=== PATIENT | female | born 1940 | race Caucasian/White ===

== ENCOUNTER 2017-05-28 22:27 | Emergency (ER) | payer MEDICARE, OTHER, SELFPAY ==
[2017-05-28 22:28] VITALS: BP 195/93; PULSE 111; RESP 16; TEMP 36.7; O2SAT 95; BMI 31.2
--- NOTE | 2017-05-28 22:53 | CT_ITS ---
STUDY: CT BRAIN WITHOUT CONTRAST REASON FOR EXAM: Female, 77 years old. Hypertension and headache RADIATION DOSAGE (If Supplied By Facility): CTDIvol = ( 44.99 ) mGy, DLP = ( 745.49 ) mGycm TECHNIQUE: Transaxial CT imaging of the brain was performed without administration of intravenous contrast material. Individualized dose optimization techniques were used for this CT. COMPARISON: None. FINDINGS: Normal soft tissue structures. Normal calvarium. Mild calcification of cavernous carotids. Mild atrophy and periventricular white matter ischemic changes.. Normal basal ganglia . Small hypoattenuated density in the right basal ganglia which may be consistent with old lacunar infarct. Normal brainstem. Normal cerebellum. Hypoattenuated appearance to sella turcica consistent with partial empty sella deformity There is no intracranial hemorrhage. There are no findings of an acute ischemic infarction. Postsurgical changes of the orbits. Normal visualized paranasal sinuses. CT/Brain/Head without Contrast IMPRESSION: Mild atrophy and periventricular white matter ischemic changes. Probable old right lacunar infarct. No evidence for acute bleed. If concern for acute infarct MRI recommended Electronically Signed: Elkin Lee MD at 23:27 EST , Service support ,
--- NOTE | 2017-05-28 22:53 | EKG12_ITS ---
Test Reason : HYPERTENSION Blood Pressure : / mmHG Vent. Rate : 103 BPM Atrial Rate : 103 BPM P-R Int : 206 ms QRS Dur : 082 ms QT Int : 332 ms P-R-T Axes : 049 -06 031 degrees QTc Int : 434 ms Sinus tachycardia Otherwise normal ECG Confirmed by VENTURA HUTCHINSON ([id number]), offline editor CHARAN LYNNE ([id number]) on 06/01/2017 9:36:32 AM Referred By: Confirmed By:VENTURA HUTCHINSON
--- NOTE | 2017-05-28 22:58 | NURSING ---
NO OLD EKG'S IN MUSE
[2017-05-28 23:07] LABS: Absolute Lymphocyte Count 0.72 X10^3/ul (0.83-4.51); Absolute Neutrophil Count 5.5 X10^3/uL (2.0-7.7); Basophil# 0.05 X10^3/uL; Basophil% 0.8 % (0-1); Eosinophil# 0.01 X10^3/uL; Eosinophils% 0.2 % (0-5); Hematocrit 44.7 % (37-47); Hemoglobin 14.5 g/dl (12.0-15.0); Lymphocyte # 0.72 X10^3/ul (4.0); Lymphocyte % 11.2 % (19-41); Mean Corp Hgb Conc 32.4 g/gl (32-36); Mean Corpuscular Hgb 31.6 pg (27.0-32.0); Mean Corpuscular Volume 97.4 fL (81-99); Mean Platelet Vol. 9.2 fl (6.2-12.0); Monocyte# 0.16 X10^3/uL; Monocyte% 2.5 % (0-10); Neutrophil # 5.46 X10^3/uL (2.7-7.7); Neutrophil % 85.1 % (47-70); Platelet Count 268 K/mm3 (150-450); RBC Distribution Width CV 13.8 % (11.6-14.6); Red Blood Count 4.59 M/mm3 (4.2-5.4); White Blood Count 6.4 K/mm3 (4.4-11.0)
[2017-05-28 23:08] LABS: POSITIVE COUNT NO; POSITIVE DIFFERENTIAL NO; POSITIVE MORPHOLOGY NO
--- NOTE | 2017-05-28 23:18 | RAD_ITS ---
STUDY: X-RAY CHEST REASON FOR EXAM: Female, 77 years old. Short of breath and dyspnea TECHNIQUE: PA and lateral COMPARISON: None. FINDINGS: The lungs are clear and expanded. There is no demonstrated pleural abnormality. Normal size heart. Normal mediastinum and nidia. Normal visualized pulmonary arteries. Calcified aortic arch and descending thoracic aorta. Mild dextroscoliosis and degenerative changes of the thoracic spine demonstrating multilevel chronic compression deformities.. Normal visualized ribs, clavicles, and shoulders. Postsurgical changes of the upper abdomen. RAD/Chest PA and Lateral IMPRESSION: No acute cardiopulmonary pathology Electronically Signed: Elkin Lee MD at 23:29 EST , Service support ,
[2017-05-28 23:21] LABS: Anion Gap 10 (5-15); BUN 9 mg/dL (7-18); BUN/Creat Ratio 11.1 RATIO (10-20); Chloride 105 mmol/L (98-107); Creatinine, Serum 0.81 mg/dL (0.55-1.02); EST Glomerular Filtration Rate 73 mL/min (>60); Est Glom Filt Rate - Afr Amer 88 mL/min (>60); Estimated Creatinine Clearance 49.43 ml/min; Glucose 137 mg/dL (70-110); Potassium 3.9 mmol/L (3.5-5.1); Sodium Level 140 mmol/L (136-145)
[2017-05-28 23:37] VITALS: BP 177/90; PULSE 96; RESP 20; O2SAT 94
[2017-05-28 23:39] LABS: Bacteria 0 SEEN /hpf (None Seen); Mucous, Urine 0 SEEN /hpf (<or=2+); White Blood Cells 0 SEEN /hpf (0-5)
[2017-05-28 23:41] LABS: Color, Urine Yellow (Yellow); Glucose, Dipstick Normal (Normal); Ketone-Dipstick 5 mg/dl (Negative); Leukocyte Esterase-Dipstick Negative /ul (Negative); Nitrite-Dipstick Negative (Negative); Occult Blood-Urine 10 /ul (Negative); Protein-Dipstick Negative (Negative); Urine Bilirubin Dipstick Negative (Negative); Urine Clarity Sl. Cloudy (Clear); Urine Urobilinogen Normal (Normal)
[2017-05-28 23:50] LABS: Red Blood Cells-Urine 0-5 SEEN /hpf (0-5); Squamous Epithelial Cells - UA 0-5 SEEN /hpf (5-10)
[2017-05-29 00:08] VITALS: BP 137/62; PULSE 87; RESP 20; O2SAT 96
--- NOTE | 2017-05-29 00:17 | ED.VISSUMM ---
- ER Visit Summary Date of Service: 05/29/17 Chief Complaint: Hypertension History of Present Illness: The patient is a 77 F who had a pain block this morning secondary to shingles pain. Patient states her blood pressure was elevated prior to the procedure but they went ahead and did the procedure. After arriving home her systolic pressure had come down to 144. She has checked her blood pressure multiple times tonight and it is been quite elevated again. She is complaining of a mild frontal headache and shortness of breath. Patient recently moved to this area from [place]. She does state that she would have episodes previously where her blood pressure was suddenly spiked. No definitive cause for this was ever found. Physical Examination: Blood pressure is 195/93, temperature 98.0, heart rate 111, respiratory rate 16, pulse ox 95% on room air. Patient sitting upright in bed no acute distress. Head and neck examination is normal. Heart is regular rate and rhythm. Lung sounds are clear. Abdomen is soft nontender. Neuro exam was normal with an NIH score of 0. Test Results: EKG is sinus tach at 103. No acute ischemia is noted. Two-view chest x-ray shows no acute pathology. CT the head shows mild atrophy. There is a probable old right lacunar infarct. CBC is normal. Chemistry studies are normal. Urinalysis normal with no protein. Troponin negative. Emergency Department Course and Treatment: Patient was observed. Repeat blood pressure is 137/62 without any intervention. Patient was advised to continue to monitor her blood pressure at home. Treatment Plan: [] Disposition: Discharge Impression: Hypertension, improved This note was generated with [employer] dictation software. It may contain incorrect words, spelling, and punctuation that were not noted in review of the chart prior to signing ED Disposition - Plan for ED Patient: Disposition: Home or Assisted Living Chief Complaint: Hypertension Instructions: ED HTN Established Referrals: Bjorn Soares MD [Primary Care Provider] - Morro Aguilera MD [STAFF PHYSICIAN] - As soon as possible
[2017-05-29 00:27] VITALS: BP 144/72; PULSE 87; RESP 20; O2SAT 95
== END 2017-05-29 00:27 | disposition home or self-care (01) ==
PROVIDERS: Emergency Provider Emergency Medicine; Family Provider Family Medicine; PCP Family Medicine
DX: I10 Essential (primary) hypertension (principal); R29.700 NIHSS score 0; I49.3 Ventricular premature depolarization; R01.1 Cardiac murmur, unspecified; Z90.89 Acquired absence of other organs; Z90.49 Acquired absence of other specified parts of digestive tract; Z90.710 Acquired absence of both cervix and uterus; Z87.891 Personal history of nicotine dependence; Z79.82 Long term (current) use of aspirin; Z79.899 Other long term (current) drug therapy
CPT/HCPCS: 70450; 71046; 80048; 81001; 84484; 85025; 93005; 99285; A4216

== ENCOUNTER → 2017-07-29 10:01 | Outpatient (CLI) | payer MEDICARE, OTHER, SELFPAY ==
[2017-07-29 10:10] VITALS: BP 144/74; PULSE 89; RESP 16; TEMP 36.6; O2SAT 94; BMI 28.3
== END ==
PROVIDERS: Family Provider Family Medicine; PCP Family Medicine; Visit Provider Specialist
DX: L50.0 Allergic urticaria (principal)
CPT/HCPCS: 96372; J2357

== ENCOUNTER → 2017-08-26 13:00 | Outpatient (CLI) | payer MEDICARE, OTHER, SELFPAY ==
[2017-08-26 13:03] VITALS: BP 117/53; PULSE 85; RESP 16; TEMP 36.4; O2SAT 96; BMI 29.2
== END ==
PROVIDERS: Family Provider Family Medicine; PCP Family Medicine; Visit Provider Specialist
DX: L50.0 Allergic urticaria (principal)
CPT/HCPCS: 96372; J2357

== ENCOUNTER 2017-09-03 17:00 | Emergency (ER) | payer MEDICARE, OTHER, SELFPAY ==
[2017-09-03 17:01] VITALS: BP 148/77; PULSE 74; RESP 16; TEMP 36.6; O2SAT 95; BMI 29.4
--- NOTE | 2017-09-03 17:14 | ED.VISSUMM ---
- ER Visit Summary Date of Service: 09/03/17 Chief Complaint: [Head injury] History of Present Illness: The patient is a 77 F [presents the emergency department with a head injury that occurred approximately 3:30 PM. Patient states that she was on a two-step stepstool cleaning some windows when she lost her balance and struck her head on the wall. Patient did not hit her head on the floor. Patient did not have loss of consciousness. Patient denies any nausea or vomiting. Patient really has no head pain other than intermittently she will get like a wave of a funny feeling in her head she states. Patient states that she is nervous and just wanted somebody to tell her that she was going to be okay being that she had a concussion a year ago. Patient drove herself to the emergency department and had no difficulty driving.] Physical Examination: HEENT-PERRLA, EOMI. Cranial nerves II through XII grossly intact. TMs clear. Mucous membranes moist. No adenopathy. No external evidence of trauma to her head or scalp. Patient has no tenderness to her scalp. No bony step-offs noted. Cardiovascular-regular rate and rhythm without murmur or ectopy Lungs-clear to auscultation, chest wall stable without crepitus or subcu emphysema Abdomen-normoactive bowel sounds, soft, nontender, no rebound or rigidity, no peritoneal signs. Neuro orzy-akpoxs-tawq and heel calhoun testing within normal limits, negative Romberg, negative pronator drift, fundi benign Extremities-intact ?4, normal range of motion, normal pulses, atraumatic[] Test Results: [None indicated] Emergency Department Course and Treatment: [At this point I reassured the patient felt her injury was benign as she is essentially asymptomatic and I do not feel imaging is indicated at this time.] Treatment Plan: [Patient advised to return if vomiting, severe headache, difficulty with balance, or speech, or condition should worsen in any way.] Disposition: [Discharged home in stable condition] Impression: [Closed head injury] This note was generated with [employer] dictation software. It may contain incorrect words, spelling, and punctuation that were not noted in review of the chart prior to signing ED Disposition - Plan for ED Patient: Chief Complaint: Head Injury Referrals: Bjorn Soares MD [Primary Care Provider] -
--- NOTE | 2017-09-03 17:16 | ED.DEP ---
ED Disposition - Plan for ED Patient: Chief Complaint: Head Injury Instructions: ED Head Injury Closed Referrals: Bjorn Soares MD [Primary Care Provider] - 3-5 Days
== END 2017-09-03 17:35 | disposition home or self-care (01) ==
LOC: ED 17:20
PROVIDERS: Emergency Provider Emergency Medicine; Family Provider Family Medicine; PCP Family Medicine
DX: S09.90XA Unspecified injury of head, initial encounter (principal); W22.01XA Walked into wall, initial encounter; Y93.9 Activity, unspecified; Y92.9 Unspecified place or not applicable; I10 Essential (primary) hypertension; Z90.89 Acquired absence of other organs; Z90.49 Acquired absence of other specified parts of digestive tract; Z90.710 Acquired absence of both cervix and uterus; Z79.82 Long term (current) use of aspirin; Z79.899 Other long term (current) drug therapy
CPT/HCPCS: 99282

== ENCOUNTER → 2017-09-23 11:37 | Outpatient (CLI) | payer MEDICARE, OTHER, SELFPAY ==
[2017-09-23 11:55] VITALS: BP 113/63; PULSE 84; RESP 18; TEMP 37; BMI 28.5
== END ==
PROVIDERS: Family Provider Family Medicine; PCP Family Medicine; Visit Provider Specialist
DX: L50.0 Allergic urticaria (principal)
CPT/HCPCS: 96372; J2357

== ENCOUNTER → 2017-10-21 13:30 | Outpatient (CLI) | payer MEDICARE, OTHER, SELFPAY ==
[2017-10-21 13:38] VITALS: BP 109/49; PULSE 80; RESP 16; TEMP 36.9; O2SAT 94
== END ==
PROVIDERS: Family Provider Family Medicine; PCP Family Medicine; Visit Provider Specialist
DX: L50.0 Allergic urticaria (principal)
CPT/HCPCS: 96372; J2357

== ENCOUNTER → 2017-11-18 12:32 | Outpatient (CLI) | payer MEDICARE, OTHER, SELFPAY ==
[2017-11-18 12:42] VITALS: BP 133/64; PULSE 63; RESP 16; TEMP 36.3; O2SAT 93; BMI 29.2
== END ==
PROVIDERS: Family Provider Family Medicine; PCP Family Medicine; Visit Provider Specialist
DX: L50.0 Allergic urticaria (principal)
CPT/HCPCS: 96372; J2357

== ENCOUNTER → 2017-12-16 11:53 | Outpatient (CLI) | payer MEDICARE, OTHER, SELFPAY ==
[2017-12-16 12:06] VITALS: BP 125/55; PULSE 80; RESP 16; TEMP 36.6; O2SAT 97; BMI 29.2
== END ==
PROVIDERS: Family Provider Family Medicine; PCP Family Medicine; Visit Provider Specialist
DX: L50.0 Allergic urticaria (principal)
CPT/HCPCS: 96372; J2357

== ENCOUNTER → 2018-01-13 12:53 | Outpatient (CLI) | payer MEDICARE, OTHER, SELFPAY ==
[2018-01-13 13:03] VITALS: BP 128/61; PULSE 79; RESP 18; TEMP 36.6; O2SAT 94; BMI 28.8
== END ==
PROVIDERS: Family Provider Family Medicine; PCP Internal Medicine; Visit Provider Specialist
DX: L50.0 Allergic urticaria (principal)
CPT/HCPCS: 96372; J2357

== ENCOUNTER → 2018-02-10 12:44 | Outpatient (CLI) | payer MEDICARE, OTHER, SELFPAY ==
[2018-02-10 12:50] VITALS: BP 116/89; PULSE 79; RESP 18; TEMP 36.6; O2SAT 95
== END ==
PROVIDERS: Family Provider Internal Medicine; PCP Internal Medicine; Referring Provider Specialist; Visit Provider Specialist
DX: L50.0 Allergic urticaria (principal)
CPT/HCPCS: 96372; J2357

== ENCOUNTER → 2018-03-10 12:59 | Outpatient (CLI) | payer MEDICARE, OTHER, SELFPAY ==
[2018-03-10 13:07] VITALS: BP 134/71; PULSE 74; RESP 16; TEMP 36.4; O2SAT 94; BMI 28.8
== END ==
PROVIDERS: Family Provider Internal Medicine; PCP Internal Medicine; Referring Provider Specialist; Visit Provider Specialist
DX: L50.0 Allergic urticaria (principal)
CPT/HCPCS: 96372; J2357

== ENCOUNTER → 2018-04-11 12:49 | Outpatient (CLI) | payer MEDICARE, OTHER, SELFPAY ==
[2018-04-11 13:15] VITALS: BP 139/68; PULSE 85; RESP 16; TEMP 36.8; O2SAT 95; BMI 28.1
== END ==
PROVIDERS: Family Provider Internal Medicine; PCP Internal Medicine; Referring Provider Specialist; Visit Provider Specialist
DX: L50.0 Allergic urticaria (principal)
CPT/HCPCS: 96372; J2357

== ENCOUNTER → 2018-05-09 13:05 | Outpatient (CLI) | payer MEDICARE, OTHER, SELFPAY ==
[2018-04-11 13:15] VITALS: BMI 28.1
[2018-05-09 13:31] VITALS: BP 141/64; PULSE 90; RESP 18; TEMP 36.3; BMI 27.3
== END ==
PROVIDERS: Family Provider Internal Medicine; PCP Internal Medicine; Referring Provider Specialist; Visit Provider Specialist
DX: L50.0 Allergic urticaria (principal)
CPT/HCPCS: 96372; J2357

== ENCOUNTER → 2018-06-06 13:59 | Outpatient (CLI) | payer MEDICARE, OTHER, SELFPAY ==
[2018-05-09 13:31] VITALS: BMI 27.3
[2018-06-06 14:09] VITALS: BP 139/62; PULSE 95; RESP 16; TEMP 36.3; O2SAT 97; BMI 28.1
== END ==
PROVIDERS: Family Provider Internal Medicine; PCP Internal Medicine; Referring Provider Specialist; Visit Provider Specialist
DX: L50.0 Allergic urticaria (principal)
CPT/HCPCS: 96372; J2357

== ENCOUNTER → 2018-07-05 11:03 | Outpatient (CLI) | payer MEDICARE, OTHER, SELFPAY ==
[2018-06-06 14:09] VITALS: BMI 28.1
[2018-07-05 11:13] VITALS: BP 139/53; PULSE 78; RESP 16; TEMP 36.6; O2SAT 96; BMI 28.3
== END ==
PROVIDERS: Family Provider Internal Medicine; PCP Internal Medicine; Referring Provider Specialist; Visit Provider Specialist
DX: L50.0 Allergic urticaria (principal)
CPT/HCPCS: 96372; J2357

== ENCOUNTER → 2018-08-09 12:56 | Outpatient (CLI) | payer MEDICARE, OTHER, SELFPAY ==
[2018-07-05 11:13] VITALS: BMI 28.3
[2018-08-09 13:02] VITALS: BP 132/56; PULSE 77; RESP 16; TEMP 36.8; O2SAT 96; BMI 27.6
== END ==
PROVIDERS: Family Provider Internal Medicine; PCP Internal Medicine; Referring Provider Specialist; Visit Provider Specialist
DX: L50.0 Allergic urticaria (principal)
CPT/HCPCS: 96372; J2357

== ENCOUNTER → 2018-09-12 | Outpatient (CLI) | payer MEDICARE, OTHER, SELFPAY ==
[2018-08-09 13:02] VITALS: BMI 27.6
[2018-09-12 14:34] VITALS: BP 119/52; PULSE 86; RESP 16; TEMP 36.1; O2SAT 98; BMI 27.4
== END | disposition home or self-care (01) ==
LOC: MEDOUTP 14:27
PROVIDERS: Family Provider Internal Medicine; PCP Internal Medicine; Referring Provider Specialist; Visit Provider Specialist
DX: L50.0 Allergic urticaria (principal)
CPT/HCPCS: 96372; J2357

== ENCOUNTER → 2018-10-07 | Outpatient (CLI) | payer MEDICARE, OTHER, SELFPAY ==
[2018-10-05 08:32] VITALS: BMI 28.6
[2018-10-07 12:33] LABS: AST(SGOT) 19 U/L (15-37); Alanine Aminotransfer ALT/SGPT 22 U/L (13-56); Albumin, Serum 3.5 g/dL (3.2-5.0); Alkaline Phosphatase 80 U/L (45-117); Bilirubin, Direct 0.16 mg/dL (0.00-0.30); Cholesterol 151 mg/dL (200); Globulin 3.6 g/dL (2.2-4.2); High Density Lipoprotein 57 mg/dL; Protein, Total 7.1 g/dL (6.4-8.2); Triglycerides 97 mg/dL; Very Low Density Lipoprotein 19 mg/dL (5-40)
== END | disposition home or self-care (01) ==
LOC: LAB 10:53
PROVIDERS: Family Provider Family Medicine; PCP Family Medicine; Referring Provider Internal Medicine Cardiovascular Disease; Visit Provider Internal Medicine Cardiovascular Disease
DX: E78.5 Hyperlipidemia, unspecified (principal)
CPT/HCPCS: 36415; 80061; 80076

== ENCOUNTER → 2018-10-11 | Outpatient (CLI) | payer MEDICARE, OTHER, SELFPAY ==
[2018-09-12 14:34] VITALS: BMI 27.4
[2018-10-05 08:32] VITALS: BMI 28.6
[2018-10-11 14:01] VITALS: BP 130/55; PULSE 79; RESP 18; TEMP 36.6; O2SAT 95; BMI 28.3
== END | disposition home or self-care (01) ==
LOC: MEDOUTP 13:55
PROVIDERS: Family Provider Internal Medicine; PCP Internal Medicine; Referring Provider Specialist; Visit Provider Specialist
DX: L50.0 Allergic urticaria (principal)
CPT/HCPCS: 96372; J2357

== ENCOUNTER 2018-10-18 19:21 | Emergency (ER) | payer MEDICARE, OTHER, SELFPAY ==
[2018-10-11 14:01] VITALS: BMI 28.3
[2018-10-18 19:22] VITALS: BP 145/85; PULSE 115; RESP 18; TEMP 36.4; O2SAT 94; BMI 28.8
--- NOTE | 2018-10-18 19:51 | CT_ITS ---
STUDY: CT BRAIN WITHOUT CONTRAST REASON FOR EXAM: Female, 78 years old. Trauma RADIATION DOSAGE (If Supplied By Facility): CTDIvol = ( 44.99 ) mGy, DLP = ( 745.49 ) mGycm TECHNIQUE: Transaxial CT imaging of the brain was performed without administration of intravenous contrast material. Individualized dose optimization techniques were used for this CT. COMPARISON: Previous study 05/28/2017 FINDINGS: Normal soft tissue structures. Normal calvarium. Normal size ventricles and extra-axial spaces for the patient's age. Normal white matter tracts of the cerebral hemispheres. There is an old lacunar infarct of the right basal ganglia. Normal brainstem. Normal cerebellum. There is no intracranial hemorrhage. There are no findings of an acute ischemic infarction. Normal visualized paranasal sinuses. CT/Brain/Head without Contrast IMPRESSION: Old lacunar infarct of the right basal ganglia. There is no intracranial hemorrhage or calvarial fracture. Electronically Signed: Crescencio Munoz MD at 20:37 EDT , Service support ,
--- NOTE | 2018-10-18 19:51 | CT_ITS ---
STUDY: CT CERVICAL SPINE WITHOUT CONTRAST REASON FOR EXAM: Female, 78 years old. Trauma RADIATION DOSAGE (If Supplied By Facility): CTDIvol = ( 21.23 ) mGy, DLP = ( 388.31 ) mGycm TECHNIQUE: High resolution transaxial imaging was performed without contrast material. Sagittal and coronal images were reconstructed. Individualized dose optimization techniques were used for this CT. COMPARISON: None FINDINGS: Normal craniovertebral junction. There are degenerative changes of the anterior atlantoaxial articulation. Normal odontoid process. There is straightening of the normal cervical lordosis. There is endplate spondylosis of C5-C7. C2-3: There are degenerative facet changes on the right. There is no central canal stenosis or foraminal narrowing. Disc spacing is normal. C3-4: There are hypertrophic degenerative facet changes on the left with moderately severe left foraminal narrowing. Disc spacing is normal. There is no central canal stenosis. C4-5: There are bilateral hypertrophic facet changes. There is mild disc space narrowing. There is mild bilateral foraminal narrowing. There is no central canal stenosis. C5-6: There is severe disc space narrowing. The facets are within normal limits. There is severe foraminal narrowing on the left. There is no central canal stenosis. C6-7: There is severe disc space narrowing. There are mild bilateral degenerative facet changes. There is moderately severe foraminal narrowing on the right. There is no central canal stenosis. C7-T1: There are mild bilateral degenerative facet changes. There is no central canal stenosis or foraminal narrowing. Normal visualized soft tissue structures. CT/Spine Cervical without Contras IMPRESSION: Multilevel degenerative changes, as described above. There is no evidence of fracture or subluxation. Electronically Signed: Crescencio Munoz MD at 20:47 EDT , Service support ,
--- NOTE | 2018-10-18 19:52 | ED.DCSUM_ITS ---
- ER Visit Summary Date of Service: 10/18/18 Chief Complaint: Fall History of Present Illness: The patient is a 78 F who presents after a fall that occurred today. Patient fell off of a stool and hit her head. Patient denies any loss of consciousness. Patient states she hit her neck on the leg of the table. Patient denies any paresthesias or weakness. Patient was ambulatory after the fall. Patient describes the pain as a dull pain in her head and neck. Patient denies any nausea or vomiting. Patient denies any paresthesias or weakness. Patient denies any visual changes. Vision states she has had concussions in the past and is concerned with a head injury. Physical Examination: Vital signs are stable. Patient is afebrile. Patient is in no acute distress. Oral mucosa is pink and moist. Neck is supple. Trachea is midline. There is no JVD noted. Pupils are equal, round, and reactive to light. Extraocular muscles are intact. There is no nystagmus noted. Cranial nerves II through XII are intact. Strength is 5/5 bilateral knee upper and lower extremities. There are no sensory deficits noted. Heart was regular rate and rhythm. There is a grade 3/6 systolic murmur. Lungs are clear and equal bilateral. Abdomen is soft and nontender. Test Results: CT scan of the brain and cervical spine were obtained. There is no acute intracranial abnormality noted. There is no cervical spine fracture or subluxation noted. Emergency Department Course and Treatment: Patient was instructed to get plenty of rest. Patient was instructed to take Tylenol or ibuprofen as needed for headaches. Patient was instructed to follow-up with her primary care physician in 5 to 7 days. Patient understood and was agreeable with the plan. All questions were answered. Disposition: Discharge home Impression: 1. Closed head injury 2. Acute cervical strain This note was generated with [employer] dictation software. It may contain incorrect words, spelling, and punctuation that were not noted in review of the chart prior to signing ED Disposition - Plan for ED Patient: Disposition: Home or Assisted Living Diagnosis: Closed head injury, Cervical strain, acute Instructions: FALL, Mechanical, HEAD INJURY, No Wake-Up (Adult) Referrals: Bjorn Soares MD [Primary Care Provider] - 5-7 Days
[2018-10-18 21:33] VITALS: BP 102/62; PULSE 91; RESP 16; O2SAT 98
== END 2018-10-18 21:34 | disposition home or self-care (01) ==
PROVIDERS: Emergency Provider Emergency Medicine; Family Provider Family Medicine; PCP Family Medicine
DX: S09.90XA Unspecified injury of head, initial encounter (principal); S16.1XXA Strain of muscle, fascia and tendon at neck level, initial encounter; R01.1 Cardiac murmur, unspecified; W08.XXXA Fall from other furniture, initial encounter; Y93.9 Activity, unspecified; Y92.9 Unspecified place or not applicable; I10 Essential (primary) hypertension; Z79.899 Other long term (current) drug therapy
CPT/HCPCS: 70450; 72125; 99282

== ENCOUNTER → 2018-11-08 | Outpatient (CLI) | payer MEDICARE, OTHER, SELFPAY ==
[2018-10-11 14:01] VITALS: BMI 28.3
[2018-10-18 19:22] VITALS: BMI 28.8
[2018-11-08 15:31] VITALS: BP 115/53; PULSE 76; RESP 16; TEMP 36.8; O2SAT 97; BMI 27.6
== END | disposition home or self-care (01) ==
LOC: MEDOUTP 15:25
PROVIDERS: Family Provider Internal Medicine; PCP Internal Medicine; Referring Provider Specialist; Visit Provider Specialist
DX: L50.0 Allergic urticaria (principal)
CPT/HCPCS: 96372; J2357

== ENCOUNTER → 2018-12-06 | Outpatient (CLI) | payer MEDICARE, OTHER, SELFPAY ==
[2018-11-08 15:31] VITALS: BMI 27.6
[2018-12-06 14:58] VITALS: BP 136/57; PULSE 78; RESP 16; TEMP 36.6; O2SAT 98; BMI 27.3
== END | disposition home or self-care (01) ==
LOC: MEDOUTP 14:41
PROVIDERS: Family Provider Internal Medicine; PCP Internal Medicine; Referring Provider Specialist; Visit Provider Specialist
DX: L50.0 Allergic urticaria (principal)
CPT/HCPCS: 96372; J2357

== ENCOUNTER → 2018-12-26 | Outpatient (CLI) | payer MEDICARE, OTHER, SELFPAY ==
[2018-12-26 14:05] VITALS: BMI 27.3
[2018-12-26 15:33] LABS: Absolute Lymphocyte Count 1.31 X10^3/uL (0.83-4.51); Absolute Neutrophil Count 3.1 X10^3/uL (2.0-7.7); Basophil# 0.08 X10^3/uL; Basophil% 1.4 % (0-1); Eosinophil# 0.55 X10^3/uL; Eosinophils% 9.6 % (0-5); Hematocrit 42.9 % (37-47); Hemoglobin 14.5 g/dL (12.0-15.0); Lymphocyte # 1.31 X10^3/ul (4.0); Lymphocyte % 22.8 % (19-41); Mean Corp Hgb Conc 33.8 g/dL (32-36); Mean Corpuscular Hgb 31.5 pg (27.0-32.0); Mean Corpuscular Volume 93.1 fL (81-99); Mean Platelet Vol. 9.4 fl (6.2-12.0); Monocyte# 0.64 X10^3/uL; Monocyte% 11.1 % (0-10); NRBC Flagged by Analyzer 0 % (0-5); Neutrophil # 3.14 X10^3/uL (2.7-7.7); Neutrophil % 54.8 % (47-70); Platelet Count 255 K/mm3 (150-450); RBC Distribution Width CV 13.1 % (11.6-14.6); RBC Distribution Width SD 44.6 fl (35.1-43.9); Red Blood Count 4.61 M/mm3 (4.2-5.4); White Blood Count 5.7 K/mm3 (4.4-11.0)
[2018-12-26 15:52] LABS: Thyroid Stim Hormone (TSH) 0.85 uIU/mL (0.358-3.74)
== END | disposition home or self-care (01) ==
LOC: PAVLAB 14:38
PROVIDERS: Nurse Practitioner Women's Health; Family Provider Family Medicine; PCP Family Medicine; Referring Provider Obstetrics & Gynecology; Visit Provider Obstetrics & Gynecology
DX: R23.2 Flushing (principal)
CPT/HCPCS: 36415; 84443; 85025

== ENCOUNTER → 2019-01-03 | Outpatient (CLI) | payer MEDICARE, OTHER, SELFPAY ==
[2018-12-06 14:58] VITALS: BMI 27.3
[2018-12-26 14:05] VITALS: BMI 27.3
[2019-01-03 14:06] VITALS: BP 125/65; PULSE 89; RESP 16; TEMP 36.8; O2SAT 94; BMI 28.3
== END | disposition home or self-care (01) ==
LOC: MEDOUTP 13:59
PROVIDERS: Family Provider Internal Medicine; PCP Internal Medicine; Referring Provider Specialist; Visit Provider Specialist
DX: L50.0 Allergic urticaria (principal)
CPT/HCPCS: J2357

== ENCOUNTER → 2019-01-31 12:49 | Outpatient (CLI) | payer MEDICARE, OTHER, SELFPAY ==
[2019-01-03 14:06] VITALS: BMI 28.3
[2019-01-31 13:15] VITALS: BP 143/80; PULSE 69; RESP 16; O2SAT 98; BMI 28.0
== END ==
PROVIDERS: Family Provider Internal Medicine; PCP Internal Medicine; Referring Provider Specialist; Visit Provider Specialist
DX: L50.0 Allergic urticaria (principal)
CPT/HCPCS: 96372; J2357

== ENCOUNTER → 2019-02-28 12:56 | Outpatient (CLI) | payer MEDICARE, OTHER, SELFPAY ==
[2019-01-31 13:15] VITALS: BMI 28.0
[2019-02-28 13:06] VITALS: BP 129/80; PULSE 80; RESP 16; TEMP 36.6; O2SAT 95; BMI 29.2
== END ==
PROVIDERS: Family Provider Internal Medicine; PCP Internal Medicine; Referring Provider Specialist; Visit Provider Specialist
DX: L50.0 Allergic urticaria (principal)
CPT/HCPCS: 96372; J2357

== ENCOUNTER → 2019-03-28 13:01 | Outpatient (CLI) | payer MEDICARE, OTHER, SELFPAY ==
[2019-02-28 13:06] VITALS: BMI 29.2
[2019-03-28 13:10] VITALS: BP 140/66; PULSE 81; RESP 16; TEMP 36.8; BMI 28.3
== END ==
PROVIDERS: Family Provider Internal Medicine; PCP Internal Medicine; Referring Provider Specialist; Visit Provider Specialist
DX: L50.0 Allergic urticaria (principal)
CPT/HCPCS: 96372; J2357

== ENCOUNTER → 2019-04-27 12:56 | Outpatient (CLI) | payer MEDICARE, OTHER, SELFPAY ==
[2019-03-28 13:10] VITALS: BMI 28.3
[2019-04-27 13:01] VITALS: BP 151/72; PULSE 83; RESP 18; TEMP 36.3; BMI 27.4
== END ==
PROVIDERS: Family Provider Internal Medicine; PCP Internal Medicine; Referring Provider Specialist; Visit Provider Specialist
DX: L50.0 Allergic urticaria (principal)
CPT/HCPCS: 96372; J2357

== ENCOUNTER → 2019-05-17 14:00 | Outpatient (CLI) | payer MEDICARE, OTHER, SELFPAY ==
[2019-04-27 13:01] VITALS: BMI 27.4
[2019-05-16 11:42] VITALS: BMI 28.6
--- NOTE | 2019-05-17 14:04 | MRI_ITS ---
STUDY: MRI BRAIN WITH AND WITHOUT CONTRAST REASON FOR EXAM: Female, 79 years old. VISUAL FIELD DEFECT RIGHT EYE TECHNIQUE: Standardized multiplanar fat and water weighted pulse sequences were obtained. IV Dotarem 15ml was administered for the contrast portion of the examination. COMPARISON: CT BRAIN-May 28, 2017; CT BRAIN-October 18, 2017 FINDINGS: Normal size of the ventricles and extra-axial spaces for the patient''s age. There are a limited number of small white matter hyperintensities, distributed throughout the deep white matter tracts of the cerebral hemispheres, consistent with mild chronic white matter ischemic changes. There is confluent periventricular hyperintensity cloaking the lateral ventricles, consistent with periventricular leukoaraiosis. There is no evidence for recent intracranial ischemia or other cause of cytotoxic edema on diffusion weighted imaging (DWI). Normal T2* images of the brain without demonstrated susceptibility artifact. There is no demonstrated hemosiderin stain. There is a prominent perivascular spaces (PVS) involving the right basal ganglia, measuring 8 mm, which has been interpreted on the prior CT examinations of May 28, 2017 and October 18, 2018 as lacunar infarction. Normal thalami. There is no extra-axial fluid accumulation. Normal flow voids within the major intracranial circulation suggesting patency by spin echo criteria. Normal venous enhancement. There is no enhancing intra-axial or extra-axial abnormality. Normal sella turcica, pituitary gland, infundibular stalk, optic chiasm and hypothalamus. Normal tectal plate and pineal gland. Normal midbrain, mary and medulla. Normal cerebellum. Normal basal cisterns. Normal bilateral temporal bones. Normal bilateral internal auditory canals. There are bilateral ocular lens implants with otherwise normal intraorbital contents. Normal optic nerve sheath complex with normal intraconal and extraconal spaces. Normal visualized paranasal sinuses. Normal calvarium and skull base. Normal visualized soft tissue structures. Normal visualized upper cervical spine. MRI/Brain W/WO Contrast IMPRESSION: 1. Minimal small vessel disease of the supratentorial brain. 2. Prominent perivascular space of the right basal ganglia, which is been interpreted as a lacunar infarction on the prior CT examinations of May 28, 2017 and October 18, 2018. 3. No acute, evolving or remote cortical or lacunar infarction. 4. Status post bilateral ocular lens implants. Electronically Signed: Eliu Starkey DO at 16:34 EST Tel , Service support ,
[2019-05-17 14:40] LABS: CREATININE FINGERSTICK 0.7 mg/dL (0.55-1.02)
== END ==
PROVIDERS: Family Provider Internal Medicine; PCP Internal Medicine; Referring Provider Ophthalmology; Visit Provider Ophthalmology
DX: H53.40 Unspecified visual field defects (principal)
CPT/HCPCS: 70553; A9575

== ENCOUNTER → 2019-05-25 12:54 | Outpatient (CLI) | payer MEDICARE, OTHER, SELFPAY ==
[2019-04-27 13:01] VITALS: BMI 27.4
[2019-05-16 11:42] VITALS: BMI 28.6
[2019-05-25 13:01] VITALS: BP 121/68; PULSE 86; RESP 16; TEMP 36.7; BMI 26.6
== END ==
PROVIDERS: Family Provider Internal Medicine; PCP Internal Medicine; Referring Provider Specialist; Visit Provider Specialist
DX: L50.0 Allergic urticaria (principal)
CPT/HCPCS: 96372; J2357

== ENCOUNTER → 2019-06-21 13:01 | Outpatient (CLI) | payer MEDICARE, OTHER, SELFPAY ==
[2019-05-16 11:42] VITALS: BMI 28.6
[2019-05-25 13:01] VITALS: BMI 26.6
[2019-06-21 13:05] VITALS: BP 111/64; PULSE 68; RESP 16; TEMP 36.6; O2SAT 98; BMI 27.4
== END ==
PROVIDERS: PCP Internal Medicine; Referring Provider Specialist; Visit Provider Specialist
DX: L50.0 Allergic urticaria (principal)
CPT/HCPCS: 96372; J2357

== ENCOUNTER 2019-07-17 16:18 | Emergency (ER) | payer MEDICARE, OTHER, SELFPAY ==
[2019-06-21 13:05] VITALS: BMI 27.4
[2019-07-17 16:19] VITALS: BP 150/83; PULSE 91; RESP 18; TEMP 36.9; O2SAT 99; BMI 28.3
--- NOTE | 2019-07-17 16:27 | RAD_ITS ---
STUDY: X-RAY - LEFT WRIST REASON FOR EXAM: Female, 79 years old. FALL, PAIN TECHNIQUE: 3 view(s) of the wrist were obtained. COMPARISON: None. FINDINGS: Normal visualized distal radius and ulna. Normal radiocarpal articulation. Normal distal radioulnar articulation. Normal carpal bones. Normal carpal articulations. Normal carpometacarpal articulation of the thumb. Normal second through fifth carpometacarpal articulations. Normal visualized metacarpal bones. The soft tissue structures are unremarkable. RAD/Wrist min 3 Views IMPRESSION: Normal x-ray examination of the wrist. Electronically Signed: Elkin Lee MD at 18:09 EDT , Service support ,
--- NOTE | 2019-07-17 16:27 | CT_ITS ---
STUDY: CT BRAIN WITHOUT CONTRAST REASON FOR EXAM: Female, 79 years old. FALL, HIT TOP OF HEAD RADIATION DOSAGE (If Supplied By Facility): CTDIvol = ( 44.99 ) mGy, DLP = ( 779.24 ) mGycm TECHNIQUE: Transaxial CT imaging of the brain was performed without administration of intravenous contrast material. Individualized dose optimization techniques were used for this CT. COMPARISON: October 18, 2018. FINDINGS: Normal soft tissue structures. Normal calvarium. Calcification of cavernous carotids. Mild atrophy and moderate periventricular white matter ischemic changes. Prominent perivascular space in the right medial temporal lobe Normal basal ganglia and thalami. Normal brainstem. Normal cerebellum. Empty sella deformity likely of no significance There is no intracranial hemorrhage. There are no findings of an acute ischemic infarction. There are postsurgical changes of the orbits Normal visualized paranasal sinuses. CT/Brain/Head without Contrast IMPRESSION: Moderate periventricular white matter ischemic changes. No evidence for acute intracranial bleed Electronically Signed: Elkin Lee MD at 17:47 EDT , Service support ,
--- NOTE | 2019-07-17 16:27 | RAD_ITS ---
STUDY: X-RAY - PELVIS AND LEFT HIP REASON FOR EXAM: Female, 79 years old. FALL, PAIN TECHNIQUE: 3 views of the pelvis and hip. COMPARISON: None. FINDINGS: There is a non-specific bowel gas pattern. Normal visualized soft tissue structures. Normal bilateral iliac wings, sacroiliac joints and visualized sacrum. Normal bilateral superior and inferior pubic rami. Normal pubic symphysis. Normal bilateral ischial tuberosities. Normal visualized femoral head. Mild acetabular spurring Normal hip joint. RAD/HIP, UNI W/ Pelvis 2-3 Views IMPRESSION: Mild degenerative changes of the left hip. No evidence for acute hip or pelvic fracture Electronically Signed: Elkin Lee MD at 18:06 EDT , Service support ,
--- NOTE | 2019-07-17 16:38 | ED.DCSUM_ITS ---
History of Present Illness Chief Complaint: Fall Informant: Patient Onset: Today Context: Sudden Onset Timing: Continuous Current Severity: Moderate Maximum Severity: Moderate Narrative: The patient is an 79-year-old female that presents to the emergency department with head injury status post mechanical fall. Patient states that she was in her home. She states she got up quickly to do something, lost her balance, and fell. She struck her head against the wall but did not lose consciousness. She also struck her left wrist and right hip. She has been able to ambulate. She denies any weakness, numbness, or lightheadedness. She denies any nausea or vomiting. She is not on anticoagulants. She did not lose consciousness. She is otherwise been in her normal state of health. Prior similar symptoms: No Recent Illness/Hospitalization: No Past Medical History - Allergies and Home Meds Allergies/Adverse Reactions: Allergies oxycodone [From Percocet] Adverse Reaction (Verified 07/17/19 16:19) Upset Stomach Primary Care Physician: Morro Aguilera MD [Primary Care Provider] - Prior records reviewed: Yes Past Medical History: - - Hypertension, hyperlipidemia Surgical History: noncontributory Smoking Status: Former smoker Review of Systems General: Denies: Chills, Fever, Sweats Eyes: Denies: Visual changes - bilaterally, Diplopia ENT: Denies: Rhinorrhea, Sore throat Cardiovascular: Denies: Chest pain, Palpitations Respiratory: Denies: Dyspnea, Cough, Dyspnea on exertion Gastrointestinal: Denies: Abdominal pain, Nausea, Vomiting, Diarrhea, Melena, Hematochezia Genitourinary: Denies: Dysuria, Hematuria, Frequency Musculoskeletal: Denies: Back pain, Extremity Pain Skin: Denies: Rash, Wounds Neurological: Denies: Headache, Weakness, Numbness Physical Exam Vital Signs/Narrative: Vital Signs Temp Pulse Resp BP Pulse Ox 07/17/19 16:19 98.4 F 91 18 150/83 H 99 Inital Vital Signs reviewed: Yes General: Well nourished, Well developed, No Acute Distress Head: Normocephalic, Atraumatic Eyes: Perrl, EOMI ENT: Moist mucous membranes, No rhinorrhea Neck: Supple, Nontender Cardiovascular: Regular rate, Regular rhythm, No murmurs Respiratory: No distress, CTA bilaterally, Chest nontender Abdomen: Soft, Nontender, Nondistended, Normal bowel sounds Back: Nontender, Normal Inspection Extremities: No edema, Tenderness - Tenderness over left wrist. No step-off. Superficial abrasion. Normal pulses. Slight bruising over right lower pelvis without abdominal pain or step-off. Skin: Normal color, No rash Neurological: Alert, Oriented x3, Cranial nerves II-XII grossly intact, Normal Strength, Normal Sensation Psychological: Normal affect, Normal Mood Diagnostic/Tx/Re-eval Clinical Impression(s) from Imaging Studies Brain CT 07/17/19 16:27 IMPRESSION: Moderate periventricular white matter ischemic changes. No evidence for acute intracranial bleed Electronically Signed: Elkin Lee MD at 17:47 EDT , Service support , Hip/Pelvis X-Ray 07/17/19 16:27 IMPRESSION: Mild degenerative changes of the left hip. No evidence for acute hip or pelvic fracture Electronically Signed: Elkin Lee MD at 18:06 EDT , Service support , Wrist X-Ray 07/17/19 16:27 IMPRESSION: Normal x-ray examination of the wrist. Electronically Signed: Elkin Lee MD at 18:09 EDT , Service support , Cervical Spine CT 07/17/19 17:19 IMPRESSION: No evidence for acute fracture or subluxation.. Moderate spondylosis most severe at C5-6 and C6-7 Electronically Signed: Elkin Lee MD at 18:01 EDT , Service support , - Medical Decision Making The patient presents with mechanical fall. She struck her head, hip, and wrist. CT was obtained of the head and neck. This is unremarkable for acute process. X-rays were obtained of the wrist and pelvis along with the right hip. These are also unremarkable for acute process. Patient was counseled to take Tylenol. She did request 1 [place] while here. At this point, I do feel that she is safe for outpatient therapy. The patient will be discharged home. Impression 1. Scalp contusion status post mechanical fall 2. Left wrist contusion 3. Right hip contusion ED Disposition - Plan for ED Patient: Instructions: FALL, Mechanical Referrals: Morro Aguilera MD [Primary Care Provider] -
--- NOTE | 2019-07-17 17:19 | CT_ITS ---
STUDY: CT CERVICAL SPINE WITHOUT CONTRAST REASON FOR EXAM: Female, 79 years old. FALL, HIT TOP OF HEAD RADIATION DOSAGE (If Supplied By Facility): CTDIvol = ( 21.42 ) mGy, DLP = ( 399.79 ) mGycm TECHNIQUE: High resolution transaxial imaging was performed without contrast material. Sagittal and coronal images were reconstructed. Individualized dose optimization techniques were used for this CT. COMPARISON: None FINDINGS: Normal craniovertebral junction. Normal anterior atlantoaxial articulation. Normal odontoid process. Decreased cervical lordosis. Normal vertebral bodies and posterior osseous elements. C2-3: Normal endplates. Normal disc height and morphology. Normal central canal and intervertebral neuroforamina. C3-4: Normal endplates. Normal disc height and morphology. Normal central canal. Moderate to severe left neural foraminal stenosis secondary to bony hypertrophy. C4-5: Mild endplate spurring.. Normal disc height and morphology. Normal central canal and intervertebral neuroforamina. C5-6: Narrowed disc space and endplate spurring.. No focal disc protrusion. Normal central canal. Severe left neuroforaminal stenosis secondary to bony hypertrophy C6-7: Narrowed disc space and endplate spurring. No focal disc protrusion. Normal central canal. Severe right neuroforaminal stenosis secondary to bony hypertrophy.. C7-T1: Normal endplates. Normal disc height and morphology. Normal central canal and intervertebral neuroforamina. Normal visualized soft tissue structures. CT/Spine Cervical without Contras IMPRESSION: No evidence for acute fracture or subluxation.. Moderate spondylosis most severe at C5-6 and C6-7 Electronically Signed: Elkin Lee MD at 18:01 EDT , Service support ,
[2019-07-17 18:18] VITALS: BP 156/76; PULSE 78; RESP 16
[2019-07-17] MEDS: HYDROcodone Bitartrate/Apap 5/325 Tablet PO (18:19)
== END 2019-07-17 18:24 | disposition home or self-care (01) ==
LOC: ED 16:56
PROVIDERS: Emergency Provider Emergency Medicine; PCP Internal Medicine
DX: S00.03XA Contusion of scalp, initial encounter (principal); S60.212A Contusion of left wrist, initial encounter; S60.812A Abrasion of left wrist, initial encounter; S70.01XA Contusion of right hip, initial encounter; W01.0XXA Fall on same level from slipping, tripping and stumbling without subsequent striking against object, initial encounter; Y93.9 Activity, unspecified; Y92.9 Unspecified place or not applicable; I10 Essential (primary) hypertension; E78.5 Hyperlipidemia, unspecified; Z79.899 Other long term (current) drug therapy; Z87.891 Personal history of nicotine dependence
CPT/HCPCS: 70450; 72125; 73110; 73502; 99283

== ENCOUNTER → 2019-08-03 13:47 | Outpatient (CLI) | payer MEDICARE, OTHER, SELFPAY ==
[2019-07-17 16:19] VITALS: BMI 28.3
[2019-08-03 14:00] VITALS: BP 82/40; PULSE 54; RESP 18; TEMP 36.3; O2SAT 97; BMI 26.6
[2019-08-03] MEDS: Omalizumab 150 MG/ML Syringe SQ ×2 (14:20→14:21)
[2019-08-03 14:55] VITALS: BP 109/43; PULSE 54; RESP 18
== END ==
PROVIDERS: PCP Internal Medicine; Referring Provider Specialist; Visit Provider Specialist
DX: L50.0 Allergic urticaria (principal)
CPT/HCPCS: 96372; J2357

== ENCOUNTER → 2019-09-05 14:11 | Outpatient (CLI) | payer MEDICARE, OTHER, SELFPAY ==
[2019-08-03 14:00] VITALS: BMI 26.6
[2019-09-05 14:15] VITALS: BP 111/45; PULSE 70; RESP 18; TEMP 36.1; O2SAT 96; BMI 27.1
[2019-09-05] MEDS: Omalizumab 150 MG/ML Syringe SQ ×2 (14:20)
== END ==
PROVIDERS: PCP Internal Medicine; Referring Provider Specialist; Visit Provider Specialist
DX: L50.0 Allergic urticaria (principal)
CPT/HCPCS: 96372; J2357

== ENCOUNTER → 2019-10-03 13:51 | Outpatient (CLI) | payer MEDICARE, OTHER, SELFPAY ==
[2019-08-03 14:00] VITALS: BMI 26.6
[2019-09-05 14:15] VITALS: BMI 27.1
[2019-10-03 13:58] VITALS: BP 120/53; PULSE 63; RESP 18; TEMP 36.6; O2SAT 96; BMI 27.4
[2019-10-03] MEDS: Omalizumab 150 MG/ML Syringe SQ ×2 (14:04)
== END ==
PROVIDERS: PCP Internal Medicine; Referring Provider Specialist; Visit Provider Specialist
DX: L50.0 Allergic urticaria (principal)
CPT/HCPCS: 96372; J2357

== ENCOUNTER → 2019-11-07 13:46 | Outpatient (CLI) | payer MEDICARE, OTHER, SELFPAY ==
[2019-09-05 14:15] VITALS: BMI 27.1
[2019-10-05 13:32] VITALS: BMI 27.4
[2019-11-07 14:06] VITALS: BP 119/57; PULSE 63; RESP 16; TEMP 36.3; O2SAT 100; BMI 27.4
[2019-11-07] MEDS: Omalizumab 150 MG/ML Syringe SQ ×2 (14:17→14:21)
== END ==
PROVIDERS: PCP Internal Medicine; Referring Provider Specialist; Visit Provider Specialist
DX: L50.0 Allergic urticaria (principal)
CPT/HCPCS: 96372; J2357

== ENCOUNTER → 2019-12-05 12:58 | Outpatient (CLI) | payer MEDICARE, OTHER, SELFPAY ==
[2019-10-05 13:32] VITALS: BMI 27.4
[2019-11-07 14:06] VITALS: BMI 27.4
[2019-12-05] MEDS: Omalizumab 150 MG/ML Syringe SQ ×2 (13:14→13:16)
[2019-12-05 13:22] VITALS: BP 144/51; PULSE 64; RESP 16; TEMP 36.4; O2SAT 100; BMI 27.4
[2019-12-05 13:40] VITALS: BP 144/51; PULSE 64; RESP 16; TEMP 36.4; O2SAT 100
== END ==
PROVIDERS: PCP Internal Medicine; Referring Provider Specialist; Visit Provider Specialist
DX: L50.0 Allergic urticaria (principal)
CPT/HCPCS: 96372; J2357

== ENCOUNTER → 2020-01-02 14:07 | Outpatient (CLI) | payer MEDICARE, OTHER, SELFPAY ==
[2019-11-07 14:06] VITALS: BMI 27.4
[2019-12-05 13:22] VITALS: BMI 27.4
[2020-01-02 14:23] VITALS: BP 121/54; PULSE 84; RESP 16; TEMP 36.3; O2SAT 93; BMI 26.5
[2020-01-02] MEDS: Omalizumab 150 MG/ML Syringe SQ ×2 (14:27→14:29)
[2020-01-02 14:43] VITALS: BP 120/60; PULSE 77; RESP 16; O2SAT 93; BMI 26.5
== END ==
PROVIDERS: PCP Internal Medicine; Referring Provider Internal Medicine; Visit Provider Specialist
DX: L50.0 Allergic urticaria (principal)
CPT/HCPCS: 96372; J2357

== ENCOUNTER → 2020-02-01 13:53 | Outpatient (CLI) | payer MEDICARE, OTHER, SELFPAY ==
[2019-12-05 13:22] VITALS: BMI 27.4
[2020-01-02 14:43] VITALS: BMI 26.5
[2020-02-01 14:04] VITALS: BP 118/62; PULSE 69; RESP 16; TEMP 36.9; O2SAT 96; BMI 27.3
[2020-02-01] MEDS: Omalizumab 150 MG/ML Syringe SQ ×2 (14:13→14:20)
== END ==
PROVIDERS: PCP Internal Medicine; Referring Provider Specialist; Visit Provider Specialist
DX: L50.0 Allergic urticaria (principal)
CPT/HCPCS: 96372; J2357

== ENCOUNTER → 2020-03-07 13:25 | Outpatient (CLI) | payer MEDICARE, OTHER, SELFPAY ==
[2020-01-02 14:43] VITALS: BMI 26.5
[2020-02-01 14:04] VITALS: BMI 27.3
[2020-03-07 13:44] VITALS: BP 142/52; PULSE 56; RESP 16; TEMP 36.7; O2SAT 99; BMI 27.3
[2020-03-07] MEDS: Omalizumab 150 MG/ML Syringe SQ ×2 (13:47)
== END ==
PROVIDERS: PCP Internal Medicine; Referring Provider Specialist; Visit Provider Specialist
DX: L50.0 Allergic urticaria (principal)
CPT/HCPCS: 96372; J2357

== ENCOUNTER → 2020-04-04 12:54 | Outpatient (CLI) | payer MEDICARE, OTHER, SELFPAY ==
[2020-02-01 14:04] VITALS: BMI 27.3
[2020-03-07 13:44] VITALS: BMI 27.3
[2020-04-04 13:02] VITALS: BP 131/90; PULSE 81; RESP 16; TEMP 36.4; O2SAT 97; BMI 27.4
[2020-04-04] MEDS: Omalizumab 150 MG/ML Syringe SQ ×2 (13:08)
[2020-04-04 13:18] VITALS: BP 134/57; PULSE 74
== END ==
PROVIDERS: PCP Internal Medicine; Referring Provider Specialist; Visit Provider Specialist
DX: L50.0 Allergic urticaria (principal)
CPT/HCPCS: 96372; J2357

== ENCOUNTER 2020-05-01 21:55 | Emergency (ER) | payer MEDICARE, OTHER, SELFPAY ==
[2020-04-04 13:02] VITALS: BMI 27.4
[2020-05-01 21:55] VITALS: BP 154/96; PULSE 94; RESP 15; TEMP 36.8; O2SAT 96; BMI 27.3
--- NOTE | 2020-05-01 22:09 | ED.VIS.GEN ---
History of Present Illness Chief Complaint: Hypertension Informant: Patient Onset: Today - Systolic 140 at doctor's office today. She has taken her blood pressure several times at home as instructed. She has numerous markedly elevated readings. Prior to coming in her blood pressure was 236/106. Blood pressure in the ER is 154/96. She states she is anxious. Context: Sudden Onset Timing: Intermittent Quality: Asymptomatic elevated blood pressure Location: Not applicable Current Severity: - - Question accuracy of portable machine Worsened by: Anxiousness Relieved by: Unknown Associated Symptoms: None Narrative: Patient is an 79-year-old woman with history of hypertension who was seen by her physician today and had a systolic blood pressure reading of 140. Patient denies headache. She denies change in vision or double vision. She denies loss of vision. She denies ringing or ears decreased hearing. Denies trouble with speech or swallowing. She denies paresthesia, anesthesia motors. She denies trouble walking or with balance. She denies back pain. She denies nausea or vomiting. Prior similar symptoms: Yes Recent Illness/Hospitalization: Yes - Physician office visit - Past Medical History (1) Essential (primary) hypertension Status: Chronic (2) Hyperlipidemia Status: Chronic (3) Nonrheumatic aortic (valve) insufficiency Status: Chronic (4) Nonrheumatic mitral (valve) insufficiency Status: Chronic (5) Secondary pulmonary arterial hypertension Status: Chronic Past Medical History - Allergies and Home Meds Allergies/Adverse Reactions: Allergies oxycodone [From Percocet] Adverse Reaction (Verified 05/01/20 21:55) Upset Stomach Primary Care Physician: Bjorn Soares MD [Primary Care Provider] - 1-2 Weeks Prior records reviewed: Yes Surgical History: noncontributory Lives: Alone Smoking Status: Former smoker Alcohol: None Drugs: None Review of Systems General: Denies: Chills, Fever, Malaise, Subjective Eyes: Denies: Visual changes - bilaterally, Blurred Vision - bilaterally ENT: Denies: Bilateral ear pain, Rhinorrhea, Sore throat Cardiovascular: Denies: Chest pain, Palpitations Respiratory: Denies: Dyspnea, Cough, Dyspnea on exertion Gastrointestinal: Denies: Abdominal pain, Nausea, Vomiting Genitourinary: Denies: Dysuria, Hematuria Musculoskeletal: Denies: Myalgias, Arthralgias, Swelling, Extremity Pain Skin: Denies: Rash Neurological: Denies: Headache, Weakness, Parasthesia, Numbness Physical Exam Vital Signs/Narrative: Vital Signs Temp Pulse Resp BP Pulse Ox 05/01/20 21:55 98.3 F 94 15 154/96 H 96 Inital Vital Signs reviewed: Yes General: Well nourished, Well developed, - - Patient appears very anxious and fidgety Head: Normocephalic, Atraumatic Eyes: Perrl, EOMI. Negative for: Pale conjunctiva, Scleral icterus ENT: Moist mucous membranes Neck: Supple, Nontender, No lymphadenopathy, No JVD Cardiovascular: Regular rate, Regular rhythm, No murmurs, Normal S1, Normal S2 Respiratory: No distress, CTA bilaterally, Chest nontender Extremities: Nontender, No edema Skin: Normal color, No rash Neurological: Alert, Oriented x3, Cranial nerves II-XII grossly intact, Normal Strength, Normal Sensation Psychological: - - Patient is easily excited and appears anxious Diagnostic/Tx/Re-eval - Medical Decision Making Blood pressure reading at physician's office is not concerning. Initial blood pressure reading in the emergency department is not concerning in light of an 79-year-old woman with longstanding hypertension. More importantly, she is asymptomatic. Will assess her blood pressure machine versus automated cuff to determine if her machine is giving falsely elevated readings. Manual blood pressure was elevated at 180 systolic. Most recent blood pressure is 182/89. Patient remains asymptomatic. Of note she is anxious and I believe this is contributing to her elevated blood pressure readings. Initial blood pressure was 154 systolic, which is not concerning in an 79-year-old patient who has known history of hypertension especially since she is asymptomatic. Most recent blood pressure documented at 2252 is 178/95. Since patient is asymptomatic will discharge to home. ED Disposition - Plan for ED Patient: Disposition: Home or Assisted Living Diagnosis: Asymptomatic hypertension Instructions: ED Hypertension, Established Referrals: Bjorn Soares MD [Primary Care Provider] - 1-2 Weeks Additional Instructions: Would recommend checking blood pressure in 2 days. If you have symptoms concerning for stroke, change in vision, severe abrupt headache, chest pain or shortness of breath would assess blood pressure sooner.
[2020-05-01 22:10] VITALS: BP 182/88
[2020-05-01 22:31] VITALS: BP 178/95; PULSE 77; RESP 16; O2SAT 95
[2020-05-01 22:59] VITALS: BP 114/97; PULSE 83; RESP 16; O2SAT 95
== END 2020-05-01 23:00 | disposition home or self-care (01) ==
PROVIDERS: Emergency Provider Emergency Medicine; PCP Family Medicine
DX: I10 Essential (primary) hypertension (principal); I35.1 Nonrheumatic aortic (valve) insufficiency; I34.0 Nonrheumatic mitral (valve) insufficiency; E78.5 Hyperlipidemia, unspecified; I27.21 Secondary pulmonary arterial hypertension; Z79.899 Other long term (current) drug therapy; Z87.891 Personal history of nicotine dependence
CPT/HCPCS: 99282

== ENCOUNTER → 2020-05-09 13:22 | Outpatient (CLI) | payer MEDICARE, OTHER, SELFPAY ==
[2020-03-07 13:44] VITALS: BMI 27.3
[2020-05-01 21:55] VITALS: BMI 27.3
[2020-05-09 13:47] VITALS: RESP 16; TEMP 35.9; BMI 27.3
[2020-05-09] MEDS: Omalizumab 150 MG/ML Syringe SQ ×2 (13:50)
== END ==
PROVIDERS: PCP Internal Medicine; Referring Provider Specialist; Visit Provider Specialist
DX: L50.0 Allergic urticaria (principal)
CPT/HCPCS: 96372; J2357

== ENCOUNTER 2020-06-03 15:09 | Inpatient (IN) | payer MEDICARE, OTHER, SELFPAY ==
[2020-05-16 13:06] VITALS: BMI 26.6
[2020-06-03 15:11] VITALS: BP 102/49; PULSE 62; RESP 16; TEMP 36.6; O2SAT 98; BMI 27.7
--- NOTE | 2020-06-03 15:20 | EKG12_ITS ---
Test Reason : ALT LOC Blood Pressure : / mmHG Vent. Rate : 060 BPM Atrial Rate : 060 BPM P-R Int : 196 ms QRS Dur : 088 ms QT Int : 448 ms P-R-T Axes : 060 -08 009 degrees QTc Int : 448 ms Normal sinus rhythm Minimal voltage criteria for LVH, may be normal variant Borderline ECG Confirmed by PAWAN SHAH, ANA LUISA ([id number]), assistant editor MELISSA KWOK ([id number]) on 06/05/2020 1:26:34 PM Referred By: GONZALO Confirmed By:ANA LUISA VILLALTA MD
--- NOTE | 2020-06-03 15:20 | CT_ITS ---
HISTORY: INCREASED CONFUSION/FELL 4 DAYS AGO. Hx of skin cancer, melanoma and HTN COMPARISON: 07/17/2019 TECHNIQUE: Helical CT axial images are obtained from the base of skull through the vertex without IV contrast. Multiplanar reconstruction. A radiation dose optimization technique was used for this scan. # of images incl. paperwork: 240 FINDINGS: BRAIN: Old right basal ganglia lacunar infarct. No parenchymal hemorrhage,acute infarct, intra-axial mass, mass effect, or midline shift. No abnormal extra-axial fluid collections. VENTRICLES: Ventricles are normal in size and configuration. No hydrocephalus. CALVARIUM: Bone windows show no skull fracture or calvarial lesions. PARANASAL SINUSES AND MASTOIDS: Visualized paranasal sinuses are clear. Mastoid air cells are clear. CT/Brain/Head without Contrast IMPRESSION: 1. No acute intracranial disease. 2. Old right basal ganglia lacunar infarct. 3. No significant interval change. Individualized dose optimization techniques were used for this CT. at 1648 Reported and signed by: Navin Kumar MD Electronically Signed: Navin Kumar MD at 16:47 EST Tel , Service support ,
--- NOTE | 2020-06-03 15:24 | ED.DCSUM_ITS ---
History of Present Illness Chief Complaint: Alt LOC Informant: Patient Onset: Days Context: Gradual Onset Timing: Intermittent Current Severity: Moderate Maximum Severity: Moderate Narrative: Patient is an 80-year-old female with medical history significant for hypertension, pulmonary hypertension, and valvular heart disease who presents to the emergency department with generalized malaise and confusion. On Wednesday, the patient states that she had a near syncopal event. She states she lowered herself to the ground but cannot get up because of weakness. She states that she was on the ground for approximately 3 or 4 hours. Squad was called at that point. She was evaluated in the field and she did not want to be brought to the hospital. She states over the weekend, she has noticed she has just not felt herself. She states she had some generalized malaise. She is also had some mild shortness of breath. She denies cough. She denies fevers or chills. Her daughter states that today, she was more confused. The patient apparently adjusted her heater but cannot tell what she was doing or where she was at. Prior similar symptoms: No Recent Illness/Hospitalization: No Past Medical History - Allergies and Home Meds Allergies/Adverse Reactions: Allergies oxycodone [From Percocet] Adverse Reaction (Verified 06/03/20 15:10) Upset Stomach Prior records reviewed: Yes Past Medical History: - - Hypertension, pulmonary hypertension, valvular heart disease Surgical History: noncontributory Smoking Status: Former smoker Review of Systems General: Reports: Malaise. Denies: Chills, Fever, Sweats Eyes: Denies: Visual changes - bilaterally, Diplopia ENT: Denies: Rhinorrhea, Sore throat Cardiovascular: Denies: Chest pain, Palpitations Respiratory: Denies: Dyspnea, Cough, Dyspnea on exertion Gastrointestinal: Reports: Nausea. Denies: Abdominal pain, Vomiting, Diarrhea, Melena, Hematochezia Genitourinary: Denies: Dysuria, Hematuria, Frequency Musculoskeletal: Denies: Back pain, Extremity Pain Skin: Denies: Rash, Wounds Neurological: Denies: Headache, Weakness, Numbness Physical Exam Vital Signs/Narrative: Vital Signs Temp Pulse Resp BP Pulse Ox 06/03/20 15:11 97.9 F 62 16 102/49 L 98 Inital Vital Signs reviewed: Yes General: Well nourished, Well developed, No Acute Distress Head: Normocephalic, Atraumatic Eyes: Perrl, EOMI ENT: Moist mucous membranes, No rhinorrhea Neck: Supple, Nontender Cardiovascular: Regular rate, Regular rhythm, No murmurs Respiratory: No distress, CTA bilaterally, Chest nontender Abdomen: Soft, Nontender, Nondistended, Normal bowel sounds Back: Nontender, Normal Inspection Extremities: Nontender, No edema Skin: Normal color, No rash Neurological: Alert, Oriented x3, Cranial nerves II-XII grossly intact, Normal Strength, Normal Sensation Psychological: Normal affect, Normal Mood Diagnostic/Tx/Re-eval Clinical Impression(s) from Imaging Studies Brain CT 06/03/20 15:20 IMPRESSION: 1. No acute intracranial disease. 2. Old right basal ganglia lacunar infarct. 3. No significant interval change. Individualized dose optimization techniques were used for this CT. at 1648 Reported and signed by: Navin Kumar MD Electronically Signed: Navin Kumar MD at 16:47 EST Tel , Service support , Chest X-Ray 06/03/20 16:00 IMPRESSION: 1. No acute cardiopulmonary disease. at 1658 Reported and signed by: Navin Kumar MD Electronically Signed: Navin Kumar MD at 16:56 EST Tel , Service support , Abnormal Lab Results 06/03/20 06/03/20 06/03/20 15:35 15:35 15:35 WBC 6.9 RBC 3.45 L Hgb 11.1 L Hct 32.4 L MCV 93.9 MCH 32.2 H MCHC 34.3 RDW Std Deviation 48.5 H RDW Coeff of Arben 14.5 Plt Count 192 MPV 9.4 Immature Gran % (Auto) 0.400 Neut % (Auto) 68.1 Lymph % (Auto) 15.6 L [place] % (Auto) 14.8 H Eos % (Auto) 0.4 Baso % (Auto) 0.7 Absolute Neuts (auto) 4.7 Absolute Lymphs (auto) 1.07 Nucleated RBC % 0 PT 13.9 INR 1.1 Sodium 135 L Potassium 3.2 L Chloride 102 Carbon Dioxide 27.0 Anion Gap 6 BUN 17 Creatinine 1.03 H Estim Creat Clear Calc 36.99 Est GFR (MDRD) Af Amer 66 Est GFR (MDRD) Non-Af 55 L BUN/Creatinine Ratio 16.5 Glucose 102 Lactic Acid Calcium 8.8 Total Bilirubin 0.50 AST 46 H ALT 33 Alkaline Phosphatase 82 Troponin I < 0.015 Total Protein 6.7 Albumin 2.8 L Globulin 3.9 Albumin/Globulin Ratio 0.7 L Urine Color Urine Clarity Urine pH Ur Specific [place] Urine Protein Urine Glucose (UA) Urine Ketones Urine Occult Blood Urine Nitrite Urine Bilirubin Urine Urobilinogen Ur Leukocyte Esterase Urine RBC Urine WBC Ur Squamous Epith Cells Urine Bacteria Hyaline Casts Urine Mucus 06/03/20 06/03/20 15:35 15:41 WBC RBC Hgb Hct MCV MCH MCHC RDW Std Deviation RDW Coeff of Arben Plt Count MPV Immature Gran % (Auto) Neut % (Auto) Lymph % (Auto) [place] % (Auto) Eos % (Auto) Baso % (Auto) Absolute Neuts (auto) Absolute Lymphs (auto) Nucleated RBC % PT INR Sodium Potassium Chloride Carbon Dioxide Anion Gap BUN Creatinine Estim Creat Clear Calc Est GFR (MDRD) Af Amer Est GFR (MDRD) Non-Af BUN/Creatinine Ratio Glucose Lactic Acid 1.0 Calcium Total Bilirubin AST ALT Alkaline Phosphatase Troponin I Total Protein Albumin Globulin Albumin/Globulin Ratio Urine Color Yellow Urine Clarity Cloudy Urine pH 5.0 Ur Specific [place] 1.010 Urine Protein 30 H Urine Glucose (UA) Normal Urine Ketones Negative Urine Occult Blood 150 H Urine Nitrite Negative Urine Bilirubin Negative Urine Urobilinogen Normal Ur Leukocyte Esterase 500 H Urine RBC 0-5 SEEN Urine WBC 25-50 SEEN Ur Squamous Epith Cells 0 SEEN Urine Bacteria 2+ Hyaline Casts 0-5 SEEN Urine Mucus 0 SEEN - Rhythm Strip Rhythm Strip: Sinus Rhythm Rate: 70 Ectopy: None - EKG Initial EKG Interpretation: Sinus Rhythm, No Acute Injury Pattern Prior: Unchanged - Medical Decision Making The patient presents with generalized weakness and confusion. She states that she felt very weak on Wednesday and lowered her self to the ground. She was on the ground for about 4 hours. Today, she was rather significantly confused and has no history of confusion. On arrival, she is awake and alert. She is able to answer most questions without issue. Metabolic work-up was pursued. The patient does have evidence of urinary tract infection. Culture was added. Blood cultures were obtained. The patient was covered with Rocephin. She is also hypokalemic and this was replaced. Her EKG did not show evidence of atrial fibrillation or other ischemic change. Chest x-ray was unremarkable for acute process. This was reviewed by both myself and the radiologist. Noncontrast head CT was also unremarkable. With the patient's waxing and waning symptoms being consistent with delirium, I do feel that she would benefit from admission. The patient was discussed with the hospitalist. Impression 1. UTI with delirium ED Disposition - Plan for ED Patient:
[2020-06-03] MEDS: 0.9% Normal Saline 1,000 ML 1000 ML IV (15:37)
[2020-06-03 15:55] LABS: Mucous, Urine 0 SEEN /hpf (<or=2+); Squamous Epithelial Cells - UA 0 SEEN /hpf (5-10)
[2020-06-03 16:00] LABS: Absolute Lymphocyte Count 1.07 X10^3/uL (0.83-4.51); Absolute Neutrophil Count 4.7 X10^3/uL (2.0-7.7); Basophil# 0.05 X10^3/uL; Basophil% 0.7 % (0-1); Eosinophil# 0.03 X10^3/uL; Eosinophils% 0.4 % (0-5); Hematocrit 32.4 % (37-47); Hemoglobin 11.1 g/dL (12.0-15.0); Lymphocyte # 1.07 X10^3/ul (4.0); Lymphocyte % 15.6 % (19-41); Mean Corp Hgb Conc 34.3 g/dL (32-36); Mean Corpuscular Hgb 32.2 pg (27.0-32.0); Mean Corpuscular Volume 93.9 fL (81-99); Mean Platelet Vol. 9.4 fl (6.2-12.0); Monocyte# 1.02 X10^3/uL; Monocyte% 14.8 % (0-10); NRBC Flagged by Analyzer 0 % (0-5); Neutrophil # 4.68 X10^3/uL (2.7-7.7); Neutrophil % 68.1 % (47-70); Platelet Count 192 K/mm3 (150-450); RBC Distribution Width CV 14.5 % (11.6-14.6); RBC Distribution Width SD 48.5 fl (35.1-43.9); Red Blood Count 3.45 M/mm3 (4.2-5.4); White Blood Count 6.9 K/mm3 (4.4-11.0)
--- NOTE | 2020-06-03 16:00 | RAD_ITS ---
HISTORY: Shortness of breath XR Chest 1 View TECHNIQUE: Single frontal view of chest. # of images incl. paperwork: 1 COMPARISON: 05/28/2017 FINDINGS: LINES: None. CARDIOVASCULAR STRUCTURES: Normal cardiomediastinal silhouette. Pulmonary vasculature appears normal. LUNGS: The lungs are clear. PLEURA: No pleural effusions or pneumothorax. BONES: No acute osseous abnormality of the thorax. RAD/Chest 1 View (Portable) IMPRESSION: 1. No acute cardiopulmonary disease. at 1658 Reported and signed by: Navin Kumar MD Electronically Signed: Navin Kumar MD at 16:56 EST Tel , Service support ,
[2020-06-03 16:04] LABS: Color, Urine Yellow (Yellow); Glucose, Dipstick Normal (Normal); Ketone-Dipstick Negative (Negative); Leukocyte Esterase-Dipstick 500 /ul (Negative); Nitrite-Dipstick Negative (Negative); Occult Blood-Urine 150 /ul (Negative); Protein-Dipstick 30 mg/dl (Negative); Urine Bilirubin Dipstick Negative (Negative); Urine Clarity Cloudy (Clear); Urine Urobilinogen Normal (Normal)
[2020-06-03 16:11] LABS: International Normalized Ratio 1.1; Prothrombin Time (Protime)PT. 13.9 SECONDS (11.7-14.9)
[2020-06-03 16:11] LABS: Bacteria 2+ /hpf (None Seen); Red Blood Cells-Urine 0-5 SEEN /hpf (0-5); White Blood Cells 25-50 SEEN /hpf (0-5)
[2020-06-03 16:12] LABS: Hyaline Cast 0-5 SEEN /lpf (0-5)
[2020-06-03 16:21] LABS: ALB/GLOB Ratio 0.7 RATIO (0.9-2.4); AST(SGOT) 46 U/L (15-37); Alanine Aminotransfer ALT/SGPT 33 U/L (13-56); Albumin, Serum 2.8 g/dL (3.2-5.0); Alkaline Phosphatase 82 U/L (45-117); Anion Gap 6 (5-15); BUN 17 mg/dL (7-18); BUN/Creat Ratio 16.5 RATIO (10-20); Calcium,Total 8.8 mg/dL (8.5-10.1); Chloride 102 mmol/L (98-107); Creatinine, Serum 1.03 mg/dL (0.55-1.02); EST Glomerular Filtration Rate 55 mL/min (>60); Est Glom Filt Rate - Afr Amer 66 mL/min (>60); Estimated Creatinine Clearance 36.99 ml/min; Globulin 3.9 g/dL (2.2-4.2); Glucose 102 mg/dL (74-106); Potassium 3.2 mmol/L (3.5-5.1); Protein, Total 6.7 g/dL (6.4-8.2); Sodium Level 135 mmol/L (136-145)
[2020-06-03 16:25] VITALS: BP 118/53; BP 119/54; BP 126/65; PULSE 60; PULSE 62; PULSE 69
[2020-06-03] MEDS: Ceftriaxone 1 GM/50 ML BAG IV (16:37)
[2020-06-03 17:12] VITALS: BP 104/69; PULSE 63; RESP 20; TEMP 36.2; O2SAT 98
--- NOTE | 2020-06-03 17:29 | PCM.HP.STD ---
<Odette Dotson GEOSCIENCES PROFESSOR - Last Filed: 06/03/20 17:49> Problem List (1) Nonrheumatic mitral (valve) insufficiency Status: Chronic (2) Nonrheumatic aortic (valve) insufficiency Status: Chronic (3) Secondary pulmonary arterial hypertension Status: Chronic (4) Essential (primary) hypertension Status: Chronic (5) Hyperlipidemia Status: Chronic History of Present Illness Date of Admission: 06/03/20 Chief Complaint: Weakness, general malaise, confusion. The patient is a 80 year old F who presents to the emergency room due to weakness, general malaise, confusion. Patient lives with son and [id number]. Jwpwqiik-[id number] at bedside states that they came home on night and found patient lying on the floor. They think she had been lying on the floor from approximately 4-7PM. Squad was called at that time and patient was evaluated and found to be stable. Following that event, patient had been very fatigued and laid in bed over the weekend. Blruyzzk-[id number] reports patient complained of generalized aching. She reports chills, denies fever. Reports mild urinary frequency, otherwise denies urinary symptoms or flank pain. Tudtzins-mr-hir states today, patient was noted to have increased confusion and at that time she was brought to the emergency room for further evaluation. Patient is conversing appropriately during assessment. She reports generalized weakness and states she has had difficulty going upstairs. She has a past medical history of hypertension, hyperlipidemia, valvular heart disease, seasonal allergies. Past Medical History Past Medical History (Chronic Problems): Chronic Problems (Last Reviewed 05/16/20 @ 13:[address] Levy Ibarra MD) Nonrheumatic mitral (valve) insufficiency (Chronic) Nonrheumatic aortic (valve) insufficiency (Chronic) Secondary pulmonary arterial hypertension (Chronic) Essential (primary) hypertension (Chronic) Hyperlipidemia (Chronic) Medical History: Medical History (Last Reviewed 05/16/20 @ 13:[address] Levy Ibarra MD) Nonrheumatic mitral (valve) insufficiency (Chronic) I34.0 Nonrheumatic aortic (valve) insufficiency (Chronic) I35.1 Secondary pulmonary arterial hypertension (Chronic) I27.21 Essential (primary) hypertension (Chronic) I10 Hyperlipidemia (Chronic) E78.5 Anemia D64.9 GERD (gastroesophageal reflux disease) K21.9 Glaucoma H40.9 History of basal cell cancer Z85.828 nose History of melanoma Z85.820 Rt shoulder History of rectocele Seasonal allergies J30.2 Colonoscopy planned 2015 History of shingles Z86.19 Premature atrial contractions (Inactive) I49.1 Allergies oxycodone [From Percocet] Adverse Reaction (Verified 06/03/20 15:10) Upset Stomach Home Medications: Ambulatory Orders Medication Instructions Recorded Biotin 10,000 mcg PO DAILY 05/28/17 Diltiazem CD [Cardizem CD] 120 mg PO DAILY 05/28/17 Famotidine [Pepcid] 40 mg PO BID 05/28/17 atorvastatin 10 mg tablet 10 mg PO QHS tab 10/05/19 brimonidine 0.2 % eye drops 1 drp OPHTHALMIC BID ml 10/05/19 omalizumab 75 mg/0.5 mL 150 mg SC Q4W 10/05/19 subcutaneous syringe timolol maleate 0.5 % eye drops 1 drp OPHTHALMIC BID ml 10/05/19 Losartan Potassium [Cozaar] 75 mg PO DAILY 05/01/20 levocetirizine 5 mg tablet 5 mg PO DAILY tab 05/16/20 Cholecalciferol (Vitamin D3) 1,000 unit PO DAILY 06/03/20 [Vitamin D3] Cyanocobalamin (Vitamin B-12) 1,000 mcg PO DAILY 06/03/20 [Vitamin B-12] Hydroxyzine HCl 25 mg PO QHS PRN 06/03/20 Latanoprostene Bunod [Vyzulta] 1 drp EACH EYE DAILY 06/03/20 Vit A/Vit C/Vit E/Zinc/Copper 1 ea PO BID 06/03/20 [Preservision Areds Softgel] Surgical History: Surgical History (Last Reviewed 06/03/20 @ 17:38 by Odette Dotson NP, GEOSCIENCES PROFESSOR-C) History of appendectomy Z90.49 History of bilateral cataract extraction Z98.41, Z98.42 History of hemorrhoidectomy Z98.890 History of hysterectomy Z90.710 History of laparoscopy Z98.890 History of repair of right rotator cuff Z98.890 Psychiatric History: No pertinent psych hx 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 Levy Ibarra MD) Mother Anemia Hypertension Brother Hypertension Grandfather Cancer History Items: - - Blood disorder Paternal Family History: Family History (Last Reviewed 05/16/20 @ 13:[address] Levy Ibarra MD) Mother Anemia Hypertension Brother Hypertension Grandfather Cancer History Items: - - Pancreatic cancer Review of Systems Constitutional: Reports: Chills, Malaise, Weakness. Denies: Fever HEENT: Denies: Head Aches, Sinus Congestion, Sinus Drainage Cardiovascular: Denies: Chest Pain, Palpitations Respiratory: Denies: Cough, Shortness of breath at rest, Sputum production Gastrointestinal: Denies: Abdominal Pain, Nausea, Vomiting Genitourinary: Reports: Frequency. Denies: Dysuria, Incontinence, Urgency Musculoskeletal: Denies: Joint Pain, Joint Tenderness Skin: Denies: Rash, Wounds Neurological: Denies: Numbness, Tingling, Focal weakness Psychiatric: Denies: Anxiety, Depression, Homicidal Ideations, Suicidal Ideations Hematologic/ Lymphatic: Denies: Easy Bruising, Easy Bleeding VTE Information - Inpt Only VTE Present on Admission: No VTE Mechan Device Prophylaxis: None VTE Pharm Prophylaxis ordered?: Yes - Physical Exam Vitals/I&O's: Vital Signs Temp Pulse Resp BP Pulse Ox 97.1 F L 63 20 H 104/69 98 06/03/20 17:12 06/03/20 17:12 06/03/20 17:12 06/03/20 17:12 06/03/20 17:12 Oxygen Delivery Method Room Air Weight: 161 lb 9.581 oz Body Mass Index (BMI) 27.7 Intake and Output for Last 24 Hours 06/01/20 06/02/20 06/03/20 23:59 23:59 23:59 Intake Total 50 / 50 Balance 50 / 50 General: Alert, Oriented x3, Cooperative HEENT: Atraumatic, PERRLA, EOMI, Normocephalic Oral: Dry Mucosa Neck: Supple, No JVD, Negative Carotid Bruits Lungs: Clear to auscultation, Diminished Cardiovascular: Regular rate, No murmurs Abdomen: Bowel Sounds Present, Soft, Non Tender, Non-Distended Extremities: No clubbing, No cyanosis, No edema, Capillary Refill Less than 3 Seconds Skin: No rashes, No breakdown Musculoskeletal: No Tenderness to Palpation of Joints or Extremities Neurological: Cranial nerves II-XII grossly intact, Neuro grossly intact Psych/Mental Status: Normal Affect, Appropriate Laboratory Results 06/03/20 15:35: WBC 6.9, RBC 3.45 L, Hgb 11.1 L, Hct 32.4 L, MCV 93.9, MCH 32.2 H, MCHC 34.3, RDW Std Deviation 48.5 H, RDW Coeff of Arben 14.5, Plt Count 192, MPV 9.4, Immature Gran % (Auto) 0.400, Neut % (Auto) 68.1, Lymph % (Auto) 15.6 L, Antelope % (Auto) 14.8 H, Eos % (Auto) 0.4, Baso % (Auto) 0.7, Absolute Neuts (auto) 4.7, Absolute Lymphs (auto) 1.07, Nucleated RBC % 0 06/03/20 15:35: PT 13.9, INR 1.1 06/03/20 15:35: Sodium 135 L, Potassium 3.2 L, Chloride 102, Carbon Dioxide 27.0, Anion Gap 6, BUN 17, Creatinine 1.03 H, Estim Creat Clear Calc 36.99, Est GFR (MDRD) Af Amer 66, Est GFR (MDRD) Non-Af 55 L, BUN/Creatinine Ratio 16.5, Glucose 102, Calcium 8.8, Total Bilirubin 0.50, AST 46 H, ALT 33, Alkaline Phosphatase 82, Troponin I < 0.015, Total Protein 6.7, Albumin 2.8 L, Globulin 3.9, Albumin/Globulin Ratio 0.7 L 06/03/20 15:35: Lactic Acid 1.0 06/03/20 15:41: Urine Color Yellow, Urine Clarity Cloudy, Urine pH 5.0, Ur Specific [place] 1.010, Urine Protein 30 H, Urine Glucose (UA) Normal, Urine Ketones Negative, Urine Occult Blood 150 H, Urine Nitrite Negative, Urine Bilirubin Negative, Urine Urobilinogen Normal, Ur Leukocyte Esterase 500 H, Urine RBC 0-5 SEEN, Urine WBC 25-50 SEEN, Ur Squamous Epith Cells 0 SEEN, Urine Bacteria 2+, Hyaline Casts 0-5 SEEN, Urine Mucus 0 SEEN Assessment/Plan 1. Acute UTI-no leukocytosis, lactic acid normal. Brain CT without acute process. Chest x-ray unremarkable. IV Rocephin pending urine cultures. Blood cultures ordered. PT/OT. 2. Acute encephalopathy, suspect secondary to above-treatment per above. 3. Hypokalemia-replace per protocol, trend BMP. 4. Mild dehydration-IV fluids. 5. Valvular heart disease-echocardiogram 2018 with EF 67%, moderate mitral valve regurgitation, mild aortic insufficiency. 6. Hypertension-continue losartan with hold parameters. 7. Hyperlipidemia-continue statin. 8. Seasonal allergies-on levocetirizine, omalizumab. DVT prophylaxis- Lovenox sc This patient was seen by JAGJIT Herrera under the supervision of Dr. Anand. <Erica Anand - Last Filed: 06/03/20 20:15> History of Present Illness I agree with the above and the following is a reflection of my independent history and physical examination Ms. Hurley is a 80 year old WF with a past medical history of hypertension, hyperlipidemia, valvular heart disease, PAH, and seasonal allergies who presented to the emergency department at [facility] on 06/03/2020 with malaise and confusion. She has been progressively getting weaker since last . She states she had coronavirus in March. She complains of some urinary frequency but denies dysuria and is currently mentating well being alert and oriented x4. She denies ever having urinary tract infections in the past. She states she has had chills on and off but no documented fever. There is documentation of a syncopal episode on Wednesday and orthostatics were done in the emergency department and were negative at that time. Her vital signs were stable on admission and she was afebrile. Her CBC shows no white count but a mild anemia. A BMP was done and shows mild hypokalemia at a potassium of 3.2, mild acute kidney injury with a creatinine of 1.03 (baseline kidney function is about 0.8 2.9), her lactic acid was 1, and her troponin was less than 0.015. A UA was done and showed occult blood, leuk esterase and white blood cells. CT of her head showed no acute intracranial disease, old right basal ganglia infarct, and no interval change. Blood and urine cultures were obtained and she was given a dose of ceftriaxone in the emergency department. She was admitted to [facility] for further care. Past Medical History Medical History: Medical History (Last Reviewed 06/03/20 @ 20:[address] Erica Anand DO) Nonrheumatic mitral (valve) insufficiency (Chronic) I34.0 Nonrheumatic aortic (valve) insufficiency (Chronic) I35.1 Secondary pulmonary arterial hypertension (Chronic) I27.21 Essential (primary) hypertension (Chronic) I10 Hyperlipidemia (Chronic) E78.5 Anemia D64.9 GERD (gastroesophageal reflux disease) K21.9 Glaucoma H40.9 History of basal cell cancer Z85.828 nose History of melanoma Z85.820 Rt shoulder History of rectocele Seasonal allergies J30.2 Colonoscopy planned 2015 History of shingles Z86.19 Premature atrial contractions (Inactive) I49.1 Allergies oxycodone [From Percocet] Adverse Reaction (Verified 06/03/20 15:10) Upset Stomach Surgical History: Surgical History (Last Reviewed 06/03/20 @ 20:[address] Erica Anand DO) History of appendectomy Z90.49 History of bilateral cataract extraction Z98.41, Z98.42 History of hemorrhoidectomy Z98.890 History of hysterectomy Z90.710 History of laparoscopy Z98.890 History of repair of right rotator cuff Z98.890 - *Family History Maternal Family History: Family History (Last Reviewed 06/03/20 @ 20:[address] Erica Anand DO) Mother Anemia Hypertension Brother Hypertension Grandfather Cancer Paternal Family History: Family History (Last Reviewed 06/03/20 @ 20:[address] Erica Anand DO) Mother Anemia Hypertension Brother Hypertension Grandfather Cancer Review of Systems Constitutional: Reports: Chills, Malaise, Weakness, Fatigue. Denies: Anorexia, Fever, Night Sweats, Weight Change Eyes: Reports: - - Glaucoma. Denies: Blurred vision, Conjunctivae Inflammation, Double vision, Drainage, Eyelid Inflammation, Pain, Redness, Vision Change HEENT: Denies: Difficulty Hearing, Ear Pain, Eye Pain, Head Aches, Nasal bleeding, Nasal Congestion, Post Nasal Drip, Sinus Congestion, Sinus Drainage, Sore Throat, Visual Changes Cardiovascular: Reports: Syncope - Wednesday. Denies: Chest Pain, Claudication, Chest Pressure, Chest Tightness, Edema, Heaviness, Light Headedness, Orthopnea, Palpitations, Paroxysmal Noc. Dyspnea Respiratory: Reports: Shortness of breath upon exertion - Patient states this is normal for her at baseline, -. Denies: Cough, Hemoptysis, Pleuritic Pain, Shortness of Breath, Shortness of breath at rest, Sputum production, Wheezing Gastrointestinal: Reports: Diarrhea - One episode of loose stool today. Denies: Abdominal Pain, Constipation, Dyspepsia, Hematemesis, Hematochezia, Nausea, Melena, Vomiting Genitourinary: Reports: Frequency. Denies: Dysuria, Hematuria, Hesitancy, Incontinence, Nocturia, Retention, Urgency Musculoskeletal: Denies: Back Pain, Joint Pain, Joint stiffness, Joint swelling, Joint Tenderness, Muscle pain, Neck Pain Skin: Denies: Dryness, Jaundice, Lesions, Pruritis, Rash, Skin Changes, Wounds Neurological: Reports: Confusion - Patient states she remembers being confused. Denies: Balance problems, Blurred vision, Double vision, Change in Speech, Slurred speech, Difficulty swallowing, Focal weakness, Headaches, Incoordination, Numbness, Tingling, Tremor, Seizures Psychiatric: Denies: Anxiety, Depression Endocrine: Denies: Change in Body Habitus, Heat/ Cold Intolerance, Polydipsia, Polyuria Hematologic/ Lymphatic: Denies: Adenopathy, Anemia, Easy Bruising, Easy Bleeding, Petechiae, Purpura - Physical Exam Vitals/I&O's: Vital Signs Temp Pulse Resp BP Pulse Ox 97.8 F 72 16 133/48 H 97 06/03/20 18:45 06/03/20 18:45 06/03/20 18:45 06/03/20 18:45 06/03/20 18:45 Oxygen Delivery Method Room Air Weight: 69.899 kg Body Mass Index (BMI) 26.4 Intake and Output for Last 24 Hours 06/01/20 06/02/20 06/03/20 23:59 23:59 23:59 Intake Total 50 / 50 Balance 50 / 50 General: Alert, Oriented x3, Cooperative, No apparent distress, Well developed, Well nourished, - - Elderly white female lying in bed in the dark, awake appears comfortable and alert and oriented x4 HEENT: Atraumatic, PERRLA, EOMI, Normocephalic, EAC Clear Oral: No Gingival or Mucosal Lesions/ Ulcerations, Dry Mucosa Neck: Supple, No JVD, Negative Carotid Bruits, Negative Hepatojugular Reflux, No Nodes, No Nuchal Rigidity, Trachea Midline, Thyroid Normal Size and Texture Lungs: Clear to auscultation, No rhonchi, No wheeze, No rales, Diminished - Fusilli Cardiovascular: Regular rate, Regular Rhythm, Normal S1, Normal S2, No Ectopic Activity, Murmur - 3 out of 6 systolic murmur, No rub noted, No Gallop Abdomen: Bowel Sounds Present, Soft, Non Tender, Non-Distended, No Hepato-splenomegaly, No hernias noted Extremities: No clubbing, No cyanosis, No edema, Capillary Refill Less than 3 Seconds, Peripheral Pulses Normal Skin: No rashes, No breakdown Musculoskeletal: No Tenderness to Palpation of Joints or Extremities, No Muscle Wasting, Arthritic Changes Lymphatic: No Cervical, Supraclavicular, or Inguinal Adenopathy Neurological: Cranial nerves II-XII grossly intact, Neuro grossly intact, Muscle tone normal, Sensory exam intact to light touch and pain, Coordination normal Psych/Mental Status: Normal Affect, Appropriate Laboratory Results 06/03/20 15:35: WBC 6.9, RBC 3.45 L, Hgb 11.1 L, Hct 32.4 L, MCV 93.9, MCH 32.2 H, MCHC 34.3, RDW Std Deviation 48.5 H, RDW Coeff of Arben 14.5, Plt Count 192, MPV 9.4, Immature Gran % (Auto) 0.400, Neut % (Auto) 68.1, Lymph % (Auto) 15.6 L, Antelope % (Auto) 14.8 H, Eos % (Auto) 0.4, Baso % (Auto) 0.7, Absolute Neuts (auto) 4.7, Absolute Lymphs (auto) 1.07, Nucleated RBC % 0 06/03/20 15:35: PT 13.9, INR 1.1 06/03/20 15:35: Sodium 135 L, Potassium 3.2 L, Chloride 102, Carbon Dioxide 27.0, Anion Gap 6, BUN 17, Creatinine 1.03 H, Estim Creat Clear Calc 36.99, Est GFR (MDRD) Af Amer 66, Est GFR (MDRD) Non-Af 55 L, BUN/Creatinine Ratio 16.5, Glucose 102, Calcium 8.8, Total Bilirubin 0.50, AST 46 H, ALT 33, Alkaline Phosphatase 82, Troponin I < 0.015, Total Protein 6.7, Albumin 2.8 L, Globulin 3.9, Albumin/Globulin Ratio 0.7 L 06/03/20 15:35: Lactic Acid 1.0 06/03/20 15:41: Urine Color Yellow, Urine Clarity Cloudy, Urine pH 5.0, Ur Specific [place] 1.010, Urine Protein 30 H, Urine Glucose (UA) Normal, Urine Ketones Negative, Urine Occult Blood 150 H, Urine Nitrite Negative, Urine Bilirubin Negative, Urine Urobilinogen Normal, Ur Leukocyte Esterase 500 H, Urine RBC 0-5 SEEN, Urine WBC 25-50 SEEN, Ur Squamous Epith Cells 0 SEEN, Urine Bacteria 2+, Hyaline Casts 0-5 SEEN, Urine Mucus 0 SEEN Current Medications Acetaminophen (Acetaminophen 325 Mg Tablet) 650 mg PO Q6H PRN PRN PRN Reason: Pain Score 1-10/Temp > 100.7 F Atorvastatin Calcium (Atorvastatin Calcium 10 Mg Tablet) 10 mg PO QHS [facility] Brimonidine Tartrate (Brimonidine 0.2% 5ml Bottle) 1 drop OPHTHALMIC BID [facility] Diltiazem HCl (Diltiazem Cd 120 Mg Capsule) 120 mg PO DAILY [facility] Enoxaparin Sodium (Enoxaparin 40 Mg/0.4 Ml Syringe) 40 mg SC DAILY [facility] Famotidine (Famotidine 20 Mg Tablet) 20 mg PO BID [facility] Sodium Chloride () 1,000 mls @ 100 mls/hr IV .Q10H [facility] Last Admin: 06/03/20 18:38 Dose: 100 mls/hr Documented by: Ceftriaxone Sodium (Rocephin) 1 gm in 50 mls @ 100 mls/hr IV Q24 [facility] Stop: 06/11/20 10:01 Sodium Chloride () 250 mls @ 15 mls/hr IV .[id number] PRN PRN Reason: Saline Flush Ibuprofen (Ibuprofen 400 Mg Tablet) 400 mg PO Q4H PRN PRN PRN Reason: Pain Score 1-10/Temp > 100.7 F Latanoprost (Latanoprost 0.005% 1 Bottle) 1 drop OPHTHALMIC QHS [facility] Losartan Potassium (Losartan Potassium 50 Mg Tablet) 75 mg PO DAILY [facility] Ondansetron HCl (Ondansetron 4 Mg/2 Ml Vial) 4 mg IV Q8H PRN PRN PRN Reason: NAUSEA/VOMITING Sodium Chloride (0.9% Saline Lock 10 Ml Syringe) 10 - 40 ml IV UD PRN PRN Reason: SALINE FLUSH Last Admin: 06/03/20 18:38 Dose: 10 ml Documented by: Timolol Maleate (Timolol 0.5% 5ml Opth.Btl) 1 drop OPHTHALMIC BID [facility] Assessment/Plan ASSESSMENT Acute UTI Acute metabolic encephalopathy Hypokalemia Mild NICOLE Valvular heart disease (moderate mitral valve regurgitation, mild aortic insufficiency) HTN HPL Mild anemia Severe seasonal allergies Glaucoma Recent COVID-19 infection March 2020 PLAN -Await results of blood and urine cultures -Continue ceftriaxone -mentation is already improving and patient is currently alert and oriented x4 -Normal saline at 100 cc/h -Repeat BMP in the a.m. -Continue home medications Inpatient E&M: 35787 Init Hosp L3
[2020-06-03 18:15] VITALS: BMI 27.7
[2020-06-03] MEDS: 0.9% Normal Saline 1,000 ML 100 ML IV (18:38)
[2020-06-03] MEDS: 0.9% Saline Lock 10 ML Syringe IV (18:38)
[2020-06-03 18:45] VITALS: BP 133/48; PULSE 72; RESP 16; TEMP 36.6; O2SAT 97; BMI 26.4
[2020-06-03 22:04] VITALS: BP 157/62; PULSE 82; RESP 16; TEMP 37.2; O2SAT 95
[2020-06-03] MEDS: Atorvastatin Calcium 10 MG Tablet PO (22:07)
[2020-06-03] MEDS: Timolol 0.5% 5ML OPTH.BTL 1 DRP OPHTHALMIC (22:07)
[2020-06-03] MEDS: Famotidine 20 MG Tablet PO (22:07)
[2020-06-03] MEDS: BRIMONIDINE 0.2% 5ML BOTTLE 1 DRP OPHTHALMIC (22:08)
[2020-06-03] MEDS: MELATONIN 10 MG TABLET 5 MG PO (22:24)
[2020-06-04] MEDS: 0.9% Saline Lock 10 ML Syringe IV (00:02)
[2020-06-04] MEDS: Ondansetron 4 MG/2 ML Vial IV (00:02)
[2020-06-04 03:20] VITALS: BP 142/55; PULSE 73; RESP 16; TEMP 36.6; O2SAT 92
[2020-06-04] MEDS: 0.9% Normal Saline 1,000 ML 100 ML IV ×2 (04:23→13:51)
[2020-06-04 06:21] LABS: Absolute Lymphocyte Count 1.37 X10^3/uL (0.83-4.51); Absolute Neutrophil Count 5.9 X10^3/uL (2.0-7.7); Basophil# 0.04 X10^3/uL; Basophil% 0.5 % (0-1); Eosinophil# 0.03 X10^3/uL; Eosinophils% 0.4 % (0-5); Hematocrit 32.9 % (37-47); Hemoglobin 10.9 g/dL (12.0-15.0); Lymphocyte # 1.37 X10^3/ul (4.0); Lymphocyte % 16.7 % (19-41); Mean Corp Hgb Conc 33.1 g/dL (32-36); Mean Corpuscular Hgb 30.9 pg (27.0-32.0); Mean Corpuscular Volume 93.2 fL (81-99); Mean Platelet Vol. 9.3 fl (6.2-12.0); Monocyte# 0.85 X10^3/uL; Monocyte% 10.4 % (0-10); NRBC Flagged by Analyzer 0 % (0-5); Neutrophil # 5.86 X10^3/uL (2.7-7.7); Neutrophil % 71.4 % (47-70); Platelet Count 207 K/mm3 (150-450); RBC Distribution Width CV 14.2 % (11.6-14.6); RBC Distribution Width SD 47.9 fl (35.1-43.9); Red Blood Count 3.53 M/mm3 (4.2-5.4); White Blood Count 8.2 K/mm3 (4.4-11.0)
[2020-06-04 06:49] LABS: Anion Gap 7 (5-15); BUN 10 mg/dL (7-18); BUN/Creat Ratio 11.4 RATIO (10-20); Chloride 108 mmol/L (98-107); Creatinine, Serum 0.88 mg/dL (0.55-1.02); EST Glomerular Filtration Rate 66 mL/min (>60); Est Glom Filt Rate - Afr Amer 80 mL/min (>60); Glucose 98 mg/dL (74-106); Magnesium 1.8 mg/dL (1.6-2.6); Potassium 3.6 mmol/L (3.5-5.1); Sodium Level 139 mmol/L (136-145)
[2020-06-04 08:44] VITALS: BP 150/72; PULSE 80; RESP 16; TEMP 36.7; O2SAT 95
[2020-06-04] MEDS: BRIMONIDINE 0.2% 5ML BOTTLE 1 DRP OPHTHALMIC ×2 (08:49→19:59)
[2020-06-04] MEDS: Timolol 0.5% 5ML OPTH.BTL 1 DRP OPHTHALMIC ×2 (08:49→19:58)
[2020-06-04] MEDS: Losartan Potassium 50 MG Tablet 75 MG PO (08:49)
[2020-06-04] MEDS: Famotidine 20 MG Tablet PO ×2 (08:49→19:59)
[2020-06-04] MEDS: dilTIAZem CD 120 MG Capsule PO (08:49)
[2020-06-04] MEDS: Enoxaparin 40 MG/0.4 ML Syringe SC (08:49)
[2020-06-04] MEDS: Ceftriaxone 1 GM/50 ML BAG IV (09:02)
--- NOTE | 2020-06-04 11:00 | CASEMGMT ---
RN CM Face to Face with patient for initial transition planning/care coordination assessment. RN CM introduced self and role at [facility]. Patient sitting in chair, alert and oriented. Patient willing to participate in assessment and is able to answer all questions appropriately. Care providers, pharmacy, and demographics verified. Patient wishes to discharge home, denies need for home health at this time. Patient states she has no further needs or concerns at this time. CM to follow for discharge planning needs that may arise. PCP: Rodger Specialists: Stacey continuous vulcanizing machine operator Preferred Pharmacy: [facility] Insurance: [facility] Prescription Benefit: yes Living Will/HPOA: yes, son James Hurley LNOK: son, TESS Living Arrangements: Patient lives with son in a 1 story house, basement is her apartment. Patient states she is independent and able to ambulate stairs. Transportation: self/son DME/HHC: Patient states she has walker and grab bars. Patient denies previous HHC. Disposition Plan: Patient to discharge home with family support and follow-up plans in place. Venecia SPARKS, RN, CM
[2020-06-04 13:57] VITALS: BP 149/74; PULSE 74; RESP 18; TEMP 36.7; O2SAT 94
--- NOTE | 2020-06-04 15:22 | PN_ITS ---
<Odette Dotson ENTERPRISE [employer]OUD ARCHITECT - Last Filed: 06/04/20 15:35> Subjective: Patient seen and examined. No confusion noted. Denies fever, chills. Denies urinary symptoms. Asking when she can return home. - Physical Exam Vitals/I&O's: Vital Signs Temp Pulse Resp BP Pulse Ox 98.0 F 74 18 149/74 H 94 06/04/20 13:57 06/04/20 13:57 06/04/20 13:57 06/04/20 13:57 06/04/20 13:57 Oxygen Delivery Method Room Air Weight: 154 lb 1.6 oz Body Mass Index (BMI) 26.4 Intake and Output for Last 24 Hours 06/02/20 06/03/20 06/04/20 23:59 23:59 23:59 Intake Total 1050 / 1400 3721.67 / 3721.67 Output Total 1850 / 1850 Balance 1050 / 950 1871.67 / 1871.67 General: Alert, Oriented x3, Cooperative HEENT: Atraumatic, PERRLA, EOMI, Normocephalic Neck: Supple, No JVD, Negative Carotid Bruits Lungs: Clear to auscultation, Diminished Cardiovascular: Regular rate, Murmur Abdomen: Bowel Sounds Present, Soft, Non Tender Extremities: No clubbing, No cyanosis, No edema, Capillary Refill Less than 3 Seconds Skin: No rashes, No breakdown Musculoskeletal: No Tenderness to Palpation of Joints or Extremities Neurological: Cranial nerves II-XII grossly intact, Neuro grossly intact Psych/Mental Status: Normal Affect, Appropriate Microbiology Past 72 Hours 06/03/20 15:50 Blood Culture (Wb) - Anticubital Right Blood Culture - Preliminary GNR lactose merchandiser 06/03/20 05:41 Urine, Catheterized Urine Culture - Preliminary Presumptive E. coli Laboratory Results 06/03/20 15:35: WBC 6.9, RBC 3.45 L, Hgb 11.1 L, Hct 32.4 L, MCV 93.9, MCH 32.2 H, MCHC 34.3, RDW Std Deviation 48.5 H, RDW Coeff of Arben 14.5, Plt Count 192, MPV 9.4, Immature Gran % (Auto) 0.400, Neut % (Auto) 68.1, Lymph % (Auto) 15.6 L , [place] % (Auto) 14.8 H, Eos % (Auto) 0.4, Baso % (Auto) 0.7, Absolute Neuts (auto) 4.7, Absolute Lymphs (auto) 1.07, Nucleated RBC % 0 06/03/20 15:35: PT 13.9, INR 1.1 06/03/20 15:35: Sodium 135 L, Potassium 3.2 L, Chloride 102, Carbon Dioxide 27.0, Anion Gap 6, BUN 17, Creatinine 1.03 H, Estim Creat Clear Calc 36.99, Est GFR (MDRD) Af Amer 66, Est GFR (MDRD) Non-Af 55 L, BUN/Creatinine Ratio 16.5, Glucose 102, Calcium 8.8, Total Bilirubin 0.50, AST 46 H, ALT 33, Alkaline Phosphatase 82, Troponin I < 0.015, Total Protein 6.7, Albumin 2.8 L, Globulin 3.9, Albumin/Globulin Ratio 0.7 L 06/03/20 15:35: Lactic Acid 1.0 06/03/20 15:41: Urine Color Yellow, Urine Clarity Cloudy, Urine pH 5.0, Ur Specific [place] 1.010, Urine Protein 30 H, Urine Glucose (UA) Normal, Urine Ketones Negative, Urine Occult Blood 150 H, Urine Nitrite Negative, Urine Bilirubin Negative, Urine Urobilinogen Normal, Ur Leukocyte Esterase 500 H, Urine RBC 0-5 SEEN, Urine WBC 25-50 SEEN, Ur Squamous Epith Cells 0 SEEN, Urine Bacteria 2+, Hyaline Casts 0-5 SEEN, Urine Mucus 0 SEEN 06/04/20 05:55: WBC 8.2, RBC 3.53 L, Hgb 10.9 L, Hct 32.9 L, MCV 93.2, MCH 30.9, MCHC 33.1, RDW Std Deviation 47.9 H, RDW Coeff of Arben 14.2, Plt Count 207, MPV 9 .3, Immature Gran % (Auto) 0.600, Neut % (Auto) 71.4 H, Lymph % (Auto) 16.7 L, [place] % (Auto) 10.4 H, Eos % (Auto) 0.4, Baso % (Auto) 0.5, Absolute Neuts (auto) 5.9, Absolute Lymphs (auto) 1.37, Nucleated RBC % 0 06/04/20 05:55: Sodium 139, Potassium 3.6, Chloride 108 H, Carbon Dioxide 24.0, Anion Gap 7, BUN 10, Creatinine 0.88, Estim Creat Clear Calc 43.30, Est GFR (MDRD) Af Amer 80, Est GFR (MDRD) Non-Af 66, BUN/Creatinine Ratio 11.4, Glucose 98, Calcium 8.0 L, Magnesium 1.8 Current Medications Acetaminophen (Acetaminophen 325 Mg Tablet) 650 mg PO Q6H PRN PRN PRN Reason: Pain Score 1-10/Temp > 100.7 F Atorvastatin Calcium (Atorvastatin Calcium 10 Mg Tablet) 10 mg PO QHS [facility] Last Admin: 06/03/20 22:07 Dose: 10 mg Documented by: Brimonidine Tartrate (Brimonidine 0.2% 5ml Bottle) 1 drop OPHTHALMIC BID [facility] Last Admin: 06/04/20 08:49 Dose: 1 drop Documented by: Diltiazem HCl (Diltiazem Cd 120 Mg Capsule) 120 mg PO DAILY [facility] Last Admin: 06/04/20 08:49 Dose: 120 mg Documented by: Enoxaparin Sodium (Enoxaparin 40 Mg/0.4 Ml Syringe) 40 mg SC DAILY [facility] Last Admin: 06/04/20 08:49 Dose: 40 mg Documented by: Famotidine (Famotidine 20 Mg Tablet) 20 mg PO BID [facility] Last Admin: 06/04/20 08:49 Dose: 20 mg Documented by: Sodium Chloride () 1,000 mls @ 100 mls/hr IV .Q10H [facility] Last Admin: 06/04/20 13:51 Dose: 100 mls/hr Documented by: Ceftriaxone Sodium (Rocephin) 1 gm in 50 mls @ 100 mls/hr IV Q24 [facility] Stop: 06/11/20 10:01 Last Infusion: 06/04/20 09:32 Dose: Infused Documented by: Sodium Chloride () 250 mls @ 15 mls/hr IV .[id number] PRN PRN Reason: Saline Flush Ibuprofen (Ibuprofen 400 Mg Tablet) 400 mg PO Q4H PRN PRN PRN Reason: Pain Score 1-10/Temp > 100.7 F Latanoprost (Latanoprost 0.005% 1 Bottle) 1 drop OPHTHALMIC QHS [facility] Losartan Potassium (Losartan Potassium 50 Mg Tablet) 75 mg PO DAILY [facility] Last Admin: 06/04/20 08:49 Dose: 75 mg Documented by: Melatonin (Melatonin 10 Mg Tablet) 5 mg PO QHS PRN PRN PRN Reason: SLEEP Last Admin: 06/03/20 22:24 Dose: 5 mg Documented by: Ondansetron HCl (Ondansetron 4 Mg/2 Ml Vial) 4 mg IV Q8H PRN PRN PRN Reason: NAUSEA/VOMITING Last Admin: 06/04/20 00:02 Dose: 4 mg Documented by: Sodium Chloride (0.9% Saline Lock 10 Ml Syringe) 10 - 40 ml IV UD PRN PRN Reason: SALINE FLUSH Last Admin: 06/04/20 00:02 Dose: 10 ml Documented by: Timolol Maleate (Timolol 0.5% 5ml Opth.Btl) 1 drop OPHTHALMIC BID [facility] Last Admin: 06/04/20 08:49 Dose: 1 drop Documented by: Medical Necessity - Tobacco Use Smoking Status: Former smoker Tobacco Use: Cigarettes Assessment/Plan 1. Acute E. coli UTI with associated GNR bacteremia- Brain CT without acute process. Chest x-ray unremarkable. Continue IV Rocephin pending sensitivities. PT/OT. Will repeat blood cultures. 2. Acute encephalopathy, suspect secondary to above-Resolved. Continue treatment per above. 3. Hypokalemia-replace per protocol, resolved. 4. Mild dehydration-resolved with IV fluids. 5. Valvular heart disease-echocardiogram 2018 with EF 67%, moderate mitral valve regurgitation, mild aortic insufficiency. 6. Hypertension-continue losartan with hold parameters. 7. Hyperlipidemia-continue statin. 8. Seasonal allergies-on levocetirizine, omalizumab. DVT prophylaxis- Lovenox sc This patient was seen by JAGJIT Herrera under the supervision of Dr. Gonzalez. <Tita Gonzalez - Last Filed: 06/04/20 16:17> - Physical Exam Vitals/I&O's: Vital Signs Temp Pulse Resp BP Pulse Ox 98.0 F 74 18 149/74 H 94 06/04/20 13:57 06/04/20 13:57 06/04/20 13:57 06/04/20 13:57 06/04/20 13:57 Oxygen Delivery Method Room Air Weight: 69.899 kg Body Mass Index (BMI) 26.4 Intake and Output for Last 24 Hours 06/02/20 06/03/20 06/04/20 23:59 23:59 23:59 Intake Total 1050 / 1400 3721.67 / 3721.67 Output Total 1850 / 1850 Balance 1050 / 950 1871.67 / 1871.67 Microbiology Past 72 Hours 06/03/20 15:50 Blood Culture (Wb) - Anticubital Right Blood Culture - Preliminary GNR lactose merchandiser 06/03/20 05:41 Urine, Catheterized Urine Culture - Preliminary Presumptive E. coli Laboratory Results 06/03/20 15:35: PT 13.9, INR 1.1 06/03/20 15:35: Sodium 135 L, Potassium 3.2 L, Chloride 102, Carbon Dioxide 27.0, Anion Gap 6, BUN 17, Creatinine 1.03 H, Estim Creat Clear Calc 36.99, Est GFR (MDRD) Af Amer 66, Est GFR (MDRD) Non-Af 55 L, BUN/Creatinine Ratio 16.5, Glucose 102, Calcium 8.8, Total Bilirubin 0.50, AST 46 H, ALT 33, Alkaline Phosphatase 82, Troponin I < 0.015, Total Protein 6.7, Albumin 2.8 L, Globulin 3.9, Albumin/Globulin Ratio 0.7 L 06/03/20 15:35: Lactic Acid 1.0 06/03/20 15:41: Urine RBC 0-5 SEEN, Urine WBC 25-50 SEEN, Ur Squamous Epith Cells 0 SEEN, Urine Bacteria 2+, Hyaline Casts 0-5 SEEN, Urine Mucus 0 SEEN 06/04/20 05:55: WBC 8.2, RBC 3.53 L, Hgb 10.9 L, Hct 32.9 L, MCV 93.2, MCH 30.9, MCHC 33.1, RDW Std Deviation 47.9 H, RDW Coeff of Arben 14.2, Plt Count 207, MPV 9.3, Immature Gran % (Auto) 0.600, Neut % (Auto) 71.4 H, Lymph % (Auto) 16.7 L, [place] % (Auto) 10.4 H, Eos % (Auto) 0.4, Baso % (Auto) 0.5, Absolute Neuts (auto) 5.9, Absolute Lymphs (auto) 1.37, Nucleated RBC % 0 06/04/20 05:55: Sodium 139, Potassium 3.6, Chloride 108 H, Carbon Dioxide 24.0, Anion Gap 7, BUN 10, Creatinine 0.88, Estim Creat Clear Calc 43.30, Est GFR (MDRD) Af Amer 80, Est GFR (MDRD) Non-Af 66, BUN/Creatinine Ratio 11.4, Glucose 98, Calcium 8.0 L, Magnesium 1.8 Current Medications Acetaminophen (Acetaminophen 325 Mg Tablet) 650 mg PO Q6H PRN PRN PRN Reason: Pain Score 1-10/Temp > 100.7 F Atorvastatin Calcium (Atorvastatin Calcium 10 Mg Tablet) 10 mg PO QHS [facility] Last Admin: 06/03/20 22:07 Dose: 10 mg Documented by: Brimonidine Tartrate (Brimonidine 0.2% 5ml Bottle) 1 drop OPHTHALMIC BID [facility] Last Admin: 06/04/20 08:49 Dose: 1 drop Documented by: Diltiazem HCl (Diltiazem Cd 120 Mg Capsule) 120 mg PO DAILY [facility] Last Admin: 06/04/20 08:49 Dose: 120 mg Documented by: Enoxaparin Sodium (Enoxaparin 40 Mg/0.4 Ml Syringe) 40 mg SC DAILY [facility] Last Admin: 06/04/20 08:49 Dose: 40 mg Documented by: Famotidine (Famotidine 20 Mg Tablet) 20 mg PO BID [facility] Last Admin: 06/04/20 08:49 Dose: 20 mg Documented by: Sodium Chloride () 1,000 mls @ 100 mls/hr IV .Q10H [facility] Last Admin: 06/04/20 13:51 Dose: 100 mls/hr Documented by: Ceftriaxone Sodium (Rocephin) 1 gm in 50 mls @ 100 mls/hr IV Q24 [facility] Stop: 06/11/20 10:01 Last Infusion: 06/04/20 09:32 Dose: Infused Documented by: Sodium Chloride () 250 mls @ 15 mls/hr IV .[id number] PRN PRN Reason: Saline Flush Ibuprofen (Ibuprofen 400 Mg Tablet) 400 mg PO Q4H PRN PRN PRN Reason: Pain Score 1-10/Temp > 100.7 F Latanoprost (Latanoprost 0.005% 1 Bottle) 1 drop OPHTHALMIC QHS [facility] Losartan Potassium (Losartan Potassium 50 Mg Tablet) 75 mg PO DAILY [facility] Last Admin: 06/04/20 08:49 Dose: 75 mg Documented by: Melatonin (Melatonin 10 Mg Tablet) 5 mg PO QHS PRN PRN PRN Reason: SLEEP Last Admin: 06/03/20 22:24 Dose: 5 mg Documented by: Ondansetron HCl (Ondansetron 4 Mg/2 Ml Vial) 4 mg IV Q8H PRN PRN PRN Reason: NAUSEA/VOMITING Last Admin: 06/04/20 00:02 Dose: 4 mg Documented by: Sodium Chloride (0.9% Saline Lock 10 Ml Syringe) 10 - 40 ml IV UD PRN PRN Reason: SALINE FLUSH Last Admin: 06/04/20 00:02 Dose: 10 ml Documented by: Timolol Maleate (Timolol 0.5% 5ml Opth.Btl) 1 drop OPHTHALMIC BID [facility] Last Admin: 06/04/20 08:49 Dose: 1 drop Documented by: Assessment/Plan This patient was seen in conjunction with Odette Dotson ENTER[employer]D ARCHITECT. I have independently interviewed and examined the patient and reviewed pertinent historical, laboratory, and other data. Please refer to her note for patient's presentation, findings, and recommendations. Patient was seen and examined. She feels much improved. Denied any fever or chills. No acute events overnight. Vitals were reviewed -stable Physical Exam: Gen: Comfortable, not pale, not jaundiced, alert oriented x3 CVS:HS I +II, regular, no murmurs RESP: Diminished at lung bases GI: BS present and normal, nontender, no palpable organs EXT:No edema Labs reviewed: ASSESSMENT: 1. Acute E. coli UTI 2. GNR bacteremia 3. Acute encephalopathy 4. Hypokalemia 5. Dehydration 6. Hypertension 7. Hyperlipidemia 8. Seasonal allergies Meds reviewed Plan: Continue on IV ceftriaxone Repeat blood cultures Inpatient E&M: 48947 Subs Hosp L2
--- NOTE | 2020-06-04 16:13 | CHAPLAIN ---
Type of Pastoral Visit _x__ Initial Visit ___ Follow-up Visit ___ On-call Visit ___ General Patient Visit ___ Spiritual Assessment ___ Family Conference ___ Bereavement ___ Rapid Response ___ Code Blue ___ Other (describe below) Pastoral Care Referral From _x__ Patient ___ Family ___ Nurse ___ Physician ___ Yard Caller ___ Bed Operator ___ Other (describe below) Sacrament/Intervention _x__ Active listening ___ Anointing ___ Religion ___ Bereavement ___ Communion _x__ Delmi exploration ___ _x__ Life review _x__ Prayer ___ Reconciliation ___ Sacrament of Sick _x__ Supportive presence ___ Wedding ___ Other (describe below) Pastoral Comments patient states her concerns as getting home and finding a place of nondenominational in [place] after COVID blows over; pt moved to [place] 4 years ago to be with her family; pt is ; pt misses christian and wants to find a place of connection for herself; pt welcomes spiritual care support and prayer.
[2020-06-04 19:52] VITALS: BP 160/68; PULSE 78; RESP 18; TEMP 36.6; O2SAT 95
[2020-06-04] MEDS: Atorvastatin Calcium 10 MG Tablet PO (19:58)
[2020-06-04] MEDS: MELATONIN 10 MG TABLET 5 MG PO (19:58)
[2020-06-04] MEDS: Latanoprost 0.005% 1 Bottle 1 DRP OPHTHALMIC (19:59)
[2020-06-05] MEDS: 0.9% Normal Saline 1,000 ML 100 ML IV (00:18)
[2020-06-05 01:08] VITALS: BP 158/84; PULSE 74; RESP 18; TEMP 36.8; O2SAT 93
[2020-06-05 04:31] VITALS: BP 177/67; PULSE 82; RESP 18; TEMP 36.6; O2SAT 93
[2020-06-05] MEDS: Losartan Potassium 50 MG Tablet 75 MG PO (04:33)
[2020-06-05] MEDS: Mag Hydrox/Al Hydrox/Simeth 30 ML UDC PO (06:03)
[2020-06-05 06:11] LABS: Hematocrit 33.9 % (37-47); Hemoglobin 10.9 g/dL (12.0-15.0); Mean Corp Hgb Conc 32.2 g/dL (32-36); Mean Corpuscular Hgb 29.5 pg (27.0-32.0); Mean Corpuscular Volume 91.9 fL (81-99); Mean Platelet Vol. 9.1 fl (6.2-12.0); Platelet Count 239 K/mm3 (150-450); RBC Distribution Width SD 47.5 fl (35.1-43.9); Red Blood Count 3.69 M/mm3 (4.2-5.4); White Blood Count 7.9 K/mm3 (4.4-11.0)
[2020-06-05 06:35] LABS: Anion Gap 7 (5-15); BUN 6 mg/dL (7-18); BUN/Creat Ratio 8.6 RATIO (10-20); Calcium,Total 8.5 mg/dL (8.5-10.1); Chloride 111 mmol/L (98-107); EST Glomerular Filtration Rate 86 mL/min (>60); Est Glom Filt Rate - Afr Amer 103 mL/min (>60); Glucose 102 mg/dL (74-106); Potassium 3.4 mmol/L (3.5-5.1); Sodium Level 141 mmol/L (136-145)
[2020-06-05 07:44] LABS: Magnesium 1.8 mg/dL (1.6-2.6)
[2020-06-05 08:07] VITALS: BP 135/54; PULSE 73; RESP 18; TEMP 36.7; O2SAT 96
--- NOTE | 2020-06-05 10:24 | RAD_ITS ---
STUDY: X-RAY CHEST REASON FOR EXAM: Female, 80 years old. SOB TECHNIQUE: Single AP portable view of the chest. COMPARISON: Comparison is made with prior study dated 06/03/2020. FINDINGS: There now is evidence of a blunting of both cause phrenic angles with increased markings at the lung bases suggests mild bibasilar atelectasis and/or infiltrates. Mild degree of vascular congestion. Normal size heart. Normal mediastinum and nidia. Normal visualized pulmonary arteries. There is atherosclerotic calcification of the aortic arch with tortuosity. There are diffuse degenerative changes of the visualized thoracic spine. Normal visualized ribs, clavicles, and shoulders. There is no demonstrated abnormality of the visualized soft tissue structures of the upper abdomen. RAD/Chest 1 View (Portable) IMPRESSION: Small bilateral pleural effusions with underlying infiltration and/or atelectasis superimposed on mild degree of CHF. Electronically Signed: Janes Robertson MD at 10:55 EST , Service support ,
[2020-06-05] MEDS: levoFLOXacin IV 750 MG/150 ML BAG 100 MG IV (10:43)
[2020-06-05] MEDS: Enoxaparin 40 MG/0.4 ML Syringe SC (10:44)
[2020-06-05] MEDS: Famotidine 20 MG Tablet PO (10:44)
[2020-06-05] MEDS: dilTIAZem CD 120 MG Capsule PO (10:44)
[2020-06-05] MEDS: Timolol 0.5% 5ML OPTH.BTL 1 DRP OPHTHALMIC (10:45)
[2020-06-05] MEDS: Furosemide 20 MG/2 ML VIAL IV (10:45)
[2020-06-05] MEDS: BRIMONIDINE 0.2% 5ML BOTTLE 1 DRP OPHTHALMIC (10:45)
--- NOTE | 2020-06-05 11:07 | DCINST_ITS ---
- Discharge Diagnoses Current Active Problems: Current Active and Chronic Problems (Last Reviewed 06/03/20 @ 20:[address] Erica Anand DO) Nonrheumatic mitral (valve) insufficiency (Chronic) Nonrheumatic aortic (valve) insufficiency (Chronic) Secondary pulmonary arterial hypertension (Chronic) Essential (primary) hypertension (Chronic) Hyperlipidemia (Chronic) You will use the following diet at home:: No restrictions Discharge Activity: Return to Normal Activity Call your doctor if you observe: Shortness of breath, Dizziness, Fainting spells, Chest pain Allergies/Adverse Reactions: Allergies oxycodone [From Percocet] Adverse Reaction (Verified 06/03/20 15:10) Upset Stomach Medications to take at Discharge Biotin 10,000 mcg PO DAILY 05/28/17 Diltiazem CD [Cardizem CD] 120 mg PO DAILY 05/28/17 Famotidine [Pepcid] 40 mg PO BID 05/28/17 atorvastatin 10 mg tablet 10 mg PO QHS tab 10/05/19 brimonidine 0.2 % eye drops 1 drp OPHTHALMIC BID ml 10/05/19 omalizumab 75 mg/0.5 mL subcutaneous syringe 150 mg SC Q4W 10/05/19 timolol maleate 0.5 % eye drops 1 drp OPHTHALMIC BID ml 10/05/19 Losartan Potassium [Cozaar] 75 mg PO DAILY 05/01/20 levocetirizine 5 mg tablet 5 mg PO DAILY tab 05/16/20 Cholecalciferol (Vitamin D3) [Vitamin D3] 1,000 unit PO DAILY 06/03/20 Cyanocobalamin (Vitamin B-12) [Vitamin B-12] 1,000 mcg PO DAILY 06/03/20 Hydroxyzine HCl 25 mg PO QHS PRN 06/03/20 Latanoprostene Bunod [Vyzulta] 1 drp EACH EYE DAILY 06/03/20 Vit A/Vit C/Vit E/Zinc/Copper [Preservision Areds Softgel] 1 ea PO BID 06/03/20 Levofloxacin [Levaquin] 750 mg PO DAILY 6 Days #6 tab 06/05/20 The following prescriptions were given: Levofloxacin [Levaquin] 750 mg PO DAILY 6 Days #6 tab Transmission Status: Pending to [facility]/pharmacy #[id number] Primary Care Physician: Bjorn Soares MD [Primary Care Provider] - Please follow up with your Primary Care Physician in: 3-5 Days Test Results: Test results from this visit will be discussed in further detail at your follow- up appointment, if applicable. Proposed Discharge Date: 06/05/20
--- NOTE | 2020-06-05 11:10 | DS.PCM_ITS ---
<Odette Dotson SEISMOGRAPHER - Last Filed: 06/05/20 11:18> Discharge Date and Diagnosis Date of Admission: 06/03/20 Date of Discharge: 06/05/20 - Primary Discharge Diagnosis Acute Problems: 1. Acute E. coli UTI with associated GNR bacteremia 2. Acute encephalopathy, suspect secondary to above 3. Hypokalemia 4. Mild dehydration 5. Valvular heart disease 6. Hypertension 7. Hyperlipidemia 8. Seasonal allergies - Secondary Discharge Diagnosis Chronic Problems: Chronic Problems (Last Reviewed 06/03/20 @ 20:[address] Erica Anand, DO) Nonrheumatic mitral (valve) insufficiency (Chronic) Nonrheumatic aortic (valve) insufficiency (Chronic) Secondary pulmonary arterial hypertension (Chronic) Essential (primary) hypertension (Chronic) Hyperlipidemia (Chronic) Hospital Course and Treatment Imaging Results: Diagnostic Data Brain CT 06/03/20 15:20 IMPRESSION: 1. No acute intracranial disease. 2. Old right basal ganglia lacunar infarct. 3. No significant interval change. Individualized dose optimization techniques were used for this CT. at 1648 Reported and signed by: Navin Kumar MD Electronically Signed: Navin Kumar MD at 16:47 EST Tel , Service support , Chest X-Ray 06/05/20 10:24 IMPRESSION: Small bilateral pleural effusions with underlying infiltration and/or atelectasis superimposed on mild degree of CHF. Electronically Signed: Janes Robertson MD at 10:55 EST , Service support , Operations: None Procedures: None Summary of Care Provided: The patient is a 80 year old F admitted 06/03/2020 due to weakness, confusion. 1. Acute E. coli UTI with associated GNR bacteremia- Brain CT without acute process. Chest x-ray unremarkable. Antibiotics changed to Levaquin based on sensitivities, continue at discharge to complete course. 05/04 BC + GNR. Repeat blood cultures pending however no growth thus far. Patient has no leukocytosis, no fever. Weakness and confusion resolved. Doing well with therapy, no ongoing therapy recommended. Follow-up with PCP in 3 to 5 days. 2. Acute encephalopathy, suspect secondary to above-Resolved. Continue treatment per above. 3. Hypokalemia-replaced per protocol. 4. Mild dehydration-resolved with IV fluids. Patient with mild crackles on exam in bases, chest x-ray showed small bilateral pleural effusions. IV Lasix x1 given. Suspect due to significant fluid resuscitation. Oxygen stable on room air, denies shortness of breath. 5. Valvular heart disease-echocardiogram 2018 with EF 67%, moderate mitral valve regurgitation, mild aortic insufficiency. 6. Hypertension-continue losartan. 7. Hyperlipidemia-continue statin. 8. Seasonal allergies-on levocetirizine, omalizumab. General: Alert, Oriented x3, Cooperative HEENT: Atraumatic, PERRLA, EOMI, Normocephalic Neck: Supple, No JVD, Negative Carotid Bruits Lungs: Clear to auscultation, Diminished Cardiovascular: Regular rate, Murmur Abdomen: Bowel Sounds Present, Soft, Non Tender Extremities: No clubbing, No cyanosis, No edema, Capillary Refill Less than 3 Seconds Skin: No rashes, No breakdown Musculoskeletal: No Tenderness to Palpation of Joints or Extremities Neurological: Cranial nerves II-XII grossly intact, Neuro grossly intact Psych/Mental Status: Normal Affect, Appropriate Patient seen and examined prior to discharge. Physical assessment as noted above. Patient is stable for discharge with follow up recommendations as noted above. This patient was seen by JAGJIT Herrera under the supervision of Dr. Gonzalez. - Physical Exam Vitals/I&O's: Vital Signs Temp Pulse Resp BP Pulse Ox 98.0 F 73 18 135/54 H 96 06/05/20 08:07 06/05/20 08:07 06/05/20 08:07 06/05/20 08:07 06/05/20 08:07 Oxygen Delivery Method Room Air Weight: 154 lb 1.6 oz Body Mass Index (BMI) 26.4 Intake and Output for Last 24 Hours 06/03/20 06/04/20 06/05/20 23:59 23:59 23:59 Intake Total 1050 / 1400 5371.67 / 5571.67 1550 / 1550 Output Total 2950 / 3450 1200 / 1200 Balance 1050 / 950 2421.67 / 2121.67 350 / 350 Microbiology Past 72 Hours 06/03/20 05:41 Urine, Catheterized Urine Culture - Final Presumptive E. 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 Laboratory Results 06/05/20 05:46: WBC 7.9, RBC 3.69 L, Hgb 10.9 L, Hct 33.9 L, MCV 91.9, MCH 29.5, MCHC 32.2, RDW Std Deviation 47.5 H, RDW Coeff of Arben 14.0, Plt Count 239, MPV 9.1 06/05/20 05:46: Sodium 141, Potassium 3.4 L, Chloride 111 H, Carbon Dioxide 23.0, Anion Gap 7, BUN 6 L, Creatinine 0.70, Estim Creat Clear Calc 38.10, Est GFR (MDRD) Af Amer 103, Est GFR (MDRD) Non-Af 86, BUN/Creatinine Ratio 8.6 L, Glucose 102, Calcium 8.5 06/05/20 05:46: Magnesium 1.8 Current Medications Acetaminophen (Acetaminophen 325 Mg Tablet) 650 mg PO Q6H PRN PRN PRN Reason: Pain Score 1-10/Temp > 100.7 F Al Hydroxide/Mg Hydroxide (Mag Hydrox/Al Hydrox/Simeth 30 Ml Udc) 30 ml PO Q4H PRN PRN PRN Reason: HEARTBURN Last Admin: 06/05/20 06:03 Dose: 30 ml Documented by: Atorvastatin Calcium (Atorvastatin Calcium 10 Mg Tablet) 10 mg PO QHS [facility] Last Admin: 06/04/20 19:58 Dose: 10 mg Documented by: Brimonidine Tartrate (Brimonidine 0.2% 5ml Bottle) 1 drop OPHTHALMIC BID [facility] Last Admin: 06/05/20 10:45 Dose: 1 drop Documented by: Diltiazem HCl (Diltiazem Cd 120 Mg Capsule) 120 mg PO DAILY [facility] Last Admin: 06/05/20 10:44 Dose: 120 mg Documented by: Enoxaparin Sodium (Enoxaparin 40 Mg/0.4 Ml Syringe) 40 mg SC DAILY [facility] Last Admin: 06/05/20 10:44 Dose: 40 mg Documented by: Famotidine (Famotidine 20 Mg Tablet) 20 mg PO BID [facility] Last Admin: 06/05/20 10:44 Dose: 20 mg Documented by: Sodium Chloride () 250 mls @ 15 mls/hr IV .[id number] PRN PRN Reason: Saline Flush Levofloxacin (Levaquin Iv) 750 mg in 150 mls @ 100 mls/hr IV Q48 [facility] Last Admin: 06/05/20 10:43 Dose: 100 mls/hr Documented by: Ibuprofen (Ibuprofen 400 Mg Tablet) 400 mg PO Q4H PRN PRN PRN Reason: Pain Score 1-10/Temp > 100.7 F Latanoprost (Latanoprost 0.005% 1 Bottle) 1 drop OPHTHALMIC QHS [facility] Last Admin: 06/04/20 19:59 Dose: 1 drop Documented by: Losartan Potassium (Losartan Potassium 50 Mg Tablet) 75 mg PO DAILY [facility] Last Admin: 06/05/20 04:33 Dose: 75 mg Documented by: Melatonin (Melatonin 10 Mg Tablet) 5 mg PO QHS PRN PRN PRN Reason: SLEEP Last Admin: 06/04/20 19:58 Dose: 5 mg Documented by: Ondansetron HCl (Ondansetron 4 Mg/2 Ml Vial) 4 mg IV Q8H PRN PRN PRN Reason: NAUSEA/VOMITING Last Admin: 06/04/20 00:02 Dose: 4 mg Documented by: Sodium Chloride (0.9% Saline Lock 10 Ml Syringe) 10 - 40 ml IV UD PRN PRN Reason: SALINE FLUSH Last Admin: 06/04/20 00:02 Dose: 10 ml Documented by: Timolol Maleate (Timolol 0.5% 5ml Opth.Btl) 1 drop OPHTHALMIC BID [facility] Last Admin: 06/05/20 10:45 Dose: 1 drop Documented by: Discharge Diet: No Restrictions Discharge Activity: Return to Normal Activity Call your doctor if you observe: Shortness of breath, Dizziness, Fainting spells, Chest pain Home Medications: Medications to take at Discharge Biotin 10,000 mcg PO DAILY 05/28/17 Diltiazem CD [Cardizem CD] 120 mg PO DAILY 05/28/17 Famotidine [Pepcid] 40 mg PO BID 05/28/17 atorvastatin 10 mg tablet 10 mg PO QHS tab 10/05/19 brimonidine 0.2 % eye drops 1 drp OPHTHALMIC BID ml 10/05/19 omalizumab 75 mg/0.5 mL subcutaneous syringe 150 mg SC Q4W 10/05/19 timolol maleate 0.5 % eye drops 1 drp OPHTHALMIC BID ml 10/05/19 Losartan Potassium [Cozaar] 75 mg PO DAILY 05/01/20 levocetirizine 5 mg tablet 5 mg PO DAILY tab 05/16/20 Cholecalciferol (Vitamin D3) [Vitamin D3] 1,000 unit PO DAILY 06/03/20 Cyanocobalamin (Vitamin B-12) [Vitamin B-12] 1,000 mcg PO DAILY 06/03/20 Hydroxyzine HCl 25 mg PO QHS PRN 06/03/20 Latanoprostene Bunod [Vyzulta] 1 drp EACH EYE DAILY 06/03/20 Vit A/Vit C/Vit E/Zinc/Copper [Preservision Areds Softgel] 1 ea PO BID 06/03/20 Levofloxacin [Levaquin] 750 mg PO DAILY 6 Days #6 tab 06/05/20 Following Prescriptions Were Given to Patient: Levofloxacin [Levaquin] 750 mg PO DAILY 6 Days #6 tab Transmission Status: Received by [id number] Primary Care Physician: Bjorn Soares MD [Primary Care Provider] - Please follow up with your Primary Care Physician in: 3-5 Days Disposition: Home Minutes spent on discharge:: 35 Patient Condition:: Stable Medical Necessity - Tobacco Use Smoking Status: Former smoker Tobacco Use: Cigarettes Meaningful Use Info Meaningful Use Diagnoses (Choose all that apply): None applicable <[place] - Last Filed: 06/05/20 14:07> Discharge Date and Diagnosis - Secondary Discharge Diagnosis Chronic Problems: Chronic Problems (Last Reviewed 06/03/20 @ 20:[address] Erica Anand, DO) Nonrheumatic mitral (valve) insufficiency (Chronic) Nonrheumatic aortic (valve) insufficiency (Chronic) Secondary pulmonary arterial hypertension (Chronic) Essential (primary) hypertension (Chronic) Hyperlipidemia (Chronic) Hospital Course and Treatment Imaging Results: 06/05/20 10:24 Chest 1 View (Portable) [RAD] Stat Summary of Care Provided: This patient was seen in conjunction with Odette Dotson NP. I have independently interviewed and examined the patient and reviewed pertinent historical, laboratory, and other data. Please refer to her note for patient's presentation, findings, and recommendations. 80-year-old female with past medical history of hypertension, who lives with his son comes in with generalized weakness and confusion. Patient was found lying on the floor. She had complained of generalized ache. She reported mild urinary frequency but denied any dysuria or flank pain. Patient's work-up in the ED was suggestive of acute UTI. She was admitted to the telemetry floor, on IV fluids, on IV ceftriaxone. Urine cultures grew E. coli that was resistant to IV ceftriaxone. 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 Patient continued to be stable throughout this hospital stay. Not have any fever or leukocytosis. She was discharge on Levaquin to complete 1 week of total antibiotics treatment. Physical Exam: Gen: Comfortable, not pale, not jaundiced, alert oriented x3 CVS:HS I +II, regular, no murmurs RESP: Diminished at lung bases GI: BS present and normal, nontender, no palpable organs EXT:No edema - Physical Exam Vitals/I&O's: Vital Signs Temp Pulse Resp BP Pulse Ox 98.0 F 62 18 146/63 H 96 06/05/20 08:07 06/05/20 12:07 06/05/20 08:07 06/05/20 12:07 06/05/20 08:07 Oxygen Delivery Method Room Air Weight: 69.899 kg Body Mass Index (BMI) 26.4 Orthostatic Vital Signs Start: 06/05/20 11:09 Freq: q24h Status: Active Protocol: Activity Type Activity Date Activity User E-Sign Co-Sign Detail Recorded Client Recorded Date Recorded By Document 06/05/20 12:07 [facility] [id number] 06/05/20 12:13 [facility] 06/05/20 12:07 Orthostatic Vitals Standing -Blood Pressure (90/60-120/80) 151/81 H -Extremity Use Right Arm -Pulse Rate (60-100) 77 Sitting -Blood Pressure (90/60-120/80) 148/83 H -Extremity Use Right Arm -Pulse Rate (60-100) 70 Lying -Blood Pressure (90/60-120/80) 146/63 H -Extremity Use Right Arm -Pulse Rate (60-100) 62 Intake and Output for Last 24 Hours 06/03/20 06/04/20 06/05/20 23:59 23:59 23:59 Intake Total 1050 / 1400 5371.67 / 5571.67 1550 / 1550 Output Total 2950 / 3450 1200 / 1200 Balance 1050 / 950 2421.67 / 2121.67 350 / 350 Microbiology Past 72 Hours 06/03/20 05:41 Urine, Catheterized Urine Culture - Final Presumptive E. 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 Laboratory Results 06/05/20 05:46: WBC 7.9, RBC 3.69 L, Hgb 10.9 L, Hct 33.9 L, MCV 91.9, MCH 29.5, MCHC 32.2, RDW Std Deviation 47.5 H, RDW Coeff of Arben 14.0, Plt Count 239, MPV 9.1 06/05/20 05:46: Sodium 141, Potassium 3.4 L, Chloride 111 H, Carbon Dioxide 23.0, Anion Gap 7, BUN 6 L, Creatinine 0.70, Estim Creat Clear Calc 38.10, Est GFR (MDRD) Af Amer 103, Est GFR (MDRD) Non-Af 86, BUN/Creatinine Ratio 8.6 L, Glucose 102, Calcium 8.5 06/05/20 05:46: Magnesium 1.8 Current Medications Acetaminophen (Acetaminophen 325 Mg Tablet) 650 mg PO Q6H PRN PRN PRN Reason: Pain Score 1-10/Temp > 100.7 F Al Hydroxide/Mg Hydroxide (Mag Hydrox/Al Hydrox/Simeth 30 Ml Udc) 30 ml PO Q4H PRN PRN PRN Reason: HEARTBURN Last Admin: 06/05/20 06:03 Dose: 30 ml Documented by: Atorvastatin Calcium (Atorvastatin Calcium 10 Mg Tablet) 10 mg PO QHS [facility] Last Admin: 06/04/20 19:58 Dose: 10 mg Documented by: Brimonidine Tartrate (Brimonidine 0.2% 5ml Bottle) 1 drop OPHTHALMIC BID [facility] Last Admin: 06/05/20 10:45 Dose: 1 drop Documented by: Diltiazem HCl (Diltiazem Cd 120 Mg Capsule) 120 mg PO DAILY [facility] Last Admin: 06/05/20 10:44 Dose: 120 mg Documented by: Enoxaparin Sodium (Enoxaparin 40 Mg/0.4 Ml Syringe) 40 mg SC DAILY [facility] Last Admin: 06/05/20 10:44 Dose: 40 mg Documented by: Famotidine (Famotidine 20 Mg Tablet) 20 mg PO BID [facility] Last Admin: 06/05/20 10:44 Dose: 20 mg Documented by: Sodium Chloride () 250 mls @ 15 mls/hr IV .[id number] PRN PRN Reason: Saline Flush Levofloxacin (Levaquin Iv) 750 mg in 150 mls @ 100 mls/hr IV Q48 [facility] Last Admin: 06/05/20 10:43 Dose: 100 mls/hr Documented by: Ibuprofen (Ibuprofen 400 Mg Tablet) 400 mg PO Q4H PRN PRN PRN Reason: Pain Score 1-10/Temp > 100.7 F Latanoprost (Latanoprost 0.005% 1 Bottle) 1 drop OPHTHALMIC QHS [facility] Last Admin: 06/04/20 19:59 Dose: 1 drop Documented by: Losartan Potassium (Losartan Potassium 50 Mg Tablet) 75 mg PO DAILY [facility] Last Admin: 06/05/20 04:33 Dose: 75 mg Documented by: Melatonin (Melatonin 10 Mg Tablet) 5 mg PO QHS PRN PRN PRN Reason: SLEEP Last Admin: 06/04/20 19:58 Dose: 5 mg Documented by: Ondansetron HCl (Ondansetron 4 Mg/2 Ml Vial) 4 mg IV Q8H PRN PRN PRN Reason: NAUSEA/VOMITING Last Admin: 06/04/20 00:02 Dose: 4 mg Documented by: Sodium Chloride (0.9% Saline Lock 10 Ml Syringe) 10 - 40 ml IV UD PRN PRN Reason: SALINE FLUSH Last Admin: 06/04/20 00:02 Dose: 10 ml Documented by: Timolol Maleate (Timolol 0.5% 5ml Opth.Btl) 1 drop OPHTHALMIC BID [facility] Last Admin: 06/05/20 10:45 Dose: 1 drop Documented by: Inpatient E&M: [id number] [facility]
--- NOTE | 2020-06-05 11:43 | PHA.DC.MC ---
Pharmacy Service has performed discharge medication reconciliation and counseling for this patient. 1. LEVOFLOXACIN 750MG PO DAILY X 6 DAYS The patient's discharge medication list was reviewed for discrepancies and discrepancies were resolved. Home Medications Biotin 10,000 mcg PO DAILY 05/28/17 Diltiazem CD [Cardizem CD] 120 mg PO DAILY 05/28/17 Famotidine [Pepcid] 40 mg PO BID 05/28/17 atorvastatin 10 mg tablet 10 mg PO QHS tab 10/05/19 brimonidine 0.2 % eye drops 1 drp OPHTHALMIC BID ml 10/05/19 omalizumab 75 mg/0.5 mL subcutaneous syringe 150 mg SC Q4W 10/05/19 timolol maleate 0.5 % eye drops 1 drp OPHTHALMIC BID ml 10/05/19 Losartan Potassium [Cozaar] 75 mg PO DAILY 05/01/20 levocetirizine 5 mg tablet 5 mg PO DAILY tab 05/16/20 Cholecalciferol (Vitamin D3) [Vitamin D3] 1,000 unit PO DAILY 06/03/20 Cyanocobalamin (Vitamin B-12) [Vitamin B-12] 1,000 mcg PO DAILY 06/03/20 Hydroxyzine HCl 25 mg PO QHS PRN 06/03/20 Latanoprostene Bunod [Vyzulta] 1 drp EACH EYE DAILY 06/03/20 Vit A/Vit C/Vit E/Zinc/Copper [Preservision Areds Softgel] 1 ea PO BID 06/03/20 Levofloxacin [Levaquin] 750 mg PO DAILY 6 Days #6 tab 06/05/20 The patient was counseled on the following discharge medications and changes in medications for homegoing were reviewed. The Reason for Use, instructions for use, and potential side effects were reviewed for all new medications. The patient's questions regarding all of their medications were answered. The patient was able to verbally demonstrate an understanding of their discharge medications. Patient counseled by practice or student teacher, Domonique.
[2020-06-05 12:07] VITALS: BP 146/63; BP 148/83; BP 151/81; PULSE 62; PULSE 70; PULSE 77
[2020-06-05 14:08] VITALS: BP 138/78; PULSE 72; RESP 18; TEMP 36.8; O2SAT 97
== END 2020-06-05 14:38 | disposition home or self-care (01) | DRG 689 ==
LOC: ED 15:54 → MS3 17:50
PROVIDERS: Nurse Practitioner Family; Admitting Provider Internal Medicine; Emergency Provider Emergency Medicine; PCP Family Medicine; Visit Provider Internal Medicine
DX: N39.0 Urinary tract infection, site not specified (principal); G93.41 Metabolic encephalopathy; N17.9 Acute kidney failure, unspecified; R78.81 Bacteremia; B96.20 Unspecified Escherichia coli [E. coli] as the cause of diseases classified elsewhere; E87.6 Hypokalemia; E86.0 Dehydration; E78.5 Hyperlipidemia, unspecified; J30.2 Other seasonal allergic rhinitis; I10 Essential (primary) hypertension; I34.0 Nonrheumatic mitral (valve) insufficiency; I35.1 Nonrheumatic aortic (valve) insufficiency; I27.21 Secondary pulmonary arterial hypertension; K21.9 Gastro-esophageal reflux disease without esophagitis; H40.9 Unspecified glaucoma; D64.9 Anemia, unspecified; Z86.16 Personal history of COVID-19; Z85.828 Personal history of other malignant neoplasm of skin; Z85.820 Personal history of malignant melanoma of skin; Z86.19 Personal history of other infectious and parasitic diseases; Z79.899 Other long term (current) drug therapy; Z87.891 Personal history of nicotine dependence; Z86.73 Personal history of transient ischemic attack (TIA), and cerebral infarction without residual deficits
CPT/HCPCS: 36415; 70450; 71045; 80048; 80053; 81001; 83605; 83735; 84484; 85025; 85027; 85610; 87040; 87077; 87086; 87088; 87186; 93005; 97161; 97166; 99285; J7030; A4216; J1940; J2405

== ENCOUNTER 2020-06-24 13:43 | Outpatient (CLI) | payer MEDICARE, OTHER, SELFPAY ==
[2020-06-24 13:57] VITALS: BP 135/57; PULSE 71; RESP 16; TEMP 36.8; O2SAT 97; BMI 26.4
[2020-06-24] MEDS: Omalizumab 150 MG/ML Syringe 300 MG SQ (14:02)
== END 2020-06-24 16:00 ==
LOC: MEDOUTP 13:45
PROVIDERS: PCP Family Medicine; Referring Provider Specialist; Visit Provider Specialist
DX: L50.0 Allergic urticaria (principal)
CPT/HCPCS: 96372; J2357

== ENCOUNTER 2020-07-22 13:57 | Outpatient (CLI) | payer MEDICARE, OTHER, SELFPAY ==
[2020-07-22 14:04] VITALS: BP 126/54; PULSE 64; RESP 16; TEMP 36.4; O2SAT 98; BMI 25.5
[2020-07-22] MEDS: Omalizumab 150 MG/ML Syringe 300 MG SQ (14:07)
== END 2020-07-22 16:00 | disposition home or self-care (01) ==
LOC: MEDOUTP 13:57
PROVIDERS: PCP Family Medicine; Referring Provider Specialist; Visit Provider Specialist
DX: L50.0 Allergic urticaria (principal)
CPT/HCPCS: 96372; J2357

== ENCOUNTER 2020-08-20 13:50 | Outpatient (CLI) | payer MEDICARE, OTHER, SELFPAY ==
[2020-08-20] MEDS: Omalizumab 150 MG/ML Syringe 300 MG SQ (14:05)
[2020-08-20 14:09] VITALS: BP 146/59; PULSE 60; RESP 16; TEMP 36.1; O2SAT 98; BMI 25.5
== END 2020-08-20 16:00 ==
LOC: MEDOUTP 13:53
PROVIDERS: PCP Family Medicine; Referring Provider Specialist; Visit Provider Specialist
DX: L50.0 Allergic urticaria (principal)
CPT/HCPCS: 96372; J2357

== ENCOUNTER → 2020-09-18 13:53 | Outpatient (CLI) | payer MEDICARE, OTHER, SELFPAY ==
[2020-08-20 14:09] VITALS: BMI 25.5
[2020-09-18 14:08] VITALS: BP 161/66; PULSE 63; RESP 16; TEMP 36.2; O2SAT 97; BMI 24.2
[2020-09-18] MEDS: Omalizumab 150 MG/ML Syringe 300 MG SQ (14:17)
== END ==
PROVIDERS: PCP Family Medicine; Referring Provider Specialist; Visit Provider Specialist
DX: L50.0 Allergic urticaria (principal)
CPT/HCPCS: 96372; J2357

== ENCOUNTER → 2020-10-16 14:35 | Outpatient (CLI) | payer MEDICARE, OTHER, SELFPAY ==
[2020-09-18 14:08] VITALS: BMI 24.2
[2020-10-16 14:49] VITALS: BP 141/50; PULSE 63; RESP 16; TEMP 36.8; O2SAT 97; BMI 24.5
[2020-10-16] MEDS: Omalizumab 150 MG/ML Syringe 300 MG SQ (14:54)
== END ==
PROVIDERS: PCP Family Medicine; Referring Provider Specialist; Visit Provider Specialist
DX: L50.0 Allergic urticaria (principal)
CPT/HCPCS: 96372; J2357

== ENCOUNTER → 2020-11-13 14:34 | Outpatient (CLI) | payer MEDICARE, OTHER, SELFPAY ==
[2020-10-16 14:49] VITALS: BMI 24.5
[2020-11-13 14:41] VITALS: BP 188/55; PULSE 51; RESP 16; TEMP 36.8; O2SAT 100; BMI 24.3
[2020-11-13] MEDS: Omalizumab 150 MG/ML Syringe 300 MG SQ (14:44)
[2020-11-13 15:09] VITALS: BP 165/53; PULSE 55; RESP 16; TEMP 36.7
[2020-11-13 15:51] VITALS: BP 177/62; PULSE 52
== END ==
PROVIDERS: PCP Family Medicine; Referring Provider Specialist; Visit Provider Specialist
DX: L50.0 Allergic urticaria (principal)
CPT/HCPCS: 96372; J2357

== ENCOUNTER → 2020-12-13 13:57 | Outpatient (CLI) | payer MEDICARE, OTHER, SELFPAY ==
[2020-11-19 13:18] VITALS: BMI 24.3
[2020-12-13 14:04] VITALS: BP 146/61; PULSE 58; RESP 16; TEMP 36.3; O2SAT 99
[2020-12-13] MEDS: Omalizumab 150 MG/ML Syringe 300 MG SQ (14:06)
== END ==
PROVIDERS: PCP Family Medicine; Referring Provider Specialist; Visit Provider Specialist
DX: L50.0 Allergic urticaria (principal)
CPT/HCPCS: 96372; J2357

== ENCOUNTER → 2020-12-17 13:49 | Outpatient (CLI) | payer MEDICARE, OTHER, SELFPAY ==
[2020-11-19 13:18] VITALS: BMI 24.3
--- NOTE | 2020-12-17 13:50 | ECHOD_ITS ---
Reason For Study: Murmur Procedure This was a 2D Doppler, Color Flow transthoracic echocardiogram. Exam performed in department. Left Ventricle Normal LV size. Sigmoid septum. Left ventricular systolic function is normal. The estimated ejection fraction is 65 %. No regional wall motion abnormalities noted. Right Ventricle Normal RV size. Normal systolic function. Atria The left atrium is moderately enlarged. Normal right atrium. Mitral Valve Mild diffuse mitral valve thickening. Mild (1+) mitral valve insufficiency. Tricuspid Valve Normal tricuspid valve. Mild (1+) tricuspid valve insufficiency. Pulmonary artery systolic pressure is 35 mmHg. Aortic Valve Trisinus/trileaflet aortic valve. Moderate focal aortic valve thickening. Peak aortic valve gradient 36 mmHg. Mean aortic valve gradient 15 mmHg. Mild aortic stenosis. Mild (1+) aortic valve insufficiency. Pulmonic Valve Normal pulmonic valve. Great Vessels Normal aortic root. The pulmonary artery is normal size. Normal inferior vena cava. Pericardium/Pleural No pericardial effusion. MMode/2D Measurements & Calculations LVIDd: 4.1 cm IVSd: 1.7 cm LVOT diam: 2.0 cm LVIDs: 1.9 cm LVPWd: 1.0 cm LVOT area: 3.2 cm2 RVDd: 3.7 cm FS: 52.5 % Ao root diam: 3.3 cm LAV(MOD-bp): 68.5 ml Aortic Valve Planimetry: 0.99 cm2 LA dimension: 4.2 cm LAV(MOD-bp) Indexed: 40.5 ml/m2 LAV(MOD-sp2): 59.5 ml LAV(MOD-sp4): 74.6 ml LA A4 area: 23.5 cm2 RA A4 area: 15.7 cm2 Time Measurements MV dec time: 0.21 sec Doppler Measurements & Calculations MV E max rashard: 99.2 cm/sec Lat Peak E' Rashard: 8.5 cm/sec Med Peak E' Rashard: 6.6 cm/sec MV A max rashard: 81.4 cm/sec E/E' lat: 11.6 E/E' med: 14.9 MV E/A: 1.2 MV V2 max: 110.7 cm/sec MV P1/2t max rashard: 111.6 cm/sec Ao V2 max: 301.4 cm/sec MV max P.9 mmHg MV P1/2t: 65.7 msec Ao max P.3 mmHg MV V2 mean: 58.8 cm/sec MV dec slope: 497.9 cm/sec2 Ao V2 mean: 170.5 cm/sec MV mean P.6 mmHg Ao mean P.7 mmHg MV V2 VTI: 36.3 cm MVA(P1/2t): 3.4 cm2 Ao V2 VTI: 65.5 cm MVA(VTI): 2.4 cm2 BRIDGET(I,D): 1.3 cm2 BRIDGET(V,D): 1.2 cm2 AI max rashard: 420.6 cm/sec LV V1 max: 106.8 cm/sec MR max rashard: 662.0 cm/sec AI max P.8 mmHg LV V1 max P.6 mmHg MR max P.3 mmHg LV V1 mean P.0 mmHg AI dec slope: 206.3 cm/sec2 LV V1 mean: 63.9 cm/sec AI P1/2t: 597.0 msec LV V1 VTI: 26.6 cm SV(LVOT): 86.2 ml PA V2 max: 75.1 cm/sec TR max rashard: 281.7 cm/sec TR max P.7 mmHg ECHO/Echo Complete Interpretation Summary Normal LV size. Sigmoid septum. Left ventricular systolic function is normal. The estimated ejection fraction is 65 %. The left atrium is moderately enlarged. Mild (1+) mitral valve insufficiency. Mild (1+) aortic valve insufficiency. Mean aortic valve gradient 15 mmHg. Mild aortic stenosis. Ordering Physician: Lillie Duong Referring Physician: Frederic Soares Performed By: Darshan Pederson RCS
== END ==
PROVIDERS: PCP Family Medicine; Referring Provider Physician Assistant Medical; Visit Provider Physician Assistant Medical
DX: I27.21 Secondary pulmonary arterial hypertension (principal)
CPT/HCPCS: 93306

== ENCOUNTER → 2021-01-13 12:48 | Outpatient (CLI) | payer MEDICARE, OTHER, SELFPAY ==
[2020-11-19 13:18] VITALS: BMI 24.3
[2021-01-13 12:56] VITALS: BP 130/45; PULSE 63; RESP 16; TEMP 36.6; O2SAT 97; BMI 24.2
[2021-01-13] MEDS: Omalizumab 150 MG/ML Syringe 300 MG SQ (12:59)
== END ==
PROVIDERS: PCP Family Medicine; Referring Provider Specialist; Visit Provider Specialist
DX: L50.0 Allergic urticaria (principal)
CPT/HCPCS: 96372; J2357

== ENCOUNTER → 2021-02-07 13:38 | Outpatient (CLI) | payer MEDICARE, OTHER, SELFPAY ==
[2021-02-07 13:44] VITALS: BP 128/49; PULSE 70; RESP 16; TEMP 36.7; O2SAT 98
[2021-02-07] MEDS: Omalizumab 150 MG/ML Syringe 300 MG SQ (13:46)
[2021-02-07 14:02] VITALS: BP 126/44; PULSE 68; RESP 16
== END ==
PROVIDERS: PCP Family Medicine; Referring Provider Specialist; Visit Provider Specialist
DX: L50.0 Allergic urticaria (principal)
CPT/HCPCS: 96372; J2357

== ENCOUNTER → 2021-03-06 15:20 | Outpatient (CLI) | payer MEDICARE, OTHER, SELFPAY ==
[2021-03-06 15:28] VITALS: BP 170/64; PULSE 70; RESP 16; TEMP 36.4; O2SAT 100; BMI 24.2
[2021-03-06] MEDS: Omalizumab 150 MG/ML Syringe 300 MG SQ (15:32)
== END ==
PROVIDERS: PCP Family Medicine; Referring Provider Specialist; Visit Provider Specialist
DX: L50.0 Allergic urticaria (principal)
CPT/HCPCS: 96372; J2357

== ENCOUNTER → 2021-04-04 12:58 | Outpatient (CLI) | payer MEDICARE, OTHER, SELFPAY ==
[2021-04-04] MEDS: Omalizumab 150 MG/ML Syringe 300 MG SQ (13:15)
[2021-04-04 13:18] VITALS: BP 126/53; PULSE 64; RESP 16; TEMP 36.2; O2SAT 100
== END ==
PROVIDERS: PCP Family Medicine; Referring Provider Specialist; Visit Provider Specialist
DX: L50.0 Allergic urticaria (principal)
CPT/HCPCS: 96372; J2357

== ENCOUNTER 2021-05-05 14:02 | Outpatient (CLI) | payer MEDICARE, OTHER, SELFPAY ==
[2021-05-05 14:14] VITALS: BP 118/55; PULSE 68; RESP 16; TEMP 37.1; O2SAT 98
[2021-05-05] MEDS: Omalizumab 150 MG/ML Syringe 300 MG SQ (14:17)
== END 2021-05-05 23:59 | disposition short-term general hospital (02) ==
PROVIDERS: PCP Family Medicine; Referring Provider Specialist; Visit Provider Specialist
DX: L50.0 Allergic urticaria (principal)
CPT/HCPCS: 96372; J2357

== ENCOUNTER 2021-12-22 17:29 | Emergency (ER) | payer MEDICARE, OTHER, SELFPAY ==
[2021-12-22 17:30] VITALS: BP 149/76; PULSE 78; RESP 16; TEMP 36.4; O2SAT 99; BMI 24.2
--- NOTE | 2021-12-22 17:54 | CT_ITS ---
EXAM: CT ABDOMEN AND PELVIS WITH INTRAVENOUS CONTRAST CLINICAL INDICATION: lower abd pain TECHNIQUE: Helically acquired images were obtained of the abdomen and pelvis with intravenous contrast. This CT exam was performed using one or more of the following dose reduction techniques: automated exposure control, adjustment of the mA and/or kV according to patient size, and/or use of iterative reconstruction technique. This report was created using [employer] report generation technology. CONTRAST: IV 100mL [id number] COMPARISON: None. FINDINGS: LOWER THORAX: Unremarkable. Lung bases are clear. No cardiomegaly. No significant pericardial effusion. ABDOMEN: LIVER: Unremarkable. Homogeneous. No focal mass. GALLBLADDER AND BILE DUCTS: Gallbladder is surgically absent. No intra- or extrahepatic biliary ductal dilation. PANCREAS: Unremarkable. No focal cystic or solid mass. SPLEEN: Unremarkable. Normal size without focal cystic or solid mass. ADRENALS: Unremarkable. No nodules. KIDNEYS AND URETERS: Multiple renal cysts measuring up to 2.2 cm. Mild left renal atrophy. Kidneys are otherwise unremarkable. No hydronephrosis. STOMACH AND BOWEL: Unremarkable. No stomach or bowel distention. No focal inflammatory change. PELVIS: APPENDIX: No evidence of acute appendicitis. BLADDER: Unremarkable. REPRODUCTIVE: Unremarkable as visualized. No mass. ABDOMEN and PELVIS: INTRAPERITONEAL SPACE: Unremarkable. No ascites or other fluid collection. No free air. BONES/JOINTS: Unremarkable. No suspicious lytic or blastic abnormality. SOFT TISSUES: Unremarkable. No discrete abdominal or pelvic wall hernia. VASCULATURE: Unremarkable. Abdominal aorta is normal in caliber. LYMPH NODES: Unremarkable. No enlarged lymph nodes. CT/Abdomen/Pelvis W IV Cont ONLY IMPRESSION: 1. No acute findings. 2. Renal cysts. Follow-up is not indicated per ACR guidelines. Electronically Signed: Meme Justice MD at 19:18 EDT Reading Location ID and State: [id number] / Tel , Service support ,
--- NOTE | 2021-12-22 17:55 | EDS_ITS ---
HPI HPI - GI History of Present Illness Chief Complaint: Abd Pain Detail of Chief Complaint: Lower abdominal pain Informant: patient Abdominal Pain/Flank Pain Onset: Days Context: Gradual Onset Timing: Continuous Quality: Aching Location: LLQ Current Severity: Mild Maximum Severity: Mild Worsened by: Nothing Relieved by: Nothing Nausea/Vomiting/Emesis GI Symptom: Positive for Nausea; Negative for Vomiting Onset: Days Diarrhea/Melena/Hematochezia GI Symptom: Negative for Diarrhea, Melena or Hematochezia Associated Symptoms Associated Symptoms: Negative for Dysuria, Frequency, Hematuria or Urgency Narrative Narrative: 82-year-old female prior appendectomy, cholecystectomy and hysterectomy. Since Wednesday after she ate dinner she felt very full and has had progressively worsening lower abdominal pain. Associated nausea. No vomiting or diarrhea. No fever or chills. No dysuria. Just finished a course of antibiotics for urinary tract infection. She believes she was on Cipro. Antibiotics have been finished since this past weekend. She denies any weight change. No constipation or diarrhea. No melena. Prior similar symptoms: No Recent Illness/Hospitalization: No [facility] Medical History (Updated 12/22/21 @ 19:[address] Matthew Saini MD) Anemia Colonoscopy planned Essential (primary) hypertension GERD (gastroesophageal reflux disease) Glaucoma History of basal cell cancer History of melanoma History of rectocele History of shingles Hyperlipidemia Nonrheumatic aortic (valve) insufficiency Nonrheumatic mitral (valve) insufficiency Premature atrial contractions Seasonal allergies Secondary pulmonary arterial hypertension Home Medications biotin 10,000 mcg disintegrating tablet 10,000 mcg PO DAILY 05/28/17 [History Last Taken 06/03/20] diltiazem HCl 120 mg capsule,extended release 24 hr 120 mg PO DAILY heart 05/28/17 [History Last Taken 06/03/20] famotidine 40 mg tablet 40 mg PO BID 05/28/17 [History Last Taken 06/03/20] atorvastatin 10 mg tablet 10 mg PO QHS cholesterol 10/05/19 [History Last Taken 06/02/20] cholecalciferol (vitamin D3) 25 mcg (1,000 unit) capsule 1,000 unit PO DAILY supplement 06/03/20 [History Last Taken 06/03/20] cyanocobalamin (vitamin B-12) 1,000 mcg tablet 1,000 mcg PO DAILY supplement 06/03/20 [History Last Taken 06/03/20] vitamins A,C,U-yyjl-jwhlpz 14,320 unit-226 mg-200 unit capsule 1 ea PO BID eye health 06/03/20 [History Last Taken 06/03/20] hydroxyzine HCl 25 mg tablet 25 mg PO QHS PRN INSOMNIA 10/22/21 [History Last Taken Unknown] losartan 50 mg tablet 75 mg PO DAILY 90 days #135 tabs 10/22/21 [Rx Last Taken Unknown] brimonidine 0.2 % eye drops 2 drp EACH EYE DAILY 12/22/21 [History Last Taken Unknown] docusate sodium 100 mg capsule 100 mg PO BID 12/22/21 [History Last Taken Unknown] dorzolamide 22.3 mg-timolol 6.8 mg/mL eye drops 1 drp EACH EYE BID 12/22/21 [History Last Taken Unknown] gabapentin 300 mg capsule 300 mg PO TID 12/22/21 [History Last Taken Unknown] latanoprost 0.005 % eye drops 1 drp EACH EYE DAILY 12/22/21 [History Last Taken Unknown] Allergy/AdvReac Type Severity Reaction Status Date / Time oxycodone [From Percocet] AdvReac Upset Verified 12/22/21 18:09 Stomach Family History Mother Anemia Hypertension Brother Hypertension Grandfather Cancer Surgical History History of appendectomy History of bilateral cataract extraction History of hemorrhoidectomy History of hysterectomy History of laparoscopy History of repair of right rotator cuff Social History Smoking Status: Former smoker Tobacco: How many years used: 25 how long ago did patient quit smokin alcohol intake: never substance use type: does not use what type of physical activity do you participate in: none ROS ROS ED ROS Narrative Lower abdominal pain. Nausea. Review of Systems ROS Unobtainable: Denies due to encephalopathy Constitutional Constitutional ED: Denies chills or fever(s) ENT ENT ED: Denies ear pain Cardiovascular Cardiovascular: Denies chest pain Respiratory/Chest Respiratory/Chest: Denies cough or dyspnea Gastrointestinal Gastrointestinal: Reports abdominal pain and nausea; Denies constipation, diarrhea, melena or vomiting Genitourinary Genitourinary ED: Denies dysuria or hematuria Musculoskeletal Musculoskeletal: Denies arthralgias Integumentary Denies abscess Neurologic Neurologic: Denies headache(s) Psychiatric Psychiatric: Denies anxiety Endocrine Endocrinology: Denies polydipsia Hematologic/Lymphatic Hematologic/Lymphatic: Denies easy bleeding Allergic/Immunologic Allergic/Immunologic ED: Denies mouth swelling EXAM Physical Exam Narrative Exam Narrative: 7-year-old female no acute distress. Vital signs stable afebrile. H EENT exam unremarkable. Moist Riis membranes. Neck nontender no lymphadenopathy. Lungs clear to auscultation. Heart regular rhythm rate about 80. 3/4 systolic ejection murmur. Abdomen soft nondistended normal bowel sounds no peritoneal signs. Tender in the left lower quadrant. No hernia or mass. No obstruction. No pulsatile mass. Right upper and right lower quadrant unremarkable. Otherwise exam unremarkable. Back nontender. Const Vital Signs: 12/22/21 17:30 Temperature 97.6 F L Temperature Source Temporal Pulse Rate 78 Respiratory Rate 16 Blood Pressure 149/76 H Blood Pressure Mean 100 Pulse Ox 99 Oxygen Delivery Method Room Air Positive well nourished and well developed; Negative for obese, cachectic, contractures or unkempt General Appearance ED: well developed and NAD; Negative for unkempt, cachectic, contractures or pallor Nutritional Appearance: Negative for cachectic or obese HEENT Reports moist mucous membranes normocephalic and atraumatic; Negative for trauma or tenderness Eyes PERRL and EOMs intact bilaterally General Eye ED: Negative for pale conjunctiva Neck no lymphadenopathy, supple and no JVD General: Negative for tenderness Carotids: Negative for other Lymph Lymphatic: Negative for other Resp normal respiratory effort Effort and Inspection: respiratory distress; Negative for retractions or pain with movement Auscultation: Negative for rales, rhonchi or wheezes Cardio regular rate, regular rhythm, S1 normal heart sound, S2 normal heart sound and no murmurs GI non-distended and no masses; Negative for non-tender Inspection: Negative for abdominal distention Auscultation: normoactive bowel sounds Palpation: soft and tender; Negative for guarding, rigid, hepatomegaly, splenomegaly, hernia, mass, pulsatile mass or rebound tenderness present Back/Spine no CVA tenderness Extremity full ROM General Extremety ED: Negative for edema or tenderness General Extremity: Negative for edema Neuro CN's II-XII intact bilaterally and moves all extremities Sensorium / Orientation: alert, oriented to person, oriented to place and oriented to time; Negative for orientation impaired, confused, lethargic or stuporous Motor Exam: strength 5/5 throughout Psych mental status grossly normal and thought process normal Appearance: Negative for unkempt Attitude: No agitated Mood & Affect: Negative for depressed Skin General Skin Exam: Negative for jaundice or pallor Lesions: no lesions Rashes: no rashes Trauma: Negative for abrasion Nails: Negative for discolored MDM MDM MDM Narrative Medical decision making narrative: 81-year-old abdominal pain for the past 3 days. CAT scan labs pending. She did not want a thing currently for pain or nausea. Multiple repeat exams patient is doing well. Abdomen is benign at 7:45 PM. She and I went over all of her test results. She will be discharged home with outpatient follow-up. Lab Data Attestation: I reviewed the patient's lab results. Lab results narrative: CBC shows a normal white count of 7. H&H 12.7 and 38. Platelets 301. Electrolytes show a gap of 7 BUN and creatinine of 14 and 1.2. Unremarkable liver enzymes. Lipase is normal at 374. CT abdomen pelvis with IV contrast showed no acute findings per the radiologist. There were incidental finding of renal cyst. Urinalysis is negative. No white or red cells. No nitrites. Only rare bacteria. Labs: Laboratory Results - last 24 hr 12/22/21 12/22/21 12/22/21 18:01 18:01 19:06 WBC 7.8 RBC 4.17 L Hgb 12.7 Hct 38.7 MCV 92.8 MCH 30.5 MCHC 32.8 RDW Std Deviation 46.9 H RDW Coeff of Arben 13.7 Plt Count 301 MPV 9.0 Immature Gran % (Auto) 0.300 Neut % (Auto) 44.7 L Lymph % (Auto) 34.1 [place] % (Auto) 8.2 Eos % (Auto) 11.2 H Baso % (Auto) 1.5 H Absolute Neuts (auto) 3.5 Absolute Lymphs (auto) 2.66 Nucleated RBC % 0 Sodium 139 Potassium 3.6 Chloride 108 H Carbon Dioxide 24.0 Anion Gap 7 BUN 14 Creatinine 1.20 H Estim Creat Clear Calc 31.21 Est GFR (MDRD) Af Amer 55 L Est GFR (MDRD) Non-Af 46 L BUN/Creatinine Ratio 11.7 Glucose 101 Calcium 9.3 Total Bilirubin 0.40 AST 16 ALT 19 Alkaline Phosphatase 110 Total Protein 7.1 Albumin 3.5 Globulin 3.6 Albumin/Globulin Ratio 1.0 Lipase 374 Urine Color Yellow Urine Clarity Sl. Cloudy Urine pH 6.0 Ur Specific [place] 1.010 Urine Protein Negative Urine Glucose (UA) Normal Urine Ketones Negative Urine Occult Blood Negative Urine Nitrite Negative Urine Bilirubin Negative Urine Urobilinogen Normal Ur Leukocyte Esterase 25 H Urine RBC 0 SEEN Urine WBC 0-5 SEEN Ur Squamous Epith Cells 0-5 SEEN Urine Bacteria RARE Urine Mucus 0 SEEN Radiography Diagnostic Testing: Clinical Impression(s) from Imaging Studies Abdomen/Pelvis CT 12/22/21 17:54 IMPRESSION: 1. No acute findings. 2. Renal cysts. Follow-up is not indicated per ACR guidelines. Electronically Signed: Meme Justice MD at 19:18 EDT Reading Location ID and State: [id number] / Tel , Service support , Discharge Plan Triage Chief Complaint: Abd Pain ED Provider: Matthew Saini Dx/Rx/DC Orders Clinical Impression: Abdominal pain Instructions: Abdominal Pain Prescriptions: No Action hydroxyzine HCl 25 mg tablet 25 mg PO QHS PRN (Reason: INSOMNIA) losartan 50 mg tablet 75 mg PO DAILY 90 Days Qty: 135 3RF famotidine 40 MG tablet 40 mg PO BID diltiazem HCl 120 MG capsule 120 mg PO DAILY biotin 10,000 MCG tablet,disintegrating 10,000 mcg PO DAILY atorvastatin 10 mg tablet 10 mg PO QHS cyanocobalamin (vitamin B-12) 1,000 MCG tablet 1,000 mcg PO DAILY cholecalciferol (vitamin D3) 25 MCG capsule 1,000 unit PO DAILY vitamins A,C,P-qcii-dgewzx 1 EACH capsule 1 ea PO BID latanoprost 0.005 % Drops 1 drp EACH EYE DAILY brimonidine 0.2 % drops 2 drp EACH EYE DAILY Label Comments: INSTILL 1 DROP INTO BOTH EYES TWICE A DAY docusate sodium 100 mg Capsule 100 mg PO BID gabapentin 300 mg Capsule 300 mg PO TID dorzolamide-timolol 22.3-6.8 mg/mL Drops 1 drp EACH EYE BID Primary Care Provider: Bjorn Soares Referrals: Bjorn Soares MD [Primary Care Provider] - 3-5 Days if not improving Activity Restrictions/Additional Instructions: Your labs, urinalysis and CAT scan were all unremarkable. No signs of any reason for your discomfort. Return if you are feeling a lot worse. Otherwise follow-up with your doctor if you are not improving. Disposition Disposition: Home, Self Care
[2021-12-22] MEDS: 0.9% Normal Saline 1,000 ML 1000 ML IV (18:13)
[2021-12-22 18:19] LABS: Absolute Lymphocyte Count 2.66 X10^3/uL (0.83-4.51); Absolute Neutrophil Count 3.5 X10^3/uL (2.0-7.7); Basophil# 0.12 X10^3/uL; Basophil% 1.5 % (0-1); Eosinophil# 0.87 X10^3/uL; Eosinophils% 11.2 % (0-5); Hematocrit 38.7 % (37-47); Hemoglobin 12.7 g/dL (12.0-15.0); Lymphocyte # 2.66 X10^3/ul (0.83-4.51); Lymphocyte % 34.1 % (19-41); Mean Corp Hgb Conc 32.8 g/dL (32-36); Mean Corpuscular Hgb 30.5 pg (27.0-32.0); Mean Corpuscular Volume 92.8 fL (81-99); Monocyte# 0.64 X10^3/uL; Monocyte% 8.2 % (0-10); NRBC Flagged by Analyzer 0 % (0-5); Neutrophil # 3.49 X10^3/uL (2.7-7.7); Neutrophil % 44.7 % (47-70); Platelet Count 301 K/mm3 (150-450); RBC Distribution Width CV 13.7 % (11.6-14.6); RBC Distribution Width SD 46.9 fl (35.1-43.9); Red Blood Count 4.17 M/mm3 (4.2-5.4); White Blood Count 7.8 K/mm3 (4.4-11.0)
[2021-12-22 18:34] LABS: AST(SGOT) 16 U/L (15-37); Alanine Aminotransfer ALT/SGPT 19 U/L (13-56); Albumin, Serum 3.5 g/dL (3.2-5.0); Alkaline Phosphatase 110 U/L (45-117); Anion Gap 7 (5-15); BUN 14 mg/dL (7-18); BUN/Creat Ratio 11.7 RATIO (10-20); Calcium,Total 9.3 mg/dL (8.5-10.1); Chloride 108 mmol/L (98-107); EST Glomerular Filtration Rate 46 mL/min (>60); Est Glom Filt Rate - Afr Amer 55 mL/min (>60); Estimated Creatinine Clearance 31.21 ml/min; Globulin 3.6 g/dL (2.2-4.2); Glucose 101 mg/dL (74-106); Lipase 374 U/L (73-393); Potassium 3.6 mmol/L (3.5-5.1); Protein, Total 7.1 g/dL (6.4-8.2); Sodium Level 139 mmol/L (136-145)
[2021-12-22 19:14] LABS: Mucous, Urine 0 SEEN /hpf (<or=2+); Red Blood Cells-Urine 0 SEEN /hpf (0-5)
[2021-12-22 19:15] LABS: Color, Urine Yellow (Yellow); Glucose, Dipstick Normal (Normal); Ketone-Dipstick Negative (Negative); Leukocyte Esterase-Dipstick 25 /ul (Negative); Nitrite-Dipstick Negative (Negative); Occult Blood-Urine Negative /ul (Negative); Protein-Dipstick Negative (Negative); Urine Bilirubin Dipstick Negative (Negative); Urine Clarity Sl. Cloudy (Clear); Urine Urobilinogen Normal (Normal)
[2021-12-22 19:22] LABS: Bacteria RARE /hpf (None Seen); Squamous Epithelial Cells - UA 0-5 SEEN /hpf (5-10); White Blood Cells 0-5 SEEN /hpf (0-5)
== END 2021-12-22 19:58 | disposition home or self-care (01) ==
PROVIDERS: Emergency Provider Emergency Medicine; PCP Family Medicine; Visit Provider Emergency Medicine
DX: R10.30 Lower abdominal pain, unspecified (principal); I27.21 Secondary pulmonary arterial hypertension; Z87.440 Personal history of urinary (tract) infections; Z90.49 Acquired absence of other specified parts of digestive tract; Z85.828 Personal history of other malignant neoplasm of skin; K21.9 Gastro-esophageal reflux disease without esophagitis; I10 Essential (primary) hypertension; I34.0 Nonrheumatic mitral (valve) insufficiency; I35.1 Nonrheumatic aortic (valve) insufficiency; Z85.820 Personal history of malignant melanoma of skin; E78.5 Hyperlipidemia, unspecified; H40.9 Unspecified glaucoma; Z87.891 Personal history of nicotine dependence; N28.1 Cyst of kidney, acquired; R11.0 Nausea
CPT/HCPCS: 74177; 80053; 81001; 83690; 85025; 96360; 99282; J7030; Q9967; A4216

== ENCOUNTER → 2022-11-02 | Outpatient (CLI) | payer MEDICARE, OTHER, SELFPAY ==
--- NOTE | 2022-11-02 12:42 | MRI_ITS ---
STUDY: MRI LUMBAR SPINE WITHOUT CONTRAST REASON FOR EXAM: Female, 82 years old. LEFT hip pain, abn xrays, CT TECHNIQUE: Standardized fat and water weighted pulse sequences were obtained in the sagittal and axial planes. COMPARISON: None FINDINGS: T12-L1: Normal endplates. Normal disc height, desiccation and normal morphology. Normal bilateral facet joints. Normal central canal and bilateral lateral recesses. Normal bilateral intervertebral neural foramina. Normal lumbar lordosis. There is severe levo scoliosis. Normal conus medullaris that terminates at L1 L1-2: Degenerative endplate changes. Narrowed disc space with desiccation of disc and minimal bulging disc osteophyte complex with small right foraminal disc protrusion. Facet arthropathy and mild thickening of ligamenta flava more pronounced on the right. Normal central canal and bilateral lateral recesses. Moderate left neural foraminal stenosis and more severe narrowing on the right L2-3: Degenerative endplate changes. Narrowed disc space with desiccation of disc and minimal bulging disc osteophyte complex. Mild facet arthropathy and thickening of ligamenta flava.. Normal central canal bilateral lateral recesses. Moderate bilateral neural foraminal encroachment. L3-4: Grade 1 spondylolisthesis. Narrowed disc space with desiccation of disc and minor bulging disc osteophyte complex with small right foraminal disc/osteophyte protrusion. Mild facet arthropathy and thickening of ligamenta flava. Normal central canal and mild to moderate bilateral lateral recess stenosis. Moderate right neural foraminal stenosis and mild narrowing on the left. L4-5: Degenerative endplate changes. Narrowed disc space with desiccation of disc and mild annular bulge. Bilateral facet arthropathy. Normal central canal and bilateral lateral recesses. Moderate bilateral neural foraminal encroachment L5-S1: Normal endplates. Normal disc height, desiccation mild annular bulge. Facet arthropathy and thickening of ligamenta flava more pronounced on the left.. Normal central canal and bilateral lateral recesses. Mild bilateral neural foraminal encroachment Normal visualized sacral ala. Normal visualized paraspinous soft tissue structures. MRI/Spine Lumbar (Routine) IMPRESSION: No evidence for acute fracture or other significant bony pathology.. Severe scoliosis and degenerative change. Multilevel spinal stenosis secondary to disc disease and bony hypertrophy Electronically Signed: Elkin Lee MD at 21:44 EDT Reading Location ID and State: [facility] / [place] , Service support ,
== END | disposition home or self-care (01) ==
LOC: MRI 12:41
PROVIDERS: PCP Family Medicine; Referring Provider Internal Medicine Gastroenterology; Visit Provider Internal Medicine Gastroenterology
DX: M48.56XA Collapsed vertebra, not elsewhere classified, lumbar region, initial encounter for fracture (principal)
CPT/HCPCS: 72148

== ENCOUNTER → 2022-11-04 | Outpatient (CLI) | payer MEDICARE, OTHER, SELFPAY ==
--- NOTE | 2022-11-04 14:30 | CT_ITS ---
ACR Level 3 findings have been noted. An addendum which confirms receipt of the report will follow. EXAM: CT Abdomen And Pelvis W/ Contrast Injection HISTORY: abd pain LLQ PAIN X 3 MONTHS.HTN TECHNIQUE: Routine protocol CT abdomen pelvis. IV Contrast: Oral and amp; IV Readi-CAT and amp; 100mL Isovue-300 . Oral Contrast: with. Sagittal and coronal images were reconstructed. RADIATION DOSAGE (If Supplied By Facility): CTDIvol = ( 16.25 ) mGy, DLP = ( 1083.89 ) mGycm Individualized dose optimization techniques were used for this CT. COMPARISON: CT abdomen and pelvis 12/22/2021. LIMITATIONS: None. FINDINGS: LOWER CHEST: Dependent atelectasis in the lung bases. LIVER: Unremarkable. GALLBLADDER/BILE DUCTS: Gallbladder surgically absent. PANCREAS: Unremarkable. SPLEEN: Unremarkable. ADRENAL GLANDS: Mild nodular thickening left adrenal. KIDNEYS / URETERS: A few small cysts in the kidneys. No hydronephrosis. BOWEL / MESENTERY: Short segment of marked circumferential wall thickening and luminal narrowing at the proximal to mid mid transverse colon just, length of approximately 4.5 cm, with irregular margins. Mild adjacent stranding. No significant proximal dilatation. Moderate amount of stool in the colon. No bowel obstruction. APPENDIX: Not identified. PERITONEUM: No free air. No free fluid. VESSELS: Abdominal aorta is normal caliber. RETROPERITONEUM: Unremarkable. REPRODUCTIVE ORGANS: Uterus not identified. BLADDER: Unremarkable. ABDOMINAL WALL: Unremarkable. BONES: Degenerative changes lumbar spine with minimal anterolisthesis at L3-4. OTHER: None. CT/Abdomen/Pelvis WITH Contrast IMPRESSION: 1. Short segment of marked circumferential mural thickening of the mid transverse colon differential includes malignancy/ apple core lesion, and inflammatory focal colitis less likely. Endoscopic correlation recommended. 2. No bowel obstruction. Electronically Signed: Farzaneh Khan MD at 0:05 EDT ,
[2022-11-04 14:49] LABS: CREATININE FINGERSTICK 0.9 mg/dL (0.55-1.02)
== END | disposition home or self-care (01) ==
LOC: CT 14:14
PROVIDERS: PCP Family Medicine; Referring Provider Internal Medicine Gastroenterology; Visit Provider Internal Medicine Gastroenterology
DX: R10.32 Left lower quadrant pain (principal)
CPT/HCPCS: 74177; Q9967

== ENCOUNTER 2022-11-12 10:08 | Day surgery (SDC) | payer MEDICARE, OTHER, SELFPAY ==
[2022-11-12] VITALS (7 sets, daily range): BP systolic 99–150; BP diastolic 43–90; PULSE 64–68; RESP 16; TEMP 36.3–36.8; O2SAT 95–99; BMI 25.0
[2022-11-12] MEDS: Lactated Ringers 1,000 ML 15 ML IV (11:14)
--- NOTE | 2022-11-12 11:30 | COLBX_PTH ---
PATIENT: JIL DÍAZ LOC: EN U#:[id number] AGE/SX: 82/F ROOM: RE11/12/[address]: Dr. Stan Ng DO : 1940 BED: DIS: 11/12/2022 SPEC #: [id number] RECD: 11/12/22 15:36 STATUS: PHIL BRYCE #: [id number] SOPHIE: 11/12/22 11:[address]: Stan Ng DEPT: SURGICAL PATHOLOGY RECD BY: Rosalind Clemons ENTERED: 11/13/22 08:40 SP TYPE: COLON BX OTHR DR: Dr. Bjorn Soares MD Tissues: A - Ascending colon B - COLON BIOPSY Procedures: Surgery Specimen Level IV HEADER OPERATION: Colonoscopy PRE-OP DIAGNOSIS: [facility] abdominal pain TISSUE SUBMITTED: A. Ascending colon biopsy, B. Splenic flexure biopsy MICROSCOPIC DIAGNOSIS A. Ascending colon, biopsy: No pathologic change. B. Colon at splenic flexure, biopsy: Ulceration with associated acute and chronic inflammation and granulation. Focal adenomatous changes. AM:rosalind 11/16/2022 MICROSCOPIC DESCRIPTION Slides are reviewed. GROSS DESCRIPTION A - Received in fixative is one container labeled with the patient's name and designated ascending colon biopsy. The specimen consists of two fragments of crawley tissue measuring in aggregate 0.8 x 0.5 x 0.1 cm. The specimen is totally submitted in one cassette. B - Received in fixative is one container labeled with the patient's name and designated splenic flexure biopsy. The specimen consists of two fragments of crawley tissue measuring in aggregate 0.8 x 0.6 x 0.1 cm. The specimen is totally submitted in one cassette. / AM 11/13/2022 TC:2 CPT: 71610 x2
--- NOTE | 2022-11-12 11:52 | PCM.HP.BLA ---
History and Physical Date of Admission: 11/12/22 JIL DÍAZ, is a 82 F who presents to the office today for PCP OV 5.. as 6m f/u with LLQ abdominal pain 2-3 days/week and mildly elevated inflammatory markers; normal CT. GERD well managed with Pepcid. Additional history glaucoma, heart murmur, mitral regurgitation, hyperlipidemia, HTN, insomnia, CKD III. ? Biochemical CBC, CMP, LFT, lipase without pertinent abnormality. ? ESR H26, CRP H1, Triglycerides H192, LDL H38 ? CT abd/pel 08.20.22 s/p cholecystectomy; renal lesions/cysts. *BGI 10.20.22 with LLQ abdominal pain for the last several months presenting intermittently, initially a minor pain and worsened in severity. BM occur each day without difficulty; eat six prunes each morning for many years. ROS Const Constitutional: No other (6 system ROS completed with pertinent findings in the HPI otherwise normal.) Exam Const General: cooperative and comfortable Nutritional Appearance: average body habitus and well nourished HENMI Head: normal to inspection Ears: hearing grossly normal bilaterally Nose: external nose normal Face and sinus: normal facial exam Mouth: oral mucosae normal Throat: posterior oropharynx normal Eyes General: appearance normal, both eyes and all related structures Neck Neck: normal visual inspection Chest Chest palpation & inspection: normal inspection of the chest and normal palpation of entire chest wall Resp Effort & Inspection: normal respiratory effort Auscultation: Bilateral: Clear to Auscultation Cardio Palpation: normal PMI Rate: regular rate Rhythm: regular rhythm GI Inspection: normal to inspection Auscultation: normal bowel sounds Percussion: normal to percussion Palpation: no hepatosplenomegaly Skin General: no rashes or lesions noted Neuro General: patient alert Extrem General: normal to inspection Psych Affect: normal affect Quality Reporting Tobacco Screening ([facility] 138) Smoking Status: Former smoker Assessment and Plan Assessment and Plan (1) LLQ abdominal pain: Status: Chronic Plan: The differential diagnosis for left lower quadrant pain does include chronic idiopathic constipation. She does eat 6 prunes a day and it does allow her to have a bowel movement. However after reviewing her CAT scan that she had on 12/20/2021 she did this have a lot of stool burden along with some mild diverticular disease even though it was not reported in the CAT scan. Also needs of his diagnosis would be low-grade ischemia due to the calcium burden that was seen on her CT scan on 12/20/2021. We went over her CT scan in detail and she does have some collapse of vertebrae in the lumbar spine that could also be causing her symptoms. Office examination I did not feel like it was coming from her left hip. Also did not appreciate any hernia. There was a little bit of discomfort in the left lower quadrant after palpating her spinous processes. Hopefully will be able to elicit more when we get a CT scan and MRI. For now all I will put her on Fiber Choice 2 tabs at night and she will continue the prunes during the day. I have examined the patient and the H&P has been reviewed. There are no clinical changes since date of exam.
--- NOTE | 2022-11-12 12:30 | OP.CCLET_ITS ---
11/12/2022 Bjorn Soares Re : Colonoscopy procedure for Patricia Soares This procedure was performed on October. My impressions and recommendations are as follows: Impressions : - Diverticulosis in the recto-sigmoid colon and in the sigmoid colon. - A few ulcers at the splenic flexure. Biopsied. - Congested mucosa in the ascending colon. Biopsied. - The examined portion of the ileum was normal. Recommendations : - Discharge patient to home. - Resume previous diet. - Continue present medications. - Await pathology results. - No repeat colonoscopy due to current age (66 years or older). My findings are described in the full procedure note, which is enclosed. If I can be of further assistance, please feel free to contact me at . Sincerely, Stan Ng, 11/12/2022 12:30:03 PM This report has been signed electronically.
--- NOTE | 2022-11-12 12:30 | OP.COLON_ITS ---
Patient Name: Patricia Hurley Procedure Date: 11/12/2022 11:51 AM Date of : 1940 Age: 82 Procedure: Colonoscopy Indications: Abdominal pain in the left lower quadrant Providers: Stan Ng DO Medicines: Monitored Anesthesia Care Patient Profile: This is an 82 year old female. Refer to note in patient chart for documentation of history and physical. Last Colonoscopy: date unknown. Unable to locate last colonoscopy report. Complications: No immediate complications. Procedure: Pre-Anesthesia Assessment: - Prior to the procedure, a History and Physical was performed, and patient medications and allergies were reviewed. The patient is competent. The risks and benefits of the procedure and the sedation options and risks were discussed with the patient. All questions were answered and informed consent was obtained. Patient identification and proposed procedure were verified by the physician in the pre-procedure area. Mental Status Examination: alert and oriented. Airway Examination: normal oropharyngeal airway and neck mobility. Respiratory Examination: clear to auscultation. CV Examination: normal. Prophylactic Antibiotics: The patient does not require prophylactic antibiotics. Prior Anticoagulants: The patient has taken no previous anticoagulant or antiplatelet agents. ASA Grade Assessment: II - A patient with mild systemic disease. After reviewing the risks and benefits, the patient was deemed in satisfactory condition to undergo the procedure. The anesthesia plan was to use monitored anesthesia care (MAC). Immediately prior to administration of medications, the patient was re-assessed for adequacy to receive sedatives. The heart rate, respiratory rate, oxygen saturations, blood pressure, adequacy of pulmonary ventilation, and response to care were monitored throughout the procedure. The physical status of the patient was re-assessed after the procedure. After I obtained informed consent, the scope was passed under direct vision. Throughout the procedure, the patient's blood pressure, pulse, and oxygen saturations were monitored continuously. The colonoscope was introduced through the anus and advanced to the terminal ileum. The colonoscopy was performed without difficulty. The patient tolerated the procedure well. The quality of the bowel preparation was good. Scope In: 12:06:50 PM Scope Withdrawal Time 0 hours 10 minutes 29 seconds Scope Out: 12:24:38 PM Total Procedure Duration Time 0 hours 17 minutes 48 seconds Findings: The perianal and digital rectal examinations were normal. A few small-mouthed diverticula were found in the recto-sigmoid colon and sigmoid colon. A few six mm ulcers were found at the splenic flexure. No bleeding was present. No stigmata of recent bleeding were seen. Biopsies were taken with a cold forceps for histology. Verification of patient identification for the specimen was done. Estimated blood loss was minimal. An area of mildly congested mucosa was found in the ascending colon. Biopsies were taken with a cold forceps for histology. Verification of patient identification for the specimen was done. Estimated blood loss was minimal. The terminal ileum appeared normal. Impression: - Diverticulosis in the recto-sigmoid colon and in the sigmoid colon. - A few ulcers at the splenic flexure. Biopsied. - Congested mucosa in the ascending colon. Biopsied. - The examined portion of the ileum was normal. Recommendation: - Discharge patient to home. - Resume previous diet. - Continue present medications. - Await pathology results. - No repeat colonoscopy due to current age (66 years or older). Procedure Code(s): --- Professional --- 12829, Colonoscopy, flexible; with biopsy, single or multiple CPT copyright 2017 [employer]. All rights reserved. The codes documented in this report are preliminary and upon coder operator review may be revised to meet current compliance requirements. Stan Ng DO 11/12/2022 12:30:03 PM This report has been signed electronically. Number of Addenda: 0 Note Initiated On: 11/12/2022 11:51 AM
== END 2022-11-12 13:22 | disposition home or self-care (01) ==
LOC: EN 10:10 → AC 10:33
PROVIDERS: PCP Family Medicine; Referring Provider Family Medicine; Visit Provider Internal Medicine Gastroenterology
PROC: 0DJD8ZZ Inspection of Lower Intestinal Tract, Via Natural or Artificial Opening Endoscopic (ICD-10-PCS; CPT 45378; principal; 2022-11-12 11:25)
DX: K57.30 Diverticulosis of large intestine without perforation or abscess without bleeding (principal); K63.89 Other specified diseases of intestine; Z87.891 Personal history of nicotine dependence; R10.32 Left lower quadrant pain
CPT/HCPCS: 45380; 88305; J7120; J2405

== ENCOUNTER → 2022-11-18 | Outpatient (CLI) | payer MEDICARE, OTHER, SELFPAY ==
[2022-11-18 13:09] LABS: Erythrocyte Sedimentation Rate 10 mm/hr (0-30)
[2022-11-18 13:11] LABS: Absolute Lymphocyte Count 1.54 X10^3/uL (0.83-4.51); Absolute Neutrophil Count 3.3 X10^3/uL (2.0-7.7); Basophil# 0.07 X10^3/uL; Basophil% 1.2 % (0-1); Eosinophil# 0.47 X10^3/uL; Eosinophils% 7.9 % (0-5); Hemoglobin 12.9 g/dL (12.0-15.0); Lymphocyte # 1.54 X10^3/ul (0.83-4.51); Lymphocyte % 25.9 % (19-41); Mean Corp Hgb Conc 30.7 g/dL (32-36); Mean Corpuscular Hgb 30.4 pg (27.0-32.0); Mean Corpuscular Volume 99.1 fL (81-99); Mean Platelet Vol. 9.4 fl (6.2-12.0); Monocyte# 0.56 X10^3/uL; Monocyte% 9.4 % (0-10); NRBC Flagged by Analyzer 0 % (0-5); Neutrophil % 55.4 % (47-70); Platelet Count 255 K/mm3 (150-450); RBC Distribution Width CV 13.5 % (11.6-14.6); RBC Distribution Width SD 49.1 fl (35.1-43.9); Red Blood Count 4.24 M/mm3 (4.2-5.4)
[2022-11-18 13:35] LABS: ALB/GLOB Ratio 0.9 RATIO (0.9-2.4); AST(SGOT) 15 U/L (15-37); Alanine Aminotransfer ALT/SGPT 19 U/L (13-56); Albumin, Serum 3.2 g/dL (3.2-5.0); Alkaline Phosphatase 83 U/L (45-117); Anion Gap 5 (5-15); BUN 10 mg/dL (7-18); BUN/Creat Ratio 9.8 RATIO (10-20); CRP < 2.90 mg/L (0.0-3.0); Calcium,Total 8.8 mg/dL (8.5-10.1); Chloride 109 mmol/L (98-107); Creatinine, Serum 1.02 mg/dL (0.55-1.02); EST Glomerular Filtration Rate 55 mL/min (>60); Est Glom Filt Rate - Afr Amer 67 mL/min (>60); Globulin 3.6 g/dL (2.2-4.2); Glucose 88 mg/dL (74-106); LDH 179 U/L (84-246); Protein, Total 6.8 g/dL (6.4-8.2); Sodium Level 141 mmol/L (136-145)
[2022-11-19 14:10] LABS: Anti-Centromere B Ab <0.2 AI (0.0-0.9); Anti-Chromatin <0.2 AI (0.0-0.9); Anti-Jo <0.2 AI (0.0-0.9); Anti-Scleroderma-70 AB <0.2 AI (0.0-0.9); Anti-dsDNA Ab <1 IU/mL (0-9); RNP Ab 0.5 AI (0.0-0.9); SJOGREN'S Anti-SS-A test < 0.2 AI (0.0-0.9); SJOGREN'S Anti-SS-B test < 0.2 AI (0.0-0.9); Smith Ab <0.2 AI (0.0-0.9)
[2022-11-21 07:08] LABS: Albumin 3.4 g/dL (2.9-4.4); Alpha-1-Globulins 0.2 g/dL (0.0-0.4); Alpha-2-Globulins 0.8 g/dL (0.4-1.0); Cytoplasmic Ab (C-ANCA) <1:20 titer (Neg:<1:20); Endomysial Antibody IgA Negative (Negative); Gamma Globulin 0.6 g/dL (0.4-1.8); Immunoglobulin A 134 mg/dL (64-422); Immunoglobulin E 15 IU/mL (6-495); Immunoglobulin G 838 mg/dL (586-1602); Immunoglobulin M 19 mg/dL (26-217); PROEL- TOTAL PROTEIN 5.9 g/dL (6.0-8.5); Perinuclear Ab (P-ANCA) <1:20 titer (Neg:<1:20); t-Transglutaminase IgA <2 U/mL (0-3)
== END | disposition home or self-care (01) ==
LOC: LAB 12:43
PROVIDERS: PCP Family Medicine; Referring Provider Internal Medicine Gastroenterology; Visit Provider Internal Medicine Gastroenterology
DX: R10.32 Left lower quadrant pain (principal)
CPT/HCPCS: 36415; 80053; 82784; 82785; 83516; 83615; 84165; 85025; 85652; 86140; 86225; 86235; 86255; 86256; 86334

== ENCOUNTER → 2022-12-01 | Outpatient (CLI) | payer MEDICARE, OTHER, SELFPAY ==
--- NOTE | 2022-12-01 13:12 | ECHOD_ITS ---
Reason For Study: MURMUR Procedure This was a 2D Doppler, Color Flow transthoracic echocardiogram. Exam performed in department. Left Ventricle Normal LV size. Sigmoid septum. Left ventricular systolic function is normal. The estimated ejection fraction is 65 %. Stage 1 diastolic dysfunction. No regional wall motion abnormalities noted. Right Ventricle Normal RV size. Normal systolic function. Atria The left atrium is mildly enlarged. Normal right atrium. Mitral Valve Mild focal mitral valve calcification of the anterior leaflet. Tricuspid Valve Normal tricuspid valve. Aortic Valve Trisinus/trileaflet aortic valve. Moderate focal aortic valve calcification. Peak aortic valve gradient 58 mmHg. Mean aortic valve gradient 34 mmHg. Moderate aortic stenosis. Trivial aortic valve insufficiency. Pulmonic Valve Normal pulmonic valve. Great Vessels Normal aortic root. Pericardium/Pleural No pericardial effusion. MMode/2D Measurements & Calculations LVIDd: 4.3 cm IVSd: 0.98 cm LVOT diam: 1.8 cm LVIDs: 2.2 cm LVPWd: 0.98 cm LVOT area: 2.5 cm2 FS: 49.0 % Ao root diam: 3.6 cm LAV(MOD-bp): 62.4 ml LVAd ap4: 19.4 cm2 LAV(MOD-bp) Indexed: 37.1 ml/m2 LVLd ap4: 6.6 cm LAV(MOD-sp2): 42.8 ml EDV(MOD-sp4): 46.5 ml LAV(MOD-sp4): 85.2 ml EDV(sp4-el): 48.3 ml LVAs ap4: 11.4 cm2 LVLs ap4: 5.8 cm ESV(MOD-sp4): 19.5 ml ESV(sp4-el): 19.1 ml EF(MOD-sp4): 58.1 % EF(sp4-el): 60.5 % SV(MOD-sp4): 27.0 ml SV(sp4-el): 29.2 ml LA A4 area: 24.6 cm2 LA dimension(2D): 4.2 cm RA A4 area: 11.9 cm2 TAPSE: 2.5 cm Time Measurements MV dec time: 0.40 sec Doppler Measurements & Calculations MV E max rashard: 79.2 cm/sec Lat Peak E' Rashard: 6.0 cm/sec Med Peak E' Rashard: 3.8 cm/sec MV A max rashard: 116.5 cm/sec E/E' lat: 13.1 E/E' med: 20.8 MV E/A: 0.68 MV V2 max: 126.4 cm/sec Ao V2 max: 381.3 cm/sec MV max P.4 mmHg MV dec slope: 199.3 cm/sec2 Ao max P.3 mmHg MV V2 mean: 72.4 cm/sec Ao V2 mean: 275.4 cm/sec MV mean P.4 mmHg Ao mean P.4 mmHg MV V2 VTI: 36.2 cm Ao V2 VTI: 82.2 cm AV (velocity ratio): 0.35 MVA(VTI): 2.0 cm2 BRIDGET(I,D): 0.89 cm2 BRIDGET(V,D): 0.91 cm2 AI max rashard: 441.7 cm/sec LV V1 max: 136.8 cm/sec SV(LVOT): 73.3 ml AI max P.0 mmHg LV V1 max P.5 mmHg LV V1 mean P.1 mmHg AI dec slope: 266.1 cm/sec2 LV V1 mean: 95.9 cm/sec AI P1/2t: 486.2 msec LV V1 VTI: 28.8 cm PA V2 max: 108.8 cm/sec PA V2 mean: 75.7 cm/sec ECHO/Echo Complete Interpretation Summary Normal LV size. Sigmoid septum. Left ventricular systolic function is normal. The estimated ejection fraction is 65 %. Moderate focal aortic valve calcification. Stage 1 diastolic dysfunction. Mean aortic valve gradient 34 mmHg. Moderate aortic stenosis. Ordering Physician: Levy Ibarra Referring Physician: Levy Ibarra Performed By: Yolande Gil RCS
== END | disposition home or self-care (01) ==
LOC: CVS 13:10
PROVIDERS: PCP Family Medicine; Referring Provider Internal Medicine Cardiovascular Disease; Visit Provider Internal Medicine Cardiovascular Disease
DX: I27.21 Secondary pulmonary arterial hypertension (principal)
CPT/HCPCS: 93306

== ENCOUNTER → 2022-12-14 | Outpatient (CLI) | payer MEDICARE, OTHER, SELFPAY ==
--- NOTE | 2022-12-14 14:04 | CT_ITS ---
STUDY: CTA ABDOMEN AND PELVIS WITH CONTRAST REASON FOR EXAM: Female, 82 years old. LLQ pain, mesenteric ischemia RADIATION DOSAGE (If Supplied By Facility): CTDIvol = ( 21.12 ) mGy, DLP = ( 659.97 ) mGycm TECHNIQUE: Transaxial images were obtained from the dome of the diaphragm to the symphysis pubis without oral contrast. IV 100mL Isovue-370 was administered. Sagittal and coronal images were reconstructed. 3-D images were reconstructed. Individualized dose optimization techniques were used for this CT. COMPARISON: Comparison is made with prior study dated November 04, 2022. FINDINGS: Minimal degree of bibasilar atelectasis and/or scarring. Coronary artery calcification. Normal liver. There are surgical clips in the gallbladder fossa consistent with a prior cholecystectomy. Normal spleen. Normal pancreas. Normal bilateral adrenal glands. Normal right kidney. Stable left renal cyst. Atrophy of the left kidney. Normal visualized stomach. There is a 1.6 cm rounded filling defect in the inferior portion of the duodenum. A polyp should be ruled out. There are multiple colonic diverticula consistent with diverticulosis. There is non-visualization of the appendix. There is diffuse atherosclerotic calcification of the abdominal aorta and its major visceral branches, without a demonstrated aneurysm. Normal inferior vena cava. Normal retroperitoneum. Normal urinary bladder. There is absence of the uterus consistent with a prior hysterectomy. Normal abdominal wall. There are diffuse degenerative changes of the visualized lumbar spine. Levoscoliosis. CT/CTA Abd/Pelvis W/WO Contrast IMPRESSION: The previously seen thickening of the proximal transverse colon is not seen at this time. The remainder of the examination is unchanged. Electronically Signed: Janes Robertson MD at 14:48 EDT ,
== END | disposition home or self-care (01) ==
LOC: CT 13:59
PROVIDERS: PCP Family Medicine; Referring Provider Internal Medicine Gastroenterology; Visit Provider Internal Medicine Gastroenterology
DX: R10.32 Left lower quadrant pain (principal)
CPT/HCPCS: 74174; Q9967

== ENCOUNTER 2023-02-17 06:53 | Day surgery (SDC) | payer MEDICARE, OTHER, SELFPAY ==
[2023-02-17] MEDS: Lactated Ringers 1,000 ML 15 ML IV (07:18)
[2023-02-17 07:19] VITALS: BP 136/54; PULSE 68; RESP 18; TEMP 36.1; O2SAT 100; BMI 25.2
--- NOTE | 2023-02-17 07:39 | PCM.HP.BLA ---
History and Physical Date of Admission: 02/17/23 82 F who presents to the office today for PCP OV 5..23 as 6m f/u with LLQ abdominal pain 2-3 days/week and mildly elevated inflammatory markers; normal CT. GERD well managed with Pepcid. Additional history glaucoma, heart murmur, mitral regurgitation, hyperlipidemia, HTN, insomnia, CKD III. ? Biochemical CBC, CMP, LFT, lipase without pertinent abnormality. ? ESR H26, CRP H1, Triglycerides H192, LDL H38 ? CT abd/pel 08.20.22 s/p cholecystectomy; renal lesions/cysts. *BGI 10.20.22 with LLQ abdominal pain for the last several months presenting intermittently, initially a minor pain and worsened in severity. BM occur each day without difficulty; eat six prunes each morning for many years. ROS Const Constitutional: No other (6 system ROS completed with pertinent findings in the HPI otherwise normal.) Exam Const General: cooperative and comfortable Nutritional Appearance: average body habitus and well nourished HENMT Head: normal to inspection Ears: hearing grossly normal bilaterally Nose: external nose normal Face and sinus: normal facial exam Mouth: oral mucosae normal Throat: posterior oropharynx normal Eyes General: appearance normal, both eyes and all related structures Neck Neck: normal visual inspection Chest Chest palpation & inspection: normal inspection of the chest and normal palpation of entire chest wall Resp Effort & Inspection: normal respiratory effort Auscultation: Bilateral: Clear to Auscultation Cardio Palpation: normal PMI Rate: regular rate Rhythm: regular rhythm GI Inspection: normal to inspection Auscultation: normal bowel sounds Percussion: normal to percussion Palpation: no hepatosplenomegaly Skin General: no rashes or lesions noted Neuro General: patient alert Extrem General: normal to inspection Psych Affect: normal affect Quality Reporting Tobacco Screening (CMS 138) Smoking Status: Former smoker Assessment and Plan Assessment and Plan (1) LLQ abdominal pain: Status: Chronic Plan: The differential diagnosis for left lower quadrant pain does include chronic idiopathic constipation. She does eat 6 prunes a day and it does allow her to have a bowel movement. However after reviewing her CAT scan that she had on 12/20/2021 she did this have a lot of stool burden along with some mild diverticular disease even though it was not reported in the CAT scan. Also needs of his diagnosis would be low-grade ischemia due to the calcium burden that was seen on her CT scan on 12/20/2021. We went over her CT scan in detail and she does have some collapse of vertebrae in the lumbar spine that could also be causing her symptoms. Office examination I did not feel like it was coming from her left hip. Also did not appreciate any hernia. There was a little bit of discomfort in the left lower quadrant after palpating her spinous processes. Hopefully will be able to elicit more when we get a CT scan and MRI. For now all I will put her on Fiber Choice 2 tabs at night and she will continue the prunes during the day. (2) abnormal CT scan: She did have a CT scan abdomen pelvis recently and 12/20/2022 that showed : There is a 1.6 cm rounded filling defect in the inferior portion of the duodenum. A polyp should be ruled out. We will perform an upper endoscopy to evaluate this abnormality seen on CT scan. I have examined the patient and the H&P has been reviewed. There are no clinical changes since date of exam.
--- NOTE | 2023-02-17 08:00 | EGD_PTH ---
PATIENT: JIL DÍAZ LOC: EN U#:[id number] AGE/SX: 82/F ROOM: RE02/17/[address]: Dr. Stan Ng DO : 1940 BED: DIS: 02/17/2023 SPEC #: [id number] RECD: 02/17/23 11:15 STATUS: PHIL REQ #: [id number] SOPHIE: 02/17/23 08:[address]: Stan Ng DEPT: SURGICAL PATHOLOGY RECD BY: Rosalind Clemons ENTERED: 02/17/23 11:40 SP TYPE: EGD BIOPSY OTHR DR: Dr. Bjorn Soares MD Tissues: Gastric mucous membrane Procedures: Surgery Specimen Level IV HEADER OPERATION: EGD with biopsy PRE-OP DIAGNOSIS: Left lower quadrant abdominal pain TISSUE SUBMITTED: Antrum biopsy for path and H. pylori MICROSCOPIC DIAGNOSIS Gastric antrum, biopsy: Mild chronic gastritis. Focal changes suggestive of mucosal ischemia. See comment. AM:rosalind 02/18/2023 COMMENT The results of immunohistochemistry for Helicobacter pylori will be reported separately ([id number]). MICROSCOPIC DESCRIPTION Slides are reviewed. GROSS DESCRIPTION Received in fixative is one container labeled with the patient's name and designated antrum biopsy. The specimen consists of multiple irregular fragments of light crawley soft tissue that in aggregate measure 1.4 x 0.3 x 0.1 cm. The specimen is totally submitted in one cassette. / SJ:rosalind 02/17/2023 TC:3 CPT: 53707
--- NOTE | 2023-02-17 08:00 | IMM_PTH ---
PATIENT: JIL DÍAZ LOC: EN U#:[id number] AGE/SX: 82/F ROOM: RE02/17/[address]: Dr. Stan Ng DO : 1940 BED: DIS: 02/17/2023 SPEC #: [id number] RECD: 02/17/23 13:40 STATUS: PHIL REQ #: [id number] SOPHIE: 02/17/23 08:[address]: Stan Ng DEPT: IMMUNOHISTOCHEMISTRY RECD BY: Ayse Clements ENTERED: 02/17/23 13:40 SP TYPE: IMMUNO OTHR DR: Dr. Bjorn Soares MD Tissues: Stomach, NOS Procedures: H Pylori (initial) PHYSICIAN & INSTITUTION [facility] [id number] SPECIMEN INFORMATION: Tissue Source: Antrum Clinical Info: Left lower quadrant abdominal pain Specimen Number: [id number] CPT code: 27978 METHODOLOGY: Deparaffinized sections of prefer/formalin-fixed tissue or PAP/DQ stained slides are incubated with monoclonal/polyclonal antibodies/oligonucleotide probes. Localization is made via biotin free immunoperoxidase method. Appropriate controls are performed and reacted as expected. Results on target cell population are indicated in the following table: RESULTS: ANTIBODY / CLONE RESULT H Pylori (polyclonal) negative These tests were developed and their performance characteristics determined by [facility]. They may not have been cleared or approved by the U.[place]. Food and Drug Administration. The FDA has determined that such clearance or approval is not necessary. The above immunohistochemical/dualISH markers are ordered and reviewed by the Pathologist. INTERPRETATION: Antrum, biopsy: Negative for Helicobacter pylori organisms. AM:rosalind 02/18/2023
[2023-02-17 08:05] VITALS: BP 116/49; BP 136/54; PULSE 64; RESP 18; TEMP 36.2; O2SAT 94
--- NOTE | 2023-02-17 08:08 | OP.CCLET_ITS ---
02/17/2023 Bjorn Soares Re : Upper GI endoscopy procedure for Patricia Correar Rodger This procedure was performed on Friday, February 17, 2023. My impressions and recommendations are as follows: Impressions : - Normal esophagus. - Hematin (altered blood/ifopch-adrsjd-fjtk material) in the gastric body. - Oozing gastric ulcer with pigmented material. Treated with a heater probe. Biopsied. - Non-bleeding duodenal diverticulum. Recommendations : - Discharge patient to home. - Resume previous diet. - Continue present medications. - Await pathology results. - Use Protonix (pantoprazole) 40 mg PO BID for 12 weeks. My findings are described in the full procedure note, which is enclosed. If I can be of further assistance, please feel free to contact me at . Sincerely, Stan Ng, 02/17/2023 8:07:40 AM This report has been signed electronically.
--- NOTE | 2023-02-17 08:08 | OP.EGD_ITS ---
Patient Name: Patricia Hurley Procedure Date: 02/17/2023 7:42 AM Date of : 1940 Age: 82 Procedure: Upper GI endoscopy Indications: Epigastric abdominal pain Providers: Stan Ng DO Medicines: Monitored Anesthesia Care Patient Profile: This is an 82 year old female. Refer to note in patient chart for documentation of history and physical. Patient has symptoms of acute epigastric abdominal pain. Complications: No immediate complications. Procedure: Pre-Anesthesia Assessment: - Prior to the procedure, a History and Physical was performed, and patient medications and allergies were reviewed. The risks and benefits of the procedure and the sedation options and risks were discussed with the patient. All questions were answered and informed consent was obtained. Patient identification and proposed procedure were verified by the physician in the pre-procedure area. Mental Status Examination: alert and oriented. Airway Examination: normal oropharyngeal airway and neck mobility. Respiratory Examination: clear to auscultation. CV Examination: normal. Prophylactic Antibiotics: The patient does not require prophylactic antibiotics. Prior Anticoagulants: The patient has taken no anticoagulant or antiplatelet agents. ASA Grade Assessment: II - A patient with mild systemic disease. After reviewing the risks and benefits, the patient was deemed in satisfactory condition to undergo the procedure. The anesthesia plan was to use monitored anesthesia care (MAC). Immediately prior to administration of medications, the patient was re-assessed for adequacy to receive sedatives. The heart rate, respiratory rate, oxygen saturations, blood pressure, adequacy of pulmonary ventilation, and response to care were monitored throughout the procedure. The physical status of the patient was re-assessed after the procedure. After obtaining informed consent, the endoscope was passed under direct vision. Throughout the procedure, the patient's blood pressure, pulse, and oxygen saturations were monitored continuously. The Colonoscope was introduced through the mouth, and advanced to the second part of duodenum. The upper GI endoscopy was accomplished without difficulty. The patient tolerated the procedure well. Scope In: 7:51:14 AM Scope Out: 7:57:59 AM Total Procedure Duration Time 0 hours 6 minutes 45 seconds Findings: The examined esophagus was normal. Hematin (altered blood/olksht-inmgna-rqkp material) was found in the gastric body. One oozing linear gastric ulcer with pigmented material was found in the gastric antrum. The lesion was 4 mm in largest dimension. Coagulation for hemostasis using heater probe was successful. Estimated blood loss was minimal. Biopsies were taken with a cold forceps for histology. Verification of patient identification for the specimen was done. Estimated blood loss was minimal. Biopsies were taken with a cold forceps for Helicobacter pylori testing. Verification of patient identification for the specimen was done. Estimated blood loss was minimal. A 5 mm non-bleeding diverticulum was found in the first portion of the duodenum, in the second portion of the duodenum, in the area of the papilla and in the third portion of the duodenum. Impression: - Normal esophagus. - Hematin (altered blood/femjbp-cwzxcg-kzkn material) in the gastric body. - Oozing gastric ulcer with pigmented material. Treated with a heater probe. Biopsied. - Non-bleeding duodenal diverticulum. Recommendation: - Discharge patient to home. - Resume previous diet. - Continue present medications. - Await pathology results. - Use Protonix (pantoprazole) 40 mg PO BID for 12 weeks. Procedure Code(s): --- Professional --- 63892, 59, Esophagogastroduodenoscopy, flexible, transoral; with control of bleeding, any method 17458, 51, Esophagogastroduodenoscopy, flexible, transoral; with biopsy, single or multiple CPT copyright 2021 [employer]. All rights reserved. The codes documented in this report are preliminary and upon sheet metal assembler review may be revised to meet current compliance requirements. Stan Ng DO 02/17/2023 8:07:40 AM This report has been signed electronically. Number of Addenda: 0 Note Initiated On: 02/17/2023 7:42 AM
[2023-02-17 08:10] VITALS: BP 101/46; BP 136/54; PULSE 64; RESP 18; O2SAT 95
[2023-02-17 08:15] VITALS: BP 111/50; BP 136/54; PULSE 62; RESP 18; O2SAT 99
[2023-02-17 08:19] VITALS: BP 114/60; BP 136/54; PULSE 62; RESP 12; TEMP 36.2; O2SAT 100
[2023-02-17 08:43] VITALS: BP 136/54
== END 2023-02-17 08:49 | disposition home or self-care (01) ==
LOC: EN 06:55 → AC 06:57
PROVIDERS: PCP Family Medicine; Referring Provider Family Medicine; Visit Provider Internal Medicine Gastroenterology
PROC: 0DJ08ZZ Inspection of Upper Intestinal Tract, Via Natural or Artificial Opening Endoscopic (ICD-10-PCS; CPT 43235; principal; 2023-02-17 07:55)
DX: R10.32 Left lower quadrant pain (principal); N18.30 Chronic kidney disease, stage 3 unspecified; K25.9 Gastric ulcer, unspecified as acute or chronic, without hemorrhage or perforation; Z87.891 Personal history of nicotine dependence; K57.10 Diverticulosis of small intestine without perforation or abscess without bleeding; H40.9 Unspecified glaucoma; R01.1 Cardiac murmur, unspecified; I34.0 Nonrheumatic mitral (valve) insufficiency; I12.9 Hypertensive chronic kidney disease with stage 1 through stage 4 chronic kidney disease, or unspecified chronic kidney disease; G47.00 Insomnia, unspecified; E78.5 Hyperlipidemia, unspecified; K21.9 Gastro-esophageal reflux disease without esophagitis; Z79.899 Other long term (current) drug therapy; R93.5 Abnormal findings on diagnostic imaging of other abdominal regions, including retroperitoneum; K29.50 Unspecified chronic gastritis without bleeding; K31.89 Other diseases of stomach and duodenum
CPT/HCPCS: 43239; 43255; 88305; 88342; J7120

== ENCOUNTER → 2023-03-09 | Outpatient (CLI) | payer MEDICARE, OTHER, SELFPAY ==
[2023-03-14 17:07] LABS: Pancreatic Elastase, Fecal > 500 (>200)
[2023-03-16 18:07] LABS: Calprotectin, Stool 48 ug/g (0-120); Fats, Neutral Normal (.); Fats, Total Normal (.)
== END | disposition home or self-care (01) ==
LOC: LAB 12:14 → LABSPEC 12:15
PROVIDERS: PCP Family Medicine; Referring Provider Internal Medicine Gastroenterology; Visit Provider Internal Medicine Gastroenterology
DX: R10.32 Left lower quadrant pain (principal); K58.9 Irritable bowel syndrome, unspecified; R19.7 Diarrhea, unspecified; K59.09 Other constipation; R93.5 Abnormal findings on diagnostic imaging of other abdominal regions, including retroperitoneum
CPT/HCPCS: 82653; 82705; 83630; 83993; 87177; 87209; 87329; 87506

== ENCOUNTER → 2023-04-12 | Outpatient (CLI) | payer MEDICARE, OTHER, SELFPAY ==
[2023-04-12 16:08] LABS: Absolute Lymphocyte Count 1.42 X10^3/uL (0.83-4.51); Absolute Neutrophil Count 7.2 X10^3/uL (2.0-7.7); Basophil# 0.02 X10^3/uL; Basophil% 0.2 % (0-1); Eosinophil# 0.03 X10^3/uL; Eosinophils% 0.3 % (0-5); Hematocrit 48.6 % (37-47); Hemoglobin 15.5 g/dL (12.0-15.0); Lymphocyte # 1.42 X10^3/ul (0.83-4.51); Lymphocyte % 15.1 % (19-41); Mean Corp Hgb Conc 31.9 g/dL (32-36); Mean Corpuscular Hgb 30.5 pg (27.0-32.0); Mean Corpuscular Volume 95.5 fL (81-99); Mean Platelet Vol. 8.1 fl (6.2-12.0); Monocyte% 7.5 % (0-10); NRBC Flagged by Analyzer 0 % (0-5); Neutrophil # 7.17 X10^3/uL (2.7-7.7); Neutrophil % 76.4 % (47-70); Platelet Count 255 K/mm3 (150-450); RBC Distribution Width CV 14.3 % (11.6-14.6); RBC Distribution Width SD 50.1 fl (35.1-43.9); Red Blood Count 5.09 M/mm3 (4.2-5.4); White Blood Count 9.4 K/mm3 (4.4-11.0)
[2023-04-12 16:26] LABS: BNP,B-Type NATRIURETIC PEPTIDE 354.3 pg/mL (0-100)
[2023-04-12 16:36] LABS: Anion Gap 5 (5-15); BUN 19 mg/dL (7-18); BUN/Creat Ratio 19.8 RATIO (10-20); Calcium,Total 8.7 mg/dL (8.5-10.1); Chloride 109 mmol/L (98-107); Creatinine, Serum 0.96 mg/dL (0.55-1.02); EST Glomerular Filtration Rate 59 mL/min (>60); Est Glom Filt Rate - Afr Amer 71 mL/min (>60); Glucose 125 mg/dL (74-106); Magnesium 2.5 mg/dL (1.6-2.6); Potassium 3.8 mmol/L (3.5-5.1); Sodium Level 141 mmol/L (136-145); T4 Free Direct 1.08 ng/dL (0.76-1.46); Thyroid Stim Hormone (TSH) 1.09 uIU/mL (0.358-3.74)
== END | disposition home or self-care (01) ==
LOC: LAB 15:56
PROVIDERS: PCP Family Medicine; Referring Provider Nurse Practitioner Family; Visit Provider Nurse Practitioner Family
DX: R06.09 Other forms of dyspnea (principal); I48.91 Unspecified atrial fibrillation; I35.0 Nonrheumatic aortic (valve) stenosis; I34.0 Nonrheumatic mitral (valve) insufficiency; I10 Essential (primary) hypertension
CPT/HCPCS: 36415; 80048; 83735; 83880; 84439; 84443; 85025

== ENCOUNTER → 2023-05-13 | Outpatient (CLI) | payer MEDICARE, OTHER, SELFPAY ==
--- NOTE | 2023-05-13 10:56 | ECHOD_ITS ---
Reason For Study: SOB Procedure This was a 2D Doppler, Color Flow transthoracic echocardiogram. The study was technically difficult. Due to heart rhythm. Exam performed in department. Nilton DANIELSON notified of PT's increased HR. Nilton spoke with patient. Left Ventricle Normal left ventricle. Left ventricular systolic function is normal. The estimated ejection fraction is 56 %. No regional wall motion abnormalities noted. Right Ventricle Normal RV size. Normal systolic function. Mitral Valve Mild focal mitral valve calcification, bileaflet. Mild (1+) mitral valve insufficiency. Tricuspid Valve Normal tricuspid valve. Mild (1+) tricuspid valve insufficiency. Pulmonary artery systolic pressure is 30 mmHg. Aortic Valve Trisinus/trileaflet aortic valve. Mild diffuse aortic valve thickening. Moderate to severe aortic stenosis. Peak aortic valve gradient 53 mmHg. Mean aortic valve gradient 31 mmHg. Mild (1+) aortic valve insufficiency. Pulmonic Valve Normal pulmonic valve. Great Vessels Normal aortic root. The pulmonary artery is normal size. Normal inferior vena cava. Pericardium/Pleural No pericardial effusion. MMode/2D Measurements & Calculations LVIDd: 5.1 cm IVSd: 0.97 cm LVOT diam: 1.9 cm LVIDs: 3.6 cm LVPWd: 1.1 cm LVOT area: 2.9 cm2 FS: 29.1 % Ao root diam: 3.3 cm LAV(MOD-bp): 65.9 ml LVAd ap4: 18.0 cm2 LAV(MOD-bp) Indexed: 39.3 ml/m2 LVLd ap4: 6.2 cm LAV(MOD-sp2): 61.7 ml EDV(MOD-sp4): 44.0 ml LAV(MOD-sp4): 63.5 ml EDV(sp4-el): 44.9 ml LVAs ap4: 10.9 cm2 LVLs ap4: 5.2 cm ESV(MOD-sp4): 20.2 ml ESV(sp4-el): 19.5 ml EF(MOD-sp4): 54.1 % EF(sp4-el): 56.5 % SV(MOD-sp4): 23.8 ml SV(MOD-sp2): 18.7 ml LVAd ap2: 15.2 cm2 LVLd ap2: 5.7 cm EDV(MOD-sp2): 33.7 ml EDV(sp2-el): 34.1 ml LVAs ap2: 9.3 cm2 LVLs ap2: 5.2 cm ESV(MOD-sp2): 15.1 ml ESV(sp2-el): 14.3 ml EF(MOD-sp2): 55.3 % SV(sp4-el): 25.3 ml LA A4 area: 19.7 cm2 LA dimension(2D): 4.3 cm TAPSE: 1.9 cm RA A4 area: 12.5 cm2 Doppler Measurements & Calculations MV E max rashard: 122.0 cm/sec Lat Peak E' Rashard: 8.3 cm/sec Med Peak E' Rashard: 8.3 cm/sec E/E' lat: 14.8 E/E' med: 14.8 MV V2 max: 155.3 cm/sec Ao V2 max: 362.1 cm/sec AI max rashard: 402.2 cm/sec MV max P.7 mmHg Ao max P.5 mmHg AI max P.8 mmHg MV V2 mean: 78.9 cm/sec Ao V2 mean: 265.4 cm/sec AI dec slope: 321.1 cm/sec2 MV mean P.0 mmHg Ao mean P.8 mmHg AI P1/2t: 366.9 msec MV V2 VTI: 30.4 cm Ao V2 VTI: 66.2 cm MVA(VTI): 1.7 cm2 AV (velocity ratio): 0.26 BRIDGET(I,D): 0.77 cm2 BRIDGET(V,D): 0.76 cm2 LV V1 max: 93.8 cm/sec SV(LVOT): 50.9 ml PA V2 max: 94.7 cm/sec LV V1 max P.5 mmHg PA V2 mean: 61.5 cm/sec LV V1 mean P.9 mmHg LV V1 mean: 64.7 cm/sec LV V1 VTI: 17.3 cm TR max rashard: 261.2 cm/sec TR max P.3 mmHg ECHO/Echo Complete Interpretation Summary Normal left ventricle. Left ventricular systolic function is normal. The estimated ejection fraction is 56 %. Moderate to severe aortic stenosis. Mean aortic valve gradient 31 mmHg. Compared to the previous it is unchanged. Ordering Physician: Nilton Rosa Referring Physician: Frederic Soares Performed By: Yumiko Sparrow, DULCE, RVT
--- OUTSIDE RECORDS SUMMARY | 2023-05-13 12:11 | XMS RPT_ITS | CCD ---
Author Name Unknown Address [address] [place] [address] Organization [facility] Care Team Providers Care Master Ocean Name Role Phone Tony Soares MD Primary Care Provider Felton Yancey Unavailable Ender Lucio Unavailable Romie Cueto (Hist) Unavailable Levy Ibarra Unavailable TONY SOARES Primary Care Unavailab TONY Orellana Referring Unavailab TONY Orellana Primary Care Unavailab TONY Orellana Referring Unavailab TONY Orellana Primary Care Unavailab TONY Orellana Referring Unavailab TONY Orellana Primary Care Unavailab TONY Orellana Attending Unavailab TONY Orellana Attending Unavailab TONY Orellana Primary Care Unavailab TONY Orellana Referring Unavailab TONY Orellana Primary Care Unavailab TONY Orellana Primary Care Unavailab le PODLOGTOPHER MARTINEZ Attending Unavailable TONY SOARES Primary Care Unavailab TONY Orellana Attending Unavailab TONY Orellana Primary Care Unavailab TONY Orellana Referring Unavailab TONY Orellana Primary Care Unavailab le PODLOGARTOPHER Attending Unavailable TONY SOARES Primary Care Unavailab TONY Orellana Attending Unavailab TONY Orellana Primary Care Unavailab le PODLOGARTOPHER Attending Unavailable TONY SOARES Primary Care UnavailTONY Rojas Attending CYNDY Ramirez Referring Unavailable TONY SOARES Primary Care TONY Dan Primary Care UnavailTONY Rojas Attending Tony Dan MD Primary Care Provider Felton Yancey MD Unavailable Ender Lucio MD Unavailable Romie Cueto Unavailable Stacey SHAH, Levy S Unavailable Allergies Allergy Classification Reported Allergen(s) Allergy Type Date of Onset Reaction(s) Facility (20 sources) oxyCODONE; Translations: [OXYCODONE] Drug Allergy 03-11-2017 Itching [facility] Medications Current Medications Medication Drug Class(es) Dates Sig (Normalized) Sig (Original) ciprofloxacin 250 mg oral tablet (1 source) Quinolone Antimicrobial Start: 12-18-2021 End: 12-21-2021 take 1 tablet by mouth twice daily ciprofloxacin HCl (CIPRO) 250 mg tablet Take 1 tablet by mouth twice daily for 3 days. 6 tablet 0 12/18/2021 12/21/2021 Active Completed/Discontinued Medications Medication Drug Class(es) Dates Sig (Normalized) Sig (Original) atorvastatin 10 mg oral tablet (20 sources) HMG-CoA Reductase Inhibitor Start: 11-22-2020 End: 07-24-2022 take 1 tablet by mouth once daily atorvastatin (LIPITOR) 10 mg tablet Take 1 tablet by mouth once daily. 90 tablet 3 07/24/2022 Active Problems Active Problems Problem Classification Problem Date Documented Da te Episodic/Chronic Chronic kidney disease (1 source) Chronic kidney disease stage 3A ; Translations: [Chronic kidney disease, stage 3a (HCC)] Chronic Chronic kidney disease (1 source) Chronic kidney disease; Translations: [Chronic kidney disease, stage 3a (HCC)] Onset: 3 Disorders of lipid metabolism (20 sources) Hyperlipidemia; Translations: [Hyperlipidemia, unspecified] Onset: 7 08-14-2016 Chronic Esophageal disorders (20 sources) Gastroesophageal reflux disease; Translations: [Gastro-esophageal reflux disease without esophagitis] 08-14-2016 Chronic Esophageal disorders (1 source) Esophageal disorders; Translations: [Gastroesophageal reflux disease with esophagitis, unspecified whether hemorrhage] Onset: 7 Essential hypertension (20 sources) Hypertensive disorder; Translations: [Essential (primary) hypertension] Onset: 0 11-14-2019 Chronic Gastroduodenal ulcer (except hemorrhage) (1 source) Peptic ulcer, site unspecified, unspecified as acute or chronic, without hemorrhage or perforation; Translations: [PUD (peptic ulcer disease)] Onset: 3 Chronic Gastrointestinal hemorrhage (1 source) Melena; Translations: [Melena] Onset: 3 Episodic Genitourinary symptoms and ill-defined conditions (20 sources) Incontinence; Translations: [Mixed incontinence] Onset: 1 04-09-2021 Chronic Heart valve disorders (20 sources) Mitral valve regurgitation; Translations: [Nonrheumatic mitral (valve) insufficiency] Onset: 1 02-15-2018 Chronic Heart valve disorders (20 sources) Heart murmur; Translations: [Cardiac murmur, unspecified] 08-14-2016 Episodic Immunizations and screening for infectious disease (2 sources) Patient encounter status; Translations: [Encounter for immunization] Onset: 3 03-15-2023 Episodic Melanomas of skin (20 sources) Malignant melanoma; Translations: [Malignant melanoma of skin, unspecified] 12-04-2016 Chronic Occlusion or stenosis of precerebral arteries (4 sources) Bilateral stenosis of carotid arteries; Translations: [Occlusion and stenosis of bilateral carotid arteries] Onset: 8 Chronic Other bone disease and musculoskeletal deformities (1 source) Scapulalgia; Translations: [Other specified disorders of bone, shoulder] Episodic Other circulatory disease (20 sources) Disorder of carotid artery; Translations: [Disorder of arteries and arterioles, unspecified] Onset: 8 11-20-2017 Chronic Other connective tissue disease (1 source) Plantar fasciitis; Translations: [Plantar fascial fibromatosis] Episodic Other diseases of bladder and urethra (20 sources) Overactive bladder; Translations: [Overactive bladder] Onset: 1 04-09-2021 Chronic Other diseases of bladder and urethra (1 source) Overactive bladder; Translations: [OAB (overactive bladder)] Onset: 1 Chronic Other lower respiratory disease (1 source) Cough; Translations: [Acute cough] 03-31-2023 Episodic Other skin disorders (1 source) Loss of hair; Translations: [Nonscarring hair loss, unspecified] Episodic Pulmonary heart disease (20 sources) Pulmonary arterial hypertension; Translations: [Secondary pulmonary arterial hypertension] Onset: 3 Chronic Residual codes; unclassified (20 sources) Insomnia; Translations: [Insomnia, unspecified] 08-14-2016 Episodic Urinary tract infections (1 source) Recurrent urinary tract infection; Translations: [Urinary tract infection, site not specified] Episodic Viral infection (20 sources) Postherpetic neuralgia; Translations: [Other postherpetic nervous system involvement] 08-14-2016 Episodic Past or Other Problems Problem Classification Problem Date Documented Da te Episodic/Chronic Abdominal pain (5 sources) Left lower quadrant pain; Translations: [Left lower quadrant pain] Onset: 08-20-2022 Episodic Acute and unspecified renal failure (1 source) Acute kidney failure, unspecified; Translations: [NICOLE (acute kidney injury) (HCC)] Onset: 09-04-2022 Episodic Allergic reactions (20 sources) Chronic urticaria; Translations: [Other urticaria] Onset: 05-13-2016 05-13-2016 Episodic E Codes: Fall (20 sources) Fall; Translations: [Unspecified fall, initial encounter] Onset: 12-19-2018 12-19-2018 Episodic Genitourinary symptoms and ill-defined conditions (5 sources) Dysuria; Translations: [Dysuria] Onset: 06-30-2022 Episodic Other circulatory disease (1 source) Nevus, non-neoplastic; Translations: [Spider veins] Onset: 06-30-2022 Episodic Other lower respiratory disease (20 sources) Dyspnea on exertion; Translations: [Dyspnea, unspecified] Onset: 11-20-2017 11-20-2017 Episodic Other screening for suspected conditions (not mental disorders or infectious disease) (1 source) Encounter for screening mammogram for malignant neoplasm of breast; Translations: [Screening mammogram for breast cancer] Onset: 07-06-2022 Episodic Results Test Name Value Interpretation Reference Range Facil ity Vital Signs Date Time Vital Sign Value Performing Clinician Faci lity 11-29-2023 10:31-0500 Body temperature 98.29 [degF] Topher Podlogar KEYBOARDING TEACHER.QUALITY IMPROVEMENT COORDINATOR (RN) Work Phone: [facility] 03-31-2023 10:31-0500 Body weight 67.31 kg Topher Podlogar KEYBOARDING TEACHER.QUALITY IMPROVEMENT COORDINATOR (RN) Work Phone: [facility] 03-31-2023 10:31-0500 Diastolic blood pressure 84 mm[Hg] Topher Podlogar KEYBOARDING TEACHER.QUALITY IMPROVEMENT COORDINATOR (RN) Work Phone: [facility] 03-31-2023 10:31-0500 Heart rate 95 /min Topher Podlogar KEYBOARDING TEACHER.QUALITY IMPROVEMENT COORDINATOR (RN) Work Phone: [facility] 03-31-2023 10:31-0500 Respiratory rate 20 /min Topher Podlogar KEYBOARDING TEACHER.QUALITY IMPROVEMENT COORDINATOR (RN) Work Phone: [facility] 03-31-2023 10:31-0500 SaO2% (BldA) [Mass fraction] 98 % Topher Podlogar KEYBOARDING TEACHER.QUALITY IMPROVEMENT COORDINATOR (RN) Work Phone: [facility] 03-31-2023 10:31-0500 Systolic blood pressure 138 mm[Hg] Topher Podlogar KEYBOARDING TEACHER.QUALITY IMPROVEMENT COORDINATOR (RN) Work Phone: [facility] 03-15-2023 13:47-0500 Body weight 68.58 kg Tony Soares MD Work Phone: [facility] 03-15-2023 13:47-0500 Diastolic blood pressure 74 mm[Hg] Tony Soares MD Work Phone: [facility] 03-15-2023 13:47-0500 Heart rate 77 /min Tony Soares MD Work Phone: [facility] 03-15-2023 13:47-0500 Respiratory rate 16 /min Tony Soares MD Work Phone: [facility] 03-15-2023 13:47-0500 SaO2% (BldA) [Mass fraction] 97 % Tony Soares MD Work Phone: [facility] 03-15-2023 13:47-0500 Systolic blood pressure 118 mm[Hg] Tony Soares MD Work Phone: [facility] 03-05-2023 18:35-0400 Body weight 67.5 kg Topher Podlogar KEYBOARDING TEACHER.QUALITY IMPROVEMENT COORDINATOR (RN) Work Phone: [facility] 03-05-2023 18:35-0400 Diastolic blood pressure 68 mm[Hg] Topher Podlogar KEYBOARDING TEACHER.QUALITY IMPROVEMENT COORDINATOR (RN) Work Phone: [facility] 03-05-2023 18:35-0400 Heart rate 64 /min Topehr Podlogar KEYBOARDING TEACHER.QUALITY IMPROVEMENT COORDINATOR (RN) Work Phone: [facility] 03-05-2023 18:35-0400 Respiratory rate 16 /min Topher Podlogar KEYBOARDING TEACHER.QUALITY IMPROVEMENT COORDINATOR (RN) Work Phone: [facility] 03-05-2023 18:35-0400 SaO2% (BldA) [Mass fraction] 98 % Topher Podlogar KEYBOARDING TEACHER.QUALITY IMPROVEMENT COORDINATOR (RN) Work Phone: [facility] 03-05-2023 18:35-0400 Systolic blood pressure 140 mm[Hg] Topher Podlogar KEYBOARDING TEACHER.QUALITY IMPROVEMENT COORDINATOR (RN) Work Phone: [facility] 02-08-2023 08:01-0400 Body weight 65.77 kg Tony Soares MD Work Phone: [facility] 02-08-2023 08:01-0400 Diastolic blood pressure 60 mm[Hg] Tony Soares MD Work Phone: [facility] 02-08-2023 08:01-0400 Heart rate 60 /min Tony Soares MD Work Phone: [facility] 02-08-2023 08:01-0400 Respiratory rate 16 /min Tony Soares MD Work Phone: [facility] 02-08-2023 08:01-0400 SaO2% (BldA) [Mass fraction] 96 % Tony Soares MD Work Phone: [facility] 02-08-2023 08:01-0400 Systolic blood pressure 104 mm[Hg] Tony Soares MD Work Phone: [facility] 10-14-2022 15:46-0400 Body temperature 98.6 [degF] Topher Podlogar KEYBOARDING TEACHER.QUALITY IMPROVEMENT COORDINATOR (RN) Work Phone: [facility] 10-14-2022 15:46-0400 Body weight 67.77 kg Topher Podlogar KEYBOARDING TEACHER.QUALITY IMPROVEMENT COORDINATOR (RN) Work Phone: [facility] 10-14-2022 15:46-0400 Diastolic blood pressure 68 mm[Hg] Topher Podlogar KEYBOARDING TEACHER.QUALITY IMPROVEMENT COORDINATOR (RN) Work Phone: [facility] 10-14-2022 15:46-0400 Heart rate 76 /min Topher Podlogar KEYBOARDING TEACHER.QUALITY IMPROVEMENT COORDINATOR (RN) Work Phone: [facility] 10-14-2022 15:46-0400 Respiratory rate 16 /min Topher Podlogar KEYBOARDING TEACHER.QUALITY IMPROVEMENT COORDINATOR (RN) Work Phone: [facility] 10-14-2022 15:46-0400 SaO2% (BldA) [Mass fraction] 96 % Topher Podlogar KEYBOARDING TEACHER.QUALITY IMPROVEMENT COORDINATOR (RN) Work Phone: [facility] 10-14-2022 15:46-0400 Systolic blood pressure 130 mm[Hg] Topher Podlogar KEYBOARDING TEACHER.QUALITY IMPROVEMENT COORDINATOR (RN) Work Phone: [facility] 09-07-2022 13:57-0400 Body weight 67.13 kg Tony Soares MD Work Phone: [facility] 09-07-2022 13:57-0400 Diastolic blood pressure 78 mm[Hg] Tony Soares MD Work Phone: [facility] 09-07-2022 13:57-0400 Heart rate 72 /min Tony Soares MD Work Phone: [facility] 09-07-2022 13:57-0400 Respiratory rate 14 /min Tony Soares MD Work Phone: [facility] 09-07-2022 13:57-0400 Systolic blood pressure 136 mm[Hg] Tony Soares MD Work Phone: [facility] 03-04-2022 13:31-0400 Body weight 66.22 kg Topher Podlogar KEYBOARDING TEACHER.QUALITY IMPROVEMENT COORDINATOR (RN) Work Phone: [facility] 03-04-2022 13:31-0400 Diastolic blood pressure 68 mm[Hg] Topher Podlogar KEYBOARDING TEACHER.QUALITY IMPROVEMENT COORDINATOR (RN) Work Phone: [facility] 03-04-2022 13:31-0400 Heart rate 78 /min Topher Podlogar KEYBOARDING TEACHER.QUALITY IMPROVEMENT COORDINATOR (RN) Work Phone: [facility] 03-04-2022 13:31-0400 Respiratory rate 16 /min Topher Podlogar KEYBOARDING TEACHER.QUALITY IMPROVEMENT COORDINATOR (RN) Work Phone: [facility] 03-04-2022 13:31-0400 SaO2% (BldA) [Mass fraction] 95 % Topher Podlogar KEYBOARDING TEACHER.QUALITY IMPROVEMENT COORDINATOR (RN) Work Phone: [facility] 03-04-2022 13:31-0400 Systolic blood pressure 138 mm[Hg] Topher Podlogar KEYBOARDING TEACHER.QUALITY IMPROVEMENT COORDINATOR (RN) Work Phone: [facility] 01-03-2022 12:29-0400 Body temperature 98.2 [degF] Celia David KEYBOARDING TEACHER.QUALITY IMPROVEMENT COORDINATOR (RN) Work Phone: [facility] 01-03-2022 12:29-0400 Body weight 66.68 kg Celia David KEYBOARDING TEACHER.QUALITY IMPROVEMENT COORDINATOR (RN) Work Phone: [facility] 01-03-2022 12:29-0400 Diastolic blood pressure 68 mm[Hg] Celia David KEYBOARDING TEACHER.QUALITY IMPROVEMENT COORDINATOR (RN) Work Phone: [facility] 01-03-2022 12:29-0400 Heart rate 65 /min Celia David KEYBOARDING TEACHER.QUALITY IMPROVEMENT COORDINATOR (RN) Work Phone: [facility] 01-03-2022 12:29-0400 Respiratory rate 16 /min Celia David KEYBOARDING TEACHER.QUALITY IMPROVEMENT COORDINATOR (RN) Work Phone: [facility] 01-03-2022 12:29-0400 SaO2% (BldA) [Mass fraction] 97 % Celia David APRN.QUALITY IMPROVEMENT COORDINATOR (RN) Work Phone: [facility] 01-03-2022 12:29-0400 Systolic blood pressure 112 mm[Hg] Celia David APRN.QUALITY IMPROVEMENT COORDINATOR (RN) Work Phone: [facility] 12-22-2021 16:32-0400 Body temperature 98.6 [degF] Tony Soares MD Work Phone: [facility] 12-22-2021 16:32-0400 Diastolic blood pressure 60 mm[Hg] Tony Soares MD Work Phone: [facility] 12-22-2021 16:32-0400 Heart rate 67 /min Tony Soares MD Work Phone: [facility] 12-22-2021 16:32-0400 Respiratory rate 16 /min Tony Soares MD Work Phone: [facility] 12-22-2021 16:32-0400 SaO2% (BldA) [Mass fraction] 99 % Tony Soares MD Work Phone: [facility] 12-22-2021 16:32-0400 Systolic blood pressure 122 mm[Hg] Tony Soares MD Work Phone: [facility] 12-18-2021 14:36-0400 Body temperature 98.8 [degF] Tony Soares MD Work Phone: [facility] 12-18-2021 14:36-0400 Body weight 67.68 kg Tony Soares MD Work Phone: [facility] 12-18-2021 14:36-0400 Diastolic blood pressure 62 mm[Hg] Tony Soares MD Work Phone: [facility] 12-18-2021 14:36-0400 Heart rate 64 /min Tony Soares MD Work Phone: [facility] 12-18-2021 14:36-0400 Respiratory rate 16 /min Tony Soares MD Work Phone: [facility] 12-18-2021 14:36-0400 Systolic blood pressure 104 mm[Hg] Tony Soares MD Work Phone: [facility] 09-24-2021 15:23-0400 Body weight 66.68 kg Tony Soares MD Work Phone: [facility] 09-24-2021 15:23-0400 Diastolic blood pressure 80 mm[Hg] Tony Soares MD Work Phone: [facility] 09-24-2021 15:23-0400 Heart rate 72 /min Tony Soares MD Work Phone: [facility] 09-24-2021 15:23-0400 Respiratory rate 14 /min Tony Soares MD Work Phone: [facility] 09-24-2021 15:23-0400 Systolic blood pressure 124 mm[Hg] Tony Soares MD Work Phone: [facility] 09-01-2021 11:04-0400 Body weight 68.13 kg Tony Soares MD Work Phone: [facility] 09-01-2021 11:04-0400 Diastolic blood pressure 58 mm[Hg] Tony Soares MD Work Phone: [facility] 09-01-2021 11:04-0400 Heart rate 64 /min Tony Soares MD Work Phone: [facility] 09-01-2021 11:04-0400 Respiratory rate 18 /min Tony Soares MD Work Phone: [facility] 09-01-2021 11:04-0400 SaO2% (BldA) [Mass fraction] 98 % Tony Soares MD Work Phone: [facility] 09-01-2021 11:04-0400 Systolic blood pressure 112 mm[Hg] Tony Soares MD Work Phone: [facility] Encounters Encounter Date Encounter Type Care Provider Facility Start: 04-12-2023 Refill Tony Soares MD Work Phone: [facility] Procedures Date Procedure Procedure Detail Performing Clinician Start: 10-14-2022 Urnls dip stick/tabl et rgnt auto w/o microscopy Topher Colon APRN.CNP Work Phone: Start: 01-03-2022 Urnls dip stick/tabl et rgnt auto w/o microscopy Atif Kellogg MD Work Phone: Plan of Treatment Date Care Activity Detail Author Start: 07-08-2031 Urine microalbumin profile [facility] Start: 02-23-2026 [facility] Start: 09-04-2025 DIABETES SCREEN DIABETES SCREEN [facility] Start: 09-04-2025 [facility] Start: 08-17-2025 DIABETES SCREEN DIABETES SCREEN [facility] Start: 09-01-2024 DIABETES SCREEN DIABETES SCREEN [facility] Start: 02-19-2024 DIABETES SCREEN DIABETES SCREEN [facility] Start: 02-09-2024 Covid-19 Vaccine ( season) Covid-19 Vaccine () [facility] Immunizations Immunization Date Immunization Notes Care Provider Rupinder davidson 03-17-2023 respiratory syncytia l virus (RSV) vaccine, unspecified formulation Tony Soares MD Work Phone: [facility] 03-15-2023 pneumococcal Conjuga te, unspecified formulation Tony Soares MD Work Phone: [facility] Work Phone: 03-15-2023 pneumococcal (PCV20) vaccine, 20 valent (PREVNAR 20) Tony Soares MD Work Phone: [facility] 07-07-2021 tetanus toxoid, redu andrea diphtheria toxoid, and acellular pertussis vaccine, adsorbed Tony Soares MD Work Phone: [facility] 09-13-2020 COVID-19 vaccine, ag e 12+ yr ([employer] - [facility]) Tony Soares MD Work Phone: [facility] 08-30-2018 zoster vaccine recombinant Tony Soares MD Work Phone: [facility] 02-15-2018 influenza virus vaccine, unspecified formulation Tony Soares MD Work Phone: [facility] 12-11-2017 zoster vaccine recombinant Tony Soares MD Work Phone: [facility] 12-07-2017 zoster vaccine recombinant Tony Soares MD Work Phone: [facility] 02-15-2017 influenza, high dose seasonal, preservative-free Tony Soares MD Work Phone: [facility] 12-08-2008 pneumococcal polysaccharide vaccine, 23 valent Tony Soares MD Work Phone: [facility] Payers Date Payer Category Payer Unknown HOSPITAL/MEDICAL GENERIC MEDICAL GENERIC [id number] 2014-Present [phone] [address] [facility] [place] [address] Indemnity [id number] 2014 Unknown HOSPITAL/MEDICAL GENERIC MEDICAL GENERIC [id number] 2014-Present [phone] [facility] [place] [address] Indemnity [id number] 2014 Unknown [id number] 2004 Medicare MEDICARE MEDICAR E A AND B [id number] 2004-Present [phone] [place] [address] Medicare [id number] 2004 Medicare MEDICARE MEDICAR E A AND B [id number] 2004-Present [phone] [place] [address] Medicare [id number] 2004 Medicare [id number] Social History Date Type Detail Facility Start: 05-13-2016 End: 12-18-2021 Tobacco smoking status NHIS Ex-smoker [facility] End: 05-03-1988 History of tobacco use Current smoker [facility] Start: 05-13-2016 End: 09-07-2022 Cigarettes smoked current (pack per day) - Reported 0.5 [facility] Start: 05-13-2016 End: 12-18-2021 Tobacco use and exposure Smokeless tobacco non-user [facility] Start: 07-21-2021 End: 03-31-2023 Alcohol intake Current non-drinker of alcohol (finding) [facility] Start: 01-24-2018 History SDOH Alcohol Frequency 1 [facility] Start: 01-24-2018 History SDOH Social Connections Phone 5 [facility] Start: 01-24-2018 History SDOH Social Connections Living 4 [facility] Start: 01-24-2018 History SDOH Transpo rt Med 2 [facility] Start: 01-24-2018 Education 13 [facility] Start: 1940 Sex Assigned At Not on file [facility] Start: 07-11-2021 End: 12-22-2021 Exposure to SARS-CoV-2 (event) Not sure [facility] End: 05-03-1988 History of tobacco use Cigarette Smoker [facility] Start: 01-24-2018 End: 09-07-2022 Social connection and isolation panel [facility] Attends [employer] Not on file [facility] Work Phone: Are you now , , , , never or living with a partner? [facility] How often to you hav e a drink containing alcohol? Never [facility] Do you feel stress - tense, restless, nervous, or anxious, or unable to sleep at night because your mind is troubled all the time - these days [OSQ] Not at all [facility] (I/We) worried wheth er (my/our) food would run out before (I/we) got money to buy more. Never true [facility] Goals Date Patient Goal Desired Activity /State Personal health goal Clinical Notes 08-12-2021 to 04-12-2023 Telephone Encounter - Lillie Hu LPN - 04/12/2023 3:59 PM ESTTelephone Encounter - Lo Canseco - 04/12/2023 9:28 AM ESTPatient InstructionsPatient InstructionsPatient Instructions Note Date & Type Note Facility 04-12-2023 Miscellaneous Notes [facility] 03/31/2023 NOV 04/14/2023 Pharmacy verified in Epic Patient has been identified by name and date of : Yes Patient aware RX will be sent to pharmacy. No need to notify patient. Patient phones for refill(s): Requested Prescriptions Pending Prescriptions Disp Refills dilTIAZem CD (CARDIZEM CD, CARTIA XT) 120 mg 24 hr capsule 90 capsule 1 Sig: Take 1 capsule by mouth once daily. Date of last office visit : 03/31/2023 Date of next office visit : 09/13/2023 Last 2 Encounter Wt Readings: Date: Wt: 03/31/2023 67.3 kg (148 lb 6.4 oz) 03/15/2023 68.6 kg (151 lb 3.2 oz) Not applicable Please advise. Lo Cardoso Pss documented in this encounter [facility] 03-31-2023 Note HNO ID: [id number] Author: Topher Colon APRN.QUALITY IMPROVEMENT COORDINATOR (RN) Service: ? Author Type: Nurse Practitioner Type: Progress Notes Filed: 03/31/2023 10:50 AM Note Text: 03/31/2023 Patient presents with: Cough: X3 days SUBJECTIVE: This is a 82 year old that is here today for Above Complaints.. For the last three days has had cough. Not productive. Taking zyrtec.Denies fevers, chills, headaches, sore throat, nasal congestion, rhinorrhea, loss of taste/smell, SOB, dyspnea, nausea, vomiting or diarrhea. Reports feeling a little better this morning after taking a hot shower. PAST MEDICAL HISTORY Diagnosis Date Aortic stenosis moderate Basal cell carcinoma Cataracts, bilateral s/p removal Chronic urticaria seeing Dr. Card Concussion 05/2015 [address] off step stool COVID-19 GERD (gastroesophageal reflux disease) with esophagitis on EGD Glaucoma Hamstring strain bilateral legs Heart murmur History of shingles 2015 Hyperlipidemia Hypertension Insomnia Macular degeneration Melanoma (HCC) Mitral regurgitation Dr. Ibarra Post herpetic neuralgia lidocaine patch Premature contractions, atrial PUD (peptic ulcer disease) 01/2023 ALLERGIES Oxycodone MEDICATIONS Current Outpatient Medications Medication Sig pantoprazole DR (PROTONIX) 40 mg tablet Take 1 tablet by mouth daily before breakfast. Take on empty stomach, 1/2 hr before meal. losartan (COZAAR) 50 mg tablet Take 1 tablet by mouth once daily. dilTIAZem CD (CARDIZEM CD, CARTIA XT) 120 mg 24 hr capsule Take 1 capsule by mouth once daily. atorvastatin (LIPITOR) 10 mg tablet Take 1 tablet by mouth once daily. famotidine (PEPCID) 40 mg tablet Take 1 tablet by mouth twice daily. dorzolamide-timolol (COSOPT) 22.3-6.8 mg/mL ophthalmic solution Use 1 Drop in both eyes twice daily. brimonidine (ALPHAGAN) 0.2 % ophthalmic solution gabapentin (NEURONTIN) 300 mg capsule Take 1 tablet morning and bedtime May take one tablet in afternoon as needed for pain Per Dr. Martinez (Patient taking differently: 1 tablet at night; Per Dr. Martinez) lidocaine (LIDODERM) 5 % Apply 1 Patch as directed every 12 hours. latanoprost (XALATAN) 0.005 % ophthalmic solution Use 1 Drop in both eyes once daily. vit C,S-Er-wtczd-lutein-zeaxan (PRESERVISION AREDS-2) 250-90-40-1 mg Take 1 tablet by mouth twice daily at 6AM and 9PM. BIOTIN ORAL Take 5,000 mg by mouth once daily. Cholecalciferol, Vitamin D3, 25 mcg (1,000 unit) cap Take 1,000 Units by mouth once daily. CYANOCOBALAMIN, VITAMIN B-12, (VITAMIN B-12 ORAL) Take 1,000 mg by mouth once daily. No current facility-administered medications for this visit. Medications and allergies reviewed by this provider. SOCIAL HISTORY Social History Tobacco Use Smoking status: Former Packs/day: 0.50 Years: 10.00 Additional pack years: 0.00 Total pack years: 5.00 Types: Cigarettes Quit date: 05/03/1988 Years since quittin.9 Smokeless tobacco: Never Substance Use Topics Alcohol use: No Drug use: No REVIEW OF SYSTEMS All other reviewed and negative other than HPI. OBJECTIVE: BP 138/84 Pulse 95 Temp 36.8 ?C (98.3 ?F) Resp 20 Wt 67.3 kg (148 lb 6.4 oz) SpO2 98% BMI 25.47 kg/m? . Vital signs reviewed by this provider. APPEARANCE Well appearing, alert, in no acute distress, well-hydrated, well nourished. EYES conjunctiva and sclera normal. EARS External ears normal, canals clear THROAT normal, no erythema NECK Supple, no adenopathy; thyroid symmetric, normal size, no bruits HEART RRR with normal S1 and S2, no murmurs, no gallops, no JVD appreciated LUNG clear to auscultation. No wheezes, rhonchi or rales SKIN Skin color, texture, turgor normal, no suspicious rashes or lesions to exposed skin RSV Vaccine(1 - 1-dose 60+ series) Never done Advance Directive Discussion Never done Influenza Vaccine(1) due on 10/31/2023 Covid-19 Vaccine( - season) due on 02/09/2024 Diabetes Screening due on 02/23/2026 DTaP,Tdap,Td Vaccine(3 - Td or Tdap) due on 07/08/2031 Bone Density Screening Completed Depression Assessment Completed Shingrix Vaccine Completed Pneumococcal Vaccine: 65+ Completed ASSESSMENT/PLAN: 1. Acute cough - ICD9: 786.2, ICD10: R05.1 - no red flag symptoms or exam findings - red flag symptoms discussed, verbalizes understanding - recommend OTC mucinex for chest congestion and coricidin for cough - stay well hydrated with at least 60 ounces of water daily and use humidifier in bedroom - follow-up if symptoms fail to improve to ER with red flag symptoms Topher Podlogar, KEYBOARDING TEACHER.QUALITY IMPROVEMENT COORDINATOR (RN) Prescription instructions reviewed with patient as applicable. Patient advised if symptoms do not improve or if symptoms worsen sooner, to contact their primary care physician. Potential red flag symptoms discussed with the patient. Reviewed appropriate action plan to take if red flag symptoms occur. Patient agreeable to treatment plan. (more content not included)... [facility] 03-31-2023 Instructions Topher Colon APRN.CNP - 03/31/2023 10:42 AM EST May take mucinex over the counter as directed on package May use coricidin over the counter as directed on packaging documented in this encounter [facility] 03-31-2023 History of Presen t illness Narrative 03/31/2023 Patient presents with: Cough: X3 days SUBJECTIVE: This is a 82 year old that is here today for Above Complaints.. For the last three days has had cough. Not productive. Taking zyrtec.Denies fevers, chills, headaches, sore throat, nasal congestion, rhinorrhea, loss of taste/smell, SOB, dyspnea, nausea, vomiting or diarrhea. Reports feeling a little better this morning after taking a hot shower. PAST MEDICAL HISTORY Diagnosis Date Aortic stenosis moderate Basal cell carcinoma Cataracts, bilateral s/p removal Chronic urticaria seeing Dr. Card Concussion 05/2015 fell off step stool COVID-19 GERD (gastroesophageal reflux disease) with esophagitis on EGD Glaucoma Hamstring strain bilateral legs Heart murmur History of shingles 2015 Hyperlipidemia Hypertension Insomnia Macular degeneration Melanoma (HCC) Mitral regurgitation Dr. Ibarra Post herpetic neuralgia lidocaine patch Premature contractions, atrial PUD (peptic ulcer disease) 01/2023 ALLERGIES Oxycodone MEDICATIONS Current Outpatient Medications Medication Sig pantoprazole DR (PROTONIX) 40 mg tablet Take 1 tablet by mouth daily before breakfast. Take on empty stomach, 1/2 hr before meal. losartan (COZAAR) 50 mg tablet Take 1 tablet by mouth once daily. dilTIAZem CD (CARDIZEM CD, CARTIA XT) 120 mg 24 hr capsule Take 1 capsule by mouth once daily. atorvastatin (LIPITOR) 10 mg tablet Take 1 tablet by mouth once daily. famotidine (PEPCID) 40 mg tablet Take 1 tablet by mouth twice daily. dorzolamide-timolol (COSOPT) 22.3-6.8 mg/mL ophthalmic solution Use 1 Drop in both eyes twice daily. brimonidine (ALPHAGAN) 0.2 % ophthalmic solution gabapentin (NEURONTIN) 300 mg capsule Take 1 tablet morning and bedtime May take one tablet in afternoon as needed for pain Per Dr. Martinez (Patient taking differently: 1 tablet at night; Per Dr. Martinez) lidocaine (LIDODERM) 5 % Apply 1 Patch as directed every 12 hours. latanoprost (XALATAN) 0.005 % ophthalmic solution Use 1 Drop in both eyes once daily. vit C,O-Ls-lxbwl-lutein-zeaxan (PRESERVISION AREDS-2) 250-90-40-1 mg Take 1 tablet by mouth twice daily at 6AM and 9PM. BIOTIN ORAL Take 5,000 mg by mouth once daily. Cholecalciferol, Vitamin D3, 25 mcg (1,000 unit) cap Take 1,000 Units by mouth once daily. CYANOCOBALAMIN, VITAMIN B-12, (VITAMIN B-12 ORAL) Take 1,000 mg by mouth once daily. No current facility-administered medications for this visit. Medications and allergies reviewed by this provider. SOCIAL HISTORY Social History Tobacco Use Smoking status: Former Packs/day: 0.50 Years: 10.00 Additional pack years: 0.00 Total pack years: 5.00 Types: Cigarettes Quit date: 05/03/1988 Years since quittin.9 Smokeless tobacco: Never Substance Use Topics Alcohol use: No Drug use: No REVIEW OF SYSTEMS All other reviewed and negative other than HPI. OBJECTIVE: BP 138/84 Pulse 95 Temp 36.8 C (98.3 F) Resp 20 Wt 67.3 kg (148 lb 6.4 oz) SpO2 98% BMI 25.47 kg/m . Vital signs reviewed by this provider. APPEARANCE Well appearing, alert, in no acute distress, well-hydrated, well nourished. EYES conjunctiva and sclera normal. EARS External ears normal, canals clear THROAT normal, no erythema NECK Supple, no adenopathy; thyroid symmetric, normal size, no bruits HEART RRR with normal S1 and S2, no murmurs, no gallops, no JVD appreciated LUNG clear to auscultation. No wheezes, rhonchi or rales SKIN Skin color, texture, turgor normal, no suspicious rashes or lesions to exposed skin RSV Vaccine(1 - 1-dose 60+ series) Never done Advance Directive Discussion Never done Influenza Vaccine(1) due on 10/31/2023 Covid-19 Vaccine(4 - season) due on 02/09/2024 Diabetes Screening due on 02/23/2026 DTaP,Tdap,Td Vaccine(3 - Td or Tdap) due on 07/08/2031 Bone Density Screening Completed Depression Assessment Completed Shingrix Vaccine Completed Pneumococcal Vaccine: 65+ Completed ASSESSMENT/PLAN: 1. Acute cough - ICD9: 786.2, ICD10: R05.1 - no red flag symptoms or exam findings - red flag symptoms discussed, verbalizes understanding - recommend OTC mucinex for chest congestion and coricidin for cough - stay well hydrated with at least 60 ounces of water daily and use humidifier in bedroom - follow-up if symptoms fail to improve to ER with red flag symptoms Topher Colon APRN.QUALITY IMPROVEMENT COORDINATOR (RN) Prescription instructions reviewed with patient as applicable. Patient advised if symptoms do not improve or if symptoms worsen sooner, to contact their primary care physician. Potential red flag symptoms discussed with the patient. Reviewed appropriate action plan to take if red flag symptoms occur. Patient agreeable to treatment plan. I spent a total of 20 minutes on the date of the service which included preparing to see the patient, [id number] patient care, completing clinical documentation, obtaining and/or reviewing separately obtained history, performing a medically appropriate examination, and counseling and educating the patient/family/caregiver. documented in this encounter [facility] 03-18-2023 Miscellaneous Notes Patient returned call and went over notes below from Dr Soares with understanding. Patient said her blood pressure today at 10 am was 127/73, she had gotten herself all overly excited yesterday with the vaccine. Attempted calling patient and phone rang 2 x then call dropped. Attempted call back and line busy. Please attempt call back at later time. Possible reaction from her vaccine today. Agree with recommendations. Patient transferred to this nurse from [facility]. Patient concerned about a recent BP reading of 167/97 (82). Patient very worried it is too high. Reports no symptoms and states I feel fine. Patient denies CP, SOB, dizziness, numbness, no fever. Reports this morning BP was 113/63, yesterday BP 106/61. Reports she received an RSV vaccine today at [facility]. Reports she received a pneumonia vaccine 2 days ago in pcp office. Patient declined same day appt available at 6:20 pm today, stating she does not drive after dark. No other available appts today. Patient declined appt for tomorrow, b/c pcp had no openings, and patient doesn't want to see anyone else. Advised patient to check BP again this evening, and record it, and check BP again in the morning, and call in to report reading. Advised patient to ER if develops s/s with high BP: CP, SOB, dizziness, numbness. Patient agreeable. documented in this encounter [facility] 03-15-2023 Note HNO ID: [id number] Author: Tony Soares MD Service: ? Author Type: Physician Type: Progress Notes Filed: 03/21/2023 1:02 PM Note Text: Chief Complaint Patient presents with: Follow Up: 6 month HPI Patricia Hurley is a 82 year old female who presents here today for Above Complaints. No falls since last OV. BP in good range today on current regimen. Checking BP at home prior to taking her medication in the morning and has been getting readings in the 140-150's/90's. Discussed checking after taking medications instead. Denies hyper/hypotension symptoms. Glaucoma: compliant with eye drops as ordered. Occasionally gets blurred vision. F/u visit with Dr. Amaya's office in 1-2 weeks. PUD: Patient had f/u with Dr. Ng's office who recommended she obtain FOBT due to persistent dark stools. Recommended she cut her Protonix to daily from BID. Stools have lightened up. Denies BRBPR, epigastric pain, lightheadedness, SOB. Overactive bladder/incontinence. Asymptomatic without rx at this time. Requesting Prevnar 20 vaccine. Past medical history, appointments, medications, allergies reviewed. Previous Medical History PAST MEDICAL HISTORY Diagnosis Date Aortic stenosis moderate Basal cell carcinoma Cataracts, bilateral s/p removal Chronic urticaria seeing Dr. Card Concussion 05/2015 fell off step stool COVID-19 GERD (gastroesophageal reflux disease) with esophagitis on EGD Glaucoma Hamstring strain bilateral legs Heart murmur History of shingles 2015 Hyperlipidemia Hypertension Insomnia Macular degeneration Melanoma (HCC) Mitral regurgitation Dr. Ibarra Post herpetic neuralgia lidocaine patch Premature contractions, atrial PUD (peptic ulcer disease) 01/2023 Previous Surgical History PAST SURGICAL HISTORY Procedure Laterality Date APPENDECTOMY 1970 CATARACT EXTRACTION HX Bilateral 2012 CATARACT SURGERY, COMPLEX Bilateral R 10/2012-L 12/2012 CHOLECYSTECTOMY 2002 COLONOSCOPY 12/11/2015 10mm adenomatous polyp found, repeat in 3 years COLONOSCOPY FLX DX W/COLLJ SPEC WHEN PFRMD 02/15/2019 Colonoscopy. repeat in 5 years. EGD 12/11/2015 post gastric ulcer deformity noted in pre-pyloric region and antrum. ESOPHAGOGASTRODUODENOSCOPY TRANSORAL DIAGNOSTIC 02/15/2019 EGD HEMORRHOIDECTOMY 2010 MELANOMA OF SKIN BIOPSY SYN RPT Right 2007 PAST SURGICAL HISTORY OF laparoscopy of adhesions PAST SURGICAL HISTORY OF basal cell carcinoma removal REPAIR RECTOCELE SEPARATE PROCEDURE ROTATOR CUFF REPAIR Right 2007 TOTAL ABDOMINAL HYSTERECT W/WO RMVL TUBE OVARY 1972 Family History FAMILY HISTORY Problem Relation Age of Onset Hypertension Mother Hypertension Father Cancer Father pancreatic Patient Allergies ALLERGIES Allergen Reactions Oxycodone Itching Current Medications Current Outpatient Medications on File Prior to Visit Medication Sig losartan (COZAAR) 50 mg tablet Take 1 tablet by mouth once daily. dilTIAZem CD (CARDIZEM CD, CARTIA XT) 120 mg 24 hr capsule Take 1 capsule by mouth once daily. atorvastatin (LIPITOR) 10 mg tablet Take 1 tablet by mouth once daily. famotidine (PEPCID) 40 mg tablet Take 1 tablet by mouth twice daily. dorzolamide-timolol (COSOPT) 22.3-6.8 mg/mL ophthalmic solution Use 1 Drop in both eyes twice daily. brimonidine (ALPHAGAN) 0.2 % ophthalmic solution lidocaine (LIDODERM) 5 % Apply 1 Patch as directed every 12 hours. latanoprost (XALATAN) 0.005 % ophthalmic solution Use 1 Drop in both eyes once daily. vit C,C-Ki-afudm-lutein-zeaxan (PRESERVISION AREDS-2) 250-90-40-1 mg Take 1 tablet by mouth twice daily at 6AM and 9PM. BIOTIN ORAL Take 5,000 mg by mouth once daily. Cholecalciferol, Vitamin D3, 25 mcg (1,000 unit) cap Take 1,000 Units by mouth once daily. CYANOCOBALAMIN, VITAMIN B-12, (VITAMIN B-12 ORAL) Take 1,000 mg by mouth once daily. gabapentin (NEURONTIN) 300 mg capsule Take 1 tablet morning and bedtime May take one tablet in afternoon as needed for pain Per Dr. Martinez (Patient taking differently: 1 tablet at night; Per Dr. Martinez) No current facility-administered medications on file prior to visit. Social History Social History Tobacco Use Smoking status: Former Packs/day: 0.50 Years: 10.00 Additional pack years: 0.00 Total pack years: 5.00 Types: Cigarettes Quit date: 05/03/1988 Years since quittin.8 Smokeless tobacco: Never Substance Use Topics Alcohol use: No Drug use: No Review of Symptoms REVIEW OF SYSTEMS GENERAL: No weight loss, malaise or fevers RESPIRATORY: Negative for cough, hemoptysis, wheezing, COPD, dyspnea or shortness of breath CARDIOVASCULAR: Negative for chest pain, leg swelling, hypertension, CHF or palpitations GI: No nausea, vomiting, or diarrhea SKIN: Negative for lesions, rash, and itching EXAM: BP 118/74 Pulse 77 Resp 16 Wt 68.6 kg (151 lb 3.2 oz) SpO2 97% BMI 25.95 kg/m? G (more content not included)... [facility] 03-15-2023 Instructions Tony Soares MD - 03/15/2023 2:17 PM EST Please follow up with your pharmacy for your RSV vaccine. documented in this encounter [facility] 03-15-2023 History of Presen t illness Narrative Chief Complaint Patient presents with: Follow Up: 6 month HPI Patricia Hurley is a 82 year old female who presents here today for Above Complaints. No falls since last OV. BP in good range today on current regimen. Checking BP at home prior to taking her medication in the morning and has been getting readings in the 140-150's/90's. Discussed checking after taking medications instead. Denies hyper/hypotension symptoms. Glaucoma: compliant with eye drops as ordered. Occasionally gets blurred vision. F/u visit with Dr. Amaya's office in 1-2 weeks. PUD: Patient had f/u with Dr. Ng's office who recommended she obtain FOBT due to persistent dark stools. Recommended she cut her Protonix to daily from BID. Stools have lightened up. Denies BRBPR, epigastric pain, lightheadedness, SOB. Overactive bladder/incontinence. Asymptomatic without rx at this time. Requesting Prevnar 20 vaccine. Past medical history, appointments, medications, allergies reviewed. Previous Medical History PAST MEDICAL HISTORY Diagnosis Date Aortic stenosis moderate Basal cell carcinoma Cataracts, bilateral s/p removal Chronic urticaria seeing Dr. Card Concussion 05/2015 fell off step stool COVID-19 GERD (gastroesophageal reflux disease) with esophagitis on EGD Glaucoma Hamstring strain bilateral legs Heart murmur History of shingles 2015 Hyperlipidemia Hypertension Insomnia Macular degeneration Melanoma (HCC) Mitral regurgitation Dr. Ibarra Post herpetic neuralgia lidocaine patch Premature contractions, atrial PUD (peptic ulcer disease) 01/2023 Previous Surgical History PAST SURGICAL HISTORY Procedure Laterality Date APPENDECTOMY 1970 CATARACT EXTRACTION HX Bilateral 2012 CATARACT SURGERY, COMPLEX Bilateral R 10/2012-L 12/2012 CHOLECYSTECTOMY 2002 COLONOSCOPY 12/11/2015 10mm adenomatous polyp found, repeat in 3 years COLONOSCOPY FLX DX W/COLLJ SPEC WHEN PFRMD 02/15/2019 Colonoscopy. repeat in 5 years. EGD 12/11/2015 post gastric ulcer deformity noted in pre-pyloric region and antrum. ESOPHAGOGASTRODUODENOSCOPY TRANSORAL DIAGNOSTIC 02/15/2019 EGD HEMORRHOIDECTOMY 2010 MELANOMA OF SKIN BIOPSY SYN RPT Right 2007 PAST SURGICAL HISTORY OF laparoscopy of adhesions PAST SURGICAL HISTORY OF basal cell carcinoma removal REPAIR RECTOCELE SEPARATE PROCEDURE ROTATOR CUFF REPAIR Right 2008 TOTAL ABDOMINAL HYSTERECT W/WO RMVL TUBE OVARY 1972 Family History FAMILY HISTORY Problem Relation Age of Onset Hypertension Mother Hypertension Father Cancer Father pancreatic Patient Allergies ALLERGIES Allergen Reactions Oxycodone Itching Current Medications Current Outpatient Medications on File Prior to Visit Medication Sig losartan (COZAAR) 50 mg tablet Take 1 tablet by mouth once daily. dilTIAZem CD (CARDIZEM CD, CARTIA XT) 120 mg 24 hr capsule Take 1 capsule by mouth once daily. atorvastatin (LIPITOR) 10 mg tablet Take 1 tablet by mouth once daily. famotidine (PEPCID) 40 mg tablet Take 1 tablet by mouth twice daily. dorzolamide-timolol (COSOPT) 22.3-6.8 mg/mL ophthalmic solution Use 1 Drop in both eyes twice daily. brimonidine (ALPHAGAN) 0.2 % ophthalmic solution lidocaine (LIDODERM) 5 % Apply 1 Patch as directed every 12 hours. latanoprost (XALATAN) 0.005 % ophthalmic solution Use 1 Drop in both eyes once daily. vit C,Q-Ql-jclew-lutein-zeaxan (PRESERVISION AREDS-2) 250-90-40-1 mg Take 1 tablet by mouth twice daily at 6AM and 9PM. BIOTIN ORAL Take 5,000 mg by mouth once daily. Cholecalciferol, Vitamin D3, 25 mcg (1,000 unit) cap Take 1,000 Units by mouth once daily. CYANOCOBALAMIN, VITAMIN B-12, (VITAMIN B-12 ORAL) Take 1,000 mg by mouth once daily. gabapentin (NEURONTIN) 300 mg capsule Take 1 tablet morning and bedtime May take one tablet in afternoon as needed for pain Per Dr. Martinez (Patient taking differently: 1 tablet at night; Per Dr. Martinez) No current facility-administered medications on file prior to visit. Social History Social History Tobacco Use Smoking status: Former Packs/day: 0.50 Years: 10.00 Additional pack years: 0.00 Total pack years: 5.00 Types: Cigarettes Quit date: 05/03/1988 Years since quittin.8 Smokeless tobacco: Never Substance Use Topics Alcohol use: No Drug use: No Review of Symptoms REVIEW OF SYSTEMS GENERAL: No weight loss, malaise or fevers RESPIRATORY: Negative for cough, hemoptysis, wheezing, COPD, dyspnea or shortness of breath CARDIOVASCULAR: Negative for chest pain, leg swelling, hypertension, CHF or palpitations GI: No nausea, vomiting, or diarrhea SKIN: Negative for lesions, rash, and itching EXAM: BP 118/74 Pulse 77 Resp 16 Wt 68.6 kg (151 lb 3.2 oz) SpO2 97% BMI 25.95 kg/m General Appearance: Well appearing, alert, in no acute distress, well-hydrated, well nourished.. Skin: Skin color, texture, turgor normal, no suspicious rashes or lesions. Lungs: Lungs clear to auscultation. No wheezing, rhonchi, rales.. Heart: Heart: RRR with 3/6 YUDELKA without rub or gallops. Abdomen: Normal abdominal exam, Abdomen soft, non-tender. Bowel sounds normal. No masses, organomegaly. Extremities: No deformities, edema, skin discoloration, clubbing or cyanosis. Good capillary refill. . Health Maintenance List RSV Vaccine(1 - 1-dose 60+ series) Never done Pneumococcal Vaccine: 65+(2 - PCV) due on 12/08/2009 Advance Directive Discussion Never done Influenza Vaccine(1) due on 10/31/2023 Covid-19 Vaccine(4 - 2022- season) due on 02/09/2024 Diabetes Screening due on 02/23/2026 DTaP,Tdap,Td Vaccine(3 - Td or Tdap) due on 07/08/2031 Bone Density Screening Completed Depression Assessment Completed Shingrix Vaccine Completed Data reviewed Component Latest Ref Rng & Units 09/04/2022 02/23/2023 WBC 3.70 - 11.00 k/uL 5.81 RBC 3.90 - 5.20 m/uL 4.40 Hemoglobin 11.5 - 15.5 g/dL 13.4 Hematocrit 36.0 - 46.0 % 43.8 MCV 80.0 - 100.0 fL 99.5 MCH 26.0 - 34.0 pg 30.5 MCHC 30.5 - 36.0 g/dL 30.6 RDW-CV 11.5 - 15.0 % 14.0 Platelet Count 150 - 400 k/uL 262 MPV 9.0 - 12.7 fL 9.9 Neut% % 62.7 Abs Neut (ANC) 1.45 - 7.50 k/uL 3.65 Lymph% % 24.3 Abs Lymph 1.00 - 4.00 k/uL 1.41 [place]% % 10.5 Abs [place] <0.87 k/uL 0.61 Eosin% % 0.9 Abs Eosin <0.46 k/uL 0.05 Baso% % 1.4 Abs Baso <0.11 k/uL 0.08 Immature Gran % % 0.2 IMMATURE GRANS (ABS) <0.10 k/uL <0.03 NRBC /100 WBC 0.0 Absolute nRBC <0.01 k/uL <0.01 DTYPE Auto Protein, Total 6.3 - 8.0 g/dL 6.2 (L) 6.4 Albumin 3.9 - 4.9 g/dL 3.6 (L) 4.0 Calcium 8.5 - 10.2 mg/dL 9.2 8.7 Bilirubin, Total 0.2 - 1.3 mg/dL 0.4 0.4 Alkaline Phosphatase 34 - 123 U/L 84 79 AST 13 - 35 U/L 19 16 ALT 7 - 38 U/L 21 17 Glucose 74 - 99 mg/dL 86 103 (H) BUN 7 - 21 mg/dL 16 12 Creatinine 0.58 - 0.96 mg/dL 1.10 (H) 0.96 Sodium 136 - 144 mmol/L 141 142 Potassium 3.7 - 5.1 mmol/L 3.8 4.0 Chloride 97 - 105 mmol/L 105 107 (H) CO2 22 - 30 mmol/L 24 25 Anion Gap 9 - 18 mmol/L 12 10 eGFR >=60 mL/min/1.73m 50 (L) 59 (L) Iron 41 - 186 ug/dL 52 TIBC 232 - 386 ug/dL 330 Transferrin Saturation 15.0 - 57.0 % 15.8 Ferritin 14.7 - 205.1 ng/mL 49.0 ASSESSMENT/PLAN: 1. Primary hypertension - ICD9: 401.9, ICD10: I10 (primary diagnosis) - Controlled - Continue current medications - Recommend home blood pressure monitoring, to bring results to next visit - Encouraged sodium restriction, DASH or Mediterranean diet - Recommend regular aerobic exercise 2. Hyperlipidemia, unspecified hyperlipidemia type - ICD9: 272.4, ICD10: E78.5 - Controlled - Continue current medications - Counseled on healthy diet and regular exercise 3. OAB (overactive bladder) - ICD9: 596.51, ICD10: N32.81 Asymptomatic. 4. Mixed urge and stress incontinence - ICD9: 788.33, ICD10: N39.46 Asymptomatic 5. Gastroesophageal reflux disease with esophagitis, unspecified whether hemorrhage - ICD9: 530.11, ICD10: K21.00 - Discussed lifestyle modifications including losing weight, limiting caffeine, and no meals three hours before sleep - Continue treatment with Protonix and pepcid 6. Nonrheumatic aortic valve stenosis - ICD9: 424.1, ICD10: I35.0 Stable. 7. Bilateral carotid artery stenosis - ICD9: 433.10, 433.30, ICD10: I65.23 Mild on US in 2020. No change compared to 2018. Patient not interested in repeat US at this time. 8. Encounter for immunization - ICD9: V03.89, ICD10: Z23 - PNEUMOCOCCAL VACCINE (PREVNAR 20) Tony Soares MD documented in this encounter [facility] 03-05-2023 Note HNO ID: [id number] Author: Topher Colon APRN.QUALITY IMPROVEMENT COORDINATOR (RN) Service: ? Author Type: Nurse Practitioner Type: Progress Notes Filed: 03/05/2023 6:52 PM Note Text: 03/05/2023 Patient presents with: Blood Pressure Check SUBJECTIVE: This is a 82 year old that is here today for Above Complaints. Patient reports she has had elevated BP reading the last three days 177-196/73-99, pulse 63-96. She reports she has been taking the reduced amount of losartan and taking her diltiazem CD as prescribed. Had headache yesterday. Feeling better today. She reports she has been following Dr. Soares's instruction regarding her BP readings in the morning. She has brought her BP cuff with her today to validate. She reports BP this AM was 177/73. In office right now she is 140/68 and her home BP cuff is 148/72. Denies visual changes, headaches, lightheadedness, dizziness, slurred speech, facial drooping, SOB, dyspnea, chest pain, palpitations, leg edema, extremity numbness, tingling or weakness. PAST MEDICAL HISTORY Diagnosis Date Aortic stenosis moderate Basal cell carcinoma Cataracts, bilateral s/p removal Chronic urticaria seeing Dr. Card Concussion 05/2015 fell off step stool COVID-19 GERD (gastroesophageal reflux disease) with esophagitis on EGD Glaucoma Hamstring strain bilateral legs Heart murmur History of shingles 2015 Hyperlipidemia Hypertension Insomnia Macular degeneration Melanoma (HCC) Mitral regurgitation Dr. Ibarra Post herpetic neuralgia lidocaine patch Premature contractions, atrial PUD (peptic ulcer disease) 01/2023 ALLERGIES Oxycodone MEDICATIONS Current Outpatient Medications Medication Sig losartan (COZAAR) 50 mg tablet Take 0.5 tablets by mouth once daily. Doxepin 3 mg tab Take 1 tablet by mouth daily at bedtime. dilTIAZem CD (CARDIZEM CD, CARTIA XT) 120 mg 24 hr capsule Take 1 capsule by mouth once daily. atorvastatin (LIPITOR) 10 mg tablet Take 1 tablet by mouth once daily. famotidine (PEPCID) 40 mg tablet Take 1 tablet by mouth twice daily. dorzolamide-timolol (COSOPT) 22.3-6.8 mg/mL ophthalmic solution Use 1 Drop in both eyes twice daily. brimonidine (ALPHAGAN) 0.2 % ophthalmic solution gabapentin (NEURONTIN) 300 mg capsule Take 1 tablet morning and bedtime May take one tablet in afternoon as needed for pain Per Dr. Martinez (Patient taking differently: 1 tablet at night; Per Dr. Martinez) lidocaine (LIDODERM) 5 % Apply 1 Patch as directed every 12 hours. latanoprost (XALATAN) 0.005 % ophthalmic solution Use 1 Drop in both eyes once daily. vit C,B-Nk-auglf-lutein-zeaxan (PRESERVISION AREDS-2) 250-90-40-1 mg Take 1 tablet by mouth twice daily at 6AM and 9PM. BIOTIN ORAL Take 5,000 mg by mouth once daily. Cholecalciferol, Vitamin D3, 25 mcg (1,000 unit) cap Take 1,000 Units by mouth once daily. CYANOCOBALAMIN, VITAMIN B-12, (VITAMIN B-12 ORAL) Take 1,000 mg by mouth once daily. No current facility-administered medications for this visit. Medications and allergies reviewed by this provider. SOCIAL HISTORY Social History Tobacco Use Smoking status: Former Packs/day: 0.50 Years: 10.00 Additional pack years: 0.00 Total pack years: 5.00 Types: Cigarettes Quit date: 05/03/1988 Years since quittin.8 Smokeless tobacco: Never Substance Use Topics Alcohol use: No Drug use: No REVIEW OF SYSTEMS All other reviewed and negative other than HPI. OBJECTIVE: BP 140/68 Pulse 64 Resp 16 Wt 67.5 kg (148 lb 12.8 oz) SpO2 98% BMI 25.54 kg/m? . Vital signs reviewed by this provider. APPEARANCE Well appearing, alert, in no acute distress, well-hydrated, well nourished. EYES PERRLA, conjunctiva and sclera normal. EARS External ears normal, canals clear HEART RRR with normal S1 and S2, no murmurs, no gallops, no JVD appreciated LUNG clear to auscultation. No wheezes, rhonchi or rales EXTREMITIES Extremities normal, No deformities, No skin discoloration, and No edema NEURO Awake, alert and oriented x 3, Cranial nerves II-XII grossly intact, Reflexes symmetrical, Normal gait, No involuntary motions., and negative findings: speech normal, mental status intact, cranial nerves 2-12 intact, gait, including heel, toe, and tandem walking normal, Romberg negative, muscle tone normal, muscle strength normal, rapid alternating movements normal, finger to nose normal, reflexes normal and symmetric, plantar response downgoing bilaterally SKIN Skin color, texture, turgor normal, no suspicious rashes or lesions to exposed skin RSV Vaccine(1 - 1-dose 60+ series) Never done Pneumococcal Vaccine: 65+(2 - PCV) due on 12/08/2009 Advance Directive Discussion Never done Influenza Vaccine(1) due on 10/31/2023 Covid-19 Vaccine( - 2022- season) due on 02/09/2024 Diabetes Screening due on 02/23/2026 DTaP,Tdap,Td Vaccine(3 - Td or Tdap) due on 07/08/2031 Bone Density Screening Completed Depression Assess (more content not included)... [facility] 03-05-2023 History of Presen t illness Narrative 03/05/2023 Patient presents with: Blood Pressure Check SUBJECTIVE: This is a 82 year old that is here today for Above Complaints. Patient reports she has had elevated BP reading the last three days 177-196/73-99, pulse 63-96. She reports she has been taking the reduced amount of losartan and taking her diltiazem CD as prescribed. Had headache yesterday. Feeling better today. She reports she has been following Dr. Soares's instruction regarding her BP readings in the morning. She has brought her BP cuff with her today to validate. She reports BP this AM was 177/73. In office right now she is 140/68 and her home BP cuff is 148/72. Denies visual changes, headaches, lightheadedness, dizziness, slurred speech, facial drooping, SOB, dyspnea, chest pain, palpitations, leg edema, extremity numbness, tingling or weakness. PAST MEDICAL HISTORY Diagnosis Date Aortic stenosis moderate Basal cell carcinoma Cataracts, bilateral s/p removal Chronic urticaria seeing Dr. Card Concussion 05/2015 fell off step stool COVID-19 GERD (gastroesophageal reflux disease) with esophagitis on EGD Glaucoma Hamstring strain bilateral legs Heart murmur History of shingles 2015 Hyperlipidemia Hypertension Insomnia Macular degeneration Melanoma (HCC) Mitral regurgitation Dr. Ibarra Post herpetic neuralgia lidocaine patch Premature contractions, atrial PUD (peptic ulcer disease) 01/2023 ALLERGIES Oxycodone MEDICATIONS Current Outpatient Medications Medication Sig losartan (COZAAR) 50 mg tablet Take 0.5 tablets by mouth once daily. Doxepin 3 mg tab Take 1 tablet by mouth daily at bedtime. dilTIAZem CD (CARDIZEM CD, CARTIA XT) 120 mg 24 hr capsule Take 1 capsule by mouth once daily. atorvastatin (LIPITOR) 10 mg tablet Take 1 tablet by mouth once daily. famotidine (PEPCID) 40 mg tablet Take 1 tablet by mouth twice daily. dorzolamide-timolol (COSOPT) 22.3-6.8 mg/mL ophthalmic solution Use 1 Drop in both eyes twice daily. brimonidine (ALPHAGAN) 0.2 % ophthalmic solution gabapentin (NEURONTIN) 300 mg capsule Take 1 tablet morning and bedtime May take one tablet in afternoon as needed for pain Per Dr. Martinez (Patient taking differently: 1 tablet at night; Per Dr. Martinez) lidocaine (LIDODERM) 5 % Apply 1 Patch as directed every 12 hours. latanoprost (XALATAN) 0.005 % ophthalmic solution Use 1 Drop in both eyes once daily. vit C,U-Qw-xafvm-lutein-zeaxan (PRESERVISION AREDS-2) 250-90-40-1 mg Take 1 tablet by mouth twice daily at 6AM and 9PM. BIOTIN ORAL Take 5,000 mg by mouth once daily. Cholecalciferol, Vitamin D3, 25 mcg (1,000 unit) cap Take 1,000 Units by mouth once daily. CYANOCOBALAMIN, VITAMIN B-12, (VITAMIN B-12 ORAL) Take 1,000 mg by mouth once daily. No current facility-administered medications for this visit. Medications and allergies reviewed by this provider. SOCIAL HISTORY Social History Tobacco Use Smoking status: Former Packs/day: 0.50 Years: 10.00 Additional pack years: 0.00 Total pack years: 5.00 Types: Cigarettes Quit date: 05/03/1988 Years since quittin.8 Smokeless tobacco: Never Substance Use Topics Alcohol use: No Drug use: No REVIEW OF SYSTEMS All other reviewed and negative other than HPI. OBJECTIVE: BP 140/68 Pulse 64 Resp 16 Wt 67.5 kg (148 lb 12.8 oz) SpO2 98% BMI 25.54 kg/m . Vital signs reviewed by this provider. APPEARANCE Well appearing, alert, in no acute distress, well-hydrated, well nourished. EYES PERRLA, conjunctiva and sclera normal. EARS External ears normal, canals clear HEART RRR with normal S1 and S2, no murmurs, no gallops, no JVD appreciated LUNG clear to auscultation. No wheezes, rhonchi or rales EXTREMITIES Extremities normal, No deformities, No skin discoloration, and No edema NEURO Awake, alert and oriented x 3, Cranial nerves II-XII grossly intact, Reflexes symmetrical, Normal gait, No involuntary motions., and negative findings: speech normal, mental status intact, cranial nerves 2-12 intact, gait, including heel, toe, and tandem walking normal, Romberg negative, muscle tone normal, muscle strength normal, rapid alternating movements normal, finger to nose normal, reflexes normal and symmetric, plantar response downgoing bilaterally SKIN Skin color, texture, turgor normal, no suspicious rashes or lesions to exposed skin RSV Vaccine(1 - 1-dose 60+ series) Never done Pneumococcal Vaccine: 65+(2 - PCV) due on 12/08/2009 Advance Directive Discussion Never done Influenza Vaccine(1) due on 10/31/2023 Covid-19 Vaccine( season) due on 02/09/2024 Diabetes Screening due on 02/23/2026 DTaP,Tdap,Td Vaccine(3 - Td or Tdap) due on 07/08/2031 Bone Density Screening Completed Depression Assessment Completed Shingrix Vaccine Completed ASSESSMENT/PLAN: 1. Primary hypertension - ICD9: 401.9, ICD10: I10 - unfortunately when patient was seen for her appointment today I did not have access to her chart due to Internet being down - I discussed with her if BP elevated this weekend she may take other half of her losartan - she will monitor BP over the weekend and update me Wednesday with her readings - discussed red flag symptoms of elevated BP, she verbalizes understanding - she was able to tell me the appropriate way to measure her home blood pressure - she should continue to follow Dr. Soares's instructions if her BP is low - Controlled - Continue current medications - Recommend home blood pressure monitoring, to bring results to next visit - Encouraged sodium restriction, DASH or Mediterranean diet - Recommend regular aerobic exercise Topher Colon APRN.CNP Prescription instructions reviewed with patient as applicable. Patient advised if symptoms do not improve or if symptoms worsen sooner, to contact their primary care physician. Potential red flag symptoms discussed with the patient. Reviewed appropriate action plan to take if red flag symptoms occur. Patient agreeable to treatment plan. I spent a total of 25 minutes on the date of the service which included preparing to see the patient, [id number] patient care, completing clinical documentation, obtaining and/or reviewing separately obtained history, performing a medically appropriate examination, and counseling and educating the patient/family/caregiver. documented in this encounter [facility] 03-05-2023 Miscellaneous Notes Pt states she has her BP cuff with her. Please have patient bring her home blood pressure cuff to appointment today. Topher Colon APRN.CNP documented in this encounter [facility] 02-24-2023 Miscellaneous Notes Patient returned call and went over results, notes from Dr Soares with understanding. Message left for patient to call office back for update. Lillie Hu LPN ----- Message from Tony Soares MD sent at 02/24/2023 8:02 AM EDT ----- Labs are stable/unremarkable. Iron levels normal. No anemia. No changes to regimen. documented in this encounter [facility] 02-23-2023 Note HNO ID: [id number] Author: Tony Soares MD Service: ? Author Type: Physician Type: Progress Notes Filed: 02/23/2023 2:02 PM Note Text: Chief Complaint Patient presents with: Blood Pressure: Follow up/recheck HPI Patricia Hurley is a 82 year old female who presents here today for Above Complaints.. Patient with hypotension on 75 mg of losartan at last OV. Dose reduced to 25 mg daily. Since then, patient had a few higher readings while she was checking her BP 4 or more times per day. Now only checking 1-2 times per day and BP has been normal. Denies hyper/hypothyroidism symptoms. Also notes she was diagnosed with PUD by Dr. Ng. EGD on 02/17 showed ulcer which was cauterized. Started on Protonix BID which she is taking as prescribed. Admits to melena without hematochezia still. Denies abdominal pain, SOB, lightheadedness, syncope. Has f/u in a couple weeks with their office. Requesting labs today. Past medical history, appointments, medications, allergies reviewed. Previous Medical History PAST MEDICAL HISTORY Diagnosis Date Aortic stenosis moderate Basal cell carcinoma Cataracts, bilateral s/p removal Chronic urticaria seeing Dr. Card Concussion 05/2015 fell off step stool COVID-19 GERD (gastroesophageal reflux disease) with esophagitis on EGD Glaucoma Hamstring strain bilateral legs Heart murmur History of shingles 2016 Hyperlipidemia Hypertension Insomnia Macular degeneration Melanoma (HCC) Mitral regurgitation Dr. Ibarra Post herpetic neuralgia lidocaine patch Premature contractions, atrial Previous Surgical History PAST SURGICAL HISTORY Procedure Laterality Date APPENDECTOMY 1970 CATARACT EXTRACTION HX Bilateral 2012 CATARACT SURGERY, COMPLEX Bilateral R 10/2012-L 12/2012 CHOLECYSTECTOMY 2002 COLONOSCOPY 12/11/2015 10mm adenomatous polyp found, repeat in 3 years COLONOSCOPY FLX DX W/COLLJ SPEC WHEN PFRMD 02/15/2019 Colonoscopy. repeat in 5 years. EGD 12/11/2015 post gastric ulcer deformity noted in pre-pyloric region and antrum. ESOPHAGOGASTRODUODENOSCOPY TRANSORAL DIAGNOSTIC 02/15/2019 EGD HEMORRHOIDECTOMY 2009 MELANOMA OF SKIN BIOPSY SYN RPT Right 2007 PAST SURGICAL HISTORY OF laparoscopy of adhesions PAST SURGICAL HISTORY OF basal cell carcinoma removal REPAIR RECTOCELE SEPARATE PROCEDURE ROTATOR CUFF REPAIR Right 2007 TOTAL ABDOMINAL HYSTERECT W/WO RMVL TUBE OVARY 1972 Family History FAMILY HISTORY Problem Relation Age of Onset Hypertension Mother Hypertension Father Cancer Father pancreatic Patient Allergies ALLERGIES Allergen Reactions Oxycodone Itching Current Medications Current Outpatient Medications on File Prior to Visit Medication Sig losartan (COZAAR) 50 mg tablet Take 0.5 tablets by mouth once daily. Doxepin 3 mg tab Take 1 tablet by mouth daily at bedtime. dilTIAZem CD (CARDIZEM CD, CARTIA XT) 120 mg 24 hr capsule Take 1 capsule by mouth once daily. atorvastatin (LIPITOR) 10 mg tablet Take 1 tablet by mouth once daily. famotidine (PEPCID) 40 mg tablet Take 1 tablet by mouth twice daily. dorzolamide-timolol (COSOPT) 22.3-6.8 mg/mL ophthalmic solution Use 1 Drop in both eyes twice daily. brimonidine (ALPHAGAN) 0.2 % ophthalmic solution lidocaine (LIDODERM) 5 % Apply 1 Patch as directed every 12 hours. latanoprost (XALATAN) 0.005 % ophthalmic solution Use 1 Drop in both eyes once daily. vit C,E-Wp-xufij-lutein-zeaxan (PRESERVISION AREDS-2) 250-90-40-1 mg Take 1 tablet by mouth twice daily at 6AM and 9PM. BIOTIN ORAL Take 5,000 mg by mouth once daily. Cholecalciferol, Vitamin D3, 25 mcg (1,000 unit) cap Take 1,000 Units by mouth once daily. CYANOCOBALAMIN, VITAMIN B-12, (VITAMIN B-12 ORAL) Take 1,000 mg by mouth once daily. gabapentin (NEURONTIN) 300 mg capsule Take 1 tablet morning and bedtime May take one tablet in afternoon as needed for pain Per Dr. Martinez (Patient taking differently: 1 tablet at night; Per Dr. Martinez) No current facility-administered medications on file prior to visit. Social History Social History Tobacco Use Smoking status: Former Packs/day: 0.50 Years: 10.00 Additional pack years: 0.00 Total pack years: 5.00 Types: Cigarettes Quit date: 05/03/1988 Years since quittin.8 Smokeless tobacco: Never Substance Use Topics Alcohol use: No Drug use: No Review of Symptoms REVIEW OF SYSTEMS GENERAL: No weight loss, malaise or fevers RESPIRATORY: Negative for cough, hemoptysis, wheezing, COPD, dyspnea or shortness of breath CARDIOVASCULAR: Negative for chest pain, leg swelling, hypertension, CHF or palpitations SKIN: Negative for lesions, rash, and itching EXAM: BP 124/60 Pulse 62 Resp 16 SpO2 95% General Appearance: Well appearing, alert, in no acute distress, well-hydrated, well nourished.. Skin: Skin color, texture, turgor normal, no suspicious rashes or lesions. Lungs: Xenia (more content not included)... [facility] 02-18-2023 Miscellaneous Notes Pt calling in very upset and concerned over BP readings. Pt took BP when she woke up this morning at 0800 and it was 180/90 so she took both her Losartan and Diltiazem. Repeated BP at 1000 and it was 100/60. Then at 1045 it was 101/30. and at 1109 it was 138/117. Pt seemed to be very confused on times and readings but feel it is because pt is so upset. Talked with pt and then had her repeat BP while she was on the phone with nurse. BP was 146/64. Reassured pt that her BP is very good and to ignore the previous readings as her being so upset may have made her BP higher. Pt was so concerned and upset about her readings that she called and set up an appt with Dr. Soares for tomorrow. Pt's 2 wk f/u is scheduled for next Wednesday the . Reading through the telephone encounters over the last several days, found the following instructions for the pt from Dr. Soares: I would have her start checking BP upon awakening. If BP is <100/60 in the morning, should hold her losartan that day and repeat BP after lunch. If above 100/60, take losartan as directed. Try to drink at least 60 oz of water daily. Call if persistently <100/60 or >150/90. Read these instructions to the patient and had her write them down and read them back to the nurse. Instructed pt to only check her BP on waking up and after lunch unless she is symptomatic with headache or visual problems or not feeling well.. Pt states she feels absolutely fine right now and much calmer after our discussion. At this time, pt seems to understand when to take her BP and how to take her medications. Appt cancelled for tomorrow and pt to bring her 2 BP readings per day and her BP monitor to her appt on Wednesday. Pt verbalizes understanding. documented in this encounter [facility] 02-17-2023 Miscellaneous Notes Call placed to patient and reviewed instructions several times. Patient wrote instructions down and was able to repeat them back correctly. Anaya Miller RN BP this morning was >100/60, so should have taken her losartan as well. Continue to check at home and call if consistently >140/90. Pt wanted to report blood pressures from today. 5am 162/88 pt took diltiazem, held losartan. 6:16am 133/77. Pt went to [facility] to have endoscopy & BP there was 137/? Pt doesn't remember what the diastolic was. Today after lunch (20 mins before calling) BP was 168/73, pt states she will take losartan. Pt states she feels great! Instructions from pcp from phone note yesterday gone over again with pt. Beatriz Allison LPN documented in this encounter [facility] 02-16-2023 Miscellaneous Notes Phoned patient and went over notes below from Dr Soares several times with patient, had her write it down and repeat to me, she said she understood. Advised to write down bp readings and make sure she brings them to her appt next week also. I would have her start checking BP upon awakening. If BP is <100/60 in the morning, should hold her losartan that day and repeat BP after lunch. If above 100/60, take losartan as directed. Try to drink at least 60 oz of water daily. Call if persistently <100/60 or >150/90. Patient calling said her blood pressure today was really low. Patient took her medications at 1030 am and then checked her bp was 96/53. She had not checked it again. She was calling because she was out shopping and felt very tired. Asked patient to check her bp at 311 pm was 168/83 pulse 70. But she was going back and forth getting her medications to tell what she is taking, Losartan 50 mg one half tablet and Diltiazem CD 120 mg one daily. Asked patient if she has been checking her bp daily. Patient said checked it on 02/10 was 96/57 , on 02/11 119/60, on 02/12 was 123/68, on 02/13 was 101/50, on 02/14 was 142/81, on 02/15 was 100/68. Patient said she was told to sit for 5 minutes then check her bp. Patient said she is trying to drink enough fluids daily. Patient has appt 02/23 with PCP for 2 week bp check. documented in this encounter [facility] 02-08-2023 Note HNO ID: [id number] Author: Tony Soares MD Service: ? Author Type: Physician Type: Progress Notes Filed: 02/08/2023 1:12 PM Note Text: Chief Complaint Patient presents with: Blood Pressure: BP has been elevated HPI Patricia Hurley is a 82 year old female who presents here today for Above Complaints. HTN: Ms. Hurley indicates that she is feeling well and denies any symptoms referable to elevated blood pressure. Specifically denies headache, chest pain, palpitations, dyspnea, and peripheral edema. Patient denies any side effects of her medication(s) and is compliant with their regimen. She does check BP's away from this office with BP's in the 87/54-183/77 range. Patricia denies regular aerobic exercise. She watches her diet for sodium, low fat and low cholesterol most of the time. Last 3 Encounter BP Readings: Date: BP: 02/08/2023 104/60 10/14/2022 130/68 09/07/2022 136/78 Past medical history, appointments, medications, allergies reviewed. Previous Medical History PAST MEDICAL HISTORY Diagnosis Date Aortic stenosis moderate Basal cell carcinoma Cataracts, bilateral s/p removal Chronic urticaria seeing Dr. Card Concussion 05/2015 fell off step stool COVID-19 GERD (gastroesophageal reflux disease) with esophagitis on EGD Glaucoma Hamstring strain bilateral legs Heart murmur History of shingles 2016 Hyperlipidemia Hypertension Insomnia Macular degeneration Melanoma (HCC) Mitral regurgitation Dr. Ibarra Post herpetic neuralgia lidocaine patch Premature contractions, atrial Previous Surgical History PAST SURGICAL HISTORY Procedure Laterality Date APPENDECTOMY 1970 CATARACT EXTRACTION HX Bilateral 2012 CATARACT SURGERY, COMPLEX Bilateral R 10/2012-L 12/2012 CHOLECYSTECTOMY 2002 COLONOSCOPY 12/11/2015 10mm adenomatous polyp found, repeat in 3 years COLONOSCOPY FLX DX W/COLLJ SPEC WHEN PFRMD 02/15/2019 Colonoscopy. repeat in 5 years. EGD 12/11/2015 post gastric ulcer deformity noted in pre-pyloric region and antrum. ESOPHAGOGASTRODUODENOSCOPY TRANSORAL DIAGNOSTIC 02/15/2019 EGD HEMORRHOIDECTOMY 2010 MELANOMA OF SKIN BIOPSY SYN RPT Right 2008 PAST SURGICAL HISTORY OF laparoscopy of adhesions PAST SURGICAL HISTORY OF basal cell carcinoma removal REPAIR RECTOCELE SEPARATE PROCEDURE ROTATOR CUFF REPAIR Right 2007 TOTAL ABDOMINAL HYSTERECT W/WO RMVL TUBE OVARY 1972 Family History FAMILY HISTORY Problem Relation Age of Onset Hypertension Mother Hypertension Father Cancer Father pancreatic Patient Allergies ALLERGIES Allergen Reactions Oxycodone Itching Current Medications Current Outpatient Medications on File Prior to Visit Medication Sig Doxepin 3 mg tab Take 1 tablet by mouth daily at bedtime. losartan (COZAAR) 50 mg tablet Take 1.5 tablets by mouth once daily. (Patient taking differently: Take 50 mg by mouth once daily.) dilTIAZem CD (CARDIZEM CD, CARTIA XT) 120 mg 24 hr capsule Take 1 capsule by mouth once daily. atorvastatin (LIPITOR) 10 mg tablet Take 1 tablet by mouth once daily. famotidine (PEPCID) 40 mg tablet Take 1 tablet by mouth twice daily. dorzolamide-timolol (COSOPT) 22.3-6.8 mg/mL ophthalmic solution Use 1 Drop in both eyes twice daily. brimonidine (ALPHAGAN) 0.2 % ophthalmic solution lidocaine (LIDODERM) 5 % Apply 1 Patch as directed every 12 hours. latanoprost (XALATAN) 0.005 % ophthalmic solution Use 1 Drop in both eyes once daily. vit C,G-Pf-yxfkx-lutein-zeaxan (PRESERVISION AREDS-2) 250-90-40-1 mg Take 1 tablet by mouth twice daily at 6AM and 9PM. BIOTIN ORAL Take 5,000 mg by mouth once daily. Cholecalciferol, Vitamin D3, 25 mcg (1,000 unit) cap Take 1,000 Units by mouth once daily. CYANOCOBALAMIN, VITAMIN B-12, (VITAMIN B-12 ORAL) Take 1,000 mg by mouth once daily. gabapentin (NEURONTIN) 300 mg capsule Take 1 tablet morning and bedtime May take one tablet in afternoon as needed for pain Per Dr. Martinez (Patient taking differently: 1 tablet at night; Per Dr. Martinez) No current facility-administered medications on file prior to visit. Social History Social History Tobacco Use Smoking status: Former Packs/day: 0.50 Years: 10.00 Additional pack years: 0.00 Total pack years: 5.00 Types: Cigarettes Quit date: 05/03/1988 Years since quittin.7 Smokeless tobacco: Never Substance Use Topics Alcohol use: No Drug use: No Review of Symptoms REVIEW OF SYSTEMS GENERAL: No weight loss, malaise or fevers RESPIRATORY: Negative for cough, hemoptysis, wheezing, COPD, dyspnea or shortness of breath CARDIOVASCULAR: Negative for chest pain, leg swelling, hypertension, CHF or palpitations GI: No nausea, vomiting, or diarrhea SKIN: Negative for lesions, rash, and itching EXAM: BP 104/60 Pulse 60 Resp 16 Wt 65.8 kg (145 lb) SpO2 96% BMI 24.89 kg/m? Home Cuff: 114/59 General Appearance: Well appearing, alert, in n (more content not included)... [facility] 02-08-2023 Instructions Tony Soares MD - 02/08/2023 8:29 AM EDT Call with high blood pressure readings above 140/90 or low less than 100/60. documented in this encounter [facility] 02-08-2023 History of Presen t illness Narrative Chief Complaint Patient presents with: Blood Pressure: BP has been elevated HPI Patricia Hurley is a 82 year old female who presents here today for Above Complaints. HTN: Ms. Hurley indicates that she is feeling well and denies any symptoms referable to elevated blood pressure. Specifically denies headache, chest pain, palpitations, dyspnea, and peripheral edema. Patient denies any side effects of her medication(s) and is compliant with their regimen. She does check BP's away from this office with BP's in the 87/54-183/77 range. Patricia denies regular aerobic exercise. She watches her diet for sodium, low fat and low cholesterol most of the time. Last 3 Encounter BP Readings: Date: BP: 02/08/2023 104/60 10/14/2022 130/68 09/07/2022 136/78 Past medical history, appointments, medications, allergies reviewed. Previous Medical History PAST MEDICAL HISTORY Diagnosis Date Aortic stenosis moderate Basal cell carcinoma Cataracts, bilateral s/p removal Chronic urticaria seeing Dr. Card Concussion 05/2015 fell off step stool COVID-19 GERD (gastroesophageal reflux disease) with esophagitis on EGD Glaucoma Hamstring strain bilateral legs Heart murmur History of shingles 2015 Hyperlipidemia Hypertension Insomnia Macular degeneration Melanoma (HCC) Mitral regurgitation Dr. Ibarra Post herpetic neuralgia lidocaine patch Premature contractions, atrial Previous Surgical History PAST SURGICAL HISTORY Procedure Laterality Date APPENDECTOMY 1970 CATARACT EXTRACTION HX Bilateral 2012 CATARACT SURGERY, COMPLEX Bilateral R 10/2012-L 12/2012 CHOLECYSTECTOMY 2002 COLONOSCOPY 12/11/2015 10mm adenomatous polyp found, repeat in 3 years COLONOSCOPY FLX DX W/COLLJ SPEC WHEN PFRMD 02/15/2019 Colonoscopy. repeat in 5 years. EGD 12/11/2015 post gastric ulcer deformity noted in pre-pyloric region and antrum. ESOPHAGOGASTRODUODENOSCOPY TRANSORAL DIAGNOSTIC 02/15/2019 EGD HEMORRHOIDECTOMY 2009 MELANOMA OF SKIN BIOPSY SYN RPT Right 2007 PAST SURGICAL HISTORY OF laparoscopy of adhesions PAST SURGICAL HISTORY OF basal cell carcinoma removal REPAIR RECTOCELE SEPARATE PROCEDURE ROTATOR CUFF REPAIR Right 2007 TOTAL ABDOMINAL HYSTERECT W/WO RMVL TUBE OVARY 1972 Family History FAMILY HISTORY Problem Relation Age of Onset Hypertension Mother Hypertension Father Cancer Father pancreatic Patient Allergies ALLERGIES Allergen Reactions Oxycodone Itching Current Medications Current Outpatient Medications on File Prior to Visit Medication Sig Doxepin 3 mg tab Take 1 tablet by mouth daily at bedtime. losartan (COZAAR) 50 mg tablet Take 1.5 tablets by mouth once daily. (Patient taking differently: Take 50 mg by mouth once daily.) dilTIAZem CD (CARDIZEM CD, CARTIA XT) 120 mg 24 hr capsule Take 1 capsule by mouth once daily. atorvastatin (LIPITOR) 10 mg tablet Take 1 tablet by mouth once daily. famotidine (PEPCID) 40 mg tablet Take 1 tablet by mouth twice daily. dorzolamide-timolol (COSOPT) 22.3-6.8 mg/mL ophthalmic solution Use 1 Drop in both eyes twice daily. brimonidine (ALPHAGAN) 0.2 % ophthalmic solution lidocaine (LIDODERM) 5 % Apply 1 Patch as directed every 12 hours. latanoprost (XALATAN) 0.005 % ophthalmic solution Use 1 Drop in both eyes once daily. vit C,K-Bq-dejcn-lutein-zeaxan (PRESERVISION AREDS-2) 250-90-40-1 mg Take 1 tablet by mouth twice daily at 6AM and 9PM. BIOTIN ORAL Take 5,000 mg by mouth once daily. Cholecalciferol, Vitamin D3, 25 mcg (1,000 unit) cap Take 1,000 Units by mouth once daily. CYANOCOBALAMIN, VITAMIN B-12, (VITAMIN B-12 ORAL) Take 1,000 mg by mouth once daily. gabapentin (NEURONTIN) 300 mg capsule Take 1 tablet morning and bedtime May take one tablet in afternoon as needed for pain Per Dr. Martinez (Patient taking differently: 1 tablet at night; Per Dr. Martinez) No current facility-administered medications on file prior to visit. Social History Social History Tobacco Use Smoking status: Former Packs/day: 0.50 Years: 10.00 Additional pack years: 0.00 Total pack years: 5.00 Types: Cigarettes Quit date: 05/03/1988 Years since quittin.7 Smokeless tobacco: Never Substance Use Topics Alcohol use: No Drug use: No Review of Symptoms REVIEW OF SYSTEMS GENERAL: No weight loss, malaise or fevers RESPIRATORY: Negative for cough, hemoptysis, wheezing, COPD, dyspnea or shortness of breath CARDIOVASCULAR: Negative for chest pain, leg swelling, hypertension, CHF or palpitations GI: No nausea, vomiting, or diarrhea SKIN: Negative for lesions, rash, and itching EXAM: BP 104/60 Pulse 60 Resp 16 Wt 65.8 kg (145 lb) SpO2 96% BMI 24.89 kg/m Home Cuff: 114/59 General Appearance: Well appearing, alert, in no acute distress, well-hydrated, well nourished.. Skin: Skin color, texture, turgor normal, no suspicious rashes or lesions. Lungs: Lungs clear to auscultation. No wheezing, rhonchi, rales.. Heart: RRR without murmur, gallop, or rubs. No ectopy. Health Maintenance List Pneumococcal Vaccine: 65+(2 - PCV) due on 12/08/2009 Covid-19 Vaccine(4 - Pfizer series) due on 06/17/2021 Advance Directive Discussion Never done Influenza Vaccine(1) due on 01/01/2023 Diabetes Screening due on 09/04/2025 DTaP,Tdap,Td Vaccine(3 - Td or Tdap) due on 07/08/2031 Bone Density Screening Completed Depression Assessment Completed Shingrix Vaccine Completed ASSESSMENT/PLAN: 1. Primary hypertension - ICD9: 401.9, ICD10: I10 BP high and low at home. Typical readings are either normal or low. Will cut back on her losartan to 25 mg daily and check daily. Call with update in 1 week or with red flag symptoms. - Recommend home blood pressure monitoring, to bring results to next visit - Encouraged sodium restriction, DASH or Mediterranean diet - Follow up in 2 weeks for hypertension visit Tony Soares MD documented in this encounter [facility] 02-05-2023 Miscellaneous Notes Phoned patient and advised her of provider's message. She voiced understanding. I would have her take 50 mg of Losartan instead of 75 mg. Will check BP on Wednesday. Patient calling and asking if Dr. Soares can advise her. If not, if Topher Colon can advise, please. Pt reports she has an appt with Dr. Soares this Wednesday to for elevated BP issues. Pt is to bring in her home BP cuff to appt. Patient reports she checked her BP yesterday and it was 102/57. This morning at 8:30am it was 153/72. At 10am, her BP was down 87/54, and was asymptomatic. Pt takes two BP medications every morning: Losartan 50 mg, *takes 1.5 tablets daily Diltiazem CD 120 mg once daily Pt last saw Pest Control Chemical Technician, Dr. Ibarra on 11/10/22. She states at 11/10 Cardio appt, she was advised to reduce one of her BP meds but she does not remember which one, however she states she never did reduce the medication because she felt her BP's were too high. She has not contacted Cardiology of her concerns today. She is asking if PCP can advise her til seen on Wednesday by Dr. Soares? She states she is afraid to sleep at night if her BP is too low. Please advise patient. Thank you. documented in this encounter [facility] 02-05-2023 Miscellaneous Notes Opened in error. Lynette Aguillon RN documented in this encounter [facility] 12-10-2022 Miscellaneous Notes Phoned patient and reviewed provider's message with her. Patient voiced understanding and reports that she thinks she has taken this in the past. Advised her if so not to use medication. She voiced understanding. Recommend trial of low dose anti depressant we use for sleep called doxepin. Would start her on 3 mg at bedtime and call if not improving in about 1 week or sooner with side effects. These medications cause drowsiness and can increase risk for falls so should call if tiredness persists during the day. Pt called and is notified of providers message and instructions. Pt voices understanding, she says every day she is spent by 8 pm, but doesn't go to bed until 11 pm. The Pt reports she is up at 3 am and can't get back to sleep. She reports sometimes she will lay there, but very few days will she fall back asleep. Please call and advise. Kate Dwyer RN I would not have her take more than 10 mg of melatonin. Pt called in and reports she had been taking another sleep medication but switched over and is now taking Melatonin. She states that she is taking 10 mg and she is waking up at 3 am like she was with the other medication. She wanted to know if she could take 15 mg. Please call and advise. documented in this encounter [facility] 10-19-2022 Miscellaneous Notes Reviewed. Topher Colon APRN.COY Patient notified of message below. States she is much better and not having any further symptoms. Lillie Hu LPN ----- Message from Topher Colon APRN.CNP sent at 10/19/2022 7:30 AM EDT ----- Urine culture shows antibiotic she is taking will cover bacteria in urine. Completed entire course and follow-up if not improving. Topher Colon APRN.CNP documented in this encounter [facility] 10-16-2022 Miscellaneous Notes Phoned patient and reviewed message with her. Patient voiced understanding and stated she has the ATB and will start it today. If her flank pain worsens or she develops fevers, chills, nausea, vomiting or blood in urine will need to go to ER. Start antibiotic today. Topher Colon APRN.CNP See other TE- pt returned call for results/update. Pt notified of results/provider instructions. She verbalized understanding. She states she still has that problem and it stresses me out. She notes L flank pain that just started. Denies blood in urine. Bryant Mccormack LPN Urine culture preliminarily looks like she may have bacterial infection. I am going to send in antibiotic for her to take since the full results will not be back until Wednesday. Take one pill twice a day for 5 days. Topher Colon APRN.CNP documented in this encounter [facility] 10-16-2022 Miscellaneous Notes Pt returned call to office. See other TE. Bryant Mccormack LPN Patient telephoned, will draft roller picker and then hangs up. Will try back later. Lillie Hu LPN Please call patient and let her know her urine culture is still pending. How is she feeling today? Topher Colon APRN.COY documented in this encounter [facility] 10-14-2022 Note HNO ID: [id number] Author: Topher Colon APRN.CNP Service: ? Author Type: Nurse Practitioner Type: Progress Notes Filed: 10/14/2022 4:43 PM Note Text: 10/14/2022 Patient presents with: UTI: Burning with urination on and off x5 days SUBJECTIVE: This is a 82 year old that is here today for Above Complaints.. Over the last five days has had burning with urination on and off. Also admits to some urinary urgency and frequency. Denies fevers, chills, abdominal/back pain, nausea, vomiting or hematuria. Component Latest Ref Rng AND Units 10/14/2022 GLUCOSE UA (POCT) Negative mg/dL Negative BILIRUBIN UA (POCT) Negative Negative KETONE UA (POCT) Negative mg/dL Negative SPECIFIC GRAVITY UA (POCT) 1.005 - 1.030 1.010 HEMOGLOBIN/BLOOD UA (POCT) Negative Trace-intact (A) PH UA (POCT) 4.5 - 8.0 7.0 PROTEIN UA (POCT) Negative mg/dL Negative UROBILINOGEN UA (POCT) Normal E.U./dL 0.2 NITRITE UA (POCT) Negative Negative LEUKOCYTES UA (POCT) Negative Moderate (A) COLOR UA (POCT) Light yellow CLARITY UA (POCT) Cloudy PAST MEDICAL HISTORY Diagnosis Date Aortic stenosis moderate Basal cell carcinoma Cataracts, bilateral s/p removal Chronic urticaria seeing Dr. Card Concussion 05/2015 fell off step stool COVID-19 GERD (gastroesophageal reflux disease) with esophagitis on EGD Glaucoma Hamstring strain bilateral legs Heart murmur History of shingles 2015 Hyperlipidemia Hypertension Insomnia Macular degeneration Melanoma (HCC) Mitral regurgitation Dr. Ibarra Post herpetic neuralgia lidocaine patch Premature contractions, atrial ALLERGIES Oxycodone MEDICATIONS Current Outpatient Medications Medication Sig losartan (COZAAR) 50 mg tablet Take 1.5 tablets by mouth once daily. dilTIAZem CD (CARDIZEM CD, CARTIA XT) 120 mg 24 hr capsule Take 1 capsule by mouth once daily. atorvastatin (LIPITOR) 10 mg tablet Take 1 tablet by mouth once daily. famotidine (PEPCID) 40 mg tablet Take 1 tablet by mouth twice daily. dorzolamide-timolol (COSOPT) 22.3-6.8 mg/mL ophthalmic solution Use 1 Drop in both eyes twice daily. brimonidine (ALPHAGAN) 0.2 % ophthalmic solution gabapentin (NEURONTIN) 300 mg capsule Take 1 tablet morning and bedtime May take one tablet in afternoon as needed for pain Per Dr. Martinez (Patient taking differently: 1 tablet at night; Per Dr. Martinez) lidocaine (LIDODERM) 5 % Apply 1 Patch as directed every 12 hours. latanoprost (XALATAN) 0.005 % ophthalmic solution Use 1 Drop in both eyes once daily. vit C,A-Se-hwcmv-lutein-zeaxan (PRESERVISION AREDS-2) 250-90-40-1 mg Take 1 tablet by mouth twice daily at 6AM and 9PM. BIOTIN ORAL Take 5,000 mg by mouth once daily. Cholecalciferol, Vitamin D3, 25 mcg (1,000 unit) cap Take 1,000 Units by mouth once daily. CYANOCOBALAMIN, VITAMIN B-12, (VITAMIN B-12 ORAL) Take 1,000 mg by mouth once daily. No current facility-administered medications for this visit. Medications and allergies reviewed by this provider. SOCIAL HISTORY Social History Tobacco Use Smoking status: Former Packs/day: 0.50 Years: 10.00 Pack years: 5.00 Types: Cigarettes Quit date: 05/03/1988 Years since quittin.4 Smokeless tobacco: Never Substance Use Topics Alcohol use: No Drug use: No REVIEW OF SYSTEMS All other reviewed and negative other than HPI. OBJECTIVE: BP 130/68 Pulse 76 Temp 37 ?C (98.6 ?F) Resp 16 Wt 67.8 kg (149 lb 6.4 oz) SpO2 96% BMI 25.64 kg/m? . Vital signs reviewed by this provider. APPEARANCE Well appearing, alert, in no acute distress, well-hydrated, well nourished. EYES PERRLA, conjunctiva and sclera normal. HEART Regular rate and rhythm. 3/6 YUDELKA LUNG clear to auscultation. No wheezes, rhonchi or rales ABDOMEN no tenderness to palpation BACK: No CVA tenderness SKIN Skin color, texture, turgor normal, no suspicious rashes or lesions to exposed skin ADVANCE DIRECTIVE DISCUSSION Never done COVID-19 VACCINE(4 - Booster for Pfizer series) due on 12/18/2022 PNEUMOCOCCAL: 65+(2 - PCV) due on 12/18/2022 INFLUENZA(Season Ended) due on 01/01/2023 DIABETES SCREEN due on 09/04/2025 DTAP,TDAP,TD(3 - Td or Tdap) due on 07/08/2031 BONE DENSITY Completed DEPRESSION ASSESSMENT Completed SHINGRIX VACCINE Completed ASSESSMENT/PLAN: 1. Dysuria - ICD9: 788.1, ICD10: R30.0 acute - UA positive for trace hematuria and moderate leukocytes - no red flag symptoms or exam finding - red flag symptoms discussed, verbalizes understanding - Patient education for prevention given - URINE CULTURE - UA DIP, URINE (POC) - will await to treat until culture, however I instructed her to let us know if her symptoms are becoming more persistent or worsening. Will call Wednesday and check on her if culture has not resulted and if still persisting can send in treatment since the weekend will be coming. Patient agreeable to plan. To ER if develops red flag symptoms Stephanie (more content not included)... [facility] 10-14-2022 Instructions Topher Colon APRN.CNP - 10/14/2022 4:00 PM EDT If you develop persistent pain with urination, increasing urgency/frequency, fever, confusion, abdominal pain, back pain or vomiting notify office documented in this encounter [facility] 10-14-2022 History of Presen t illness Narrative 10/14/2022 Patient presents with: UTI: Burning with urination on and off x5 days SUBJECTIVE: This is a 82 year old that is here today for Above Complaints.. Over the last five days has had burning with urination on and off. Also admits to some urinary urgency and frequency. Denies fevers, chills, abdominal/back pain, nausea, vomiting or hematuria. Component Latest Ref Rng & Units 10/14/2022 GLUCOSE UA (POCT) Negative mg/dL Negative BILIRUBIN UA (POCT) Negative Negative KETONE UA (POCT) Negative mg/dL Negative SPECIFIC GRAVITY UA (POCT) 1.005 - 1.030 1.010 HEMOGLOBIN/BLOOD UA (POCT) Negative Trace-intact (A) PH UA (POCT) 4.5 - 8.0 7.0 PROTEIN UA (POCT) Negative mg/dL Negative UROBILINOGEN UA (POCT) Normal E.U./dL 0.2 NITRITE UA (POCT) Negative Negative LEUKOCYTES UA (POCT) Negative Moderate (A) COLOR UA (POCT) Light yellow CLARITY UA (POCT) Cloudy PAST MEDICAL HISTORY Diagnosis Date Aortic stenosis moderate Basal cell carcinoma Cataracts, bilateral s/p removal Chronic urticaria seeing Dr. Card Concussion 05/2015 fell off step stool COVID-19 GERD (gastroesophageal reflux disease) with esophagitis on EGD Glaucoma Hamstring strain bilateral legs Heart murmur History of shingles 2015 Hyperlipidemia Hypertension Insomnia Macular degeneration Melanoma (HCC) Mitral regurgitation Dr. Ibarra Post herpetic neuralgia lidocaine patch Premature contractions, atrial ALLERGIES Oxycodone MEDICATIONS Current Outpatient Medications Medication Sig losartan (COZAAR) 50 mg tablet Take 1.5 tablets by mouth once daily. dilTIAZem CD (CARDIZEM CD, CARTIA XT) 120 mg 24 hr capsule Take 1 capsule by mouth once daily. atorvastatin (LIPITOR) 10 mg tablet Take 1 tablet by mouth once daily. famotidine (PEPCID) 40 mg tablet Take 1 tablet by mouth twice daily. dorzolamide-timolol (COSOPT) 22.3-6.8 mg/mL ophthalmic solution Use 1 Drop in both eyes twice daily. brimonidine (ALPHAGAN) 0.2 % ophthalmic solution gabapentin (NEURONTIN) 300 mg capsule Take 1 tablet morning and bedtime May take one tablet in afternoon as needed for pain Per Dr. Martinez (Patient taking differently: 1 tablet at night; Per Dr. Martinez) lidocaine (LIDODERM) 5 % Apply 1 Patch as directed every 12 hours. latanoprost (XALATAN) 0.005 % ophthalmic solution Use 1 Drop in both eyes once daily. vit C,O-Qp-liagv-lutein-zeaxan (PRESERVISION AREDS-2) 250-90-40-1 mg Take 1 tablet by mouth twice daily at 6AM and 9PM. BIOTIN ORAL Take 5,000 mg by mouth once daily. Cholecalciferol, Vitamin D3, 25 mcg (1,000 unit) cap Take 1,000 Units by mouth once daily. CYANOCOBALAMIN, VITAMIN B-12, (VITAMIN B-12 ORAL) Take 1,000 mg by mouth once daily. No current facility-administered medications for this visit. Medications and allergies reviewed by this provider. SOCIAL HISTORY Social History Tobacco Use Smoking status: Former Packs/day: 0.50 Years: 10.00 Pack years: 5.00 Types: Cigarettes Quit date: 05/03/1988 Years since quittin.4 Smokeless tobacco: Never Substance Use Topics Alcohol use: No Drug use: No REVIEW OF SYSTEMS All other reviewed and negative other than HPI. OBJECTIVE: BP 130/68 Pulse 76 Temp 37 C (98.6 F) Resp 16 Wt 67.8 kg (149 lb 6.4 oz) SpO2 96% BMI 25.64 kg/m . Vital signs reviewed by this provider. APPEARANCE Well appearing, alert, in no acute distress, well-hydrated, well nourished. EYES PERRLA, conjunctiva and sclera normal. HEART Regular rate and rhythm. 3/6 YUDELKA LUNG clear to auscultation. No wheezes, rhonchi or rales ABDOMEN no tenderness to palpation BACK: No CVA tenderness SKIN Skin color, texture, turgor normal, no suspicious rashes or lesions to exposed skin ADVANCE DIRECTIVE DISCUSSION Never done COVID-19 VACCINE(4 - Booster for Pfizer series) due on 12/18/2022 PNEUMOCOCCAL: 65+(2 - PCV) due on 12/18/2022 INFLUENZA(Season Ended) due on 01/01/2023 DIABETES SCREEN due on 09/04/2025 DTAP,TDAP,TD(3 - Td or Tdap) due on 07/08/2031 BONE DENSITY Completed DEPRESSION ASSESSMENT Completed SHINGRIX VACCINE Completed ASSESSMENT/PLAN: 1. Dysuria - ICD9: 788.1, ICD10: R30.0 acute - UA positive for trace hematuria and moderate leukocytes - no red flag symptoms or exam finding - red flag symptoms discussed, verbalizes understanding - Patient education for prevention given - URINE CULTURE - UA DIP, URINE (POC) - will await to treat until culture, however I instructed her to let us know if her symptoms are becoming more persistent or worsening. Will call Wednesday and check on her if culture has not resulted and if still persisting can send in treatment since the weekend will be coming. Patient agreeable to plan. To ER if develops red flag symptoms Topher Podlogkenny, ALVIN.QUALITY IMPROVEMENT COORDINATOR (RN) Prescription instructions reviewed with patient as applicable. Patient advised if symptoms do not improve or if symptoms worsen sooner, to contact their primary care physician. Potential red flag symptoms discussed with the patient. Reviewed appropriate action plan to take if red flag symptoms occur. Patient agreeable to treatment plan. I spent a total of 25 minutes on the date of the service which included preparing to see the patient, [id number] patient care, completing clinical documentation, obtaining and/or reviewing separately obtained history, performing a medically appropriate examination, counseling and educating the patient/family/caregiver, and ordering medications, tests, or procedures. documented in this encounter [facility] 09-14-2022 Miscellaneous Notes Pt calls to report that Dr. Ng's office stated they did not receive orders to gastro that were faxed 09/09/22. Orders, OV notes, Results faxed to : [phone]. Marguerite Ngo LPN documented in this encounter [facility] 09-09-2022 Miscellaneous Notes Pt called and requested referral and supportive information for Gastro referral be faxed to Dr. Ng at [facility]. Fax number [phone]. Done Pt will call to schedule apt. Meme Gant LPN documented in this encounter [facility] 09-07-2022 Note HNO ID: [id number] Author: Tony Soares MD Service: ? Author Type: Physician Type: Progress Notes Filed: 09/07/2022 3:27 PM Note Text: Chief Complaint Patient presents with: F/U 6 months HPI Patricia Hurley is a 82 year old female who presents here today for Above Complaints.. Patient worked up 2-3 weeks ago for intermittent LLQ pain with normal labs aside from mildly elevated inflammatory markers and normal CT scan. Pain not present today, but had pain yesterday. Getting pain about 2-3 days per week. Denies fever/chills, nausea, vomiting, diarrhea, constipation, hematochezia, melena. Insomnia: Taking vistaril on a nightly basis and is still only getting about 3 hours most nights. Has tried trazodone in the past. Would like to try melatonin OTC instead. BP well controlled on current regimen. Needs refills. GERD improved with Pepcid. Has follow up in the next month with cardiology for moderate aortic stenosis and mitral regurgitation. Past medical history, appointments, medications, allergies reviewed. Previous Medical History PAST MEDICAL HISTORY Diagnosis Date Aortic stenosis moderate Basal cell carcinoma Cataracts, bilateral s/p removal Chronic urticaria seeing Dr. Card Concussion 05/2015 fell off step stool COVID-19 GERD (gastroesophageal reflux disease) with esophagitis on EGD Glaucoma Hamstring strain bilateral legs Heart murmur History of shingles 2015 Hyperlipidemia Hypertension Insomnia Macular degeneration Melanoma (HCC) Mitral regurgitation Dr. Ibarra Post herpetic neuralgia lidocaine patch Premature contractions, atrial Previous Surgical History PAST SURGICAL HISTORY Procedure Laterality Date APPENDECTOMY 1970 CATARACT EXTRACTION HX Bilateral 2012 CATARACT SURGERY, COMPLEX Bilateral R 10/2012-L 12/2012 CHOLECYSTECTOMY 2002 COLONOSCOPY 12/11/2015 10mm adenomatous polyp found, repeat in 3 years COLONOSCOPY FLX DX W/COLLJ SPEC WHEN PFRMD 02/15/2019 Colonoscopy. repeat in 5 years. EGD 12/11/2015 post gastric ulcer deformity noted in pre-pyloric region and antrum. ESOPHAGOGASTRODUODENOSCOPY TRANSORAL DIAGNOSTIC 02/15/2019 EGD HEMORRHOIDECTOMY 2010 MELANOMA OF SKIN BIOPSY SYN RPT Right 2007 PAST SURGICAL HISTORY OF laparoscopy of adhesions PAST SURGICAL HISTORY OF basal cell carcinoma removal REPAIR RECTOCELE SEPARATE PROCEDURE ROTATOR CUFF REPAIR Right 2007 TOTAL ABDOMINAL HYSTERECT W/WO RMVL TUBE OVARY 1972 Family History FAMILY HISTORY Problem Relation Age of Onset Hypertension Mother Hypertension Father Cancer Father pancreatic Patient Allergies ALLERGIES Allergen Reactions Oxycodone Itching Current Medications Current Outpatient Medications on File Prior to Visit Medication Sig hydrOXYzine HCl (ATARAX) 50 mg tablet Take 1 tablet by mouth at bedtime as needed for anxiety (insomnia). For insomnia atorvastatin (LIPITOR) 10 mg tablet Take 1 tablet by mouth once daily. losartan (COZAAR) 50 mg tablet Take 1.5 tablets by mouth once daily. dilTIAZem CD (CARDIZEM CD, CARTIA XT) 120 mg 24 hr capsule Take 1 capsule by mouth once daily. famotidine (PEPCID) 40 mg tablet Take 1 tablet by mouth twice daily. dorzolamide-timolol (COSOPT) 22.3-6.8 mg/mL ophthalmic solution Use 1 Drop in both eyes twice daily. brimonidine (ALPHAGAN) 0.2 % ophthalmic solution lidocaine (LIDODERM) 5 % Apply 1 Patch as directed every 12 hours. latanoprost (XALATAN) 0.005 % ophthalmic solution Use 1 Drop in both eyes once daily. vit C,I-Kr-tffun-lutein-zeaxan (PRESERVISION AREDS-2) 250-90-40-1 mg Take 1 tablet by mouth twice daily at 6AM and 9PM. BIOTIN ORAL Take 5,000 mg by mouth once daily. Cholecalciferol, Vitamin D3, 25 mcg (1,000 unit) cap Take 1,000 Units by mouth once daily. CYANOCOBALAMIN, VITAMIN B-12, (VITAMIN B-12 ORAL) Take 1,000 mg by mouth once daily. docusate sodium (COLACE) 100 mg capsule Take 1 capsule by mouth twice daily as needed for Constipation. (Patient not taking: Reported on 08/17/2022) gabapentin (NEURONTIN) 300 mg capsule Take 1 tablet morning and bedtime May take one tablet in afternoon as needed for pain Per Dr. Martinez (Patient taking differently: 1 tablet at night; Per Dr. Martinez) No current facility-administered medications on file prior to visit. Social History Social History Tobacco Use Smoking status: Former Packs/day: 0.50 Years: 10.00 Pack years: 5.00 Types: Cigarettes Quit date: 05/03/1988 Years since quittin.3 Smokeless tobacco: Never Substance Use Topics Alcohol use: No Drug use: No Review of Symptoms REVIEW OF SYSTEMS GENERAL: No weight loss, malaise or fevers RESPIRATORY: Negative for cough, hemoptysis, wheezing, COPD, dyspnea or shortness of breath CARDIOVASCULAR: Negative for chest pain, leg swelling, hypertension, CHF or palpitations GI: No nausea, vomiting, or diarrhea SKIN: Negative for lesions, (more content not included)... [facility] documented as of this encounter (statuses as of 09/08/2022) [facility]05-08-2023 History of Past illness Narrative* Problem Noted Date Resolved Date Melanoma 09/07/2022 documented as of this encounter (statuses as of 09/09/2022) [facility]-08-2023 History of Past illness Narrative* Problem Noted Date Resolved Date Melanoma 09/07/2022 documented as of this encounter (statuses as of 09/14/2022) [address]-2023 History of Past illness Narrative* Problem Noted Date Resolved Date Melanoma 09/07/2022 documented as of this encounter (statuses as of 10/15/2022) [address]-2023 History of Past illness Narrative* Problem Noted Date Resolved Date Melanoma 09/07/2022 documented as of this encounter (statuses as of 10/16/2022) [facility]20[facility] History of Past illness Narrative* Problem Noted Date Resolved Date Melanoma 09/07/2022 documented as of this encounter (statuses as of 10/23/2022) [facility] History of Past illness Narrative* Problem Noted Date Diagnosed Date Resolved Date Melanoma 09/07/2022 documented as of this encounter (statuses as of 12/11/2022) [address]-2023 History of Past illness Narrative* Problem Noted Date Diagnosed Date Resolved Date Melanoma 09/07/2022 documented as of this encounter (statuses as of 02/06/2023) [address]-2023 History of Past illness Narrative* Problem Noted Date Diagnosed Date Resolved Date Melanoma 09/07/2022 documented as of this encounter (statuses as of 02/09/2023) [address]-2023 History of Past illness Narrative* Problem Noted Date Diagnosed Date Resolved Date Melanoma 09/07/2022 documented as of this encounter (statuses as of 02/17/2023) [address]-2023 History of Past illness Narrative* Problem Noted Date Diagnosed Date Resolved Date Melanoma 09/07/2022 documented as of this encounter (statuses as of 02/18/2023) [address]-2023 History of Past illness Narrative* Problem Noted Date Diagnosed Date Resolved Date Melanoma 09/07/2022 documented as of this encounter (statuses as of 02/24/2023) [address]-2023 History of Past illness Narrative* Problem Noted Date Diagnosed Date Resolved Date Melanoma 09/07/2022 documented as of this encounter (statuses as of 03/06/2023) [address]-2023 History of Past illness Narrative* Problem Noted Date Diagnosed Date Resolved Date Melanoma 09/07/2022 documented as of this encounter (statuses as of 03/06/2023) [facility] History of Past illness Narrative* Problem Noted Date Diagnosed Date Resolved Date Melanoma 09/07/2022 documented as of this encounter (statuses as of 03/18/2023) [facility] History of Past illness Narrative* Problem Noted Date Diagnosed Date Resolved Date Melanoma 09/07/2022 documented as of this encounter (statuses as of 03/21/2023) [facility] History of Past illness Narrative* Problem Noted Date Diagnosed Date Resolved Date Melanoma 09/07/2022 documented as of this encounter (statuses as of 03/31/2023) [facility] History of Past illness Narrative* Problem Noted Date Diagnosed Date Resolved Date Melanoma 09/07/2022 documented as of this encounter (statuses as of 04/13/2023) [facility] History of Present illness Narrative* Tony Soares MD - 09/07/2022 2:00 PM EDT Chief Complaint Patient presents with: F/U 6 months HPI Patricia Hurley is a 82 year old female who presents here today for Above Complaints.. Patient worked up 2-3 weeks ago for intermittent LLQ pain with normal labs aside from mildly elevated inflammatory markers and normal CT scan. Pain not present today, but had pain yesterday. Getting pain about 2-3 days per week. Denies fever/chills, nausea, vomiting, diarrhea, constipation, hematochezia, melena. Insomnia: Taking vistaril on a nightly basis and is still only getting about 3 hours most nights. Has tried trazodone in the past. Would like to try melatonin OTC instead. BP well controlled on current regimen. Needs refills. GERD improved with Pepcid. Has follow up in the next month with cardiology for moderate aortic stenosis and mitral regurgitation. Past medical history, appointments, medications, allergies reviewed. Previous Medical History PAST MEDICAL HISTORY Diagnosis Date Aortic stenosis moderate Basal cell carcinoma Cataracts, bilateral s/p removal Chronic urticaria seeing Dr. Card Concussion 05/2015 fell off step stool COVID-19 GERD (gastroesophageal reflux disease) with esophagitis on EGD Glaucoma Hamstring strain bilateral legs Heart murmur History of shingles 2016 Hyperlipidemia Hypertension Insomnia Macular degeneration Melanoma (HCC) Mitral regurgitation Dr. Ibarra Post herpetic neuralgia lidocaine patch Premature contractions, atrial Previous Surgical History PAST SURGICAL HISTORY Procedure Laterality Date APPENDECTOMY 1970 CATARACT EXTRACTION HX Bilateral 2012 CATARACT SURGERY, COMPLEX Bilateral R 10/2012-L 12/2012 CHOLECYSTECTOMY 2002 COLONOSCOPY 12/11/2015 10mm adenomatous polyp found, repeat in 3 years COLONOSCOPY FLX DX W/COLLJ SPEC WHEN PFRMD 02/15/2019 Colonoscopy. repeat in 5 years. EGD 12/11/2015 post gastric ulcer deformity noted in pre-pyloric region and antrum. ESOPHAGOGASTRODUODENOSCOPY TRANSORAL DIAGNOSTIC 02/15/2019 EGD HEMORRHOIDECTOMY 2009 MELANOMA OF SKIN BIOPSY SYN RPT Right 2007 PAST SURGICAL HISTORY OF laparoscopy of adhesions PAST SURGICAL HISTORY OF basal cell carcinoma removal REPAIR RECTOCELE SEPARATE PROCEDURE ROTATOR CUFF REPAIR Right 2007 TOTAL ABDOMINAL HYSTERECT W/WO RMVL TUBE OVARY 1972 Family History FAMILY HISTORY Problem Relation Age of Onset Hypertension Mother Hypertension Father Cancer Father pancreatic Patient Allergies ALLERGIES Allergen Reactions Oxycodone Itching Current Medications Current Outpatient Medications on File Prior to Visit Medication Sig hydrOXYzine HCl (ATARAX) 50 mg tablet Take 1 tablet by mouth at bedtime as needed for anxiety (insomnia). For insomnia atorvastatin (LIPITOR) 10 mg tablet Take 1 tablet by mouth once daily. losartan (COZAAR) 50 mg tablet Take 1.5 tablets by mouth once daily. dilTIAZem CD (CARDIZEM CD, CARTIA XT) 120 mg 24 hr capsule Take 1 capsule by mouth once daily. famotidine (PEPCID) 40 mg tablet Take 1 tablet by mouth twice daily. dorzolamide-timolol (COSOPT) 22.3-6.8 mg/mL ophthalmic solution Use 1 Drop in both eyes twice daily. brimonidine (ALPHAGAN) 0.2 % ophthalmic solution lidocaine (LIDODERM) 5 % Apply 1 Patch as directed every 12 hours. latanoprost (XALATAN) 0.005 % ophthalmic solution Use 1 Drop in both eyes once daily. vit C,K-Ht-iabtm-lutein-zeaxan (PRESERVISION AREDS-2) 250-90-40-1 mg Take 1 tablet by mouth twice daily at 6AM and 9PM. BIOTIN ORAL Take 5,000 mg by mouth once daily. Cholecalciferol, Vitamin D3, 25 mcg (1,000 unit) cap Take 1,000 Units by mouth once daily. CYANOCOBALAMIN, VITAMIN B-12, (VITAMIN B-12 ORAL) Take 1,000 mg by mouth once daily. docusate sodium (COLACE) 100 mg capsule Take 1 capsule by mouth twice daily as needed for Constipation. (Patient not taking: Reported on 08/17/2022) gabapentin (NEURONTIN) 300 mg capsule Take 1 tablet morning and bedtime May take one tablet in afternoon as needed for pain Per Dr. Martinez (Patient taking differently: 1 tablet at night; Per Dr. Martinez) No current facility-administered medications on file prior to visit. Social History Social History Tobacco Use Smoking status: Former Packs/day: 0.50 Years: 10.00 Pack years: 5.00 Types: Cigarettes Quit date: 05/03/1988 Years since quittin.3 Smokeless tobacco: Never Substance Use Topics Alcohol use: No Drug use: No Review of Symptoms REVIEW OF SYSTEMS GENERAL: No weight loss, malaise or fevers RESPIRATORY: Negative for cough, hemoptysis, wheezing, COPD, dyspnea or shortness of breath CARDIOVASCULAR: Negative for chest pain, leg swelling, hypertension, CHF or palpitations GI: No nausea, vomiting, or diarrhea SKIN: Negative for lesions, rash, and itching EXAM: BP 136/78 (BP Site: Right Arm, BP Position: Sitting, BP Cuff Size: Regular Adult) Pulse 72 Resp14 Wt 67.1 kg (148 lb) BMI 25.40 kg/m General Appearance: Well appearing, alert, in no acute distress, well-hydrated, well nourished.. Skin: Skin color, texture, turgor normal, no suspicious rashes or lesions. Lungs: Lungs clear to auscultation. No wheezing, rhonchi, rales.. Heart: RRR with 3/6 YUDELKA without rub or gallops. Abdomen: Normal abdominal exam, Abdomen soft, non-tender. Bowel sounds normal. No masses, organomegaly. Extremities: No deformities, edema, skin discoloration, clubbing or cyanosis. Good capillary refill. . Health Maintenance List ADVANCE DIRECTIVE DISCUSSION Never done DEPRESSION ASSESSMENT Never done COVID-19 VACCINE(4 - Booster for Pfizer series) due on 12/18/2022 PNEUMOCOCCAL: 65+(2 - PCV) due on 12/18/2022 INFLUENZA(Season Ended) due on 01/01/2023 DIABETES SCREEN due on 09/04/2025 DTAP,TDAP,TD(3 - Td or Tdap) due on 07/08/2031 BONE DENSITY Completed SHINGRIX VACCINE Completed Data reviewed Component Latest Ref Rng & Units 08/17/2022 09/04/2022 WBC 3.70 - 11.00 k/uL 9.02 RBC 3.90 - 5.20 m/uL 4.59 Hemoglobin 11.5 - 15.5 g/dL 14.0 Hematocrit 36.0 - 46.0 % 45.0 MCV 80.0 - 100.0 fL 98.0 MCH 26.0 - 34.0 pg 30.5 MCHC 30.5 - 36.0 g/dL 31.1 RDW-CV 11.5 - 15.0 % 13.6 Platelet Count 150 - 400 k/uL 309 MPV 9.0 - 12.7 fL 9.9 Neut% % 56.2 Abs Neut (ANC) 1.45 - 7.50 k/uL 5.06 Lymph% % 26.9 Abs Lymph 1.00 - 4.00 k/uL 2.43 [place]% % 10.5 Abs [place] <0.87 k/uL 0.95 (H) Eosin% % 4.9 Abs Eosin <0.46 k/uL 0.44 Baso% % 1.2 Abs Baso <0.11 k/uL 0.11 (H) Immature Gran % % 0.3 IMMATURE GRANS (ABS) <0.10 k/uL 0.03 NRBC /100 WBC 0.0 Absolute nRBC <0.01 k/uL <0.01 DTYPE Auto Protein, Total 6.3 - 8.0 g/dL 7.3 6.2 (L) Albumin 3.9 - 4.9 g/dL 4.1 3.6 (L) Calcium 8.5 - 10.2 mg/dL 9.4 9.2 Bilirubin, Total 0.2 - 1.3 mg/dL 0.4 0.4 Alkaline Phosphatase 34 - 123 U/L 107 84 AST 13 - 35 U/L 24 19 ALT 7 - 38 U/L 16 21 Glucose 74 - 99 mg/dL 87 86 BUN 7 - 21 mg/dL 13 16 Creatinine 0.58 - 0.96 mg/dL 1.09 (H) 1.10 (H) Sodium 136 - 144 mmol/L 140 141 Potassium 3.7 - 5.1 mmol/L 4.4 3.8 Chloride 97 - 105 mmol/L 104 105 CO2 22 - 30 mmol/L 23 24 Anion Gap 9 - 18 mmol/L 13 12 eGFR >=60 mL/min/1.73m 51 (L) 50 (L) WSR 0 - 20 mm/hr 26 (H) CRP <0.9 mg/dL 1.0 (H) Lipase 16 - 61 U/L 33 Component Latest Ref Rng & Units 09/01/2021 Total Cholesterol, Nonfasting <200 mg/dL 157 Triglycerides, Nonfasting <150 mg/dL 192 (H) HDL Cholesterol, Nonfasting >39 mg/dL 42 LDL Cholesterol, Nonfasting <100 mg/dL 77 Non HDL Cholesterol, Nonfasting <130 mg/dL 115 VLDL Cholesterol, Nonfasting <30 mg/dL 38 (H) Total Chol/HDL Ratio, Nonfasting <5.10 mg/dL 3.74 LDL/HDL Ratio, Nonfasting <2.54 mg/dL 1.83 ASSESSMENT/PLAN: 1. Chronic kidney disease, stage 3a (HCC) - ICD9: 585.3, ICD10: N18.31 (primary diagnosis) - eGFR: Stable - Counseled on avoiding regular use of NSAIDs, adequate hydration, potential risk of IV dye - Recommend maintaining blood pressure under 130/80 - Counseled on renal diet (low sodium/low potassium/low phosphorus) - Medications reviewed and renally adjusted 2. LLQ abdominal pain - ICD9: 789.04, ICD10: R10.32 Persistent pain despite negative workup. Will refer to GI to discuss possible colonoscopy.Red flagsfor re-assessment reviewed with patient in detail. - CONSULT TO GASTROENTEROLOGY 3. Primary hypertension - ICD9: 401.9, ICD10: I10 - good control - Continue current medication(s) - Encouraged dietary sodium restriction/DASH diet - Recommended regular aerobic exercise. - Reviewed risks of HTN and principles of treatment - Goal of BP <140/90 4. Hyperlipidemia, unspecified hyperlipidemia type - ICD9: 272.4, ICD10: E78.5 - good control - Continue current medication. - Encouraged following a low fat, low cholesterol diet. 5. Gastroesophageal reflux disease with esophagitis, unspecified whether hemorrhage - ICD9: 530.11,ICD10: K21.00 Controlled with Pepcid. 6. Nonrheumatic aortic valve stenosis - ICD9: 424.1, ICD10: I35.0 Stable murmur. F/u with cardiology next month. 7. Nonrheumatic mitral valve regurgitation - ICD9: 424.0, ICD10: I34.0 Stable murmur. F/u with cardiology next month. 8. Pulmonary arterial hypertension (HCC) - ICD9: 416.8, ICD10: I27.21 Recommendations per cardiology. 9. Bilateral carotid artery stenosis - ICD9: 433.10, 433.30, ICD10: I65.23 Mild narrowing in 2020. Consider repeat US in 6 months. Tony Soares MD [facility] Miscellaneous Notes* Telephone Encounter - YOSEPH Lynne - 08/21/2022 11:55 AM EDT TC to patient who verbalizes understanding and has no questions at this time. YOSEPH Lynne * Telephone Encounter - Antonella Og LPN - 08/20/2022 4:51 PM EDT ----- Message from Tony Soares MD sent at 08/20/2022 4:35 PM EDT ----- Please notify patient that her CT of her abdomen and pelvis is negative for acute abnormalities that would be causing her pain. No evidence of adhesions or bowel obstruction. [facility] NoteHNO ID: [id number] Author: RT Talita(R) Service: ? Author Type: Internet Specialist Type: Progress Notes Filed: 08/20/2022 3:52 PM Note Text: Radiology Service Progress Note DATE OF SERVICE: August 20, 2022 TIME: 3:52 PM PATIENT IDENTITY VERIFICATION COMPLETED USING TWO (2) STANDARD IDENTIFIERS: Name and Date of confirmed by patient verbally. FALL SCREENING: Has the patient had 2 falls in the last year or 1 fall with injury or currently using an Ambulatory Assistive Device (Walker, Cane, Wheelchair, Crutches, etc.)? No PATIENT GENDER DATA: Female. status: : No status: NO. PATIENT RELEVANT IMPLANT DATA REVIEWED: Yes ALLERGIES: Reviewed and unchanged CONTRAST ALLERGY: NO. EXAM: CT -CONTRAST INDUCED NEPHROPATHY RISK FACTORS: Patient age > 60 years CREATININE: Creatinine Date Value Ref Range Status 08/17/2022 1.09 (H) 0.58 - 0.96 mg/dL Final 09/01/2021 0.99 (H) 0.58 - 0.96 mg/dL Final 02/18/2021 0.93 0.58 - 0.96 mg/dL Final Estimated Glomerular Filtration Rate Date Value Ref Range Status 08/17/2022 51 (L) >=60 mL/min/1.73m? Final Comment: Estimated Glomerular Filtration Rate (eGFR) is calculated using the 2020 CKD-EPI creatinine equation. This equation utilizes serum creatinine, sex, and age as parameters. The creatinine assay has traceable calibration to isotope dilution-mass spectrometry. Refer to KDIGO guidelines for clinical interpretation. In patients with unstable renal function, e.g. those with acute kidney injury, the eGFR may not accurately reflect actual GFR. eGFR- Date Value Ref Range Status 02/18/2021 >60 Final P.O.C.T. RESULTS: POC done: Yes, See Lab Tab August 20, 2022 TREATMENT: N/A PERIPHERAL IV DATA: Ambulatory: A peripheral IV was started in the Left antecubital site with a Angio cath: 22 gauge. RADIOLOGY DEPARTMENT: CT; Exam(s) Completed: Abdomen/Pelvis SIGNATURE: RT Praveen(R) PATIENT NAME: Patricia Hurley DATE: August 20, 2022 TIME: 3:52 [facility]04-17-2023 NoteHNO ID: [id number] Author: Tony Soares MD Service: ? Author Type: Physician Type: Progress Notes Filed: 08/17/2022 3:58 PM Note Text: Chief Complaint Patient presents with: Abdominal Pain: Left lower abdominal pain- patient has been in regarding pain previously. Believes laparoscopic adhesions from hysterectomy. HPI Patricia Hurley is a 82 year old female who presents here today for Above Complaints. Patient here today for continued pain in her LLQ which has not improved from her OV in June. Pain has become more consistent over the last week and pain level has increased over the 2-3 days. Describes as hurting type pain, currently 5/10 without radiation. Exacerbated with sitting or coughing. Not treating with anything OTC. Denies fever/chills, nausea, vomiting, diarrhea, constipation, hematochezia, melena, urinary symptoms, vaginal bleeding/discharge. Has history of adhesions and worries this may be the same thing. Past medical history, appointments, medications, allergies reviewed. Previous Medical History PAST MEDICAL HISTORY Diagnosis Date Aortic stenosis moderate Basal cell carcinoma Cataracts, bilateral s/p removal Chronic urticaria seeing Dr. Card Concussion 05/2015 fell off step stool COVID-19 GERD (gastroesophageal reflux disease) with esophagitis on EGD Glaucoma Hamstring strain bilateral legs Heart murmur History of shingles 2015 Hyperlipidemia Hypertension Insomnia Macular degeneration Melanoma (HCC) Mitral regurgitation Dr. Ibarra Post herpetic neuralgia lidocaine patch Premature contractions, atrial Previous Surgical History PAST SURGICAL HISTORY Procedure Laterality Date APPENDECTOMY 1970 CATARACT EXTRACTION HX Bilateral 2012 CATARACT SURGERY, COMPLEX Bilateral R 10/2012-L 12/2012 CHOLECYSTECTOMY 2002 COLONOSCOPY 12/11/2015 10mm adenomatous polyp found, repeat in 3 years COLONOSCOPY FLX DX W/COLLJ SPEC WHEN PFRMD 02/15/2019 Colonoscopy. repeat in 5 years. EGD 12/11/2015 post gastric ulcer deformity noted in pre-pyloric region and antrum. ESOPHAGOGASTRODUODENOSCOPY TRANSORAL DIAGNOSTIC 02/15/2019 EGD HEMORRHOIDECTOMY 2010 MELANOMA OF SKIN BIOPSY SYN RPT Right 2007 PAST SURGICAL HISTORY OF laparoscopy of adhesions PAST SURGICAL HISTORY OF basal cell carcinoma removal REPAIR RECTOCELE SEPARATE PROCEDURE ROTATOR CUFF REPAIR Right 2007 TOTAL ABDOMINAL HYSTERECT W/WO RMVL TUBE OVARY 1972 Family History FAMILY HISTORY Problem Relation Age of Onset Hypertension Mother Hypertension Father Cancer Father pancreatic Patient Allergies ALLERGIES Allergen Reactions Oxycodone Itching Current Medications Current Outpatient Medications on File Prior to Visit Medication Sig hydrOXYzine HCl (ATARAX) 50 mg tablet Take 1 tablet by mouth at bedtime as needed for anxiety (insomnia). For insomnia atorvastatin (LIPITOR) 10 mg tablet Take 1 tablet by mouth once daily. losartan (COZAAR) 50 mg tablet Take 1.5 tablets by mouth once daily. dilTIAZem CD (CARDIZEM CD, CARTIA XT) 120 mg 24 hr capsule Take 1 capsule by mouth once daily. famotidine (PEPCID) 40 mg tablet Take 1 tablet by mouth twice daily. dorzolamide-timolol (COSOPT) 22.3-6.8 mg/mL ophthalmic solution Use 1 Drop in both eyes twice daily. brimonidine (ALPHAGAN) 0.2 % ophthalmic solution lidocaine (LIDODERM) 5 % Apply 1 Patch as directed every 12 hours. latanoprost (XALATAN) 0.005 % ophthalmic solution Use 1 Drop in both eyes once daily. vit C,L-Uf-nosrn-lutein-zeaxan (PRESERVISION AREDS-2) 250-90-40-1 mg Take 1 tablet by mouth twice daily at 6AM and 9PM. BIOTIN ORAL Take 5,000 mg by mouth once daily. Cholecalciferol, Vitamin D3, 25 mcg (1,000 unit) cap Take 1,000 Units by mouth once daily. CYANOCOBALAMIN, VITAMIN B-12, (VITAMIN B-12 ORAL) Take 1,000 mg by mouth once daily. docusate sodium (COLACE) 100 mg capsule Take 1 capsule by mouth twice daily as needed for Constipation. (Patient not taking: Reported on 08/17/2022) gabapentin (NEURONTIN) 300 mg capsule Take 1 tablet morning and bedtime May take one tablet in afternoon as needed for pain Per Dr. Martinez (Patient taking differently: 1 tablet at night; Per Dr. Martinez) No current facility-administered medications on file prior to visit. Social History Social History Tobacco Use Smoking status: Former Packs/day: 0.50 Years: 10.00 Pack years: 5.00 Types: Cigarettes Quit date: 05/03/1988 Years since quittin.3 Smokeless tobacco: Never Substance Use Topics Alcohol use: No Drug use: No Review of Symptoms REVIEW OF SYSTEMS See HPI EXAM: BP 118/72 Pulse 80 Temp 37.2 ?C (99 ?F) Resp 16 SpO2 96% General Appearance: Well appearing, alert, in no acute distress, well-hydrated, well nourished.. Skin: Skin color, texture, turgor normal, no suspicious rashes or lesions. Lungs: Lungs clear to auscultation. No wheezing, rhonchi (more content not included)...[facility]04-10-2023 Miscellaneous Notes* Telephone Encounter - Elizabeth Alatorre MA - 08/10/2022 1:17 PM EDT Per Epic; patient has been rescheduled. Elizabeth Alatorre MA * Telephone Encounter - Taisha Sage APRN.CNP - 08/10/2022 1:06 PM EDT Agree with below. Taisha Sage APRN.COY * Telephone Encounter - Elizabeth Alatorre MA - 08/10/2022 12:51 PM EDT Pt added on to see Taisha today (08/10/22) for follow up . Pt is a [facility] patient. Attempted to contact patient to inquire what she is needing to be seen for and if she can come in at 1340 for a 40 min appointment. If pt is unable to come in early, she will need to be rescheduled to either PCP or [facility]'s schedule. LM for pt to contact office. Elizabeth Alatorre MA [facility] Miscellaneous Notes* Telephone Encounter - Dominguez Farrell APRN.CNP - 07/24/2022 2:07 PM EDT The following approved medication requests have been transmitted electronically. Requested Prescriptions Pending Prescriptions Disp Refills hydrOXYzine HCl (ATARAX) 50 mg tablet 90 tablet 2 Sig: Take 1 tablet by mouth at bedtime as needed for anxiety (insomnia). For insomnia atorvastatin (LIPITOR) 10 mg tablet 90 tablet 3 Sig: Take 1 tablet by mouth once daily. Refused Prescriptions Disp Refills losartan (COZAAR) 50 mg tablet 135 tablet 1 Sig: Take 1.5 tablets by mouth once daily. Refused By: VANESSA SI[facility] Reason for Refusal: Records indicate that there is a valid prescription at the pharmacy Dominguez Farrell APRN.COY * Telephone Encounter - TORRI Lynne - 07/24/2022 1:24 PM EDT CHRISTINA 06/30/22 with CB Appointment scheduled for 09/07/22 with CB Please advise. Thank you. TORRI Lynne * Telephone Encounter - Mary Snow - 07/24/2022 12:01 PM EDT Patient has been identified by name and date of : Yes Requested Prescriptions Pending Prescriptions Disp Refills hydrOXYzine HCl (ATARAX) 50 mg tablet 90 tablet 2 Sig: Take 1 tablet by mouth at bedtime as needed for anxiety (insomnia). For insomnia atorvastatin (LIPITOR) 10 mg tablet 90 tablet 3 Sig: Take 1 tablet by mouth once daily. losartan (COZAAR) 50 mg tablet 135 tablet 1 Sig: Take 1.5 tablets by mouth once daily. RX INSTRUCTIONS: Patient aware RX will be sent to pharmacy. No need to notify patient. Mary Snow documented in [facility] encounterThe [facility]03-[facility]23 Miscellaneous Notes* Telephone Encounter - Tania Arreaga Cma - 07/07/2022 9:38 AM EST Patient notified and verbalized understanding Tania Arreaga Cma * Telephone Encounter - Cyndy Lopez APRN.CNP - 07/07/2022 9:04 AM EST Please let patient know that her mammogram is normal. Patient should continue with yearly screenings. documented in this encounterThe [facility]03-06-2023 NoteHNO ID: [id number] Author: Albina Fernandez Service: ? Author Type: Internet Specialist Type: Progress Notes Filed: 07/06/2022 1:42 PM Note Text: Radiology Service Progress Note PATIENT NAME: Patricia Hurley DATE OF SERVICE: July 06, 2022 TIME: 1:13 PM PATIENT IDENTITY VERIFICATION COMPLETED USING TWO (2) IDENTIFIERS: Name and Date of confirmed by patient verbally. FALL SCREENING: Has the patient had 2 falls in the last year or 1 fall with injury or currently using an Ambulatory Assistive Device (Walker, Cane, Wheelchair, Crutches, etc.)? No PATIENT GENDER DATA: Female. status: : No status: NO. PATIENT RELEVANT IMPLANT DATA REVIEWED: Not Applicable RADIOLOGY DEPARTMENT: Mammography PERIPHERAL IV DATA: Not applicable SIGNED BY: Mariusz FernandezBeyond Gaming Ce July 06, 2022 1:13 [facility]03-02-2023 Miscellaneous Notes* Telephone Encounter - Tony Soares MD - 07/02/2022 10:01 AM EST Reviewed. * Telephone Encounter - Beatriz Isaac LPN - 07/02/2022 9:15 AM EST Phoned patient and reviewed results with her. She voiced understanding and reports that the contamination is likely her fault due to improper cleansing because she had to void so badly. She denies any new symptoms and reports trying to increase her water intake. * Telephone Encounter - Beatriz Isaac LPN - 07/02/2022 9:15 AM EST ----- Message from Tony Soares MD sent at 07/02/2022 8:08 AM EST ----- Urine culture is negative for specific infection. Shows contamination. Any new urinary symptoms since her OV? documented in this encounterThe [facility] Hospital02-28-2023 NoteHNO ID: [id number] Author: Tony Soares MD Service: ? Author Type: Physician Type: Progress Notes Filed: 08/17/2022 3:41 PM Note Text: Chief Complaint Patient presents with: Abdominal Pain: Patient stated had it for approx 2 months and now it seems to be gone Derm Problem: Reports toes on left foot have been bright red for approx 2 months no pain HPI Patricia Hurley is a 82 year old female who presents here today for Above Complaints. Patient states that she had pain in her LLQ abdomen which started about 2 months ago and then improved about 6 weeks ago. Has only had pain 2 days in the last 6 weeks. No pain today. Described intermittent dull pain without radiation. Admits to chronic constipation which is improved with prunes or Miralax PRN. Urine looked cloudy today without other urinary symptoms. Denies fever/chills, nausea, vomiting, diarrhea, hematochezia, melena. Past medical history, appointments, medications, allergies reviewed. Previous Medical History PAST MEDICAL HISTORY Diagnosis Date Aortic stenosis moderate Basal cell carcinoma Cataracts, bilateral s/p removal Chronic urticaria seeing Dr. Card Concussion 05/2015 fell off step stool COVID-19 GERD (gastroesophageal reflux disease) with esophagitis on EGD Glaucoma Hamstring strain bilateral legs Heart murmur History of shingles 2016 Hyperlipidemia Hypertension Insomnia Macular degeneration Melanoma (HCC) Mitral regurgitation Dr. Ibarra Post herpetic neuralgia lidocaine patch Premature contractions, atrial Previous Surgical History PAST SURGICAL HISTORY Procedure Laterality Date APPENDECTOMY 1970 CATARACT EXTRACTION HX Bilateral 2012 CATARACT SURGERY, COMPLEX Bilateral R 10/2012-L 12/2012 CHOLECYSTECTOMY 2002 COLONOSCOPY 12/11/2015 10mm adenomatous polyp found, repeat in 3 years COLONOSCOPY FLX DX W/COLLJ SPEC WHEN PFRMD 02/15/2019 Colonoscopy. repeat in 5 years. EGD 12/11/2015 post gastric ulcer deformity noted in pre-pyloric region and antrum. ESOPHAGOGASTRODUODENOSCOPY TRANSORAL DIAGNOSTIC 02/15/2019 EGD HEMORRHOIDECTOMY 2010 MELANOMA OF SKIN BIOPSY SYN RPT Right 2007 PAST SURGICAL HISTORY OF laparoscopy of adhesions PAST SURGICAL HISTORY OF basal cell carcinoma removal REPAIR RECTOCELE SEPARATE PROCEDURE ROTATOR CUFF REPAIR Right 2008 TOTAL ABDOMINAL HYSTERECT W/WO RMVL TUBE OVARY 1972 Family History FAMILY HISTORY Problem Relation Age of Onset Hypertension Mother Hypertension Father Cancer Father pancreatic Patient Allergies ALLERGIES Allergen Reactions Oxycodone Itching Current Medications Current Outpatient Medications on File Prior to Visit Medication Sig losartan (COZAAR) 50 mg tablet Take 1.5 tablets by mouth once daily. dilTIAZem CD (CARDIZEM CD, CARTIA XT) 120 mg 24 hr capsule Take 1 capsule by mouth once daily. famotidine (PEPCID) 40 mg tablet Take 1 tablet by mouth twice daily. hydrOXYzine HCl (ATARAX) 50 mg tablet Take 1 tablet by mouth at bedtime as needed for anxiety (insomnia). For insomnia atorvastatin (LIPITOR) 10 mg tablet Take 1 tablet by mouth once daily. dorzolamide-timolol (COSOPT) 22.3-6.8 mg/mL ophthalmic solution Use 1 Drop in both eyes twice daily. brimonidine (ALPHAGAN) 0.2 % ophthalmic solution docusate sodium (COLACE) 100 mg capsule Take 1 capsule by mouth twice daily as needed for Constipation. lidocaine (LIDODERM) 5 % Apply 1 Patch as directed every 12 hours. latanoprost (XALATAN) 0.005 % ophthalmic solution Use 1 Drop in both eyes once daily. vit C,Y-Ip-atzij-lutein-zeaxan (PRESERVISION AREDS-2) 250-90-40-1 mg Take 1 tablet by mouth twice daily at 6AM and 9PM. BIOTIN ORAL Take 5,000 mg by mouth once daily. Cholecalciferol, Vitamin D3, 25 mcg (1,000 unit) cap Take 1,000 Units by mouth once daily. CYANOCOBALAMIN, VITAMIN B-12, (VITAMIN B-12 ORAL) Take 1,000 mg by mouth once daily. gabapentin (NEURONTIN) 300 mg capsule Take 1 tablet morning and bedtime May take one tablet in afternoon as needed for pain Per Dr. Martinez (Patient taking differently: 1 tablet at night; Per Dr. Martinez) No current facility-administered medications on file prior to visit. Social History Social History Tobacco Use Smoking status: Former Packs/day: 0.50 Years: 10.00 Pack years: 5.00 Types: Cigarettes Quit date: 05/03/1988 Years since quittin.1 Smokeless tobacco: Never Substance Use Topics Alcohol use: No Drug use: No Review of Symptoms REVIEW OF SYSTEMS See HPI EXAM: BP 108/62 Pulse 65 Temp 37.1 ?C (98.7 ?F) Resp 16 Wt 68 kg (150 lb) SpO2 96% BMI 25.75 kg/m? General Appearance: Well appearing, alert, in no acute distress, well-hydrated, well nourished.. Skin: Skin color, texture, turgor normal, no suspicious rashes or lesions. Abdomen: Normal abdominal exam, Abdomen soft, non-tender. Bowel sounds normal. No masses, organomegaly. Extrem (more content not included)...[facility]12-01-2022 Miscellaneous Notes* Telephone Encounter - Zunilda Mckeon Ma - 04/02/2022 11:59 AM EST CHRISTINA 03/04/22 NOV 09/07/22 * Telephone Encounter - Lo De La Cruz - 04/02/2022 11:42 AM EST Patient has been identified by name and date of : Yes Last office visit in this department: 03/04/2022 RX INSTRUCTIONS: Patient aware RX will be sent to pharmacy. No need to notify patient. Patient phones requesting refills as follows: Requested Prescriptions Pending Prescriptions Disp Refills losartan (COZAAR) 50 mg tablet 135 tablet 1 Sig: Take 1.5 tablets by mouth once daily. dilTIAZem CD (CARDIZEM CD, CARTIA XT) 120 mg 24 hr capsule 90 capsule 1 Sig: Take 1 capsule by mouth once daily. Please review and advise. Lo De La Cruz documented in this encounterThe [facility]11-02-2022 History of Present illness Narrative* Topher Colon APRN.COY - 03/04/2022 1:21 PM EDT 03/04/2022 Patient presents with: 6 Month Exam SUBJECTIVE: This is a 81 year old that is here today for Above Complaints. Since last office visit has been in good health without ER visits or hospitalizations. HTN: Patient is compliant with meds Yes Monitors bp at home: No. Denies side effects: Yes. Chest pain: No. Dyspnea: No. Edema: No. Palpitations: No. Syncope: No. Headache: No. Aortic stenosis: Last follow-up with Cardiology on 10/22/2021. No medication changes at that time. Denies SOB, palpitations, or leg edema. Last ECHO EF was 65% GERD: taking Pepcid as prescribed. Denies breakthrough symptoms Sees Dr. Martinez for post herpetic pain. Takes one gabapentin a day ONSET: last night when getting out of bed LOCATION: left upper back DURATION: intermittent CHARACTERISTICS: sharp AGGRAVATING FEATURES: moving arm across chest or laying on left side ALLEVIATING FEATURES:has not tried anything Denies past/present injury, swelling or redness to area HYPERLIPIDEMIA: Patient is taking medications: Yes. Patient is watching diet: Yes. Patient denies myalgias: Yes. Patient denies gi upset: Yes PAST MEDICAL HISTORY Diagnosis Date Aortic stenosis moderate Basal cell carcinoma Cataracts, bilateral s/p removal Chronic urticaria seeing Dr. Card Concussion 05/2015 fell off step stool COVID-19 GERD (gastroesophageal reflux disease) with esophagitis on EGD Glaucoma Hamstring strain bilateral legs Heart murmur History of shingles 2016 Hyperlipidemia Hypertension Insomnia Macular degeneration Melanoma (HCC) Mitral regurgitation Dr. Ibarra Post herpetic neuralgia lidocaine patch Premature contractions, atrial ALLERGIES Oxycodone MEDICATIONS Current Outpatient Medications Medication Sig famotidine (PEPCID) 40 mg tablet Take 1 tablet by mouth twice daily. hydrOXYzine HCl (ATARAX) 50 mg tablet Take 1 tablet by mouth at bedtime as needed for anxiety (insomnia). For insomnia dilTIAZem CD (CARDIZEM CD, CARTIA XT) 120 mg 24 hr capsule Take 1 capsule by mouth once daily. atorvastatin (LIPITOR) 10 mg tablet Take 1 tablet by mouth once daily. losartan (COZAAR) 50 mg tablet Take 1.5 tablets by mouth once daily. dorzolamide-timolol (COSOPT) 22.3-6.8 mg/mL ophthalmic solution Use 1 Drop in both eyes twice daily. brimonidine (ALPHAGAN) 0.2 % ophthalmic solution docusate sodium (COLACE) 100 mg capsule Take 1 capsule by mouth twice daily as needed for Constipation. gabapentin (NEURONTIN) 300 mg capsule Take 1 tablet morning and bedtime May take one tablet in afternoon as needed for pain Per Dr. Martinez (Patient taking differently: 1 tablet at night; Per Dr. Martinez) lidocaine (LIDODERM) 5 % Apply 1 Patch as directed every 12 hours. latanoprost (XALATAN) 0.005 % ophthalmic solution Use 1 Drop in both eyes once daily. vit C,A-Tw-awyzp-lutein-zeaxan (PRESERVISION AREDS-2) 250-90-40-1 mg Take 1 tablet by mouth twice daily at 6AM and 9PM. BIOTIN ORAL Take 5,000 mg by mouth once daily. Cholecalciferol, Vitamin D3, 25 mcg (1,000 unit) cap Take 1,000 Units by mouth once daily. CYANOCOBALAMIN, VITAMIN B-12, (VITAMIN B-12 ORAL) Take 1,000 mg by mouth once daily. No current facility-administered medications for this visit. Medications and allergies reviewed by this provider. SOCIAL HISTORY Social History Tobacco Use Smoking status: Former Packs/day: 0.50 Years: 10.00 Pack years: 5.00 Types: Cigarettes Quit date: 05/03/1988 Years since quittin.8 Smokeless tobacco: Never Substance Use Topics Alcohol use: No Drug use: No REVIEW OF SYSTEMS All other reviewed and negative other than HPI. OBJECTIVE: BP 138/68 Pulse 78 Resp 16 Wt 66.2 kg (146 lb) SpO2 95% BMI 25.06 kg/m . Vital signs reviewed by this provider. APPEARANCE Well appearing, alert, in no acute distress, well-hydrated, well nourished. EYES PERRLA, conjunctiva and sclera normal. HEART RRR with normal S1 and S2 no gallops, no JVD appreciated. 3/6 YUDELKA LUNG clear to auscultation. No wheezes, rhonchi rales EXTREMITIES Extremities normal, No deformities, No skin discoloration, and No edema SKIN Skin color, texture, turgor normal, no suspicious rashes or lesions to exposed skin LEFT SHOULDER: No obvious deformity, erythema or swelling. Point TTP to left shoulder blade- no skin changes observed. Component Latest Ref Rng & Units 09/01/2021 WBC 3.70 - 11.00 k/uL 6.74 RBC 3.90 - 5.20 m/uL 4.37 Hemoglobin 11.5 - 15.5 g/dL 13.0 Hematocrit 36.0 - 46.0 % 41.7 MCV 80.0 - 100.0 fL 95.4 MCH 26.0 - 34.0 pg 29.7 MCHC 30.5 - 36.0 g/dL 31.2 RDW-CV 11.5 - 15.0 % 13.4 Platelet Count 150 - 400 k/uL 285 MPV 9.0 - 12.7 fL 9.3 Neut% % 56.4 Abs Neut (ANC) 1.45 - 7.50 k/uL 3.80 Lymph% % 27.2 Abs Lymph 1.00 - 4.00 k/uL 1.83 [place]% % 9.6 Abs [place] <0.87 k/uL 0.65 Eosin% % 5.3 Abs Eosin <0.46 k/uL 0.36 Baso% % 1.2 Abs Baso <0.11 k/uL 0.08 Immature Gran % % 0.3 IMMATURE GRANS (ABS) <0.10 k/uL <0.03 NRBC /100 WBC 0.0 Absolute nRBC <0.01 k/uL <0.01 DTYPE Auto Protein, Total 6.3 - 8.0 g/dL 6.2 (L) Albumin 3.9 - 4.9 g/dL 3.8 (L) Calcium 8.5 - 10.2 mg/dL 8.7 Bilirubin, Total 0.2 - 1.3 mg/dL 0.3 Alkaline Phosphatase 34 - 123 U/L 103 AST 13 - 35 U/L 23 ALT 7 - 38 U/L 30 Glucose 74 - 99 mg/dL 83 BUN 7 - 21 mg/dL 16 Creatinine 0.58 - 0.96 mg/dL 0.99 (H) Sodium 136 - 144 mmol/L 138 Potassium 3.7 - 5.1 mmol/L 4.0 Chloride 97 - 105 mmol/L 103 CO2 22 - 30 mmol/L 26 Anion Gap 9 - 18 mmol/L 9 eGFR >=60 mL/min/1.73m 57 (L) Total Cholesterol, Nonfasting <200 mg/dL 157 Triglycerides, Nonfasting <150 mg/dL 192 (H) HDL Cholesterol, Nonfasting >39 mg/dL 42 LDL Cholesterol, Nonfasting <100 mg/dL 77 Non HDL Cholesterol, Nonfasting <130 mg/dL 115 VLDL Cholesterol, Nonfasting <30 mg/dL 38 (H) Total Chol/HDL Ratio, Nonfasting <5.10 mg/dL 3.74 LDL/HDL Ratio, Nonfasting <2.54 mg/dL 1.83 Iron 41 - 186 ug/dL 86 TIBC 232 - 386 ug/dL 261 Transferrin Saturation 15 - 57 % 33 TSH 0.270 - 4.200 mIU/L 1.760 Ferritin 14.7 - 205.1 ng/mL 84.0 ADVANCE DIRECTIVE DISCUSSION Never done DEPRESSION ASSESSMENT Never done INFLUENZA(1) due on 10/30/2022 COVID-19 VACCINE(4 - Booster for Pfizer series) due on 12/18/2022 PNEUMOCOCCAL: 65+(2 - PCV) due on 12/18/2022 DIABETES SCREEN due on 09/01/2024 DTAP,TDAP,TD(3 - Td or Tdap) due on 07/08/2031 BONE DENSITY Completed SHINGRIX VACCINE Completed ASSESSMENT/PLAN: 1. Primary hypertension - ICD9: 401.9, ICD10: I10 (primary diagnosis) - good control - Continue current medication(s) - Encouraged dietary sodium restriction/DASH diet - Recommended regular aerobic exercise. - Recommend home blood pressure monitoring, to bring results in on next visit - Recheck in 6 months, sooner should new symptoms or problems arise. - Goal of BP <140/90 - Recommended no refined sugar, low refined starch, healthy oil intake (olive oil), healthy protein(fish) along the lines of the Mediterranean diet. 2. Post herpetic neuralgia - ICD9: 053.19, ICD10: B02.29 - follow-up with Dr. Martinez scheduled 3. Heart murmur - ICD9: 785.2, ICD10: R01.1 - stable - continue current medications and follow-up with cardiology as scheduled 4. Gastroesophageal reflux disease with esophagitis, unspecified whether hemorrhage - ICD9: 530.11,ICD10: K21.00 - controlled on current regime 5. Hyperlipidemia, unspecified hyperlipidemia type - ICD9: 272.4, ICD10: E78.5 - good control - Continue current medication. - Encouraged following a low fat, low cholesterol diet. - Follow up in 6 months. - Encouraged following a low carbohydrate, healthy oil intake diet. 6. Nonrheumatic aortic valve stenosis - ICD9: 424.1, ICD10: I35.0 - stable - continue current medications - follow-up with cardiology as recommended 7. Shoulder blade pain - ICD9: 733.90, ICD10: M89.8X1 - no red flag symptoms or exam findings - red flag symptoms discussed, verbalizes understanding - would recommend OTC pain relievers, topicals and pain patches as directed on packaging. May use heat for 15 minutes at a time- reminded not to sleep on heating pad - follow-up if symptoms fail to improve Topher Colon APRN.CNP Prescription instructions reviewed with patient as applicable. Patient advised if symptoms do not improve or if symptoms worsen sooner, to contact their primary care physician. Potential red flag symptoms discussed with the patient. Reviewed appropriate action plan to take if red flag symptoms occur. Patient agreeable to treatment plan. I spent a total of 30 minutes on the date of the service which included preparing to see the patient, [id number] patient care, completing clinical documentation, obtaining and/or reviewing separately obtained history, performing a medically appropriate examination, and counseling and educating the patient/family/caregiver. documented in this encounterThe [facility]09-03-[facility]22 History of Present illness Narrative* Celia David APRN.CNP - 01/03/2022 12:52 PM EDT CC: Patient presents with: Urinary Problem: Burning with urination x 1 day HPI Patricia Hurley is a 81 year old female who presents with complaint of possible UTI. These symptoms have been present for 1 days. Associated symptoms: burning only very little Denies: urgency, frequency, foul smelling urine, backpain, fever, chills, sweats, abdominal pain, and flank pain Treatments: nothing The ROS was otherwise negative. PMH, Medications, labs, allergies, and recent past visits with PCP were reviewed and updated as able. PHYSICAL EXAM: BP 112/68 Pulse 65 Temp 36.8 C (98.2 F) Resp 16 Wt 66.7 kg (147 lb) SpO2 97% BMI 25.23 kg/m General: Well appearing and alert CV: Regular rate and rhythm without obvious murmur Lungs: clear to auscultation bilaterally Back: straight and symmetric Abdomen: soft, nontender, nondistended PAST MEDICAL HISTORY Diagnosis Date Aortic stenosis moderate Basal cell carcinoma Cataracts, bilateral s/p removal Chronic urticaria seeing Dr. Card Concussion 05/2015 fell off step stool COVID-19 GERD (gastroesophageal reflux disease) with esophagitis on EGD Glaucoma Hamstring strain bilateral legs Heart murmur History of shingles 2016 Hyperlipidemia Hypertension Insomnia Macular degeneration Melanoma (HCC) Mitral regurgitation Dr. Ibarra Post herpetic neuralgia lidocaine patch Premature contractions, atrial PAST SURGICAL HISTORY Procedure Laterality Date APPENDECTOMY 1970 CATARACT EXTRACTION HX Bilateral 2012 CATARACT SURGERY, COMPLEX Bilateral R 10/2012-L 12/2012 CHOLECYSTECTOMY 2002 COLONOSCOPY 12/11/2015 10mm adenomatous polyp found, repeat in 3 years COLONOSCOPY FLX DX W/COLLJ SPEC WHEN PFRMD 02/15/2019 Colonoscopy. repeat in 5 years. EGD 12/11/2015 post gastric ulcer deformity noted in pre-pyloric region and antrum. ESOPHAGOGASTRODUODENOSCOPY TRANSORAL DIAGNOSTIC 02/15/2019 EGD HEMORRHOIDECTOMY 2010 MELANOMA OF SKIN BIOPSY SYN RPT Right 2007 PAST SURGICAL HISTORY OF laparoscopy of adhesions PAST SURGICAL HISTORY OF basal cell carcinoma removal REPAIR RECTOCELE SEPARATE PROCEDURE ROTATOR CUFF REPAIR Right 2007 TOTAL ABDOMINAL HYSTERECT W/WO RMVL TUBE OVARY 1972 ALLERGIES Oxycodone MEDICATIONS famotidine (PEPCID) 40 mg tablet Take 1 tablet by mouth twice daily. hydrOXYzine HCl (ATARAX) 50 mg tablet Take 1 tablet by mouth at bedtime as needed for anxiety (insomnia). For insomnia dilTIAZem CD (CARDIZEM CD, CARTIA XT) 120 mg 24 hr capsule Take 1 capsule by mouth once daily. atorvastatin (LIPITOR) 10 mg tablet Take 1 tablet by mouth once daily. losartan (COZAAR) 50 mg tablet Take 1.5 tablets by mouth once daily. dorzolamide-timolol (COSOPT) 22.3-6.8 mg/mL ophthalmic solution Use 1 Drop in both eyes twice daily. brimonidine (ALPHAGAN) 0.2 % ophthalmic solution docusate sodium (COLACE) 100 mg capsule Take 1 capsule by mouth twice daily as needed for Constipation. gabapentin (NEURONTIN) 300 mg capsule Take 1 tablet morning and bedtime May take one tablet in afternoon as needed for pain Per Dr. Martinez (Patient taking differently: 1 tablet at night; Per Dr. Martinez) lidocaine (LIDODERM) 5 % Apply 1 Patch as directed every 12 hours. latanoprost (XALATAN) 0.005 % ophthalmic solution Use 1 Drop in both eyes once daily. vit C,B-Ow-cocst-lutein-zeaxan (PRESERVISION AREDS-2) 250-90-40-1 mg Take 1 tablet by mouth twice daily at 6AM and 9PM. BIOTIN ORAL Take 5,000 mg by mouth once daily. Cholecalciferol, Vitamin D3, 25 mcg (1,000 unit) cap Take 1,000 Units by mouth once daily. CYANOCOBALAMIN, VITAMIN B-12, (VITAMIN B-12 ORAL) Take 1,000 mg by mouth once daily. FAMILY HISTORY Problem Relation Age of Onset Hypertension Mother Hypertension Father Cancer Father pancreatic Social History Tobacco Use Smoking status: Former Packs/day: 0.50 Years: 10.00 Pack years: 5.00 Types: Cigarettes Quit date: 05/03/1988 Years since quittin.6 Smokeless tobacco: Never Substance Use Topics Alcohol use: No Drug use: No ASSESSMENT/PLAN: 1. Burning with urination - ICD9: 788.1, ICD10: R30.0 - UA DIP, URINE (POC) - URINE CULTURE Patient is not started on medication yet due to urine dip results. Patient will be placed on medication if the culture is positive. Prescription instructions reviewed with patient as applicable. Potential red flag symptoms discussed with the patient. Also if symptoms get worse patient will come back in for follow up evaluation. Reviewed appropriate action plan to take if red flag symptoms occur. Patient agreeable to treatment plan. Celia David APRN.COY documented in this encounterThe [facility]08-22-2022 History of Present illness Narrative* Tony Soares MD - 12/22/2021 4:39 PM EDT Chief Complaint Patient presents with: Abdominal Pain: Complaining of off and on abdominal pain to left side since Wednesday night. HPI Patricia Hurley is a 81 year old female who presents here today for Above Complaints.. Patient states that 2 nights ago she was watching TV when she developed pain in her LLQ with insidious onset. Described as fullness sensation associated nausea without vomiting. Took pepto bismol went to bed and pain resolved and did not return until late this morning. Now, feels like cramping in LLQ, 3/10, without radiation. Admits to chills, decreased appetite. Denies fever, nausea, vomiting, diarrhea, constipation, hematuria, melena, urinary symptoms, vaginal bleeding/discharge. Treated last week for recurrent UTI with Cipro. Urinary symptoms improved. Leaving the state to visit family in 2 days. Past medical history, appointments, medications, allergies reviewed. Previous Medical History PAST MEDICAL HISTORY Diagnosis Date Aortic stenosis moderate Basal cell carcinoma Cataracts, bilateral s/p removal Chronic urticaria seeing Dr. Card Concussion 05/2015 fell off step stool COVID-19 GERD (gastroesophageal reflux disease) with esophagitis on EGD Glaucoma Hamstring strain bilateral legs Heart murmur History of shingles 2015 Hyperlipidemia Hypertension Insomnia Macular degeneration Melanoma (HCC) Mitral regurgitation Dr. Ibarra Post herpetic neuralgia lidocaine patch Premature contractions, atrial Previous Surgical History PAST SURGICAL HISTORY Procedure Laterality Date APPENDECTOMY 1970 CATARACT EXTRACTION HX Bilateral 2012 CATARACT SURGERY, COMPLEX Bilateral R 10/2012-L 12/2012 CHOLECYSTECTOMY 2002 COLONOSCOPY 12/11/2015 10mm adenomatous polyp found, repeat in 3 years COLONOSCOPY FLX DX W/COLLJ SPEC WHEN PFRMD 02/15/2019 Colonoscopy. repeat in 5 years. EGD 12/11/2015 post gastric ulcer deformity noted in pre-pyloric region and antrum. ESOPHAGOGASTRODUODENOSCOPY TRANSORAL DIAGNOSTIC 02/15/2019 EGD HEMORRHOIDECTOMY 2010 MELANOMA OF SKIN BIOPSY SYN RPT Right 2008 PAST SURGICAL HISTORY OF laparoscopy of adhesions PAST SURGICAL HISTORY OF basal cell carcinoma removal REPAIR RECTOCELE SEPARATE PROCEDURE ROTATOR CUFF REPAIR Right 2007 TOTAL ABDOMINAL HYSTERECT W/WO RMVL TUBE OVARY 1972 Family History FAMILY HISTORY Problem Relation Age of Onset Hypertension Mother Hypertension Father Cancer Father pancreatic Patient Allergies ALLERGIES Allergen Reactions Oxycodone Itching Current Medications Current Outpatient Medications on File Prior to Visit Medication Sig famotidine (PEPCID) 40 mg tablet Take 1 tablet by mouth twice daily. hydrOXYzine HCl (ATARAX) 50 mg tablet Take 1 tablet by mouth at bedtime as needed for anxiety (insomnia). For insomnia dilTIAZem CD (CARDIZEM CD, CARTIA XT) 120 mg 24 hr capsule Take 1 capsule by mouth once daily. atorvastatin (LIPITOR) 10 mg tablet Take 1 tablet by mouth once daily. losartan (COZAAR) 50 mg tablet Take 1.5 tablets by mouth once daily. dorzolamide-timolol (COSOPT) 22.3-6.8 mg/mL ophthalmic solution Use 1 Drop in both eyes twice daily. brimonidine (ALPHAGAN) 0.2 % ophthalmic solution docusate sodium (COLACE) 100 mg capsule Take 1 capsule by mouth twice daily as needed for Constipation. lidocaine (LIDODERM) 5 % Apply 1 Patch as directed every 12 hours. latanoprost (XALATAN) 0.005 % ophthalmic solution Use 1 Drop in both eyes once daily. vit C,U-Xj-ufjxa-lutein-zeaxan (PRESERVISION AREDS-2) 250-90-40-1 mg Take 1 tablet by mouth twice daily at 6AM and 9PM. BIOTIN ORAL Take 5,000 mg by mouth once daily. Cholecalciferol, Vitamin D3, 25 mcg (1,000 unit) cap Take 1,000 Units by mouth once daily. CYANOCOBALAMIN, VITAMIN B-12, (VITAMIN B-12 ORAL) Take 1,000 mg by mouth once daily. gabapentin (NEURONTIN) 300 mg capsule Take 1 tablet morning and bedtime May take one tablet in afternoon as needed for pain Per Dr. Martinez (Patient taking differently: 1 tablet at night; Per Dr. Martinez) No current facility-administered medications on file prior to visit. Social History Social History Tobacco Use Smoking status: Former Packs/day: 0.50 Years: 10.00 Pack years: 5.00 Types: Cigarettes Quit date: 05/03/1988 Years since quittin.6 Smokeless tobacco: Never Substance Use Topics Alcohol use: No Drug use: No Review of Symptoms REVIEW OF SYSTEMS See HPI EXAM: BP 122/60 Pulse 67 Temp 37 C (98.6 F) Resp 16 SpO2 99% General Appearance: Well appearing, alert, in no acute distress, well-hydrated, well nourished.. Skin: Skin color, texture, turgor normal, no suspicious rashes or lesions. Lungs: Lungs clear to auscultation. No wheezing, rhonchi, rales.. Heart:Negative findings: regular rate and rhythm, Positive findings: murmur: 2/6 YUDELKA heard throughout. Abdomen: Abdomen soft. Bowel sounds normal. No masses, organomegaly, Negative CVA tenderness, Positive findings: tenderness marked epigastric and LLQ with guarding and rebound. Health Maintenance List ADVANCE DIRECTIVE DISCUSSION Never done COVID-19 VACCINE(4 - Booster for Pfizer series) due on 12/18/2022 PNEUMOCOCCAL: 65+(2 - PCV) due on 12/18/2022 INFLUENZA(1) due on 01/01/2022 DIABETES SCREEN due on 09/01/2024 DTAP,TDAP,TD(3 - Td or Tdap) due on 07/08/2031 BONE DENSITY Completed SHINGRIX VACCINE Completed ASSESSMENT/PLAN: 1. LLQ pain - ICD9: 789.04, ICD10: R10.32 (primary diagnosis) Possible diverticulitis vs abscess. With marked pain on exam and rebound, recommend ER evaluation for stat labs and imaging. 2. Epigastric pain - ICD9: 789.06, ICD10: R10.13 Unknown etiology. See above. Tony Soares MD documented [facility] encounterThe [facility] Miscellaneous Notes* Telephone Encounter - Tony Soares MD - 12/22/2021 1:25 PM EDT Reviewed. * Telephone Encounter - Domonique Moreno RN - 12/22/2021 12:55 PM EDT Patient calls and notified of results. Patient states that she finished antibiotic yesterday. Patient states that she is not having urinary issues anymore. Patient reports that she has been having pain on left side between waist and top of leg. Patient is supposed to go out of town tomorrow and patient is worried about what the pain is. Patient currently has no pain. Patient has noticed pain after taking medications and after eating breakfast. Patient set up appointment with provider to day to discuss. Reason for Disposition [1] MILD-MODERATE pain AND [2] constant AND [3] present > 2 hours Answer Assessment - Initial Assessment Questions 1. LOCATION: Hurts Left side between waist and top of leg 2. RADIATION: Denies radiation. 3. ONSET: Wednesday Night 4. SUDDEN: Started feeling bad Wednesday night after taking medication 5. PATTERN Comes and goes, not all the time; Does not have pain now; once she lays down and gets still it goes away. Started up after eating breakfast today, but currently does not have. 6. SEVERITY: Wednesday it hurt 4-5, does not hurt now. 7. RECURRENT SYMPTOM: Denies 8. CAUSE: Unsure 9. RELIEVING/AGGRAVATING FACTORS: Laying down makes it better 10. OTHER SYMPTOMS: Denies vomiting, diarrhea, constipation or urine problems; Patient was nauseated Wednesday night. Protocols used: Abdominal Pain - [id number] * Telephone Encounter - Beatriz Isaac LPN - 12/22/2021 12:53 PM EDT Phoned patient and VM left for her to return call to receive provider's message. Please ask if symtoms are improving on the Cipro. * Telephone Encounter - Beatriz Isaac LPN - 12/22/2021 12:53 PM EDT ----- Message from Tony Soares MD sent at 12/22/2021 10:23 AM EDT ----- Patient's urine shows recurrent infection with klebsiella which is now resistant to macrobid. It issusceptible to Cipro. Are her symptoms improving on her current abx regimen? documented in this encounterThe [facility]08-[facility]22 History of Present illness Narrative* Tony Soares MD - 12/18/2021 2:32 PM EDT Chief Complaint Patient presents with: Dysuria HPI Patricia Hurley is a 81 year old female who presents here today for Recurrent UTI symptoms. Patient was evaluated on 12/04 for UTI and treated with macrobid. Urine culture positive for Klebsiella which was sensitive to macrobid. Symptoms resolved after treatment. Today, patient has developed off and on dysuria, frequency. Denies hematuria, urgency, foul smelling urine, fever/chills, nausea, vomiting, flank pain, abdominal pain, vaginal bleeding/discharge. States she has been pushing PO fluids and has not had any other changes to her lifestyle recently whichwould cause this. Past medical history, appointments, medications, allergies reviewed. Previous Medical History PAST MEDICAL HISTORY Diagnosis Date Aortic stenosis moderate Basal cell carcinoma Cataracts, bilateral s/p removal Chronic urticaria seeing Dr. Card Concussion 05/2015 fell off step stool COVID-19 GERD (gastroesophageal reflux disease) with esophagitis on EGD Glaucoma Hamstring strain bilateral legs Heart murmur History of shingles 2015 Hyperlipidemia Hypertension Insomnia Macular degeneration Melanoma (HCC) Mitral regurgitation Dr. Ibarra Post herpetic neuralgia lidocaine patch Premature contractions, atrial Previous Surgical History PAST SURGICAL HISTORY Procedure Laterality Date APPENDECTOMY 1970 CATARACT EXTRACTION HX Bilateral 2012 CATARACT SURGERY, COMPLEX Bilateral R 10/2012-L 12/2012 CHOLECYSTECTOMY 2002 COLONOSCOPY 12/11/2015 10mm adenomatous polyp found, repeat in 3 years COLONOSCOPY FLX DX W/COLLJ SPEC WHEN PFRMD 02/15/2019 Colonoscopy. repeat in 5 years. EGD 12/11/2015 post gastric ulcer deformity noted in pre-pyloric region and antrum. ESOPHAGOGASTRODUODENOSCOPY TRANSORAL DIAGNOSTIC 02/15/2019 EGD HEMORRHOIDECTOMY 2010 MELANOMA OF SKIN BIOPSY SYN RPT Right 2007 PAST SURGICAL HISTORY OF laparoscopy of adhesions PAST SURGICAL HISTORY OF basal cell carcinoma removal REPAIR RECTOCELE SEPARATE PROCEDURE ROTATOR CUFF REPAIR Right 2007 TOTAL ABDOMINAL HYSTERECT W/WO RMVL TUBE OVARY 1972 Family History FAMILY HISTORY Problem Relation Age of Onset Hypertension Mother Hypertension Father Cancer Father pancreatic Patient Allergies ALLERGIES Allergen Reactions Oxycodone Itching Current Medications Current Outpatient Medications on File Prior to Visit Medication Sig famotidine (PEPCID) 40 mg tablet Take 1 tablet by mouth twice daily. hydrOXYzine HCl (ATARAX) 50 mg tablet Take 1 tablet by mouth at bedtime as needed for anxiety (insomnia). For insomnia dilTIAZem CD (CARDIZEM CD, CARTIA XT) 120 mg 24 hr capsule Take 1 capsule by mouth once daily. atorvastatin (LIPITOR) 10 mg tablet Take 1 tablet by mouth once daily. losartan (COZAAR) 50 mg tablet Take 1.5 tablets by mouth once daily. dorzolamide-timolol (COSOPT) 22.3-6.8 mg/mL ophthalmic solution Use 1 Drop in both eyes twice daily. brimonidine (ALPHAGAN) 0.2 % ophthalmic solution docusate sodium (COLACE) 100 mg capsule Take 1 capsule by mouth twice daily as needed for Constipation. gabapentin (NEURONTIN) 300 mg capsule Take 1 tablet morning and bedtime May take one tablet in afternoon as needed for pain Per Dr. Martinez (Patient taking differently: 1 tablet at night; Per Dr. Martinez) lidocaine (LIDODERM) 5 % Apply 1 Patch as directed every 12 hours. latanoprost (XALATAN) 0.005 % ophthalmic solution Use 1 Drop in both eyes once daily. vit C,V-Oi-utubp-lutein-zeaxan (PRESERVISION AREDS 2) 075-390-85-1 vc-xnpx-cm-mg cap Take 1 tablet by mouth twice daily at 6AM and 9PM. BIOTIN ORAL Take 5,000 mg by mouth once daily. Cholecalciferol, Vitamin D3, (VITAMIN D) 1,000 unit cap Take 1,000 Units by mouth once daily. CYANOCOBALAMIN, VITAMIN B-12, (VITAMIN B-12 ORAL) Take 1,000 mg by mouth once daily. No current facility-administered medications on file prior to visit. Social History Social History Tobacco Use Smoking status: Former Packs/day: 0.50 Years: 10.00 Pack years: 5.00 Types: Cigarettes Quit date: 05/03/1988 Years since quittin.6 Smokeless tobacco: Never Substance Use Topics Alcohol use: No Drug use: No Review of Symptoms REVIEW OF SYSTEMS See HPI EXAM: BP 104/62 Pulse 64 Temp 37.1 C (98.8 F) (Right Tympanic) Resp 16 Wt 67.7 kg (149 lb 3.2 oz) BMI 25.61 kg/m General Appearance: Well appearing, alert, in no acute distress, well-hydrated, well nourished.. Skin: Skin color, texture, turgor normal, no suspicious rashes or lesions. Lungs: Lungs clear to auscultation. No wheezing, rhonchi, rales.. Heart: Negative findings: regular rate and rhythm, Positive findings: murmur: 2/6 YUEDLKA heard throughout. Abdomen: Abdomen soft Bowel sounds normal. No masses, organomegaly, Negative CVA tenderness, Positive findings: tenderness mild suprapubic. Health Maintenance List PNEUMOCOCCAL: 65+(2 - PCV) due on 12/08/2009 ADVANCE DIRECTIVE DISCUSSION Never done COVID-19 VACCINE(4 - Booster for Pfizer series) due on 08/21/2021 INFLUENZA(1) due on 01/01/2022 DIABETES SCREEN due on 09/01/2024 DTAP,TDAP,TD(3 - Td or Tdap) due on 07/08/2031 BONE DENSITY Completed SHINGRIX VACCINE Completed Data reviewed Component Latest Ref Rng & Units 12/18/2021 GLUCOSE UA (POCT) Negative mg/dL Negative BILIRUBIN UA (POCT) Negative Negative KETONE UA (POCT) Negative mg/dL Negative SPECIFIC GRAVITY UA (POCT) 1.005 - 1.030 1.015 HEMOGLOBIN/BLOOD UA (POCT) Negative Large (A) PH UA (POCT) 4.5 - 8.0 5.5 PROTEIN UA (POCT) Negative mg/dL 30 (A) UROBILINOGEN UA (POCT) Normal E.U./dL 0.2 NITRITE UA (POCT) Negative Positive (A) LEUKOCYTES UA (POCT) Negative Large (A) COLOR UA (POCT) Dark yellow CLARITY UA (POCT) Cloudy ASSESSMENT/PLAN: 1. Recurrent UTI (urinary tract infection) - ICD9: 599.0, ICD10: N39.0 (primary diagnosis) recurrent - UA positive for raissa esterase, hematuria, and nitrates - Send urine for culture - Begin treatment with Ciprofloxacin 250 mg BID for 3 days - Patient education for prevention given 2. Dysuria - ICD9: 788.1, ICD10: R30.0 - UA DIP, URINE (POC) - URINE CULTURE Tony Soares MD documented in this encounterThe [facility]08-[facility]22 Miscellaneous Notes* Telephone Encounter - Bridget Das LPN - 12/08/2021 12:11 PM EDT Patient notified and verbalizes understanding. Advised that if not better by midweek to notify office. States that still with a tingle not quite an itch. * Telephone Encounter - Lillie Hu LPN - 12/08/2021 12:03 PM EDT Message left to call back for update. Lillie Hu LPN * Telephone Encounter - Lillie Hu LPN - 12/08/2021 12:02 PM EDT ----- Message from Tony Soares MD sent at 12/08/2021 8:38 AM EDT ----- UA positive for infection with Klebsiella. Sensitive for macrobid. Continue treatment as prescribedand push PO fluids. Call if symptoms not improved after completing abx. documented in this encounterThe [facility]08-05-2022 Miscellaneous Notes* Telephone Encounter - Beatriz Isaac LPN - 12/05/2021 10:21 AM EDT Phoned patient 12/04/21 at [facility] to be sure she understood there were 2 Rx's sent to the pharmacy. Patient voiced understanding. * Telephone Encounter - Kate Dwyer RN - 12/04/2021 4:34 PM EDT Pt called and is notified of providers results and instructions from his office visit, did not see any new orders. Pt voices understanding. She states if PCPs office wants to call her back she will have her phone on her and she won't be leaving for vacation until 1200 tomorrow. Kate Dwyer, RN * Telephone Encounter - Beatriz Isaac LPN - 12/04/2021 3:17 PM EDT Phoned patient and VM left regarding result of urine dip and new orders as well as PCP recommendations. Advised patient to call with any questions. documented in this encounterThe [facility]08-04-2022 Miscellaneous Notes* Telephone Encounter - Tony Soares MD - 12/04/2021 8:38 AM EDT Agree with OV today. * Telephone Encounter - Lynette Aguillon RN - 12/04/2021 8:21 AM EDT Protocol recommended: See provider within 24 hours. Patient going on vacation tomorrow. Appt made with Dr. Soares for 11:00am today. Reason for Disposition [1] Discomfort (pain, burning or stinging) when passing urine AND [2] female Age > 50 years Answer Assessment - Initial Assessment Questions Patient reports she has been experiencing urinary symptoms since this Saturday 12/02. Reports burning with urination, mild itching and cloudy urine. She reports she has been using miconazole cream vaginally since 12/02. Slight pink discharge noted once today. 1. SYMPTOM: Burning with urination, cloudy urine and mild itching 2. ONSET: 12/02 3. PAIN:denies 4. CAUSE: Patient not sure if has UTI or vaginal yeast infection 5. OTHER SYMPTOMS:Denies fever, flank pain, or blood in urine 6. :no Answer Assessment - Initial Assessment Questions 1. SEVERITY: burning with urination-moderate 2. FREQUENCY: several 3. PATTERN: every time urinates 4. ONSET: 12/02 5. FEVER:denies 6. PAST UTI:yes 7. CAUSE: possible UTI or vaginal yeast infection 8. OTHER SYMPTOMS:Denies fever, flank pain, genital sores, urgency, blood in urine 9. :no Protocols used: URINARY [id number], URINATION PAIN - [id number] documented in this encounterThe [facility]08-04-2022 Miscellaneous Notes* Telephone Encounter - Lynette Aguillon RN - 12/04/2021 8:35 AM EDT See triage encounter. Lynette Aguillon RN * Telephone Encounter - Domonique Porter - 12/04/2021 8:03 AM EDT Patient calling stating that she would like a call back to discuss her having burning, itching, hurts when she pee, and urine is cloudy. Will be unavailable at 2 pm. She is leaving tomorrow for 2 weeks. Please advise. documented in this encounterThe [facility]06-29-2022 Miscellaneous Notes* Telephone Encounter - Amber Gant Pss - 10/29/2021 10:33 AM EDT Patient has been identified by name and date of : Yes Pending Prescriptions Disp Refills HYDROXYZINE HCL 50 MG TABLET 90 tablet 2 Sig: Take 1 tablet by mouth at bedtime as needed for anxiety (insomnia). For insomnia CONNIE: No CHRISTINA-09/24/21 Labs-09/01/21 NOV-03/04/22 med filled 09/01/21 RX INSTRUCTIONS: Patient aware RX will be sent to pharmacy. No need to notify patient. Amber Gant Pss documented in this encounterThe [facility]06-16-2022 Miscellaneous Notes* Telephone Encounter - Lo Cardoso Pss - 10/16/2021 8:44 AM EDT Pharmacy verified in Epic Patient has been identified by name and date of : Yes Patient aware RX will be sent to pharmacy. No need to notify patient. Patient phones for refill(s): Pending Prescriptions Disp Refills DILTIAZEM SR 120 MG 24 HR CAP 90 capsule 1 Sig: Take 1 capsule by mouth once daily. CONNIE: No Date of last office visit : 09/24/2021 Date of next office visit : 03/04/2022 Last 2 Encounter Wt Readings: Date: Wt: 09/24/2021 66.7 kg (147 lb) 09/01/2021 68.1 kg (150 lb 3.2 oz) Please advise. Lo Cardoso Pss documented in this encounterThe [facility]05-25-2022 History of Present illness Narrative* Tony Soares MD - 09/24/2021 3:27 PM EDT Chief Complaint Patient presents with: Foot Pain (Midfoot): x 1 week HPI Patricia Hurley is a 81 year old female who presents here today for Above Complaints. Patient states that she had right foot pain when getting out of a chair on 09/12. Described as pain in the middle of the bottom of her foot which worsened as the weekend went on. Evaluated at [facility] on 09/15. Obtained xray and told her it was arthritis. Given medrol dose marie which did seem tohelp the pain some. Still has some pain in the midfoot when first stepping down. Improves as she continues to walk on it. Treated with tylenol last night which did help with pain. Has not tried any ice or stretches. Past medical history, appointments, medications, allergies reviewed. Previous Medical History PAST MEDICAL HISTORY Diagnosis Date Aortic stenosis moderate Basal cell carcinoma Cataracts, bilateral s/p removal Chronic urticaria seeing Dr. Card Concussion 05/2015 fell off step stool COVID-19 GERD (gastroesophageal reflux disease) with esophagitis on EGD Glaucoma Hamstring strain bilateral legs Heart murmur History of shingles 2015 Hyperlipidemia Hypertension Insomnia Macular degeneration Melanoma (HCC) Mitral regurgitation Dr. Ibarra Post herpetic neuralgia lidocaine patch Premature contractions, atrial Previous Surgical History PAST SURGICAL HISTORY Procedure Laterality Date APPENDECTOMY 1970 CATARACT EXTRACTION HX Bilateral 2012 CATARACT SURGERY, COMPLEX Bilateral R 10/2012-L 12/2012 CHOLECYSTECTOMY 2002 COLONOSCOPY 12/11/2015 10mm adenomatous polyp found, repeat in 3 years COLONOSCOPY FLX DX W/COLLJ SPEC WHEN PFRMD 02/15/2019 Colonoscopy. repeat in 5 years. EGD 12/11/2015 post gastric ulcer deformity noted in pre-pyloric region and antrum. ESOPHAGOGASTRODUODENOSCOPY TRANSORAL DIAGNOSTIC 02/15/2019 EGD HEMORRHOIDECTOMY 2010 MELANOMA OF SKIN BIOPSY SYN RPT Right 2007 PAST SURGICAL HISTORY OF laparoscopy of adhesions PAST SURGICAL HISTORY OF basal cell carcinoma removal REPAIR RECTOCELE SEPARATE PROCEDURE ROTATOR CUFF REPAIR Right 2007 TOTAL ABDOMINAL HYSTERECT W/WO RMVL TUBE OVARY 1972 Family History FAMILY HISTORY Problem Relation Age of Onset Hypertension Mother Hypertension Father Cancer Father pancreatic Patient Allergies ALLERGIES Allergen Reactions Oxycodone Itching Current Medications Current Outpatient Medications on File Prior to Visit Medication Sig hydrOXYzine HCl (ATARAX) 50 mg tablet Take 1 tablet by mouth at bedtime as needed for anxiety (insomnia). For insomnia atorvastatin (LIPITOR) 10 mg tablet Take 1 tablet by mouth once daily. losartan (COZAAR) 50 mg tablet Take 1.5 tablets by mouth once daily. dilTIAZem CD (CARDIZEM CD, CARTIA XT) 120 mg 24 hr capsule Take 1 capsule by mouth once daily. dorzolamide-timolol (COSOPT) 22.3-6.8 mg/mL ophthalmic solution Use 1 Drop in both eyes twice daily. brimonidine (ALPHAGAN) 0.2 % ophthalmic solution famotidine (PEPCID) 40 mg tablet Take 1 tablet by mouth twice daily. gabapentin (NEURONTIN) 300 mg capsule Take 1 tablet morning and bedtime May take one tablet in afternoon as needed for pain Per Dr. Martinez (Patient taking differently: 1 tablet at night; Per Dr. Martinez) lidocaine (LIDODERM) 5 % Apply 1 Patch as directed every 12 hours. latanoprost (XALATAN) 0.005 % ophthalmic solution Use 1 Drop in both eyes once daily. vit C,E-Pa-jjntb-lutein-zeaxan (PRESERVISION AREDS 2) 535-581-02-1 zc-lzjd-fe-mg cap Take 1 tablet by mouth twice daily at 6AM and 9PM. BIOTIN ORAL Take 5,000 mg by mouth once daily. Cholecalciferol, Vitamin D3, (VITAMIN D) 1,000 unit cap Take 1,000 Units by mouth once daily. CYANOCOBALAMIN, VITAMIN B-12, (VITAMIN B-12 ORAL) Take 1,000 mg by mouth once daily. docusate sodium (COLACE) 100 mg capsule Take 1 capsule by mouth twice daily as needed for Constipation. No current facility-administered medications on file prior to visit. Social History Social History Tobacco Use Smoking status: Former Smoker Packs/day: 0.50 Years: 10.00 Pack years: 5.00 Quit date: 05/03/1988 Years since quittin.4 Smokeless tobacco: Never Used Substance Use Topics Alcohol use: No Drug use: No Review of Symptoms REVIEW OF SYSTEMS See HPI EXAM: BP 124/80 Pulse 72 Resp 14 Wt 66.7 kg (147 lb) BMI 25.23 kg/m General Appearance: Well appearing, alert, in no acute distress, well-hydrated, well nourished.. Skin: Skin color, texture, turgor normal, no suspicious rashes or lesions. Musculoskeletal: TTP over plantar midfoot with normal ROM of ankle. 5/5 strength. No achilles tendon or heel TTP. No bruising/swelling/erythema. Health Maintenance List PNEUMOCOCCAL: 65+(2 - PCV) due on 12/08/2009 ADVANCE DIRECTIVE DISCUSSION Never done COVID-19 VACCINE(4 - Booster for Pfizer series) due on 08/21/2021 INFLUENZA(Season Ended) due on 01/01/2022 DIABETES SCREEN due on 09/01/2024 DTAP,TDAP,TD(3 - Td or Tdap) due on 07/08/2031 BONE DENSITY Completed SHINGRIX VACCINE Completed ASSESSMENT/PLAN: 1. Plantar fasciitis - ICD9: 728.71, ICD10: M72.2 Discussed conservative therapy with ice, home stretches, proper footwear. Offered rx for NSAIDs, but she would prefer to take ibuprofen OTC. Will call if not improving in the next couple of weeks. Tony Soares MD documented in this encounterThe [facility]05-04-2022 Miscellaneous Notes* Telephone Encounter - Lillie Hu LPN - 09/03/2021 1:56 PM EDT Patient notified. Lillie Hu LPN * Telephone Encounter - Tony Soares MD - 09/03/2021 1:25 PM EDT I would have her take her usual dose tomorrow. * Telephone Encounter - Meme Gant LPN - 09/03/2021 12:12 PM EDT Pt calls and states she just got out of the shower and notices her losartan tablet on the floor. She had taken the 1/2 earlier. She is going to wait and take tomorrow like normal. She states her BP is good. Please advise pt only if there is something you want her to do differently. Meme Gant LPN documented in this encounterThe [facility]05-03-2022 Miscellaneous Notes* Telephone Encounter - TORRI Lynne - 09/02/2021 12:17 PM EDT TC to patient who verbalizes understanding of providers message below. Patient has no questions at this time. TORRI Lynne * Telephone Encounter - Topher Colon APRN.CNP - 09/02/2021 11:10 AM EDT Please call patient and let her know her protein level is mildly low- recommend increasing protein in diet. God sources are baked or grilled chicken, turkey or fish, nuts, lean red meats, eggs and cottage cheese to name of few. The rest of her blood work is all in acceptable ranges. Continue current medications. Thanks, Topher Colon APRN.CNP documented in this encounterThe [facility]05-02-2022 History of Present illness Narrative* Tony Soares MD - 09/01/2021 11:10 AM EDT Chief Complaint Patient presents with: 6 Month Exam HPI Patricia Hurley is a 81 year old female who presents here today for 6 month follow up. Patient has been in good health since last OV without recurrent falls. Lacerations on left foreheadand left knee have healed well. Still has mild bruising/discoloration over left forehead. Patient states that her chair springer recommended Viviscal for thinning hair. Has rx, but has not started taking it. Asking if it will work for her. Denies rash, itching, patches of hair loss. HTN: BP well controlled on current regimen. States she has not had any high BP readings since we increased her Losartan to 75 mg. Denies hypotension symptoms despite diastolic <60. Would like to remain on this dosage. No longer on Xolair injections for chronic urticaria x1 month. Has follow up appointment with Dr. Card in 3 days. Denies rash or itching today. Has not been taking her Oxybutynin. Denies urinary incontinence, dysuria, hematuria, frequency, urgency. Would like to stay off of rx for now. GERD: controlled on Pepcid. Past medical history, appointments, medications, allergies reviewed. Previous Medical History PAST MEDICAL HISTORY Diagnosis Date Aortic stenosis moderate Basal cell carcinoma Cataracts, bilateral s/p removal Chronic urticaria seeing Dr. Card Concussion 05/2015 fell off step stool COVID-19 GERD (gastroesophageal reflux disease) with esophagitis on EGD Glaucoma Hamstring strain bilateral legs Heart murmur History of shingles 2016 Hyperlipidemia Hypertension Insomnia Macular degeneration Melanoma (HCC) Mitral regurgitation Dr. Ibarra Post herpetic neuralgia lidocaine patch Premature contractions, atrial Previous Surgical History PAST SURGICAL HISTORY Procedure Laterality Date APPENDECTOMY 1970 CATARACT EXTRACTION HX Bilateral 2012 CATARACT SURGERY, COMPLEX Bilateral R 10/2012-L 12/2012 CHOLECYSTECTOMY 2002 COLONOSCOPY 12/11/2015 10mm adenomatous polyp found, repeat in 3 years COLONOSCOPY FLX DX W/COLLJ SPEC WHEN PFRMD 02/15/2019 Colonoscopy. repeat in 5 years. EGD 12/11/2015 post gastric ulcer deformity noted in pre-pyloric region and antrum. ESOPHAGOGASTRODUODENOSCOPY TRANSORAL DIAGNOSTIC 02/15/2019 EGD HEMORRHOIDECTOMY 2010 MELANOMA OF SKIN BIOPSY SYN RPT Right 2008 PAST SURGICAL HISTORY OF laparoscopy of adhesions PAST SURGICAL HISTORY OF basal cell carcinoma removal REPAIR RECTOCELE SEPARATE PROCEDURE ROTATOR CUFF REPAIR Right 2007 TOTAL ABDOMINAL HYSTERECT W/WO RMVL TUBE OVARY 1972 Family History FAMILY HISTORY Problem Relation Age of Onset Hypertension Mother Hypertension Father Cancer Father pancreatic Patient Allergies ALLERGIES Allergen Reactions Oxycodone Itching Current Medications Current Outpatient Medications on File Prior to Visit Medication Sig hydrOXYzine HCl (ATARAX) 50 mg tablet Take 1 tablet by mouth at bedtime as needed for anxiety (insomnia). For insomnia losartan (COZAAR) 50 mg tablet Take 1.5 tablets by mouth once daily. dilTIAZem CD (CARDIZEM CD, CARTIA XT) 120 mg 24 hr capsule Take 1 capsule by mouth once daily. dorzolamide-timolol (COSOPT) 22.3-6.8 mg/mL ophthalmic solution Use 1 Drop in both eyes twice daily. brimonidine (ALPHAGAN) 0.2 % ophthalmic solution atorvastatin (LIPITOR) 10 mg tablet Take 1 tablet by mouth once daily. famotidine (PEPCID) 40 mg tablet Take 1 tablet by mouth twice daily. gabapentin (NEURONTIN) 300 mg capsule Take 1 tablet morning and bedtime May take one tablet in afternoon as needed for pain Per Dr. Martinez (Patient taking differently: 1 tablet at night; Per Dr. Martinez) lidocaine (LIDODERM) 5 % Apply 1 Patch as directed every 12 hours. latanoprost (XALATAN) 0.005 % ophthalmic solution Use 1 Drop in both eyes once daily. vit C,L-Ci-drtjo-lutein-zeaxan (PRESERVISION AREDS 2) [id number] pc-wfzr-fd-mg cap Take 1 tablet by mouth twice daily at 6AM and 9PM. BIOTIN ORAL Take 5,000 mg by mouth once daily. Cholecalciferol, Vitamin D3, (VITAMIN D) 1,000 unit cap Take 1,000 Units by mouth once daily. CYANOCOBALAMIN, VITAMIN B-12, (VITAMIN B-12 ORAL) Take 1,000 mg by mouth once daily. Estradiol, Bulk, 100 % powd 1 mg once daily. oxybutynin XL (DITROPAN XL) 5 mg 24 hr tablet Take 1 tablet by mouth once daily. (Patient not taking: Reported on 07/07/2021 ) miconazole (MONISTAT-DERM,JORDYN) 2 % cream Apply to affected area twice daily. (Patient not taking: Reported on 06/04/2021 ) docusate sodium (COLACE) 100 mg capsule Take 1 capsule by mouth twice daily as needed for Constipation. omalizumab (XOLAIR) 150 mg injection Inject 2.4 mL (300 mg) subcutaneously once every month. (Patient not taking: Reported on 07/07/2021) EPINEPHrine (EPIPEN 2-MARIE) 0.3 mg/0.3 mL auto-injector INJECT 0.3 ML INTRAMUSCULARLY NEEDED FOR REACTION SEEK EMERGENCY CARE AFTER USE (Patient not taking: Reported on 07/07/2021 ) MAGNESIUM CARBONATE ORAL Take 400 mg by mouth once daily. (Patient not taking: Reported on 04/09/2021 ) No current facility-administered medications on file prior to visit. Social History Social History Tobacco Use Smoking status: Former Smoker Packs/day: 0.50 Years: 10.00 Pack years: 5.00 Quit date: 05/03/1988 Years since quittin.3 Smokeless tobacco: Never Used Substance Use Topics Alcohol use: No Drug use: No Review of Symptoms REVIEW OF SYSTEMS GENERAL: No weight loss, malaise or fevers RESPIRATORY: Negative for cough, hemoptysis, wheezing, COPD, dyspnea or shortness of breath CARDIOVASCULAR: Negative for chest pain, leg swelling, hypertension, CHF or palpitations GI: No nausea, vomiting, or diarrhea SKIN: Negative for lesions, rash, and itching EXAM: BP 112/58 Pulse 64 Resp 18 Wt 68.1 kg (150 lb 3.2 oz) SpO2 98% BMI 25.78 kg/m General Appearance: Well appearing, alert, in no acute distress, well-hydrated, well nourished.. Skin: Skin color, texture, turgor normal, no suspicious rashes or lesions. Head: thinning hair without rash or patches of hair loss Lungs: Lungs clear to auscultation. No wheezing, rhonchi, rales.. Heart: Negative findings: regular rate and rhythm, Positive findings: murmur: 2/6 YUDELKA heard best atRUSB Abdomen: Normal abdominal exam, Abdomen soft, non-tender. Bowel sounds normal. No masses, organomegaly. Extremities: No deformities, edema, skin discoloration, clubbing or cyanosis. Good capillary refill. . Health Maintenance List ADVANCE DIRECTIVE DISCUSSION Never done INFLUENZA(Season Ended) due on 01/01/2022 DIABETES SCREEN due on 02/19/2024 DTAP,TDAP,TD(3 - Td or Tdap) due on 07/08/2031 BONE DENSITY Completed PNEUMOVAX AGE 65 AND OVER WITH 5YR LOOKBACK Completed SHINGRIX VACCINE Completed COVID-19 VACCINE Completed MENINGOCOCCAL CONJUGATE Aged Out Data reviewed Component Latest Ref Rng & Units 02/18/2021 Protein, Total 6.3 - 8.0 g/dL 6.9 Albumin 3.9 - 4.9 g/dL 4.3 Calcium 8.5 - 10.2 mg/dL 10.2 Bilirubin, Total 0.2 - 1.3 mg/dL 0.4 Alkaline Phosphatase 34 - 123 U/L 98 AST 13 - 35 U/L 20 Glucose 74 - 99 mg/dL 84 BUN 7 - 21 mg/dL 14 Creatinine 0.58 - 0.96 mg/dL 0.93 Sodium 136 - 144 mmol/L 140 Potassium 3.7 - 5.1 mmol/L 3.9 Chloride 97 - 105 mmol/L 102 CO2 22 - 30 mmol/L 27 Anion Gap 9 - 18 mmol/L 11 ALT 7 - 38 U/L 19 eGFR- >60 eGFR-All Other Races . 58 Component Latest Ref Rng & Units 10/28/2019 06/28/2020 Protein, Total 6.3 - 8.0 g/dL 6.6 7.0 Albumin 3.9 - 4.9 g/dL 3.8 (L) 4.1 Calcium 8.5 - 10.2 mg/dL 9.4 9.6 Bilirubin, Total 0.2 - 1.3 mg/dL 0.7 0.4 Alkaline Phosphatase 34 - 123 U/L 84 97 AST 13 - 35 U/L 15 16 Glucose 74 - 99 mg/dL 89 86 BUN 7 - 21 mg/dL 10 8 Creatinine 0.58 - 0.96 mg/dL 0.93 0.89 Sodium 136 - 144 mmol/L 141 143 Potassium 3.7 - 5.1 mmol/L 4.0 4.0 Chloride 97 - 105 mmol/L 103 104 CO2 22 - 30 mmol/L 26 28 Anion Gap 9 - 18 mmol/L 12 11 ALT 7 - 38 U/L 8 7 eGFR- >60 >60 eGFR-All Other Races . 58 >60 WBC 3.70 - 11.00 k/uL 5.10 6.36 RBC 3.90 - 5.20 m/uL 4.13 4.19 Hemoglobin 11.5 - 15.5 g/dL 12.6 12.5 Hematocrit 36.0 - 46.0 % 39.1 40.4 MCV 80.0 - 100.0 fL 94.7 96.4 MCH 26.0 - 34.0 pG 30.5 29.8 MCHC 30.5 - 36.0 g/dL 32.2 30.9 RDW-CV 11.5 - 15.0 % 13.3 14.5 Platelet Count 150 - 400 k/uL 266 297 MPV 9.0 - 12.7 fL 9.4 9.8 Absolute nRBC <0.01 k/uL <0.01 <0.01 Total Cholesterol, Nonfasting <200 mg/dL 140 Triglycerides, Nonfasting <150 mg/dL 81 HDL Cholesterol, Nonfasting >39 mg/dL 50 LDL Cholesterol, Nonfasting <100 mg/dL 74 Non HDL Cholesterol, Nonfasting <130 mg/dL 90 VLDL Cholesterol, Nonfasting <30 mg/dL 16 Total Chol/HDL Ratio, Nonfasting <5.10 mg/dL 2.80 LDL/HDL Ratio, Nonfasting <2.54 mg/dL 1.48 TSH 0.270 - 4.200 uU/mL 1.300 ASSESSMENT/PLAN: 1. Thinning hair - ICD9: 704.00, ICD10: L65.9 (primary diagnosis) Obtain labs as ordered. Instructed not to use OTC medication for hair loss. Discussed Minoxidil if labs are normal. Patient will consider this. - TSH BLD - IRON + TIBC - FERRITIN BLD 2. OAB (overactive bladder) - ICD9: 596.51, ICD10: N32.81 Doing well without Oxybutynin. Will monitor. 3. Mixed urge and stress incontinence - ICD9: 788.33, ICD10: N39.46 Doing well without rx. Will monitor. 4. Nonrheumatic aortic valve stenosis - ICD9: 424.1, ICD10: I35.0 Mild aortic stenosis on echo 12/2020. Asymptomatic. Will monitor and follow up cardiology recommendations. 5. Primary hypertension - ICD9: 401.9, ICD10: I10 - good control - Continue current medication(s) - Encouraged dietary sodium restriction/DASH diet - Recommended regular aerobic exercise. - Reviewed risks of HTN and principles of treatment - Goal of BP <140/90 - COMP METABOLIC PANEL - CBC + DIFF 6. Hyperlipidemia, unspecified hyperlipidemia type - ICD9: 272.4, ICD10: E78.5 - to be determined upon return of lab results - Continue current medication. - Encouraged following a low fat, low cholesterol diet. - Discussed the benefits of regular aerobic exercise and weight loss. - LIPID PANEL, NONFASTING 7. Gastroesophageal reflux disease with esophagitis, unspecified whether hemorrhage - ICD9: 530.11,ICD10: K21.00 - Continue treatment with Pepcid 40 mg BID 8. Bilateral carotid artery stenosis - ICD9: 433.10, 433.30, ICD10: I65.23 Repeat US in 6 months. Tony Soares MD [facility] Miscellaneous Notes* Telephone Encounter - Kyra Norris LPN - 08/12/2021 4:35 PM EDT APPROVED until further notice . Briana Norris LPN * Telephone Encounter - Kyra Norris LPN - 08/07/2021 3:15 PM EDT Prior Authorization has been completed online at [employer] for Hydroxyzine, will await response. SWIFT- [id number] Please keep encounter open until final decision has been received and documented from insurance company. Briana Norris LPN documented in [facility] encounterThe [facility] HospitalEvaluation [facility]* Diagnosis Thinning hair- Primary Alopecia, unspecified OAB (overactive bladder) Hypertonicity of bladder Mixed urge and stress incontinence Mixed incontinence urge and stress (male)(female) Nonrheumatic aortic valve stenosis Aortic valve disorders Primary hypertension Unspecified essential hypertension Hyperlipidemia, unspecified hyperlipidemia type Gastroesophageal reflux disease with esophagitis, unspecified whether hemorrhage Bilateral carotid artery stenosis Occlusion and stenosis of carotid artery without mention of cerebral infarction [facility] Diagnosis Plantar fasciitis- Primary Plantar fascial fibromatosis [facility]* Diagnosis Recurrent UTI (urinary tract infection)- Primary Urinary tract infection, site not specified Dysuria [facility]* Diagnosis LLQ pain- Primary Abdominal pain, left lower quadrant Epigastric pain Abdominal pain, epigastric [facility]* Diagnosis Burning with urination- Primary Dysuria [facility] this [facility]* Diagnosis Primary hypertension- Primary Unspecified essential hypertension Post herpetic neuralgia 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 Heart murmur Undiagnosed cardiac murmurs Gastroesophageal reflux disease with esophagitis, unspecified whether hemorrhage Hyperlipidemia, unspecified hyperlipidemia type Nonrheumatic aortic valve stenosis Aortic valve disorders Shoulder blade pain Disorder of bone and cartilage, unspecified [facility] this [facility]* Diagnosis Chronic kidney disease, stage 3a (HCC)- Primary LLQ abdominal pain Abdominal pain, left lower quadrant Primary hypertension Unspecified essential hypertension Hyperlipidemia, unspecified hyperlipidemia type Gastroesophageal reflux disease with esophagitis, unspecified whether hemorrhage Nonrheumatic aortic valve stenosis Aortic valve disorders Nonrheumatic mitral valve regurgitation Pulmonary arterial hypertension (HCC) Other chronic pulmonary heart diseases Bilateral carotid artery stenosis Occlusion and stenosis of carotid artery without mention of cerebral infarction [facility] this encounter [facility]* Diagnosis Dysuria- Primary documented [facility] this encounter [facility]* Diagnosis Primary hypertension- Primary Unspecified essential hypertension [facility] this encounter [facility]* Diagnosis Primary hypertension- Primary Unspecified essential hypertension [facility] this [facility]* Diagnosis Primary hypertension- Primary Unspecified essential hypertension Hyperlipidemia, unspecified hyperlipidemia type OAB (overactive bladder) Hypertonicity of bladder Mixed urge and stress incontinence Mixed incontinence urge and stress (male)(female) Gastroesophageal reflux disease with esophagitis, unspecified whether hemorrhage Nonrheumatic aortic valve stenosis Aortic valve disorders Bilateral carotid artery stenosis Occlusion and stenosis of carotid artery without mention of cerebral infarction Encounter for immunization Need for other specified prophylactic vaccination against single bacterial disease Bilateral carotid artery disease, unspecified type (HCC) documented [facility] this encounter [facility]* Diagnosis Acute cough- Primary documented in this encounter [facility] Advance Directives Documents on File Type Date Recorded Patient Manager Environmental Services Expl anation Advance Directive(s) 02/15/2019 8:21 AM Reason for Referral Specialty Diagnoses / Procedures Referred By Kira t Referred To Contact Gastroenterology Diagnoses LLQ abdominal pain Procedures CONSULT TO GASTROENTEROLOGY OFFICE/OUTPATIENT [facility] 60-74 MINUTES Tony Soares MD [address] [facility] [address] Referral ID Status Reason Start Date Expiration Date Visits Requested Visits Authorized [id number] Authorized PCP Requested Referral 09/07/2022 09/07/2023 1 1 Summary Purpose Family History No Family History Records Found Additional Source Comments Source Comments (unrecognize d section and content) In the event this informatio n is protected by the Federal Confidentiality of Alcohol and Drug Abuse Patient Records regulations: The Federal rules restrict any use of the information to criminally investigate or prosecute any alcohol or drug abuse patient.[facility]In the event this information is protected by the Federal Confidentiality of Alcohol and Drug Abuse Patient Records regulations: The Federal rules restrict any use of the information to criminally investigate or prosecute any alcohol or drug abuse patient.[facility] HospitalIn the event this information is protected by the Federal Confidentiality of Alcohol and Drug Abuse Patient Records regulations: The Federal rules restrict any use of the information to criminally investigate or prosecute any alcohol or drug abuse patient.[facility]In the event this information is protected by the Federal Confidentiality of Alcohol and Drug Abuse Patient Records regulations: The Federal rules restrict any use of the information to criminally investigate or prosecute any alcohol or drug abuse patient.[facility] HospitalIn the event this information is protected by the Federal Confidentiality of Alcohol and Drug Abuse Patient Records regulations: The Federal rules restrict any use of the information to criminally investigate or prosecute any alcohol or drug abuse patient.[facility]In the event this information is protected by the Federal Confidentiality of Alcohol and Drug Abuse Patient Records regulations: The Federal rules restrict any use of the information to criminally investigate or prosecute any alcohol or drug abuse patient.[facility] HospitalIn the event this information is protected by the Federal Confidentiality of Alcohol and Drug Abuse Patient Records regulations: The Federal rules restrict any use of the information to criminally investigate or prosecute any alcohol or drug abuse patient.[facility] HospitalIn the event this information is protected by the Federal Confidentiality of Alcohol and Drug Abuse Patient Records regulations: The Federal rules restrict any use of the information to criminally investigate or prosecute any alcohol or drug abuse patient.[facility] HospitalIn the event this information is protected by the Federal Confidentiality of Alcohol and Drug Abuse Patient Records regulations: The Federal rules restrict any use of the information to criminally investigate or prosecute any alcohol or drug abuse patient.[facility]In the event this information is protected by the Federal Confidentiality of Alcohol and Drug Abuse Patient Records regulations: The Federal rules restrict any use of the information to criminally investigate or prosecute any alcohol or drug abuse patient.[facility]In the event this information is protected by the Federal Confidentiality of Alcohol and Drug Abuse Patient Records regulations: The Federal rules restrict any use of the information to criminally investigate or prosecute any alcohol or drug abuse patient.[facility] HospitalIn the event this information is protected by the Federal Confidentiality of Alcohol and Drug Abuse Patient Records regulations: The Federal rules restrict any use of the information to criminally investigate or prosecute any alcohol or drug abuse patient.[facility]In the event this information is protected by the Federal Confidentiality of Alcohol and Drug Abuse Patient Records regulations: The Federal rules restrict any use of the information to criminally investigate or prosecute any alcohol or drug abuse patient.[facility] HospitalIn the event this information is protected by the Federal Confidentiality of Alcohol and Drug Abuse Patient Records regulations: The Federal rules restrict any use of the information to criminally investigate or prosecute any alcohol or drug abuse patient.[facility]In the event this information is protected by the Federal Confidentiality of Alcohol and Drug Abuse Patient Records regulations: The Federal rules restrict any use of the information to criminally investigate or prosecute any alcohol or drug abuse patient.[facility]In the event this information is protected by the Federal Confidentiality of Alcohol and Drug Abuse Patient Records regulations: The Federal rules restrict any use of the information to criminally investigate or prosecute any alcohol or drug abuse patient.[facility]In the event this information is protected by the Federal Confidentiality of Alcohol and Drug Abuse Patient Records regulations: The Federal rules restrict any use of the information to criminally investigate or prosecute any alcohol or drug abuse patient.[facility]In the event this information is protected by the Federal Confidentiality of Alcohol and Drug Abuse Patient Records regulations: The Federal rules restrict any use of the information to criminally investigate or prosecute any alcohol or drug abuse patient.[facility] HospitalIn the event this information is protected by the Federal Confidentiality of Alcohol and Drug Abuse Patient Records regulations: The Federal rules restrict any use of the information to criminally investigate or prosecute any alcohol or drug abuse patient.[facility] HospitalIn the event this information is protected by the Federal Confidentiality of Alcohol and Drug Abuse Patient Records regulations: The Federal rules restrict any use of the information to criminally investigate or prosecute any alcohol or drug abuse patient.[facility] HospitalIn the event this information is protected by the Federal Confidentiality of Alcohol and Drug Abuse Patient Records regulations: The Federal rules restrict any use of the information to criminally investigate or prosecute any alcohol or drug abuse patient.[facility] HospitalIn the event this information is protected by the Federal Confidentiality of Alcohol and Drug Abuse Patient Records regulations: The Federal rules restrict any use of the information to criminally investigate or prosecute any alcohol or drug abuse patient.[facility]In the event this information is protected by the Federal Confidentiality of Alcohol and Drug Abuse Patient Records regulations: The Federal rules restrict any use of the information to criminally investigate or prosecute any alcohol or drug abuse patient.[facility]In the event this information is protected by the Federal Confidentiality of Alcohol and Drug Abuse Patient Records regulations: The Federal rules restrict any use of the information to criminally investigate or prosecute any alcohol or drug abuse patient.[facility]In the event this information is protected by the Federal Confidentiality of Alcohol and Drug Abuse Patient Records regulations: The Federal rules restrict any use of the information to criminally investigate or prosecute any alcohol or drug abuse patient.[facility]In the event this information is protected by the Federal Confidentiality of Alcohol and Drug Abuse Patient Records regulations: The Federal rules restrict any use of the information to criminally investigate or prosecute any alcohol or drug abuse patient.[facility] HospitalIn the event this information is protected by the Federal Confidentiality of Alcohol and Drug Abuse Patient Records regulations: The Federal rules restrict any use of the information to criminally investigate or prosecute any alcohol or drug abuse patient.[facility] HospitalIn the event this information is protected by the Federal Confidentiality of Alcohol and Drug Abuse Patient Records regulations: The Federal rules restrict any use of the information to criminally investigate or prosecute any alcohol or drug abuse patient.[facility]In the event this information is protected by the Federal Confidentiality of Alcohol and Drug Abuse Patient Records regulations: The Federal rules restrict any use of the information to criminally investigate or prosecute any alcohol or drug abuse patient.[facility]In the event this information is protected by the Federal Confidentiality of Alcohol and Drug Abuse Patient Records regulations: The Federal rules restrict any use of the information to criminally investigate or prosecute any alcohol or drug abuse patient.[facility]In the event this information is protected by the Federal Confidentiality of Alcohol and Drug Abuse Patient Records regulations: The Federal rules restrict any use of the information to criminally investigate or prosecute any alcohol or drug abuse patient.[facility]In the event this information is protected by the Federal Confidentiality of Alcohol and Drug Abuse Patient Records regulations: The Federal rules restrict any use of the information to criminally investigate or prosecute any alcohol or drug abuse patient.[facility]In the event this information is protected by the Federal Confidentiality of Alcohol and Drug Abuse Patient Records regulations: The Federal rules restrict any use of the information to criminally investigate or prosecute any alcohol or drug abuse patient.[facility] HospitalIn the event this information is protected by the Federal Confidentiality of Alcohol and Drug Abuse Patient Records regulations: The Federal rules restrict any use of the information to criminally investigate or prosecute any alcohol or drug abuse patient.[facility]In the event this information is protected by the Federal Confidentiality of Alcohol and Drug Abuse Patient Records regulations: The Federal rules restrict any use of the information to criminally investigate or prosecute any alcohol or drug abuse patient.[facility]In the event this information is protected by the Federal Confidentiality of Alcohol and Drug Abuse Patient Records regulations: The Federal rules restrict any use of the information to criminally investigate or prosecute any alcohol or drug abuse patient.[facility]In the event this information is protected by the Federal Confidentiality of Alcohol and Drug Abuse Patient Records regulations: The Federal rules restrict any use of the information to criminally investigate or prosecute any alcohol or drug abuse patient.[facility]In the event this information is protected by the Federal Confidentiality of Alcohol and Drug Abuse Patient Records regulations: The Federal rules restrict any use of the information to criminally investigate or prosecute any alcohol or drug abuse patient.[facility] HospitalIn the event this information is protected by the Federal Confidentiality of Alcohol and Drug Abuse Patient Records regulations: The Federal rules restrict any use of the information to criminally investigate or prosecute any alcohol or drug abuse patient.[facility] HospitalIn the event this information is protected by the Federal Confidentiality of Alcohol and Drug Abuse Patient Records regulations: The Federal rules restrict any use of the information to criminally investigate or prosecute any alcohol or drug abuse patient.[facility] HospitalIn the event this information is protected by the Federal Confidentiality of Alcohol and Drug Abuse Patient Records regulations: The Federal rules restrict any use of the information to criminally investigate or prosecute any alcohol or drug abuse patient.[facility]In the event this information is protected by the Federal Confidentiality of Alcohol and Drug Abuse Patient Records regulations: The Federal rules restrict any use of the information to criminally investigate or prosecute any alcohol or drug abuse patient.[facility] HospitalIn the event this information is protected by the Federal Confidentiality of Alcohol and Drug Abuse Patient Records regulations: The Federal rules restrict any use of the information to criminally investigate or prosecute any alcohol or drug abuse patient.[facility] Reason for Visit (unrecogniz ed section and content) Reason Comments 6 Month Exam Reason Comments Results Reason Comments Medication Question Reason Comments Foot Pain (Midfoot) x 1 week Reason Onset Date Comments Refill Request 10/16/2021 Reason Comments Prescription Refills Reason Comments Patient Question Reason Comments urinary symptoms Reason Comments Dysuria Reason Comments Abdominal Pain Complaining of off a nd on abdominal pain to left side since Wednesday night. Reason Comments Urinary Problem Burning with urinati on x 1 day Reason Comments Refill Request Reason Onset Date Comments Refill Request 07/24/2022 Reason Comments Appointment Reason Comments F/U 6 months Reason Comments requesting referral to outside Reason Comments Referral Information Reason Comments UTI Burning with urinati on on and off x5 days Reason Comments Patient Update Reason Comments Opened In Error Reason Comments BP Question Reason Comments Blood Pressure BP has been elevated Reason Comments blood pressure readings Reason Comments Blood Pressure Readings Reason Comments BP concerns Reason Comments Orders Reason Comments Blood Pressure Check Reason Comments Follow Up 6 month Reason Comments Cough X3 days Reason Onset Date Comments Refill Request 04/12/2023 Care Teams (unrecognized sec tion and content) Master Ocean Relationship Specialty Start Date End Date Tony Soares MD [address] [place] [address] PCP - General Family Practice 08/14/16 Felton Yancey [address] [place] [address] Pain Management 05/13/18 Ender Lucio [address] [facility] [place] [address] Dermatology 05/13/18 Romie Cueto (Hist) [address] [facility] [place] [address] Cardiology 05/13/18 Stacey, [place] S [address] [place] [address] Physician Cardiology 07/11/18 Master Ocean Relationship Specialty Start Date End Date Tony Soares MD [address] [place] [address] PCP - General Family Practice 08/14/16 Felton Yancey [address] [place] [address] Pain Management 05/13/18 Ender Lucio [address] [facility] [place] [address] Dermatology 05/13/18 Romie Cueto (Hist) [address] [facility] [place] [address] Cardiology 05/13/18 Stacey, [place] S [address] [place] [address] Physician Cardiology 07/11/18 Master Ocean Relationship Specialty Start Date End Date Tony Soares MD [address] [place] [address] PCP - General Family Practice 08/14/16 Felton Yancey [address] [place] [address] Pain Management 05/13/18 Ender Lucio [address] [place] [address] Dermatology 05/13/18 Romie Cueto (Hist) [address] [place] [address] Cardiology 05/13/18 Stacey, [place] S [address] [place] [address] Physician Cardiology 07/11/18 Master Ocean Relationship Specialty Start Date End Date Tony Soares MD [address] [place] [address] PCP - General Family Practice 08/14/16 Felton Yancey [address] [place] [address] Pain Management 05/13/18 Ender Lucio [address] [place] [address] Dermatology 05/13/18 Romie Cueto (Hist) [address] [place] [address] Cardiology 05/13/18 Stacey, Levy S [address] [place] [address] Physician Cardiology 07/11/18 Master Ocean Relationship Specialty Start Date End Date Tony Soares MD [address] [place] [address] PCP - General Family Practice 08/14/16 Felton Yancey [address] [place] [address] Pain Management 05/13/18 Ender Lucio [address] [place] [address] Dermatology 05/13/18 Romie Cueto (Hist) [address] [place] [address] Cardiology 05/13/18 Stacey, [place] S [address] [place] [address] Physician Cardiology 07/11/18 Master Ocean Relationship Specialty Start Date End Date Tony Soares MD [address] [place] [address] PCP - General Family Practice 08/14/16 Felton Yancey [address] [place] [address] Pain Management 05/13/18 Ender Lucio [address] [place] [address] Dermatology 05/13/18 Romie Cueto (Hist) [address] [place] [address] Cardiology 05/13/18 Stacey, [place] S [address] [place] [address] Physician Cardiology 07/11/18 Master Ocean Relationship Specialty Start Date End Date Tony Soares MD [address] [place] [address] PCP - General Family Practice 08/14/16 Felton Yancey [address] [place] [address] Pain Management 05/13/18 Ender Lucio [address] [place] [address] Dermatology 05/13/18 Romie Cueto (Hist) [address] [place] [address] Cardiology 05/13/18 Stacey, [place] S [address] [place] [address] Physician Cardiology 07/11/18 Master Ocean Relationship Specialty Start Date End Date Tony Soares MD [address] [place] [address] PCP - General Family Medicine 08/14/16 Felton Yancey [address] [place] [address] Pain Management 05/13/18 Ender Lucio [address] [place] [address] Dermatology 05/13/18 Romie Cueto (Hist) [address] [place] [address] Cardiology 05/13/18 Stacey, Levy S [address] [place] [address] Physician Cardiology 07/11/18 Master Ocean Relationship Specialty Start Date End Date Tony Soares MD [address] [place] [address] PCP - General Family Medicine 08/14/16 Felton Yancey [address] [place] [address] Pain Management 05/13/18 Ender Lucio [address] [place] [address] Dermatology 05/13/18 Romie Cueto (Hist) [address] [place] [address] Cardiology 05/13/18 Stacey, [place] S [address] [place] [address] Physician Cardiology 07/11/18 Master Ocean Relationship Specialty Start Date End Date Tony Soares MD [address] [place] [address] PCP - General Family Medicine 08/14/16 Felton Yancey [address] [place] [address] Pain Management 05/13/18 Ender Lucio [address] [place] [address] Dermatology 05/13/18 Romie Cueto [address] [place] [address] Cardiology 05/13/18 Stacey, Levy S [address] [place] [address] Physician Cardiology 07/11/18 Master Ocean Relationship Specialty Start Date End Date Tony Soares MD [address] [place] [address] PCP - General Family Medicine 08/14/16 Felton Yancey [address] [place] [address] Pain Management 05/13/18 Ender Lucio [address] [place] [address] Dermatology 05/13/18 Romie Cueto [address] [place] [address] Cardiology 05/13/18 Stacey, Levy S [address] [place] [address] Physician Cardiology 07/11/18 Master Ocean Relationship Specialty Start Date End Date Tony Soares MD [address] [place] [address] PCP - General Family Medicine 08/14/16 Felton Yancey [address] [place] [address] Pain Management 05/13/18 Ender Lucio [address] [place] [address] Dermatology 05/13/18 Romie Cueto [address] [place] [address] Cardiology 05/13/18 Stacey, [place] S [address] [place] [address] Physician Cardiology 07/11/18 Master Ocean Relationship Specialty Start Date End Date Tony Soares MD [address] [place] [address] PCP - General Family Medicine 08/14/16 Felton Yancey [address] [place] [address] Pain Management 05/13/18 Ender Lucio [address] [place] [address] Dermatology 05/13/18 Romie Cueto [address] [place] [address] Cardiology 05/13/18 Stacey, Levy S [address] [place] [address] Physician Cardiology 07/11/18 Master Ocean Relationship Specialty Start Date End Date Tony Soares MD [address] [place] [address] PCP - General Family Medicine 08/14/16 Felton Yancey [address] [place] [address] Pain Management 05/13/18 Ender Lucio [address] [place] [address] Dermatology 05/13/18 Romie Cueto [address] [place] [address] Cardiology 05/13/18 Stacey, Levy S [address] [place] [address] Physician Cardiology 07/11/18 Master Ocean Relationship Specialty Start Date End Date Tony Soares MD [address] [place] [address] PCP - General Family Medicine 08/14/16 Felton Yancey [address] [place] [address] Pain Management 05/13/18 Ender Lucio [address] [place] [address] Dermatology 05/13/18 Romie Cueto [address] [place] [address] Cardiology 05/13/18 Stacey, [place] S [address] [place] [address] Physician Cardiology 07/11/18 Master Ocean Relationship Specialty Start Date End Date Tony Soares MD [address] [place] [address] PCP - General Family Medicine 08/14/16 Felton Yancey [address] [place] [address] Pain Management 05/13/18 Ender Lucio [address] [place] [address] Dermatology 05/13/18 Romie Cueto [address] [place] [address] Cardiology 05/13/18 Stacey, Levy S [address] [place] [address] Physician Cardiology 07/11/18 Master Ocean Relationship Specialty Start Date End Date Tony Soares MD [address] [place] [address] PCP - General Family Medicine 08/14/16 Felton Yancey [address] [place] [address] Pain Management 05/13/18 Ender Lucio [address] [place] [address] Dermatology 05/13/18 Romie Cueto [address] [place] [address] Cardiology 05/13/18 Levy Ibarra [address] [place] [address] Physician Cardiology 07/11/18 Master Ocean Relationship Specialty Start Date End Date Tony Soares MD [address] [facility] [place] [address] PCP - General Family Medicine 08/14/16 Felton Yancey [address] [place] [address] Pain Management 05/13/18 Ender Lucio [address] [place] [address] Dermatology 05/13/18 Romie Cueto [address] [place] [address] Cardiology 05/13/18 Levy Ibarra [address] [place] [address] Physician Cardiology 07/11/18 Master Ocean Relationship Specialty Start Date End Date Tony Soares MD [address] [place] [address] PCP - General Family Medicine 08/14/16 Felton Yancey MD [address] [place] [address] Pain Management 05/13/18 Ender Lucio MD [address] [place] [address] Dermatology 05/13/18 Romie Cueto [address] [place] [address] Cardiology 05/13/18 Levy Ibarra MD [address] [place] [address] Physician Cardiology 07/11/18 Master Ocean Relationship Specialty Start Date End Date Tony Soares MD [address] [place] [address] PCP - General Family Medicine 08/14/16 Felton Yancey MD [address] [place] [address] Pain Management 05/13/18 Ender Lucio MD [address] [place] [address] Dermatology 05/13/18 Romie Cueto [address] [place] [address] Cardiology 05/13/18 Levy Ibarra MD [address] [place] [address] Physician Cardiology 07/11/18 Master Ocean Relationship Specialty Start Date End Date Tony Soares MD [address] [place] [address] PCP - General Family Medicine 08/14/16 Felton Yancey MD [address] [facility] [place] [address] Pain Management 05/13/18 Ender Lucio MD [address] [place] [address] Dermatology 05/13/18 Romie Cueto [address] [place] [address] Cardiology 05/13/18 Levy Ibarra MD [address] [place] [address] Physician Cardiology 07/11/18 Master Ocean Relationship Specialty Start Date End Date Tony Soares MD [address] [facility] [place] [address] PCP - General Family Medicine 08/14/16 Felton Yancey MD [address] [place] [address] Pain Management 05/13/18 Ender Lucio MD [address] [place] [address] Dermatology 05/13/18 Romie Cueto [address] [place] [address] (Fax) Cardiology 05/13/18 Levy Ibarra MD [address] [facility] [address] [place] [address] Physician Cardiology 07/11/18 Master Ocean Relationship Specialty Start Date End Date Tony Soares MD [address] [place] [address] PCP - General Family Medicine 08/14/16 Felton Yancey MD [address] [facility] [place] [address] Pain Management 05/13/18 Ender Lucio MD [address] [place] [address] Dermatology 05/13/18 Romie Cueto [address] [place] [address] Cardiology 05/13/18 Levy Ibarra MD [address] [place] [address] Physician Cardiology 07/11/18 Master Ocean Relationship Specialty Start Date End Date Tony Soares MD [address] [place] [address] PCP - General Family Medicine 08/14/16 Felton Yancey MD [address] [address] Pain Management 05/13/18 Ender Lucio MD [address] [place] [place] [address] Dermatology 05/13/18 Romie Cueto [address] [place] [place] [address] Cardiology 05/13/18 Levy Ibarra MD [address] [address] Physician Cardiology 07/11/18 Master Ocean Relationship Specialty Start Date End Date Tony Soares MD [address] [place] [address] PCP - General Family Medicine 08/14/16 Felton Yancey MD [address] [address] Pain Management 05/13/18 Ender Lucio MD [address] [place] [place] [address] Dermatology 05/13/18 Romie Cueto [address] [place], [place] [address] Cardiology 05/13/18 Levy Ibarra MD [address] [address] Physician Cardiology 07/11/18 Master Ocean Relationship Specialty Start Date End Date Tony Soares MD [address] [place] [address] PCP - General Family Medicine 08/14/16 Felton Yancey MD [address] [address] Pain Management 05/13/18 Ender Lucio MD [address] [place] [place] [address] Dermatology 05/13/18 Romie Cueto [address] [place] [place] [address] Cardiology 05/13/18 Levy Ibarra MD [address] [address] Physician Cardiology 07/11/18 INFORMATION SOURCE (unrecogn ized section and content) FOR RECORDS PERTAINING TO PATIENTS WHO ARE OR HAVE BEEN ENROLLED IN A CHEMICAL DEPENDENCY/SUBSTANCEABUSE PROGRAM, SOME INFORMATION MAY BE OMITTED. This clinical summary was aggregated from multiple sources. Caution should be exercised in using it in the provision of clinical care. This summary normalizes information from multiple sources, and as a consequence, information in this document may materially change the coding, format and clinical context of patient data. In addition, data may be omitted in some cases. CLINICAL DECISIONS SHOULD BE BASED ON THE PRIMARY CLINICAL RECORDS. [facility]. provides no warranty or guarantee of the accuracy or completeness of information in this document.
== END | disposition home or self-care (01) ==
PROVIDERS: PCP Family Medicine; Referring Provider Nurse Practitioner Family; Visit Provider Nurse Practitioner Family
DX: I27.21 Secondary pulmonary arterial hypertension (principal); R06.09 Other forms of dyspnea; I35.0 Nonrheumatic aortic (valve) stenosis; I34.0 Nonrheumatic mitral (valve) insufficiency; I10 Essential (primary) hypertension; E78.5 Hyperlipidemia, unspecified
CPT/HCPCS: 93306

== ENCOUNTER → 2023-05-14 | Outpatient (CLI) | payer MEDICARE, OTHER, SELFPAY ==
--- OUTSIDE RECORDS SUMMARY | 2023-05-14 13:02 | XMS RPT_ITS | CCD ---
Author Name Unknown Address [address] [place] [address] Organization [facility] Care Team Providers Care Car Racer Name Role Phone Tony Soares MD Primary [...] oxyCODONE; Translations: [OXYCODONE] Drug Allergy 03-11-2017 Itching [facility] Medications Current Medications Medication Drug Class(es) [...] 10:31-0500 Body temperature 98.29 [degF] Topher Podlogar AUXILIARY EQUIPMENT TENDER.SLATE ROOFER Work Phone: [facility] 03-31-2023 10:31-0500 Body weight 67.31 kg Topher Podlogar AUXILIARY EQUIPMENT TENDER.SLATE ROOFER Work Phone: [facility] 03-31-2023 10:31-0500 Diastolic blood pressure 84 mm[Hg] Topher Podlogar AUXILIARY EQUIPMENT TENDER.SLATE ROOFER Work Phone: [facility] 03-31-2023 10:31-0500 Heart rate 95 /min Topher Podlogar AUXILIARY EQUIPMENT TENDER.SLATE ROOFER Work Phone: [facility] 03-31-2023 10:31-0500 Respiratory rate 20 /min Topher Podlogar AUXILIARY EQUIPMENT TENDER.SLATE ROOFER Work Phone: [facility] 03-31-2023 10:31-0500 SaO2% (BldA) [Mass fraction] 98 % Topher Podlogar AUXILIARY EQUIPMENT TENDER.SLATE ROOFER Work Phone: [facility] 03-31-2023 10:31-0500 Systolic blood pressure 138 mm[Hg] Topher Podlogar AUXILIARY EQUIPMENT TENDER.SLATE ROOFER Work Phone: [facility] 03-15-2023 13:47-0500 Body weight 68.58 kg Tony Soares MD Work Phone: [facility] 03-15-2023 13:47-0500 Diastolic blood pressure 74 mm[Hg] Tony Soares MD Work Phone: [facility] 03-15-2023 13:47-0500 Heart rate 77 /min Tony Soares MD Work Phone: [facility] 03-15-2023 13:47-0500 Respiratory rate 16 /min Tony Soares MD Work Phone: [facility] 03-15-2023 13:47-0500 SaO2% (BldA) [Mass fraction] 97 % Tony Soares MD Work Phone: [facility] 03-15-2023 13:47-0500 Systolic blood pressure 118 mm[Hg] Tony Soares MD Work Phone: [facility] 03-05-2023 18:35-0400 Body weight 67.5 kg Topher Podlogar AUXILIARY EQUIPMENT TENDER.SLATE ROOFER Work Phone: [facility] 03-05-2023 18:35-0400 Diastolic blood pressure 68 mm[Hg] Topher Podlogar AUXILIARY EQUIPMENT TENDER.SLATE ROOFER Work Phone: [facility] 03-05-2023 18:35-0400 Heart rate 64 /min Topher Podlogar AUXILIARY EQUIPMENT TENDER.SLATE ROOFER Work Phone: [facility] 03-05-2023 18:35-0400 Respiratory rate 16 /min Topher Podlogar AUXILIARY EQUIPMENT TENDER.SLATE ROOFER Work Phone: [facility] 03-05-2023 18:35-0400 SaO2% (BldA) [Mass fraction] 98 % Topher Podlogar AUXILIARY EQUIPMENT TENDER.SLATE ROOFER Work Phone: [facility] 03-05-2023 18:35-0400 Systolic blood pressure 140 mm[Hg] Topher Podlogar AUXILIARY EQUIPMENT TENDER.SLATE ROOFER Work Phone: [facility] 02-08-2023 08:01-0400 Body weight 65.77 kg Tony Soares MD Work Phone: [facility] 02-08-2023 08:01-0400 Diastolic blood pressure 60 mm[Hg] Tony Soares MD Work Phone: [facility] 02-08-2023 08:01-0400 Heart rate 60 /min Tony Soares MD Work Phone: [facility] 02-08-2023 08:01-0400 Respiratory rate 16 /min Tony Soares MD Work Phone: [facility] 02-08-2023 08:01-0400 SaO2% (BldA) [Mass fraction] 96 % Tony Soares MD Work Phone: [facility] 02-08-2023 08:01-0400 Systolic blood pressure 104 mm[Hg] Tony Soares MD Work Phone: [facility] 10-14-2022 15:46-0400 Body temperature 98.6 [degF] Topher Podlogar AUXILIARY EQUIPMENT TENDER.SLATE ROOFER Work Phone: [facility] 10-14-2022 15:46-0400 Body weight 67.77 kg Topher Podlogar AUXILIARY EQUIPMENT TENDER.SLATE ROOFER Work Phone: [facility] 10-14-2022 15:46-0400 Diastolic blood pressure 68 mm[Hg] Topher Podlogar AUXILIARY EQUIPMENT TENDER.SLATE ROOFER Work Phone: [facility] 10-14-2022 15:46-0400 Heart rate 76 /min Topher Podlogar AUXILIARY EQUIPMENT TENDER.SLATE ROOFER Work Phone: [facility] 10-14-2022 15:46-0400 Respiratory rate 16 /min Topher Podlogar AUXILIARY EQUIPMENT TENDER.SLATE ROOFER Work Phone: [facility] 10-14-2022 15:46-0400 SaO2% (BldA) [Mass fraction] 96 % Topher Podlogar AUXILIARY EQUIPMENT TENDER.SLATE ROOFER Work Phone: [facility] 10-14-2022 15:46-0400 Systolic blood pressure 130 mm[Hg] Topher Podlogar AUXILIARY EQUIPMENT TENDER.SLATE ROOFER Work Phone: [facility] 09-07-2022 13:57-0400 Body weight 67.13 kg Tony Soares MD Work Phone: [facility] 09-07-2022 13:57-0400 Diastolic blood pressure 78 mm[Hg] Tony Soares MD Work Phone: [facility] 09-07-2022 13:57-0400 Heart rate 72 /min Tony Soares MD Work Phone: [facility] 09-07-2022 13:57-0400 Respiratory rate 14 /min Tony Soares MD Work Phone: [facility] 09-07-2022 13:57-0400 Systolic blood pressure 136 mm[Hg] Tony Soraes MD Work Phone: [facility] 03-04-2022 13:31-0400 Body weight 66.22 kg Topher Podlogar AUXILIARY EQUIPMENT TENDER.SLATE ROOFER Work Phone: [facility] 03-04-2022 13:31-0400 Diastolic blood pressure 68 mm[Hg] Topher Podlogar AUXILIARY EQUIPMENT TENDER.SLATE ROOFER Work Phone: [facility] 03-04-2022 13:31-0400 Heart rate 78 /min Topher Podlogar AUXILIARY EQUIPMENT TENDER.SLATE ROOFER Work Phone: [facility] 03-04-2022 13:31-0400 Respiratory rate 16 /min Topher Podlogar AUXILIARY EQUIPMENT TENDER.SLATE ROOFER Work Phone: [facility] 03-04-2022 13:31-0400 SaO2% (BldA) [Mass fraction] 95 % Topher Podlogar AUXILIARY EQUIPMENT TENDER.SLATE ROOFER Work Phone: [facility] 03-04-2022 13:31-0400 Systolic blood pressure 138 mm[Hg] Topher Podlogar AUXILIARY EQUIPMENT TENDER.SLATE ROOFER Work Phone: [facility] 01-03-2022 12:29-0400 Body temperature 98.2 [degF] Celia David AUXILIARY EQUIPMENT TENDER.SLATE ROOFER Work Phone: [facility] 01-03-2022 12:29-0400 Body weight 66.68 kg Celia David AUXILIARY EQUIPMENT TENDER.SLATE ROOFER Work Phone: [facility] 01-03-2022 12:29-0400 Diastolic blood pressure 68 mm[Hg] Celia David AUXILIARY EQUIPMENT TENDER.SLATE ROOFER Work Phone: [facility] 01-03-2022 12:29-0400 Heart rate 65 /min Celia David AUXILIARY EQUIPMENT TENDER.SLATE ROOFER Work Phone: [facility] 01-03-2022 12:29-0400 Respiratory rate 16 /min Celia David AUXILIARY EQUIPMENT TENDER.SLATE ROOFER Work Phone: [facility] 01-03-2022 12:29-0400 SaO2% (BldA) [Mass fraction] 97 % Celia David APRN.SLATE ROOFER Work Phone: [facility] 01-03-2022 12:29-0400 Systolic blood pressure 112 mm[Hg] Celia David APRN.SLATE ROOFER Work Phone: [facility] 12-22-2021 16:32-0400 Body temperature 98.6 [degF] Tony Soares MD Work Phone: [facility] 12-22-2021 16:32-0400 Diastolic blood pressure 60 mm[Hg] Tony Soares MD Work Phone: [facility] 12-22-2021 16:32-0400 Heart rate 67 /min Tony Soares MD Work Phone: [facility] 12-22-2021 16:32-0400 Respiratory rate 16 /min Tony Soares MD Work Phone: [facility] 12-22-2021 16:32-0400 SaO2% (BldA) [Mass fraction] 99 % Tony Soares MD Work Phone: [facility] 12-22-2021 16:32-0400 Systolic blood pressure 122 mm[Hg] Tony Soares MD Work Phone: [facility] 12-18-2021 14:36-0400 Body temperature 98.8 [degF] Tony Soares MD Work Phone: [facility] 12-18-2021 14:36-0400 Body weight 67.68 kg Tony Soares MD Work Phone: [facility] 12-18-2021 14:36-0400 Diastolic blood pressure 62 mm[Hg] Tony Soares MD Work Phone: [facility] 12-18-2021 14:36-0400 Heart rate 64 /min Tony Soares MD Work Phone: [facility] 12-18-2021 14:36-0400 Respiratory rate 16 /min Tony Soares MD Work Phone: [facility] 12-18-2021 14:36-0400 Systolic blood pressure 104 mm[Hg] Tony Soares MD Work Phone: [facility] 09-24-2021 15:23-0400 Body weight 66.68 kg Tony Soares MD Work Phone: [facility] 09-24-2021 15:23-0400 Diastolic blood pressure 80 mm[Hg] Tony Soares MD Work Phone: [facility] 09-24-2021 15:23-0400 Heart rate 72 /min Tony Soares MD Work Phone: [facility] 09-24-2021 15:23-0400 Respiratory rate 14 /min Tony Soares MD Work Phone: [facility] 09-24-2021 15:23-0400 Systolic blood pressure 124 mm[Hg] Tony Soares MD Work Phone: [facility] 09-01-2021 11:04-0400 Body weight 68.13 kg Tony Soares MD Work Phone: [facility] 09-01-2021 11:04-0400 Diastolic blood pressure 58 mm[Hg] Tony Soares MD Work Phone: [facility] 09-01-2021 11:04-0400 Heart rate 64 /min Tony Soares MD Work Phone: [facility] 09-01-2021 11:04-0400 Respiratory rate 18 /min Tony Soares MD Work Phone: [facility] 09-01-2021 11:04-0400 SaO2% (BldA) [Mass fraction] 98 % Tony Soares MD Work Phone: [facility] 09-01-2021 11:04-0400 Systolic blood pressure 112 mm[Hg] Tony Soares MD Work Phone: [facility] Encounters Encounter Date Encounter Type Care Provider Facility Start: 04-12-2023 Refill Tony Soares MD Work Phone: [facility] Procedures Date Procedure Procedure Detail Performing Clinician Start: 10-14-2022 Urnls dip stick/tabl et rgnt auto w/o microscopy Topher Colon APRN.CNP Work Phone: Start: 01-03-2022 Urnls dip stick/tabl et rgnt auto w/o microscopy Atif Kellogg MD Work Phone: Plan of Treatment Date Care Activity Detail Author Start: 07-08-2031 Urine microalbumin profile [facility] Start: 02-23-2026 [facility] Start: 09-04-2025 DIABETES SCREEN DIABETES SCREEN [facility] Start: 09-04-2025 [facility] Start: 08-17-2025 DIABETES SCREEN DIABETES SCREEN [facility] Start: 09-01-2024 DIABETES SCREEN DIABETES SCREEN [facility] Start: 02-19-2024 DIABETES SCREEN DIABETES SCREEN [facility] Start: 02-09-2024 Covid-19 Vaccine ( season) Covid-19 Vaccine () [facility] Immunizations Immunization Date Immunization Notes Care Provider Rupinder [email or web address] 03-17-2023 respiratory syncytia l virus (RSV) vaccine, unspecified formulation Tony Soares MD Work Phone: [facility] 03-15-2023 pneumococcal Conjuga te, unspecified formulation Tony Soares MD Work Phone: [facility] Work Phone: 03-15-2023 pneumococcal (PCV20) vaccine, 20 valent (PREVNAR 20) Tony Soares MD Work Phone: [facility] 07-07-2021 tetanus toxoid, redu andrea diphtheria toxoid, and acellular pertussis vaccine, adsorbed Tony Soares MD Work Phone: [facility] 09-13-2020 COVID-19 vaccine, ag e 12+ yr ([employer] [facility]) Tony Soares MD Work Phone: [facility] 08-30-2018 zoster vaccine recombinant Tony Soares MD Work Phone: [facility] 02-15-2018 influenza virus vaccine, unspecified formulation Tony Soares MD Work Phone: [facility] 12-11-2017 zoster vaccine recombinant Tony Soares MD Work Phone: [facility] 12-07-2017 zoster vaccine recombinant Tony Soares MD Work Phone: [facility] 02-15-2017 influenza, high dose seasonal, preservative-free Tony Soares MD Work Phone: [facility] 12-08-2008 pneumococcal polysaccharide vaccine, 23 valent Tony Soares MD Work Phone: [facility] Payers Date Payer Category Payer Unknown HOSPITAL/MEDICAL GENERIC MEDICAL GENERIC [id number] 2014-Present [phone] [address] [facility] [place] [address] Indemnity [id number] 2014 Unknown HOSPITAL/MEDICAL GENERIC MEDICAL GENERIC [id number] 2014-Present [phone] [facility] [place] [address] Indemnity [id number] 2014 Unknown [id number] 2004 Medicare MEDICARE MEDICAR E A AND B [id number] 2004-Present [phone] [place] [address] Medicare [id number] 2004 Medicare MEDICARE MEDICAR E A AND B [id number] 2004-Present [phone] [place] [address] Medicare [id number] 2004 Medicare [id number] Social History Date Type Detail Facility Start: 05-13-2016 End: 12-18-2021 Tobacco smoking status NHIS Ex-smoker [facility] End: 05-03-1988 History of tobacco use Current smoker [facility] Start: 05-13-2016 End: 09-07-2022 Cigarettes smoked current (pack per day) - Reported 0.5 [facility] Start: 05-13-2016 End: 12-18-2021 Tobacco use and exposure Smokeless tobacco non-user [facility] Start: 07-21-2021 End: 03-31-2023 Alcohol intake Current non-drinker of alcohol (finding) [facility] Start: 01-24-2018 History SDOH Alcohol Frequency 1 [facility] Start: 01-24-2018 History SDOH Social Connections Phone 5 [facility] Start: 01-24-2018 History SDOH Social Connections Living 4 [facility] Start: 01-24-2018 History SDOH Transpo rt Med 2 [facility] Start: 01-24-2018 Education 13 [facility] Start: 1940 Sex Assigned At Not on file [facility] Start: 07-11-2021 End: 12-22-2021 Exposure to SARS-CoV-2 (event) Not sure [facility] End: 05-03-1988 History of tobacco use Cigarette Smoker [facility] Start: 01-24-2018 End: 09-07-2022 Social connection and isolation panel [facility] Attends [employer] Not on file [facility] Work Phone: Are you now , , , , never or living with a partner? [facility] How often to you hav e a drink containing alcohol? Never [facility] Do you feel stress - tense, restless, nervous, or anxious, or unable to sleep at night because your mind is troubled all the time - these days [OSQ] Not at all [facility] (I/We) worried wheth er (my/our) food would run out before (I/we) got money to buy more. Never true [facility] Goals Date Patient Goal Desired Activity [...] Lo Cardoso Pss documented in this encounter [facility] 03-31-2023 Note HNO ID: [id number] Author: Topher Colon APRN.SLATE ROOFER Service: ? Author Type: Nurse Practitioner Type: [...] Drop in both eyes once daily. vit C,H-Wx-ubaly-lutein-zeaxan (PRESERVISION AREDS-2) 250-90-40-1 mg Take 1 tablet [...] ER with red flag symptoms Topher Podlogar, AUXILIARY EQUIPMENT TENDER.SLATE ROOFER Prescription instructions reviewed with patient as applicable. Patient advised if symptoms do not improve or if symptoms worsen sooner, to contact their primary care physician. Potential red flag symptoms discussed with the patient. Reviewed appropriate action plan to take if red flag symptoms occur. Patient agreeable to treatment plan. (more content not included)... [facility] 03-31-2023 Instructions Topher Colon APRN.CNP - 03/31/2023 10:42 AM EST May take mucinex over the counter as directed on package May use coricidin over the counter as directed on packaging documented in this encounter [facility] 03-31-2023 History of Presen t illness [...] Drop in both eyes once daily. vit C,B-Rt-cttqk-lutein-zeaxan (PRESERVISION AREDS-2) 250-90-40-1 mg Take 1 tablet [...] ER with red flag symptoms Topher Colon APRN.SLATE ROOFER Prescription instructions reviewed with patient as applicable. [...] which included preparing to see the patient, [id number] patient care, completing clinical documentation, obtaining and/or reviewing separately obtained history, performing a medically appropriate examination, and counseling and educating the patient/family/caregiver. documented in this encounter [facility] 03-18-2023 Miscellaneous Notes Patient returned call [...] recommendations. Patient transferred to this nurse from [facility]. Patient concerned about a recent BP reading of 167/97 (82). Patient very worried it is too high. Reports no symptoms and states I feel fine. Patient denies CP, SOB, dizziness, numbness, no fever. Reports this morning BP was 113/63, yesterday BP 106/61. Reports she received an RSV vaccine today at [facility]. Reports she received a pneumonia [...] numbness. Patient agreeable. documented in this encounter [facility] 03-15-2023 Note HNO ID: [id number] Author: Tony Soares MD Service: ? Author [...] Drop in both eyes once daily. vit C,F-Ql-pqnfv-lutein-zeaxan (PRESERVISION AREDS-2) 250-90-40-1 mg Take 1 tablet [...] 25.95 kg/m? G (more content not included)... [facility] 03-15-2023 Instructions Tony Soares MD - 03/15/2023 2:17 PM EST Please follow up with your pharmacy for your RSV vaccine. documented in this encounter [facility] 03-15-2023 History of Presen t illness [...] Drop in both eyes once daily. vit C,S-Xu-qjtik-lutein-zeaxan (PRESERVISION AREDS-2) 250-90-40-1 mg Take 1 tablet [...] Abs Lymph 1.00 - 4.00 k/uL 1.41 Clinch% % 10.5 Abs Clinch <0.87 k/uL 0.61 Eosin% % 0.9 Abs [...] Tony Soares MD documented in this encounter [facility] 03-05-2023 Note HNO ID: [id number] Author: Topher Colon APRN.SLATE ROOFER Service: ? Author Type: Nurse Practitioner Type: [...] Drop in both eyes once daily. vit C,U-Uj-uwgrr-lutein-zeaxan (PRESERVISION AREDS-2) 250-90-40-1 mg Take 1 tablet [...] Completed Depression Assess (more content not included)... [facility] 03-05-2023 History of Presen t illness Narrative [...] Drop in both eyes once daily. vit C,G-Tt-vfcxn-lutein-zeaxan (PRESERVISION AREDS-2) 250-90-40-1 mg Take 1 tablet [...] which included preparing to see the patient, [id number] patient care, completing clinical documentation, obtaining and/or reviewing separately obtained history, performing a medically appropriate examination, and counseling and educating the patient/family/caregiver. documented in this encounter [facility] 03-05-2023 Miscellaneous Notes Pt states she has her BP cuff with her. Please have patient bring her home blood pressure cuff to appointment today. Topher Colon APRN.CNP documented in this encounter [facility] 02-24-2023 Miscellaneous Notes Patient returned call and went over results, notes from Dr Soares with understanding. Message left for patient to call office back for update. Lillie Hu LPN ----- Message from Tony Soares MD sent at 02/24/2023 8:02 AM EDT ----- Labs are stable/unremarkable. Iron levels normal. No anemia. No changes to regimen. documented in this encounter [facility] 02-23-2023 Note HNO ID: [id number] Author: Tony Soares MD Service: ? Author [...] Drop in both eyes once daily. vit C,D-Pe-dgboc-lutein-zeaxan (PRESERVISION AREDS-2) 250-90-40-1 mg Take 1 tablet [...] lesions. Lungs: Xenia (more content not included)... [facility] 02-18-2023 Miscellaneous Notes Pt calling in very [...] Pt verbalizes understanding. documented in this encounter [facility] 02-17-2023 Miscellaneous Notes Call placed to [...] held losartan. 6:16am 133/77. Pt went to [facility] to have endoscopy & BP there was 137/? Pt doesn't remember what the diastolic was. Today after lunch (20 mins before calling) BP was 168/73, pt states she will take losartan. Pt states she feels great! Instructions from pcp from phone note yesterday gone over again with pt. Beatriz Allison LPN documented in this encounter [facility] 02-16-2023 Miscellaneous Notes Phoned patient and [...] week bp check. documented in this encounter [facility] 02-08-2023 Note HNO ID: [id number] Author: Tony Soares MD Service: ? Author [...] Drop in both eyes once daily. vit C,H-Gy-vjxhx-lutein-zeaxan (PRESERVISION AREDS-2) 250-90-40-1 mg Take 1 tablet [...] alert, in n (more content not included)... [facility] 02-08-2023 Instructions Tony Soares MD - 02/08/2023 8:29 AM EDT Call with high blood pressure readings above 140/90 or low less than 100/60. documented in this encounter [facility] 02-08-2023 History of Presen t illness [...] Drop in both eyes once daily. vit C,M-Bz-qkrbh-lutein-zeaxan (PRESERVISION AREDS-2) 250-90-40-1 mg Take 1 tablet [...] Tony Soares MD documented in this encounter [facility] 02-05-2023 Miscellaneous Notes Phoned patient and [...] 120 mg once daily Pt last saw Insurance Account Representative, Dr. Ibarra on 11/10/22. She states at [...] patient. Thank you. documented in this encounter [facility] 02-05-2023 Miscellaneous Notes Opened in error. Lynette Aguillon RN documented in this encounter [facility] 12-10-2022 Miscellaneous Notes Phoned patient and [...] call and advise. documented in this encounter [facility] 10-19-2022 Miscellaneous Notes Reviewed. Topher Colon [...] Topher Colon APRN.CNP documented in this encounter [facility] 10-16-2022 Miscellaneous Notes Phoned patient and [...] Topher Colon APRN.CNP documented in this encounter [facility] 10-16-2022 Miscellaneous Notes Pt returned call to office. See other TE. 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 Will try back later. Lillie Hu LPN Please call patient and let her know her urine culture is still pending. How is she feeling today? Topher Colon APRN.COY documented in this encounter [facility] 10-14-2022 Note HNO ID: [id number] Author: Topher Colon APRN.CNP Service: ? Author [...] Drop in both eyes once daily. vit C,H-Ul-fwico-lutein-zeaxan (PRESERVISION AREDS-2) 250-90-40-1 mg Take 1 tablet [...] flag symptoms Stephanie (more content not included)... [facility] 10-14-2022 Instructions Topher Colon APRN.CNP - 10/14/2022 4:00 PM EDT If you develop persistent pain with urination, increasing urgency/frequency, fever, confusion, abdominal pain, back pain or vomiting notify office documented in this encounter [facility] 10-14-2022 History of Presen t illness [...] Drop in both eyes once daily. vit C,L-Bb-grpnx-lutein-zeaxan (PRESERVISION AREDS-2) 250-90-40-1 mg Take 1 tablet [...] if develops red flag symptoms Topher Podlogkenny, ALVIN.SLATE ROOFER Prescription instructions reviewed with patient as applicable. [...] which included preparing to see the patient, [id number] patient care, completing clinical documentation, obtaining and/or reviewing separately obtained history, performing a medically appropriate examination, counseling and educating the patient/family/caregiver, and ordering medications, tests, or procedures. documented in this encounter [facility] 09-14-2022 Miscellaneous Notes Pt calls to report that Dr. Ng's office stated they did not receive orders to gastro that were faxed 09/09/22. Orders, OV notes, Results faxed to : [phone]. Marguerite Ngo LPN documented in this encounter [facility] 09-09-2022 Miscellaneous Notes Pt called and requested referral and supportive information for Gastro referral be faxed to Dr. Ng at [facility]. Fax number [phone]. Done Pt will call to schedule apt. Meme Gant LPN documented in this encounter [facility] 09-07-2022 Note HNO ID: [id number] Author: Tony Soares MD Service: ? Author [...] Drop in both eyes once daily. vit C,E-Sj-jixzf-lutein-zeaxan (PRESERVISION AREDS-2) 250-90-40-1 mg Take 1 tablet [...] Negative for lesions, (more content not included)... [facility] documented as of this encounter (statuses as of 09/08/2022) [facility]08[facility]2023 History of Past illness Narrative* Problem Noted Date Resolved Date Melanoma 09/07/2022 documented as of this encounter (statuses as of 09/09/2022) [facility]05-08-2023 History of Past illness Narrative* Problem Noted Date Resolved Date Melanoma 09/07/2022 documented as of this encounter (statuses as of 09/14/2022) [address]08-2023 History of Past illness Narrative* Problem Noted Date Resolved Date Melanoma 09/07/2022 documented as of this encounter (statuses as of 10/15/2022) [address] [address] History of Past illness Narrative* Problem Noted Date Resolved Date Melanoma 09/07/2022 documented as of this encounter (statuses as of 10/16/2022) [facility]05-08[facility] History of Past illness Narrative* Problem Noted Date Resolved Date Melanoma 09/07/2022 documented as of this encounter (statuses as of 10/23/2022) [facility] History of Past illness Narrative* Problem Noted Date Diagnosed Date Resolved Date Melanoma 09/07/2022 documented as of this encounter (statuses as of 12/11/2022) [address]08[address]23 History of Past illness Narrative* Problem Noted Date Diagnosed Date Resolved Date Melanoma 09/07/2022 documented as of this encounter (statuses as of 02/06/2023) [address]08[address]23 History of Past illness Narrative* Problem Noted Date Diagnosed Date Resolved Date Melanoma 09/07/2022 documented as of this encounter (statuses as of 02/09/2023) [address]08[address]23 History of Past illness Narrative* Problem Noted Date Diagnosed Date Resolved Date Melanoma 09/07/2022 documented as of this encounter (statuses as of 02/17/2023) [address]08[address]23 History of Past illness Narrative* Problem Noted Date Diagnosed Date Resolved Date Melanoma 09/07/2022 documented as of this encounter (statuses as of 02/18/2023) [address]23 History of Past illness Narrative* Problem Noted Date Diagnosed Date Resolved Date Melanoma 09/07/2022 documented as of this encounter (statuses as of 02/24/2023) [address]23 History of Past illness Narrative* Problem Noted Date Diagnosed Date Resolved Date Melanoma 09/07/2022 documented as of this encounter (statuses as of 03/06/2023) [address]23 History of Past illness Narrative* Problem Noted Date Diagnosed Date Resolved Date Melanoma 09/07/2022 documented as of this encounter (statuses as of 03/06/2023) [facility] History of Past illness Narrative* Problem Noted Date Diagnosed Date Resolved Date Melanoma 09/07/2022 documented as of this encounter (statuses as of 03/18/2023) [facility] History of Past illness Narrative* Problem Noted Date Diagnosed Date Resolved Date Melanoma 09/07/2022 documented as of this encounter (statuses as of 03/21/2023) [facility] History of Past illness Narrative* Problem Noted Date Diagnosed Date Resolved Date Melanoma 09/07/2022 documented as of this encounter (statuses as of 03/31/2023) [facility] History of Past illness Narrative* Problem Noted Date Diagnosed Date Resolved Date Melanoma 09/07/2022 documented as of this encounter (statuses as of 04/13/2023) [facility] History of Present illness Narrative* Tony [...] Drop in both eyes once daily. vit C,H-Qi-htjve-lutein-zeaxan (PRESERVISION AREDS-2) 250-90-40-1 mg Take 1 tablet [...] Abs Lymph 1.00 - 4.00 k/uL 2.43 Clinch% % 10.5 Abs Clinch <0.87 k/uL 0.95 (H) Eosin% % 4.9 [...] months. Tony Soares MD documented [facility] encounter[facility]04[facility] Miscellaneous Notes* Telephone Encounter - YOSEPH [...] adhesions or bowel obstruction. documented in this encounterFort [facility]04-[facility]-2023 NoteHNO ID: [id number] Author: RT Talita(R) Service: ? Author Type: Pharmacy Care Coordinator Type: Progress Notes Filed: 08/20/2022 3:52 PM [...] [place] DATE: August 20, 2022 TIME: 3:52 [facility]04-17-2023 NoteHNO ID: [id number] Author: Tony Soares MD Service: ? Author [...] bilateral s/p removal Chronic urticaria seeing Dr. Cadr Concussion 05/2015 fell off step stool COVID-19 [...] Drop in both eyes once daily. vit C,Z-My-yzdkv-lutein-zeaxan (PRESERVISION AREDS-2) 250-90-40-1 mg Take 1 tablet [...] auscultation. No wheezing, rhonchi (more content not included)...[facility]04-10-2023 Miscellaneous Notes* Telephone Encounter - Elizabeth Alatorre [...] office. Elizabeth Alatorre MA documented in this encounterFort [facility]03-[facility] Miscellaneous Notes* Telephone Encounter - Dominguez [...] notify patient. Mary Snow documented in this encounterFort [facility]03-[facility]23 Miscellaneous Notes* Telephone Encounter - Tania Arreaga Cma - 07/07/2022 9:38 AM EST Patient notified and verbalized understanding Tania Arreaga Cma * Telephone Encounter - Cyndy Lopez APRN.CNP - 07/07/2022 9:04 AM EST Please let patient know that her mammogram is normal. Patient should continue with yearly screenings. documented in this encounterFort [facility]03-06-2023 NoteHNO ID: [id number] Author: Albina Fernandez Service: ? Author Type: Pharmacy Care Coordinator Type: Progress Notes Filed: 07/06/2022 1:42 PM [...] IV DATA: Not applicable SIGNED BY: [employer] Ce July 06, 2022 1:13 [facility]03-02-2023 Miscellaneous Notes* Telephone Encounter - Tony [...] symptoms since her OV? documented in this encounterFort [facility]02-28-2023 NoteHNO ID: [id number] Author: Tony Soares MD Service: ? Author [...] Drop in both eyes once daily. vit C,R-Rb-tbmji-lutein-zeaxan (PRESERVISION AREDS-2) 250-90-40-1 mg Take 1 tablet [...] No masses, organomegaly. Extrem (more content not included)...[facility]12-01-2022 Miscellaneous Notes* Telephone Encounter - Zunilda Mckeon [...] Lo De La Cruz documented in this encounterFort [facility]11-[facility] History of Present illness Narrative* Topher [...] Drop in both eyes once daily. vit C,M-Xh-kphyb-lutein-zeaxan (PRESERVISION AREDS-2) 250-90-40-1 mg Take 1 tablet [...] Abs Lymph 1.00 - 4.00 k/uL 1.83 Clinch% % 9.6 Abs Clinch <0.87 k/uL 0.65 Eosin% % 5.3 Abs [...] which included preparing to see the patient, sfjk-gf-[id number] patient care, completing clinical documentation, obtaining and/or reviewing separately obtained history, performing a medically appropriate examination, and counseling and educating the patient/family/caregiver. documented in this encounterFort [facility]09-[facility] History of Present illness Narrative* Celia [...] Drop in both eyes once daily. vit C,V-Iw-fzljc-lutein-zeaxan (PRESERVISION AREDS-2) 250-90-40-1 mg Take 1 tablet [...] plan. Celia David APRN.COY documented in this encounterFort [facility] Hospital08-22-2022 History of Present illness Narrative* Tony [...] Drop in both eyes once daily. vit C,J-Pd-zdggn-lutein-zeaxan (PRESERVISION AREDS-2) 250-90-40-1 mg Take 1 tablet [...] above. Tony Soares MD documented in this encounterFort [facility] Hospital08-22-2022 Miscellaneous Notes* Telephone Encounter - Tony [...] Wednesday night. Protocols used: Abdominal Pain - Cqvetb-MFUZW-IR * Telephone Encounter - Beatriz Isaac LPN [...] her current abx regimen? documented in this encounterFort [facility]08-18-[facility]22 History of Present illness Narrative* Tony [...] Drop in both eyes once daily. vit C,Z-Et-wsozz-lutein-zeaxan (PRESERVISION AREDS 2) 466-266-04-1 og-yitz-tp-mg cap Take 1 tablet by mouth twice [...] murmur: 2/6 YUDELKA heard throughout. Abdomen: Abdomen soft Bowel sounds [...] CULTURE Tony Soares MD documented in this encounterFort [facility] Hospital08-08-2022 Miscellaneous Notes* Telephone Encounter - Bridget [...] improved after completing abx. documented in this encounterFort [facility] Hospital08-05-2022 Miscellaneous Notes* Telephone Encounter - Beatriz Isaac LPN - 12/05/2021 10:21 AM EDT Phoned patient 12/04/21 at [facility] to be sure she understood there were [...] call with any questions. documented in this encounterFort [facility] Hospital08-04-2022 Miscellaneous Notes* Telephone Encounter - Tony [...] in urine 9. :no Protocols used: URINARY MYOUHCEZ-KZZHV-MX, URINATION PAIN - VZRQOX-IZAVQ-PT documented in this encounterFort [facility] Hospital08-04-2022 Miscellaneous Notes* Telephone Encounter - Lynette [...] 2 weeks. Please advise. documented in this encounterFort [facility] Hospital06-29-2022 Miscellaneous Notes* Telephone Encounter - Amber [...] patient. Amber Gant Pss documented in this encounterFort [facility] Hospital06-16-2022 Miscellaneous Notes* Telephone Encounter - Lo [...] advise. Lo Cardoso Pss documented in this encounterFort [facility] Hospital05-25-2022 History of Present illness Narrative* Tony [...] Drop in both eyes once daily. vit C,R-Yz-lhjxz-lutein-zeaxan (PRESERVISION AREDS 2) 785-167-46-1 tz-boxi-wm-mg cap Take 1 tablet by mouth twice [...] weeks. Tony Soares MD documented in this encounterFort [facility] Hospital05-04-2022 Miscellaneous Notes* Telephone Encounter - Lillie Hu LPN - 09/03/2021 1:56 PM EDT Patient notified. Lillie Hu LPN * Telephone Encounter - Tony Soarse MD - 09/03/2021 1:25 PM EDT I [...] differently. Meme Gant LPN documented in this encounterFort [facility] Hospital05-03-2022 Miscellaneous Notes* Telephone Encounter - TORRI [...] Thanks, Topher Colon APRN.CNP documented in this encounterFort Hamilton Hospital05-02-2022 History of Present illness Narrative* Tony [...] over left forehead. Patient states that her hair stylist recommended Viviscal for thinning hair. Has rx, [...] Drop in both eyes once daily. vit C,F-Hp-rvtjo-lutein-zeaxan (PRESERVISION AREDS 2) [id number] yl-aexg-dc-mg cap Take 1 tablet by mouth twice [...] months. Tony Soares MD documented in this encounterFort [facility] Hospital04-12-2022 Miscellaneous Notes* Telephone Encounter - Kyra Norris LPN - 08/12/2021 4:35 PM EDT APPROVED until further notice . Briana Norris LPN * Telephone Encounter - Kyra Norris LPN - 08/07/2021 3:15 PM EDT Prior Authorization has been completed online at [employer] for Hydroxyzine, will await response. SWIFT- [id number] Please keep encounter open until final decision has been received and documented from insurance company. Briana Norris LPN documented in this encounterFort Hamilton HospitalEvaluation note* Diagnosis Thinning hair- Primary Alopecia, [...] of cerebral infarction [facility] [place] [facility] Diagnosis Plantar fasciitis- Primary Plantar fascial fibromatosis [facility] [place] [facility]* Diagnosis Recurrent UTI (urinary tract infection)- Primary Urinary tract infection, site not specified Dysuria documented [facility] encounter [facility] [place] [facility]* Diagnosis LLQ pain- Primary Abdominal pain, left lower quadrant Epigastric pain Abdominal pain, epigastric documented [facility] encounter [facility] [place] [facility]* Diagnosis Burning with urination- Primary Dysuria documented [facility] encounter [facility] [place] [facility]* Diagnosis Primary hypertension- Primary Unspecified essential hypertension Post herpetic neuralgia 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 Heart murmur Undiagnosed cardiac murmurs Gastroesophageal reflux disease with esophagitis, unspecified whether hemorrhage Hyperlipidemia, unspecified hyperlipidemia type Nonrheumatic aortic valve stenosis Aortic valve disorders Shoulder blade pain Disorder of bone and cartilage, unspecified documented [facility] this encounter [facility] [place] [facility]* Diagnosis Chronic kidney disease, stage 3a [...] of cerebral infarction [facility] [place] [facility]* Diagnosis Dysuria- Primary documented [facility] [place] [facility]* Diagnosis Primary hypertension- Primary Unspecified essential hypertension documented [facility] [place] [facility]* Diagnosis Primary hypertension- Primary Unspecified essential hypertension documented [facility] [place] [facility]* Diagnosis Primary hypertension- Primary Unspecified essential [...] unspecified type (HCC) documented in this encounter [facility] [place] [facility]* Diagnosis Acute cough- Primary [facility] Advance Directives Documents on File Type Date Recorded 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 Advance Directive(s) 02/15/2019 8:21 AM Reason for Referral Specialty Diagnoses / Procedures Referred By Kira t Referred To Contact Gastroenterology Diagnoses LLQ abdominal pain Procedures CONSULT TO GASTROENTEROLOGY OFFICE/OUTPATIENT [facility] 60-74 MINUTES Tony Soares MD [address] [place] [address] Referral ID Status Reason Start Date Expiration Date Visits Requested Visits Authorized [id number] Authorized PCP Requested Referral 09/07/2022 09/07/2023 1 [...] or prosecute any alcohol or drug abuse patient.[facility] HospitalIn the event this information is protected by the Federal Confidentiality of Alcohol and Drug Abuse Patient Records regulations: The Federal rules restrict any use of the information to criminally investigate or prosecute any alcohol or drug abuse patient.[facility] HospitalIn the event this information is protected by the Federal Confidentiality of Alcohol and Drug Abuse Patient Records regulations: The Federal rules restrict any use of the information to criminally investigate or prosecute any alcohol or drug abuse patient.[facility] HospitalIn the event this information is protected by the Federal Confidentiality of Alcohol and Drug Abuse Patient Records regulations: The Federal rules restrict any use of the information to criminally investigate or prosecute any alcohol or drug abuse patient.[facility] HospitalIn the event this information is protected by the Federal Confidentiality of Alcohol and Drug Abuse Patient Records regulations: The Federal rules restrict any use of the information to criminally investigate or prosecute any alcohol or drug abuse patient.[facility] HospitalIn the event this information is protected by the Federal Confidentiality of Alcohol and Drug Abuse Patient Records regulations: The Federal rules restrict any use of the information to criminally investigate or prosecute any alcohol or drug abuse patient.[facility] HospitalIn the event this information is protected by the Federal Confidentiality of Alcohol and Drug Abuse Patient Records regulations: The Federal rules restrict any use of the information to criminally investigate or prosecute any alcohol or drug abuse patient.[facility] HospitalIn the event this information is protected by the Federal Confidentiality of Alcohol and Drug Abuse Patient Records regulations: The Federal rules restrict any use of the information to criminally investigate or prosecute any alcohol or drug abuse patient.[facility] HospitalIn the event this information is protected by the Federal Confidentiality of Alcohol and Drug Abuse Patient Records regulations: The Federal rules restrict any use of the information to criminally investigate or prosecute any alcohol or drug abuse patient.[facility] HospitalIn the event this information is protected by the Federal Confidentiality of Alcohol and Drug Abuse Patient Records regulations: The Federal rules restrict any use of the information to criminally investigate or prosecute any alcohol or drug abuse patient.[facility] HospitalIn the event this information is protected by the Federal Confidentiality of Alcohol and Drug Abuse Patient Records regulations: The Federal rules restrict any use of the information to criminally investigate or prosecute any alcohol or drug abuse patient.[facility] HospitalIn the event this information is protected by the Federal Confidentiality of Alcohol and Drug Abuse Patient Records regulations: The Federal rules restrict any use of the information to criminally investigate or prosecute any alcohol or drug abuse patient.[facility] HospitalIn the event this information is protected by the Federal Confidentiality of Alcohol and Drug Abuse Patient Records regulations: The Federal rules restrict any use of the information to criminally investigate or prosecute any alcohol or drug abuse patient.[facility] HospitalIn the event this information is protected by the Federal Confidentiality of Alcohol and Drug Abuse Patient Records regulations: The Federal rules restrict any use of the information to criminally investigate or prosecute any alcohol or drug abuse patient.[facility] HospitalIn the event this information is protected by the Federal Confidentiality of Alcohol and Drug Abuse Patient Records regulations: The Federal rules restrict any use of the information to criminally investigate or prosecute any alcohol or drug abuse patient.[facility] HospitalIn the event this information is protected by the Federal Confidentiality of Alcohol and Drug Abuse Patient Records regulations: The Federal rules restrict any use of the information to criminally investigate or prosecute any alcohol or drug abuse patient.[facility] HospitalIn the event this information is protected by the Federal Confidentiality of Alcohol and Drug Abuse Patient Records regulations: The Federal rules restrict any use of the information to criminally investigate or prosecute any alcohol or drug abuse patient.[facility] HospitalIn the event this information is protected by the Federal Confidentiality of Alcohol and Drug Abuse Patient Records regulations: The Federal rules restrict any use of the information to criminally investigate or prosecute any alcohol or drug abuse patient.[facility] HospitalIn the event this information is protected by the Federal Confidentiality of Alcohol and Drug Abuse Patient Records regulations: The Federal rules restrict any use of the information to criminally investigate or prosecute any alcohol or drug abuse patient.[facility] HospitalIn the event this information is protected by the Federal Confidentiality of Alcohol and Drug Abuse Patient Records regulations: The Federal rules restrict any use of the information to criminally investigate or prosecute any alcohol or drug abuse patient.[facility] HospitalIn the event this information is protected by the Federal Confidentiality of Alcohol and Drug Abuse Patient Records regulations: The Federal rules restrict any use of the information to criminally investigate or prosecute any alcohol or drug abuse patient.[facility] HospitalIn the event this information is protected by the Federal Confidentiality of Alcohol and Drug Abuse Patient Records regulations: The Federal rules restrict any use of the information to criminally investigate or prosecute any alcohol or drug abuse patient.[facility] HospitalIn the event this information is protected by the Federal Confidentiality of Alcohol and Drug Abuse Patient Records regulations: The Federal rules restrict any use of the information to criminally investigate or prosecute any alcohol or drug abuse patient.[facility] HospitalIn the event this information is protected by the Federal Confidentiality of Alcohol and Drug Abuse Patient Records regulations: The Federal rules restrict any use of the information to criminally investigate or prosecute any alcohol or drug abuse patient.[facility] HospitalIn the event this information is protected by the Federal Confidentiality of Alcohol and Drug Abuse Patient Records regulations: The Federal rules restrict any use of the information to criminally investigate or prosecute any alcohol or drug abuse patient.[facility] HospitalIn the event this information is protected by the Federal Confidentiality of Alcohol and Drug Abuse Patient Records regulations: The Federal rules restrict any use of the information to criminally investigate or prosecute any alcohol or drug abuse patient.[facility] HospitalIn the event this information is protected by the Federal Confidentiality of Alcohol and Drug Abuse Patient Records regulations: The Federal rules restrict any use of the information to criminally investigate or prosecute any alcohol or drug abuse patient.[facility] HospitalIn the event this information is protected by the Federal Confidentiality of Alcohol and Drug Abuse Patient Records regulations: The Federal rules restrict any use of the information to criminally investigate or prosecute any alcohol or drug abuse patient.[facility] HospitalIn the event this information is protected by the Federal Confidentiality of Alcohol and Drug Abuse Patient Records regulations: The Federal rules restrict any use of the information to criminally investigate or prosecute any alcohol or drug abuse patient.[facility] HospitalIn the event this information is protected by the Federal Confidentiality of Alcohol and Drug Abuse Patient Records regulations: The Federal rules restrict any use of the information to criminally investigate or prosecute any alcohol or drug abuse patient.[facility] HospitalIn the event this information is protected by the Federal Confidentiality of Alcohol and Drug Abuse Patient Records regulations: The Federal rules restrict any use of the information to criminally investigate or prosecute any alcohol or drug abuse patient.[facility] HospitalIn the event this information is protected by the Federal Confidentiality of Alcohol and Drug Abuse Patient Records regulations: The Federal rules restrict any use of the information to criminally investigate or prosecute any alcohol or drug abuse patient.[facility] HospitalIn the event this information is protected by the Federal Confidentiality of Alcohol and Drug Abuse Patient Records regulations: The Federal rules restrict any use of the information to criminally investigate or prosecute any alcohol or drug abuse patient.[facility] HospitalIn the event this information is protected by the Federal Confidentiality of Alcohol and Drug Abuse Patient Records regulations: The Federal rules restrict any use of the information to criminally investigate or prosecute any alcohol or drug abuse patient.[facility] HospitalIn the event this information is protected by the Federal Confidentiality of Alcohol and Drug Abuse Patient Records regulations: The Federal rules restrict any use of the information to criminally investigate or prosecute any alcohol or drug abuse patient.[facility] HospitalIn the event this information is protected by the Federal Confidentiality of Alcohol and Drug Abuse Patient Records regulations: The Federal rules restrict any use of the information to criminally investigate or prosecute any alcohol or drug abuse patient.[facility] HospitalIn the event this information is protected by the Federal Confidentiality of Alcohol and Drug Abuse Patient Records regulations: The Federal rules restrict any use of the information to criminally investigate or prosecute any alcohol or drug abuse patient.[facility] HospitalIn the event this information is protected by the Federal Confidentiality of Alcohol and Drug Abuse Patient Records regulations: The Federal rules restrict any use of the information to criminally investigate or prosecute any alcohol or drug abuse patient.[facility] HospitalIn the event this information is protected by the Federal Confidentiality of Alcohol and Drug Abuse Patient Records regulations: The Federal rules restrict any use of the information to criminally investigate or prosecute any alcohol or drug abuse patient.[facility] HospitalIn the event this information is protected by the Federal Confidentiality of Alcohol and Drug Abuse Patient Records regulations: The Federal rules restrict any use of the information to criminally investigate or prosecute any alcohol or drug abuse patient.[facility] HospitalIn the event this information is protected by the Federal Confidentiality of Alcohol and Drug Abuse Patient Records regulations: The Federal rules restrict any use of the information to criminally investigate or prosecute any alcohol or drug abuse patient.[facility] HospitalIn the event this information is protected by the Federal Confidentiality of Alcohol and Drug Abuse Patient Records regulations: The Federal rules restrict any use of the information to criminally investigate or prosecute any alcohol or drug abuse patient.[facility] the event this information is protected by the Federal Confidentiality of Alcohol and Drug Abuse Patient Records regulations: The Federal rules restrict any use of the information to criminally investigate or prosecute any alcohol or drug abuse patient.[facility] Reason for Visit (unrecogniz ed section [...] Care Teams (unrecognized sec tion and content) Car Racer Relationship Specialty Start Date End Date Tony Soares MD [address] [place] [address] PCP - General Family Practice 08/14/16 Felton Yancey [address] [place] [address] Pain Management 05/13/18 Ender Lucio [address] [facility] [place] [address] Dermatology 05/13/18 Romie Cueto (Hist) [address] [facility] [address] Cardiology 05/13/18 Stacey, [place] S [address] [place] [address] Physician Cardiology 07/11/18 Car Racer Relationship Specialty Start Date End Date Tony Soares MD [address] [facility] [place] [address] PCP - General Family Practice 08/14/16 Felton Yancey [address] [place] [address] Pain Management 05/13/18 Ender Lucio [address] [facility] [place] [address] Dermatology 05/13/18 Romie Cueto (Hist) [address] [facility] [place] [address] Cardiology 05/13/18 Stacey, [place] S [address] [place] [address] Physician Cardiology 07/11/18 Car Racer Relationship Specialty Start Date End Date Tony Soares MD [address] [facility] [place] [address] PCP - General Family Practice 08/14/16 Felton Yancey [address] [place] [address] Pain Management 05/13/18 Ender Lucio [address] [place] [address] Dermatology 05/13/18 Romie Cueto (Hist) [address] [place] [address] Cardiology 05/13/18 Stacey, [place] S [address] [place] [address] Physician Cardiology 07/11/18 Car Racer Relationship Specialty Start Date End Date Tony Soares MD [address] [facility] [place] [address] PCP - General Family Practice 08/14/16 Felton Yancey [address] [place] [address] Pain Management 05/13/18 Ender Lucio [address] [place] [address] Dermatology 05/13/18 Romie Cueto (Hist) [address] [place] [address] Cardiology 05/13/18 Stacey, Levy S [address] [place] [address] Physician Cardiology 07/11/18 Car Racer Relationship Specialty Start Date End Date Tony Soares MD [address] [facility] [place] [address] PCP - General Family Practice 08/14/16 Felton Yancey [address] [place] [address] Pain Management 05/13/18 Ender Lucio [address] [place] [address] Dermatology 05/13/18 Romie Cueto (Hist) [address] [place] [address] Cardiology 05/13/18 Stacey, [place] S [address] [place] [address] Physician Cardiology 07/11/18 Car Racer Relationship Specialty Start Date End Date Tony Soares MD [address] [facility] [place] [address] PCP - General Family Practice 08/14/16 Felton Yancey [address] [place] [address] Pain Management 05/13/18 Ender Lucio [address] [place] [address] Dermatology 05/13/18 Romie Cueto (Hist) [address] [place] [address] Cardiology 05/13/18 Stacey, [place] S [address] [place] [address] Physician Cardiology 07/11/18 Car Racer Relationship Specialty Start Date End Date Tony Soares MD [address] [facility] [place] [address] PCP - General Family Practice 08/14/16 Felton Yancey [address] [place] [address] Pain Management 05/13/18 Ender Lucio [address] [place] [address] Dermatology 05/13/18 Romie Cueto (Hist) [address] [place] [address] Cardiology 05/13/18 Stacey, [place] S [address] [place] [address] Physician Cardiology 07/11/18 Car Racer Relationship Specialty Start Date End Date Tony Soares MD [address] [facility] [place] [address] PCP - General Family Medicine 08/14/16 Felton Yancey [address] [place] [address] Pain Management 05/13/18 Ender Lucio [address] [place] [address] Dermatology 05/13/18 Romie Cueto (Hist) [address] [place] [address] Cardiology 05/13/18 Stacey, Levy S [address] [place] [address] Physician Cardiology 07/11/18 Car Racer Relationship Specialty Start Date End Date Tony Soares MD [address] [facility] [place] [address] PCP - General Family Medicine 08/14/16 Felton Yancey [address] [place] [address] Pain Management 05/13/18 Ender Lucio [address] [place] [address] Dermatology 05/13/18 Romie Cueto (Hist) [address] [place] [address] Cardiology 05/13/18 Stacey, [place] S [address] [place] [address] Physician Cardiology 07/11/18 Car Racer Relationship Specialty Start Date End Date Tony Soares MD [address] [facility] [place] [address] PCP - General Family Medicine 08/14/16 Felton Yancey [address] [place] [address] Pain Management 05/13/18 Ender Lucio [address] [place] [address] Dermatology 05/13/18 Romie Cueto [address] [place] [address] Cardiology 05/13/18 Stacey, Levy S [address] [place] [address] Physician Cardiology 07/11/18 Car Racer Relationship Specialty Start Date End Date Tony Soares MD [address] [facility] [place] [address] PCP - General Family Medicine 08/14/16 Felton Yancey [address] [place] [address] Pain Management 05/13/18 Ender Lucio [address] [place] [address] Dermatology 05/13/18 Romie Cueto [address] [place] [address] Cardiology 05/13/18 Stacey, Levy S [address] [place] [address] Physician Cardiology 07/11/18 Car Racer Relationship Specialty Start Date End Date Tony Soares MD [address] [facility] [place] [address] PCP - General Family Medicine 08/14/16 Felton Yancey [address] [place] [address] Pain Management 05/13/18 Ender Lucio [address] [place] [address] Dermatology 05/13/18 Romie Cueto [address] [place] [address] Cardiology 05/13/18 Stacey, [place] S [address] [place] [address] Physician Cardiology 07/11/18 Car Racer Relationship Specialty Start Date End Date Tony Soares MD [address] [facility] [place] [address] PCP - General Family Medicine 08/14/16 Felton Yancey [address] [place] [address] Pain Management 05/13/18 Ender Lucio [address] [place] [address] Dermatology 05/13/18 Romie Cueto [address] [place] [address] Cardiology 05/13/18 Stacey, Levy S [address] [place] [address] Physician Cardiology 07/11/18 Car Racer Relationship Specialty Start Date End Date Tony Soares MD [address] [facility] [place] [address] PCP - General Family Medicine 08/14/16 Felton Yancey [address] [place] [address] Pain Management 05/13/18 Ender Lucio [address] [place] [address] Dermatology 05/13/18 Romie Cueto [address] [place] [address] Cardiology 05/13/18 Stacey, Levy S [address] [place] [address] Physician Cardiology 07/11/18 Car Racer Relationship Specialty Start Date End Date Tony Soares MD [address] [facility] [place] [address] PCP - General Family Medicine 08/14/16 Felton Yancey [address] [place] [address] Pain Management 05/13/18 Ender Lucio [address] [place] [address] Dermatology 05/13/18 Romie Cueto [address] [place] [address] Cardiology 05/13/18 Stacey, [place] S [address] [place] [address] Physician Cardiology 07/11/18 Car Racer Relationship Specialty Start Date End Date Tony Soares MD [address] [facility] [place] [address] PCP - General Family Medicine 08/14/16 Felton Yancey [address] [place] [address] Pain Management 05/13/18 Ender Lucio [address] [place] [address] Dermatology 05/13/18 Romie Cueto [address] [place] [address] Cardiology 05/13/18 Stacey, Levy S [address] [place] [address] Physician Cardiology 07/11/18 Car Racer Relationship Specialty Start Date End Date Tony Soares MD [address] [facility] [place] [address] PCP - General Family Medicine 08/14/16 Felton Yancey [address] [place] [address] Pain Management 05/13/18 Ender Lucio [address] [place] [address] Dermatology 05/13/18 Romie Cueto [address] [place] [address] Cardiology 05/13/18 Levy Ibarra [address] [place] [address] Physician Cardiology 07/11/18 Car Racer Relationship Specialty Start Date End Date Tony Soares MD [address] [place] [address] PCP - General Family Medicine 08/14/16 Felton Yancey [address] [place] [address] Pain Management 05/13/18 Ender Lucio [address] [place] [address] Dermatology 05/13/18 Romie Cueto [address] [place] [address] Cardiology 05/13/18 Levy Ibarra [address] [place] [address] Physician Cardiology 07/11/18 Car Racer Relationship Specialty Start Date End Date Tony Soares MD [address] [facility] [place] [address] PCP - General Family Medicine 08/14/16 Felton Yancey MD [address] [place] [address] Pain Management 05/13/18 Ender Lucio MD [address] [place] [address] Dermatology 05/13/18 Romie Cueto [address] [place] [address] Cardiology 05/13/18 Levy Ibarra MD [address] [place] [address] Physician Cardiology 07/11/18 Car Racer Relationship Specialty Start Date End Date Tony Soares MD [address] [facility] [place] [address] PCP - General Family Medicine 08/14/16 Felton Yancey MD [address] [place] [address] Pain Management 05/13/18 Ender Lucio MD [address] [place] [address] Dermatology 05/13/18 Romie Cueto [address] [place] [address] Cardiology 05/13/18 Levy Ibarra MD [address] [place] [address] Physician Cardiology 07/11/18 Car Racer Relationship Specialty Start Date End Date Tony Soares MD [address] [place] [address] PCP - General Family Medicine 08/14/16 Felton Yancey MD [address] [facility] [place] [address] Pain Management 05/13/18 Ender Lucio MD [address] [place] [address] Dermatology 05/13/18 Romie Cueto [address] [place] [address] Cardiology 05/13/18 Levy Ibarra MD [address] [place] [address] Physician Cardiology 07/11/18 Car Racer Relationship Specialty Start Date End Date Tony Soares MD [address] [place] [address] PCP - General Family Medicine 08/14/16 Felton Yancey MD [address] [place] [address] Pain Management 05/13/18 Ender Lucio MD [address] [place] [address] Dermatology 05/13/18 Romie Cueto [address] [place] [address] (Fax) Cardiology 05/13/18 Levy Ibarra MD [address] [facility] [address] [place] [address] Physician Cardiology 07/11/18 Car Racer Relationship Specialty Start Date End Date Tony Soares MD [address] [place] [address] PCP - General Family Medicine 08/14/16 Felton Yancey MD [address] [facility] [place] [address] Pain Management 05/13/18 Ender Lucio MD [address] [place] [address] Dermatology 05/13/18 Romie Cueto [address] [place] [address] Cardiology 05/13/18 Levy Ibarra MD [address] [place] [address] Physician Cardiology 07/11/18 Car Racer Relationship Specialty Start Date End Date Tony Soares MD [address] [place] [address] PCP - General Family Medicine 08/14/16 Felton Yancey MD [address] [address] Pain Management 05/13/18 Ender Lucio MD [address] [place] [address] Dermatology 05/13/18 Romie Cueto [address] [place] [address] Cardiology 05/13/18 Levy Ibarra MD [address] [address] Physician Cardiology 07/11/18 Car Racer Relationship Specialty Start Date End Date Tony Soares MD [address] [place] [address] PCP - General Family Medicine 08/14/16 Felton Yancey MD [address] [address] Pain Management 05/13/18 Ender Lucio MD [address] [place] [address] Dermatology 05/13/18 Romie Cueto [address] [place], [place] [address] Cardiology 05/13/18 Levy Ibarra MD [address] [address] Physician Cardiology 07/11/18 Car Racer Relationship Specialty Start Date End Date Tony Soares MD [address] [place] [address] PCP - General Family Medicine 08/14/16 Felton Yancey MD [address] [address] Pain Management 05/13/18 Ender Lucio MD [address] [place] [address] Dermatology 05/13/18 Romie Cueto [address] [place] [address] Cardiology 05/13/18 Levy Ibarra MD [address] [address] Physician Cardiology 07/11/18 INFORMATION SOURCE (unrecogn ized [...] BE BASED ON THE PRIMARY CLINICAL RECORDS. [employer] [facility]. provides no warranty or guarantee of the accuracy or completeness of information in this document.
== END | disposition home or self-care (01) ==
LOC: LABSPEC 12:39
PROVIDERS: PCP Family Medicine; Referring Provider Physician Assistant Surgical; Visit Provider Physician Assistant Surgical
DX: N39.0 Urinary tract infection, site not specified (principal); R30.0 Dysuria
CPT/HCPCS: 87077; 87086; 87088; 87186

== ENCOUNTER 2023-05-17 17:01 | Emergency (ER) | payer MEDICARE, OTHER, SELFPAY ==
[2023-05-17 17:02] VITALS: BP 119/61; PULSE 81; RESP 18; TEMP 36.3; O2SAT 99
--- OUTSIDE RECORDS SUMMARY | 2023-05-17 19:19 | XMS RPT_ITS | CCD ---
Author Name Unknown Address [address] [place] [address] Organization [facility] Care Team Providers Care Cook Cold Meat Name Role Phone Tony Soares MD Primary Care Provider Felton Yancey Unavailable [phone] Ender Lucio Unavailable Romie Cueto (Hist) Unavailable [...] Yancey MD Unavailable Ender Lucio MD Unavailable [phone] Romie Cueto Unavailable Stacey SHAH, Levy S Unavailable Allergies Allergy Classification Reported Allergen(s) Allergy Type Date of Onset Reaction(s) Facility (20 sources) oxyCODONE; Translations: [OXYCODONE] Drug Allergy 03-11-2017 Itching [facility] Medications Current Medications Medication Drug Class(es) [...] 10:31-0500 Body temperature 98.29 [degF] Topher Podlogar OBSTETRICS NURSE.SONOGRAPHY TECHNICIAN Work Phone: [facility] 03-31-2023 10:31-0500 Body weight 67.31 kg Topher Podlogar OBSTETRICS NURSE.SONOGRAPHY TECHNICIAN Work Phone: [facility] 03-31-2023 10:31-0500 Diastolic blood pressure 84 mm[Hg] Topher Podlogar OBSTETRICS NURSE.SONOGRAPHY TECHNICIAN Work Phone: [facility] 03-31-2023 10:31-0500 Heart rate 95 /min Topher Podlogar OBSTETRICS NURSE.SONOGRAPHY TECHNICIAN Work Phone: [facility] 03-31-2023 10:31-0500 Respiratory rate 20 /min Topher Podlogar OBSTETRICS NURSE.SONOGRAPHY TECHNICIAN Work Phone: [facility] 03-31-2023 10:31-0500 SaO2% (BldA) [Mass fraction] 98 % Topher Podlogar OBSTETRICS NURSE.SONOGRAPHY TECHNICIAN Work Phone: [facility] 03-31-2023 10:31-0500 Systolic blood pressure 138 mm[Hg] Topher Podlogar OBSTETRICS NURSE.SONOGRAPHY TECHNICIAN Work Phone: [facility] 03-15-2023 13:47-0500 Body weight 68.58 kg Tony Soares MD Work Phone: [facility] 03-15-2023 13:47-0500 Diastolic blood pressure 74 mm[Hg] Tony Soares MD Work Phone: [facility] 03-15-2023 13:47-0500 Heart rate 77 /min Tony Soares MD Work Phone: [facility] 03-15-2023 13:47-0500 Respiratory rate 16 /min Tony Soares MD Work Phone: [facility] 03-15-2023 13:47-0500 SaO2% (BldA) [Mass fraction] 97 % Tony Soares MD Work Phone: [facility] 03-15-2023 13:47-0500 Systolic blood pressure 118 mm[Hg] Tony Soares MD Work Phone: [facility] 03-05-2023 18:35-0400 Body weight 67.5 kg Topher Podlogar OBSTETRICS NURSE.SONOGRAPHY TECHNICIAN Work Phone: [facility] 03-05-2023 18:35-0400 Diastolic blood pressure 68 mm[Hg] Topher Podlogar OBSTETRICS NURSE.SONOGRAPHY TECHNICIAN Work Phone: [facility] 03-05-2023 18:35-0400 Heart rate 64 /min Topher Podlogar OBSTETRICS NURSE.SONOGRAPHY TECHNICIAN Work Phone: [facility] 03-05-2023 18:35-0400 Respiratory rate 16 /min Topher Podlogar OBSTETRICS NURSE.SONOGRAPHY TECHNICIAN Work Phone: [facility] 03-05-2023 18:35-0400 SaO2% (BldA) [Mass fraction] 98 % Topher Podlogar OBSTETRICS NURSE.SONOGRAPHY TECHNICIAN Work Phone: [facility] 03-05-2023 18:35-0400 Systolic blood pressure 140 mm[Hg] Topher Podlogar OBSTETRICS NURSE.SONOGRAPHY TECHNICIAN Work Phone: [facility] 02-08-2023 08:01-0400 Body weight 65.77 kg Tony Soares MD Work Phone: [facility] 02-08-2023 08:01-0400 Diastolic blood pressure 60 mm[Hg] Tony Soares MD Work Phone: [facility] 02-08-2023 08:01-0400 Heart rate 60 /min Tony Soares MD Work Phone: [facility] 02-08-2023 08:01-0400 Respiratory rate 16 /min Tony Soares MD Work Phone: [facility] 02-08-2023 08:01-0400 SaO2% (BldA) [Mass fraction] 96 % Tony Soares MD Work Phone: [facility] 02-08-2023 08:01-0400 Systolic blood pressure 104 mm[Hg] Tony Soares MD Work Phone: [facility] 10-14-2022 15:46-0400 Body temperature 98.6 [degF] Topher Podlogar OBSTETRICS NURSE.SONOGRAPHY TECHNICIAN Work Phone: [facility] 10-14-2022 15:46-0400 Body weight 67.77 kg Topher Podlogar OBSTETRICS NURSE.SONOGRAPHY TECHNICIAN Work Phone: [facility] 10-14-2022 15:46-0400 Diastolic blood pressure 68 mm[Hg] Topher Podlogar OBSTETRICS NURSE.SONOGRAPHY TECHNICIAN Work Phone: [facility] 10-14-2022 15:46-0400 Heart rate 76 /min Topher Podlogar OBSTETRICS NURSE.SONOGRAPHY TECHNICIAN Work Phone: [facility] 10-14-2022 15:46-0400 Respiratory rate 16 /min Topher Podlogar OBSTETRICS NURSE.SONOGRAPHY TECHNICIAN Work Phone: [facility] 10-14-2022 15:46-0400 SaO2% (BldA) [Mass fraction] 96 % Topher Podlogar OBSTETRICS NURSE.SONOGRAPHY TECHNICIAN Work Phone: [facility] 10-14-2022 15:46-0400 Systolic blood pressure 130 mm[Hg] Topher Podlogar OBSTETRICS NURSE.SONOGRAPHY TECHNICIAN Work Phone: [facility] 09-07-2022 13:57-0400 Body weight 67.13 kg Tony Soares MD Work Phone: [facility] 09-07-2022 13:57-0400 Diastolic blood pressure 78 mm[Hg] Tony Soares MD Work Phone: [facility] 09-07-2022 13:57-0400 Heart rate 72 /min Tony Soares MD Work Phone: [facility] 09-07-2022 13:57-0400 Respiratory rate 14 /min Tony Soares MD Work Phone: [facility] 09-07-2022 13:57-0400 Systolic blood pressure 136 mm[Hg] Tony Soares MD Work Phone: [facility] 03-04-2022 13:31-0400 Body weight 66.22 kg Topher Podlogar OBSTETRICS NURSE.SONOGRAPHY TECHNICIAN Work Phone: [facility] 03-04-2022 13:31-0400 Diastolic blood pressure 68 mm[Hg] Topher Podlogar OBSTETRICS NURSE.SONOGRAPHY TECHNICIAN Work Phone: [facility] 03-04-2022 13:31-0400 Heart rate 78 /min Topher Podlogar OBSTETRICS NURSE.SONOGRAPHY TECHNICIAN Work Phone: [facility] 03-04-2022 13:31-0400 Respiratory rate 16 /min Topher Podlogar OBSTETRICS NURSE.SONOGRAPHY TECHNICIAN Work Phone: [facility] 03-04-2022 13:31-0400 SaO2% (BldA) [Mass fraction] 95 % Topher Podlogar OBSTETRICS NURSE.SONOGRAPHY TECHNICIAN Work Phone: [facility] 03-04-2022 13:31-0400 Systolic blood pressure 138 mm[Hg] Topher Podlogar OBSTETRICS NURSE.SONOGRAPHY TECHNICIAN Work Phone: [facility] 01-03-2022 12:29-0400 Body temperature 98.2 [degF] Celia David OBSTETRICS NURSE.SONOGRAPHY TECHNICIAN Work Phone: [facility] 01-03-2022 12:29-0400 Body weight 66.68 kg Celia David OBSTETRICS NURSE.SONOGRAPHY TECHNICIAN Work Phone: [facility] 01-03-2022 12:29-0400 Diastolic blood pressure 68 mm[Hg] Celia David OBSTETRICS NURSE.SONOGRAPHY TECHNICIAN Work Phone: [facility] 01-03-2022 12:29-0400 Heart rate 65 /min Celia David OBSTETRICS NURSE.SONOGRAPHY TECHNICIAN Work Phone: [facility] 01-03-2022 12:29-0400 Respiratory rate 16 /min Celia David OBSTETRICS NURSE.SONOGRAPHY TECHNICIAN Work Phone: [facility] 01-03-2022 12:29-0400 SaO2% (BldA) [Mass fraction] 97 % Celia David APRN.SONOGRAPHY TECHNICIAN Work Phone: [facility] 01-03-2022 12:29-0400 Systolic blood pressure 112 mm[Hg] Celia David APRN.SONOGRAPHY TECHNICIAN Work Phone: [facility] 12-22-2021 16:32-0400 Body temperature 98.6 [degF] Tony Soares MD Work Phone: [facility] 12-22-2021 16:32-0400 Diastolic blood pressure 60 mm[Hg] Tony Soares MD Work Phone: [facility] 12-22-2021 16:32-0400 Heart rate 67 /min Tony Soares MD Work Phone: [facility] 12-22-2021 16:32-0400 Respiratory rate 16 /min Tony Soares MD Work Phone: [facility] 12-22-2021 16:32-0400 SaO2% (BldA) [Mass fraction] 99 % Tony Soares MD Work Phone: [facility] 12-22-2021 16:32-0400 Systolic blood pressure 122 mm[Hg] Tony Soares MD Work Phone: [facility] 12-18-2021 14:36-0400 Body temperature 98.8 [degF] Tony Soares MD Work Phone: [facility] 12-18-2021 14:36-0400 Body weight 67.68 kg Tony Soares MD Work Phone: [facility] 12-18-2021 14:36-0400 Diastolic blood pressure 62 mm[Hg] Tony Soares MD Work Phone: [facility] 12-18-2021 14:36-0400 Heart rate 64 /min Tony Soares MD Work Phone: [facility] 12-18-2021 14:36-0400 Respiratory rate 16 /min Tony Soares MD Work Phone: [facility] 12-18-2021 14:36-0400 Systolic blood pressure 104 mm[Hg] Tony Soares MD Work Phone: [facility] 09-24-2021 15:23-0400 Body weight 66.68 kg Tony Soares MD Work Phone: [facility] 09-24-2021 15:23-0400 Diastolic blood pressure 80 mm[Hg] Tony Soares MD Work Phone: [facility] 09-24-2021 15:23-0400 Heart rate 72 /min Tony Soares MD Work Phone: [facility] 09-24-2021 15:23-0400 Respiratory rate 14 /min Tony Soares MD Work Phone: [facility] 09-24-2021 15:23-0400 Systolic blood pressure 124 mm[Hg] Tony Soares MD Work Phone: [facility] 09-01-2021 11:04-0400 Body weight 68.13 kg Tony Soares MD Work Phone: [facility] 09-01-2021 11:04-0400 Diastolic blood pressure 58 mm[Hg] Tony Soares MD Work Phone: [facility] 09-01-2021 11:04-0400 Heart rate 64 /min Tony Soares MD Work Phone: [facility] 09-01-2021 11:04-0400 Respiratory rate 18 /min Tony Soares MD Work Phone: [facility] 09-01-2021 11:04-0400 SaO2% (BldA) [Mass fraction] 98 % Tony Soares MD Work Phone: [facility] 09-01-2021 11:04-0400 Systolic blood pressure 112 mm[Hg] Tony Soares MD Work Phone: [facility] Encounters Encounter Date Encounter Type Care Provider Facility Start: 04-12-2023 Refill Tony Soares MD Work Phone: [facility] Procedures Date Procedure Procedure Detail Performing Clinician Start: 10-14-2022 Urnls dip stick/tabl et rgnt auto w/o microscopy Topher Colon APRN.CNP Work Phone: Start: 01-03-2022 Urnls dip stick/tabl et rgnt auto w/o microscopy Atif Kellogg MD Work Phone: Plan of Treatment Date Care Activity Detail Author Start: 07-08-2031 Urine microalbumin profile [facility] Start: 02-23-2026 [facility] Start: 09-04-2025 DIABETES SCREEN DIABETES SCREEN [facility] Start: 09-04-2025 [facility] Start: 08-17-2025 DIABETES SCREEN DIABETES SCREEN [facility] Start: 09-01-2024 DIABETES SCREEN DIABETES SCREEN [facility] Start: 02-19-2024 DIABETES SCREEN DIABETES SCREEN [facility] Start: 02-09-2024 Covid-19 Vaccine ( season) Covid-19 Vaccine () [facility] Immunizations Immunization Date Immunization Notes Care Provider Rupinder davidson 03-17-2023 respiratory syncytia l virus (RSV) vaccine, unspecified formulation Tony Soares MD Work Phone: [facility] 03-15-2023 pneumococcal Conjuga te, unspecified formulation Tony Soares MD Work Phone: [facility] Work Phone: 03-15-2023 pneumococcal (PCV20) vaccine, 20 valent (PREVNAR 20) Tony Soares MD Work Phone: [facility] 07-07-2021 tetanus toxoid, redu andrea diphtheria toxoid, and acellular pertussis vaccine, adsorbed Tony Soares MD Work Phone: [facility] 09-13-2020 COVID-19 vaccine, ag e 12+ yr ([employer] [facility] [facility]) Tony Soares MD Work Phone: [facility] 08-30-2018 zoster vaccine recombinant Tony Soares MD Work Phone: [facility] 02-15-2018 influenza virus vaccine, unspecified formulation Tony Soares MD Work Phone: [facility] 12-11-2017 zoster vaccine recombinant Tony Soares MD Work Phone: [facility] 12-07-2017 zoster vaccine recombinant Tony Soares MD Work Phone: [facility] 02-15-2017 influenza, high dose seasonal, preservative-free Tony Soares MD Work Phone: [facility] 12-08-2008 pneumococcal polysaccharide vaccine, 23 valent Tony Soares MD Work Phone: [facility] Payers Date Payer Category Payer Unknown HOSPITAL/MEDICAL GENERIC MEDICAL GENERIC [id number] 2014-Present [phone] [address] [facility] [place] [address] Indemnity [id number] 2014 Unknown HOSPITAL/MEDICAL GENERIC MEDICAL GENERIC [id number] 2014-Present [phone] [address] [facility] [place] [address] Indemnity [id number] 2014 Unknown [id number] 2004 Medicare MEDICARE MEDICAR E A AND B [id number] 2004-Present [phone] [place] [address] Medicare [id number] 2004 Medicare MEDICARE MEDICAR E A AND B [id number] 2004-Present [phone] [place] [address] Medicare [id number] 2004 Medicare [id number] Social History Date Type Detail Facility Start: 05-13-2016 End: 12-18-2021 Tobacco smoking status NHIS Ex-smoker [facility] End: 05-03-1988 History of tobacco use Current smoker [facility] Start: 05-13-2016 End: 09-07-2022 Cigarettes smoked current (pack per day) - Reported 0.5 [facility] Start: 05-13-2016 End: 12-18-2021 Tobacco use and exposure Smokeless tobacco non-user [facility] Start: 07-21-2021 End: 03-31-2023 Alcohol intake Current non-drinker of alcohol (finding) [facility] Start: 01-24-2018 History SDOH Alcohol Frequency 1 [facility] Start: 01-24-2018 History SDOH Social Connections Phone 5 [facility] Start: 01-24-2018 History SDOH Social Connections Living 4 [facility] Start: 01-24-2018 History SDOH Transpo rt Med 2 [facility] Start: 01-24-2018 Education 13 [facility] Start: 1940 Sex Assigned At Not on file [facility] Start: 07-11-2021 End: 12-22-2021 Exposure to SARS-CoV-2 (event) Not sure [facility] End: 05-03-1988 History of tobacco use Cigarette Smoker [facility] Start: 01-24-2018 End: 09-07-2022 Social connection and isolation panel [facility] Attends [employer] Not on file [facility] Work Phone: Are you now , , , , never or living with a partner? [facility] How often to you hav e a drink containing alcohol? Never [facility] Do you feel stress - tense, restless, nervous, or anxious, or unable to sleep at night because your mind is troubled all the time - these days [OSQ] Not at all [facility] (I/We) worried wheth er (my/our) food would run out before (I/we) got money to buy more. Never true [facility] Goals Date Patient Goal Desired Activity [...] Lo Cardoso Pss documented in this encounter [facility] 03-31-2023 Note HNO ID: [id number] Author: Topher Colon APRN.SONOGRAPHY TECHNICIAN Service: ? Author Type: Nurse Practitioner Type: [...] Drop in both eyes once daily. vit C,U-Hn-dgkdi-lutein-zeaxan (PRESERVISION AREDS-2) 250-90-40-1 mg Take 1 tablet [...] ER with red flag symptoms Topher Podlogar, OBSTETRICS NURSE.SONOGRAPHY TECHNICIAN Prescription instructions reviewed with patient as applicable. Patient advised if symptoms do not improve or if symptoms worsen sooner, to contact their primary care physician. Potential red flag symptoms discussed with the patient. Reviewed appropriate action plan to take if red flag symptoms occur. Patient agreeable to treatment plan. (more content not included)... [facility] 03-31-2023 Instructions Topher Colon APRN.CNP - 03/31/2023 10:42 AM EST May take mucinex over the counter as directed on package May use coricidin over the counter as directed on packaging documented in this encounter [facility] 03-31-2023 History of Presen t illness [...] Drop in both eyes once daily. vit C,S-Wa-ypxpg-lutein-zeaxan (PRESERVISION AREDS-2) 250-90-40-1 mg Take 1 tablet [...] ER with red flag symptoms Topher Colon APRN.SONOGRAPHY TECHNICIAN Prescription instructions reviewed with patient as applicable. [...] which included preparing to see the patient, [id number] patient care, completing clinical documentation, obtaining and/or reviewing separately obtained history, performing a medically appropriate examination, and counseling and educating the patient/family/caregiver. documented in this encounter [facility] 03-18-2023 Miscellaneous Notes Patient returned call [...] recommendations. [facility] Patient concerned about a recent BP reading of 167/97 (82). Patient very worried it is too high. Reports no symptoms and states I feel fine. Patient denies CP, SOB, dizziness, numbness, no fever. Reports this morning BP was 113/63, yesterday BP 106/61. Reports she received an RSV vaccine today at [facility]. Reports she received a pneumonia [...] numbness. Patient agreeable. documented in this encounter [facility] 03-15-2023 Note HNO ID: [id number] Author: Tony Soares MD Service: ? Author [...] Drop in both eyes once daily. vit C,S-Ll-nszbq-lutein-zeaxan (PRESERVISION AREDS-2) 250-90-40-1 mg Take 1 tablet [...] 25.95 kg/m? G (more content not included)... [facility] 03-15-2023 Instructions Tony Soares MD - 03/15/2023 2:17 PM EST Please follow up with your pharmacy for your RSV vaccine. documented in this encounter [facility] 03-15-2023 History of Presen t illness [...] Drop in both eyes once daily. vit C,P-Qw-zwqqr-lutein-zeaxan (PRESERVISION AREDS-2) 250-90-40-1 mg Take 1 tablet [...] Abs Lymph 1.00 - 4.00 k/uL 1.41 Buchanan% % 10.5 Abs Buchanan <0.87 k/uL 0.61 Eosin% % 0.9 Abs [...] Tony Soares MD documented in this encounter [facility] 03-05-2023 Note HNO ID: [id number] Author: Topher Colon APRN.SONOGRAPHY TECHNICIAN Service: ? Author Type: Nurse Practitioner Type: [...] Drop in both eyes once daily. vit C,Y-Ds-fcbis-lutein-zeaxan (PRESERVISION AREDS-2) 250-90-40-1 mg Take 1 tablet [...] Completed Depression Assess (more content not included)... [facility] 03-05-2023 History of Presen t illness Narrative [...] Drop in both eyes once daily. vit C,Q-Qa-hfays-lutein-zeaxan (PRESERVISION AREDS-2) 250-90-40-1 mg Take 1 tablet [...] which included preparing to see the patient, poyc-fm-bwti patient care, completing clinical documentation, obtaining and/or reviewing separately obtained history, performing a medically appropriate examination, and counseling and educating the patient/family/caregiver. documented in this encounter [facility] 03-05-2023 Miscellaneous Notes Pt states she has her BP cuff with her. Please have patient bring her home blood pressure cuff to appointment today. Topher Colon APRN.CNP documented in this encounter [facility] 02-24-2023 Miscellaneous Notes Patient returned call and went over results, notes from Dr Soares with understanding. Message left for patient to call office back for update. Lillie Hu LPN ----- Message from Tony Soares MD sent at 02/24/2023 8:02 AM EDT ----- Labs are stable/unremarkable. Iron levels normal. No anemia. No changes to regimen. documented in this encounter [facility] 02-23-2023 Note HNO ID: [id number] Author: Tony Soares MD Service: ? Author [...] Drop in both eyes once daily. vit C,F-Mv-hegnv-lutein-zeaxan (PRESERVISION AREDS-2) 250-90-40-1 mg Take 1 tablet [...] lesions. Lungs: Xenia (more content not included)... [facility] 02-18-2023 Miscellaneous Notes Pt calling in very [...] Pt verbalizes understanding. documented in this encounter [facility] 02-17-2023 Miscellaneous Notes Call placed to [...] held losartan. 6:16am 133/77. Pt went to [facility] to have endoscopy & BP there was 137/? Pt doesn't remember what the diastolic was. Today after lunch (20 mins before calling) BP was 168/73, pt states she will take losartan. Pt states she feels great! Instructions from pcp from phone note yesterday gone over again with pt. Beatriz Allison LPN documented in this encounter [facility] 02-16-2023 Miscellaneous Notes Phoned patient and [...] week bp check. documented in this encounter [facility] 02-08-2023 Note HNO ID: [id number] Author: Tony Soares MD Service: ? Author [...] Drop in both eyes once daily. vit C,P-Dk-tpbux-lutein-zeaxan (PRESERVISION AREDS-2) 250-90-40-1 mg Take 1 tablet [...] alert, in n (more content not included)... [facility] 02-08-2023 Instructions Tony Soares MD - 02/08/2023 8:29 AM EDT Call with high blood pressure readings above 140/90 or low less than 100/60. documented in this encounter [facility] 02-08-2023 History of Presen t illness [...] Drop in both eyes once daily. vit C,P-Ai-igzuh-lutein-zeaxan (PRESERVISION AREDS-2) 250-90-40-1 mg Take 1 tablet [...] Tony Soares MD documented in this encounter [facility] 02-05-2023 Miscellaneous Notes Phoned patient and [...] 120 mg once daily Pt last saw [employer], Dr. Iabrra on 11/10/22. She states at 11/10 Cardio [...] patient. Thank you. documented in this encounter [facility] 02-05-2023 Miscellaneous Notes Opened in error. Lynette Aguillon RN documented in this encounter [facility] 12-10-2022 Miscellaneous Notes Phoned patient and [...] call and advise. documented in this encounter [facility] 10-19-2022 Miscellaneous Notes Reviewed. Topher Colon [...] Topher Colon APRN.CNP documented in this encounter [facility] 10-16-2022 Miscellaneous Notes Phoned patient and [...] Topher Colon APRN.CNP documented in this encounter [facility] 10-16-2022 Miscellaneous Notes Pt returned call to office. See other TE. Bryant Mccormack LPN Patient telephoned, will pick[employer] and then hangs up. Will try back later. Lillie Hu LPN Please call patient and let her know her urine culture is still pending. How is she feeling today? Topher Colon APRN.COY documented in this encounter [facility] 10-14-2022 Note HNO ID: [id number] Author: Topher Colon APRN.CNP Service: ? Author [...] Drop in both eyes once daily. vit C,R-Ii-iyakl-lutein-zeaxan (PRESERVISION AREDS-2) 250-90-40-1 mg Take 1 tablet [...] flag symptoms Stephanie (more content not included)... [facility] 10-14-2022 Instructions Topher Colon APRN.CNP - 10/14/2022 4:00 PM EDT If you develop persistent pain with urination, increasing urgency/frequency, fever, confusion, abdominal pain, back pain or vomiting notify office documented in this encounter [facility] 10-14-2022 History of Presen t illness [...] Drop in both eyes once daily. vit C,M-Ka-ftsmc-lutein-zeaxan (PRESERVISION AREDS-2) 250-90-40-1 mg Take 1 tablet [...] if develops red flag symptoms Topher Podlogkenny, ALVIN.SONOGRAPHY TECHNICIAN Prescription instructions reviewed with patient as applicable. [...] which included preparing to see the patient, xykk-pz-rsxf patient care, completing clinical documentation, obtaining and/or reviewing separately obtained history, performing a medically appropriate examination, counseling and educating the patient/family/caregiver, and ordering medications, tests, or procedures. documented in this encounter [facility] 09-14-2022 Miscellaneous Notes Pt calls to report that Dr. Ng's office stated they did not receive orders to gastro that were faxed 09/09/22. Orders, OV notes, Results faxed to : [phone]. Marguerite Ngo LPN documented in this encounter [facility] 09-09-2022 Miscellaneous Notes Pt called and requested referral and supportive information for Gastro referral be faxed to Dr. Ng at [facility] [place]. Fax number [phone]. Done Pt will call to schedule apt. Meme Gant LPN documented in this encounter [facility] 09-07-2022 Note HNO ID: [id number] Author: Tony Soares MD Service: ? Author [...] Drop in both eyes once daily. vit C,W-It-pqboa-lutein-zeaxan (PRESERVISION AREDS-2) 250-90-40-1 mg Take 1 tablet [...] Negative for lesions, (more content not included)... [facility] documented as of this encounter (statuses as of 09/08/2022) [facility]23 History of Past illness Narrative* Problem Noted Date Resolved Date Melanoma 09/07/2022 documented as of this encounter (statuses as of 09/09/2022) [facility]2023 History of Past illness Narrative* Problem Noted Date Resolved Date Melanoma 09/07/2022 documented as of this encounter (statuses as of 09/14/2022) [address]-2023 History of Past illness Narrative* Problem Noted Date Resolved Date Melanoma 09/07/2022 documented as of this encounter (statuses as of 10/15/2022) [address]23 History of Past illness Narrative* Problem Noted Date Resolved Date Melanoma 09/07/2022 documented as of this encounter (statuses as of 10/16/2022) [facility] History of Past illness Narrative* Problem Noted Date Resolved Date Melanoma 09/07/2022 documented as of this encounter (statuses as of 10/23/2022) [facility]05-08-2023 History of Past illness Narrative* Problem Noted Date Diagnosed Date Resolved Date Melanoma 09/07/2022 documented as of this encounter (statuses as of 12/11/2022) [address]08-2023 History of Past illness Narrative* Problem Noted Date Diagnosed Date Resolved Date Melanoma 09/07/2022 documented as of this encounter (statuses as of 02/06/2023) [address]08-2023 History of Past illness Narrative* Problem Noted Date Diagnosed Date Resolved Date Melanoma 09/07/2022 documented as of this encounter (statuses as of 02/09/2023) [address]08-2023 History of Past illness Narrative* Problem Noted Date Diagnosed Date Resolved Date Melanoma 09/07/2022 documented as of this encounter (statuses as of 02/17/2023) [address]08-2023 History of Past illness Narrative* Problem Noted Date Diagnosed Date Resolved Date Melanoma 09/07/2022 documented as of this encounter (statuses as of 02/18/2023) [address]08-2023 History of Past illness Narrative* Problem Noted Date Diagnosed Date Resolved Date Melanoma 09/07/2022 documented as of this encounter (statuses as of 02/24/2023) [address]08-2023 History of Past illness Narrative* Problem Noted Date Diagnosed Date Resolved Date Melanoma 09/07/2022 documented as of this encounter (statuses as of 03/06/2023) [address]08-2023 History of Past illness Narrative* Problem Noted Date Diagnosed Date Resolved Date Melanoma 09/07/2022 documented as of this encounter (statuses as of 03/06/2023) [facility] History of Past illness Narrative* Problem Noted Date Diagnosed Date Resolved Date Melanoma 09/07/2022 documented as of this encounter (statuses as of 03/18/2023) [facility] History of Past illness Narrative* Problem Noted Date Diagnosed Date Resolved Date Melanoma 09/07/2022 documented as of this encounter (statuses as of 03/21/2023) [facility] History of Past illness Narrative* Problem Noted Date Diagnosed Date Resolved Date Melanoma 09/07/2022 documented as of this encounter (statuses as of 03/31/2023) [facility] History of Past illness Narrative* Problem Noted Date Diagnosed Date Resolved Date Melanoma 09/07/2022 documented as of this encounter (statuses as of 04/13/2023) [facility] History of Present illness Narrative* Tony [...] Drop in both eyes once daily. vit C,O-Na-yswxz-lutein-zeaxan (PRESERVISION AREDS-2) 250-90-40-1 mg Take 1 tablet [...] Abs Lymph 1.00 - 4.00 k/uL 2.43 Buchanan% % 10.5 Abs Buchanan <0.87 k/uL 0.95 (H) Eosin% % 4.9 [...] months. Tony Soares MD documented [facility] encounter[facility] Miscellaneous Notes* Telephone Encounter - YOSEPH [...] adhesions or bowel obstruction. documented in this encounterPark[facility]04-[facility]23 NoteHNO ID: [id number] Author: RT Talita(R) Service: ? Author Type: Pot Room Tapper Type: Progress Notes Filed: 08/20/2022 3:52 PM [...] [place] DATE: August 20, 2022 TIME: 3:52 [facility]04-17-2023 NoteHNO ID: [id number] Author: Tony Soares MD Service: ? Author [...] Drop in both eyes once daily. vit C,I-Ah-hpqyr-lutein-zeaxan (PRESERVISION AREDS-2) 250-90-40-1 mg Take 1 tablet [...] auscultation. No wheezing, rhonchi (more content not included)...[facility]04-10-2023 Miscellaneous Notes* Telephone Encounter - Elizabeth Alatorre [...] office. Elizabeth Alatorre MA documented in this encounterPark[facility]03-[facility] Miscellaneous Notes* Telephone Encounter - Dominguez [...] notify patient. Mary Snow documented in this encounterParkwood [facility]03-07-[facility]23 Miscellaneous Notes* Telephone Encounter - Tania Arreaga Cma - 07/07/2022 9:38 AM EST Patient notified and verbalized understanding Tania Arreaga Cma * Telephone Encounter - Cyndy Lopez APRN.CNP - 07/07/2022 9:04 AM EST Please let patient know that her mammogram is normal. Patient should continue with yearly screenings. documented in this encounterParkwood [facility]03-06-2023 NoteHNO ID: [id number] Author: Albina Fernandez Service: ? Author Type: Pot Room Tapper Type: Progress Notes Filed: 07/06/2022 1:42 PM [...] IV DATA: Not applicable SIGNED BY: Mariusz FernandezNovint Ce July 06, 2022 1:13 [facility]03-02-2023 Miscellaneous Notes* Telephone Encounter - Tony [...] symptoms since her OV? documented in this encounterParkwood [facility]02-28-2023 NoteHNO ID: [id number] Author: Tony Soares MD Service: ? Author [...] Drop in both eyes once daily. vit C,W-Gv-mepda-lutein-zeaxan (PRESERVISION AREDS-2) 250-90-40-1 mg Take 1 tablet [...] No masses, organomegaly. Extrem (more content not included)...[facility]12-01-2022 Miscellaneous Notes* Telephone Encounter - Zunilda Mckeon [...] Lo De La Cruz documented in this encounterParkwood Hospital11-[facility] History of Present illness Narrative* Topher [...] Drop in both eyes once daily. vit C,G-Np-twtgv-lutein-zeaxan (PRESERVISION AREDS-2) 250-90-40-1 mg Take 1 tablet [...] Abs Lymph 1.00 - 4.00 k/uL 1.83 Buchanan% % 9.6 Abs Buchanan <0.87 k/uL 0.65 Eosin% % 5.3 Abs [...] which included preparing to see the patient, [id number] patient care, completing clinical documentation, obtaining and/or reviewing separately obtained history, performing a medically appropriate examination, and counseling and educating the patient/family/caregiver. documented in this encounterParkwood [facility]09-[facility]-20[facility] History of Present illness Narrative* Celia [...] Drop in both eyes once daily. vit C,X-Ri-zjexv-lutein-zeaxan (PRESERVISION AREDS-2) 250-90-40-1 mg Take 1 tablet [...] plan. Celia David APRN.COY documented in this encounterParkwood Hospital08-22-2022 History of Present illness Narrative* Tony [...] Drop in both eyes once daily. vit C,J-Tf-dmnzv-lutein-zeaxan (PRESERVISION AREDS-2) 250-90-40-1 mg Take 1 tablet [...] above. Tony Soares MD documented in this encounterParkwood Hospital08-22-2022 Miscellaneous Notes* Telephone Encounter - Tony [...] Wednesday night. Protocols used: Abdominal Pain - [id number] * Telephone Encounter - Beatriz Isaac LPN [...] her current abx regimen? documented in this encounterParkwood Hospital08-18-2022 History of Present illness Narrative* Tony [...] Drop in both eyes once daily. vit C,Z-Uw-abptg-lutein-zeaxan (PRESERVISION AREDS 2) 792-603-66-1 ol-xnjd-kb-mg cap Take 1 tablet by mouth twice [...] CULTURE Tony Soares MD documented in this encounterParkwood Hospital08-08-2022 Miscellaneous Notes* Telephone Encounter - Bridget [...] improved after completing abx. documented in this encounterParkwood Hospital08-05-2022 Miscellaneous Notes* Telephone Encounter - Beatriz Isaac LPN - 12/05/2021 10:21 AM EDT Phoned patient 12/04/[facility] at [facility] to be sure she understood there [...] call with any questions. documented in this encounterParkwood Hospital08-04-2022 Miscellaneous Notes* Telephone Encounter - Tony [...] in urine 9. :no Protocols used: URINARY [id number], URINATION PAIN - [id number] documented in this encounterParkwood Hospital08-04-2022 Miscellaneous Notes* Telephone Encounter - Lynette [...] 2 weeks. Please advise. documented in this encounterParkwood Hospital06-29-2022 Miscellaneous Notes* Telephone Encounter - Amber [...] patient. Amber Gant Pss documented in this encounterParkwood Hospital06-16-2022 Miscellaneous Notes* Telephone Encounter - Lo [...] advise. Lo Cardoso Pss documented in this encounterParkwood Hospital05-25-2022 History of Present illness Narrative* Tony [...] Drop in both eyes once daily. vit C,D-Hl-eahmz-lutein-zeaxan (PRESERVISION AREDS 2) 377-273-40-1 wc-dofc-ef-mg cap Take 1 tablet by mouth twice [...] weeks. Tony Soares MD documented in this encounterParkwood Hospital05-04-2022 Miscellaneous Notes* Telephone Encounter - Lillie [...] differently. Meme Gant LPN documented in this encounterParkwood Hospital05-03-2022 Miscellaneous Notes* Telephone Encounter - TORRI [...] in acceptable ranges. Continue current medications. Thanks, Tohper Colon APRN.CNP documented in this encounterParkwood Hospital05-02-2022 History of Present illness Narrative* Tony [...] over left forehead. Patient states that her hairspring studder recommended Viviscal for thinning hair. Has rx, [...] Drop in both eyes once daily. vit C,K-Ug-ledrp-lutein-zeaxan (PRESERVISION AREDS 2) 359-599-92-1 bo-npzk-cn-mg cap Take 1 tablet by mouth twice [...] months. Tony Soares MD documented in this encounterParkwood Hospital04-12-2022 Miscellaneous Notes* Telephone Encounter - Kyra Norris LPN - 08/12/2021 4:35 PM EDT APPROVED until further notice . Briana Norris LPN * Telephone Encounter - Kyra Norris LPN - 08/07/2021 3:15 PM EDT Prior Authorization has been completed online at [employer] for Hydroxyzine, will await response. SWIFT- [id number] Please keep encounter open until final decision has been received and documented from insurance company. Briana Norris LPN documented in this encounterParkwood HospitalEvaluation note* Diagnosis Thinning hair- Primary Alopecia, [...] of cerebral infarction [facility]* Diagnosis Plantar fasciitis- Primary Plantar fascial fibromatosis documented [facility] this encounter [facility]* Diagnosis Recurrent UTI (urinary tract infection)- Primary Urinary tract infection, site not specified Dysuria documented in this encounter [facility]* Diagnosis LLQ pain- Primary Abdominal pain, left lower quadrant Epigastric pain Abdominal pain, epigastric documented in this encounter [facility]* Diagnosis Burning with urination- Primary Dysuria documented in this encounter [facility]* Diagnosis Primary hypertension- Primary Unspecified essential hypertension Post herpetic neuralgia 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 Heart murmur Undiagnosed cardiac murmurs Gastroesophageal reflux disease with esophagitis, unspecified whether hemorrhage Hyperlipidemia, unspecified hyperlipidemia type Nonrheumatic aortic valve stenosis Aortic valve disorders Shoulder blade pain Disorder of bone and cartilage, unspecified documented in this encounter [facility]* Diagnosis Chronic kidney disease, stage 3a [...] of cerebral infarction documented [facility] encounter [facility]* Diagnosis Dysuria- Primary documented [facility] encounter [facility]* Diagnosis Primary hypertension- Primary Unspecified essential hypertension documented [facility] this encounter [facility]* Diagnosis Primary hypertension- Primary Unspecified essential hypertension documented [facility] this encounter [facility]* Diagnosis Primary hypertension- Primary Unspecified essential [...] unspecified type (HCC) documented in this encounter [facility]* Diagnosis Acute cough- Primary documented in this encounter [facility] Advance Directives Documents on File Type Date Recorded Patient Scanning Manager Expl anation Advance Directive(s) 02/15/2019 8:21 AM Reason for Referral Specialty Diagnoses / Procedures Referred By Kira t Referred To Contact Gastroenterology Diagnoses LLQ abdominal pain Procedures CONSULT TO GASTROENTEROLOGY OFFICE/OUTPATIENT [facility] 60-74 MINUTES Tony Soares MD [address] [facility] [place] [place] [address] Referral ID Status Reason Start Date Expiration Date Visits Requested Visits Authorized [id number] Authorized PCP Requested Referral 09/07/2022 09/07/2023 1 [...] or prosecute any alcohol or drug abuse patient.[facility] HospitalIn the event this information is protected by the Federal Confidentiality of Alcohol and Drug Abuse Patient Records regulations: The Federal rules restrict any use of the information to criminally investigate or prosecute any alcohol or drug abuse patient.[facility] HospitalIn the event this information is protected by the Federal Confidentiality of Alcohol and Drug Abuse Patient Records regulations: The Federal rules restrict any use of the information to criminally investigate or prosecute any alcohol or drug abuse patient.[facility] HospitalIn the event this information is protected by the Federal Confidentiality of Alcohol and Drug Abuse Patient Records regulations: The Federal rules restrict any use of the information to criminally investigate or prosecute any alcohol or drug abuse patient.[facility] HospitalIn the event this information is protected by the Federal Confidentiality of Alcohol and Drug Abuse Patient Records regulations: The Federal rules restrict any use of the information to criminally investigate or prosecute any alcohol or drug abuse patient.[facility] HospitalIn the event this information is protected by the Federal Confidentiality of Alcohol and Drug Abuse Patient Records regulations: The Federal rules restrict any use of the information to criminally investigate or prosecute any alcohol or drug abuse patient.[facility] HospitalIn the event this information is protected by the Federal Confidentiality of Alcohol and Drug Abuse Patient Records regulations: The Federal rules restrict any use of the information to criminally investigate or prosecute any alcohol or drug abuse patient.[facility] HospitalIn the event this information is protected by the Federal Confidentiality of Alcohol and Drug Abuse Patient Records regulations: The Federal rules restrict any use of the information to criminally investigate or prosecute any alcohol or drug abuse patient.[facility] HospitalIn the event this information is protected by the Federal Confidentiality of Alcohol and Drug Abuse Patient Records regulations: The Federal rules restrict any use of the information to criminally investigate or prosecute any alcohol or drug abuse patient.[facility] HospitalIn the event this information is protected by the Federal Confidentiality of Alcohol and Drug Abuse Patient Records regulations: The Federal rules restrict any use of the information to criminally investigate or prosecute any alcohol or drug abuse patient.[facility] HospitalIn the event this information is protected by the Federal Confidentiality of Alcohol and Drug Abuse Patient Records regulations: The Federal rules restrict any use of the information to criminally investigate or prosecute any alcohol or drug abuse patient.[facility] HospitalIn the event this information is protected by the Federal Confidentiality of Alcohol and Drug Abuse Patient Records regulations: The Federal rules restrict any use of the information to criminally investigate or prosecute any alcohol or drug abuse patient.[facility] HospitalIn the event this information is protected by the Federal Confidentiality of Alcohol and Drug Abuse Patient Records regulations: The Federal rules restrict any use of the information to criminally investigate or prosecute any alcohol or drug abuse patient.[facility] HospitalIn the event this information is protected by the Federal Confidentiality of Alcohol and Drug Abuse Patient Records regulations: The Federal rules restrict any use of the information to criminally investigate or prosecute any alcohol or drug abuse patient.[facility] HospitalIn the event this information is protected by the Federal Confidentiality of Alcohol and Drug Abuse Patient Records regulations: The Federal rules restrict any use of the information to criminally investigate or prosecute any alcohol or drug abuse patient.[facility] HospitalIn the event this information is protected by the Federal Confidentiality of Alcohol and Drug Abuse Patient Records regulations: The Federal rules restrict any use of the information to criminally investigate or prosecute any alcohol or drug abuse patient.[facility] HospitalIn the event this information is protected by the Federal Confidentiality of Alcohol and Drug Abuse Patient Records regulations: The Federal rules restrict any use of the information to criminally investigate or prosecute any alcohol or drug abuse patient.[facility] HospitalIn the event this information is protected by the Federal Confidentiality of Alcohol and Drug Abuse Patient Records regulations: The Federal rules restrict any use of the information to criminally investigate or prosecute any alcohol or drug abuse patient.[facility] HospitalIn the event this information is protected by the Federal Confidentiality of Alcohol and Drug Abuse Patient Records regulations: The Federal rules restrict any use of the information to criminally investigate or prosecute any alcohol or drug abuse patient.[facility] HospitalIn the event this information is protected by the Federal Confidentiality of Alcohol and Drug Abuse Patient Records regulations: The Federal rules restrict any use of the information to criminally investigate or prosecute any alcohol or drug abuse patient.[facility] HospitalIn the event this information is protected by the Federal Confidentiality of Alcohol and Drug Abuse Patient Records regulations: The Federal rules restrict any use of the information to criminally investigate or prosecute any alcohol or drug abuse patient.[facility] HospitalIn the event this information is protected by the Federal Confidentiality of Alcohol and Drug Abuse Patient Records regulations: The Federal rules restrict any use of the information to criminally investigate or prosecute any alcohol or drug abuse patient.[facility] HospitalIn the event this information is protected by the Federal Confidentiality of Alcohol and Drug Abuse Patient Records regulations: The Federal rules restrict any use of the information to criminally investigate or prosecute any alcohol or drug abuse patient.[facility] HospitalIn the event this information is protected by the Federal Confidentiality of Alcohol and Drug Abuse Patient Records regulations: The Federal rules restrict any use of the information to criminally investigate or prosecute any alcohol or drug abuse patient.[facility] HospitalIn the event this information is protected by the Federal Confidentiality of Alcohol and Drug Abuse Patient Records regulations: The Federal rules restrict any use of the information to criminally investigate or prosecute any alcohol or drug abuse patient.[facility] HospitalIn the event this information is protected by the Federal Confidentiality of Alcohol and Drug Abuse Patient Records regulations: The Federal rules restrict any use of the information to criminally investigate or prosecute any alcohol or drug abuse patient.[facility] HospitalIn the event this information is protected by the Federal Confidentiality of Alcohol and Drug Abuse Patient Records regulations: The Federal rules restrict any use of the information to criminally investigate or prosecute any alcohol or drug abuse patient.[facility] HospitalIn the event this information is protected by the Federal Confidentiality of Alcohol and Drug Abuse Patient Records regulations: The Federal rules restrict any use of the information to criminally investigate or prosecute any alcohol or drug abuse patient.[facility] HospitalIn the event this information is protected by the Federal Confidentiality of Alcohol and Drug Abuse Patient Records regulations: The Federal rules restrict any use of the information to criminally investigate or prosecute any alcohol or drug abuse patient.[facility] HospitalIn the event this information is protected by the Federal Confidentiality of Alcohol and Drug Abuse Patient Records regulations: The Federal rules restrict any use of the information to criminally investigate or prosecute any alcohol or drug abuse patient.[facility] HospitalIn the event this information is protected by the Federal Confidentiality of Alcohol and Drug Abuse Patient Records regulations: The Federal rules restrict any use of the information to criminally investigate or prosecute any alcohol or drug abuse patient.[facility] HospitalIn the event this information is protected by the Federal Confidentiality of Alcohol and Drug Abuse Patient Records regulations: The Federal rules restrict any use of the information to criminally investigate or prosecute any alcohol or drug abuse patient.[facility] HospitalIn the event this information is protected by the Federal Confidentiality of Alcohol and Drug Abuse Patient Records regulations: The Federal rules restrict any use of the information to criminally investigate or prosecute any alcohol or drug abuse patient.[facility] HospitalIn the event this information is protected by the Federal Confidentiality of Alcohol and Drug Abuse Patient Records regulations: The Federal rules restrict any use of the information to criminally investigate or prosecute any alcohol or drug abuse patient.[facility] HospitalIn the event this information is protected by the Federal Confidentiality of Alcohol and Drug Abuse Patient Records regulations: The Federal rules restrict any use of the information to criminally investigate or prosecute any alcohol or drug abuse patient.[facility] HospitalIn the event this information is protected by the Federal Confidentiality of Alcohol and Drug Abuse Patient Records regulations: The Federal rules restrict any use of the information to criminally investigate or prosecute any alcohol or drug abuse patient.[facility] HospitalIn the event this information is protected by the Federal Confidentiality of Alcohol and Drug Abuse Patient Records regulations: The Federal rules restrict any use of the information to criminally investigate or prosecute any alcohol or drug abuse patient.[facility] HospitalIn the event this information is protected by the Federal Confidentiality of Alcohol and Drug Abuse Patient Records regulations: The Federal rules restrict any use of the information to criminally investigate or prosecute any alcohol or drug abuse patient.[facility] HospitalIn the event this information is protected by the Federal Confidentiality of Alcohol and Drug Abuse Patient Records regulations: The Federal rules restrict any use of the information to criminally investigate or prosecute any alcohol or drug abuse patient.[facility] HospitalIn the event this information is protected by the Federal Confidentiality of Alcohol and Drug Abuse Patient Records regulations: The Federal rules restrict any use of the information to criminally investigate or prosecute any alcohol or drug abuse patient.[facility] HospitalIn the event this information is protected by the Federal Confidentiality of Alcohol and Drug Abuse Patient Records regulations: The Federal rules restrict any use of the information to criminally investigate or prosecute any alcohol or drug abuse patient.[facility] HospitalIn the event this information is protected by the Federal Confidentiality of Alcohol and Drug Abuse Patient Records regulations: The Federal rules restrict any use of the information to criminally investigate or prosecute any alcohol or drug abuse patient.[facility] HospitalIn the event this information is protected by the Federal Confidentiality of Alcohol and Drug Abuse Patient Records regulations: The Federal rules restrict any use of the information to criminally investigate or prosecute any alcohol or drug abuse patient.[facility] Reason for Visit (unrecogniz ed section [...] Care Teams (unrecognized sec tion and content) Cook Cold Meat Relationship Specialty Start Date End Date Tony Soares MD [address] [place] [address] PCP - General Family Practice 08/14/16 Felton Yancey [address] [place] [address] Pain Management 05/13/18 Ender Lucio [address] [facility] [address] Dermatology 05/13/18 Romie Cueto (Hist) [address] [facility] [address] Cardiology 05/13/18 Stacey, [place] [address] [place] [address] Physician Cardiology 07/11/18 Cook Cold Meat Relationship Specialty Start Date End Date Tony Soares MD [address] [facility] [place] [address] PCP - General Family Practice 08/14/16 Felton Yancey [address] [place] [address] Pain Management 05/13/18 Ender Lucio [address] [facility] [place] [address] Dermatology 05/13/18 Romie Cueto (Hist) [address] [facility] [place] [address] Cardiology 05/13/18 Stacey, [place] S [address] [place] [address] Physician Cardiology 07/11/18 Cook Cold Meat Relationship Specialty Start Date End Date Tony Soares MD [address] [facility] [place] [address] PCP - General Family Practice 08/14/16 Felton Yancey [address] [place] [address] Pain Management 05/13/18 Ender Lucio [address] [place] [address] Dermatology 05/13/18 Romie Cueto (Hist) [address] [place] [address] Cardiology 05/13/18 Stacey, [place] S [address] [place] [address] Physician Cardiology 07/11/18 Cook Cold Meat Relationship Specialty Start Date End Date Tony Soares MD [address] [facility] [place] [address] PCP - General Family Practice 08/14/16 Felton Yancey [address] [place] [address] Pain Management 05/13/18 Ender Lucio [address] [place] [address] Dermatology 05/13/18 Romie Cueto (Hist) [address] [place] [address] Cardiology 05/13/18 Stacey, Levy S [address] [place] [address] Physician Cardiology 07/11/18 Cook Cold Meat Relationship Specialty Start Date End Date Tony Soares MD [address] [facility] [place] [address] PCP - General Family Practice 08/14/16 Felton Yancey [address] [place] [address] Pain Management 05/13/18 Ender Lucio [address] [place] [address] Dermatology 05/13/18 Romie Cueto (Hist) [address] [place] [address] Cardiology 05/13/18 Stacey, [place] S [address] [place] [address] Physician Cardiology 07/11/18 Cook Cold Meat Relationship Specialty Start Date End Date Tony Soares MD [address] [facility] [place] [address] PCP - General Family Practice 08/14/16 Felton Yancey [address] [place] [address] Pain Management 05/13/18 Ender Lucio [address] [place] [address] Dermatology 05/13/18 Romie Cueto (Hist) [address] [place] [address] Cardiology 05/13/18 Stacey, [place] S [address] [place] [address] Physician Cardiology 07/11/18 Cook Cold Meat Relationship Specialty Start Date End Date Tony Soares MD [address] [facility] [place] [address] PCP - General Family Practice 08/14/16 Felton Yancey [address] [place] [address] Pain Management 05/13/18 Ender Lucio [address] [place] [address] Dermatology 05/13/18 Romie Cueto (Hist) [address] [place] [address] Cardiology 05/13/18 Stacey, [place] S [address] [place] [address] Physician Cardiology 07/11/18 Cook Cold Meat Relationship Specialty Start Date End Date Tony Soares MD [address] [facility] [place] [address] PCP - General Family Medicine 08/14/16 Felton Yancey [address] [place] [address] Pain Management 05/13/18 Ender Lucio [address] [place] [address] Dermatology 05/13/18 Romie Cueto (Hist) [address] [place] [address] Cardiology 05/13/18 Stacey, Levy S [address] [place] [address] Physician Cardiology 07/11/18 Cook Cold Meat Relationship Specialty Start Date End Date Tony Soares MD [address] [facility] [place] [address] PCP - General Family Medicine 08/14/16 Felton Yancey [address] [place] [address] Pain Management 05/13/18 Ender Lucio [address] [place] [address] Dermatology 05/13/18 Romie Cueto (Hist) [address] [place] [address] Cardiology 05/13/18 Stacey, [place] S [address] [place] [address] Physician Cardiology 07/11/18 Cook Cold Meat Relationship Specialty Start Date End Date Tony Soares MD [address] [facility] [place] [address] PCP - General Family Medicine 08/14/16 Felton Yancey [address] [place] [address] Pain Management 05/13/18 Ender Lucio [address] [place] [address] Dermatology 05/13/18 Romie Cueto [address] [place] [address] Cardiology 05/13/18 Stacey, Levy S [address] [place] [address] Physician Cardiology 07/11/18 Cook Cold Meat Relationship Specialty Start Date End Date Tony Soares MD [address] [facility] [place] [address] PCP - General Family Medicine 08/14/16 Felton Yancey [address] [place] [address] Pain Management 05/13/18 Ender Lucio [address] [place] [address] Dermatology 05/13/18 Romie Cueto [address] [place] [address] Cardiology 05/13/18 Stacey, Levy S [address] [place] [address] Physician Cardiology 07/11/18 Cook Cold Meat Relationship Specialty Start Date End Date Tony Soares MD [address] [facility] [place] [address] PCP - General Family Medicine 08/14/16 Felton Yancey [address] [place] [address] Pain Management 05/13/18 Ender Lucio [address] [place] [address] Dermatology 05/13/18 Romie Cueto [address] [place] [address] Cardiology 05/13/18 Stacey, [place] S [address] [place] [address] Physician Cardiology 07/11/18 Cook Cold Meat Relationship Specialty Start Date End Date Tony Soares MD [address] [facility] [place] [address] PCP - General Family Medicine 08/14/16 Felton Yancey [address] [place] [address] Pain Management 05/13/18 Ender Lucio [address] [place] [address] Dermatology 05/13/18 Romie Cueto [address] [place] [address] Cardiology 05/13/18 Stacey, Levy S [address] [place] [address] Physician Cardiology 07/11/18 Cook Cold Meat Relationship Specialty Start Date End Date Tony Soares MD [address] [facility] [place] [address] PCP - General Family Medicine 08/14/16 Felton Yancey [address] [place] [address] Pain Management 05/13/18 Ender Lucio [address] [place] [address] Dermatology 05/13/18 Romie Cueto [address] [place] [address] Cardiology 05/13/18 Stacey, Levy S [address] [place] [address] Physician Cardiology 07/11/18 Cook Cold Meat Relationship Specialty Start Date End Date Tony Soares MD [address] [facility] [place] [address] PCP - General Family Medicine 08/14/16 Felton Yancey [address] [place] [address] Pain Management 05/13/18 Ender Lucio [address] [place] [address] Dermatology 05/13/18 Romie Cueto [address] [place] [address] Cardiology 05/13/18 Stacey, [place] S [address] [place] [address] Physician Cardiology 07/11/18 Cook Cold Meat Relationship Specialty Start Date End Date Tony Soares MD [address] [facility] [place] [address] PCP - General Family Medicine 08/14/16 Felton Yancey [address] [place] [address] Pain Management 05/13/18 Ender Lucio [address] [place] [address] Dermatology 05/13/18 Romie Cueto [address] [place] [address] Cardiology 05/13/18 Stacey, Levy S [address] [place] [address] Physician Cardiology 07/11/18 Cook Cold Meat Relationship Specialty Start Date End Date Tony Soares MD [address] [facility] [place] [address] PCP - General Family Medicine 08/14/16 Felton Yancey [address] [place] [address] Pain Management 05/13/18 Ender Lucio [address] [place] [address] Dermatology 05/13/18 Romie Cueto [address] [place] [address] Cardiology 05/13/18 Levy Ibarra [address] [place] [address] Physician Cardiology 07/11/18 Cook Cold Meat Relationship Specialty Start Date End Date Tony Soares MD [address] [facility] [place] [address] PCP - General Family Medicine 08/14/16 Felton Yancey [address] [place] [address] Pain Management 05/13/18 Ender Lucio [address] [place] [address] Dermatology 05/13/18 Romie Cueto [address] [place] [address] Cardiology 05/13/18 Levy Ibarra [address] [place] [address] Physician Cardiology 07/11/18 Cook Cold Meat Relationship Specialty Start Date End Date Tony Soares MD [address] [facility] [place] [address] PCP - General Family Medicine 08/14/16 Felton Yancey MD [address] [place] [address] Pain Management 05/13/18 Ender Lucio MD [address] [place] [address] Dermatology 05/13/18 Romie Cueto [address] [place] [address] Cardiology 05/13/18 Levy Ibarra MD [address] [place] [address] Physician Cardiology 07/11/18 Cook Cold Meat Relationship Specialty Start Date End Date Tony Soares MD [address] [facility] [place] [address] PCP - General Family Medicine 08/14/16 Felton Yancey MD [address] [place] [address] Pain Management 05/13/18 Ender Lucio MD [address] [place] [address] Dermatology 05/13/18 Romie Cueto [address] [place] [address] Cardiology 05/13/18 Levy Ibarra MD [address] [place] [address] Physician Cardiology 07/11/18 Cook Cold Meat Relationship Specialty Start Date End Date Tony Soares MD [address] [place] [address] PCP - General Family Medicine 08/14/16 Felton Yancey MD [address] [facility] [place] [address] Pain Management 05/13/18 Ender Lucio MD [address] [place] [address] Dermatology 05/13/18 Romie Cueto [address] [place] [address] Cardiology 05/13/18 Levy Ibarra MD [address] [place] [address] Physician Cardiology 07/11/18 Cook Cold Meat Relationship Specialty Start Date End Date Tony Soares MD [address] [facility] [place] [address] PCP - General Family Medicine 08/14/16 Felton Yancey MD [address] [place] [address] Pain Management 05/13/18 Ender Lucio MD [address] [place] [address] Dermatology 05/13/18 Romie Cueto [address] [place] [address] (Fax) Cardiology 05/13/18 Levy Ibarra MD [address] [facility] [address] [place] [address] Physician Cardiology 07/11/18 Cook Cold Meat Relationship Specialty Start Date End Date Tony Soares MD [address] [place] [address] PCP - General Family Medicine 08/14/16 Felton Yancey MD [address] [facility] 3 [place] [address] Pain Management 05/13/18 Ender Lucio MD [address] [place] [address] Dermatology 05/13/18 Romie Cueto [address] [place] [address] Cardiology 05/13/18 Levy Ibarra MD [address] [place] [address] Physician Cardiology 07/11/18 Cook Cold Meat Relationship Specialty Start Date End Date Tony Soares MD [address] [place] [address] PCP - General Family Medicine 08/14/16 Felton Yancey MD [address] [address] Pain Management 05/13/18 Ender Lucio MD [address] [place] [address] Dermatology 05/13/18 Romie Cueto [address] [place] [address] Cardiology 05/13/18 Levy Ibarra MD [address] [address] Physician Cardiology 07/11/18 Cook Cold Meat Relationship Specialty Start Date End Date Tony Soares MD [address] [place] [address] PCP - General Family Medicine 08/14/16 Felton Yancey MD [address] [address] Pain Management 05/13/18 Ender Lucio MD [address] [place] [address] Dermatology 05/13/18 Romie Cueto [address] [place] [place], [place] [address] Cardiology 05/13/18 Levy Ibarra MD [address] [address] Physician Cardiology 07/11/18 Cook Cold Meat Relationship Specialty Start Date End Date Tony Soares MD [address] [place] [address] PCP - General Family Medicine 08/14/16 Felton Yancey MD [address] [address] Pain Management 05/13/18 Ender Lucio MD [address] [place] [address] Dermatology 05/13/18 Romie Cueto [address] [place] [address] Cardiology 05/13/18 Levy Ibarra MD [address] [address] Physician Cardiology 07/11/18 INFORMATION SOURCE (unrecogn ized [...] BE BASED ON THE PRIMARY CLINICAL RECORDS. [employer] [facility]. provides no warranty or guarantee of the accuracy or completeness of information in this document.
[2023-05-17 19:23] VITALS: PULSE 160; RESP 33; O2SAT 97
[2023-05-17 19:36] VITALS: BP 152/118; PULSE 145; RESP 28; O2SAT 90; BMI 24.7
[2023-05-17 19:45] LABS: Absolute Lymphocyte Count 1.81 X10^3/uL (0.83-4.51); Absolute Neutrophil Count 6.1 X10^3/uL (2.0-7.7); Basophil# 0.09 X10^3/uL; Eosinophil# 0.01 X10^3/uL; Eosinophils% 0.1 % (0-5); Hematocrit 45.1 % (37-47); Hemoglobin 14.6 g/dL (12.0-15.0); Lymphocyte # 1.81 X10^3/ul (0.83-4.51); Lymphocyte % 20.2 % (19-41); Mean Corp Hgb Conc 32.4 g/dL (32-36); Mean Corpuscular Hgb 30.7 pg (27.0-32.0); Mean Corpuscular Volume 94.9 fL (81-99); Mean Platelet Vol. 9.2 fl (6.2-12.0); Monocyte# 0.89 X10^3/uL; NRBC Flagged by Analyzer 0 % (0-5); Neutrophil # 6.12 X10^3/uL (2.7-7.7); Neutrophil % 68.5 % (47-70); Platelet Count 286 K/mm3 (150-450); RBC Distribution Width CV 16.3 % (11.6-14.6); RBC Distribution Width SD 56.4 fl (35.1-43.9); Red Blood Count 4.75 M/mm3 (4.2-5.4); White Blood Count 8.9 K/mm3 (4.4-11.0)
--- NOTE | 2023-05-17 19:48 | EKG12_ITS ---
Test Reason : Blood Pressure : / mmHG Vent. Rate : 120 BPM Atrial Rate : 000 BPM P-R Int : 000 ms QRS Dur : 072 ms QT Int : 308 ms P-R-T Axes : 000 -08 -13 degrees QTc Int : 435 ms Atrial fibrillation with rapid ventricular response Minimal voltage criteria for LVH, may be normal variant ( R in aVL ) Nonspecific T wave abnormality Abnormal ECG Confirmed by PAWAN SHAH, ANA LUISA ([id number]), market editor LIV TADEO ([id number]) on 05/19/2023 9:16:51 AM Referred By: Confirmed By:ANA LUISA VILLALTA MD
--- NOTE | 2023-05-17 19:53 | EDS_ITS ---
HPI <JEFFERSON Marrero - Last Filed: 05/17/23 20:50> History of Present Illness Chief Complaint: Diarrhea Narrative Narrative: 83-year-old female with PMH of HTN, HLD, A-fib, GERD, CKD, mitral regurgitation presents after having 3 episodes of loose dark stool yesterday. She had no associated abdominal pain. She states she had 6 no appetite but denies nausea or vomiting. She has not had any further bowel movements today but due to the decreased appetite and generally not feeling well she presents for evaluation. She is having normal urination. She is on Eliquis for A-fib. PFSH <JEFFERSON Marrero - Last Filed: 05/17/23 20:50> FOR[facility]LY [facility] Medical History Ambulates with cane Anemia Aortic stenosis Basal cell carcinoma Bladder disease Cancer Cardiology follow-up encounter Chronic urticaria CKD (chronic kidney disease) stage 3, GFR 30-59 ml/min Concussion Dyspnea on exertion Easy bruising Essential (primary) hypertension Former smoker GERD (gastroesophageal reflux disease) Glaucoma Heart murmur High cholesterol History of basal cell cancer History of echocardiogram History of edema History of melanoma History of rectocele History of renal disease History of shingles History of stress test Hyperlipidemia Injury of head and neck Leg cramps LLQ abdominal pain Migraine headache Nonrheumatic aortic (valve) insufficiency Nonrheumatic mitral (valve) insufficiency Premature atrial contractions Seasonal allergies Secondary pulmonary arterial hypertension Shortness of breath on exertion Wears glasses Home Medications biotin 10,000 mcg disintegrating tablet 10,000 mcg PO DAILY 05/28/17 [History Last Taken 06/03/20] famotidine 40 mg tablet 40 mg PO BID 05/28/17 [History Last Taken 06/03/20] atorvastatin 10 mg tablet 10 mg PO QHS cholesterol 10/05/19 [History Last Taken 06/02/20] dorzolamide 22.3 mg-timolol 6.8 mg/mL eye drops 1 drp EACH EYE BID 12/22/21 [History Last Taken Unknown] latanoprost 0.005 % eye drops 1 drp EACH EYE DAILY 12/22/21 [History Last Taken Unknown] brimonidine 0.2 % eye drops 2 drp EACH EYE BID 11/10/22 [History Last Taken Unknown] cholecalciferol (vitamin D3) 25 mcg (1,000 unit) capsule 2,000 unit PO DAILY supplement 11/10/22 [History Last Taken Unknown] cyanocobalamin (vitamin B-12) 1,000 mcg tablet 2,000 mcg PO DAILY supplement 11/10/22 [History Last Taken Unknown] gabapentin 300 mg capsule 300 mg PO QHS 11/10/22 [History Last Taken Unknown] melatonin 5 mg tablet 5 mg PO HS PRN sleep 11/10/22 [History Last Taken Unknown] pantoprazole 40 mg tablet,delayed release 40 mg PO Q12H 12 weeks #168 tabs 02/17/23 [Rx Last Taken Unknown] Handicap placard #1 ea 04/12/23 [Rx Last Taken Unknown] apixaban 5 mg tablet (Eliquis) 5 mg PO BID #60 tabs 04/12/23 [Rx Last Taken Unknown] vitamins A,C,E-swpe-jxqdxw 4,296 mcg-226 mg-90 mg capsule 1 cap PO BID eye health 04/12/23 [History Last Taken Unknown] furosemide 40 mg tablet (Lasix) 40 mg PO DAILY #90 tabs 04/13/23 [Rx Last Taken Unknown] potassium chloride 20 mEq tablet,extended release 20 meq PO DAILY #90 tabs 04/13/23 [Rx Last Taken Unknown] losartan 50 mg tablet 25 mg PO DAILY 05/04/23 [History Last Taken Unknown] diltiazem HCl 120 mg capsule,extended release 24 hr 120 mg PO DAILY heart #90 caps 05/13/23 [Rx Last Taken Unknown] nitrofurantoin monohydrate/macrocrystals 100 mg capsule 1 cap PO Q12H 7 days #14 caps 05/14/23 [Rx Last Taken Unknown] Allergy/AdvReac Type Severity Reaction Status Date / Time oxycodone [From Percocet] AdvReac Upset Verified 05/17/23 17:02 Stomach Family History Mother Anemia Hypertension Brother Hypertension Grandfather Cancer Surgical History History of appendectomy History of bilateral cataract extraction History of hemorrhoidectomy History of hysterectomy History of laparoscopy History of repair of right rotator cuff Hx of colonoscopy Social History Smoking Status: Former smoker Tobacco: How many years used: 25 how long ago did patient quit smokin alcohol intake: never substance use type: does not use what type of physical activity do you participate in: none ROS <JEFFERSON Marrero - Last Filed: 05/17/23 20:50> ROS ED ROS Narrative Constitutional: Negative for fever, chills, malaise. CVS: Negative for palpitations, chest pain, syncope. Respiratory: Negative for shortness of breath. GI: Positive for diarrhea, melena. Negative for abdominal pain, nausea, vomiting. EXAM <JEFFERSON Marrero - Last Filed: 05/17/23 20:50> Physical Exam Narrative Exam Narrative: CONST: Patient sitting in no acute distress. EYES: Normal inspection. NECK: Normal inspection. RESP: No respiratory distress, CTAB. CVS: Regular rate and rhythm, no murmur, no gallop. ABD: Soft and nontender, no guarding or rebound, nondistended. Rectum: External hemorrhoids nonthrombosed nonbleeding, scant dark stool in rectum. No masses or tenderness. SKIN: Color normal, no rash, warm, dry, intact. EXTREMITIES: Normal appearance, no pedal edema. NEURO: Oriented x4. PSYCH: Normal affect. Const Vital Signs: 05/17/23 17:02 05/17/23 19:23 05/17/23 19:36 Temperature 97.3 F L Temperature Source Temporal Pulse Rate 81 160 H 145 H Respiratory Rate 18 33 H 28 H Blood Pressure 119/61 152/118 H Blood Pressure Mean 80 129 Pulse Ox 99 97 90 Oxygen Delivery Method Room Air Room Air Room Air 05/17/23 20:32 Temperature Temperature Source Pulse Rate 97 Respiratory Rate 26 H Blood Pressure Blood Pressure Mean Pulse Ox 97 Oxygen Delivery Method Room Air <Dr. Harsh Castaneda DO - Last Filed: 05/17/23 20:01> Physical Exam Const Vital Signs: 05/17/23 17:02 05/17/23 19:23 05/17/23 19:36 Temperature 97.3 F L Temperature Source Temporal Pulse Rate 81 160 H 145 H Respiratory Rate 18 33 H 28 H Blood Pressure 119/61 152/118 H Blood Pressure Mean 80 129 Pulse Ox 99 97 90 Oxygen Delivery Method Room Air Room Air Room Air 05/17/23 20:32 Temperature Temperature Source Pulse Rate 97 Respiratory Rate 26 H Blood Pressure Blood Pressure Mean Pulse Ox 97 Oxygen Delivery Method Room Air [facility] <JEFFERSON Marrero - Last Filed: 05/17/23 20:50> [facility] Narrative Medical decision making narrative: Patient had 3 episodes of loose dark stool yesterday. None today. She has decr eased appetite but no nausea or vomiting. She appears well and nontoxic. She was in A-fib RVR in the 140s during my exam but was unaware of this. Does have history of A-fib and is anticoagulated on Eliquis. The rest of her vital signs are stable. On exam she has no abdominal tenderness and her Hemoccult test is negative. CBC is normal with white count of 8.9, hemoglobin 14.6. BMP showed mildly low potassium at 3.3 and mildly elevated creatinine at 1.31 (baseline 0.7-1.0). She was given p.o. potassium. A fib RVR was treated with boluses of IV Cardizem initially 10 mg which had no effect and then 20 mg. BP improved to 120s/60s and A-fib's in the 90s. She takes medication at bedtime including cardia 120 mg extended release. Differential: Acute diarrhea, GI bleed, anemia, electrolyte abnormality External records reviewed 02/17/2023 EGD Normal esophagus Oozing gastric ulcer was treated with heater probe. 11/12/2022 colonoscopy Diverticulosis in sigmoid and rectosigmoid colon Few splenic flexure ulcers No acute bleeding Lab Data Attestation: I reviewed the patient's lab results. Labs: Laboratory Results - last 24 hr 05/17/23 19:29 WBC 8.9 RBC 4.75 Hgb 14.6 Hct 45.1 MCV 94.9 MCH 30.7 MCHC 32.4 RDW Std Deviation 56.4 H RDW Coeff of Arben 16.3 H Plt Count 286 MPV 9.2 Immature Gran % (Auto) 0.200 Neut % (Auto) 68.5 Lymph % (Auto) 20.2 [place] % (Auto) 10.0 Eos % (Auto) 0.1 Baso % (Auto) 1.0 Absolute Neuts (auto) 6.1 Absolute Lymphs (auto) 1.81 Nucleated RBC % 0 Sodium 141 Potassium 3.3 L Chloride 106 Carbon Dioxide 23.0 Anion Gap 12 BUN 17 Creatinine 1.31 H Estim Creat Clear Calc 27.61 Est GFR (MDRD) Af Amer 50 L Est GFR (MDRD) Non-Af 41 L BUN/Creatinine Ratio 13.0 Glucose 120 H Calcium 9.4 Total Bilirubin 0.70 AST 16 ALT 22 Alkaline Phosphatase 95 Troponin I High Sens 29 Total Protein 7.1 Albumin 3.2 Globulin 3.9 Albumin/Globulin Ratio 0.8 L Radiography Diagnostic Testing: Clinical Impression(s) from Imaging Studies Chest X-Ray 05/17/23 20:00 IMPRESSION: 1. No radiographic evidence of acute cardiopulmonary disease. Electronically Signed: Navin Peña DO at 20:15 EST , EKG Initial EKG: Attestation: I personally reviewed and interpreted this EKG as follows: Interpretation: Atrial Fibrillation Comments: A-fib RVR at 120 bpm No STEMI criteria <Dr. Harsh Castaneda, DO - Last Filed: 05/17/23 20:01> MDM Lab Data Labs: Laboratory Results - last 24 hr 05/17/23 19:29 WBC 8.9 RBC 4.75 Hgb 14.6 Hct 45.1 MCV 94.9 MCH 30.7 MCHC 32.4 RDW Std Deviation 56.4 H RDW Coeff of Arben 16.3 H Plt Count 286 MPV 9.2 Immature Gran % (Auto) 0.200 Neut % (Auto) 68.5 Lymph % (Auto) 20.2 [place] % (Auto) 10.0 Eos % (Auto) 0.1 Baso % (Auto) 1.0 Absolute Neuts (auto) 6.1 Absolute Lymphs (auto) 1.81 Nucleated RBC % 0 Sodium 141 Potassium 3.3 L Chloride 106 Carbon Dioxide 23.0 Anion Gap 12 BUN 17 Creatinine 1.31 H Estim Creat Clear Calc 27.61 Est GFR (MDRD) Af Amer 50 L Est GFR (MDRD) Non-Af 41 L BUN/Creatinine Ratio 13.0 Glucose 120 H Calcium 9.4 Total Bilirubin 0.70 AST 16 ALT 22 Alkaline Phosphatase 95 Troponin I High Sens 29 Total Protein 7.1 Albumin 3.2 Globulin 3.9 Albumin/Globulin Ratio 0.8 L Radiography Diagnostic Testing: Clinical Impression(s) from Imaging Studies Chest X-Ray 05/17/23 20:00 IMPRESSION: 1. No radiographic evidence of acute cardiopulmonary disease. Electronically Signed: Navin PeñaDO at 20:15 EST , Treatment and Re-Evaluation :: ED attending note: I evaluated the patient in conjunction with the [facility]. I agree with his/her statements and above findings. I have personally performed a face to face assessment of the patient and have reviewed the [facility] Note. I performed a substantive portion of the visit including all aspects of the following. I personally saw the patient performed chart review, physical exam, reviewed labs, imaging (if obtained), and formulated a treatment and management plan. Shared decision making: I will have a discussion with the patient and or visitors regarding risk/benefits of further testing or admission. They will be made aware of of the risk/benefits inherent in this decision they will be given the opportunity to voice understanding. Discharge Plan Triage Chief Complaint: Diarrhea ED Midlevel Provider: Zunilda Sparks ED Provider: Harsh Castaneda Dx/Rx/DC Orders Clinical Impression: Acute diarrhea, Atrial fibrillation with RVR Prescriptions: No Action melatonin 5 mg tablet 5 mg PO HS PRN (Reason: sleep) (DME) Handicap placard See Rx Instructions .Route .MEDSUPPLY Qty: 1 0RF Rx Instructions: Lifetime Eliquis 5 mg tablet 5 mg PO BID Qty: 60 11RF nitrofurantoin monohyd/m-cryst 100 mg capsule 1 cap PO Q12H 7 Days Qty: 14 0RF Rx Instructions: administer with a meal/food; swallow whole; do not open, crush, dissolve , or chew famotidine 40 MG tablet 40 mg PO BID biotin 10,000 MCG tablet,disintegrating 10,000 mcg PO DAILY atorvastatin 10 mg tablet 10 mg PO QHS cholecalciferol (vitamin D3) 25 mcg (1,000 unit) capsule 2,000 unit PO DAILY cyanocobalamin (vitamin B-12) 1,000 mcg tablet 2,000 mcg PO DAILY vitamins A,C,W-bpdo-owzpay 4,296 mcg-226 mg-90 mg capsule 1 cap PO BID latanoprost 0.005 % Drops 1 drp EACH EYE DAILY dorzolamide-timolol 22.3-6.8 mg/mL Drops 1 drp EACH EYE BID gabapentin 300 mg capsule 300 mg PO QHS brimonidine 0.2 % drops 2 drp EACH EYE BID Patient Comments: INSTILL 1 DROP INTO BOTH EYES TWICE A DAY pantoprazole 40 mg tablet,delayed release (DR/EC) 40 mg PO Q12H 84 Days Qty: 168 3RF furosemide [Lasix] 40 mg tablet 40 mg PO DAILY Qty: 90 3RF potassium chloride 20 mEq tablet extended release 20 meq PO DAILY Qty: 90 3RF losartan 50 mg tablet 25 mg PO DAILY diltiazem HCl 120 mg capsule,extended release 24hr 120 mg PO DAILY Qty: 90 3RF Primary Care Provider: Bjorn Soares Referrals: Bjorn Soares MD [Primary Care Provider] - Capacity <JEFFERSON Marrero - Last Filed: 05/17/23 20:50> Legal Licensed Sales Assistant Reflex Medical hold order details:: IF a medical hold is selected below, a suggested order for a MEDICAL HOLD will reflex upon signing the document. Next of kin: [place] law dictates a PRIORITY LIST for identifying legal decision-maker/legal next of kin in the following order (LNOK): 1st: The patient?s legal guardian, if any 2nd: The patient's spouse (if status is questionable, consult Risk Management) 3rd: The patient?s adult child(rosy) (majority, if multiple children) 4th: The patient?s parents 5th: The patient?s adult siblings (majority, if multiple children siblings)
[2023-05-17] MEDS: dilTIAZem 25 MG/5 ML Vial 10 MG IV BOLUS (19:54)
--- NOTE | 2023-05-17 20:00 | RAD_ITS ---
INDICATION: weakness EXAMINATION/TECHNIQUE: X-RAY - XR Chest 1 View COMPARISON: Chest x-ray June 05, 2020. FINDINGS: LINES/DEVICES: None. LUNGS: Symmetric normal lung volumes. No airspace opacity or abnormal interstitial pattern. No nodule or mass. No pleural effusion or pneumothorax. MEDIASTINUM AND CARDIOVASCULAR STRUCTURES: Normal size and contour of the cardiomediastinal silhouette. No evidence of pulmonary vascular congestion. Moderate intimal calcifications thoracic aortic arch. BONES AND SOFT TISSUES: No fracture or focal osseous lesion. Moderate lateral curvature, convex right, lower thoracic spine. Multilevel degenerative endplate changes distal cervical and thoracic spine. RAD/Chest 1 View (Portable) IMPRESSION: 1. No radiographic evidence of acute cardiopulmonary disease. Electronically Signed: Navin Peña DO at 20:15 EST ,
[2023-05-17 20:25] LABS: Troponin-I HS 29 pg/mL (3.0-54.0)
[2023-05-17] MEDS: dilTIAZem 25 MG/5 ML Vial 20 MG IV BOLUS (20:26)
[2023-05-17 20:27] LABS: ALB/GLOB Ratio 0.8 RATIO (0.9-2.4); AST(SGOT) 16 U/L (15-37); Alanine Aminotransfer ALT/SGPT 22 U/L (13-56); Albumin, Serum 3.2 g/dL (3.2-5.0); Alkaline Phosphatase 95 U/L (45-117); Anion Gap 12 (5-15); BUN 17 mg/dL (7-18); Calcium,Total 9.4 mg/dL (8.5-10.1); Chloride 106 mmol/L (98-107); Creatinine, Serum 1.31 mg/dL (0.55-1.02); EST Glomerular Filtration Rate 41 mL/min (>60); Est Glom Filt Rate - Afr Amer 50 mL/min (>60); Estimated Creatinine Clearance 27.61 ml/min; Globulin 3.9 g/dL (2.2-4.2); Glucose 120 mg/dL (74-106); Potassium 3.3 mmol/L (3.5-5.1); Protein, Total 7.1 g/dL (6.4-8.2); Sodium Level 141 mmol/L (136-145)
[2023-05-17 20:32] VITALS: PULSE 97; RESP 26; O2SAT 97
[2023-05-17] MEDS: Potassium Chloride Oral Tablet 20 MEQ PO (21:00)
[2023-05-17 21:03] VITALS: BP 122/61; PULSE 109; RESP 15; TEMP 36.2; O2SAT 94
== END 2023-05-17 21:19 | disposition home or self-care (01) ==
PROVIDERS: Physician Assistant; Emergency Provider Emergency Medicine; PCP Family Medicine; Visit Provider Emergency Medicine
DX: R19.7 Diarrhea, unspecified (principal); I48.91 Unspecified atrial fibrillation; N18.30 Chronic kidney disease, stage 3 unspecified; Z87.891 Personal history of nicotine dependence; I12.9 Hypertensive chronic kidney disease with stage 1 through stage 4 chronic kidney disease, or unspecified chronic kidney disease; Z79.01 Long term (current) use of anticoagulants; E78.00 Pure hypercholesterolemia, unspecified; K21.9 Gastro-esophageal reflux disease without esophagitis; Z79.899 Other long term (current) drug therapy; R60.9 Edema, unspecified; Z90.49 Acquired absence of other specified parts of digestive tract; Z90.710 Acquired absence of both cervix and uterus
CPT/HCPCS: 71045; 80053; 82274; 84484; 85025; 93005; 96374; 96375; 99283; J7030; A4216

== ENCOUNTER → 2023-05-26 | Outpatient (CLI) | payer MEDICARE, OTHER, SELFPAY ==
--- OUTSIDE RECORDS SUMMARY | 2023-05-26 16:46 | XMS RPT_ITS | CCD ---
Author Name Unknown Address [address] [place] [address] Organization [facility] Care Team Providers Care Freight Car Repairer Name Role Phone Tony Soares MD Primary Care Provider Felton Yancey Unavailable [phone] Ender Lucio Unavailable Romie Cueto (Hist) Unavailable Levy Ibarra Unavailable TONY SOARES Primary Care Unavailab TONY Orellana Referring Unavailab TONY Orellana Primary Care Unavailab TONY Orellana Referring Unavailab TONY Orellana Primary Care Unavailab TONY Orellana Referring Unavailab TONY Orellana Attending Unavailab TONY Orellana Primary Care Unavailab TONY Orellana Attending Unavailab TONY Orellana Primary Care Unavailab TONY Orellana Primary Care Unavailab TONY Orellana Referring Unavailab TONY Orellana Primary Care Unavailab le PODDREA HOWARD Attending Unavailable TONY SOARES Attending Unavailab TONY Orellana Primary Care Unavailab TONY Orellana Primary Care Unavailab TONY Orellana Referring Unavailab TONY Orellana Primary Care Unavailab le DREA COLON Attending Unavailable TONY SOARES Attending Unavailab TONY Orellana Primary Care Unavailab TONY Orellana Primary Care Unavailab le PODLOGDREA MARTINEZ Attending Unavailable TONY SOARES Primary Care TONY Dan Attending RAHUL Ramirez Referring TONY Suarez Primary Care TONY Dan Primary Care TONY Dan Attending Abe estes Allergies Allergy Classification Reported Allergen(s) Allergy Type Date of Onset Reaction(s) Facility (20 sources) oxyCODONE; Translations: [OXYCODONE] Drug Allergy 03-11-2017 Itching [facility] Medications Current Medications Medication Drug Class(es) Dates [...] Time Vital Sign Value Performing Clinician Faci litdeanne 03-31-2023 10:31-0500 Body temperature 98.29 [degF] Drea Colon APRN.CNP Work Phone: [facility] 03-31-2023 10:31-0500 Body weight 67.31 kg Drea Colon APRN.CNP Work Phone: [facility] 03-31-2023 10:31-0500 Diastolic blood pressure 84 mm[Hg] Drea Podlogar DIVER HELPER.PRIMARY HEALTH CARE NURSE Work Phone: [facility] 03-31-2023 10:31-0500 Heart rate 95 /min Drea Podlogar DIVER HELPER.PRIMARY HEALTH CARE NURSE Work Phone: [facility] 03-31-2023 10:31-0500 Respiratory rate 20 /min Drea Podlogar DIVER HELPER.PRIMARY HEALTH CARE NURSE Work Phone: [facility] 03-31-2023 10:31-0500 SaO2% (BldA) [Mass fraction] 98 % Drea Podlogar DIVER HELPER.PRIMARY HEALTH CARE NURSE Work Phone: [facility] 03-31-2023 10:31-0500 Systolic blood pressure 138 mm[Hg] Drea Podlogar DIVER HELPER.PRIMARY HEALTH CARE NURSE Work Phone: [facility] 03-15-2023 13:47-0500 Body weight 68.58 kg Tony Soares MD Work Phone: [facility] 03-15-2023 13:47-0500 Diastolic blood pressure 74 mm[Hg] Tony Soares MD Work Phone: [facility] 03-15-2023 13:47-0500 Heart rate 77 /min Tony Soares MD Work Phone: [facility] 03-15-2023 13:47-0500 Respiratory rate 16 /min Tony Soares MD Work Phone: [facility] 03-15-2023 13:47-0500 SaO2% (BldA) [Mass fraction] 97 % Tony Soares MD Work Phone: [facility] 03-15-2023 13:47-0500 Systolic blood pressure 118 mm[Hg] Tony Soares MD Work Phone: [facility] 03-05-2023 18:35-0400 Body weight 67.5 kg Drea Podlogar DIVER HELPER.PRIMARY HEALTH CARE NURSE Work Phone: [facility] 03-05-2023 18:35-0400 Diastolic blood pressure 68 mm[Hg] Dera Podlogar DIVER HELPER.PRIMARY HEALTH CARE NURSE Work Phone: [facility] 03-05-2023 18:35-0400 Heart rate 64 /min Drea Podlogar DIVER HELPER.PRIMARY HEALTH CARE NURSE Work Phone: [facility] 03-05-2023 18:35-0400 Respiratory rate 16 /min Drea Podlogar DIVER HELPER.PRIMARY HEALTH CARE NURSE Work Phone: [facility] 03-05-2023 18:35-0400 SaO2% (BldA) [Mass fraction] 98 % Drea Podlogar DIVER HELPER.PRIMARY HEALTH CARE NURSE Work Phone: [facility] 03-05-2023 18:35-0400 Systolic blood pressure 140 mm[Hg] Drea Podlogar DIVER HELPER.PRIMARY HEALTH CARE NURSE Work Phone: [facility] 02-08-2023 08:01-0400 Body weight 65.77 kg Tony Soares MD Work Phone: [facility] 02-08-2023 08:01-0400 Diastolic blood pressure 60 mm[Hg] Tony Soares MD Work Phone: [facility] 02-08-2023 08:01-0400 Heart rate 60 /min Tony Soares MD Work Phone: [facility] 02-08-2023 08:01-0400 Respiratory rate 16 /min Tony Soares MD Work Phone: [facility] 02-08-2023 08:01-0400 SaO2% (BldA) [Mass fraction] 96 % Tony Soares MD Work Phone: [facility] 02-08-2023 08:01-0400 Systolic blood pressure 104 mm[Hg] Tony Soares MD Work Phone: [facility] 10-14-2022 15:46-0400 Body temperature 98.6 [degF] Drea Podlogar DIVER HELPER.PRIMARY HEALTH CARE NURSE Work Phone: [facility] 10-14-2022 15:46-0400 Body weight 67.77 kg Drea Podlogar DIVER HELPER.PRIMARY HEALTH CARE NURSE Work Phone: [facility] 10-14-2022 15:46-0400 Diastolic blood pressure 68 mm[Hg] Drea Podlogar DIVER HELPER.PRIMARY HEALTH CARE NURSE Work Phone: [facility] 10-14-2022 15:46-0400 Heart rate 76 /min Drea Podlogar DIVER HELPER.PRIMARY HEALTH CARE NURSE Work Phone: [facility] 10-14-2022 15:46-0400 Respiratory rate 16 /min Drea Podlogar DIVER HELPER.PRIMARY HEALTH CARE NURSE Work Phone: [facility] 10-14-2022 15:46-0400 SaO2% (BldA) [Mass fraction] 96 % Drea Podlogar DIVER HELPER.PRIMARY HEALTH CARE NURSE Work Phone: [facility] 10-14-2022 15:46-0400 Systolic blood pressure 130 mm[Hg] Drea Podlogar DIVER HELPER.PRIMARY HEALTH CARE NURSE Work Phone: [facility] 09-07-2022 13:57-0400 Body weight 67.13 kg Tony Soares MD Work Phone: [facility] 09-07-2022 13:57-0400 Diastolic blood pressure 78 mm[Hg] Tony Soares MD Work Phone: [facility] 09-07-2022 13:57-0400 Heart rate 72 /min Tony Soares MD Work Phone: [facility] 09-07-2022 13:57-0400 Respiratory rate 14 /min Tony Soares MD Work Phone: [facility] 09-07-2022 13:57-0400 Systolic blood pressure 136 mm[Hg] Tony Soares MD Work Phone: [facility] 03-04-2022 13:31-0400 Body weight 66.22 kg Drea Podlogar DIVER HELPER.PRIMARY HEALTH CARE NURSE Work Phone: [facility] 03-04-2022 13:31-0400 Diastolic blood pressure 68 mm[Hg] Drea Podlogar DIVER HELPER.PRIMARY HEALTH CARE NURSE Work Phone: [facility] 03-04-2022 13:31-0400 Heart rate 78 /min Drea Podlogar DIVER HELPER.PRIMARY HEALTH CARE NURSE Work Phone: [facility] 03-04-2022 13:31-0400 Respiratory rate 16 /min Drea Podlogar DIVER HELPER.PRIMARY HEALTH CARE NURSE Work Phone: [facility] 03-04-2022 13:31-0400 SaO2% (BldA) [Mass fraction] 95 % Drea Podlogar DIVER HELPER.PRIMARY HEALTH CARE NURSE Work Phone: [facility] 03-04-2022 13:31-0400 Systolic blood pressure 138 mm[Hg] Drea Podlogar DIVER HELPER.PRIMARY HEALTH CARE NURSE Work Phone: [facility] 01-03-2022 12:29-0400 Body temperature 98.2 [degF] Celia David DIVER HELPER.PRIMARY HEALTH CARE NURSE Work Phone: [facility] 01-03-2022 12:29-0400 Body weight 66.68 kg Celia David APRN.PRIMARY HEALTH CARE NURSE Work Phone: [facility] 01-03-2022 12:29-0400 Diastolic blood pressure 68 mm[Hg] Celia David APRN.PRIMARY HEALTH CARE NURSE Work Phone: [facility] 01-03-2022 12:29-0400 Heart rate 65 /min Celia David APRN.PRIMARY HEALTH CARE NURSE Work Phone: [facility] 01-03-2022 12:29-0400 Respiratory rate 16 /min Celia David APRN.PRIMARY HEALTH CARE NURSE Work Phone: [facility] 01-03-2022 12:29-0400 SaO2% (BldA) [Mass fraction] 97 % Celia David APRN.PRIMARY HEALTH CARE NURSE Work Phone: [facility] 01-03-2022 12:29-0400 Systolic blood pressure 112 mm[Hg] Celia David APRN.PRIMARY HEALTH CARE NURSE Work Phone: [facility] 12-22-2021 16:32-0400 Body temperature 98.6 [degF] Tony Soares MD Work Phone: [facility] 12-22-2021 16:32-0400 Diastolic blood pressure 60 mm[Hg] Tony Soares MD Work Phone: [facility] 12-22-2021 16:32-0400 Heart rate 67 /min Tony Soares MD Work Phone: [facility] 12-22-2021 16:32-0400 Respiratory rate 16 /min Tony Soares MD Work Phone: [facility] 12-22-2021 16:32-0400 SaO2% (BldA) [Mass fraction] 99 % Tony Soares MD Work Phone: [facility] 12-22-2021 16:32-0400 Systolic blood pressure 122 mm[Hg] Tony Soares MD Work Phone: [facility] 12-18-2021 14:36-0400 Body temperature 98.8 [degF] Tony Soares MD Work Phone: [facility] 12-18-2021 14:36-0400 Body weight 67.68 kg Tony Soares MD Work Phone: [facility] 12-18-2021 14:36-0400 Diastolic blood pressure 62 mm[Hg] Tony Soares MD Work Phone: [facility] 12-18-2021 14:36-0400 Heart rate 64 /min Tony Soares MD Work Phone: [facility] 12-18-2021 14:36-0400 Respiratory rate 16 /min Tony Soares MD Work Phone: [facility] 12-18-2021 14:36-0400 Systolic blood pressure 104 mm[Hg] Tony Soares MD Work Phone: [facility] 09-24-2021 15:23-0400 Body weight 66.68 kg Tony Soares MD Work Phone: [facility] 09-24-2021 15:23-0400 Diastolic blood pressure 80 mm[Hg] Tony Soares MD Work Phone: [facility] 09-24-2021 15:23-0400 Heart rate 72 /min Tony Soares MD Work Phone: [facility] 09-24-2021 15:23-0400 Respiratory rate 14 /min Tony Soares MD Work Phone: [facility] 09-24-2021 15:23-0400 Systolic blood pressure 124 mm[Hg] Tony Soares MD Work Phone: [facility] 09-01-2021 11:04-0400 Body weight 68.13 kg Tony Soares MD Work Phone: [facility] 09-01-2021 11:04-0400 Diastolic blood pressure 58 mm[Hg] Tony Soares MD Work Phone: [facility] 09-01-2021 11:04-0400 Heart rate 64 /min Tony Soares MD Work Phone: [facility] 09-01-2021 11:04-0400 Respiratory rate 18 /min Tony Soares MD Work Phone: [facility] 09-01-2021 11:04-0400 SaO2% (BldA) [Mass fraction] 98 % Tony Soares MD Work Phone: [facility] 09-01-2021 11:04-0400 Systolic blood pressure 112 mm[Hg] Tony Soares MD Work Phone: [facility] Encounters Encounter Date Encounter Type Care Provider Facility Start: 04-12-2023 Refill Tony Soares MD Work Phone: [facility] Procedures Date Procedure Procedure Detail Performing Clinician Start: 10-14-2022 Urnls dip stick/tabl et rgnt auto w/o microscopy Drea Colon APRN.CNP Work Phone: Start: 01-03-2022 Urnls dip stick/tabl et rgnt auto w/o microscopy Atif Kellogg MD Work Phone: Plan of Treatment Date Care Activity Detail Author Start: 07-08-2031 Urine microalbumin profile [facility] Start: 02-23-2026 Diabetes Screening Diabetes Screenin g [facility] Start: 09-04-2025 DIABETES SCREEN DIABETES SCREEN [facility] Start: 09-04-2025 Diabetes Screening Diabetes Screenin g [facility] Start: 08-17-2025 DIABETES SCREEN DIABETES SCREEN [facility] Start: 09-01-2024 DIABETES SCREEN DIABETES SCREEN [facility] Start: 02-19-2024 DIABETES SCREEN DIABETES SCREEN [facility] Start: 02-09-2024 Covid-19 Vaccine () Covid-19 Vaccine () [facility] Immunizations Immunization Date Immunization Notes Care Provider Rupinder davidson 03-17-2023 respiratory syncytia l virus (RSV) vaccine, unspecified formulation Tony Soares MD Work Phone: [facility] 03-15-2023 pneumococcal Conjuga te, unspecified formulation Tony Soares MD Work Phone: [facility] Work Phone: 03-15-2023 pneumococcal (PCV20) vaccine, 20 valent (PREVNAR 20) Tony Soares MD Work Phone: [facility] 07-07-2021 tetanus toxoid, redu andrea diphtheria toxoid, and acellular pertussis vaccine, adsorbed Tony Soares MD Work Phone: [facility] 09-13-2020 COVID-19 vaccine, ag e 12+ yr (PFIZER-[employer]Flix - PURPLE TOP) Tony Soares MD Work Phone: [facility] 08-30-2018 zoster vaccine recombinant Tony Soares MD Work Phone: [facility] 02-15-2018 influenza virus vaccine, unspecified formulation Tony Soares MD Work Phone: [facility] 12-11-2017 zoster vaccine recombinant Tony Soares MD Work Phone: [facility] 12-07-2017 zoster vaccine recombinant Tony Soares MD Work Phone: [facility] 02-15-2017 influenza, high dose seasonal, preservative-free Tony Soares MD Work Phone: [facility] 12-08-2008 pneumococcal polysaccharide vaccine, 23 valent Tony Soares MD Work Phone: [facility] Payers Date Payer Category Payer Unknown HOSPITAL/MEDICAL GENERIC MEDICAL GENERIC [id number] 2014-Present [phone] [address] [facility] [place] [address] Indemnity [id number] 2014 Unknown HOSPITAL/MEDICAL GENERIC MEDICAL GENERIC [id number] 2014-Present [phone] [address] [facility] [place] [address] Indemnity [id number] 2014 Unknown [id number] 2004 Medicare MEDICARE MEDICAR E A AND B [id number] 2004-Present [phone] [place] [address] Medicare [id number] 2004 Medicare MEDICARE MEDICAR E A AND B [id number] 2004-Present [phone] [place] [address] Medicare [id number] 2004 Medicare [id number] Social History Date Type Detail Facility Start: 05-13-2016 End: 12-18-2021 Tobacco smoking status NHIS Ex-smoker [facility] End: 05-03-1988 History of tobacco use Current smoker [facility] Start: 05-13-2016 End: 09-07-2022 Cigarettes smoked current (pack per day) - Reported 0.5 [facility] Start: 05-13-2016 End: 12-18-2021 Tobacco use and exposure Smokeless tobacco non-user [facility] Start: 07-21-2021 End: 03-31-2023 Alcohol intake Current non-drinker of alcohol (finding) [facility] Start: 01-24-2018 History SDOH Alcohol Frequency 1 [facility] Start: 01-24-2018 History SDOH Social Connections Phone 5 [facility] Start: 01-24-2018 History SDOH Social Connections Living 4 [facility] Start: 01-24-2018 History SDOH Transpo rt Med 2 [facility] Start: 01-24-2018 Education 13 [facility] Start: 1940 Sex Assigned At Not on file [facility] Start: 07-11-2021 End: 12-22-2021 Exposure to SARS-CoV-2 (event) Not sure [facility] End: 05-03-1988 History of tobacco use Cigarette Smoker [facility] Start: 01-24-2018 End: 09-07-2022 Social connection and isolation panel [facility] Attends Shinto Services Not on file [facility] Work Phone: Are you now , , , , never or living with a partner? [facility] How often to you hav e a drink containing alcohol? Never [facility] Do you feel stress - tense, restless, nervous, or anxious, or unable to sleep at night because your mind is troubled all the time - these days [OSQ] Not at all [facility] (I/We) worried wheth er (my/our) food would run out before (I/we) got money to buy more. Never true [facility] Goals Date Patient Goal Desired Activity /State [...] Lo Cardoso Pss documented in this encounter [facility] 03-31-2023 Note HNO ID: [id number] Author: Drea Colon APRN.PRIMARY HEALTH CARE NURSE Service: ? Author Type: Nurse Practitioner Type: [...] Drop in both eyes once daily. vit C,U-Mp-lxmru-lutein-zeaxan (PRESERVISION AREDS-2) 250-90-40-1 mg Take 1 tablet [...] improve to ER with red flag symptoms Drea Colon APRN.COY Prescription instructions reviewed with patient as applicable. Patient advised if symptoms do not improve or if symptoms worsen sooner, to contact their primary care physician. Potential red flag symptoms discussed with the patient. Reviewed appropriate action plan to take if red flag symptoms occur. Patient agreeable to treatment plan. (more content not included)... [facility] 03-31-2023 Instructions Drea Colon APRN.CNP - 03/31/2023 10:42 AM EST May take mucinex over the counter as directed on package May use coricidin over the counter as directed on packaging documented in this encounter [facility] 03-31-2023 History of Presen t illness Narrative [...] Drop in both eyes once daily. vit C,P-Fa-ucjtg-lutein-zeaxan (PRESERVISION AREDS-2) 250-90-40-1 mg Take 1 tablet [...] improve to ER with red flag symptoms Drea Colon APRN.PRIMARY HEALTH CARE NURSE Prescription instructions reviewed with patient as applicable. [...] which included preparing to see the patient, [id number] patient care, completing clinical documentation, obtaining and/or reviewing separately obtained history, performing a medically appropriate examination, and counseling and educating the patient/family/caregiver. documented in this encounter [facility] 03-18-2023 Miscellaneous Notes Patient returned call and [...] recommendations. Patient transferred to this nurse from [facility]. Patient concerned about a recent BP reading of 167/97 (82). Patient very worried it is too high. Reports no symptoms and states I feel fine. Patient denies CP, SOB, dizziness, numbness, no fever. Reports this morning BP was 113/63, yesterday BP 106/61. Reports she received an RSV vaccine today at [facility]. Reports she received a pneumonia vaccine 2 [...] numbness. Patient agreeable. documented in this encounter [facility] 03-15-2023 Note HNO ID: [id number] Author: Tony Soares MD Service: ? Author Type: Physician Type: Progress Notes Filed: 03/21/2023 1:02 PM Note Text: Chief Complaint Patient presents with: Follow Up: 6 month HPI Patricia Díaz is a 82 year old female who [...] Drop in both eyes once daily. vit C,I-Gn-mdbtj-lutein-zeaxan (PRESERVISION AREDS-2) 250-90-40-1 mg Take 1 tablet [...] 25.95 kg/m? G (more content not included)... [facility] 03-15-2023 Instructions Tony Soares MD - 03/15/2023 2:17 PM EST Please follow up with your pharmacy for your RSV vaccine. documented in this encounter [facility] 03-15-2023 History of Presen t illness Narrative Chief Complaint Patient presents with: Follow Up: 6 month HPI Patricia Díaz is a 82 year old female who [...] Drop in both eyes once daily. vit C,P-Vi-iwooe-lutein-zeaxan (PRESERVISION AREDS-2) 250-90-40-1 mg Take 1 tablet [...] Abs Lymph 1.00 - 4.00 k/uL 1.41 [place]% % 10.5 Abs [place] <0.87 k/uL 0.61 E[place]% % 0.9 Abs [...] Tony Soares MD documented in this encounter [facility] 03-05-2023 Note HNO ID: [id number] Author: Drea Colon APRN.PRIMARY HEALTH CARE NURSE Service: ? Author Type: Nurse Practitioner Type: [...] differently: 1 tablet at night; Per Dr. Martinze) lidocaine (LIDODERM) 5 % Apply 1 Patch as directed every 12 hours. latanoprost (XALATAN) 0.005 % ophthalmic solution Use 1 Drop in both eyes once daily. vit C,Z-We-xwyrb-lutein-zeaxan (PRESERVISION AREDS-2) 250-90-40-1 mg Take 1 tablet [...] Completed Depression Assess (more content not included)... [facility] 03-05-2023 History of Presen t [...] Drop in both eyes once daily. vit C,K-Hg-ylimp-lutein-zeaxan (PRESERVISION AREDS-2) 250-90-40-1 mg Take 1 tablet [...] Mediterranean diet - Recommend regular aerobic exercise Drea Colon APRN.CNP Prescription instructions reviewed with patient [...] which included preparing to see the patient, [id number] patient care, completing clinical documentation, obtaining and/or reviewing separately obtained history, performing a medically appropriate examination, and counseling and educating the patient/family/caregiver. documented in this encounter [facility] 03-05-2023 Miscellaneous Notes Pt states she has her BP cuff with her. Please have patient bring her home blood pressure cuff to appointment today. Drea Colon APRN.CNP documented in this encounter [facility] 02-24-2023 Miscellaneous Notes Patient returned call and went over results, notes from Dr Soares with understanding. Message left for patient to call office back for update. Lillie Hu LPN ----- Message from Tony Soares MD sent at 02/24/2023 8:02 AM EDT ----- Labs are stable/unremarkable. Iron levels normal. No anemia. No changes to regimen. documented in this encounter [facility] 02-23-2023 Note HNO ID: [id number] Author: Tony Soares MD Service: ? Author Type: Physician Type: Progress Notes Filed: 02/23/2023 2:02 PM Note Text: Chief Complaint Patient presents with: Blood Pressure: Follow up/recheck HPI Patricia Díaz is a 82 year old female who [...] SURGERY, COMPLEX Bilateral R 10/2012-L 12/2012 CHOLECYSTECTOMY 2003 COLONOSCOPY 12/11/2015 10mm adenomatous polyp found, repeat [...] Drop in both eyes once daily. vit C,C-In-tssjs-lutein-zeaxan (PRESERVISION AREDS-2) 250-90-40-1 mg Take 1 tablet [...] lesions. Lungs: Xenia (more content not included)... [facility] 02-18-2023 Miscellaneous Notes Pt calling [...] Pt verbalizes understanding. documented in this encounter [facility] 02-17-2023 Miscellaneous Notes Call placed to patient [...] held losartan. 6:16am 133/77. Pt went to [facility] to have endoscopy & BP there was 137/? Pt doesn't remember what the diastolic was. Today after lunch (20 mins before calling) BP was 168/73, pt states she will take losartan. Pt states she feels great! Instructions from pcp from phone note yesterday gone over again with pt. Beatriz Allison LPN documented in this encounter [facility] 02-16-2023 Miscellaneous Notes Phoned patient and went [...] week bp check. documented in this encounter [facility] 02-08-2023 Note HNO ID: [id number] Author: Tony Soares MD Service: ? Author Type: Physician Type: Progress Notes Filed: 02/08/2023 1:12 PM Note Text: Chief Complaint Patient presents with: Blood Pressure: BP has been elevated HPI Patricia Díaz is a 82 year old female who presents here today for Above Complaints. HTN: Ms. Díaz indicates that she is feeling well and [...] Drop in both eyes once daily. vit C,R-Kh-slzng-lutein-zeaxan (PRESERVISION AREDS-2) 250-90-40-1 mg Take 1 tablet [...] alert, in n (more content not included)... [facility] 02-08-2023 Instructions Tony Soraes MD - 02/08/2023 8:29 AM EDT Call with high blood pressure readings above 140/90 or low less than 100/60. documented in this encounter [facility] 02-08-2023 History of Presen t illness Narrative Chief Complaint Patient presents with: Blood Pressure: BP has been elevated HPI Patricia Díaz is a 82 year old female who presents here today for Above Complaints. HTN: Ms. Díaz indicates that she is feeling well and [...] Drop in both eyes once daily. vit C,S-Gh-njgkq-lutein-zeaxan (PRESERVISION AREDS-2) 250-90-40-1 mg Take 1 tablet [...] Tony Soares MD documented in this encounter [facility] 02-05-2023 Miscellaneous Notes Phoned patient and advised her of provider's message. She voiced understanding. I would have her take 50 mg of Losartan instead of 75 mg. Will check BP on Wednesday. Patient calling and asking if Dr. Soares can advise her. If not, if Drea Colon can advise, please. Pt reports she [...] 120 mg once daily Pt last saw Leader Assembler, Dr. Ibarra on 11/10/22. She states at [...] patient. Thank you. documented in this encounter [facility] 02-05-2023 Miscellaneous Notes Opened in error. Lynette Aguillon RN documented in this encounter [facility] 12-10-2022 Miscellaneous Notes Phoned patient and reviewed [...] call and advise. documented in this encounter [facility] 10-19-2022 Miscellaneous Notes Reviewed. Drea Cloon APRN.CNP Patient notified of message below. States she is much better and not having any further symptoms. Lillie Hu LPN ----- Message from Drea Colon APRN.CNP sent at 10/19/2022 7:30 AM EDT ----- Urine culture shows antibiotic she is taking will cover bacteria in urine. Completed entire course and follow-up if not improving. Drea Colon APRN.CNP documented in this encounter [facility] 10-16-2022 Miscellaneous Notes Phoned patient and reviewed message with her. Patient voiced understanding and stated she has the ATB and will start it today. If her flank pain worsens or she develops fevers, chills, nausea, vomiting or blood in urine will need to go to ER. Start antibiotic today. Drea Colon APRN.COY See other TE- pt returned call for [...] pill twice a day for 5 days. Drea Colon APRN.OCY documented in this encounter [facility] 10-16-2022 Miscellaneous Notes Pt returned call to office. See other TE. Bryant Mccormack LPN Patient telephoned, will pick up man and then hangs up. Will try back later. Lillie Hu LPN Please call patient and let her know her urine culture is still pending. How is she feeling today? Drea Colon APRN.COY documented in this encounter [facility] 10-14-2022 Note HNO ID: [id number] Author: Drea Colon APRN.CNP Service: ? Author Type: Nurse [...] Drop in both eyes once daily. vit C,W-Ka-rurgo-lutein-zeaxan (PRESERVISION AREDS-2) 250-90-40-1 mg Take 1 tablet [...] flag symptoms Stephanie (more content not included)... [facility] 10-14-2022 Instructions Drea Colon APRN.CNP - 10/14/2022 4:00 PM EDT If you develop persistent pain with urination, increasing urgency/frequency, fever, confusion, abdominal pain, back pain or vomiting notify office documented in this encounter [facility] 10-14-2022 History of Presen t illness Narrative [...] Drop in both eyes once daily. vit C,Y-Uz-jvswq-lutein-zeaxan (PRESERVISION AREDS-2) 250-90-40-1 mg Take 1 tablet [...] To ER if develops red flag symptoms Drea Colon APRN.CNP Prescription instructions reviewed with patient [...] which included preparing to see the patient, mxbj-mt-dtgw patient care, completing clinical documentation, obtaining and/or reviewing separately obtained history, performing a medically appropriate examination, counseling and educating the patient/family/caregiver, and ordering medications, tests, or procedures. documented in this encounter [facility] 09-14-2022 Miscellaneous Notes Pt calls to report that Dr. Ng's office stated they did not receive orders to gastro that were faxed 09/09/22. Orders, OV notes, Results faxed to : [phone]. Marguerite Ngo LPN documented in this encounter [facility] 09-09-2022 Miscellaneous Notes Pt called and requested referral and supportive information for Gastro referral be faxed to Dr. Ng at [facility]. Fax number [phone]. Done Pt will call to schedule apt. Meme Gant LPN documented in this encounter [facility] 09-07-2022 Note HNO ID: [id number] Author: Tony Soares MD Service: ? Author Type: Physician Type: Progress Notes Filed: 09/07/2022 3:27 PM Note Text: Chief Complaint Patient presents with: F/U 6 months HPI Patricia Díaz is a 82 year old female who [...] Drop in both eyes once daily. vit C,G-Ac-mpalo-lutein-zeaxan (PRESERVISION AREDS-2) 250-90-40-1 mg Take 1 tablet [...] Negative for lesions, (more content not included)... [facility] documented as of this encounter (statuses as of 09/08/2022) [facility] History of Past illness Narrative* Problem Noted Date Resolved Date Melanoma 09/07/2022 documented as of this encounter (statuses as of 09/09/2022) [facility] of Past illness Narrative* Problem Noted Date Resolved Date Melanoma 09/07/2022 documented as of this encounter (statuses as of 09/14/2022) [facility] History of Past illness Narrative* Problem Noted Date Resolved Date Melanoma 09/07/2022 documented as of this encounter (statuses as of 10/15/2022) [facility] Narrative* Problem Noted Date Resolved Date Melanoma 09/07/2022 documented as of this encounter (statuses as of 10/16/2022) [address]08-2023 History of Past illness Narrative* Problem Noted Date Resolved Date Melanoma 09/07/2022 documented as of this encounter (statuses as of 10/23/2022) [address]08-2023 History of Past illness Narrative* Problem Noted Date Diagnosed Date Resolved Date Melanoma 09/07/2022 documented as of this encounter (statuses as of 12/11/2022) [address]08-2023 History of Past illness Narrative* Problem Noted Date Diagnosed Date Resolved Date Melanoma 09/07/2022 documented as of this encounter (statuses as of 02/06/2023) [facility] of Past illness Narrative* Problem Noted Date Diagnosed Date Resolved Date Melanoma 09/07/2022 documented as of this encounter (statuses as of 02/09/2023) [address]23 History of Past illness Narrative* Problem Noted Date Diagnosed Date Resolved Date Melanoma 09/07/2022 documented as of this encounter (statuses as of 02/17/2023) [facility] of Past illness Narrative* Problem Noted Date Diagnosed Date Resolved Date Melanoma 09/07/2022 documented as of this encounter (statuses as of 02/18/2023) [facility] of Past illness Narrative* Problem Noted Date Diagnosed Date Resolved Date Melanoma 09/07/2022 documented as of this encounter (statuses as of 02/24/2023) [facility] of [facility] illness Narrative* Problem Noted Date Diagnosed Date Resolved Date Melanoma 09/07/2022 documented as of this encounter (statuses as of 03/06/2023) [address]-2023 History of Past illness Narrative* Problem Noted Date Diagnosed Date Resolved Date Melanoma 09/07/2022 documented as of this encounter (statuses as of 03/06/2023) [address]08-2023 History of Past illness Narrative* Problem Noted Date Diagnosed Date Resolved Date Melanoma 09/07/2022 documented as of this encounter (statuses as of 03/18/2023) [address]23 History of Past illness Narrative* Problem Noted Date Diagnosed Date Resolved Date Melanoma 09/07/2022 documented as of this encounter (statuses as of 03/21/2023) [facility] History of Past illness Narrative* Problem Noted Date Diagnosed Date Resolved Date Melanoma 09/07/2022 documented as of this encounter (statuses as of 03/31/2023) [facility] History of Past illness Narrative* Problem Noted Date Diagnosed Date Resolved Date Melanoma 09/07/2022 documented as of this encounter (statuses as of 04/13/2023) [facility] History of Present illness Narrative* Tony Soares MD - 09/07/2022 2:00 PM EDT Chief Complaint Patient presents with: F/U 6 months HPI Patricia Díaz is a 82 year old female who [...] Drop in both eyes once daily. vit C,Q-Bx-hwzqx-lutein-zeaxan (PRESERVISION AREDS-2) 250-90-40-1 mg Take 1 tablet [...] Abs Lymph 1.00 - 4.00 k/uL 2.43 [place]% % 10.5 Abs [place] <0.87 k/uL 0.95 (H) Eosin% % 4.9 [...] months. Tony Soares MD [facility] Miscellaneous Notes* Telephone Encounter - YOSEPH Lynne [...] adhesions or bowel obstruction. [facility]23 NoteHNO ID: [id number] Author: RT Talita(R) Service: ? Author Type: Stunt Driver Type: Progress Notes Filed: 08/20/2022 3:52 PM [...] Abdomen/Pelvis SIGNATURE: RT Praveen(R) PATIENT NAME: Patricia Díaz DATE: August 20, 2022 TIME: 3:52 [facility]04-17-2023 NoteHNO ID: [id number] Author: Tony Soares MD Service: ? Author Type: Physician Type: Progress Notes Filed: 08/17/2022 3:58 PM Note Text: Chief Complaint Patient presents with: Abdominal Pain: Left lower abdominal pain- patient has been in regarding pain previously. Believes laparoscopic adhesions from hysterectomy. HPI Patricia Díaz is a 82 year old female who [...] Drop in both eyes once daily. vit C,C-Nn-ccwzh-lutein-zeaxan (PRESERVISION AREDS-2) 250-90-40-1 mg Take 1 tablet [...] auscultation. No wheezing, rhonchi (more content not included)...[facility]04-10-2023 Miscellaneous Notes* Telephone Encounter - [...] for follow up . Pt is a [facility] patient. Attempted to contact patient to inquire what she is needing to be seen for and if she can come in at 1340 for a 40 min appointment. If pt is unable to come in early, she will need to be rescheduled to either PCP or Drea's schedule. LM for pt to contact office. Elizabeth Alatorre MA [facility] Miscellaneous Notes* Telephone Encounter - Dominguez Farrell [...] valid prescription at the pharmacy Dominguez Farrell APRN.CNP * Telephone Encounter - TORRI Lynne - [...] notify patient. Mary Snow [facility] Miscellaneous Notes* Telephone Encounter - Tania Arreaga Cma - 07/07/2022 9:38 AM EST Patient notified and verbalized understanding Tania Arreaga Cma * Telephone Encounter - Rahul Lopez APRN.CNP - 07/07/2022 9:04 AM EST Please let patient know that her mammogram is normal. Patient should continue with yearly screenings. [facility] in [facility]-2023 NoteHNO ID: [id number] Author: Adele Thompson, [employer] Service: ? Author Type: Stunt Driver Type: Progress Notes Filed: 07/06/2022 1:42 PM Note Text: Radiology Service Progress Note PATIENT NAME: Patricia Díaz DATE OF SERVICE: July 06, 2022 TIME: [...] PERIPHERAL IV DATA: Not applicable SIGNED BY: Adele Thompson [employer] July 06, 2022 1:13 [facility]03-02-2023 Miscellaneous Notes* Telephone Encounter - Tony [...] symptoms since her OV? [facility] in [facility]2023 NoteHNO ID: [id number] Author: Tony Soares MD Service: ? Author Type: Physician Type: Progress Notes Filed: 08/17/2022 3:41 PM Note Text: Chief Complaint Patient presents with: Abdominal Pain: Patient stated had it for approx 2 months and now it seems to be gone Derm Problem: Reports toes on left foot have been bright red for approx 2 months no pain HPI Patricia Díaz is a 82 year old female who [...] Drop in both eyes once daily. vit C,Z-Bd-wylqd-lutein-zeaxan (PRESERVISION AREDS-2) 250-90-40-1 mg Take 1 tablet [...] No masses, organomegaly. Extrem (more content not included)...[facility]12-01-2022 Miscellaneous Notes* Telephone Encounter - [...] Lo De La Cruz documented [facility] History of Present illness Narrative* Drea Colon APRN.COY - 03/04/2022 1:21 PM EDT [...] Drop in both eyes once daily. vit C,E-Dk-iwbas-lutein-zeaxan (PRESERVISION AREDS-2) 250-90-40-1 mg Take 1 tablet [...] Abs Lymph 1.00 - 4.00 k/uL 1.83 [place]% % 9.6 Abs [place] <0.87 k/uL 0.65 Eosin% % 5.3 Abs [...] - follow-up if symptoms fail to improve Drea Colon APRN.CNP Prescription instructions reviewed with patient [...] which included preparing to see the patient, rnqd-nl-yagl patient care, completing clinical documentation, obtaining and/or reviewing separately obtained history, performing a medically appropriate examination, and counseling and educating the patient/family/caregiver. [facility] in [facility] History of Present illness Narrative* Celia David APRN.CNP - 01/03/2022 12:52 PM EDT CC: Patient presents with: Urinary Problem: Burning with urination x 1 day HPI Patricia Díaz is a 81 year old female who [...] TOTAL ABDOMINAL HYSTERECT W/WO RMVL TUBE OVARY 1971 ALLERGIES Oxycodone MEDICATIONS famotidine (PEPCID) 40 mg [...] Drop in both eyes once daily. vit C,W-Co-neuhb-lutein-zeaxan (PRESERVISION AREDS-2) 250-90-40-1 mg Take 1 tablet [...] plan. Celia David APRN.COY documented in this encounterT[facility]22 History of Present illness Narrative* Tony Soares MD - 12/22/2021 4:39 PM EDT Chief Complaint Patient presents with: Abdominal Pain: Complaining of off and on abdominal pain to left side since Wednesday night. CHANDRA Díaz is a 81 year old female who [...] morning. Now, feels like cramping in LLQ, 3, without radiation. Admits to chills, decreased appetite. [...] Drop in both eyes once daily. vit C,A-Ye-eicyr-lutein-zeaxan (PRESERVISION AREDS-2) 250-90-40-1 mg Take 1 tablet [...] above. Tony Soares MD documented in this encounterT[facility]08-22-2022 Miscellaneous Notes* Telephone Encounter - Tony Soares [...] 2. RADIATION: Denies radiation. 3. ONSET: Wednesday 4. SUDDEN: Started feeling bad Wednesday night [...] Wednesday night. Protocols used: Abdominal Pain - [id number]-[id number] * Telephone Encounter - Beatriz Isaac LPN [...] her current abx regimen? documented in this encounterT[facility]08-18-2022 History of Present illness Narrative* Tony Soares MD - 12/18/2021 2:32 PM EDT Chief Complaint Patient presents with: Dysuria CHANDRA Díaz is a 81 year old female who [...] Drop in both eyes once daily. vit C,F-Bb-mevoe-lutein-zeaxan (PRESERVISION AREDS 2) 544-695-09-1 dc-sofv-ty-mg cap Take 1 tablet by mouth twice [...] CULTURE Tony Soares MD documented in this encounterT[facility]08-08-2022 Miscellaneous Notes* Telephone Encounter - Bridget Das [...] improved after completing abx. documented in this encounterT[facility]08-05-2022 Miscellaneous Notes* Telephone Encounter - Beatriz Isaac LPN - 12/05/2021 10:21 AM EDT Phoned patient 12/04/21 at [facility] to be sure she understood there [...] leaving for vacation until 1200 tomorrow. Kate Dwyer RN * Telephone Encounter - Beatriz Isaac LPN - 12/04/2021 3:17 PM EDT Phoned patient and VM left regarding result of urine dip and new orders as well as PCP recommendations. Advised patient to call with any questions. documented in this encounterT[facility]08-04-2022 Miscellaneous Notes* Telephone Encounter - Tony Soares [...] in urine 9. :no Protocols used: URINARY CCHODKAE-QKZZE-ZY, URINATION PAIN - [id number] documented in this encounterT[facility]08-04-2022 Miscellaneous Notes* Telephone Encounter - Lynette Aguillon RN - 12/04/2021 8:35 AM EDT See triage encounter. Lynette Aguillon, RN * Telephone Encounter - Domonique Porter - 12/04/2021 8:03 AM EDT Patient calling stating that she would like a call back to discuss her having burning, itching, hurts when she pee, and urine is cloudy. Will be unavailable at 2 pm. She is leaving tomorrow for 2 weeks. Please advise. documented in this encounterT[facility]06-29-2022 Miscellaneous Notes* Telephone Encounter - Amber Gant [...] patient. Amber Gant Pss documented in this encounterT[facility]06-16-2022 Miscellaneous Notes* Telephone Encounter - Lo Cardoso Pss - 10/16/2021 8:44 AM EDT Pharmacy verified in [facility] Patient has been identified by name and [...] advise. Lo Cardoso Pss documented in this encounterT[facility]05-25-2022 History of Present illness Narrative* Tony Soares MD - 09/24/2021 3:27 PM EDT Chief Complaint Patient presents with: Foot Pain (Midfoot): x 1 week HPI Patricia Díaz is a 81 year old female who [...] Drop in both eyes once daily. vit C,U-Go-ulmpj-lutein-zeaxan (PRESERVISION AREDS 2) 891-136-83-1 wl-etyz-kn-mg cap Take 1 tablet by mouth twice [...] weeks. Tony Soares MD documented in this encounterT[facility]05-04-2022 Miscellaneous Notes* Telephone Encounter - Lillie Hu [...] differently. Meme Gant LPN documented in this encounterTog[facility]05-03-2022 Miscellaneous Notes* Telephone Encounter - TORRI Lynne - 09/02/2021 12:17 PM EDT TC to patient who verbalizes understanding of providers message below. Patient has no questions at this time. TORRI Lynne * Telephone Encounter - Drea Colon APRN.CNP - 09/02/2021 11:10 AM EDT Please call patient and let her know her protein level is mildly low- recommend increasing protein in diet. God sources are baked or grilled chicken, turkey or fish, nuts, lean red meats, eggs and cottage cheese to name of few. The rest of her blood work is all in acceptable ranges. Continue current medications. Thanks, Drea Colon APRN.COY documented in this encounterT[facility]05-02-2022 History of Present illness Narrative* Tony Soares MD - 09/01/2021 11:10 AM EDT Chief Complaint Patient presents with: 6 Month Exam HPI Ptaricia Díaz is a 81 year old female who presents here today for 6 month follow up. Patient has been in good health since last OV without recurrent falls. Lacerations on left foreheadand left knee have healed well. Still has mild bruising/discoloration over left forehead. 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 Has rx, [...] Drop in both eyes once daily. vit C,B-Fl-aqrjc-lutein-zeaxan (PRESERVISION AREDS 2) [id number] oc-wxia-io-mg cap Take 1 tablet by mouth twice [...] months. Tony Soares MD documented in this encounterT[facility]04-12-2022 Miscellaneous Notes* Telephone Encounter - Kyra Norris LPN - 08/12/2021 4:35 PM EDT APPROVED until further notice . Briana Norris LPN * Telephone Encounter - Kyra Norris LPN - 08/07/2021 3:15 PM EDT Prior Authorization has been completed online at [employer] for Hydroxyzine, will await response. SWIFT- [id number] Please keep encounter open until final decision has been received and documented from insurance company. Briana Norris LPN [facility]* Diagnosis Thinning hair- Primary Alopecia, unspecified [...] of cerebral infarction [facility]* Diagnosis Plantar fasciitis- Primary Plantar fascial fibromatosis [facility]* Diagnosis Recurrent UTI (urinary tract infection)- Primary Urinary tract infection, site not specified Dysuria documented [facility]* Diagnosis LLQ pain- Primary Abdominal pain, left lower quadrant Epigastric pain Abdominal pain, epigastric documented [facility]* Diagnosis Burning with urination- Primary Dysuria [facility]* Diagnosis Primary hypertension- Primary Unspecified essential hypertension Post herpetic neuralgia 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 Heart murmur Undiagnosed cardiac murmurs Gastroesophageal reflux disease with esophagitis, unspecified whether hemorrhage Hyperlipidemia, unspecified hyperlipidemia type Nonrheumatic aortic valve stenosis Aortic valve disorders Shoulder blade pain Disorder of bone and cartilage, unspecified documented in [facility]* Diagnosis Chronic kidney disease, stage 3a [...] of cerebral infarction documented in this encounter [facility] note* Diagnosis Dysuria- Primary documented in this encounter [facility] note* Diagnosis Primary hypertension- Primary Unspecified essential hypertension documented in this encounter [facility] note* Diagnosis Primary hypertension- Primary Unspecified essential hypertension documented in this encounter [facility] note* Diagnosis Primary hypertension- Primary Unspecified essential [...] unspecified type (HCC) documented in this encounter [facility] note* Diagnosis Acute cough- Primary documented in this encounter [facility] Advance Directives No Advanced Directives Records FoundDocuments on File Type Date Recorded Patient Display Coordinator Expl anation Advance Directive(s) 02/15/2019 8:21 AM Reason for Referral Specialty Diagnoses / Procedures Referred By Kira wiley Referred To Contact Gastroenterology Diagnoses LLQ abdominal pain Procedures CONSULT TO GASTROENTEROLOGY OFFICE/OUTPATIENT [facility] 60-74 MINUTES Tony Soares MD [address] [place] [address] Referral ID Status Reason Start Date Expiration Date Visits Requested Visits Authorized [id number] Authorized PCP Requested Referral 09/07/2022 09/07/2023 1 [...] or prosecute any alcohol or drug abuse patient.[facility] CenterIn the event this information is protected by the Federal Confidentiality of Alcohol and Drug Abuse Patient Records regulations: The Federal rules restrict any use of the information to criminally investigate or prosecute any alcohol or drug abuse patient.[facility] CenterIn the event this information is protected by the Federal Confidentiality of Alcohol and Drug Abuse Patient Records regulations: The Federal rules restrict any use of the information to criminally investigate or prosecute any alcohol or drug abuse patient.[facility] CenterIn the event this information is protected by the Federal Confidentiality of Alcohol and Drug Abuse Patient Records regulations: The Federal rules restrict any use of the information to criminally investigate or prosecute any alcohol or drug abuse patient.[facility] CenterIn the event this information is protected by the Federal Confidentiality of Alcohol and Drug Abuse Patient Records regulations: The Federal rules restrict any use of the information to criminally investigate or prosecute any alcohol or drug abuse patient.[facility] CenterIn the event this information is protected by the Federal Confidentiality of Alcohol and Drug Abuse Patient Records regulations: The Federal rules restrict any use of the information to criminally investigate or prosecute any alcohol or drug abuse patient.[facility] CenterIn the event this information is protected by the Federal Confidentiality of Alcohol and Drug Abuse Patient Records regulations: The Federal rules restrict any use of the information to criminally investigate or prosecute any alcohol or drug abuse patient.[facility] CenterIn the event this information is protected by the Federal Confidentiality of Alcohol and Drug Abuse Patient Records regulations: The Federal rules restrict any use of the information to criminally investigate or prosecute any alcohol or drug abuse patient.[facility] CenterIn the event this information is protected by the Federal Confidentiality of Alcohol and Drug Abuse Patient Records regulations: The Federal rules restrict any use of the information to criminally investigate or prosecute any alcohol or drug abuse patient.[facility] CenterIn the event this information is protected by the Federal Confidentiality of Alcohol and Drug Abuse Patient Records regulations: The Federal rules restrict any use of the information to criminally investigate or prosecute any alcohol or drug abuse patient.[facility] CenterIn the event this information is protected by the Federal Confidentiality of Alcohol and Drug Abuse Patient Records regulations: The Federal rules restrict any use of the information to criminally investigate or prosecute any alcohol or drug abuse patient.[facility] CenterIn the event this information is protected by the Federal Confidentiality of Alcohol and Drug Abuse Patient Records regulations: The Federal rules restrict any use of the information to criminally investigate or prosecute any alcohol or drug abuse patient.[facility] CenterIn the event this information is protected by the Federal Confidentiality of Alcohol and Drug Abuse Patient Records regulations: The Federal rules restrict any use of the information to criminally investigate or prosecute any alcohol or drug abuse patient.[facility] CenterIn the event this information is protected by the Federal Confidentiality of Alcohol and Drug Abuse Patient Records regulations: The Federal rules restrict any use of the information to criminally investigate or prosecute any alcohol or drug abuse patient.[facility] CenterIn the event this information is protected by the Federal Confidentiality of Alcohol and Drug Abuse Patient Records regulations: The Federal rules restrict any use of the information to criminally investigate or prosecute any alcohol or drug abuse patient.[facility] CenterIn the event this information is protected by the Federal Confidentiality of Alcohol and Drug Abuse Patient Records regulations: The Federal rules restrict any use of the information to criminally investigate or prosecute any alcohol or drug abuse patient.[facility] CenterIn the event this information is protected by the Federal Confidentiality of Alcohol and Drug Abuse Patient Records regulations: The Federal rules restrict any use of the information to criminally investigate or prosecute any alcohol or drug abuse patient.[facility] CenterIn the event this information is protected by the Federal Confidentiality of Alcohol and Drug Abuse Patient Records regulations: The Federal rules restrict any use of the information to criminally investigate or prosecute any alcohol or drug abuse patient.[facility] CenterIn the event this information is protected by the Federal Confidentiality of Alcohol and Drug Abuse Patient Records regulations: The Federal rules restrict any use of the information to criminally investigate or prosecute any alcohol or drug abuse patient.[facility] CenterIn the event this information is protected by the Federal Confidentiality of Alcohol and Drug Abuse Patient Records regulations: The Federal rules restrict any use of the information to criminally investigate or prosecute any alcohol or drug abuse patient.[facility] CenterIn the event this information is protected by the Federal Confidentiality of Alcohol and Drug Abuse Patient Records regulations: The Federal rules restrict any use of the information to criminally investigate or prosecute any alcohol or drug abuse patient.[facility] CenterIn the event this information is protected by the Federal Confidentiality of Alcohol and Drug Abuse Patient Records regulations: The Federal rules restrict any use of the information to criminally investigate or prosecute any alcohol or drug abuse patient.[facility] CenterIn the event this information is protected by the Federal Confidentiality of Alcohol and Drug Abuse Patient Records regulations: The Federal rules restrict any use of the information to criminally investigate or prosecute any alcohol or drug abuse patient.[facility] CenterIn the event this information is protected by the Federal Confidentiality of Alcohol and Drug Abuse Patient Records regulations: The Federal rules restrict any use of the information to criminally investigate or prosecute any alcohol or drug abuse patient.[facility] CenterIn the event this information is protected by the Federal Confidentiality of Alcohol and Drug Abuse Patient Records regulations: The Federal rules restrict any use of the information to criminally investigate or prosecute any alcohol or drug abuse patient.[facility] CenterIn the event this information is protected by the Federal Confidentiality of Alcohol and Drug Abuse Patient Records regulations: The Federal rules restrict any use of the information to criminally investigate or prosecute any alcohol or drug abuse patient.[facility] CenterIn the event this information is protected by the Federal Confidentiality of Alcohol and Drug Abuse Patient Records regulations: The Federal rules restrict any use of the information to criminally investigate or prosecute any alcohol or drug abuse patient.[facility] CenterIn the event this information is protected by the Federal Confidentiality of Alcohol and Drug Abuse Patient Records regulations: The Federal rules restrict any use of the information to criminally investigate or prosecute any alcohol or drug abuse patient.[facility] CenterIn the event this information is protected by the Federal Confidentiality of Alcohol and Drug Abuse Patient Records regulations: The Federal rules restrict any use of the information to criminally investigate or prosecute any alcohol or drug abuse patient.[facility] CenterIn the event this information is protected by the Federal Confidentiality of Alcohol and Drug Abuse Patient Records regulations: The Federal rules restrict any use of the information to criminally investigate or prosecute any alcohol or drug abuse patient.[facility] CenterIn the event this information is protected by the Federal Confidentiality of Alcohol and Drug Abuse Patient Records regulations: The Federal rules restrict any use of the information to criminally investigate or prosecute any alcohol or drug abuse patient.[facility] the event this information is protected by the Federal Confidentiality of Alcohol and Drug Abuse Patient Records regulations: The Federal rules restrict any use of the information to criminally investigate or prosecute any alcohol or drug abuse patient.[facility] CenterIn the event this information is protected by the Federal Confidentiality of Alcohol and Drug Abuse Patient Records regulations: The Federal rules restrict any use of the information to criminally investigate or prosecute any alcohol or drug abuse patient.[facility] CenterIn the event this information is protected by the Federal Confidentiality of Alcohol and Drug Abuse Patient Records regulations: The Federal rules restrict any use of the information to criminally investigate or prosecute any alcohol or drug abuse patient.[facility] CenterIn the event this information is protected by the Federal Confidentiality of Alcohol and Drug Abuse Patient Records regulations: The Federal rules restrict any use of the information to criminally investigate or prosecute any alcohol or drug abuse patient.[facility] CenterIn the event this information is protected by the Federal Confidentiality of Alcohol and Drug Abuse Patient Records regulations: The Federal rules restrict any use of the information to criminally investigate or prosecute any alcohol or drug abuse patient.[facility] CenterIn the event this information is protected by the Federal Confidentiality of Alcohol and Drug Abuse Patient Records regulations: The Federal rules restrict any use of the information to criminally investigate or prosecute any alcohol or drug abuse patient.[facility] CenterIn the event this information is protected by the Federal Confidentiality of Alcohol and Drug Abuse Patient Records regulations: The Federal rules restrict any use of the information to criminally investigate or prosecute any alcohol or drug abuse patient.[facility] CenterIn the event this information is protected by the Federal Confidentiality of Alcohol and Drug Abuse Patient Records regulations: The Federal rules restrict any use of the information to criminally investigate or prosecute any alcohol or drug abuse patient.[facility] CenterIn the event this information is protected by the Federal Confidentiality of Alcohol and Drug Abuse Patient Records regulations: The Federal rules restrict any use of the information to criminally investigate or prosecute any alcohol or drug abuse patient.[facility] CenterIn the event this information is protected by the Federal Confidentiality of Alcohol and Drug Abuse Patient Records regulations: The Federal rules restrict any use of the information to criminally investigate or prosecute any alcohol or drug abuse patient.[facility] CenterIn the event this information is protected by the Federal Confidentiality of Alcohol and Drug Abuse Patient Records regulations: The Federal rules restrict any use of the information to criminally investigate or prosecute any alcohol or drug abuse patient.[facility] CenterIn the event this information is protected by the Federal Confidentiality of Alcohol and Drug Abuse Patient Records regulations: The Federal rules restrict any use of the information to criminally investigate or prosecute any alcohol or drug abuse patient.[facility] Reason for Visit (unrecogniz ed section and [...] Care Teams (unrecognized sec tion and content) Freight Car Repairer Relationship Specialty Start Date End Date Tony Soares MD [address] [place], [place] [address] PCP - General Family Practice 08/14/16 Felton Yancey [address] [facility] [address] [place], [place] [address] Pain Management 05/13/18 Ender Lucio [address] [place] [address] Dermatology 05/13/18 Romie Cueto (Hist) [address] [place] [address] Cardiology 05/13/18 Stacey, Versailles S [address] [place] [address] Physician Cardiology 07/11/18 Freight Car Repairer Relationship Specialty Start Date End Date Tony Soares MD [address] [facility] [place] [address] PCP - General Family Practice 08/14/16 Felton Yancey [address] [employer] [address] [place] [address] Pain Management 05/13/18 Ender Lucio [address] [place] [address] Dermatology 05/13/18 Romie Cueto (Hist) [address] [place] [address] Cardiology 05/13/18 Stacey, Versailles S [address] [place] [address] Physician Cardiology 07/11/18 Freight Car Repairer Relationship Specialty Start Date End Date Tony Soares MD [address] [place] [address] PCP - General Family Practice 08/14/16 Felton Yancey [address] [place] [address] Pain Management 05/13/18 Ender Lucio [place] [address] [place] [address] Dermatology 05/13/18 Romie Cueto (Hist) [address] [place] [address] Cardiology 05/13/18 Stacey, Versailles S [address] [place] [address] Physician Cardiology 07/11/18 Freight Car Repairer Relationship Specialty Start Date End Date Tony Soares MD [address] [facility] [place] [address] PCP - General Family Practice 08/14/16 Felton Yancey [address] [employer] [address] [place] [address] Pain Management 05/13/18 Naveed Ender [address] [place] [address] Dermatology 05/13/18 Romie Cueto (Hist) [address] [place] [address] Cardiology 05/13/18 Stacey, Versailles S [address] [place] [address] Physician Cardiology 07/11/18 Freight Car Repairer Relationship Specialty Start Date End Date Tony Soares MD [address] [place] [address] PCP - General Family Practice 08/14/16 Felton Yancey [address] [employer] [address] [place] [address] Pain Management 05/13/18 Ender Lucio [address] [place] [address] Dermatology 05/13/18 Romie Cueto (Hist) [address] [place] [address] Cardiology 05/13/18 Stacey, Levy S [address] [place] [address] Physician Cardiology 07/11/18 Freight Car Repairer Relationship Specialty Start Date End Date Tony Soares MD [address] [place] [address] PCP - General Family Practice 08/14/16 Felton Yancey [address] [place] [address] Pain Management 05/13/18 Ender Lucio [address] [place] [address] Dermatology 05/13/18 Romie Cueto (Hist) [address] [place] [address] Cardiology 05/13/18 Stacey, Levy S [address] [place] [address] Physician Cardiology 07/11/18 Freight Car Repairer Relationship Specialty Start Date End Date Tony Soares MD [address] [place] [address] PCP - General Family Practice 08/14/16 Felton Yancey [address] [employer] [address] [place] [address] Pain Management 05/13/18 Ender Lucio [address] [place] [address] Dermatology 05/13/18 Romie Cueto (Hist) [address] [place] [address] Cardiology 05/13/18 Stacey, Versailles S [address] [place] [address] Physician Cardiology 07/11/18 Freight Car Repairer Relationship Specialty Start Date End Date Tony Soares MD [address] [place] [address] PCP - General Family Medicine 08/14/16 Felton Yancey [address] [place] [address] Pain Management 05/13/18 Ender Lucio [address] [place] [address] Dermatology 05/13/18 Romie Cueto (Hist) [address] [place] [address] Cardiology 05/13/18 Stacey, Versailles S [address] [place] [address] Physician Cardiology 07/11/18 Freight Car Repairer Relationship Specialty Start Date End Date Tony Soares MD [address] [place] [address] PCP - General Family Medicine 08/14/16 Felton Yancey [address] [employer] [address] [place] [address] Pain Management 05/13/18 Ender Lucio [address] [place] [address] Dermatology 05/13/18 Romie Cueto (Hist) [address] [place] [address] Cardiology 05/13/18 Stacey, Levy S [address] [place] [address] Physician Cardiology 07/11/18 Freight Car Repairer Relationship Specialty Start Date End Date Tony Soares MD [address] [place] [address] PCP - General Family Medicine 08/14/16 Felton Yancey [address] [place] [address] Pain Management 05/13/18 Ender Lucio [address] [place] [address] Dermatology 05/13/18 Romie Cueto [address] [place] [address] Cardiology 05/13/18 Stacey, Levy S [address] [place] [address] Physician Cardiology 07/11/18 Freight Car Repairer Relationship Specialty Start Date End Date Tony Soares MD [address] [place] [address] PCP - General Family Medicine 08/14/16 Felton Yancey [address] [place] [address] Pain Management 05/13/18 Ender Lucio [address] [place] [address] Dermatology 05/13/18 Romie Cueto [address] [place] [address] Cardiology 05/13/18 Stacey, Versailles S [address] [place] [address] Physician Cardiology 07/11/18 Freight Car Repairer Relationship Specialty Start Date End Date Tony Soares MD [address] [place] [address] PCP - General Family Medicine 08/14/16 Felton Yancey [address] [place] [address] Pain Management 05/13/18 Ender Lucio [address] [place] [address] Dermatology 05/13/18 Romie Cueto [address] [place] [address] Cardiology 05/13/18 Stacey, Versailles S [address] [place] [address] Physician Cardiology 07/11/18 Freight Car Repairer Relationship Specialty Start Date End Date Tony Soares MD [address] [place] [address] PCP - General Family Medicine 08/14/16 Felton Yancey [address] [place] [address] Pain Management 05/13/18 Ender Lucio [address] [place] [address] Dermatology 05/13/18 Romie Cueto [address] [place] [address] Cardiology 05/13/18 Stacey, Versailles S [address] [place] [address] Physician Cardiology 07/11/18 Freight Car Repairer Relationship Specialty Start Date End Date Tony Soares MD [address] [place] [address] PCP - General Family Medicine 08/14/16 Felton Yancey [address] [place] [address] Pain Management 05/13/18 Ender Lucio [address] [place] [address] Dermatology 05/13/18 Romie Cueto [address] [place] [address] Cardiology 05/13/18 Stacey, Versailles S [address] [place] [address] Physician Cardiology 07/11/18 Freight Car Repairer Relationship Specialty Start Date End Date Tony Soares MD [address] [place] [address] PCP - General Family Medicine 08/14/16 Felton Yancey [address] [place] [address] Pain Management 05/13/18 Ender Lucio [address] [place] [address] Dermatology 05/13/18 Romie Cueto [address] [place] [address] Cardiology 05/13/18 Stacey, Levy S [address] [place] [address] Physician Cardiology 07/11/18 Freight Car Repairer Relationship Specialty Start Date End Date Tony Soares MD [address] [place] [address] PCP - General Family Medicine 08/14/16 Felton Yanecy [address] [place] [address] Pain Management 05/13/18 Ender Lucio [address] [address] Dermatology 05/13/18 Romie Cueto [address] [address] Cardiology 05/13/18 Stacey, Versailles S [address] [place] [address] Physician Cardiology 07/11/18 Freight Car Repairer Relationship Specialty Start Date End Date Tony Soares MD [address] [place] [address] PCP - General Family Medicine 08/14/16 Felton Yancey [address] [place] [address] Pain Management 05/13/18 Ender Lucio [address] [place] [address] Dermatology 05/13/18 Romie Cueto [address] [place] [address] Cardiology 05/13/18 StaceyTeoVersailles S [address] [place] [address] Physician Cardiology 07/11/18 Freight Car Repairer Relationship Specialty Start Date End Date Tony Soares MD [address] [facility] [place] [address] PCP - General Family Medicine 08/14/16 Felton [address]y [address] [place] [address] Pain Management 05/13/18 Ender Lucio [address] [place] [address] Dermatology 05/13/18 Romie Cueto [address] [place] [address] Cardiology 05/13/18 Lvey Ibarra S [address] [place] [address] Physician Cardiology 07/11/18 Freight Car Repairer Relationship Specialty Start Date End Date Tony Soares MD [address] [place] [address] PCP - General Family Medicine 08/14/16 Felton Yancey MD [address] [place] [address] Pain Management 05/13/18 Ender Lucio MD [address] [place] [address] Dermatology 05/13/18 Romie Cueto [address] [place] [address] Cardiology 05/13/18 Levy Ibarra MD [address] [facility] [address] [place] [address] Physician Cardiology 07/11/18 Freight Car Repairer Relationship Specialty Start Date End Date Tony Soares MD [address] [place] [address] PCP - General Family Medicine 08/14/16 Felton Yancey MD [address] [facility] [address] [place] [address] Pain Management 05/13/18 Ender Lucio MD [address] [place] [address] Dermatology 05/13/18 Romie Cueto [address] [place] [address] Cardiology 05/13/18 Levy Ibarra MD [address] [place] [address] Physician Cardiology 07/11/18 Freight Car Repairer Relationship Specialty Start Date End Date Tony Soares MD [address] [place] [address] PCP - General Family Medicine 08/14/16 Felton Yancey MD [address] [place] [address] Pain Management 05/13/18 Ender Lucio MD [address] [place] [address] Dermatology 05/13/18 Romie Cueto [address] [place] [address] Cardiology 05/13/18 Levy Ibarra MD [address] [place] [address] Physician Cardiology 07/11/18 Freight Car Repairer Relationship Specialty Start Date End Date Tony Soares MD [address] [place] [address] PCP - General Family Medicine 08/14/16 Felton Yancey MD [address] [place] [address] Pain Management 05/13/18 Ender Lucio MD [address] [place] [address] Dermatology 05/13/18 Romie Cueto [address] [place] [address] Cardiology 05/13/18 Levy Ibarra MD [address] [place] [address] Physician Cardiology 07/11/18 Freight Car Repairer Relationship Specialty Start Date End Date Tony Soares MD [address] [place] [address] PCP - General Family Medicine 08/14/16 Felton Yancey MD [address] [facility] [address] [place] [address] Pain Management 05/13/18 Ender Lucio MD [address] [place] [address] Dermatology 05/13/18 Romie Cueto [address] [place] [address] Cardiology 05/13/18 Levy Ibarra MD [address] [facility] [address] [place] [address] Physician Cardiology 07/11/18 Freight Car Repairer Relationship Specialty Start Date End Date Tony Soares MD [address] [facility] [place] [address] PCP - General Family Medicine 08/14/16 Felton Yancey MD [address] [place] [address] Pain Management 05/13/18 Ender Lucio MD [address] [place] [address] Dermatology 05/13/18 Romie Cueto [address] [place] [address] Cardiology 05/13/18 Levy Ibarra MD [address] [place] [address] Physician Cardiology 07/11/18 Freight Car Repairer Relationship Specialty Start Date End Date Tony Soares MD [address] [facility] [place] [address] PCP - General Family Medicine 08/14/16 Felton Yancey MD [address] [place] [address] Pain Management 05/13/18 Ender Lucio MD [address] [place] [address] Dermatology 05/13/18 Romie Cueto [address] [place] [address] Cardiology 05/13/18 Levy Ibarra MD [address] [address] Physician Cardiology 07/11/18 Freight Car Repairer Relationship Specialty Start Date End Date Tony Soares MD [address] [place] [address] PCP - General Family Medicine 08/14/16 Felton [facility]ancey MD [address] [facility] [address] [address] Pain Management 05/13/18 Ender Lucio MD [address] [place] [address] Dermatology 05/13/18 Romie Cueto [address] [place] [address] Cardiology 05/13/18 Levy Ibarra MD [address] [facility] [address] [address] Physician Cardiology 07/11/18 INFORMATION SOURCE (unrecogn ized [...] BE BASED ON THE PRIMARY CLINICAL RECORDS. [employer] [facility]. provides no warranty or guarantee of the accuracy or completeness of information in this document.
== END | disposition home or self-care (01) ==
LOC: LABSPEC 15:14
PROVIDERS: PCP Family Medicine; Referring Provider Physician Assistant Surgical; Visit Provider Physician Assistant Surgical
DX: R30.0 Dysuria (principal); N39.0 Urinary tract infection, site not specified
CPT/HCPCS: 87077; 87086; 87088; 87186

== ENCOUNTER 2023-06-30 08:51 | Emergency (ER) | payer MEDICARE, OTHER, SELFPAY ==
[2023-06-30 08:51] VITALS: BP 136/102; PULSE 93; RESP 16; TEMP 35.8; O2SAT 94; BMI 23.9
--- NOTE | 2023-06-30 09:38 | EDS_ITS ---
HPI History of Present Illness Chief Complaint: Laceration Informant: patient Onset/Context/Timing Onset: Today Mechanism/Context: Fall Location of pain/injuries: Left hand and Left knee Quality of Pain: Dull Location: Left knee, left hand Current Severity: Mild Worsened by: Nothing Relieved by: Nothing Associated Symptoms Associated Symptoms: Negative for Parasthesias, Weakness, Loss of function, Inability to ambulate, Loss of consciousness or Amnesia Narrative Narrative: Patient presents with injury to her left knee and left hand that occurred after a fall this morning. Patient states she fell around midnight. Patient denies any head injury or loss of consciousness. Patient admits to some bleeding from her left knee and left hand. Patient states her last tetanus was approximately 2 years ago. Patient states she has mild pain at the present time. Patient describes it as dull. Patient denies any other injuries. [facility] Medical History Ambulates with cane Anemia Aortic stenosis Basal cell carcinoma Bladder disease Cancer Cardiology follow-up encounter Chronic urticaria CKD (chronic kidney disease) stage 3, GFR 30-59 ml/min Concussion Dyspnea on exertion Easy bruising Essential (primary) hypertension Former smoker GERD (gastroesophageal reflux disease) Glaucoma Heart murmur High cholesterol History of basal cell cancer History of echocardiogram History of edema History of melanoma History of rectocele History of renal disease History of shingles History of stress test Hyperlipidemia Injury of head and neck Leg cramps LLQ abdominal pain Migraine headache Nonrheumatic aortic (valve) insufficiency Nonrheumatic mitral (valve) insufficiency Premature atrial contractions Seasonal allergies Secondary pulmonary arterial hypertension Shortness of breath on exertion Wears glasses Home Medications biotin 10,000 mcg disintegrating tablet 10,000 mcg PO DAILY 05/28/17 [History Last Taken 06/03/20] famotidine 40 mg tablet 40 mg PO BID 05/28/17 [History Last Taken 06/03/20] atorvastatin 10 mg tablet 10 mg PO QHS cholesterol 10/05/19 [History Last Taken 06/02/20] dorzolamide 22.3 mg-timolol 6.8 mg/mL eye drops 1 drp EACH EYE BID 12/22/21 [History Last Taken Unknown] latanoprost 0.005 % eye drops 1 drp EACH EYE DAILY 12/22/21 [History Last Taken Unknown] brimonidine 0.2 % eye drops 2 drp EACH EYE BID 11/10/22 [History Last Taken Unknown] cholecalciferol (vitamin D3) 25 mcg (1,000 unit) capsule 2,000 unit PO DAILY supplement 11/10/22 [History Last Taken Unknown] cyanocobalamin (vitamin B-12) 1,000 mcg tablet 2,000 mcg PO DAILY supplement 11/10/22 [History Last Taken Unknown] gabapentin 300 mg capsule 300 mg PO QHS 11/10/22 [History Last Taken Unknown] melatonin 5 mg tablet 5 mg PO HS PRN sleep 11/10/22 [History Last Taken Unknown] Handicap placard #1 ea 04/12/23 [Rx Last Taken Unknown] apixaban 5 mg tablet (Eliquis) 5 mg PO BID #60 tabs 04/12/23 [Rx Last Taken Unknown] vitamins A,C,D-fwki-tdiber 4,296 mcg-226 mg-90 mg capsule 1 cap PO BID eye health 04/12/23 [History Last Taken Unknown] furosemide 40 mg tablet (Lasix) 40 mg PO DAILY #90 tabs 04/13/23 [Rx Last Taken Unknown] potassium chloride 20 mEq tablet,extended release 20 meq PO BID #90 tabs 06/01/23 [Rx Last Taken Unknown] diltiazem HCl 120 mg capsule,extended release 24 hr 120 mg PO BID heart #90 caps 06/23/23 [Rx Last Taken Unknown] losartan 25 mg tablet 25 mg PO DAILY #90 tabs 06/23/23 [Rx Last Taken Unknown] Allergy/AdvReac Type Severity Reaction Status Date / Time oxycodone [From Percocet] AdvReac Upset Verified 06/01/23 09:08 Stomach Family History Mother Anemia Hypertension Brother Hypertension Grandfather Cancer Surgical History History of appendectomy History of bilateral cataract extraction History of hemorrhoidectomy History of hysterectomy History of laparoscopy History of repair of right rotator cuff Hx of colonoscopy Social History Smoking Status: Former smoker Tobacco: How many years used: 25 how long ago did patient quit smokin alcohol intake: never substance use type: does not use what type of physical activity do you participate in: none ROS ROS ED Constitutional Constitutional ED: Denies chills or fever(s) Eyes Eyes: Denies blurry vision or change in vision ENT ENT ED: Denies rhinorrhea or sore throat Cardiovascular Cardiovascular: Denies chest pain or palpitations Respiratory/Chest Respiratory/Chest: Reports cough; Denies dyspnea Gastrointestinal Gastrointestinal: Denies nausea or vomiting Genitourinary Genitourinary ED: Denies dysuria or hematuria Musculoskeletal Musculoskeletal: Denies back pain or neck pain Integumentary Denies abscess or rash Neurologic Neurologic: Denies headache(s) or weakness Allergic/Immunologic Allergic/Immunologic ED: Denies mouth swelling or urticaria EXAM Physical Exam Const Vital Signs: 06/30/23 08:51 Temperature 96.5 F L Temperature Source Temporal Pulse Rate 93 Respiratory Rate 16 Blood Pressure 136/102 H Blood Pressure Mean 113 Pulse Ox 94 Positive well nourished and well developed General Appearance ED: well developed and NAD HEENT atraumatic Neck full ROM Extremity normal to inspection and full ROM General Extremety ED: Negative for deformity General Extremity: Negative for deformity Neuro oriented x3, CN's II-XII intact bilaterally, moves all extremities, no focal motor deficits and no sensory deficits noted [place] Coma Scale: document GCS findings Spontaneous Obeys Commands Oriented 15 Sensorium / Orientation: alert Motor Exam: strength 5/5 throughout Psych mental status grossly normal Skin Skin Narrative: There are superficial skin tears noted over the dorsal aspect of the left hand over the distal fourth and fifth metacarpal areas. There is no active bleeding noted. There are no foreign bodies noted. There is also a large superficial skin tear over the anterior aspect of the left knee. There is no bleeding noted. There is good range of motion of the left knee. There is no deformity noted. MDM MDM MDM Narrative Medical decision making narrative: The skin tears were replaced. Steri-Strips were applied. Patient was instructed to keep the areas clean. Patient was instructed to follow-up with her primary care physician in 5 to 7 days. Patient understood and was agreeable with the plan. All questions were answered. Discharge Plan Triage Chief Complaint: Laceration ED Provider: Elmer Suresh Dx/Rx/DC Orders Clinical Impression: Skin tear of left hand without complication, Noninfected skin tear of left lower extremity, Fall Instructions: ED Laceration Superficial No Stitch Prescriptions: No Action melatonin 5 mg tablet 5 mg PO HS PRN (Reason: sleep) (DME) Handicap placard See Rx Instructions .Route .MEDSUPPLY Qty: 1 0RF Rx Instructions: Lifetime Eliquis 5 mg tablet 5 mg PO BID Qty: 60 11RF potassium chloride 20 mEq tablet extended release 20 meq PO BID Qty: 90 3RF famotidine 40 MG tablet 40 mg PO BID biotin 10,000 MCG tablet,disintegrating 10,000 mcg PO DAILY atorvastatin 10 mg tablet 10 mg PO QHS cholecalciferol (vitamin D3) 25 mcg (1,000 unit) capsule 2,000 unit PO DAILY cyanocobalamin (vitamin B-12) 1,000 mcg tablet 2,000 mcg PO DAILY vitamins A,C,S-euqz-jriebq 4,296 mcg-226 mg-90 mg capsule 1 cap PO BID latanoprost 0.005 % Drops 1 drp EACH EYE DAILY dorzolamide-timolol 22.3-6.8 mg/mL Drops 1 drp EACH EYE BID gabapentin 300 mg capsule 300 mg PO QHS brimonidine 0.2 % drops 2 drp EACH EYE BID Patient Comments: INSTILL 1 DROP INTO BOTH EYES TWICE A DAY furosemide [Lasix] 40 mg tablet 40 mg PO DAILY Qty: 90 3RF diltiazem HCl 120 mg capsule,extended release 24hr 120 mg PO BID Qty: 90 3RF losartan 25 mg tablet 25 mg PO DAILY Qty: 90 3RF Primary Care Provider: Bjorn Soares Referrals: Bjorn Soares MD [Primary Care Provider] - 1-2 Weeks Disposition Disposition: Home, Self Care
== END 2023-06-30 10:01 | disposition home or self-care (01) ==
PROVIDERS: Emergency Provider Emergency Medicine; PCP Family Medicine; Visit Provider Emergency Medicine
DX: S61.412A Laceration without foreign body of left hand, initial encounter (principal); N18.30 Chronic kidney disease, stage 3 unspecified; Z87.891 Personal history of nicotine dependence; S81.012A Laceration without foreign body, left knee, initial encounter; W19.XXXA Unspecified fall, initial encounter; I12.9 Hypertensive chronic kidney disease with stage 1 through stage 4 chronic kidney disease, or unspecified chronic kidney disease; E78.00 Pure hypercholesterolemia, unspecified; K21.9 Gastro-esophageal reflux disease without esophagitis; Z79.899 Other long term (current) drug therapy; Z79.01 Long term (current) use of anticoagulants; Z90.49 Acquired absence of other specified parts of digestive tract; Z98.41 Cataract extraction status, right eye; Z98.42 Cataract extraction status, left eye; Z90.710 Acquired absence of both cervix and uterus
CPT/HCPCS: 99282

== ENCOUNTER → 2023-07-21 | Outpatient (CLI) | payer MEDICARE, OTHER, SELFPAY ==
--- NOTE | 2023-07-21 13:27 | CT_ITS ---
STUDY: CT BRAIN WITHOUT CONTRAST REASON FOR EXAM: Female, 83 years old. Unspecified injury of head, initial encounter. On blood thinners. RADIATION DOSAGE (If Supplied By Facility): CTDIvol = ( 44.99 ) mGy, DLP = ( 796.11 ) mGycm TECHNIQUE: Transaxial CT imaging of the brain was performed without administration of intravenous contrast material. Individualized dose optimization techniques were used for this CT. COMPARISON: Comparison is made with prior study dated June 03, 2020. FINDINGS: Normal soft tissue structures. Normal calvarium. There is mild cerebral atrophy with widening of the extra-axial spaces and ventricular dilatation. There are areas of decreased attenuation within the white matter tracts of the supratentorial brain, consistent with microvascular disease changes. There are small punctate calcifications of the basal ganglia which are seen in the aging brain as a normal variant. There is evidence of an old lacuna in the right basal ganglion. Normal brainstem. Normal cerebellum. There is no intracranial hemorrhage. There are no findings of an acute ischemic infarction. Atherosclerotic calcification of the cavernous portions of the internal carotid arteries bilaterally. Normal visualized paranasal sinuses. CT/Brain/Head without Contrast IMPRESSION: Chronic involutional changes of the brain. Old lacunar in the right basal ganglion. Electronically Signed: Janes Robertson MD at 13:49 EDT ,
== END | disposition home or self-care (01) ==
LOC: CT 13:27
PROVIDERS: PCP Family Medicine; Referring Provider Nurse Practitioner Primary Care; Visit Provider Nurse Practitioner Primary Care
DX: S09.90XA Unspecified injury of head, initial encounter (principal)
CPT/HCPCS: 70450

== ENCOUNTER → 2023-08-05 | Outpatient (CLI) | payer MEDICARE, OTHER, SELFPAY ==
[2023-08-05 16:17] LABS: Absolute Lymphocyte Count 1.34 X10^3/uL (0.83-4.51); Absolute Neutrophil Count 7.2 X10^3/uL (2.0-7.7); Basophil# 0.05 X10^3/uL; Basophil% 0.5 % (0-1); Eosinophil# 0.02 X10^3/uL; Eosinophils% 0.2 % (0-5); Hematocrit 46.3 % (37-47); Hemoglobin 14.6 g/dL (12.0-15.0); Lymphocyte # 1.34 X10^3/ul (0.83-4.51); Lymphocyte % 14.1 % (19-41); Mean Corp Hgb Conc 31.5 g/dL (32-36); Mean Corpuscular Hgb 30.2 pg (27.0-32.0); Mean Corpuscular Volume 95.7 fL (81-99); Mean Platelet Vol. 9.4 fl (6.2-12.0); Monocyte% 8.4 % (0-10); NRBC Flagged by Analyzer 0 % (0-5); Neutrophil # 7.22 X10^3/uL (2.7-7.7); Neutrophil % 76.2 % (47-70); Platelet Count 326 K/mm3 (150-450); RBC Distribution Width CV 13.5 % (11.6-14.6); RBC Distribution Width SD 47.5 fl (35.1-43.9); Red Blood Count 4.84 M/mm3 (4.2-5.4); White Blood Count 9.5 K/mm3 (4.4-11.0)
== END | disposition home or self-care (01) ==
LOC: LAB 15:30
PROVIDERS: PCP Family Medicine; Referring Provider Internal Medicine Gastroenterology; Visit Provider Internal Medicine Gastroenterology
DX: I10 Essential (primary) hypertension (principal)
CPT/HCPCS: 36415; 85025

== ENCOUNTER → 2023-08-07 | Outpatient (CLI) | payer MEDICARE, OTHER, SELFPAY | END | disposition home or self-care (01) | LOC: LABSPEC 12:49 | PROVIDERS: PCP Family Medicine; Visit Provider Internal Medicine Gastroenterology | DX: K92.1 Melena (principal) | CPT/HCPCS: 82274 ==

== ENCOUNTER → 2023-08-25 | Outpatient (CLI) | payer MEDICARE, OTHER, SELFPAY ==
[2023-08-25 17:44] LABS: Mucous, Urine 0 SEEN /hpf (<or=2+)
[2023-08-25 17:54] LABS: Color, Urine Yellow (Yellow); Glucose, Dipstick Normal (Normal); Ketone-Dipstick Negative (Negative); Leukocyte Esterase-Dipstick 500 /ul (Negative); Nitrite-Dipstick Negative (Negative); Occult Blood-Urine 150 /ul (Negative); Protein-Dipstick 15 mg/dl (Negative); Specific Gravity, Urine 1.005 (1.002-1.030); Urine Bilirubin Dipstick Negative (Negative); Urine Clarity Sl. Cloudy (Clear); Urine Urobilinogen Normal (Normal)
[2023-08-25 18:05] LABS: Bacteria 1+ /hpf (None Seen); Red Blood Cells-Urine 0-5 SEEN /hpf (0-5); Squamous Epithelial Cells - UA 0-5 SEEN /hpf (5-10); White Blood Cells 25-50 SEEN /hpf (0-5)
== END | disposition home or self-care (01) ==
PROVIDERS: PCP Family Medicine; Visit Provider Physician Assistant
DX: R30.0 Dysuria (principal)
CPT/HCPCS: 81001; 87077; 87086; 87088; 87186

== ENCOUNTER 2023-11-28 07:08 | Emergency (ER) | payer MEDICARE, OTHER, SELFPAY ==
[2023-11-28 07:09] VITALS: BP 171/88; PULSE 83; RESP 16; TEMP 36.5; O2SAT 99; BMI 22.6
--- NOTE | 2023-11-28 07:32 | CT_ITS ---
HISTORY: HEAD INJURY. TECHNIQUE: Multiple axial images were obtained of the head without intravenous contrast. A radiation dose optimization technique was used for this scan. 235 images. COMPARISON: 07/21/2023. FINDINGS: BRAIN PARENCHYMA: Multiple foci and zones of low attenuation in the bilateral cerebral white matter compatible with chronic small vessel ischemic gliosis. Old right basal ganglia lacunar infarct. No acute intra-axial hemorrhage identified. CSF SPACES: Generalized volume loss. No midline shift or other significant mass effect. No acute extra-axial hemorrhage seen. OTHER: Intact calvarium. No significant air fluid levels in the paranasal sinuses or mastoid air cells. Bilateral lens resections. CT/Brain/Head without Contrast IMPRESSION: No acute intracranial process identified. Chronic involutional and white matter changes. Electronically Signed: Esther Ayers MD at 8:20 EDT ,
--- NOTE | 2023-11-28 07:32 | ED.VIS.FALL ---
HPI HPI - Fall History of Present Illness Chief Complaint: Fall Narrative Narrative: 83-year-old female with history of A-fib on Eliquis presenting after head injury. She states she was off loading some groceries and bent over and hit her head on the wall. She initially did not have any headache, nausea, vomiting, dizziness. She started to be dizzy this morning. Patient called PCP and emergency room that she is on Eliquis. She denies severe headache. She was able to drive to ER. She is not significantly dizzy at this point. No nausea or vomiting. No neck pain. [facility] Medical History Dyspnea on exertion Wears glasses Cancer Ambulates with cane Bladder disease History of renal disease High cholesterol Easy bruising Migraine headache Injury of head and neck Former smoker Leg cramps History of edema History of stress test History of echocardiogram Cardiology follow-up encounter Shortness of breath on exertion LLQ abdominal pain CKD (chronic kidney disease) stage 3, GFR 30-59 ml/min Heart murmur Concussion Chronic urticaria Basal cell carcinoma Aortic stenosis Nonrheumatic mitral (valve) insufficiency Nonrheumatic aortic (valve) insufficiency Secondary pulmonary arterial hypertension Hyperlipidemia Seasonal allergies Anemia Glaucoma GERD (gastroesophageal reflux disease) Essential (primary) hypertension Premature atrial contractions History of shingles History of basal cell cancer History of rectocele History of melanoma Home Medications ?Medication ?Instructions ?Recorded ?Last Taken ?Type biotin 10,000 mcg disintegrating 10,000 mcg PO DAILY 05/28/17 06/03/20 History tablet famotidine 40 mg tablet 40 mg PO BID 05/28/17 06/03/20 History atorvastatin 10 mg tablet 10 mg PO QHS cholesterol 10/05/19 06/02/20 History dorzolamide 22.3 mg-timolol 6.8 1 drp EACH EYE BID 12/22/21 Unknown History mg/mL eye drops latanoprost 0.005 % eye drops 1 drp EACH EYE DAILY 12/22/21 Unknown History brimonidine 0.2 % eye drops 2 drp EACH EYE BID 11/10/22 Unknown History cholecalciferol (vitamin D3) 25 2,000 unit PO DAILY supplement 11/10/22 Unknown History mcg (1,000 unit) capsule cyanocobalamin (vitamin B-12) 2,000 mcg PO DAILY supplement 11/10/22 Unknown History 1,000 mcg tablet gabapentin 300 mg capsule 300 mg PO QHS 11/10/22 Unknown History melatonin 5 mg tablet 5 mg PO HS PRN sleep 11/10/22 Unknown History Handicap placard #1 ea 04/12/23 Unknown Rx apixaban 5 mg tablet (Eliquis) 5 mg PO BID #60 tabs 04/12/23 Unknown Rx vitamins A,C,A-ablr-mpcyii 4,296 1 cap PO BID eye health 04/12/23 Unknown History mcg-226 mg-90 mg capsule furosemide 40 mg tablet (Lasix) 40 mg PO DAILY #90 tabs 04/13/23 Unknown Rx potassium chloride 20 mEq 20 meq PO BID #90 tabs 06/01/23 Unknown Rx tablet,extended release diltiazem HCl 120 mg 120 mg PO BID heart #90 caps 06/23/23 Unknown Rx capsule,extended release 24 hr losartan 25 mg tablet 25 mg PO DAILY #90 tabs 06/23/23 Unknown Rx ciprofloxacin HCl 500 mg tablet 500 mg PO BID #10 tabs 08/25/23 Unknown Rx Allergy/AdvReac Type Severity Reaction Status Date / Time oxycodone (From Percocet) AdvReac Upset Verified 11/19/23 13:01 Stomach Family History Mother Anemia Hypertension Brother Hypertension Grandfather Cancer Surgical History Hx of colonoscopy History of bilateral cataract extraction History of hemorrhoidectomy History of repair of right rotator cuff History of laparoscopy History of appendectomy History of hysterectomy Social History Smoking Status: Former smoker Tobacco: How many years used: 25 how long ago did patient quit smokin alcohol intake: never substance use type: does not use what type of physical activity do you participate in: none ROS ROS ED ROS Narrative Dizziness Constitutional Constitutional ED: Denies chills, fever(s) or sweats Eyes Eyes: Denies blurry vision or change in vision ENT ENT ED: Denies ear pain or sore throat Cardiovascular Cardiovascular: Denies chest pain, palpitations or racing heartbeat Respiratory/Chest Respiratory/Chest: Denies cough, dyspnea or sputum Gastrointestinal Gastrointestinal: Denies abdominal pain, constipation, diarrhea, nausea or vomiting Genitourinary Genitourinary ED: Denies dysuria, hematuria or urinary frequency Musculoskeletal Musculoskeletal: Denies arthralgias, myalgias or neck pain Integumentary Denies abscess, Abrasions or rash Neurologic Neurologic: Denies headache(s), paresthesias or weakness Psychiatric Psychiatric: Denies anxiety, depression, suicidal ideation or suicidal thoughts Endocrine Endocrinology: Denies polydipsia or polyuria EXAM Physical Exam Const Vital Signs: 11/28/23 07:09 11/28/23 07:16 Temperature 97.7 F L Temperature Source Temporal Pulse Rate 83 Respiratory Rate 16 Respiratory Effort Normal Non-Labored Respiratory Depth Normal Respiratory Pattern Normal Blood Pressure 171/88 H Blood Pressure Mean 115 Pulse Ox 99 Oxygen Delivery Method Room Air Room Air Positive well nourished General Appearance ED: NAD HEENT Reports normocephalic atraumatic Eyes PERRL and EOMs intact bilaterally Neck full ROM Chest Wall inspection of chest normal and palpation of chest normal Resp normal respiratory effort and no retractions Auscultation: Negative for rales, rhonchi or wheezes Cardio regular rate and regular rhythm Neuro oriented x3, CN's II-XII intact bilaterally, moves all extremities, no focal motor deficits and no sensory deficits noted Sensorium / Orientation: alert Motor Exam: strength 5/5 throughout Psych mental status grossly normal MDM MDM MDM Narrative Medical decision making narrative: Patient presenting with dizziness. She states the dizziness is actually resolved. She hit her head while unloading groceries and did not get knocked out. She was dizzy earlier and was sent to the ER by her PCP because she is on blood thinners. On examination there is no focal neurologic deficits or lateralizing signs or symptoms. Differential includes concussion, closed head injury, intracranial hemorrhage, skull fracture. CT brain will be obtained. CT of the brain shows no acute findings. Patient counseled on negative CAT scan. Feel she stable for discharge home at this point. Return precautions were discussed. Impression: 1. Closed head injury 2. Dizziness Lab Data Attestation: I reviewed the patient's lab results. Radiography Diagnostic Testing: Clinical Impression(s) from Imaging Studies Brain CT 11/28/23 07:32 IMPRESSION: No acute intracranial process identified. Chronic involutional and white matter changes. Electronically Signed: Esther Ayers MD at 8:20 EDT , Discharge Plan Triage Chief Complaint: Fall ED Provider: Aj Reynolds Dx/Rx/DC Orders Prescriptions: No Action melatonin 5 mg tablet 5 mg PO HS PRN (Reason: sleep) (DME) Handicap placard See Rx Instructions .Route .MEDSUPPLY Qty: 1 0RF Rx Instructions: Lifetime Eliquis 5 mg tablet 5 mg PO BID Qty: 60 11RF potassium chloride 20 mEq tablet extended release 20 meq PO BID Qty: 90 3RF ciprofloxacin HCl 500 mg tablet 500 mg PO BID Qty: 10 0RF famotidine 40 MG tablet 40 mg PO BID biotin 10,000 MCG tablet,disintegrating 10,000 mcg PO DAILY atorvastatin 10 mg tablet 10 mg PO QHS cholecalciferol (vitamin D3) 25 mcg (1,000 unit) capsule 2,000 unit PO DAILY cyanocobalamin (vitamin B-12) 1,000 mcg tablet 2,000 mcg PO DAILY vitamins A,C,R-mixi-hbrftj 4,296 mcg-226 mg-90 mg capsule 1 cap PO BID latanoprost 0.005 % Drops 1 drp EACH EYE DAILY dorzolamide-timolol 22.3-6.8 mg/mL Drops 1 drp EACH EYE BID gabapentin 300 mg capsule 300 mg PO QHS brimonidine 0.2 % drops 2 drp EACH EYE BID Patient Comments: INSTILL 1 DROP INTO BOTH EYES TWICE A DAY furosemide [Lasix] 40 mg tablet 40 mg PO DAILY Qty: 90 3RF diltiazem HCl 120 mg capsule,extended release 24hr 120 mg PO BID Qty: 90 3RF losartan 25 mg tablet 25 mg PO DAILY Qty: 90 3RF Primary Care Provider: Bjorn Soares Referrals: Bjorn Soares MD [Primary Care Provider] - Print Language: Faroese
[2023-11-28 08:47] VITALS: BP 116/66; PULSE 83; RESP 16; TEMP 36.6; O2SAT 94
== END 2023-11-28 08:50 | disposition home or self-care (01) ==
PROVIDERS: Emergency Provider Student in an Organized Health Care Education/Training Program; PCP Family Medicine; Visit Provider Student in an Organized Health Care Education/Training Program
DX: S09.90XA Unspecified injury of head, initial encounter (principal); I48.91 Unspecified atrial fibrillation; N18.30 Chronic kidney disease, stage 3 unspecified; E78.00 Pure hypercholesterolemia, unspecified; Z79.01 Long term (current) use of anticoagulants; W19.XXXA Unspecified fall, initial encounter; Z87.891 Personal history of nicotine dependence; I12.9 Hypertensive chronic kidney disease with stage 1 through stage 4 chronic kidney disease, or unspecified chronic kidney disease; R42 Dizziness and giddiness
CPT/HCPCS: 70450; 99282; A4216

== ENCOUNTER 2024-01-02 17:10 | Emergency (ER) | payer MEDICARE, OTHER, SELFPAY ==
[2024-01-02 17:11] VITALS: BP 120/67; PULSE 80; RESP 16; TEMP 36.6; O2SAT 98; BMI 22.5
--- NOTE | 2024-01-02 17:58 | CT_ITS ---
INDICATION: injury on Eliquis EXAMINATION: CT BRAIN - CT Head or Brain W/O Contrast Injection TECHNIQUE: Multiple axial images were obtained of the head without intravenous contrast. The protocol utilizes one or more of the following dose reduction techniques: automated exposure control, adjustment of mA and/or kV according to patient size,and/or use of iterative reconstruction technique. IV Contrast dosage and agent: None. RADIATION DOSAGE (If Supplied By Facility): CTDIvol = ( 44.99 ) mGy, DLP = ( 796.11 ) mGycm COMPARISON: CT head 11/28/2023 FINDINGS: BRAIN: No acute bleed. No edema. Old lacunar infarct right basal ganglia. Mild decreased attenuation in the periventricular white matter bilaterally. Hammer-white matter differentiation is maintained. Arterial calcifications. VENTRICLES AND SULCI: The ventricles are not dilated. The sulci are prominent. EXTRA-AXIAL: No hemorrhage, fluid collection, or mass. CALVARIUM / SKULL BASE: Unremarkable. FACE/SINUSES: Unremarkable. SOFT TISSUES: Unremarkable. CT/Brain/Head without Contrast IMPRESSION: No acute abnormality. Chronic microvascular ischemic disease. Electronically Signed: Farzaneh Khan MD at 18:54 EDT ,
--- NOTE | 2024-01-02 18:12 | EX.ED.GENINJ ---
HPI History of Present Illness Chief Complaint: Head Injury Informant: patient Narrative Narrative: 83-year-old female presenting to the emergency room chief complaint of head injury. Patient states that she is on apixaban for atrial fibrillation. She bent over to get a water for dinner she fell forward striking her head on the wall. No reported loss of consciousness. No change in chronic neck pain. She denies any vomiting. No neurologic symptoms. She notes very mild headache PFSH [facility] Medical History Dyspnea on exertion Wears glasses Cancer Ambulates with cane Bladder disease History of renal disease High cholesterol Easy bruising Migraine headache Injury of head and neck Former smoker Leg cramps History of edema History of stress test History of echocardiogram Cardiology follow-up encounter Shortness of breath on exertion LLQ abdominal pain CKD (chronic kidney disease) stage 3, GFR 30-59 ml/min Heart murmur Concussion Chronic urticaria Basal cell carcinoma Aortic stenosis Nonrheumatic mitral (valve) insufficiency Nonrheumatic aortic (valve) insufficiency Secondary pulmonary arterial hypertension Hyperlipidemia Seasonal allergies Anemia Glaucoma GERD (gastroesophageal reflux disease) Essential (primary) hypertension Premature atrial contractions History of shingles History of basal cell cancer History of rectocele History of melanoma Home Medications ?Medication ?Instructions ?Recorded ?Last Taken ?Type biotin 10,000 mcg disintegrating 10,000 mcg PO DAILY 05/28/17 06/03/20 History tablet famotidine 40 mg tablet 40 mg PO BID 05/28/17 06/03/20 History atorvastatin 10 mg tablet 10 mg PO QHS cholesterol 10/05/19 06/02/20 History dorzolamide 22.3 mg-timolol 6.8 1 drp EACH EYE BID 12/22/21 Unknown History mg/mL eye drops latanoprost 0.005 % eye drops 1 drp EACH EYE DAILY 12/22/21 Unknown History brimonidine 0.2 % eye drops 2 drp EACH EYE BID 11/10/22 Unknown History cholecalciferol (vitamin D3) 25 2,000 unit PO DAILY supplement 11/10/22 Unknown History mcg (1,000 unit) capsule cyanocobalamin (vitamin B-12) 2,000 mcg PO DAILY supplement 11/10/22 Unknown History 1,000 mcg tablet gabapentin 300 mg capsule 300 mg PO QHS 11/10/22 Unknown History melatonin 5 mg tablet 5 mg PO HS PRN sleep 11/10/22 Unknown History Handicap placard #1 ea 04/12/23 Unknown Rx apixaban 5 mg tablet (Eliquis) 5 mg PO BID #60 tabs 04/12/23 Unknown Rx vitamins A,C,A-vzow-zgzanu 4,296 1 cap PO BID eye health 04/12/23 Unknown History mcg-226 mg-90 mg capsule furosemide 40 mg tablet (Lasix) 40 mg PO DAILY #90 tabs 04/13/23 Unknown Rx potassium chloride 20 mEq 20 meq PO BID #90 tabs 06/01/23 Unknown Rx tablet,extended release diltiazem HCl 120 mg 120 mg PO BID heart #90 caps 06/23/23 Unknown Rx capsule,extended release 24 hr losartan 25 mg tablet 25 mg PO DAILY #90 tabs 06/23/23 Unknown Rx ciprofloxacin HCl 500 mg tablet 500 mg PO BID #10 tabs 08/25/23 Unknown Rx Allergy/AdvReac Type Severity Reaction Status Date / Time oxycodone (From Percocet) AdvReac Upset Verified 01/02/24 17:11 Stomach Family History Mother Anemia Hypertension Brother Hypertension Grandfather Cancer Surgical History Hx of colonoscopy History of bilateral cataract extraction History of hemorrhoidectomy History of repair of right rotator cuff History of laparoscopy History of appendectomy History of hysterectomy Social History Smoking Status: Former smoker Tobacco: How many years used: 25 how long ago did patient quit smokin alcohol intake: never substance use type: does not use what type of physical activity do you participate in: none ROS ROS ED Constitutional Constitutional ED: Denies chills or weight loss Eyes Eyes: Denies change in vision or diplopia ENT ENT ED: Denies ear pain, rhinorrhea or sore throat Cardiovascular Cardiovascular: Denies chest pain, orthopnea, palpitations or racing heartbeat Respiratory/Chest Respiratory/Chest: Denies cough, dyspnea or orthopnea Gastrointestinal Gastrointestinal: Denies abdominal pain, diarrhea, nausea or vomiting Genitourinary Genitourinary ED: Denies dysuria, hematuria or urinary frequency Musculoskeletal Musculoskeletal: Reports other Details: Chronic neck pain ; Denies arthralgias or myalgias Integumentary Denies abscess or rash Neurologic Neurologic: Reports headache(s); Denies paresthesias or weakness Psychiatric Psychiatric: Denies anxiety, depression, suicidal ideation or suicidal thoughts Endocrine Endocrinology: Denies polydipsia, polyphagia or polyuria Allergic/Immunologic Allergic/Immunologic ED: Denies mouth swelling, tongue swelling or urticaria EXAM Physical Exam Const Vital Signs: 01/02/24 17:11 01/02/24 17:55 Temperature 97.8 F Temperature Source Temporal Pulse Rate 80 Respiratory Rate 16 Respiratory Effort Normal Respiratory Depth Normal Respiratory Pattern Normal Blood Pressure 120/67 Blood Pressure Mean 84 Pulse Ox 98 Oxygen Delivery Method Room Air Room Air Positive well nourished and well developed General Appearance ED: well developed and NAD HEENT Reports normocephalic, head/scalp atraumatic and moist mucous membranes Eyes PERRL and EOMs intact bilaterally Neck full ROM, no lymphadenopathy, supple and no JVD Resp normal respiratory effort and clear to auscultation bilaterally Cardio regular rate, regular rhythm and no murmurs GI normal to inspection, nondistended, normoactive bowel sounds and non-tender Palpation: soft Back/Spine no CVA tenderness and normal ROM Extremity normal to inspection General Extremety ED: Negative for edema General Extremity: Negative for edema Neuro oriented x3 and CN's II-XII intact bilaterally [place] Coma Scale: document GCS findings Spontaneous Obeys Commands Oriented 15 Sensorium / Orientation: alert Motor Exam: strength 5/5 throughout Psych mental status grossly normal Mood & Affect: Negative for depressed or tearful Skin no rashes or lesions noted and no wounds MDM MDM MDM Narrative Medical decision making narrative: Differential diagnosis includes but not limited to concussion scalp contusion intracranial hemorrhage hematoma skull fracture CT scan was obtained and is negative for fracture or hemorrhage. She be discharged home with supportive care History & Record Review Discussion w/independent historian: Patient Radiography Diagnostic Testing: Clinical Impression(s) from Imaging Studies Brain CT 01/02/24 17:58 IMPRESSION: No acute abnormality. Chronic microvascular ischemic disease. Electronically Signed: Farzaneh Khan MD at 18:54 EDT Reading Location ID and State: [facility] / [place] Tel , Service support , Discharge Plan Triage Chief Complaint: Head Injury ED Provider: Omar Bush Dx/Rx/DC Orders Clinical Impression: Contusion of scalp, Anticoagulated Instructions: ED Head Injury (Adult) Prescriptions: No Action melatonin 5 mg tablet 5 mg PO HS PRN (Reason: sleep) (DME) Handicap placard See Rx Instructions .Route .MEDSUPPLY Qty: 1 0RF Rx Instructions: Lifetime Eliquis 5 mg tablet 5 mg PO BID Qty: 60 11RF potassium chloride 20 mEq tablet extended release 20 meq PO BID Qty: 90 3RF ciprofloxacin HCl 500 mg tablet 500 mg PO BID Qty: 10 0RF famotidine 40 MG tablet 40 mg PO BID biotin 10,000 MCG tablet,disintegrating 10,000 mcg PO DAILY atorvastatin 10 mg tablet 10 mg PO QHS cholecalciferol (vitamin D3) 25 mcg (1,000 unit) capsule 2,000 unit PO DAILY cyanocobalamin (vitamin B-12) 1,000 mcg tablet 2,000 mcg PO DAILY vitamins A,C,K-ryxd-lzycfp 4,296 mcg-226 mg-90 mg capsule 1 cap PO BID latanoprost 0.005 % Drops 1 drp EACH EYE DAILY dorzolamide-timolol 22.3-6.8 mg/mL Drops 1 drp EACH EYE BID gabapentin 300 mg capsule 300 mg PO QHS brimonidine 0.2 % drops 2 drp EACH EYE BID Patient Comments: INSTILL 1 DROP INTO BOTH EYES TWICE A DAY furosemide [Lasix] 40 mg tablet 40 mg PO DAILY Qty: 90 3RF diltiazem HCl 120 mg capsule,extended release 24hr 120 mg PO BID Qty: 90 3RF losartan 25 mg tablet 25 mg PO DAILY Qty: 90 3RF Primary Care Provider: Bjorn Soares Referrals: Bjorn Soares MD [Primary Care Provider] - As Needed Print Language: St Helen[place] Disposition Disposition: Home, Self Care
== END 2024-01-02 19:05 | disposition home or self-care (01) ==
PROVIDERS: Emergency Provider Emergency Medicine; PCP Family Medicine; Visit Provider Emergency Medicine
DX: S00.03XA Contusion of scalp, initial encounter (principal); I48.91 Unspecified atrial fibrillation; N18.30 Chronic kidney disease, stage 3 unspecified; I12.9 Hypertensive chronic kidney disease with stage 1 through stage 4 chronic kidney disease, or unspecified chronic kidney disease; E78.00 Pure hypercholesterolemia, unspecified; Z87.891 Personal history of nicotine dependence; R51.9 Headache, unspecified; Z79.01 Long term (current) use of anticoagulants; W18.39XA Other fall on same level, initial encounter; Z79.899 Other long term (current) drug therapy; Z98.41 Cataract extraction status, right eye; Z98.42 Cataract extraction status, left eye; Z90.49 Acquired absence of other specified parts of digestive tract; Z90.710 Acquired absence of both cervix and uterus
CPT/HCPCS: 70450; 99282

== ENCOUNTER → 2024-02-12 | Outpatient (CLI) | payer MEDICARE, OTHER, SELFPAY | END | disposition home or self-care (01) | LOC: LABSPEC 14:35 | PROVIDERS: PCP Family Medicine; Visit Provider Physician Assistant | DX: N39.0 Urinary tract infection, site not specified (principal) | CPT/HCPCS: 87077; 87086; 87088; 87186 ==

== ENCOUNTER 2024-03-09 14:02 | Emergency (ER) | payer MEDICARE, OTHER, SELFPAY ==
[2024-03-09 14:03] VITALS: BP 160/68; PULSE 80; RESP 18; TEMP 36.4; O2SAT 97; BMI 23.5
[2024-03-09 15:41] VITALS: BP 148/78; PULSE 77; RESP 18; TEMP 36.4; O2SAT 98
== END 2024-03-09 15:42 | disposition home or self-care (01) ==
PROVIDERS: Emergency Provider Emergency Medicine; PCP Family Medicine; Referring Provider Emergency Medicine; Visit Provider Emergency Medicine
DX: S09.90XA Unspecified injury of head, initial encounter (principal); I48.91 Unspecified atrial fibrillation; N18.30 Chronic kidney disease, stage 3 unspecified; E78.00 Pure hypercholesterolemia, unspecified; Z79.01 Long term (current) use of anticoagulants; Z87.891 Personal history of nicotine dependence; Z90.710 Acquired absence of both cervix and uterus; I12.9 Hypertensive chronic kidney disease with stage 1 through stage 4 chronic kidney disease, or unspecified chronic kidney disease; S63.501A Unspecified sprain of right wrist, initial encounter; W01.10XA Fall on same level from slipping, tripping and stumbling with subsequent striking against unspecified object, initial encounter; Y93.01 Activity, walking, marching and hiking; Y92.89 Other specified places as the place of occurrence of the external cause; Z85.828 Personal history of other malignant neoplasm of skin; K21.9 Gastro-esophageal reflux disease without esophagitis; Z79.899 Other long term (current) drug therapy; Z98.41 Cataract extraction status, right eye; Z98.42 Cataract extraction status, left eye; Z90.49 Acquired absence of other specified parts of digestive tract
CPT/HCPCS: 70450; 73110; 93005; 99283

== ENCOUNTER 2024-04-05 10:04 | Emergency (ER) | payer MEDICARE, OTHER, SELFPAY ==
[2024-04-05 10:05] VITALS: BP 135/89; PULSE 108; RESP 16; TEMP 36.6; O2SAT 95; BMI 22.1
--- NOTE | 2024-04-05 10:32 | EKG12_ITS ---
Test Reason : Blood Pressure : */* mmHG Vent. Rate : 101 BPM Atrial Rate : * BPM P-R Int : * ms QRS Dur : 76 ms QT Int : 306 ms P-R-T Axes : * -7 -41 degrees QTcB Int : 396 ms Atrial fibrillation with rapid ventricular response Minimal voltage criteria for LVH, may be normal variant ( R in aVL ) Cannot rule out Septal infarct (cited on or before 09-Mar-2024) Abnormal ECG Reconfirmed by Navin Galdamez ([id number]), field map editor MICHAEL PEÑA ([id number]) on 04/06/2024 1:05:56 PM Referred By: Confirmed By: Navin Galdamez
--- NOTE | 2024-04-05 10:32 | CT_ITS ---
HISTORY: confusion. TECHNIQUE: Multiple axial images were obtained of the head without intravenous contrast. A radiation dose optimization technique was used for this scan. 235 images. COMPARISON: 03/09/2024. FINDINGS: BRAIN PARENCHYMA: Multiple foci and zones of low attenuation in the bilateral cerebral white matter compatible with chronic small vessel ischemic gliosis. Old right basal ganglia lacunar infarct. Chronic mild basal ganglia calcifications. No acute intra-axial hemorrhage identified. CSF SPACES: Generalized volume loss. No midline shift or other significant mass effect. No acute extra-axial hemorrhage seen. OTHER: Intact calvarium. No significant air fluid levels in the paranasal sinuses or mastoid air cells. Bilateral lens resections. CT/Brain/Head without Contrast IMPRESSION: No acute intracranial process identified. Chronic involutional and white matter changes. Electronically Signed: Esther Ayers MD at 11:22 EST ,
--- NOTE | 2024-04-05 10:44 | EX.ED.DYSGE1 ---
HPI History of Present Illness Chief Complaint: Confusion Informant: patient and family Narrative Narrative: Patient presenting here with son after seeing PCP for ER workup. Per son increasing confusion over the last 3 weeks. From PCP notes there is been some hallucinations at home with thoughts of there was a child in the car along with thoughts that Moo freeman was out at the home. Patient has no diagnosed dementia. She states she has chronic cough. No recent vomiting or diarrhea. No urinary symptoms. The office found to have urine small leukocytes with culture pending. Plan for antibiotic treatment. She took a stumble in the past week however did not hit her head. She is on Eliquis for history of atrial fibrillation. She was sent here for blood work and CT scan and if negative outpatient follow-up for further evaluation. Patient denies any headache. Patient states she does not feel forgetfulness however has been told by family that she has been. She understands this. [facility] Medical History Dyspnea on exertion Wears glasses Cancer Ambulates with cane Bladder disease History of renal disease High cholesterol Easy bruising Migraine headache Injury of head and neck Former smoker Leg cramps History of edema History of stress test History of echocardiogram Cardiology follow-up encounter Shortness of breath on exertion LLQ abdominal pain CKD (chronic kidney disease) stage 3, GFR 30-59 ml/min Heart murmur Concussion Chronic urticaria Basal cell carcinoma Aortic stenosis Nonrheumatic mitral (valve) insufficiency Nonrheumatic aortic (valve) insufficiency Secondary pulmonary arterial hypertension Hyperlipidemia Seasonal allergies Anemia Glaucoma GERD (gastroesophageal reflux disease) Essential (primary) hypertension Premature atrial contractions History of shingles History of basal cell cancer History of rectocele History of melanoma Home Medications ?Medication ?Instructions ?Recorded ?Last Taken ?Type biotin 10,000 mcg disintegrating 10,000 mcg PO DAILY 05/28/17 06/03/20 History tablet famotidine 40 mg tablet 40 mg PO BID 05/28/17 06/03/20 History atorvastatin 10 mg tablet 10 mg PO QHS cholesterol 10/05/19 06/02/20 History dorzolamide 22.3 mg-timolol 6.8 1 drp EACH EYE BID 12/22/21 Unknown History mg/mL eye drops latanoprost 0.005 % eye drops 1 drp EACH EYE DAILY 12/22/21 Unknown History brimonidine 0.2 % eye drops 2 drp EACH EYE BID 11/10/22 Unknown History cholecalciferol (vitamin D3) 25 2,000 unit PO DAILY supplement 11/10/22 Unknown History mcg (1,000 unit) capsule cyanocobalamin (vitamin B-12) 2,000 mcg PO DAILY supplement 11/10/22 Unknown History 1,000 mcg tablet gabapentin 300 mg capsule 300 mg PO QHS 11/10/22 Unknown History melatonin 5 mg tablet 5 mg PO HS PRN sleep 11/10/22 Unknown History Handicap placard #1 ea 04/12/23 Unknown Rx vitamins A,C,R-swsm-qhbsaw 4,296 1 cap PO BID eye health 04/12/23 Unknown History mcg-226 mg-90 mg capsule furosemide 40 mg tablet (Lasix) 40 mg PO DAILY #90 tabs 04/13/23 Unknown Rx potassium chloride 20 mEq 20 meq PO BID #90 tabs 06/01/23 Unknown Rx tablet,extended release diltiazem HCl 120 mg 120 mg PO BID heart #90 caps 06/23/23 Unknown Rx capsule,extended release 24 hr losartan 25 mg tablet 25 mg PO DAILY #90 tabs 06/23/23 Unknown Rx sucralfate 1 gram tablet 1 g PO ONCE #30 tabs 02/04/24 Unknown Rx apixaban 5 mg tablet (Eliquis) 5 mg PO BID #60 tabs 03/21/24 Unknown Rx Allergy/AdvReac Type Severity Reaction Status Date / Time oxycodone (From Percocet) AdvReac Upset Verified 04/05/24 10:07 Stomach Family History Mother Anemia Hypertension Brother Hypertension Grandfather Cancer Surgical History Hx of colonoscopy History of bilateral cataract extraction History of hemorrhoidectomy History of repair of right rotator cuff History of laparoscopy History of appendectomy History of hysterectomy Social History household members: family housing: house Smoking Status: Former smoker Tobacco: How many years used: 25 how long ago did patient quit smokin alcohol intake: never substance use type: does not use what type of physical activity do you participate in: none ROS ROS ED Constitutional Constitutional ED: Denies chills, fever(s) or sweats Eyes Eyes: Denies change in vision ENT ENT ED: Denies dysphagia or sore throat Cardiovascular Cardiovascular: Denies chest pain, leg edema, palpitations or racing heartbeat Respiratory/Chest Respiratory/Chest: Denies cough, dyspnea or dyspnea on exertion Gastrointestinal Gastrointestinal: Denies abdominal pain, diarrhea, nausea or vomiting Genitourinary Genitourinary ED: Denies dysuria, hematuria or urinary frequency Musculoskeletal Musculoskeletal: Denies back pain, extremity pain or neck pain Integumentary Denies rash or wounds Neurologic Neurologic: Denies headache(s), paresthesias or weakness EXAM Physical Exam Const Vital Signs: 04/05/24 10:05 04/05/24 12:05 04/05/24 14:00 Temperature 97.8 F Temperature Source Oral Pulse Rate 108 H Respiratory Rate 16 20 H 20 H Blood Pressure 135/89 H 149/67 H 150/64 H Blood Pressure Mean 104 94 92 Pulse Ox 95 100 100 Oxygen Delivery Method Room Air Room Air Room Air 04/05/24 14:17 Temperature 97.9 F Temperature Source Pulse Rate 79 Respiratory Rate 16 Blood Pressure 148/68 H Blood Pressure Mean 94 Pulse Ox 99 Oxygen Delivery Method Positive well nourished and well developed General Appearance ED: well developed and NAD HEENT Reports moist mucous membranes normocephalic and atraumatic Eyes EOMs intact bilaterally and conjunctivae normal General Eye ED: Yes normal appearance of both eyes Neck no lymphadenopathy and supple General: Negative for tenderness Chest Wall Chest: Negative for tenderness Resp normal respiratory effort and normal air movement Effort and Inspection: symmetric chest movement; Negative for respiratory distress Cardio regular rate and no murmurs Rhythm: abnormal rhythm Peripheral Pulses: pulses 2+ throughout GI normal to inspection, nondistended, normoactive bowel sounds and non-tender Palpation: Negative for guarding or rebound tenderness present Back/Spine no CVA tenderness and no thoracic nor lumbar tenderness Extremity normal to inspection General Extremety ED: Negative for edema or tenderness General Extremity: Negative for edema Neuro oriented x3 and no sensory deficits noted Sensorium / Orientation: awake and alert Skin no rashes or lesions noted and no wounds MDM MDM MDM Narrative Medical decision making narrative: Interventions / MDM: Differential diagnosis:. transient confusion. Urinary tract infection, electrolyte abnormalities Diagnosis considered but do not suspect: N/A My EKG interpretation: Atrial fibrillation rate of 101, no ST or T wave changes. Imaging independently reviewed and interpreted by myself: CT brain: No acute process per radiology. Two-view chest x-ray no acute process also read by radiology. External documents reviewed: N/A Test considered but not ordered:N/A ED course: Alert and orient x 3 with no focal deficits. Heart is irregular. Will obtain EKG, will check labs urine and CT brain. Two-view chest x-ray also ordered. 1345: CT brain negative. Chest x-ray any. Labs stable except for slight hypokalemia 3.0. Oral replacement was given. This would not be the cause of her symptoms. Urine did note signs of infection. She had urine culture sent from her PCP office. She had Macrobid sent to her pharmacy. I discussed her first dose in the ED however patient and son states they will order picker/assembler on the way home and start taking. They will follow-up with their doctor for further workup with return precautions. All questions were answered. Re-evaluation: stable Disposition discussed with patient/family/significant other: Patient and son Case discussed with consulting clinician: N/A This note was generated with [employer] dictation software. It may contain incorrect words, spelling, and punctuation that were not noted in checking the note before signing. Lab Data Attestation: I reviewed the patient's lab results. Labs: Laboratory Results - last 24 hr 04/05/24 04/05/24 10:44 12:30 WBC 5.3 RBC 4.81 Hgb 13.8 Hct 44.4 MCV 92.3 MCH 28.7 MCHC 31.1 L RDW Std Deviation 54.4 H RDW Coeff of Arben 15.9 H Plt Count 254 MPV 9.6 Immature Gran % (Auto) 0.200 Neut % (Auto) 61.8 Lymph % (Auto) 26.4 [place] % (Auto) 8.2 Eos % (Auto) 1.5 Baso % (Auto) 1.9 H Absolute Neuts (auto) 3.3 Absolute Lymphs (auto) 1.41 Nucleated RBC % 0 Sodium 144 Potassium 3.0 L Chloride 110 H Carbon Dioxide 29.0 Anion Gap 5 BUN 13 Creatinine 1.19 H Estim Creat Clear Calc 30.39 Est GFR (MDRD) Af Amer 56 L Est GFR (MDRD) Non-Af 46 L BUN/Creatinine Ratio 10.9 Glucose 122 H Calcium 9.5 Total Bilirubin 1.10 H AST 13 L ALT 12 L Alkaline Phosphatase 124 H Total Protein 6.9 Albumin 3.5 Globulin 3.4 Albumin/Globulin Ratio 1.0 Urine Color Yellow Urine Clarity Cloudy Urine pH 6.5 Ur Specific [place] 1.020 Urine Protein 30 H Urine Glucose (UA) Normal Urine Ketones Negative Urine Occult Blood 25 H Urine Nitrite Negative Urine Bilirubin 1 H Urine Urobilinogen 8 H Ur Leukocyte Esterase 500 H Urine RBC 25-50 SEEN Urine WBC >100 SEEN Ur Squamous Epith Cells 5-10 SEEN Urine Bacteria 2+ Urine Mucus 0 SEEN Radiography Diagnostic Testing: Clinical Impression(s) from Imaging Studies Brain CT 04/05/24 10:32 IMPRESSION: No acute intracranial process identified. Chronic involutional and white matter changes. Electronically Signed: Esther Ayers MD at 11:22 EST , Chest X-Ray 04/05/24 10:54 IMPRESSION: No acute cardiopulmonary process identified. Electronically Signed: Esther Ayers MD at 11:26 EST , Discharge Plan Triage Chief Complaint: Confusion ED Provider: Steve Interiano Dx/Rx/DC Orders Clinical Impression: Acute UTI, Atrial fibrillation, Hypokalemia Instructions: Urinary Tract Infections in Women, AFib Dc Prescriptions: No Action melatonin 5 mg tablet 5 mg PO HS PRN (Reason: sleep) (DME) Handicap placard See Rx Instructions .Route .MEDSUPPLY Qty: 1 0RF Rx Instructions: Lifetime sucralfate 1 gram tablet 1 g PO ONCE Qty: 30 1RF potassium chloride 20 mEq tablet extended release 20 meq PO BID Qty: 90 3RF famotidine 40 MG tablet 40 mg PO BID biotin 10,000 MCG tablet,disintegrating 10,000 mcg PO DAILY atorvastatin 10 mg tablet 10 mg PO QHS cholecalciferol (vitamin D3) 25 mcg (1,000 unit) capsule 2,000 unit PO DAILY cyanocobalamin (vitamin B-12) 1,000 mcg tablet 2,000 mcg PO DAILY vitamins A,C,P-qybh-ngtfap 4,296 mcg-226 mg-90 mg capsule 1 cap PO BID latanoprost 0.005 % Drops 1 drp EACH EYE DAILY dorzolamide-timolol 22.3-6.8 mg/mL Drops 1 drp EACH EYE BID gabapentin 300 mg capsule 300 mg PO QHS brimonidine 0.2 % drops 2 drp EACH EYE BID Patient Comments: INSTILL 1 DROP INTO BOTH EYES TWICE A DAY furosemide [Lasix] 40 mg tablet 40 mg PO DAILY Qty: 90 3RF diltiazem HCl 120 mg capsule,extended release 24hr 120 mg PO BID Qty: 90 3RF losartan 25 mg tablet 25 mg PO DAILY Qty: 90 3RF Eliquis 5 mg tablet 5 mg PO BID Qty: 60 0RF Primary Care Provider: Bjorn Soares Referrals: Bjorn Soares MD [Primary Care Provider] - 1 Week Activity Restrictions/Additional Instructions: CT brain negative. Labs white count 5.3 hemoglobin 13.8. Potassium 3.0 with oral replacement given. Sodium 144. Creatinine 1.19. Glucose 122. Urine notes infection with leukocytes and greater than 100 white blood cells with 2+ bacteria. Take antibiotic sent to your pharmacy by your PCP today. Follow-up with your PCP. Print Language: Portuguese Disposition Disposition: Home, Self Care Discharge Date/Time: 04/05/24 14:20
[2024-04-05 10:53] LABS: Absolute Lymphocyte Count 1.41 X10^3/uL (0.83-4.51); Absolute Neutrophil Count 3.3 X10^3/uL (2.0-7.7); Basophil% 1.9 % (0-1); Eosinophil# 0.08 X10^3/uL; Eosinophils% 1.5 % (0-5); Hematocrit 44.4 % (37-47); Hemoglobin 13.8 g/dL (12.0-15.0); Lymphocyte # 1.41 X10^3/ul (0.83-4.51); Lymphocyte % 26.4 % (19-41); Mean Corp Hgb Conc 31.1 g/dL (32-36); Mean Corpuscular Hgb 28.7 pg (27.0-32.0); Mean Corpuscular Volume 92.3 fL (81-99); Mean Platelet Vol. 9.6 fl (6.2-12.0); Monocyte# 0.44 X10^3/uL; Monocyte% 8.2 % (0-10); NRBC Flagged by Analyzer 0 % (0-5); Neutrophil % 61.8 % (47-70); Platelet Count 254 K/mm3 (150-450); RBC Distribution Width CV 15.9 % (11.6-14.6); RBC Distribution Width SD 54.4 fl (35.1-43.9); Red Blood Count 4.81 M/mm3 (4.2-5.4); White Blood Count 5.3 K/mm3 (4.4-11.0)
--- NOTE | 2024-04-05 10:54 | RAD_ITS ---
HISTORY: cough. TECHNIQUE: XR Chest 2 Views. COMPARISON: 05/17/2023. FINDINGS: CARDIOMEDIASTINAL BORDERS: Cardiac silhouette within normal limits in size. Mediastinal contour also unchanged with calcification of the aortic knob. LUNGS: Radiographically clear. PLEURA: No pleural effusion or pneumothorax seen. OTHER: Mild scoliosis and degenerative change. Right upper quadrant surgical clips. RAD/Chest PA and Lateral IMPRESSION: No acute cardiopulmonary process identified. Electronically Signed: Esther Ayers MD at 11:26 EST ,
[2024-04-05 11:14] LABS: AST(SGOT) 13 U/L (15-37); Alanine Aminotransfer ALT/SGPT 12 U/L (13-56); Albumin, Serum 3.5 g/dL (3.2-5.0); Alkaline Phosphatase 124 U/L (45-117); Anion Gap 5 (5-15); BUN 13 mg/dL (7-18); BUN/Creat Ratio 10.9 RATIO (10-20); Calcium,Total 9.5 mg/dL (8.5-10.1); Chloride 110 mmol/L (98-107); Creatinine, Serum 1.19 mg/dL (0.55-1.02); EST Glomerular Filtration Rate 46 mL/min (>60); Est Glom Filt Rate - Afr Amer 56 mL/min (>60); Estimated Creatinine Clearance 30.39 ml/min; Globulin 3.4 g/dL (2.2-4.2); Glucose 122 mg/dL (74-106); Protein, Total 6.9 g/dL (6.4-8.2); Sodium Level 144 mmol/L (136-145)
[2024-04-05 12:05] VITALS: BP 149/67; RESP 20; O2SAT 100
[2024-04-05] MEDS: Potassium Chloride Oral Tablet 20 MEQ 40 MEQ PO (12:12)
[2024-04-05 12:34] LABS: Mucous, Urine 0 SEEN /hpf (<or=2+)
[2024-04-05 12:49] LABS: Color, Urine Yellow (Yellow); Glucose, Dipstick Normal (Normal); Ketone-Dipstick Negative (Negative); Leukocyte Esterase-Dipstick 500 /ul (Negative); Nitrite-Dipstick Negative (Negative); Occult Blood-Urine 25 /ul (Negative); Protein-Dipstick 30 mg/dl (Negative); Urine Clarity Cloudy (Clear); Urine Urobilinogen 8 mg/dl (Normal); Urine pH 6.5 (5.0 - 8.0)
[2024-04-05 12:50] LABS: Urine Bilirubin Dipstick 1 mg/dL (Negative)
[2024-04-05 12:55] LABS: Bacteria 2+ /hpf (None Seen); Red Blood Cells-Urine 25-50 SEEN /hpf (0-5); Squamous Epithelial Cells - UA 5-10 SEEN /hpf (5-10); White Blood Cells >100 SEEN /hpf (0-5)
[2024-04-05 14:00] VITALS: BP 150/64; RESP 20; O2SAT 100
[2024-04-05 14:17] VITALS: BP 148/68; PULSE 79; RESP 16; TEMP 36.6; O2SAT 99
== END 2024-04-05 14:20 | disposition home or self-care (01) ==
PROVIDERS: Emergency Provider Emergency Medicine; PCP Family Medicine; Visit Provider Emergency Medicine
DX: R41.0 Disorientation, unspecified (principal); I48.91 Unspecified atrial fibrillation; N18.30 Chronic kidney disease, stage 3 unspecified; N39.0 Urinary tract infection, site not specified; I12.9 Hypertensive chronic kidney disease with stage 1 through stage 4 chronic kidney disease, or unspecified chronic kidney disease; Z87.891 Personal history of nicotine dependence; E78.00 Pure hypercholesterolemia, unspecified; E87.6 Hypokalemia; Z79.01 Long term (current) use of anticoagulants; Z85.828 Personal history of other malignant neoplasm of skin; Z79.899 Other long term (current) drug therapy; Z98.41 Cataract extraction status, right eye; Z98.42 Cataract extraction status, left eye; Z90.49 Acquired absence of other specified parts of digestive tract; Z90.710 Acquired absence of both cervix and uterus
CPT/HCPCS: 70450; 71046; 80053; 81001; 85025; 93005; 99283

== ENCOUNTER 2024-06-15 08:46 | Inpatient (IN) | payer MEDICARE, OTHER, SELFPAY ==
[2024-06-15] VITALS (17 sets, daily range): BP systolic 86–162; BP diastolic 64–100; PULSE 66–118; RESP 16–22; TEMP 36–38.3; O2SAT 84–99; BMI 25.3; BMI 24.0
--- NOTE | 2024-06-15 09:04 | EKG12_ITS ---
Test Reason : CP Blood Pressure : */* mmHG Vent. Rate : 54 BPM Atrial Rate : * BPM P-R Int : * ms QRS Dur : 74 ms QT Int : 482 ms P-R-T Axes : * 10 -4 degrees QTcB Int : 457 ms Atrial fibrillation with slow ventricular response Septal infarct , age undetermined Abnormal ECG Confirmed by TU SHAH, TAN ([id number]), film editor LIV TADEO ([id number]) on 06/19/2024 8:06:00 AM Referred By: Confirmed By: TAN MAE MD
--- NOTE | 2024-06-15 09:04 | CT_ITS ---
EXAM: BRAIN/HEAD WITHOUT CONTRAST CLINICAL HISTORY: Confusion following a fall. The patient is on blood thinners. COMPARISON: Comparison is made with prior examination dated April 05, 2024. TECHNIQUE: Multiple axial tomographic images were obtained without intravenous contrast administration. Coronal and sagittal reconstruction was obtained as well. FINDINGS: Mild degree of cerebral atrophy. Old lacune in the right basal ganglion. Stable faint calcifications in the basal ganglia bilaterally. This is a normal variant in a patient of this age. CT/Brain/Head without Contrast IMPRESSION: Stable examination. No acute abnormality is seen. [facility]
--- NOTE | 2024-06-15 09:06 | CT_ITS ---
PROCEDURE: ABDOMEN/PELVIS WITHOUT CONT REASON FOR EXAM: Weakness and recent fall. Low back and leg pain. TECHNIQUE: Abdomen and pelvis CT without intravenous contrast. Coronal and sagittal reconstruction was obtained as well. COMPARISON: Comparison is made with prior study dated November 04, 2022. FINDINGS: Noncontrast technique limits evaluation of the abdominal and pelvic viscera. Lung bases: Small bilateral pleural effusions right slightly greater than left with increased markings at the lung bases suggestive of atelectasis and/or scarring. Coronary artery calcification. Liver: Unremarkable. Gallbladder: Surgically absent. Spleen: Unremarkable. Pancreas: Unremarkable. Adrenals: Unremarkable. Kidneys: 2.8 cm cyst in the mid lateral portion of the left kidney. Bladder: Unremarkable. Reproductive Organs: Prior hysterectomy. Adnexal regions are unremarkable. Bowel: Small hiatal hernia. Appendix: Normal. Lymph nodes: No suspicious lymph node enlargement. Vasculature: Mild diffuse atherosclerotic calcifications are noted. Peritoneum / Retroperitoneum: No ascites. No free air. Bones: Degenerative changes of the spine. CT/Abdomen/Pelvis without Cont IMPRESSION: Bibasilar atelectasis. Small bilateral pleural effusions. Stable left renal cyst. No acute abnormality is seen. One or more dose reduction techniques were used (e.g., Automated exposure contr ol, adjustment of the mA and/or kV according to patient size, use of iterative reconstruction technique). Reading Location: [place] [id number]
--- NOTE | 2024-06-15 09:09 | EX.ED.DYSGE1 ---
HPI History of Present Illness Chief Complaint: Fall Detail of Chief Complaint: Fall and back pain Informant: patient Narrative Narrative: Patient presents the emergency department after sustaining a fall this morning. She states that she really did not fall but is kind of slid out of bed. She was unable to get up afterwards and was on the floor for about 3 hours or so until her son found her. She complaining of low back pain that started yesterday not associated with the fall necessarily. She complains of pain radiating into her left leg and also right leg. The pain in her left leg goes down to her foot. She is on Eliquis for history of A-fib. She denies any significant injury to her head or neck this morning. She denies abdominal pain or recent illness. [facility] Medical History Dyspnea on exertion Wears glasses Cancer Ambulates with cane Bladder disease History of renal disease High cholesterol Easy bruising Migraine headache Injury of head and neck Former smoker Leg cramps History of edema History of stress test History of echocardiogram Cardiology follow-up encounter Shortness of breath on exertion LLQ abdominal pain CKD (chronic kidney disease) stage 3, GFR 30-59 ml/min Heart murmur Concussion Chronic urticaria Basal cell carcinoma Aortic stenosis Nonrheumatic mitral (valve) insufficiency Nonrheumatic aortic (valve) insufficiency Secondary pulmonary arterial hypertension Hyperlipidemia Seasonal allergies Anemia Glaucoma GERD (gastroesophageal reflux disease) Essential (primary) hypertension Premature atrial contractions History of shingles History of basal cell cancer History of rectocele History of melanoma Home Medications ?Medication ?Instructions ?Recorded ?Last Taken ?Type biotin 10,000 mcg disintegrating 10,000 mcg PO DAILY 05/28/17 06/03/20 History tablet famotidine 40 mg tablet 40 mg PO BID 05/28/17 06/14/24 History atorvastatin 10 mg tablet 10 mg PO QHS cholesterol 10/05/19 06/14/24 History dorzolamide 22.3 mg-timolol 6.8 1 drp EACH EYE BID 12/22/21 Unknown History mg/mL eye drops latanoprost 0.005 % eye drops 1 drp EACH EYE DAILY 12/22/21 Unknown History brimonidine 0.2 % eye drops 2 drp EACH EYE BID 11/10/22 06/14/24 History cholecalciferol (vitamin D3) 25 2,000 unit PO DAILY supplement 11/10/22 Unknown History mcg (1,000 unit) capsule cyanocobalamin (vitamin B-12) 2,000 mcg PO DAILY supplement 11/10/22 Unknown History 1,000 mcg tablet gabapentin 300 mg capsule 300 mg PO QHS 11/10/22 06/14/24 History melatonin 5 mg tablet 5 mg PO HS PRN sleep 11/10/22 Unknown History Handicap placard #1 ea 04/12/23 Unknown Rx vitamins A,C,U-sihf-eqkmus 4,296 1 cap PO BID eye health 04/12/23 Unknown History mcg-226 mg-90 mg capsule potassium chloride 20 mEq 20 meq PO BID #90 tabs 06/01/23 06/14/24 Rx tablet,extended release diltiazem HCl 120 mg 120 mg PO BID heart #90 caps 06/23/23 06/14/24 Rx capsule,extended release 24 hr losartan 25 mg tablet 25 mg PO DAILY #90 tabs 06/23/23 06/14/24 Rx sucralfate 1 gram tablet 1 g PO ONCE #30 tabs 02/04/24 Unknown Rx furosemide 40 mg tablet (Lasix) 40 mg PO DAILY #90 tabs 04/10/24 06/14/24 Rx apixaban 5 mg tablet (Eliquis) 5 mg PO BID #60 tabs 05/05/24 06/14/24 Rx Allergy/AdvReac Type Severity Reaction Status Date / Time oxycodone (From Percocet) AdvReac Upset Verified 06/15/24 10:35 Stomach Family History Mother Anemia Hypertension Brother Hypertension Grandfather Cancer Surgical History Hx of colonoscopy History of bilateral cataract extraction History of hemorrhoidectomy History of repair of right rotator cuff History of laparoscopy History of appendectomy History of hysterectomy Social History household members: family housing: house Smoking Status: Former smoker Tobacco: How many years used: 25 how long ago did patient quit smokin alcohol intake: never substance use type: does not use what type of physical activity do you participate in: none ROS ROS ED Review of Systems ROS Unobtainable: other Constitutional Constitutional ED: Reports lethargy; Denies chills, fever(s), sweats or weight loss Eyes Eyes: Denies blurry vision, change in vision or diplopia ENT ENT ED: Denies rhinorrhea or sore throat Cardiovascular Cardiovascular: Reports chest pain and racing heartbeat; Denies orthopnea Respiratory/Chest Respiratory/Chest: Reports dyspnea and dyspnea on exertion; Denies cough, orthopnea or sputum Gastrointestinal Gastrointestinal: Denies abdominal pain, diarrhea, nausea or vomiting Genitourinary Genitourinary ED: Denies dysuria, hematuria or urinary frequency Musculoskeletal Musculoskeletal: Reports back pain; Denies arthralgias, myalgias or neck pain Integumentary Denies abscess, Abrasions or rash Neurologic Neurologic: Denies headache(s) or weakness Psychiatric Psychiatric: Denies anxiety, depression or suicidal thoughts Endocrine Endocrinology: Denies polydipsia, polyphagia or polyuria Hematologic/Lymphatic Hematologic/Lymphatic: Denies easy bleeding, easy bruising or lymphadenopathy Allergic/Immunologic Allergic/Immunologic ED: Denies mouth swelling, tongue swelling or urticaria EXAM Physical Exam Const Vital Signs: 06/15/24 08:47 06/15/24 09:35 06/15/24 09:35 Temperature 96.8 F L 97.7 F L Temperature Source Temporal Temporal Pulse Rate 118 H 103 H Respiratory Rate 16 20 H Respiratory Effort Normal Non-Labored Respiratory Depth Normal Respiratory Pattern Normal Blood Pressure 86/68 L 133/88 H Blood Pressure Mean 74 103 Pulse Ox 93 94 Oxygen Delivery Method Room Air Nasal Cannula Nasal Cannula Oxygen Flow Rate (L/min) 4 4 06/15/24 09:35 06/15/24 10:00 06/15/24 11:00 Temperature 97.9 F Temperature Source Oral Pulse Rate 112 H 66 Respiratory Rate 19 H 19 H Respiratory Effort Respiratory Depth Respiratory Pattern Blood Pressure 153/75 H 99/70 Blood Pressure Mean 101 79 Pulse Ox 84 94 99 Oxygen Delivery Method Room Air Nasal Cannula Oxygen Flow Rate (L/min) 4 06/15/24 11:00 06/15/24 13:21 06/15/24 13:21 Temperature 97.7 F L 99.7 F H Temperature Source Oral Temporal Pulse Rate 106 H 92 Respiratory Rate 18 19 H Respiratory Effort Respiratory Depth Respiratory Pattern Blood Pressure 110/70 147/87 H 147/87 H Blood Pressure Mean 83 107 107 Pulse Ox 93 97 Oxygen Delivery Method Nasal Cannula Nasal Cannula Oxygen Flow Rate (L/min) 4 3 Positive well nourished and well developed General Appearance ED: well developed and NAD HEENT Reports TM's clear and moist mucous membranes normocephalic and atraumatic; Negative for trauma or tenderness Tympanic Membrane ED: Yes TM's clear Eyes PERRL and EOMs intact bilaterally General Eye ED: Negative for pale conjunctiva or scleral icterus Neck no lymphadenopathy, supple and no JVD General: Negative for tenderness Chest Wall inspection of chest normal and palpation of chest normal Chest: Negative for tenderness Resp normal respiratory effort and clear to auscultation bilaterally Effort and Inspection: Negative for respiratory distress or pain with movement Auscultation: Negative for rhonchi, wheezes or diminished lung sounds Cardio S1 normal heart sound, S2 normal heart sound and no murmurs; Negative for regular rate or regular rhythm Rate: tachycardic Rhythm: abnormal rhythm irregularly irregular Peripheral Pulses: pulses 2+ throughout GI normal to inspection, nondistended, normoactive bowel sounds, soft to palpation, non-tender, non-distended and no masses Back/Spine no thoracic nor lumbar tenderness Back/Spine Narrative: Left CVA tenderness on exam. No significant tenderness over the lumbar spine. Positive straight leg raise on the left at about 45 degrees while supine Extremity normal to inspection General Extremety ED: Negative for edema General Extremity: Negative for edema Neuro oriented x3, CN's II-XII intact bilaterally, no sensory deficits noted and gait normal Sensorium / Orientation: awake, alert, oriented to person, oriented to place and oriented to time Motor Exam: strength 5/5 throughout and strength abnormal Psych mental status grossly normal Skin no rashes or lesions noted and no wounds MDM MDM MDM Narrative Medical decision making narrative: Patient presents after slipping out of bed and being found on the floor by her son. Patient with a cough for several days. Complaining of pain in her back that started yesterday. She complains of pain rating down her left leg and at times down the right leg. Patient is on Eliquis for history of A-fib. She is not sure why she slid out of bed. She was getting up to go to the bathroom at the time. Concern for radiculopathy and given that she is on Eliquis concern for epidural hematoma causing symptoms. CBC with differential white count of 10.9 with hemoglobin 13.7 platelet count 259. Chemistries unremarkable. Total CPK was 86 troponin was 32. Urinalysis unremarkable. Patient a CT scan of the abdomen pelvis that was unremarkable. CT was done because she was complaining of pain in her back and initially she was hypotensive and wanted to rule out AAA or aortic dissection. CT scan of the brain without contrast was unremarkable. We did order an MRI of her lumbar spine results which are pending. COVID flu and RSV testing was positive for COVID-19. Patient was given fentanyl for pain in her back. Had to be given a second dose for continued pain. Subsequently patient developed some mild hypoxemia and was placed on nasal cannula O2 at 3 L. 1 view chest x-ray obtained interpreted by myself as increased markings diffusely with pulmonary congestion in the right upper lobe and right lower lobe. Suspect these changes may be related to COVID-19 infection. Care of patient turned over to evening physician awaiting MRI results and final disposition although she may warrant admission for pain control specially given her generalized weakness and unable to get off the floor this morning. Care of patient turned over to evening physician awaiting MRI results. I feel patient will likely require admission for COVID and hypoxemia and ongoing back pain radiating to her left leg. Lab Data Attestation: I reviewed the patient's lab results. Labs: Laboratory Results - last 24 hr 06/15/24 06/15/24 09:14 12:15 WBC 10.9 RBC 4.58 Hgb 13.7 Hct 42.3 MCV 92.4 MCH 29.9 MCHC 32.4 RDW Std Deviation 50.0 H RDW Coeff of Arben 14.8 H Plt Count 259 MPV 9.7 Immature Gran % (Auto) 0.400 Neut % (Auto) 79.4 H Lymph % (Auto) 11.3 L [place] % (Auto) 7.6 Eos % (Auto) 0.1 Baso % (Auto) 1.2 H Absolute Neuts (auto) 8.7 H Absolute Lymphs (auto) 1.23 Nucleated RBC % 0 Sodium 135 L Potassium 3.6 Chloride 105 Carbon Dioxide 23.0 Anion Gap 7 BUN 16 Creatinine 1.08 H Est GFR (MDRD) Af Amer 62 Est GFR (MDRD) Non-Af 51 L BUN/Creatinine Ratio 14.8 Glucose 163 H Calcium 9.5 Total Creatine Kinase 86 Troponin I High Sens 32 Urine Color Yellow Urine Clarity Sl. Cloudy Urine pH 6.5 Ur Specific [place] 1.015 Urine Protein 30 H Urine Glucose (UA) Normal Urine Ketones 15 H Urine Occult Blood 50 H Urine Nitrite Positive H Urine Bilirubin Negative Urine Urobilinogen Normal Ur Leukocyte Esterase 25 H Urine RBC 0-5 SEEN Urine WBC 5-10 SEEN Ur Squamous Epith Cells 0 SEEN Urine Bacteria 0 SEEN Urine Mucus 4+ Radiography Diagnostic Testing: Clinical Impression(s) from Imaging Studies Brain CT 06/15/24 09:04 IMPRESSION: Stable examination. No acute abnormality is seen. Reading Location: [facility] Abdomen/Pelvis CT 06/15/24 09:06 IMPRESSION: Bibasilar atelectasis. Small bilateral pleural effusions. Stable left renal cyst. No acute abnormality is seen. One or more dose reduction techniques were used (e.g., Automated exposure control, adjustment of the mA and/or kV according to patient size, use of iterative reconstruction technique). Reading Location: [facility] Chest X-Ray 06/15/24 14:43 IMPRESSION: Prominent airspace disease is newly seen in the right upper and lower lung zones, concerning for the presence of PNEUMONITIS. No clear evidence of pulmonary edema is seen. No pleural effusion or pneumothorax is noted. The cardiomediastinal silhouette is remarkable for a calcified aorta. No evidence of cardiomegaly. Also, right upper quadrant abdominal surgical clips are again present. Reading Location: [id number] 1 view chest x-ray obtained interpreted by myself as increased markings right upper lobe and right lower lobe unclear if this is edema versus infiltrate. EKG Initial EKG: Attestation: I personally reviewed and interpreted this EKG as follows: Comments: Atrial fibrillation with rate of 109 bpm with old septal infarct Discharge Plan Triage Chief Complaint: Fall ED Provider: Jake Montanez Dx/Rx/DC Orders Clinical Impression: COVID-19, Acute left lumbar radiculopathy, Atrial fibrillation Prescriptions: No Action melatonin 5 mg tablet 5 mg PO HS PRN (Reason: sleep) (DME) Handicap placard See Rx Instructions .Route .MEDSUPPLY Qty: 1 0RF Rx Instructions: Lifetime sucralfate 1 gram tablet 1 g PO ONCE Qty: 30 1RF potassium chloride 20 mEq tablet extended release 20 meq PO BID Qty: 90 3RF famotidine 40 MG tablet 40 mg PO BID biotin 10,000 MCG tablet,disintegrating 10,000 mcg PO DAILY atorvastatin 10 mg tablet 10 mg PO QHS cholecalciferol (vitamin D3) 25 mcg (1,000 unit) capsule 2,000 unit PO DAILY cyanocobalamin (vitamin B-12) 1,000 mcg tablet 2,000 mcg PO DAILY vitamins A,C,P-xvgr-vdzdul 4,296 mcg-226 mg-90 mg capsule 1 cap PO BID latanoprost 0.005 % Drops 1 drp EACH EYE DAILY dorzolamide-timolol 22.3-6.8 mg/mL Drops 1 drp EACH EYE BID gabapentin 300 mg capsule 300 mg PO QHS brimonidine 0.2 % drops 2 drp EACH EYE BID Patient Comments: INSTILL 1 DROP INTO BOTH EYES TWICE A DAY diltiazem HCl 120 mg capsule,extended release 24hr 120 mg PO BID Qty: 90 3RF losartan 25 mg tablet 25 mg PO DAILY Qty: 90 3RF furosemide [Lasix] 40 mg tablet 40 mg PO DAILY Qty: 90 0RF Eliquis 5 mg tablet 5 mg PO BID Qty: 60 11RF Primary Care Provider: Bjorn Soares Referrals: Bjorn Soares MD [Primary Care Provider] - Print Language: Divehi
[2024-06-15] MEDS: 0.9% Normal Saline (1000mL) 1,000 ML 1000 ML IV (09:12)
[2024-06-15] MEDS: fentaNYL 100 MCG/2 ML Ampul 25 MCG IV ×2 (09:12→14:33)
[2024-06-15] MEDS: Ondansetron 4 MG/2 ML Vial IV (09:12)
[2024-06-15 09:27] LABS: Absolute Lymphocyte Count 1.23 X10^3/uL (0.83-4.51); Absolute Neutrophil Count 8.7 X10^3/uL (2.0-7.7); Basophil# 0.13 X10^3/uL; Basophil% 1.2 % (0-1); Eosinophil# 0.01 X10^3/uL; Eosinophils% 0.1 % (0-5); Hematocrit 42.3 % (37-47); Hemoglobin 13.7 g/dL (12.0-15.0); Lymphocyte # 1.23 X10^3/ul (0.83-4.51); Lymphocyte % 11.3 % (19-41); Mean Corp Hgb Conc 32.4 g/dL (32-36); Mean Corpuscular Hgb 29.9 pg (27.0-32.0); Mean Corpuscular Volume 92.4 fL (81-99); Mean Platelet Vol. 9.7 fl (6.2-12.0); Monocyte# 0.83 X10^3/uL; Monocyte% 7.6 % (0-10); NRBC Flagged by Analyzer 0 % (0-5); Neutrophil # 8.68 X10^3/uL (2.7-7.7); Neutrophil % 79.4 % (47-70); Platelet Count 259 K/mm3 (150-450); RBC Distribution Width CV 14.8 % (11.6-14.6); Red Blood Count 4.58 M/mm3 (4.2-5.4); White Blood Count 10.9 K/mm3 (4.4-11.0)
[2024-06-15 09:45] LABS: Anion Gap 7 (5-15); BUN 16 mg/dL (7-18); BUN/Creat Ratio 14.8 RATIO (10-20); CPK Total, Creatine Kinase 86 U/L (26-192); Calcium,Total 9.5 mg/dL (8.5-10.1); Chloride 105 mmol/L (98-107); Creatinine, Serum 1.08 mg/dL (0.55-1.02); EST Glomerular Filtration Rate 51 mL/min (>60); Est Glom Filt Rate - Afr Amer 62 mL/min (>60); Glucose 163 mg/dL (74-106); Potassium 3.6 mmol/L (3.5-5.1); Sodium Level 135 mmol/L (136-145); Troponin-I HS 32 pg/mL (3.0-54.0)
--- NOTE | 2024-06-15 10:10 | MRI_ITS ---
PROCEDURE: SPINE LUMBAR (ROUTINE) REASON FOR EXAM: Radiculopathy on apixaban rule out epidural hematoma TECHNIQUE: Lumbar spine MRI without intravenous gadolinium-based contrast. COMPARISON: 06/15/2024; 11/02/2022 FINDINGS: Vertebrae: There is a slight chronic insufficiency fracture of the superior endplate of T12. The lumbar vertebral heights are preserved. Bone marrow changes present consistent with endplate degenerative changes. No acute marrow edema. Alignment: A levoscoliosis is present centered about the L2-3 level. There is a slight anterolisthesis of L3 on L4. Conus Medullaris: Terminates at the L1 vertebral level. L1-2: Severe degenerative disc disease is present with diffuse disc osteophyte complex and facet hypertrophy. There is dncnqwni-sj-vljtgd right neural foraminal stenosis with abutment of the nerve root and mild left neural foraminal stenosis. Moderate spinal canal stenosis is present with near complete effacement of the CSF space. L2-3: Severe degenerative disc disease is present with a diffuse disc osteophyte complex and facet hypertrophy contributing to mild spinal canal stenosis and moderate right and moderate left neural foraminal stenosis. There is also apobmxku-dg-hrnvhf right lateral recess stenosis. L3-4: Moderate degenerative disc disease is present with a diffuse disc bulge, facet hypertrophy and ligamentum flavum hypertrophy contributing to severe right neural foraminal stenosis with abutment of the nerve root and moderate left neural foraminal stenosis. There is severe lateral recess stenosis bilaterally and nawc-bi-rcamgnfi spinal canal stenosis. L4-5: Ckiphhdu-eo-okyhzj degenerative disc disease is present with a mild diffuse disc bulge as well as a more focal disc protrusion at the left lateral recess and bilateral facet hypertrophy contributing to severe stenosis/complete effacement of the left lateral recess, moderate bilateral neural foraminal stenosis and mild spinal canal stenosis. L5-S1: Mild degenerative disc disease is present with a leftward asymmetric disc bulge and facet hypertrophy contributing to lhzkzzmk-rk-xrgrjk left neural foraminal stenosis and budv-bz-axuwbtsl right neural foraminal stenosis. Sacrum: Visualized upper sacrum and SI joints are unremarkable. No epidural hemorrhage is identified. MRI/Spine Lumbar (Routine) IMPRESSION: 1. No evidence of epidural hemorrhage. 2. Aknpfjuj-jo-neyvtr multilevel degenerative changes, as described in detail a mani. Specific note is made of a focal disc protrusion at the left lateral recess of L4-5 contributing to complete effaceme nt/severe stenosis of the left lateral recess at this level. 3. Levoscoliosis of the lumbar spine as well as a slight anterolisthesis of L3 on L4. Reading Location: [facility]
[2024-06-15 12:19] LABS: Bacteria 0 SEEN /hpf (None Seen); Squamous Epithelial Cells - UA 0 SEEN /hpf (5-10)
[2024-06-15 12:37] LABS: Color, Urine Yellow (Yellow); Glucose, Dipstick Normal (Normal); Ketone-Dipstick 15 mg/dl (Negative); Leukocyte Esterase-Dipstick 25 /ul (Negative); Nitrite-Dipstick Positive (Negative); Occult Blood-Urine 50 /ul (Negative); Protein-Dipstick 30 mg/dl (Negative); Specific Gravity, Urine 1.015 (1.002-1.030); Urine Bilirubin Dipstick Negative (Negative); Urine Clarity Sl. Cloudy (Clear); Urine Urobilinogen Normal (Normal); Urine pH 6.5 (5.0 - 8.0)
[2024-06-15 12:48] LABS: Mucous, Urine 4+ /hpf (<or=2+); White Blood Cells 5-10 SEEN /hpf (0-5)
[2024-06-15 12:49] LABS: Red Blood Cells-Urine 0-5 SEEN /hpf (0-5)
--- NOTE | 2024-06-15 14:43 | RAD_ITS ---
PROCEDURE: CHEST 1 VIEW (PORTABLE) REASON FOR EXAM: Cough. TECHNIQUE: Frontal view of the chest. COMPARISON: Chest x-ray of 04/05/2020 RAD/Chest 1 View (Portable) IMPRESSION: Prominent airspace disease is newly seen in the right upper and lower lung zone s, concerning for the presence of PNEUMONITIS. No clear evidence of pulmonary edema is seen. No pleural effusion or pneumothorax is noted. The cardiomediastinal silhouette is remarkable for a calcified aorta. No evide nce of cardiomegaly. Also, right upper quadrant abdominal surgical clips are again present. Reading Location: [id number]
--- NOTE | 2024-06-15 16:40 | PCM.HP.STD ---
[facility] - General General Date of Admission: 06/15/24 Date of Service: 06/15/24 Chief Complaint: Left leg pain HPI Narrative JIL DÍAZ, is a 84 F who presented to the emergency department [facility] on 06/15/2024 after sliding out of bed and having back and leg pain. She did not have a fall per se and really ported that she just slid onto the floor and landed on her buttocks. She was unable to get up afterwards and was on the floor for about 3 hours until her son found her. On presentation she was complaining of low back pain. She reported that low back pain and leg pain started yesterday and was not associated with the fall itself. Leg pain started from her back and radiated to her left leg. She also has right leg symptoms. Symptoms in her left leg down to her foot. She is on Eliquis with a history of atrial fibrillation. She also reported that she has been having some upper respiratory symptoms for about 3 to 4 days now. She states today she feels worse than she has previously and really started feeling more poorly yesterday. She has been coughing with predominant dry hacking cough and having some myalgias and decreased appetite. She was found to be hypoxemic in the emergency department at 84% on room air and was placed on 4 L nasal cannula with improvement oxygen saturations. Patient did develop a fever while in the emergency department at 101. Vital signs on presentation showed temperature 96.8, heart rate 118, respiratory rate 16, blood pressure was initially 86/60 with a repeat of 133/88, respiratory rate was 16 and pulse ox was 84% on room air. She improved to 94% after being placed on 4 L nasal cannula. CBC was unremarkable but she does have a left shift with a 79.4% neutrophilia. Chemistry panel was overtly unremarkable. CK was 86, troponin was 32. BNP was 481.8. UA does show some occult blood, nitrates, some leuk esterase, with some white cells, but no bacteria and patient is not having any urinary symptoms. Extensive imaging was performed. CT of the brain was unremarkable for any acute findings but did showed an old lacunar infarct in the right basal ganglia. CT of the abdomen pelvis showed bibasilar atelectasis with small bilateral pleural effusions, stable left renal cyst and no acute abnormalities. Lumbar spine MRI was performed given her symptoms and her leg pain on presentation and showed no evidence of epidural hemorrhage but did demonstrate moderate to severe multilevel degenerative changes most notably focal disc protrusion in the left lateral recess of L4-L5 contributing to complete effacement and severe stenosis of the left lateral recess as well as levoscoliosis of the lumbar spine. Chest x-ray shows prominent bilateral airspace disease and on exam she has significant right-sided adventitious sounds with a relatively clear left lung field. EKG was A-fib with rate control and no ST-T wave changes concerning for acute ischemia. [facility] Medical History Dyspnea on exertion Wears glasses Cancer Ambulates with cane Bladder disease History of renal disease High cholesterol Easy bruising Migraine headache Injury of head and neck Former smoker Leg cramps History of edema History of stress test History of echocardiogram Cardiology follow-up encounter Shortness of breath on exertion LLQ abdominal pain CKD (chronic kidney disease) stage 3, GFR 30-59 ml/min Heart murmur Concussion Chronic urticaria Basal cell carcinoma Aortic stenosis Nonrheumatic mitral (valve) insufficiency Nonrheumatic aortic (valve) insufficiency Secondary pulmonary arterial hypertension Hyperlipidemia Seasonal allergies Anemia Glaucoma GERD (gastroesophageal reflux disease) Essential (primary) hypertension Premature atrial contractions History of shingles History of basal cell cancer History of rectocele History of melanoma Home Medications ?Medication ?Instructions ?Recorded ?Last Taken ?Type biotin 10,000 mcg disintegrating 10,000 mcg PO DAILY 05/28/17 06/03/20 History tablet famotidine 40 mg tablet 40 mg PO BID 05/28/17 06/14/24 History atorvastatin 10 mg tablet 10 mg PO QHS cholesterol 10/05/19 06/14/24 History dorzolamide 22.3 mg-timolol 6.8 1 drp EACH EYE BID 12/22/21 Unknown History mg/mL eye drops latanoprost 0.005 % eye drops 1 drp EACH EYE DAILY 12/22/21 Unknown History brimonidine 0.2 % eye drops 2 drp EACH EYE BID 11/10/22 06/14/24 History cholecalciferol (vitamin D3) 25 2,000 unit PO DAILY supplement 11/10/22 Unknown History mcg (1,000 unit) capsule cyanocobalamin (vitamin B-12) 2,000 mcg PO DAILY supplement 11/10/22 Unknown History 1,000 mcg tablet gabapentin 300 mg capsule 300 mg PO QHS 11/10/22 06/14/24 History melatonin 5 mg tablet 5 mg PO HS PRN sleep 11/10/22 Unknown History Handicap placard #1 ea 04/12/23 Unknown Rx vitamins A,C,Q-iqhu-[id number] 4,296 1 cap PO BID eye health 04/12/23 Unknown History mcg-226 mg-90 mg capsule potassium chloride 20 mEq 20 meq PO BID #90 tabs 06/01/23 06/14/24 Rx tablet,extended release diltiazem HCl 120 mg 120 mg PO BID heart #90 caps 06/23/23 06/14/24 Rx capsule,extended release 24 hr losartan 25 mg tablet 25 mg PO DAILY #90 tabs 06/23/23 06/14/24 Rx sucralfate 1 gram tablet 1 g PO ONCE #30 tabs 02/04/24 Unknown Rx furosemide 40 mg tablet (Lasix) 40 mg PO DAILY #90 tabs 04/10/24 06/14/24 Rx apixaban 5 mg tablet (Eliquis) 5 mg PO BID #60 tabs 05/05/24 06/14/24 Rx Allergy/AdvReac Type Severity Reaction Status Date / Time oxycodone (From Percocet) AdvReac Upset Verified 06/15/24 10:35 Stomach Family History Mother Anemia Hypertension Brother Hypertension Grandfather Cancer Surgical History Hx of colonoscopy History of bilateral cataract extraction History of hemorrhoidectomy History of repair of right rotator cuff History of laparoscopy History of appendectomy History of hysterectomy Social History household members: family housing: house Smoking Status: Former smoker Tobacco: How many years used: 25 how long ago did patient quit smokin alcohol intake: never substance use type: does not use what type of physical activity do you participate in: none ROS Constitutional Constitutional: Reports anorexia, chills, fatigue, fever(s), malaise and weakness Eyes Eyes: Denies blurry vision, change in eye color, change in vision, discharge from eye(s), double vision, erythema, eye pain, loss of vision or other ENT HEENT: Reports nasal discharge; Denies abnormal hearing, dysphagia, ear pain, epistaxis, headache(s), hearing loss, nasal congestion, sinus pressure, sore throat or other Cardiovascular Cardiovascular: Reports dyspnea on exertion; Denies chest pain, claudication, edema, lightheadedness, orthopnea, palpitations, paroxysmal nocturnal dyspnea, rapid heart rate, syncope or other Respiratory/Chest Respiratory/Chest: Reports cough, dyspnea, productive cough, shortness of breath at rest and shortness of breath with exertion; Denies excessive phlegm production, hemoptysis, wheezing or other Gastrointestinal Gastrointestinal: Denies abdominal pain, coffee ground emesis, constipation, diarrhea, dyspepsia, hematemesis, hematochezia, loose stools, melena, nausea, vomiting or other Genitourinary Genitourinary: Denies burning urination, difficulty urinating, dysuria, hematuria, nocturia, urinary frequency, urinary hesitancy, urinary incontinence, urinary urgency or other Musculoskeletal Musculoskeletal: Reports back pain; Denies arthralgias, joint pain, joint stiffness, joint swelling, myalgias, neck pain or other Neurologic Neurologic: Denies abnormal gait, abnormal speech, confusion, disequilibrium, dizziness, focal weakness, headache(s), numbness, paresthesias, seizure-like activity, seizures, syncope, tingling, tremor(s) or other Psychiatric Psychiatric: Denies anxiety, depression, homicidal ideation, suicidal ideation or other Endocrine Endocrinology: Denies change in body appearance, cold intolerance, excessive sweating, heat intolerance, polydipsia, polyuria or other Hematologic/Lymphatic Hematologic/Lymphatic: Denies anemia, easy bleeding, easy bruising, lymphadenopathy or other Allergic/Immunologic Allergic/Immunologic: Denies rhinitis, hives, eczemia, asthma or other Vital Signs Vital Signs Vital Signs: 06/15/24 08:47 06/15/24 09:35 06/15/24 09:35 Temperature 96.8 F L 97.7 F L Temperature Source Temporal Temporal Pulse Rate 118 H 103 H Respiratory Rate 16 20 H Respiratory Effort Normal Non-Labored Respiratory Depth Normal Respiratory Pattern Normal Blood Pressure 86/68 L 133/88 H Blood Pressure Mean 74 103 Pulse Ox 93 94 Oxygen Delivery Method Room Air Nasal Cannula Nasal Cannula Oxygen Flow Rate (L/min) 4 4 06/15/24 09:35 06/15/24 10:00 06/15/24 11:00 Temperature 97.9 F Temperature Source Oral Pulse Rate 112 H 66 Respiratory Rate 19 H 19 H Respiratory Effort Respiratory Depth Respiratory Pattern Blood Pressure 153/75 H 99/70 Blood Pressure Mean 101 79 Pulse Ox 84 94 99 Oxygen Delivery Method Room Air Nasal Cannula Oxygen Flow Rate (L/min) 4 06/15/24 11:00 06/15/24 13:21 06/15/24 13:21 Temperature 97.7 F L 99.7 F H Temperature Source Oral Temporal Pulse Rate 106 H 92 Respiratory Rate 18 19 H Respiratory Effort Respiratory Depth Respiratory Pattern Blood Pressure 110/70 147/87 H 147/87 H Blood Pressure Mean 83 107 107 Pulse Ox 93 97 Oxygen Delivery Method Nasal Cannula Nasal Cannula Oxygen Flow Rate (L/min) 4 3 06/15/24 15:00 06/15/24 15:00 06/15/24 15:45 Temperature 98.5 F Temperature Source Temporal Pulse Rate 92 Respiratory Rate 19 H Respiratory Effort Respiratory Depth Respiratory Pattern Blood Pressure 144/80 H 144/80 H Blood Pressure Mean 101 101 Pulse Ox 97 85 Oxygen Delivery Method Nasal Cannula Nasal Cannula Oxygen Flow Rate (L/min) 3 3 06/15/24 15:46 06/15/24 16:00 Temperature 99.3 F H Temperature Source Oral Pulse Rate 102 H Respiratory Rate 19 H Respiratory Effort Respiratory Depth Respiratory Pattern Blood Pressure 162/83 H Blood Pressure Mean 109 Pulse Ox 91 91 Oxygen Delivery Method Nasal Cannula Nasal Cannula Oxygen Flow Rate (L/min) 4 4 Weight Weight: 67.3 kg Body Mass Index (BMI) 25.3 Physical Exam Const alert, oriented x3, no apparent distress, average body habitus and well nourished Constitutional Narrative: Elderly, white female, lying in bed, appears comfortable, nontoxic but looks sick, appears fatigued General Appearance: cooperative HEENT normocephalic, head/scalp atraumatic and moist oral mucous membranes HEENT Narrative: Mallampati 2, no thrush, mucous membranes are slightly dry Eyes EOMs intact bilaterally and conjunctivae normal Eyes Narrative: No scleral icterus Resp normal respiratory effort, no retractions and no use of accessory muscles Resp Narrative: Rhonchi and crackles throughout right lung field, left lung field is fairly clear Auscultation: crackles; Negative for rhonchi or wheezes Cardio regular rate, S1 normal heart sound, S2 normal heart sound, no rub, no gallops and no clicks; Negative for no murmurs Cardio Narrative: Irregularly irregular rhythm 4-6 systolic murmur loudest at right upper sternal border GI normal to inspection, nondistended, normoactive bowel sounds, soft to palpation and non-tender Extremity no clubbing, cyanosis or edema Extremity Narrative: 2+ radial and pedal pulses Neuro oriented x3, moves all extremities and no focal motor deficits Speech: speech normal Psych affect normal Psych Narrative: Very pleasant, interacts appropriately Results Lab / Micro Data 06/15/24 09:14 06/15/24 09:14 Labs: Laboratory Results - last 24 hr 06/15/24 09:14: WBC 10.9, RBC 4.58, Hgb 13.7, Hct 42.3, MCV 92.4, MCH 29.9, MCHC 32.4, RDW Std Deviation 50.0 H, RDW Coeff of Arben 14.8 H, Plt Count 259, MPV 9.7, Immature Gran % (Auto) 0.400, Neut % (Auto) 79.4 H, Lymph % (Auto) 11.3 L, Toole % (Auto) 7.6, Eos % (Auto) 0.1, Baso % (Auto) 1.2 H, Absolute Neuts (auto) 8.7 H, Absolute Lymphs (auto) 1.23, Nucleated RBC % 0, Sodium 135 L, Potassium 3.6, Chloride 105, Carbon Dioxide 23.0, Anion Gap 7, BUN 16, Creatinine 1.08 H, Est GFR (MDRD) Af Amer 62, Est GFR (MDRD) Non-Af 51 L, BUN/Creatinine Ratio 14.8, Glucose 163 H, Calcium 9.5, Total Creatine Kinase 86, Troponin I High Sens 32 06/15/24 12:15: Urine Color Yellow, Urine Clarity Sl. Cloudy, Urine pH 6.5, Ur Specific [place] 1.015, Urine Protein 30 H, Urine Glucose (UA) Normal, Urine Ketones 15 H, Urine Occult Blood 50 H, Urine Nitrite Positive H, Urine Bilirubin Negative, Urine Urobilinogen Normal, Ur Leukocyte Esterase 25 H, Urine RBC 0-5 SEEN, Urine WBC 5-10 SEEN, Ur Squamous Epith Cells 0 SEEN, Urine Bacteria 0 SEEN, Urine Mucus 4+ Micro: Microbiology 02/13/25 09:30 Mucosa - Nose SARS-CoV-2, Influenza & RSV (PCR) - Final SARS-CoV-2 (COVID 19 PCR) Imaging Radiology Impression Brain CT 06/15/24 09:04 IMPRESSION: Stable examination. No acute abnormality is seen. Reading Location: [facility] Abdomen/Pelvis CT 06/15/24 09:06 IMPRESSION: Bibasilar atelectasis. Small bilateral pleural effusions. Stable left renal cyst. No acute abnormality is seen. One or more dose reduction techniques were used (e.g., Automated exposure control, adjustment of the mA and/or kV according to patient size, use of iterative reconstruction technique). Reading Location: [facility] Lumbar Spine MRI 06/15/24 10:10 IMPRESSION: 1. No evidence of epidural hemorrhage. 2. [id number] multilevel degenerative changes, as described in detail above. Specific note is made of a focal disc protrusion at the left lateral recess of L4-5 contributing to complete effacement/severe stenosis of the left lateral recess at this level. 3. Levoscoliosis of the lumbar spine as well as a slight anterolisthesis of L3 on L4. [facility]-Ray 06/15/24 14:43 IMPRESSION: Prominent airspace disease is newly seen in the right upper and lower lung zones, concerning for the presence of PNEUMONITIS. No clear evidence of pulmonary edema is seen. No pleural effusion or pneumothorax is noted. The cardiomediastinal silhouette is remarkable for a calcified aorta. No evidence of cardiomegaly. Also, right upper quadrant abdominal surgical clips are again present. Reading Location: [id number] Assessment & Plan Assessment/Plan (1) Acute hypoxemic respiratory failure: (2) Acute left lumbar radiculopathy: (3) COVID-19: (4) Aortic stenosis: PLAN: Plan Acute hypoxic respiratory failure-multifactorial -Suspect related to acute COVID-19 infection, possible superimposed bacterial pneumonia, and HFpEF -Since multifactorial we will hold on remdesivir dosing but give Decadron 6 mg daily x 10 days--> day 1 of 10 -I am not convinced that COVID is the primary etiology for her hypoxemia -Will start antibiotics with azithromycin and ceftriaxone -Check sputum culture -Check strep pneumo and Legionella antigens -Last echocardiogram was on 05/13/2023 showed EF of 56% with a mean aortic valve gradient of 31 mmHg, estimated area of 0.76 cm?, and a mean gradient of 31 mmHg -Lasix 40 IV push twice daily -Will have to be careful with afterload reduction and will need to monitor volume status closely -Sodium and fluid reduced diet -Monitor I's and O's and daily weights closely -Incentive spirometry, Acapella as ordered -Pulmonary toilet -Out of bed and mobility is much as possible -Patient currently on oxygen and is not at baseline--> currently on nasal cannula at 4 L his oxygen saturation on room air was 84% -Wean oxygen as able -Will need ambulatory pulse ox prior to discharge Aortic valve stenosis -Moderate on last echocardiogram as noted above -Repeat echocardiogram -Monitor for afterload reduction closely Persistent atrial fibrillation -Continue home apixaban 5 mg p.o. 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 eKenan if needed but if unable to move while hospitalized may need more acute evaluation -No current concerning signs or symptoms Essential hypertension/hyperlipidemia -Continue home losartan -Continue home Cardizem -Continue home atorvastatin GERD -Continue home famotidine 40 mg p.o. twice daily Glaucoma -Patient has previously been on eyedrops however none of these have been verified at this point -Will restart if verified History of melanoma -Remote DVT prophylaxis -Continue home apixaban CODE STATUS -DNR CCA with no intubation per discussion at the time of admission Charges/Coding Visit Charges Inpatient E&M: 13498 Init Hosp L2
[2024-06-15 17:07] LABS: BNP,B-Type NATRIURETIC PEPTIDE 481.8 pg/mL (0-100)
[2024-06-15] MEDS: Acetaminophen 325 MG Tablet 650 MG PO (17:29)
--- NOTE | 2024-06-15 18:22 | ECHOD_ITS ---
Reason For Study Reason For Study: CHF Procedure This was a 2D Doppler, Color Flow transthoracic echocardiogram. Exam performed portable in patient room. The exam was abbreviated due to the COVID 19 protocol. Left Ventricle Normal LV size. The estimated ejection fraction is 70 %. Unable to assess diastolic dysfunction. No regional wall motion abnormalities noted. Right Ventricle Normal RV size. Normal systolic function. Atria There is moderate biatrial dilatation. No doppler evidence for ASD. Mitral Valve There is moderate mitral annular calcification. There is no mitral valve stenosis. Mild (1+) mitral valve insufficiency. Tricuspid Valve There is no tricuspid stenosis. Moderate (2+) tricuspid valve insufficiency. Pulmonary artery systolic pressure is 40 mmHg. Aortic Valve Trisinus/trileaflet aortic valve. Moderate diffuse aortic valve thickening. Moderate aortic stenosis. Mild (1+) aortic valve insufficiency. Pulmonic Valve There is no pulmonic valvular stenosis. No pulmonic valve insufficiency. Great Vessels Normal aortic root. Pericardium/Pleural No pericardial effusion. MMode/2D Measurements & Calculations LVIDd: 4.2 cm IVSd: 1.1 cm LVOT diam: 2.0 cm LVIDs: 2.2 cm LVPWd: 1.1 cm LVOT area: 3.2 cm2 RVDd: 3.9 cm FS: 48.3 % LA dimension: 4.4 cm LAV(MOD-bp): 83.6 ml LA A4 area: 25.0 cm2 LAV(MOD-bp) Indexed: 50.2 ml/m2 LAV(MOD-sp2): 82.4 ml LAV(MOD-sp4): 83.6 ml RA A4 area: 21.7 cm2 Doppler Measurements & Calculations MV E max lizett: 105.6 cm/sec MV V2 max: 138.9 cm/sec Ao V2 max: 340.1 cm/sec MV max P.7 mmHg Ao max P.4 mmHg MV V2 mean: 71.3 cm/sec Ao V2 mean: 240.2 cm/sec MV mean P.5 mmHg Ao mean P.9 mmHg MV V2 VTI: 26.5 cm Ao V2 VTI: 59.6 cm MVA(VTI): 2.2 cm2 AV (velocity ratio): 0.30 BRIDGET(I,D): 0.98 cm2 BRIDGET(V,D): 0.87 cm2 AI max lizett: 333.7 cm/sec LV V1 max: 91.9 cm/sec SV(LVOT): 58.1 ml AI max P.6 mmHg LV V1 max P.5 mmHg LV V1 mean P.8 mmHg AI dec slope: 219.6 cm/sec2 LV V1 mean: 60.5 cm/sec AI P1/2t: 445.1 msec LV V1 VTI: 18.0 cm TR max lizett: 302.8 cm/sec TR max P.7 mmHg ECHO/Echo Complete Interpretation Summary The estimated ejection fraction is 70 %. Unable to assess diastolic dysfunction. There is moderate biatrial dilatation. Mild (1+) mitral valve insufficiency. Moderate aortic stenosis. Mild (1+) aortic valve insufficiency. Ordering Physician: Erica Anand Referring Physician: Frederic Soares Performed By: Darshan Pederson RCS
[2024-06-15] MEDS: Furosemide 40 MG/4 ML Vial IV (19:02)
[2024-06-15] MEDS: dexAMETHasone 4 MG Tablet 6 MG PO (19:02)
[2024-06-15] MEDS: Ceftriaxone 2 GM in 0.9% Normal Saline (50mL MB+) 50 ML IV (19:02)
[2024-06-15] MEDS: Azithromycin 500 MG in 0.9% Normal Saline (250mL Bag) 250 ML 255 MG IV (19:57)
[2024-06-15] MEDS: Ipratropium/Albuterol Sulfate 3 ML AMPUL.NEB INHALATION (21:09)
[2024-06-15] MEDS: BRIMONIDINE 0.2% 5ML BOTTLE 2 DRP EACH EYE (22:48)
[2024-06-15] MEDS: Acetaminophen 500 MG Tablet 1000 MG PO (22:49)
[2024-06-15] MEDS: Atorvastatin Calcium 10 MG Tablet PO (22:50)
[2024-06-15] MEDS: Gabapentin 300 MG Capsule PO (22:50)
[2024-06-15] MEDS: dilTIAZem CD 120 MG Capsule PO (22:50)
[2024-06-15] MEDS: guaiFENesin 1,200 MG Tablet 1200 MG PO (22:50)
[2024-06-15] MEDS: Potassium Chloride Oral Tablet 20 MEQ PO (22:50)
[2024-06-15] MEDS: APIXABAN 5 MG TABLET PO (22:50)
[2024-06-15] MEDS: Calcium Carbonate 500 MG Tablet 1000 MG PO (22:51)
[2024-06-16] VITALS (14 sets, daily range): BP systolic 101–138; BP diastolic 66–87; PULSE 81–111; RESP 16–20; TEMP 36.4–37.1; O2SAT 86–100; BMI 23.4
[2024-06-16] MEDS: Acetaminophen 500 MG Tablet 1000 MG PO ×3 (05:13→21:52)
[2024-06-16 06:43] LABS: Absolute Lymphocyte Count 0.68 X10^3/uL (0.83-4.51); Absolute Neutrophil Count 10.2 X10^3/uL (2.0-7.7); Basophil# 0.03 X10^3/uL; Basophil% 0.3 % (0-1); Eosinophil# 0.17 X10^3/uL; Eosinophils% 1.5 % (0-5); Hematocrit 42.9 % (37-47); Lymphocyte # 0.68 X10^3/ul (0.83-4.51); Lymphocyte % 5.9 % (19-41); Mean Corp Hgb Conc 32.6 g/dL (32-36); Mean Corpuscular Hgb 29.8 pg (27.0-32.0); Mean Corpuscular Volume 91.3 fL (81-99); Mean Platelet Vol. 10.1 fl (6.2-12.0); Monocyte# 0.47 X10^3/uL; Monocyte% 4.1 % (0-10); NRBC Flagged by Analyzer 0 % (0-5); Neutrophil # 10.15 X10^3/uL (2.7-7.7); Neutrophil % 87.8 % (47-70); Platelet Count 211 K/mm3 (150-450); RBC Distribution Width CV 14.8 % (11.6-14.6); RBC Distribution Width SD 49.7 fl (35.1-43.9); White Blood Count 11.6 K/mm3 (4.4-11.0)
[2024-06-16 07:05] LABS: ALB/GLOB Ratio 0.7 RATIO (0.9-2.4); AST(SGOT) 20 U/L (15-37); Alanine Aminotransfer ALT/SGPT 26 U/L (13-56); Albumin, Serum 2.9 g/dL (3.2-5.0); Alkaline Phosphatase 116 U/L (45-117); Anion Gap 9 (5-15); BUN 16 mg/dL (7-18); BUN/Creat Ratio 18.6 RATIO (10-20); Chloride 109 mmol/L (98-107); Creatinine, Serum 0.86 mg/dL (0.55-1.02); EST Glomerular Filtration Rate 67 mL/min (>60); Est Glom Filt Rate - Afr Amer 81 mL/min (>60); Globulin 3.9 g/dL (2.2-4.2); Glucose 156 mg/dL (74-106); Phosphorus 2.7 mg/dL (2.5-4.9); Potassium 3.4 mmol/L (3.5-5.1); Protein, Total 6.8 g/dL (6.4-8.2); Sodium Level 140 mmol/L (136-145)
[2024-06-16] MEDS: Ipratropium/Albuterol Sulfate 3 ML AMPUL.NEB INHALATION ×2 (08:07→20:04)
--- NOTE | 2024-06-16 08:44 | PN.HOSP_ITS ---
Reason for Visit Reason for Visit: Diagnoses Nonrheumatic aortic (valve) stenosis (06/15/24) Acute respiratory failure with hypoxia (06/15/24) Radiculopathy, lumbar region (06/15/24) COVID-19 (06/15/24) Subjective Subjective Breathing well. Oxygen requirements decreased. Complains of pain in Left groin. Objective Data Objective Data Vital Signs: Vital Signs Temp Pulse Resp BP Pulse Ox O2 Del Method O2 Flow Rate 36.4 C L 88 20 H 129/74 H 97 High Flow 6 06/16/24 05:02 06/16/24 05:02 06/16/24 05:02 06/16/24 05:02 06/16/24 05:02 06/16/24 05:02 06/16/24 05:02 Oxygen Flow Rate (L/min) 6 Oxygen Delivery Method High Flow Weight: 62.3 kg Body Mass Index (BMI) 23.4 Intake & Output: Intake and Output for Last 24 Hours 06/14/24 06/15/24 06/16/24 23:59 23:59 23:59 Intake Total 1305 / 1305 Output Total 300 / 300 Balance 1305 / 1005 -300 / -300 Lab / Micro Data 06/16/24 05:40 06/16/24 05:40 Labs: Laboratory Results - last 24 hr 06/15/24 09:14: WBC 10.9, RBC 4.58, Hgb 13.7, Hct 42.3, MCV 92.4, MCH 29.9, MCHC 32.4, RDW Std Deviation 50.0 H, RDW Coeff of Arben 14.8 H, Plt Count 259, MPV 9.7, Immature Gran % (Auto) 0.400, Neut % (Auto) 79.4 H, Lymph % (Auto) 11.3 L, [place] % (Auto) 7.6, Eos % (Auto) 0.1, Baso % (Auto) 1.2 H, Absolute Neuts (auto) 8.7 H , Absolute Lymphs (auto) 1.23, Nucleated RBC % 0, Sodium 135 L, Potassium 3.6, Chloride 105, Carbon Dioxide 23.0, Anion Gap 7, BUN 16, Creatinine 1.08 H, Est GFR (MDRD) Af Amer 62, Est GFR (MDRD) Non-Af 51 L, BUN/Creatinine Ratio 14.8, G lucose 163 H, Calcium 9.5, Total Creatine Kinase 86, Troponin I High Sens 32, B- Natriuretic Peptide 481.8 H 06/15/24 12:15: Urine Color Yellow, Urine Clarity Sl. Cloudy, Urine pH 6.5, Ur Specific Allen 1.015, Urine Protein 30 H, Urine Glucose (UA) Normal, Urine Ketones 15 H, Urine Occult Blood 50 H, Urine Nitrite Positive H, Urine Bilirubin Negative, Urine Urobilinogen Normal, Ur Leukocyte Esterase 25 H, Urine RBC 0-5 SEEN, Urine WBC 5-10 SEEN, Ur Squamous Epith Cells 0 SEEN, Urine Bacteria 0 SEEN, Urine Mucus 4+ 06/16/24 05:40: WBC 11.6 H, RBC 4.70, Hgb 14.0, Hct 42.9, MCV 91.3, MCH 29.8, MCHC 32.6, RDW Std Deviation 49.7 H, RDW Coeff of Arben 14.8 H, Plt Count 211, MPV 10.1, Immature Gran % (Auto) 0.400, Neut % (Auto) 87.8 H, Lymph % (Auto) 5.9 L, [place] % (Auto) 4.1, Eos % (Auto) 1.5, Baso % (Auto) 0.3, Absolute Neuts (auto) 10.2 H, Absolute Lymphs (auto) 0.68 L, Nucleated RBC % 0, Sodium 140, Potassium 3.4 L, Chloride 109 H, Carbon Dioxide 23.0, Anion Gap 9, BUN 16, Creatinine 0.86, Estim Creat Clear Calc 41.30, Est GFR (MDRD) Af Amer 81, Est GFR (MDRD) Non-Af 67, BUN/Creatinine Ratio 18.6, Glucose 156 H, Calcium 9.0, Phosphorus 2.7, Magnesium 2.0, Total Bilirubin 0.60, AST 20, ALT 26, Alkaline Phosphatase 116, Total Protein 6.8, Albumin 2.9 L, Globulin 3.9, Albumin/Globulin Ratio 0.7 L, TSH 1.840 Micro: Microbiology 06/15/24 12:15 Urine, Random Legionella Antigen - Final 06/15/24 12:15 Urine, Random Streptococcus pneumoniae Antigen (M - Final 06/15/24 09:30 Mucosa - Nose SARS-CoV-2, Influenza & RSV (PCR) - Final SARS-CoV-2 (COVID 19 PCR) Radiography Diagnostic Testing: Radiology Impression Brain CT 06/15/24 09:04 IMPRESSION: Stable examination. No acute abnormality is seen. Reading Location: [facility] Abdomen/Pelvis CT 06/15/24 09:06 IMPRESSION: Bibasilar atelectasis. Small bilateral pleural effusions. Stable left renal cyst. No acute abnormality is seen. One or more dose reduction techniques were used (e.g., Automated exposure control, adjustment of the mA and/or kV according to patient size, use of iterative reconstruction technique). Reading Location: [facility] Lumbar Spine MRI 06/15/24 10:10 IMPRESSION: 1. No evidence of epidural hemorrhage. 2. Ekbwyukh-nf-fwwatz multilevel degenerative changes, as described in detail above. Specific note is made of a focal disc protrusion at the left lateral recess of L4-5 contributing to complete effacement/severe stenosis of the left lateral recess at this level. 3. Levoscoliosis of the lumbar spine as well as a slight anterolisthesis of L3 on L4. Reading Location: [facility] Chest X-Ray 06/15/24 14:43 IMPRESSION: Prominent airspace disease is newly seen in the right upper and lower lung zones, concerning for the presence of PNEUMONITIS. No clear evidence of pulmonary edema is seen. No pleural effusion or pneumothorax is noted. The cardiomediastinal silhouette is remarkable for a calcified aorta. No evidence of cardiomegaly. Also, right upper quadrant abdominal surgical clips are again present. Reading Location: [id number] Physical Exam Const alert and no apparent distress HEENT HEENT Narrative: up in chair. No respiratory distress. no conversational dyspnea. Resp normal respiratory effort, no retractions, no use of accessory muscles and clear to auscultation bilaterally Cardio regular rate, regular rhythm, S1 normal heart sound and S2 normal heart sound GI normal to inspection, nondistended, normoactive bowel sounds, soft to palpation, non-tender and non-distended Extremity normal to inspection and full ROM Neuro Sensorium / Orientation: awake and alert Assessment & Plan Assessment/Plan (1) Acute hypoxemic respiratory failure: PLAN: Acute on chronic 2/2 COVID 19 with superimposed bacterial pneumonia +/- CHF exacerbation on dexamethasone, IV furosemide, CTX and azithromycin pulmonary toilet Follow up echocardiogram. PLAN: Plan L4-5 radiculopathy * follow up with spine surgery as outpt persistent afib: anticoagulated with apixaban. diltiazem. VTE prophylaxis: not indicated as already anticoagulated. Charges/Coding Visit Charges Inpatient E&M: 59475 Subs Hosp L2
[2024-06-16] MEDS: Furosemide 40 MG/4 ML Vial IV ×2 (09:10→17:19)
[2024-06-16] MEDS: Ceftriaxone 2 GM in 0.9% Normal Saline (50mL MB+) 50 ML IV (09:12)
[2024-06-16] MEDS: Losartan Potassium 25 MG Tablet PO (09:16)
[2024-06-16] MEDS: BRIMONIDINE 0.2% 5ML BOTTLE 2 DRP EACH EYE ×2 (09:16→21:51)
[2024-06-16] MEDS: dilTIAZem CD 120 MG Capsule PO ×2 (09:16→21:51)
[2024-06-16] MEDS: dexAMETHasone 4 MG Tablet 6 MG PO (09:17)
[2024-06-16] MEDS: Potassium Chloride Oral Tablet 20 MEQ PO ×2 (09:17→21:52)
[2024-06-16] MEDS: APIXABAN 5 MG TABLET PO ×2 (09:17→21:53)
[2024-06-16] MEDS: Famotidine 20 MG Tablet 40 MG PO (09:18)
[2024-06-16] MEDS: guaiFENesin 1,200 MG Tablet 1200 MG PO ×2 (09:18→21:52)
[2024-06-16] MEDS: 0.9% Saline Lock 10 ML Syringe IV ×2 (09:22→17:19)
[2024-06-16] MEDS: BENZOCAINE/MENTHOL 1 LOZENGE MUCOUS MEM (09:22)
[2024-06-16] MEDS: Azithromycin 500 MG in 0.9% Normal Saline (250mL Bag) 250 ML 255 MG IV (10:28)
--- NOTE | 2024-06-16 11:27 | PCM.PN.HOSP ---
Reason for Visit Reason for Visit: Diagnoses Nonrheumatic aortic (valve) stenosis (06/15/24) Acute respiratory failure with hypoxia (06/15/24) Radiculopathy, lumbar region (06/15/24) COVID-19 (06/15/24) Subjective Subjective Breathing better. Oxygen requirements decreased today. Objective Data Objective Data Vital Signs: Vital Signs Temp Pulse Resp BP Pulse Ox O2 Del Method O2 Flow Rate 36.5 C L 83 16 101/66 97 Nasal Cannula 2 06/16/24 11:06/16/24 11:06/16/24 11:06/16/24 11:06/16/24 11:06/16/24 11:06/16/24 11: Oxygen Flow Rate (L/min) 2 Oxygen Delivery Method Nasal Cannula Weight: 62.3 kg Body Mass Index (BMI) 23.4 Intake & Output: Intake and Output for Last 24 Hours 06/14/24 06/15/24 06/16/24 23:59 23:59 23:59 Intake Total 1305 / 1305 50 / 50 Output Total 300 / 300 Balance 1305 / 1005 -250 / -250 Lab / Micro Data 06/16/24 05:40 06/16/24 05:40 Labs: Laboratory Results - last 24 hr 06/15/24 09:14: B-Natriuretic Peptide 481.8 H 06/15/24 12:15: Urine Color Yellow, Urine Clarity Sl. Cloudy, Urine pH 6.5, Ur Specific [place] 1.015, Urine Protein 30 H, Urine Glucose (UA) Normal, Urine Ketones 15 H, Urine Occult Blood 50 H, Urine Nitrite Positive H, Urine Bilirubin Negative, Urine Urobilinogen Normal, Ur Leukocyte Esterase 25 H, Urine RBC 0-5 SEEN, Urine WBC 5-10 SEEN, Ur Squamous Epith Cells 0 SEEN, Urine Bacteria 0 SEEN, Urine Mucus 4+ 06/16/24 05:40: WBC 11.6 H, RBC 4.70, Hgb 14.0, Hct 42.9, MCV 91.3, MCH 29.8, MCHC 32.6, RDW Std Deviation 49.7 H, RDW Coeff of Arben 14.8 H, Plt Count 211, MPV 10.1, Immature Gran % (Auto) 0.400, Neut % (Auto) 87.8 H, Lymph % (Auto) 5.9 L, [place] % (Auto) 4.1, Eos % (Auto) 1.5, Baso % (Auto) 0.3, Absolute Neuts (auto) 10.2 H, Absolute Lymphs (auto) 0.68 L, Nucleated RBC % 0, Sodium 140, Potassium 3.4 L, Chloride 109 H, Carbon Dioxide 23.0, Anion Gap 9, BUN 16, Creatinine 0.86, Estim Creat Clear Calc 41.30, Est GFR (MDRD) Af Amer 81, Est GFR (MDRD) Non-Af 67, BUN/Creatinine Ratio 18.6, Glucose 156 H, Calcium 9.0, Phosphorus 2.7, Magnesium 2.0, Total Bilirubin 0.60, AST 20, ALT 26, Alkaline Phosphatase 116, Total Protein 6.8, Albumin 2.9 L, Globulin 3.9, Albumin/Globulin Ratio 0.7 L, TSH 1.840 Micro: Microbiology 06/15/24 12:15 Urine, Random Legionella Antigen - Final 06/15/24 12:15 Urine, Random Streptococcus pneumoniae Antigen (M - Final 06/15/24 09:30 Mucosa - Nose SARS-CoV-2, Influenza & RSV (PCR) - Final SARS-CoV-2 (COVID 19 PCR) Radiography Diagnostic Testing: Radiology Impression Lumbar Spine MRI 06/15/24 10:10 IMPRESSION: 1. No evidence of epidural hemorrhage. 2. Yrwmensf-ds-zcvzon multilevel degenerative changes, as described in detail above. Specific note is made of a focal disc protrusion at the left lateral recess of L4-5 contributing to complete effacement/severe stenosis of the left lateral recess at this level. 3. Levoscoliosis of the lumbar spine as well as a slight anterolisthesis of L3 on L4. Reading Location: [facility] Chest X-Ray 06/15/24 14:43 IMPRESSION: Prominent airspace disease is newly seen in the right upper and lower lung zones, concerning for the presence of PNEUMONITIS. No clear evidence of pulmonary edema is seen. No pleural effusion or pneumothorax is noted. The cardiomediastinal silhouette is remarkable for a calcified aorta. No evidence of cardiomegaly. Also, right upper quadrant abdominal surgical clips are again present. Reading Location: [address] Physical Exam Const alert and no apparent distress HEENT head/scalp atraumatic and moist oral mucous membranes Resp normal respiratory effort, no retractions, no use of accessory muscles and clear to auscultation bilaterally Cardio regular rate, regular rhythm, S1 normal heart sound and S2 normal heart sound GI normal to inspection, nondistended, normoactive bowel sounds and soft to palpation
--- NOTE | 2024-06-16 12:40 | CASEMGMT ---
LORENA DUNLAP Assessment Face to Face with patient for initial transition planning/care coordination assessment. LORENA DUNLAP introduced self and role at [facility], pt voices understanding. Pt is A&Ox4 and is resting comfortably in the chair and is calm. Care providers, pharmacy, and demographics verified. Admitting dx: Acute RF, COVID LACE Strata: 3 PCP: Frederic Soares Specialists: ERIK Preferred Pharmacy: [facility] Insurance: MCR A/B, AETNA Prescription Benefit: Yes LNOK: James Hurley (Son), Geno Hurley (DIL) Living Arrangements: Pt lives with her son in a single story home with a basement. Pt states that she resides in the basement aspect of the home and denies issues with the steps. ADLs/IADLs: Ind Transportation: Pt states that she stopped driving x2 weeks ago. Pt states that her family and friends drive her and denies concerns DME: [employer], [employer], [employer]. Pt may qualify for home oxygen use. A verbal list of local in-network DME companies were provided to the pt at this time. Pt prefers [facility] HHC/SNF: Denies history or needs. Pt states that she is active with OP Pt through [facility]. Pt denies needing an updated Rx for this. Pt?s goal: Home Plan: Home with pt son with the continuation of OP therapy. Follow for potential new oxygen needs. Pt states that she feels safe with this plan and denies further needs or concerns. This LORENA DUNLAP talked to PT and OT who state that the pt did well with them and that they are safe with the pt returning home at the time of DC. [employer] CM updated. Bob Worthington RN, CM
[2024-06-16] MEDS: Atorvastatin Calcium 10 MG Tablet PO (21:51)
[2024-06-16] MEDS: Gabapentin 300 MG Capsule PO (21:52)
[2024-06-17] VITALS (12 sets, daily range): BP systolic 77–124; BP diastolic 45–87; PULSE 56–86; RESP 14–18; TEMP 36.3–36.7; O2SAT 92–97; BMI 25.3
[2024-06-17] MEDS: 0.9% Saline Lock 10 ML Syringe IV ×3 (05:03→10:12)
[2024-06-17] MEDS: Acetaminophen 500 MG Tablet 1000 MG PO ×3 (05:03→20:54)
[2024-06-17 06:55] LABS: Absolute Lymphocyte Count 0.66 X10^3/uL (0.83-4.51); Absolute Neutrophil Count 9.7 X10^3/uL (2.0-7.7); Basophil# 0.02 X10^3/uL; Basophil% 0.2 % (0-1); Hematocrit 36.8 % (37-47); Hemoglobin 11.9 g/dL (12.0-15.0); Lymphocyte # 0.66 X10^3/ul (0.83-4.51); Mean Corp Hgb Conc 32.3 g/dL (32-36); Mean Corpuscular Hgb 29.8 pg (27.0-32.0); Mean Platelet Vol. 9.9 fl (6.2-12.0); Monocyte# 0.55 X10^3/uL; NRBC Flagged by Analyzer 0 % (0-5); Neutrophil # 9.74 X10^3/uL (2.7-7.7); Neutrophil % 88.3 % (47-70); Platelet Count 196 K/mm3 (150-450); RBC Distribution Width CV 15.1 % (11.6-14.6); RBC Distribution Width SD 51.2 fl (35.1-43.9)
[2024-06-17 07:40] LABS: Anion Gap 7 (5-15); BUN 26 mg/dL (7-18); BUN/Creat Ratio 26.9 RATIO (10-20); Calcium,Total 8.3 mg/dL (8.5-10.1); Chloride 108 mmol/L (98-107); Creatinine, Serum 0.97 mg/dL (0.55-1.02); EST Glomerular Filtration Rate 58 mL/min (>60); Est Glom Filt Rate - Afr Amer 70 mL/min (>60); Estimated Creatinine Clearance 40.02 ml/min; Glucose 133 mg/dL (74-106); Potassium 3.8 mmol/L (3.5-5.1); Sodium Level 138 mmol/L (136-145)
--- NOTE | 2024-06-17 08:50 | PN.HOSP_ITS ---
Reason for Visit Reason for Visit: Diagnoses Nonrheumatic aortic (valve) stenosis (06/15/24) Acute respiratory failure with hypoxia (06/15/24) Radiculopathy, lumbar region (06/15/24) COVID-19 (06/15/24) Subjective Subjective Complains of abdominal pain. Objective Data Objective Data Vital Signs: Vital Signs Temp Pulse Resp BP Pulse Ox O2 Del Method O2 Flow Rate 36.3 C L 73 16 114/71 93 Room Air 2 06/17/24 05:00 06/17/24 05:00 06/17/24 05:00 06/17/24 05:00 06/17/24 07:20 06/17/24 07:20 06/16/24 11:25 Oxygen Flow Rate (L/min) 2 Oxygen Delivery Method Room Air Weight: 67.4 kg Body Mass Index (BMI) 25.3 Intake & Output: Intake and Output for Last 24 Hours 06/15/24 06/16/24 06/17/24 23:59 23:59 23:59 Intake Total 1305 / 1305 305 / 305 240 / 240 Output Total 300 / 600 700 / 700 Balance 1305 / 1005 5 / -295 -460 / -460 Lab / Micro Data 06/17/24 06:40 06/17/24 06:40 Labs: Laboratory Results - last 24 hr 06/17/24 06:40: WBC 11.0, RBC 4.00 L, Hgb 11.9 L, Hct 36.8 L, MCV 92.0, MCH 29.8, MCHC 32.3, RDW Std Deviation 51.2 H, RDW Coeff of Arben 15.1 H, Plt Count 196, MPV 9.9, Immature Gran % (Auto) 0.500, Neut % (Auto) 88.3 H, Lymph % (Auto) 6.0 L, [place] % (Auto) 5.0, Eos % (Auto) 0.0, Baso % (Auto) 0.2, Absolute Neuts (auto) 9.7 H, Absolute Lymphs (auto) 0.66 L, Nucleated RBC % 0, Sodium 138, Potassium 3.8, Chloride 108 H, Carbon Dioxide 22.0, Anion Gap 7, BUN 26 H, Creatinine 0.97, Estim Creat Clear Calc 40.02, Est GFR (MDRD) Af Amer 70, Est GFR (MDRD) Non-Af 58 L, BUN/Creatinine Ratio 26.9 H, Glucose 133 H, Calcium 8.3 L Micro: Microbiology 06/15/24 12:15 Urine, Random Legionella Antigen - Final 06/15/24 12:15 Urine, Random Streptococcus pneumoniae Antigen (M - Final 06/15/24 09:30 Mucosa - Nose SARS-CoV-2, Influenza & RSV (PCR) - Final SARS-CoV-2 (COVID 19 PCR) Radiography Diagnostic Testing: Radiology Impression Echocardiogram 06/15/24 18:22 Interpretation Summary The estimated ejection fraction is 70 %. Unable to assess diastolic dysfunction. There is moderate biatrial dilatation. Mild (1+) mitral valve insufficiency. Moderate aortic stenosis. Mild (1+) aortic valve insufficiency. Ordering Physician: Erica Anand Referring Physician: Frederic Soares Performed By: Darshan Pederson RCS Physical Exam Const alert and no apparent distress HEENT head/scalp atraumatic and moist oral mucous membranes Resp normal respiratory effort, no retractions, no use of accessory muscles and clear to auscultation bilaterally Cardio regular rate, regular rhythm, S1 normal heart sound and S2 normal heart sound GI normal to inspection, nondistended, normoactive bowel sounds GI Narrative: TTP in LUQ. Neuro Sensorium / Orientation: awake and alert Assessment & Plan Assessment/Plan (1) Acute hypoxemic respiratory failure: PLAN: Acute on chronic 2/2 COVID 19 with superimposed bacterial pneumonia +/- CHF exacerbation on dexamethasone, IV furosemide, CTX and azithromycin pulmonary toilet Echocardiogram shows an EF 70% +1 [place], +1 AI PLAN: Plan Abdominal pain * unclear etiology. Exam is unremarkable. Check abdominal xray. L4-5 radiculopathy * follow up with spine surgery as outpt persistent afib: anticoagulated with apixaban. diltiazem. VTE prophylaxis: not indicated as already anticoagulated. Charges/Coding Visit Charges Inpatient E&M: 49644 Subs Hosp L2
[2024-06-17] MEDS: Furosemide 40 MG/4 ML Vial IV (09:15)
[2024-06-17] MEDS: Ceftriaxone 2 GM in 0.9% Normal Saline (50mL MB+) 50 ML IV (09:16)
[2024-06-17] MEDS: Potassium Chloride Oral Tablet 20 MEQ PO ×2 (09:19→20:53)
[2024-06-17] MEDS: BRIMONIDINE 0.2% 5ML BOTTLE 2 DRP EACH EYE ×2 (09:19→20:52)
[2024-06-17] MEDS: APIXABAN 5 MG TABLET PO ×2 (09:20→20:53)
[2024-06-17] MEDS: Losartan Potassium 25 MG Tablet PO (09:20)
[2024-06-17] MEDS: Famotidine 20 MG Tablet 40 MG PO (09:20)
[2024-06-17] MEDS: dilTIAZem CD 120 MG Capsule PO ×2 (09:20→20:52)
[2024-06-17] MEDS: dexAMETHasone 4 MG Tablet 6 MG PO (09:20)
[2024-06-17] MEDS: guaiFENesin 1,200 MG Tablet 1200 MG PO ×2 (09:20→20:54)
[2024-06-17] MEDS: BENZOCAINE/MENTHOL 1 LOZENGE MUCOUS MEM (10:12)
[2024-06-17] MEDS: traMADol 50 MG Tablet PO (10:12)
[2024-06-17] MEDS: Azithromycin 500 MG in 0.9% Normal Saline (250mL Bag) 250 ML 255 MG IV (10:18)
[2024-06-17] MEDS: 0.9% Normal Saline (1000mL) 1,000 ML 150 ML IV (13:34)
--- NOTE | 2024-06-17 16:02 | RAD_ITS ---
PROCEDURE: ABDOMEN SINGLE VIEW (PORTABLE) REASON FOR EXAM: Abdominal pain TECHNIQUE: Two frontal views abdomen/pelvis. COMPARISON: None FINDINGS: Bowel gas pattern is normal. No evidence of bowel obstruction. Atherosclerotic calcifications are present in the abdominal aorta. There are surgical clips in the right upper quadrant of the abdomen. Multilevel degenerative changes are present in the visualized spine with a levoscoliosis present. RAD/Abdomen Single View (Portable) IMPRESSION: No acute abnormality. Reading Location: [facility]
[2024-06-17] MEDS: Ipratropium/Albuterol Sulfate 3 ML AMPUL.NEB INHALATION (20:06)
[2024-06-17] MEDS: Gabapentin 300 MG Capsule PO (20:54)
[2024-06-17] MEDS: Atorvastatin Calcium 10 MG Tablet PO (20:54)
[2024-06-18 03:00] VITALS: BP 104/67; PULSE 53; RESP 16; TEMP 36.3; O2SAT 92
[2024-06-18 04:01] VITALS: BMI 25.2
[2024-06-18] MEDS: Acetaminophen 500 MG Tablet 1000 MG PO (05:39)
[2024-06-18] MEDS: Ipratropium/Albuterol Sulfate 3 ML AMPUL.NEB INHALATION ×2 (07:14→13:33)
[2024-06-18 07:15] VITALS: PULSE 75; RESP 18; O2SAT 94
[2024-06-18 08:40] VITALS: BP 121/60; PULSE 75; RESP 18; TEMP 36.4; O2SAT 100
[2024-06-18] MEDS: dexAMETHasone 4 MG Tablet 6 MG PO (08:43)
[2024-06-18] MEDS: guaiFENesin 1,200 MG Tablet 1200 MG PO (08:43)
[2024-06-18] MEDS: APIXABAN 5 MG TABLET PO (08:43)
[2024-06-18] MEDS: dilTIAZem CD 120 MG Capsule PO (08:44)
[2024-06-18] MEDS: Losartan Potassium 25 MG Tablet PO (08:44)
[2024-06-18] MEDS: BENZOCAINE/MENTHOL 1 LOZENGE MUCOUS MEM (08:44)
[2024-06-18] MEDS: traMADol 50 MG Tablet PO (08:44)
[2024-06-18] MEDS: Famotidine 20 MG Tablet 40 MG PO (08:44)
[2024-06-18] MEDS: Furosemide 40 MG/4 ML Vial IV (08:45)
[2024-06-18] MEDS: Potassium Chloride Oral Tablet 20 MEQ PO (08:45)
[2024-06-18] MEDS: 0.9% Saline Lock 10 ML Syringe IV (08:45)
[2024-06-18] MEDS: Azithromycin 500 MG in 0.9% Normal Saline (250mL Bag) 250 ML 255 MG IV (08:48)
[2024-06-18 08:50] VITALS: O2SAT 93
[2024-06-18] MEDS: BRIMONIDINE 0.2% 5ML BOTTLE 2 DRP EACH EYE (08:57)
--- NOTE | 2024-06-18 09:13 | PN.HOSP_ITS ---
Reason for Visit Reason for Visit: Diagnoses Nonrheumatic aortic (valve) stenosis (06/15/24) Acute respiratory failure with hypoxia (06/15/24) Radiculopathy, lumbar region (06/15/24) COVID-19 (06/15/24) Subjective Subjective No longer complaining of abdominal pain, stating actually chest pain. Left sided chest pain, into her back; worse with deep inspiration. Objective Data Objective Data Vital Signs: Vital Signs Temp Pulse Resp BP Pulse Ox O2 Del Method O2 Flow Rate 36.4 C L 75 18 121/60 H 100 Nasal Cannula 2 06/18/24 08:40 06/18/24 08:40 06/18/24 08:40 06/18/24 08:40 06/18/24 08:40 06/18/24 08:40 06/18/24 07:15 Oxygen Flow Rate (L/min) 2 Oxygen Delivery Method Nasal Cannula Weight: 66.9 kg Body Mass Index (BMI) 25.2 Intake & Output: Intake and Output for Last 24 Hours 06/16/24 06/17/24 06/18/24 23:59 23:59 23:59 Intake Total 305 / 305 1545 / 1665 180 / 180 Output Total 300 / 600 975 / 975 Balance 5 / -295 570 / 690 180 / 180 Lab / Micro Data 06/17/24 06:40 06/17/24 06:40 Micro: Microbiology 06/15/24 12:15 Urine, Random Legionella Antigen - Final 06/15/24 12:15 Urine, Random Streptococcus pneumoniae Antigen (M - Final 06/15/24 09:30 Mucosa - Nose SARS-CoV-2, Influenza & RSV (PCR) - Final SARS-CoV-2 (COVID 19 PCR) Radiography Diagnostic Testing: Radiology Impression KUB X-Ray 06/17/24 16:02 IMPRESSION: No acute abnormality. Reading Location: [facility] Physical Exam Narrative reproducible lower chest and back pain. Const alert and no apparent distress HEENT head/scalp atraumatic and moist oral mucous membranes Resp normal respiratory effort, no retractions and no use of accessory muscles Cardio regular rate, regular rhythm, S1 normal heart sound and S2 normal heart sound GI normal to inspection, nondistended, normoactive bowel sounds, soft to palpation, non-tender and non-distended Assessment & Plan Assessment/Plan (1) Acute hypoxemic respiratory failure: PLAN: Acute on chronic 2/2 COVID 19 with superimposed bacterial pneumonia Doubt CHF exacerbation. Echocardiogram shows an EF 70% +1 [place], +1 AI DC home with dexamethasone, discharge with Augmentin PLAN: Plan Chest pain 2/2 costochondritis. Reassurance provided. L4-5 radiculopathy * follow up with spine surgery as outpt persistent afib: anticoagulated with apixaban. diltiazem. VTE prophylaxis: not indicated as already anticoagulated. Charges/Coding Visit Charges Inpatient E&M: 21924 Subs Hosp L2
[2024-06-18] MEDS: Ceftriaxone 2 GM in 0.9% Normal Saline (50mL MB+) 50 ML IV (10:13)
--- NOTE | 2024-06-18 12:54 | DS.PCM_ITS ---
Providers Date of Admission: 06/15/24 Primary Care Physician: Dr. Bjorn Soares MD Reason For Visit: ACUTE HYPONIC RESPIRATORY FAILURE-MULTIFACTORIAL Diagnosis Discharge Diagnosis (1) Acute hypoxemic respiratory failure: Status: Acute Code(s): J96.01 - Acute respiratory failure with hypoxia Plan: Acute on chronic 2/2 COVID 19 with superimposed bacterial pneumonia Doubt CHF exacerbation. Echocardiogram shows an EF 70% +1 [place], +1 AI DC home with dexamethasone, discharge with Augmentin Plan Chest pain 2/2 costochondritis. Reassurance provided. L4-5 radiculopathy * follow up with spine surgery as outpt persistent afib: anticoagulated with apixaban. diltiazem. VTE prophylaxis: not indicated as already anticoagulated. Medications at Discharge Home Medications famotidine 40 mg tablet 40 mg PO BID 05/28/17 atorvastatin 10 mg tablet 10 mg PO QHS cholesterol 10/05/19 dorzolamide 22.3 mg-timolol 6.8 mg/mL eye drops 1 drp EACH EYE BID eye heal 12/22/21 latanoprost 0.005 % eye drops 1 drp EACH EYE DAILY eye health 12/22/21 brimonidine 0.2 % eye drops 2 drp EACH EYE BID 11/10/22 cholecalciferol (vitamin D3) 25 mcg (1,000 unit) capsule 2,000 unit PO DAILY supplement 11/10/22 cyanocobalamin (vitamin B-12) 1,000 mcg tablet 2,000 mcg PO DAILY supplement 11/10/22 melatonin 5 mg tablet 5 mg PO HS PRN sleep 11/10/22 Handicap placard #1 ea 04/12/23 vitamins A,C,I-tdha-xlcyqm 4,296 mcg-226 mg-90 mg capsule 1 cap PO BID eye health 04/12/23 potassium chloride 20 mEq tablet,extended release 20 meq PO BID #90 tabs 06/01/23 diltiazem HCl 120 mg capsule,extended release 24 hr 120 mg PO BID heart #90 caps 06/23/23 losartan 25 mg tablet 25 mg PO DAILY #90 tabs 06/23/23 furosemide 40 mg tablet (Lasix) 40 mg PO DAILY #90 tabs 04/10/24 apixaban 5 mg tablet (Eliquis) 5 mg PO BID #60 tabs 05/05/24 cetirizine 10 mg tablet 10 mg PO Q12H ask pcp 06/15/24 doxepin 25 mg capsule 25 mg PO QHS itch 06/15/24 lidocaine 5 % topical patch 1 patch topical Q24H rt rib pain 06/15/24 acetaminophen 500 mg tablet 1,000 mg (2 x 500 mg) PO Q8 PRN Pain #0 tabs 06/18/24 amoxicillin 875 mg-potassium clavulanate 125 mg tablet 1 tab PO Q12H #6 tabs 06/18/24 dexamethasone 4 mg tablet 6 mg (1.5 x 4 mg) PO DAILY #6 tabs 06/18/24 guaifenesin 1,200 mg tablet, extended release 12 hr (Mucus Relief ER) 1,200 mg PO BID #10 tabs 06/18/24 tramadol 50 mg tablet 50 mg PO Q6H PRN PRN pain #10 tabs 06/18/24 Hospital Course Operations None Procedures None Summary of Care Provided Minutes Spent on Discharge: 32 Hospital Course: Pt presents with SOB. Found to have COVID 19 and possible secondary bacteria pneumomia. She was treated with dexamethasone and antibiotics with ceftriaxone and azithromycin. She did experience chest pain, but that was deemed to be due to costchonditis from coughing. Weight / BMI Weight Weight: 66.9 kg Body Mass Index (BMI) 25.2 ABG / Lab / Microbiology Data 06/17/24 06:40 06/17/24 06:40 Microbiology: Microbiology 06/15/24 12:15 Urine, Random Legionella Antigen - Final 06/15/24 12:15 Urine, Random Streptococcus pneumoniae Antigen (M - Final 06/15/24 09:30 Mucosa - Nose SARS-CoV-2, Influenza & RSV (PCR) - Final SARS-CoV-2 (COVID 19 PCR) Radiography Diagnostic Testing: Radiology Impression KUB X-Ray 06/17/24 16:02 IMPRESSION: No acute abnormality. Reading Location: [facility] Instructions Discharge Diet: Low fat / Low cholesterol DC O2, CPAP, BIPAP Needs Home O2 Discharge instructions: No Meaningful Use Info Meaningful Use Meaningful Use Diagnoses (Choose all that apply): None applicable Ischemic Stroke Statin Dosing Therapy Reference: STATIN DOSE THERAPY REFERENCE: * Patients > 75 years receive moderate or high dose statin therapy. * Patients 75 years or YOUNGER should receive HIGH intensity statin dose unless contraindicated. You will be required to document reason for non-treatment if statin daily dose does not meet guidelines. HIGH DOSE STATIN THERAPY DAILY Atorvastatin > than or = to 40 mg Rosuvastatin > than or = to 20 mg Amlodipine + Atorvastatin > than or = to 2.5/40 mg Ezetimibe + Simvastatin 10/80 mg Simvastatin 80mg Discharge Plan Admission Admit Date/Time: 06/15/24 17:43 Primary Reason for Your Visit: Pneumonia Attending Provider: Elmer Serrano Primary Care Provider: Bjorn Soares Consulting Providers: Erica Anand Instructions Additional Instructions / Restrictions: It is recommended to quarantine through 06/19, then wear a mask around others from 06/20-06/24. Discharge Orders/Prescriptions Prescriptions: New tramadol 50 mg Tablet 50 mg PO Q6H PRN PRN (Reason: pain) Qty: 10 0RF acetaminophen 500 mg Tablet 1,000 mg PO Q8 PRN (Reason: Pain) Qty: 0 0RF dexamethasone 4 mg Tablet 6 mg PO DAILY Qty: 6 0RF guaifenesin [Mucus Relief ER] 1,200 mg Tablet Extended Release 12hr 1,200 mg PO BID Qty: 10 0RF amoxicillin-pot clavulanate 875-125 mg tablet 1 tab PO Q12H Qty: 6 0RF Continued melatonin 5 mg tablet 5 mg PO HS PRN (Reason: sleep) (DME) Handicap placard See Rx Instructions .Route .MEDSUPPLY Qty: 1 0RF Rx Instructions: Lifetime potassium chloride 20 mEq tablet extended release 20 meq PO BID Qty: 90 3RF famotidine 40 MG tablet 40 mg PO BID atorvastatin 10 mg tablet 10 mg PO QHS cholecalciferol (vitamin D3) 25 mcg (1,000 unit) capsule 2,000 unit PO DAILY cyanocobalamin (vitamin B-12) 1,000 mcg tablet 2,000 mcg PO DAILY vitamins A,C,K-lsuw-issbhg 4,296 mcg-226 mg-90 mg capsule 1 cap PO BID latanoprost 0.005 % Drops 1 drp EACH EYE DAILY dorzolamide-timolol 22.3-6.8 mg/mL Drops 1 drp EACH EYE BID brimonidine 0.2 % drops 2 drp EACH EYE BID Patient Comments: INSTILL 1 DROP INTO BOTH EYES TWICE A DAY cetirizine 10 mg tablet 10 mg PO Q12H Patient Comments: PLEASE SEE ATTACHED FOR DETAILED DIRECTIONS doxepin 25 mg capsule 25 mg PO QHS lidocaine 5 % adhesive patch,medicated 1 patch topical Q24H diltiazem HCl 120 mg capsule,extended release 24hr 120 mg PO BID Qty: 90 3RF losartan 25 mg tablet 25 mg PO DAILY Qty: 90 3RF furosemide [Lasix] 40 mg tablet 40 mg PO DAILY Qty: 90 0RF Eliquis 5 mg tablet 5 mg PO BID Qty: 60 11RF Referrals / Follow Up: Bjorn Soares MD [Primary Care Provider] - Within 2 Weeks Disposition Disposition (needs filled in before D/C Order can be placed): Home, Self Care Charges/Coding Visit Charges Inpatient E&M: 09208 Disch Hosp >30min
[2024-06-18 13:33] VITALS: PULSE 69; RESP 18
[2024-06-18 13:40] VITALS: O2SAT 86; O2SAT 91; O2SAT 93
== END 2024-06-18 14:36 | disposition home or self-care (01) | DRG 177 ==
LOC: ED 16:43 → PCU 17:54
PROVIDERS: Admitting Provider Internal Medicine; Emergency Provider Emergency Medicine; PCP Family Medicine
DX: U07.1 COVID-19 (principal); J15.9 Unspecified bacterial pneumonia; J96.01 Acute respiratory failure with hypoxia; I13.0 Hypertensive heart and chronic kidney disease with heart failure and stage 1 through stage 4 chronic kidney disease, or unspecified chronic kidney disease; I50.30 Unspecified diastolic (congestive) heart failure; I48.19 Other persistent atrial fibrillation; N18.30 Chronic kidney disease, stage 3 unspecified; I35.0 Nonrheumatic aortic (valve) stenosis; E78.00 Pure hypercholesterolemia, unspecified; M47.26 Other spondylosis with radiculopathy, lumbar region; M48.061 Spinal stenosis, lumbar region without neurogenic claudication; K21.9 Gastro-esophageal reflux disease without esophagitis; Z79.01 Long term (current) use of anticoagulants; Z90.710 Acquired absence of both cervix and uterus; Z87.891 Personal history of nicotine dependence; M94.0 Chondrocostal junction syndrome [Tietze]; Z79.899 Other long term (current) drug therapy; Z98.41 Cataract extraction status, right eye; Z98.42 Cataract extraction status, left eye; Z90.49 Acquired absence of other specified parts of digestive tract; Z85.820 Personal history of malignant melanoma of skin; R10.9 Unspecified abdominal pain
CPT/HCPCS: 36415; 70450; 71045; 72148; 74018; 74176; 80048; 80053; 81001; 82550; 83735; 83880; 84100; 84443; 84484; 85025; 87449; 87631; 93005; 93306; 94640; 94668; 97162; 97166; 99252; 99284; A4216; G0463; J0696; J1940; J2405

== ENCOUNTER 2024-06-18 21:19 | Emergency (ER) | payer MEDICARE, OTHER, SELFPAY ==
[2024-06-18 21:21] VITALS: BP 124/113; PULSE 102; RESP 18; TEMP 36.5; O2SAT 94; BMI 25.2
--- NOTE | 2024-06-18 21:56 | CT_ITS ---
EXAM: BRAIN/HEAD WITHOUT CONTRAST CLINICAL HISTORY: Injury/pain COMPARISON: 06/15/2024 TECHNIQUE: Noncontrast images of the head with multiplanar reconstructions. Dose reduction techniques were used including intermediate exposure control (AEC),iterative reconstruction technique, and/or mA and/or KV dose adjustments based on patient's size. FINDINGS: No acute intracranial hemorrhage. No loss of lowe-white differentiation.There is a chronic lacunar infarction in the right basal ganglia measuring 7.7 mm.The ventricles and sulci are normal in appearance. The osseous structures are unremarkable. A right posterior scalp contusion is present. The paranasal sinuses and mastoid air cells are clear. CT/Brain/Head without Contrast IMPRESSION: 1. No acute intracranial abnormality. 2. Right posterior scalp contusion. Reading Location: [facility]
--- NOTE | 2024-06-18 21:57 | ED.VIS.FALL ---
HPI HPI - Fall History of Present Illness Chief Complaint: Fall Informant: patient Occured/Mechanism Occurred: Today Mechanism/Context: Yes same level fall Pain/Injury Pain Location: head and upper extremity (Right forearm) Quality of Pain: Burning Worsened by: Nothing Relieved by: Nothing Associated Symptoms Associated Symptoms: Negative for Parasthesias, Weakness, Loss of function, Inability to ambulate, Loss of consciousness or Amnesia Narrative Narrative: Patient presents after a fall that occurred today. Patient states she fell backwards and hit the back of her head. Patient also states she hit her right forearm and has some skin tears to her right forearm. Patient states her pain is worse on her forearm. Patient states that it is burning. Patient states nothing makes it better and nothing makes it worse. Patient states her last tetanus was 2 or 3 years ago. Patient is on Eliquis for atrial fibrillation. Tetanus Immunization: <5 years [facility] Medical History Atrial fibrillation Dyspnea on exertion Wears glasses Cancer Ambulates with cane Bladder disease History of renal disease High cholesterol Easy bruising Migraine headache Injury of head and neck Former smoker Leg cramps History of edema History of stress test History of echocardiogram Cardiology follow-up encounter Shortness of breath on exertion LLQ abdominal pain CKD (chronic kidney disease) stage 3, GFR 30-59 ml/min Heart murmur Concussion Chronic urticaria Basal cell carcinoma Aortic stenosis Nonrheumatic mitral (valve) insufficiency Nonrheumatic aortic (valve) insufficiency Secondary pulmonary arterial hypertension Hyperlipidemia Seasonal allergies Anemia Glaucoma GERD (gastroesophageal reflux disease) Essential (primary) hypertension Premature atrial contractions History of shingles History of basal cell cancer History of rectocele History of melanoma Home Medications ?Medication ?Instructions ?Recorded ?Last Taken ?Type famotidine 40 mg tablet 40 mg PO BID 05/28/17 06/14/24 History atorvastatin 10 mg tablet 10 mg PO QHS cholesterol 10/05/19 06/14/24 History dorzolamide 22.3 mg-timolol 6.8 1 drp EACH EYE BID eye heal 12/22/21 Unknown History mg/mL eye drops latanoprost 0.005 % eye drops 1 drp EACH EYE DAILY eye health 12/22/21 Unknown History brimonidine 0.2 % eye drops 2 drp EACH EYE BID 11/10/22 06/14/24 History cholecalciferol (vitamin D3) 25 2,000 unit PO DAILY supplement 11/10/22 Unknown History mcg (1,000 unit) capsule cyanocobalamin (vitamin B-12) 2,000 mcg PO DAILY supplement 11/10/22 Unknown History 1,000 mcg tablet melatonin 5 mg tablet 5 mg PO HS PRN sleep 11/10/22 Unknown History Handicap placard #1 ea 04/12/23 Unknown Rx vitamins A,C,K-shlq-hxosaj 4,296 1 cap PO BID eye health 04/12/23 Unknown History mcg-226 mg-90 mg capsule potassium chloride 20 mEq 20 meq PO BID #90 tabs 06/01/23 06/14/24 Rx tablet,extended release diltiazem HCl 120 mg 120 mg PO BID heart #90 caps 06/23/23 06/14/24 Rx capsule,extended release 24 hr losartan 25 mg tablet 25 mg PO DAILY #90 tabs 06/23/23 06/14/24 Rx furosemide 40 mg tablet (Lasix) 40 mg PO DAILY #90 tabs 04/10/24 06/14/24 Rx apixaban 5 mg tablet (Eliquis) 5 mg PO BID #60 tabs 05/05/24 06/14/24 Rx cetirizine 10 mg tablet 10 mg PO Q12H ask pcp 06/15/24 Unknown History doxepin 25 mg capsule 25 mg PO QHS itch 06/15/24 Unknown History lidocaine 5 % topical patch 1 patch topical Q24H rt rib pain 06/15/24 Unknown History acetaminophen 500 mg tablet 1,000 mg (2 x 500 mg) PO Q8 PRN 06/18/24 Unknown Rx Pain #0 tabs amoxicillin 875 mg-potassium 1 tab PO Q12H #6 tabs 06/18/24 Unknown Rx clavulanate 125 mg tablet dexamethasone 4 mg tablet 6 mg (1.5 x 4 mg) PO DAILY #6 tabs 06/18/24 Unknown Rx guaifenesin 1,200 mg tablet, 1,200 mg PO BID #10 tabs 06/18/24 Unknown Rx extended release 12 hr (Mucus Relief ER) tramadol 50 mg tablet 50 mg PO Q6H PRN PRN pain #10 tabs 06/18/24 Unknown Rx Allergy/AdvReac Type Severity Reaction Status Date / Time oxycodone (From Percocet) AdvReac Upset Verified 06/15/24 10:35 Stomach Family History Mother Anemia Hypertension Brother Hypertension Grandfather Cancer Surgical History Hx of colonoscopy History of bilateral cataract extraction History of hemorrhoidectomy History of repair of right rotator cuff History of laparoscopy History of appendectomy History of hysterectomy Social History household members: family housing: house Smoking Status: Former smoker Tobacco: How many years used: 25 how long ago did patient quit smokin alcohol intake: never substance use type: does not use what type of physical activity do you participate in: none ROS ROS ED Constitutional Constitutional ED: Denies chills or fever(s) Eyes Eyes: Denies blurry vision or change in vision ENT ENT ED: Denies rhinorrhea or sore throat Cardiovascular Cardiovascular: Denies chest pain or palpitations Respiratory/Chest Respiratory/Chest: Denies cough or dyspnea Gastrointestinal Gastrointestinal: Denies nausea or vomiting Genitourinary Genitourinary ED: Denies dysuria or hematuria Musculoskeletal Musculoskeletal: Denies back pain or neck pain Integumentary Denies abscess or rash Neurologic Neurologic: Reports headache(s); Denies weakness Allergic/Immunologic Allergic/Immunologic ED: Denies mouth swelling or urticaria EXAM Physical Exam Const Vital Signs: 06/18/24 21:21 06/18/24 21:31 Temperature 97.7 F L Temperature Source Oral Pulse Rate 102 H Respiratory Rate 18 Respiratory Effort Normal Blood Pressure 124/113 H Blood Pressure Mean 116 Pulse Ox 94 Oxygen Delivery Method Room Air Room Air Positive well nourished and well developed General Appearance ED: well developed HEENT HEENT Narrative: There is some tenderness and a small hematoma over the occipital scalp. There is no laceration noted. There is no bleeding noted. There is no bony crepitance or step-off noted. hematoma and tenderness Neck full ROM and supple Resp normal respiratory effort and clear to auscultation bilaterally Cardio regular rate Rhythm: abnormal rhythm irregularly irregular GI non-tender and non-distended Palpation: soft Extremity Extremity Narrative: There is mild tenderness over the right forearm. There is no bony crepitance or step-off. There is no deformity noted. There is good range of motion. Strength is 5/5 bilateral in the upper extremities. There are no sensory deficits noted. Radial pulses are equal bilaterally. Neuro oriented x3, CN's II-XII intact bilaterally, moves all extremities, no focal motor deficits and no sensory deficits noted Soy Coma Scale: document GCS findings Spontaneous Obeys Commands Oriented 15 Sensorium / Orientation: alert Motor Exam: strength 5/5 throughout Skin Skin Narrative: There are superficial skin tears over the ulnar aspect of the right forearm. There is no bleeding noted. There is no surrounding erythema. MDM MDM MDM Narrative Medical decision making narrative: Differential diagnosis includes intracranial bleeding, scalp contusion, forearm fracture, and contusion. X-rays of the right forearm will be obtained to assess for fracture. CT scan of the brain will be obtained to assess for intracranial bleeding. Radiography Diagnostic Testing: Clinical Impression(s) from Imaging Studies Brain CT 06/18/24 21:56 IMPRESSION: 1. No acute intracranial abnormality. 2. Right posterior scalp contusion. Reading Location: [facility] Forearm X-Ray 06/18/24 22:15 IMPRESSION: 1. No acute fracture identified. 2. Elbow joint effusion. Reading Location: [facility] CT scan of the brain was obtained. There is no acute intracranial abnormality. There is a right posterior scalp contusion. This was interpreted by the radiologist and was also independently reviewed by myself. X-rays of the right forearm were obtained. There are 2 views. On my independent interpretation, there is no acute fracture noted. Radiologist also interpreted the x-rays and noted a joint effusion of the elbow. Treatment and Re-Evaluation Narrative: Patient was advised of her findings. Patient was advised there could be an occult fracture of her radial head. However, she has good range of motion. Patient was instructed to ice and elevate the right forearm. Bacitracin dressings were applied to the skin tears. Patient was instructed to follow-up with her primary care physician in 5 to 7 days. Patient understood and was agreeable with the plan. All questions were answered. Discharge Plan Triage Chief Complaint: Fall Other Complaint: Wound ED Provider: Schwiger,Elmer Dx/Rx/DC Orders Clinical Impression: Closed head injury, Fall, Contusion of right forearm, initial encounter, Skin tear of right forearm without complication Instructions: ED Soft Tissue Contusion, ED Head Injury (Adult) Prescriptions: No Action melatonin 5 mg tablet 5 mg PO HS PRN (Reason: sleep) (DME) Handicap placard See Rx Instructions .Route .MEDSUPPLY Qty: 1 0RF Rx Instructions: Lifetime potassium chloride 20 mEq tablet extended release 20 meq PO BID Qty: 90 3RF famotidine 40 MG tablet 40 mg PO BID atorvastatin 10 mg tablet 10 mg PO QHS cholecalciferol (vitamin D3) 25 mcg (1,000 unit) capsule 2,000 unit PO DAILY cyanocobalamin (vitamin B-12) 1,000 mcg tablet 2,000 mcg PO DAILY vitamins A,C,X-cocf-vtsdzh 4,296 mcg-226 mg-90 mg capsule 1 cap PO BID latanoprost 0.005 % Drops 1 drp EACH EYE DAILY dorzolamide-timolol 22.3-6.8 mg/mL Drops 1 drp EACH EYE BID brimonidine 0.2 % drops 2 drp EACH EYE BID Patient Comments: INSTILL 1 DROP INTO BOTH EYES TWICE A DAY cetirizine 10 mg tablet 10 mg PO Q12H Patient Comments: PLEASE SEE ATTACHED FOR DETAILED DIRECTIONS doxepin 25 mg capsule 25 mg PO QHS lidocaine 5 % adhesive patch,medicated 1 patch topical Q24H tramadol 50 mg Tablet 50 mg PO Q6H PRN PRN (Reason: pain) Qty: 10 0RF acetaminophen 500 mg Tablet 1,000 mg PO Q8 PRN (Reason: Pain) Qty: 0 0RF dexamethasone 4 mg Tablet 6 mg PO DAILY Qty: 6 0RF guaifenesin [Mucus Relief ER] 1,200 mg Tablet Extended Release 12hr 1,200 mg PO BID Qty: 10 0RF amoxicillin-pot clavulanate 875-125 mg tablet 1 tab PO Q12H Qty: 6 0RF diltiazem HCl 120 mg capsule,extended release 24hr 120 mg PO BID Qty: 90 3RF losartan 25 mg tablet 25 mg PO DAILY Qty: 90 3RF furosemide [Lasix] 40 mg tablet 40 mg PO DAILY Qty: 90 0RF Eliquis 5 mg tablet 5 mg PO BID Qty: 60 11RF Primary Care Provider: Bjorn Soares Referrals: Bjorn Soares MD [Primary Care Provider] - 5-7 Days Print Language: Spanish Disposition Disposition: Home, Self Care
--- NOTE | 2024-06-18 22:15 | RAD_ITS ---
PROCEDURE: FOREARM 2 VIEWS REASON FOR EXAM: Injury/pain TECHNIQUE: 2 view(s) of the right forearm COMPARISON: None. FINDINGS: No acute fracture or dislocation.An elbow joint effusion is present. No soft tissue abnormality. RAD/Forearm 2 Views IMPRESSION: 1. No acute fracture identified. 2. Elbow joint effusion. Reading Location: [facility]
--- NOTE | 2024-06-18 22:15 | CM.ED ---
Social Work Date of referral: 06/18/24 Reason for referral: Hx of frequent falls Referred by: Social Work identification Patient provided consent to social work visit. Patient with her son. central supply worker reviewed fall prevention education and ERS device information with fall detection. Patient's son also getting patient a standard walker to ambulate with. No other questions/concerns/needs at this time. Lo Aguilar, REGION MANAGER, [employer] ENGINE [employer]CH[employer]IC
== END 2024-06-18 22:52 | disposition home or self-care (01) ==
PROVIDERS: Emergency Provider Emergency Medicine; PCP Family Medicine; Visit Provider Emergency Medicine
DX: S00.03XA Contusion of scalp, initial encounter (principal); I48.91 Unspecified atrial fibrillation; N18.30 Chronic kidney disease, stage 3 unspecified; S51.801A Unspecified open wound of right forearm, initial encounter; Z79.01 Long term (current) use of anticoagulants; W18.30XA Fall on same level, unspecified, initial encounter; I12.9 Hypertensive chronic kidney disease with stage 1 through stage 4 chronic kidney disease, or unspecified chronic kidney disease; E78.00 Pure hypercholesterolemia, unspecified; Z90.710 Acquired absence of both cervix and uterus; S50.11XA Contusion of right forearm, initial encounter; Z87.891 Personal history of nicotine dependence; Z85.828 Personal history of other malignant neoplasm of skin; K21.9 Gastro-esophageal reflux disease without esophagitis; Z79.899 Other long term (current) drug therapy; Z90.49 Acquired absence of other specified parts of digestive tract; Z98.41 Cataract extraction status, right eye; Z98.42 Cataract extraction status, left eye
CPT/HCPCS: 70450; 73090; 99283

== ENCOUNTER 2024-08-01 12:08 | Emergency (ER) | payer MEDICARE, OTHER, SELFPAY ==
[2024-08-01 12:09] VITALS: BP 162/84; PULSE 79; RESP 18; TEMP 36.4; O2SAT 94; BMI 22.6
[2024-08-01 12:22] VITALS: O2SAT 97
--- NOTE | 2024-08-01 12:27 | RAD_ITS ---
PROCEDURE: SACRUM-COCCYX MIN 2 VIEWS 08/01/2024 REASON FOR EXAM: FALL/INJURY TECHNIQUE: AP and lateral view(s) of the sacrum and coccyx. COMPARISON: None FINDINGS: Bones: Unremarkable. Narrowing and sclerosis of the symphysis pubis. Joints: Degenerative changes of the lower lumbar vertebrae. Other: Large amount of fecal material is seen in the colon. RAD/Sacrum-Coccyx min 2 Views IMPRESSION: No acute abnormality is seen. Reading Location: [id number]
--- NOTE | 2024-08-01 12:27 | RAD_ITS ---
PROCEDURE: PELVIS 1 OR 2 VIEWS 08/01/2024 REASON FOR EXAM: FALL/INJURY. Posterior right side pain following a fall. TECHNIQUE: 2 view(s) of the pelvis. COMPARISON: None FINDINGS: Hardware: No hardware is seen. Bones: Mild degree of bilateral hip osteoarthritis. Joints: No fracture is seen. soft tissues: Unremarkable Other: Degenerative changes of the lower lumbar spine. RAD/Pelvis 1 or 2 Views IMPRESSION: NO EVIDENCE OF PELVIC FRACTURE Reading Location: [id number]
--- NOTE | 2024-08-01 12:28 | CT_ITS ---
EXAM: CT Head Without Intravenous Contrast CLINICAL INDICATION: FALL/INJURY TECHNIQUE: Axial computed tomography images of the head/brain without intravenous contrast. This CT exam was performed using one or more of the following dose reduction techniques: automated exposure control, adjustment of the mA and/or kV according to patient size, and/or use of iterative reconstruction technique. 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 The cerebral and cerebellar sulci are prominent consistent with brain atrophy. Areas of decreased attenuation in the deep cerebral white matter are consistent with small vessel ischemic/degenerative changes. No acute intracranial hemorrhage, midline shift or mass effect. If symptoms persist, further evaluation with MRI is recommended. BONES/JOINTS: Unremarkable. No acute fracture. SOFT TISSUES: Unremarkable. SINUSES: Unremarkable as visualized. No acute sinusitis. MASTOID AIR CELLS: Unremarkable as visualized. No mastoid effusion. CT/Brain/Head without Contrast IMPRESSION: 1. Generalized brain atrophy. 2. Small vessel ischemic/degenerative changes. 3. No acute intracranial hemorrhage, midline shift or mass effect. If symptoms persist, further evaluation with MRI is recommended. Reading Location: [facility]
--- NOTE | 2024-08-01 12:29 | ED.VIS.FALL ---
HPI HPI - Fall History of Present Illness Chief Complaint: Fall Informant: patient and EMS Narrative Narrative: 84-year-old female is feeling fine today, she went to trim her toenails by putting her foot up on the armrest of a small chair in her living room, she states after she cut the first nail her foot slipped causing her to fall. She fell to her tailbone against a hardwood floor, and also hit the top of her head on the hardwood floor. No loss of consciousness, no headache, nausea, vomiting. She takes Eliquis for A-fib. She denies any other injury. She has been ambulatory before and after EMS transport here to the ER. Denies any bleeding or lacerations. [facility] Medical History Atrial fibrillation Acute left lumbar radiculopathy Atrial fibrillation Dyspnea on exertion Wears glasses Cancer Ambulates with cane Bladder disease History of renal disease High cholesterol Easy bruising Migraine headache Injury of head and neck Former smoker Leg cramps History of edema History of stress test History of echocardiogram Cardiology follow-up encounter Shortness of breath on exertion LLQ abdominal pain CKD (chronic kidney disease) stage 3, GFR 30-59 ml/min Heart murmur Concussion Chronic urticaria Basal cell carcinoma Aortic stenosis Nonrheumatic mitral (valve) insufficiency Nonrheumatic aortic (valve) insufficiency Secondary pulmonary arterial hypertension Hyperlipidemia Seasonal allergies Anemia Glaucoma GERD (gastroesophageal reflux disease) Essential (primary) hypertension Premature atrial contractions History of shingles History of basal cell cancer History of rectocele History of melanoma Home Medications ?Medication ?Instructions ?Recorded ?Last Taken ?Type famotidine 40 mg tablet 40 mg PO BID 05/28/17 06/14/24 History atorvastatin 10 mg tablet 10 mg PO QHS cholesterol 10/05/19 06/14/24 History dorzolamide 22.3 mg-timolol 6.8 1 drp EACH EYE BID eye heal 12/22/21 Unknown History mg/mL eye drops latanoprost 0.005 % eye drops 1 drp EACH EYE DAILY eye health 12/22/21 Unknown History brimonidine 0.2 % eye drops 2 drp EACH EYE BID 11/10/22 06/14/24 History cholecalciferol (vitamin D3) 25 2,000 unit PO DAILY supplement 11/10/22 Unknown History mcg (1,000 unit) capsule cyanocobalamin (vitamin B-12) 2,000 mcg PO DAILY supplement 11/10/22 Unknown History 1,000 mcg tablet melatonin 5 mg tablet 5 mg PO HS PRN sleep 11/10/22 Unknown History Handicap placard #1 ea 04/12/23 Unknown Rx vitamins A,C,K-lain-gkteqh 4,296 1 cap PO BID eye health 04/12/23 Unknown History mcg-226 mg-90 mg capsule potassium chloride 20 mEq 20 meq PO BID #90 tabs 06/01/23 06/14/24 Rx tablet,extended release diltiazem HCl 120 mg 120 mg PO BID heart #90 caps 06/23/23 06/14/24 Rx capsule,extended release 24 hr losartan 25 mg tablet 25 mg PO DAILY #90 tabs 06/23/23 06/14/24 Rx furosemide 40 mg tablet (Lasix) 40 mg PO DAILY #90 tabs 04/10/24 06/14/24 Rx apixaban 5 mg tablet (Eliquis) 5 mg PO BID #60 tabs 05/05/24 06/14/24 Rx cetirizine 10 mg tablet 10 mg PO Q12H ask pcp 06/15/24 Unknown History doxepin 25 mg capsule 25 mg PO QHS itch 06/15/24 Unknown History lidocaine 5 % topical patch 1 patch topical Q24H rt rib pain 06/15/24 Unknown History acetaminophen 500 mg tablet 1,000 mg (2 x 500 mg) PO Q8 PRN 06/18/24 Unknown Rx Pain #0 tabs amoxicillin 875 mg-potassium 1 tab PO Q12H #6 tabs 06/18/24 Unknown Rx clavulanate 125 mg tablet dexamethasone 4 mg tablet 6 mg (1.5 x 4 mg) PO DAILY #6 tabs 06/18/24 Unknown Rx guaifenesin 1,200 mg tablet, 1,200 mg PO BID #10 tabs 06/18/24 Unknown Rx extended release 12 hr (Mucus Relief ER) tramadol 50 mg tablet 50 mg PO Q6H PRN PRN pain #10 tabs 06/18/24 Unknown Rx Allergy/AdvReac Type Severity Reaction Status Date / Time oxycodone (From Percocet) AdvReac Upset Verified 06/15/24 10:35 Stomach Family History Mother Anemia Hypertension Brother Hypertension Grandfather Cancer Surgical History Hx of colonoscopy History of bilateral cataract extraction History of hemorrhoidectomy History of repair of right rotator cuff History of laparoscopy History of appendectomy History of hysterectomy Social History household members: family housing: house Smoking Status: Former smoker Tobacco: How many years used: 25 how long ago did patient quit smokin alcohol intake: never substance use type: does not use what type of physical activity do you participate in: none ROS ROS ED Constitutional Constitutional ED: Denies chills or fever(s) Eyes Eyes: Denies change in vision or diplopia ENT ENT ED: Denies ear pain, epistaxis, facial pain or rhinorrhea Cardiovascular Cardiovascular: Denies chest pain or palpitations Respiratory/Chest Respiratory/Chest: Denies cough or dyspnea Gastrointestinal Gastrointestinal: Denies abdominal pain, diarrhea, melena, nausea or vomiting Genitourinary Genitourinary ED: Denies dysuria or hematuria Musculoskeletal Musculoskeletal: Reports back pain; Denies extremity pain or neck pain Integumentary Denies abscess, Abrasions, laceration or rash Neurologic Neurologic: Denies confusion, headache(s), paresthesias or weakness EXAM Physical Exam Const Vital Signs: 08/01/24 12:09 08/01/24 12:22 08/01/24 14:08 Temperature 97.5 F L Temperature Source Oral Pulse Rate 79 65 Respiratory Rate 18 18 Respiratory Effort Normal Respiratory Depth Normal Respiratory Pattern Normal Blood Pressure 162/84 H Blood Pressure Mean 110 Pulse Ox 94 97 96 Oxygen Delivery Method Room Air Room Air Room Air Positive well nourished and well developed General Appearance ED: well developed and NAD HEENT Reports TM's clear and nasal mucous membranes and turbinates normal HEENT Narrative: Mild tenderness at the left side of the top of the head, there is no crepitance, hematoma, depression, laceration. There is a little bit of hyperemia where she had. No Esparza sign, no raccoon eyes, no CSF otorhinorrhea, no hemotympanum. Face and Sinus: Negative for facial tenderness Tympanic Membrane ED: Yes TM's clear Eyes PERRL and EOMs intact bilaterally Visual Acuity: other Other Details: no entrapment or pain with extraocular movements Neck full ROM and supple General: Negative for tenderness Chest Wall inspection of chest normal and palpation of chest normal Chest: symmetrical chest wall rise; Negative for crepitus or tenderness Resp normal respiratory effort and clear to auscultation bilaterally Percussion: other equal BS bilat Cardio no murmurs Rate: regular rate Rhythm: regular rhythm GI normal to inspection, nondistended, normoactive bowel sounds, soft to palpation and non-tender Back/Spine normal ROM Back/Spine Narrative: Tender to coccyx as well as the right SI joint area, there is no other midline spinal tenderness. Able to sit up without difficulty. Cervical Spine: Negative for cervical spine tenderness Thoracic Spine / Upper Back: Negative for thoracic spinal tenderness Lumbar Spine / Lower Back: Negative for lumbar spinal tenderness Extremity normal to inspection and full ROM Extremity Narrative: Atraumatic extremities full range of motion throughout all 4, including both hips without groin pain. General Extremety ED: Negative for tenderness Neuro oriented x3, CN's II-XII intact bilaterally, moves all extremities, no focal motor deficits and no sensory deficits noted [place] Coma Scale: document GCS findings Spontaneous Obeys Commands Oriented 15 Sensorium / Orientation: awake and alert Psych mental status grossly normal and thought process normal Skin no wounds Lesions: no lesions Rashes: no rashes MDM MDM MDM Narrative Medical decision making narrative: CT of the head was obtained in order to rule out intracranial injury, I reviewed the images and report which I agree with, negative for anything acute. Additionally, obtained 1 view x-ray series of the pelvis and 2 view x-ray series of the sacrum/coccyx. I see no acute fractures on either of these as well. Radiology in agreement. Patient ambulatory. She was given some Tylenol, her tailbone is hurting her more than anything, she has an inflatable donut at home to sit on and I advised her to use ice and Tylenol as needed. She stable for discharge home. Radiography Diagnostic Testing: Clinical Impression(s) from Imaging Studies Pelvis X-Ray 08/01/24 12:27 IMPRESSION: NO EVIDENCE OF PELVIC FRACTURE Reading Location: [id number] Sacrum and Coccyx X-Ray 08/01/24 12:27 IMPRESSION: No acute abnormality is seen. Reading Location: [id number] Brain CT 08/01/24 12:28 IMPRESSION: 1. Generalized brain atrophy. 2. Small vessel ischemic/degenerative changes. 3. No acute intracranial hemorrhage, midline shift or mass effect. If symptoms persist, further evaluation with MRI is recommended. Reading Location: [facility] Discharge Plan Triage Chief Complaint: Fall ED Provider: Daniel Dodge Dx/Rx/DC Orders Clinical Impression: Closed head injury without concussion, Coccyx contusion, Contusion of lower back, Fall from slip, trip, or stumble Instructions: ED Coccyx or Sacrum Contusion Prescriptions: No Action melatonin 5 mg tablet 5 mg PO HS PRN (Reason: sleep) (DME) Handicap placard See Rx Instructions .Route .MEDSUPPLY Qty: 1 0RF Rx Instructions: Lifetime potassium chloride 20 mEq tablet extended release 20 meq PO BID Qty: 90 3RF famotidine 40 MG tablet 40 mg PO BID atorvastatin 10 mg tablet 10 mg PO QHS cholecalciferol (vitamin D3) 25 mcg (1,000 unit) capsule 2,000 unit PO DAILY cyanocobalamin (vitamin B-12) 1,000 mcg tablet 2,000 mcg PO DAILY vitamins A,C,I-jlhh-qsptwb 4,296 mcg-226 mg-90 mg capsule 1 cap PO BID latanoprost 0.005 % Drops 1 drp EACH EYE DAILY dorzolamide-timolol 22.3-6.8 mg/mL Drops 1 drp EACH EYE BID brimonidine 0.2 % drops 2 drp EACH EYE BID Patient Comments: INSTILL 1 DROP INTO BOTH EYES TWICE A DAY cetirizine 10 mg tablet 10 mg PO Q12H Patient Comments: PLEASE SEE ATTACHED FOR DETAILED DIRECTIONS doxepin 25 mg capsule 25 mg PO QHS lidocaine 5 % adhesive patch,medicated 1 patch topical Q24H tramadol 50 mg Tablet 50 mg PO Q6H PRN PRN (Reason: pain) Qty: 10 0RF acetaminophen 500 mg Tablet 1,000 mg PO Q8 PRN (Reason: Pain) Qty: 0 0RF dexamethasone 4 mg Tablet 6 mg PO DAILY Qty: 6 0RF guaifenesin [Mucus Relief ER] 1,200 mg Tablet Extended Release 12hr 1,200 mg PO BID Qty: 10 0RF amoxicillin-pot clavulanate 875-125 mg tablet 1 tab PO Q12H Qty: 6 0RF diltiazem HCl 120 mg capsule,extended release 24hr 120 mg PO BID Qty: 90 3RF losartan 25 mg tablet 25 mg PO DAILY Qty: 90 3RF furosemide [Lasix] 40 mg tablet 40 mg PO DAILY Qty: 90 0RF Eliquis 5 mg tablet 5 mg PO BID Qty: 60 11RF Primary Care Provider: Bjorn Soares Referrals: Bjorn Soares MD [Primary Care Provider] - 10-14 Days if not better Print Language: Kazakh Disposition Disposition: Home, Self Care
[2024-08-01 14:08] VITALS: PULSE 65; RESP 18; O2SAT 96
[2024-08-01 14:16] VITALS: BP 138/68; PULSE 65; RESP 18; TEMP 36.3; O2SAT 96
[2024-08-01] MEDS: Acetaminophen 500 MG Tablet 1000 MG PO (14:18)
== END 2024-08-01 14:20 | disposition home or self-care (01) ==
PROVIDERS: Emergency Provider Emergency Medicine; PCP Family Medicine; Visit Provider Emergency Medicine
DX: S09.90XA Unspecified injury of head, initial encounter (principal); I48.91 Unspecified atrial fibrillation; N18.30 Chronic kidney disease, stage 3 unspecified; Z90.710 Acquired absence of both cervix and uterus; I12.9 Hypertensive chronic kidney disease with stage 1 through stage 4 chronic kidney disease, or unspecified chronic kidney disease; Z79.01 Long term (current) use of anticoagulants; Z87.891 Personal history of nicotine dependence; E78.00 Pure hypercholesterolemia, unspecified; S30.0XXA Contusion of lower back and pelvis, initial encounter; W01.198A Fall on same level from slipping, tripping and stumbling with subsequent striking against other object, initial encounter; Y93.89 Activity, other specified; Z85.828 Personal history of other malignant neoplasm of skin; K21.9 Gastro-esophageal reflux disease without esophagitis; Z79.899 Other long term (current) drug therapy; Z90.49 Acquired absence of other specified parts of digestive tract; Z98.41 Cataract extraction status, right eye; Z98.42 Cataract extraction status, left eye
CPT/HCPCS: 70450; 72170; 72220; 99284

== ENCOUNTER 2024-09-09 17:48 | Emergency (ER) | payer MEDICARE, OTHER, SELFPAY ==
[2024-09-09 17:49] VITALS: BP 172/77; PULSE 71; RESP 18; TEMP 36.9; O2SAT 100; BMI 22.3
[2024-09-09 17:51] VITALS: BP 172/77; PULSE 71; RESP 18; TEMP 36.9; O2SAT 100
--- NOTE | 2024-09-09 18:08 | EX.ED.DYSGE1 ---
HPI History of Present Illness Chief Complaint: Confusion Detail of Chief Complaint: Increased confusion from baseline Informant: patient and family (Sign is the primary informant because patient states she does not need to be here.) Onset/Context/Timing Onset: Today and Yesterday Context: Sudden Onset Timing: Intermittent Quality: Apparently was in the street talking to someone that was not there. Location: Not applicable Current Severity: Mild Maximum Severity: Moderate Worsened by: Patient has baseline dementia. Relieved by: Nothing Associated Symptoms Associated Symptoms: None Narrative Narrative: Patient is an 84-year-old woman. She has dementia. She has been seen by gerontologist through the [facility]. She failed her mini mental status exam and was told she could no longer drive. She has not seen by him again until October. She has happily no complaints. She denies headache, change in vision, trouble with speech. She denies cardiac respiratory symptoms. She denies upper respiratory infectious symptoms. She denies GI symptoms. She denies urologic symptoms. Son states she has had UTIs in the past when she has got worse. There are no new medications. She is on apixaban for atrial fibrillation. There is no history of trauma. She also has history hypercholesterolemia. Glaucoma, hypertension. Prior similar symptoms: Yes (UTI) Recent Illness/Hospitalization: No PFSH PFS Medical History Atrial fibrillation Acute left lumbar radiculopathy Atrial fibrillation Dyspnea on exertion Wears glasses Cancer Ambulates with cane Bladder disease History of renal disease High cholesterol Easy bruising Migraine headache Injury of head and neck Former smoker Leg cramps History of edema History of stress test History of echocardiogram Cardiology follow-up encounter Shortness of breath on exertion LLQ abdominal pain CKD (chronic kidney disease) stage 3, GFR 30-59 ml/min Heart murmur Concussion Chronic urticaria Basal cell carcinoma Aortic stenosis Nonrheumatic mitral (valve) insufficiency Nonrheumatic aortic (valve) insufficiency Secondary pulmonary arterial hypertension Hyperlipidemia Seasonal allergies Anemia Glaucoma GERD (gastroesophageal reflux disease) Essential (primary) hypertension Premature atrial contractions History of shingles History of basal cell cancer History of rectocele History of melanoma Home Medications ?Medication ?Instructions ?Recorded ?Last Taken ?Type famotidine 40 mg tablet 40 mg PO BID 05/28/17 06/14/24 History dorzolamide 22.3 mg-timolol 6.8 1 drp EACH EYE BID eye heal 12/22/21 Unknown History mg/mL eye drops latanoprost 0.005 % eye drops 1 drp EACH EYE DAILY eye health 12/22/21 Unknown History brimonidine 0.2 % eye drops 2 drp EACH EYE BID 11/10/22 06/14/24 History cholecalciferol (vitamin D3) 25 2,000 unit PO DAILY supplement 11/10/22 Unknown History mcg (1,000 unit) capsule cyanocobalamin (vitamin B-12) 2,000 mcg PO DAILY supplement 11/10/22 Unknown History 1,000 mcg tablet melatonin 5 mg tablet 5 mg PO HS PRN sleep 11/10/22 Unknown History Handicap placard #1 ea 04/12/23 Unknown Rx vitamins A,C,N-lfxd-pfruio 4,296 1 cap PO BID eye health 04/12/23 Unknown History mcg-226 mg-90 mg capsule cetirizine 10 mg tablet 10 mg PO Q12H ask pcp 06/15/24 Unknown History doxepin 25 mg capsule 25 mg PO QHS itch 06/15/24 Unknown History lidocaine 5 % topical patch 1 patch topical Q24H rt rib pain 06/15/24 Unknown History acetaminophen 500 mg tablet 1,000 mg (2 x 500 mg) PO Q8 PRN 06/18/24 Unknown Rx Pain #0 tabs tramadol 50 mg tablet 50 mg PO Q6H PRN PRN pain #10 tabs 06/18/24 Unknown Rx apixaban 5 mg tablet (Eliquis) 5 mg PO BID #180 tabs 09/04/24 Unknown Rx atorvastatin 10 mg tablet 10 mg PO QHS cholesterol #90 tabs 09/04/24 Unknown Rx diltiazem HCl 120 mg 120 mg PO BID heart #180 caps 09/04/24 Unknown Rx capsule,extended release 24 hr furosemide 40 mg tablet (Lasix) 40 mg PO DAILY #90 tabs 09/04/24 Unknown Rx losartan 25 mg tablet 25 mg PO DAILY #90 tabs 09/04/24 Unknown Rx potassium chloride 20 mEq 20 meq PO BID #180 tabs 09/04/24 Unknown Rx tablet,extended release gabapentin 300 mg capsule 300 mg PO DAILY 09/09/24 Unknown History Allergy/AdvReac Type Severity Reaction Status Date / Time oxycodone (From Percocet) AdvReac Upset Verified 09/09/24 17:49 Stomach Family History Mother Anemia Hypertension Brother Hypertension Grandfather Cancer Surgical History Hx of colonoscopy History of bilateral cataract extraction History of hemorrhoidectomy History of repair of right rotator cuff History of laparoscopy History of appendectomy History of hysterectomy Social History household members: family housing: house Smoking Status: Former smoker Tobacco: How many years used: 25 how long ago did patient quit smokin alcohol intake: never substance use type: does not use what type of physical activity do you participate in: none ROS ROS ED Review of Systems ROS Unobtainable: due to mental status and other Details: Patient does not believe she needs to be here. She does not deny that she was in the street talking to someone that was not there. She answered no to every question asked with regards to review of systems. EXAM Physical Exam Const Vital Signs: 09/09/24 17:49 09/09/24 17:51 09/09/24 18:49 Temperature 98.4 F 98.4 F 98.3 F Temperature Source Oral Oral Oral Pulse Rate 71 71 88 Respiratory Rate 18 18 16 Blood Pressure 172/77 H 172/77 H 135/56 H Blood Pressure Mean 108 108 82 Pulse Ox 100 100 98 Oxygen Delivery Method Room Air Room Air Room Air Positive well nourished and well developed General Appearance ED: well developed and NAD HEENT Reports moist mucous membranes HEENT Narrative: Head is atraumatic normocephalic. Ears normal. Nares patent. Posterior pharynx normal. Uvula is midline. No deviation tongue protrusion. Eyes PERRL and EOMs intact bilaterally Eyes Narrative: There is no nystagmus. General Eye ED: Negative for pale conjunctiva or scleral icterus Neck no lymphadenopathy, supple and no JVD Chest Wall inspection of chest normal and palpation of chest normal Resp normal respiratory effort and clear to auscultation bilaterally Cardio regular rate, S1 normal heart sound and S2 normal heart sound; Negative for no murmurs Rhythm: abnormal rhythm irregularly irregular (There is a grade 1-2 systolic murmur heard essentially throughout the precordium.) GI normal to inspection, nondistended, normoactive bowel sounds, non-tender, non-distended and no masses; Negative for hepatosplenomegaly Back/Spine no CVA tenderness Extremity normal to inspection Neuro oriented x3, CN's II-XII intact bilaterally and no sensory deficits noted Sensorium / Orientation: alert Motor Exam: strength 5/5 throughout Psych mental status grossly normal Skin no rashes or lesions noted, no wounds and skin turgor normal MDM MDM MDM Narrative Medical decision making narrative: Light of the fact the patient had a geriatric eval and was told she could not drive and did poorly on her mental status exam suspect that this is related to dementia. Since this is worse than normal we will obtain appropriate blood work and UA to assess for metabolic infectious cause. Since there is no history of trauma and she denies headache and has a nonfocal neurologic exam at this point a CT of the head was not obtained nor do I believe it to be indicated. Lab Data Attestation: I reviewed the patient's lab results. Lab results narrative: CBC is unremarkable. Basic metabolic panel is unremarkable. Estimated creatinine clearance is 30.8. UA is negative. Labs: Laboratory Results - last 24 hr 09/09/24 09/09/24 18:10 18:16 WBC 6.6 RBC 4.90 Hgb 14.5 Hct 44.4 MCV 90.6 MCH 29.6 MCHC 32.7 RDW Std Deviation 48.6 H RDW Coeff of Arben 14.5 Plt Count 278 MPV 9.4 Immature Gran % (Auto) 0.300 Neut % (Auto) 55.8 Lymph % (Auto) 27.5 Mccracken % (Auto) 9.4 Eos % (Auto) 5.3 H Baso % (Auto) 1.7 H Absolute Neuts (auto) 3.7 Absolute Lymphs (auto) 1.82 Nucleated RBC % 0 Sodium 138 Potassium 3.7 Chloride 100 Carbon Dioxide 24.7 Anion Gap 13 BUN 14 Creatinine 1.15 Estim Creat Clear Calc 30.88 L Est GFR (MDRD) Non-Af 47 L BUN/Creatinine Ratio 12.2 Glucose 102 H Calcium 9.2 Total Bilirubin 0.62 AST 23 ALT 13 Alkaline Phosphatase 158 H Total Protein 7.4 Albumin 4.2 Globulin 3.2 Albumin/Globulin Ratio 1.3 Urine Color Straw Urine Clarity Clear Urine pH 7.0 Ur Specific [place] 1.005 Urine Protein Negative Urine Glucose (UA) Normal Urine Ketones Negative Urine Occult Blood Negative Urine Nitrite Negative Urine Bilirubin Negative Urine Urobilinogen Normal Ur Leukocyte Esterase 25 H Urine RBC 0 SEEN Urine WBC 0 SEEN Ur Squamous Epith Cells 0-5 SEEN Urine Bacteria 0 SEEN Urine Mucus 0 SEEN Treatment and Re-Evaluation :: In light of a negative workup with a nonfocal neurologic exam and a diagnosis in my opinion of dementia patient be discharged to home with referral to Dr. Lucas per family's request for a local brick machine operator. Discharge Plan Triage Chief Complaint: Confusion ED Provider: Romaine Rivero Dx/Rx/DC Orders Clinical Impression: Acute on chronic alteration in mental status, Atrial fibrillation, Anticoagulant long-term use, Acute renal insufficiency Instructions: Cognitive Impairment Mild, ED DEMENTIA Alzheimer's, ED Confusion Prescriptions: No Action melatonin 5 mg tablet 5 mg PO HS PRN (Reason: sleep) (DME) Handicap placard See Rx Instructions .Route .MEDSUPPLY Qty: 1 0RF Rx Instructions: Lifetime atorvastatin 10 mg tablet 10 mg PO QHS Qty: 90 3RF Eliquis 5 mg tablet 5 mg PO BID Qty: 180 3RF diltiazem HCl 120 mg capsule,extended release 24hr 120 mg PO BID Qty: 180 3RF losartan 25 mg tablet 25 mg PO DAILY Qty: 90 3RF furosemide [Lasix] 40 mg tablet 40 mg PO DAILY Qty: 90 3RF potassium chloride 20 mEq tablet extended release 20 meq PO BID Qty: 180 3RF famotidine 40 MG tablet 40 mg PO BID cholecalciferol (vitamin D3) 25 mcg (1,000 unit) capsule 2,000 unit PO DAILY cyanocobalamin (vitamin B-12) 1,000 mcg tablet 2,000 mcg PO DAILY vitamins A,C,V-rcla-mjvslo 4,296 mcg-226 mg-90 mg capsule 1 cap PO BID latanoprost 0.005 % Drops 1 drp EACH EYE DAILY dorzolamide-timolol 22.3-6.8 mg/mL Drops 1 drp EACH EYE BID brimonidine 0.2 % drops 2 drp EACH EYE BID Patient Comments: INSTILL 1 DROP INTO BOTH EYES TWICE A DAY cetirizine 10 mg tablet 10 mg PO Q12H Patient Comments: PLEASE SEE ATTACHED FOR DETAILED DIRECTIONS doxepin 25 mg capsule 25 mg PO QHS lidocaine 5 % adhesive patch,medicated 1 patch topical Q24H tramadol 50 mg Tablet 50 mg PO Q6H PRN PRN (Reason: pain) Qty: 10 0RF acetaminophen 500 mg Tablet 1,000 mg PO Q8 PRN (Reason: Pain) Qty: 0 0RF gabapentin 300 mg capsule 300 mg PO DAILY Primary Care Provider: Bjorn Soares Referrals: Bjorn Soares MD [Primary Care Provider] - Scott Lucas Chi, MD [Med Staff - Active Staff] - 1-2 Weeks Activity Restrictions/Additional Instructions: Call Dr. Lucas's office for outpatient follow-up and workup for dementia Print Language: Urdu Disposition Disposition: Home, Self Care
[2024-09-09 18:20] LABS: Bacteria 0 SEEN /hpf (None Seen); Mucous, Urine 0 SEEN /hpf (<or=2+); Red Blood Cells-Urine 0 SEEN /hpf (0-5); White Blood Cells 0 SEEN /hpf (0-5)
[2024-09-09 18:21] LABS: Absolute Lymphocyte Count 1.82 X10^3/uL (0.83-4.51); Absolute Neutrophil Count 3.7 X10^3/uL (2.0-7.7); Basophil# 0.11 X10^3/uL; Basophil% 1.7 % (0-1); Eosinophil# 0.35 X10^3/uL; Eosinophils% 5.3 % (0-5); Hematocrit 44.4 % (37-47); Hemoglobin 14.5 g/dL (12.0-15.0); Lymphocyte # 1.82 X10^3/ul (0.83-4.51); Lymphocyte % 27.5 % (19-41); Mean Corp Hgb Conc 32.7 g/dL (32-36); Mean Corpuscular Hgb 29.6 pg (27.0-32.0); Mean Corpuscular Volume 90.6 fL (81-99); Mean Platelet Vol. 9.4 fl (6.2-12.0); Monocyte# 0.62 X10^3/uL; Monocyte% 9.4 % (0-10); NRBC Flagged by Analyzer 0 % (0-5); Neutrophil # 3.71 X10^3/uL (2.7-7.7); Neutrophil % 55.8 % (47-70); Platelet Count 278 K/mm3 (150-450); RBC Distribution Width CV 14.5 % (11.6-14.6); RBC Distribution Width SD 48.6 fl (35.1-43.9); White Blood Count 6.6 K/mm3 (4.4-11.0)
[2024-09-09 18:22] LABS: Color, Urine Straw (Yellow); Glucose, Dipstick Normal (Normal); Ketone-Dipstick Negative (Negative); Leukocyte Esterase-Dipstick 25 /ul (Negative); Nitrite-Dipstick Negative (Negative); Occult Blood-Urine Negative /ul (Negative); Protein-Dipstick Negative (Negative); Specific Gravity, Urine 1.005 (1.002-1.030); Urine Bilirubin Dipstick Negative (Negative); Urine Clarity Clear (Clear); Urine Urobilinogen Normal (Normal)
[2024-09-09 18:28] LABS: Squamous Epithelial Cells - UA 0-5 SEEN /hpf (5-10)
[2024-09-09 18:42] LABS: ALB/GLOB Ratio 1.3 RATIO (0.9-2.4); AST(SGOT) 23 U/L (<=31); Alanine Aminotransfer ALT/SGPT 13 U/L (<=34); Albumin, Serum 4.2 g/dL (3.4-4.8); Alkaline Phosphatase 158 U/L (35-104); Anion Gap 13 (5-15); BUN 14 mg/dL (4-19); BUN/Creat Ratio 12.2 RATIO (10-20); Calcium,Total 9.2 mg/dL (7.6-11.0); Carbon Dioxide 24.7 mmol/L (21.0-32.0); Chloride 100 mmol/L (98-108); Creatinine, Serum 1.15 mg/dL (0.70-1.20); EST Glomerular Filtration Rate 47 (>60); Estimated Creatinine Clearance 30.88 ml/min (50-250); Globulin 3.2 g/dL (2.2-4.2); Glucose 102 mg/dL (70-99); Potassium 3.7 mmol/L (3.3-5.1); Protein, Total 7.4 g/dL (5.9-8.4); Sodium Level 138 mmol/L (133-145); Total Bilirubin 0.62 mg/dL (0.00-1.30)
[2024-09-09 18:49] VITALS: BP 135/56; PULSE 88; RESP 16; TEMP 36.8; O2SAT 98
[2024-09-09 19:03] VITALS: BP 132/74; PULSE 67; RESP 14; TEMP 36.8; O2SAT 100
== END 2024-09-09 19:03 | disposition home or self-care (01) ==
PROVIDERS: Emergency Provider Emergency Medicine; PCP Family Medicine; Visit Provider Emergency Medicine
DX: R41.0 Disorientation, unspecified (principal); F03.90 Unspecified dementia, unspecified severity, without behavioral disturbance, psychotic disturbance, mood disturbance, and anxiety; I48.91 Unspecified atrial fibrillation; N18.30 Chronic kidney disease, stage 3 unspecified; E78.00 Pure hypercholesterolemia, unspecified; I12.9 Hypertensive chronic kidney disease with stage 1 through stage 4 chronic kidney disease, or unspecified chronic kidney disease; Z79.01 Long term (current) use of anticoagulants; Z87.891 Personal history of nicotine dependence; Z90.710 Acquired absence of both cervix and uterus; Z85.820 Personal history of malignant melanoma of skin; K21.9 Gastro-esophageal reflux disease without esophagitis; Z79.899 Other long term (current) drug therapy; Z90.49 Acquired absence of other specified parts of digestive tract; Z98.41 Cataract extraction status, right eye; Z98.42 Cataract extraction status, left eye
CPT/HCPCS: 80053; 81001; 85025; 99284

== ENCOUNTER 2025-01-26 09:51 | Inpatient (IN) | payer MEDICARE, OTHER, SELFPAY ==
[2025-01-26] VITALS (10 sets, daily range): BP systolic 112–134; BP diastolic 57–106; PULSE 63–109; RESP 12–16; TEMP 36.3–37.1; O2SAT 92–100; BMI 22.5
--- NOTE | 2025-01-26 12:25 | CM.ED ---
Social work Reason for referral: family request Referral source: dressage instructor Marion dressage instructor Marion approached SW stating patient's family wanted to speak with SW, per triage note. SW entered patient's room, introducing self and role at [facility]. Patient was observed laying comfortably in bed and appeared confused, but pleasant, when SW entered room. At patient's bedside was patient's daughter in law, Geno. SW stated entering room due to family triage request about needing case management. Geno stated not really needing it despite patient's son's, James, thinking they did. Per Geno, patient has a history of confusion and memory loss. Geno stated wanting to have patient enter AL at [facility], though stated [facility]'s [place] apartments lead to the outside with nothing stopping people and Geno's son in law has reportedly found patient wandering in the street at times. Geno reports believing the family is past the point where [place] apartments can be considered. Patient has reportedly lived with James and Geno for the last 10 years and patient's abilities appear to be decreasing more rapidly, per Geno. Geno stated James has filled out the government paperwork for Medicaid, but states a spend down has been required and is quite a lot. Geno stated [address] was suggested to the family as another option which Geno believed James was pursuing. Geno stated evenings seem to be the hardest. SW provided empathic support and active listening. Dr Simon entered room and SW exited. SW checked back in later and patient was alone in room; patient stated Geno ran home to get something and patient denied further needs. Tracie Portillo, BRICK LAYER, THERAPEUTIC SUPPORT STAFF
--- NOTE | 2025-01-26 12:49 | CT_ITS ---
PROCEDURE: ABDOMEN/PELVIS W IV CONT ONLY 01/26/2025 REASON FOR EXAM: LEFT BUTTOCKS WOUND AND CELLULITIS TECHNIQUE: Procedure Code: [id number] Modality: CT Procedure: ABDOMEN/PELVIS W IV CONT ONLY Coronal and Sagittal reconstruction series were provided. CONTRAST: Isovue 370 VOLUME: 82 mL One or more dose reduction techniques were used (e.g., Automated exposure control, adjustment of the mA and/or kV according to patient size, use of iterative reconstruction technique. RADIATION DOSE SUMMARY: CTDlvol: 11.01 mGy DLP: 579.93 mGycm COMPARISON: CT abdomen and pelvis June 15, 2024. FINDINGS: Lung bases: Clear. Liver: Unremarkable. Gallbladder: Status post cholecystectomy. Spleen: Unremarkable. Pancreas: Unremarkable. Adrenals: Unremarkable. Kidneys: Bilateral simple kidney cysts with the largest measures 3 cm at the midpole of the left kidney. Bladder: Unremarkable. Reproductive Organs: Unremarkable. Bowel: No bowel wall thickening or bowel obstruction. Appendix: Unremarkable. Lymph nodes: No lymphadenopathy. Vasculature: Atherosclerotic calcifications. No aneurysm. Peritoneum / Retroperitoneum: No free air or free fluid. Bones: No acute bony abnormalities. CT/Abdomen/Pelvis W IV Cont ONLY IMPRESSION: No acute abdominopelvic abnormalities. Reading Location: [id number]
[2025-01-26 14:06] LABS: Hematocrit 41.9 % (37-47); Hemoglobin 14.3 g/dL (12.0-15.0); Immature Granulocytes Count 0.020 X10^3/uL (0.0-0.0); Mean Corp Hgb Conc 34.1 g/dL (32-36); Mean Corpuscular Volume 92.9 fL (81-99); Mean Platelet Vol. 9.4 fl (6.2-12.0); NRBC Flagged by Analyzer 0 % (0-5); Platelet Count 165 K/mm3 (150-450); RBC Distribution Width CV 15.3 % (11.6-14.6); RBC Distribution Width SD 52.3 fl (35.1-43.9); Red Blood Count 4.51 M/mm3 (4.2-5.4); White Blood Count 7.8 K/mm3 (4.4-11.0)
[2025-01-26 15:18] LABS: AST(SGOT) 21 U/L (<=31); Alanine Aminotransfer ALT/SGPT 15 U/L (<=34); Albumin, Serum 3.2 g/dL (3.4-4.8); Alkaline Phosphatase 77 U/L (35-104); Anion Gap 13 (5-15); BUN 13 mg/dL (4-19); BUN/Creat Ratio 15.5 RATIO (10-20); Calcium,Total 7.7 mg/dL (7.6-11.0); Carbon Dioxide 21.5 mmol/L (21.0-32.0); Chloride 101 mmol/L (98-108); Estimated Creatinine Clearance 43.85 ml/min (50-250); Globulin 3.0 g/dL (2.2-4.2); Glucose 69 mg/dL (70-99); Potassium 3.2 mmol/L (3.3-5.1)
--- NOTE | 2025-01-26 16:08 | EX.ED.DYSGE1 ---
HPI History of Present Illness Chief Complaint: Other, Pain/Inj Informant: patient and family Narrative Narrative: Patient is an 84-year-old female with history of dementia, chronic constipation, atrial fibrillation (on Eliquis) presenting with increased pain and weakness left side. Patient had an episode of dizziness 2 days ago but apparently took extra of her medications. Over the past few days had worsening pain in her left buttocks and has been weak in her legs per daughter. Daughter looked at her buttocks yesterday notes it was red. She was noted to have what I thought was stool that could have been drainage coming from the buttocks. No report any nausea or vomiting. Has chronic urinary frequency but no acute change in that. Denies any dysuria. No fever or chills reported. PFSH [facility] Medical History Atrial fibrillation Acute left lumbar radiculopathy Atrial fibrillation Dyspnea on exertion Wears glasses Cancer Ambulates with cane Bladder disease History of renal disease High cholesterol Easy bruising Migraine headache Injury of head and neck Former smoker Leg cramps History of edema History of stress test History of echocardiogram Cardiology follow-up encounter Shortness of breath on exertion LLQ abdominal pain CKD (chronic kidney disease) stage 3, GFR 30-59 ml/min Heart murmur Concussion Chronic urticaria Basal cell carcinoma Aortic stenosis Nonrheumatic mitral (valve) insufficiency Nonrheumatic aortic (valve) insufficiency Secondary pulmonary arterial hypertension Hyperlipidemia Seasonal allergies Anemia Glaucoma GERD (gastroesophageal reflux disease) Essential (primary) hypertension Premature atrial contractions History of shingles History of basal cell cancer History of rectocele History of melanoma Home Medications ?Medication ?Instructions ?Recorded ?Last Taken ?Type famotidine 40 mg tablet 40 mg PO BID GERD 05/28/17 01/24/25 History dorzolamide 22.3 mg-timolol 6.8 1 drp EACH EYE BID eye heal 12/22/21 01/25/25 History mg/mL eye drops latanoprost 0.005 % eye drops 1 drp EACH EYE DAILY eye health 12/22/21 Unknown History brimonidine 0.2 % eye drops 1 drp EACH EYE BID glaucoma 11/10/22 06/14/24 History cholecalciferol (vitamin D3) 25 2,000 unit PO DAILY supplement 11/10/22 01/24/25 History mcg (1,000 unit) capsule cyanocobalamin (vitamin B-12) 2,000 mcg PO DAILY supplement 11/10/22 01/24/25 History 1,000 mcg tablet melatonin 5 mg tablet 5 mg PO HS PRN sleep 11/10/22 Unknown History Handicap placard #1 ea 04/12/23 Unknown Rx cetirizine 10 mg tablet 10 mg PO Q12H ask pcp 06/15/24 01/24/25 History doxepin 25 mg capsule 25 mg PO QHS PRN anxiety 06/15/24 Unknown History tramadol 50 mg tablet 50 mg PO Q6H PRN PRN pain #10 tabs 06/18/24 Unknown Rx apixaban 5 mg tablet (Eliquis) 5 mg PO BID #180 tabs 09/04/24 01/24/25 Rx atorvastatin 10 mg tablet 10 mg PO QHS cholesterol #90 tabs 09/04/24 01/24/25 Rx diltiazem HCl 120 mg 120 mg PO BID heart #180 caps 09/04/24 Unknown Rx capsule,extended release 24 hr furosemide 40 mg tablet (Lasix) 40 mg PO DAILY #90 tabs 09/04/24 01/25/25 Rx losartan 25 mg tablet 25 mg PO DAILY blood pressure #90 09/04/24 Unknown Rx tabs potassium chloride 20 mEq 20 meq PO BID #180 tabs 09/04/24 01/24/25 Rx tablet,extended release gabapentin 300 mg capsule 300 mg PO QHS pain 09/09/24 01/26/25 History Allergy/AdvReac Type Severity Reaction Status Date / Time oxycodone (From Percocet) AdvReac Upset Verified 01/26/25 19:33 Stomach Family History Mother Anemia Hypertension Brother Hypertension Grandfather Cancer Surgical History Hx of colonoscopy History of bilateral cataract extraction History of hemorrhoidectomy History of repair of right rotator cuff History of laparoscopy History of appendectomy History of hysterectomy Social History household members: family housing: house Smoking Status: Former smoker Tobacco: How many years used: 25 how long ago did patient quit smokin alcohol intake: never substance use type: does not use what type of physical activity do you participate in: none ROS ROS ED Constitutional Constitutional ED: Denies chills or fever(s) Respiratory/Chest Respiratory/Chest: Denies cough Gastrointestinal Gastrointestinal: Reports constipation; Denies abdominal pain, diarrhea, nausea or vomiting Genitourinary Genitourinary ED: Denies dysuria Musculoskeletal Musculoskeletal: Reports back pain; Denies myalgias Integumentary Reports rash Neurologic Neurologic: Reports weakness; Denies paresthesias Hematologic/Lymphatic Hematologic/Lymphatic: Reports easy bleeding, easy bruising and other Details: on Eliquis EXAM Physical Exam Const Vital Signs: 01/26/25 16:00 01/26/25 17:00 Temperature 98.4 F 98.2 F Temperature Source Oral Oral Pulse Rate 87 98 Respiratory Rate 14 16 Blood Pressure 119/106 H 131/89 H Blood Pressure Mean 110 103 Pulse Ox 100 99 Oxygen Delivery Method Room Air Room Air Positive well nourished and well developed General Appearance ED: well developed and NAD HEENT Reports moist mucous membranes Neck supple Chest Wall inspection of chest normal Resp normal respiratory effort and clear to auscultation bilaterally Cardio regular rate and regular rhythm GI normal to inspection, nondistended, normoactive bowel sounds and non-tender Neuro no sensory deficits noted Neuro Narrative: Patient at her baseline. Oriented to place, situation and self. Sensorium / Orientation: alert Sensory Exam: No sensory level loss detected Motor Exam: strength 5/5 throughout and general weakness Psych mental status grossly normal Skin Skin Narrative: Open wound superior to the gluteal cleft at midline with associated induration. Wound itself is slightly macerated but no associated fluctuance or active drainage present. There is erythema and cellulitic changes/induration noted to the left buttocks. No crepitus appreciated. MDM MDM MDM Narrative Medical decision making narrative: Patient evaluated for weakness which she feels is more in her right leg as well as buttocks pain. Family noticed a rash on her buttocks. On exam patient has what appears to be an abscess that is previously drained in superior gluteal cleft (almost like a pilonidal abscess) as well as cellulitis to the left buttocks. She has not any focal weakness on exam I do not think she has a central neurologic process causing weakness. Do not think she needs a CT of the brain. Differential includes cellulitis family health, deeper abscess, Zina's gangrene (lower suspicion based on clinical exam), NICOLE, sepsis and urinary tract infection. Lab work largely unremarkable. Urinalysis not consistent with infection. CT does not show any acute process however my review of the CT I do see cellulitic changes to the soft tissue in the left buttocks area. Patient started on broad-spectrum including vancomycin and Zosyn specifically to cover MRSA as well as Streptococcus species. Discussed outpatient treatment versus admission with patient and her [id number]. Given her weakness and the patient's likely underlying dementia family would prefer admission initially ensure she is tolerating antibiotics and not having worsening weakness. Hospitalist contacted for admission Lab Data Attestation: I reviewed the patient's lab results. Labs: Laboratory Results - last 24 hr 01/26/25 01/26/25 13:50 16:25 Sodium 135 Potassium 3.2 L Chloride 101 Carbon Dioxide 21.5 Anion Gap 13 BUN 13 Creatinine 0.81 Estim Creat Clear Calc 43.85 L Est GFR (MDRD) Non-Af 71 BUN/Creatinine Ratio 15.5 Glucose 69 L Calcium 7.7 Total Bilirubin 0.48 AST 21 ALT 15 Alkaline Phosphatase 77 Total Protein 6.3 Albumin 3.2 L Globulin 3.0 Albumin/Globulin Ratio 1.1 Urine Color Straw Urine Clarity Cloudy Urine pH 6.5 Ur Specific [place] 1.010 Urine Protein 15 H Urine Glucose (UA) Normal Urine Ketones 5 H Urine Occult Blood 25 H Urine Nitrite Negative Urine Bilirubin Negative Urine Urobilinogen Normal Ur Leukocyte Esterase 25 H Urine RBC 0-5 SEEN Urine WBC 0-5 SEEN Ur Squamous Epith Cells 0-5 SEEN Urine Bacteria 0 SEEN Urine Mucus 0 SEEN Radiography Diagnostic Testing: Clinical Impression(s) from Imaging Studies Abdomen/Pelvis CT 01/26/25 12:49 IMPRESSION: No acute abdominopelvic abnormalities. Reading Location: [facility] Management Discussion w/another healthcare provider: Hospitalist Discharge Plan Dx/Rx/DC Orders Clinical Impression: Pilonidal abscess, Cellulitis of buttock, left, Fatigue Disposition Disposition: Acute Care Hospital [facility] Discharge Date/Time: 01/26/25 18:47
[2025-01-26] MEDS: 0.9% Normal Saline (500mL Bag) 500 ML 999 ML IV (16:32)
[2025-01-26] MEDS: Piperacil/Tazobactam 3.375 GM in 0.9% Normal Saline (50mL MB+) 50 ML IV ×2 (16:34→22:36)
[2025-01-26 16:56] LABS: Mucous, Urine 0 SEEN /hpf (<or=2+)
--- NOTE | 2025-01-26 17:05 | PCM.HP.STD ---
HPI - General General Date of Admission: 01/26/25 Date of Service: 01/26/25 Chief Complaint: Buttock pain HPI Narrative JIL DÍAZ, is a 84-year-old female history of possible dementia, A-fib on Eliquis, chronic constipation, GERD, hypertension presented [facility] 01/26/2025 due to increased pain in left buttock causing difficulty with ambulation. Past few days she has had worsening pain in her left. Daughter looked at buttock yesterday and noted it was red. In the ED temp 98.7, heart rate 63, blood pressure 112/98, respiratory rate 12 and pulse ox 98% on room air. CBC with white count 7.8 hemoglobin 14.3, CMP with a potassium of 3.2 and a glucose of 69. Patient was noted to have cellulitis of the left buttock and what appeared to be already draining pilonidal area. CT abdomen pelvis no acute process. Hospitalist contacted for admission for IV antibiotics as family did not feel comfortable taking patient home given her weakness and pain. Patient evaluated at bedside, no family present for collateral history. Patient evaluated and reports that she has been having this pain over the past couple of days, patient reported it was on the right side however on evaluation the cellulitis is definitely on the left side, but she does report it has been somewhat difficult to bear weight due to the pain, she thinks she may have had 1 episode of diarrhea usually has problems with constipation no further episodes, no abdominal pain. No fevers or chills that she notes, denies weakness in any of her extremities, denies any other rashes, bleeding, bruising etc. [facility] Medical History Atrial fibrillation Acute left lumbar radiculopathy Atrial fibrillation Dyspnea on exertion Wears glasses Cancer Ambulates with cane Bladder disease History of renal disease High cholesterol Easy bruising Migraine headache Injury of head and neck Former smoker Leg cramps History of edema History of stress test History of echocardiogram Cardiology follow-up encounter Shortness of breath on exertion LLQ abdominal pain CKD (chronic kidney disease) stage 3, GFR 30-59 ml/min Heart murmur Concussion Chronic urticaria Basal cell carcinoma Aortic stenosis Nonrheumatic mitral (valve) insufficiency Nonrheumatic aortic (valve) insufficiency Secondary pulmonary arterial hypertension Hyperlipidemia Seasonal allergies Anemia Glaucoma GERD (gastroesophageal reflux disease) Essential (primary) hypertension Premature atrial contractions History of shingles History of basal cell cancer History of rectocele History of melanoma Home Medications ?Medication ?Instructions ?Recorded ?Last Taken ?Type famotidine 40 mg tablet 40 mg PO BID 05/28/17 06/14/24 History dorzolamide 22.3 mg-timolol 6.8 1 drp EACH EYE BID eye heal 12/22/21 Unknown History mg/mL eye drops latanoprost 0.005 % eye drops 1 drp EACH EYE DAILY eye health 12/22/21 Unknown History brimonidine 0.2 % eye drops 2 drp EACH EYE BID 11/10/22 06/14/24 History cholecalciferol (vitamin D3) 25 2,000 unit PO DAILY supplement 11/10/22 Unknown History mcg (1,000 unit) capsule cyanocobalamin (vitamin B-12) 2,000 mcg PO DAILY supplement 11/10/22 Unknown History 1,000 mcg tablet melatonin 5 mg tablet 5 mg PO HS PRN sleep 11/10/22 Unknown History Handicap placard #1 ea 04/12/23 Unknown Rx vitamins A,C,N-jksi-hsachp 4,296 1 cap PO BID eye health 04/12/23 Unknown History mcg-226 mg-90 mg capsule cetirizine 10 mg tablet 10 mg PO Q12H ask pcp 06/15/24 Unknown History doxepin 25 mg capsule 25 mg PO QHS anxiety 06/15/24 Unknown History lidocaine 5 % topical patch 1 patch topical Q24H rt rib pain 06/15/24 Unknown History tramadol 50 mg tablet 50 mg PO Q6H PRN PRN pain #10 tabs 06/18/24 Unknown Rx apixaban 5 mg tablet (Eliquis) 5 mg PO BID #180 tabs 09/04/24 Unknown Rx atorvastatin 10 mg tablet 10 mg PO QHS cholesterol #90 tabs 09/04/24 Unknown Rx diltiazem HCl 120 mg 120 mg PO BID heart #180 caps 09/04/24 Unknown Rx capsule,extended release 24 hr furosemide 40 mg tablet (Lasix) 40 mg PO DAILY #90 tabs 09/04/24 Unknown Rx losartan 25 mg tablet 25 mg PO DAILY #90 tabs 09/04/24 Unknown Rx potassium chloride 20 mEq 20 meq PO BID #180 tabs 09/04/24 Unknown Rx tablet,extended release gabapentin 300 mg capsule 300 mg PO QHS 09/09/24 Unknown History Allergy/AdvReac Type Severity Reaction Status Date / Time oxycodone (From Percocet) AdvReac Upset Verified 01/26/25 09:52 Stomach Family History Mother Anemia Hypertension Brother Hypertension Grandfather Cancer Surgical History Hx of colonoscopy History of bilateral cataract extraction History of hemorrhoidectomy History of repair of right rotator cuff History of laparoscopy History of appendectomy History of hysterectomy Social History household members: family housing: house Smoking Status: Former smoker Tobacco: How many years used: 25 how long ago did patient quit smokin alcohol intake: never substance use type: does not use what type of physical activity do you participate in: none ROS ROS Narrative General: Denies fever/chills HENT: Denies headache, denies stuffy nose, denies sore throat EYES: Denies changes in vision Resp: Denies cough, denies shortness of breath Cardiac: Denies chest pain GI: Denies abdominal pain, 1 episode of loose stool that is resolved, denies nausea/vomiting : Denies changes in urination Extremity: Denies swelling MSK: Denies weakness, reports it just hurts when she is trying to walk Neuro: Denies any numbness/tingling Heme: Denies any bleeding or bruising Skin: Denies rashes Psychiatric: No complaints voiced Vital Signs Vital Signs Vital Signs: 01/26/25 09:52 01/26/25 10:32 01/26/25 11:15 Temperature 98.7 F Temperature Source Temporal Pulse Rate 63 64 Respiratory Rate 12 16 Respiratory Effort Normal Non-Labored Respiratory Pattern Normal Blood Pressure 112/98 H 115/78 Blood Pressure Mean 102 90 Pulse Ox 98 97 Oxygen Delivery Method Room Air Room Air 01/26/25 13:00 01/26/25 14:00 01/26/25 15:00 Temperature Temperature Source Pulse Rate 109 H 86 89 Respiratory Rate 14 16 14 Respiratory Effort Respiratory Pattern Blood Pressure 129/75 H 115/80 125/61 H Blood Pressure Mean 93 91 82 Pulse Ox 100 98 97 Oxygen Delivery Method Room Air Room Air Room Air 01/26/25 16:00 Temperature 98.4 F Temperature Source Oral Pulse Rate 87 Respiratory Rate 14 Respiratory Effort Respiratory Pattern Blood Pressure 119/106 H Blood Pressure Mean 110 Pulse Ox 100 Oxygen Delivery Method Room Air Weight Weight: 59.5 kg Body Mass Index (BMI) 22.5 Physical Exam Narrative General: Alert, was able to tell me the year and that she was in the hospital but was unsure of the month, no apparent distress HEENT: Atraumatic, normocephalic Eyes: Anicteric, normal conjunctiva, extraocular movements grossly intact Neck: Supple Respiratory: Clear to auscultation bilaterally, normal respiratory effort Cardiovascular: Regular rate, does seem to have a systolic ejection murmur at the upper borders GI: Soft, nontender, nondistended Extremities: No edema peripherally Musculoskeletal: Moving all extremities, both legs 5 out of 5 strength while patient laying flat Neuro: No overt focal neurological deficits Skin: Patient does have cellulitis onto the left buttock, has an area that appears open like it drained with no particular tenderness or fluctuance over the area, pain mostly in the cellulitis on the left buttock Psych: Cooperative Results Lab / Micro Data 01/26/25 13:50 01/26/25 13:50 Labs: Laboratory Results - last 24 hr 01/26/25 13:50: WBC 7.8, RBC 4.51, Hgb 14.3, Hct 41.9, MCV 92.9, MCH 31.7, MCHC 34.1, RDW Std Deviation 52.3 H, RDW Coeff of Arben 15.3 H, Plt Count 165, MPV 9.4, Immature Gran % (Auto) 0.300, Neut % (Auto) 77.9 H, Lymph % (Auto) 13.1 L, [place] % (Auto) 8.2, Eos % (Auto) 0.1, Baso % (Auto) 0.4, Absolute Neuts (auto) 6.1, Absolute Lymphs (auto) 1.02, Nucleated RBC % 0, Sodium 135, Potassium 3.2 L, Chloride 101, Carbon Dioxide 21.5, Anion Gap 13, BUN 13, Creatinine 0.81, Estim Creat Clear Calc 43.85 L, Est GFR (MDRD) Non-Af 71, BUN/Creatinine Ratio 15.5, Glucose 69 L, Calcium 7.7, Total Bilirubin 0.48, AST 21, ALT 15, Alkaline Phosphatase 77, Total Protein 6.3, Albumin 3.2 L, Globulin 3.0, Albumin/Globulin Ratio 1.1 Imaging Radiology Impression Abdomen/Pelvis CT 01/26/25 12:49 IMPRESSION: No acute abdominopelvic abnormalities. Reading Location: [facility] Assessment & Plan Assessment/Plan (1) Cellulitis of buttock, left: PLAN: Plan # Left buttock cellulitis - Patient with cellulitis on the left buttock which seems to be the source of her pain - CT of the abdomen pelvis did not note any abscess or acute abnormalities - Patient has area in the pilonidal region that appears that it had opened and drained and there is no fluctuance or particular tenderness in that area on my exam - Given she does have this area that appeared to have drained we will cover broadly with vancomycin and Zosyn - Consult wound care - Wound culture if able to further direct antibiotics #Hypokalemia -Replace -Repeat in the AM #Paroxysmal Atrial Fibrillation -Rate control: Continue diltiazem -Anticoagulation: Continue Eliquis #Hypertension - Continue diltiazem, hold losartan as blood pressure is 119/106 to allow for possible need for pain control #GERD -Continue famotidine #DVT ppx: Patient already on full dose anticoagulation Sugar Palma MD Charges/Coding Visit Charges Inpatient E&M: 77684 Init Hosp L2
--- OUTSIDE RECORDS SUMMARY | 2025-01-26 17:16 | XMS RPT_ITS | CCD ---
Author Organization [facility] Care Team Providers [employer] Name Role Phone Tony Soares MD Primary Care Provider Felton Yancey Unavailable Ender Lucio Unavailable Romie Cueto (Hist) Unavailable Stacey Levy S Unavailable Dr. Bjorn Soares Primary Care Provider Dr. Bjorn Soares Referring Provider FriendDr. Pierce Attending Provider Dr. Levy Ibarra Attending Provider FriendDr. Pierce Other Provider Tony Soares MD Primary Care Provider Felton Yancey Unavailable Ender Lucio Unavailable Romie Cueto Unavailable Stacey, [place] S Unavailable Felton Yancey MD Unavailable Ender Lucio MD Unavailable Levy Ibarra MD S Unavailable Dr. Bjorn Soares Primary Care Provider Dr. Bjorn Soares Referring Provider FriendDr. Pierce Attending Provider Friend, Dr. Stan Other Provider [phone] Dr. Levy Ibarra Attending Provider [phone] Dr. Bjorn Soares Primary Care Provider Dr. Bjorn Soares Referring Provider Dr. Stan Ng Attending Provider [phone] Berenice, Dr. Pierce Other Provider 1([facility]) 76 JEFFERSON Palumbo Attending Provider Shelley MEDICAL AFFAIRS SPECIALIST, MEDICAL AFFAIRS SPECIALIST-Hannah Zelaya Attending Provider Dr. Levy Ibarra Attending Provider 1([facility])-[phone] Bjorn Soares Primary Care Provider [phone] Dr. Bjorn Soares Referring Provider Dr. Stan Ng Attending Provider 1([facility])76 Dr. Bjorn Soares Primary Care Provider Dr. Bjorn Soares Referring Provider JEFFERSON Palumbo Attending Provider Shelley MEDICAL AFFAIRS SPECIALIST, MICAH-Hannah Zelaya Attending Provider [phone] Dr. Levy Ibarra Attending Provider [phone] Bjorn Soares Primary Care Provider Dr. Bjorn Soares Referring Provider JEFFERSON Palumbo Attending Provider Dr. Bjorn Soares Primary Care Provider [phone] Dr. Bjorn Soares Referring Provider Shelley MEDICAL AFFAIRS SPECIALIST, MICAH-Hannah Zelaya Attending Provider Tony Soares MD Primary Care Provider JEFFERSON Garcia Attending Provider Podlogar HYDROCHLORIC ACID OPERATOR.Drea CESPEDES Unavailable Romie Cueto MD Unavailable Jessica HYDROCHLORIC ACID OPERATOR.ASSISTED LIVING CARE MANAGER, Rahul Unavailable Jessica HYDROCHLORIC ACID OPERATOR.ASSISTED LIVING CARE MANAGER, Rahul Unavailable Nicolle SHAH, Dr. Milan Primary Care Provider Laisha MCGILL, Dr. Wilson Attending Provider Laisha MCGILL, Dr. Wilson Emergency Provider Nicolle SHAH, Dr. Milan Referring Provider Sanchez MEDICAL AFFAIRS SPECIALIST-C, Lo Attending Provider Lisseth MCGILL, Dr. Joseph Emergency Provider Cheng MCGILL, Dr. Maldonado Admit Provider Cheng MCGILL, Dr. Maldonado Other Provider Maggie MCGILL, Dr. Payne Attending Provider Maggie MCGILL, Dr. Payne Other Provider Es SHAH, Dr. Smith Attending Provider Demetrice MCGILL, Dr. Payne Attending Provider Demetrice MCGILL, Dr. Payne Emergency Provider Dar SHAH, Dr. Sanchez Emergency Provider Nicolle SHAH, Dr. Milan Primary Care Provider Dr. Daniel Dodge MD Attending Provider Nicolle SHAH, Dr. Milan Referring Provider [phone] Lo Cramer Attending Provider Michael OBRIEN-CAshtyn Attending Provider Mat SHAH, Dr. Gavin Emergency Provider Berenice, Stan Attending Unavailable Bjorn Soares Primary Care Unavailable Bjorn Soares Referring Unavailable Lo Bradford Attending Unavailable Bjorn Soares Referring Unavailable Bjorn Soares Primary Care Unavailable Sarah Suggs Attending Unavailabl e Bjorn Soares Primary Care Unavailable Erica Anand Admitting Unavailable Erica Anand Attending Unavailable Erica Anand Consulting Unavailable Bursley, Bjorn Primary Care Unavailable Aj Reynolds Attending Unavailable Bursley, Bjorn Primary Care Unavailable Romaine Rivero Attending Unavailable Bursley, Bjorn Primary Care Unavailable Omar Bush Attending Unavailable Bursley, Bjorn Primary Care Unavailable Felix Webb Attending Unavailable Bursley, Bjorn Primary Care Unavailable Elmer Serrano Attending Unavailable Elmer Serrano Consulting Unavailable Bursley, Bjorn Primary Care Unavailable Bursley, Bjorn Referring Unavailable Ashtyn Rodriguez NP Attending Unavailable Felix Webb Attending Unavailable Bursley, Bjorn Referring Unavailable Bursley, Bjorn Primary Care Unavailable Lo Bradford Attending Unavailable Bursley, Bjorn Referring Unavailable Bursley, Bjorn Primary Care Unavailable Nilton Rosa Attending Unavailable Bursley, Bjorn Primary Care Unavailable Bursley, Bjorn Referring Unavailable Brodie Palumbo Attending Unavailable Bursley, Bjorn Primary Care Unavailable Bursley, Bjorn Referring Unavailable Caleb Stewart Referring Unavailable Caleb Stewart Attending Unavailable Bursley, Bjorn Primary Care Unavailable Elmer Suresh Attending Unavailable Bursley, Bjorn Primary Care Unavailable Daniel Dodge Attending Unavailable Bursley, Bjorn Primary Care Unavailable Bursley, Bjorn Primary Care Unavailable Steve Interiano Attending Unavailable Elmer Serrano Attending Unavailable Erica Anand Consulting Unavailable Cheng Erica Admitting Unavailable Bursley, Bjorn Primary Care Unavailable Omar Pemberton Referring Unavailable Omar Pemberton Attending Unavailable Bursley, Bjorn Primary Care Unavailable Lo Bradford Attending Unavailable Bursley, Bjorn Referring Unavailable Bursley, Bjorn Primary Care Unavailable Bursley, Bjorn Primary Care Unavailable Bursley, Bjorn Referring Unavailable Ashtyn Rodriguez NP Attending Unavailable Lo Bradford Attending Unavailable Bursley, Bjorn Primary Care Unavailable Bursley, Bjorn Referring Unavailable Jessica ESQUIVEL.Rahul CESPEDES Unavailable TONY SOARES Attending Unavailab le BURSLEY, CHRISTOPHER B Primary Care Unavailab DREA Cash Attending Unavailable NICOLLE, CHRISTOPHER B Primary Care Unavailab DREA Cash Referring Unavailable HANYLEY, CHRISTOPHER B Primary Care Unavailab JULIA Veliz Attending Unava ilable PODLOGAR, DREA Referring Unavailable TONY SOARES Primary Care Unavailab ODETTE Gonzalez Attending Unavailable PODLOGAR, DREA Referring Unavailable TONY SOARES Primary Care Unavailab JULIA Veliz Referring Unava ilable TONY SOARES Primary Care Unavailab TONY Orellana Attending Unavailab TONY Orellana Primary Care Unavailab TONY Orellana Referring Unavailab TONY Orellana Primary Care Unavailab TONY Orellana Referring Unavailab TONY Orellana Primary Care Unavailab RAHUL Pollock Attending Unavailable TONY SOARES Primary Care Unavailab TONY Orellana Attending Unavailab TONY Orellana Primary Care Unavailab TONY Orellana Referring Unavailab TONY Orellana Primary Care Unavailab le Allergies Allergy Classification Reported Allergen(s) Allergy Type Date of Onset Reaction(s) Facility Opioid Agonists (1 source) oxyCODONE Drug Allergy 03-11-2017 Itching [facility] (20 sources) oxyCODONE; Translations: [OXYCODONE] Drug Allergy 03-11-2017 Itching [facility] (1 source) oxyCODONE Drug Allergy 09-09-2024 [facility] Repository Medications Current Medications Medication Drug Class(es) Dates Sig (Normalized) Sig (Original) acetaminophen 500 mg oral tablet (2 sources) Start: 06-18-2024 take 2 tablets by mouth every eight hours as needed for pain Acetaminophen 500 mg Tablet Active 1000 mg PO EVERY 8 HOURS as needed for Pain 0 June 18, 2024 1:00am apixaban 5 mg oral tablet (20 sources) Factor Xa Inhibitor Start: 04-12-2023 End: 09-04-2024 take 1 tablet by mouth twice daily Apixaban (Eliquis) 5 mg tablet Active 5 mg PO TWICE A DAY 180 September 04, 2024 8:44am Comment on above: Take 5 mg by mouth t wo times a day. atorvastatin 20 mg oral tablet (20 sources) HMG-CoA Reductase Inhibitor Start: 09-15-2023 End: 07-31-2024 take 1 tablet by mouth once daily atorvastatin (LIPITOR) 20 mg tablet Take 1 tablet by mouth once daily. 90 tablet 1 07/31/2024 Active Start: 05-28-2017 End: 09-04-2024 take 1 tablet by mouth at bedtime Atorvastatin 10 mg tablet Active 10 mg PO AT BEDTIME 90 September 04, 2024 8:43am Comment on above: Take 1 tablet by gee th once daily. benzonatate 100 mg oral capsule (5 sources) Non-narcotic Antitussive Start: 5 End: 5 take 1 capsule by mouth every eight hours as needed benzonatate (TESSALON PERLE) 100 mg capsule Take 1 capsule by mouth three times a day as needed for up to 10 days. 30 capsule 06/27/2024 07/07/2024 Active brimonidine tartrate 2 mg/ml ophthalmic solution (20 sources) alpha-Adrenergic Agonist Start: 3 Brimonidine 0.2 % drops Active 2 NMA EACH EYE TWICE A DAY November 10, 2022 11:03am Start: 12-22-2021 End: 11-10-2022 Brimonidine 0.2 % drops Disc ontinued 2 NMA EACH EYE DAILY December 22, 2021 12:00am November 10, 2022 11:05am Start: 02-10-2021 brimonidine (A LPHAGAN) 0.2 % ophthalmic solution 02/10/2021 Active Start: 10-05-2019 End: 09-15-2021 Brimonidine 0.2 % drops Disc ontinued 1 NMA OPHTHALMIC TWICE A DAY October 05, 2019 12:00am September 15, 2021 11:16am Start: 10-05-2019 End: 09-15-2021 Brimonidine Discontinued 1 D RP OPHTHALMIC TWICE A DAY October 05, 2019 12:00am September 15, 2021 11:16am cetirizine hydrochloride 10 mg oral tablet (2 sources) Histamine-1 Receptor Antagonist Start: 06-15-2024 take 1 tablet by mouth every twelve hours Cetirizine 10 mg tablet Active 10 mg PO Q12H June 15, 2024 1:00am cholecalciferol 0.025 mg oral capsule (20 sources) Vitamin D Start: 11-10-2022 take 1 capsule by mouth once daily Cholecalciferol (Vitamin D3) 25 mcg (1,000 unit) capsule Active 2000 U PO DAILY November 10, 2022 11:03am Start: 06-03-2020 End: 11-10-2022 take 1000 [IU] by mouth once daily Cholecalciferol (Vitamin D3) Discontinued 1000 UNIT PO DAILY June 03, 2020 1:00am November 10, 2022 11:05am Start: 06-03-2020 End: 11-10-2022 Cholecalciferol (Vitamin D3) 25 MCG capsule Discontinued 1000 U PO DAILY June 03, 2020 1:00am November 10, 2022 11:05am Comment on above: Take 1,000 Units by mouth once daily. CYANOCOBALAMIN, VITAMIN B-12, (VITAMIN B-12 ORAL) (20 sources) take 1000 mg by mouth once daily CYANOCOBALAMIN, VITAMIN B-12, (VITAMIN B-12 ORAL) Take 1,000 mg by mouth once daily. Active take 1000 mg by mouth once daily CYANOCOBALAMIN, VITAMIN B-12, (VITAMIN B-12 ORAL) Take 1,000 mg by mouth once daily. 0 Active Comment on above: Take 1,000 mg by gee th once daily. 24 hr dilTIAZem hydrochloride 120 mg extended release oral capsule (20 sources) Calcium Channel Diony Start: 06-23-2023 End: 09-04-2024 take 1 capsule by mouth twice daily Diltiazem Hcl 120 mg capsule,extended release 24hr Active 120 mg PO TWICE A DAY 180 September 04, 2024 8:44am Start: 05-13-2023 End: 05-13-2023 take 1 capsule by mouth twice daily Diltiazem Hcl 120 mg capsule,extended release 24hr Discontinued 120 mg PO TWICE A DAY 60 May 13, 2023 3:08pm May 13, 2023 3:10pm Start: 04-20-2023 End: 04-27-2023 take 1 capsule by mouth twice daily Diltiazem Hcl 120 mg capsule,extended release 24hr Discontinued 120 mg PO TWICE A DAY 180 April 20, 2023 5:25pm April 27, 2023 1:49pm Start: 05-28-2017 End: 06-23-2023 take 1 capsule by mouth once daily dilTIAZem CD (CARDIZEM CD, CARTIA XT) 120 mg 24 hr capsule Take 1 capsule by mouth once daily. 90 capsule 1 04/12/2023 Active Comment on above: Take 1 capsule by mo [facility] once daily. dorzolamide 20 mg/ml / timolol 5 mg/ml ophthalmic solution (20 sources) Carbonic Anhydrase Inhibitor, beta-Adrenergic Diony Start: 12-22-2021 Dorzolamide-Timolol 22.3-6.8 mg/mL Drops Active 1 NMA EACH EYE TWICE A DAY December 22, 2021 12:00am Start: 12-22-2021 Dorzolamide-Ti molol Active 1 DRP EACH EYE TWICE A DAY December 22, 2021 12:00am Start: 01-14-2021 take 1 drop(s) into the eye(s) twice daily dorzolamide-timolol (COSOPT) 22.3-6.8 mg/mL ophthalmic solution Use 1 Drop in both eyes twice daily. 01/14/2021 Active Start: 01-14-2021 take 1 drop(s) into the eye(s) twice daily dorzolamide-timolol (COSOPT) 22.3-6.8 mg/mL ophthalmic solution Use 1 Drop in both eyes twice daily. 0 01/14/2021 Active Comment on above: Use 1 Drop in both e yes twice daily. doxepin hydrochloride 25 mg oral capsule (12 sources) Tricyclic Antidepressant Start: take 1 capsule by mouth at bedtime Doxepin 25 mg capsule Active 25 mg PO AT BEDTIME June 15, 2024 1:00am Start: 12-10-2022 End: 03-10-2023 take 1 tablet by mouth once daily at bedtime Doxepin 3 mg tab Take 1 tablet by mouth daily at bedtime. 30 tablet 2 12/10/2022 03/10/2023 Active Comment on above: Take 1 tablet by gee daily at bedtime. famotidine 40 mg oral tablet (20 sources) Histamine-2 Receptor Antagonist Start: 8 End: take 1 tablet by mouth twice daily famotidine (PEPCID) 40 mg tablet Take 1 tablet by mouth two times a day. 180 tablet 3 09/13/2023 Active Comment on above: Take 1 tablet by gee th twice daily. fluconazole 150 mg oral tablet (2 sources) Azole Antifungal Start: 2 End: 2 fluconazole (DIFLUCAN) 150 mg tablet Indications: Vaginal irritation Take 1 tablet by mouth every 72 hours for 3 doses. 3 tablet 0 12/04/2021 12/11/2021 Active Comment on above: Take 1 tablet by gee th every 72 hours for 3 doses. furosemide 40 mg oral tablet (20 sources) Loop Diuretic Start: 3 End: 5 take 1 tablet by mouth once daily Furosemide (Lasix) 40 mg tablet Active 40 mg PO DAILY September 04, 2024 8:44am Comment on above: Take 40 mg by mouth once daily. gabapentin 300 mg oral capsule (20 sources) Anti-epileptic Agent Start: 8 End: 5 gabapentin (NEURONTIN) 300 mg capsule Take 1 tablet morning and bedtime May take one tablet in afternoon as needed for pain Per Dr. Martinez 03/18/2018 Active Start: 03-18-2018 End: 06-15-2024 take 1 capsule by mouth twice daily Gabapentin 300 mg capsule Discontinued 300 mg PO TWICE A DAY November 19, 2020 12:00am September 15, 2021 11:14am Start: 03-18-2018 End: 11-10-2022 take 1 capsule by mouth three times daily Gabapentin 300 mg Capsule Discontinued 300 mg PO THREE TIMES A DAY December 22, 2021 12:00am November 10, 2022 11:05am Comment on above: Take 1 tablet mornin g and bedtime May take one tablet in afternoon as needed for pain Per Dr. Martinez Handicap placard (11 sources) Start: 04-12-2023 Handicap placard Active 0 .Route .MEDSUPPLY April 12, 2023 1:00am April 12, 2028 1:00am Lifetime Start: 04-12-[address] Active 0 .Route .MEDSUPPLY April 12, 2023 1:00am Lifetime Start: 04-12-[address] Active 0 .Route .MEDSUPPLY April 12, 2023 12:00am Lifetime iv contrast (will be provided with radiology test) (1 source) Start: 04-10-2024 End: 04-11-2024 inject 1 dose intravenously once iv contrast (will be provided with radiology test) Indications: Cognitive impairment, mild, so stated MRI Brain Inject, intravenously, once for 1 dose.No IV access, insert saline lock prior to beginning of sedation, infusion, injection of imaging exam.Discontinue saline lock post exam. If Pt. has a central line or IVAD, may access for administration according to line specific nursing protocol.Once exam is complete flush line and de-access according to line specific nursing protocol in the MR contrast administration guidelines link 1 Each 04/10/2024 04/11/2024 Active latanoprost 0.05 mg/ml ophthalmic solution (20 sources) Prostaglandin Analog Start: 12-22-2021 Latanoprost 0.005 % Drops Active 1 NMA EACH EYE DAILY December 22, 2021 12:00am Start: 11-26-2016 take 1 drop(s) into the eye(s) once daily latanoprost (XALATAN) 0.005 % ophthalmic solution Use 1 Drop in both eyes once daily. 11/26/2016 Active Start: 11-26-2016 take 1 drop(s) into the eye(s) once daily latanoprost (XALATAN) 0.005 % ophthalmic solution Use 1 Drop in both eyes once daily. 0 11/26/2016 Active Comment on above: Use 1 Drop in both e yes once daily. lidocaine 0.05 mg/mg medicated patch (20 sources) Antiarrhythmic, Amide Local Anesthetic Start: 06-15-2024 Lidocaine 5 % adhesive patch,medicated Active 1 NMA TOPICAL Q24H June 15, 2024 1:00am Start: 08-16-2017 apply 1 dose transde rmal route every twelve hours lidocaine (LIDODERM) 5 % Apply 1 Patch as directed every 12 hours. 30 Patch 2 08/16/2017 Active Comment on above: Apply 1 Patch as dir ected every 12 hours. losartan potassium 25 mg oral tablet (20 sources) Angiotensin 2 Receptor Diony Start: 06-23-2023 End: 09-04-2024 take 1 tablet by mouth once daily Losartan 25 mg tablet Active 25 mg PO DAILY September 04, 2024 8:44am Start: 05-04-2023 End: 06-23-2023 Losartan 50 mg tablet Discon tinued 25 mg PO DAILY May 04, 2023 4:03pm June 23, 2023 10:17am Start: 05-04-2023 End: 06-23-2023 take 25 mg by mouth once daily Losartan Discontinued 2 5 MG PO DAILY May 04, 2023 4:03pm June 23, 2023 10:17am Start: 03-08-2023 End: 09-04-2023 take 1 tablet by mouth once daily losartan (COZAAR) 50 mg tablet Take 1 tablet by mouth once daily. 135 tablet 1 03/08/2023 Active Start: 02-08-2023 End: 08-07-2023 take 0.5 tablet by mouth once daily losartan (COZAAR) 50 mg tablet Take 0.5 tablets by mouth once daily. 135 tablet 1 02/08/2023 08/07/2023 Active Start: 11-11-2022 End: 04-12-2023 Losartan 50 mg tablet Discon tinued 25 mg PO DAILY November 11, 2022 12:00am April 12, 2023 3:27pm Start: 11-11-2022 End: 04-12-2023 take 25 mg by mouth once daily Losartan Discontinued 2 5 MG PO DAILY November 11, 2022 12:00am April 12, 2023 3:27pm Start: 06-02-2021 End: 03-06-2023 take 1.5 tablets by mouth once daily losartan (COZAAR) 50 mg tablet Take 1.5 tablets by mouth once daily. 135 tablet 1 09/07/2022 02/08/2023 Discontinued (Adjust Sig - Block E-Cancel) Start: 05-01-2020 End: 11-10-2022 Losartan 50 mg tablet Discon tinued 75 mg PO DAILY 135 90 October 22, 2021 12:08pm November 10, 2022 11:34am Start: 05-01-2020 End: 11-10-2022 take 75 mg by mouth once daily Losartan Discontinued 7 5 MG PO DAILY 135 90 October 22, 2021 11:08am November 10, 2022 10:34am Start: 08-03-2019 End: 05-01-2020 take 1 tablet by mouth once daily Losartan 50 mg tablet Discontinued 50 mg PO DAILY September 13, 2019 2:16pm May 01, 2020 11:36pm Start: 12-23-2017 End: 08-03-2019 take 1 tablet by mouth once daily Losartan 100 mg tablet Discontinued 100 mg PO DAILY December 23, 2017 12:00am August 03, 2019 2:22pm Start: 05-28-2017 End: 12-23-2017 take 2 tablets by mouth once daily Losartan 50 MG tablet Discontinued 100 mg PO DAILY May 28, 2017 1:00am December 23, 2017 3:33pm Start: 05-28-2017 End: 12-23-2017 take 100 mg by mouth once daily Losartan Discontinued 100 MG PO DAILY May 28, 2017 1:00am December 23, 2017 3:33pm Comment on above: Take 1.5 tablets by mouth once daily. Take 0.5 tablets by mouth once daily. Take 1 tablet by gee th once daily. melatonin 5 mg oral tablet (17 sources) Start: 3 take 1 tablet by mouth at bedtime as needed for sleep Melatonin 5 mg tablet Active 5 mg PO BEDTIME as needed for sleep November 10, 2022 12:00am mupirocin 0.02 mg/mg topical ointment (5 sources) RNA Synthetase Inhibitor Antibacterial Start: 5 End: mupirocin (BACTROBAN) 2 % ointment Apply 1 application to affected area three times a day for 14 days. 30 g 2 06/27/2024 07/11/2024 Active potassium chloride 20 meq extended release oral tablet (20 sources) Start: 4 End: 5 take 1 tablet by mouth twice daily Potassium Chloride 20 mEq tablet extended release Active 20 meq PO TWICE A DAY September 04, 2024 8:45am Start: 04-13-2023 End: 06-01-2023 take 1 tablet by mouth once daily Potassium Chloride 20 mEq tablet extended release Discontinued 20 meq PO DAILY April 13, 2023 1:00am June 01, 2023 10:49am Comment on above: Take 20 mEq by mouth once daily. traMADol hydrochloride 50 mg oral tablet (2 sources) Opioid Agonist Start: 06-18-2024 take 1 tablet by mouth every six hours as needed for pain Tramadol 50 mg Tablet Active 50 mg PO EVERY 6 HOURS NEEDED as needed for pain June 18, 2024 1:00am vit C,B-Iq-avgxw-lutein-zeax an (PRESERVISION AREDS-2) 250-90-40-1 mg (20 sources) vit C,M-Iq-dkrdu-lutei n-zeaxan (PRESERVISION AREDS-2) 250-90-40-1 mg Take 1 tablet by mouth twice daily at 6AM and 9PM. Active vit C,E-Zn-coppr -lutein-zeaxan (PRESERVISION AREDS-2) 250-90-40-1 mg Take 1 tablet by mouth twice daily at 6AM and 9PM. 0 Active Comment on above: Take 1 tablet by gee th twice daily at 6AM and 9PM. vitamin b12 1 mg oral tablet (20 sources) Vitamin B12 Start: 11-10-2022 take 2 tablets by mouth once daily Cyanocobalamin (Vitamin B-12) 1,000 mcg tablet Active 2000 ug PO DAILY November 10, 2022 11:03am Start: 11-10-2022 take 2000 ug by mout h once daily Cyanocobalamin (Vitamin B-12) Active 2000 MCG PO DAILY November 10, 2022 11:03am Start: 06-03-2020 End: 11-10-2022 take 1 tablet by mouth once daily Cyanocobalamin (Vitamin B-12) 1,000 MCG tablet Discontinued 1000 ug PO DAILY June 03, 2020 1:00am November 10, 2022 11:05am Vitamins A,C,X-Hbrn-Zffhxq (20 sources) Start: 04-12-2023 take 1 capsule by mouth twice daily Vitamins A,C,L-Sskm-Bjttrx Active 1 CAP PO TWICE A DAY April 12, 2023 3:27pm Start: 04-12-2023 take 1 capsule by mo uth twice daily Vitamins A,C,F-Nqvj-Wqxbfk Active 1 CAP PO TWICE A DAY April 12, 2023 2:27pm Start: 06-03-2020 End: 04-12-2023 Vitamins A,C,X-Axwh-Dlbyeh Discontinued 1 EACH PO TWICE A DAY June 03, 2020 1:00am April 12, 2023 3:27pm Start: 06-03-2020 End: 04-12-2023 Vitamins A,C,O-Offs-Fsyufh Discontinued 1 EACH PO TWICE A DAY June 03, 2020 12:00am April 12, 2023 2:27pm Start: 06-03-2020 Vitamins A,C,E -Zinc-Copper Active 1 EACH PO TWICE A DAY June 03, 2020 12:00am Start: 06-03-2020 Vitamins A,C,E -Zinc-Copper Active 1 EACH PO TWICE A DAY June 03, 2020 1:00am Vitamins A,C,M-Rtix-Koncdh 4 ,296 mcg-226 mg-90 mg capsule (2 sources) Start: 04-12-2023 Vitamins A,C,E -Zinc-Copper 4,296 mcg-226 mg-90 mg capsule Active 1 NMA PO TWICE A DAY April 12, 2023 3:27pm Completed/Discontinued Medications Medication Drug Class(es) Dates Sig (Normalized) Sig (Original) amoxicillin 875 mg / clavulanate 125 mg oral tablet (13 sources) Penicillin-class Antibacterial Start: 06-18-2024 End: 09-04-2024 Amoxicillin-Pot Clavulanate 875-125 mg tablet Discontinued 1 {tbl} PO Q12H June 18, 2024 1:00am September 04, 2024 8:42am Start: 04-03-2023 End: 04-13-2023 Amoxicillin-Pot Clavulanate 875-125 mg tablet Discontinued 1 {tbl} PO Q12H 20 April 03, 2023 1:00am April 12, 2023 1:00am April 13, 2023 1:05am Start: 04-03-2023 End: 04-13-2023 take 1 tablet by mouth every twelve hours Amoxicillin-Pot Clavulanate Discontinued 1 TABLET PO Q12H 20 April 03, 2023 1:00am April 13, 2023 1:05am biotin 10 mg disintegrating oral tablet (20 sources) Start: 05-28-2017 End: 06-15-2024 take 1 tablet by mouth once daily Biotin 10,000 MCG tablet,disintegrating Discontinued 19156 ug PO DAILY May 28, 2017 1:00am June 15, 2024 7:39pm take 5000 mg by mouth once daily BIOTIN ORAL Take 5,000 mg by mouth once daily. Active take 5000 mg by mouth once daily BIOTIN ORAL Take 5,000 mg by mouth once daily. 0 Active Comment on above: Take 5,000 mg by gee th once daily. cephalexin 250 mg oral capsule (8 sources) Cephalosporin Antibacterial Start: End: take 1 capsule by mouth every six hours Cephalexin 250 mg capsule Discontinued 250 mg PO EVERY 6 HOURS 28 7 February 12, 2024 12:00am February 18, 2024 12:00am February 19, 2024 12:14am Start: 07-21-2023 End: 07-31-2023 take 1 capsule by mouth three times daily cephALEXin (KEFLEX) 500 mg capsule Indications: Noninfected skin tear of left lower extremity, initial encounter Take 1 capsule by mouth three times a day for 10 days. 30 capsule 0 07/21/2023 07/31/2023 Active Start: 07-02-2023 End: 07-12-2023 take 1 capsule by mouth three times daily cephALEXin (KEFLEX) 500 mg capsule Take 1 capsule by mouth three times a day for 10 days. 30 capsule 0 07/02/2023 07/12/2023 Active Comment on above: Take 1 capsule by [facility] three times a day for 10 days. ciprofloxacin 500 mg oral tablet (4 sources) Quinolone Antimicrobial Start: 08-25-19 End: 02-04-20 take 1 tablet by mouth twice daily Ciprofloxacin Hcl 500 mg tablet Discontinued 500 mg PO TWICE A DAY August 25, 2023 12:00am February 04, 2024 1:29pm Start: 12-18-2021 End: 12-21-2021 take 1 tablet by mouth twice daily ciprofloxacin HCl (CIPRO) 250 mg tablet Take 1 tablet by mouth twice daily for 3 days. 6 tablet 0 12/18/2021 12/21/2021 Active Comment on above: Take 1 tablet by [facility] twice daily for 3 days. dexamethasone 4 mg oral tablet (2 sources) Corticosteroid Start: 06-18-19 End: 09-05-19 take 6 mg by mouth once daily Dexamethasone 4 mg Tablet Discontinued 6 mg PO DAILY June 18, 2024 1:00am September 04, 2024 8:42am docusate sodium 100 mg oral capsule (20 sources) Start: 04-24-20 End: 11-11-19 take 1 capsule by mouth twice daily Docusate Sodium 100 mg Capsule Discontinued 100 mg PO TWICE A DAY December 22, 2021 12:00am November 10, 2022 11:05am Comment on above: Take 1 capsule by mo [facility] twice daily as needed for Constipation. doxycycline hyclate 100 mg oral tablet (9 sources) Tetracycline-class Drug Start: 07-02-19 End: 07-02-19 take 1 tablet by mouth twice daily doxycycline (VIBRA-TABS) 100 mg tablet Take 1 tablet by mouth two times a day for 10 days. 20 tablet 0 07/02/2023 07/02/2023 Discontinued Start: 05-26-2023 End: 06-05-2023 take 1 capsule by mouth twice daily Doxycycline Hyclate 100 mg capsule Discontinued 100 mg PO TWICE A DAY 19 02May 26, 2023 1:00am June 04, 2023 1:00am June 05, 2023 1:39am Comment on above: Take 1 tablet by [facility] two times a day for 10 days. [id number] 0.3 ml EPINEPHrine 1 mg/ml auto-injector (2 sources) alpha-Adrenergic Agonist, beta-Adrenergic Agonist, Catecholamine Start: End: EPINEPHrine (EPIPEN 2-MISTY) 0.3 mg/0.3 mL auto-injector INJECT 0.3 ML INTRAMUSCULARLY NEEDED FOR REACTION SEEK EMERGENCY CARE AFTER USE 1 Each 1 05/27/2017 09/01/2021 Discontinued Comment on above: INJECT 0.3 ML INTRAM USCULARLY NEEDED FOR REACTION SEEK EMERGENCY CARE AFTER USE ergocalciferol 1.25 mg oral capsule (18 sources) Provitamin D2 Compound Start: End: take 1 capsule by mouth once daily Ergocalciferol (Vitamin D2) 50,000 UNIT capsule Discontinued 1000 U PO DAILY May 28, 2017 1:00am December 23, 2017 3:33pm Estradiol, Bulk, 100 % powd (5 sources) End: Estradiol, Bulk, 100 % powd 1 mg once daily. 0 09/24/2021 Discontinued (Discontinued by Patient) Estradiol, Bulk, 100 % powd 1 mg once daily. 0 Active Comment on above: 1 mg once daily. 12 hr guaiFENesin 1200 mg extended release oral tablet (2 sources) Start: End: 05-05-202 5 take 1 tablet by mouth twice daily, then take 1 tablet by mouth every twelve hours Guaifenesin (Mucus Relief Er) 1,200 mg Tablet Extended Release 12hr Discontinued 1200 mg PO TWICE A DAY June 18, 2024 1:00am September 04, 2024 8:42am hydrOXYzine hydrochloride 25 mg oral tablet (20 sources) Antihistamine Start: 2 End: 3 take 1 tablet by mouth at bedtime as needed Hydroxyzine Hcl 25 mg tablet Discontinued 25 mg PO AT BEDTIME as needed for INSOMNIA October 22, 2021 12:00am November 10, 2022 11:02am Start: 07-07-2021 End: 09-07-2022 take 1 tablet by mouth every twenty-four hours as needed hydrOXYzine HCl (ATARAX) 50 mg tablet Take 1 tablet by mouth at bedtime as needed for anxiety (insomnia). For insomnia 90 tablet 2 07/24/2022 09/07/2022 Discontinued Start: 06-03-2020 End: 09-15-2021 take 1 tablet by mouth at bedtime as needed for sleep Hydroxyzine Hcl 25 MG tablet Discontinued 25 mg PO AT BEDTIME as needed for Sleep June 03, 2020 1:00am September 15, 2021 11:16am Start: 10-04-2018 End: 05-16-2019 take 1 capsule by mouth at bedtime as needed Hydroxyzine Pamoate 25 mg capsule Discontinued 25 mg PO AT BEDTIME as needed for Insomnia 30 October 04, 2018 12:00am May 16, 2019 2:21pm Comment on above: Take 1 tablet by gee th at bedtime as needed for anxiety (insomnia). For insomnia latanoprostene bunod 0.24 mg/ml ophthalmic solution (18 sources) Start: 06-03-19 End: 11-20-19 take 5 mL into the eye(s) once daily Latanoprostene Bunod 5 ML drops Discontinued 1 NMA EACH EYE DAILY June 03, 2020 1:00am November 19, 2020 1:22pm Start: 06-03-2020 End: 11-19-2020 Latanoprostene Bunod Discont inued 1 DRP EACH EYE DAILY June 03, 2020 1:00am November 19, 2020 1:22pm levocetirizine dihydrochloride 5 mg oral tablet (18 sources) Histamine-1 Receptor Antagonist Start: 05-16-2020 End: 09-15-2021 take 1 tablet by mouth once daily Levocetirizine 5 mg tablet Discontinued 5 mg PO DAILY May 16, 2020 1:00am September 15, 2021 11:16am levoFLOXacin 750 mg oral tablet (18 sources) Quinolone Antimicrobial Start: 06-05-2020 End: 06-11-2020 take 1 tablet by mouth once daily Levofloxacin 750 MG tablet Discontinued 750 mg PO DAILY 10 06June 05, 2020 1:00am June 10, 2020 1:00am June 11, 2020 1:03am magnesium carbonate (2 sources) End: 09-01-2021 take 400 mg by mouth once daily MAGNESIUM CARBONATE ORAL Take 400 mg by mouth once daily. 0 09/01/2021 Discontinued take 400 mg by mouth once daily MAGNESIUM CARBONATE ORAL Take 400 mg by mouth once daily. 0 Active Comment on above: Take 400 mg by mouth once daily. methylPREDNISolone 4 mg oral tablet (20 sources) Corticosteroid Start: 2022 End: 2022 take 1 tablet by mouth once Methylprednisolone (Medrol (Misty)) 4 mg tablets,dose pack Discontinued 4 mg PO per package directions 21 10April 03, 2023 1:00am April 08, 2023 1:00am April 09, 2023 1:05am Start: 09-15-2021 End: 09-20-2021 take 1 tablet by mouth once Methylprednisolone (Medrol (Misty)) 4 mg tablets,dose pack Discontinued 4 mg PO per package directions 20 09September 15, 2021 12:00am September 19, 2021 12:00am September 20, 2021 12:05am metoprolol tartrate 50 mg oral tablet (10 sources) beta-Adrenergic Diony Start: 05-13-2023 End: 05-13-2023 take 1 tablet by mouth twice daily Metoprolol Tartrate 50 mg tablet Discontinued 50 mg PO TWICE A DAY May 13, 2023 1:00am May 13, 2023 3:17pm miconazole nitrate 20 mg/ml topical cream (2 sources) Azole Antifungal Start: 04-09-2021 End: 09-01-2021 miconazole (MONISTAT-DERM,JORDYN ) 2 % cream Apply to affected area twice daily. 30 g 0 04/09/2021 09/01/2021 Discontinued Comment on above: Apply to affected ar ea twice daily. nitrofurantoin, macrocrystals 25 mg / nitrofurantoin, monohydrate 75 mg oral capsule (17 sources) Nitrofuran Antibacterial Start: 04-05-2024 End: 04-12-2024 take 1 capsule by mouth twice daily at mealtime nitrofurantoin monohydrate and macrocrystal (MACROBID) 100 mg capsule Indications: Urinary frequency Take 1 capsule by mouth two times a day with meals for 7 days. 14 capsule 04/05/2024 04/10/2024 Discontinued (Course of therapy completed) Start: 05-14-2023 End: 05-21-2023 take 1 capsule by mouth every twelve hours at mealtime Nitrofurantoin Monohyd/M-Cryst 100 mg capsule Discontinued 1 NMA PO Q12H 14 7 May 14, 2023 1:00am May 20, 2023 1:00am May 21, 2023 1:05am administer with a meal/food; swallow whole; do not open, crush, dissolve , or chew Start: 10-16-2022 End: 10-21-2022 take 1 capsule by mouth twice daily at mealtime nitrofurantoin monohydrate and macrocrystal (MACROBID) 100 mg capsule Take 1 capsule by mouth twice daily with meals for 5 days. 10 capsule 0 10/16/2022 10/21/2022 Active Start: 12-04-2021 End: 12-09-2021 take 1 capsule by mouth twice daily at mealtime nitrofurantoin monohydrate and macrocrystal (MACROBID) 100 mg capsule Take 1 capsule by mouth twice daily with meals for 5 days. 10 capsule 0 12/04/2021 12/09/2021 Active Comment on above: Take 1 capsule by [facility] twice daily with meals for 5 days. 0.5 ml omalizumab 150 mg/ml prefilled syringe (20 sources) Anti-IgE Start: 10-05-2019 End: 10-22-2021 Omalizumab (Xolair) 75 mg/0.5 mL syringe Discontinued 150 mg SC every 4 weeks October 05, 2019 12:00am October 22, 2021 11:44am Start: 05-28-2017 End: 09-01-2021 Omalizumab 150 MG/1.2 ML rec on soln Discontinued 150 mg SQ EVERY MONTH May 28, 2017 1:00am May 16, 2019 2:21pm Comment on above: Inject 2.4 mL (300 m g) subcutaneously once every month. 24 hr oxybutynin chloride 5 mg extended release oral tablet (2 sources) Cholinergic Muscarinic Antagonist Start: 04-09-20 21 End: 09-02-19 22 take 1 tablet by mouth once daily oxybutynin XL (DITROPAN XL) 5 mg 24 hr tablet Take 1 tablet by mouth once daily. 30 tablet 3 04/09/2021 09/01/2021 Discontinued Comment on above: Take 1 tablet by gee th once daily. pantoprazole 40 mg delayed release oral tablet (20 sources) Proton Pump Inhibitor Start: 03-15-20 23 End: 09-13-19 24 take 1 tablet by mouth once daily before breakfast pantoprazole DR (PROTONIX) 40 mg tablet Take 1 tablet by mouth daily before breakfast. Take on empty stomach, 1/2 hr before meal. 0 03/15/2023 09/13/2023 Discontinued (Course of therapy completed) Start: 02-17-2023 End: 06-01-2023 take 1 tablet by mouth every twelve hours Pantoprazole 40 mg tablet,delayed release (DR/EC) Discontinued 40 mg PO Q12H 168 84 February 17, 2023 12:00am June 01, 2023 10:11am Comment on above: Take 1 tablet by gee th daily before breakfast. Take on empty stomach, 1/2 hr before meal. sucralfate 1000 mg oral tablet (20 sources) Aluminum Complex Start: 4 End: take 1 tablet by mouth once Sucralfate 1 gram tablet Discontinued 1 g PO ONCE February 04, 2024 12:00am June 15, 2024 7:41pm Start: 10-04-2018 End: 10-05-2018 take 1 tablet by mouth every six hours Sucralfate (Carafate) 1 gram tablet Discontinued 1 g PO EVERY 6 HOURS October 04, 2018 12:00am October 05, 2018 1:39pm sulfamethoxazole 800 mg / trimethoprim 160 mg oral tablet (4 sources) Dihydrofolate Reductase Inhibitor Antibacterial, Sulfonamide Antimicrobial Start: 11-19-2023 End: 11-26-2023 Sulfamethoxazole-Trimethopri m (Bactrim Ds) 800-160 mg tablet Discontinued 1 {tbl} PO Q12H 14 7 November 19, 2023 1:15pm November 25, 2023 12:00am November 26, 2023 12:04am Timolol Maleate (18 sources) beta-Adrenergic Diony Start: 10-05-2019 End: 09-15-2021 Timolol Maleate 0.5 % drops Discontinued 1 NMA OPHTHALMIC TWICE A DAY October 05, 2019 12:00am September 15, 2021 11:16am Start: 10-05-2019 End: 09-15-2021 Timolol Maleate Discontinued 1 DRP OPHTHALMIC TWICE A DAY October 04, 2019 11:00pm September 15, 2021 10:16am Start: 10-05-2019 End: 09-15-2021 Timolol Maleate Discontinued 1 DRP OPHTHALMIC TWICE A DAY October 05, 2019 12:00am September 15, 2021 11:16am Vit C,E-Tj-Kwkvt-Lutein-Zeax an (16 sources) Start: 05-28-2017 End: 12-26-2018 Vit C,N-Nn-Bnkpe-Lutein-Zeax an Discontinued 1 EACH PO TWICE A DAY May 28, 2017 12:00am December 26, 2018 1:03pm Start: 05-28-2017 End: 12-26-2018 Vit C,U-Mz-Kamkn-Lutein-Zeax an Discontinued 1 EACH PO TWICE A DAY May 28, 2017 1:00am December 26, 2018 2:03pm vit C,O-Kx-cmmyl-lutein-zeax an (PRESERVISION AREDS 2) [id number] cj-uixc-ib-mg cap (11 sources) vit C,E-Zn-coppr -lutein-zeaxan (PRESERVISION AREDS 2) [id number] bu-bpxj-kc-mg cap Take 1 tablet by mouth twice daily at 6AM and 9PM. 0 Active Comment on above: Take 1 tablet by gee twice daily at 6AM and 9PM. Vit C,D-Np-Pctdj-Lutein-Zeax an 1 EACH capsule (2 sources) Star t: 05-04 18 End: 12-02 19 take 1 capsule by mouth twice daily Vit C,F-Fs-Dzwjx-Lutein-Zeaxan 1 EACH capsule Discontinued 1 NMA PO TWICE A DAY May 28, 2017 1:00am December 26, 2018 2:03pm Vitamins A,C,H-Mlwj-Uworlg 1 EACH capsule (2 sources) Star t: 05-22 21 End: 04-02 23 take 1 capsule by mouth twice daily Vitamins A,C,Q-Bcbx-Xuwaub 1 EACH capsule Discontinued 1 NMA PO TWICE A DAY June 03, 2020 1:00am April 12, 2023 3:27pm Problems Active Problems Problem Classification Problem Date Documented Da te Episodic/Chronic Abdominal pain (20 sources) Left lower quadrant pain; Translations: [Left lower quadrant pain] Episodic Cardiac dysrhythmias (20 sources) Premature atrial contraction; Translations: [Atrial premature depolarization] Onset: 3 10-04-2018 Chronic Comment on above: Noted 04/12/2023; Chronic kidney disease (20 sources) Chronic kidney disease stage 3A ; Translations: [Chronic kidney disease, stage 3a (HCC)] Onset: 4 Chronic Chronic kidney disease (1 source) Chronic kidney disease; Translations: [Stage 3 chronic kidney disease, unspecified whether stage 3a or 3b CKD (HCC)] Onset: 5 Deficiency and other anemia (2 sources) Anemia; Translations: [Anemia, unspecified] 08-10-2024 Episodic Comment on above: 15 YRS AGO Deficiency and other anemia (1 source) Anemia, unspecified; Translations: [Anemia, unspecified] Onset: 5 Episodic Delirium, dementia, and amnestic and other cognitive disorders (3 sources) Senile asthenia; Translations: [Age-related physical debility] Onset: 5 06-27-2024 Chronic Disorders of lipid metabolism (20 sources) Hyperlipidemia; Translations: [Hyperlipidemia, unspecified] Onset: 7 08-14-2016 Chronic Esophageal disorders (20 sources) Gastroesophageal reflux disease; Translations: [Gastro-esophageal reflux disease without esophagitis] 08-14-2016 Chronic Esophageal disorders (1 source) Esophageal disorders; Translations: [Gastroesophageal reflux disease with esophagitis, unspecified whether hemorrhage] Onset: 7 Essential hypertension (20 sources) Hypertensive disorder; Translations: [Essential (primary) hypertension] Onset: 0 11-14-2019 Chronic Comment on above: CONTROLLED WITH MEDS Fluid and electrolyte disorders (2 sources) Hypokalemia; Translations: [Hypokalemia] 04-13-2024 Episodic Fracture of upper limb (1 source) Closed fracture of head of radius; Translations: [Nondisplaced fracture of head of right radius, initial encounter for closed fracture] 06-27-2024 Episodic Genitourinary symptoms and ill-defined conditions (20 sources) Incontinence; Translations: [Mixed incontinence] Onset: 1 04-09-2021 Chronic Genitourinary symptoms and ill-defined conditions (19 sources) Dysuria; Translations: [Dysuria] Episodic Glaucoma (20 sources) Glaucoma; Translations: [Unspecified glaucoma] Onset: 4 09-15-2023 Chronic Headache; including migraine (1 source) Headache; Translations: [Headache, unspecified headache type] 01-26-2024 Episodic Headache; including migraine (1 source) Headache; including migraine; Translations: [Headache, unspecified headache type] Onset: 4 Heart valve disorders (20 sources) Mitral valve regurgitation; Translations: [Nonrheumatic mitral (valve) insufficiency] Onset: 5 02-15-2018 Chronic Heart valve disorders (20 sources) Heart murmur; Translations: [Cardiac murmur, unspecified] 08-14-2016 Episodic Malaise and fatigue (9 sources) Fatigue; Translations: [Other fatigue] 06-01-2023 Episodic Miscellaneous mental health disorders (1 source) Primary insomnia; Translations: [Primary insomnia] 09-15-2023 Chronic Nutritional deficiencies (3 sources) Vitamin D deficiency; Translations: [Vitamin D deficiency, unspecified] Onset: 5 06-27-2024 Chronic Occlusion or stenosis of precerebral arteries (3 sources) Bilateral stenosis of carotid arteries; Translations: [Occlusion and stenosis of bilateral carotid arteries] Chronic Open wounds of extremities (2 sources) Tear of skin; Translations: [Laceration without foreign body of right forearm, initial encounter] 06-26-2024 Episodic Osteoarthritis (18 sources) Arthritis of right foot; Translations: [Primary osteoarthritis, right ankle and foot] 09-15-2021 Chronic Other aftercare (2 sources) Drug therapy finding; Translations: [exterminator helper (current) use of anticoagulants] 01-10-2024 Episodic Other aftercare (1 source) Long-term current use of anticoagulant; Translations: [long-term (current) use of anticoagulants] 09-09-2024 Episodic Other bone disease and musculoskeletal deformities (1 source) Scapulalgia; Translations: [Other specified disorders of bone, shoulder] Episodic Other circulatory disease (20 sources) Disorder of carotid artery; Translations: [Disorder of arteries and arterioles, unspecified] Onset: 8 11-20-2017 Chronic Other circulatory disease (1 source) Other specified peripheral vascular diseases; Translations: [Other specified peripheral vascular diseases] Onset: Chronic Other connective tissue disease (1 source) Plantar fasciitis; Translations: [Plantar fascial fibromatosis] Episodic Other connective tissue disease (18 sources) Foot pain; Translations: [Pain in right foot] 09-15-2021 Episodic Other connective tissue disease (1 source) Pain in right heel; Translations: [Pain in right foot] 07-21-2023 Episodic Other connective tissue disease (1 source) Pain of left lower leg; Translations: [Pain in left lower leg] 11-30-2023 Episodic Other diseases of bladder and urethra (20 sources) Overactive bladder; Translations: [Overactive bladder] Onset: 1 04-09-2021 Chronic Other diseases of kidney and ureters (1 source) Acquired renal cystic disease; Translations: [Cyst of kidney, acquired] 09-15-2023 Episodic Other diseases of kidney and ureters (1 source) Acute renal insufficiency; Translations: [Disorder of kidney and ureter, unspecified] 09-09-2024 Episodic Other gastrointestinal disorders (13 sources) Chronic constipation; Translations: [Other constipation] 03-08-2023 Episodic Other gastrointestinal disorders (12 sources) Diarrhea; Translations: [Diarrhea, unspecified] 03-08-2023 Episodic Other gastrointestinal disorders (6 sources) Diarrhea, unspecified; Translations: [Diarrhea] 03-08-2023 Episodic Other gastrointestinal disorders (6 sources) Other constipation; Translations: [Constipation, unspecified] 03-08-2023 Episodic Other gastrointestinal disorders (10 sources) Acute diarrhea; Translations: [Diarrhea, unspecified] 05-17-2023 Episodic Other gastrointestinal disorders (2 sources) Constipation; Translations: [Constipation, unspecified] 08-10-2024 Episodic Other hereditary and degenerative nervous system conditions (2 sources) Impaired cognition; Translations: [Mild cognitive impairment, so stated] 04-10-2024 Chronic Other hereditary and degenerative nervous system conditions (1 source) Mild cognitive impairment, so stated; Translations: [Cognitive impairment, mild, so stated] Onset: Chronic Other injuries and conditions due to external causes (20 sources) Closed injury of head; Translations: [Unspecified injury of head, initial encounter] 10-19-2018 Episodic Other injuries and conditions due to external causes (8 sources) Injury of head; Translations: [Unspecified injury of head, initial encounter] 07-02-2023 Episodic Other injuries and conditions due to external causes (1 source) Multiple lacerations; Translations: [Other injury of unspecified body region, initial encounter] 06-27-2024 Episodic Other injuries and conditions due to external causes (1 source) At high risk for fall; Translations: [History of falling] 06-27-2024 Episodic Other injuries and conditions due to external causes (1 source) Unspecified injury of head, initial encounter; Translations: [Unspecified injury of head, initial encounter] Onset: Episodic Other lower respiratory disease (1 source) Cough; Translations: [Acute cough] 03-31-2023 Episodic Other lower respiratory disease (12 sources) Other forms of dyspnea; Translations: [Other respiratory abnormalities] 04-12-2023 Episodic Other lower respiratory disease (1 source) Hypoxia; Translations: [Hypoxemia] 06-27-2024 Episodic Other nervous system disorders (1 source) Visuospatial deficit; Translations: [Visuospatial deficit] 05-16-2024 Chronic Other nervous system disorders (2 sources) Impairment of balance; Translations: [Other abnormalities of gait and mobility] 09-10-2023 Episodic Other nervous system disorders (2 sources) Impaired cognition; Translations: [Other symptoms and signs involving cognitive functions and awareness] 04-12-2024 Episodic Other non-traumatic joint disorders (2 sources) Hip pain; Translations: [Pain in left hip] 01-26-2024 Episodic Other non-traumatic joint disorders (4 sources) Pain in elbow; Translations: [Pain in right elbow] 06-27-2024 Episodic Other nutritional; endocrine; and metabolic disorders (2 sources) Weight decreased; Translations: [Abnormal weight loss] 08-10-2024 Episodic Other screening for suspected conditions (not mental disorders or infectious disease) (20 sources) CT of abdomen abnormal; Translations: [Abnormal findings on diagnostic imaging of other abdominal regions, including retroperitoneum] 11-10-2022 Episodic Other skin disorders (1 source) Loss of hair; Translations: [Nonscarring hair loss, unspecified] Episodic Other upper respiratory disease (1 source) Seasonal allergy; Translations: [Other seasonal allergic rhinitis] 09-02-2023 Chronic Other upper respiratory disease (1 source) Other specified disorders of nose and nasal sinuses; Translations: [Other disease of nasal cavity and sinuses] 09-02-2023 Episodic Other upper respiratory disease (1 source) Bleeding from nose; Translations: [Epistaxis] 09-02-2023 Episodic Other upper respiratory infections (17 sources) Acute sinusitis; Translations: [Acute sinusitis, unspecified] 04-03-2023 Episodic Pulmonary heart disease (20 sources) Pulmonary arterial hypertension; Translations: [Secondary pulmonary arterial hypertension] Onset: Chronic Residual codes; unclassified (20 sources) Insomnia; Translations: [Insomnia, unspecified] 08-14-2016 Episodic Residual codes; unclassified (1 source) Amnesia; Translations: [Other amnesia] 04-05-2024 Episodic Residual codes; unclassified (3 sources) Hallucinations; Translations: [Hallucinations, unspecified] 04-05-2024 Episodic Residual codes; unclassified (1 source) Confusional state; Translations: [Disorientation, unspecified] 04-05-2024 Episodic Residual codes; unclassified (1 source) Memory impairment; Translations: [Other amnesia] 06-27-2024 Episodic Residual codes; unclassified (1 source) Altered mental status; Translations: [Altered mental status, unspecified] 09-09-2024 Episodic Residual codes; unclassified (1 source) Disorientation, unspecified; Translations: [Disorientation, unspecified] Onset: Episodic Respiratory failure; insufficiency; arrest (adult) (5 sources) Acute hypoxemic respiratory failure; Translations: [Acute respiratory failure with hypoxia] Onset: 5 06-26-2024 Episodic Sprains and strains (20 sources) Strain of neck muscle; Translations: [Strain of muscle, fascia and tendon at neck level, initial encounter] 10-19-2018 Episodic Superficial injury; contusion (10 sources) Hematoma of scalp; Translations: [Contusion of scalp, subsequent encounter] Onset: 5 07-02-2024 Episodic Viral infection (20 sources) Postherpetic neuralgia; Translations: [Other postherpetic nervous system involvement] 08-14-2016 Episodic Viral infection (3 sources) COVID-19; Translations: [COVID-19] Onset: Past or Other Problems Problem Classification Problem Date Documented Da te Episodic/Chronic Allergic reactions (20 sources) Chronic urticaria; Translations: [Other urticaria] Onset: 05-13-2016 05-13-2016 Episodic Blindness and vision defects (2 sources) Visual hallucinations; Translations: [Visual hallucinations] Onset: 05-16-2024 05-16-2024 Episodic Conditions associated with dizziness or vertigo (1 source) Dizziness and giddiness; Translations: [Dizziness and giddiness] Onset: 04-17-2024 Episodic Diseases of mouth; excluding dental (2 sources) Atrophy of tongue papillae; Translations: [Atrophy of tongue papillae] Onset: 05-16-2024 05-16-2024 Episodic E Codes: Fall (20 sources) Fall; Translations: [Unspecified fall, initial encounter] Onset: 12-19-2018 12-19-2018 Episodic E Codes: Place of occurrence (1 source) Unspecified place in unspecified non-institutional (private) residence as the place of occurrence of the external cause; Translations: [Fall in home, subsequent encounter] Onset: 01-26-2024 Episodic Gastrointestinal hemorrhage (1 source) Melena; Translations: [Melena] Onset: 02-04-2024 Episodic Immunizations and screening for infectious disease (2 sources) Patient encounter status; Translations: [Encounter for immunization] Onset: 11-19-2023 03-15-2023 Episodic Melanomas of skin (20 sources) Malignant melanoma; Translations: [Malignant melanoma of skin, unspecified] Resolved: 09-07-2022 12-04-2016 Chronic Open wounds of extremities (20 sources) Open wound of left hand; Translations: [Laceration without foreign body of left hand, initial encounter] Onset: 11-19-2023 06-30-2023 Episodic Other injuries and conditions due to external causes (1 source) Unspecified injury of head, subsequent encounter; Translations: [Injury of head, subsequent encounter] Onset: 01-26-2024 Episodic Other lower respiratory disease (20 sources) Dyspnea on exertion; Translations: [Dyspnea, unspecified] Onset: 11-20-2017 11-20-2017 Episodic Other nervous system disorders (20 sources) Abnormal gait; Translations: [Unsteadiness on feet] Onset: 05-04-2024 08-17-2023 Episodic Other nervous system disorders (1 source) Other symptoms and signs involving cognitive functions and awareness; Translations: [Impaired cognition] Onset: 05-16-2024 Episodic Other nervous system disorders (1 source) Unspecified abnormalities of gait and mobility; Translations: [Gait disturbance] Onset: 04-10-2024 Episodic Other non-traumatic joint disorders (1 source) Pain in right elbow; Translations: [Elbow pain, right] Onset: 06-27-2024 Episodic Other non-traumatic joint disorders (1 source) Pain in left hip; Translations: [Left hip pain] Onset: 01-26-2024 Episodic Pneumonia (except that caused by tuberculosis or sexually transmitted disease) (3 sources) Bacterial pneumonia; Translations: [Unspecified bacterial pneumonia] Onset: 06-27-2024 06-27-2024 Episodic Residual codes; unclassified (1 source) Other amnesia; Translations: [Memory impairment] Onset: 06-27-2024 Episodic Residual codes; unclassified (1 source) Hallucinations, unspecified; Translations: [Hallucinations] Onset: 05-16-2024 Episodic Skin and subcutaneous tissue infections (1 source) Local infection of the skin and subcutaneous tissue, unspecified; Translations: [Local infection of the skin and subcutaneous tissue, unspecified] Onset: 11-19-2023 Episodic Spondylosis; intervertebral disc disorders; other back problems (8 sources) Acute back pain with sciatica; Translations: [Lumbago with sciatica, left side] Onset: 01-26-2024 01-26-2024 Episodic Urinary tract infections (20 sources) Recurrent urinary tract infection; Translations: [Urinary tract infection, site not specified] Onset: 05-10-2024 Episodic Results Test Name Value Interpretation Reference Range Facility [facility] JIL DÍAZ ([id number]) 1940 F Date Time Provider Department 12/19/24 TONY SOARES During your visit today, we recorded the following information about you: Marguerite Valdes LPN 12/19/2024 9:19 AM Signed Cornelia with [employer] [employer] is calling to check on status of Passport Waiver form that was faxed to the office on 12/07 and 12/12. Please call Cornelia on status of form. BRIA Tinoco Lindsey, MA 12/26/2024 8:53 AM Signed Faxed with received confirmation on 12/19/24. Mellissa Palma MA Allergies As of Date: 12/19/2024 Noted Allergy Reaction OXYCODONE 03/11/2017 9 - Itching Date Reviewed: 11/28/2024 Reviewed by: Tania Arreaga MA - Fully Assessed Reason for Visit: Passport Waiver [Other] Prescriptions as of 12/26/2024 - atorvastatin (LIPITOR) 20 mg tablet Take 1 tablet by mouth once daily. - famotidine (PEPCID) 40 mg tablet Take 1 tablet by mouth two times a day. - apixaban (ELIQUIS) 5 mg tab(s) Take 5 mg by mouth two times a day. - potassium chloride 20 mEq TbER Take 20 mEq by mouth once daily. - furosemide (LASIX) 40 mg tablet Take 40 mg by mouth once daily. - dilTIAZem CD (CARDIZEM CD, CARTIA XT) 120 mg 24 hr capsule Take 1 capsule by mouth once daily. - losartan (COZAAR) 50 mg tablet Take 1 tablet by mouth once daily. - dorzolamide-timolol (COSOPT) 22.3-6.8 mg/mL ophthalmic solution Use 1 Drop in both eyes twice daily. - brimonidine (ALPHAGAN) 0.2 % ophthalmic solution - gabapentin (NEURONTIN) 300 mg capsule Take 1 tablet morning and bedtime May take one tablet in afternoon as needed for pain Per Dr. Martinez - lidocaine (LIDODERM) 5 % Apply 1 Patch as directed every 12 hours. - latanoprost (XALATAN) 0.005 % ophthalmic solution Use 1 Drop in both eyes once daily. - vit C,I-Wa-zgnau-lutein-z eaxan (PRESERVISION AREDS-2) 250-90-40-1 mg Take 1 tablet by mouth twice daily at 6AM and 9PM. - BIOTIN ORAL Take 5,000 mg by mouth once daily. - Cholecalciferol, Vitamin D3, 25 mcg (1,000 unit) cap Take 1,000 Units by mouth once daily. - CYANOCOBALAMIN, VITAMIN B-12, (VITAMIN B-12 ORAL) Take 1,000 mg by mouth once daily. Problem List As Of Date 12/19/2024 Noted Resolved Chronic urticaria [L50.8] 05/13/2016 Hypertension [I10] Insomnia [G47.00] Post herpetic neuralgia [B02.29] Heart murmur [R01.1] GERD (gastroesophageal reflux disease) [K21.9] Hyperlipidemia [E78.5] Melanoma (HCC) [C43.9] 09/07/2022 VILLEGAS (dyspnea on exertion) [R06.09] 11/20/2017 Bilateral carotid artery disease (HCC) [I77.9] 11/20/2017 Mitral regurgitation [I34.0] Fall [W19.XXXA] 12/19/2018 Aortic stenosis [I35.0] OAB (overactive bladder) [N32.81] 04/09/2021 Mixed urge and stress incontinence [N39.46] 04/09/2021 Pulmonary arterial hypertension (HCC) [I27.21] 09/07/2022 Chronic kidney disease, stage 3a (HCC) [N18.31] 09/13/2023 Atrial fibrillation (HCC) [I48.91] 04/21/2023 Glaucoma [H40.9] 09/15/2023 Gait disturbance [R26.9] 05/04/2024 Encounter Status:Closed by MELLISSA PALMA on 12/26/24 [facility] CNOVon 11-28-2024 CNOV Office Visit (FAMPWS ) JIL DÍAZ ([id number]) 1940 F Date Time Provider Department 11/28/24 8:00 AM RAHUL ESPOSITO During your visit today, we recorded the following information about you: Pulse Blood pressure Weight 50/minute 134/79 57 kg Rahul Esposito APRN.CNP 11/28/2024 9:22 AM Signed Jil Tomasa Díaz is a 84 year old female here for a Medicare wellness visit. Medicare Health Risk Assessment General Health Fair Exercise: Minutes/Day 0 min Exercise: Days/Week 0 days Alcohol: Daily Use Never Alcohol: Drinks/Day Patient does not drink Alcohol: 6 or more drinks Never Feel off balance Yes Concerns: Teeth/Dentures No Concerns: Sexual function Decline Troubled by feelings Irritable Frequency: Eating healthy diet Several days ADLs requiring help Grocery shopping; Cooking; Handling finances; Taking medications; Driving Safety precautions in home/vehicle Yes Smoke, vape, chews tobacco No Difficulty hearing Yes Difficulty seeing No Current Providers Specialists: I have reviewed specialist-related care of the patient in the medical record. Current care team: Patient Care Team: Tony Soares MD as PCP - General (Family Medicine) Felton Yancey MD (Pain Management) Ender Lucio MD (Dermatology) Romie Cueto MD (Cardiology) Levy Ibarra MD as Physician (Cardiology) PodlogDrea cox APRN.CNP as Photovoltaic Fabrication Technician (Family Medicine) Knoble, Rahul, HYDROCHLORIC ACID OPERATOR.ASSISTED LIVING CARE MANAGER as Photovoltaic Fabrication Technician (Family Medicine) Medical/Family history review Reviewed and updated problem list, medical/surgical/fami ly/social history, medications, and allergies. Opioid use review Opioid Medications (last 90 days) No data to display Anxiety/Depression screening CAMERON-7 Score: 5 (Mild Anxiety) Recommendation: no further intervention at this time Cognitive screening Functional Observation Was the patient's Timed Up AND Go test unsteady or >= 12 seconds? No Advance Care Planning Surrogate decision maker and/or advance care plan documented Measurements BP 176/84 Pulse (!) 50 Wt 57 kg (125 lb 10.6 oz) BMI 21.57 kg/m? Vision Screening: Follows with optometry/ophthalmolo gy Assessment/Plan Medicare annual wellness visit, subsequent (Z00.00) - Counseled on healthy diet and regular exercise - Fall avoidance information provided - Personalized prevention plan provided - Discussed need for and benefit of weight loss. BMI 21.57 kg/(m2) Chief Complaint Patient presents with: Physical HPI Jil Díaz is a 84 year old female who presents here today for Above Complaints.. Patient presents for annual exam. [facility] and is requesting recommendation for alternative. Past medical history, appointments, medications, allergies reviewed. Previous Medical History PAST MEDICAL HISTORY Diagnosis Date Aortic stenosis moderate Atrial fibrillation (HCC) 04/21/2023 Basal cell carcinoma Cataracts, bilateral s/p removal Chronic kidney disease (CKD), stage III (moderate) (HCC) Chronic urticaria seeing Dr. Card Concussion 05/2015 fell off step stool COVID-19 GERD (gastroesophageal reflux disease) with esophagitis on EGD Glaucoma Hamstring strain bilateral legs Heart murmur History of shingles 2016 Hyperlipidemia Hypertension Insomnia Macular degeneration Melanoma (HCC) Memory impairment Mitral regurgitation Dr. Ibarra Post herpetic neuralgia lidocaine patch Premature contractions, atrial PUD (peptic ulcer disease) 01/2023 Renal cysts, acquired, bilateral Visual hallucinations Previous Surgical History PAST SURGICAL HISTORY Procedure Laterality Date APPENDECTOMY 1970 CATARACT EXTRACTION HX Bilateral 2012 CATARACT SURGERY, COMPLEX Bilateral R 10/2012-L 12/2012 CHOLECYSTECTOMY 2002 COLONOSCOPY 12/11/2015 10mm adenomatous polyp found, repeat in 3 years COLONOSCOPY FLX DX W/COLLJ SPEC WHEN PFRMD 02/15/2019 Colonoscopy. repeat in 5 years. EGD 12/11/2015 post gastric ulcer deformity noted in pre-pyloric region and antrum. ESOPHAGOGASTRODUODENO SCOPY TRANSORAL DIAGNOSTIC 02/15/2019 EGD HEMORRHOIDECTOMY 2010 MELANOMA [...] on File Prior to Visit Medication Sig atorvastatin (LIPITOR) 20 mg tablet Take 1 tablet by mouth once daily. famotidine (PEPCID) 40 mg t (more content not included)... Normal [facility] Gastroenterology Visit Repor ton 09-11-2024 Gastroenterology Visit Report [facility] Gastroenterology [address] [place] [address] OFFICE VISIT Date of Service: 09/11/24 MR#: [id number] Acct: [id number] Name: JIL DÍAZ Rep #: [id number] : 1940 Provider: JAGJIT garber Age/Sex: 84/F [place] [facility] [place] Status: Signed Intake Vital Signs 08/10/24 08:07 09/09/24 17:49 09/11/24 08:11 Height 5 ft 4 in 5 ft 4 in Weight: 134 lb 2 oz BP 156/74 H Blood Pressure Location Lt brachial Position Sitting Respiration 17 Pulse 77 Pulse Source Monitor Temp 97.5 F L Temp Source Oral Pulse Oximetry (%) 94 Oxygen Delivery Method room air Intake Visit Reasons: 1 M FU Chief Complaint: F/U Allergies oxycodone (From Percocet) Adverse Reaction (Verified 09/09/24 17:49) Upset Stomach Medications ???Medication ???Instructions ???Recorded ???Confirmed ???Type famotidine 40 mg tablet 40 mg PO BID 05/28/17 09/11/24 His tory dorzolamide 22.3 mg-timolol 6.8 1 drp EACH EYE BID eye heal 09/11/24 History mg/mL eye drops latanoprost 0.005 % eye drops 1 drp EACH EYE DAILY eye health 09/11/24 History brimonidine 0.2 % eye drops 2 drp EACH EYE BID 11/10/22 History cholecalciferol (vitamin D3) 25 2,000 unit PO DAILY supplement 03/2509/11/24 History mcg (1,000 unit) capsule cyanocobalamin (vitamin B-12) 2,000 mcg PO DAILY supplement 10/3109/11/24 History 1,000 mcg tablet melatonin 5 mg tablet 5 mg PO HS PRN sleep 11/10/2208/31 History Handicap placard #1 ea 04/12/23 09/11/24 Rx vitamins A,C,U-ufsd-gfyxow 4,296 1 cap PO BID eye health 04/12/23 0 09/11/24 History mcg-226 mg-90 mg capsule cetirizine 10 mg tablet 10 mg PO Q12H ask pcp 06/15/2404/26 History doxepin 25 mg capsule 25 mg PO QHS itch 06/15/24 5 History lidocaine 5 % topical patch 1 patch topical Q24H rt rib pain 0 06/15/24 09/11/24 History acetaminophen 500 mg tablet 1,000 mg (2 x 500 mg) PO Q8 PRN 09/11/24 Rx Pain #0 tabs tramadol 50 mg tablet 50 mg PO Q6H PRN PRN pain #10 tabs 06/18/24 09/11/24 Rx apixaban 5 mg tablet (Eliquis) 5 mg PO BID #180 tabs 09/04/2404/26 Rx atorvastatin 10 mg tablet 10 mg PO QHS cholesterol #90 tabs 09/04/24 09/11/24 Rx diltiazem HCl 120 mg 120 mg PO BID heart #180 caps 09/2409/11/24 Rx capsule,extended release 24 hr furosemide 40 mg tablet (Lasix) 40 mg PO DAILY #90 tabs 09/04/24 0 09/11/24 Rx losartan 25 mg tablet 25 mg PO DAILY #90 tabs 09/04/24 0 09/11/24 Rx potassium chloride 20 mEq 20 meq PO BID #180 tabs 09/04/24 0 5/12/25 Rx tablet,extended release gabapentin 300 mg capsule 300 mg PO DAILY 09/09/24 09/11/24 History Have you fallen in the past year?: Yes Nurse's Note: Pt stated she is feeling good since being here last. No complaints or issues at this time, pt did state that she was seen on 08/10 and was to moitor her weight at home. [facility] Medical History Atrial fibrillation Acute left lumbar radiculopathy Atrial fibrillation Dyspnea on exertion Wears glasses Cancer Ambulates with cane Bladder disease History of renal disease High cholesterol Easy bruising Migraine headache Injury of head and neck Former smoker Leg cramps History of edema History of stress test History of echocardiogram Cardiology follow-up encounter Shortness of breath on exertion LLQ abdominal pain CKD (chronic kidney disease) stage 3, GFR 30-59 ml/min Heart murmur Concussion Chronic urticaria Basal cell carcinoma Aortic stenosis Nonrheumatic mitral (valve) insufficiency Nonrheumatic aortic (valve) insufficiency Secondary pulmonary arterial hypertension Hyperlipidemia Seasonal allergies Anemia Glaucoma GERD (gastroesophageal reflux disease) Essential (primary) hypertension Premature atrial contractions History of shingles History of basal cell cancer History of rectocele History of melanoma Surgical History Hx of colonoscopy History of bilateral cataract extraction History of hemorrhoidectomy History of repair of right rotator cuff History of laparoscopy History of appendectomy History of hysterectomy Family History Mother Anemia Hypertension Brother Hypertension Grandfather Cancer Social History household members: family housing: house Smoking Status: Former smoker Tobacco: How many years used: 25 how long ago did patient quit smokin alcohol intake: never substance use type: does not use what type of physical activity do you participate in: none HPI HPI (more content not included)... Normal [facility] Absolute lymphocyte countOrd ered By: Romaine Rivero on 09-09-2024 Lymphocytes Auto (Unsp spec) [#/Vol] 1.82 10*3/uL 0.83-4.51 [facility] Absolute neutrophil countOrd ered By: Romaine Rivero on 09-09-2024 Neutrophils (Bld) [#/Vol] 3.7 10*3/uL 2.0-7.7 [facility] Anion gap in Serum or Plasma Ordered By: Romainesaturnino Rivero on 09-09-2024 Anion gap [Moles/Vol] 13 mmol/L 5- [facility] Automated lymphocyte count a s percentage of total leukocytesOrdered By: Romainesaturnino Rivero on 09-09-2024 Lymphocytes/100 WBC Auto (Unsp spec) 27.5 % [facility] BUN/creatinine ratioOrdered By: Romainesaturnino Rivero on 09-09-2024 Urea nitrogen/Creatinine [Mass ratio] 12.2 mg/mg - [facility] Basophil percentageOrdered B y: Romaine Rivero on 09-09-2024 Basophils/100 WBC (Bld) 1.7 % High 0-1 [facility] Bilirubin Test strip Ql (U)O rdered By: Romainesaturnino Rivero on 09-09-2024 Bilirubin Ql (U) Negative Negative [facility] Bilirubin, totalOrdered By: Romainesaturnino Rivero on 09-09-2024 Bilirubin [Mass/Vol] 0.62 mg/dL 0.00-1.30 [facility] CBC W/Diff, Automatedon 08-31 Absolute Lymph 1.82 X10 3/uL Normal 0.83-4.51 [facility] Comment on above: Performed By: #### L 100.0100, L500.4050 ####[facility] [address] [place], [address] Absolute Neut 3.7 X10 3/uL Normal 2.0-7.7 [facility] Comment on above: Performed By: #### L 100.0100, L500.4050 ####[facility] [address] [place], [address] Basophils/100 WBC (Bld) 1.7 % High 0-1 [facility] Comment on above: Performed By: #### L 100.0100, L500.4050 ####[facility] [address] [place], [address] Eosinophils/100 WBC (Bld) 5.3 % High 0-5 [facility] Comment on above: Performed By: #### L 100.0100, L500.4050 ####[facility] [address] [place], [address] Erythrocyte distribution width (RBC) [Ratio] 14.5 % Normal 11.6-14.6 [facility] Comment on above: Performed By: #### L 100.0100, L500.4050 ####[facility] [address] [place], [address] Hematocrit (Bld) [Volume fraction] 44.4 % Normal 37-47 [facility] Comment on above: Performed By: #### L 100.0100, L500.4050 ####[facility] [address] [place], [address] Hemoglobin (Bld) [Mass/Vol] 14.5 g/dL Normal 12.0-15. 0 [facility] Comment on above: Performed By: #### L 100.0100, L500.4050 ####[facility] [address] [place], [address] IG% 0.300 Normal 0.0-0.9 [facility] Comment on above: Result Comment: IG% - Immature Granulocytes (promyelocytes, myelocytes and metamyelocytes) > 1% indicates that a LEFT SHIFT is Present. Performed By: #### L 100.0100, L500.4050 ####[facility] [address] [place], [address] Lymphocytes/100 WBC (Bld) 27.5 % Normal 19-41 [facility] Comment on above: Performed By: #### L 100.0100, L500.4050 ####[facility] [address] [place], [address] MCH (RBC) [Entitic mass] 29.6 pg Normal 27.0-32.0 [facility] Comment on above: Performed By: #### L 100.0100, L500.4050 ####[facility] [address] [place], [address] MCHC (RBC) [Mass/Vol] 32.7 g/dL Normal 32-36 [facility] Comment on above: Performed By: #### L 100.0100, L500.4050 ####[facility] [address] [place], [address] MCV (RBC) [Entitic vol] 90.6 fL Normal 81-99 [facility] Comment on above: Performed By: #### L 100.0100, L500.4050 ####[facility] [address] [place], [address] Monocytes/100 WBC (Bld) 9.4 % Normal 0-10 [facility] Comment on above: Performed By: #### L 100.0100, L500.4050 ####[facility] [address] [place], [address] Neutrophils/100 WBC (Bld) 55.8 % Normal 47-70 [facility] Comment on above: Performed By: #### L 100.0100, L500.4050 ####[facility] [address] [place], [address] Nucleated RBC (Bld) [#/Vol] 0 10*3/uL Normal 0-5 [facility] Comment on above: Performed By: #### L 100.0100, L500.4050 ####[facility] [address] [place], [address] Platelet mean volume (Bld) [Entitic vol] 9.4 fL Normal 6.2-12.0 [facility] Comment on above: Performed By: #### L 100.0100, L500.4050 ####[facility] [address] [place], [address] Platelets (Bld) [#/Vol] 278 10*3/uL Normal 150-450 [facility] Comment on above: Performed By: #### L 100.0100, L500.4050 ####[facility] [address] [place], [address] RBC (Bld) [#/Vol] 4.90 10*6/uL Normal 4.2-5.4 [facility] Comment on above: Performed By: #### L 100.0100, L500.4050 ####[facility] [address] [place], [address] RDW SD 48.6 fl High 35.1-43.9 [facility] Comment on above: Performed By: #### L 100.0100, L500.4050 ####[facility] [address] [place], [address] WBC (Bld) [#/Vol] 6.6 10*3/uL Normal 4.4-11.0 [facility] Comment on above: Performed By: #### L 100.0100, L500.4050 ####[facility] [address] [place], [address] Carbon dioxide, total [Moles /volume] in Central venous bloodOrdered By: Romaine Rivero on 09-09-2024 CO2 [Moles/Vol] 24.7 mmol/L 21.0-32.0 [facility] Chloride assayOrdered By: Beatriz Rivero on 09-09-2024 Chloride [Moles/Vol] 100 mmol/L 98-108 [facility] Comprehensive Metabolic Prof ilon 09-09-2024 Albumin [Mass/Vol] 4.2 g/dL Normal 3.4-4.8 [facility] Comment on above: Performed By: #### L 100.0100, L500.4050 ####[facility] [address] [place], [address] Albumin/Globulin [Mass ratio] 1.3 {ratio} Normal 0.9-2.4 [facility] Comment on above: Performed By: #### L 100.0100, L500.4050 ####[facility] [address] [place], [place], AL[place] PHOS 158 U/L High 35-104 [facility] Comment on above: Performed By: #### L 100.0100, L500.4050 ####[facility] [address] [place], [address] ALT [Catalytic activity/Vol] 13 U/L Normal <=34 [facility] Comment on above: Performed By: #### L 100.0100, L500.4050 ####[facility] [address] [place], [address] AST [Catalytic activity/Vol] 23 U/L Normal <=31 [facility] Comment on above: Performed By: #### L 100.0100, L500.4050 ####[facility] [address] [place], [address] Bilirubin [Mass/Vol] 0.62 mg/dL Normal 0.00-1.30 [facility] Comment on above: Performed By: #### L 100.0100, L500.4050 ####[facility] [address] [place], [address] BUN/CRE 12.2 RATIO Normal 10-20 [facility] Comment on above: Performed By: #### L 100.0100, L500.4050 ####[facility] [address] [place], [address] Calcium [Mass/Vol] 9.2 mg/dL Normal 7.6-11.0 [facility] Comment on above: Performed By: #### L 100.0100, L500.4050 ####[facility] [address], [address] Chloride [Moles/Vol] 100 mmol/L Normal 98-108 [facility] Comment on above: Performed By: #### L 100.0100, L500.4050 ####[facility] [address] [place], [address] CO2 [Moles/Vol] 24.7 mmol/L Normal 21.0-32.0 [facility] Comment on above: Performed By: #### L 100.0100, L500.4050 ####[facility] [address] [place], [address] Creatinine [Mass/Vol] 1.15 mg/dL Normal 0.70-1.20 [facility] Comment on above: Performed By: #### L 100.0100, L500.4050 ####[facility] [address] [place], [address] ECRCL 30.88 ml/min Low 50-250 [facility] Comment on above: Performed By: #### L 100.0100, L500.4050 ####[facility] [address] [place], [address] GAP 13 Normal 5-15 [facility] Comment on above: Performed By: #### L 100.0100, L500.4050 ####[facility] [address] [place], [address] GFR/1.73 sq M.predicted among non-blacks MDRD (S/P/Bld) [Vol rate/Area] 47 mL/min/{1.73_m2} Low >60 [facility] Comment on above: Result Comment: mL/m in/1.73m2 CKD-EPI Creatinine Equation (2020) Performed By: #### L 100.0100, L500.4050 ####[facility] [address] [place], [address] Globulin (S) [Mass/Vol] 3.2 g/dL Normal 2.2-4.2 [facility] Comment on above: Performed By: #### L 100.0100, L500.4050 ####[facility] [address] [place], [address] Glucose [Mass/Vol] 102 mg/dL High 70-99 [facility] Comment on above: Performed By: #### L 100.0100, L500.4050 ####[facility] [address] [place], [address] Potassium [Moles/Vol] 3.7 mmol/L Normal 3.3-5.1 [facility] Comment on above: Performed By: #### L 100.0100, L500.4050 ####[facility] [address] [place], [address] Sodium [Moles/Vol] 138 mmol/L Normal 133-145 [facility] Comment on above: Performed By: #### L 100.0100, L500.4050 ####[facility] [address] [place], [address] T PROT 7.4 g/dL Normal 5.9-8.4 [facility] Comment on above: Performed By: #### L 100.0100, L500.4050 ####[facility] [address] [place], [address] Urea nitrogen [Mass/Vol] 14 mg/dL Normal 4-19 [facility] Comment on above: Performed By: #### L 100.0100, L500.4050 ####[facility] [address] [place], [address] Emergency Department Summary on 09-09-2024 Emergency Department Summary [facility] Medical Records Department [address] [place] [address] Emergency Department Summary 09/09/24 MR#: [id number] Acct: [id number] Name: JIL DÍAZ Rep #: [id number] : 1940 84 From: Romaine Rivero MD PCP: Dr. Bjorn Soares MD Status:REG ER Location: ED HPI History of Present Illness Chief Complaint: Confusion Detail of Chief Complaint: Increased confusion from baseline Informant: patient and family (Sign is the primary informant because patient states she does not need to be here.) Onset/Context/Timing Onset: Today and Yesterday Context: Sudden Onset Timing: Intermittent Quality: Apparently was in the street talking to someone that was not there. Location: Not applicable Current Severity: Mild Maximum Severity: Moderate Worsened by: Patient has baseline dementia. Relieved by: Nothing Associated Symptoms Associated Symptoms: None Narrative Narrative: Patient is an 84-year-old woman. She has dementia. She has been seen by gerontologist through the [facility]. She failed her mini mental status exam and was told she could no longer drive. She has not seen by him again until October. She has happily no complaints. She denies headache, change in vision, trouble with speech. She denies cardiac respiratory symptoms. She denies upper respiratory infectious symptoms. She denies GI symptoms. She denies urologic symptoms. Son states she has had UTIs in the past when she has got worse. There are no new medications. She is on apixaban for atrial fibrillation. There is no history of trauma. She also has history hypercholesterolemia. Glaucoma, hypertension. Prior similar symptoms: Yes (UTI) Recent Illness/Hospitalizati on: No PFSH PFSH Medical History Atrial fibrillation Acute left lumbar radiculopathy Atrial fibrillation Dyspnea on exertion Wears glasses Cancer Ambulates with cane Bladder disease History of renal disease High cholesterol Easy bruising Migraine headache Injury of head and neck Former smoker Leg cramps History of edema History of stress test History of echocardiogram Cardiology follow-up encounter Shortness of breath on exertion LLQ abdominal pain CKD (chronic kidney disease) stage 3, GFR 30-59 ml/min Heart murmur Concussion Chronic urticaria Basal cell carcinoma Aortic stenosis Nonrheumatic mitral (valve) insufficiency Nonrheumatic aortic (valve) insufficiency Secondary pulmonary arterial hypertension Hyperlipidemia Seasonal allergies Anemia Glaucoma GERD (gastroesophageal reflux disease) Essential (primary) hypertension Premature atrial contractions History of shingles History of basal cell cancer History of rectocele History of melanoma Home Medications ???Medication ???Instructions ???Recorded ???Last Taken ???Type famotidine 40 mg tablet 40 mg PO BID 05/28/17 06/14/24 His tory dorzolamide 22.3 mg-timolol 6.8 1 drp EACH EYE BID eye heal Unknown History mg/mL eye drops latanoprost 0.005 % eye drops 1 drp EACH EYE DAILY eye health Unknown History brimonidine 0.2 % eye drops 2 drp EACH EYE BID 11/10/22 History cholecalciferol (vitamin D3) 25 2,000 unit PO DAILY supplement 03/25 Unknown History mcg (1,000 unit) capsule cyanocobalamin (vitamin B-12) 2,000 mcg PO DAILY supplement 10/31 05/25 Unknown History 1,000 mcg tablet melatonin 5 mg tablet 5 mg PO HS PRN sleep 11/10/22 Unkn own History Handicap placard #1 ea 04/12/23 Unknown Rx vitamins A,C,U-rgco-swwcxl 4,296 1 cap PO BID eye health 04/12/23 U nknown History mcg-226 mg-90 mg capsule cetirizine 10 mg tablet 10 mg PO Q12H ask pcp 06/15/24 Unk nown History doxepin 25 mg capsule 25 mg PO QHS itch 06/15/24 Unknown History lidocaine 5 % topical patch 1 patch topical Q24H rt rib pain 0 06/15/24 Unknown History acetaminophen 500 mg tablet 1,000 mg (2 x 500 mg) PO Q8 PRN Unknown Rx Pain #0 tabs tramadol 50 mg tablet 50 mg PO Q6H PRN PRN pain #10 tabs 06/18/24 Unknown Rx apixaban 5 mg tablet (Eliquis) 5 mg PO BID #180 tabs 09/04/24 Unk nown Rx atorvastatin 10 mg tablet 10 mg PO QHS cholesterol #90 tabs 09/04/24 Unknown Rx diltiazem HCl 120 mg 120 mg PO BID heart #180 caps 09/24 Unknown Rx capsule,extended release 24 hr furosemide 40 mg tablet (Lasix) 40 mg PO DAILY #90 tabs 09/04/24 U nknown Rx losartan 25 mg tablet 25 mg PO DAILY #90 tabs 09/04/24 U nknown Rx potassium chloride 20 mEq 20 meq PO BID #180 tabs 09/04/24 U nknown Rx tablet,extended release gabapentin 300 mg capsule 300 mg PO DAILY 09/09/24 Unknown H istory Allergy/AdvReac Type Severity Reaction Status Date / Time oxycodone (From Percocet) AdvReac Upset Verified 09/09/24 17:49 S (more content not included)... Normal [facility] Eosinophil percentageOrdered By: Romaine Rivero on 09-09-2024 Eosinophils/100 WBC (Bld) 5.3 % High 0-5 [facility] Erythrocyte distribution wid th ratioOrdered By: Romaine Rivero on 09-09-2024 Erythrocyte distribution width (RBC) [Ratio] 14.5 % 11.6-14.6 [facility] Erythrocyte distribution wid th standard deviationOrdered By: Romaine Rivero on 09-09-2024 Erythrocyte distribution width (RBC) [Ratio] 48.6 fl High 35.1-43.9 [facility] Glomerular filtration rate ( GFR) estimation/1.73 sq m using serum, plasma, or whole bOrdered By: Romaine Rivero on 09-09-2024 GFR/1.73 sq M.predicted among non-blacks MDRD (S/P/Bld) [Vol rate/Area] 47 mL/min/{1.73_m2} Low >60 [facility] Comment on above: mL/min/1.73m2 CKD-EP I Creatinine Equation (2020) Hematocrit Auto (Bld) [Volum e fraction]Ordered By: Romaine Rivero on 09-09-2024 Hematocrit (Bld) [Volume fraction] 44.4 % 37-47 [facility] Hemoglobin measurementOrdere d By: Romaine Rivero on 09-09-2024 Hemoglobin (Bld) [Mass/Vol] 14.5 g/dL 12.0-15. 0 [facility] Immature granulocytes/100 WB C Auto (Bld)Ordered By: Romaine Rivero on 09-09-2024 Immature granulocytes/100 WBC (Bld) 0.300 % 0.0-0.9 [facility] Comment on above: IG% - Immature Granu locytes (promyelocytes, myelocytes and metamyelocytes) > 1% indicates that a LEFT SHIFT is Present. Ketones Test strip Ql (U)Ord ered By: Romaine Rivero on 09-09-2024 Ketones Ql (U) Negative Negative [facility] Laboratory - Chemistry and C hemistry - challengeOrdered By: Romaine Rivero on 09-09-2024 AST [Catalytic activity/Vol] 23 U/L <32 [facility] MCV (mean corpuscular volume ) determinationOrdered By: Romaine Rivero on 09-09-2024 MCV (RBC) [Entitic vol] 90.6 fL 81-99 [facility] Mean corpuscular hemoglobin (MCH) determinationOrdered By: Romaine Rivero on 09-09-2024 MCH (RBC) [Entitic mass] 29.6 pg 27.0-32.0 [facility] Mean corpuscular hemoglobin concentration (MCHC) determinationOrdered By: Romaine Rivero on 09-09-2024 MCHC (RBC) [Mass/Vol] 32.7 g/dL 32-36 [facility] Mean platelet volume determi nationOrdered By: Romaine Rivero on 09-09-2024 Platelet mean volume (Bld) [Entitic vol] 9.4 fL 6.2-12.0 [facility] Microscopic analysis of urin e for red blood cells (RBC)Ordered By: Romaine Rivero on 09-09-2024 Microscopic analysis of urine for red blood cells (RBC) 0 SEEN /hpf 0-5 [facility] Monocyte percentageOrdered B y: Romaine Rivero on 09-09-2024 Monocytes/100 WBC (Bld) 9.4 % 0-10 [facility] Mucus LM Ql (Urine sed)Order ed By: Romaine Rivero on 09-09-2024 Mucus Ql (Urine sed) 0 SEEN /hpf [facility] Neutrophil percentageOrdered By: Romaine Rivero on 09-09-2024 Neutrophils/100 WBC (Bld) 55.8 % 47-70 [facility] Nitrite Test strip Ql (U)Ord ered By: Romaine Rivero on 09-09-2024 Nitrite Ql (U) Negative Negative [facility] Nucleated red blood cell per centageOrdered By: Romaine Rivero on 09-09-2024 Nucleated RBC/100 WBC (Bld) [Ratio] 0 % 0-5 [facility] Platelet countOrdered By: Beatriz Rivero on 09-09-2024 Platelets (Bld) [#/Vol] 278 10*3/uL 150-450 [facility] Potassium measurement (mass/ volume)Ordered By: Romainesaturnino Rivero on 09-09-2024 Potassium (Unsp spec) [Mass/Vol] 3.7 mmol/L 3.3-5.1 [facility] Protein Test strip Ql (U)Ord ered By: Romaine Rivero on 09-09-2024 Protein Ql (U) Negative Negative [facility] RBC Auto (Bld) [#/Vol]Ordere d By: Romaine Rivero on 09-09-2024 RBC (Bld) [#/Vol] 4.90 10*6/uL 4.2-5.4 [facility] Serum creatinine measurement (mass/volume)Ordered By: Romaine Rivero on 09-09-2024 Creatinine [Mass/Vol] 1.15 mg/dL 0.70-1.20 [facility] Serum globulin measurementOr dered By: Romaine Rivero on 09-09-2024 Globulin (S) [Mass/Vol] 3.2 g/dL 2.2-4.2 [facility] Serum glucose measurement (m ass/volume)Ordered By: Romaine Rivero on 09-09-2024 Glucose [Mass/Vol] 102 mg/dL High 70-99 [facility] Serum or plasma alanine ash otransferase (ALT) measurementOrdered By: Romainesaturnino Rivero on 09-09-2024 ALT [Catalytic activity/Vol] 13 U/L <35 [facility] Serum or plasma albumin jackson urement (mass/volume)Ordered By: Romaine Rivero on 09-09-2024 Albumin [Mass/Vol] 4.2 g/dL 3.4-4.8 [facility] Serum or plasma albumin/glob ulin mass ratioOrdered By: Romainesaturnino Rivero on 09-09-2024 Albumin/Globulin [Mass ratio] 1.3 {ratio} 0.9-2.4 [facility] Serum or plasma alkaline sushant sphatase measurementOrdered By: Romainesaturnino Rivero on 09-09-2024 ALP [Catalytic activity/Vol] 158 U/L High 35-104 [facility] Serum or plasma calcium jackson urement (mass/volume)Ordered By: Romainesaturnino Rivero on 09-09-2024 Calcium [Mass/Vol] 9.2 mg/dL 7.6-11.0 [facility] Serum or plasma urea nitroge n measurement (mass/volume)Ordered By: Romaine Rivero on 09-09-2024 Urea nitrogen [Mass/Vol] 14 mg/dL 4-19 [facility] Sodium levelOrdered By: Romaine Rivero on 09-09-2024 Sodium [Moles/Vol] 138 mmol/L 133-145 [facility] Squamous epithelial cells de tection in urine sediment by light microscopyOrdered By: Romainesaturnino Rivero on 09-09-2024 Epithelial cells.squamous LM Ql (Urine sed) 0-5 SEEN /hpf 09-09 [facility] Total proteinOrdered By: Romainesaturnino Rivero on 09-09-2024 Protein [Mass/Vol] 7.4 g/dL 5.9-8.4 [facility] Urinalysis, Completeon 09-09 EPI,SQUAMOUS 0-5 SEEN Normal 09-09 [facility] Comment on above: Order Comment: CLEAN CATCH Performed By: #### [id number] ####[facility] [address] [place], [place], [id number] BACTERIA 0 SEEN Normal None Seen [facility] Comment on above: Order Comment: CLEAN CATCH Performed By: #### [id number] ####[facility] [address] [place], [address] Mucus Ql (Urine sed) 0 SEEN Normal [facility] Comment on above: Order Comment: CLEAN CATCH Performed By: #### [id number] ####[facility] [address] [place], [address] RBC 0 SEEN Normal 0-5 [facility] Comment on above: Order Comment: CLEAN CATCH Performed By: #### [id number] ####[facility] [address] [place], [address] WBC 0 SEEN Normal 0-5 [facility] Comment on above: Order Comment: CLEAN CATCH Performed By: #### L [id number] ####[facility] [address] [place], [address] Urine clarityOrdered By: Romaine Rivero on 09-09-2024 Clarity (U) Clear Clear [facility] Urine color determinationOrd ered By: Romaine Rivero on 09-09-2024 Color (U) Straw Yellow [facility] Urine glucose detectionOrder ed By: Romanie Rivero on 09-09-2024 Glucose Ql (U) Normal mg/dl Normal [facility] Urine leukocyte esterase det ection by dipstickOrdered By: Romaine Rivero on 09-09-2024 Leukocyte esterase Test strip Ql (U) 25 /ul High Negative [facility] Urine pHOrdered By: Romaine matamoros on 09-09-2024 pH (U) 7.0 [pH] 5.0 - 8.0 [facility] Urine sediment bacteria coun t by microscopy (number/high power field)Ordered By: Romaine Rivero on 09-09-2024 Bacteria LM.HPF (Urine sed) [#/Area] 0 /[HPF] None Seen [facility] Urine specific gravity measu rementOrdered By: Romaine Rivero on 09-09-2024 Specific gravity (U) [Rel density] 1.005 1.002-1.030 [facility] Urine urobilinogen measureme ntOrdered By: Romaine Rivero on 09-09-2024 Urobilinogen Ql (U) Normal mg/dl Normal [facility] White blood cell (WBC) count Ordered By: Romaine Rivero on 09-09-2024 WBC (Bld) [#/Vol] 6.6 10*3/uL 4.4-11.0 [facility] White blood cell countOrdere d By: Romaine Rivero on 09-09-2024 White blood cell count 0 SEEN /hpf 0-5 [facility] Cardiology Visit Reporton Cardiology Visit Report [facility] [address] [place] [address] OFFICE VISIT Date of Service: 09/04/24 MR#: [id number] Acct: [id number] Name: JIL DÍAZ Rep #: [id number] : 1940 Provider: JAGJIT mares Age/Sex: 84/F [place] [facility] [place] Status: Signed HPI HPI History of Present Illness Details: Ms. Díaz is a pleasant 84-year-old lady who presents to the office today for a cardiovascular follow-up visit. She has a history of hypertension, hyperlipidemia who is here today for a cardiovascular follow up. She also has a history of aortic valve disease with mild aortic regurgitation, moderate stenosis, mild mitral regurgitation, and atrial fibrillation (first noted 04/12/2023). From a cardiac standpoint, the patient is doing well. She denies any palpitations, chest pain, pressure or heaviness. She does have occasional SOB-this is nothing new or worsening. She denies Orthopnea, and PND. She does not have bleeding issues; no blood in urine, stool, or nosebleeds. She denies any decrease in energy level, myalgias, or claudication. She does not have edema, or sudden weight gain. She does have occasional lightheadedness with quick postional changes. She denies dizziness, syncopal or near syncopal episodes, and headaches. Intake Vital Signs 08/10/24 08:07 09/04/24 06:11 Height 5 ft 4 in 5 ft 4 in Weight: 132 lb BMI 22.6 BP 127/79 H Blood Pressure Location Lt brachial Position Sitting Respiration 18 Pulse 92 Pulse Source Monitor Pulse Oximetry (%) 100 Intake Visit Reasons: 1 Y FU Director Data Analytics Required: No Is patient in pain?: No Allergies oxycodone (From Percocet) Adverse Reaction (Verified 09/04/24 08:30) Upset Stomach Medications ???Medication ???Instructions ???Recorded ???Confirmed ???Type famotidine 40 mg tablet 40 mg PO BID 05/28/17 09/04/24 His tory dorzolamide 22.3 mg-timolol 6.8 1 drp EACH EYE BID eye heal 09/04/24 History mg/mL eye drops latanoprost 0.005 % eye drops 1 drp EACH EYE DAILY eye health 09/04/24 History brimonidine 0.2 % eye drops 2 drp EACH EYE BID 11/10/22 History cholecalciferol (vitamin D3) 25 2,000 unit PO DAILY supplement 03/2509/04/24 History mcg (1,000 unit) capsule cyanocobalamin (vitamin B-12) 2,000 mcg PO DAILY supplement 10/3109/04/24 History 1,000 mcg tablet melatonin 5 mg tablet 5 mg PO HS PRN sleep 11/10/2209/24 History Handicap placard #1 ea 04/12/23 09/04/24 Rx vitamins A,C,L-gzoc-ozcnas 4,296 1 cap PO BID eye health 04/12/23 0 09/04/24 History mcg-226 mg-90 mg capsule cetirizine 10 mg tablet 10 mg PO Q12H ask pcp 06/15/2409/24 History doxepin 25 mg capsule 25 mg PO QHS itch 06/15/24 5 History lidocaine 5 % topical patch 1 patch topical Q24H rt rib pain 0 06/15/24 09/04/24 History acetaminophen 500 mg tablet 1,000 mg (2 x 500 mg) PO Q8 PRN 09/04/24 Rx Pain #0 tabs tramadol 50 mg tablet 50 mg PO Q6H PRN PRN pain #10 tabs 06/18/24 09/04/24 Rx apixaban 5 mg tablet (Eliquis) 5 mg PO BID #180 tabs 09/04/2409/24 Rx atorvastatin 10 mg tablet 10 mg PO QHS cholesterol #90 tabs 09/04/24 09/04/24 Rx diltiazem HCl 120 mg 120 mg PO BID heart #180 caps 09/2409/04/24 Rx capsule,extended release 24 hr furosemide 40 mg tablet (Lasix) 40 mg PO DAILY #90 tabs 09/04/24 0 09/04/24 Rx losartan 25 mg tablet 25 mg PO DAILY #90 tabs 09/04/24 0 09/04/24 Rx potassium chloride 20 mEq 20 meq PO BID #180 tabs 09/04/24 0 09/04/24 Rx tablet,extended release Ejection fraction %: 70 Have you fallen in the past year?: Yes (several times) Nurse's Note: unable to confirm medications but patient states no changes [facility] Medical History Atrial fibrillation Acute left lumbar radiculopathy Atrial fibrillation Dyspnea on exertion Wears glasses Cancer Ambulates with cane Bladder disease History of renal disease High cholesterol Easy bruising Migraine headache Injury of head and neck Former smoker Leg cramps History of edema History of stress test History of echocardiogram Cardiology follow-up encounter Shortness of breath on exertion LLQ abdominal pain CKD (chronic kidney disease) stage 3, GFR 30-59 ml/min Heart murmur Concussion Chronic urticaria Basal cell carcinoma Aortic stenosis Nonrheumatic mitral (valve) insufficiency Nonrheumatic aortic (valve) insufficiency Secondary pulmonary arterial hypertension Hyperlipidemia Seasonal allergies Anemia Glaucoma GERD (gastroesophageal reflux disease) Essential (primary) hypertension Premature atrial contractions History of shingles History of basal cell cancer History of rectocele His (more content not included)... Normal [facility] Gastroenterology Visit Repor ton 08-10-2024 Gastroenterology Visit Report [facility] [address] [place] [address] OFFICE VISIT Date of Service: 08/10/24 MR#: [id number] Acct: [id number] Name: JIL DÍAZ Rep #: [id number] : 1940 Provider: JAGJIT garber Age/Sex: 84/F [place] [facility] [place] Status: Signed Intake Vital Signs 08/01/24 12:09 08/10/24 08:07 Height 5 ft 4 in 5 ft 4 in Weight: 126 lb 4 oz BMI 21.7 BP 144/85 H Respiration 16 Pulse 88 Pulse Oximetry (%) 95 Oxygen Delivery Method room air Intake Visit Reasons: fu Chief Complaint: LLE injury Director Data Analytics Required: No Accompanied by: Son Is patient in pain?: No Allergies oxycodone (From Percocet) Adverse Reaction (Verified 08/10/24 08:09) Upset Stomach Medications ???Medication ???Instructions ???Recorded ???Confirmed ???Type famotidine 40 mg tablet 40 mg PO BID 05/28/17 08/10/24 His tory atorvastatin 10 mg tablet 10 mg PO QHS cholesterol 10/05/19 08/10/24 History dorzolamide 22.3 mg-timolol 6.8 1 drp EACH EYE BID eye heal 08/10/24 History mg/mL eye drops latanoprost 0.005 % eye drops 1 drp EACH EYE DAILY eye health 08/10/24 History brimonidine 0.2 % eye drops 2 drp EACH EYE BID 11/10/22 History cholecalciferol (vitamin D3) 25 2,000 unit PO DAILY supplement 03/2508/10/24 History mcg (1,000 unit) capsule cyanocobalamin (vitamin B-12) 2,000 mcg PO DAILY supplement 10/3108/10/24 History 1,000 mcg tablet melatonin 5 mg tablet 5 mg PO HS PRN sleep 11/10/2208/01 History Handicap placard #1 ea 04/12/23 08/10/24 Rx vitamins A,C,J-hjdo-yrxwrf 4,296 1 cap PO BID eye health 04/12/23 0 08/10/24 History mcg-226 mg-90 mg capsule potassium chloride 20 mEq 20 meq PO BID #90 tabs 06/01/23 Rx tablet,extended release diltiazem HCl 120 mg 120 mg PO BID heart #90 caps 06/2308/10/24 Rx capsule,extended release 24 hr losartan 25 mg tablet 25 mg PO DAILY #90 tabs 06/23/23 0 08/10/24 Rx furosemide 40 mg tablet (Lasix) 40 mg PO DAILY #90 tabs 04/10/24 0 08/10/24 Rx apixaban 5 mg tablet (Eliquis) 5 mg PO BID #60 tabs 05/05/2408/01 Rx cetirizine 10 mg tablet 10 mg PO Q12H ask pcp 06/15/2402/24 History doxepin 25 mg capsule 25 mg PO QHS itch 06/15/24 5 History lidocaine 5 % topical patch 1 patch topical Q24H rt rib pain 0 06/15/24 08/10/24 History acetaminophen 500 mg tablet 1,000 mg (2 x 500 mg) PO Q8 PRN 08/10/24 Rx Pain #0 tabs amoxicillin 875 mg-potassium 1 tab PO Q12H #6 tabs 06/18/2402/24 Rx clavulanate 125 mg tablet dexamethasone 4 mg tablet 6 mg (1.5 x 4 mg) PO DAILY #6 tabs 06/18/24 08/10/24 Rx guaifenesin 1,200 mg tablet, 1,200 mg PO BID #10 tabs 06/18/24 08/10/24 Rx extended release 12 hr (Mucus Relief ER) tramadol 50 mg tablet 50 mg PO Q6H PRN PRN pain #10 tabs 06/18/24 08/10/24 Rx Have you fallen in the past year?: Yes PFSH Medical History (Updated 08/10/24 @ 08:35 by Lo Bradford NP-C) Atrial fibrillation Acute left lumbar radiculopathy Atrial fibrillation Dyspnea on exertion Wears glasses Cancer Ambulates with cane Bladder disease History of renal disease High cholesterol Easy bruising Migraine headache Injury of head and neck Former smoker Leg cramps History of edema History of stress test History of echocardiogram Cardiology follow-up encounter Shortness of breath on exertion LLQ abdominal pain CKD (chronic kidney disease) stage 3, GFR 30-59 ml/min Heart murmur Concussion Chronic urticaria Basal cell carcinoma Aortic stenosis Nonrheumatic mitral (valve) insufficiency Nonrheumatic aortic (valve) insufficiency Secondary pulmonary arterial hypertension Hyperlipidemia Seasonal allergies Anemia Glaucoma GERD (gastroesophageal reflux disease) Essential (primary) hypertension Premature atrial contractions History of shingles History of basal cell cancer History of rectocele History of melanoma Surgical History Hx of colonoscopy History of bilateral cataract extraction History of hemorrhoidectomy History of repair of right rotator cuff History of laparoscopy History of appendectomy History of hysterectomy Family History Mother Anemia Hypertension Brother Hypertension Grandfather Cancer Social History household members: family housing: house Smoking Status: Former smoker Tobacco: How many years used: 25 how long ago did patient quit smokin alcohol intake: never substance use type: does not use what type of physical activity do you participate in: none HPI (more content not included)... Normal [facility] Brain/Head without Contrasto n 08-01-2024 Brain/Head without Contrast [facility] Services [address] [place], [place] [address] Brain/Head without Contrast MR#: [id number] Acct: [id number] Name: JIL DÍAZ Rep #: [id number] : 1940 F 84 From: Marko Interiano MD PCP: Dr. Bjorn Soares MD Status: REG ER Study: Brain/Head without Contrast Date of Exam: 05/27 Exam# [id number] Ordering Dr: Daniel Dodge MD EXAM: CT Head Without Intravenous Contrast CLINICAL INDICATION: FALL/INJURY TECHNIQUE: Axial computed tomography images of the head/brain without intravenous contrast. This CT exam was performed using one or more of the following dose reduction techniques: automated exposure control, adjustment of the mA and/or kV according to patient size, and/or use of iterative reconstruction technique. 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 The cerebral and cerebellar sulci are prominent consistent with brain atrophy. Areas of decreased attenuation in the deep cerebral white matter are consistent with small vessel ischemic/degenerative changes. No acute intracranial hemorrhage, midline shift or mass effect. If symptoms persist, further evaluation with MRI is recommended. BONES/JOINTS: Unremarkable. No acute fracture. SOFT TISSUES: Unremarkable. SINUSES: Unremarkable as visualized. No acute sinusitis. MASTOID AIR CELLS: Unremarkable as visualized. No mastoid effusion. CT/Brain/Head without Contrast IMPRESSION: 1. Generalized brain atrophy. 2. Small vessel ischemic/degenerative changes. 3. No acute intracranial hemorrhage, midline shift or mass effect. If symptoms persist, further evaluation with MRI is recommended. Reading Location: [facility] CC: Dr. Daniel Dodge MD; Dr. Bjorn Soares MD [employer]: Signed [facility] 08-01-2024 CNPN Telephone (FAMPWS) JIL DÍAZ ([id number]) 1940 F Date Time Provider Department 08/01/24 [facility] [employer] During your visit today, we recorded the following information about you: Marguerite Valdes LPN 08/01/2024 11:30 AM Signed FYI: Pt calls to report she was cutting her toenails earlier and she lost her balance and hit her head hard on the floor. Pt reports head still hurts. Pt is currently on Eliquis. Pt reports she does not have a way to the ER and asked if she should call the squad. Agreed with pt to call the squad. Pt reports she is able to call herself. Marguerite Valdes LPN Allergies As of Date: 08/01/2024 Noted Allergy Reaction OXYCODONE 03/11/2017 9 - Itching Date Reviewed: 06/27/2024 Reviewed by: Beatriz Isaac LPN - Fully Assessed Reason for Visit: Fall [218] Prescriptions as of 08/01/2024 - atorvastatin (LIPITOR) 20 mg tablet Take 1 tablet by mouth once daily. - famotidine (PEPCID) 40 mg tablet Take 1 tablet by mouth two times a day. - apixaban (ELIQUIS) 5 mg tab(s) Take 5 mg by mouth two times a day. - potassium chloride 20 mEq TbER Take 20 mEq by mouth once daily. - furosemide (LASIX) 40 mg tablet Take 40 mg by mouth once daily. - dilTIAZem CD (CARDIZEM CD, CARTIA XT) 120 mg 24 hr capsule Take 1 capsule by mouth once daily. - losartan (COZAAR) 50 mg tablet Take 1 tablet by mouth once daily. - dorzolamide-timolol (COSOPT) 22.3-6.8 mg/mL ophthalmic solution Use 1 Drop in both eyes twice daily. - brimonidine (ALPHAGAN) 0.2 % ophthalmic solution - gabapentin (NEURONTIN) 300 mg capsule Take 1 tablet morning and bedtime May take one tablet in afternoon as needed for pain Per Dr. Martinez - lidocaine (LIDODERM) 5 % Apply 1 Patch as directed every 12 hours. - latanoprost (XALATAN) 0.005 % ophthalmic solution Use 1 Drop in both eyes once daily. - vit C,E-Zm-ylesm-lutein-z eaxan (PRESERVISION AREDS-2) 250-90-40-1 mg Take 1 tablet by mouth twice daily at 6AM and 9PM. - BIOTIN ORAL Take 5,000 mg by mouth once daily. - Cholecalciferol, Vitamin D3, 25 mcg (1,000 unit) cap Take 1,000 Units by mouth once daily. - CYANOCOBALAMIN, VITAMIN B-12, (VITAMIN B-12 ORAL) Take 1,000 mg by mouth once daily. Problem List As Of Date 08/01/2024 Noted Resolved Chronic urticaria [L50.8] 05/13/2016 Hypertension [I10] Insomnia [G47.00] Post herpetic neuralgia [B02.29] Heart murmur [R01.1] GERD (gastroesophageal reflux disease) [K21.9] Hyperlipidemia [E78.5] Melanoma (HCC) [C43.9] 09/07/2022 VILLEGAS (dyspnea on exertion) [R06.09] 11/20/2017 Bilateral carotid artery disease (HCC) [I77.9] 11/20/2017 Mitral regurgitation [I34.0] Fall [W19.XXXA] 12/19/2018 Aortic stenosis [I35.0] OAB (overactive bladder) [N32.81] 04/09/2021 Mixed urge and stress incontinence [N39.46] 04/09/2021 Pulmonary arterial hypertension (HCC) [I27.21] 09/07/2022 Chronic kidney disease, stage 3a (HCC) [N18.31] 09/13/2023 Atrial fibrillation (HCC) [I48.91] 04/21/2023 Glaucoma [H40.9] 09/15/2023 Gait disturbance [R26.9] 05/04/2024 Encounter Status:Closed by MARGUERITE VALDES on 08/01/24 Normal [facility] Emergency Department Summary on 08-01-2024 Emergency Department Summary [facility] Medical Records Department [address] [place] [address] Emergency Department Summary 08/01/24 MR#: [id number] Acct: [id number] Name: JIL DÍAZ Rep #: [id number] : 1940 84 From: Daniel Dodge MD PCP: Dr. Bjorn Soares MD Status:REG ER Location: ED HPI HPI - Fall History of Present Illness Chief Complaint: Fall Informant: patient and EMS Narrative Narrative: 84-year-old female is feeling fine today, she went to trim her toenails by putting her foot up on the armrest of a small chair in her living room, she states after she cut the first nail her foot slipped causing her to fall. She fell to her tailbone against a hardwood floor, and also hit the top of her head on the hardwood floor. No loss of consciousness, no headache, nausea, vomiting. She takes Eliquis for A-fib. She denies any other injury. She has been ambulatory before and after EMS transport here to the ER. Denies any bleeding or lacerations. [facility] Medical History Atrial fibrillation Acute left lumbar radiculopathy Atrial fibrillation Dyspnea on exertion Wears glasses Cancer Ambulates with cane Bladder disease History of renal disease High cholesterol Easy bruising Migraine headache Injury of head and neck Former smoker Leg cramps History of edema History of stress test History of echocardiogram Cardiology follow-up encounter Shortness of breath on exertion LLQ abdominal pain CKD (chronic kidney disease) stage 3, GFR 30-59 ml/min Heart murmur Concussion Chronic urticaria Basal cell carcinoma Aortic stenosis Nonrheumatic mitral (valve) insufficiency Nonrheumatic aortic (valve) insufficiency Secondary pulmonary arterial hypertension Hyperlipidemia Seasonal allergies Anemia Glaucoma GERD (gastroesophageal reflux disease) Essential (primary) hypertension Premature atrial contractions History of shingles History of basal cell cancer History of rectocele History of melanoma Home Medications ???Medication ???Instructions ???Recorded ???Last Taken ???Type famotidine 40 mg tablet 40 mg PO BID 05/28/17 06/14/24 His tory atorvastatin 10 mg tablet 10 mg PO QHS cholesterol 10/05/19 06/14/24 History dorzolamide 22.3 mg-timolol 6.8 1 drp EACH EYE BID eye heal Unknown History mg/mL eye drops latanoprost 0.005 % eye drops 1 drp EACH EYE DAILY eye health Unknown History brimonidine 0.2 % eye drops 2 drp EACH EYE BID 11/10/22 History cholecalciferol (vitamin D3) 25 2,000 unit PO DAILY supplement 03/25 Unknown History mcg (1,000 unit) capsule cyanocobalamin (vitamin B-12) 2,000 mcg PO DAILY supplement 10/31 05/25 Unknown History 1,000 mcg tablet melatonin 5 mg tablet 5 mg PO HS PRN sleep 11/10/22 Unkn own History Handicap placard #1 ea 04/12/23 Unknown Rx vitamins A,C,O-bnkf-jhdfnq 4,296 1 cap PO BID eye health 04/12/23 U nknown History mcg-226 mg-90 mg capsule potassium chloride 20 mEq 20 meq PO BID #90 tabs 06/01/23 Rx tablet,extended release diltiazem HCl 120 mg 120 mg PO BID heart #90 caps 06/2306/14/24 Rx capsule,extended release 24 hr losartan 25 mg tablet 25 mg PO DAILY #90 tabs 06/23/23 0 06/14/24 Rx furosemide 40 mg tablet (Lasix) 40 mg PO DAILY #90 tabs 04/10/24 0 06/14/24 Rx apixaban 5 mg tablet (Eliquis) 5 mg PO BID #60 tabs 05/05/2406/03 Rx cetirizine 10 mg tablet 10 mg PO Q12H ask pcp 06/15/24 Unk nown History doxepin 25 mg capsule 25 mg PO QHS itch 06/15/24 Unknown History lidocaine 5 % topical patch 1 patch topical Q24H rt rib pain 0 06/15/24 Unknown History acetaminophen 500 mg tablet 1,000 mg (2 x 500 mg) PO Q8 PRN Unknown Rx Pain #0 tabs amoxicillin 875 mg-potassium 1 tab PO Q12H #6 tabs 06/18/24 Unk nown Rx clavulanate 125 mg tablet dexamethasone 4 mg tablet 6 mg (1.5 x 4 mg) PO DAILY #6 tabs 06/18/24 Unknown Rx guaifenesin 1,200 mg tablet, 1,200 mg PO BID #10 tabs 06/18/24 Unknown Rx extended release 12 hr (Mucus Relief ER) tramadol 50 mg tablet 50 mg PO Q6H PRN PRN pain #10 tabs 06/18/24 Unknown Rx Allergy/AdvReac Type Severity Reaction Status Date / Time oxycodone (From Percocet) AdvReac Upset Verified 06/15/24 10:35 Stomach Family History Mother Anemia Hypertension Brother Hypertension Grandfather Cancer Surgical History Hx of colonoscopy History of bilateral cataract extraction History of hemorrhoidectomy History of repair of right rotator cuff History of laparoscopy History of appendectomy History of hysterectomy Social History ... Normal [facility] Pelvis 1 or 2 Viewson 2024 Pelvis 1 or 2 Views [facility] Imaging Services [address] [place], [place] [id number] Pelvis 1 or 2 Views MR#: [id number] Acct: [id number] Name: JIL DÍAZ Rep #: [id number] : 1940 F 84 From: Janes matthews MD PCP: Dr. Bjorn Soares MD Status: REG ER Study: Pelvis 1 or 2 Views Date of Exam: 08/01/24 Exam# [id number] Ordering Dr: Daniel Dodge MD PROCEDURE: PELVIS 1 OR 2 VIEWS 08/01/2024 REASON FOR EXAM: FALL/INJURY. Posterior right side pain following a fall. TECHNIQUE: 2 view(s) of the pelvis. COMPARISON: None FINDINGS: Hardware: No hardware is seen. Bones: Mild degree of bilateral hip osteoarthritis. Joints: No fracture is seen. soft tissues: Unremarkable Other: Degenerative changes of the lower lumbar spine. RAD/Pelvis 1 or 2 Views IMPRESSION: NO EVIDENCE OF PELVIC FRACTURE Reading Location: [facility] CC: Dr. Daniel Dodge MD; Dr. Bjorn Soares MD Motel Maid: Signed Normal [facility] Sacrum-Coccyx min 2 Viewson 08-01-2024 Sacrum-Coccyx min 2 Views [facility] Imaging Services [address] [place] [address] Sacrum-Coccyx min 2 Views MR#: [id number] Acct: [id number] Name: JIL DÍAZ Rep #: [id number] : 1940 F 84 From: Janes matthews MD PCP: Dr. Bjorn Soares MD Status: REG ER Study: Sacrum-Coccyx min 2 Views Date of Exam: Exam# [id number] Ordering Dr: Daniel Dodge MD PROCEDURE: SACRUM-COCCYX MIN 2 VIEWS 08/01/2024 REASON FOR EXAM: FALL/INJURY TECHNIQUE: AP and lateral view(s) of the sacrum and coccyx. COMPARISON: None FINDINGS: Bones: Unremarkable. Narrowing and sclerosis of the symphysis pubis. Joints: Degenerative changes of the lower lumbar vertebrae. Other: Large amount of fecal material is seen in the colon. RAD/Sacrum-Coccyx min 2 Views IMPRESSION: No acute abnormality is seen. Reading Location: [id number] CC: Dr. Daniel Dodge MD; Dr. Bjorn Soares MD Motel Maid: Signed Normal [facility] 25(OH)D3 SerPl-mCncon 2024 25-hydroxyvitamin D3 [Mass/Vol] 36.1 ng/mL Normal 31.0-80.0 [facility] Comment on above: Order Comment: Speci men Type: BLOOD SPECIMENOrdering Facility: [facility] Address: [address] [place] [address] Performed By: #### 1 989-3 ####[facility] LABIA [id number] [address] [place] 25-hydroxyvitamin D3 [Mass/V ol]on 06-27-2024 Interpretation and review of laboratory results Normal [facility] Bacteria Ur Culton Bacteria identified Cx Nom (U) ORGANISM ID: 1 50,000-<100,000 CFU/ml Normal urogenital dar Normal [facility] Comment on above: Performed By: #### 2 4356-8, 630-4 ####[facility] LABIA [id number] [address] [place] CBC W Auto Differential pane l (Bld)on 06-27-2024 Basophils (Bld) [#/Vol] [facility] C [facility] Basophils/100 WBC (Bld) 0.2 % C [facility] Differential cell count method Nom (Bld) Auto [facility] Eosinophils (Bld) [#/Vol] 0.13 10*3/uL [facility] Eosinophils/100 WBC (Bld) 1 % [facility] Erythrocyte distribution width (RBC) [Ratio] 14.7 % 11.5 - 15.0 % [facility] Hematocrit (Bld) [Volume fraction] 43.9 % 36.0 - 46.0 % [facility] Hemoglobin (Bld) [Mass/Vol] 14.2 g/dL 11.5 - 15.5 g/dL [facility] Immature granulocytes (Bld) [#/Vol] 0.08 10*3/uL [facility] Immature granulocytes/100 WBC (Bld) 0.6 % [facility] Interpretation and review of laboratory results Abnormal [facility] Lymphocytes (Bld) [#/Vol] 1.59 10*3/uL [facility] Lymphocytes/100 WBC (Bld) 12.7 % [facility] MCH (RBC) [Entitic mass] 29.5 pg 26. 0 - 34.0 pg [facility] MCHC (RBC) [Mass/Vol] 32.3 g/dL 30.5 - 36.0 g/dL [facility] MCV (RBC) [Entitic vol] 91.1 fL 80.0 - 100.0 fL [facility] Monocytes (Bld) [#/Vol] 0.91 10*3/uL High [facility] Monocytes/100 WBC (Bld) 7.3 % C [facility] Neutrophils (Bld) [#/Vol] 9.82 10*3/uL High [facility] Neutrophils/100 WBC (Bld) 78.2 % [facility] Nucleated RBC (Bld) [#/Vol] [facility] Nucleated RBC/100 WBC (Bld) [Ratio] 0 % /100 WBC [facility] Platelet mean volume (Bld) [Entitic vol] 9.5 fL 9.0 - 12.7 fL [facility] Platelets (Bld) [#/Vol] 361 10*3/uL [facility] RBC (Bld) [#/Vol] 4.82 10*6/uL 3.90 - 5.2 0 m/uL [facility] WBC (Bld) [#/Vol] 12.55 10*3/uL [facility] Basophils (Bld) [#/Vol] 10*3/uL Normal <0.11 [facility] Comment on above: Order Comment: Speci men Type: BLOOD SPECIMENOrdering Facility: [facility] Address: [address] [place] [address] Performed By: #### 5 7021-8 ####[facility] [id number] [address] [place] Basophils/100 WBC (Bld) 0.2 % Normal C [facility] Comment on above: Order Comment: Speci men Type: BLOOD SPECIMENOrdering Facility: [facility] Address: [address] [place] [address] Performed By: #### 5 7021-8 ####[facility] [id number] [place] [address] [place] Differential cell count method Nom (Bld) Auto Normal [facility] Comment on above: Order Comment: Speci men Type: BLOOD SPECIMENOrdering Facility: [facility] Address: [address] [place] [address] Performed By: #### 5 7021-8 ####[facility] [id number] [place] [address] [place] Eosinophils (Bld) [#/Vol] 0.13 10*3/uL Normal <0.46 [facility] Comment on above: Order Comment: Speci men Type: BLOOD SPECIMENOrdering Facility: [facility] Address: [address] [place] [address] Performed By: #### 5 7021-8 ####[facility] [id number] [place] [address] [place] Eosinophils/100 WBC (Bld) 1.0 % Normal [facility] Comment on above: Order Comment: Speci men Type: BLOOD SPECIMENOrdering Facility: [facility] Address: [address] [place] [address] Performed By: #### 5 7021-8 ####[facility] [id number] [place] [address] [place] Erythrocyte distribution width (RBC) [Ratio] 14.7 % Normal 11.5-15.0 [facility] Comment on above: Order Comment: Speci men Type: BLOOD SPECIMENOrdering Facility: [facility] Address: [address] [place] [address] Performed By: #### 5 7021-8 ####[facility] [id number] [place] [address] [place] Hematocrit (Bld) [Volume fraction] 43.9 % Normal 36.0-46.0 [facility] Comment on above: Order Comment: Speci men Type: BLOOD SPECIMENOrdering Facility: [facility] Address: [address] [place] [address] Performed By: #### 5 7021-8 ####[facility] [id number] [place] [address] [place] Hemoglobin (Bld) [Mass/Vol] 14.2 g/dL Normal 11.5-15. 5 [facility] Comment on above: Order Comment: Speci men Type: BLOOD SPECIMENOrdering Facility: [facility] Address: [address] [place] [address] Performed By: #### 5 7021-8 ####[facility] [id number] [place] [address] [place] Immature granulocytes (Bld) [#/Vol] 0.08 10*3/uL Normal <0.10 [facility] Comment on above: Order Comment: Speci men Type: BLOOD SPECIMENOrdering Facility: [facility] Address: [address] [place] [address] Performed By: #### 5 7021-8 ####[facility]CL[facility] [id number] [place] [address] [place] Immature granulocytes/100 WBC (Bld) 0.6 % Normal [facility] Comment on above: Order Comment: Speci men Type: BLOOD SPECIMENOrdering Facility: [facility] Address: [address] [place] [address] Performed By: #### 5 7021-8 ####[facility] [id number] [place] [address] [place] Lymphocytes (Bld) [#/Vol] 1.59 10*3/uL Normal 1.00-4.0 0 [facility] Comment on above: Order Comment: Speci men Type: BLOOD SPECIMENOrdering Facility: [facility] Address: [address] [place] [address] Performed By: #### 5 7021-8 ####[facility]INGSCHARLENE [id number] [address] [place] Lymphocytes/100 WBC (Bld) 12.7 % Normal [facility] Comment on above: Order Comment: Speci men Type: BLOOD SPECIMENOrdering Facility: [facility] Address: [address] [place] [address] Performed By: #### 5 7021-8 ####[facility] [id number] [place] [address] [place] MCH (RBC) [Entitic mass] 29.5 pg Normal 26.0-34.0 [facility] Comment on above: Order Comment: Speci men Type: BLOOD SPECIMENOrdering Facility: [facility] Address: [address] [place] [address] Performed By: #### 5 7021-8 ####[facility] [id number] [place] [address] [place] MCHC (RBC) [Mass/Vol] 32.3 g/dL Normal 30.5-36.0 [facility] Comment on above: Order Comment: Speci men Type: BLOOD SPECIMENOrdering Facility: [facility] Address: [address] [place] [address] Performed By: #### 5 7021-8 ####[facility] [id number] [place] [address] [place] MCV (RBC) [Entitic vol] 91.1 fL Normal 80.0-100.0 C [facility] Comment on above: Order Comment: Speci men Type: BLOOD SPECIMENOrdering Facility: [facility] Address: [address] [place] [address] Performed By: #### 5 7021-8 ####[facility] MILLWNCLIA [id number] [place] [address] [place] Monocytes (Bld) [#/Vol] 0.91 10*3/uL High <0.87 [facility] Comment on above: Order Comment: Speci men Type: BLOOD SPECIMENOrdering Facility: [facility] Address: [address] [place] [address] Performed By: #### 5 7021-8 ####[facility] [id number] [place] [address] [place] Monocytes/100 WBC (Bld) 7.3 % Normal [facility] Comment on above: Order Comment: Speci men Type: BLOOD SPECIMENOrdering Facility: [facility] Address: [address] [place] [address] Performed By: #### 5 7021-8 ####[facility] [id number] [place] [address] [place] Neutrophils (Bld) [#/Vol] 9.82 10*3/uL High 1.45-7.5 0 [facility] Comment on above: Order Comment: Speci men Type: BLOOD SPECIMENOrdering Facility: [facility] Address: [address] [place] [address] Performed By: #### 5 7021-8 ####[facility] [id number] [place] [address] [place] Neutrophils/100 WBC (Bld) 78.2 % Normal [facility] Comment on above: Order Comment: Speci men Type: BLOOD SPECIMENOrdering Facility: [facility] Address: [address] [place] [address] Performed By: #### 5 7021-8 ####[facility] [id number] [place] [address] [place] Nucleated RBC (Bld) [#/Vol] 10*3/uL Normal <0.01 [facility] Comment on above: Order Comment: Speci men Type: BLOOD SPECIMENOrdering Facility: [facility] Address: [address] [place] [address] Performed By: #### 5 7021-8 ####[facility] [id number] [place] [address] [place] Nucleated RBC/100 WBC (Bld) [Ratio] 0.0 /100 WBC Normal [facility] Comment on above: Order Comment: Speci men Type: BLOOD SPECIMENOrdering Facility: [facility] Address: [address] [place] [address] Performed By: #### 5 7021-8 ####[facility] [id number] [place] [address] [place] Platelet mean volume (Bld) [Entitic vol] 9.5 fL Normal 9.0-12.7 [facility] Comment on above: Order Comment: Speci men Type: BLOOD SPECIMENOrdering Facility: [facility] Address: [address] [place] [address] Performed By: #### 5 7021-8 ####[facility] [id number] [place] [address] [place] Platelets (Bld) [#/Vol] 361 10*3/uL Normal 150-400 [facility] Comment on above: Order Comment: Speci men Type: BLOOD SPECIMENOrdering Facility: [facility] Address: [address] [place] [address] Performed By: #### 5 7021-8 ####[facility] [id number] [place] [address] [place] RBC (Bld) [#/Vol] 4.82 10*6/uL Normal 3.90-5.20 [facility] Comment on above: Order Comment: Speci men Type: BLOOD SPECIMENOrdering Facility: [facility] Address: [address] [place], [place] [address] Performed By: #### 5 7021-8 ####[facility] MAYNARDCAGUASNCLIA [id number] [place] [address] [place] WBC (Bld) [#/Vol] 12.55 10*3/uL High 3.70-11.00 [facility] Comment on above: Order Comment: Speci men Type: BLOOD SPECIMENOrdering Facility: [facility] Address: [address] [place], [place] [address] Performed By: #### 5 7021-8 ####[facility] ALEYDACAGUASNCLIA [id number] [address] OF [facility] CNOVon 06-27-2024 CNOV Office Visit (FAMPWS ) JIL DÍAZ ([id number]) 1940 F Date Time Provider Department 06/27/24 10:00 AM [facility] During your visit today, we recorded the following information about you: Temperature Pulse Respiration Blood pressure 98.4 degrees 97/minute 16/minute 136/74 Weight 58.6 kg Tony Soares MD 07/02/2024 11:00 AM Signed Chief Complaint Patient presents with: Hospital F/U: 06/18/24 discharge and then ER visit same day HPI Jilboo Díaz is a 84 year old female who presents here today for Hospital Discharge Follow up. Accompanied today by son and daughter in law. Patient admitted to [facility] from 06/15 to 06/18 for acute respiratory failure 2/2 COVID 19 infection with superimposed bacterial pneumonia. Treated inpatient with Dexamethasone, ceftriaxone and azithromycin while inpatient. Discharged on Augmentin BID x 3 days, Mucinex, dexamethasone x 6 days, tylenol and tramadol. Patient returned to the ER on 06/18 for a fall that occurred at home. Fell backwards and hit the back of her head s well as right forearm causing skin tearing. CT scan of the brain was obtained which was negative for hemorrhage. Noted right posterior scalp contusion on exam. Xrays of the right forearm negative for fracture. Advised she could have occult fracture here with some swelling and was advised on RICE therapy. Skin tears dressed. Discharged home with f/u in 5-7 days with our office. Since discharge, patient states that she has some productive cough with clear sputum. Denies SOB, wheezing, chest pain, chest congestion, fever/chills, nausea, vomiting, diarrhea, hemoptysis. She did complete abx and steroid regimen. Ran out of mucinex. Not treating with anything OTC at this point. No recurrent falls since discharge. No pain on the back of her head, but has a knot where she fell which is slowly healing. Has some pain on the right elbow when resting on it. Using walker for ambulation which works well for her balance. Patient is staying with son and daughter in law who are helping her with ADLs due to memory loss. Asking about home health referral to assist with ADLs at home. Discussed they may need Aide as well and will refer to social work to discuss options for this vs snf. Advised family to call neurology for repeat evaluation earlier this week due to memory concerns, but have not called yet. Past medical history, appointments, medications, allergies reviewed. Previous Medical History PAST MEDICAL HISTORY Diagnosis Date Aortic stenosis moderate Atrial fibrillation (HCC) 04/21/2023 Basal cell carcinoma Cataracts, bilateral s/p removal Chronic kidney disease (CKD), stage III (moderate) ([facility] Chronic urticaria seeing Dr. Card Concussion 05/2015 fell off step stool COVID-19 GERD (gastroesophageal reflux disease) with esophagitis on EGD Glaucoma Hamstring strain bilateral legs Heart murmur History of shingles 2015 Hyperlipidemia Hypertension Insomnia Macular degeneration Melanoma (HCC) Mitral regurgitation Dr. Ibarra Post herpetic neuralgia lidocaine patch Premature contractions, atrial PUD (peptic ulcer disease) 01/2023 Renal cysts, acquired, bilateral Previous Surgical History PAST SURGICAL HISTORY Procedure Laterality Date APPENDECTOMY 1969 CATARACT EXTRACTION HX Bilateral 2012 CATARACT SURGERY, COMPLEX Bilateral R 10/2012-L 12/2012 CHOLECYSTECTOMY 2002 COLONOSCOPY 12/11/2015 10mm adenomatous polyp found, repeat in 3 years COLONOSCOPY FLX DX W/COLLJ SPEC WHEN PFRMD 02/15/2019 Colonoscopy. repeat in 5 years. EGD 12/11/2015 post gastric ulcer deformity noted in pre-pyloric region and antrum. ESOPHAGOGASTRODUODENO SCOPY TRANSORAL DIAGNOSTIC 02/15/2019 EGD HEMORRHOIDECTOMY 2010 MELANOMA [...] on File Prior to Visit Medication Sig atorvastatin (LIPITOR) 20 mg tablet Take 1 tablet by mouth once daily. famotidine (PEPCID) 40 mg tablet Take 1 tablet by mouth two times a day. apixaban (ELIQUIS) 5 mg tab(s) Take 5 mg by mouth two times a day. potassium chloride 20 mEq TbER Take 20 mEq by mouth once daily. furosemide (LASIX) 40 mg tablet Take 40 mg by mouth once daily. dilTIAZem CD (CARDIZEM CD, CARTIA XT) 120 mg 24 hr capsule Take 1 capsule by mouth once daily. losartan (COZAAR) 50 mg tablet Take 1 t (more content not included)... Normal [facility] 06-27-2024 [facility] Telephone (RAFA) JIL DÍAZ ([id number]) 1940 F Date Time Provider Department 06/27/24 JULIETTE ROBLES During your visit today, we recorded the following information about you: Juliette Robles MSW 06/27/2024 1:06 PM Signed Sw left message for patient son to call this Sw back to discuss home demonstration agent assistance options in the area. Juliette Robles, MECHANICAL APPRENTICE 06/27/2024 2:27 PM Signed Clark spoke with patient son Ike and he is looking for resources to help with patient at home and transitioning to AL/LTC. Clark noted that she has home demonstration agent resources along with AL/LTC resources ie. [employer], [employer] that she can compile and mail out to patient. Clark also has [facility] Old[facility] Adult Resource Guide to mail to patient address listed in chart. Ike notes that patient currently resides with son and daughter in law. Allergies As of Date: 06/27/2024 Noted Allergy Reaction OXYCODONE 03/11/2017 9 - Itching Date Reviewed: 06/27/2024 Reviewed by: Beatriz Isaac LPN - Fully Assessed Prescriptions as of 06/28/2024 - benzonatate (TESSALON PERLE) 100 mg capsule Take 1 capsule by mouth three times a day as needed for up to 10 days. - mupirocin (BACTROBAN) 2 % ointment Apply 1 application to affected area three times a day for 14 days. - atorvastatin (LIPITOR) 20 mg tablet Take 1 tablet by mouth once daily. - famotidine (PEPCID) 40 mg tablet Take 1 tablet by mouth two times a day. - apixaban (ELIQUIS) 5 mg tab(s) Take 5 mg by mouth two times a day. - potassium chloride 20 mEq TbER Take 20 mEq by mouth once daily. - furosemide (LASIX) 40 mg tablet Take 40 mg by mouth once daily. - dilTIAZem CD (CARDIZEM CD, CARTIA XT) 120 mg 24 hr capsule Take 1 capsule by mouth once daily. - losartan (COZAAR) 50 mg tablet Take 1 tablet by mouth once daily. - dorzolamide-timolol (COSOPT) 22.3-6.8 mg/mL ophthalmic solution Use 1 Drop in both eyes twice daily. - brimonidine (ALPHAGAN) 0.2 % ophthalmic solution - gabapentin (NEURONTIN) 300 mg capsule Take 1 tablet morning and bedtime May take one tablet in afternoon as needed for pain Per Dr. Martinez - lidocaine (LIDODERM) 5 % Apply 1 Patch as directed every 12 hours. - latanoprost (XALATAN) 0.005 % ophthalmic solution Use 1 Drop in both eyes once daily. - vit C,I-Zx-kyjek-lutein-z eaxan (PRESERVISION AREDS-2) 250-90-40-1 mg Take 1 tablet by mouth twice daily at 6AM and 9PM. - BIOTIN ORAL Take 5,000 mg by mouth once daily. - Cholecalciferol, Vitamin D3, 25 mcg (1,000 unit) cap Take 1,000 Units by mouth once daily. - CYANOCOBALAMIN, VITAMIN B-12, (VITAMIN B-12 ORAL) Take 1,000 mg by mouth once daily. Problem List As Of Date 06/27/2024 Noted Resolved Chronic urticaria [L50.8] 05/13/2016 Hypertension [I10] Insomnia [G47.00] Post herpetic neuralgia [B02.29] Heart murmur [R01.1] GERD (gastroesophageal reflux disease) [K21.9] Hyperlipidemia [E78.5] Melanoma (HCC) [C43.9] 09/07/2022 VILLEGAS (dyspnea on exertion) [R06.09] 11/20/2017 Bilateral carotid artery disease (HCC) [I77.9] 11/20/2017 Mitral regurgitation [I34.0] Fall [W19.XXXA] 12/19/2018 Aortic stenosis [I35.0] OAB (overactive bladder) [N32.81] 04/09/2021 Mixed urge and stress incontinence [N39.46] 04/09/2021 Pulmonary arterial hypertension (HCC) [I27.21] 09/07/2022 Chronic kidney disease, stage 3a (HCC) [N18.31] 09/13/2023 Atrial fibrillation (HCC) [I48.91] 04/21/2023 Glaucoma [H40.9] 09/15/2023 Gait disturbance [R26.9] 05/04/2024 Encounter Status:Closed by JULIETTE ROBLES on 06/28/24 Normal [facility] metabolic 2000 panelOrdered By: Bev Jones on 06-27-2024 Albumin [Mass/Vol] 3.6 g/dL Low 3.9 - 4.9 g/dL [facility] ALP [Catalytic activity/Vol] 115 U/L 34 - 123 U/L [facility] ALT [Catalytic activity/Vol] 25 U/L 7 - 38 U/L [facility] Anion gap [Moles/Vol] 17 mmol/L High 8 - 15 mmol/L [facility] AST [Catalytic activity/Vol] 18 U/L 13 - 35 U/L [facility] Bilirubin [Mass/Vol] 1 mg/dL 0.2 - 1 .3 mg/dL [facility] Calcium [Mass/Vol] 9 mg/dL 8.5 - 10. 2 mg/dL [facility] Chloride [Moles/Vol] 103 mmol/L 98 - 10 7 mmol/L [facility] CO2 [Moles/Vol] 18 mmol/L Low 22 - 30 mmol/L [facility] Creatinine [Mass/Vol] 0.84 mg/dL 0.58 - 0.96 mg/dL [facility] GFR/1.73 sq M.predicted among non-blacks MDRD (S/P/Bld) [Vol rate/Area] 68 mL/min/{1.73_m2} - [facility] Comment on above: Estimated Glomerular Filtration Rate (eGFR) is calculated using the 2020 CKD-EPI creatinine equation. This equation utilizes serum creatinine, sex, and age as parameters. The creatinine assay has traceable calibration to isotope dilution-mass spectrometry. Refer to KDIGO guidelines for clinical interpretation. In patients with unstable renal function, e.g. those with acute kidney injury, the eGFR may not accurately reflect actual GFR. Glucose [Mass/Vol] 177 mg/dL High 74 - 99 mg/dL [facility] Comment on above: The [place] Diabete s Association (ADA) provides guidance for cutoff values for fasting glucose and random glucose. The ADA defines fasting as no caloric intake for at least 8 hours. Fasting plasma glucose results between 100 to 125 mg/dL indicate increased risk for diabetes (prediabetes). Fasting plasma glucose results greater than or equal to 126 mg/dL meet the criteria for diagnosis of diabetes. In the absence of unequivocal hyperglycemia, results should be confirmed by repeat testing. In a patient with classic symptoms of hyperglycemia or hyperglycemic crisis, random plasma glucose results greater than or equal to 200 mg/dL meet the criteria for diagnosis of diabetes. Reference: Standards of Medical Care in Diabetes 2016, [place] Diabetes Association. Diabetes Care. 2016.39(Suppl 1). Interpretation and review of laboratory results Abnormal [facility] Potassium [Moles/Vol] 3.9 mmol/L 3.7 - 5.1 mmol/L [facility] Protein [Mass/Vol] 6.5 g/dL 6.3 - 8.0 g/dL [facility] Sodium [Moles/Vol] 138 mmol/L 136 - 144 mmol/L [facility] Urea nitrogen [Mass/Vol] 23 mg/dL High 7 - 21 mg/dL [facility] Comprehensive metabolic 2000 panelon 06-27-2024 Albumin [Mass/Vol] 3.6 g/dL Low 3.9-4.9 [facility] Comment on above: Order Comment: Speci men Type: BLOOD SPECIMENOrdering Facility: [facility] Address: [address] [place], [place] [id number] Performed By: #### 2 4323-8 ####[facility] [id number] [place] [address] [place] ALP [Catalytic activity/Vol] 115 U/L Normal 34-123 [facility] Comment on above: Order Comment: Speci men Type: BLOOD SPECIMENOrdering Facility: [facility] Address: [address] [place] [address] Performed By: #### 2 4323-8 ####[facility] [id number] [place] [address] [place] ALT [Catalytic activity/Vol] 25 U/L Normal 7-38 [facility] Comment on above: Order Comment: Speci men Type: BLOOD SPECIMENOrdering Facility: [facility] Address: [address] [place] [address] Performed By: #### 2 4323-8 ####[facility] [id number] [place] [address] [place] Anion gap [Moles/Vol] 17 mmol/L High 8-15 [facility] Comment on above: Order Comment: Speci men Type: BLOOD SPECIMENOrdering Facility: [facility] Address: [address] [place] [address] Performed By: #### 2 4323-8 ####[facility] MILLTOWNCLIA [id number] [place] [address] [place] AST [Catalytic activity/Vol] 18 U/L Normal 13-35 [facility] Comment on above: Order Comment: Speci men Type: BLOOD SPECIMENOrdering Facility: [facility] Address: [address] [place] [address] Performed By: #### 2 4323-8 ####[facility] MILLTOWNCLIA [id number] [place] [address] [place] Bilirubin [Mass/Vol] 1.0 mg/dL Normal 0.2-1.3 [facility] Comment on above: Order Comment: Speci men Type: BLOOD SPECIMENOrdering Facility: [facility] Address: [address] [place] [address] Performed By: #### 2 4323-8 ####[facility]ITAL[facility]CL[facility] [id number] [place] [address] [place] Calcium [Mass/Vol] 9.0 mg/dL Normal 8.5-10.2 [facility] Comment on above: Order Comment: Speci men Type: BLOOD SPECIMENOrdering Facility: [facility] Address: [address] [place] [address] Performed By: #### 2 4323-8 ####[facility] MILLTOWNCLIA [id number] [place] [address] [place] Chloride [Moles/Vol] 103 mmol/L Normal 98-107 [facility] Comment on above: Order Comment: Speci men Type: BLOOD SPECIMENOrdering Facility: [facility] Address: [address] [place], [place] [phone] Performed By: #### 2 4323-8 ####[facility] MILLTOWNCLIA [id number] [place] [address] [place] CO2 [Moles/Vol] 18 mmol/L Low 22-30 [facility] Comment on above: Order Comment: Speci men Type: BLOOD SPECIMENOrdering Facility: [facility] Address: [address] [place] [address] Performed By: #### 2 4323-8 ####[facility] YEVGENIYJATIN [id number] [place] [address] [place] Creatinine [Mass/Vol] 0.84 mg/dL Normal 0.58-0.96 [facility] Comment on above: Order Comment: Speci men Type: BLOOD SPECIMENOrdering Facility: [facility] Address: [address] [place] [address] Performed By: #### 2 4323-8 ####[facility]INGSNCJATIN [id number] [place] [address] [place] Creatinine and Glomerular filtration rate.predicted panel (S/P/Bld) 68 mL/min/1.73m??? Normal >=60 [facility] Comment on above: Order Comment: Speci men Type: BLOOD SPECIMENOrdering Facility: [facility] Address: [address] [place] [address] Result Comment: Karen mated Glomerular Filtration Rate (eGFR) is calculated using the 2020 CKD-EPI creatinine equation. This equation utilizes serum creatinine, sex, and age as parameters. The creatinine assay has traceable calibration to isotope dilution-mass spectrometry. Refer to KDIGO guidelines for clinical interpretation. In patients with unstable renal function, e.g. those with acute kidney injury, the eGFR may not accurately reflect actual GFR. Performed By: #### 2 4323-8 ####[facility] SPRINGSNCLIA [id number] [place] [address] [place] Glucose [Mass/Vol] 177 mg/dL High 74-99 [facility] Comment on above: Order Comment: Speci men Type: BLOOD SPECIMENOrdering Facility: [facility] Address: [address] [place] [id number] Result Comment: The [place] Diabetes Association (ADA) provides guidance for cutoff values for fasting glucose and random glucose. The ADA defines fasting as no caloric intake for at least 8 hours. Fasting plasma glucose results between 100 to 125 mg/dL indicate increased risk for diabetes (prediabetes). Fasting plasma glucose results greater than or equal to 126 mg/dL meet the criteria for diagnosis of diabetes. In the absence of unequivocal hyperglycemia, results should be confirmed by repeat testing. In a patient with classic symptoms of hyperglycemia or hyperglycemic crisis, random plasma glucose results greater than or equal to 200 mg/dL meet the criteria for diagnosis of diabetes. Reference: Standards of Medical Care in Diabetes 2016, [place] Diabetes Association. Diabetes Care. 2016.39(Suppl 1). Performed By: #### 2 4323-8 ####[facility] [id number] [place] [address] [place] Potassium [Moles/Vol] 3.9 mmol/L Normal 3.7-5.1 [facility] Comment on above: Order Comment: Speci men Type: BLOOD SPECIMENOrdering Facility: [facility] Address: [address] [place] [address] Performed By: #### 2 4323-8 ####[facility] [id number] [place] [address] [place] Protein [Mass/Vol] 6.5 g/dL Normal 6.3-8.0 [facility] Comment on above: Order Comment: Speci men Type: BLOOD SPECIMENOrdering Facility: [facility] Address: [address] [place] [id number] Performed By: #### 2 4323-8 ####[facility] [id number] [place] [address] [place] Sodium [Moles/Vol] 138 mmol/L Normal 136-144 [facility] Comment on above: Order Comment: Speci men Type: BLOOD SPECIMENOrdering Facility: [facility] Address: [address] [phone] Performed By: #### 2 4323-8 ####[facility] VIZCAINO [id number] [address] [place] [facility] Urea nitrogen [Mass/Vol] 23 mg/dL High 7-21 [facility] Comment on above: Order Comment: Speci men Type: BLOOD SPECIMENOrdering Facility: [facility] Address: [address] [place], [place] [address] [address] Performed By: #### 2 4323-8 ####[facility] IGNACIONCJATIN [id number] [place] [address] [place] No Panel Informationon 06-27 Radiology Study observation (narrative) [facility] Urinalysis complete panel (U )on 06-27-2024 Bacteria LM.HPF (Urine sed) [#/Area] Negative Negative /HPF [facility] Bilirubin Ql (U) Negative Negative [facility] Calcium Oxalate Crystals Moderate Abnormal Non e Seen /HPF [facility] Clarity (Unsp spec) Clear Clear [facility] Color (U) Yellow Yellow [facility] Epithelial cells LM.HPF (Urine sed) [#/Area] Moderate /HPF [facility] Glucose Test strip (U) [Mass/Vol] Negative Negative [facility] Hemoglobin Ql (U) Trace Abnormal Negative [facility] Hyaline casts (Urine sed) [#/Area] 1-3 /LPF Abnormal 0 /LPF [facility] Interpretation and review of laboratory results Abnormal [facility] Ketones Ql (U) Negative Negative [facility] Leukocyte esterase Test strip Ql (U) 1+ Abnormal Negative [facility] Nitrite Ql (U) Negative Negative [facility] pH (U) 5.5 [pH] NINF - 8.5 [facility] Protein (U) [Mass/Vol] Trace Abnormal Negative Cl [facility] RBC LM.HPF (Urine sed) [#/Area] /[HPF] Abnormal 0-2 /HPF [facility] Specific gravity (U) [Rel density] 1.025 1.005 - 1.030 [facility] Urobilinogen Ql (U) 0.2 EU/dL 0.2-1.0 EU/dL [facility] WBC LM.HPF (Urine sed) [#/Area] 11-20 /HPF Abnormal 0-5 /HPF [facility] This test was developed and its performance characteristics determined by [facility]'s [employer] [facility] Pathology and Laboratory Medicine [place] ([facility]). It has not been cleared or approved by the FDA. [facility] is regulated under CLIA as qualified to perform high-complexity testing. This test is used for clinical purposes. It should not be regarded as investigational or for research. [facility] Bacteria LM.HPF (Urine sed) [#/Area] Negative Normal Negative [facility] Comment on above: Order Comment: Speci men Type: URINE SPECIMENOrdering Facility: [facility] Address: [address] [place] [address] Performed By: #### 2 4356-8, 630-4 ####[facility] LABCLIA [id number] [place] [address] [place] Bilirubin Ql (U) Negative Normal Negative [facility] Comment on above: Order Comment: Speci men Type: URINE SPECIMENOrdering Facility: [facility] Address: [address] [place] [address] Performed By: #### 2 4356-8, 630-4 ####[facility] LABCLIA [id number] [place] [address] [place] CALCIUM OXALATE CRYSTALS (UA) Moderate Abnormal None Seen [facility] Comment on above: Order Comment: Speci men Type: URINE SPECIMENOrdering Facility: [facility] Address: [address] [place] [address] Performed By: #### 2 4356-8, 630-4 ####[facility] LABCLIA [id number] [place] [id number] [place] Clarity (Unsp spec) Clear Normal Clear [facility] Comment on above: Order Comment: Speci men Type: URINE SPECIMENOrdering Facility: [facility] Address: [address] [place] [address] Performed By: #### 2 4356-8, 630-4 ####[facility] LABCLIA [id number] [address], [place] [address] [place] Color (U) Yellow Normal Yellow [facility] Comment on above: Order Comment: Speci men Type: URINE SPECIMENOrdering Facility: [facility] Address: [address] [place] [address] Performed By: #### 2 4356-8, 630-4 ####[facility] LABCLIA [id number] [address], [place] [address] [place] Epithelial cells LM.HPF (Urine sed) [#/Area] Moderate Normal [facility] Comment on above: Order Comment: Speci men Type: URINE SPECIMENOrdering Facility: [facility] Address: [address] [place] [address] Performed By: #### 2 4356-8, 630-4 ####[facility] LABCLIA [id number] [address], [address] OF [facility] Glucose Test strip (U) [Mass/Vol] Negative Normal Negative [facility] Comment on above: Order Comment: Speci men Type: URINE SPECIMENOrdering Facility: [facility] Address: [address] [place] [address] Performed By: #### 2 4356-8, 630-4 ####[facility] LABCLIA [id number] [address], [place] [address] [place] Hemoglobin Ql (U) Trace Abnormal Negative [facility] Comment on above: Order Comment: Speci men Type: URINE SPECIMENOrdering Facility: [facility] Address: [address] [place] [address] Performed By: #### 2 4356-8, 630-4 ####[facility] LABCLIA [id number] [address], [facility]95 [place] Hyaline casts (Urine sed) [#/Area] 1-3 /LPF Abnormal 0 /LPF [facility] Comment on above: Order Comment: Speci men Type: URINE SPECIMENOrdering Facility: [facility] Address: [address] [place] [address] Performed By: #### 2 4356-8, 630-4 ####[facility] LABCLIA [id number] [facility] [id number] [address] [place] Ketones Ql (U) Negative Normal Negative [facility] Comment on above: Order Comment: Speci men Type: URINE SPECIMENOrdering Facility: [facility] Address: [address] [place] [address] Performed By: #### 2 4355-8, 630-4 ####[facility] LABCLIA [id number] [address], [facility]95 [place] Leukocyte esterase Test strip Ql (U) 1+ Abnormal Negative [facility] Comment on above: Order Comment: Speci men Type: URINE SPECIMENOrdering Facility: [facility] Address: [address] [place] [address] Performed By: #### 2 4356-8, 630-4 ####[facility] LABCLIA [id number] [address], [facility]95 [place] Nitrite Ql (U) Negative Normal Negative [facility] Comment on above: Order Comment: Speci men Type: URINE SPECIMENOrdering Facility: [facility] Address: [address] [place] [address] Performed By: #### 2 4356-8, 630-4 ####[facility] LABCLIA [id number] [address] [place] [address] [place] pH (U) 5.5 [pH] Normal <8.5 [facility] Comment on above: Order Comment: Speci men Type: URINE SPECIMENOrdering Facility: [facility] Address: [address] [place] [address] Performed By: #### 2 4356-8, 630-4 ####[facility] LABCLIA [id number] [place] [address] [place] Protein (U) [Mass/Vol] Trace Abnormal Negative Cl [facility] Comment on above: Order Comment: Speci men Type: URINE SPECIMENOrdering Facility: [facility] Address: [address] [place] [address] Performed By: #### 2 4356-8, 630-4 ####[facility] LABIA [id number] [place] [address] [place] RBC LM.HPF (Urine sed) [#/Area] /[HPF] Abnormal 0-2 /HPF [facility] Comment on above: Order Comment: Speci men Type: URINE SPECIMENOrdering Facility: [facility] Address: [address] [place] [address] Performed By: #### 2 4356-8, 630-4 ####[facility] H[facility]PITAL[facility] [id number] [place] [address] [place] Specific gravity (U) [Rel density] 1.025 Normal 1.005-1.030 [facility] Comment on above: Order Comment: Speci men Type: URINE SPECIMENOrdering Facility: [facility] Address: [address] [place] [address] Performed By: #### 2 4356-8, 630-4 ####[facility] LABIA [id number] [place] [address] [place] Urobilinogen Ql (U) 0.2 EU/dL Normal 0.2-1.0 EU/dL [facility] Comment on above: Order Comment: Speci men Type: URINE SPECIMENOrdering Facility: [facility] Address: [address] [place] [address] Performed By: #### 2 4356-8, 630-4 ####[facility] LABIA [id number] [place] [address] [place] WBC LM.HPF (Urine sed) [#/Area] 11-20 /HPF Abnormal 0-5 /HPF [facility] Comment on above: Order Comment: Speci men Type: URINE SPECIMENOrdering Facility: [facility] Address: [address] [place] [address] Performed By: #### 2 4356-8, 630-4 ####[facility] LABCLIA [id number] [place] [address] [place] VITAMIN D 25 HYDROXYon 06-27 25-hydroxyvitamin D3 [Mass/Vol] 36.1 ng/mL 31.0 - 80.0 ng/mL [facility] XR CHEST 2V FRONTAL/LATon XR CHEST 2V FRONTAL/LAT * * *Final Repor t* * * DATE OF EXAM: Jun 27 2024 12:04PM WOX 5291 - XR CHEST 2V FRONTAL/LAT / PROCEDURE REASON: multiple diagnoses * * * * Physician Interpretation * * * * EXAMINATION: CHEST RADIOGRAPH (2 VIEW FRONTAL and LATERAL) CLINICAL HISTORY: COVID-19 virus infection Bacterial pneumonia MQ: XC2_6 EXAM DATE/TIME: 06/27/2024 12:04 PM COMPARISON: No relevant prior studies available. RESULT: Lines, tubes, and devices: None. Lungs and pleura: No consolidation. No lung mass. No pleural effusion. No pneumothorax. Cardiomediastinal silhouette: Normal cardiomediastinal silhouette. Bones and soft tissues: Degenerative disease of the thoracic spine. IMPRESSION: No acute radiographic abnormality. Motel Maid: PSCB Transcribe Date/Time: Jun 27 2024 12:08P Dictated by : MY HORNE MD This examination was interpreted and the report reviewed and electronically signed by: MY HORNE MD on Jun 27 2024 12:09PM EST [id number] N Normal [facility] XR Chest PA and Lateralon IMPRESSION: No acute radiographic abnormality. Motel Maid: PSCB Transcribe Date/Time: Jun 27 2024 12:08P Dictated by : MY HORNE MD This examination was interpreted and the report reviewed and electronically signed by: MY HORNE MD on Jun 27 2024 12:09PM [facility] DIVISION OF RADIOLOGY * * *Final Report* * * DATE OF EXAM: Jun 27 2024 12:04PM WOX 5291 - XR CHEST 2V FRONTAL/LAT / PROCEDURE REASON: multiple diagnoses * * * * Physician Interpretation * * * * EXAMINATION: CHEST RADIOGRAPH (2 VIEW FRONTAL & LATERAL) CLINICAL HISTORY: COVID-19 virus infection Bacterial pneumonia MQ: XC2_6 EXAM DATE/TIME: 06/27/2024 12:04 PM COMPARISON: No relevant prior studies available. RESULT: Lines, tubes, and devices: None. Lungs and pleura: No consolidation. No lung mass. No pleural effusion. No pneumothorax. Cardiomediastinal silhouette: Normal cardiomediastinal silhouette. Bones and soft tissues: Degenerative disease of the thoracic spine. DIVISION OF RADIOLOGY Provider, [facility] - 06/27/2024 * * *Final Report* * * DATE OF EXAM: Jun 27 2024 12:04PM WOX 5291 - XR CHEST 2V FRONTAL/LAT / PROCEDURE REASON: multiple diagnoses * * * * Physician Interpretation * * * * EXAMINATION: CHEST RADIOGRAPH (2 VIEW FRONTAL & LATERAL) CLINICAL HISTORY: COVID-19 virus infection Bacterial pneumonia MQ: XC2_6 EXAM DATE/TIME: 06/27/2024 12:04 PM COMPARISON: No relevant prior studies available. RESULT: Lines, tubes, and devices: None. Lungs and pleura: No consolidation. No lung mass. No pleural effusion. No pneumothorax. Cardiomediastinal silhouette: Normal cardiomediastinal silhouette. Bones and soft tissues: Degenerative disease of the thoracic spine. IMPRESSION IMPRESSION: No acute radiographic abnormality. Motel Maid: PSCB Transcribe Date/Time: Jun 27 2024 12:08P Dictated by : MY HORNE MD This examination was interpreted and the report reviewed and electronically signed by: MY HORNE MD on Jun 27 2024 12:09PM [facility] XR Chest PA and LateralOrder ed By: Cc Provider on 06-27-2024 [facility] XR ELBOW 3V AP/LAT/OTHER RTo n 06-27-2024 XR ELBOW 3V AP/LAT/OTHER RT * * *Final R eport* * * DATE OF EXAM: Jun 27 2024 12:04PM WOX 5325 - XR ELBOW 3V AP/LAT/OTHER RT / PROCEDURE REASON: Elbow pain, right * * * * Physician Interpretation * * * * EXAMINATION: XR ELBOW 3V AP/LAT/OTHER RT CLINICAL HISTORY: Right elbow pain. Recent history of fall Technique: XR ELBOW 3V AP/LAT/OTHER RT -- RIGHT with 3 views on 3 images Comparison: None RESULT: Nondisplaced radial head fracture. No dislocation. Joint spaces are maintained. Right elbow joint effusion. IMPRESSION: Nondisplaced radial head fracture Motel Maid: PSCB Transcribe Date/Time: Jun 27 2024 12:06P Dictated by : MY HORNE MD This examination was interpreted and the report reviewed and electronically signed by: MY HORNE MD on Jun 27 2024 12:08PM EST [id number] Normal [facility] XR Elbow - right AP and Late ral and obliqueon 06-27-2024 IMPRESSION: Nondisplaced radial head fracture Motel Maid: [facility]ITAL[facility] Transcribe Date/Time: Jun 27 2024 12:06P Dictated by : MY HORNE MD This examination was interpreted and the report reviewed and electronically signed by: MY HORNE MD on Jun 27 2024 12:08PM EST DIVISION OF RADIOLOGY * * *Final Report* * * DATE OF EXAM: Jun 27 2024 12:04PM WOX 5325 - XR ELBOW 3V AP/LAT/OTHER RT / PROCEDURE REASON: Elbow pain, right * * * * Physician Interpretation * * * * EXAMINATION: XR ELBOW 3V AP/LAT/OTHER RT CLINICAL HISTORY: Right elbow pain. Recent history of fall Technique: XR ELBOW 3V AP/LAT/OTHER RT -- RIGHT with 3 views on 3 images Comparison: None RESULT: Nondisplaced radial head fracture. No dislocation. Joint spaces are maintained. Right elbow joint effusion. DIVISION OF RADIOLOGY Provider, [facility] - 06/27/2024 * * *Final Report* * * DATE OF EXAM: Jun 27 2024 12:04PM WOX 5325 - XR ELBOW 3V AP/LAT/OTHER RT / PROCEDURE REASON: Elbow pain, right * * * * Physician Interpretation * * * * EXAMINATION: XR ELBOW 3V AP/LAT/OTHER RT CLINICAL HISTORY: Right elbow pain. Recent history of fall Technique: XR ELBOW 3V AP/LAT/OTHER RT -- RIGHT with 3 views on 3 images Comparison: None RESULT: Nondisplaced radial head fracture. No dislocation. Joint spaces are maintained. Right elbow joint effusion. IMPRESSION IMPRESSION: Nondisplaced radial head fracture Motel Maid: PSCB Transcribe Date/Time: Jun 27 2024 12:06P Dictated by : MY HORNE MD This examination was interpreted and the report reviewed and electronically signed by: MY HORNE MD on Jun 27 2024 12:08PM [facility] JIL DÍAZ ([id number]) 1940 F Date Time Provider Department 06/19/24 [facility] [employer] During your visit today, we recorded the following information about you: Meme Gant LPN 06/19/2024 9:48 AM Signed Son Ike and his Geno called regarding pt. They called in and got a hospital FU/ER FU scheduled for 06-22-24. PT was to [facility] 06-13-24 and admitted. Pt was having back and leg pain and MRI done and pt was also dx with COVID. Pt released from [facility] on 06-18-24 and then had a fall and they had to take her back to [facility] 06-18-24. Pt had a CT done and nothing was broken. Son concerned pt can not be now left alone. PT has gone from being independent to not being able to take care of herself. Son reports started noticing pt having some problems around [place]. Pt was seen by a Neurologist and told could not drive and they would see her back in 6 months. As of last week pt has been falling and not able to take care of herself. Both Ike and his Geno work and they are not sure what to do here. Please review and advise if there is anything they can do until apt on . Pt has been scheduled for a Hospital/ER FU on 06-22-24 with provider/team. Meme Gant, Tony Britton MD 06/19/2024 10:19 AM Signed Agree with OV this week. Please obtain hospital records. I would also have them call neurology for earlier OV. If her symptoms are severe to the point she cannot be alone and no one else can help her at home, there is always the option to have her admitted through the ER for 3 day stay with placement to snf. Lillie Hu LPN 06/19/2024 12:40 PM Signed Telephone call to son to give providers message below. Message left to call office back. Records obtained. Placed on providers desk for review. BRIA Paredes Laurie Lynn, LPN 06/20/2024 8:30 AM Signed Left a message for pt to call the office and ask to speak to a nurse. BRIA Leonard Sherrie, RN 06/20/2024 3:37 PM Signed Pt's son Ike returned call and given message below. Allergies As of Date: 06/19/2024 Noted Allergy Reaction OXYCODONE 03/11/2017 9 - Itching Date Reviewed: 05/16/2024 Reviewed by: Brielle Carpio MA - Fully Assessed Reason for Visit: Future Appointment [256] Prescriptions as of 06/20/2024 - atorvastatin (LIPITOR) 20 mg tablet Take 1 tablet by mouth once daily. - famotidine (PEPCID) 40 mg tablet Take 1 tablet by mouth two times a day. - apixaban (ELIQUIS) 5 mg tab(s) Take 5 mg by mouth two times a day. - potassium chloride 20 mEq TbER Take 20 mEq by mouth once daily. - furosemide (LASIX) 40 mg tablet Take 40 mg by mouth once daily. - dilTIAZem CD (CARDIZEM CD, CARTIA XT) 120 mg 24 hr capsule Take 1 capsule by mouth once daily. - losartan (COZAAR) 50 mg tablet Take 1 tablet by mouth once daily. - dorzolamide-timolol (COSOPT) 22.3-6.8 mg/mL ophthalmic solution Use 1 Drop in both eyes twice daily. - brimonidine (ALPHAGAN) 0.2 % ophthalmic solution - gabapentin (NEURONTIN) 300 mg capsule Take 1 tablet morning and bedtime May take one tablet in afternoon as needed for pain Per Dr. Martinez - lidocaine (LIDODERM) 5 % Apply 1 Patch as directed every 12 hours. - latanoprost (XALATAN) 0.005 % ophthalmic solution Use 1 Drop in both eyes once daily. - vit C,N-Ic-rdqhx-lutein-z eaxan (PRESERVISION AREDS-2) 250-90-40-1 mg Take 1 tablet by mouth twice daily at 6AM and 9PM. - BIOTIN ORAL Take 5,000 mg by mouth once daily. - Cholecalciferol, Vitamin D3, 25 mcg (1,000 unit) cap Take 1,000 Units by mouth once daily. - CYANOCOBALAMIN, VITAMIN B-12, (VITAMIN B-12 ORAL) Take 1,000 mg by mouth once daily. Problem List As Of Date 06/19/2024 Noted Resolved Chronic urticaria [L50.8] 05/13/2016 Hypertension [I10] Insomnia [G47.00] Post herpetic neuralgia [B02.29] Heart murmur [R01.1] GERD (gastroesophageal reflux disease) [K21.9] Hyperlipidemia [E78.5] Melanoma (HCC) [C43.9] 09/07/2022 VILLEGAS (dyspnea on exertion) [R06.09] 11/20/2017 Bilateral carotid artery disease (HCC) [I77.9] 11/20/2017 Mitral regurgitation [I34.0] Fall [W19.XXXA] 12/19/2018 Aortic stenosis [I35.0] OAB (overactive bladder) [N32.81] 04/09/2021 Mixed urge and stress incontinence [N39.46] 04/09/2021 Pulmonary arterial hypertension (HCC) [I27.21] 09/07/2022 Chronic kidney disease, stage 3a (HCC) [N18.31] 09/13/2023 Atrial fibrillation (HCC) [I48.91] 04/21/2023 Glaucoma [H40.9] 09/15/2023 Gait disturbance [R26.9] 05/04/2024 Encounter Status:Closed by LYNETTE AGUILLON on 06/20/24 Normal [facility] Brain/Head without Contrasto n 06-18-2024 Brain/Head without Contrast [facility] Imaging Services [address] [place] [address] Brain/Head without Contrast MR#: [id number] Acct: [id number] Name: JIL DÍAZ Rep #: [id number] : 1940 F 84 From: Antonella Redmond MD PCP: Dr. jBorn Soares MD Status: REG ER Study: Brain/Head without Contrast Date of Exam: 06/03 10/25 Exam# [id number] Ordering Dr: Elmer Suresh DO EXAM: BRAIN/HEAD WITHOUT CONTRAST CLINICAL HISTORY: Injury/pain COMPARISON: 06/15/2024 TECHNIQUE: Noncontrast images of the head with multiplanar reconstructions. Dose reduction techniques were used including intermediate exposure control (AEC),iterative reconstruction technique, and/or mA and/or KV dose adjustments based on patient's size. FINDINGS: No acute intracranial hemorrhage. No loss of hammer-white differentiation.There is a chronic lacunar infarction in the right basal ganglia measuring 7.7 mm.The ventricles and sulci are normal in appearance. The osseous structures are unremarkable. A right posterior scalp contusion is present. The paranasal sinuses and mastoid air cells are clear. CT/Brain/Head without Contrast IMPRESSION: 1. No acute intracranial abnormality. 2. Right posterior scalp contusion. Reading Location: [facility] CC: Dr. Bjorn Soares MD; Dr. Elmer Suresh DO Motel Maid: Signed Normal [facility] Emergency Department Summary on 06-18-2024 Emergency Department Summary [facility] Medical Records Department [address] [place] [address] Emergency Department Summary 06/18/24 MR#: [id number] Acct: [id number] Name: JIL DÍAZ Rep #: [id number] : 1940 84 From: Elmer Suresh DO PCP: Dr. Bjorn Soares MD Status:DEP ER Location: ED HPI HPI - Fall History of Present Illness Chief Complaint: Fall Informant: patient Occured/Mechanism Occurred: Today Mechanism/Context: Yes same level fall Pain/Injury Pain Location: head and upper extremity (Right forearm) Quality of Pain: Burning Worsened by: Nothing Relieved by: Nothing Associated Symptoms Associated Symptoms: Negative for Parasthesias, Weakness, Loss of function, Inability to ambulate, Loss of consciousness or Amnesia Narrative Narrative: Patient presents after a fall that occurred today. Patient states she fell backwards and hit the back of her head. Patient also states she hit her right forearm and has some skin tears to her right forearm. Patient states her pain is worse on her forearm. Patient states that it is burning. Patient states nothing makes it better and nothing makes it worse. Patient states her last tetanus was 2 or 3 years ago. Patient is on Eliquis for atrial fibrillation. Tetanus Immunization: <5 years [facility] Medical History Atrial fibrillation Dyspnea on exertion Wears glasses Cancer Ambulates with cane Bladder disease History of renal disease High cholesterol Easy bruising Migraine headache Injury of head and neck Former smoker Leg cramps History of edema History of stress test History of echocardiogram Cardiology follow-up encounter Shortness of breath on exertion LLQ abdominal pain CKD (chronic kidney disease) stage 3, GFR 30-59 ml/min Heart murmur Concussion Chronic urticaria Basal cell carcinoma Aortic stenosis Nonrheumatic mitral (valve) insufficiency Nonrheumatic aortic (valve) insufficiency Secondary pulmonary arterial hypertension Hyperlipidemia Seasonal allergies Anemia Glaucoma GERD (gastroesophageal reflux disease) Essential (primary) hypertension Premature atrial contractions History of shingles History of basal cell cancer History of rectocele History of melanoma Home Medications ???Medication ???Instructions ???Recorded ???Last Taken ???Type famotidine 40 mg tablet 40 mg PO BID 05/28/17 06/14/24 His tory atorvastatin 10 mg tablet 10 mg PO QHS cholesterol 10/05/19 06/14/24 History dorzolamide 22.3 mg-timolol 6.8 1 drp EACH EYE BID eye heal Unknown History mg/mL eye drops latanoprost 0.005 % eye drops 1 drp EACH EYE DAILY eye health Unknown History brimonidine 0.2 % eye drops 2 drp EACH EYE BID 11/10/22 History cholecalciferol (vitamin D3) 25 2,000 unit PO DAILY supplement 03/25 Unknown History mcg (1,000 unit) capsule cyanocobalamin (vitamin B-12) 2,000 mcg PO DAILY supplement 10/31 05/25 Unknown History 1,000 mcg tablet melatonin 5 mg tablet 5 mg PO HS PRN sleep 11/10/22 Unkn own History Handicap placard #1 ea 04/12/23 Unknown Rx vitamins A,C,Q-hwxr-tlultg 4,296 1 cap PO BID eye health 04/12/23 U nknown History mcg-226 mg-90 mg capsule potassium chloride 20 mEq 20 meq PO BID #90 tabs 06/01/23 Rx tablet,extended release diltiazem HCl 120 mg 120 mg PO BID heart #90 caps 06/2306/14/24 Rx capsule,extended release 24 hr losartan 25 mg tablet 25 mg PO DAILY #90 tabs 06/23/23 0 06/14/24 Rx furosemide 40 mg tablet (Lasix) 40 mg PO DAILY #90 tabs 04/10/24 0 06/14/24 Rx apixaban 5 mg tablet (Eliquis) 5 mg PO BID #60 tabs 05/05/2406/03 Rx cetirizine 10 mg tablet 10 mg PO Q12H ask pcp 06/15/24 Unk nown History doxepin 25 mg capsule 25 mg PO QHS itch 06/15/24 Unknown History lidocaine 5 % topical patch 1 patch topical Q24H rt rib pain 0 06/15/24 Unknown History acetaminophen 500 mg tablet 1,000 mg (2 x 500 mg) PO Q8 PRN Unknown Rx Pain #0 tabs amoxicillin 875 mg-potassium 1 tab PO Q12H #6 tabs 06/18/24 Unk nown Rx clavulanate 125 mg tablet dexamethasone 4 mg tablet 6 mg (1.5 x 4 mg) PO DAILY #6 tabs 06/18/24 Unknown Rx guaifenesin 1,200 mg tablet, 1,200 mg PO BID #10 tabs 06/18/24 Unknown Rx extended release 12 hr (Mucus Relief ER) tramadol 50 mg tablet 50 mg PO Q6H PRN PRN pain #10 tabs 06/18/24 Unknown Rx Allergy/AdvReac Type Severity Reaction Status Date / Time oxycodone (From Percocet) AdvReac Upset Verified 06/15/24 10:35 Stomach Family History Mother Anemia Hypertension Brother Hypertension Grandfather Cancer Surgical History Hx of colo (more content not included)... Normal [facility] Forearm 2 Viewson 06-18-2024 Forearm 2 Views [facility] Imaging Services [address] [place], [place] [address] Forearm 2 Views MR#: [id number] Acct: [id number] Name: JIL DÍAZ Rep #: [id number] : 1940 F 84 From: Antonella Redmond MD PCP: Dr. Bjorn Soares MD Status: REG ER Study: Forearm 2 Views Date of Exam: 06/18/24 Exam# [id number] Ordering Dr: Elmer Suresh DO PROCEDURE: FOREARM 2 VIEWS REASON FOR EXAM: Injury/pain TECHNIQUE: 2 view(s) of the right forearm COMPARISON: None. FINDINGS: No acute fracture or dislocation.An elbow joint effusion is present. No soft tissue abnormality. RAD/Forearm 2 Views IMPRESSION: 1. No acute fracture identified. 2. Elbow joint effusion. Reading Location: [facility] CC: Dr. Bjorn Soares MD; Dr. Elmer Suresh DO Motel Maid: Signed Normal [facility] Abdomen Single View (Portabl e)on 06-17-2024 Abdomen Single View (Portable) [facility] Imaging Services [address] [place], [place] [address] Abdomen Single View (Portable) MR#: [id number] Acct: [id number] Name: JIL DÍAZ Rep #: [id number] : 1940 F 84 From: Antonella Redmond MD PCP: Dr. Bjorn Soares MD Status: ADM IN Study: Abdomen Single View (Portable) Date of Exam: 0 06/17/24 Exam# [id number] Ordering Dr: Elmer Serrano DO PROCEDURE: ABDOMEN SINGLE VIEW (PORTABLE) REASON FOR EXAM: Abdominal pain TECHNIQUE: Two frontal views abdomen/pelvis. COMPARISON: None FINDINGS: Bowel gas pattern is normal. No evidence of bowel obstruction. Atherosclerotic calcifications are present in the abdominal aorta. There are surgical clips in the right upper quadrant of the abdomen. Multilevel degenerative changes are present in the visualized spine with a levoscoliosis present. RAD/Abdomen Single View (Portable) IMPRESSION: No acute abnormality. Reading [facility] CC: Dr. Bjorn Soares MD; Dr. Elmer Serrano DO Motel Maid: Signed Normal [facility] Absolute lymphocyte countOrd ered By: Elmer Serrano on 06-17-2024 Lymphocytes Auto (Unsp spec) [#/Vol] 0.66 10*3/uL Low 0.83-4.51 [facility] Absolute neutrophil countOrd ered By: Elmer Serrano on 06-17-2024 Neutrophils (Bld) [#/Vol] 9.7 10*3/uL High 2.0-7.7 [facility] Automated lymphocyte count a s percentage of total leukocytesOrdered By: Elmer Serrano on 06-17-2024 Lymphocytes/100 WBC Auto (Unsp spec) 6.0 % Low 19-41 [facility] Basic Metabolic Profile (BMP )on 06-17-2024 BUN/CRE 26.9 RATIO High 10-20 [facility] Comment on above: Performed By: #### L 100.0100, L500.2500 ####[facility] [address] [place], [address] CA,Total 8.3 mg/dL Low 8.5-10.1 [facility] Comment on above: Performed By: #### L 100.0100, L500.2500 ####[facility] [address] [place], [address] Chloride [Moles/Vol] 108 mmol/L High 98-107 [facility] Comment on above: Performed By: #### L 100.0100, L500.2500 ####[facility] [address] [place], [address] CO2 [Moles/Vol] 22.0 mmol/L Normal 21.0-32.0 [facility] Comment on above: Performed By: #### L 100.0100, L500.2500 ####[facility] [address] [place], [address] Creatinine [Mass/Vol] 0.97 mg/dL Normal 0.55-1.02 [facility] Comment on above: Result Comment: The validity of the calculated GFR GFRAA in patients over 70 years has not been determined. Clinical correlation is essential. Performed By: #### L 100.0100, L500.2500 ####[facility] [address] [place], [address] ECRCL 40.02 ml/min Normal [facility] Comment on above: Performed By: #### L 100.0100, L500.2500 ####[facility] [address] [place], [address] EST GFR - AA 70 mL/min Normal >60 [facility] Comment on above: Result Comment: Afri can [place] GFR Calc Performed By: #### L 100.0100, L500.2500 ####[facility] [address], [address] GAP 7 Normal 5-15 [facility] Comment on above: Performed By: #### L 100.0100, L500.2500 ####[facility] [address] [place], [address] GFR/1.73 sq M.predicted among non-blacks MDRD (S/P/Bld) [Vol rate/Area] 58 mL/min/{1.73_m2} Low >60 [facility] Comment on above: Result Comment: Non- GFR Calc Performed By: #### L 100.0100, L500.2500 ####[facility] [address] [place], [address] Glucose [Mass/Vol] 133 mg/dL High 74-106 [facility] Comment on above: Result Comment: Fast ing Glucose result greater than or equal to 126 mg/dL suggests DIABETES MELLITUS per A.D.A. criteria. Performed By: #### L 100.0100, L500.2500 ####[facility] [address] [place], [address] Potassium [Moles/Vol] 3.8 mmol/L Normal 3.5-5.1 [facility] Comment on above: Performed By: #### L 100.0100, L500.2500 ####[facility] [address] [place], [address] Sodium [Moles/Vol] 138 mmol/L Normal 136-145 [facility] Comment on above: Performed By: #### L 100.0100, L500.2500 ####[facility] [address] [place], [address] Urea nitrogen [Mass/Vol] 26 mg/dL High 7-18 [facility] Comment on above: Performed By: #### L 100.0100, L500.2500 ####[facility] [address] [place], [address] Basophil percentageOrdered B y: Elmer Serrano on 06-17-2024 Basophils/100 WBC (Bld) 0.2 % 0-1 [facility] Blood urea nitrogen (BUN)/cr eatinine ratioOrdered By: Elmer Serrano on 06-17-2024 Urea nitrogen/Creatinine [Mass ratio] 26.9 mg/mg High 10-20 [facility] CBC W/Diff, Automatedon - Absolute Lymph 0.66 X10 3/uL Low 0.83-4.51 [facility] Comment on above: Performed By: #### L 100.0100, L500.2500 ####[facility] [address] [place], [address] Absolute Neut 9.7 X10 3/uL High 2.0-7.7 [facility] Comment on above: Performed By: #### L 100.0100, L500.2500 ####[facility] [address] [place], [address] Basophils/100 WBC (Bld) 0.2 % Normal 0-1 [facility] Comment on above: Performed By: #### L 100.0100, L500.2500 ####[facility] [address] [place], [address] Eosinophils/100 WBC (Bld) 0.0 % Normal 0-5 [facility] Comment on above: Performed By: #### L 100.0100, L500.2500 ####[facility] [address] [place], [address] Erythrocyte distribution width (RBC) [Ratio] 15.1 % High 11.6-14.6 [facility] Comment on above: Performed By: #### L 100.0100, L500.2500 ####[facility] [address] [place], [address] Hematocrit (Bld) [Volume fraction] 36.8 % Low 37-47 [facility] [facility] Comment on above: Performed By: #### L 100.0100, L500.2500 ####[facility] [address] [place], [address] Hemoglobin (Bld) [Mass/Vol] 11.9 g/dL Low 12.0-15. 0 [facility] Comment on above: Performed By: #### L 100.0100, L500.2500 ####[facility] [address] [place], [address] IG% 0.500 Normal 0.0-0.9 [facility] Comment on above: Result Comment: IG% - Immature Granulocytes (promyelocytes, myelocytes and metamyelocytes) > 1% indicates that a LEFT SHIFT is Present. Performed By: #### L 100.0100, L500.2500 ####[facility] [address] [place], [address] Lymphocytes/100 WBC (Bld) 6.0 % Low 19-41 [facility] Comment on above: Performed By: #### L 100.0100, L500.2500 ####[facility] [address] [place], [address] MCH (RBC) [Entitic mass] 29.8 pg Normal 27.0-32.0 [facility] Comment on above: Performed By: #### L 100.0100, L500.2500 ####[facility] [address] [place], [address] MCHC (RBC) [Mass/Vol] 32.3 g/dL Normal 32-36 [facility] Comment on above: Performed By: #### L 100.0100, L500.2500 ####[facility] [address] [place], [address] MCV (RBC) [Entitic vol] 92.0 fL Normal 81-99 [facility] Comment on above: Performed By: #### L 100.0100, L500.2500 ####[facility] [address] [place], [address] Monocytes/100 WBC (Bld) 5.0 % Normal 0-10 [facility] Comment on above: Performed By: #### L 100.0100, L500.2500 ####[facility] [address] [place], [address] Neutrophils/100 WBC (Bld) 88.3 % High 47-70 [facility] Comment on above: Performed By: #### L 100.0100, L500.2500 ####[facility] [address] [place], [address] Nucleated RBC (Bld) [#/Vol] 0 10*3/uL Normal 0-5 [facility] Comment on above: Performed By: #### L 100.0100, L500.2500 ####[facility] [address] [place], [address] Platelet mean volume (Bld) [Entitic vol] 9.9 fL Normal 6.2-12.0 [facility] Comment on above: Performed By: #### L 100.0100, L500.2500 ####[facility] [address] [place], [address] Platelets (Bld) [#/Vol] 196 10*3/uL Normal 150-450 [facility] Comment on above: Performed By: #### L 100.0100, L500.2500 ####[facility] [address] [place], [address] RBC (Bld) [#/Vol] 4.00 10*6/uL Low 4.2-5.4 [facility] Comment on above: Performed By: #### L 100.0100, L500.2500 ####[facility] [address] [place], [address] RDW SD 51.2 fl High 35.1-43.9 [facility] Comment on above: Performed By: #### L 100.0100, L500.2500 ####[facility] [address] [place], [place], [address] WBC (Bld) [#/Vol] 11.0 10*3/uL Normal 4.4-11.0 [facility] Comment on above: Performed By: #### L 100.0100, L500.2500 ####[facility] [address] [place], [address] Carbon dioxide measurementOr dered By: Elmer Serrano on 06-17-2024 CO2 [Moles/Vol] 22.0 mmol/L 21.0-32.0 [facility] Chloride measurementOrdered By: Elmer Serrano on 06-17-2024 Chloride [Moles/Vol] 108 mmol/L High 98-107 [facility] Eosinophil percentageOrdered By: Elmer Serrano on 06-17-2024 Eosinophils/100 WBC (Bld) 0.0 % 0-5 [facility] Erythrocyte distribution wid th ratioOrdered By: Elmer Serrano on 06-17-2024 Erythrocyte distribution width (RBC) [Ratio] 15.1 % High 11.6-14.6 [facility] Erythrocyte distribution wid th standard deviationOrdered By: Elmer Serrano on 06-17-2024 Erythrocyte distribution width (RBC) [Entitic vol] 51.2 fL High 35.1-43.9 [facility] Erythrocyte distribution width (RBC) [Ratio] 51.2 fl High 35.1-43.9 [facility] Estimated glomerular filtrat ion rate (GFR) AmericanOrdered By: Elmer Serrano on 06-17-2024 Estimated GFR (MDRD) Amer 70 mL/min >60 [facility] Comment on above: GFR Calc Estimation of creatinine will aranceOrdered By: Elmer Serrano on 06-17-2024 Estimated Creatinine Clearance Calc 40.02 ml/min [facility] Glomerular filtration rate ( GFR) estimationOrdered By: Elmer Serrano on 06-17-2024 Estimated GFR (MDRD) Non-Af Amer 58 mL/min Low >60 [facility] Comment on above: Non- GFR Calc GFR/1.73 sq M.predicted among non-blacks MDRD (S/P/Bld) [Vol rate/Area] 58 mL/min/{1.73_m2} Low >60 [facility] Comment on above: Non- GFR Calc Glucose measurementOrdered B y: Elmer Serrano on 06-17-2024 Glucose [Mass/Vol] 133 mg/dL High 74-106 [facility] Comment on above: Fasting Glucose resu lt greater than or equal to 126 mg/dL suggests DIABETES MELLITUS per A.D.A. criteria. Hematocrit Auto (Bld) [Volum e fraction]Ordered By: Elmer Serrano on 06-17-2024 Hematocrit (Bld) [Volume fraction] 36.8 % Low 37-47 [facility] Hemoglobin measurementOrdere d By: Elmer Serrano on 06-17-2024 Hemoglobin (Bld) [Mass/Vol] 11.9 g/dL Low 12.0-15. 0 [facility] Immature granulocytes/100 WB C Auto (Bld)Ordered By: Elmer Serrano on 06-17-2024 Immature granulocytes/100 WBC (Bld) 0.500 % 0.0-0.9 [facility] Comment on above: IG% - Immature Granu locytes (promyelocytes, myelocytes and metamyelocytes) > 1% indicates that a LEFT SHIFT is Present. Lymphocytes Auto (Unsp spec) [#/Vol]Ordered By: Elmer Serrano on 06-17-2024 Lymphocytes (Bld) [#/Vol] 0.66 10*3/uL Low 0.83-4.5 1 [facility] Lymphocytes/100 WBC Auto (Un sp spec)Ordered By: Elmer Serrano on 06-17-2024 Lymphocytes/100 WBC (Bld) 6.0 % Low 19-41 [facility] MCV (mean corpuscular volume ) determinationOrdered By: Elmer Serrano on 06-17-2024 MCV (RBC) [Entitic vol] 92.0 fL 81-99 [facility] Mean corpuscular hemoglobin (MCH) determinationOrdered By: Elmer Serrano on 06-17-2024 MCH (RBC) [Entitic mass] 29.8 pg 27.0-32.0 [facility] Mean corpuscular hemoglobin concentration (MCHC) determinationOrdered By: Elmer Serrano on 06-17-2024 MCHC (RBC) [Mass/Vol] 32.3 g/dL 32-36 [facility] Mean platelet volume determi nationOrdered By: Elmer Serrano on 06-17-2024 Platelet mean volume (Bld) [Entitic vol] 9.9 fL 6.2-12.0 [facility] Monocyte percentageOrdered B y: Elmer Serrano on 06-17-2024 Monocytes/100 WBC (Bld) 5.0 % 0-10 [facility] Neutrophil percentageOrdered By: Elmer Serrano on 06-17-2024 Neutrophils/100 WBC (Bld) 88.3 % High 47-70 [facility] Nucleated red blood cell per centageOrdered By: Elmer Serrano on 06-17-2024 Nucleated RBC/100 WBC (Bld) [Ratio] 0 % 0-5 [facility] Platelet countOrdered By: Edison Serrano on 06-17-2024 Platelets (Bld) [#/Vol] 196 10*3/uL 150-450 [facility] Potassium measurementOrdered By: Elmer Serrano on 06-17-2024 Potassium [Moles/Vol] 3.8 mmol/L 3.5-5.1 [facility] RBC Auto (Bld) [#/Vol]Ordere d By: Elmer Serrano on 06-17-2024 RBC (Bld) [#/Vol] 4.00 10*6/uL Low 4.2-5.4 [facility] Serum anion gap measurementO rdered By: Elmer Serrano on 06-17-2024 Anion gap [Moles/Vol] 7 mmol/L -15 [facility] Serum or plasma calcium jackson urement (mass/volume)Ordered By: Elmer Serrano on 06-17-2024 Calcium [Mass/Vol] 8.3 mg/dL Low 8.5-10.1 [facility] Serum or plasma creatinine m easurement (mass/volume)Ordered By: Elmer Serrano on 06-17-2024 Creatinine [Mass/Vol] 0.97 mg/dL 0.55-1.02 [facility] Comment on above: The validity of the calculated GFR & GFRAA in patients over 70 years has not been determined. Clinical correlation is essential. Serum or plasma urea nitroge n measurement (mass/volume)Ordered By: Elmer Serrano on 06-17-2024 Urea nitrogen [Mass/Vol] 26 mg/dL High 7-18 [facility] Sodium levelOrdered By: Elmer Serrano on 06-17-2024 Sodium [Moles/Vol] 138 mmol/L 136-145 [facility] White blood cell (WBC) count Ordered By: Elmer Serrano on 06-17-2024 WBC (Bld) [#/Vol] 11.0 10*3/uL 4.4-11.0 [facility] Albumin to globulin ratioOrd ered By: Erica Anand on 06-16-2024 Albumin/Globulin [Mass ratio] 0.7 {ratio} Low 0.9-2.4 [facility] Bilirubin, totalOrdered By: Erica Anand on 06-16-2024 Bilirubin [Mass/Vol] 0.60 mg/dL 0.20-1.00 [facility] Comment on above: For patients on eltr ombopag therapy, use of Dimension [place] TBIL is not recommended. CBC W/Diff, Automatedon 06-03 Absolute Lymph 0.68 X10 3/uL Low 0.83-4.51 [facility] Comment on above: Performed By: #### L 501.9520, L501.5200, L501.2300, L500.4050, L100.0100 ####[facility] [address] [place], [address] Absolute Neut 10.2 X10 3/uL High 2.0-7.7 [facility] Comment on above: Performed By: #### L 501.9520, L501.5200, L501.2300, L500.4050, L100.0100 ####[facility] [address] [place], [address] Basophils/100 WBC (Bld) 0.3 % Normal 0-1 [facility] Comment on above: Performed By: #### L 501.9520, L501.5200, L501.2300, L500.4050, L100.0100 ####[facility] [address] [place], [address] Eosinophils/100 WBC (Bld) 1.5 % Normal 0-5 [facility] Comment on above: Performed By: #### L 501.9520, L501.5200, L501.2300, L500.4050, L100.0100 ####[facility] [address] [place], [address] Erythrocyte distribution width (RBC) [Ratio] 14.8 % High 11.6-14.6 [facility] Comment on above: Performed By: #### L 501.9520, L501.5200, L501.2300, L500.4050, L100.0100 ####[facility] [address] [place], [address] Hematocrit (Bld) [Volume fraction] 42.9 % Normal 37-47 [facility] Comment on above: Performed By: #### L 501.9520, L501.5200, L501.2300, L500.4050, L100.0100 ####[facility] [address] [place], [address] Hemoglobin (Bld) [Mass/Vol] 14.0 g/dL Normal 12.0-15. 0 [facility] Comment on above: Performed By: #### L 501.9520, L501.5200, L501.2300, L500.4050, L100.0100 ####[facility] [address] [place], [address] IG% 0.400 Normal 0.0-0.9 [facility] Comment on above: Result Comment: IG% - Immature Granulocytes (promyelocytes, myelocytes and metamyelocytes) > 1% indicates that a LEFT SHIFT is Present. Performed By: #### L 501.9520, L501.5200, L501.2300, L500.4050, L100.0100 ####[facility] [address] [place], [address] Lymphocytes/100 WBC (Bld) 5.9 % Low 19-41 [facility] Comment on above: Performed By: #### L 501.9520, L501.5200, L501.2300, L500.4050, L100.0100 ####[facility] [address] [place], [address] MCH (RBC) [Entitic mass] 29.8 pg Normal 27.0-32.0 [facility] Comment on above: Performed By: #### L 501.9520, L501.5200, L501.2300, L500.4050, L100.0100 ####[facility] [address] [place], [address] MCHC (RBC) [Mass/Vol] 32.6 g/dL Normal 32-36 [facility] Comment on above: Performed By: #### L 501.9520, L501.5200, L501.2300, L500.4050, L100.0100 ####[facility] [address] [place], [address] MCV (RBC) [Entitic vol] 91.3 fL Normal 81-99 [facility] Comment on above: Performed By: #### L 501.9520, L501.5200, L501.2300, L500.4050, L100.0100 ####[facility] [address] [place], [address] Monocytes/100 WBC (Bld) 4.1 % Normal 0-10 [facility] Comment on above: Performed By: #### L 501.9520, L501.5200, L501.2300, L500.4050, L100.0100 ####[facility] [address] [place], [address] Neutrophils/100 WBC (Bld) 87.8 % High 47-70 [facility] Comment on above: Performed By: #### L 501.9520, L501.5200, L501.2300, L500.4050, L100.0100 ####[facility] [address] [place], [address] Nucleated RBC (Bld) [#/Vol] 0 10*3/uL Normal 0-5 [facility] Comment on above: Performed By: #### L 501.9520, L501.5200, L501.2300, L500.4050, L100.0100 ####[facility] [address] [place], [address] Platelet mean volume (Bld) [Entitic vol] 10.1 fL Normal 6.2-12.0 [facility] Comment on above: Performed By: #### L 501.9520, L501.5200, L501.2300, L500.4050, L100.0100 ####[facility] [address] [place], [address] Platelets (Bld) [#/Vol] 211 10*3/uL Normal 150-450 [facility] Comment on above: Performed By: #### L 501.9520, L501.5200, L501.2300, L500.4050, L100.0100 ####[facility] [address] [place], [address] RBC (Bld) [#/Vol] 4.70 10*6/uL Normal 4.2-5.4 [facility] Comment on above: Performed By: #### L 501.9520, L501.5200, L501.2300, L500.4050, L100.0100 ####[facility] [address] [place], [address] RDW SD 49.7 fl High 35.1-43.9 [facility] Comment on above: Performed By: #### L 501.9520, L501.5200, L501.2300, L500.4050, L100.0100 ####[facility] [address] [place], [address] WBC (Bld) [#/Vol] 11.6 10*3/uL High 4.4-11.0 [facility] Comment on above: Performed By: #### L 501.9520, L501.5200, L501.2300, L500.4050, L100.0100 ####[facility] [address] [place], [address] Comprehensive Metabolic Prof ilon 06-16-2024 Albumin [Mass/Vol] 2.9 g/dL Low 3.2-5.0 [facility] Comment on above: Performed By: #### L 501.9520, L501.5200, L501.2300, L500.4050, L100.0100 ####[facility] [address] [place], [address] Albumin/Globulin [Mass ratio] 0.7 {ratio} Low 0.9-2.4 [facility] Comment on above: Performed By: #### L 501.9520, L501.5200, L501.2300, L500.4050, L100.0100 ####[facility] [address] [place], [address] ALK P 116 U/L Normal 45-117 [facility] Comment on above: Performed By: #### L 501.9520, L501.5200, L501.2300, L500.4050, L100.0100 ####[facility] [address] [place], [address] ALT [Catalytic activity/Vol] 26 U/L Normal 13-56 [facility] Comment on above: Performed By: #### L 501.9520, L501.5200, L501.2300, L500.4050, L100.0100 ####[facility] [address] [place], [address] AST [Catalytic activity/Vol] 20 U/L Normal 15-37 [facility] Comment on above: Performed By: #### L 501.9520, L501.5200, L501.2300, L500.4050, L100.0100 ####[facility] [address] [place], [address] Bilirubin [Mass/Vol] 0.60 mg/dL Normal 0.20-1.00 [facility] Comment on above: Result Comment: For patients on eltrombopag therapy, use of Dimension [place] TBIL is not recommended. Performed By: #### L 501.9520, L501.5200, L501.2300, L500.4050, L100.0100 ####[facility] [address] [place], [address] BUN/CRE 18.6 RATIO Normal 10-20 [facility] Comment on above: Performed By: #### L 501.9520, L501.5200, L501.2300, L500.4050, L100.0100 ####[facility] [address] [place], [address] CA,Total 9.0 mg/dL Normal 8.5-10.1 [facility] Comment on above: Performed By: #### L 501.9520, L501.5200, L501.2300, L500.4050, L100.0100 ####[facility] [address] [place], [address] Chloride [Moles/Vol] 109 mmol/L High 98-107 [facility] Comment on above: Performed By: #### L 501.9520, L501.5200, L501.2300, L500.4050, L100.0100 ####[facility] [address] [place], [address] CO2 [Moles/Vol] 23.0 mmol/L Normal 21.0-32.0 [facility] Comment on above: Performed By: #### L 501.9520, L501.5200, L501.2300, L500.4050, L100.0100 ####[facility] [address] [place], [address] Creatinine [Mass/Vol] 0.86 mg/dL Normal 0.55-1.02 [facility] Comment on above: Result Comment: The validity of the calculated GFR GFRAA in patients over 70 years has not been determined. Clinical correlation is essential. Performed By: #### L 501.9520, L501.5200, L501.2300, L500.4050, L100.0100 ####[facility] [address] [place], [address] ECRCL 41.30 ml/min Normal [facility] Comment on above: Performed By: #### L 501.9520, L501.5200, L501.2300, L500.4050, L100.0100 ####[facility] [address] [place], [address] EST GFR - AA 81 mL/min Normal >60 [facility] Comment on above: Result Comment: Afri can [place] GFR Calc Performed By: #### L 501.9520, L501.5200, L501.2300, L500.4050, L100.0100 ####[facility] [address] [place], [address] GAP 9 Normal 5-15 [facility] Comment on above: Performed By: #### L 501.9520, L501.5200, L501.2300, L500.4050, L100.0100 ####[facility] [address] [place], [address] GFR/1.73 sq M.predicted among non-blacks MDRD (S/P/Bld) [Vol rate/Area] 67 mL/min/{1.73_m2} Normal >60 [facility] Comment on above: Result Comment: Non- GFR Calc Performed By: #### L 501.9520, L501.5200, L501.2300, L500.4050, L100.0100 ####[facility] [address] [place], [address] Globulin (S) [Mass/Vol] 3.9 g/dL Normal 2.2-4.2 [facility] Comment on above: Performed By: #### L 501.9520, L501.5200, L501.2300, L500.4050, L100.0100 ####[facility] [address] [place], [address] Glucose [Mass/Vol] 156 mg/dL High 74-106 [facility] Comment on above: Result Comment: Fast ing Glucose result greater than or equal to 126 mg/dL suggests DIABETES MELLITUS per A.D.A. criteria. Performed By: #### L 501.9520, L501.5200, L501.2300, L500.4050, L100.0100 ####[facility] [address] [place], [address] Potassium [Moles/Vol] 3.4 mmol/L Low 3.5-5.1 [facility] Comment on above: Performed By: #### L 501.9520, L501.5200, L501.2300, L500.4050, L100.0100 ####[facility] [address] [place], [address] Sodium [Moles/Vol] 140 mmol/L Normal 136-145 [facility] Comment on above: Performed By: #### L 501.9520, L501.5200, L501.2300, L500.4050, L100.0100 ####[facility] [address] [place], [address] T PROT 6.8 g/dL Normal 6.4-8.2 [facility] Comment on above: Performed By: #### L 501.9520, L501.5200, L501.2300, L500.4050, L100.0100 ####[facility] [address] [place], [address] Urea nitrogen [Mass/Vol] 16 mg/dL Normal 7-18 [facility] Comment on above: Performed By: #### L 501.9520, L501.5200, L501.2300, L500.4050, L100.0100 ####[facility] [address] [place], [address] Laboratory - Chemistry and C hemistry - challengeOrdered By: Erica Anand on 06-16-2024 AST [Catalytic activity/Vol] 20 U/L 15-37 [facility] Magnesiumon 06-16-2024 Magnesium [Mass/Vol] 2.0 mg/dL Normal 1.6-2.6 [facility] Comment on above: Performed By: #### L 501.9520, L501.5200, L501.2300, L500.4050, L100.0100 ####[facility] [address] [place], [address] Magnesium measurementOrdered By: Erica Anand on 06-16-2024 Magnesium [Mass/Vol] 2.0 mg/dL 1.6-2.6 [facility] Phosphoruson 06-16-2024 Phosphate [Mass/Vol] 2.7 mg/dL Normal 2.5-4.9 [facility] Comment on above: Performed By: #### L 501.9520, L501.5200, L501.2300, L500.4050, L100.0100 ####[facility] [address] [place], [place], [address] Phosphorus measurementOrdere d By: Erica Anand on 06-16-2024 Phosphorus Level 2.7 mg/dL 2.5-4.9 [facility] Serum globulin measurementOr dered By: Erica Anand on 06-16-2024 Globulin (S) [Mass/Vol] 3.9 g/dL 2.2-4.2 [facility] Serum or plasma alanine ash otransferase (ALT) measurementOrdered By: Erica Anand on 06-16-2024 ALT [Catalytic activity/Vol] 26 U/L 13-56 [facility] Serum or plasma albumin jackson urement (mass/volume)Ordered By: Erica Anand on 06-16-2024 Albumin [Mass/Vol] 2.9 g/dL Low 3.2-5.0 [facility] Serum or plasma alkaline sushant sphatase measurementOrdered By: Erica Anand on 06-16-2024 ALP [Catalytic activity/Vol] 116 U/L 45-117 [facility] Serum or plasma thyroid stim ulating hormone (TSH) measurement (units/volume)Ordered By: Erica Anand on 06-16-2024 TSH Qn 1.840 uIU/mL 0.358-3.740 [facility] TSH QnOrdered By: Erica Henry on 06-16-2024 Thyroid Stimulating Hormone (TSH) 1.840 uIU/mL 0.358-3.740 [facility] Thyroid Stim Hormone (TSH)on 06-16-2024 TSH 1.840 uIU/mL Normal 0.358-3.740 [facility] Comment on above: Performed By: #### L 501.9520, L501.5200, L501.2300, L500.4050, L100.0100 ####[facility] [address] [place], [address] Total proteinOrdered By: Beverley Anand on 06-16-2024 Protein [Mass/Vol] 6.8 g/dL 6.4-8.2 [facility] 12 Lead EKGon 06-15-2024 12 Lead EKG [facility] [address] [place] [address] 12 Lead EKG 06/17/24 1208 MR#: [id number] Acct: [id number] Name: JIL DÍAZ Rep #: [id number] : [id number] 84 From: Sarah Suggs MD Attending Dr: Dr. Elmer Serrano DO Status: DIS IN Ordering Dr: Jake Montanez DO Date: 06/15/24 Location: [facility] Sex: F C Admitted: 06/15/24 Test Reason : CP Blood Pressure : */* mmHG Vent. Rate : 54 BPM Atrial Rate : * BPM P-R Int : * ms QRS Dur : 74 ms QT Int : 482 ms P-R-T Axes : * 10 -4 degrees QTcB Int : 457 ms Atrial fibrillation with slow ventricular response Septal infarct , age undetermined Abnormal ECG Confirmed by ES SHAH, PERLA ([id number]), book or script editor LIV TADEO ([id number]) on 06/19/2024 8:06:00 AM Referred By: Confirmed By: PERLA SUGGS MD 06/19/24 0806 Date Sarah Suggs MD CC: Dr. Bjorn Soares MD; Dr. Elmer Serrano DO; Dr. Jake Montanez DO Signed Normal [facility] Abdomen/Pelvis without Conto n 06-15-2024 Abdomen/Pelvis without Cont [facility] Imaging Services [address] [place], [place] [id number] Abdomen/Pelvis without Cont MR#: [id number] Acct: [id number] Name: JIL DÍAZ Rep #: [id number] : [id number] F 84 From: Janes matthews MD PCP: Dr. Bjorn Soares MD Status: REG ER Study: Abdomen/Pelvis without Cont Date of Exam: 06/03 07/25 Exam# [id number] Ordering Dr: Jake Montanez DO PROCEDURE: ABDOMEN/PELVIS WITHOUT CONT REASON FOR EXAM: Weakness and recent fall. Low back and leg pain. TECHNIQUE: Abdomen and pelvis CT without intravenous contrast. Coronal and sagittal reconstruction was obtained as well. COMPARISON: Comparison is made with prior study dated November 04, 2022. FINDINGS: Noncontrast technique limits evaluation of the abdominal and pelvic viscera. Lung bases: Small bilateral pleural effusions right slightly greater than left with increased markings at the lung bases suggestive of atelectasis and/or scarring. Coronary artery calcification. Liver: Unremarkable. Gallbladder: Surgically absent. Spleen: Unremarkable. Pancreas: Unremarkable. Adrenals: Unremarkable. Kidneys: 2.8 cm cyst in the mid lateral portion of the left kidney. Bladder: Unremarkable. Reproductive Organs: Prior hysterectomy. Adnexal regions are unremarkable. Bowel: Small hiatal hernia. Appendix: Normal. Lymph nodes: No suspicious lymph node enlargement. Vasculature: Mild diffuse atherosclerotic calcifications are noted. Peritoneum / Retroperitoneum: No ascites. No free air. Bones: Degenerative changes of the spine. CT/Abdomen/Pelvis without Cont IMPRESSION: Bibasilar atelectasis. Small bilateral pleural effusions. Stable left renal cyst. No acute abnormality is seen. One or more dose reduction techniques were used (e.g., Automated exposure control, adjustment of the mA and/or kV according to patient size, use of iterative reconstruction technique). Reading Location: [facility] CC: Dr. Bjorn Soares MD; Dr. Jake Montanez DO Motel Maid: Signed Normal [facility] BNP (brain natriuretic pepti de measurement)Ordered By: Erica Anand on 06-15-2024 Natriuretic peptide B (Bld) [Mass/Vol] 481.8 pg/mL High 0-100 [facility] BNP,B-Type NATRIURETIC PEPTI Vivien 06-15-2024 Natriuretic peptide B (Bld) [Mass/Vol] 481.8 pg/mL High 0-100 [facility] Comment on above: Performed By: #### L 100.0100, L500.2500, L501.4020, L501.3620 #### [facility] [address] [place], [address] Basic Metabolic Profile (BMP )on 06-15-2024 BUN/CRE 14.8 RATIO Normal 10-20 [facility] Comment on above: Order Comment: 'TROP ' Serial specimen #1, #2 or #3: 1 Performed By: #### L 100.0100, L500.2500, L501.4020, L501.3620 #### [facility] [address] [place], [address] CA,Total 9.5 mg/dL Normal 8.5-10.1 [facility] Comment on above: Order Comment: 'TROP ' Serial specimen #1, #2 or #3: 1 Performed By: #### L 100.0100, L500.2500, L501.4020, L501.3620 #### [facility] [address] [place], [address] Chloride [Moles/Vol] 105 mmol/L Normal 98-107 [facility] Comment on above: Order Comment: 'TROP ' Serial specimen #1, #2 or #3: 1 Performed By: #### L 100.0100, L500.2500, L501.4020, L501.3620 #### [facility] [address] [place], [address] CO2 [Moles/Vol] 23.0 mmol/L Normal 21.0-32.0 [facility] Comment on above: Order Comment: 'TROP ' Serial specimen #1, #2 or #3: 1 Performed By: #### L 100.0100, L500.2500, L501.4020, L501.3620 #### [facility] [address] [place], [address] Creatinine [Mass/Vol] 1.08 mg/dL High 0.55-1.02 [facility] Comment on above: Order Comment: 'TROP ' Serial specimen #1, #2 or #3: 1 Result Comment: The validity of the calculated GFR GFRAA in patients over 70 years has not been determined. Clinical correlation is essential. Performed By: #### L 100.0100, L500.2500, L501.4020, L501.3620 #### [facility] [address] [place], [address] EST GFR - AA 62 mL/min Normal >60 [facility] Comment on above: Order Comment: 'TROP ' Serial specimen #1, #2 or #3: 1 Result Comment: Afri can [place] African GFR Calc Performed By: #### L 100.0100, L500.2500, L501.4020, L501.3620 #### [facility] [address] [place], [address] GAP 7 Normal 5-15 [facility] Comment on above: Order Comment: 'TROP ' Serial specimen #1, #2 or #3: 1 Performed By: #### L 100.0100, L500.2500, L501.4020, L501.3620 #### [facility] [address] [place], [address] GFR/1.73 sq M.predicted among non-blacks MDRD (S/P/Bld) [Vol rate/Area] 51 mL/min/{1.73_m2} Low >60 [facility] Comment on above: Order Comment: 'TROP ' Serial specimen #1, #2 or #3: 1 Result Comment: Non- GFR Calc Performed By: #### L 100.0100, L500.2500, L501.4020, L501.3620 #### [facility] [address] [place], [address] Glucose [Mass/Vol] 163 mg/dL High 74-106 [facility] Comment on above: Order Comment: 'TROP ' Serial specimen #1, #2 or #3: 1 Result Comment: Fast ing Glucose result greater than or equal to 126 mg/dL suggests DIABETES MELLITUS per A.D.A. criteria. Performed By: #### L 100.0100, L500.2500, L501.4020, L501.3620 #### [facility] [address] [place], [address] Potassium [Moles/Vol] 3.6 mmol/L Normal 3.5-5.1 [facility] Comment on above: Order Comment: 'TROP ' Serial specimen #1, #2 or #3: 1 Performed By: #### L 100.0100, L500.2500, L501.4020, L501.3620 #### [facility] [address] [place], [address] Sodium [Moles/Vol] 135 mmol/L Low 136-145 [facility] Comment on above: Order Comment: 'TROP ' Serial specimen #1, #2 or #3: 1 Performed By: #### L 100.0100, L500.2500, L501.4020, L501.3620 #### [facility] [address] [place], [address] Urea nitrogen [Mass/Vol] 16 mg/dL Normal 7-18 [facility] Comment on above: Order Comment: 'TROP ' Serial specimen #1, #2 or #3: 1 Performed By: #### L 100.0100, L500.2500, L501.4020, L501.3620 #### [facility] [address] [place], [address] Bilirubin Test strip Ql (U)O rdered By: Jake Montanez on 06-15-2024 Bilirubin Ql (U) Negative Negative [facility] Brain/Head without Contrasto n 06-15-2024 Brain/Head without Contrast [facility] Imaging Services [address] [place] [address] Brain/Head without Contrast MR#: [id number] Acct: [id number] Name: JIL DÍAZ Rep #: [id number] : 1940 F 84 From: Janes matthews MD PCP: Dr. Bjorn Soares MD Status: REG ER Study: Brain/Head without Contrast Date of Exam: 06/03 07/25 Exam# [id number] Ordering Dr: Jake Montanez DO EXAM: BRAIN/HEAD WITHOUT CONTRAST CLINICAL HISTORY: Confusion following a fall. The patient is on blood thinners. COMPARISON: Comparison is made with prior examination dated April 05, 2024. TECHNIQUE: Multiple axial tomographic images were obtained without intravenous contrast administration. Coronal and sagittal reconstruction was obtained as well. FINDINGS: Mild degree of cerebral atrophy. Old lacune in the right basal ganglion. Stable faint calcifications in the basal ganglia bilaterally. This is a normal variant in a patient of this age. CT/Brain/Head without Contrast IMPRESSION: Stable examination. No acute abnormality is seen. Reading Location: [place] [address] CC: Dr. Bjorn Soares MD; Dr. Jake Montanez DO Motel Maid: Signed Normal [facility] CBC W/Diff, Automatedon 06-03 Absolute Lymph 1.23 X10 3/uL Normal 0.83-4.51 [facility] Comment on above: Performed By: #### L 100.0100, L500.2500, L501.4020, L501.3620 #### [facility] [address] [place], [address] Absolute Neut 8.7 X10 3/uL High 2.0-7.7 [facility] Comment on above: Performed By: #### L 100.0100, L500.2500, L501.4020, L501.3620 #### [facility] [address] [place], [address] Basophils/100 WBC (Bld) 1.2 % High 0-1 [facility] Comment on above: Performed By: #### L 100.0100, L500.2500, L501.4020, L501.3620 #### [facility] [address] [place], [address] Eosinophils/100 WBC (Bld) 0.1 % Normal 0-5 [facility] Comment on above: Performed By: #### L 100.0100, L500.2500, L501.4020, L501.3620 #### [facility] [address] [place], [address] Erythrocyte distribution width (RBC) [Ratio] 14.8 % High 11.6-14.6 [facility] Comment on above: Performed By: #### L 100.0100, L500.2500, L501.4020, L501.3620 #### [facility] [address] [place], [address] Hematocrit (Bld) [Volume fraction] 42.3 % Normal 37-47 [facility] Comment on above: Performed By: #### L 100.0100, L500.2500, L501.4020, L501.3620 #### [facility] [address] [place], [address] Hemoglobin (Bld) [Mass/Vol] 13.7 g/dL Normal 12.0-15. 0 [facility] Comment on above: Performed By: #### L 100.0100, L500.2500, L501.4020, L501.3620 #### [facility] [address] [place], [address] IG% 0.400 Normal 0.0-0.9 [facility] Comment on above: Result Comment: IG% - Immature Granulocytes (promyelocytes, myelocytes and metamyelocytes) > 1% indicates that a LEFT SHIFT is Present. Performed By: #### L 100.0100, L500.2500, L501.4020, L501.3620 #### [facility] [address] [place], [address] Lymphocytes/100 WBC (Bld) 11.3 % Low 19-41 [facility] Comment on above: Performed By: #### L 100.0100, L500.2500, L501.4020, L501.3620 #### [facility] [address] [place], [address] MCH (RBC) [Entitic mass] 29.9 pg Normal 27.0-32.0 [facility] Comment on above: Performed By: #### L 100.0100, L500.2500, L501.4020, L501.3620 #### [facility] [address] [place], [address] MCHC (RBC) [Mass/Vol] 32.4 g/dL Normal 32-36 [facility] Comment on above: Performed By: #### L 100.0100, L500.2500, L501.4020, L501.3620 #### [facility] [address] [place], [address] MCV (RBC) [Entitic vol] 92.4 fL Normal 81-99 [facility] Comment on above: Performed By: #### L 100.0100, L500.2500, L501.4020, L501.3620 #### [facility] [address] [place], [address] Monocytes/100 WBC (Bld) 7.6 % Normal 0-10 [facility] Comment on above: Performed By: #### L 100.0100, L500.2500, L501.4020, L501.3620 #### [facility] [address] [place], [address] Neutrophils/100 WBC (Bld) 79.4 % High 47-70 [facility] Comment on above: Performed By: #### L 100.0100, L500.2500, L501.4020, L501.3620 #### [facility] [address] [place], [address] Nucleated RBC (Bld) [#/Vol] 0 10*3/uL Normal 0-5 [facility] Comment on above: Performed By: #### L 100.0100, L500.2500, L501.4020, L501.3620 #### [facility] [address] [place], [address] Platelet mean volume (Bld) [Entitic vol] 9.7 fL Normal 6.2-12.0 [facility] Comment on above: Performed By: #### L 100.0100, L500.2500, L501.4020, L501.3620 #### [facility] [address] [place], [address] Platelets (Bld) [#/Vol] 259 10*3/uL Normal 150-450 [facility] Comment on above: Performed By: #### L 100.0100, L500.2500, L501.4020, L501.3620 #### [facility] [address] [place], [address] RBC (Bld) [#/Vol] 4.58 10*6/uL Normal 4.2-5.4 [facility] Comment on above: Performed By: #### L 100.0100, L500.2500, L501.4020, L501.3620 #### [facility] [address] [place], [address] RDW SD 50.0 fl High 35.1-43.9 [facility] Comment on above: Performed By: #### L 100.0100, L500.2500, L501.4020, L501.3620 #### [facility] [address] [place], [address] WBC (Bld) [#/Vol] 10.9 10*3/uL Normal 4.4-11.0 [facility] Comment on above: Performed By: #### L 100.0100, L500.2500, L501.4020, L501.3620 #### [facility] [address] [place], [address] CPK Total, Creatine Kinaseon 06-15-2024 CPK TOTAL 86 U/L Normal 26-192 [facility] Comment on above: Order Comment: 'TROP ' Serial specimen #1, #2 or #3: 1 Performed By: #### L 100.0100, L500.2500, L501.4020, L501.3620 #### [facility] [address] [place], [address] Chest 1 View (Portable)on Chest 1 View (Portable) [facility] Imaging Services [address] [place] [address] Chest 1 View (Portable) MR#: [id number] Acct: [id number] Name: JIL DÍAZ Rep #: [id number] : 1940 F 84 From: Alex Henry PCP: Dr. Bjorn Soares MD Status: [facility] ER Study: Chest 1 View (Portable) Date of Exam: 06/15/24 Exam# [id number] Ordering Dr: Jake Montanez DO PROCEDURE: CHEST 1 VIEW (PORTABLE) REASON FOR EXAM: Cough. TECHNIQUE: Frontal view of the chest. COMPARISON: Chest x-ray of 04/05/2020 RAD/Chest 1 View (Portable) IMPRESSION: Prominent airspace disease is newly seen in the right upper and lower lung zones, concerning for the presence of PNEUMONITIS. No clear evidence of pulmonary edema is seen. No pleural effusion or pneumothorax is noted. The cardiomediastinal silhouette is remarkable for a calcified aorta. No evidence of cardiomegaly. Also, right upper quadrant abdominal surgical clips are again present. Reading Location: [address] CC: Dr. Bjorn Soares MD; Dr. Jake Montanez DO Motel Maid: Signed Normal [facility] Echo Completeon 06-15-2024 Echo Complete [facility] [place] [address] Echo Complete 06/16/24 1041 MR#: [id number] Acct: [id number] Name: JIL DÍAZ Rep #: [id number] : 1940 84 From: Sarah Suggs MD Attending Dr: Dr. Elmer Serrano DO Status: ADM IN Ordering Dr: Erica Anand DO Date: 06/15/24 Location: [facility] Sex: F C Admitted: 06/15/24 Reason For Study Reason For Study: CHF Procedure This was a 2D Doppler, Color Flow transthoracic echocardiogram. Exam performed portable in patient room. The exam was abbreviated due to the COVID 19 protocol. Left Ventricle Normal LV size. The estimated ejection fraction is 70 %. Unable to assess diastolic dysfunction. No regional wall motion abnormalities noted. Right Ventricle Normal RV size. Normal systolic function. Atria There is moderate biatrial dilatation. No doppler evidence for ASD. Mitral Valve There is moderate mitral annular calcification. There is no mitral valve stenosis. Mild (1+) mitral valve insufficiency. Tricuspid Valve There is no tricuspid stenosis. Moderate (2+) tricuspid valve insufficiency. Pulmonary artery systolic pressure is 40 mmHg. Aortic Valve Trisinus/trileaflet aortic valve. Moderate diffuse aortic valve thickening. Moderate aortic stenosis. Mild (1+) aortic valve insufficiency. Pulmonic Valve There is no pulmonic valvular stenosis. No pulmonic valve insufficiency. Great Vessels Normal aortic root. Pericardium/Pleural No pericardial effusion. MMode/2D Measurements Calculations LVIDd: 4.2 cm IVSd: 1.1 cm LVOT diam: 2.0 cm LVIDs: 2.2 cm LVPWd: 1.1 cm LVOT area: 3.2 cm2 RVDd: 3.9 cm FS: 48.3 % LA dimension: 4.4 cm LAV(MOD-bp): 83.6 ml LA A4 area: 25.0 cm2 LAV(MOD-bp) Indexed: 50.2 ml/m2 LAV(MOD-sp2): 82.4 ml LAV(MOD-sp4): 83.6 ml RA A4 area: 21.7 cm2 Doppler Measurements Calculations MV E max lizett: 105.6 cm/sec MV V2 max: 138.9 cm/sec Ao V2 max: 340.1 cm/sec MV max P.7 mmHg Ao max P.4 mmHg MV V2 mean: 71.3 cm/sec Ao V2 mean: 240.2 cm/sec MV mean P.5 mmHg Ao mean P.9 mmHg MV V2 VTI: 26.5 cm Ao V2 VTI: 59.6 cm MVA(VTI): 2.2 cm2 AV (velocity ratio): 0.30 BRIDGET(I,D): 0.98 cm2 BRIDGET(V,D): 0.87 cm2 AI max lizett: 333.7 cm/sec LV V1 max: 91.9 cm/sec SV(LVOT): 58.1 ml AI max P.6 mmHg LV V1 max P.5 mmHg LV V1 mean P.8 mmHg AI dec slope: 219.6 cm/sec2 LV V1 mean: 60.5 cm/sec AI P1/2t: 445.1 msec LV V1 VTI: 18.0 cm TR max lizett: 302.8 cm/sec TR max P.7 mmHg ECHO/Echo Complete Interpretation Summary The estimated ejection fraction is 70 %. Unable to assess diastolic dysfunction. There is moderate biatrial dilatation. Mild (1+) mitral valve insufficiency. Moderate aortic stenosis. Mild (1+) aortic valve insufficiency. Ordering Physician: Erica Anand Referring Physician: Tony Soares Performed By: Darshan Pederson RCS 06/16/24 1448 Date Sarah Suggs MD CC: Dr. Bjorn Soares MD; Dr. Elmer Serrano DO; Dr. Erica Anand DO Date Dictated: 06/16/24 1041 Date Transcribed: 06/16/24 144 Motel Maid: Signed Normal [facility] Emergency Department Summary on 06-15-2024 Emergency Department Summary [facility] Medical Records Department [address] [place] [address] Emergency Department Summary 06/15/24 MR#: [id number] Acct: [id number] Name: JIL DÍAZ Rep #: [id number] : 1940 84 From: Eva Lisseth MCGILL PCP: Dr. Bjorn Soares MD Status:REG ER Location: ED ADDENDUM by Dr. Romaine Rivero MD on 06/15/24 at 1626 Care was turned over to me to make disposition after MRI. Since there is no evidence of epidural hematoma patient can be admitted to [facility]. Patient in the ED admitted for respiratory failure with hypoxemia due to COVID-19 infection. 06/15/24 1626 Cosigner Signature (if applicable): cc: Dr. Bjorn Soares MD * Signed HPI History of Present Illness Chief Complaint: Fall Detail of Chief Complaint: Fall and back pain Informant: patient Narrative Narrative: Patient presents the emergency department after sustaining a fall this morning. She states that she really did not fall but is kind of slid out of bed. She was unable to get up afterwards and was on the floor for about 3 hours or so until her son found her. She complaining of low back pain that started yesterday not associated with the fall necessarily. She complains of pain radiating into her left leg and also right leg. The pain in her left leg goes down to her foot. She is on Eliquis for history of A-fib. She denies any significant injury to her head or neck this morning. She denies abdominal pain or recent illness. [facility] Medical History Dyspnea on exertion Wears glasses Cancer Ambulates with cane Bladder disease History of renal disease High cholesterol Easy bruising Migraine headache Injury of head and neck Former smoker Leg cramps History of edema History of stress test History of echocardiogram Cardiology follow-up encounter Shortness of breath on exertion LLQ abdominal pain CKD (chronic kidney disease) stage 3, GFR 30-59 ml/min Heart murmur Concussion Chronic urticaria Basal cell carcinoma Aortic stenosis Nonrheumatic mitral (valve) insufficiency Nonrheumatic aortic (valve) insufficiency Secondary pulmonary arterial hypertension Hyperlipidemia Seasonal allergies Anemia Glaucoma GERD (gastroesophageal reflux disease) Essential (primary) hypertension Premature atrial contractions History of shingles History of basal cell cancer History of rectocele History of melanoma Home Medications ???Medication ???Instructions ???Recorded ???Last Taken ???Type biotin 10,000 mcg disintegrating 10,000 mcg PO DAILY 05/28/1706/03 History tablet famotidine 40 mg tablet 40 mg PO BID 05/28/17 06/14/24 His tory atorvastatin 10 mg tablet 10 mg PO QHS cholesterol 10/05/19 06/14/24 History dorzolamide 22.3 mg-timolol 6.8 1 drp EACH EYE BID 12/22/21 Unknow n History mg/mL eye drops latanoprost 0.005 % eye drops 1 drp EACH EYE DAILY 12/22/21 Unkn own History brimonidine 0.2 % eye drops 2 drp EACH EYE BID 11/10/22 History cholecalciferol (vitamin D3) 25 2,000 unit PO DAILY supplement 03/25 Unknown History mcg (1,000 unit) capsule cyanocobalamin (vitamin B-12) 2,000 mcg PO DAILY supplement 10/31 05/25 Unknown History 1,000 mcg tablet gabapentin 300 mg capsule 300 mg PO QHS 11/10/22 06/14/24 Hi story melatonin 5 mg tablet 5 mg PO HS PRN sleep 11/10/22 Unkn own History Handicap placard #1 ea 04/12/23 Unknown Rx vitamins A,C,J-qlry-pfllpz 4,296 1 cap PO BID eye health 04/12/23 U nknown History mcg-226 mg-90 mg capsule potassium chloride 20 mEq 20 meq PO BID #90 tabs 06/01/23 Rx tablet,extended release diltiazem HCl 120 mg 120 mg PO BID heart #90 caps 06/2306/14/24 Rx capsule,extended release 24 hr losartan 25 mg tablet 25 mg PO DAILY #90 tabs 06/23/23 0 06/14/24 Rx sucralfate 1 gram tablet 1 g PO ONCE #30 tabs 02/04/24 Unkn own Rx furosemide 40 mg tablet (Lasix) 40 mg PO DAILY #90 tabs 04/10/24 0 06/14/24 Rx apixaban 5 mg tablet (Eliquis) 5 mg PO BID #60 tabs 05/05/2406/03 Rx Allergy/AdvReac Type Severity Reaction Status Date / Time oxycodone (From Percocet) AdvReac Upset Verified 06/15/24 10:35 Stomach Family History Mother Anemia Hypertension Brother Hypertension Grandfather Cancer Surgical History Hx of colonoscopy History of bilateral cataract extraction History of hemorrhoidectomy History of repair of right rotator cuff History of laparoscopy History of appendectomy History of hysterectomy Social History household members: family housing: house S (more content not included)... Normal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 She tripped over a cement parking lot stop. She was not knocked out. So far as she knows, she was the product of an (more content not included)... Normal [facility] Vit B12 SerPl-ncon 025 Cobalamin (Vitamin B12) [Mass/Vol] 728 pg/mL Normal 232-1245 [facility] Comment on above: Order Comment: Speci men Type: BLOOD SPECIMENOrdering Facility: [facility] Address: [address] [place] [address] Performed By: #### 2 132-9 ####[facility] LABCLIA [id number] [facility] [id number] [address] [place] HISTORY PHYSICALon HISTORY PHYSICAL HNO ID: [id number] Author: JULIA BARROW MD Service: ? Author Type: Physician Type: H&P Filed: 05/15/2024 07:56 Note Text: Chart Review Parenthetic [comments] and tinted emphasis mine. Consultation is requested for an opinion regarding the evaluation and treatment of Jil Díaz. My final impression and recommendations will be communicated back to the referring physician by way of the shared medical record or letter via [place] mail. Jil Díaz is referred by COY Shepard [place], 04/12/24, for hallucinations and impaired memory/cognition. On 04/10/24 she documented: Since ER visit hs not had anymore hallucinations. 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 Patient does not deny this but does not elaborate much when asked about it. Son said she drove to [place] the other day and did say she got lost come home. Per son was not gone for an extended amount of time. MMSE completed five days ago with sore of . Currently lives with son. No recent medication changes or head injury. Son reports [her] balance is not good. ------ MRI brain wwo on 04/12/24 found: No acute intracranial abnormalities. Age-related changes including mild parenchymal volume loss. ------ TSH 1.76 on 09/01/21 Ms. Díaz has not had a B12 level in [facility] or [facility]. ====== PMHx includes atrial fibrillation, moderate aortic stenosis, mitral regurgitation, concussion (2016), HTN, HLD, and melanoma. Problem List adds post herpetic neuralgia and urinary incontinence. ====== Est GFR 40 on 11/30/23 ====== Julia Barrow MD [facility] [id number] 05-04-2024 [id number] HNO ID: [id number] Author: ODETTE HARVEY PT Service: ? Author Type: Physical Therapist Type: [id number] Filed: 05/04/2024 11:34 Note Text: [facility] Physical Therapy Plan of Care Certification Patient Name: Jil Díaz : 1940 CC #: [id number] Date: 05/04/2024 To: Drea Colon APRN.C* From Therapist: Odette Harvey PT RE: Patient Certification/ Recertification Your review, approval and electronic signature are required in order to comply with Payor: MEDICARE / Plan: MEDICARE A AND B / Product Type: Medicare / regulations. The identified Physical Therapy PLAN OF CARE for the patient is as follows: R26.9 Gait disturbance PLAN OF CARE: Assessment: Jil Díaz presents with diagnosis of gait disturbance that interferes with walking in the house, walking in the community . The patient presents with impairments in ADL's, balance, gait, independence in exercise, joint mobility, overall function, patient reported outcome measures, posture, strength, and symptom management. PROMIS? (Patient-Reported Outcomes Measurement Information System) scores were reviewed and identified as a rehabilitation concern. Prognosis for therapy is Good due to: within-session changes, positive past response to therapy, acuteness of condition, good overall health status, current objective clinical presentation . The patient will benefit from skilled therapy services to meet the goals established for this plan of care as noted below. Assessment Fall Risk : Active low risk Goals for Episode of Care: established 05/04/24 Patient will report no falls. Pt. Will complete TUG test in 10 sec or less with SC. Patient Goals: reduce fall risk Time Frame for Goals and Treatment : 06/15/24 Planned Interventions, Frequency, and Duration: Current Frequency: 1x/week Duration: 6 weeks Total Number of Visits Planned: 6 Planned Treatment Interventions: Gait Training (49520), Self-shelter management (95907), Therapeutic activities (34348), Manual therapy (64466), Neuromuscular re-education (34664), Therapeutic exercise (51304) PLAN FOR NEXT VISIT: Pt. to return if she feels that she needs therapy later. Patient demonstrates good understanding of plan of care and treatment. The above goals and plan of care were discussed and agreed upon by patient/family. For further details regarding this patient refer to the Physical Therapy electronically documented visit dated 05/04/2024. Provider Attestation I have reviewed the treatment plan for Jil Díaz, [facility]# [id number] for the period of 05/04/24 -- 06/15/24, established on 05/04/2024. Signature certifies the need for therapy services. [facility] CNTHERAPYon 05-04-2024 CNTHERAPY OT/PT/Speech Visit (PTWS) JIL DÍAZ ([id number]) 1940 F Date Time Provider Department 05/04/24 10:15 AM ODETTE HARVEY Date Time Provider Department Center 05/04/2024 10:15 AM [id number] HARVEY Reason for Visit: PT Eval [747] Visit Diagnosis:Gait disturbance [R26.9] Allergies As of Date: 05/04/2024 Noted Allergy Reaction OXYCODONE 03/11/2017 9 - Itching Date Reviewed: 04/10/2024 Reviewed by: Lillie Hu LPN - Fully Assessed Prescriptions as of 05/08/2024 - atorvastatin (LIPITOR) 20 mg tablet Take 1 tablet by mouth once daily. - famotidine (PEPCID) 40 mg tablet Take 1 tablet by mouth two times a day. - apixaban (ELIQUIS) 5 mg tab(s) Take 5 mg by mouth two times a day. - potassium chloride 20 mEq TbER Take 20 mEq by mouth once daily. - furosemide (LASIX) 40 mg tablet Take 40 mg by mouth once daily. - dilTIAZem CD (CARDIZEM CD, CARTIA XT) 120 mg 24 hr capsule Take 1 capsule by mouth once daily. - losartan (COZAAR) 50 mg tablet Take 1 tablet by mouth once daily. - dorzolamide-timolol (COSOPT) 22.3-6.8 mg/mL ophthalmic solution Use 1 Drop in both eyes twice daily. - brimonidine (ALPHAGAN) 0.2 % ophthalmic solution - gabapentin (NEURONTIN) 300 mg capsule Take 1 tablet morning and bedtime May take one tablet in afternoon as needed for pain Per Dr. Martinez - lidocaine (LIDODERM) 5 % Apply 1 Patch as directed every 12 hours. - latanoprost (XALATAN) 0.005 % ophthalmic solution Use 1 Drop in both eyes once daily. - vit C,N-Xy-ulzso-lutein-z eaxan (PRESERVISION AREDS-2) 250-90-40-1 mg Take 1 tablet by mouth twice daily at 6AM and 9PM. - BIOTIN ORAL Take 5,000 mg by mouth once daily. - Cholecalciferol, Vitamin D3, 25 mcg (1,000 unit) cap Take 1,000 Units by mouth once daily. - CYANOCOBALAMIN, VITAMIN B-12, (VITAMIN B-12 ORAL) Take 1,000 mg by mouth once daily. [facility] Gastroenterology Visit Repor ton 04-17-2024 Gastroenterology Visit Report [facility] [address] [place] [address] OFFICE VISIT Date of Service: 04/17/24 MR#: [id number] Acct: [id number] Name: JIL DÍAZ Rep #: [id number] : 1940 Provider: JAGJIT garber Age/Sex: 83/F [place] [facility] [place] Status: Signed Intake Vital Signs 02/12/24 12:42 03/09/24 14:03 04/05/24 10:05 04/17/24 13:50 Height 5 ft 4 in 5 ft 4 in 5 ft 4 in 5 ft 4 in Weight: 137 lb 2 oz BMI 23.5 BP 135/62 H Respiration 16 Pulse 72 Pulse Oximetry (%) 97 Oxygen Delivery Method room air Intake Visit Reasons: bowel changes Chief Complaint: LLE injury Accompanied by: Son Allergies oxycodone (From Percocet) Adverse Reaction (Verified 04/17/24 13:46) Upset Stomach Medications ???Medication ???Instructions ???Recorded ???Confirmed ???Type biotin 10,000 mcg disintegrating 10,000 mcg PO DAILY 05/28/17 04/17/24 History tablet famotidine 40 mg tablet 40 mg PO BID 05/28/17 04/17/24 History atorvastatin 10 mg tablet 10 mg PO QHS cholesterol 10/05/19 04/17/24 History dorzolamide 22.3 mg-timolol 6.8 1 drp EACH EYE BID 12/22/21 04/17/24 History mg/mL eye drops latanoprost 0.005 % eye drops 1 drp EACH EYE DAILY 12/22/21 04/17/24 History brimonidine 0.2 % eye drops 2 drp EACH EYE BID 11/10/22 04/17/24 History cholecalciferol (vitamin D3) 25 2,000 unit PO DAILY supplement 11/10/22 04/17/24 History mcg (1,000 unit) capsule cyanocobalamin (vitamin B-12) 2,000 mcg PO DAILY supplement 11/10/22 04/17/24 History 1,000 mcg tablet gabapentin 300 mg capsule 300 mg PO QHS 11/10/22 04/17/24 History melatonin 5 mg tablet 5 mg PO HS PRN sleep 11/10/22 04/17/24 History Handicap placard #1 ea 04/12/23 04/17/24 Rx vitamins A,C,H-ortg-obhfal 4,296 1 cap PO BID eye health 04/12/23 04/17/24 History mcg-226 mg-90 mg capsule potassium chloride 20 mEq 20 meq PO BID #90 tabs 06/01/23 04/17/24 Rx tablet,extended release diltiazem HCl 120 mg 120 mg PO BID heart #90 caps 06/23/23 04/17/24 Rx capsule,extended release 24 hr losartan 25 mg tablet 25 mg PO DAILY #90 tabs 06/23/23 04/17/24 Rx sucralfate 1 gram tablet 1 g PO ONCE #30 tabs 02/04/24 04/17/24 Rx apixaban 5 mg tablet (Eliquis) 5 mg PO BID #60 tabs 04/10/24 04/17/24 Rx furosemide 40 mg tablet (Lasix) 40 mg PO DAILY #90 tabs 04/10/24 04/17/24 Rx Have you fallen in the past year?: Yes Nurse's Note: No change since last visit. Occassionally has diarrhea, that has improved but she has constipation often. Bowels will move when she takes Miralax. This really only happens when she eats cheese. [facility] Medical History Dyspnea on exertion Wears glasses Cancer Ambulates with cane Bladder disease History of renal disease High cholesterol Easy bruising Migraine headache Injury of head and neck Former smoker Leg cramps History of edema History of stress test History of echocardiogram Cardiology follow-up encounter Shortness of breath on exertion LLQ abdominal pain CKD (chronic kidney disease) stage 3, GFR 30-59 ml/min Heart murmur Concussion Chronic urticaria Basal cell carcinoma Aortic stenosis Nonrheumatic mitral (valve) insufficiency Nonrheumatic aortic (valve) insufficiency Secondary pulmonary arterial hypertension Hyperlipidemia Seasonal allergies Anemia Glaucoma GERD (gastroesophageal reflux disease) Essential (primary) hypertension Premature atrial contractions History of shingles History of basal cell cancer History of rectocele History of melanoma Surgical History Hx of colonoscopy History of bilateral cataract extraction History of hemorrhoidectomy History of repair of right rotator cuff History of laparoscopy History of appendectomy History of hysterectomy Family History Mother Anemia Hypertension Brother Hypertension Grandfather Cancer Social History household members: family housing: house Smoking Status: Former smoker Tobacco: How many years used: 25 how long ago did patient quit smokin alcohol intake: never substance use type: does not use what type of physical activity do you participate in: none HPI HPI Chief Complaint: LLE injury Details: JIL DÍAZ, is a 83 F who presents to the office today for 83y/o female presents for consultation with complaints of a change in bowel habits. She was last seen by Dr. Ng 02/04/2024 with complaints of alternating constipation and diarrhea. She denies any abdominal pain and reports resolution in diarrhea. She is continuing to experience constipation with a BM every few da (more content not included)... [facility] 04-12-2024 [facility] Telephone (REBEKAH) JIL DÍAZ ([id number]) 1940 F Date Time Provider Department 04/12/24 DREA COLON During your visit today, we recorded the following information about you: Drea Colon APRN.COY 04/12/2024 11:28 AM Signed MRI no showing any acute findings to explain behavior. Discussed with Dr. Soares and he recommend referral to neurology. I have placed order for this, please assist in scheduling. Drea Colon APRN.Lillie Markham LPN 04/12/2024 11:42 AM Signed Telephone call placed to patients son James. Message left to call office back for update. BRIA Paredes Jillian, LPN 04/12/2024 11:49 AM Signed Patients son notified and voiced his understanding. Allergies As of Date: 04/12/2024 Noted Allergy Reaction OXYCODONE 03/11/2017 9 - Itching Date Reviewed: 04/10/2024 Reviewed by: Lillie Hu LPN - Fully Assessed Primary Visit Diagnosis:Hallucinati ons [R44.3] Other Visit Diagnosis:Impaired cognition [R41.89] Order(s):CONSULT TO NEUROLOGY [3859] Order #: [id number]: 1 FUTURE Prescriptions as of 04/12/2024 - atorvastatin (LIPITOR) 20 mg tablet Take 1 tablet by mouth once daily. - famotidine (PEPCID) 40 mg tablet Take 1 tablet by mouth two times a day. - apixaban (ELIQUIS) 5 mg tab(s) Take 5 mg by mouth two times a day. - potassium chloride 20 mEq TbER Take 20 mEq by mouth once daily. - furosemide (LASIX) 40 mg tablet Take 40 mg by mouth once daily. - dilTIAZem CD (CARDIZEM CD, CARTIA XT) 120 mg 24 hr capsule Take 1 capsule by mouth once daily. - losartan (COZAAR) 50 mg tablet Take 1 tablet by mouth once daily. - dorzolamide-timolol (COSOPT) 22.3-6.8 mg/mL ophthalmic solution Use 1 Drop in both eyes twice daily. - brimonidine (ALPHAGAN) 0.2 % ophthalmic solution - gabapentin (NEURONTIN) 300 mg capsule Take 1 tablet morning and bedtime May take one tablet in afternoon as needed for pain Per Dr. Martinez - lidocaine (LIDODERM) 5 % Apply 1 Patch as directed every 12 hours. - latanoprost (XALATAN) 0.005 % ophthalmic solution Use 1 Drop in both eyes once daily. - vit C,C-Tc-kxqvq-lutein-z eaxan (PRESERVISION AREDS-2) 250-90-40-1 mg Take 1 tablet by mouth twice daily at 6AM and 9PM. - BIOTIN ORAL Take 5,000 mg by mouth once daily. - Cholecalciferol, Vitamin D3, 25 mcg (1,000 unit) cap Take 1,000 Units by mouth once daily. - CYANOCOBALAMIN, VITAMIN B-12, (VITAMIN B-12 ORAL) Take 1,000 mg by mouth once daily. Problem List As Of Date 04/12/2024 Noted Resolved Chronic urticaria [L50.8] 05/13/2016 Hypertension [I10] Insomnia [G47.00] Post herpetic neuralgia [B02.29] Heart murmur [R01.1] GERD (gastroesophageal reflux disease) [K21.9] Hyperlipidemia [E78.5] Melanoma (HCC) [C43.9] 09/07/2022 VILLEGAS (dyspnea on exertion) [R06.09] 11/20/2017 Bilateral carotid artery disease (HCC) [I77.9] 11/20/2017 Mitral regurgitation [I34.0] Fall [W19.XXXA] 12/19/2018 Aortic stenosis [I35.0] OAB (overactive bladder) [N32.81] 04/09/2021 Mixed urge and stress incontinence [N39.46] 04/09/2021 Pulmonary arterial hypertension (HCC) [I27.21] 09/07/2022 Chronic kidney disease, stage 3a (HCC) [N18.31] 09/13/2023 Atrial fibrillation (HCC) [I48.91] 04/21/2023 Glaucoma [H40.9] 09/15/2023 Encounter Status:Closed by SIMA JENNINGS on 04/12/24 [facility] MRI BRAIN WO/W IVCONon 04-12 MRI BRAIN WO/W IVCON * * *Final Report* * * DATE OF EXAM: Apr 12 2024 9:57AM WR 0295 - MRI BRAIN WO/W IVCON / PROCEDURE REASON: Cognitive impairment, mild, so stated * * * * Physician Interpretation * * * * EXAMINATION: MRI BRAIN WO/W IVCON CLINICAL HISTORY: Confusion and hallucinations. TECHNIQUE: Routine brain MRI protocol without and with contrast including diffusion images. MQ: [id number] Contrast: 6 mL Elucirem IV COMPARISON: CT brain 07/02/2023 RESULT: Acute Change: There is no evidence of restricted diffusion to suggest an acute infarct. Hemorrhage: No evidence of prior parenchymal hemorrhage on the susceptibility weighted images. Mass Lesion/ Mass Effect: No evidence of an intracranial mass or extra-axial fluid collection. No abnormal parenchymal or leptomeningeal enhancement is noted following contrast administration. No significant mass effect. Chronic Change: Scattered punctate foci of increased T2 and FLAIR signal are noted in the supratentorial white matter which is a nonspecific finding, but likely represents minimal chronic microvascular ischemia. Parenchyma: There is mild generalized parenchymal volume loss. The brain parenchyma is otherwise within normal limits of signal intensity and morphology. Ventricles: Ventriculomegaly corresponds to the degree of parenchymal volume loss. Skull Base: Hypothalamic and pituitary region are grossly normal. Craniocervical junction is normal. No significant marrow replacement process. Vasculature: Major intracranial arterial structures, and dural venous sinuses show typical flow void, suggesting patency by spin echo criteria. Other: The visualized paranasal sinuses and mastoid air cells are clear. Bilateral lens replacements. Orbits and globes are otherwise unremarkable. The extracranial soft tissues are unremarkable. IMPRESSION: No acute intracranial abnormalities. Age-related changes including mild parenchymal volume loss. Motel Maid: MAYITO Transcribe Date/Time: Apr 12 2024 10:00A Dictated by : JOE WYMAN MD This examination was interpreted and the report reviewed and electronically signed by: DADA SEAMAN MD on Apr 12 2024 11:14AM EST [id number] [facility] CNOVon 04-10-2024 CNOV Office Visit (FAMPWS ) JIL DÍAZ ([id number]) 1940 F Date Time Provider Department 04/10/24 2:40 PM DREA COLON During your visit today, we recorded the following information about you: Pulse Respiration Blood pressure Weight 78/minute 18/minute 138/84 61.4 kg Drea Colon APRN.CNP 04/10/2024 4:01 PM Signed 04/10/2024 Patient presents with: ER F/U: UTI AND head CT; [facility] SUBJECTIVE: This is a 83 year old, accompanied by son, that is here today for Above Complaints. HOSPITAL/ER FOLLOW UP: Reason for visit: confusion and hallucinations Which facility: [facility] Date of visit: 04/05/2024 Diagnosis: confusion Testing done: CT brain, blood work, urine, XR and EKG Treatment given: potassium supplement for hypokalemia Since ER visit hs not had anymore hallucinations. 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 Patient does not deny this but does not elaborate much when asked about it. Son said she drove to [place] the other day and did say she got lost come home. Per son was not gone for an extended amount of time. MMSE completed five days ago with sore of . Currently lives with son. No recent medication changes or head injury. Son reports he balance is not good. Had a fall on Thanksgiving without injury. ER records reviewed PAST MEDICAL HISTORY Diagnosis Date Aortic stenosis moderate Atrial fibrillation (HCC) 04/21/2023 Basal cell carcinoma Cataracts, bilateral s/p removal Chronic kidney disease (CKD), stage III (moderate) (HCC) Chronic urticaria seeing Dr. Card Concussion 05/2015 fell off step stool COVID-19 GERD (gastroesophageal reflux disease) with esophagitis on EGD Glaucoma Hamstring strain bilateral legs Heart murmur History of shingles 2015 Hyperlipidemia Hypertension Insomnia Macular degeneration Melanoma (HCC) Mitral regurgitation Dr. Ibarra Post herpetic neuralgia lidocaine patch Premature contractions, atrial PUD (peptic ulcer disease) 01/2023 Renal cysts, acquired, bilateral ALLERGIES Oxycodone MEDICATIONS Current Outpatient Medications Medication Sig nitrofurantoin monohydrate and macrocrystal (MACROBID) 100 mg capsule Take 1 capsule by mouth two times a day with meals for 7 days. atorvastatin (LIPITOR) 20 mg tablet Take 1 tablet by mouth once daily. famotidine (PEPCID) 40 mg tablet Take 1 tablet by mouth two times a day. apixaban (ELIQUIS) 5 mg tab(s) Take 5 mg by mouth two times a day. potassium chloride 20 mEq TbER Take 20 mEq by mouth once daily. furosemide (LASIX) 40 mg tablet Take 40 mg by mouth once daily. dilTIAZem CD (CARDIZEM CD, CARTIA XT) 120 mg 24 hr capsule Take 1 capsule by mouth once daily. losartan (COZAAR) 50 mg tablet Take 1 [...] Drop in both eyes once daily. vit C,U-Lk-yfdxv-lutein-z eaxan (PRESERVISION AREDS-2) 250-90-40-1 mg Take 1 tablet [...] Social History Tobacco Use Smoking status: Former Current packs/day: 0.00 Average packs/day: 0.5 packs/day for 10.0 years (5.0 ttl pk-yrs) Types: Cigarettes Start date: 05/03/1978 Quit date: 05/03/1988 Years since quittin.9 Smokeless tobacco: Never Substance Use Topics Alcohol use: No Drug use: No REVIEW OF SYSTEMS All other reviewed and negative other than HPI. OBJECTIVE: BP 138/84 Pulse 78 Resp 18 Wt 61.4 kg (135 lb 5.8 oz) SpO2 94% BMI 23.23 kg/m? . Vital signs reviewed by this provider. APPEARANCE Well appearing, alert, in no acute distress, well-hydrated, well nourished. Depression Screening Never done Anxiety Screening Never done Advance Directive Discussion Never done Influenza Vaccine(1) due on 10/30/2024 Covid-19 Vaccine( - 2023- season) due on 04/10/2025 Diabetes Screening due on 11/29/2026 DTaP,Tdap,Td Vaccine(4 - Td or Tdap) due on 11/18/2033 Bone Density Screening Completed RSV Vaccine Completed Shingrix Vaccine Completed Pneumococcal Vaccine: 65+ Completed ASSE (more content not included)... [facility] 04-06-2024 [facility] Telephone (CHUNWS) JIL DÍAZ ([id number]) 1940 F Date Time Provider Department 04/06/24 TONY SOARES During your visit today, we recorded the following information about you: Meme Gant LPN 04/06/2024 3:58 PM Signed ----- Message from Tony Soares MD sent at 04/06/2024 1:59 PM EST ----- Urine culture negative for infection. May stop macrobid at this time. F/u from ER visit early next week. Meme Gant LPN 04/06/2024 4:12 PM Signed Spoke with pt and she is not sure what date she was to ER only that she thought it was this week. Pt not sure what ER she was to. Pt reports she does know it was for a UTI and CT of head. ER apt booked but do not have any detailed information. Meme Gant LPN Allergies As of Date: 04/06/2024 Noted Allergy Reaction OXYCODONE 03/11/2017 9 - Itching Date Reviewed: 04/05/2024 Reviewed by: Beatriz Isaac LPN - Fully Assessed Prescriptions as of 04/06/2024 - nitrofurantoin monohydrate and macrocrystal (MACROBID) 100 mg capsule Take 1 capsule by mouth two times a day with meals for 7 days. - atorvastatin (LIPITOR) 20 mg tablet Take 1 tablet by mouth once daily. - famotidine (PEPCID) 40 mg tablet Take 1 tablet by mouth two times a day. - apixaban (ELIQUIS) 5 mg tab(s) Take 5 mg by mouth two times a day. - potassium chloride 20 mEq TbER Take 20 mEq by mouth once daily. - furosemide (LASIX) 40 mg tablet Take 40 mg by mouth once daily. - dilTIAZem CD (CARDIZEM CD, CARTIA XT) 120 mg 24 hr capsule Take 1 capsule by mouth once daily. - losartan (COZAAR) 50 mg tablet Take 1 tablet by mouth once daily. - dorzolamide-timolol (COSOPT) 22.3-6.8 mg/mL ophthalmic solution Use 1 Drop in both eyes twice daily. - brimonidine (ALPHAGAN) 0.2 % ophthalmic solution - gabapentin (NEURONTIN) 300 mg capsule Take 1 tablet morning and bedtime May take one tablet in afternoon as needed for pain Per Dr. Martinez - lidocaine (LIDODERM) 5 % Apply 1 Patch as directed every 12 hours. - latanoprost (XALATAN) 0.005 % ophthalmic solution Use 1 Drop in both eyes once daily. - vit C,Z-Bc-jgwon-lutein-z eaxan (PRESERVISION AREDS-2) 250-90-40-1 mg Take 1 tablet by mouth twice daily at 6AM and 9PM. - BIOTIN ORAL Take 5,000 mg by mouth once daily. - Cholecalciferol, Vitamin D3, 25 mcg (1,000 unit) cap Take 1,000 Units by mouth once daily. - CYANOCOBALAMIN, VITAMIN B-12, (VITAMIN B-12 ORAL) Take 1,000 mg by mouth once daily. Problem List As Of Date 04/06/2024 Noted Resolved Chronic urticaria [L50.8] 05/13/2016 Hypertension [I10] Insomnia [G47.00] Post herpetic neuralgia [B02.29] Heart murmur [R01.1] GERD (gastroesophageal reflux disease) [K21.9] Hyperlipidemia [E78.5] Melanoma (HCC) [C43.9] 09/07/2022 VILLEGAS (dyspnea on exertion) [R06.09] 11/20/2017 Bilateral carotid artery disease (HCC) [I77.9] 11/20/2017 Mitral regurgitation [I34.0] Fall [W19.XXXA] 12/19/2018 Aortic stenosis [I35.0] OAB (overactive bladder) [N32.81] 04/09/2021 Mixed urge and stress incontinence [N39.46] 04/09/2021 Pulmonary arterial hypertension (HCC) [I27.21] 09/07/2022 Chronic kidney disease, stage 3a (HCC) [N18.31] 09/13/2023 Atrial fibrillation (HCC) [I48.91] 04/21/2023 Glaucoma [H40.9] 09/15/2023 Encounter Status:Closed by MEME GANT on 04/06/24 [facility] 12 Lead EKGon 04-05-2024 12 Lead EKG [facility] Cardiovascular Services [address] [place] [address] 12 Lead EKG 04/05/24 1107 MR#: [id number] Acct: [id number] Name: JIL DÍAZ Rep #: [id number] : 1940 83 From: Julia Galdamez MD Attending Dr: Status: DEP ER Ordering Dr: Steve Interiano DO Date: 04/05/24 Location: ED Sex: F C Admitted: Test Reason : Blood Pressure : */* mmHG Vent. Rate : 101 BPM Atrial Rate : * BPM P-R Int : * ms QRS Dur : 76 ms QT Int : 306 ms P-R-T Axes : * -7 -41 degrees QTcB Int : 396 ms Atrial fibrillation with rapid ventricular response Minimal voltage criteria for LVH, may be normal variant ( R in aVL ) Cannot rule out Septal infarct (cited on or before 09-Mar-2024) Abnormal ECG Reconfirmed by Julia Galdamez ([id number]), book or script editor MICHAEL PEÑA ([id number]) on 04/06/2024 1:05:56 PM Referred By: Confirmed By: Julia Galdamez 04/06/24 1305 Date Julia Galdamez MD CC: Dr. Bjorn Soares MD; Dr. Steve Interiano DO Signed Normal [facility] Absolute neutrophil countOrd ered By: Steve Interiano on 04-05-2024 Neutrophils (Bld) [#/Vol] 3.3 10*3/uL 2.0-7.7 [facility] Albumin to globulin ratioOrd ered By: Steve Interiano on 04-05-2024 Albumin/Globulin [Mass ratio] 1.0 {ratio} 0.9-2.4 [facility] Bacteria Ur Culton Bacteria identified Cx Nom (U) ORGANISM ID: 1 10,000 -<50,000 CFU/ml Normal urogenital dar Normal [facility] Comment on above: Performed By: #### 6 30-4 ####[facility] LABCLIA [id number] [place] [address] [place] Basophil percentageOrdered B y: Steve Interiano on 04-05-2024 Basophils/100 WBC (Bld) 1.9 % High 0-1 [facility] Bilirubin Test strip Ql (U)O rdered By: Steve Laisha on 04-05-2024 Bilirubin Ql (U) 1 mg/dL High Negative [facility] Comment on above: COLOR OF URINE MAY A FFECT DIPSTICK RESULTS. Bilirubin, totalOrdered By: Steve Interiano on 04-05-2024 Bilirubin [Mass/Vol] 1.10 mg/dL High 0.20-1.00 [facility] Comment on above: For patients on eltr ombopag therapy, use of Dimension [place] TBIL is not recommended. Blood urea nitrogen (BUN)/cr eatinine ratioOrdered By: Steve Le on 04-05-2024 Urea nitrogen/Creatinine [Mass ratio] 10.9 mg/mg 10-20 [facility] Brain/Head without Contrasto n 04-05-2024 Brain/Head without Contrast [facility] Imaging Services [address] [place] [address] Brain/Head without Contrast MR#: [id number] Acct: [id number] Name: JIL DÍAZ Rep #: [id number] : 1940 F 83 From: Esther mccray MD PCP: Dr. Bjorn Soares MD Status: REG ER Study: Brain/Head without Contrast Date of Exam: 08/24 Exam# [id number] Ordering Dr: Steve Interiano DO [id number] HISTORY: confusion. TECHNIQUE: Multiple axial images were obtained of the head without intravenous contrast. A radiation dose optimization technique was used for this scan. 235 images. COMPARISON: 03/09/2024. FINDINGS: BRAIN PARENCHYMA: Multiple foci and zones of low attenuation in the bilateral cerebral white matter compatible with chronic small vessel ischemic gliosis. Old right basal ganglia lacunar infarct. Chronic mild basal ganglia calcifications. No acute intra-axial hemorrhage identified. CSF SPACES: Generalized volume loss. No midline shift or other significant mass effect. No acute extra-axial hemorrhage seen. OTHER: Intact calvarium. No significant air fluid levels in the paranasal sinuses or mastoid air cells. Bilateral lens resections. CT/Brain/Head without Contrast IMPRESSION: No acute intracranial process identified. Chronic involutional and white matter changes. Electronically Signed: Esther Ayers MD at 11:22 EST , CC: Dr. Bjorn Soares MD; Dr. Steve Interiano DO Motel Maid: Signed Normal [facility] CBC W/Diff, Automatedon Absolute Lymph 1.41 X10 3/uL Normal 0.83-4.51 [facility] Comment on above: Performed By: #### L 100.0100, L500.4050 #### [facility] [address] [place], [address] Absolute Neut 3.3 X10 3/uL Normal 2.0-7.7 [facility] Comment on above: Performed By: #### L 100.0100, L500.4050 #### [facility] [address] [place], [address] Basophils/100 WBC (Bld) 1.9 % High 0-1 [facility] Comment on above: Performed By: #### L 100.0100, L500.4050 #### [facility] [address] [place], [address] Eosinophils/100 WBC (Bld) 1.5 % Normal 0-5 [facility] Comment on above: Performed By: #### L 100.0100, L500.4050 #### [facility] [address] [place], [address] Erythrocyte distribution width (RBC) [Ratio] 15.9 % High 11.6-14.6 [facility] Comment on above: Performed By: #### L 100.0100, L500.4050 #### [facility] [address] [place] [place], [address] Hematocrit (Bld) [Volume fraction] 44.4 % Normal 37-47 [facility] Comment on above: Performed By: #### L 100.0100, L500.4050 #### [facility] [address] [place], [address] Hemoglobin (Bld) [Mass/Vol] 13.8 g/dL Normal 12.0-15. 0 [facility] Comment on above: Performed By: #### L 100.0100, L500.4050 #### [facility] [address] [place], [address] IG% 0.200 Normal 0.0-0.9 [facility] Comment on above: Result Comment: IG% - Immature Granulocytes (promyelocytes, myelocytes and metamyelocytes) > 1% indicates that a LEFT SHIFT is Present. Performed By: #### L 100.0100, L500.4050 #### [facility] [address] [place], [address] Lymphocytes/100 WBC (Bld) 26.4 % Normal 19-41 [facility] Comment on above: Performed By: #### L 100.0100, L500.4050 #### [facility] [address] [place], [address] MCH (RBC) [Entitic mass] 28.7 pg Normal 27.0-32.0 [facility] Comment on above: Performed By: #### L 100.0100, L500.4050 #### [facility] [address] [place], [address] MCHC (RBC) [Mass/Vol] 31.1 g/dL Low 32-36 [facility] Comment on above: Performed By: #### L 100.0100, L500.4050 #### [facility] [address] [place], [address] MCV (RBC) [Entitic vol] 92.3 fL Normal 81-99 [facility] Comment on above: Performed By: #### L 100.0100, L500.4050 #### [facility] [address] [place], [address] Monocytes/100 WBC (Bld) 8.2 % Normal 0-10 [facility] Comment on above: Performed By: #### L 100.0100, L500.4050 #### [facility] [address] [place], [address] Neutrophils/100 WBC (Bld) 61.8 % Normal 47-70 [facility] Comment on above: Performed By: #### L 100.0100, L500.4050 #### [facility] [address] [place], [address] Nucleated RBC (Bld) [#/Vol] 0 10*3/uL Normal 0-5 [facility] Comment on above: Performed By: #### L 100.0100, L500.4050 #### [facility] [address] [place], [address] Platelet mean volume (Bld) [Entitic vol] 9.6 fL Normal 6.2-12.0 [facility] Comment on above: Performed By: #### L 100.0100, L500.4050 #### [facility] [address] [place], [address] Platelets (Bld) [#/Vol] 254 10*3/uL Normal 150-450 [facility] Comment on above: Performed By: #### L 100.0100, L500.4050 #### [facility] [address] [place], [address] RBC (Bld) [#/Vol] 4.81 10*6/uL Normal 4.2-5.4 [facility] Comment on above: Performed By: #### L 100.0100, L500.4050 #### [facility] [address] [place], [address] RDW SD 54.4 fl High 35.1-43.9 [facility] Comment on above: Performed By: #### L 100.0100, L500.4050 #### [facility] [address] [place], [address] WBC (Bld) [#/Vol] 5.3 10*3/uL Normal 4.4-11.0 [facility] Comment on above: Performed By: #### L 100.0100, L500.4050 #### [facility] [address] [place], [address] CNCOon 04-05-2024 CNCO Letter Text Normal [facility] CNOVon 04-05-2024 CNOV Office Visit (FAMPWS ) JIL DÍAZ ([id number]) 1940 F Date Time Provider Department 04/05/24 8:00 AM TONY SOARES During your visit today, we recorded the following information about you: Pulse Respiration Blood pressure Weight 76/minute 16/minute 126/64 61.1 kg Tony Soares MD 04/05/2024 9:49 AM Signed Chief Complaint Patient presents with: memory concerns Hallucinations HPI Jil Díaz is a 83 year old female who presents here today for Above Complaints. Patient accompanied today by son and daughter in law who are helping to provide her history. Family reports that about 2 weeks ago patient had sudden change in memory. They report that she was in the car and thought that there was a child in the car when there was none and this persisted most of the day. There have been other times where she has thought [employer] was out to the home or that family worked for [employer]. Prior to this had some mild confusion and had to think about dates and names a big before she could come up with them. No recent change in medication. Did have a fall on thanksgiving without head injury or LOC, but this was after symptoms started. Denies fever/chills, dysuria, hematuria, frequency, urgency, abdominal pain, nausea, vomiting, diarrhea, wheezing, SOB, slurred speech, vision changes, numbness/tingling/wea kness. Past medical history, appointments, medications, allergies reviewed. Previous Medical History PAST MEDICAL HISTORY Diagnosis Date Aortic stenosis moderate Atrial fibrillation (HCC) 04/21/2023 Basal cell carcinoma Cataracts, bilateral s/p removal Chronic kidney disease (CKD), stage III (moderate) (HCC) Chronic urticaria seeing Dr. Card Concussion 05/2015 fell off step stool COVID-19 GERD (gastroesophageal reflux disease) with esophagitis on EGD Glaucoma Hamstring strain bilateral legs Heart murmur History of shingles 2015 Hyperlipidemia Hypertension Insomnia Macular degeneration Melanoma (HCC) Mitral regurgitation Dr. Ibarra Post herpetic neuralgia lidocaine patch Premature contractions, atrial PUD (peptic ulcer disease) 01/2023 Renal cysts, acquired, bilateral Previous Surgical History PAST SURGICAL HISTORY Procedure Laterality Date APPENDECTOMY 1970 CATARACT EXTRACTION HX Bilateral 2012 CATARACT SURGERY, COMPLEX Bilateral R 10/2012-L 12/2012 CHOLECYSTECTOMY 2002 COLONOSCOPY 12/11/2015 10mm adenomatous polyp found, repeat in 3 years COLONOSCOPY FLX DX W/COLLJ SPEC WHEN PFRMD 02/15/2019 Colonoscopy. repeat in 5 years. EGD 12/11/2015 post gastric ulcer deformity noted in pre-pyloric region and antrum. ESOPHAGOGASTRODUODENO SCOPY TRANSORAL DIAGNOSTIC 02/15/2019 EGD HEMORRHOIDECTOMY 2010 MELANOMA [...] on File Prior to Visit Medication Sig atorvastatin (LIPITOR) 20 mg tablet Take 1 tablet by mouth once daily. famotidine (PEPCID) 40 mg tablet Take 1 tablet by mouth two times a day. apixaban (ELIQUIS) 5 mg tab(s) Take 5 mg by mouth two times a day. potassium chloride 20 mEq TbER Take 20 mEq by mouth once daily. furosemide (LASIX) 40 mg tablet Take 40 mg by mouth once daily. dilTIAZem CD (CARDIZEM CD, CARTIA XT) 120 mg 24 hr capsule Take 1 capsule by mouth once daily. lidocaine (LIDODERM) 5 % Apply 1 Patch as directed every 12 hours. latanoprost (XALATAN) 0.005 % ophthalmic solution Use 1 Drop in both eyes once daily. vit C,O-Rx-olaet-lutein-z eaxan (PRESERVISION AREDS-2) 250-90-40-1 mg Take 1 tablet by mouth twice daily at 6AM and 9PM. BIOTIN ORAL Take 5,000 mg by mouth once daily. Cholecalciferol, Vitamin D3, 25 mcg (1,000 unit) cap Take 1,000 Units by mouth once daily. CYANOCOBALAMIN, VITAMIN B-12, (VITAMIN B-12 ORAL) Take 1,000 mg by mouth once daily. losartan (COZAAR) 50 mg tablet Take 1 [...] visit. Social History Social History Tobacco Use S (more content not included)... Normal [facility] Carbon dioxide measurementOr dered By: Steve Interiano on 04-05-2024 CO2 [Moles/Vol] 29.0 mmol/L 21.0-32.0 [facility] Chest PA and Lateralon 04-05 Chest PA and Lateral [facility] Imaging Services [address] [place] [address] Chest PA and Lateral MR#: [id number] Acct: [id number] Name: JIL DÍAZ Rep #: [id number] : 1940 F 83 From: Esther mccray MD PCP: Dr. Bjorn Soares MD Status: REG ER Study: Chest PA and Lateral Date of Exam: 04/05/24 Exam# [id number] Ordering Dr: Steve Interiano DO [id number] HISTORY: cough. TECHNIQUE: XR Chest 2 Views. COMPARISON: 05/17/2023. FINDINGS: CARDIOMEDIASTINAL BORDERS: Cardiac silhouette within normal limits in size. Mediastinal contour also unchanged with calcification of the aortic knob. LUNGS: Radiographically clear. PLEURA: No pleural effusion or pneumothorax seen. OTHER: Mild scoliosis and degenerative change. Right upper quadrant surgical clips. RAD/Chest PA and Lateral IMPRESSION: No acute cardiopulmonary process identified. Electronically Signed: Esther Ayers MD at 11:26 EST , CC: Dr. Bjorn Soares MD; Dr. Steve Interiano DO Motel Maid: Signed Normal [facility] Chloride measurementOrdered By: Steve Interiano on 04-05-2024 Chloride [Moles/Vol] 110 mmol/L High 98-107 [facility] Comprehensive Metabolic Prof ilon 04-05-2024 Albumin [Mass/Vol] 3.5 g/dL Normal 3.2-5.0 [facility] Comment on above: Performed By: #### L 100.0100, L500.4050 #### [facility] [address] [place], [address] Albumin/Globulin [Mass ratio] 1.0 {ratio} Normal 0.9-2.4 [facility] Comment on above: Performed By: #### L 100.0100, L500.4050 #### [facility] [address] [place], [address] ALK P 124 U/L High 45-117 [facility] Comment on above: Performed By: #### L 100.0100, L500.4050 #### [facility] [address] [place], [address] ALT [Catalytic activity/Vol] 12 U/L Low 13-56 [facility] Comment on above: Performed By: #### L 100.0100, L500.4050 #### [facility] [address] [place], [address] AST [Catalytic activity/Vol] 13 U/L Low 15-37 [facility] Comment on above: Performed By: #### L 100.0100, L500.4050 #### [facility] [address] [place], [address] Bilirubin [Mass/Vol] 1.10 mg/dL High 0.20-1.00 [facility] Comment on above: Result Comment: For patients on eltrombopag therapy, use of Dimension [place] TBIL is not recommended. Performed By: #### L 100.0100, L500.4050 #### [facility] [address] [place], [address] BUN/CRE 10.9 RATIO Normal 10-20 [facility] Comment on above: Performed By: #### L 100.0100, L500.4050 #### [facility] [address] [place], [address] CA,Total 9.5 mg/dL Normal 8.5-10.1 [facility] Comment on above: Performed By: #### L 100.0100, L500.4050 #### [facility] [address] [place], [address] Chloride [Moles/Vol] 110 mmol/L High 98-107 [facility] Comment on above: Performed By: #### L 100.0100, L500.4050 #### [facility] [address] [place], [address] CO2 [Moles/Vol] 29.0 mmol/L Normal 21.0-32.0 [facility] Comment on above: Performed By: #### L 100.0100, L500.4050 #### [facility] [address] [place], [address] Creatinine [Mass/Vol] 1.19 mg/dL High 0.55-1.02 [facility] Comment on above: Result Comment: The validity of the calculated GFR GFRAA in patients over 70 years has not been determined. Clinical correlation is essential. Performed By: #### L 100.0100, L500.4050 #### [facility] [address] [place], [address] ECRCL 30.39 ml/min Normal [facility] Comment on above: Performed By: #### L 100.0100, L500.4050 #### [facility] [address] [place], [address] EST GFR - AA 56 mL/min Low >60 [facility] Comment on above: Result Comment: Afri can [place] GFR Calc Performed By: #### L 100.0100, L500.4050 #### [facility] [address] [place], [address] GAP 5 Normal 5-15 [facility] Comment on above: Performed By: #### L 100.0100, L500.4050 #### [facility] [address] [place], [address] GFR/1.73 sq M.predicted among non-blacks MDRD (S/P/Bld) [Vol rate/Area] 46 mL/min/{1.73_m2} Low >60 [facility] Comment on above: Result Comment: Non- GFR Calc Performed By: #### L 100.0100, L500.4050 #### [facility] [address] [place], [address] Globulin (S) [Mass/Vol] 3.4 g/dL Normal 2.2-4.2 [facility] Comment on above: Performed By: #### L 100.0100, L500.4050 #### [facility] [address] [place], [address] Glucose [Mass/Vol] 122 mg/dL High 74-106 [facility] Comment on above: Result Comment: Fast ing Glucose result from 100 to 125 mg/dL suggests IMPAIRED HOMEOSTASIS per A.D.A. criteria. Performed By: #### L 100.0100, L500.4050 #### [facility] [address] [place], [address] Potassium [Moles/Vol] 3.0 mmol/L Low 3.5-5.1 [facility] Comment on above: Performed By: #### L 100.0100, L500.4050 #### [facility] [address] [place], [address] Sodium [Moles/Vol] 144 mmol/L Normal 136-145 [facility] Comment on above: Performed By: #### L 100.0100, L500.4050 #### [facility] [address] [place], [address] T PROT 6.9 g/dL Normal 6.4-8.2 [facility] Comment on above: Performed By: #### L 100.0100, L500.4050 #### [facility] [address] [place], [address] Urea nitrogen [Mass/Vol] 13 mg/dL Normal 7-18 [facility] Comment on above: Performed By: #### L 100.0100, L500.4050 #### [facility] [address] [place], [address] Emergency Department Summary on 04-05-2024 Emergency Department Summary [facility] Medical Records Department [address] [place] [address] Emergency Department Summary 04/05/24 MR#: [id number] Acct: [id number] Name: JIL DÍAZ Rep #: [id number] : 1940 83 From: Steve Tabor PCP: Dr. Bjorn Soares MD Status:DEP ER Location: ED HPI History of Present Illness Chief Complaint: Confusion Informant: patient and family Narrative Narrative: Patient presenting here with son after seeing PCP for ER workup. Per son increasing confusion over the last 3 weeks. From PCP notes there is been some hallucinations at home with thoughts of there was a child in the car along with thoughts that [employer] was out at the home. Patient has no diagnosed dementia. She states she has chronic cough. No recent vomiting or diarrhea. No urinary symptoms. The office found to have urine small leukocytes with culture pending. Plan for antibiotic treatment. She took a stumble in the past week however did not hit her head. She is on Eliquis for history of atrial fibrillation. She was sent here for blood work and CT scan and if negative outpatient follow-up for further evaluation. Patient denies any headache. Patient states she does not feel forgetfulness however has been told by family that she has been. She understands this. [facility] Medical History Dyspnea on exertion Wears glasses Cancer Ambulates with cane Bladder disease History of renal disease High cholesterol Easy bruising Migraine headache Injury of head and neck Former smoker Leg cramps History of edema History of stress test History of echocardiogram Cardiology follow-up encounter Shortness of breath on exertion LLQ abdominal pain CKD (chronic kidney disease) stage 3, GFR 30-59 ml/min Heart murmur Concussion Chronic urticaria Basal cell carcinoma Aortic stenosis Nonrheumatic mitral (valve) insufficiency Nonrheumatic aortic (valve) insufficiency Secondary pulmonary arterial hypertension Hyperlipidemia Seasonal allergies Anemia Glaucoma GERD (gastroesophageal reflux disease) Essential (primary) hypertension Premature atrial contractions History of shingles History of basal cell cancer History of rectocele History of melanoma Home Medications ???Medication ???Instructions ???Recorded ???Last Taken ???Type biotin 10,000 mcg disintegrating 10,000 mcg PO DAILY 05/28/17 06/03/20 History tablet famotidine 40 mg tablet 40 mg PO BID 05/28/17 06/03/20 History atorvastatin 10 mg tablet 10 mg PO QHS cholesterol 10/05/19 06/02/20 History dorzolamide 22.3 mg-timolol 6.8 1 drp EACH EYE BID 12/22/21 Unknown History mg/mL eye drops latanoprost 0.005 % eye drops 1 drp EACH EYE DAILY 12/22/21 Unknown History brimonidine 0.2 % eye drops 2 drp EACH EYE BID 11/10/22 Unknown History cholecalciferol (vitamin D3) 25 2,000 unit PO DAILY supplement 11/10/22 Unknown History mcg (1,000 unit) capsule cyanocobalamin (vitamin B-12) 2,000 mcg PO DAILY supplement 11/10/22 Unknown History 1,000 mcg tablet gabapentin 300 mg capsule 300 mg PO QHS 11/10/22 Unknown History melatonin 5 mg tablet 5 mg PO HS PRN sleep 11/10/22 Unknown History Handicap placard #1 ea 04/12/23 Unknown Rx vitamins A,C,R-oedt-xsdzxo 4,296 1 cap PO BID eye health 04/12/23 Unknown History mcg-226 mg-90 mg capsule furosemide 40 mg tablet (Lasix) 40 mg PO DAILY #90 tabs 04/13/23 Unknown Rx potassium chloride 20 mEq 20 meq PO BID #90 tabs 06/01/23 Unknown Rx tablet,extended release diltiazem HCl 120 mg 120 mg PO BID heart #90 caps 06/23/23 Unknown Rx capsule,extended release 24 hr losartan 25 mg tablet 25 mg PO DAILY #90 tabs 06/23/23 Unknown Rx sucralfate 1 gram tablet 1 g PO ONCE #30 tabs 02/04/24 Unknown Rx apixaban 5 mg tablet (Eliquis) 5 mg PO BID #60 tabs 03/21/24 Unknown Rx Allergy/AdvReac Type Severity Reaction Status Date / Time oxycodone (From Percocet) AdvReac Upset Verified 04/05/24 10:07 Stomach Family History Mother Anemia Hypertension Brother Hypertension Grandfather Cancer Surgical History Hx of colonoscopy History of bilateral cataract extraction History of hemorrhoidectomy History of repair of right rotator cuff History of laparoscopy History of appendectomy History of hysterectomy Social History household members: family housing: house Smoking Status: Former smoker Tobacco: How many years used: 25 how long ago did patient quit smokin alcohol intake: never substance use type: does not use what type of physical activity do you participate in: none ROS ROS ED Constitutional Constitutional ED: Denies chills (more content not included)... Normal [facility] Eosinophil percentageOrdered By: Steve Interiano on 04-05-2024 Eosinophils/100 WBC (Bld) 1.5 % 0-5 [facility] Epithelial cells.squamous LM Ql (Urine sed)Ordered By: Steve Interiano on 04-05-2024 Epithelial cells.squamous LM.HPF (Urine sed) [#/Area] 5 /[HPF] 5-10 [facility] Erythrocyte distribution wid th ratioOrdered By: Steve Interiano on 04-05-2024 Erythrocyte distribution width (RBC) [Ratio] 15.9 % High 11.6-14.6 [facility] Erythrocyte distribution wid th standard deviationOrdered By: Steve Interiano on 04-05-2024 Erythrocyte distribution width (RBC) [Entitic vol] 54.4 fL High 35.1-43.9 [facility] Estimated glomerular filtrat ion rate (GFR) AmericanOrdered By: Steve Interiano on 04-05-2024 Estimated GFR (MDRD) Amer 56 mL/min Low >60 [facility] Comment on above: GFR Calc Estimation of creatinine will aranceOrdered By: Steve Interiano on 04-05-2024 Estimated Creatinine Clearance Calc 30.39 ml/min [facility] Glomerular filtration rate ( GFR) estimationOrdered By: Steve Interiano on 04-05-2024 Estimated GFR (MDRD) Non-Af Amer 46 mL/min Low >60 [facility] Comment on above: Non- GFR Calc Glucose Ql (U)Ordered By: Frank Interiano on 04-05-2024 Urine Glucose (UA) Normal mg/dl Normal [facility] Glucose measurementOrdered B y: Steve Interiano on 04-05-2024 Glucose [Mass/Vol] 122 mg/dL High 74-106 [facility] Comment on above: Fasting Glucose resu lt from 100 to 125 mg/dL suggests IMPAIRED HOMEOSTASIS per A.D.A. criteria. Hematocrit Auto (Bld) [Volum e fraction]Ordered By: Steve Interiano on 04-05-2024 Hematocrit (Bld) [Volume fraction] 44.4 % 37-47 [facility] Hemoglobin measurementOrdere d By: Steve Interiano on 04-05-2024 Hemoglobin (Bld) [Mass/Vol] 13.8 g/dL 12.0-15. 0 [facility] Immature granulocytes/100 WB C Auto (Bld)Ordered By: Steve Interiano on 04-05-2024 Immature granulocytes/100 WBC (Bld) 0.200 % 0.0-0.9 [facility] Comment on above: IG% - Immature Granu locytes (promyelocytes, myelocytes and metamyelocytes) > 1% indicates that a LEFT SHIFT is Present. Ketones Test strip Ql (U)Ord ered By: Steve Interiano on 04-05-2024 Ketones Ql (U) Negative Negative [facility] - Chemistry and C hemistry - challengeOrdered By: Steve Interiano on 12-04-2024 AST [Catalytic activity/Vol] 13 U/L Low 15-37 [facility] Lymphocytes Auto (Unsp spec) [#/Vol]Ordered By: Steve Interiano on 04-05-2024 Lymphocytes (Bld) [#/Vol] 1.41 10*3/uL 0.83-4.5 1 [facility] Lymphocytes/100 WBC Auto (Un sp spec)Ordered By: Steve Interiano on 04-05-2024 Lymphocytes/100 WBC (Bld) 26.4 % 19-41 [facility] MCV (mean corpuscular volume ) determinationOrdered By: Steve Interiano on 04-05-2024 MCV (RBC) [Entitic vol] 92.3 fL 81-99 [facility] Mean corpuscular hemoglobin (MCH) determinationOrdered By: Steve Interiano on 04-05-2024 MCH (RBC) [Entitic mass] 28.7 pg 27.0-32.0 [facility] Mean corpuscular hemoglobin concentration (MCHC) determinationOrdered By: Steve Interiano on 04-05-2024 MCHC (RBC) [Mass/Vol] 31.1 g/dL Low 32-36 [facility] Mean platelet volume determi nationOrdered By: Steve Interiano on 04-05-2024 Platelet mean volume (Bld) [Entitic vol] 9.6 fL 6.2-12.0 [facility] Microscopic analysis of urin e for red blood cells (RBC)Ordered By: Steve Interiano on 04-05-2024 Urine RBC 25-50 SEEN /hpf 0-5 [facility] Monocyte percentageOrdered B y: Steve Interiano on 04-05-2024 Monocytes/100 WBC (Bld) 8.2 % 0-10 [facility] Mucus LM Ql (Urine sed)Order ed By: Steve Interiano on 04-05-2024 Mucus Ql (Urine sed) 0 SEEN /hpf [facility] Neutrophil percentageOrdered By: Steve Interiano on 04-05-2024 Neutrophils/100 WBC (Bld) 61.8 % 47-70 [facility] Nitrite Test strip Ql (U)Ord ered By: Steve Interiano on 04-05-2024 Nitrite Ql (U) Negative Negative [facility] Nucleated red blood cell per centageOrdered By: Steve Interiano on 04-05-2024 Nucleated RBC/100 WBC (Bld) [Ratio] 0 % 0-5 [facility] Platelet countOrdered By: Frank mc Laisha on 04-05-2024 Platelets (Bld) [#/Vol] 254 10*3/uL 150-450 [facility] Potassium measurementOrdered By: Steve Interiano on 04-05-2024 Potassium [Moles/Vol] 3.0 mmol/L Low 3.5-5.1 [facility] Protein Test strip Ql (U)Ord ered By: Steve Interiano on 04-05-2024 Protein Ql (U) 30 mg/dl High Negative [facility] RBC Auto (Bld) [#/Vol]Ordere d By: Steev Interiano on 04-05-2024 RBC (Bld) [#/Vol] 4.81 10*6/uL 4.2-5.4 [facility] Serum anion gap measurementO rdered By: Steve Interiano on 04-05-2024 Anion gap [Moles/Vol] 5 mmol/L 5-15 [facility] Serum globulin measurementOr dered By: Steve Interiano on 04-05-2024 Globulin (S) [Mass/Vol] 3.4 g/dL 2.2-4.2 [facility] Serum or plasma alanine ash otransferase (ALT) measurementOrdered By: Steve Interiano on 04-05-2024 ALT [Catalytic activity/Vol] 12 U/L Low 13-56 [facility] Serum or plasma albumin jackson urement (mass/volume)Ordered By: Steve Interiano on 04-05-2024 Albumin [Mass/Vol] 3.5 g/dL 3.2-5.0 [facility] Serum or plasma alkaline sushant sphatase measurementOrdered By: Steve Interiano on 04-05-2024 ALP [Catalytic activity/Vol] 124 U/L High 45-117 [facility] Serum or plasma calcium jackson urement (mass/volume)Ordered By: Steve Interiano on 04-05-2024 Calcium [Mass/Vol] 9.5 mg/dL 8.5-10.1 [facility] Serum or plasma creatinine m easurement (mass/volume)Ordered By: Steve Interiano on 04-05-2024 Creatinine [Mass/Vol] 1.19 mg/dL High 0.55-1.02 [facility] Comment on above: The validity of the calculated GFR & GFRAA in patients over 70 years has not been determined. Clinical correlation is essential. Serum or plasma urea nitroge n measurement (mass/volume)Ordered By: Steve Interiano on 04-05-2024 Urea nitrogen [Mass/Vol] 13 mg/dL 7-18 [facility] Sodium levelOrdered By: Steve Interiano on 04-05-2024 Sodium [Moles/Vol] 144 mmol/L 136-145 [facility] Total proteinOrdered By: Bonilla Interiano on 04-05-2024 Protein [Mass/Vol] 6.9 g/dL 6.4-8.2 [facility] UA DIP, URINE (POC)on 2023 BILIRUBIN UA (POCT) Negative Negative [facility] CLARITY UA (POCT) Clear [facility] COLOR UA (POCT) Dark yellow [facility] GLUCOSE UA (POCT) Negative Negative mg/dL [facility] Hemoglobin Ql (U) Trace-intact Abnormal Negative [facility] Interpretation and review of laboratory results Abnormal [facility] KETONE UA (POCT) Negative Negative mg/dL [facility] LEUKOCYTES UA (POCT) Small Abnormal Negative [facility] NITRITE UA (POCT) Negative Negative [facility] PH UA (POCT) 6.0 4.5 - 8.0 [facility] Protein Ql (U) Negative Negative mg/dL [facility] SPECIFIC GRAVITY UA (POCT) 1.020 1 .005 - 1.030 [facility] UROBILINOGEN UA (POCT) 1.0 Suztete l E.U./dL [facility] Location:[facility], [address] [place] [address], [place], [address] [facility] POINT OF CARE [facility] Urinalysis, Completeon 04-05 BACTERIA 2+ /hpf Normal None Seen [facility] Comment on above: Order Comment: HALEY RAMSEY TO SPECIFY Performed By: #### L 400.0001 ####[facility] [address] [place], [place], [id number] EPI,SQUAMOUS 5-10 SEEN Normal 5-10 [facility] Comment on above: Order Comment: COLLE CTOR TO SPECIFY Performed By: #### L 400.0001 ####[facility] [address] [place], [address] RBC 25-50 SEEN Normal 0-5 [facility] Comment on above: Order Comment: HALEY CTOR TO SPECIFY Performed By: #### L 400.0001 ####[facility] [address] [place], [address] WBC >100 SEEN Normal 0-5 [facility] Comment on above: Order Comment: HALEY CTOR TO SPECIFY Performed By: #### L 400.0001 ####[facility] [address] [place], [address] BILIRUBIN URINE 1 mg/dL Abnormal Negative [facility] Comment on above: Order Comment: HALEY CTOR TO SPECIFY Result Comment: COLO R OF URINE MAY AFFECT DIPSTICK RESULTS. Performed By: #### L 400.0001 ####[facility] [address] [place], [address] Clarity (U) Cloudy Normal Clear [facility] Comment on above: Order Comment: HALEY CTOR TO SPECIFY Performed By: #### L 400.0001 ####[facility] [address] [place], [address] Color (U) Yellow Normal Yellow [facility] Comment on above: Order Comment: HALEY CTOR TO SPECIFY Performed By: #### L 400.0001 ####[facility] [address] [place], [address] GLUCOSE, UR Normal Normal Normal [facility] Comment on above: Order Comment: HALEY CTOR TO SPECIFY Performed By: #### L 400.0001 ####[facility] [address] [place], [address] KETONE UR Negative Normal Negative [facility] Comment on above: Order Comment: HALEY CTOR TO SPECIFY Performed By: #### L 400.0001 ####[facility] [address] [place], [address] LEUK ESTERASE 500 /ul Abnormal Negative [facility] Comment on above: Order Comment: HALEY CTOR TO SPECIFY Performed By: #### L 400.0001 ####[facility] [address] [place], [address] Nitrite Ql (U) Negative Normal Negative [facility] Comment on above: Order Comment: HALEY CTOR TO SPECIFY Performed By: #### L 400.0001 ####[facility] [address] [place], [address] OCCULT BLOOD-UR 25 /ul Abnormal Negative [facility] Comment on above: Order Comment: HALEY CTOR TO SPECIFY Performed By: #### L 400.0001 ####[facility] [address] [place], [address] pH UR 6.5 Normal 5.0 - 8.0 [facility] Comment on above: Order Comment: HALEY CTOR TO SPECIFY Performed By: #### L 400.0001 ####[facility] [address] [place], [address] PROT DIPSTX 30 mg/dl Abnormal Negative [facility] Comment on above: Order Comment: HALEY CTOR TO SPECIFY Performed By: #### L 400.0001 ####[facility] [address] [place], [address] SP.GR. DIPSTX 1.020 Normal 1.002-1.030 [facility] Comment on above: Order Comment: HALEY CTOR TO SPECIFY Performed By: #### L 400.0001 ####[facility] [address] [place], [address] UROBILI 8 mg/dl Abnormal Normal [facility] Comment on above: Order Comment: HALEY CTOR TO SPECIFY Performed By: #### L 400.0001 ####[facility] [address] [place], [address] Mucus Ql (Urine sed) 0 SEEN Normal [facility] Comment on above: Order Comment: COLLE CTOR TO SPECIFY Performed By: #### L 400.0001 ####[facility] [address] [place], [address] Urine blood detectionOrdered By: Steve Interiano on 04-05-2024 Urine Occult Blood 25 /ul High Negative [facility] Urine clarityOrdered By: Bonilla Interiano on 04-05-2024 Clarity (U) Cloudy Clear [facility] Urine color determinationOrd ered By: Steve Interiano on 04-05-2024 Color (U) Yellow Yellow [facility] Urine leukocyte esterase det ection by dipstickOrdered By: Steve Interiano on 04-05-2024 Leukocyte esterase Test strip Ql (U) 500 /ul High Negative [facility] Urine pHOrdered By: Steve Interiano on 04-05-2024 pH (U) 6.5 [pH] 5.0 - 8.0 [facility] Urine sediment bacteria coun t by microscopy (number/high power field)Ordered By: Steve Interiano on 04-05-2024 Bacteria LM.HPF (Urine sed) [#/Area] 2 /[HPF] None Seen [facility] Urine specific gravity measu rementOrdered By: Steve Interiano on 04-05-2024 Specific gravity (U) [Rel density] 1.020 1.002-1.030 [facility] Urobilinogen Ql (U)Ordered B y: Steve Interiano on 04-05-2024 Urobilinogen (U) [Mass/Vol] 8 mg/dL High Normal [facility] White blood cell (WBC) count Ordered By: Steve Interiano on 04-05-2024 WBC (Bld) [#/Vol] 5.3 10*3/uL 4.4-11.0 [facility] White blood cell countOrdere d By: Steve Interiano on 04-05-2024 Urine WBC >100 SEEN /hpf 0-5 [facility] CNPNon 04-04-2024 CNPN Telephone ([facility]) JIL DÍAZ ([id number]) 1940 F IPA Date Time Provider Department 04/04/24 TONY SOARES During your visit today, we recorded the following information about you: Meme Gant LPN 04/04/2024 3:25 PM Signed Son James called to get pt an apt. Pt has been having some memory issues and hallucinations. Apt booked with provider/team to evaluate. Meme Gant LPN Allergies As of Date: 04/04/2024 Noted Allergy Reaction OXYCODONE 03/11/2017 9 - Itching Date Reviewed: 01/26/2024 Reviewed by: Charmaine Bourgeois LPN - Fully Assessed Reason for Visit: Future Appointment [256] Prescriptions as of 04/04/2024 - atorvastatin (LIPITOR) 20 mg tablet Take 1 tablet by mouth once daily. - famotidine (PEPCID) 40 mg tablet Take 1 tablet by mouth two times a day. - apixaban (ELIQUIS) 5 mg tab(s) Take 5 mg by mouth two times a day. - potassium chloride 20 mEq TbER Take 20 mEq by mouth once daily. - furosemide (LASIX) 40 mg tablet Take 40 mg by mouth once daily. - dilTIAZem CD (CARDIZEM CD, CARTIA XT) 120 mg 24 hr capsule Take 1 capsule by mouth once daily. - losartan (COZAAR) 50 mg tablet Take 1 tablet by mouth once daily. - dorzolamide-timolol (COSOPT) 22.3-6.8 mg/mL ophthalmic solution Use 1 Drop in both eyes twice daily. - brimonidine (ALPHAGAN) 0.2 % ophthalmic solution - gabapentin (NEURONTIN) 300 mg capsule Take 1 tablet morning and bedtime May take one tablet in afternoon as needed for pain Per Dr. Martinez - lidocaine (LIDODERM) 5 % Apply 1 Patch as directed every 12 hours. - latanoprost (XALATAN) 0.005 % ophthalmic solution Use 1 Drop in both eyes once daily. - vit C,J-Bx-zkyqb-lutein-z eaxan (PRESERVISION AREDS-2) 250-90-40-1 mg Take 1 tablet by mouth twice daily at 6AM and 9PM. - BIOTIN ORAL Take 5,000 mg by mouth once daily. - Cholecalciferol, Vitamin D3, 25 mcg (1,000 unit) cap Take 1,000 Units by mouth once daily. - CYANOCOBALAMIN, VITAMIN B-12, (VITAMIN B-12 ORAL) Take 1,000 mg by mouth once daily. Problem List As Of Date 04/04/2024 Noted Resolved Chronic urticaria [L50.8] 05/13/2016 Hypertension [I10] Insomnia [G47.00] Post herpetic neuralgia [B02.29] Heart murmur [R01.1] GERD (gastroesophageal reflux disease) [K21.9] Hyperlipidemia [E78.5] Melanoma (HCC) [C43.9] 09/07/2022 VILLEGAS (dyspnea on exertion) [R06.09] 11/20/2017 Bilateral carotid artery disease (HCC) [I77.9] 11/20/2017 Mitral regurgitation [I34.0] Fall [W19.XXXA] 12/19/2018 Aortic stenosis [I35.0] OAB (overactive bladder) [N32.81] 04/09/2021 Mixed urge and stress incontinence [N39.46] 04/09/2021 Pulmonary arterial hypertension (HCC) [I27.21] 09/07/2022 Chronic kidney disease, stage 3a (HCC) [N18.31] 09/13/2023 Atrial fibrillation (HCC) [I48.91] 04/21/2023 Glaucoma [H40.9] 09/15/2023 Encounter Status:Closed by MEME GANT on 04/04/24 Normal [facility] CNCOon 03-13-2024 CNCO Letter Text Normal [facility] 12 Lead EKGon 03-09-2024 12 Lead EKG [facility] Cardiovascular Services [address] [place] [address] 12 Lead EKG 03/09/24 1517 MR#: [id number] Acct: [id number] Name: JIL DÍAZ Rep #: [id number] : 1940 83 From: Levy Ibarra MD Attending Dr: Status: DEP ER Ordering Dr: Aidan Sparks Date: 03/09/24 Location: ED Sex: F C Admitted: Test Reason : Blood Pressure : */* mmHG Vent. Rate : 73 BPM Atrial Rate : * BPM P-R Int : * ms QRS Dur : 76 ms QT Int : 394 ms P-R-T Axes : * -9 -27 degrees QTcB Int : 434 ms Atrial fibrillation Minimal voltage criteria for LVH, may be normal variant ( R in aVL ) Septal infarct , age undetermined Abnormal ECG Confirmed by LEVY IBARRA MD ([id number]), book or script editor MICHAEL PEÑA ([id number]) on 03/13/2024 9:55:22 AM Referred By: Caleb Stewart Confirmed By: LEVY IBARRA MD 03/13/24 0955 Date Levy Ibarra MD CC: Dr. Bjorn Soares MD; Dr. Caleb Stewart, DO; JEFFERSON Marrero Signed Normal [facility] Brain/Head without Contrasto n 03-09-2024 Brain/Head without Contrast [facility] Imaging Services [address] [place] [address] [id number] Brain/Head without Contrast MR#: [id number] Acct: [id number] Name: JIL DÍAZ Rep #: [id number] : 1940 F 83 From: Janes matthews MD PCP: Dr. Bjorn Soares MD Status: PRE ER Study: Brain/Head without Contrast Date of Exam: 11/23 Exam# [id number] Ordering Dr: Aidan Sparks [id number] STUDY: CT BRAIN WITHOUT CONTRAST REASON FOR EXAM: Female, 83 years old. Head injury due to a fall. No loss of consciousness. The patient is on Eliquis RADIATION DOSAGE (If Supplied By Facility): CTDIvol = ( 44.99 ) mGy, DLP = ( 762.36 ) mGycm TECHNIQUE: Transaxial CT imaging of the brain was performed without administration of intravenous contrast material. Individualized dose optimization techniques were used for this CT. COMPARISON: Comparison is made with prior study January 02, 2024. FINDINGS: Normal soft tissue structures. Normal calvarium. There is mild cerebral atrophy with widening of the extra-axial spaces and ventricular dilatation. There are areas of decreased attenuation within the white matter tracts of the supratentorial brain, consistent with microvascular disease changes. There are small punctate calcifications of the basal ganglia which are seen in the aging brain as a normal variant. Old lacunar infarct in the right basal ganglion. Normal brainstem. Normal cerebellum. There is no intracranial hemorrhage. There are no findings of an acute ischemic infarction. Normal visualized paranasal sinuses. CT/Brain/Head without Contrast IMPRESSION: Chronic involutional changes of the brain. Electronically Signed: Janes Robertson MD at 15:03 EST Reading Location ID and State: [address] [place] [address] , Service support , CC: Dr. Bjorn Soares MD; JEFFERSON Marrero Motel Maid: Signed Normal [facility] Emergency Department Summary on 03-09-2024 Emergency Department Summary [facility] Medical Records Department [address] [place] [address] Emergency Department Summary 03/09/24 MR#: [id number] Acct: [id number] Name: JIL DÍAZ Rep #: [id number] : 1940 83 From: Aidan PAULINO PCP: Dr. Bjorn Soares MD Status:DEP ER Location: ED Patient was seen and examined with physician insurance underwriting assistant Aidan All components of the history and physical confirmed and agreed. History of present illness and physical exam: Patient is a 83-year-old female with a past medical history of atrial fibrillation on Eliquis, hypercholesterolemia, migraine headaches, chronic kidney disease, aortic stenosis who presented to the emergency department with chief complaint of falling down at the [employer] earlier today. She is also is complaining of right wrist pain while trying to catch herself during the fall. She states that she was walking around the corner at the laundromat and noted that she tripped and fell over something on the floor. She states that she did not pass out she remembers entire event. She states that this was witnessed by several people that helped her up and she was able to drive herself here for further evaluation management. She states that she arrived here for further evaluation as she was told by previous physician that she follows and hits her head she needs a CT as she is on Eliquis. Patient has no other complaints at this point time. Review of systems: Constitutional: Denies any headaches, lightness, dizziness, fevers, chills Eyes: Denies change in vision double vision blurry Cardiovascular: Denies chest pain palpitation Respiratory: Denies coughing wheezing shortness of breath Abdomen: Denies abdominal pain nausea vomit diarrhea : Denies any urinary symptoms Neurological: Denies any numbness, wheeze, tingling Musculoskeletal: Complains of right wrist pain as noted above Skin: Denies any rashes or lesions Physical exam: General: Patient lying in bed rest comfortably did not appear to be in any acute distress Head: Atraumatic, normocephalic Eyes: PERRL bilateral, EOMI bilateral, no conjunctival injection noted Neck: Soft, supple, trachea midline, no midline tenderness palpation cervical spine Cardiovascular: Regular rate and rhythm no murmurs gallops rubs noted Respiratory: Clear to auscultation bilaterally no rales rhonchi or wheezes noted Abdomen: Soft, nondistended, nontender to palpation, bowel sounds present x 4 Extremities: +5/5 strength noted in the bilateral lower extremities, radial pulses +2/4 in the bilateral extremities patient was able to oppose her thumb to her pinky bilaterally give me a thumbs up and okay sign t bilaterally. Neurological: Patient is followed commands knew that she was at [facility] year is 2023. Sensation grossly intact. NIH of 0 GCS 15 Musculoskeletal: Patient had no midline tense palpation thoracolumbar spine all other bony prominences and joints taken through full range of motion no pain elicited Skin: Warm, dry, intact no rashes or lesions noted MDM Patient is a 83-year-old female who presents to the emergency department chief complaint of mechanical fall while at the [facility] while on Eliquis. She will have a workup performed here on the differential diagnose includes but limited to intracranial hemorrhage, scaphoid fracture, distal radius fracture. Once workup is obtained reviewed she will be reevaluated. Patient CT head and brain without contrast did not show any acute intracranial hemorrhage. Patient's x-ray of her wrist was reviewed by myself and by radiology which showed no acute fracture dislocations however she does have tenderness to snuffbox and with axial loading of her thumb on that side therefore she was placed in a thumb spica splint and given orthopedic follow-up. She was encouraged to follow-up with her primary care physician and return with worsening symptoms or any concerns. She is agreeable this plan she would like to go home all question concerns answered she is discharged home in stable condition. Final impression: Mechanical fall Right wrist pain History of atrial fibrillation on Eliquis Disposition: Patient will be discharged home in stable condition Supervising attending attestation: Caleb Stewart D.O. HPI HPI - Fall History of Present Illness Chief Complaint: Fall Narrative Narrative: 83-year-old female states just prior to arrival she was at the [facility] and was walking around a corner when she tripped and fell. She struck her head on the ground and injured her right wrist try to catch herself. No loss of consciousness. She states this was witnessed by several people and she was helped up and able to drive herself in for evaluation. She takes Eliquis for A-fib. She denies a headache but states her doctor told her to come in if she hits her head. She has no visua (more content not included)... Normal [facility] Wrist min 3 Viewson 03-09-20 24 Wrist min 3 Views [facility] Imaging Services [address] [place] [address] Wrist min 3 Views MR#: [id number] Acct: [id number] Name: JIL DÍAZ Rep #: [id number] : 1940 F 83 From: Janes matthews MD PCP: Dr. Bjorn Soares MD Status: PRE ER Study: Wrist min 3 Views Date of Exam: 03/09/24 Exam# [id number] Ordering Dr: Aidan Sparks [id number] STUDY: X-RAY - RIGHT WRIST REASON FOR EXAM: Female, 83 years old. Pain following a fall. TECHNIQUE: 3 view(s) of the wrist were obtained. COMPARISON: None. FINDINGS: Normal visualized distal radius and ulna. Normal radiocarpal articulation. Normal distal radioulnar articulation. Normal carpal bones. Normal carpal articulations. Normal carpometacarpal articulation of the thumb. Normal second through fifth carpometacarpal articulations. Normal visualized metacarpal bones. The soft tissue structures are unremarkable. RAD/Wrist min 3 Views IMPRESSION: Normal x-ray examination of the wrist. Electronically Signed: Janes Robertson MD at 15:03 EST , CC: Dr. Bjorn Soares MD; JEFFERSON Marrero Motel Maid: Signed Normal [facility] Urine Cultureon 02-14-2024 [facility] Staphylococcus epidermidis [place] Count 50,000-80,000 Staphylococcus epidermidis: REACTION cefOXitin Susc Islt Clindamycin.induced Susc Islt NEG Gentamicin Islt DAVID <=0.5 S Linezolid Islt DAVID 1 S Nitrofurantoin Islt DAVID <=16 S Oxacillin Susc Islt >=4 R Tetracycline Islt DAVID 2 S Vancomycin Islt DAVID 2 S Normal [facility] Comment on above: Performed By: #### L 100.0100, L500.2500, L501.4020, L501.4690 #### [facility] [address] [place], [address] Urgent Care Visit Reporton 1 Urgent Care Visit Report [facility] [address], [address] [place] [address] OFFICE VISIT Date of Service: 02/12/24 MR#: [id number] Acct: [id number] Name: JIL DÍAZ Rep #: [id number] : 1940 Provider: JEFFERSON Torres Age/Sex: 83/F Location[facility] Status: Signed Intake Vital Signs 01/02/24 17:11 02/12/24 12:42 Height 5 ft 4 in 5 ft 4 in Weight: 131 lb 6.4 oz 139 lb 4 oz BMI 22.5 23.8 BP 120/67 120/80 Respiration 16 Pulse 80 51 L Temp 97.8 F 97.5 F L Temp Source Temporal Oral Pulse Oximetry (%) 98 95 Oxygen Delivery Method room air Intake Visit Reasons: CONCERN FOR UTI Allergies oxycodone (From Percocet) Adverse Reaction (Verified 02/12/24 12:42) Upset Stomach Medications ???Medication ???Instructions ???Recorded ???Confirmed ???Type biotin 10,000 mcg disintegrating 10,000 mcg PO DAILY 05/28/17 02/12/24 History tablet famotidine 40 mg tablet 40 mg PO BID 05/28/17 02/12/24 History atorvastatin 10 mg tablet 10 mg PO QHS cholesterol 10/05/19 02/12/24 History dorzolamide 22.3 mg-timolol 6.8 1 drp EACH EYE BID 12/22/21 02/12/24 History mg/mL eye drops latanoprost 0.005 % eye drops 1 drp EACH EYE DAILY 12/22/21 02/12/24 History brimonidine 0.2 % eye drops 2 drp EACH EYE BID 11/10/22 02/12/24 History cholecalciferol (vitamin D3) 25 2,000 unit PO DAILY supplement 11/10/22 02/12/24 History mcg (1,000 unit) capsule cyanocobalamin (vitamin B-12) 2,000 mcg PO DAILY supplement 11/10/22 02/12/24 History 1,000 mcg tablet gabapentin 300 mg capsule 300 mg PO QHS 11/10/22 02/12/24 History melatonin 5 mg tablet 5 mg PO HS PRN sleep 11/10/22 02/12/24 History Handicap placard #1 ea 04/12/23 02/12/24 Rx apixaban 5 mg tablet (Eliquis) 5 mg PO BID #60 tabs 04/12/23 02/12/24 Rx vitamins A,C,L-onqc-utnmld 4,296 1 cap PO BID eye health 04/12/23 02/12/24 History mcg-226 mg-90 mg capsule furosemide 40 mg tablet (Lasix) 40 mg PO DAILY #90 tabs 04/13/23 02/12/24 Rx potassium chloride 20 mEq 20 meq PO BID #90 tabs 06/01/23 02/12/24 Rx tablet,extended release diltiazem HCl 120 mg 120 mg PO BID heart #90 caps 06/23/23 02/12/24 Rx capsule,extended release 24 hr losartan 25 mg tablet 25 mg PO DAILY #90 tabs 06/23/23 02/12/24 Rx sucralfate 1 gram tablet 1 g PO ONCE #30 tabs 02/04/24 02/12/24 Rx cephalexin 250 mg capsule 250 mg PO Q6H 7 days #28 caps 02/12/24 02/12/24 Rx Have you fallen in the past year?: No PFSH Medical History Dyspnea on exertion Wears glasses Cancer Ambulates with cane Bladder disease History of renal disease High cholesterol Easy bruising Migraine headache Injury of head and neck Former smoker Leg cramps History of edema History of stress test History of echocardiogram Cardiology follow-up encounter Shortness of breath on exertion LLQ abdominal pain CKD (chronic kidney disease) stage 3, GFR 30-59 ml/min Heart murmur Concussion Chronic urticaria Basal cell carcinoma Aortic stenosis Nonrheumatic mitral (valve) insufficiency Nonrheumatic aortic (valve) insufficiency Secondary pulmonary arterial hypertension Hyperlipidemia Seasonal allergies Anemia Glaucoma GERD (gastroesophageal reflux disease) Essential (primary) hypertension Premature atrial contractions History of shingles History of basal cell cancer History of rectocele History of melanoma Surgical History Hx of colonoscopy History of bilateral cataract extraction History of hemorrhoidectomy History of repair of right rotator cuff History of laparoscopy History of appendectomy History of hysterectomy Family History Mother Anemia Hypertension Brother Hypertension Grandfather Cancer Social History Smoking Status: Former smoker Tobacco: How many years used: 25 how long ago did patient quit smokin alcohol intake: never substance use type: does not use what type of physical activity do you participate in: none HPI HPI Details: JIL DÍAZ, is a 83 F who presents to the office today for UTI. Patient states she has burning with urination and this has been going on for a couple days. Patient notes a past medical history consistent with recurrent UTIs. Patient denies symptoms of fever, chills, low back pain, nausea, and vomiting. Patient denies treatment for this issue at this time. ROS Const Constitutional: No body ache, chills, fatigue or fever(s) Gastro GI: Positive for abdominal pain; No change in bowel habits, diarrhea or vomiting Genitourinary-Female: Positive for painful urination, urinary freque (more content not included)... Normal [facility] Gastroenterology Visit Repor ton 02-04-2024 Gastroenterology Visit Report [facility] Gastroenterology [address] [place] [address] OFFICE VISIT Date of Service: 02/04/24 MR#: [id number] Acct: [id number] Name: JIL DÍAZ Rep #: [id number] : 1940 Provider: Stan Ng DO Age/Sex: 83/F [place] [facility] [place] Status: Signed Intake Vital Signs 02/17/23 07:19 08/25/23 15:08 09/23/23 12:54 11/28/23 07:09 01/02/24 17:11 Height 5 ft 4 in 5 ft 4 in 5 ft 4 in 5 ft 4.17 in 5 ft 4 in Intake Visit Reasons: 6 MO FU Allergies oxycodone (From Percocet) Adverse Reaction (Verified 01/02/24 17:11) Upset Stomach Medications ???Medication ???Instructions ???Recorded ???Confirmed ???Type biotin 10,000 mcg disintegrating 10,000 mcg PO DAILY 05/28/17 02/04/24 History tablet famotidine 40 mg tablet 40 mg PO BID 05/28/17 02/04/24 History atorvastatin 10 mg tablet 10 mg PO QHS cholesterol 10/05/19 02/04/24 History dorzolamide 22.3 mg-timolol 6.8 1 drp EACH EYE BID 12/22/21 02/04/24 History mg/mL eye drops latanoprost 0.005 % eye drops 1 drp EACH EYE DAILY 12/22/21 02/04/24 History brimonidine 0.2 % eye drops 2 drp EACH EYE BID 11/10/22 02/04/24 History cholecalciferol (vitamin D3) 25 2,000 unit PO DAILY supplement 11/10/22 02/04/24 History mcg (1,000 unit) capsule cyanocobalamin (vitamin B-12) 2,000 mcg PO DAILY supplement 11/10/22 02/04/24 History 1,000 mcg tablet gabapentin 300 mg capsule 300 mg PO QHS 11/10/22 02/04/24 History melatonin 5 mg tablet 5 mg PO HS PRN sleep 11/10/22 02/04/24 History Handicap placard #1 ea 04/12/23 02/04/24 Rx apixaban 5 mg tablet (Eliquis) 5 mg PO BID #60 tabs 04/12/23 02/04/24 Rx vitamins A,C,E-xjxd-tmekpj 4,296 1 cap PO BID eye health 04/12/23 02/04/24 History mcg-226 mg-90 mg capsule furosemide 40 mg tablet (Lasix) 40 mg PO DAILY #90 tabs 04/13/23 02/04/24 Rx potassium chloride 20 mEq 20 meq PO BID #90 tabs 06/01/23 02/04/24 Rx tablet,extended release diltiazem HCl 120 mg 120 mg PO BID heart #90 caps 06/23/23 02/04/24 Rx capsule,extended release 24 hr losartan 25 mg tablet 25 mg PO DAILY #90 tabs 06/23/23 02/04/24 Rx sucralfate 1 gram tablet 1 g PO ONCE #30 tabs 02/04/24 02/04/24 Rx Have you fallen in the past year?: No PFSH Medical History Dyspnea on exertion Wears glasses Cancer Ambulates with cane Bladder disease History of renal disease High cholesterol Easy bruising Migraine headache Injury of head and neck Former smoker Leg cramps History of edema History of stress test History of echocardiogram Cardiology follow-up encounter Shortness of breath on exertion LLQ abdominal pain CKD (chronic kidney disease) stage 3, GFR 30-59 ml/min Heart murmur Concussion Chronic urticaria Basal cell carcinoma Aortic stenosis Nonrheumatic mitral (valve) insufficiency Nonrheumatic aortic (valve) insufficiency Secondary pulmonary arterial hypertension Hyperlipidemia Seasonal allergies Anemia Glaucoma GERD (gastroesophageal reflux disease) Essential (primary) hypertension Premature atrial contractions History of shingles History of basal cell cancer History of rectocele History of melanoma Surgical History Hx of colonoscopy History of bilateral cataract extraction History of hemorrhoidectomy History of repair of right rotator cuff History of laparoscopy History of appendectomy History of hysterectomy Family History Mother Anemia Hypertension Brother Hypertension Grandfather Cancer Social History Smoking Status: Former smoker Tobacco: How many years used: 25 how long ago did patient quit smokin alcohol intake: never substance use type: does not use what type of physical activity do you participate in: none HPI HPI Details: JIL DÍAZ, is a 83 F who presents to the office today for follow up. PCP OV 5.8.23 as 6m f/u with LLQ abdominal pain 2-3 days/week and mildly elevated inflammatory markers; normal CT. GERD well managed with Pepcid. Additional history glaucoma, heart murmur, mitral regurgitation, hyperlipidemia, HTN, insomnia, CKD III. ? Biochemical CBC, CMP, LFT, lipase without pertinent abnormality. ? ESR H26, CRP H1, Triglycerides H192, LDL H38 ? CT abd/pel 08.20.22 s/p cholecystectomy; renal lesions/cysts. *BGI 10.20.22 with LLQ abdominal pain for the last several months presenting intermittently, initially a minor pain and worsened in severity. BM occur each day without difficulty; eat six prunes each morning for m (more content not included)... Normal [facility] 01-27-2024 [facility] Telephone ([employer] JIL DÍAZ ([id number]) 1940 F Date Time Provider Department 01/27/24 TONY SOARES [facility] During your visit today, we recorded the following information about you: Beatriz Isaac LPN 01/27/2024 11:36 AM Signed ----- Message from Tony Soares MD sent at 01/27/2024 8:37 AM EDT ----- Xray of the hips shows mild arthritis changes without fractures or dislocation. Lower back xray shows moderate to severe arthritis and degenerative disc disease as well as some scoliosis without fracture. Recommend she continue with treatment as discussed. If symptoms worsening, would obtain MRI of her lower back for further workup. Beatriz Isaac LPN 01/27/2024 11:38 AM Signed Phoned patient and reviewed results and recommendations with her. Patient voiced understanding. Beatriz Isaac LPN Allergies As of Date: 01/27/2024 Noted Allergy Reaction OXYCODONE 03/11/2017 9 - Itching Date Reviewed: 01/26/2024 Reviewed by: Charmaine Bourgeois LPN - Fully Assessed Reason for Visit: Results [95] Prescriptions as of 01/27/2024 - atorvastatin (LIPITOR) 20 mg tablet Take 1 tablet by mouth once daily. - famotidine (PEPCID) 40 mg tablet Take 1 tablet by mouth two times a day. - apixaban (ELIQUIS) 5 mg tab(s) Take 5 mg by mouth two times a day. - potassium chloride 20 mEq TbER Take 20 mEq by mouth once daily. - furosemide (LASIX) 40 mg tablet Take 40 mg by mouth once daily. - dilTIAZem CD (CARDIZEM CD, CARTIA XT) 120 mg 24 hr capsule Take 1 capsule by mouth once daily. - losartan (COZAAR) 50 mg tablet Take 1 tablet by mouth once daily. - dorzolamide-timolol (COSOPT) 22.3-6.8 mg/mL ophthalmic solution Use 1 Drop in both eyes twice daily. - brimonidine (ALPHAGAN) 0.2 % ophthalmic solution - gabapentin (NEURONTIN) 300 mg capsule Take 1 tablet morning and bedtime May take one tablet in afternoon as needed for pain Per Dr. Martinez - lidocaine (LIDODERM) 5 % Apply 1 Patch as directed every 12 hours. - latanoprost (XALATAN) 0.005 % ophthalmic solution Use 1 Drop in both eyes once daily. - vit C,W-Mc-kyttv-lutein-z eaxan (PRESERVISION AREDS-2) 250-90-40-1 mg Take 1 tablet by mouth twice daily at 6AM and 9PM. - BIOTIN ORAL Take 5,000 mg by mouth once daily. - Cholecalciferol, Vitamin D3, 25 mcg (1,000 unit) cap Take 1,000 Units by mouth once daily. - CYANOCOBALAMIN, VITAMIN B-12, (VITAMIN B-12 ORAL) Take 1,000 mg by mouth once daily. Problem List As Of Date 01/27/2024 Noted Resolved Chronic urticaria [L50.8] 05/13/2016 Hypertension [I10] Insomnia [G47.00] Post herpetic neuralgia [B02.29] Heart murmur [R01.1] GERD (gastroesophageal reflux disease) [K21.9] Hyperlipidemia [E78.5] Melanoma (HCC) [C43.9] 09/07/2022 VILLEGAS (dyspnea on exertion) [R06.09] 11/20/2017 Bilateral carotid artery disease (HCC) [I77.9] 11/20/2017 Mitral regurgitation [I34.0] Fall [W19.XXXA] 12/19/2018 Aortic stenosis [I35.0] OAB (overactive bladder) [N32.81] 04/09/2021 Mixed urge and stress incontinence [N39.46] 04/09/2021 Pulmonary arterial hypertension (HCC) [I27.21] 09/07/2022 Chronic kidney disease, stage 3a (HCC) [N18.31] 09/13/2023 Atrial fibrillation (HCC) [I48.91] 04/21/2023 Glaucoma [H40.9] 09/15/2023 Encounter Status:Closed by EBATRIZ ISAAC on 01/27/24 [facility] CNOVon 01-26-2024 CNOV Office Visit (FAMPWS ) JIL DÍAZ ([id number]) 1940 F Date Time Provider Department 01/26/24 11:00 AM TONY SOARES FAMPWS During your visit today, we recorded the following information about you: Pulse Respiration Blood pressure Weight 77/minute 12/minute 112/60 64 kg Height 1.626 m Tony Soares MD 01/26/2024 1:23 PM Signed Chief Complaint Patient presents with: Follow Up: ER follow up -hit head today c/o left hip pain HPI Jil Díaz is a 83 year old female who presents here today for ER Follow Up.. Patient evluated at [facility] ED on 01/01 for complaint of head injury on Eliquis. 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 Denied neck pain. Did have mild headache. Workup in the ER with CT brain was negative for hemorrhage or other acute process. Discharged home and recommended f/u with our office. Since discharge, patient has not had any recurrent falls and her headache has resolved. Denies pain in her neck or back from the fall. Using cane for ambulation outside of her home or if unstable inside her home. Patient was referred to PT earlier this year for gait instability which she thinks did help and would be willing to return for more exercises and treatment. Also complaining of left hip pain which started in the last week without new fall or injury. Located over posterior hip and lower back with radiation to her mid thigh. Described intermittent dull pain, currently 6/10. Exacerbated with going from sitting to standing. Treating with heating pad and lidocaine with some improvement in symptoms.Denies fever/chills, bruising, erythema, swelling, new loss of bowel/bladder control, saddle anesthesia, LE weakness. Past medical history, appointments, medications, allergies reviewed. Previous Medical History PAST MEDICAL HISTORY Diagnosis Date Aortic stenosis moderate Atrial fibrillation (HCC) 04/21/2023 Basal cell carcinoma Cataracts, bilateral s/p removal Chronic kidney disease (CKD), stage III (moderate) (HCC) Chronic urticaria seeing Dr. Card Concussion 05/2015 fell off step stool COVID-19 GERD (gastroesophageal reflux disease) with esophagitis on EGD Glaucoma Hamstring strain bilateral legs Heart murmur History of shingles 2015 Hyperlipidemia Hypertension Insomnia Macular degeneration Melanoma (HCC) Mitral regurgitation Dr. Ibarra Post herpetic neuralgia lidocaine patch Premature contractions, atrial PUD (peptic ulcer disease) 01/2023 Renal cysts, acquired, bilateral Previous Surgical History PAST SURGICAL HISTORY Procedure Laterality Date APPENDECTOMY 1970 CATARACT EXTRACTION HX Bilateral 2012 CATARACT SURGERY, COMPLEX Bilateral R 10/2012-L 12/2012 CHOLECYSTECTOMY 2002 COLONOSCOPY 12/11/2015 10mm adenomatous polyp found, repeat in 3 years COLONOSCOPY FLX DX W/COLLJ SPEC WHEN PFRMD 02/15/2019 Colonoscopy. repeat in 5 years. EGD 12/11/2015 post gastric ulcer deformity noted in pre-pyloric region and antrum. ESOPHAGOGASTRODUODENO SCOPY TRANSORAL DIAGNOSTIC 02/15/2019 EGD HEMORRHOIDECTOMY 2010 MELANOMA [...] on File Prior to Visit Medication Sig atorvastatin (LIPITOR) 20 mg tablet Take 1 tablet by mouth once daily. famotidine (PEPCID) 40 mg tablet Take 1 tablet by mouth two times a day. apixaban (ELIQUIS) 5 mg tab(s) Take 5 mg by mouth two times a day. potassium chloride 20 mEq TbER Take 20 mEq by mouth once daily. furosemide (LASIX) 40 mg tablet Take 40 mg by mouth once daily. dilTIAZem CD (CARDIZEM CD, CARTIA XT) 120 mg 24 hr capsule Take 1 capsule by mouth once daily. losartan (COZAAR) 50 mg tablet Take 1 [...] Drop in both eyes once daily. vit C,J-Mn-urpkd-lutein-z eaxan (PRESERVISION AREDS-2) 250-90-40-1 mg Take 1 tablet by mouth tw (more content not included)... Normal [facility] No Panel InformationOrdered By: [facility] Provider on 01-26-2024 [facility] No Panel Informationon 01-25 Radiology Study observation (narrative) [facility] XR HIP 3V PELV+ AP/LAT LTon 01-26-2024 XR HIP 3V PELV+ AP/LAT LT * * *Final Rep ort* * * DATE OF EXAM: Jan 26 2024 12:22PM WOX [id number] - XR HIP 3V PELV+ AP/LAT LT / PROCEDURE REASON: Left hip pain * * * * Physician Interpretation * * * * Examination: XR LUMBAR 3V AP/LAT/L5-S1, XR HIP 3V PELV+ AP/LAT LT History: Acute left-sided low back pain with left-sided sciatica Technique: XR LUMBAR 3V AP/LAT/L5-S1, XR HIP 3V PELV+ AP/LAT LT Comparison: 09/19/[address] scans of the abdomen and pelvis dated 08/20/2022 RESULT: 5 nonrib-bearing lumbar type vertebrae. For numbering purposes, L4-5 is at the level of the iliac crest. Grade 1 spondylolisthesis of L5 on S1. Multilevel moderate to severe disc space narrowing from L1 through L5. Degenerative change involving the posterior elements from L3 through S1. No fracture or focal bony abnormality. Vascular calcifications are seen. Levoscoliosis of 20 degrees as measured from inferior L2 superior L5 AP pelvis and coned-down views of the left hip reveal mild degenerative change. Mild joint space narrowing. No fracture or focal bony abnormality. Diffuse osteopenia. Vascular calcifications. SI joints are unremarkable IMPRESSION: LUMBAR DEGENERATIVE CHANGE AND SCOLIOSIS DESCRIBED. MILD PROGRESSION FROM PREVIOUS. MILD DEGENERATIVE CHANGE INVOLVING THE HIPS BILATERALLY. OSTEOPENIA Motel Maid: PSCB Transcribe Date/Time: Jan 26 2024 4:12P Dictated by : MELLY HENNESSY MD This examination was interpreted and the report reviewed and electronically signed by: MELLY HENNESSY MD on Jan 26 2024 4:16PM EST [id number] Normal [facility] XR LUMBAR 3V AP/LAT/L5-S1on 01-26-2024 XR LUMBAR 3V AP/LAT/L5-S1 * * *Final Rep ort* * * DATE OF EXAM: Jan 26 2024 12:22PM WOX [id number] - XR LUMBAR 3V AP/LAT/L5-S1 / PROCEDURE REASON: Acute left-sided low back pain with left-sided sciatica * * * * Physician Interpretation * * * * Examination: XR LUMBAR 3V AP/LAT/L5-S1, XR HIP 3V PELV+ AP/LAT LT History: Acute left-sided low back pain with left-sided sciatica Technique: XR LUMBAR 3V AP/LAT/L5-S1, XR HIP 3V PELV+ AP/LAT LT Comparison: 09/19/[address] scans of the abdomen and pelvis dated 08/20/2022 RESULT: 5 nonrib-bearing lumbar type vertebrae. For numbering purposes, L4-5 is at the level of the iliac crest. Grade 1 spondylolisthesis of L5 on S1. Multilevel moderate to severe disc space narrowing from L1 through L5. Degenerative change involving the posterior elements from L3 through S1. No fracture or focal bony abnormality. Vascular calcifications are seen. Levoscoliosis of 20 degrees as measured from inferior L2 superior L5 AP pelvis and coned-down views of the left hip reveal mild degenerative change. Mild joint space narrowing. No fracture or focal bony abnormality. Diffuse osteopenia. Vascular calcifications. SI joints are unremarkable IMPRESSION: LUMBAR DEGENERATIVE CHANGE AND SCOLIOSIS DESCRIBED. MILD PROGRESSION FROM PREVIOUS. MILD DEGENERATIVE CHANGE INVOLVING THE HIPS BILATERALLY. OSTEOPENIA Motel Maid: MAYITO Transcribe Date/Time: Jan 26 2024 4:12P Dictated by : MELLY HENNESSY MD This examination was interpreted and the report reviewed and electronically signed by: MELLY HENNESSY MD on Jan 26 2024 4:16PM EST [id number] Normal [facility] XR Lumbar spine 3 Viewson * * *Final Report* * * DATE OF EXAM: Jan 26 2024 12:22PM WOX [id number] - XR LUMBAR 3V AP/LAT/L5-S1 / PROCEDURE REASON: Acute left-sided low back pain with left-sided sciatica * * * * Physician Interpretation * * * * Examination: XR LUMBAR 3V AP/LAT/L5-S1, XR HIP 3V PELV+ AP/LAT LT History: Acute left-sided low back pain with left-sided sciatica Technique: XR LUMBAR 3V AP/LAT/L5-S1, XR HIP 3V PELV+ AP/LAT LT Comparison: 09/19/[address] scans of the abdomen and pelvis dated 08/20/2022 RESULT: 5 nonrib-bearing lumbar type vertebrae. For numbering purposes, L4-5 is at the level of the iliac crest. Grade 1 spondylolisthesis of L5 on S1. Multilevel moderate to severe disc space narrowing from L1 through L5. Degenerative change involving the posterior elements from L3 through S1. No fracture or focal bony abnormality. Vascular calcifications are seen. Levoscoliosis of 20 degrees as measured from inferior L2 superior L5 AP pelvis and coned-down views of the left hip reveal mild degenerative change. Mild joint space narrowing. No fracture or focal bony abnormality. Diffuse osteopenia. Vascular calcifications. SI joints are unremarkable DIVISION OF RADIOLOGY Provider, Francy montoya [place] - 01/26/2024 * * *Final Report* * * DATE OF EXAM: Jan 26 2024 12:22PM WOX [id number] - XR LUMBAR 3V AP/LAT/L5-S1 / PROCEDURE REASON: Acute left-sided low back pain with left-sided sciatica * * * * Physician Interpretation * * * * Examination: XR LUMBAR 3V AP/LAT/L5-S1, XR HIP 3V PELV+ AP/LAT LT History: Acute left-sided low back pain with left-sided sciatica Technique: XR LUMBAR 3V AP/LAT/L5-S1, XR HIP 3V PELV+ AP/LAT LT Comparison: 09/19/[address] scans of the abdomen and pelvis dated 08/20/2022 RESULT: 5 nonrib-bearing lumbar type vertebrae. For numbering purposes, L4-5 is at the level of the iliac crest. Grade 1 spondylolisthesis of L5 on S1. Multilevel moderate to severe disc space narrowing from L1 through L5. Degenerative change involving the posterior elements from L3 through S1. No fracture or focal bony abnormality. Vascular calcifications are seen. Levoscoliosis of 20 degrees as measured from inferior L2 superior L5 AP pelvis and coned-down views of the left hip reveal mild degenerative change. Mild joint space narrowing. No fracture or focal bony abnormality. Diffuse osteopenia. Vascular calcifications. SI joints are unremarkable IMPRESSION IMPRESSION: LUMBAR DEGENERATIVE CHANGE AND SCOLIOSIS DESCRIBED. MILD PROGRESSION FROM PREVIOUS. MILD DEGENERATIVE CHANGE INVOLVING THE HIPS BILATERALLY. OSTEOPENIA Motel Maid: PSCB Transcribe Date/Time: Jan 26 2024 4:12P Dictated by : MELLY HENNESSY MD This examination was interpreted and the report reviewed and electronically signed by: MELLY HENNESSY MD on Jan 26 2024 4:16PM [facility] XR Pelvis and Hip - left AP and Lateral frogon 01-26-2024 * * *Final Report* * * DATE OF EXAM: Jan 26 2024 12:22PM WOX [id number] - XR HIP 3V PELV+ AP/LAT LT / PROCEDURE REASON: Left hip pain * * * * Physician Interpretation * * * * Examination: XR LUMBAR 3V AP/LAT/L5-S1, XR HIP 3V PELV+ AP/LAT LT History: Acute left-sided low back pain with left-sided sciatica Technique: XR LUMBAR 3V AP/LAT/L5-S1, XR HIP 3V PELV+ AP/LAT LT Comparison: 09/19/[address] scans of the abdomen and pelvis dated 08/20/2022 RESULT: 5 nonrib-bearing lumbar type vertebrae. For numbering purposes, L4-5 is at the level of the iliac crest. Grade 1 spondylolisthesis of L5 on S1. Multilevel moderate to severe disc space narrowing from L1 through L5. Degenerative change involving the posterior elements from L3 through S1. No fracture or focal bony abnormality. Vascular calcifications are seen. Levoscoliosis of 20 degrees as measured from inferior L2 superior L5 AP pelvis and coned-down views of the left hip reveal mild degenerative change. Mild joint space narrowing. No fracture or focal bony abnormality. Diffuse osteopenia. Vascular calcifications. SI joints are unremarkable DIVISION OF RADIOLOGY Provider, [facility] - 01/26/2024 * * *Final Report* * * DATE OF EXAM: Jan 26 2024 12:22PM WOX [id number] - XR HIP 3V PELV+ AP/LAT LT / PROCEDURE REASON: Left hip pain * * * * Physician Interpretation * * * * Examination: XR LUMBAR 3V AP/LAT/L5-S1, XR HIP 3V PELV+ AP/LAT LT History: Acute left-sided low back pain with left-sided sciatica Technique: XR LUMBAR 3V AP/LAT/L5-S1, XR HIP 3V PELV+ AP/LAT LT Comparison: 09/19/[address] scans of the abdomen and pelvis dated 08/20/2022 RESULT: 5 nonrib-bearing lumbar type vertebrae. For numbering purposes, L4-5 is at the level of the iliac crest. Grade 1 spondylolisthesis of L5 on S1. Multilevel moderate to severe disc space narrowing from L1 through L5. Degenerative change involving the posterior elements from L3 through S1. No fracture or focal bony abnormality. Vascular calcifications are seen. Levoscoliosis of 20 degrees as measured from inferior L2 superior L5 AP pelvis and coned-down views of the left hip reveal mild degenerative change. Mild joint space narrowing. No fracture or focal bony abnormality. Diffuse osteopenia. Vascular calcifications. SI joints are unremarkable IMPRESSION IMPRESSION: LUMBAR DEGENERATIVE CHANGE AND SCOLIOSIS DESCRIBED. MILD PROGRESSION FROM PREVIOUS. MILD DEGENERATIVE CHANGE INVOLVING THE HIPS BILATERALLY. OSTEOPENIA Motel Maid: PSCB Transcribe Date/Time: Jan 26 2024 4:12P Dictated by : MELLY HENNESSY MD This examination was interpreted and the report reviewed and electronically signed by: MELLY HENNESSY MD on Jan 26 2024 4:16PM EST [facility] Brain/Head without Contrasto n 01-02-2024 Brain/Head without Contrast [facility] Imaging Services [address] [place] [id number] Brain/Head without Contrast MR#: [id number] Acct: [id number] Name: JIL DÍAZ Rep #: [id number] : 1940 F 83 From: Farzaneh Henry PCP: Dr. Bjorn Soares MD Status: REG ER Study: Brain/Head without Contrast Date of Exam: 05/26 Exam# [id number] Ordering Dr: Omar Bush DO [id number] INDICATION: injury on Eliquis EXAMINATION: CT BRAIN - CT Head or Brain W/O Contrast Injection TECHNIQUE: Multiple axial images were obtained of the head without intravenous contrast. The protocol utilizes one or more of the following dose reduction techniques: automated exposure control, adjustment of mA and/or kV according to patient size,and/or use of iterative reconstruction technique. IV Contrast dosage and agent: None. RADIATION DOSAGE (If Supplied By Facility): CTDIvol = ( 44.99 ) mGy, DLP = ( 796.11 ) mGycm COMPARISON: CT head 11/28/2023 __ FINDINGS: BRAIN: No acute bleed. No edema. Old lacunar infarct right basal ganglia. Mild decreased attenuation in the periventricular white matter bilaterally. Hammer-white matter differentiation is maintained. Arterial calcifications. VENTRICLES AND SULCI: The ventricles are not dilated. The sulci are prominent. EXTRA-AXIAL: No hemorrhage, fluid collection, or mass. CALVARIUM / SKULL BASE: Unremarkable. FACE/SINUSES: Unremarkable. SOFT TISSUES: Unremarkable. CT/Brain/Head without Contrast IMPRESSION: No acute abnormality. Chronic microvascular ischemic disease. Electronically Signed: Farzaneh Khan MD at 18:54 EDT , CC: Dr. Bjorn Soares MD; Dr. Omar Bush DO Motel Maid: Signed [facility] Emergency Department Summary on 01-02-2024 Emergency Department Summary [facility] Medical Records Department [address] [place] [address] Emergency Department Summary 01/02/24 MR#: [id number] Acct: [id number] Name: JIL DÍAZ Rep #: [id number] : 1940 83 From: Omar Bush DO PCP: Dr. Bjorn Soares MD Status:DEP ER Location: ED HPI History of Present Illness Chief Complaint: Head Injury Informant: patient Narrative Narrative: 83-year-old female presenting to the emergency room chief complaint of head injury. Patient states that she is on apixaban for atrial fibrillation. She bent over to get a water for dinner she fell forward striking her head on the wall. No reported loss of consciousness. No change in chronic neck pain. She denies any vomiting. No neurologic symptoms. She notes very mild headache [facility] Medical History Dyspnea on exertion Wears glasses Cancer Ambulates with cane Bladder disease History of renal disease High cholesterol Easy bruising Migraine headache Injury of head and neck Former smoker Leg cramps History of edema History of stress test History of echocardiogram Cardiology follow-up encounter Shortness of breath on exertion LLQ abdominal pain CKD (chronic kidney disease) stage 3, GFR 30-59 ml/min Heart murmur Concussion Chronic urticaria Basal cell carcinoma Aortic stenosis Nonrheumatic mitral (valve) insufficiency Nonrheumatic aortic (valve) insufficiency Secondary pulmonary arterial hypertension Hyperlipidemia Seasonal allergies Anemia Glaucoma GERD (gastroesophageal reflux disease) Essential (primary) hypertension Premature atrial contractions History of shingles History of basal cell cancer History of rectocele History of melanoma Home Medications ???Medication ???Instructions ???Recorded ???Last Taken ???Type biotin 10,000 mcg disintegrating 10,000 mcg PO DAILY 05/28/17 06/03/20 History tablet famotidine 40 mg tablet 40 mg PO BID 05/28/17 06/03/20 History atorvastatin 10 mg tablet 10 mg PO QHS cholesterol 10/05/19 06/02/20 History dorzolamide 22.3 mg-timolol 6.8 1 drp EACH EYE BID 12/22/21 Unknown History mg/mL eye drops latanoprost 0.005 % eye drops 1 drp EACH EYE DAILY 12/22/21 Unknown History brimonidine 0.2 % eye drops 2 drp EACH EYE BID 11/10/22 Unknown History cholecalciferol (vitamin D3) 25 2,000 unit PO DAILY supplement 11/10/22 Unknown History mcg (1,000 unit) capsule cyanocobalamin (vitamin B-12) 2,000 mcg PO DAILY supplement 11/10/22 Unknown History 1,000 mcg tablet gabapentin 300 mg capsule 300 mg PO QHS 11/10/22 Unknown History melatonin 5 mg tablet 5 mg PO HS PRN sleep 11/10/22 Unknown History Handicap placard #1 ea 04/12/23 Unknown Rx apixaban 5 mg tablet (Eliquis) 5 mg PO BID #60 tabs 04/12/23 Unknown Rx vitamins A,C,H-rzjk-wfzbrg 4,296 1 cap PO BID eye health 04/12/23 Unknown History mcg-226 mg-90 mg capsule furosemide 40 mg tablet (Lasix) 40 mg PO DAILY #90 tabs 04/13/23 Unknown Rx potassium chloride 20 mEq 20 meq PO BID #90 tabs 06/01/23 Unknown Rx tablet,extended release diltiazem HCl 120 mg 120 mg PO BID heart #90 caps 06/23/23 Unknown Rx capsule,extended release 24 hr losartan 25 mg tablet 25 mg PO DAILY #90 tabs 06/23/23 Unknown Rx ciprofloxacin HCl 500 mg tablet 500 mg PO BID #10 tabs 08/25/23 Unknown Rx Allergy/AdvReac Type Severity Reaction Status Date / Time oxycodone (From Percocet) AdvReac Upset Verified 01/02/24 17:11 Stomach Family History Mother Anemia Hypertension Brother Hypertension Grandfather Cancer Surgical History Hx of colonoscopy History of bilateral cataract extraction History of hemorrhoidectomy History of repair of right rotator cuff History of laparoscopy History of appendectomy History of hysterectomy Social History Smoking Status: Former smoker Tobacco: How many years used: 25 how long ago did patient quit smokin alcohol intake: never substance use type: does not use what type of physical activity do you participate in: none ROS ROS ED Constitutional Constitutional ED: Denies chills or weight loss Eyes Eyes: Denies change in vision or diplopia ENT ENT ED: Denies ear pain, rhinorrhea or sore throat Cardiovascular Cardiovascular: Denies chest pain, orthopnea, palpitations or racing heartbeat Respiratory/Chest Respiratory/Chest: Denies cough, dyspnea or orthopnea Gastrointestinal Gastrointestinal: Denies abdominal pain, diarrhea, nausea or vomiting Genitourinary Genitourinary ED: Denies dysuria, hematuria or urinary frequency Musculoskeletal Musculoskeletal: Reports o (more content not included)... [facility] CBC W Auto Differential pane l (Bld)on 11-30-2023 Basophils (Bld) [#/Vol] 0.05 10*3/uL [facility] Basophils/100 WBC (Bld) 1.2 % C [facility] Differential cell count method Nom (Bld) Auto [facility] Eosinophils (Bld) [#/Vol] [facility] Eosinophils/100 WBC (Bld) 0.2 % [facility] Erythrocyte distribution width (RBC) [Ratio] 14.6 % 11.5 - 15.0 % [facility] Hematocrit (Bld) [Volume fraction] 38.6 % 36.0 - 46.0 % [facility] Hemoglobin (Bld) [Mass/Vol] 12.1 g/dL 11.5 - 15.5 g/dL [facility] Immature granulocytes (Bld) [#/Vol] [facility] Immature granulocytes/100 WBC (Bld) 0.2 % [facility] Lymphocytes (Bld) [#/Vol] 1.27 10*3/uL [facility] Lymphocytes/100 WBC (Bld) 31.2 % [facility] MCH (RBC) [Entitic mass] 28.9 pg 26. 0 - 34.0 pg [facility] MCHC (RBC) [Mass/Vol] 31.3 g/dL 30.5 - 36.0 g/dL [facility] MCV (RBC) [Entitic vol] 92.3 fL 80.0 - 100.0 fL [facility] Monocytes (Bld) [#/Vol] 0.44 10*3/uL [facility] Monocytes/100 WBC (Bld) 10.8 % [facility] Neutrophils (Bld) [#/Vol] 2.29 10*3/uL [facility] Neutrophils/100 WBC (Bld) 56.4 % [facility] Nucleated RBC (Bld) [#/Vol] [facility] Nucleated RBC/100 WBC (Bld) [Ratio] 0.0 % /100 WBC [facility] Platelet mean volume (Bld) [Entitic vol] 9.6 fL 9.0 - 12.7 fL [facility] Platelets (Bld) [#/Vol] 245 10*3/uL [facility] RBC (Bld) [#/Vol] 4.18 10*6/uL 3.90 - 5.2 0 m/uL [facility] WBC (Bld) [#/Vol] 4.07 10*3/uL [facility] Comprehensive metabolic 2000 panelOrdered By: Drea Orosco on 11-30-2023 Albumin [Mass/Vol] 3.9 g/dL 3.9 - 4.9 g/dL [facility] ALP [Catalytic activity/Vol] 123 U/L 34 - 123 U/L [facility] ALT [Catalytic activity/Vol] 20 U/L 7 - 38 U/L [facility] Anion gap [Moles/Vol] 10 mmol/L 8 - 15 mmol/L [facility] AST [Catalytic activity/Vol] 19 U/L 13 - 35 U/L [facility] Bilirubin [Mass/Vol] 0.4 mg/dL 0.2 - 1 .3 mg/dL [facility] Calcium [Mass/Vol] 8.6 mg/dL 8.5 - 10. 2 mg/dL [facility] Chloride [Moles/Vol] 105 mmol/L 98 - 10 7 mmol/L [facility] CO2 [Moles/Vol] 23 mmol/L 22 - 30 mmol/L [facility] Creatinine [Mass/Vol] 1.32 mg/dL High 0.58 - 0.96 mg/dL [facility] GFR/1.73 sq M.predicted among non-blacks MDRD (S/P/Bld) [Vol rate/Area] 40 mL/min/{1.73_m2} Low - PINF Cl [facility] Comment on above: Estimated Glomerular Filtration Rate (eGFR) is calculated using the 2020 CKD-EPI creatinine equation. This equation utilizes serum creatinine, sex, and age as parameters. The creatinine assay has traceable calibration to isotope dilution-mass spectrometry. Refer to KDIGO guidelines for clinical interpretation. In patients with unstable renal function, e.g. those with acute kidney injury, the eGFR may not accurately reflect actual GFR. Glucose [Mass/Vol] 78 mg/dL 74 - 99 mg/dL [facility] Comment on above: The [place] Di[employer] s Association (ADA) provides guidance for cutoff values for fasting glucose and random glucose. The ADA defines fasting as no caloric intake for at least 8 hours. Fasting plasma glucose results between 100 to 125 mg/dL indicate increased risk for diabetes (prediabetes). Fasting plasma glucose results greater than or equal to 126 mg/dL meet the criteria for diagnosis of diabetes. In the absence of unequivocal hyperglycemia, results should be confirmed by repeat testing. In a patient with classic symptoms of hyperglycemia or hyperglycemic crisis, random plasma glucose results greater than or equal to 200 mg/dL meet the criteria for diagnosis of diabetes. Reference: Standards of Medical Care in Diabetes 2016, [place] [employer]. Diabetes Care. 2016.39(Suppl 1). Interpretation and review of laboratory results Abnormal [facility] Potassium [Moles/Vol] 4.0 mmol/L 3.7 - 5.1 mmol/L [facility] Protein [Mass/Vol] 6.1 g/dL Low 6.3 - 8.0 g/dL [facility] Sodium [Moles/Vol] 138 mmol/L 136 - 144 mmol/L [facility] Urea nitrogen [Mass/Vol] 13 mg/dL 7 - 21 mg/dL [facility] Brain/Head without Contrasto n 11-28-2023 Brain/Head without Contrast [facility] Imaging Services [address] [place] [address] Brain/Head without Contrast MR#: [id number] Acct: [id number] Name: JIL DÍAZ Rep #: [id number] : 1940 F 83 From: Esther mccray MD PCP: Dr. Bjorn Soares MD Status: REG ER Study: Brain/Head without Contrast Date of Exam: 11/01 12/24 Exam# [id number] Ordering Dr: Aj Reynolds DO [id number] HISTORY: HEAD INJURY. TECHNIQUE: Multiple axial images were obtained of the head without intravenous contrast. A radiation dose optimization technique was used for this scan. 235 images. COMPARISON: 07/21/2023. FINDINGS: BRAIN PARENCHYMA: Multiple foci and zones of low attenuation in the bilateral cerebral white matter compatible with chronic small vessel ischemic gliosis. Old right basal ganglia lacunar infarct. No acute intra-axial hemorrhage identified. CSF SPACES: Generalized volume loss. No midline shift or other significant mass effect. No acute extra-axial hemorrhage seen. OTHER: Intact calvarium. No significant air fluid levels in the paranasal sinuses or mastoid air cells. Bilateral lens resections. CT/Brain/Head without Contrast IMPRESSION: No acute intracranial process identified. Chronic involutional and white matter changes. Electronically Signed: Esther Ayers MD at 8:20 EDT , CC: Dr. Bjorn Soares MD; Dr. Aj Reynolds DO Motel Maid: Signed [facility] Emergency Department Summary on 11-28-2023 Emergency Department Summary [facility] Medical Records Department [address] [place] [address] Emergency Department Summary 11/28/23 MR#: [id number] Acct: [id number] Name: IJL DÍAZ Rep #: [id number] : 1940 83 From: Aj Reynolds DO PCP: Dr. Bjorn Soares MD Status:REG ER Location: ED HPI HPI - Fall History of Present Illness Chief Complaint: Fall Narrative Narrative: 83-year-old female with history of A-fib on Eliquis presenting after head injury. She states she was off loading some groceries and bent over and hit her head on the wall. She initially did not have any headache, nausea, vomiting, dizziness. She started to be dizzy this morning. Patient called PCP and emergency room that she is on Eliquis. She denies severe headache. She was able to drive to ER. She is not significantly dizzy at this point. No nausea or vomiting. No neck pain. [facility] Medical History Dyspnea on exertion Wears glasses Cancer Ambulates with cane Bladder disease History of renal disease High cholesterol Easy bruising Migraine headache Injury of head and neck Former smoker Leg cramps History of edema History of stress test History of echocardiogram Cardiology follow-up encounter Shortness of breath on exertion LLQ abdominal pain CKD (chronic kidney disease) stage 3, GFR 30-59 ml/min Heart murmur Concussion Chronic urticaria Basal cell carcinoma Aortic stenosis Nonrheumatic mitral (valve) insufficiency Nonrheumatic aortic (valve) insufficiency Secondary pulmonary arterial hypertension Hyperlipidemia Seasonal allergies Anemia Glaucoma GERD (gastroesophageal reflux disease) Essential (primary) hypertension Premature atrial contractions History of shingles History of basal cell cancer History of rectocele History of melanoma Home Medications ???Medication ???Instructions ???Recorded ???Last Taken ???Type biotin 10,000 mcg disintegrating 10,000 mcg PO DAILY 05/28/17 06/03/20 History tablet famotidine 40 mg tablet 40 mg PO BID 05/28/17 06/03/20 History atorvastatin 10 mg tablet 10 mg PO QHS cholesterol 10/05/19 06/02/20 History dorzolamide 22.3 mg-timolol 6.8 1 drp EACH EYE BID 12/22/21 Unknown History mg/mL eye drops latanoprost 0.005 % eye drops 1 drp EACH EYE DAILY 12/22/21 Unknown History brimonidine 0.2 % eye drops 2 drp EACH EYE BID 11/10/22 Unknown History cholecalciferol (vitamin D3) 25 2,000 unit PO DAILY supplement 11/10/22 Unknown History mcg (1,000 unit) capsule cyanocobalamin (vitamin B-12) 2,000 mcg PO DAILY supplement 11/10/22 Unknown History 1,000 mcg tablet gabapentin 300 mg capsule 300 mg PO QHS 11/10/22 Unknown History melatonin 5 mg tablet 5 mg PO HS PRN sleep 11/10/22 Unknown History Handicap placard #1 ea 04/12/23 Unknown Rx apixaban 5 mg tablet (Eliquis) 5 mg PO BID #60 tabs 04/12/23 Unknown Rx vitamins A,C,Q-khze-jlwixd 4,296 1 cap PO BID eye health 04/12/23 Unknown History mcg-226 mg-90 mg capsule furosemide 40 mg tablet (Lasix) 40 mg PO DAILY #90 tabs 04/13/23 Unknown Rx potassium chloride 20 mEq 20 meq PO BID #90 tabs 06/01/23 Unknown Rx tablet,extended release diltiazem HCl 120 mg 120 mg PO BID heart #90 caps 06/23/23 Unknown Rx capsule,extended release 24 hr losartan 25 mg tablet 25 mg PO DAILY #90 tabs 06/23/23 Unknown Rx ciprofloxacin HCl 500 mg tablet 500 mg PO BID #10 tabs 08/25/23 Unknown Rx Allergy/AdvReac Type Severity Reaction Status Date / Time oxycodone (From Percocet) AdvReac Upset Verified 11/19/23 13:01 Stomach Family History Mother Anemia Hypertension Brother Hypertension Grandfather Cancer Surgical History Hx of colonoscopy History of bilateral cataract extraction History of hemorrhoidectomy History of repair of right rotator cuff History of laparoscopy History of appendectomy History of hysterectomy Social History Smoking Status: Former smoker Tobacco: How many years used: 25 how long ago did patient quit smokin alcohol intake: never substance use type: does not use what type of physical activity do you participate in: none ROS ROS ED ROS Narrative Dizziness Constitutional Constitutional ED: Denies chills, fever(s) or sweats Eyes Eyes: Denies blurry vision or change in vision ENT ENT ED: Denies ear pain or sore throat Cardiovascular Cardiovascular: Denies chest pain, palpitations or racing heartbeat Respiratory/Chest Respiratory/Chest: Denies cough, dyspnea or sputum Gastrointestinal Gastrointestinal: Denies abdominal pain, constipation, diarrhea, nausea or vomiting Genitour (more content not included)... [facility] Urgent Care Visit Reporton 0 11-19-2023 Urgent Care Visit Report [facility] [address], [address] [place] [address] OFFICE VISIT Date of Service: 11/19/23 MR#: [id number] Acct: [id number] Name: JIL DÍAZ Rep #: [id number] : 1940 Provider: JEFFERSON Kessler Age/Sex: 83/F Location[place] [facility] Status: Signed Intake Vital Signs 09/23/23 12:54 11/19/23 13:00 Height 5 ft 4 in Weight: 139 lb BMI 23.8 BP 161/84 H 128/88 H Blood Pressure Location Lt brachial Lt brachial Position Sitting Sitting Respiration 18 17 Pulse 85 102 H Pulse Source Monitor NIBP Temp 98.7 F Temp Source Temporal Pulse Oximetry (%) 97 96 Oxygen Delivery Method room air Intake Visit Reasons: L LEG INJURY/X4 DAYS PRIOR Chief Complaint: LLE injury Director Data Analytics Required: No Is patient in pain?: Yes Allergies oxycodone (From Percocet) Adverse Reaction (Verified 11/19/23 13:01) Upset Stomach Is last menstrual period known: No Post menopausal: Yes Patient : No Have you fallen in the past year?: Yes Nurse's Note: LLE wound x 10 days with pain/redness/swelling . item fell onto lateral left lower leg creating skin tear/laceration. increasing redness/tenderness to area. believes tetanus may be out of date. [facility] Medical History Dyspnea on exertion Wears glasses Cancer Ambulates with cane Bladder disease History of renal disease High cholesterol Easy bruising Migraine headache Injury of head and neck Former smoker Leg cramps History of edema History of stress test History of echocardiogram Cardiology follow-up encounter Shortness of breath on exertion LLQ abdominal pain CKD (chronic kidney disease) stage 3, GFR 30-59 ml/min Heart murmur Concussion Chronic urticaria Basal cell carcinoma Aortic stenosis Nonrheumatic mitral (valve) insufficiency Nonrheumatic aortic (valve) insufficiency Secondary pulmonary arterial hypertension Hyperlipidemia Seasonal allergies Anemia Glaucoma GERD (gastroesophageal reflux disease) Essential (primary) hypertension Premature atrial contractions History of shingles History of basal cell cancer History of rectocele History of melanoma Surgical History Hx of colonoscopy History of bilateral cataract extraction History of hemorrhoidectomy History of repair of right rotator cuff History of laparoscopy History of appendectomy History of hysterectomy Family History Mother Anemia Hypertension Brother Hypertension Grandfather Cancer Social History Smoking Status: Former smoker Tobacco: How many years used: 25 how long ago did patient quit smokin alcohol intake: never substance use type: does not use what type of physical activity do you participate in: none HPI HPI Chief Complaint: LLE injury Details: JIL DÍAZ, is a 83 F who presents to the office today for treatment of LLE. Patient states she cut it 10 days ago on the bottom of the car door. She has been keeping it covered but noticed more redness today. No fever, chills or sweats. No numbness, tingling or loss in ROM. ROS Const Constitutional: No other (6 system ROS completed with pertinent findings in the HPI otherwise normal.) Exam Const General: cooperative and healthy appearing Resp Effort Inspection: normal respiratory effort Cardio Rate: regular rate Skin Other: Curved laceration left lateral calf measuring approximately 5-6cm with minor surrounding erythema and ecchymosis. No streaking. Neuro General: patient alert Psych Appearance: grossly normal Mental Status: mental status grossly normal Immunizations Boostrix Tdap 2.5 Lf unit-8 mcg-5 Lf/0.5 mL intramuscular syringe Performing Provider: JEFFERSON Padilla Performing Location: [facility] Administered by: Alka David on 11/19/23 13:19 Dose Route Admin Location Dispensed Lot Number Expiration Date [facility] Man ufacturer 0.5 mL IM Right Buttock 0.5 mL [id number] 06/03/25 51650-944-58 [employer] VIS Given Date VIS Provided VIS Publication Date 11/19/23 Single Vaccine 20 Eligibility Eligibility Date Funding Source Not Applicable Coding Level of Care Code Off vis,est,level 3 Diagnoses Laceration of left lower leg with infection S81.812A; L08.9 Assessment and Plan Assessment and Plan (1) Laceration of left lower leg with infection: Status: Acute Plan: Bactrim as prescribed today. Encouraged to get plenty of rest, drink lots of clear liquids, and use Tylenol or Ibuprofen (unless contraindicated) for comfort. Wound care discussed. Patient also educated on other symptomatic management t (more content not included)... [facility] Cardiology Visit Reporton Cardiology Visit Report [facility] [address] [place] [address]. [address] [place] [address] OFFICE VISIT Date of Service: 09/23/23 MR#: [id number] Acct: [id number] Name: JIL DÍAZ Rep #: [id number] : 1940 Provider: JAGJIT jules Age/Sex: 83/F Location: [facility] Status: Signed HPI [facility] History of Present Illness Details: Ms. Díaz is a pleasant 83-year-old lady with a history of hypertension, hyperlipidemia who is here today for a cardiovascular follow up. She also has a history of aortic valve disease with mild aortic regurgitation, mild stenosis, mild mitral regurgitation, and atrial fibrillation (first noted 04/12/2023). She denies chest, arm, jaw, or neck discomfort. She denies palpitations. She denies bilateral lower extremity edema. She denies claudication. She denies shortness of breath with activity, shortness of breath at rest, orthopnea, or PND. She denies chronic cough. She denies significant, sudden weight gain. She denies lightheadedness, dizziness, near-syncope, or syncope. She denies blood in urine, blood in stool, or epistaxis. He denies fever with chills. She denies myalgia. She denies fatigue. Her exercise level has remained stable. Intake Vital Signs 08/25/23 15:08 09/23/23 12:54 Height 5 ft 4 in 5 ft 4 in Weight: 139 lb 139 lb BMI 23.8 23.8 BP 161/84 H Blood Pressure Location Lt brachial Position Sitting Respiration 17 18 Pulse 85 85 Pulse Source Monitor Monitor Temp 100.4 F H Pulse Oximetry (%) 98 97 Oxygen Delivery Method room air Intake Visit Reasons: 6 M FU Director Data Analytics Required: No Accompanied by: Son Is patient in pain?: No Allergies oxycodone (From Percocet) Adverse Reaction (Verified 09/23/23 12:54) Upset Stomach Medications ???Medication ???Instructions ???Recorded ???Confirmed ???Type biotin 10,000 mcg disintegrating 10,000 mcg PO DAILY 05/28/17 09/23/23 History tablet famotidine 40 mg tablet 40 mg PO BID 05/28/17 09/23/23 History atorvastatin 10 mg tablet 10 mg PO QHS cholesterol 10/05/19 09/23/23 History dorzolamide 22.3 mg-timolol 6.8 1 drp EACH EYE BID 12/22/21 09/23/23 History mg/mL eye drops latanoprost 0.005 % eye drops 1 drp EACH EYE DAILY 12/22/21 09/23/23 History brimonidine 0.2 % eye drops 2 drp EACH EYE BID 11/10/22 09/23/23 History cholecalciferol (vitamin D3) 25 2,000 unit PO DAILY supplement 11/10/22 09/23/23 History mcg (1,000 unit) capsule cyanocobalamin (vitamin B-12) 2,000 mcg PO DAILY supplement 11/10/22 09/23/23 History 1,000 mcg tablet gabapentin 300 mg capsule 300 mg PO QHS 11/10/22 09/23/23 History melatonin 5 mg tablet 5 mg PO HS PRN sleep 11/10/22 09/23/23 History Handicap placard #1 ea 04/12/23 09/23/23 Rx apixaban 5 mg tablet (Eliquis) 5 mg PO BID #60 tabs 04/12/23 09/23/23 Rx vitamins A,C,N-myaf-sdgnnu 4,296 1 cap PO BID eye health 04/12/23 09/23/23 History mcg-226 mg-90 mg capsule furosemide 40 mg tablet (Lasix) 40 mg PO DAILY #90 tabs 04/13/23 09/23/23 Rx potassium chloride 20 mEq 20 meq PO BID #90 tabs 06/01/23 09/23/23 Rx tablet,extended release diltiazem HCl 120 mg 120 mg PO BID heart #90 caps 06/23/23 09/23/23 Rx capsule,extended release 24 hr losartan 25 mg tablet 25 mg PO DAILY #90 tabs 06/23/23 09/23/23 Rx ciprofloxacin HCl 500 mg tablet 500 mg PO BID #10 tabs 08/25/23 09/23/23 Rx Nurse's Note: no med list, but states not thing has changed [facility] Medical History (Reviewed 09/23/23 @ 13:04 by Nilton Rosa MEDICAL AFFAIRS SPECIALIST, MEDICAL AFFAIRS SPECIALIST-C) Dyspnea on exertion Wears glasses Cancer Ambulates with cane Bladder disease History of renal disease High cholesterol Easy bruising Migraine headache Injury of head and neck Former smoker Leg cramps History of edema History of stress test History of echocardiogram Cardiology follow-up encounter Shortness of breath on exertion LLQ abdominal pain CKD (chronic kidney disease) stage 3, GFR 30-59 ml/min Heart murmur Concussion Chronic urticaria Basal cell carcinoma Aortic stenosis Nonrheumatic mitral (valve) insufficiency Nonrheumatic aortic (valve) insufficiency Secondary pulmonary arterial hypertension Hyperlipidemia Seasonal allergies Anemia Glaucoma GERD (gastroesophageal reflux disease) Essential (primary) hypertension Premature atrial contractions History of shingles History of basal cell cancer History of rectocele History of melanoma Surgical History Hx of colonoscopy History of bilateral cataract extraction History of hemorrhoidectomy History of repair of right rotator cuff History of laparoscopy History of appendectomy History of hysterectomy Family History Mother Anemia Hypertension Brother Krystyna (more content not included)... Normal [facility] Comprehensive metabolic 2000 panelon 09-14-2023 Albumin [Mass/Vol] 3.9 g/dL 3.9 - 4.9 g/dL [facility] ALP [Catalytic activity/Vol] 96 U/L 34 - 123 U/L [facility] ALT [Catalytic activity/Vol] 15 U/L 7 - 38 U/L [facility] Anion gap [Moles/Vol] 9 mmol/L 9 - 18 mmol/L [facility] AST [Catalytic activity/Vol] 20 U/L 13 - 35 U/L [facility] Bilirubin [Mass/Vol] 0.5 mg/dL 0.2 - 1 .3 mg/dL [facility] Calcium [Mass/Vol] 9.1 mg/dL 8.5 - 10. 2 mg/dL [facility] Chloride [Moles/Vol] 102 mmol/L 97 - 10 5 mmol/L [facility] CO2 [Moles/Vol] 26 mmol/L 22 - 30 mmol/L [facility] Creatinine [Mass/Vol] 1.01 mg/dL High 0.58 - 0.96 mg/dL [facility] GFR/1.73 sq M.predicted among non-blacks MDRD (S/P/Bld) [Vol rate/Area] 55 mL/min/{1.73_m2} Low - PINF Cl [facility] Comment on above: Estimated Glomerular Filtration Rate (eGFR) is calculated using the 2020 CKD-EPI creatinine equation. This equation utilizes serum creatinine, sex, and age as parameters. The creatinine assay has traceable calibration to isotope dilution-mass spectrometry. Refer to KDIGO guidelines for clinical interpretation. In patients with unstable renal function, e.g. those with acute kidney injury, the eGFR may not accurately reflect actual GFR. Glucose [Mass/Vol] 88 mg/dL 74 - 99 mg/dL [facility] Comment on above: The [place] Diab[employer] s Association (ADA) provides guidance for cutoff values for fasting glucose and random glucose. The ADA defines fasting as no caloric intake for at least 8 hours. Fasting plasma glucose results between 100 to 125 mg/dL indicate increased risk for diabetes (prediabetes). Fasting plasma glucose results greater than or equal to 126 mg/dL meet the criteria for diagnosis of diabetes. In the absence of unequivocal hyperglycemia, results should be confirmed by repeat testing. In a patient with classic symptoms of hyperglycemia or hyperglycemic crisis, random plasma glucose results greater than or equal to 200 mg/dL meet the criteria for diagnosis of diabetes. Reference: Standards of Medical Care in Diabetes 2016, [place] [employer]. Diabetes Care. 2016.39(Suppl 1). Potassium [Moles/Vol] 3.8 mmol/L 3.7 - 5.1 mmol/L [facility] Protein [Mass/Vol] 6.5 g/dL 6.3 - 8.0 g/dL [facility] Sodium [Moles/Vol] 137 mmol/L 136 - 144 mmol/L [facility] Urea nitrogen [Mass/Vol] 13 mg/dL 7 - 21 mg/dL [facility] LIPID PANEL, NONFASTINGon Cholesterol [Mass/Vol] 218 mg/dL High NINF - 200 mg/dL [facility] Comment on above: <200 mg/dL, Desirabl e 200-239 mg/dL, Borderline high >239 mg/dL, High HDL Cholesterol, Nonfasting 53 mg/dL 39 - PINF mg/dL [facility] Comment on above: 40-59 mg/dL, Accepta ble >59 mg/dL, High: Negative risk factor for coronary heart disease <40 mg/dL, Low: Positive risk factor for coronary heart disease LDL Cholesterol, Nonfasting 136 mg/dL High NINF - 100 mg/dL [facility] Comment on above: <100 mg/dL, Optimal 100-129 mg/dL, Near optimal/above optimal 130-159 mg/dL, Borderline high 160-189 mg/dL, High >189 mg/dL, Very high Secondary prevention optimal LDL Cholesterol levels are recommended to be < 70 mg/dL LDL/HDL Ratio, Nonfasting 2.57 mg/dL High NI NF - 2.54 mg/dL [facility] Comment on above: Reference: 1. National Cholesterol Education Program ATP III Guideline At-A-Glance Quick Desk Reference: National Heart, Lung, and Blood [place]. National Institutes of Health. 2001: NIH Publication No. 01-3305. 2. An International Atherosclerosis Society position paper: global recommendations for the management of dyslipidemia: executive summary, Atherosclerosis. 2014: 232(2):410-413. Non HDL Cholesterol, Nonfasting 165 mg/dL High NINF - 130 mg/dL [facility] Comment on above: <130 mg/dL, Optimal 130-159 mg/dL, Near optimal/above optimal 160-189 mg/dL, Borderline high 190-219 mg/dL, High >219 mg/dL, Very high Secondary prevention optimal non HDL Cholesterol levels are recommended to be <100 mg/dL Total Chol/HDL Ratio, Nonfasting 4.11 mg/dL NINF - 5.10 mg/dL [facility] Triglycerides, Nonfasting 146 mg/dL NI NF - 150 mg/dL [facility] Comment on above: <150 mg/dL, Normal 150-199 mg/dL, Borderline high 200-499 mg/dL, High >499 mg/dL, Very high VLDL Cholesterol, Nonfasting 29 mg/dL NINF - 30 mg/dL [facility] No Panel Informationon 09-13 Interpretation and review of laboratory results Abnormal [facility] US Kidney - bilateral and Ur inary bladderon 09-13-2023 IMPRESSION: 1. Mildly increased bilateral renal parenchymal echogenicity, a nonspecific finding which may be seen in setting of medical renal disease. Correlation with urinalysis and creatinine levels is requested. 3. Simple bilateral renal cysts. Motel Maid: MAYITO Transcribe Date/Time: Sep 13 2023 1:45P Dictated by : CINDY MARQUEZ MD This examination was interpreted and the report reviewed and electronically signed by: CINDY MARQUEZ MD on Sep 13 2023 1:47PM [facility] DIVISION OF RADIOLOGY * * *Final Report* * * DATE OF EXAM: Sep 13 2023 1:14PM [facility] 1055 - US KIDNEY/BLADDER / PROCEDURE REASON: Acute left flank pain * * * * Physician Interpretation * * * * EXAMINATION: RENAL ULTRASOUND CLINICAL HISTORY: Left flank pain TECHNIQUE: Sonography of the kidneys and urinary bladder was performed. Images were obtained and stored in a permanent archive and interpreted remotely. MQ: UR_1 COMPARISON: Correlation made to CT abdomen pelvis dated August 28, 2022 RESULT: Right Kidney: -Renal length: 10.2 cm -Parenchyma: Mildly increased parenchymal echogenicity. Normal parenchymal thickness. -Collecting system: No hydronephrosis. -Calculus: No echogenic, shadowing calculus. -Lesion: 1 cm exophytic midpole cyst. Left Kidney: -Renal length: 9.4 cm -Parenchyma: Mildly increased parenchymal echogenicity. Normal parenchymal thickness. -Collecting system: No hydronephrosis. -Calculus: No echogenic, shadowing calculus. -Lesion: 2.8 cm exophytic midpole cyst. Bladder: Normal sonographic appearance with a volume of 102 mL. Bilateral ureteral jets visualized. DIVISION OF RADIOLOGY Provider, Francy Gaspar [facility] - 09/13/2023 * * *Final Report* * * DATE OF EXAM: Sep 13 2023 1:14PM [facility] 1055 - US KIDNEY/BLADDER / PROCEDURE REASON: Acute left flank pain * * * * Physician Interpretation * * * * EXAMINATION: RENAL ULTRASOUND CLINICAL HISTORY: Left flank pain TECHNIQUE: Sonography of the kidneys and urinary bladder was performed. Images were obtained and stored in a permanent archive and interpreted remotely. MQ: UR_1 COMPARISON: Correlation made to CT abdomen pelvis dated August 28, 2022 RESULT: Right Kidney: -Renal length: 10.2 cm -Parenchyma: Mildly increased parenchymal echogenicity. Normal parenchymal thickness. -Collecting system: No hydronephrosis. -Calculus: No echogenic, shadowing calculus. -Lesion: 1 cm exophytic midpole cyst. Left Kidney: -Renal length: 9.4 cm -Parenchyma: Mildly increased parenchymal echogenicity. Normal parenchymal thickness. -Collecting system: No hydronephrosis. -Calculus: No echogenic, shadowing calculus. -Lesion: 2.8 cm exophytic midpole cyst. Bladder: Normal sonographic appearance with a volume of 102 mL. Bilateral ureteral jets visualized. IMPRESSION IMPRESSION: 1. Mildly increased bilateral renal parenchymal echogenicity, a nonspecific finding which may be seen in setting of medical renal disease. Correlation with urinalysis and creatinine levels is requested. 3. Simple bilateral renal cysts. Motel Maid: PSCB Transcribe Date/Time: Sep 13 2023 1:45P Dictated by : CINDY MARQUEZ MD This examination was interpreted and the report reviewed and electronically signed by: CINDY MARQUEZ MD on Sep 13 2023 1:47PM EST [facility] Radiology Study observation (narrative) [facility] US Kidney - bilateral and Ur inary bladderOrdered By: Cc Provider on 09-13-2023 [facility] Basophil percentageOrdered B y: Ry Mcbride on 08-25-2023 Basophil percentage 25-50 SEEN /hpf 0-5 [facility] Bilirubin Test strip Ql (U)O rdered By: Ry Mcbride on 08-25-2023 Bilirubin Ql (U) Negative Negative [facility] Culture, urineOrdered By: St nicolle Mcbride on 08-25-2023 Bacteria identified Cx Nom (U) Klebsiella pneumoniae sp pneum [facility] Ketones Test strip Ql (U)Ord ered By: Ry Mcbride on 08-25-2023 Ketones Ql (U) Negative Negative [facility] Laboratory - Chemistry and C hemistry - challengeon 08-25-2023 Bilirubin Ql (U) Negative [facility] Glucose Ql (U) Negative [facility] Ketones Ql (U) Negative [facility] pH (U) 6.0 [pH] [facility] Specific gravity (U) [Rel density] 1.015 [facility] Urobilinogen (U) [Mass/Vol] 0.2536569 mg/dL [facility] Laboratory - Hematology and Cell countson 08-25-2023 Hemoglobin Ql (U) Negative [facility] Laboratory - Specimen inform ationon 08-25-2023 Clarity (U) Cloudy [facility] Color (U) Yellow [facility] Laboratory - Urinalysison Nitrite Ql (U) Negative [facility] Protein Ql (U) Negative [facility] Mucus LM Ql (Urine sed)Order ed By: Ry Mcbride on 08-25-2023 Mucus Ql (Urine sed) 0 SEEN /hpf [facility] Nitrite Test strip Ql (U)Ord ered By: Ry Mcbride on 08-25-2023 Nitrite Ql (U) Negative Negative [facility] No Panel InformationOrdered By: Ry Mcbride on 08-25-2023 Urine RBC 0-5 SEEN /hpf 0-5 [facility] No Panel Informationon 08-24 Urine Leukocytes Positive [facility] Urine Non-Hemolyzed Blood Negative [facility] Protein Test strip Ql (U)Ord ered By: Ry Mcbride on 08-25-2023 Protein Ql (U) 15 mg/dl Negative [facility] Squamous epithelial cells de tection in urine sediment by light microscopyOrdered By: Ry Mcbride on 08-25-2023 Epithelial cells.squamous LM Ql (Urine sed) 0-5 SEEN /hpf 5-10 [facility] Urine blood detectionOrdered By: Ry Mcbride on 08-25-2023 RBC Ql (U) 150 /ul Negative [facility] Urine clarityOrdered By: Tavo Mcbride on 08-25-2023 Clarity (U) Sl. Cloudy Clear [facility] Urine color determinationOrd ered By: Ry Mcbride on 08-25-2023 Color (U) Yellow Yellow [facility] Urine glucose detectionOrder ed By: Ry Mcbride on 08-25-2023 Glucose Ql (U) Normal mg/dl Normal [facility] Urine leukocyte esterase det ection by dipstickOrdered By: Ry Mcbride on 08-25-2023 Leukocyte esterase Test strip Ql (U) 500 /ul Negative [facility] Urine pHOrdered By: Ry draper on 08-25-2023 pH (U) 6.0 [pH] 5.0 - 8.0 [facility] Urine sediment bacteria coun t by microscopy (number/high power field)Ordered By: Ry Mcbride on 08-25-2023 Bacteria LM.HPF (Urine sed) [#/Area] 1 /[HPF] None Seen [facility] Urine specific gravity measu rementOrdered By: Ry Mcbride on 08-25-2023 Specific gravity (U) [Rel density] 1.005 1.002-1.030 [facility] Urine urobilinogen measureme ntOrdered By: Ry Mcbride on 08-25-2023 Urobilinogen Ql (U) Normal mg/dl Normal [facility] Lower GI hemoglobin IA Ql (S tl)Ordered By: Stan Ng on 08-07-2023 Stool Occult Blood (DAVID) Positive [facility] Absolute lymphocyte countOrd ered By: Stan Ng on 08-05-2023 Lymphocytes Auto (Unsp spec) [#/Vol] 1.34 10*3/uL 0.83-4.51 [facility] Automated lymphocyte count a s percentage of total leukocytesOrdered By: Stan Ng on 08-05-2023 Lymphocytes/100 WBC Auto (Unsp spec) 14.1 % 19-41 [facility] Basophil percentageOrdered B y: Stan Ng on 08-05-2023 Basophils/100 WBC (Bld) 0.5 % 0-1 [facility] Eosinophils/100 WBC (Bld) 0.2 % 0-5 [facility] Hemoglobin (Bld) [Mass/Vol] 14.6 g/dL 12.0-15. 0 [facility] Monocytes/100 WBC (Bld) 8.4 % 0-10 [facility] Neutrophils (Bld) [#/Vol] 7.2 10*3/uL 2.0-7.7 [facility] Neutrophils/100 WBC (Bld) 76.2 % 47-70 [facility] WBC (Bld) [#/Vol] 9.5 10*3/uL 4.4-11.0 [facility] Determination of erythrocyte mean corpuscular volume (MCV)Ordered By: Stan Ng on 08-05-2023 MCV (RBC) [Entitic vol] 95.7 fL 81-99 [facility] Erythrocyte distribution wid th ratioOrdered By: Stanmahendra Ng on 08-05-2023 Erythrocyte distribution width (RBC) [Ratio] 13.5 % 11.6-14.6 [facility] Erythrocyte distribution wid th standard deviationOrdered By: Stanmahendra Ng on 08-05-2023 Erythrocyte distribution width (RBC) [Entitic vol] 47.5 fL 35.1-43.9 [facility] Hematocrit Auto (Bld) [Volum e fraction]Ordered By: Standoug Ng on 08-05-2023 Hematocrit (Bld) [Volume fraction] 46.3 % 37-47 [facility] Immature granulocytes/100 WB C Auto (Bld)Ordered By: Stan Ng on 08-05-2023 Immature granulocytes/100 WBC (Bld) 0.600 % 0.0-0.9 [facility] Comment on above: IG% - Immature Granu locytes (promyelocytes, myelocytes and metamyelocytes) > 1% indicates that a LEFT SHIFT is Present. Laboratory - Hematology and Cell countsOrdered By: Stan Ng on 08-05-2023 MCH (RBC) [Entitic mass] 30.2 pg 27.0-32.0 [facility] MCHC (RBC) [Mass/Vol] 31.5 g/dL 32-36 [facility] Nucleated RBC/100 WBC (Bld) [Ratio] 0 % 0-5 [facility] Platelet mean volume (Bld) [Entitic vol] 9.4 fL 6.2-12.0 [facility] Platelets (Bld) [#/Vol] 326 10*3/uL 150-450 [facility] RBC Auto (Bld) [#/Vol]Ordere d By: Stan Ng on 08-05-2023 RBC (Bld) [#/Vol] 4.84 10*6/uL 4.2-5.4 [facility] CT Head WO contraston 2023 [facility] Culture, urineOrdered By: Jonathan Balbuena on 05-26-2023 Bacteria identified Cx Nom (U) Klebsiella pneumoniae sp pneum [facility] Bacteria identified Cx Nom (U) Klebsiella pneumoniae sp pneum [facility] Laboratory - Chemistry and C hemistry - challengeon 05-26-2023 Bilirubin Ql (U) Negative [facility] Glucose Ql (U) Negative [facility] pH (U) 6.0 [pH] [facility] Specific gravity (U) [Rel density] 1.005 [facility] Urobilinogen (U) [Mass/Vol] Negative [facility] Laboratory - Hematology and Cell countson 05-26-2023 Hemoglobin Ql (U) Negative [facility] Laboratory - Specimen inform ationon 05-26-2023 Clarity (U) Clear [facility] Color (U) Yellow [facility] Laboratory - Urinalysison Nitrite Ql (U) Negative [facility] Protein Ql (U) Negative [facility] No Panel Informationon 05-26 Urine Leukocytes Positive [facility] Urine Non-Hemolyzed Blood [facility] Absolute lymphocyte countOrd ered By: Aidan Sparks on 05-17-2023 Lymphocytes Auto (Unsp spec) [#/Vol] 1.81 10*3/uL 0.83-4.51 [facility] Basophil percentageOrdered B y: Aidan Sparks on 05-17-2023 Basophils/100 WBC (Bld) 1.0 % 0-1 [facility] Bilirubin [Mass/Vol] 0.70 mg/dL 0.20-1.00 [facility] Comment on above: For patients on eltr ombopag therapy, use of Dimension [place] TBIL is not recommended. Chloride [Moles/Vol] 106 mmol/L 98-107 [facility] Eosinophils/100 WBC (Bld) 0.1 % 0-5 [facility] Glucose [Mass/Vol] 120 mg/dL 74-106 [facility] Comment on above: Fasting Glucose resu lt from 100 to 125 mg/dL suggests IMPAIRED HOMEOSTASIS per A.D.A. criteria. Neutrophils (Bld) [#/Vol] 6.1 10*3/uL 2.0-7.7 [facility] Neutrophils/100 WBC (Bld) 68.5 % 47-70 [facility] Potassium [Moles/Vol] 3.3 mmol/L 3.5-5.1 [facility] Protein [Mass/Vol] 7.1 g/dL 6.4-8.2 [facility] Sodium [Moles/Vol] 141 mmol/L 136-145 [facility] WBC (Bld) [#/Vol] 8.9 10*3/uL 4.4-11.0 [facility] Blood erythrocytes count (nu mber/volume)Ordered By: Aidan Sparks on 05-17-2023 RBC (Bld) [#/Vol] 4.75 10*6/uL 4.2-5.4 [facility] Blood hemoglobin measurement (mass/volume)Ordered By: Aidan Sparks on 05-17-2023 Hemoglobin (Bld) [Mass/Vol] 14.6 g/dL 12.0-15. 0 [facility] Blood lymphocytes/100 leukoc ytesOrdered By: Aidan Sparks on 05-17-2023 Lymphocytes/100 WBC (Bld) 20.2 % 19-41 [facility] Blood monocytes/100 leukocyt esOrdered By: Aidan Sparks on 05-17-2023 Monocytes/100 WBC (Bld) 10.0 % 0-10 [facility] Blood platelet mean volumeOr dered By: Aidan Sparks on 05-17-2023 Platelet mean volume (Bld) [Entitic vol] 9.2 fL 6.2-12.0 [facility] Determination of erythrocyte mean corpuscular volume (MCV)Ordered By: Aidan Sparks on 05-17-2023 MCV (RBC) [Entitic vol] 94.9 fL 81-99 [facility] Hematocrit Auto (Bld) [Volum e fraction]Ordered By: Aidan Sparks on 05-17-2023 Hematocrit (Bld) [Volume fraction] 45.1 % 37-47 [facility] Laboratory - Chemistry and C hemistry - challengeOrdered By: Aidan Sparks on 05-17-2023 ALP [Catalytic activity/Vol] 95 U/L 45-117 [facility] ALT [Catalytic activity/Vol] 22 U/L 13-56 [facility] CO2 [Moles/Vol] 23.0 mmol/L 21.0-32.0 [facility] Globulin (S) [Mass/Vol] 3.9 g/dL 2.2-4.2 [facility] Urea nitrogen/Creatinine [Mass ratio] 13.0 mg/mg 10-20 [facility] Laboratory - Hematology and Cell countsOrdered By: Aidan Sparks on 05-17-2023 Erythrocyte distribution width (RBC) [Entitic vol] 56.4 fL 35.1-43.9 [facility] Erythrocyte distribution width (RBC) [Ratio] 16.3 % 11.6-14.6 [facility] Immature granulocytes/100 WBC (Bld) 0.200 % 0.0-0.9 [facility] Comment on above: IG% - Immature Granu locytes (promyelocytes, myelocytes and metamyelocytes) > 1% indicates that a LEFT SHIFT is Present. MCH (RBC) [Entitic mass] 30.7 pg 27.0-32.0 [facility] Nucleated RBC/100 WBC (Bld) [Ratio] 0 % 0-5 [facility] MCHC Auto (RBC) [Mass/Vol]Or dered By: Aidan Sparks on 05-17-2023 MCHC (RBC) [Mass/Vol] 32.4 g/dL 32-36 [facility] No Panel InformationOrdered By: Aidan Sparks on 05-17-2023 Estimated Creatinine Clearance Calc 27.61 ml/min [facility] Estimated GFR (MDRD) Amer 50 mL/min >60 [facility] Comment on above: GFR Calc Estimated GFR (MDRD) Non-Af Amer 41 mL/min >60 [facility] Comment on above: Non- GFR Calc Troponin I High Sensitivity 29 pg/mL 3.0-54.0 [facility] Comment on above: Please Note: [place] t Units and Gender Specific Reference Ranges. For more information see Policy Stat Procedure [place] High Sensitivity Troponin (TNIH) and attachments. Platelets bldOrdered By: Taylor Sparks on 05-17-2023 Platelets (Bld) [#/Vol] 286 10*3/uL 150-450 [facility] Serum or plasma albumin jackson urement (mass/volume)Ordered By: Aidan Sparks on 05-17-2023 Albumin [Mass/Vol] 3.2 g/dL 3.2-5.0 [facility] Serum or plasma albumin/glob ulin mass ratioOrdered By: Aidan Sparks on 05-17-2023 Albumin/Globulin [Mass ratio] 0.8 {ratio} 0.9-2.4 [facility] Serum or plasma calcium jackson urement (mass/volume)Ordered By: Aidan Sparks on 05-17-2023 Calcium [Mass/Vol] 9.4 mg/dL 8.5-10.1 [facility] Serum or plasma creatinine m easurement (mass/volume)Ordered By: Aidan Sparks on 05-17-2023 Creatinine [Mass/Vol] 1.31 mg/dL 0.55-1.02 [facility] Comment on above: The validity of the calculated GFR & GFRAA in patients over 70 years has not been determined. Clinical correlation is essential. Serum or plasma urea nitroge n measurement (mass/volume)Ordered By: Aidan Sparks on 05-17-2023 Urea nitrogen [Mass/Vol] 17 mg/dL 7-18 [facility] Stool gastrointestinal hemog lobin detection by immunologic methodOrdered By: Aidan Sparks on 05-17-2023 Lower GI hemoglobin IA Ql (Stl) [facility] Lower GI hemoglobin IA Ql (Stl) [facility] Thin prep Papanicolaou smear with manual screeningOrdered By: Aidan Sparks on 05-17-2023 Thin prep Papanicolaou smear with manual screening 16 U/L 15-37 [facility] Thin prep Papanicolaou smear with manual screening 12 5-15 [facility] Culture, urineOrdered By: Jonathan Balbuena on 05-14-2023 Bacteria identified Cx Nom (U) Klebsiella pneumoniae sp pneum [facility] Bacteria identified Cx Nom (U) Klebsiella pneumoniae sp pneum [facility] Laboratory - Chemistry and C hemistry - challengeon 05-14-2023 Bilirubin Ql (U) Negative [facility] Glucose Ql (U) Negative [facility] Ketones Ql (U) Negative [facility] pH (U) 6.0 [pH] [facility] Specific gravity (U) [Rel density] 1.030 [facility] Urobilinogen (U) [Mass/Vol] 0.0787074 mg/dL [facility] Laboratory - Hematology and Cell countson 05-14-2023 Hemoglobin Ql (U) Hemolyzed [facility] Laboratory - Specimen inform ationon 05-14-2023 Clarity (U) Turbid [facility] Color (U) Yellow [facility] Laboratory - Urinalysison Nitrite Ql (U) Negative [facility] Protein Ql (U) 3+ [facility] No Panel Informationon 05-14 Urine Leukocytes Positive [facility] Urine Non-Hemolyzed Blood Large [facility] Absolute lymphocyte countOrd ered By: Nilton Rosa on 04-12-2023 Lymphocytes Auto (Unsp spec) [#/Vol] 1.42 10*3/uL 0.83-4.51 [facility] Basophil percentageOrdered B y: Nilton Rosa on 04-12-2023 Basophils/100 WBC (Bld) 0.2 % 0-1 [facility] Chloride [Moles/Vol] 109 mmol/L 98-107 [facility] Eosinophils/100 WBC (Bld) 0.3 % 0-5 [facility] Glucose [Mass/Vol] 125 mg/dL 74-106 [facility] Comment on above: Fasting Glucose resu lt from 100 to 125 mg/dL suggests IMPAIRED HOMEOSTASIS per A.D.A. criteria. Neutrophils (Bld) [#/Vol] 7.2 10*3/uL 2.0-7.7 [facility] Neutrophils/100 WBC (Bld) 76.4 % 47-70 [facility] Potassium [Moles/Vol] 3.8 mmol/L 3.5-5.1 [facility] Sodium [Moles/Vol] 141 mmol/L 136-145 [facility] WBC (Bld) [#/Vol] 9.4 10*3/uL 4.4-11.0 [facility] Blood erythrocytes count (nu mber/volume)Ordered By: Nilton Rosa on 04-12-2023 RBC (Bld) [#/Vol] 5.09 10*6/uL 4.2-5.4 [facility] Blood hemoglobin measurement (mass/volume)Ordered By: Nilton Rosa on 04-12-2023 Hemoglobin (Bld) [Mass/Vol] 15.5 g/dL 12.0-15. 0 [facility] Blood lymphocytes/100 leukoc ytesOrdered By: Nilton Rosa on 04-12-2023 Lymphocytes/100 WBC (Bld) 15.1 % 19-41 [facility] Blood monocytes/100 leukocyt esOrdered By: Nilton Rosa on 04-12-2023 Monocytes/100 WBC (Bld) 7.5 % 0-10 [facility] Blood platelet mean volumeOr dered By: Nilton Rosa on 04-12-2023 Platelet mean volume (Bld) [Entitic vol] 8.1 fL 6.2-12.0 [facility] Determination of erythrocyte mean corpuscular volume (MCV)Ordered By: Nilton Rosa on 04-12-2023 MCV (RBC) [Entitic vol] 95.5 fL 81-99 [facility] Hematocrit Auto (Bld) [Volum e fraction]Ordered By: Nilton Rosa on 04-12-2023 Hematocrit (Bld) [Volume fraction] 48.6 % 37-47 [facility] Laboratory - Chemistry and C hemistry - challengeOrdered By: Nilton Rosa on 04-12-2023 CO2 [Moles/Vol] 27.0 mmol/L 21.0-32.0 [facility] Free T4 [Mass/Vol] 1.08 ng/dL 0.76-1.46 [facility] Magnesium [Mass/Vol] 2.5 mg/dL 1.6-2.6 [facility] Natriuretic peptide B (Bld) [Mass/Vol] 354.3 pg/mL 0-100 [facility] Urea nitrogen/Creatinine [Mass ratio] 19.8 mg/mg 10-20 [facility] Laboratory - Hematology and Cell countsOrdered By: Nilton Rosa on 04-12-2023 Erythrocyte distribution width (RBC) [Entitic vol] 50.1 fL 35.1-43.9 [facility] Erythrocyte distribution width (RBC) [Ratio] 14.3 % 11.6-14.6 [facility] Immature granulocytes/100 WBC (Bld) 0.500 % 0.0-0.9 [facility] Comment on above: IG% - Immature Granu locytes (promyelocytes, myelocytes and metamyelocytes) > 1% indicates that a LEFT SHIFT is Present. MCH (RBC) [Entitic mass] 30.5 pg 27.0-32.0 [facility] Nucleated RBC/100 WBC (Bld) [Ratio] 0 % 0-5 [facility] MCHC Auto (RBC) [Mass/Vol]Or dered By: Nilton Rosa on 04-12-2023 MCHC (RBC) [Mass/Vol] 31.9 g/dL 32-36 [facility] No Panel InformationOrdered By: Nilton Rosa on 04-12-2023 Estimated GFR (MDRD) Amer 71 mL/min >60 [facility] Comment on above: GFR Calc Estimated GFR (MDRD) Non-Af Amer 59 mL/min >60 [facility] Comment on above: Non- GFR Calc Thyroid Stimulating Hormone (TSH) 1.09 uIU/mL 0.358-3.74 [facility] Platelets bldOrdered By: Joesph Rosa on 04-12-2023 Platelets (Bld) [#/Vol] 255 10*3/uL 150-450 [facility] Serum or plasma calcium jackson urement (mass/volume)Ordered By: Nilton Rosa on 04-12-2023 Calcium [Mass/Vol] 8.7 mg/dL 8.5-10.1 [facility] Serum or plasma creatinine m easurement (mass/volume)Ordered By: Nilton Rosa on 04-12-2023 Creatinine [Mass/Vol] 0.96 mg/dL 0.55-1.02 [facility] Comment on above: The validity of the calculated GFR & GFRAA in patients over 70 years has not been determined. Clinical correlation is essential. Serum or plasma urea nitroge n measurement (mass/volume)Ordered By: Nilton Rosa on 04-12-2023 Urea nitrogen [Mass/Vol] 19 mg/dL 7-18 [facility] Thin prep Papanicolaou smear with manual screeningOrdered By: Nilton Rosa on 04-12-2023 Thin prep Papanicolaou smear with manual screening 5 5-15 [facility] No Panel InformationOrdered By: Stan Ng on 03-09-2023 Giardia Antigen (DAVID) [facility] Stool Calprotectin 48 ug/g 0-120 [facility] Comment on above: Concentration Interp retation Follow-Up< 5 - 50 ug/g Normal None>50 -120 ug/g Borderline Re-evaluate in 4-6 weeks >120 ug/g Abnormal Repeat as clinically indicatedPerformed at: [facility] [place] [id number] Director: Rashad Kim PhD, Phone: [phone] at: [address] [id number] Director: Belinda Baker MD, Phone: [phone] Stool Neutral Fats Normal . [facility] Comment on above: Normal (<60 Droplets /HPF) Stool Pancreatic Elastase > 500 >200 [facility] Comment on above: Result Units: ug Leora st./g Severe Pancreatic Insufficiency: <100 Moderate Pancreatic Insufficiency: 100 - 200 Normal: >200Performed at: [address] [id number] Director: Belinda Baker MD, Phone: [phone] Ova and parasitesOrdered By: Stan Ng on 03-09-2023 Ova and parasites identified LM Nom (Unsp spec) [facility] Qualitative fecal fat or lip idsOrdered By: Stan Ng on 11-07-2023 Fat Ql (Stl) Normal . [facility] Comment on above: Normal (<100 Droplet s/HPF) Stool enteric pathogen panel by probe and target amplification methodOrdered By: Stan Ng on 03-09-2023 Gastrointestinal pathogens panel ANNA+probe (Stl) [facility] Stool lactoferrin detection by immunoassayOrdered By: Stan Ng on 03-09-2023 Lactoferrin IA Ql (Stl) [facility] Absolute lymphocyte countOrd ered By: Standoug Ng on 11-18-2022 Lymphocytes Auto (Unsp spec) [#/Vol] 1.54 10*3/uL 0.83-4.51 [facility] Albumin Elph [Mass/Vol]Order ed By: Stan Ng on 11-18-2022 Albumin [Mass/Vol] 3.4 g/dL 2.9-4.4 [facility] Atypical perinuclear antineu trophil cytoplasmic antibodies measurementOrdered By: Stan Ng on 11-18-2022 Neutrophil cytoplasmic Ab.perinuclear.atypical IF (S) [Titer] <1:20 titer Neg:<1:20 [facility] Comment on above: The atypical pANCA p attern has been observed in asignificant percentage of patients with ulcerative colitis,primary sclerosing cholangitis and autoimmune hepatitis.Performed at: - [facility] [id number] Director: Rashad Kim PhD, Phone: [phone] at: [facility] [address] [id number] Director: Belinda Baker MD, Phone: [phone] Basophil percentageOrdered B y: Standoug Ng on 11-18-2022 Basophil percentage < 0.2 AI 0.0-0.9 [facility] Basophils/100 WBC (Bld) 1.2 % 0-1 [facility] Bilirubin [Mass/Vol] 0.40 mg/dL 0.20-1.00 [facility] Comment on above: For patients on eltr ombopag therapy, use of Dimension [place] TBIL is not recommended. Chloride [Moles/Vol] 109 mmol/L 98-107 [facility] Eosinophils/100 WBC (Bld) 7.9 % 0-5 [facility] Glucose [Mass/Vol] 88 mg/dL 74-106 [facility] LDH [Catalytic activity/Vol] 179 U/L 84-246 [facility] Neutrophils (Bld) [#/Vol] 3.3 10*3/uL 2.0-7.7 [facility] Neutrophils/100 WBC (Bld) 55.4 % 47-70 [facility] Potassium [Moles/Vol] 4.0 mmol/L 3.5-5.1 [facility] Protein [Mass/Vol] 6.8 g/dL 6.4-8.2 [facility] Sodium [Moles/Vol] 141 mmol/L 136-145 [facility] WBC (Bld) [#/Vol] 6.0 10*3/uL 4.4-11.0 [facility] Blood erythrocytes count (nu mber/volume)Ordered By: Stan Ng on 11-18-2022 RBC (Bld) [#/Vol] 4.24 10*6/uL 4.2-5.4 [facility] Blood hemoglobin measurement (mass/volume)Ordered By: Stan Ng on 11-18-2022 Hemoglobin (Bld) [Mass/Vol] 12.9 g/dL 12.0-15. 0 [facility] Blood lymphocytes/100 leukoc ytesOrdered By: Stan Ng on 11-18-2022 Lymphocytes/100 WBC (Bld) 25.9 % 19-41 [facility] Blood monocytes/100 leukocyt esOrdered By: Stan Ng on 11-18-2022 Monocytes/100 WBC (Bld) 9.4 % 0-10 [facility] Blood platelet mean volumeOr dered By: Stan Ng on 11-18-2022 Platelet mean volume (Bld) [Entitic vol] 9.4 fL 6.2-12.0 [facility] Determination of erythrocyte mean corpuscular volume (MCV)Ordered By: Stan Ng on 11-18-2022 MCV (RBC) [Entitic vol] 99.1 fL 81-99 [facility] Erythrocyte sedimentation ra teOrdered By: Stan Ng on 11-18-2022 ESR (Bld) [Velocity] 10 mm/h 0-30 [facility] Hematocrit Auto (Bld) [Volum e fraction]Ordered By: Stan Ng on 11-18-2022 Hematocrit (Bld) [Volume fraction] 42.0 % 37-47 [facility] Interpretation of serum or p lasma protein pattern by immunofixation (narrative resultOrdered By: Stan Ng on 11-18-2022 Protein Fractions Immunofixation Harrison [Interp] See comment [facility] Comment on above: Result: Not Observed Laboratory - Chemistry and C hemistry - challengeOrdered By: Stan Ng on 11-18-2022 ALP [Catalytic activity/Vol] 83 U/L 45-117 [facility] ALT [Catalytic activity/Vol] 19 U/L 13-56 [facility] CO2 [Moles/Vol] 27.0 mmol/L 21.0-32.0 [facility] Urea nitrogen/Creatinine [Mass ratio] 9.8 mg/mg 10-20 [facility] Laboratory - Hematology and Cell countsOrdered By: Stan Ng on 11-18-2022 Erythrocyte distribution width (RBC) [Entitic vol] 49.1 fL 35.1-43.9 [facility] Erythrocyte distribution width (RBC) [Ratio] 13.5 % 11.6-14.6 [facility] Immature granulocytes/100 WBC (Bld) 0.200 % 0.0-0.9 [facility] Comment on above: IG% - Immature Granu locytes (promyelocytes, myelocytes and metamyelocytes) > 1% indicates that a LEFT SHIFT is Present. MCH (RBC) [Entitic mass] 30.4 pg 27.0-32.0 [facility] Nucleated RBC/100 WBC (Bld) [Ratio] 0 % 0-5 [facility] MCHC Auto (RBC) [Mass/Vol]Or dered By: Stan Ng on 11-18-2022 MCHC (RBC) [Mass/Vol] 30.7 g/dL 32-36 [facility] No Panel InformationOrdered By: Stan Ng on 11-18-2022 Addendum Document Comment . [facility] Comment on above: Protein electrophore sis scan will follow via computer,mail, or financial service representative delivery. Centromere B Antibody <0.2 AI 0.0-0.9 [facility] Endomysial IgA Antibody Negative Negative [facility] Estimated GFR (MDRD) Amer 67 mL/min >60 [facility] Comment on above: GFR Calc Estimated GFR (MDRD) Non-Af Amer 55 mL/min >60 [facility] Comment on above: Non- GFR Calc Immunoglobulin E 15 IU/mL 6-495 [facility] Miscellaneous Test See comment [facility] Comment on above: TEST RESULT LIMITSIB D Expanded Panel Shauna 7 units 0-50 Negative <45 Equivocal 45 - 50 Positive >50 ACCA 8 units 0-90 Negative <80 Equivocal 80 - 90 Positive >90 ALCA 2 units 0-60 Negative <55 Equivocal 55 - 60 Positive >60 AMCA 7 units 0-100 Negative < 90 Equivocal 90 - 100 Positive >100 This test was developed and its performance characteristics determined by [facility]. It has not been cleared or approved by the Food and Drug Administration. The FDA has determined that such clearance or approval is not necessary.Atypical pANCA Negative Negative Comments Pattern is not suggestive of Inflammatory Bowel Disease TESTING PERFORMED AT [facility]. ORIGINAL REPORT ON FILE IN LAB CONTAINS ADDITIONAL TEST SITE INFORMATION. LEAD NEURODIAGNOSTIC TECHNOLOGIST Antibody 0.5 AI 0.0-0.9 [facility] Platelets bldOrdered By: Lee Ng on 11-18-2022 Platelets (Bld) [#/Vol] 255 10*3/uL 150-450 [facility] Serum DNA double strand anti body assay (units/volume)Ordered By: Stan Ng on 11-18-2022 DNA double strand Ab Qn (S) [IU]/mL 0-9 [facility] Comment on above: Negative <5 Equivoca l 5 - 9 Positive >9 Serum Aida-1 antibody assay (u nits/volume)Ordered By: Stan Ng on 11-18-2022 Aida-1 extractable nuclear Ab Qn (S) <0.2 AI 0.0-0.9 [facility] Serum Scl-70 extractable nuc lear antibody assay (units/volume)Ordered By: Stan Ng on 11-18-2022 SCL-70 extractable nuclear Ab Qn (S) <0.2 AI 0.0-0.9 [facility] Serum Quispe extractable nucl ear antibody detectionOrdered By: Stan Ng on 11-18-2022 Quispe extractable nuclear Ab Ql (S) <0.2 AI 0.0-0.9 [facility] Serum [id number] measu rement by electrophoresisOrdered By: Stan Ng on 11-18-2022 Alpha 1 globulin Elph [Mass/Vol] 0.2 g/dL 0.0-0.4 [facility] Alpha 1 globulin Elph [Mass/Vol] 0.8 g/dL 0.4-1.0 [facility] Serum classic neutrophil cyt oplasmic antibody assay (units/volume)Ordered By: Stan Ng on 11-18-2022 Neutrophil cytoplasmic Ab.classic Qn (S) <1:20 titer Neg:<1:20 [facility] Serum globulin measurement ( mass/volume)Ordered By: Stan Ng on 11-18-2022 Globulin (S) [Mass/Vol] 2.5 g/dL 2.2-3.9 [facility] Serum or plasma C reactive p rotein measurement (mass/volume)Ordered By: Stan Ng on 11-18-2022 CRP [Mass/Vol] mg/L 0.0-3.0 [facility] Comment on above: C-Reactive Protein ( CRP) provides useful information for thediagnosis, therapy and monitoring of inflammatory processesand associated diseases. For the evaluation of Relative Riskfor Cardiovascular Disease, a High Sensitivity CRP (HSCRP)should be ordered. Serum or plasma IgA measurem ent (mass/volume)Ordered By: Stan Ng on 11-18-2022 IgA [Mass/Vol] 134 mg/dL 64-422 [facility] Serum or plasma IgG measurem ent (mass/volume)Ordered By: Stan Ng on 11-18-2022 IgG [Mass/Vol] 838 mg/dL 586-1602 [facility] Serum or plasma IgM measurem ent (mass/volume)Ordered By: Stan Ng on 11-18-2022 IgM [Mass/Vol] 19 mg/dL 26-217 [facility] Comment on above: Result confirmed on concentration. Serum or plasma albumin jackson urement (mass/volume)Ordered By: Stan Ng on 11-18-2022 Albumin [Mass/Vol] 3.2 g/dL 3.2-5.0 [facility] Serum or plasma albumin/glob ulin mass ratioOrdered By: Stan Ng on 11-18-2022 Albumin/Globulin [Mass ratio] 0.9 {ratio} 0.9-2.4 [facility] Serum or plasma beta globuli n measurement by electrophoresis (mass/volume)Ordered By: Stan Ng on 11-18-2022 Beta globulin Elph [Mass/Vol] 0.8 g/dL 0.7-1.3 [facility] Serum or plasma calcium jackson urement (mass/volume)Ordered By: Stan Ng on 11-18-2022 Calcium [Mass/Vol] 8.8 mg/dL 8.5-10.1 [facility] Serum or plasma creatinine m easurement (mass/volume)Ordered By: Stan Ng on 11-18-2022 Creatinine [Mass/Vol] 1.02 mg/dL 0.55-1.02 [facility] Comment on above: The validity of the calculated GFR & GFRAA in patients over 70 years has not been determined. Clinical correlation is essential. Serum or plasma gamma globul in measurement by electrophoresis (mass/volume)Ordered By: Stan Ng on 11-18-2022 Gamma globulin Elph [Mass/Vol] 0.6 g/dL 0.4-1.8 [facility] Serum or plasma immunoelectr ophoresis interpretation (nominal result)Ordered By: Stan Ng on 11-18-2022 Interpretation IEP [Interp] Comment . [facility] Comment on above: No monoclonality det ected. Serum or plasma urea nitroge n measurement (mass/volume)Ordered By: Stan Ng on 11-18-2022 Urea nitrogen [Mass/Vol] 10 mg/dL 7-18 [facility] Serum perinuclear neutrophil cytoplasmic antibody titer by immunofluorescenceOrdered By: Stan Ng on 11-18-2022 Neutrophil cytoplasmic Ab.perinuclear IF (S) [Titer] <1:20 titer Neg:<1:20 [facility] Comment on above: The presence of posi tive fluorescence exhibiting P-ANCA orC-ANCA patterns alone is not specific for the diagnosis ofWegener's Granulomatosis (WG) or microscopic polyangiitis.Decisions about treatment should not be based solely onANCA IFA results. The International ANCA Group Consensusrecommends follow up testing of positive sera with both MI-3 and MPO-ANCA enzyme immunoassays. As many as 5% serumsamples are positive only by EIA. Ref. AM J Clin Oubdqv2886;111:507-513. Serum tissue transglutaminas e IgA antibody assay (units/volume)Ordered By: Stan gN on 11-18-2022 tTG IgA Qn (S) <2 U/mL 0-3 [facility] Comment on above: Negative 0 - 3 Weak Positive 4 - 10 Positive >10 Tissue Transglutaminase (tTG) has been identified as the endomysial antigen. Studies have demonstr- ated that endomysial IgA antibodies have over 99% specificity for gluten sensitive enteropathy. Thin prep Papanicolaou smear with manual screeningOrdered By: Stan Ng on 11-18-2022 Thin prep Papanicolaou smear with manual screening 15 U/L 15-37 [facility] Thin prep Papanicolaou smear with manual screening 5 5-15 [facility] Thin prep Papanicolaou smear with manual screening 1.4 0.7-1.7 [facility] Total protein bloodOrdered B y: Stan gN on 11-18-2022 Protein [Mass/Vol] 5.9 g/dL 6.0-8.5 [facility] Basophil percentageOrdered B y: Stan Ng on 11-04-2022 Creatinine [Mass/Vol] 0.9 mg/dL 0.55-1.02 [facility] Laboratory - Chemistry and C hemistry - challengeOrdered By: Stan Ng on 11-04-2022 GFR/1.73 sq M.predicted among non-blacks MDRD (S/P/Bld) [Vol rate/Area] 60.0000 mL/min/{1.73_m2} >60 [facility] UA DIP, URINE (POC)on 2022 BILIRUBIN UA (POCT) Negative Negative [facility] CLARITY UA (POCT) Cloudy [facility] COLOR UA (POCT) Light yellow [facility] GLUCOSE UA (POCT) Negative Negative mg/dL [facility] HEMOGLOBIN/BLOOD UA (POCT) Trace-intact Abnormal Negativ e [facility] KETONE UA (POCT) Negative Negative mg/dL [facility] LEUKOCYTES UA (POCT) Moderate Abnormal Negative [facility] NITRITE UA (POCT) Negative Negative [facility] PH UA (POCT) 7.0 4.5 - 8.0 [facility] Protein Ql (U) Negative Negative mg/dL [facility] SPECIFIC GRAVITY UA (POCT) 1.010 1 .005 - 1.030 [facility] UROBILINOGEN UA (POCT) 0.2 E.U./dL Suzette l E.U./dL [facility] UA DIP, URINE (POC)on 2021 BILIRUBIN UA (POCT) Negative Negative [facility] CLARITY UA (POCT) Clear [facility] COLOR UA (POCT) Yellow [facility] GLUCOSE UA (POCT) Negative Negative mg/dL [facility] HEMOGLOBIN/BLOOD UA (POCT) Negative Negative [facility] KETONE UA (POCT) Trace Negative mg/dL [facility] LEUKOCYTES UA (POCT) Negative Negative [facility] NITRITE UA (POCT) Negative Negative [facility] PH UA (POCT) 6.0 4.5 - 8.0 [facility] Protein Ql (U) Negative Negative mg/dL [facility] SPECIFIC GRAVITY UA (POCT) 1.015 1 .005 - 1.030 [facility] UROBILINOGEN UA (POCT) 0.2 E.U./dL Suzette l E.U./dL [facility] Vital Signs Date Time Vital Sign Value Performing Clinician Faci lity 11-28-2024 08:25-0400 Diastolic blood pressure 79 mm[Hg] Rahul Esposito APRN.ASSISTED LIVING CARE MANAGER Work Phone: [facility] 11-28-2024 08:25-0400 Systolic blood pressure 134 mm[Hg] Rahul Esposito HYDROCHLORIC ACID OPERATOR.ASSISTED LIVING CARE MANAGER Work Phone: [facility] 11-28-2024 08:06-0400 Body mass index (BMI) [Ratio] 21.57 kg/m2 Rahul Esposito HYDROCHLORIC ACID OPERATOR.ASSISTED LIVING CARE MANAGER Work Phone: [facility] 11-28-2024 08:06-0400 Body weight 57 kg Rahul Esposito HYDROCHLORIC ACID OPERATOR.ASSISTED LIVING CARE MANAGER Work Phone: [facility] 11-28-2024 08:06-0400 Heart rate 50 /min Rahul Esposito APRN.ASSISTED LIVING CARE MANAGER Work Phone: [facility] 09-09-2024 19:03-0400 Body temperature 98.2 [degF] Dr. Bjorn Soares MD Work Phone: [facility] 09-09-2024 19:03-0400 Diastolic blood pressure 74 mm[Hg] Dr. Bjorn Soares MD Work Phone: [facility] 09-09-2024 19:03-0400 Heart rate 67 /min Dr. Bjorn Soares MD Work Phone: [facility] 09-09-2024 19:03-0400 Respiratory rate 14 /min Dr. Bjorn Soares MD Work Phone: [facility] 09-09-2024 19:03-0400 SaO2% (BldA) [Mass fraction] 100 % Dr. Bjorn Soares MD Work Phone: [facility] 09-09-2024 19:03-0400 Systolic blood pressure 132 mm[Hg] Dr. Bjorn Soares MD Work Phone: [facility] 09-09-2024 17:49-0400 Body height 162.[address] Bjorn Soares MD Work Phone: 8(313)[phone] [place] [address] 09-09-2024 17:49-0400 Body mass index (BMI) [Ratio] 22.3 kg/m2 Dr. Bjorn Soares MD Work Phone: 0(076)[phone] [place] [address] 09-09-2024 17:49-0400 Body weight 58.[address] Bjorn Soares MD Work Phone: 2(212)[phone] [place] [address] 09-04-2024 06:11-0400 Body mass index (BMI) [Ratio] 22.6 kg/m2 Dr. Bjorn Soares MD Work Phone: 0(546)[phone] [place] [address] 09-04-2024 06:11-0400 Body weight 59.[address] Bjorn Soares MD Work Phone: 8(128)389-090468 [place] [address] 09-04-2024 06:11-0400 Diastolic blood pressure 79 mm[Hg] Dr. Bjorn Soares MD Work Phone: 3(952)618-144668 [place] [address] 09-04-2024 06:11-0400 Heart rate 92 /min Dr. Bjorn Soares MD Work Phone: 5(057)449-954668 [place] [address] 09-04-2024 06:11-0400 Respiratory rate 18 /min Dr. Bjorn Soares MD Work Phone: 4(381)[phone] [place] [address] 09-04-2024 06:11-0400 SaO2% (BldA) [Mass fraction] 100 % Dr. Bjorn Soares MD Work Phone: 9(612)964-732068 [place] [address] 09-04-2024 06:11-0400 Systolic blood pressure 127 mm[Hg] Dr. Bjorn Soares MD Work Phone: 9(108)112-490868 [place] [address] 08-10-2024 08:07-0400 Body mass index (BMI) [Ratio] 21.7 kg/m2 Dr. Bjorn Soares MD Work Phone: 4(956)681-222268 [place] [address] 08-10-2024 08:07-0400 Body weight 57.[address] Bjorn Soares MD Work Phone: 1(036)[phone] [place] [address] 08-10-2024 08:07-0400 Diastolic blood pressure 85 mm[Hg] Dr. Bjorn Soares MD Work Phone: 9(682)725-958868 [place] [address] 08-10-2024 08:07-0400 Heart rate 88 /min Dr. Bjorn Soares MD Work Phone: 3([phone])336-791068 [place] [address] 08-10-2024 08:07-0400 Respiratory rate 16 /min Dr. Bjorn Soares MD Work Phone: 8(301)[phone] [place] [address] 08-10-2024 08:07-0400 SaO2% (BldA) [Mass fraction] 95 % Dr. Bjorn Soares MD Work Phone: 1(772)[phone] [place] [address] 08-10-2024 08:07-0400 Systolic blood pressure 144 mm[Hg] Dr. Bjorn Soares MD Work Phone: 3(127)[phone] [place] [address] 08-01-2024 14:16-0400 Body temperature 97.3 [degF] Dr. Bjorn Soares MD Work Phone: 0(666)[phone] [place] [address] 08-01-2024 14:16-0400 Diastolic blood pressure 68 mm[Hg] Dr. Bjorn Soares MD Work Phone: 4(415)568-898668 [place] [address] 08-01-2024 14:16-0400 Heart rate 65 /min Dr. Bjorn Soares MD Work Phone: 2(636)[phone] [place] [address] 08-01-2024 14:16-0400 Respiratory rate 18 /min Dr. Bjorn Soares MD Work Phone: 0(783)236-566568 [place] [address] 08-01-2024 14:16-0400 SaO2% (BldA) [Mass fraction] 96 % Dr. Bjorn Soares MD Work Phone: 0(553)[phone] [place] [address] 08-01-2024 14:16-0400 Systolic blood pressure 138 mm[Hg] Dr. Bjorn Soares MD Work Phone: 9(723)[phone] [place] [address] 08-01-2024 12:09-0400 Body height 162.[address] Bjorn Soares MD Work Phone: [facility] 08-01-2024 12:09-0400 Body mass index (BMI) [Ratio] 22.6 kg/m2 Dr. Bjorn Soares MD Work Phone: [facility] 08-01-2024 12:09-0400 Body weight 59.[address] Bjorn Soares MD Work Phone: [facility] 06-27-2024 09:48-0500 Body mass index (BMI) [Ratio] 22.18 kg/m2 Tony Soares MD Work Phone: [facility] 06-27-2024 09:48-0500 Body temperature 98.4 [degF] Tony Soares MD Work Phone: [facility] 06-27-2024 09:48-0500 Body weight 58.6 kg Tony Soares MD Work Phone: [facility] 06-27-2024 09:48-0500 Diastolic blood pressure 74 mm[Hg] Tony Soares MD Work Phone: [facility] 06-27-2024 09:48-0500 Heart rate 97 /min Tony Soares MD Work Phone: [facility] 06-27-2024 09:48-0500 Respiratory rate 16 /min Tony Soares MD Work Phone: [facility] 06-27-2024 09:48-0500 SaO2% (BldA) [Mass fraction] 99 % Tony Soares MD Work Phone: [facility] 06-27-2024 09:48-0500 Systolic blood pressure 136 mm[Hg] Tony Soares MD Work Phone: [facility] 06-18-2024 21:21-0500 Body mass index (BMI) [Ratio] 25.2 kg/m2 Dr. Bjorn Soares MD Work Phone: [facility] 06-18-2024 21:21-0500 Body temperature 97.7 [degF] Dr. Bjorn Soares MD Work Phone: 5(370)700-562468 [place] [address] 06-18-2024 21:21-0500 Body weight 66.[address] Bjorn Soares MD Work Phone: 0(458)748-805668 [place] [address] 06-18-2024 21:21-0500 Diastolic blood pressure 113 mm[Hg] Dr. Bjorn Soares MD Work Phone: 4(027)990-861168 [place] [address] 06-18-2024 21:21-0500 Heart rate 102 /min Dr. Bjorn Soares MD Work Phone: 1(203)587-335568 [place] [address] 06-18-2024 21:21-0500 Respiratory rate 18 /min Dr. Bjorn Soares MD Work Phone: 7(742)943-749568 [place] [address] 06-18-2024 21:21-0500 SaO2% (BldA) [Mass fraction] 94 % Dr. Bjorn Soares MD Work Phone: 6(232)711-303668 [place] [address] 06-18-2024 21:21-0500 Systolic blood pressure 124 mm[Hg] Dr. Bjorn Soares MD Work Phone: 3(993)623-291968 [place] [address] 06-18-2024 13:33-0500 Heart rate 69 /min Dr. Bjorn Soares MD Work Phone: 3(582)813-771768 [place] [address] 06-18-2024 13:33-0500 Respiratory rate 18 /min Dr. Bjorn Soares MD Work Phone: 2(111)891-143868 [place] [address] 06-18-2024 08:50-0500 SaO2% (BldA) [Mass fraction] 93 % Dr. Bjorn Soares MD Work Phone: 2(546)604-391268 [place] [address] 06-18-2024 08:40-0500 Body temperature 97.6 [degF] Dr. Bjorn Soares MD Work Phone: 0(487)176-042268 [place] [address] 06-18-2024 08:40-0500 Diastolic blood pressure 60 mm[Hg] Dr. Bjorn Soares MD Work Phone: 2(813)828-890168 [place] [address] 06-18-2024 08:40-0500 Systolic blood pressure 121 mm[Hg] Dr. Bjorn Soares MD Work Phone: [facility] 06-18-2024 07:15-0500 Inhaled oxygen flow rate 2 L/min Dr. Bjorn Soares MD Work Phone: [facility] 06-18-2024 04:01-0500 Body mass index (BMI) [Ratio] 25.2 kg/m2 Dr. Bjorn Soares MD Work Phone: [facility] 06-18-2024 04:01-0500 Body weight 66.[address] Bjorn Soares MD Work Phone: [facility] 05-16-2024 08:20-0500 Body height 162.6 cm Julia Barrow MD Work Phone: [facility] 05-16-2024 08:20-0500 Body mass index (BMI) [Ratio] 23.08 kg/m2 Julia Barrow MD Work Phone: [facility] 05-16-2024 08:20-0500 Body weight 61 kg Julia Barrow MD Work Phone: [facility] 05-16-2024 08:20-0500 Diastolic blood pressure 91 mm[Hg] Julia Barrow MD Work Phone: [facility] 05-16-2024 08:20-0500 Heart rate 55 /min Julia Barrow MD Work Phone: [facility] 05-16-2024 08:20-0500 Systolic blood pressure 164 mm[Hg] Julia Barrow MD Work Phone: [facility] 04-17-2024 13:50-0500 Body mass index (BMI) [Ratio] 23.5 kg/m2 Dr. Bjorn Soares MD Work Phone: [facility] 04-17-2024 13:50-0500 Body weight 62.[address] Bjorn Soares MD Work Phone: [facility] 04-17-2024 13:50-0500 Diastolic blood pressure 62 mm[Hg] Dr. Bjorn Soares MD Work Phone: [facility] 04-17-2024 13:50-0500 Heart rate 72 /min Dr. Bjorn Soares MD Work Phone: [facility] 04-17-2024 13:50-0500 Respiratory rate 16 /min Dr. Bjorn Soares MD Work Phone: [facility] 04-17-2024 13:50-0500 SaO2% (BldA) [Mass fraction] 97 % Dr. Bjorn Soares MD Work Phone: [facility] 04-17-2024 13:50-0500 Systolic blood pressure 135 mm[Hg] Dr. Bjorn Soares MD Work Phone: [facility] 04-10-2024 14:32-0500 Body mass index (BMI) [Ratio] 23.23 kg/m2 Drea Podlogar HYDROCHLORIC ACID OPERATOR.ASSISTED LIVING CARE MANAGER Work Phone: [facility] 04-10-2024 14:32-0500 Body weight 61.4 kg Drea Podlogar HYDROCHLORIC ACID OPERATOR.ASSISTED LIVING CARE MANAGER Work Phone: [facility] 04-10-2024 14:32-0500 Diastolic blood pressure 84 mm[Hg] Drea Podlogar HYDROCHLORIC ACID OPERATOR.ASSISTED LIVING CARE MANAGER Work Phone: [facility] 04-10-2024 14:32-0500 Heart rate 78 /min Drea Podlogar HYDROCHLORIC ACID OPERATOR.ASSISTED LIVING CARE MANAGER Work Phone: [facility] 04-10-2024 14:32-0500 Respiratory rate 18 /min Drea Podlogar HYDROCHLORIC ACID OPERATOR.ASSISTED LIVING CARE MANAGER Work Phone: [facility] 04-10-2024 14:32-0500 SaO2% (BldA) [Mass fraction] 94 % Drea Podlogar HYDROCHLORIC ACID OPERATOR.ASSISTED LIVING CARE MANAGER Work Phone: [facility] 04-10-2024 14:32-0500 Systolic blood pressure 138 mm[Hg] Drea Podlogar HYDROCHLORIC ACID OPERATOR.ASSISTED LIVING CARE MANAGER Work Phone: [facility] 04-05-2024 14:17-0500 Body temperature 97.9 [degF] Dr. Bjorn Soares MD Work Phone: [facility] 04-05-2024 14:17-0500 Diastolic blood pressure 68 mm[Hg] Dr. Bjorn Soares MD Work Phone: 5(712)850-915768 [place] [address] 04-05-2024 14:17-0500 Heart rate 79 /min Dr. Bjorn Soares MD Work Phone: 0(404)886-388863 [place] [address] 04-05-2024 14:17-0500 Respiratory rate 16 /min Dr. Bjorn Soares MD Work Phone: 8(022)889-801968 [place] [address] 04-05-2024 14:17-0500 SaO2% (BldA) [Mass fraction] 99 % Dr. Bjorn Soares MD Work Phone: 2(252)150-876463 [place] [address] 04-05-2024 14:17-0500 Systolic blood pressure 148 mm[Hg] Dr. Bjorn Soares MD Work Phone: 0(609)281-323263 [place] [address] 04-05-2024 10:05-0500 Body mass index (BMI) [Ratio] 22.1 kg/m2 Dr. Bjorn Soares MD Work Phone: [facility] 04-05-2024 10:05-0500 Body weight 58.[address] Bjorn Soares MD Work Phone: 8(340)113-592463 [place] [address] 04-05-2024 07:53-0500 Body mass index (BMI) [Ratio] 23.1 kg/m2 Tony Soares MD Work Phone: [facility] 04-05-2024 07:53-0500 Body weight 61.05 kg Tony Soares MD Work Phone: [facility] 04-05-2024 07:53-0500 Diastolic blood pressure 64 mm[Hg] Tony Soares MD Work Phone: [facility] 04-05-2024 07:53-0500 Heart rate 76 /min Tony Soares MD Work Phone: [facility] 04-05-2024 07:53-0500 Respiratory rate 16 /min Tony Soares MD Work Phone: [facility] 04-05-2024 07:53-0500 SaO2% (BldA) [Mass fraction] 99 % Tony Soares MD Work Phone: [facility] 04-05-2024 07:53-0500 Systolic blood pressure 126 mm[Hg] Tony Soares MD Work Phone: [facility] 01-26-2024 11:18-0400 Body height 162.6 cm Tony Soares MD Work Phone: [facility] 01-26-2024 11:18-0400 Body mass index (BMI) [Ratio] 24.2 kg/m2 Tony Soares MD Work Phone: [facility] 01-26-2024 11:18-0400 Body weight 63.96 kg Tony Soares MD Work Phone: [facility] 01-26-2024 11:18-0400 Diastolic blood pressure 60 mm[Hg] Tony Soares MD Work Phone: [facility] 01-26-2024 11:18-0400 Heart rate 77 /min Tony Soares MD Work Phone: [facility] 01-26-2024 11:18-0400 Respiratory rate 12 /min Tony Soares MD Work Phone: [facility] 01-26-2024 11:18-0400 SaO2% (BldA) [Mass fraction] 95 % Tony Soares MD Work Phone: [facility] 01-26-2024 11:18-0400 Systolic blood pressure 112 mm[Hg] Tony Soares MD Work Phone: [facility] 11-30-2023 13:04-0400 Body mass index (BMI) [Ratio] 24.75 kg/m2 Tony Soares MD Work Phone: [facility] 11-30-2023 13:04-0400 Body temperature 98.29 [degF] Tony Soares MD Work Phone: [facility] 11-30-2023 13:04-0400 Body weight 65.41 kg Tony Soares MD Work Phone: [facility] 11-30-2023 13:04-0400 Diastolic blood pressure 66 mm[Hg] Tony Soares MD Work Phone: [facility] 11-30-2023 13:04-0400 Heart rate 65 /min Tony Soares MD Work Phone: [facility] 11-30-2023 13:04-0400 Respiratory rate 16 /min Tony Soares MD Work Phone: [facility] 11-30-2023 13:04-0400 SaO2% (BldA) [Mass fraction] 97 % Tony Soares MD Work Phone: [facility] 11-30-2023 13:04-0400 Systolic blood pressure 130 mm[Hg] Tony Soares MD Work Phone: [facility] 10-15-2023 13:32-0400 Body mass index (BMI) [Ratio] 24.03 kg/m2 Kandi Suppan HYDROCHLORIC ACID OPERATOR.BODY HANGER Work Phone: [facility] 10-15-2023 13:32-0400 Body weight 63.5 kg Kandi Suppan HYDROCHLORIC ACID OPERATOR.BODY HANGER Work Phone: [facility] 10-15-2023 13:32-0400 Diastolic blood pressure 74 mm[Hg] Kandi Suppan HYDROCHLORIC ACID OPERATOR.BODY HANGER Work Phone: [facility] 10-15-2023 13:32-0400 Heart rate 93 /min Kandi Suppan HYDROCHLORIC ACID OPERATOR.BODY HANGER Work Phone: [facility] 10-15-2023 13:32-0400 Respiratory rate 16 /min Kandi Suppan HYDROCHLORIC ACID OPERATOR.BODY HANGER Work Phone: [facility] 10-15-2023 13:32-0400 SaO2% (BldA) [Mass fraction] 95 % Kandi Kam HYDROCHLORIC ACID OPERATOR.BODY HANGER Work Phone: [facility] 10-15-2023 13:32-0400 Systolic blood pressure 128 mm[Hg] Kandi Kam HYDROCHLORIC ACID OPERATOR.BODY HANGER Work Phone: [facility] 09-13-2023 14:05-0400 Body mass index (BMI) [Ratio] 24.41 kg/m2 Tony Soares MD Work Phone: [facility] 09-13-2023 14:05-0400 Body weight 64.5 kg Tony Soares MD Work Phone: [facility] 09-13-2023 14:05-0400 Diastolic blood pressure 70 mm[Hg] Tony Soares MD Work Phone: [facility] 09-13-2023 14:05-0400 Heart rate 90 /min Tony Soares MD Work Phone: [facility] 09-13-2023 14:05-0400 Respiratory rate 16 /min Tony Soares MD Work Phone: [facility] 09-13-2023 14:05-0400 SaO2% (BldA) [Mass fraction] 96 % Tony Soares MD Work Phone: [facility] 09-13-2023 14:05-0400 Systolic blood pressure 122 mm[Hg] Tony Soares MD Work Phone: [facility] 09-06-2023 15:53-0400 Body temperature 98.01 [degF] Tony Soares MD Work Phone: [facility] 09-06-2023 15:53-0400 Diastolic blood pressure 70 mm[Hg] Tony Soares MD Work Phone: [facility] 09-06-2023 15:53-0400 Heart rate 88 /min Tony Soares MD Work Phone: [facility] 09-06-2023 15:53-0400 Respiratory rate 16 /min Tony Soares MD Work Phone: [facility] 09-06-2023 15:53-0400 SaO2% (BldA) [Mass fraction] 96 % Tony Soares MD Work Phone: [facility] 09-06-2023 15:53-0400 Systolic blood pressure 136 mm[Hg] Tony Soares MD Work Phone: [facility] 09-02-2023 15:50-0400 Body mass index (BMI) [Ratio] 23.58 kg/m2 Tony Soares MD Work Phone: [facility] 09-02-2023 15:50-0400 Body temperature 98.91 [degF] Tony Soares MD Work Phone: [facility] 09-02-2023 15:50-0400 Body weight 62.32 kg Tony Soares MD Work Phone: [facility] 09-02-2023 15:50-0400 Diastolic blood pressure 82 mm[Hg] Tony Soares MD Work Phone: [facility] 09-02-2023 15:50-0400 Heart rate 77 /min Tony Soares MD Work Phone: [facility] 09-02-2023 15:50-0400 Respiratory rate 16 /min Tony Soares MD Work Phone: [facility] 09-02-2023 15:50-0400 SaO2% (BldA) [Mass fraction] 95 % Tony Soares MD Work Phone: [facility] 09-02-2023 15:50-0400 Systolic blood pressure 134 mm[Hg] Tony Soares MD Work Phone: [facility] 08-25-2023 15:08-0400 Body height 162.[address] Bjorn Soares Work Phone: [facility] 08-25-2023 15:08-0400 Body mass index (BMI) [Ratio] 23.8 kg/m2 Dr. Bjorn Soares Work Phone: [facility] 08-25-2023 15:08-0400 Body temperature 100.4 [degF] Dr. Bjorn Soares Work Phone: [facility] 08-25-2023 15:08-0400 Body weight 63.[address] Bjorn Soares Work Phone: [facility] 08-25-2023 15:08-0400 Heart rate 85 /min Dr. Bjorn Soares Work Phone: [facility] 08-25-2023 15:08-0400 Respiratory rate 17 /min Dr. Bjorn Soares Work Phone: [facility] 08-25-2023 15:08-0400 SaO2% (BldA) [Mass fraction] 98 % Dr. Bjorn Soares Work Phone: [facility] 07-21-2023 12:14-0400 Body weight 62.96 kg Drea Podlogar HYDROCHLORIC ACID OPERATOR.ASSISTED LIVING CARE MANAGER Work Phone: [facility] 07-21-2023 12:14-0400 Diastolic blood pressure 78 mm[Hg] Drea Podlogar HYDROCHLORIC ACID OPERATOR.ASSISTED LIVING CARE MANAGER Work Phone: [facility] 07-21-2023 12:14-0400 Heart rate 86 /min Drea Podlogar HYDROCHLORIC ACID OPERATOR.ASSISTED LIVING CARE MANAGER Work Phone: [facility] 07-21-2023 12:14-0400 Respiratory rate 18 /min Drea Podlogar HYDROCHLORIC ACID OPERATOR.ASSISTED LIVING CARE MANAGER Work Phone: [facility] 07-21-2023 12:14-0400 SaO2% (BldA) [Mass fraction] 97 % Drea Podlogar HYDROCHLORIC ACID OPERATOR.ASSISTED LIVING CARE MANAGER Work Phone: [facility] 07-21-2023 12:14-0400 Systolic blood pressure 124 mm[Hg] Drea Podlogar HYDROCHLORIC ACID OPERATOR.ASSISTED LIVING CARE MANAGER Work Phone: [facility] 07-09-2023 08:22-0500 Body weight 61.96 kg Tony Soares MD Work Phone: [facility] 07-09-2023 08:22-0500 Diastolic blood pressure 68 mm[Hg] Tony Soares MD Work Phone: [facility] 07-09-2023 08:22-0500 Heart rate 80 /min Tony Soares MD Work Phone: [facility] 07-09-2023 08:22-0500 Respiratory rate 16 /min Tony Soares MD Work Phone: [facility] 07-09-2023 08:22-0500 SaO2% (BldA) [Mass fraction] 98 % Tony Soares MD Work Phone: [facility] 07-09-2023 08:22-0500 Systolic blood pressure 126 mm[Hg] Tony Soares MD Work Phone: [facility] 07-02-2023 08:46-0500 Body weight 62.6 kg Tony Soares MD Work Phone: [facility] 07-02-2023 08:46-0500 Diastolic blood pressure 70 mm[Hg] Tony Soares MD Work Phone: [facility] 07-02-2023 08:46-0500 Heart rate 72 /min Tony Soares MD Work Phone: [facility] 07-02-2023 08:46-0500 Respiratory rate 16 /min Tony Soares MD Work Phone: [facility] 07-02-2023 08:46-0500 SaO2% (BldA) [Mass fraction] 98 % Tony Soares MD Work Phone: [facility] 07-02-2023 08:46-0500 Systolic blood pressure 126 mm[Hg] Tony Soares MD Work Phone: [facility] 06-30-2023 08:51-0500 Body height 162.[address] Bjorn Soares Work Phone: 6(594)351-732568 [place] [address] 06-30-2023 08:51-0500 Body mass index (BMI) [Ratio] 23.9 kg/m2 Dr. Bjorn Soares Work Phone: 6(030)222-672768 [place] [address] 06-30-2023 08:51-0500 Body temperature 96.5 [degF] Dr. Bjorn Soares Work Phone: 1(024)878-391868 [place] [address] 06-30-2023 08:51-0500 Body weight 63.[address] Bjorn Soares Work Phone: 1(309)366-130768 [place] [address] 06-30-2023 08:51-0500 Diastolic blood pressure 102 mm[Hg] Dr. Bjorn Soares Work Phone: 9(245)944-157268 [place] [address] 06-30-2023 08:51-0500 Heart rate 93 /min Dr. Bjorn Soares Work Phone: 9(599)632-845068 [place] [address] 06-30-2023 08:51-0500 Respiratory rate 16 /min Dr. Bjorn Soares Work Phone: 0(811)429-653568 [place] [address] 06-30-2023 08:51-0500 SaO2% (BldA) [Mass fraction] 94 % Dr. Bjorn Soares Work Phone: 5(722)396-640768 [place] [address] 06-30-2023 08:51-0500 Systolic blood pressure 136 mm[Hg] Dr. Bjorn Soares Work Phone: 6(860)008-936268 [place] [address] 06-01-2023 08:57-0500 Body mass index (BMI) [Ratio] 23.8 kg/m2 Dr. Bjorn Soares Work Phone: 9(577)636-757768 [place] [address] 06-01-2023 08:57-0500 Body weight 63.[address] Bjorn Soares Work Phone: 8(460)577-319668 [place] [address] 06-01-2023 08:57-0500 Diastolic blood pressure 69 mm[Hg] Dr. Bjorn Soares Work Phone: 9(478)742-861568 [place] [address] 06-01-2023 08:57-0500 Heart rate 89 /min Dr. Bjorn Soares Work Phone: 4(691)105-309268 [place] [address] 06-01-2023 08:57-0500 Respiratory rate 16 /min Dr. Bjorn Soares Work Phone: 6(413)333-310768 [place] [address] 06-01-2023 08:57-0500 Systolic blood pressure 108 mm[Hg] Dr. Bjorn Soares Work Phone: 2(004)082-187968 [place] [address] 05-26-2023 13:24-0500 Body temperature 97.8 [degF] Dr. Bjorn Soares Work Phone: 2(574)107-150868 [place] [address] 05-26-2023 13:24-0500 Diastolic blood pressure 62 mm[Hg] Dr. Bjorn Soares Work Phone: 4(464)439-386968 [place] [address] 05-26-2023 13:24-0500 Heart rate 92 /min Dr. Bjorn Soares Work Phone: 3(950)441-911268 [place] [address] 05-26-2023 13:24-0500 Respiratory rate 16 /min Dr. Bjorn Soares Work Phone: 0(021)518-943068 [place] [address] 05-26-2023 13:24-0500 SaO2% (BldA) [Mass fraction] 96 % Dr. Bjorn Soares Work Phone: 9(692)319-262868 [place] [address] 05-26-2023 13:24-0500 Systolic blood pressure 118 mm[Hg] Dr. Bjorn Soares Work Phone: 1(068)815-824668 [place] [address] 05-17-2023 21:03-0500 Body temperature 97.2 [degF] Dr. Bjorn Soares Work Phone: 1(226)182-707568 [place] [address] 05-17-2023 21:03-0500 Diastolic blood pressure 61 mm[Hg] Dr. Bjorn Soares Work Phone: 7(300)801-219368 [place] [address] 05-17-2023 21:03-0500 Heart rate 109 /min Dr. Bjorn Soares Work Phone: 1(213)868-589868 [place] [address] 05-17-2023 21:03-0500 Respiratory rate 15 /min Dr. Bjorn Soares Work Phone: 2(075)497-836463 [place] [address] 05-17-2023 21:03-0500 SaO2% (BldA) [Mass fraction] 94 % Dr. Bjorn Soares Work Phone: 0(164)869-647868 [place] [address] 05-17-2023 21:03-0500 Systolic blood pressure 122 mm[Hg] Dr. Bjorn Soares Work Phone: 5(056)626-287468 [place] [address] 05-17-2023 19:36-0500 Body mass index (BMI) [Ratio] 24.7 kg/m2 Dr. Bjorn Soares Work Phone: 2(218)877-734568 [place] [address] 05-17-2023 19:36-0500 Body weight 65.[address] Bjorn Soares Work Phone: 2(004)542-220368 [place] [address] 05-17-2023 17:02-0500 Body height 162.[address] Bjorn Soares Work Phone: 7(462)000-145268 [place] [address] 05-14-2023 09:10-0500 Body temperature 97.8 [degF] Dr. Bjorn Soares Work Phone: 3(689)565-163368 [place] [address] 05-14-2023 09:10-0500 Diastolic blood pressure 62 mm[Hg] Dr. Bjorn Soares Work Phone: 2(090)387-493468 [place] [address] 05-14-2023 09:10-0500 Heart rate 50 /min Dr. Bjorn Soares Work Phone: 7(254)513-249568 [place] [address] 05-14-2023 09:10-0500 Respiratory rate 16 /min Dr. Bjorn Soares Work Phone: 6(948)696-501368 [place] [address] 05-14-2023 09:10-0500 SaO2% (BldA) [Mass fraction] 94 % Dr. Bjorn Soares Work Phone: 4(479)312-436668 [place] [address] 05-14-2023 09:10-0500 Systolic blood pressure 104 mm[Hg] Dr. Bjorn Soares Work Phone: 0(180)205-279968 [place] [address] 04-12-2023 14:09-0500 Body height 162.[address] Bjorn Soares Work Phone: 3(356)036-303868 [place] [address] 04-12-2023 14:09-0500 Body mass index (BMI) [Ratio] 25.2 kg/m2 Dr. Bjorn Soares Work Phone: 1(362)354-507668 [place] [address] 04-12-2023 14:09-0500 Body weight 66.[address] Bjorn Soares Work Phone: 4(774)004-901968 [place] [address] 04-12-2023 14:09-0500 Diastolic blood pressure 80 mm[Hg] Dr. Bjorn Soares Work Phone: 3(878)223-387268 [place] [address] 04-12-2023 14:09-0500 Heart rate 77 /min Dr. Bjorn Soares Work Phone: 6(613)709-396468 [place] [address] 04-12-2023 14:09-0500 Respiratory rate 18 /min Dr. Bjorn Soares Work Phone: 0(474)280-645068 [place] [address] 04-12-2023 14:09-0500 Systolic blood pressure 141 mm[Hg] Dr. Bjorn Soares Work Phone: 6(557)326-346268 [place] [address] 04-03-2023 10:29-0500 Body mass index (BMI) [Ratio] 24.5 kg/m2 Dr. Bjorn Soares Work Phone: 3(666)576-726668 [place] [address] 04-03-2023 10:29-0500 Body temperature 98.4 [degF] Dr. Bjorn Soares Work Phone: 0(459)730-079368 [place] [address] 04-03-2023 10:29-0500 Body weight 64.[address] Bjorn Soares Work Phone: 2(926)141-990668 [place] [address] 04-03-2023 10:29-0500 Diastolic blood pressure 85 mm[Hg] Dr. Bjorn Soares Work Phone: 1(346)627-792263 [place] [address] 04-03-2023 10:29-0500 Heart rate 71 /min Dr. Bjorn Soares Work Phone: 6(456)085-349563 [place] [address] 04-03-2023 10:29-0500 Respiratory rate 16 /min Dr. Bjorn Soares Work Phone: [facility] 04-03-2023 10:29-0500 SaO2% (BldA) [Mass fraction] 93 % Dr. Bjorn Soares Work Phone: [facility] 04-03-2023 10:29-0500 Systolic blood pressure 145 mm[Hg] Dr. Bjorn Soares Work Phone: [facility] 03-31-2023 10:31-0500 Body temperature 98.29 [degF] Drea Podlogar HYDROCHLORIC ACID OPERATOR.ASSISTED LIVING CARE MANAGER Work Phone: [facility] 03-31-2023 10:31-0500 Body weight 67.31 kg Drea Podlogar HYDROCHLORIC ACID OPERATOR.ASSISTED LIVING CARE MANAGER Work Phone: [facility] 03-31-2023 10:31-0500 Diastolic blood pressure 84 mm[Hg] Drea Podlogar HYDROCHLORIC ACID OPERATOR.ASSISTED LIVING CARE MANAGER Work Phone: [facility] 03-31-2023 10:31-0500 Heart rate 95 /min Drea Podlogar HYDROCHLORIC ACID OPERATOR.ASSISTED LIVING CARE MANAGER Work Phone: [facility] 03-31-2023 10:31-0500 Respiratory rate 20 /min Drea Podlogar HYDROCHLORIC ACID OPERATOR.ASSISTED LIVING CARE MANAGER Work Phone: [facility] 03-31-2023 10:31-0500 SaO2% (BldA) [Mass fraction] 98 % Drea Podlogar HYDROCHLORIC ACID OPERATOR.ASSISTED LIVING CARE MANAGER Work Phone: [facility] 03-31-2023 10:31-0500 Systolic blood pressure 138 mm[Hg] Drea Podlogar HYDROCHLORIC ACID OPERATOR.ASSISTED LIVING CARE MANAGER Work Phone: [facility] 03-15-2023 13:47-0500 Body weight 68.58 kg Tony Soares MD Work Phone: [facility] 03-15-2023 13:47-0500 Diastolic blood pressure 74 mm[Hg] Tony Soares MD Work Phone: [facility] 03-15-2023 13:47-0500 Heart rate 77 /min Tony oSares MD Work Phone: [facility] 03-15-2023 13:47-0500 Respiratory rate 16 /min Tony Soares MD Work Phone: [facility] 03-15-2023 13:47-0500 SaO2% (BldA) [Mass fraction] 97 % Tony Soares MD Work Phone: [facility] 03-15-2023 13:47-0500 Systolic blood pressure 118 mm[Hg] Tony Soares MD Work Phone: [facility] 03-05-2023 18:35-0400 Body weight 67.5 kg Drea Podlogar HYDROCHLORIC ACID OPERATOR.ASSISTED LIVING CARE MANAGER Work Phone: [facility] 03-05-2023 18:35-0400 Diastolic blood pressure 68 mm[Hg] Drea Podlogar HYDROCHLORIC ACID OPERATOR.ASSISTED LIVING CARE MANAGER Work Phone: [facility] 03-05-2023 18:35-0400 Heart rate 64 /min Drea Podlogar HYDROCHLORIC ACID OPERATOR.ASSISTED LIVING CARE MANAGER Work Phone: [facility] 03-05-2023 18:35-0400 Respiratory rate 16 /min Drea Podlogar HYDROCHLORIC ACID OPERATOR.ASSISTED LIVING CARE MANAGER Work Phone: [facility] 03-05-2023 18:35-0400 SaO2% (BldA) [Mass fraction] 98 % Drea Podlogar HYDROCHLORIC ACID OPERATOR.ASSISTED LIVING CARE MANAGER Work Phone: [facility] 03-05-2023 18:35-0400 Systolic blood pressure 140 mm[Hg] Drea Podlogar HYDROCHLORIC ACID OPERATOR.ASSISTED LIVING CARE MANAGER Work Phone: [facility] 02-17-2023 08:19-0400 Body temperature 97.1 [degF] Dr. Bjorn Soares Work Phone: [facility] 02-17-2023 08:19-0400 Diastolic blood pressure 60 mm[Hg] Dr. Bjorn Soares Work Phone: [facility] 02-17-2023 08:19-0400 Heart rate 62 /min Dr. Bjorn Soares Work Phone: 5(036)656-062468 [place] [address] 02-17-2023 08:19-0400 Respiratory rate 12 /min Dr. Bjorn Soares Work Phone: 0(254)243-463368 [place] [address] 02-17-2023 08:19-0400 SaO2% (BldA) [Mass fraction] 100 % Dr. Bjorn Soares Work Phone: 0(373)128-935668 [place] [address] 02-17-2023 08:19-0400 Systolic blood pressure 114 mm[Hg] Dr. Bjorn Soares Work Phone: 5(686)042-675668 [place] [address] 02-17-2023 07:19-0400 Body height 162.[address] Bjorn Soares Work Phone: 5(450)086-975268 [place] [address] 02-17-2023 07:19-0400 Body mass index (BMI) [Ratio] 25.2 kg/m2 Dr. Bjorn Soares Work Phone: 7(990)781-704968 [place] [address] 02-17-2023 07:19-0400 Body weight 66.[address] Bjorn Soares Work Phone: 4(933)169-219568 [place] [address] 02-08-2023 08:01-0400 Body weight 65.77 kg Tony Soares MD Work Phone: 9(892)500-028843 [place] [address] 02-08-2023 08:01-0400 Diastolic blood pressure 60 mm[Hg] Tony Soares MD Work Phone: 3(179)974-919396 [place] [address] 02-08-2023 08:01-0400 Heart rate 60 /min Tony Soares MD Work Phone: [facility] 02-08-2023 08:01-0400 Respiratory rate 16 /min Tony Soares MD Work Phone: [facility] 02-08-2023 08:01-0400 SaO2% (BldA) [Mass fraction] 96 % Tony Soares MD Work Phone: [facility] 02-08-2023 08:01-0400 Systolic blood pressure 104 mm[Hg] Tony Soares MD Work Phone: 9(246)285-241396 [place] [address] 11-12-2022 12:49-0400 Body temperature 97.5 [degF] Dr. Bjorn Soares Work Phone: 2(098)611-536568 [place] [address] 11-12-2022 12:49-0400 Diastolic blood pressure 90 mm[Hg] Dr. Bjorn Soares Work Phone: 3(510)395-479368 [place] [address] 11-12-2022 12:49-0400 Heart rate 66 /min Dr. Bjorn Soares Work Phone: 3(742)778-401168 [place] [address] 11-12-2022 12:49-0400 Respiratory rate 16 /min Dr. Bjorn Soares Work Phone: 9(009)273-715768 [place] [address] 11-12-2022 12:49-0400 SaO2% (BldA) [Mass fraction] 96 % Dr. jBorn Soares Work Phone: 1(470)107-196368 [place] [address] 11-12-2022 12:49-0400 Systolic blood pressure 120 mm[Hg] Dr. Bjorn Soares Work Phone: 3(660)908-940568 [place] [address] 11-12-2022 11:08-0400 Body height 162.[address] Bjorn Soares Work Phone: 8(990)507-130468 [place] [address] 11-12-2022 11:08-0400 Body mass index (BMI) [Ratio] 25 kg/m2 Dr. Bjorn Soares Work Phone: 8(469)323-780168 [place] [address] 11-12-2022 11:08-0400 Body weight [address] Bjorn Soares Work Phone: 2(228)025-354468 [place] [address] 11-10-2022 11:14-0400 Diastolic blood pressure 53 mm[Hg] Dr. Bjorn Soares Work Phone: 5(142)613-443968 [place] [address] 11-10-2022 11:14-0400 Heart rate 61 /min Dr. Bjorn Soares Work Phone: 2(659)459-583468 [place] [address] 11-10-2022 11:14-0400 Systolic blood pressure 83 mm[Hg] Dr. Bjorn Soares Work Phone: [facility] 11-10-2022 10:45-0400 Body height 162.[address] Bjorn Soares Work Phone: [facility] 11-10-2022 10:45-0400 Body mass index (BMI) [Ratio] 24.7 kg/m2 Dr. Bjorn Soares Work Phone: [facility] 11-10-2022 10:45-0400 Body weight 65.[address] Bjorn Soares Work Phone: [facility] 11-10-2022 10:45-0400 Respiratory rate 18 /min Dr. Bjorn Soares Work Phone: [facility] 10-14-2022 15:46-0400 Body temperature 98.6 [degF] Drea Podlogar HYDROCHLORIC ACID OPERATOR.ASSISTED LIVING CARE MANAGER Work Phone: [facility] 10-14-2022 15:46-0400 Body weight 67.77 kg Drea Podlogar HYDROCHLORIC ACID OPERATOR.ASSISTED LIVING CARE MANAGER Work Phone: [facility] 10-14-2022 15:46-0400 Diastolic blood pressure 68 mm[Hg] Drea Podlogar HYDROCHLORIC ACID OPERATOR.ASSISTED LIVING CARE MANAGER Work Phone: [facility] 10-14-2022 15:46-0400 Heart rate 76 /min Drea Podlogar HYDROCHLORIC ACID OPERATOR.ASSISTED LIVING CARE MANAGER Work Phone: [facility] 10-14-2022 15:46-0400 Respiratory rate 16 /min Drea Podlogar HYDROCHLORIC ACID OPERATOR.ASSISTED LIVING CARE MANAGER Work Phone: [facility] 10-14-2022 15:46-0400 SaO2% (BldA) [Mass fraction] 96 % Drea Podlogar HYDROCHLORIC ACID OPERATOR.ASSISTED LIVING CARE MANAGER Work Phone: [facility] 10-14-2022 15:46-0400 Systolic blood pressure 130 mm[Hg] Drea Podlogar HYDROCHLORIC ACID OPERATOR.ASSISTED LIVING CARE MANAGER Work Phone: [facility] 09-07-2022 13:57-0400 Body weight 67.13 kg Tony Soares MD Work Phone: [facility] 09-07-2022 13:57-0400 Diastolic blood pressure 78 mm[Hg] Tony Soares MD Work Phone: [facility] 09-07-2022 13:57-0400 Heart rate 72 /min Tony Soares MD Work Phone: [facility] 09-07-2022 13:57-0400 Respiratory rate 14 /min Tony Soares MD Work Phone: [facility] 09-07-2022 13:57-0400 Systolic blood pressure 136 mm[Hg] Tony Soares MD Work Phone: [facility] 03-04-2022 13:31-0400 Body weight 66.22 kg Drea Podlogar HYDROCHLORIC ACID OPERATOR.ASSISTED LIVING CARE MANAGER Work Phone: [facility] 03-04-2022 13:31-0400 Diastolic blood pressure 68 mm[Hg] Drea Podlogar HYDROCHLORIC ACID OPERATOR.ASSISTED LIVING CARE MANAGER Work Phone: [facility] 03-04-2022 13:31-0400 Heart rate 78 /min Drea Podlogar HYDROCHLORIC ACID OPERATOR.ASSISTED LIVING CARE MANAGER Work Phone: [facility] 03-04-2022 13:31-0400 Respiratory rate 16 /min Drea Podlogar HYDROCHLORIC ACID OPERATOR.ASSISTED LIVING CARE MANAGER Work Phone: [facility] 03-04-2022 13:31-0400 SaO2% (BldA) [Mass fraction] 95 % Drea Podlogar HYDROCHLORIC ACID OPERATOR.ASSISTED LIVING CARE MANAGER Work Phone: [facility] 03-04-2022 13:31-0400 Systolic blood pressure 138 mm[Hg] Drea Podlogar HYDROCHLORIC ACID OPERATOR.ASSISTED LIVING CARE MANAGER Work Phone: [facility] 01-03-2022 12:29-0400 Body temperature 98.2 [degF] Celia David HYDROCHLORIC ACID OPERATOR.ASSISTED LIVING CARE MANAGER Work Phone: [facility] 01-03-2022 12:29-0400 Body weight 66.68 kg Celia David ALVIN.ASSISTED LIVING CARE MANAGER Work Phone: [facility] 01-03-2022 12:29-0400 Diastolic blood pressure 68 mm[Hg] Celia Frankie ESQUIVEL.ASSISTED LIVING CARE MANAGER Work Phone: [facility] 01-03-2022 12:29-0400 Heart rate 65 /min Celialawrence David APRN.ASSISTED LIVING CARE MANAGER Work Phone: [facility] 01-03-2022 12:29-0400 Respiratory rate 16 /min Celia David ALVIN.ASSISTED LIVING CARE MANAGER Work Phone: [facility] 01-03-2022 12:29-0400 SaO2% (BldA) [Mass fraction] 97 % Celia Frankie ESQUIVEL.ASSISTED LIVING CARE MANAGER Work Phone: [facility] 01-03-2022 12:29-0400 Systolic blood pressure 112 mm[Hg] Celia Frankie ESQUIVEL.ASSISTED LIVING CARE MANAGER Work Phone: [facility] 12-22-2021 16:32-0400 Body temperature 98.6 [degF] Tony Soares MD Work Phone: [facility] 12-22-2021 16:32-0400 Diastolic blood pressure 60 mm[Hg] Tony Soares MD Work Phone: [facility] 12-22-2021 16:32-0400 Heart rate 67 /min Tony Soares MD Work Phone: [facility] 12-22-2021 16:32-0400 Respiratory rate 16 /min Tony Soares MD Work Phone: [facility] 12-22-2021 16:32-0400 SaO2% (BldA) [Mass fraction] 99 % Tony Soares MD Work Phone: [facility] 12-22-2021 16:32-0400 Systolic blood pressure 122 mm[Hg] Tony Soares MD Work Phone: [facility] 12-18-2021 14:36-0400 Body temperature 98.8 [degF] Tony Soares MD Work Phone: [facility] 12-18-2021 14:36-0400 Body weight 67.68 kg Tony Soares MD Work Phone: [facility] 12-18-2021 14:36-0400 Diastolic blood pressure 62 mm[Hg] Tony Soares MD Work Phone: [facility] 12-18-2021 14:36-0400 Heart rate 64 /min Tony Soares MD Work Phone: [facility] 12-18-2021 14:36-0400 Respiratory rate 16 /min Tony Soares MD Work Phone: [facility] 12-18-2021 14:36-0400 Systolic blood pressure 104 mm[Hg] Tony Soares MD Work Phone: [facility] 09-24-2021 15:23-0400 Body weight 66.68 kg Tony Soares MD Work Phone: [facility] 09-24-2021 15:23-0400 Diastolic blood pressure 80 mm[Hg] Tony Soares MD Work Phone: [facility] 09-24-2021 15:23-0400 Heart rate 72 /min Tony Soares MD Work Phone: [facility] 09-24-2021 15:23-0400 Respiratory rate 14 /min Tony Soares MD Work Phone: [facility] 09-24-2021 15:23-0400 Systolic blood pressure 124 mm[Hg] Tony Soares MD Work Phone: [facility] 09-01-2021 11:04-0400 Body weight 68.13 kg Tony Soares MD Work Phone: [facility] 09-01-2021 11:04-0400 Diastolic blood pressure 58 mm[Hg] Tony Soares MD Work Phone: [facility] 09-01-2021 11:04-0400 Heart rate 64 /min Tony Soares MD Work Phone: [facility] 09-01-2021 11:04-0400 Respiratory rate 18 /min Tony Soares MD Work Phone: [facility] 09-01-2021 11:04-0400 SaO2% (BldA) [Mass fraction] 98 % Tony Soares MD Work Phone: [facility] 09-01-2021 11:[id number] Systolic blood pressure 112 mm[Hg] Tony Soares MD Work Phone: [facility] Encounters Encounter Date Encounter Type Care Provider Facility Start: 12-19-2024 End: 12-26-2024 Telephone encounter Tony Soares MD Work Phone: [facility] Comment on above: Passport Waiver Start: 11-28-2024 End: 11-28-2024 ambulatory RAHUL ESPOSITO Facility:[facility] Start: 11-28-2024 End: 11-28-2024 Patient encounter procedure Rahul Esposito HYDROCHLORIC ACID OPERATOR.ASSISTED LIVING CARE MANAGER Work Phone: [facility] Comment on above: Medicare annual well ness visit, subsequent (Primary Dx); Atrial fibrillation, unspecified type (HCC); Primary hypertension; Stage 3 chronic kidney disease, unspecified whether stage 3a or 3b CKD (HCC); Cognitive impairment, mild, so stated; Age-related physical debility; Vitamin D deficiency; Gastroesophageal reflux disease with esophagitis, unspecified whether hemorrhage; Hyperlipidemia, unspecified hyperlipidemia type; Pulmonary arterial hypertension (HCC); Mixed urge and stress incontinence Start: 11-16-2024 End: 11-16-2024 ambulatory Brielle Jerry MA [facility] Start: 11-16-2024 End: 11-16-2024 Patient encounter procedure Brielle Jerry MA [facility] Comment on above: Population Health Na vigation Outreach ( [facility] // ) Start: 10-17-2024 End: 10-17-2024 ambulatory Brielle Jerry MA [facility] Start: 10-17-2024 End: 10-17-2024 Patient encounter procedure Brielle Jerry MA [facility] Comment on above: Population Health Na vigation Outreach ([facility] ) Start: 09-26-2024 End: 09-26-2024 ambulatory Brielle Yang [facility] Start: 09-26-2024 End: 09-26-2024 Patient encounter procedure Brielle Yang Reymundo [facility] Comment on above: Population Health Na vigation Outreach ([facility] ) Start: 09-11-2024 End: 09-11-2024 ambulatory Lo Bradford Facility:[facility] Start: 09-09-2024 End: 09-09-2024 Emergency department patient visit Dr. Bjorn Soares MD Work Phone: -Emergency Department Work Phone: Start: 09-04-2024 End: 09-04-2024 Patient encounter procedure Ashtyn Rodriguez MEDICAL AFFAIRS SPECIALISTDonna -[place] [facility] Work Phone: Start: 09-04-2024 End: 09-04-2024 ambulatory Bjorn Soares Facility:[facility] Start: 08-22-2024 ambulatory Bjorn Soares Facdahiana lity:[facility] Start: 08-10-2024 End: 08-10-2024 Patient encounter procedure Lo Bradford MEDICAL AFFAIRS SPECIALIST-C -[facility] Work Phone: Start: 08-10-2024 End: 08-10-2024 ambulatory Lo Bradford Facility:[facility] Start: 08-07-2024 ambulatory Lo Bradford Facili ty:[facility] Start: 08-01-2024 End: 08-01-2024 Telephone encounter Tony Soares MD Work Phone: [facility] [place] Comment on above: Fall Start: 08-01-2024 End: 08-01-2024 Emergency department patient visit Dr. Bjorn Soares MD Work Phone: -Emergency Department Work Phone: Start: 07-31-2024 End: 07-31-2024 Refill Tony Soares MD Work Phone: [facility] [place] Comment on above: Refill Request Start: 07-21-2024 End: 07-21-2024 ambulatory Rea Simon MA [facility] Start: 07-21-2024 End: 07-21-2024 Patient encounter procedure Rea Simon MA [facility] Comment on above: Population Health Na vigation Outreach (Aco high risk attempt # 2) Start: 07-18-2024 End: 07-18-2024 ambulatory Rea Simon MA [facility] Start: 07-18-2024 End: 07-18-2024 Patient encounter procedure Rea Simon MA [facility] Comment on above: Population Health Na vigation Outreach (Aco high risk attempt # 1) Start: 06-29-2024 End: 06-29-2024 Follow-up encounter Tony Soares MD Work Phone: [facility] Start: 06-27-2024 End: 06-29-2024 Follow-up encounter Tony Soares MD Work Phone: [facility] Comment on above: Closed nondisplaced fracture of head of right radius, initial encounter (Primary Dx) Start: 06-27-2024 End: 06-28-2024 Telephone encounter Juliette BROWNING Navigation Start: 06-27-2024 End: 06-27-2024 Subsequent hospital visit by physician Xr [facility] Work Phone: Radiology Comment on above: COVID-19 virus infec tion [U07.1] Start: 06-27-2024 End: 06-27-2024 ambulatory TONY SOARES Facility:[facility] Start: 06-27-2024 End: 06-27-2024 Patient encounter procedure Tony Soares MD Work Phone: [facility] Comment on above: COVID-19 virus infec tion (Primary Dx); Bacterial pneumonia; Hypoxia; Fall in home, subsequent encounter; Traumatic injury of head, subsequent encounter; Scalp hematoma, subsequent encounter; Elbow pain, right; Multiple skin tears; At high risk for falls; Memory impairment; Age-related physical debility; Vitamin D deficiency Start: 06-19-2024 End: 06-20-2024 Patient Outreach Tony Soares MD Work Phone: [facility] Comment on above: Transition Of Care Future Appointment Start: 06-18-2024 End: 06-18-2024 Emergency department patient visit Dr. Elmer Suresh DO -Emergency Department Work Phone: Start: 06-18-2024 Non-patient / Non-visit Dr. Elmer dominguez [facility] Work Phone: Start: 06-17-2024 Non-patient / Non-visit Dr. Elmer dominguez [facility] Work Phone: Start: 06-16-2024 ambulatory Sarah Suggs Fa cility:[facility] Start: 06-16-2024 Non-patient / Non-visit Dr. Eulalia Suggs MD -[facility] Start: 06-16-2024 Non-patient / Non-visit Dr. Elmer Chandra [facility] Work Phone: Start: 06-15-2024 ambulatory Erica Anand Facility:[facility] Start: 06-15-2024 End: 06-18-2024 Evaluation and management of inpatient Dr. Elmer Serrano DO -[facility] Work Phone: Start: 05-23-2024 End: 05-23-2024 [facility] Start: 05-23-2024 End: 05-23-2024 Patient encounter procedure Brielle Jerry MA [facility] Comment on above: Population Health Na vigation Outreach [facility] Start: 05-16-2024 End: 05-16-2024 ambulatory JULIA BARROW Facility:[facility] Start: 05-16-2024 End: 05-16-2024 ambulatory JULIA BARROW Facility:[facility] Start: 05-16-2024 End: 05-16-2024 Patient encounter procedure Julia Barrow MD Work Phone: Neurology Comment on above: Visual hallucination s (Primary Dx); Hallucinations; Impaired cognition; Smooth tongue; Visuospatial deficit [R41.842] Start: 05-15-2024 End: 05-15-2024 Chart abstracting Julia Barrow MD Work Phone: Neurology Start: 05-04-2024 End: 05-04-2024 ambulatory Odette Harvey PT [place] [facility] Physical Therapy Comment on above: Gait disturbance Start: 04-17-2024 End: 04-17-2024 Patient encounter procedure Lo Bradford MEDICAL AFFAIRS SPECIALIST-C -[facility] Work Phone: Start: 04-17-2024 End: 04-17-2024 ambulatory Lo Bradford [place] Start: 04-12-2024 End: 04-12-2024 Telephone encounter Drea Podlogkenny HYDROCHLORIC ACID OPERATOR.ASSISTED LIVING CARE MANAGER Work Phone: [facility] Start: 04-12-2024 End: 04-12-2024 ambulatory DREA PODLOGAR Facility:[facility] Start: 04-10-2024 End: 04-10-2024 Patient encounter procedure Drea Podlogar HYDROCHLORIC ACID OPERATOR.ASSISTED LIVING CARE MANAGER Work Phone: [facility] Comment on above: Cognitive impairment , mild, so stated (Primary Dx); Gait disturbance Start: 04-10-2024 End: 04-10-2024 ambulatory DREA PODLOGAR Facility:[facility] Start: 04-06-2024 End: 04-06-2024 Telephone encounter Tony Soares MD Work Phone: [facility] Start: 04-05-2024 End: 04-05-2024 Emergency department patient visit Dr. Steve Tabor -Emergency Department Work Phone: Start: 04-05-2024 End: 04-05-2024 ambulatory TONY SOARES Facility:[facility] Start: 04-05-2024 End: 04-05-2024 Patient encounter procedure Tony Soares MD Work Phone: [facility] Comment on above: Memory loss (Primary Dx); Hallucinations; Confusion; Urinary frequency Start: 04-04-2024 End: 04-04-2024 Telephone encounter Tony Soares MD Work Phone: [facility] Comment on above: Future Appointment Start: 03-09-2024 End: 03-09-2024 Emergency department patient visit Caleb Stewart Facility:[facility] Start: 02-12-2024 End: 02-12-2024 ambulatory Felix Tracey Facility[place] Start: 02-12-2024 End: 02-12-2024 ambulatory Felix Pruettetler Facility:[facility] Start: 02-04-2024 End: 02-04-2024 ambulatory Stan Ng Facility[place] Start: 01-27-2024 End: 01-27-2024 Telephone encounter Tony Soares MD Work Phone: [facility] Comment on above: Results Start: 01-26-2024 End: 01-26-2024 ambulatory TONY SOARES Facility:[facility] Start: 01-26-2024 End: 01-26-2024 Subsequent hospital visit by physician Xr [facility] Work Phone: Radiology Comment on above: Left hip pain [M25.5 52] Start: 01-26-2024 End: 01-26-2024 Patient encounter procedure Tony Soares MD Work Phone: [facility] Comment on above: Fall in home, subseq uent encounter (Primary Dx); Injury of head, subsequent encounter; Headache, unspecified headache type; Left hip pain; Acute left-sided low back pain with left-sided sciatica Start: 01-26-2024 End: 01-26-2024 ambulatory TONY SOARES Facility:[facility] Start: 01-02-2024 End: 01-02-2024 Emergency department patient visit Omar Bush Facility:[facility] Start: 01-02-2024 End: 01-02-2024 ambulatory Noemy Hurtado RN NURSE SOFTWARE MAINTENANCE ENGINEER Start: 01-02-2024 End: 01-02-2024 Patient encounter procedure Noemy Hurtado RN NURSE SOFTWARE MAINTENANCE ENGINEER Comment on above: Clinical Update Start: 12-01-2023 Telephone encounter Bjorn Soares MD Work Phone: [facility] Comment on above: legs are more painfu l today ; Patient Question Start: 11-30-2023 End: 03-17-2024 Telephone encounter Tony Soares MD Work Phone: [facility] Comment on above: Results Start: 11-30-2023 End: 11-30-2023 Patient encounter procedure Tony Soares MD Work Phone: [facility] Comment on above: Injury of head, subs equent encounter (Primary Dx); Laceration of left lower extremity, initial encounter; Pain and swelling of lower leg, left Start: 11-28-2023 End: 11-28-2023 Emergency department patient visit Aj Reynolds Facility:[facility] Start: 11-27-2023 Telephone encounter Bjorn Soares MD Work Phone: [facility] Comment on above: Patient Question Start: 11-19-2023 End: 11-19-2023 ambulatory Brodie PAULINO [place] Start: 10-15-2023 End: 10-15-2023 Office outpatient visit 15 minutes Kandi Kam HYDROCHLORIC ACID OPERATOR.BODY HANGER Work Phone: [facility] Comment on above: Skin tear of left fo rearm without complication, initial encounter (Primary Dx) Start: 10-15-2023 Telephone encounter Bjorn Soares MD Work Phone: [facility] Comment on above: open area on left lo wer arm Start: 09-23-2023 End: 09-23-2023 ambulatory Nilton Rosa Facility[place] Start: 09-21-2023 End: 09-21-2023 ambulatory Odette Harvey PT [facility] Comment on above: Balance problem (Kellen yoli Dx); Gait instability; Generalized weakness Start: 09-20-2023 ambulatory Omar Pemberton Facility :[facility] Start: 09-15-2023 Telephone encounter Bjorn Soares MD Work Phone: [facility] Comment on above: Results Start: 09-13-2023 End: 09-13-2023 Patient encounter procedure Tony Soares MD Work Phone: [facility] Comment on above: Acute left flank chelly n (Primary Dx); Primary hypertension; Atrial fibrillation, unspecified type (HCC); Hyperlipidemia, unspecified hyperlipidemia type; Chronic kidney disease, stage 3a (HCC); Renal cysts, acquired, bilateral; Pulmonary arterial hypertension (HCC); Bilateral carotid artery disease, unspecified type (HCC); Primary insomnia; Post herpetic neuralgia Start: 09-13-2023 End: 09-13-2023 Subsequent hospital visit by physician [facility] Work Phone: Radiology Comment on above: Acute left flank chelly n [R10.9] Start: 09-10-2023 End: 09-10-2023 ambulatory Odette O'Darrion PT [facility] Comment on above: Balance problem (Kellen yoli Dx); Generalized weakness Start: 09-08-2023 End: 09-08-2023 ambulatory Odette O'Darrion PT [facility] Comment on above: Gait instability (Pr imary Dx) Start: 09-06-2023 End: 09-06-2023 Patient encounter procedure Tony Soares MD Work Phone: [facility] Comment on above: Acute left flank chelly n (Primary Dx) Start: 09-06-2023 Telephone encounter Bjorn Soares MD Work Phone: [facility] Comment on above: Results Start: 09-03-2023 End: 09-03-2023 ambulatory Odette O'Darrion PT [facility] Comment on above: Gait instability (Pr imary Dx) Start: 09-02-2023 End: 09-02-2023 Patient encounter procedure Tony Soares MD Work Phone: [facility] Comment on above: Sinus pressure (Prim jayashree Dx); Seasonal allergies; Epistaxis; Dysuria Start: 09-01-2023 End: 09-01-2023 ambulatory Odette O'Darrion PT [facility] Comment on above: Gait instability (Pr imary Dx) Dizziness Start: 08-26-2023 Telephone encounter Bjorn Soares MD Work Phone: [facility] Comment on above: Patient Update Start: 08-25-2023 End: 08-25-[address] Bjorn Soares Work Phone: [facility] Work Phone: Start: 08-25-2023 End: 08-25-[address] [facility] Work Phone: Start: 08-25-2023 End: 08-25-[address] Bjorn Soares Work Phone: [facility] Work Phone: Start: 08-17-2023 End: 08-17-2023 ambulatory Odette Harvey PT [facility] Comment on above: Gait instability (Pr imary Dx) Start: 08-07-2023 End: 08-07-[address] Bjorn Soares Work Phone: [facility] Work Phone: Start: 08-07-2023 End: 08-07-[address] Bjorn Soares [facility] Phone[facility] Work Phone: Start: 08-05-2023 End: 08-05-[address] Bjorn Soares Work Phone: [facility] Work Phone: Start: 08-05-2023 End: 08-05-[address] Bjorn Soares [facility] Start: 07-21-2023 Telephone encounter Drea araujo APRN.ASSISTED LIVING CARE MANAGER Work Phone: [facility] Comment on above: Patient Update Start: 07-21-2023 End: 07-21-[address] Bjorn Soares Work Phone: [facility] Work Phone: Start: 07-21-2023 End: 07-21-[address] Bjorn Soares Work Phone: [facility]-Cat Scan, [facility] Work Phone: Start: 07-21-2023 End: 07-21-2023 Patient encounter procedure Drea Colon APRN.CNP Work Phone: [facility] Comment on above: Fall from stool (Kellen yoli Dx); Injury of head, initial encounter; Pain of right heel; Noninfected skin tear of left lower extremity, initial encounter Start: 07-09-2023 End: 07-09-2023 Patient encounter procedure Tony Soares MD Work Phone: [facility] Comment on above: Skin tear of hand wi thout complication, left, initial encounter (Primary Dx); Noninfected skin tear of left lower extremity, initial encounter; Fall in home, subsequent encounter Start: 07-07-2023 Orders Only Tony Soares MD Work Phone: Appointment Center Comment on above: Visit for screening mammogram (Primary Dx) Start: 07-02-2023 End: 07-02-2023 Subsequent hospital visit by physician [facility] (I-Stat) Work Phone: Cat Scan Comment on above: Injury of head, init ial encounter [S09.90XA] Start: 07-02-2023 End: 07-02-2023 Patient encounter procedure Tony Soares MD Work Phone: [facility] Comment on above: Skin tear of hand wi thout complication, left, initial encounter (Primary Dx); Noninfected skin tear of left lower extremity, initial encounter; Injury of head, initial encounter; Fall in home, subsequent encounter Start: 06-30-2023 End: 06-30-2023 Emergency department patient visit Dr. Bjorn Soares Work Phone: [facility]-Emergency Department Work Phone: Start: 06-01-2023 End: 06-01-[address] Bjorn Soares Work Phone: [facility] Work Phone: Start: 05-26-2023 End: 05-26-[address] Bjorn Soares Work Phone: [facility] Work Phone: Start: 05-26-2023 End: 05-26-[address] Bjorn Soares [facility] Work [facility]: Start: 05-26-2023 End: 05-26-[address] Bjorn Soares Work Phone: [facility] Work Phone: Start: 05-17-2023 End: 05-17-2023 Emergency department patient visit Dr. Bjorn Soares Work Phone[facility] Work [facility]: Start: 05-14-2023 End: 05-14-[address] Bjorn Soares Work Phone: [facility] Work Phone: Start: 05-14-2023 End: 05-14-[address] Bjorn Soares Work Phone[facility] Work [facility]: Start: 05-14-2023 End: 05-14-[address] Bjorn Soares Work Phone: [facility] Work Phone: Start: 05-13-2023 Non-patient / Non-visit Dr. Jazmyn Soares Work Phone: [facility] Start: 05-13-2023 End: 05-13-[address] Bjorn Soares Work Phone: [facility]-Cardiovascular Services Work Phone: Start: 04-12-2023 End: 04-12-[address] Bjorn Soares Work Phone: [facility]-Laboratory Work Phone: Start: 04-12-2023 End: 04-12-[address] Bjorn Soares Work Phone: [facility] Work Phone: Start: 04-12-2023 End: 04-12-2023 Refill Tony Soares MD Work Phone: [facility] Comment on above: Refill Request Start: 04-03-2023 End: 04-03-[address] Bjorn Soares Work Phone: [facility] Work Phone: Start: 03-31-2023 End: 03-31-2023 Patient encounter procedure Drea Colon APRN.ASSISTED LIVING CARE MANAGER Work Phone: [facility] Comment on above: Acute cough (Primary Dx) Start: 03-17-2023 Telephone encounter Bjorn Soares MD Work Phone: [facility] Comment on above: Patient Question Start: 03-15-2023 End: 03-15-2023 Patient encounter procedure Tony Soares MD Work Phone: [facility] Comment on above: Primary hypertension (Primary Dx); Hyperlipidemia, unspecified hyperlipidemia type; OAB (overactive bladder); Mixed urge and stress incontinence; Gastroesophageal reflux disease with esophagitis, unspecified whether hemorrhage; Nonrheumatic aortic valve stenosis; Bilateral carotid artery stenosis; Encounter for immunization; Bilateral carotid artery disease, unspecified type (HCC) Start: 03-09-2023 End: 03-09-[address] Bjorn Soares Work Phone: [facility] Work Phone: Start: 03-09-2023 End: 03-09-[address] Bjorn Soares Work Phone: [facility]-Laboratory, Specimen Work Phone: Start: 03-08-2023 End: 03-08-[address] Bjorn Soares Work Phone: [facility] Work Phone: Start: 03-05-2023 Telephone encounter Drea araujo HYDROCHLORIC ACID OPERATOR.ASSISTED LIVING CARE MANAGER Work Phone: [facility] Comment on above: Orders Start: 03-05-2023 End: 03-05-2023 Patient encounter procedure Drea Colon HYDROCHLORIC ACID OPERATOR.ASSISTED LIVING CARE MANAGER Work Phone: [facility] Comment on above: Primary hypertension (Primary Dx) Start: 02-24-2023 Telephone encounter Bjorn Soares MD Work Phone: [facility] Comment on above: Results Start: 02-18-2023 Telephone encounter Bjorn Soares MD Work Phone: [facility] Comment on above: BP concerns Start: 02-17-2023 Telephone encounter Bjorn Soares MD Work Phone: [facility] Comment on above: Blood Pressure Readi ngs Start: 02-17-2023 Non-patient / Non-visit Dr. Jazmyn Soares Work Phone: [facility] Start: 02-17-2023 End: 02-17-2023 Admission to same day surgery center Dr. Bjorn Soares Work Phone: [facility]-Endoscopy Work Phone: Start: 02-17-2023 End: 02-17-[address] Bjorn Soares Work Phone: [facility] Work Phone: Start: 02-16-2023 Telephone encounter Bjorn Soares MD Work Phone: [facility] Comment on above: blood pressure readi ngs Start: 02-08-2023 End: 02-08-2023 Patient encounter procedure Tony Soares MD Work Phone: [facility] Comment on above: Primary hypertension (Primary Dx) Start: 02-05-2023 Telephone encounter Bjorn Soares MD Work Phone: [facility] Comment on above: Opened In Error BP Question Start: 12-14-2022 End: 12-14-[address] Bjorn Soares Work Phone: [facility] Work Phone: Start: 12-14-2022 End: 12-14-[address] Bjorn Soares Work Phone: [facility] Work Phone: Start: 12-10-2022 Telephone encounter Bjorn Soares MD Work Phone: [facility] Comment on above: Medication Question Start: 12-01-2022 Non-patient / Non-visit Dr. Jazmyn Soares Work Phone: [facility] Start: 12-01-2022 End: 12-01-[address] Bjorn Soares Work Phone: [facility] Work Phone: Start: 12-01-2022 End: 12-01-[address] Bjorn Soares Work Phone: [facility]-Cardiovascular Services Work Phone: Start: 11-18-2022 End: 11-18-[address] Bjorn Soares Work Phone: [facility]-Laboratory Work Phone: Start: 11-12-2022 Non-patient / Non-visit Dr. Jazmyn Soares Work Phone: [facility] Start: 11-12-2022 End: 11-12-2022 Admission to same day surgery center Dr. Bjorn Soares Work Phone: [facility]-Endoscopy Work Phone: Start: 11-12-2022 End: 11-12-[address] Bjorn Soares Work Phone: [facility] Work Phone: Start: 11-10-2022 End: 11-10-[address] Bjorn Soares Work Phone: [facility] Work Phone: Start: 11-04-2022 End: 11-04-[address] Bjorn Soares Work Phone: [facility] Work Phone: Start: 11-04-2022 End: 11-04-[address] Bjorn Soares Work Phone: [facility]-Cat Scan, [facility] Work Phone: Start: 11-02-2022 End: 11-02-[address] Bjorn Soares Work Phone: [facility] Work Phone: Start: 11-02-2022 End: 11-02-[address] Bjorn Soares Work Phone: [facility]-MRI - [facility] Work Phone: Start: 10-20-2022 End: 10-20-[address] Bjorn Soares Work Phone: [facility] Work Phone: Start: 10-19-2022 Telephone encounter Drea araujo APRN.ASSISTED LIVING CARE MANAGER Work Phone: [facility] Comment on above: Results Start: 10-16-2022 Telephone encounter Drea Podl ogar HYDROCHLORIC ACID OPERATOR.ASSISTED LIVING CARE MANAGER Work Phone: [facility] [place] Comment on above: Patient Update Results Start: 10-14-2022 End: 10-14-2022 Patient encounter procedure Drea Colon HYDROCHLORIC ACID OPERATOR.ASSISTED LIVING CARE MANAGER Work Phone: [facility] [place] Comment on above: Dysuria (Primary Dx) Start: 09-14-2022 Telephone encounter Bjorn Soares MD Work Phone: [facility] [place] Comment on above: Referral Information Start: 09-09-2022 Telephone encounter Bjorn Soares MD Work Phone: [facility] [place] Comment on above: requesting referral to outside Start: 09-07-2022 End: 09-07-2022 Patient encounter procedure Tony Soares MD Work Phone: [facility] [place] Comment on above: Chronic kidney disea se, stage 3a (HCC) (Primary Dx); LLQ abdominal pain; Primary hypertension; Hyperlipidemia, unspecified hyperlipidemia type; Gastroesophageal reflux disease with esophagitis, unspecified whether hemorrhage; Nonrheumatic aortic valve stenosis; Nonrheumatic mitral valve regurgitation; Pulmonary arterial hypertension (HCC); Bilateral carotid artery stenosis Start: 08-20-2022 Telephone encounter Bjorn Soares MD Work Phone: [facility] [place] Comment on above: Results Start: 08-10-2022 Telephone encounter Taisha mckee HYDROCHLORIC ACID OPERATOR.ASSISTED LIVING CARE MANAGER Work Phone: [facility] [place] Comment on above: Appointment Start: 07-24-2022 Refill Tony Soares MD Work Phone: [facility] [place] Comment on above: Refill Request Start: 07-07-2022 Telephone encounter Rahul porter HYDROCHLORIC ACID OPERATOR.ASSISTED LIVING CARE MANAGER Work Phone: [facility] [place] Comment on above: Results Start: 07-02-2022 Telephone encounter Bjorn Soares MD Work Phone: [facility] [place] Comment on above: Results Start: 04-02-2022 Refill Tony Soares MD Work Phone: [facility] [place] Comment on above: Refill Request Start: 03-04-2022 End: 03-04-2022 Patient encounter procedure Drea Colon APRN.ASSISTED LIVING CARE MANAGER Work Phone: [facility] [place] Comment on above: Primary hypertension (Primary Dx); Post herpetic neuralgia; Heart murmur; Gastroesophageal reflux disease with esophagitis, unspecified whether hemorrhage; Hyperlipidemia, unspecified hyperlipidemia type; Nonrheumatic aortic valve stenosis; Shoulder blade pain Start: 01-03-2022 End: 01-03-2022 Patient encounter procedure Celia David APRN.ASSISTED LIVING CARE MANAGER Work Phone: [facility] Comment on above: Burning with urinati on (Primary Dx) Start: 12-22-2021 End: 12-22-2021 Patient encounter procedure Tony Soares MD Work Phone: [facility] [place] Comment on above: LLQ pain (Primary Dx ); Epigastric pain Start: 12-22-2021 ambulatory Tony Soares MD Work Phone: [facility] [place] Comment on above: Results Start: 12-18-2021 End: 12-18-2021 Patient encounter procedure Tony Soares MD Work Phone: [facility] [place] Comment on above: Recurrent UTI (urina ry tract infection) (Primary Dx); Dysuria Start: 12-08-2021 Telephone encounter Bjorn Soares MD Work Phone: [facility] [place] Comment on above: Results Start: 12-04-2021 ambulatory Tony Soares MD Work Phone: [facility] [place] Comment on above: urinary symptoms Start: 12-04-2021 Telephone encounter Bjorn Soares MD Work Phone: [facility] [place] Comment on above: Patient Question Results Start: 10-29-2021 Refill Tony Soares MD Work Phone: [facility] [place] Comment on above: Prescription Refills Start: 10-16-2021 Refill Tony Soares MD Work Phone: [facility] [place] Comment on above: Refill Request Start: 09-24-2021 End: 09-24-2021 Patient encounter procedure Tony Soares MD Work Phone: [facility] [place] Comment on above: Plantar fasciitis (P rimary Dx) Start: 09-03-2021 Telephone encounter Bjorn Soares MD Work Phone: [facility] [place] Comment on above: Medication Question Start: 09-02-2021 Telephone encounter Drea Bharat araujo APRN.ASSISTED LIVING CARE MANAGER Work Phone: [facility] [place] Comment on above: Results Start: 09-01-2021 End: 09-01-2021 Patient encounter procedure Tony Soares MD Work Phone: [facility] [place] Comment on above: Thinning hair (Prima ry Dx); OAB (overactive bladder); Mixed urge and stress incontinence; Nonrheumatic aortic valve stenosis; Primary hypertension; Hyperlipidemia, unspecified hyperlipidemia type; Gastroesophageal reflux disease with esophagitis, unspecified whether hemorrhage; Bilateral carotid artery stenosis Start: 08-07-2021 Telephone encounter Bjorn Soares MD Work Phone: [facility] Comment on above: Insurance Authorizat ion (Hydroxyzine) Procedures Date Procedure Procedure Detail Performing Clinician Start: 09-09-2024 Urnls dip stick/tablet reagent auto microscopy Dr. Bjorn Soares MD Work Phone: Start: 09-09-[address] Karel Soares MD Work Phone: Start: 08-01-2024 CT of head without contrast Dr. Rowena Soares MD Work Phone: Start: 08-01-2024 Plain radiography of pelvis Dr. Rowena Soares MD Work Phone: Start: 08-01-2024 X-ray of sacrum and coccyx, two or more views Dr. Bjorn Soares MD Work Phone: Start: 06-27-2024 Radex elbow complete minimum 3 views Tony Soares MD Work Phone: Start: 06-27-2024 Radiologic exam chest 2 views Bjorn Soares MD Work Phone: Start: 06-18-2024 XR forearm, [address] Bjorn Soares MD Work Phone: Start: 06-18-2024 CT of head without contrast Dr. Rowena Soares MD Work Phone: Start: 06-17-2024 Plain X-ray abdomen Dr. Bjorn Soares MD Work Phone: Start: 06-17-[address] Karel Soares MD Work Phone: Start: 06-17-2024 Measurement of renal function Dr. Ghanshyam Soares MD Work Phone: Comment on above: GFR Calc Start: 06-16-2024 Assay of phosphorus inorganic Dr. Ghanshyam Soares MD Work Phone: Start: 06-15-2024 Plain chest X-ray Dr. Bjorn Soares MD Work Phone: Start: 06-15-2024 Legionella pneumophila antigen assay Dr. Bjorn Soares MD Work Phone: Start: 06-15-2024 SARS-CoV-2, Influenza & RSV (PCR) Dr. Jazmyn Soares MD Work Phone: Start: 06-15-2024 End: 06-15-2024 Streptococcus pneumoniae antigen assay Dr. Bjorn Soares MD Work Phone: Start: 06-15-2024 Urnls dip stick/tablet reagent auto microscopy Dr. Bjorn Soares MD Work Phone: Start: 06-15-2024 MRI of lumbar spine Dr. Bjorn Soares MD Work Phone: Start: 06-15-2024 CT of abdomen and pelvis without contrast Dr. Bjorn Soares MD Work Phone: Start: 06-15-2024 CT of head without contrast Dr. Rowena Soares MD Work Phone: Start: 04-05-2024 X-ray of chest, PA and lateral views Dr. Bjorn Soares MD Work Phone: Start: 04-05-2024 CT of head without contrast Dr. Rowena Soares MD Work Phone: Start: 04-05-2024 Urnls dip stick/tablet rgnt auto w/o microscopy Tony Soares MD Work Phone: Start: 01-26-2024 Radex hip unilateral with pelvis 2-3 views Tony Soares MD Work Phone: Start: 09-13-2023 Us retroperitoneal real time w/image complete Tony Soares MD Work Phone: Start: 08-25-[address] Bjorn Soares Work Phone: Start: 08-07-2023 Measurement of occult blood in stool specimen using immunoassay Dr. Bjorn Soares Work Phone: Start: 07-21-2023 CT of head without contrast Dr. Rowena Soares Work Phone: Start: 07-02-2023 Ct head/brain w/o contrast material Tony Soares MD Work Phone: Start: 05-26-[address] Bjorn Soares Work Phone: Start: 05-17-2023 Plain chest X-ray Dr. Bjorn Soares Work Phone: Start: 05-17-2023 Measurement of occult blood in stool specimen using immunoassay Dr. Bjorn Soares Work Phone: Start: 05-14-[address] Bjorn Soares Work Phone: Start: 03-09-[address] Kit Soares Work Phone: Start: 03-09-2023 Giardia Antigen (DAVID) Dr. Bjorn Soares Work Phone: Start: 03-09-[address] Bjorn Soares Work Phone: Start: 03-09-[address] Bjorn Soares Work Phone: Start: 03-09-2023 Ova OR parasites identification Dr. Kit Soares Work Phone: Start: 02-17-[address] Lukas Soares Work Phone: Start: 12-14-2022 Computed tomography angiography of abdominal and/or pelvic blood vessel Dr. Bjorn Soares Work Phone: Start: 11-12-[address] Bjorn Soares Work Phone: Start: 11-04-2022 Computed tomography of abdomen and pelvis with contrast Dr. Bjorn Soares Work Phone: Start: 11-02-2022 MRI of lumbar spine Dr. Bjorn Soares Work Phone: Start: 10-14-2022 Urnls dip stick/tablet rgnt auto w/o microscopy Drea Colon APRN.CNP Work Phone: Start: 01-03-2022 Urnls dip stick/tablet rgnt auto w/o microscopy Atif Kellogg MD Work Phone: Plan of Treatment Date Care Activity Detail Author Start: 11-18-2033 Urine microalbumin profile DTaP,Tdap,Td Vaccine (4 - Td or Tdap) [facility] Start: 07-08-2031 Urine microalbumin profile [facility] Start: 06-27-2027 Diabetes Screening Diabetes Screenin g [facility] Start: 11-29-2026 Diabetes Screening Diabetes Screenin g [facility] Start: 09-12-2026 Diabetes Screening Diabetes Screenin g [facility] Start: 02-23-2026 Diabetes Screening Diabetes Screenin g [facility] Start: 11-28-2025 Anxiety Screening Anxiety Screening [facility] Comment on above: Postponed from 05/09 (Declined at this time) Start: 11-28-2025 Medicare Annual Well ness Visit Medicare Annual Wellness Visit [facility] Start: 09-04-2025 DIABETES SCREEN DIABETES SCREEN [facility] Start: 09-04-2025 Diabetes Screening Diabetes Screenin g [facility] Start: 08-17-2025 DIABETES SCREEN DIABETES SCREEN [facility] Start: 05-31-2025 End: 05-31-2025 Patient encounter procedure 05/31/2025 8:40 AM EST Office Visit Family [facility] [address], [place] [id number] Tony Soares MD [address] [place], [place] [id number] 6 month follow up [facility] Comment on above: 6 month follow up Start: 04-10-2025 Covid-19 Vaccine () Covid-19 Vaccine () [facility] Comment on above: Postponed from 01/01 (Declined at this time) Start: 01-16-2025 End: 01-16-2025 Patient encounter procedure 01/16/2025 4:00 PM EDT Office Visit [facility] [id number] [place] [address] [place] [address] [place] [address] Follow Up // rescheduled from 11-14-24 - Airtime message sent as well [facility] Comment on above: Follow Up // resched uled from 11-14-24 - Airtime message sent as well Start: 01-01-2025 Influenza vaccination C [facility] Start: 11-28-2024 Depression Screening Depression Scre ening [facility] Comment on above: Postponed from 05/09 (Declined at this time) Start: 11-28-2024 End: 11-28-2024 Patient encounter procedure 11/28/2024 8:00 AM EDT Office Visit [facility] [place] [address], [place] [id number] Rahul Esposito, ALVIN.ASSISTED LIVING CARE MANAGER [address] [place], [place] [phone] physical [facility] [place] Comment on above: physical Start: 11-14-2024 End: 11-14-2024 Patient encounter procedure Neurology Comment on above: Follow Up Follow Up // attempt x1 regarding new location - lvm and mychart sent Start: 10-30-2024 Influenza vaccination Influenza Vacc ine (#1) [facility] Comment on above: Postponed from 01/01 (Declined at this time) Start: 09-09-2024 [facility] Start: 09-01-2024 DIABETES SCREEN DIABETES SCREEN [facility] Start: 08-22-2024 End: 08-22-2024 Patient encounter procedure 08/22/2024 8:00 AM EDT Office Visit [facility] [place] [address], [place] [address] Tony Soares MD [address] [place] [address] 2 month follow up [facility] Comment on above: 2 month follow up Start: 08-01-2024 [facility] Start: 07-11-2024 End: 07-11-2024 Patient encounter procedure 07/11/2024 9:00 AM EDT Office Visit [facility] [address] [facility] [place] [address] Tony Soares MD [address] [place] [address] 2 week f/u for Elbow fracture [facility] [place] Comment on above: 2 week f/u for Elbow fracture Start: 06-22-2024 End: 06-22-2024 Patient encounter procedure 06/22/2024 1:00 PM EST Office Visit [facility] [address] [facility] [place] [address] Tony Soares MD [address] [facility] [place] [id number] TCM [facility] FU 06-18-24 back and leg pain /[facility] ER FU 06-18-24 fall/discuss medical equipment needed. [facility] [place] Comment on above: TCM [facility] FU 06-18-24 b ack and leg pain /[facility] ER FU 06-18-24 fall/discuss medical equipment needed. Start: 06-18-2024 [facility] Start: 06-18-2024 Patient discharge [facility] Start: 06-16-2024 [facility] Start: 06-16-2024 Inhalation therapy procedure [facility] Start: 06-15-2024 End: 06-15-2024 Following clinical pathway protocol [facility] Start: 06-15-2024 Assessment of risk o f venous thromboembolism [facility] Start: 06-15-2024 Catheterization of vein [facility] Start: 06-15-2024 Elevation of affecte d extremity [facility] Start: 06-15-2024 Elevation of head of bed [facility] Start: 06-15-2024 Insertion of cathete r into peripheral vein [facility] Start: 06-15-2024 Measuring intake and output [facility] Start: 06-15-2024 Notification of physician [facility] Start: 06-15-2024 Oxygen therapy [facility] Start: 06-15-2024 Patient education [facility] Start: 06-15-2024 Physiotherapy of chest [facility] Start: 06-15-2024 Providing care accor ding to standard [facility] Start: 06-15-2024 Provision of activit y privileges [facility] Start: 06-15-2024 Referral to occupati onal therapist [facility] Start: 06-15-2024 Referral to service [facility] Start: 06-15-2024 [facility] Start: 06-15-2024 Admission procedure [facility] Start: 06-15-2024 Patient referral to dietitian [facility] [facility] Start: 05-16-[facility]24 End: 08-15-2024 Cobalamin (Vitamin B12) [Mass/volume] in Serum or Plasma [facility] Work Phone: Comment on above: Expected: 05/16/2024 , Expires: 08/15/2024 Start: 05-16-2024 End: 05-16-2024 Patient encounter procedure 05/16/2024 8:30 AM EST Office Visit Neurology [address] [place] [address] [place] [address] [place] [address] Hallucinations [R44.3] Neurology Comment on above: Hallucinations [R44. 3] Start: 05-04-2024 End: 05-04-2024 ambulatory 05/04/2024 10:15 AM EST OT/PT/Speech Visit [facility] [address] [place] [address] Odette Harvey, PT Gait disturbance [R26.9] [facility] Comment on above: Gait disturbance [R2 6.9] Start: 05-03-2024 Advance Directive Discussion Advance Directive Discussion [facility] Start: 04-12-2024 End: 04-12-2024 Patient encounter procedure 04/12/2024 9:30 AM EST Appointment Radiology [address] [place] [place] [address] Cognitive impairment, mild, so stated [G31.84] Radiology Comment on above: Cognitive impairment , mild, so stated [G31.84] Start: 04-10-2024 End: 04-10-2024 Patient encounter procedure 04/10/2024 2:40 PM EST Office Visit [facility] [place] [address] [place] [address] PodlogarDrea APRN.ASSISTED LIVING CARE MANAGER [address] [place] [address] ER UTI/CT of head [facility] [place] Comment on above: ER UTI/CT of head Start: 04-05-2024 [facility] Start: 04-05-2024 End: 04-05-2024 Patient encounter procedure 04/05/2024 8:00 AM EST Office Visit [facility] [place] [address] [place] [address] Tony Soares MD [address] [facility] [place] [address] starting with memory issues, halucinations x 3 weeks off and on [facility] Comment on above: starting with memory issues, halucinations x 3 weeks off and on Start: 03-13-2024 End: 03-13-2024 Patient encounter procedure 03/13/2024 1:00 PM EST Office Visit [facility] [address] [place], [place] [address] Tony Soares MD [address] [facility] [place] [id number] 6 month follow up [facility] Comment on above: 6 month follow up Start: 02-19-2024 DIABETES SCREEN DIABETES SCREEN [facility] Start: 02-09-2024 Covid-19 Vaccine () Covid-19 Vaccine () [facility] Comment on above: Postponed from 01/01 (Declined at this time) Start: 02-09-2024 Covid-19 Vaccine (4 - Pfizer series) Covid-19 Vaccine (4 - Pfizer series) [facility] Comment on above: Postponed from 06/17 (Declined at this time) Start: 01-02-2024 Covid-19 Vaccine () Covid-19 Vaccine () [facility] Start: 01-02-2024 Covid-19 Vaccine () Covid-19 Vaccine () [facility] Start: 01-02-2024 Influenza vaccination C [facility] Start: 12-31-2023 End: 03-31-2024 Comprehensive metabolic 2000 panel - Serum or Plasma COMPREHENSIVE METABOLIC PANEL Lab Routine Stage 3 chronic kidney disease, unspecified whether stage 3a or 3b CKD (HCC) Expected: 12/31/2023, Expires: 03/31/2024 [facility] Work Phone: Comment on above: Expected: 12/31/2023 , Expires: 03/31/2024 Start: 10-31-2023 Influenza vaccination Influenza Vacc ine (#1) [facility] Comment on above: Postponed from 01/01 (Declined at this time) Start: 10-06-2023 End: 10-06-2023 ambulatory 10/06/2023 1:30 PM EDT OT/PT/Speech Visit [facility] [address] [place] [address] O'DarrionOdette matamoros, PT R26.81 (ICD-10-CM) - Gait instability [facility] Comment on above: R26.81 (ICD-10-CM) - Gait instability Start: 10-01-2023 End: 10-01-2023 ambulatory 10/01/2023 1:15 PM EDT OT/PT/Speech Visit [facility] [address] [place] [address] O'DarrionOdette matamoros, PT R26.81 (ICD-10-CM) - Gait instability [facility] Comment on above: R26.81 (ICD-10-CM) - Gait instability Start: 09-29-2023 End: 09-29-2023 ambulatory 09/29/2023 3:45 PM EDT OT/PT/Speech Visit [facility] [address] [place] [address] O'Odette Maier, PT R26.81 (ICD-10-CM) - Gait instability [facility] Comment on above: R26.81 (ICD-10-CM) - Gait instability Start: 09-23-2023 End: 09-23-2023 ambulatory 09/23/2023 11:00 AM EDT OT/PT/Speech Visit [facility] [address] [place] [address] O'DarrionOdette matamoros, PT R26.81 (ICD-10-CM) - Gait instability [facility] Comment on above: R26.81 (ICD-10-CM) - Gait instability Start: 09-21-2023 End: 09-21-2023 ambulatory 09/21/2023 2:15 PM EDT OT/PT/Speech Visit [facility] [address] [place] [address] O'DarrionOdette matamoros, PT R26.81 (ICD-10-CM) - Gait instability [facility] Comment on above: R26.81 (ICD-10-CM) - Gait instability Start: 09-13-2023 End: 09-13-2023 Patient encounter procedure [facility] Comment on above: 6 month follow up Acute left flank chelly n [R10.9] Start: 09-10-2023 End: 09-10-2023 ambulatory 09/10/2023 2:00 PM EDT OT/PT/Speech Visit [facility] [address] [place] [address] O'DarrionOdette matamoros, PT R26.81 (ICD-10-CM) - Gait instability [facility] Comment on above: R26.81 (ICD-10-CM) - Gait instability Start: 09-08-2023 End: 09-08-2023 ambulatory 09/08/2023 1:30 PM EDT OT/PT/Speech Visit [facility] [address] [place] [address] O'Odette Maier, PT R26.81 (ICD-10-CM) - Gait instability [facility] Comment on above: R26.81 (ICD-10-CM) - Gait instability Start: 09-03-2023 End: 09-03-2023 ambulatory 09/03/2023 2:00 PM EDT OT/PT/Speech Visit [facility] [address] [place] [address] O'DarrionOdette matamoros, PT R26.81 (ICD-10-CM) - Gait instability [facility] Comment on above: R26.81 (ICD-10-CM) - Gait instability Start: 09-02-2023 End: 09-02-2023 Patient encounter procedure 09/02/2023 4:00 PM EDT Office Visit [facility] [address] [place] [address] Tony Soares MD [address] [facility] [place] [address] intermittent dizziness [facility] [place] Comment on above: intermittent dizzine ss Start: 09-02-2023 End: 12-02-2023 Bacteria identified in Urine by Culture URINE CULTURE Microbiology Routine Dysuria Expected: 09/02/2023, Expires: 12/02/2023 [facility] Comment on above: Expected: 09/02/2023 , Expires: 12/02/2023 Start: 09-02-2023 End: 12-02-2023 Urinalysis complete panel - Urine URINALYSIS, WITH MICROSCOPIC Lab Routine Dysuria Expected: 09/02/2023, Expires: 12/02/2023 [facility] Work Phone: Comment on above: Expected: 09/02/2023 , Expires: 12/02/2023 Start: 09-01-2023 End: 09-01-2023 ambulatory 09/01/2023 3:00 PM EDT OT/PT/Speech Visit [facility] [address] [place] [address] Odette Harvey, PT R26.81 (ICD-10-CM) - Gait instability [facility] Comment on above: R26.81 (ICD-10-CM) - Gait instability Start: 06-30-2023 [facility] Start: 06-01-2023 Patient referral [facility] Work Phone: Start: 05-17-2023 [facility] Start: 05-03-2023 Advance Directive Discussion Advance Directive Discussion [facility] Start: 05-03-2023 Behavioral Health Screening Behavioral Health Screening [facility] Start: 05-03-2023 Depression Assessment Depression Ass essment [facility] Start: 03-09-2023 Elastase, pancreatic (el-1), fecal; quantitative [facility] Start: 03-09-2023 Fat [Presence] in Stool [facility] Start: 03-09-2023 Protein measurement [facility] Start: 03-09-2023 [facility] Start: 02-17-2023 Egd transoral biopsy single/multiple EGD BIOPSY SINGLE/MULTIPLE [facility] Start: 02-17-2023 Egd transoral contro l bleeding any method EGD CONTROL BLEEDING ANY [facility] Start: 02-17-2023 Patient discharge [facility] Start: 01-01-2023 Influenza vaccination C [facility] Start: 12-18-2022 COVID-19 VACCINE (4 - Booster for Pfizer series) COVID-19 VACCINE (4 - Booster for Pfizer series) [facility] Comment on above: Postponed from 08/21 (Declined at this time) Postponed from 06/17 (Declined at this time) Start: 12-18-2022 COVID-19 VACCINE (4 - Pfizer series) COVID-19 VACCINE (4 - Pfizer series) [facility] Comment on above: Postponed from 06/17 (Declined at this time) Start: 12-18-2022 PNEUMOCOCCAL: 65+ (2 - PCV) PNEUMOCOCCAL: 65+ (2 - PCV) [facility] Comment on above: Postponed from 12/08 (Declined at this time) Start: 11-12-2022 Colonoscopy w/biopsy single/multiple COLONOSCOPY AND BIOPSY [facility] Start: 11-12-2022 Patient discharge [facility] Start: 10-30-2022 Influenza vaccination INFLUENZA (#1) [facility] Comment on above: Postponed from 01/01 (Declined at this time) Start: 05-03-2022 ADVANCE DIRECTIVE DISCUSSION ADVANCE DIRECTIVE DISCUSSION [facility] Start: 05-03-2022 DEPRESSION ASSESSMENT DEPRESSION ASS ESSMENT [facility] Start: 01-03-2022 End: 03-05-2022 Bacteria identified in Urine by Culture URINE CULTURE Microbiology Routine Burning with urination Expected: 01/03/2022, Expires: 03/05/2022 [facility] Work Phone: Comment on above: Expected: 01/03/2022 , Expires: 03/05/2022 Start: 01-01-2022 Influenza vaccination C [facility] Start: 09-01-2021 End: 11-01-2021 CBC W Auto Differential panel - Blood [facility] Work Phone: Comment on above: Expected: 09/01/2021 , Expires: 11/01/2021 Start: 09-01-2021 End: 11-01-2021 Comprehensive metabolic 2000 panel - Serum or Plasma [facility] Work Phone: Comment on above: Expected: 09/01/2021 , Expires: 11/01/2021 Start: 09-01-2021 End: 11-01-2021 FERRITIN BLD [facility] Work Phone: Comment on above: Expected: 09/01/2021 , Expires: 11/01/2021 Start: 09-01-2021 End: 11-01-2021 IRON + TIBC [facility] Work Phone: Comment on above: Expected: 09/01/2021 , Expires: 11/01/2021 Start: 09-01-2021 End: 11-01-2021 LIPID PANEL, NONFASTING [facility] Work Phone: Comment on above: Expected: 09/01/2021 , Expires: 11/01/2021 Start: 09-01-2021 End: 11-01-2021 Thyrotropin [Units/volume] in Serum or Plasma [facility] Work Phone: Comment on above: Expected: 09/01/2021 , Expires: 11/01/2021 Start: 08-21-2021 COVID-19 VACCINE (4 - Booster for Pfizer series) COVID-19 VACCINE (4 - Booster for Pfizer series) [facility] Start: 06-17-2021 Covid-19 Vaccine (4 - Pfizer series) Covid-19 Vaccine (4 - Pfizer series) [facility] Start: 05-03-2021 ADVANCE DIRECTIVE DISCUSSION ADVANCE DIRECTIVE DISCUSSION [facility] Start: 05-03-2021 DEPRESSION ASSESSMENT DEPRESSION ASS ESSMENT [facility] Start: 12-08-2009 Pneumococcal Vaccine : 65+ (2 - PCV) Pneumococcal Vaccine: 65+ (2 - PCV) [facility] Start: 12-08-2009 PNEUMOCOCCAL: 65+ (2 - PCV) PNEUMOCOCCAL: 65+ (2 - PCV) [facility] Start: 05-03-2004 Medicare Annual Well ness Visit Medicare Annual Wellness Visit [facility] Start: 1999 RSV Vaccine (1 - 1-d ose 60+ series) RSV Vaccine (1 - 1-dose 60+ series) [facility] Start: 1957 Anxiety Screening Anxiety Screening [facility] Start: 1957 Depression Screening Depression Scre ening [facility] Bacteria identified in Urine by Culture URINE CULTURE Microbiology Routine Dysuria 12/18/2021 2:44 PM EDT [facility] Work Phone: Bacteria identified in Urine by Culture URINE CULTURE Microbiology Routine Dysuria 10/14/2022 4:20 PM EDT [facility] Work Phone: Bacteria identified in Urine by Culture URINE CULTURE Microbiology Routine Confusion 04/05/2024 9:05 AM EST [facility] Work Phone: CBC W Auto Different ial panel - Blood [facility] End: 08-19-2024 CT Head WO contrast CT BRAIN WO IVCON Radiology STAT Injury of head, initial encounter 1 Occurrences starting 07/21/2023 until 08/19/2024 [facility] Work Phone: Comment on above: 1 Occurrences starti ng 07/21/2023 until 08/19/2024 Fat [Mass/mass] in Stool [facility] Fat.neutral [Presenc e] in Stool [facility] End: 05-10-2025 MR Brain WO and W contrast IV MRI BRAIN WO/W IVCON Radiology Routine Cognitive impairment, mild, so stated 1 Occurrences starting 04/10/2024 until 05/10/2025 [facility] Work Phone: Comment on above: 1 Occurrences starti ng 04/10/2024 until 05/10/2025 Ova and parasites identified in Unspecified specimen by Light microscopy [facility] Patient Education [facility] Work Phone: Patient referral [facility] Work Phone: UA DIP, URINE (POC) UA DIP, URIN E (POC) Lab Routine Dysuria Ordered: 12/18/2021 [facility] Work Phone: Comment on above: Ordered: 12/18/2021 UA DIP, URINE (POC) UA DIP, URIN E (POC) Lab Routine Dysuria Ordered: 10/14/2022 [facility] Work Phone: Comment on above: Ordered: 10/14/2022 [facility] End: 10-05-2024 US Kidney - bilateral and Urinary bladder US KIDNEY/BLADDER Radiology [facility] Acute left flank pain 1 Occurrences starting 09/06/2023 until 10/05/2024 [facility] Work Phone: Comment on above: 1 Occurrences starti ng 09/06/2023 until 10/05/2024 [facility] Immunizations Immunization Date Immunization Notes Care Provider [facility] 11-19-2023 tetanus toxoid, redu andrea diphtheria toxoid, and acellular pertussis vaccine, adsorbed Dr. Bjorn Soares MD Work Phone: [facility] 03-17-2023 respiratory syncytia l virus (RSV) vaccine, unspecified formulation Tony Soares MD Work Phone: [facility] 03-15-2023 pneumococcal Conjuga te, unspecified formulation Tony Soares MD Work Phone: [facility] Work Phone: 03-15-2023 pneumococcal (PCV20) vaccine, 20 valent (PREVNAR 20) Tony Soares MD Work Phone: [facility] 07-07-2021 tetanus toxoid, redu andrea diphtheria toxoid, and acellular pertussis vaccine, adsorbed Tony Soares MD Work Phone: [facility] 09-13-2020 COVID-19 vaccine, ag e 12+ yr (CardSpring-Froont - PURPLE TOP) Tony Soares MD Work Phone: [facility] 08-30-2018 zoster vaccine recombinant Tony Soares MD Work Phone: [facility] 02-15-2018 influenza virus vaccine, unspecified formulation Tony Soares MD Work Phone: [facility] 12-11-2017 zoster vaccine recombinant Tony Soares MD Work Phone: [facility] 12-07-2017 zoster vaccine recombinant Tony Soares MD Work Phone: [facility] 02-15-2017 influenza, high dose seasonal, preservative-free Tony Soares MD Work Phone: [facility] 12-08-2008 pneumococcal polysaccharide vaccine, 23 valent Tony Soares MD Work Phone: [facility] Payers Date Payer Category Payer Self-pay [id number] 2023 Private Health Insurance [id number] 2023 Medicare [id number] 2023 Private Health Insurance [id number] 2014 Unknown HOSPITAL/MEDICAL GENERIC MEDICAL GENERIC [id number] 2014-Present [phone] [address] [facility] [place] [address] Indemnity [id number] 2014 Unknown HOSPITAL/MEDICAL GENERIC MEDICAL GENERIC [id number] 2014-Present [phone] [address] [place] [address] Indemnity [id number] 2004 Medicare MEDICARE MEDICAR E A AND B [id number] 2004-Present [id number] [place] [id number] Medicare [id number] 2004 Medicare [id number] 2004 Medicare [id number] Unknown COMMERCIAL OTHER [id number] Unknown [id number] .2.462 Unknown [id number] 2.16.840.1.222230.3.579 .2.462 Unknown [id number] 2.16.840.1.788875.3.579 .2.462 Unknown [id number] 2.16.840.1.409685.3.579 .2.462 Unknown [id number] 2.16.840.1.398409.3.579 .2.462 Unknown [id number] 2.16.840.1.088204.3.579 .2.462 Unknown [id number] 2.16.840.1.743401.3.579 .2.462 Unknown [id number] 2.16.840.1.515539.3.579 .2.462 Unknown [id number] 2.16.840.1.841061.3.579 .2.462 Unknown [id number] 2.16.840.1.228258.3.579 .2.462 Unknown [id number] 2.16.840.1.595682.3.579 .2.462 Unknown [id number] 2.16.840.1.051902.3.579 .2.462 Unknown [id number] 2.16.840.1.238103.3.579 .2.462 Unknown [id number] 2.16.840.1.744971.3.579 .2.462 Unknown [id number] 2.16.840.1.750189.3.579 .2.462 Unknown [id number] 2.16.840.1.353378.3.579 .2.462 Unknown [id number] 2.16.840.1.140576.3.579 .2.462 Unknown [id number] 2.16.840.1.322310.3.579 .2.462 Unknown [id number] 2.16.840.1.854346.3.579 .2.462 Unknown [id number] 2.16.840.1.874926.3.579 .2.462 Unknown [id number] 2.16.840.1.163385.3.579 .2.462 Unknown [id number] 2.16840.1.051009.3.579 .2.462 Unknown [id number] 2.16840.1.532592.3.579 .2.462 Unknown [id number] 2.16840.1.392643.3.579 .2.462 Unknown [id number] 2.16840.1.679128.3.579 .2.462 Social History Date Type Detail Facility Start: 05-13-2016 End: 01-26-2024 Tobacco smoking status NHIS Ex-smoker [facility] Start: 05-03-1978 End: 05-03-1988 History of tobacco use Current smoker [facility] Start: 05-13-2016 End: 11-28-2024 Cigarettes smoked current (pack per day) - Reported 0.5 [facility] Start: 05-13-2016 End: 01-26-2024 Tobacco use and exposure Smokeless tobacco non-user [facility] Start: 07-21-2021 End: 06-27-2024 Alcohol intake Current non-drinker of alcohol (finding) [facility] Start: 01-24-2018 History SDOH Alcohol Frequency 1 [facility] Start: 01-24-2018 History SDOH Social Connections Phone 5 [facility] Start: 01-24-2018 History SDOH Social Connections Living 4 [facility] Start: 01-24-2018 History SDOH Transpo rt Med 2 [facility] Start: 01-24-2018 Education 13 [facility] Start: 1940 Sex Assigned At Not on file [facility] Start: 07-11-2021 End: 12-22-2021 Exposure to SARS-CoV-2 (event) Not sure [facility] Start: 05-03-1978 End: 05-03-1988 History of tobacco use Cigarette Smoker [facility] Start: 10-20-2022 End: 04-12-2023 Tobacco smoking status NHIS Unknown if ever smoked [facility] Start: 06-03-2020 None [facility] Start: 06-03-2020 With Family [facility] Start: 06-03-2020 Cigarettes [facility] Start: 1940 Sex Assigned At Female [facility] Start: 01-24-2018 End: 11-28-2024 Social connection and isolation panel [facility] Start: 05-11-2016 Attends [employer] Not on file [facility] Work Phone: Are you now , , , , never or living with a partner? [facility] How often to you hav e a drink containing alcohol? Never [facility] Do you feel stress - tense, restless, nervous, or anxious, or unable to sleep at night because your mind is troubled all the time - these days [OSQ] Not at all [facility] (I/We) worried maricarmen er (my/our) food would run out before (I/we) got money to buy more. Never true [facility] Start: 08-01-2024 Sex Female (finding) [facility] Shift, Over 40 Females s, oil, or water company threatened to shut off services in your home in past 12Mo No [facility] Do you feel stress - tense, restless, nervous, or anxious, or unable to sleep at night because your mind is troubled all the time - these days [OSQ] To some extent [facility] NEGATED: Highlighted row [facility] Goals Date Patient Goal Desired Activity /State Personal health goal Functional Status Date Assessment Result Facility 11-28-2024 Total score [AUDIT-C] 0 11/29/19 8:01 AM EDT User, Steffanie [facility] 11-28-2024 How often to you hav e a drink containing alcohol? Never 11/28/2024 8:01 AM EDT User, Steffanie Never [facility] 11-28-2024 Functional status Patient does n ot drink 11/28/2024 8:01 AM EDT User, Steffanie Patient does not drink [facility] 11-28-2024 How often do you hav e 6 or more drinks on 1 occasion? Never 11/28/2024 8:01 AM EDT UserSteffanie Never [facility] 06-18-2024 Functional status Ambulates [facility] Work Phone: Mental Status Date Assessment Result Facility 09-09-2024 Cognitive function Voice/Name [facility] Work Phone: 06-18-2024 Cognitive function Voice/Name [facility] Work Phone: 04-05-2024 Cognitive function Voice/Name [facility] Work Phone: 02-17-2023 Cognitive function Voice/Name [facility] Work Phone: 11-12-2022 Cognitive function Level Of Cons ciousness Awake;Alert;Appropriate;Follow s Commands [facility] Work Phone: 11-12-2022 Cognitive function Voice/Name [facility] Work Phone: Clinical Notes 08-12-2021 to 12-26-2024 Telephone Encounter - Mellissa Palma MA - 12/26/2024 8:53 AM EDTTelephone Encounter - Mellissa Palma MA - 12/26/2024 8:53 AM Rahul Kimball APRN.CNP - 11/28/2024 8:21 AM EDT Note Date & Type Note Facility 12-26-2024 Telephone encounter Note Faxed with received confirmation on 12/19/24. Mellissa Palma MA [facility] 12-26-2024 Miscellaneous Notes Faxed with received confirmation on 12/19/24. Mellissa Palma MA Cornelia with [employer] is calling to check on status of Passport Waiver form that was faxed to the office on 12/07 and 12/12. Please call Cornelia on status of form. Marguerite Valdes LPN documented in this encounter [facility] 12-19-2024 Telephone encounter Note Cornelia meyers [employer] is calling to check on status of Passport Waiver form that was faxed to the office on 12/07 and 12/12. Please call Cornelia on status of form. Marguerite Valdes LPN [facility] 11-28-2024 Note HNO ID: [id number] Author: RAHUL ESPOSITO APRN.ASSISTED LIVING CARE MANAGER Service: ? Author Type: Nurse Practitioner Type: Progress Notes Filed: 11/28/2024 09:22 Note Text: Jil Díaz is a 84 year old female here for a Medicare wellness visit. Medicare Health Risk Assessment General Health Fair Exercise: Minutes/Day 0 min Exercise: Days/Week 0 days Alcohol: Daily Use Never Alcohol: Drinks/Day Patient does not drink Alcohol: 6 or more drinks Never Feel off balance Yes Concerns: Teeth/Dentures No Concerns: Sexual function Decline Troubled by feelings Irritable Frequency: Eating healthy diet Several days ADLs requiring help Grocery shopping; Cooking; Handling finances; Taking medications; Driving Safety precautions in home/vehicle Yes Smoke, vape, chews tobacco No Difficulty hearing Yes Difficulty seeing No Current Providers Specialists: I have reviewed specialist-related care of the patient in the medical record. Current care team: Patient Care Team: Tony Soares MD as PCP - General (Family Medicine) Felton Yancey MD (Pain Management) Ender Lucio MD (Dermatology) Romie Cueto MD (Cardiology) Levy Ibarra MD as Physician (Cardiology) Podlogar, ALVIN Shepard.ASSISTED LIVING CARE MANAGER as Photovoltaic Fabrication Technician (Family Medicine) Rahul Esposito APRN.CNP as Photovoltaic Fabrication Technician (Family Medicine) Medical/Family history review Reviewed and updated problem list, medical/surgical/family/social history, medications, and allergies. Opioid use review Opioid Medications (last 90 days) No data to display Anxiety/Depression screening CAMERON-7 Score: 5 (Mild Anxiety) Recommendation: no further intervention at this time Cognitive screening Functional Observation Was the patient's Timed Up AND Go test unsteady or >= 12 seconds? No Advance Care Planning Surrogate decision maker and/or advance care plan documented Measurements BP 176/84 Pulse (!) 50 Wt 57 kg (125 lb 10.6 oz) BMI 21.57 kg/m? Vision Screening: Follows with optometry/ophthalmology Assessment/Plan Medicare annual wellness visit, subsequent (Z00.00) - Counseled on healthy diet and regular exercise - Fall avoidance information provided - Personalized prevention plan provided - Discussed need for and benefit of weight loss. BMI 21.57 kg/(m2) Chief Complaint Patient presents with: Physical HPI Jil Díaz is a 84 year old female who presents here today for Above Complaints.. Patient presents for annual exam. Patient reports her [facility] is no longer working and is requesting recommendation for alternative. Past medical history, appointments, medications, allergies reviewed. Previous Medical History PAST MEDICAL HISTORY Diagnosis Date Aortic stenosis moderate Atrial fibrillation (HCC) 04/21/2023 Basal cell carcinoma Cataracts, bilateral s/p removal Chronic kidney disease (CKD), stage III (moderate) (HCC) Chronic urticaria seeing Dr. Card Concussion 05/2015 fell off step stool COVID-19 GERD (gastroesophageal reflux disease) with esophagitis on EGD Glaucoma Hamstring strain bilateral legs Heart murmur History of shingles 2015 Hyperlipidemia Hypertension Insomnia Macular degeneration Melanoma (HCC) Memory impairment Mitral regurgitation Dr. Ibarra Post herpetic neuralgia lidocaine patch Premature contractions, atrial PUD (peptic ulcer disease) 01/2023 Renal cysts, acquired, bilateral Visual hallucinations Previous Surgical History PAST SURGICAL HISTORY Procedure [...] on File Prior to Visit Medication Sig atorvastatin (LIPITOR) 20 mg tablet Take 1 tablet by mouth once daily. famotidine (PEPCID) 40 mg tablet Take 1 tablet by mouth two times a day. apixaban (ELIQUIS) 5 mg tab(s) Take 5 mg by mouth two times a day. potassium chloride 20 mEq TbER Take 20 mEq by mouth once daily. furosemide (LASIX) 40 mg tablet Take 40 mg by mouth once (more content not included)... [facility] 11-28-2024 History of Presen t illness Narrative Images from the original note were not included. Jil Díaz is a 84 year old female here for a Medicare wellness visit. Medicare Health Risk Assessment General Health Fair Exercise: Minutes/Day 0 min Exercise: Days/Week 0 days Alcohol: Daily Use Never Alcohol: Drinks/Day Patient does not drink Alcohol: 6 or more drinks Never Feel off balance Yes Concerns: Teeth/Dentures No Concerns: Sexual function Decline Troubled by feelings Irritable Frequency: Eating healthy diet Several days ADLs requiring help Grocery shopping; Cooking; Handling finances; Taking medications; Driving Safety precautions in home/vehicle Yes Smoke, vape, chews tobacco No Difficulty hearing Yes Difficulty seeing No Current Providers Specialists: I have reviewed specialist-related care of the patient in the medical record. Current care team: Patient Care Team: Tony Soares MD as PCP - General (Family Medicine) Felton Yancey MD (Pain Management) nEder Lucio MD (Dermatology) Romie Cueto MD (Cardiology) Levy Ibarra MD as Physician (Cardiology) Podlogar, ALVIN Shepard.ASSISTED LIVING CARE MANAGER as Photovoltaic Fabrication Technician (Family Medicine) Rahul Esposito APRN.ASSISTED LIVING CARE MANAGER as Photovoltaic Fabrication Technician (Family Medicine) Medical/Family history review Reviewed and updated problem list, medical/surgical/family/social history, medications, and allergies. Opioid use review Opioid Medications (last 90 days) No data to display Anxiety/Depression screening CAMERON-7 Score: 5 (Mild Anxiety) Recommendation: no further intervention at this time Cognitive screening Functional Observation Was the patient's Timed Up & Go test unsteady or >= 12 seconds? No Advance Care Planning Surrogate decision maker and/or advance care plan documented Measurements BP 176/84 Pulse (!) 50 Wt 57 kg (125 lb 10.6 oz) BMI 21.57 kg/m Vision Screening: Follows with optometry/ophthalmology Assessment/Plan Medicare annual wellness visit, subsequent (Z00.00) - Counseled on healthy diet and regular exercise - Fall avoidance information provided - Personalized prevention plan provided - Discussed need for and benefit of weight loss. BMI 21.57 kg/(m^2) Chief Complaint Patient presents with: Physical HPI Jil Díaz is a 84 year old female who presents here today for Above Complaints.. Patient presents for annual exam. Patient reports her [facility] is no longer working and is requesting recommendation for alternative. Past medical history, appointments, medications, allergies reviewed. Previous Medical History PAST MEDICAL HISTORY Diagnosis Date Aortic stenosis moderate Atrial fibrillation (HCC) 04/21/2023 Basal cell carcinoma Cataracts, bilateral s/p removal Chronic kidney disease (CKD), stage III (moderate) (HCC) Chronic urticaria seeing Dr. Card Concussion 05/2015 fell off step stool COVID-19 GERD (gastroesophageal reflux disease) with esophagitis on EGD Glaucoma Hamstring strain bilateral legs Heart murmur History of shingles 2015 Hyperlipidemia Hypertension Insomnia Macular degeneration Melanoma (HCC) Memory impairment Mitral regurgitation Dr. Ibarra Post herpetic neuralgia lidocaine patch Premature contractions, atrial PUD (peptic ulcer disease) 01/2023 Renal cysts, acquired, bilateral Visual hallucinations Previous Surgical History PAST SURGICAL HISTORY Procedure [...] on File Prior to Visit Medication Sig atorvastatin (LIPITOR) 20 mg tablet Take 1 tablet by mouth once daily. famotidine (PEPCID) 40 mg tablet Take 1 tablet by mouth two times a day. apixaban (ELIQUIS) 5 mg tab(s) Take 5 mg by mouth two times a day. potassium chloride 20 mEq TbER Take 20 mEq by mouth once daily. furosemide (LASIX) 40 mg tablet Take 40 mg by mouth once daily. dilTIAZem CD (CARDIZEM CD, CARTIA XT) 120 mg 24 hr capsule Take 1 capsule by mouth once daily. losartan (COZAAR) 50 mg tablet Take 1 [...] Drop in both eyes once daily. vit C,X-Dy-myrvz-lutein-zeaxan (PRESERVISION AREDS-2) 250-90-40-1 mg Take 1 tablet [...] Social History Tobacco Use Smoking status: Former Current packs/day: 0.00 Average packs/day: 0.5 packs/day for 10.0 years (5.0 ttl pk-yrs) Types: Cigarettes Start date: 05/03/1978 Quit date: 05/03/1988 Years since quittin.5 Smokeless tobacco: Never Substance Use Topics Alcohol use: No Drug use: No Review of Symptoms REVIEW OF SYSTEMS SEE HPI EXAM: BP 134/79 Pulse (!) 50 Wt 57 kg (125 lb 10.6 oz) BMI 21.57 kg/m General Appearance: Well appearing, alert, in no acute distress, well-hydrated, well nourished.. Skin: Skin color, texture, turgor normal, no suspicious rashes or lesions. Lungs: Lungs clear to auscultation. No wheezing, rhonchi, rales.. Heart: RRR without murmur, gallop, or rubs. No ectopy. Abdomen: Normal abdominal exam, Abdomen soft, non-tender. Bowel sounds normal. No masses, organomegaly Musculoskeletal: No joint swelling, deformity, or tenderness Peripheral Pulses: Normal. Neurologic: Gait normal. Reflexes normal and symmetric. Sensation grossly intact.. Health Maintenance List Depression Screening Never done Anxiety Screening Never done Medicare Annual Wellness Visit Never done Advance Directive Discussion Never done Influenza Vaccine(1) due on 01/01/2025 Diabetes Screening due on 06/27/2027 DTaP,Tdap,Td Vaccine(4 - Td or Tdap) due on 11/18/2033 Bone Density Screening Completed RSV Vaccine Completed Shingrix Vaccine Completed Pneumococcal Vaccine: 50+ Completed ASSESSMENT/PLAN: 1. Medicare annual wellness visit, subsequent - ICD9: V70.0, ICD10: Z00.00 (primary diagnosis) - Counseled on healthy diet and regular exercise - Discussed need and benefit for weight loss. BMI 21.57 kg/(m^2) - Follow up for annual exam in one year 2. Atrial fibrillation, unspecified type (HCC) - ICD9: 427.31, ICD10: I48.91 -Follows with [facility] 3. Primary hypertension - ICD9: 401.9, ICD10: I10 - Controlled - Continue current medications - Recommend home blood pressure monitoring, to bring results to next visit - Encouraged sodium restriction, DASH or Mediterranean diet - Recommend regular aerobic exercise 4. Stage 3 chronic kidney disease, unspecified whether stage 3a or 3b CKD (HCC) - ICD9: 585.3, ICD10: N18.30 - eGFR: 68 Stable - Counseled on avoiding NSAIDs, adequate hydration - Counseled on low sodium diet 5. Cognitive impairment, mild, so stated - ICD9: 331.83, ICD10: G31.84 6. Age-related physical debility - ICD9: 797, ICD10: R54 -uses cane when out with longer walks. 7. Vitamin D deficiency - ICD9: 268.9, ICD10: E55.9 -Continue supplementation 8. Gastroesophageal reflux disease with esophagitis, unspecified whether hemorrhage - ICD9: 530.11, ICD10: K21.00 - Continue treatment with Pepcid 20 mg QD 9. Hyperlipidemia, unspecified hyperlipidemia type - ICD9: 272.4, ICD10: E78.5 - Controlled - Continue current medications - Counseled on healthy diet and regular exercise 10. Pulmonary arterial hypertension (HCC) - ICD9: 416.8, ICD10: I27.21 -Follows with [facility] 11. Mixed urge and stress incontinence - ICD9: 788.33, ICD10: N39.46 -Not currently on medication, well managed Rahul Esposito APRN.COY documented in this encounter [facility] 11-28-2024 Instructions Rahul Esposito APRN.CNP - 11/28/2024 8:21 AM EDT Can try ahsan or xyzal for allergies as zyrtec is ineffective Screening schedule The following prevention plan is recommended: Depression Screening Never done Anxiety Screening Never done Medicare Annual Wellness Visit Never done Advance Directive Discussion Never done WHAT YOU CAN DO TO PREVENT FALLS Many falls can be prevented. By making some changes, you can lower your chances of falling. Four things YOU can do to prevent falls for you* and your caregiver 1. Begin a regular exercise program Exercise is one of the most important ways to lower your chances of falling. It makes you stronger and helps you feel better. Exercises that improve balance and coordination (like [place]) are the most helpful. Lack of exercise leads to weakness and increases your chances of falling. Ask your doctor or health care provider about the best type of exercise program for you. 2. Have your health care provider review your medicines Have your doctor or pharmacist review all the medicines you take, even rrim-kdz-fyaotce medicines. As you get older, the way medicines work in your body can change. Some medicines, or combinations of medicines, can make you sleepy or dizzy and can cause you to fall. 3. Have your vision checked Have your eyes checked by an eye doctor at least once a year. You may be wearing the wrong glasses or have a condition like glaucoma or cataracts that limits your vision. Poor vision can increase your chances of falling. 4. Make your home safer About half of all falls happen at home. To make your home safer: Remove things you can trip over (like papers, books, clothes, and shoes) from stairs and places where you walk. Remove small throw rugs or use double-sided tape to keep the rugs from slipping. Keep items you use often in cabinets you can reach easily without using a step stool. Have grab bars put in next to your toilet and in the tub or shower. Use non-slip mats in the bathtub and on shower floors. Improve the lighting in your home. As you get older, you need brighter lights to see well. Hang light-weight curtains or shades to reduce glare. Have handrails and lights put in on all staircases. Wear shoes both inside and outside the house. Avoid going barefoot or wearing slippers. For more information, contact: Centers for Disease Control and Prevention www.cdc.gov/injury * This information may not apply if you have certain medical conditions. documented in this encounter [facility] 11-16-2024 Note HNO ID: [id number] Author: BRIELLE JERRY MA Service: ? Author Type: Picture Enlarger Type: Progress Notes Filed: 11/16/2024 12:50 Note Text: POPULATION HEALTH NAVIGATION OUTREACH Action/FYI LVM MYCHART MESSAGE SENT Topic Due (Y or N) Comments Medicare Wellness y PCP Follow up Colorectal Cancer Screening Controlling Blood Pressure A1C HCC y Flu Vaccine Care Everywhere Reviewed MyChart Activation Updated Appointment Note Reason for Outreach Care Gap/HCC or Scheduling Wellness Visits Care Gaps due: Medicare Annual Wellness Visit Patient Contacted: Unable or unnecessary to reach patient: Left message MyChart message sent HCC related Navigation Signature: Brielle Jerry MA November 16, 2024 12:47 PM [facility] 11-16-2024 History of Presen t illness Narrative POPULATION HEALTH NAVIGATION OUTREACH Action/FYI LVM MYCHART MESSAGE SENT Topic Due (Y or N) Comments Medicare Wellness y PCP Follow up Colorectal Cancer Screening Controlling Blood Pressure A1C HCC y Flu Vaccine Care Everywhere Reviewed MyChart Activation Updated Appointment Note Reason for Outreach Care Gap/HCC or Scheduling Wellness Visits Care Gaps due: Medicare Annual Wellness Visit Patient Contacted: Unable or unnecessary to reach patient: Left message MyChart message sent HCC related Navigation Signature: Brielle Jerry MA November 16, 2024 12:47 PM documented in this encounter [facility] 11-16-2024 Note Patient Outreach (ADRI OSEGUERAAV) JIL DÍAZ ([id number]) 1940 F IPA Date Time Provider Department 11/16/24 BRIELLE JERRY During your visit today, we recorded the following information about you: Brielle Jerry MA 11/16/2024 12:50 PM Signed POPULATION HEALTH NAVIGATION OUTREACH Action/FYI LVM IntransaHART MESSAGE SENT Topic Due (Y or N) Comments Medicare Wellness y PCP Follow up Colorectal Cancer Screening Controlling Blood Pressure A1C HCC y Flu Vaccine Care Everywhere Reviewed MyChart Activation Updated Appointment Note Reason for Outreach Care Gap/HCC or Scheduling Wellness Visits Care Gaps due: Medicare Annual Wellness Visit Patient Contacted: Unable or unnecessary to reach patient: Left message MyChart message sent HCC related Navigation Signature: Brielle Jerry MA November 16, 2024 12:47 PM Allergies As of Date: 11/16/2024 Noted Allergy Reaction OXYCODONE 03/11/2017 9 - Itching Date Reviewed: 06/27/2024 Reviewed by: Beatriz Isaac LPN - Fully Assessed Reason for Visit: Population Health Navigation Outreach [3910] Cmt: Saturnino JALLOHGERMAN CHIVO PCSA Prescriptions as of 11/16/2024 - atorvastatin (LIPITOR) 20 mg tablet Take 1 tablet by mouth once daily. - famotidine (PEPCID) 40 mg tablet Take 1 tablet by mouth two times a day. - apixaban (ELIQUIS) 5 mg tab(s) Take 5 mg by mouth two times a day. - potassium chloride 20 mEq TbER Take 20 mEq by mouth once daily. - furosemide (LASIX) 40 mg tablet Take 40 mg by mouth once daily. - dilTIAZem CD (CARDIZEM CD, CARTIA XT) 120 mg 24 hr capsule Take 1 capsule by mouth once daily. - losartan (COZAAR) 50 mg tablet Take 1 tablet by mouth once daily. - dorzolamide-timolol (COSOPT) 22.3-6.8 mg/mL ophthalmic solution Use 1 Drop in both eyes twice daily. - brimonidine (ALPHAGAN) 0.2 % ophthalmic solution - gabapentin (NEURONTIN) 300 mg capsule Take 1 tablet morning and bedtime May take one tablet in afternoon as needed for pain Per Dr. Martinez - lidocaine (LIDODERM) 5 % Apply 1 Patch as directed every 12 hours. - latanoprost (XALATAN) 0.005 % ophthalmic solution Use 1 Drop in both eyes once daily. - vit C,M-Oq-mhufa-lutein-zeaxan (PRESERVISION AREDS-2) 250-90-40-1 mg Take 1 tablet by mouth twice daily at 6AM and 9PM. - BIOTIN ORAL Take 5,000 mg by mouth once daily. - Cholecalciferol, Vitamin D3, 25 mcg (1,000 unit) cap Take 1,000 Units by mouth once daily. - CYANOCOBALAMIN, VITAMIN B-12, (VITAMIN B-12 ORAL) Take 1,000 mg by mouth once daily. Problem List As Of Date 11/16/2024 Noted Resolved Chronic urticaria [L50.8] 05/13/2016 Hypertension [I10] Insomnia [G47.00] Post herpetic neuralgia [B02.29] Heart murmur [R01.1] GERD (gastroesophageal reflux disease) [K21.9] Hyperlipidemia [E78.5] Melanoma (HCC) [C43.9] 09/07/2022 VILLEGAS (dyspnea on exertion) [R06.09] 11/20/2017 Bilateral carotid artery disease (HCC) [I77.9] 11/20/2017 Mitral regurgitation [I34.0] Fall [W19.XXXA] 12/19/2018 Aortic stenosis [I35.0] OAB (overactive bladder) [N32.81] 04/09/2021 Mixed urge and stress incontinence [N39.46] 04/09/2021 Pulmonary arterial hypertension (HCC) [I27.21] 09/07/2022 Chronic kidney disease, stage 3a (HCC) [N18.31] 09/13/2023 Atrial fibrillation (HCC) [I48.91] 04/21/2023 Glaucoma [H40.9] 09/15/2023 Gait disturbance [R26.9] 05/04/2024 Encounter Status:Closed by BRIELLE JERRY on 11/16/24 [facility] 10-17-2024 History of Presen t illness Narrative POPULATION HEALTH NAVIGATION OUTREACH Action/FYI LVM [employer]Monitor MESSAGE SENT Topic Due (Y or N) Comments Medicare Wellness Y PCP Follow up Colorectal Cancer Screening Controlling Blood Pressure A1C HCC Y Flu Vaccine Care Everywhere Reviewed 2Vancouverhart Activation Updated Appointment Note Reason for Outreach Care Gap/HCC or Scheduling Wellness Visits Care Gaps due: Medicare Annual Wellness Visit Patient Contacted: Unable or unnecessary to reach patient: Left message MyChart message sent HCC related Navigation Signature: Brielle Jerry MA October 17, 2024 4:22 PM documented in this encounter [facility] 10-17-2024 Note HNO ID: [id number] Author: BRIELLE JERRY MA Service: ? Author Type: Picture Enlarger Type: Progress Notes Filed: 10/17/2024 16:26 Note Text: POPULATION HEALTH NAVIGATION OUTREACH Action/FYI LVM MYCHART MESSAGE SENT Topic Due (Y or N) Comments Medicare Wellness Y PCP Follow up Colorectal Cancer Screening Controlling Blood Pressure A1C HCC Y Flu Vaccine Care Everywhere Reviewed MyChart Activation Updated Appointment Note Reason for Outreach Care Gap/HCC or Scheduling Wellness Visits Care Gaps due: Medicare Annual Wellness Visit Patient Contacted: Unable or unnecessary to reach patient: Left message MyChart message sent HCC related Navigation Signature: Brielle Jerry MA October 17, 2024 4:22 PM [facility] 10-17-2024 Note Patient Outreach (NE TNAV) JIL DÍAZ ([id number]) 1940 F IPA Date Time Provider Department 10/17/24 BRIELLE JERRY NETNAV During your visit today, we recorded the following information about you: Brielle Jerry MA 10/17/2024 4:26 PM Signed POPULATION HEALTH NAVIGATION OUTREACH Action/FYI LVM MYCHART MESSAGE SENT Topic Due (Y or N) Comments Medicare Wellness Y PCP Follow up Colorectal Cancer Screening Controlling Blood Pressure A1C HCC Y Flu Vaccine Care Everywhere Reviewed MyChart Activation Updated Appointment Note Reason for Outreach Care Gap/HCC or Scheduling Wellness Visits Care Gaps due: Medicare Annual Wellness Visit Patient Contacted: Unable or unnecessary to reach patient: Left message MyChart message sent HCC related Navigation Signature: Brielle Jerry MA October 17, 2024 4:22 PM Allergies As of Date: 10/17/2024 Noted Allergy Reaction OXYCODONE 03/11/2017 9 - Itching Date Reviewed: 06/27/2024 Reviewed by: Beatriz Isaac LPN - Fully Assessed Reason for Visit: Population Health Navigation Outreach [3910] Cmt: ANDERSON WALDRON PCSA Prescriptions as of 10/17/2024 - atorvastatin (LIPITOR) 20 mg tablet Take 1 tablet by mouth once daily. - famotidine (PEPCID) 40 mg tablet Take 1 tablet by mouth two times a day. - apixaban (ELIQUIS) 5 mg tab(s) Take 5 mg by mouth two times a day. - potassium chloride 20 mEq TbER Take 20 mEq by mouth once daily. - furosemide (LASIX) 40 mg tablet Take 40 mg by mouth once daily. - dilTIAZem CD (CARDIZEM CD, CARTIA XT) 120 mg 24 hr capsule Take 1 capsule by mouth once daily. - losartan (COZAAR) 50 mg tablet Take 1 tablet by mouth once daily. - dorzolamide-timolol (COSOPT) 22.3-6.8 mg/mL ophthalmic solution Use 1 Drop in both eyes twice daily. - brimonidine (ALPHAGAN) 0.2 % ophthalmic solution - gabapentin (NEURONTIN) 300 mg capsule Take 1 tablet morning and bedtime May take one tablet in afternoon as needed for pain Per Dr. Martinez - lidocaine (LIDODERM) 5 % Apply 1 Patch as directed every 12 hours. - latanoprost (XALATAN) 0.005 % ophthalmic solution Use 1 Drop in both eyes once daily. - vit C,S-Yt-ulxhi-lutein-zeaxan (PRESERVISION AREDS-2) 250-90-40-1 mg Take 1 tablet by mouth twice daily at 6AM and 9PM. - BIOTIN ORAL Take 5,000 mg by mouth once daily. - Cholecalciferol, Vitamin D3, 25 mcg (1,000 unit) cap Take 1,000 Units by mouth once daily. - CYANOCOBALAMIN, VITAMIN B-12, (VITAMIN B-12 ORAL) Take 1,000 mg by mouth once daily. Problem List As Of Date 10/17/2024 Noted Resolved Chronic urticaria [L50.8] 05/13/2016 Hypertension [I10] Insomnia [G47.00] Post herpetic neuralgia [B02.29] Heart murmur [R01.1] GERD (gastroesophageal reflux disease) [K21.9] Hyperlipidemia [E78.5] Melanoma (HCC) [C43.9] 09/07/2022 VILLEGAS (dyspnea on exertion) [R06.09] 11/20/2017 Bilateral carotid artery disease (HCC) [I77.9] 11/20/2017 Mitral regurgitation [I34.0] Fall [W19.XXXA] 12/19/2018 Aortic stenosis [I35.0] OAB (overactive bladder) [N32.81] 04/09/2021 Mixed urge and stress incontinence [N39.46] 04/09/2021 Pulmonary arterial hypertension (HCC) [I27.21] 09/07/2022 Chronic kidney disease, stage 3a (HCC) [N18.31] 09/13/2023 Atrial fibrillation (HCC) [I48.91] 04/21/2023 Glaucoma [H40.9] 09/15/2023 Gait disturbance [R26.9] 05/04/2024 Encounter Status:Closed by BRIELLE JERRY on 10/17/24 [facility] 09-26-2024 Note HNO ID: [id number] Author: BRIELLE JERRY MA Service: ? Author Type: Picture Enlarger Type: Progress Notes Filed: 09/26/2024 08:42 Note Text: POPULATION HEALTH NAVIGATION OUTREACH Action/FYI jobandtalent MESSAGE SENT Topic Due (Y or N) Comments Medicare Wellness y PCP Follow up Colorectal Cancer Screening Controlling Blood Pressure A1C HCC y Flu Vaccine Care Everywhere Reviewed MyChart Activation Updated Appointment Note Reason for Outreach Care Gap/HCC or Scheduling Wellness Visits Care Gaps due: Medicare Annual Wellness Visit Patient Contacted: Unable or unnecessary to reach patient: Left message 2Vancouverhart message sent Navigation Signature: Brielle Jerry MA September 26, 2024 7:44 AM [facility] 09-26-2024 History of Presen t illness Narrative POPULATION HEALTH NAVIGATION OUTREACH Action/FYI LVM MYCHART MESSAGE SENT Topic Due (Y or N) Comments Medicare Wellness y PCP Follow up Colorectal Cancer Screening Controlling Blood Pressure A1C HCC y Flu Vaccine Care Everywhere Reviewed MyChart Activation Updated Appointment Note Reason for Outreach Care Gap/HCC or Scheduling Wellness Visits Care Gaps due: Medicare Annual Wellness Visit Patient Contacted: Unable or unnecessary to reach patient: Left message MyChart message sent Navigation Signature: Brielle Jerry MA September 26, 2024 7:44 AM documented in this encounter [facility] 09-26-2024 Note Patient Outreach (NE TNAV) JIL DÍAZ ([id number]) 1940 F IPA Date Time Provider Department 09/26/24 BRIELLE JERRY NETNAV During your visit today, we recorded the following information about you: Brielle Jerry MA 09/26/2024 8:42 AM Signed POPULATION HEALTH NAVIGATION OUTREACH Action/FYI LV MYCHART MESSAGE SENT Topic Due (Y or N) Comments Medicare Wellness y PCP Follow up Colorectal Cancer Screening Controlling Blood Pressure A1C HCC y Flu Vaccine Care Everywhere Reviewed MyChart Activation Updated Appointment Note Reason for Outreach Care Gap/HCC or Scheduling Wellness Visits Care Gaps due: Medicare Annual Wellness Visit Patient Contacted: Unable or unnecessary to reach patient: Left message 2Vancouverhart message sent Navigation Signature: Brielle Jerry MA September 26, 2024 7:44 AM Allergies As of Date: 09/26/2024 Noted Allergy Reaction OXYCODONE 03/11/2017 9 - Itching Date Reviewed: 06/27/2024 Reviewed by: Beatriz Isaac LPN - Fully Assessed Reason for Visit: Population Health Navigation Outreach [3910] Cmt: ACO SHARMILA WALDRON PCSA Prescriptions as of 09/26/2024 - atorvastatin (LIPITOR) 20 mg tablet Take 1 tablet by mouth once daily. - famotidine (PEPCID) 40 mg tablet Take 1 tablet by mouth two times a day. - apixaban (ELIQUIS) 5 mg tab(s) Take 5 mg by mouth two times a day. - potassium chloride 20 mEq TbER Take 20 mEq by mouth once daily. - furosemide (LASIX) 40 mg tablet Take 40 mg by mouth once daily. - dilTIAZem CD (CARDIZEM CD, CARTIA XT) 120 mg 24 hr capsule Take 1 capsule by mouth once daily. - losartan (COZAAR) 50 mg tablet Take 1 tablet by mouth once daily. - dorzolamide-timolol (COSOPT) 22.3-6.8 mg/mL ophthalmic solution Use 1 Drop in both eyes twice daily. - brimonidine (ALPHAGAN) 0.2 % ophthalmic solution - gabapentin (NEURONTIN) 300 mg capsule Take 1 tablet morning and bedtime May take one tablet in afternoon as needed for pain Per Dr. Martinez - lidocaine (LIDODERM) 5 % Apply 1 Patch as directed every 12 hours. - latanoprost (XALATAN) 0.005 % ophthalmic solution Use 1 Drop in both eyes once daily. - vit C,M-Sl-gxhmg-lutein-zeaxan (PRESERVISION AREDS-2) 250-90-40-1 mg Take 1 tablet by mouth twice daily at 6AM and 9PM. - BIOTIN ORAL Take 5,000 mg by mouth once daily. - Cholecalciferol, Vitamin D3, 25 mcg (1,000 unit) cap Take 1,000 Units by mouth once daily. - CYANOCOBALAMIN, VITAMIN B-12, (VITAMIN B-12 ORAL) Take 1,000 mg by mouth once daily. Problem List As Of Date 09/26/2024 Noted Resolved Chronic urticaria [L50.8] 05/13/2016 Hypertension [I10] Insomnia [G47.00] Post herpetic neuralgia [B02.29] Heart murmur [R01.1] GERD (gastroesophageal reflux disease) [K21.9] Hyperlipidemia [E78.5] Melanoma (HCC) [C43.9] 09/07/2022 VILLEGAS (dyspnea on exertion) [R06.09] 11/20/2017 Bilateral carotid artery disease (HCC) [I77.9] 11/20/2017 Mitral regurgitation [I34.0] Fall [W19.XXXA] 12/19/2018 Aortic stenosis [I35.0] OAB (overactive bladder) [N32.81] 04/09/2021 Mixed urge and stress incontinence [N39.46] 04/09/2021 Pulmonary arterial hypertension (HCC) [I27.21] 09/07/2022 Chronic kidney disease, stage 3a (HCC) [N18.31] 09/13/2023 Atrial fibrillation (HCC) [I48.91] 04/21/2023 Glaucoma [H40.9] 09/15/2023 Gait disturbance [R26.9] 05/04/2024 Encounter Status:Closed by BRIELLE JERRY on 09/26/24 [facility] 09-09-2024 Discharge summary [facility] 09-09-2024 Discharge summary Note Date/Time September 09, 2024 6:58pm [facility] Medical Records Department [address] [place] [address] Emergency Department Summary 09/09/24 MR#: [id number] Acct: [id number] Name: JIL DÍAZ Rep #:[id number] : 1940 84 From: Romaine Rivero MD PCP: Dr. Bjorn Soares MD Status :REG ER Location: ED HPI History of Present Illness Chief Complaint: Confusion Detail of Chief Complaint: Increased confusion from baseline Informant: patient and family (Sign is the primary informant because patient states she does not need to be here.) Onset/Context/Timing Onset: Today and Yesterday Context: Sudden Onset Timing: Intermittent Quality: Apparently was in the street talking to someone that was not there. Location: Not applicable Current Severity: Mild Maximum Severity: Moderate Worsened by: Patient has baseline dementia. Relieved by: Nothing Associated Symptoms Associated Symptoms: None Narrative Narrative: Patient is an 84-year-old woman. She has dementia. She has been seen by gerontologist through the [facility]. She failed her mini mental status exam and was told she could no longer drive. She has not seen by him again until October. She has happily no complaints. She denies headache, change in vision, trouble with speech. She denies cardiac respiratory symptoms. She denies upper respiratory infectious symptoms. She denies GI symptoms. She denies urologic symptoms. Son states she has had UTIs in the past when she has got worse. There are no new medications. She is on apixaban for atrial fibrillation. There is no history of trauma. She also has history hypercholesterolemia. Glaucoma, hypertension. Prior similar symptoms: Yes (UTI) Recent Illness/Hospitalization: No PFSH PFSH Medical History Atrial fibrillation Acute left lumbar radiculopathy Atrial fibrillation Dyspnea on exertion Wears glasses Cancer Ambulates with cane Bladder disease History of renal disease High cholesterol Easy bruising Migraine headache Injury of head and neck Former smoker Leg cramps History of edema History of stress test History of echocardiogram Cardiology follow-up encounter Shortness of breath on exertion LLQ abdominal pain CKD (chronic kidney disease) stage 3, GFR 30-59 ml/min Heart murmur Concussion Chronic urticaria Basal cell carcinoma Aortic stenosis Nonrheumatic mitral (valve) insufficiency Nonrheumatic aortic (valve) insufficiency Secondary pulmonary arterial hypertension Hyperlipidemia Seasonal allergies Anemia Glaucoma GERD (gastroesophageal reflux disease) Essential (primary) hypertension Premature atrial contractions History of shingles History of basal cell cancer History of rectocele History of melanoma Home Medications ?Medication ?Instructions ?Recorded ?Last Taken ?Type famotidine 40 mg tablet 40 mg PO BID 05/28/17 History dorzolamide 22.3 mg-timolol 6.8 1 drp EACH EYE BID eye heal 12/22/21 Unknown History mg/mL eye drops latanoprost 0.005 % eye drops 1 drp EACH EYE DAILY eye health 12/22/21 Unknown History brimonidine 0.2 % eye drops 2 drp EACH EYE BID 3 06/14/24 History cholecalciferol (vitamin D3) 25 2,000 unit PO DAILY [facility] pplement 11/10/22 Unknown History mcg (1,000 unit) capsule cyanocobalamin (vitamin B-12) 2,000 mcg PO DAILY suppl ement 11/10/22 Unknown History 1,000 mcg tablet melatonin 5 mg tablet 5 mg PO HS PRN sleep 3 Unknown History Handicap placard #1 ea 04/12/23 Unknown Rx vitamins A,C,H-nrwp-sygnht 4,296 1 cap PO BID eye heal th 04/12/23 Unknown History mcg-226 mg-90 mg capsule cetirizine 10 mg tablet 10 mg PO Q12H ask pcp Unknown History doxepin 25 mg capsule 25 mg PO QHS itch 06/15/24 U nknown History lidocaine 5 % topical patch 1 patch topical Q24H rt ri b pain 06/15/24 Unknown History acetaminophen 500 mg tablet 1,000 mg (2 x 500 mg) PO Q 8 PRN 06/18/24 Unknown Rx Pain #0 tabs tramadol 50 mg tablet 50 mg PO Q6H PRN PRN pain #1 0 tabs 06/18/24 Unknown Rx apixaban 5 mg tablet (Eliquis) 5 mg PO BID #180 tabs 0 09/04/24 Unknown Rx atorvastatin 10 mg tablet 10 mg PO QHS cholesterol #90 tabs 09/04/24 Unknown Rx diltiazem HCl 120 mg 120 mg PO BID heart #180 cap s 09/04/24 Unknown Rx capsule,extended release 24 hr furosemide 40 mg tablet (Lasix) 40 mg PO DAILY #90 tab s 09/04/24 Unknown Rx losartan 25 mg tablet 25 mg PO DAILY #90 tabs 09/24 Unknown Rx potassium chloride 20 mEq 20 meq PO BID #180 tabs 09/24 Unknown Rx tablet,extended release gabapentin 300 mg capsule 300 mg PO DAILY 09/09/24 Unk nown History Allergy/AdvReac Type Severity Reaction Status Date / Time oxycodone (From Percocet) AdvReac Upset Verified 09/09/24 17:49 Stomach Family History Mother Anemia Hypertension Brother Hypertension Grandfather Cancer Surgical History Hx of colonoscopy History of bilateral cataract extraction History of hemorrhoidectomy History of repair of right rotator cuff History of laparoscopy History of appendectomy History of hysterectomy Social History household members: family housing: house Smoking Status: Former smoker Tobacco: How many years used: 25 how long ago did patient quit smokin alcohol intake: never substance use type: does not use what type of physical activity do you participate in: none ROS ROS ED Review of Systems ROS Unobtainable: due to mental status and other Details: Patient does not believe she needs to be here. She does not deny that she was in the street talking to someone that was not there. She answered no to every question asked with regards to review of systems. EXAM Physical Exam Const Vital Signs: 09/09/24 17:49 09/09/24 17:51 09/09/24 18:49 Temperature 98.4 F 98.4 F 98.3 F Temperature Source Oral Oral Oral Pulse Rate 71 71 88 Respiratory Rate 18 18 16 Blood Pressure 172/77 H 172/77 H 135/56 H Blood Pressure Mean 108 108 82 Pulse Ox 100 100 98 Oxygen Delivery Method Room Air Room Air Room Air Positive well nourished and well developed General Appearance ED: well developed and NAD HEENT Reports moist mucous membranes HEENT Narrative: Head is atraumatic normocephalic. Ears normal. Nares patent. Posterior pharynx normal. Uvula is midline. No deviation tongue protrusion. Eyes PERRL and EOMs intact bilaterally Eyes Narrative: There is no nystagmus. General Eye ED: Negative for pale conjunctiva or scleral icterus Neck no lymphadenopathy, supple and no JVD Chest Wall inspection of chest normal and palpation of chest normal Resp normal respiratory effort and clear to auscultation bilaterally Cardio regular rate, S1 normal heart sound and S2 normal heart sound; Negative for no murmurs Rhythm: abnormal rhythm irregularly irregular (There is a grade 1-2 systolic murmur heard essentially throughout the precordium.) GI normal to inspection, nondistended, normoactive bowel sounds, non-tender, non-distended and no masses; Negative for hepatosplenomegaly Back/Spine no CVA tenderness Extremity normal to inspection Neuro oriented x3, CN's II-XII intact bilaterally and no sensory deficits noted Sensorium / Orientation: alert Motor Exam: strength 5/5 throughout Psych mental status grossly normal Skin no rashes or lesions noted, no wounds and skin turgor normal MDM MDM MDM Narrative Medical decision making narrative: Light of the fact the patient had a geriatric eval and was told she could not drive and did poorly on her mental status exam suspect that this is related to dementia. Since this is worse than normal we will obtain appropriate blood workand UA to assess for metabolic infectious cause. Since there is no history of trauma and she denies headache and has a nonfocal neurologic exam at this point a CT of the head was not obtained nor do I believe it to be indicated. Lab Data Attestation: I reviewed the patient's lab results. Lab results narrative: CBC is unremarkable. Basic metabolic panel is unremarkable. Estimated creatinine clearance is 30.8. UA is negative. Labs: Laboratory Results - last 24 hr 09/09/24 09/09/24 18:10 18:16 WBC 6.6 RBC 4.90 Hgb 14.5 Hct 44.4 MCV 90.6 MCH 29.6 MCHC 32.7 RDW Std Deviation 48.6 H RDW Coeff of Arben 14.5 Plt Count 278 MPV 9.4 Immature Gran % (Auto) 0.300 Neut % (Auto) 55.8 Lymph % (Auto) 27.5 [place] % (Auto) 9.4 Eos % (Auto) 5.3 H Baso % (Auto) 1.7 H Absolute Neuts (auto) 3.7 Absolute Lymphs (auto) 1.82 Nucleated RBC % 0 Sodium 138 Potassium 3.7 Chloride 100 Carbon Dioxide 24.7 Anion Gap 13 BUN 14 Creatinine 1.15 Estim Creat Clear Calc 30.88 L Est GFR (MDRD) Non-Af 47 L BUN/Creatinine Ratio 12.2 Glucose 102 H Calcium 9.2 Total Bilirubin 0.62 AST 23 ALT 13 Alkaline Phosphatase 158 H Total Protein 7.4 Albumin 4.2 Globulin 3.2 Albumin/Globulin Ratio 1.3 Urine Color Straw Urine Clarity Clear Urine pH 7.0 Ur Specific [place] 1.005 Urine Protein Negative Urine Glucose (UA) Normal Urine Ketones Negative Urine Occult Blood Negative Urine Nitrite Negative Urine Bilirubin Negative Urine Urobilinogen Normal Ur Leukocyte Esterase 25 H Urine RBC 0 SEEN Urine WBC 0 SEEN Ur Squamous Epith Cells 0-5 SEEN Urine Bacteria 0 SEEN Urine Mucus 0 SEEN Treatment and Re-Evaluation :: In light of a negative workup with a nonfocal neurologic exam and a diagnosis inmy opinion of dementia patient be discharged to home with referral to Dr. Lucas per family's request for a local timber surveyor. Discharge Plan Triage Chief Complaint: Confusion ED Provider: Romaine Rivero Dx/Rx/DC Orders Clinical Impression: Acute on chronic alteration in mental status, Atrial fibrillation, Anticoagulant long-term use, Acute renal insufficiency Instructions: Cognitive Impairment Mild, ED DEMENTIA Alzheimer's, ED Confusion Prescriptions: No Action melatonin 5 mg tablet 5 mg PO HS PRN (Reason: sleep) (DME) Handicap placard See Rx Instructions .Route .MEDSUPPLY Qty: 1 0RF Rx Instructions: Lifetime atorvastatin 10 mg tablet 10 mg PO QHS Qty: 90 3RF Eliquis 5 mg tablet 5 mg PO BID Qty: 180 3RF diltiazem HCl 120 mg capsule,extended release 24hr 120 mg PO BID Qty: 180 3RF losartan 25 mg tablet 25 mg PO DAILY Qty: 90 3RF furosemide [Lasix] 40 mg tablet 40 mg PO DAILY Qty: 90 3RF potassium chloride 20 mEq tablet extended release 20 meq PO BID Qty: 180 3RF famotidine 40 MG tablet 40 mg PO BID cholecalciferol (vitamin D3) 25 mcg (1,000 unit) capsule 2,000 unit PO DAILY cyanocobalamin (vitamin B-12) 1,000 mcg tablet 2,000 mcg PO DAILY vitamins A,C,D-hyjm-ewhxti 4,296 mcg-226 mg-90 mg capsule 1 cap PO BID latanoprost 0.005 % Drops 1 drp EACH EYE DAILY dorzolamide-timolol 22.3-6.8 mg/mL Drops 1 drp EACH EYE BID brimonidine 0.2 % drops 2 drp EACH EYE BID Patient Comments: INSTILL 1 DROP INTO BOTH EYES TWICE A DAY cetirizine 10 mg tablet 10 mg PO Q12H Patient Comments: PLEASE SEE ATTACHED FOR DETAILED DIRECTIONS doxepin 25 mg capsule 25 mg PO QHS lidocaine 5 % adhesive patch,medicated 1 patch topical Q24H tramadol 50 mg Tablet 50 mg PO Q6H PRN PRN (Reason: pain) Qty: 10 0RF acetaminophen 500 mg Tablet 1,000 mg PO Q8 PRN (Reason: Pain) Qty: 0 0RF gabapentin 300 mg capsule 300 mg PO DAILY Primary Care Provider: Bjorn Soares Referrals: Bjorn Soares MD [Primary Care Provider] - Scott Lucas Chi, MD [Med Staff - Active Staff] - 1-2 Weeks Activity Restrictions/Additional Instructions: Call Dr. Lucas's office for outpatient follow-up and workup for dementia Print Language: Omani Disposition Disposition: Home, Self Care What to do if you have Problems For any increased pain, shortness of breath, bleeding, nausea or vomiting, chestpain, or any unexpected problems, contact your Primary Care Provider. Call [facility] ([phone]) or report to the closest Emergency Room. Call 911 if necessary. 09/09/24 [id number] <Electronically signed by Romaine Rivero MD> Cosigner Signature (if applicable): CC: Dr. Bjorn Soares MD ~ Signed [facility] Work Phone: [phone] 291-278604-23-2025 NoteHNO ID: [id number] Author: BRIELLE JERRY MA Service: ? Author Type: Picture Enlarger Type: Progress Notes Filed: 08/23/2024 15:35 Note Text: POPULATION HEALTH NAVIGATION OUTREACH Action/FYI LVM MYCHART MESSAGE SENT Topic Due (Y or N) Comments Medicare Wellness y PCP Follow up Colorectal Cancer Screening Controlling Blood Pressure A1C HCC y Flu Vaccine Care Everywhere Reviewed MyChart Activation Updated Appointment Note Reason for Outreach Care Gap/HCC or Scheduling Wellness Visits Care Gaps due: Medicare Annual Wellness Visit Patient Contacted: Unable or unnecessary to reach patient: Unable to leave message MyChart message sent HCC related Navigation Signature: Brielle Jerry MA August 23, 2024 8:30 [facility]04-23-2025 NotePatient Outreach (NETNAV) JIL DÍAZ ([id number]) 1940 F Date Time Provider Department 08/23/24 BRIELLE JERRY During your visit today, we recorded the following information about you: Brielle Jerry MA 08/23/2024 3:35 PM Signed POPULATION HEALTH NAVIGATION OUTREACH Action/FYI LVM MYCHART MESSAGE SENT Topic Due (Y or N) Comments Medicare Wellness y PCP Follow up Colorectal Cancer Screening Controlling Blood Pressure A1C HCC y Flu Vaccine Care Everywhere Reviewed MyChart Activation Updated Appointment Note Reason for Outreach Care Gap/HCC or Scheduling Wellness Visits Care Gaps due: Medicare Annual Wellness Visit Patient Contacted: Unable or unnecessary to reach patient: Unable to leave message [employer] message sent HCC related Navigation Signature: Brielle Jerry MA August 23, 2024 8:30 AM Allergies As of Date: 08/23/2024 Noted Allergy Reaction OXYCODONE 03/11/2017 9 - Itching Date Reviewed: 06/27/2024 Reviewed by: Beatriz Isaac LPN - Fully Assessed Reason for Visit: Population Health Navigation Outreach [3910] Cmt: [facility] Prescriptions as of 08/23/2024 - atorvastatin (LIPITOR) 20 mg tablet Take 1 tablet by mouth once daily. - famotidine (PEPCID) 40 mg tablet Take 1 tablet by mouth two times a day. - apixaban (ELIQUIS) 5 mg tab(s) Take 5 mg by mouth two times a day. - potassium chloride 20 mEq TbER Take 20 mEq by mouth once daily. - furosemide (LASIX) 40 mg tablet Take 40 mg by mouth once daily. - dilTIAZem CD (CARDIZEM CD, CARTIA XT) 120 mg 24 hr capsule Take 1 capsule by mouth once daily. - losartan (COZAAR) 50 mg tablet Take 1 tablet by mouth once daily. - dorzolamide-timolol (COSOPT) 22.3-6.8 mg/mL ophthalmic solution Use 1 Drop in both eyes twice daily. - brimonidine (ALPHAGAN) 0.2 % ophthalmic solution - gabapentin (NEURONTIN) 300 mg capsule Take 1 tablet morning and bedtime May take one tablet in afternoon as needed for pain Per Dr. Martinez - lidocaine (LIDODERM) 5 % Apply 1 Patch as directed every 12 hours. - latanoprost (XALATAN) 0.005 % ophthalmic solution Use 1 Drop in both eyes once daily. - vit C,E-Nb-lhrin-lutein-zeaxan (PRESERVISION AREDS-2) 250-90-40-1 mg Take 1 tablet by mouth twice daily at 6AM and 9PM. - BIOTIN ORAL Take 5,000 mg by mouth once daily. - Cholecalciferol, Vitamin D3, 25 mcg (1,000 unit) cap Take 1,000 Units by mouth once daily. - CYANOCOBALAMIN, VITAMIN B-12, (VITAMIN B-12 ORAL) Take 1,000 mg by mouth once daily. Problem List As Of Date 08/23/2024 Noted Resolved Chronic urticaria [L50.8] 05/13/2016 Hypertension [I10] Insomnia [G47.00] Post herpetic neuralgia [B02.29] Heart murmur [R01.1] GERD (gastroesophageal reflux disease) [K21.9] Hyperlipidemia [E78.5] Melanoma (HCC) [C43.9] 09/07/2022 VILLEGAS (dyspnea on exertion) [R06.09] 11/20/2017 Bilateral carotid artery disease (HCC) [I77.9] 11/20/2017 Mitral regurgitation [I34.0] Fall [W19.XXXA] 12/19/2018 Aortic stenosis [I35.0] OAB (overactive bladder) [N32.81] 04/09/2021 Mixed urge and stress incontinence [N39.46] 04/09/2021 Pulmonary arterial hypertension (HCC) [I27.21] 09/07/2022 Chronic kidney disease, stage 3a (HCC) [N18.31] 09/13/2023 Atrial fibrillation (HCC) [I48.91] 04/21/2023 Glaucoma [H40.9] 09/15/2023 Gait disturbance [R26.9] 05/04/2024 Encounter Status:Closed by BRIELLE JERRY on 08/23/24[facility]04-01-2025 Discharge summary [facility] Medical Records Department [address] [place] [id number] Emergency Department Summary 08/01/24 MR#: [id number] Acct: [id number] Name: JIL DÍAZ Rep #:[id number] : 1940 84 From: Daniel Dodge MD PCP: Dr. Bjorn Soares MD Status :REG ER Location: ED HPI HPI - Fall History of Present Illness Chief Complaint: Fall Informant: patient and EMS Narrative Narrative: 84-year-old female is feeling fine today, she went to trim her toenails by putting her foot up on the armrest of a small chair in her living room, she states after she cut the first nail her foot slipped causing her to fall. She fell to her tailbone against a hardwood floor, and also hit the top ofher head on the hardwood floor. No loss of consciousness, no headache, nausea, vomiting. She takes Eliquis for A-fib. She denies any other injury. She has been ambulatory before and after EMS transport here to the ER. Denies any bleeding or lacerations. [facility] Medical History Atrial fibrillation Acute left lumbar radiculopathy Atrial fibrillation Dyspnea on exertion Wears glasses Cancer Ambulates with cane Bladder disease History of renal disease High cholesterol Easy bruising Migraine headache Injury of head and neck Former smoker Leg cramps History of edema History of stress test History of echocardiogram Cardiology follow-up encounter Shortness of breath on exertion LLQ abdominal pain CKD (chronic kidney disease) stage 3, GFR 30-59 ml/min Heart murmur Concussion Chronic urticaria Basal cell carcinoma Aortic stenosis Nonrheumatic mitral (valve) insufficiency Nonrheumatic aortic (valve) insufficiency Secondary pulmonary arterial hypertension Hyperlipidemia Seasonal allergies Anemia Glaucoma GERD (gastroesophageal reflux disease) Essential (primary) hypertension Premature atrial contractions History of shingles History of basal cell cancer History of rectocele History of melanoma Home Medications ?Medication ?Instructions ?Recorded ?Last Taken ?Type famotidine 40 mg tablet 40 mg PO BID 05/28/17 History atorvastatin 10 mg tablet 10 mg PO QHS cholesterol 08/2006/14/24 History dorzolamide 22.3 mg-timolol 6.8 1 drp EACH EYE BID eye heal 12/22/21 Unknown History mg/mL eye drops latanoprost 0.005 % eye drops 1 drp EACH EYE DAILY eye health 12/22/21 Unknown History brimonidine 0.2 % eye drops 2 drp EACH EYE BID 3 06/14/24 History cholecalciferol (vitamin D3) 25 2,000 unit PO DAILY [facility] pplement 11/10/22 Unknown History mcg (1,000 unit) capsule cyanocobalamin (vitamin B-12) 2,000 mcg PO DAILY suppl ement 11/10/22 Unknown History 1,000 mcg tablet melatonin 5 mg tablet 5 mg PO HS PRN sleep 3 Unknown History Handicap placard #1 ea 04/12/23 Unknown Rx vitamins A,C,T-pwzt-zmckkh 4,296 1 cap PO BID eye heal th 04/12/23 Unknown History mcg-226 mg-90 mg capsule potassium chloride 20 mEq 20 meq PO BID #90 tabs 06/0106/14/24 Rx tablet,extended release diltiazem HCl 120 mg 120 mg PO BID heart #90 caps 06/23/23 06/14/24 Rx capsule,extended release 24 hr losartan 25 mg tablet 25 mg PO DAILY #90 tabs 06/0406/14/24 Rx furosemide 40 mg tablet (Lasix) 40 mg PO DAILY #90 tab s 04/10/24 06/14/24 Rx apixaban 5 mg tablet (Eliquis) 5 mg PO BID #60 tabs 06/14/24 Rx cetirizine 10 mg tablet 10 mg PO Q12H ask pcp Unknown History doxepin 25 mg capsule 25 mg PO QHS itch 06/15/24 U nknown History lidocaine 5 % topical patch 1 patch topical Q24H rt ri b pain 06/15/24 Unknown History acetaminophen 500 mg tablet 1,000 mg (2 x 500 mg) PO Q 8 PRN 06/18/24 Unknown Rx Pain #0 tabs amoxicillin 875 mg-potassium 1 tab PO Q12H #6 tabs Unknown Rx clavulanate 125 mg tablet dexamethasone 4 mg tablet 6 mg (1.5 x 4 mg) PO DAILY # 6 tabs 06/18/24 Unknown Rx guaifenesin 1,200 mg tablet, 1,200 mg PO BID #10 tabs 06/18/24 Unknown Rx extended release 12 hr (Mucus Relief ER) tramadol 50 mg tablet 50 mg PO Q6H PRN PRN pain #1 0 tabs 06/18/24 Unknown Rx Allergy/AdvReac Type Severity Reaction Status Date / Time oxycodone (From Percocet) AdvReac Upset Verified 06/15/24 10:35 Stomach Family History Mother Anemia Hypertension Brother Hypertension Grandfather Cancer Surgical History Hx of colonoscopy History of bilateral cataract extraction History of hemorrhoidectomy History of repair of right rotator cuff History of laparoscopy History of appendectomy History of hysterectomy Social History household members: family housing: house Smoking Status: Former smoker Tobacco: How many years used: 25 how long ago did patient quit smokin alcohol intake: never substance use type: does not use what type of physical activity do you participate in: none ROS ROS ED Constitutional Constitutional ED: Denies chills or fever(s) Eyes Eyes: Denies change in vision or diplopia ENT ENT ED: Denies ear pain, epistaxis, facial pain or rhinorrhea Cardiovascular Cardiovascular: Denies chest pain or palpitations Respiratory/Chest Respiratory/Chest: Denies cough or dyspnea Gastrointestinal Gastrointestinal: Denies abdominal pain, diarrhea, melena, nausea or vomiting Genitourinary Genitourinary ED: Denies dysuria or hematuria Musculoskeletal Musculoskeletal: Reports back pain; Denies extremity pain or neck pain Integumentary Denies abscess, Abrasions, laceration or rash Neurologic Neurologic: Denies confusion, headache(s), paresthesias or weakness EXAM Physical Exam Const Vital Signs: 08/01/24 12:09 08/01/24 12:22 08/01/24 14:08 Temperature 97.5 F L Temperature Source Oral Pulse Rate 79 65 Respiratory Rate 18 18 Respiratory Effort Normal Respiratory Depth Normal Respiratory Pattern Normal Blood Pressure 162/84 H Blood Pressure Mean 110 Pulse Ox 94 97 96 Oxygen Delivery Method Room Air Room Air Room Air Positive well nourished and well developed General Appearance ED: well developed and NAD HEENT Reports TM's clear and nasal mucous membranes and turbinates normal HEENT Narrative: Mild tenderness at the left side of the top of the head, there is no crepitance,hematoma, depression, laceration. There is a little bit of hyperemia where she had. No Esparza sign, no raccoon eyes, noCSF otorhinorrhea, no hemotympanum. Face and Sinus: Negative for facial tenderness Tympanic Membrane ED: Yes TM's clear Eyes PERRL and EOMs intact bilaterally Visual Acuity: other Other Details: no entrapment or pain with extraocular movements Neck full ROM and supple General: Negative for tenderness Chest Wall inspection of chest normal and palpation of chest normal Chest: symmetrical chest wall rise; Negative for crepitus or tenderness Resp normal respiratory effort and clear to auscultation bilaterally Percussion: other equal BS bilat Cardio no murmurs Rate: regular rate Rhythm: regular rhythm GI normal to inspection, nondistended, normoactive bowel sounds, soft to palpation and non-tender Back/Spine normal ROM Back/Spine Narrative: Tender to coccyx as well as the right SI joint area, there is no other midline spinal tenderness. Able to sit up without difficulty. Cervical Spine: Negative for cervical spine tenderness Thoracic Spine / Upper Back: Negative for thoracic spinal tenderness Lumbar Spine / Lower Back: Negative for lumbar spinal tenderness Extremity normal to inspection and full ROM Extremity Narrative: Atraumatic extremities full range of motion throughout all 4, including both hips without groin pain. General Extremety ED: Negative for tenderness Neuro oriented x3, CN's II-XII intact bilaterally, moves all extremities, no focal motor deficits and no sensory deficits noted [place] Coma Scale: document GCS findings Spontaneous Obeys Commands Oriented 15 Sensorium / Orientation: awake and alert Psych mental status grossly normal and thought process normal Skin no wounds Lesions: no lesions Rashes: no rashes MDM MDM MDM Narrative Medical decision making narrative: CT of the head was obtained in order to rule out intracranial injury, I reviewedthe images and report which I agree with, negative for anything acute. Additionally, obtained 1 view x-ray series of the pelvis and 2 view x-ray seriesof the sacrum/coccyx. I see no acute fractures on either of these aswell. Radiology in agreement. Patient ambulatory. She was given some Tylenol, her tailbone is hurting her more than anything, she has an inflatable donut at home to sit on and I advised her to use ice and Tylenol as needed. She stable for discharge home. Radiography Diagnostic Testing: Clinical Impression(s) from Imaging Studies Pelvis X-Ray 08/01/24 12:27 IMPRESSION: NO EVIDENCE OF PELVIC FRACTURE Reading Location: [id number] Sacrum and Coccyx X-Ray 08/01/24 12:27 IMPRESSION: No acute abnormality is seen. Reading Location: [id number] Brain CT 08/01/24 12:28 IMPRESSION: 1. Generalized brain atrophy. 2. Small vessel ischemic/degenerative changes. 3. No acute intracranial hemorrhage, midline shift or mass effect. If symptoms persist, further evaluation with MRI is recommended. Reading Location: [facility] Discharge Plan Triage Chief Complaint: Fall ED Provider: Daniel Dodge Dx/Rx/DC Orders Clinical Impression: Closed head injury without concussion, Coccyx contusion, Contusion of lower back, Fall from slip, trip, or stumble Instructions: ED Coccyx or Sacrum Contusion Prescriptions: No Action melatonin 5 mg tablet 5 mg PO HS PRN (Reason: sleep) (DME) Handicap placard See Rx Instructions .Route .MEDSUPPLY Qty: 1 0RF Rx Instructions: Lifetime potassium chloride 20 mEq tablet extended release 20 meq PO BID Qty: 90 3RF famotidine 40 MG tablet 40 mg PO BID atorvastatin 10 mg tablet 10 mg PO QHS cholecalciferol (vitamin D3) 25 mcg (1,000 unit) capsule 2,000 unit PO DAILY cyanocobalamin (vitamin B-12) 1,000 mcg tablet 2,000 mcg PO DAILY vitamins A,C,U-cogw-majwju 4,296 mcg-226 mg-90 mg capsule 1 cap PO BID latanoprost 0.005 % Drops 1 drp EACH EYE DAILY dorzolamide-timolol 22.3-6.8 mg/mL Drops 1 drp EACH EYE BID brimonidine 0.2 % drops 2 drp EACH EYE BID Patient Comments: INSTILL 1 DROP INTO BOTH EYES TWICE A DAY cetirizine 10 mg tablet 10 mg PO Q12H Patient Comments: PLEASE SEE ATTACHED FOR DETAILED DIRECTIONS doxepin 25 mg capsule 25 mg PO QHS lidocaine 5 % adhesive patch,medicated 1 patch topical Q24H tramadol 50 mg Tablet 50 mg PO Q6H PRN PRN (Reason: pain) Qty: 10 0RF acetaminophen 500 mg Tablet 1,000 mg PO Q8 PRN (Reason: Pain) Qty: 0 0RF dexamethasone 4 mg Tablet 6 mg PO DAILY Qty: 6 0RF guaifenesin [Mucus Relief ER] 1,200 mg Tablet Extended Release 12hr 1,200 mg PO BID Qty: 10 0RF amoxicillin-pot clavulanate 875-125 mg tablet 1 tab PO Q12H Qty: 6 0RF diltiazem HCl 120 mg capsule,extended release 24hr 120 mg PO BID Qty: 90 3RF losartan 25 mg tablet 25 mg PO DAILY Qty: 90 3RF furosemide [Lasix] 40 mg tablet 40 mg PO DAILY Qty: 90 0RF Eliquis 5 mg tablet 5 mg PO BID Qty: 60 11RF Primary Care Provider: Bjorn Soares Referrals: Bjorn Soares MD [Primary Care Provider] - 10-14 Days if not better Print Language: Omani Disposition Disposition: Home, Self Care What to do if you have Problems For any increased pain, shortness of breath, bleeding, nausea or vomiting, chestpain, or any unexpected problems, contact your Primary Care Provider. Call [facility] ([phone]) or report tothe closest Emergency Room. Call 911 if necessary. 08/01/24 1414 Cosigner Signature (if applicable): CC: Dr. Bjorn Soares MD ~ Signed [facility]04-01-2025 Discharge summary Author Daniel Dodge [facility] Note Date/Time August 01, 2024 2:14 pm [facility] Medical Records Department [address] [place] [address] Emergency Department Summary 08/01/24 MR#: [id number] Acct: [id number] Name: JIL DÍAZ Rep #:[id number] : 1940 84 From: Daniel Dodge MD PCP: Dr. Bjorn Soares MD Status :REG ER Location: ED HPI HPI - Fall History of Present Illness Chief Complaint: Fall Informant: patient and EMS Narrative Narrative: 84-year-old female is feeling fine today, she went to trim her toenails by putting her foot up on the armrest of a small chair in her living room, she states after she cut the first nail her foot slipped causing her to fall. She fell to her tailbone against a hardwood floor, and also hit the top of her head on the hardwood floor. No loss of consciousness, no headache, nausea, vomiting. She takes Eliquis for A- fib. She denies any other injury. She has been ambulatory before and after EMS transport here to the ER. Denies any bleeding or lacerations. [facility] Medical History Atrial fibrillation Acute left lumbar radiculopathy Atrial fibrillation Dyspnea on exertion Wears glasses Cancer Ambulates with cane Bladder disease History of renal disease High cholesterol Easy bruising Migraine headache Injury of head and neck Former smoker Leg cramps History of edema History of stress test History of echocardiogram Cardiology follow-up encounter Shortness of breath on exertion LLQ abdominal pain CKD (chronic kidney disease) stage 3, GFR 30-59 ml/min Heart murmur Concussion Chronic urticaria Basal cell carcinoma Aortic stenosis Nonrheumatic mitral (valve) insufficiency Nonrheumatic aortic (valve) insufficiency Secondary pulmonary arterial hypertension Hyperlipidemia Seasonal allergies Anemia Glaucoma GERD (gastroesophageal reflux disease) Essential (primary) hypertension Premature atrial contractions History of shingles History of basal cell cancer History of rectocele History of melanoma Home Medications ?Medication ?Instructions ?Recorded ?Last Taken ?Type famotidine 40 mg tablet 40 mg PO BID 05/28/17 History atorvastatin 10 mg tablet 10 mg PO QHS cholesterol 08/2006/14/24 History dorzolamide 22.3 mg-timolol 6.8 1 drp EACH EYE BID eye heal 12/22/21 Unknown History mg/mL eye drops latanoprost 0.005 % eye drops 1 drp EACH EYE DAILY eye health 12/22/21 Unknown History brimonidine 0.2 % eye drops 2 drp EACH EYE BID 3 06/14/24 History cholecalciferol (vitamin D3) 25 2,000 unit PO DAILY [place] pplement 11/10/22 Unknown History mcg (1,000 unit) capsule cyanocobalamin (vitamin B-12) 2,000 mcg PO DAILY suppl ement 11/10/22 Unknown History 1,000 mcg tablet melatonin 5 mg tablet 5 mg PO HS PRN sleep 3 Unknown History Handicap placard #1 ea 04/12/23 Unknown Rx vitamins A,C,G-yuip-kacnot 4,296 1 cap PO BID eye heal th 04/12/23 Unknown History mcg-226 mg-90 mg capsule potassium chloride 20 mEq 20 meq PO BID #90 tabs 06/0106/14/24 Rx tablet,extended release diltiazem HCl 120 mg 120 mg PO BID heart #90 caps 06/23/23 06/14/24 Rx capsule,extended release 24 hr losartan 25 mg tablet 25 mg PO DAILY #90 tabs 06/0406/14/24 Rx furosemide 40 mg tablet (Lasix) 40 mg PO DAILY #90 tab s 04/10/24 06/14/24 Rx apixaban 5 mg tablet (Eliquis) 5 mg PO BID #60 tabs 06/14/24 Rx cetirizine 10 mg tablet 10 mg PO Q12H ask pcp Unknown History doxepin 25 mg capsule 25 mg PO QHS itch 06/15/24 U nknown History lidocaine 5 % topical patch 1 patch topical Q24H rt ri b pain 06/15/24 Unknown History acetaminophen 500 mg tablet 1,000 mg (2 x 500 mg) PO Q 8 PRN 06/18/24 Unknown Rx Pain #0 tabs amoxicillin 875 mg-potassium 1 tab PO Q12H #6 tabs Unknown Rx clavulanate 125 mg tablet dexamethasone 4 mg tablet 6 mg (1.5 x 4 mg) PO DAILY # 6 tabs 06/18/24 Unknown Rx guaifenesin 1,200 mg tablet, 1,200 mg PO BID #10 tabs 06/18/24 Unknown Rx extended release 12 hr (Mucus Relief ER) tramadol 50 mg tablet 50 mg PO Q6H PRN PRN pain #1 0 tabs 06/18/24 Unknown Rx Allergy/AdvReac Type Severity Reaction Status Date / Time oxycodone (From Percocet) AdvReac Upset Verified 06/15/24 10:35 Stomach Family History Mother Anemia Hypertension Brother Hypertension Grandfather Cancer Surgical History Hx of colonoscopy History of bilateral cataract extraction History of hemorrhoidectomy History of repair of right rotator cuff History of laparoscopy History of appendectomy History of hysterectomy Social History household members: family housing: house Smoking Status: Former smoker Tobacco: How many years used: 25 how long ago did patient quit smokin alcohol intake: never substance use type: does not use what type of physical activity do you participate in: none ROS ROS ED Constitutional Constitutional ED: Denies chills or fever(s) Eyes Eyes: Denies change in vision or diplopia ENT ENT ED: Denies ear pain, epistaxis, facial pain or rhinorrhea Cardiovascular Cardiovascular: Denies chest pain or palpitations Respiratory/Chest Respiratory/Chest: Denies cough or dyspnea Gastrointestinal Gastrointestinal: Denies abdominal pain, diarrhea, melena, nausea or vomiting Genitourinary Genitourinary ED: Denies dysuria or hematuria Musculoskeletal Musculoskeletal: Reports back pain; Denies extremity pain or neck pain Integumentary Denies abscess, Abrasions, laceration or rash Neurologic Neurologic: Denies confusion, headache(s), paresthesias or weakness EXAM Physical Exam Const Vital Signs: 08/01/24 12:09 08/01/24 12:22 08/01/24 14:08 Temperature 97.5 F L Temperature Source Oral Pulse Rate 79 65 Respiratory Rate 18 18 Respiratory Effort Normal Respiratory Depth Normal Respiratory Pattern Normal Blood Pressure 162/84 H Blood Pressure Mean 110 Pulse Ox 94 97 96 Oxygen Delivery Method Room Air Room Air Room Air Positive well nourished and well developed General Appearance ED: well developed and NAD HEENT Reports TM's clear and nasal mucous membranes and turbinates normal HEENT Narrative: Mild tenderness at the left side of the top of the head, there is no crepitance,hematoma, depression, laceration. There is a little bit of hyperemia where she had. No Esparza sign, no raccoon eyes, no CSF otorhinorrhea, no hemotympanum. Face and Sinus: Negative for facial tenderness Tympanic Membrane ED: Yes TM's clear Eyes PERRL and EOMs intact bilaterally Visual Acuity: other Other Details: no entrapment or pain with extraocular movements Neck full ROM and supple General: Negative for tenderness Chest Wall inspection of chest normal and palpation of chest normal Chest: symmetrical chest wall rise; Negative for crepitus or tenderness Resp normal respiratory effort and clear to auscultation bilaterally Percussion: other equal BS bilat Cardio no murmurs Rate: regular rate Rhythm: regular rhythm GI normal to inspection, nondistended, normoactive bowel sounds, soft to palpation and non-tender Back/Spine normal ROM Back/Spine Narrative: Tender to coccyx as well as the right SI joint area, there is no other midline spinal tenderness. Able to sit up without difficulty. Cervical Spine: Negative for cervical spine tenderness Thoracic Spine / Upper Back: Negative for thoracic spinal tenderness Lumbar Spine / Lower Back: Negative for lumbar spinal tenderness Extremity normal to inspection and full ROM Extremity Narrative: Atraumatic extremities full range of motion throughout all 4, including both hips without groin pain. General Extremety ED: Negative for tenderness Neuro oriented x3, CN's II-XII intact bilaterally, moves all extremities, no focal motor deficits and no sensory deficits noted [place] Coma Scale: document GCS findings Spontaneous Obeys Commands Oriented 15 Sensorium / Orientation: awake and alert Psych mental status grossly normal and thought process normal Skin no wounds Lesions: no lesions Rashes: no rashes MDM MDM MDM Narrative Medical decision making narrative: CT of the head was obtained in order to rule out intracranial injury, I reviewedthe images and report which I agree with, negative for anything acute. Additionally, obtained 1 view x-ray series of the pelvis and 2 view x-ray seriesof the sacrum/coccyx. I see no acute fractures on either of these as well. Radiology in agreement. Patient ambulatory. She was given some Tylenol, her tailbone is hurting her more than anything, she has an inflatable donut at home to sit on and I advised her to use ice and Tylenol as needed. She stable for discharge home. Radiography Diagnostic Testing: Clinical Impression(s) from Imaging Studies Pelvis X-Ray 08/01/24 12:27 IMPRESSION: NO EVIDENCE OF PELVIC FRACTURE Reading Location: [id number] Sacrum and Coccyx X-Ray 08/01/24 12:27 IMPRESSION: No acute abnormality is seen. Reading Location: [id number] Brain CT 08/01/24 12:28 IMPRESSION: 1. Generalized brain atrophy. 2. Small vessel ischemic/degenerative changes. 3. No acute intracranial hemorrhage, midline shift or mass effect. If symptoms persist, further evaluation with MRI is recommended. Reading Location: [facility] Discharge Plan Triage Chief Complaint: Fall ED Provider: Daniel Dodge Dx/Rx/DC Orders Clinical Impression: Closed head injury without concussion, Coccyx contusion, Contusion of lower back, Fall from slip, trip, or stumble Instructions: ED Coccyx or Sacrum Contusion Prescriptions: No Action melatonin 5 mg tablet 5 mg PO HS PRN (Reason: sleep) (DME) Handicap placard See Rx Instructions .Route .MEDSUPPLY Qty: 1 0RF Rx Instructions: Lifetime potassium chloride 20 mEq tablet extended release 20 meq PO BID Qty: 90 3RF famotidine 40 MG tablet 40 mg PO BID atorvastatin 10 mg tablet 10 mg PO QHS cholecalciferol (vitamin D3) 25 mcg (1,000 unit) capsule 2,000 unit PO DAILY cyanocobalamin (vitamin B-12) 1,000 mcg tablet 2,000 mcg PO DAILY vitamins A,C,S-eykt-cmhldk 4,296 mcg-226 mg-90 mg capsule 1 cap PO BID latanoprost 0.005 % Drops 1 drp EACH EYE DAILY dorzolamide-timolol 22.3-6.8 mg/mL Drops 1 drp EACH EYE BID brimonidine 0.2 % drops 2 drp EACH EYE BID Patient Comments: INSTILL 1 DROP INTO BOTH EYES TWICE A DAY cetirizine 10 mg tablet 10 mg PO Q12H Patient Comments: PLEASE SEE ATTACHED FOR DETAILED DIRECTIONS doxepin 25 mg capsule 25 mg PO QHS lidocaine 5 % adhesive patch,medicated 1 patch topical Q24H tramadol 50 mg Tablet 50 mg PO Q6H PRN PRN (Reason: pain) Qty: 10 0RF acetaminophen 500 mg Tablet 1,000 mg PO Q8 PRN (Reason: Pain) Qty: 0 0RF dexamethasone 4 mg Tablet 6 mg PO DAILY Qty: 6 0RF guaifenesin [Mucus Relief ER] 1,200 mg Tablet Extended Release 12hr 1,200 mg PO BID Qty: 10 0RF amoxicillin-pot clavulanate 875-125 mg tablet 1 tab PO Q12H Qty: 6 0RF diltiazem HCl 120 mg capsule,extended release 24hr 120 mg PO BID Qty: 90 3RF losartan 25 mg tablet 25 mg PO DAILY Qty: 90 3RF furosemide [Lasix] 40 mg tablet 40 mg PO DAILY Qty: 90 0RF Eliquis 5 mg tablet 5 mg PO BID Qty: 60 11RF Primary Care Provider: Bjorn Soares Referrals: Bjorn Soares MD [Primary Care Provider] - 10-14 Days if not better Print Language: Omani Disposition Disposition: Home, Self Care What to do if you have Problems For any increased pain, shortness of breath, bleeding, nausea or vomiting, chestpain, or any unexpected problems, contact your Primary Care Provider. Call [facility] ([phone]) or report to the closest Emergency Room. Call 911 if necessary. 08/01/24 1414 <Electronically signed by Daniel Dodge MD> Cosigner Signature (if applicable): CC: Dr. Bjorn Soares MD ~ Signed [facility] Work Phone: 1(483) 317-713504-01-2025 Radiology Diagnostic study note [facility] Imaging Services [address] [place] [address] [id number] Brain/Head without Contrast MR#: [id number] Acct: [id number] Name: JIL DÍAZ Rep #: [id number] : 1940 F 84 From: Adamaris Interiano MD PCP: Dr. Bjorn Soares MD Status: REG ER Study:Brain/Head without Contrast Date of Exa m: 08/01/24 Exam# [id number] Ordering Dr: Bob Dodge MD EXAM: CT Head Without Intravenous Contrast CLINICAL INDICATION: FALL/INJURY TECHNIQUE: Axial computed tomography images of the head/brain without intravenous contrast. This CTexam was performed using one or more of the following dose reduction techniques: automated exposure control, adjustment of the mA and/or kV according to patient size, and/or use of iterative reconstruction technique. 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 The cerebral and cerebellar sulci are prominent consistent with brain atrophy. Areas of decreased attenuation in the deep cerebral white matter are consistent with small vessel ischemic/degenerative changes. Noacute intracranial hemorrhage, midline shift or mass effect. If symptoms persist, further evaluation with MRI is recommended. BONES/JOINTS: Unremarkable. No acute fracture. SOFT TISSUES: Unremarkable. SINUSES: Unremarkable as visualized. No acute sinusitis. MASTOID AIR CELLS: Unremarkable as visualized. No mastoid effusion. CT/Brain/Head without Contrast IMPRESSION: 1. Generalized brain atrophy. 2. Small vessel ischemic/degenerative changes. 3. No acute intracranial hemorrhage, midline shift or mass effect. If symptoms persist, further evaluation with MRI is recommended. Reading Location: [facility] CC: Dr. Daniel Dodge MD; Dr. Bjorn Soares MD ~ Motel Maid: Signed [facility]04-01-2025 Radiology Diagnostic study note [facility] Imaging Services [address] [place] [address] [id number] Sacrum-Coccyx min 2 Views MR#: [id number] Acct: [id number] Name: JIL DÍAZ Rep #: [id number] : 1940 F 84 From: Kulwinder Robertson MD PCP: Dr. Bjorn Soares MD Status: REG ER Study:Sacrum-Coccyx min 2 Views Date of Exam: 08/01/24 Exam# [id number] Ordering Dr: Bob Dodge MD PROCEDURE: SACRUM-COCCYX MIN 2 VIEWS 08/01/2024 REASON FOR EXAM: FALL/INJURY TECHNIQUE: AP and lateral view(s) of the sacrum and coccyx. COMPARISON: None FINDINGS: Bones: Unremarkable. Narrowing and sclerosis of the symphysis pubis. Joints: Degenerative changes of the lower lumbar vertebrae. Other: Large amount of fecal material is seen in the colon. RAD/Sacrum-Coccyx min 2 Views IMPRESSION: No acute abnormality is seen. Reading Location: [id number] CC: Dr. Daniel Dodge MD; Dr. Bjorn Soares MD ~ Motel Maid: Signed [facility]04-01-2025 Radiology Diagnostic study note [facility] Imaging Services [address] [place] [address] Pelvis 1 or 2 Views MR#: [id number] Acct: [id number] Name: JIL DÍAZ Rep #: [id number] : 1940 F 84 From: Kulwinder Robertson MD PCP: Dr. Bjorn Soares MD Status: REG ER Study:Pelvis 1 or 2 Views Date of Exam: 08/01/24 Exam# [id number] Ordering Dr: Bob Dodge MD PROCEDURE: PELVIS 1 OR 2 VIEWS 08/01/2024 REASON FOR EXAM: FALL/INJURY. Posterior right side pain following a fall. TECHNIQUE: 2 view(s) of the pelvis. COMPARISON: None FINDINGS: Hardware: No hardware is seen. Bones: Mild degree of bilateral hip osteoarthritis. Joints: No fracture is seen. soft tissues: Unremarkable Other: Degenerative changes of the lower lumbar spine. RAD/Pelvis 1 or 2 Views IMPRESSION: NO EVIDENCE OF PELVIC FRACTURE Reading Location: [id number] CC: Dr. Daniel Dodge MD; Dr. Bjorn Soares MD ~ Motel Maid: Signed [facility]04-01-2025 Telephone encounter Note* Telephone Encounter - Marguerite Valdes LPN - 08/01/2024 11:27 AM EDT FYI: Pt calls to report she was cutting her toenails earlier and she lost her balance and hit her head hard on the floor. Pt reports head still hurts. Pt is currently on Eliquis. Pt reports she does not have a way to the ER and asked if she should call the squad. Agreed with ptto call the squad. Pt reports she is able to call herself. Marguerite Valdes LPN [facility]04-01-2025 Miscellaneous Notes* Telephone Encounter - Marguerite Valdes LPN - 08/01/2024 11:27 AM EDT FYI: Pt calls to report she was cutting her toenails earlier and she lost her balance and hit her head hard on the floor. Pt reports head still hurts. Pt is currently on Eliquis. Pt reports she does not have a way to the ER and asked if she should call the squad. Agreed with ptto call the squad. Pt reports she is able to call herself. Marguerite Valdes LPN [facility] Telephone encounter Note * Telephone Encounter - Drea Christensen - 07/31/2024 8:44 AM EDT Patient has 1 pill left. Please expedite. Patient has been identified by name and date of : Yes, Patient phones for refill(s): Requested Prescriptions Pending Prescriptions Disp Refills atorvastatin (LIPITOR) 20 mg tablet 90 tablet 1 Sig: Take 1 tablet by mouth once daily. Date of last office visit in primary care: 06/27/2024 Date of next office visit in primary care: 08/22/2024 Please advise. Thank you. Drea Christensen. [facility]03-31-2025 Miscellaneous Notes* Telephone Encounter - Drea Christensen - 07/31/2024 8:44 AM EDT Patient has 1 pill left. Please expedite. Patient has been identified by name and date of : Yes, Patient phones for refill(s): Requested Prescriptions Pending Prescriptions Disp Refills atorvastatin (LIPITOR) 20 mg tablet 90 tablet 1 Sig: Take 1 tablet by mouth once daily. Date of last office visit in primary care: 06/27/2024 Date of next office visit in primary care: 08/22/2024 Please advise. Thank you. Drea Christensen. documented in this encounter[facility]03-[facility]-2025 NoteHNO ID: [id number] Author: REA SIMON MA Service: ? Author Type: Picture Enlarger Type: Progress Notes Filed: 07/21/2024 15:34 Note Text: POPULATION HEALTH NAVIGATION OUTREACH Action/FYI Pt is due for wellness visit Called pt left message ands sending mychart Reason for Outreach Care Gap/HCC or Scheduling Wellness Visits Care Gaps due: Medicare Annual Wellness Visit Patient Contacted: Unable or unnecessary to reach patient: Left message MyChart message sent Navigation Signature: Rea Simon MA July 21, 2024 3:34 [facility]03-21-2025 History of Present illness Narrative* Rea Simon MA - 07/21/2024 3:34 PM EDT POPULATION HEALTH NAVIGATION OUTREACH Action/FYI Pt is due for wellness visit Called pt left message ands sending mychart Reason for Outreach Care Gap/HCC or Scheduling Wellness Visits Care Gaps due: Medicare Annual Wellness Visit Patient Contacted: Unable or unnecessary to reach patient: Left message MyChart message sent Navigation Signature: Rea Simon MA July 21, 2024 3:34 PM documented in this encounterOhio[facility]-2025 NotePatient Outreach (NETNAV) JIL DÍAZ ([id number]) 1940 F Date Time Provider Department 07/21/24 REA SIMON During your visit today, we recorded the following information about you: Rea Simon MA 07/21/2024 3:34 PM Signed POPULATION HEALTH NAVIGATION OUTREACH Action/FYI Pt is due for wellness visit Called pt left message ands sending mychart Reason for Outreach Care Gap/HCC or Scheduling Wellness Visits Care Gaps due: Medicare Annual Wellness Visit Patient Contacted: Unable or unnecessary to reach patient: Left message [employer] message sent Navigation Signature: Rea ZambranoMARTHA fair July 21, 2024 3:34 PM Allergies As of Date: 07/21/2024 Noted Allergy Reaction OXYCODONE 03/11/2017 9 - Itching Date Reviewed: 06/27/2024 Reviewed by: Beatriz Isaac LPN - Fully Assessed Reason for Visit: Population Health Navigation Outreach [3910] Cmt: Aco high risk attempt # 2 Prescriptions as of 07/21/2024 - atorvastatin (LIPITOR) 20 mg tablet Take 1 tablet by mouth once daily. - famotidine (PEPCID) 40 mg tablet Take 1 tablet by mouth two times a day. - apixaban (ELIQUIS) 5 mg tab(s) Take 5 mg by mouth two times a day. - potassium chloride 20 mEq TbER Take 20 mEq by mouth once daily. - furosemide (LASIX) 40 mg tablet Take 40 mg by mouth once daily. - dilTIAZem CD (CARDIZEM CD, CARTIA XT) 120 mg 24 hr capsule Take 1 capsule by mouth once daily. - losartan (COZAAR) 50 mg tablet Take 1 tablet by mouth once daily. - dorzolamide-timolol (COSOPT) 22.3-6.8 mg/mL ophthalmic solution Use 1 Drop in both eyes twice daily. - brimonidine (ALPHAGAN) 0.2 % ophthalmic solution - gabapentin (NEURONTIN) 300 mg capsule Take 1 tablet morning and bedtime May take one tablet in afternoon as needed for pain Per Dr. Martinez - lidocaine (LIDODERM) 5 % Apply 1 Patch as directed every 12 hours. - latanoprost (XALATAN) 0.005 % ophthalmic solution Use 1 Drop in both eyes once daily. - vit C,Y-Pz-svwoe-lutein-zeaxan (PRESERVISION AREDS-2) 250-90-40-1 mg Take 1 tablet by mouth twice daily at 6AM and 9PM. - BIOTIN ORAL Take 5,000 mg by mouth once daily. - Cholecalciferol, Vitamin D3, 25 mcg (1,000 unit) cap Take 1,000 Units by mouth once daily. - CYANOCOBALAMIN, VITAMIN B-12, (VITAMIN B-12 ORAL) Take 1,000 mg by mouth once daily. Problem List As Of Date 07/21/2024 Noted Resolved Chronic urticaria [L50.8] 05/13/2016 Hypertension [I10] Insomnia [G47.00] Post herpetic neuralgia [B02.29] Heart murmur [R01.1] GERD (gastroesophageal reflux disease) [K21.9] Hyperlipidemia [E78.5] Melanoma (HCC) [C43.9] 09/07/2022 VILLEGAS (dyspnea on exertion) [R06.09] 11/20/2017 Bilateral carotid artery disease (HCC) [I77.9] 11/20/2017 Mitral regurgitation [I34.0] Fall [W19.XXXA] 12/19/2018 Aortic stenosis [I35.0] OAB (overactive bladder) [N32.81] 04/09/2021 Mixed urge and stress incontinence [N39.46] 04/09/2021 Pulmonary arterial hypertension (HCC) [I27.21] 09/07/2022 Chronic kidney disease, stage 3a (HCC) [N18.31] 09/13/2023 Atrial fibrillation (HCC) [I48.91] 04/21/2023 Glaucoma [H40.9] 09/15/2023 Gait disturbance [R26.9] 05/04/2024 Encounter Status:Closed by REA ALVAREZ on 07/21/24[facility]03-18[facility]25 NoteHNO ID: [id number] Author: REA SIMON MA Service: ? Author Type: Picture Enlarger Type: Progress Notes Filed: 07/18/2024 11:19 Note Text: POPULATION HEALTH NAVIGATION OUTREACH Action/FYI Pt is due for wellness visit Called pt left message and sending mychart Reason for Outreach Care Gap/HCC or Scheduling Wellness Visits Care Gaps due: Medicare Annual Wellness Visit Patient Contacted: Unable or unnecessary to reach patient: Left message MyChart message sent Navigation Signature: Rea Simon MA July 18, 2024 11:18 [facility]03-18-2025 History of Present illness Narrative* Rea Simon MA - 07/18/2024 11:18 AM EDT POPULATION HEALTH NAVIGATION OUTREACH Action/FYI Pt is due for wellness visit Called pt left message and sending mychart Reason for Outreach Care Gap/HCC or Scheduling Wellness Visits Care Gaps due: Medicare Annual Wellness Visit Patient Contacted: Unable or unnecessary to reach patient: Left message MyChart message sent Navigation Signature: Rea Simon MA July 18, 2024 11:18 AM documented in [facility] encounter[facility] NotePatient Outreach (NETNAV) JIL DÍAZ ([id number]) 1940 F Date Time Provider Department 07/18/24 REA SIMON NETNAV During your visit today, we recorded the following information about you: Rea Simon MA 07/18/2024 11:19 AM Signed POPULATION HEALTH NAVIGATION OUTREACH Action/FYI Pt is due for wellness visit Called pt left message and sending mychart Reason for Outreach Care Gap/HCC or Scheduling Wellness Visits Care Gaps due: Medicare Annual Wellness Visit Patient Contacted: Unable or unnecessary to reach patient: Left message MyChart message sent Navigation Signature: Rea Simon MA July 18, 2024 11:18 AM Allergies As of Date: 07/18/2024 Noted Allergy Reaction OXYCODONE 03/11/2017 9 - Itching Date Reviewed: 06/27/2024 Reviewed by: Beatriz Isaac LPN - Fully Assessed Reason for Visit: Population Health Navigation Outreach [3910] Cmt: Aco high risk attempt # 1 Prescriptions as of 07/18/2024 - atorvastatin (LIPITOR) 20 mg tablet Take 1 tablet by mouth once daily. - famotidine (PEPCID) 40 mg tablet Take 1 tablet by mouth two times a day. - apixaban (ELIQUIS) 5 mg tab(s) Take 5 mg by mouth two times a day. - potassium chloride 20 mEq TbER Take 20 mEq by mouth once daily. - furosemide (LASIX) 40 mg tablet Take 40 mg by mouth once daily. - dilTIAZem CD (CARDIZEM CD, CARTIA XT) 120 mg 24 hr capsule Take 1 capsule by mouth once daily. - losartan (COZAAR) 50 mg tablet Take 1 tablet by mouth once daily. - dorzolamide-timolol (COSOPT) 22.3-6.8 mg/mL ophthalmic solution Use 1 Drop in both eyes twice daily. - brimonidine (ALPHAGAN) 0.2 % ophthalmic solution - gabapentin (NEURONTIN) 300 mg capsule Take 1 tablet morning and bedtime May take one tablet in afternoon as needed for pain Per Dr. Martinez - lidocaine (LIDODERM) 5 % Apply 1 Patch as directed every 12 hours. - latanoprost (XALATAN) 0.005 % ophthalmic solution Use 1 Drop in both eyes once daily. - vit C,Y-Tw-atmcs-lutein-zeaxan (PRESERVISION AREDS-2) 250-90-40-1 mg Take 1 tablet by mouth twice daily at 6AM and 9PM. - BIOTIN ORAL Take 5,000 mg by mouth once daily. - Cholecalciferol, Vitamin D3, 25 mcg (1,000 unit) cap Take 1,000 Units by mouth once daily. - CYANOCOBALAMIN, VITAMIN B-12, (VITAMIN B-12 ORAL) Take 1,000 mg by mouth once daily. Problem List As Of Date 07/18/2024 Noted Resolved Chronic urticaria [L50.8] 05/13/2016 Hypertension [I10] Insomnia [G47.00] Post herpetic neuralgia [B02.29] Heart murmur [R01.1] GERD (gastroesophageal reflux disease) [K21.9] Hyperlipidemia [E78.5] Melanoma (HCC) [C43.9] 09/07/2022 VILLEGAS (dyspnea on exertion) [R06.09] 11/20/2017 Bilateral carotid artery disease (HCC) [I77.9] 11/20/2017 Mitral regurgitation [I34.0] Fall [W19.XXXA] 12/19/2018 Aortic stenosis [I35.0] OAB (overactive bladder) [N32.81] 04/09/2021 Mixed urge and stress incontinence [N39.46] 04/09/2021 Pulmonary arterial hypertension (HCC) [I27.21] 09/07/2022 Chronic kidney disease, stage 3a (HCC) [N18.31] 09/13/2023 Atrial fibrillation (HCC) [I48.91] 04/21/2023 Glaucoma [H40.9] 09/15/2023 Gait disturbance [R26.9] 05/04/2024 Encounter Status:Closed by REA ALVAREZ on 07/18/24[facility] Telephone encounter Note* Telephone Encounter - Beatriz Isaac LPN - 06/29/2024 4:20 PM EST Phoned patient's son Ike and reviewed provider's message with him. Patient voiced understanding. Beatriz Isaac LPN [facility]02-27-[facility] Miscellaneous Notes* Telephone Encounter - Beatriz Isaac LPN - 06/29/2024 4:20 PM EST Phoned patient's son Ike and reviewed provider's message with him. Patient voiced understanding. Beatriz Isaac LPN * Telephone Encounter - Beatriz Isaac LPN - 06/29/2024 4:18 PM EST ----- Message from Tony Soares MD sent at 06/29/2024 3:14 PM EST ----- Urine culture negative for infection. WBC and neutrophils are mildly elevated still from her recentinfection and steroid use. I expect this will resolve over the next few weeks. Sugar was high in the 170's which may also be from recent steroid use. Will discuss further at upcoming OV. Other labs unremarkable. documented in this encounterOhio[facility]02-27-2025 Telephone encounter Note * Telephone Encounter - Beatriz Isaac LPN - 06/29/2024 4:18 PM EST ----- Message from Tony Soares MD sent at 06/29/2024 3:14 PM EST ----- Urine culture negative for infection. WBC and neutrophils are mildly elevated still from her recentinfection and steroid use. I expect this will resolve over the next few weeks. Sugar was high in the 170's which may also be from recent steroid use. Will discuss further at upcoming OV. Other labs unremarkable. [facility] Telephone encounter Note* Telephone Encounter - Liv Dwyer RN - 06/29/2024 11:07 AM EST Pts joyce Lora called and is notified of providers results and instructions. She voices understanding. Per her request sent information to [employer] account. Set up f/u appointment for 07/11/24. Liv Dwyer RN [facility]02-27-20[facility] Miscellaneous Notes* Telephone Encounter - Liv Dwyer RN - 06/29/2024 11:07 AM EST Pts joyce Lora called and is notified of providers results and instructions. She voices understanding. Per her request sent information to [employer] account. Set up f/u appointment for 07/11/24. Liv Dwyer RN * Telephone Encounter - Vanessa Siu OCCA - 06/27/2024 12:59 PM EST TC to patient with no answer. Left VM to return call. Order for sling faxed to [facility]. YOSEPH Lynne * Telephone Encounter - Tony Soares MD - 06/27/2024 12:23 PM EST Xray of the right elbow does show a nondisplaced radial head fracture. Typically this is treated with use of a sling for about 24-48 and then early mobilization of the elbow. She should regularly bend and straighten the elbow as well as rotating her palm up and down. May use tylenol, ice, and heat for pain. Rx printed for sling. Please fax to [facility]. Recommend f/u in about 2 weeks to see how the elbow is healing. Call with worsening pain, swelling,or limited ROM. documented in this encounterOhio[facility]02-[facility]-2025 Telephone encounter Note * Telephone Encounter - Juliette Robles MSW - 06/27/2024 2:25 PM EST Clark spoke with patient son Ike and he is looking for resources to help with patient at home and transitioning to AL/LTC. Clark noted that she has home demonstration agent resources along with AL/LTC resources ie. [employer], [employer] that she can compile and mail out to patient. Sw also has [employer] to mail to patient address listed in chart. Ike notes that patient currently resides with son and daughter in law. [facility]02-[facility] Miscellaneous Notes* Telephone Encounter - Juliette Robles MSW - 06/27/2024 2:25 PM EST Clark spoke with patient son Ike and he is looking for resources to help with patient at home and transitioning to AL/LTC. Clark noted that she has home demonstration agent resources along with AL/LTC resources ie. [employer], [employer] that she can compile and mail out to patient. Clark also has [employer] to mail to patient address listed in chart. Ike notes that patient currently resides with son and daughter in law. * Telephone Encounter - Juliette Robles MSW - 06/27/2024 1:05 PM EST Sw left message for patient son to call this Sw back to discuss home demonstration agent assistance options in the area. documented in this encounterOhio[facility]02-[facility]-2025 Telephone encounter Note * Telephone Encounter - Juliette Robles MSW - 06/27/2024 1:05 PM EST Sw left message for patient son to call this Sw back to discuss home demonstration agent assistance options in the area. [facility]02-[facility] Telephone encounter Note* Telephone Encounter - Vanessa Siu OCCA - 06/27/2024 12:59 PM EST TC to patient with no answer. Left VM to return call. Order for sling faxed to [facility]. YOSEPH Lynne [facility]02-[facility] Telephone encounter Note* Telephone Encounter - Tony Soares MD - 06/27/2024 12:23 PM EST Xray of the right elbow does show a nondisplaced radial head fracture. Typically this is treated with use of a sling for about 24-48 and then early mobilization of the elbow. She should regularly bend and straighten the elbow as well as rotating her palm up and down. May use tylenol, ice, and heat for pain. Rx printed for sling. Please fax to [facility]. Recommend f/u in about 2 weeks to see how the elbow is healing. Call with worsening pain, swelling,or limited ROM. [facility]02-[facility] History of Present illness Narrative* Alcon Moreno RT(R) - 06/27/2024 11:20 AM EST Radiology Service Progress Note PATIENT NAME: Jil Díaz DATE OF SERVICE: June 27, 2024 TIME: 11:45 AM PATIENT IDENTITY VERIFICATION COMPLETED USING TWO (2) IDENTIFIERS: Name and Date of confirmedby patient verbally. FALL SCREENING: Has the patient had 2 falls in the last year or 1 fall with injury or currently using an Ambulatory Assistive Device (Walker, Cane, Wheelchair, Crutches, etc.)? No PATIENT GENDER DATA: Assigned female at . status: : No status:NO. PATIENT RELEVANT IMPLANT DATA REVIEWED: Yes PATIENT PRESENTS WITH AN IMPLANTABLE OR ATTACHED EMBALMER APPRENTICE: No RADIOLOGY DEPARTMENT: General X-ray: Exam(s) Completed: Chest X-Ray Upper Extremity X-Ray(s): Elbow, right PERIPHERAL IV DATA: Not applicable SIGNED BY: RENE Abraham) June 27, 2024 11:45 AM documented in this encounterOhiohealth [facility]02-25-2025 NoteHNO ID: [id number] Author: ALCON OMRENO RT (R) Service: ? Author Type: Auxiliary Equipment Tender Type: Progress Notes Filed: 06/27/2024 12:03 Note Text: Radiology Service Progress Note PATIENT NAME: Jil Díaz DATE OF SERVICE: June 27, 2024 TIME: 11:45 AM PATIENT IDENTITY VERIFICATION COMPLETED USING TWO (2) IDENTIFIERS: Name and Date of confirmed by patient verbally. FALL SCREENING: Has the patient had 2 falls in the last year or 1 fall with injury or currently using an Ambulatory Assistive Device (Walker, Cane, Wheelchair, Crutches, etc.)? No PATIENT GENDER DATA: Assigned female at . status: : No status: NO. PATIENT RELEVANT IMPLANT DATA REVIEWED: Yes PATIENT PRESENTS WITH AN IMPLANTABLE OR ATTACHED EMBALMER APPRENTICE: No RADIOLOGY DEPARTMENT: General X-ray: Exam(s) Completed: Chest X-Ray Upper Extremity X-Ray(s): Elbow, right PERIPHERAL IV DATA: Not applicable SIGNED BY: RT Leigh(R) June 27, 2024 11:45 [facility]02-25-2025 NoteHNO ID: [id number] Author: TONY SOARES MD Service: ? Author Type: Physician Type: Progress Notes Filed: 07/02/2024 11:00 Note Text: Chief Complaint Patient presents with: Hospital F/U: 06/18/24 discharge and then ER visit same day HPI Jil Díaz is a 84 year old female who presents here today for Hospital Discharge Follow up. Accompanied today by son and daughter in law. Patient admitted to [facility] from 06/15 to 06/18 for acute respiratory failure 06/04 COVID 19 infection with superimposed bacterial pneumonia. Treated inpatient with Dexamethasone, ceftriaxone and azithromycin while inpatient. Discharged on Augmentin BID x 3 days, Mucinex, dexamethasone x 6 days, tylenol and tramadol. Patient returned to the ER on 06/18 for a fall that occurred at home. Fell backwards and hit the back of her head s well as right forearm causing skin tearing. CT scan of the brain was obtained which was negative for hemorrhage. Noted right posterior scalp contusion on exam. Xrays of the right forearm negative for fracture. Advised she could have occult fracture here with some swelling and was advised on RICE therapy. Skin tears dressed. Discharged home with f/u in 5-7 days with our office. Since discharge, patient states that she has some productive cough with clear sputum. Denies SOB, wheezing, chest pain, chest congestion, fever/chills, nausea, vomiting, diarrhea, hemoptysis. She did complete abx and steroid regimen. Ran out of mucinex. Not treating with anything OTC at this point. No recurrent falls since discharge. No pain on the back of her head, but has a knot where she fell which is slowly healing. Has some pain on the right elbow when resting on it. Using walker for ambulation which works well for her balance. Patient is staying with son and daughter in law who are helping her with ADLs due to memory loss. Asking about home health referral to assist with ADLs at home. Discussed they may need Aide as well and will refer to social work to discuss options for this vs snf. Advised family to call neurology for repeat evaluation earlier this week due to memory concerns, but have not called yet. Past medical history, appointments, medications, allergies reviewed. Previous Medical History PAST MEDICAL HISTORY Diagnosis Date Aortic stenosis moderate Atrial fibrillation (HCC) 04/21/2023 Basal cell carcinoma Cataracts, bilateral s/p removal Chronic kidney disease (CKD), stage III (moderate) (HCC) Chronic urticaria seeing Dr. Card Concussion 05/2015 fell off step stool COVID-19 GERD (gastroesophageal reflux disease) with esophagitis on EGD Glaucoma Hamstring strain bilateral legs Heart murmur History of shingles 2015 Hyperlipidemia Hypertension Insomnia Macular degeneration Melanoma (HCC) Mitral regurgitation Dr. Ibarra Post herpetic neuralgia lidocaine patch Premature contractions, atrial PUD (peptic ulcer disease) 01/2023 Renal cysts, acquired, bilateral Previous Surgical History PAST SURGICAL HISTORY Procedure [...] on File Prior to Visit Medication Sig atorvastatin (LIPITOR) 20 mg tablet Take 1 tablet by mouth once daily. famotidine (PEPCID) 40 mg tablet Take 1 tablet by mouth two times a day. apixaban (ELIQUIS) 5 mg tab(s) Take 5 mg by mouth two times a day. potassium chloride 20 mEq TbER Take 20 mEq by mouth once daily. furosemide (LASIX) 40 mg tablet Take 40 mg by mouth once daily. dilTIAZem CD (CARDIZEM CD, CARTIA XT) 120 mg 24 hr capsule Take 1 capsule by mouth once daily. losartan (COZAAR) 50 mg tablet Take 1 tablet by mouth once daily. dorzolamide-timolol (COSOPT) 22.3-6.8 mg/mL ophthalmic solution Use 1 Drop in both eyes twice daily. brimonidine (ALPHAGAN) 0.2 % ophthalmic solution gabapentin (NEURONTIN) 300 mg capsule Take 1 tablet morning and bedtime May take one tablet in afternoon as needed for pain (more content not included)... [facility]02-25-[facility] History of Present illness Narrative* Tony Soares MD - 06/27/2024 10:09 AM EST Chief Complaint Patient presents with: Hospital F/U: 06/18/24 discharge and then ER visit same day HPI Jil Díaz is a 84 year old female who presents here today for Hospital Discharge Follow up. Accompanied today by son and daughter in law. Patient admitted to [facility] from 06/15 to 06/18 for acute respiratory failure 06/04 COVID 19 infection withsuperimposed bacterial pneumonia. Treated inpatient with Dexamethasone, ceftriaxone and azithromycin while inpatient. Discharged on Augmentin BID x 3 days, Mucinex, dexamethasone x 6 days, tylenol and tramadol. Patient returned to the ER on 06/18 for a fall that occurred at home. Fell backwards and hit the back of her head s well as right forearm causing skin tearing. CT scan of the brain was obtained which was negative for hemorrhage. Noted right posterior scalp contusion on exam. Xrays of the right forearm negative for fracture. Advised she could have occult fracture here with some swelling and was advised on RICE therapy. Skin tears dressed. Discharged home with f/u in 5-7 days with our office. Since discharge, patient states that she has some productive cough with clear sputum. Denies SOB, wheezing, chest pain, chest congestion, fever/chills, nausea, vomiting, diarrhea, hemoptysis. She didcomplete abx and steroid regimen. Ran out of mucinex. Not treating with anything OTC at this point. No recurrent falls since discharge. No pain on the back of her head, but has a knot where she fell which is slowly healing. Has some pain on the right elbow when resting on it. Using walker for ambulation which works well for her balance. Patient is staying with son and daughter in law who are helping her with ADLs due to memory loss. Asking about home health referral to assist with ADLs at home. Discussed they may need Aide as well and will refer to social work to discuss options for this vs snf. Advised family to call neurology for repeat evaluation earlier this week due to memory concerns, but have not called yet. Past medical history, appointments, medications, allergies reviewed. Previous Medical History PAST MEDICAL HISTORY Diagnosis Date Aortic stenosis moderate Atrial fibrillation (HCC) 04/21/2023 Basal cell carcinoma Cataracts, bilateral s/p removal Chronic kidney disease (CKD), stage III (moderate) (HCC) Chronic urticaria seeing Dr. Card Concussion 05/2015 fell off step stool COVID-19 GERD (gastroesophageal reflux disease) with esophagitis on EGD Glaucoma Hamstring strain bilateral legs Heart murmur History of shingles 2015 Hyperlipidemia Hypertension Insomnia Macular degeneration Melanoma (HCC) Mitral regurgitation Dr. Ibarra Post herpetic neuralgia lidocaine patch Premature contractions, atrial PUD (peptic ulcer disease) 01/2023 Renal cysts, acquired, bilateral Previous Surgical History PAST SURGICAL HISTORY Procedure Laterality Date APPENDECTOMY 1969 CATARACT EXTRACTION HX Bilateral 2012 CATARACT SURGERY, [...] on File Prior to Visit Medication Sig atorvastatin (LIPITOR) 20 mg tablet Take 1 tablet by mouth once daily. famotidine (PEPCID) 40 mg tablet Take 1 tablet by mouth two times a day. apixaban (ELIQUIS) 5 mg tab(s) Take 5 mg by mouth two times a day. potassium chloride 20 mEq TbER Take 20 mEq by mouth once daily. furosemide (LASIX) 40 mg tablet Take 40 mg by mouth once daily. dilTIAZem CD (CARDIZEM CD, CARTIA XT) 120 mg 24 hr capsule Take 1 capsule by mouth once daily. losartan (COZAAR) 50 mg tablet Take 1 [...] Drop in both eyes once daily. vit C,W-Cc-jizsy-lutein-zeaxan (PRESERVISION AREDS-2) 250-90-40-1 mg Take 1 tablet [...] Social History Tobacco Use Smoking status: Former Current packs/day: 0.00 Average packs/day: 0.5 packs/day for 10.0 years (5.0 ttl pk-yrs) Types: Cigarettes Start date: 05/03/1978 Quit date: 05/03/1988 Years since quittin.1 Smokeless tobacco: Never Substance Use Topics Alcohol use: No Drug use: No Review of Symptoms REVIEW OF SYSTEMS GENERAL: No fever/chills. RESPIRATORY: See HPI CARDIOVASCULAR: Negative for chest pain, leg swelling, hypertension, CHF or palpitations GI: No nausea, vomiting, or diarrhea SKIN: See HPI EXAM: BP 136/74 Pulse 97 Temp 36.9 C (98.4 F) (Left Tympanic) Resp 16 Wt 58.6 kg (129 lb 3.2 oz) SpO2 99% BMI 22.18 kg/m General Appearance: tired appearing, alert, in no acute distress, well-hydrated, well nourished.. Skin: skin tears on right forearm and right calhoun are in late stages of healing with surrounding bruising. No cellulitis, abscess or drainage. . Head: bruising with golf ball sized hematoma on posterior/crown of her head. Non tender. No bleeding. Lungs: Lungs clear to auscultation. No wheezing, rhonchi, rales.. Heart: RRR with 2/6 YUDELKA. Abdomen: Normal abdominal exam, Abdomen soft, non-tender. Bowel sounds normal. No masses, organomegaly, Negative CVA tenderness. Extremities: No edema. Musculoskeletal: no joint swelling, or limited ROM over right elbow. Mild TTP over radial head. Neurologic: Oriented X 3. Health Maintenance List Depression Screening Never done Anxiety Screening Never done Advance Directive Discussion Never done Influenza Vaccine(1) due on 10/30/2024 Covid-19 Vaccine(4 - season) due on 04/10/2025 Diabetes Screening due on 11/29/2026 DTaP,Tdap,Td Vaccine(4 - Td or Tdap) due on 11/18/2033 Bone Density Screening Completed RSV Vaccine Completed Shingrix Vaccine Completed Pneumococcal Vaccine: 50+ Completed ASSESSMENT/PLAN: 1. COVID-19 virus infection - ICD9: 079.89, ICD10: U07.1 (primary diagnosis) Symptoms improving with continued cough. Given rx for tessalon perles. May use OTC mucinex PRN for any chest congestion. Red flags for re-assessment reviewed with patient in detail. - XR CHEST 2V FRONTAL/LAT 2. Bacterial pneumonia - ICD9: 482.9, ICD10: J15.9 Symptoms improving with continued cough. Completed abx. Given rx for tessalon perles. May use OTC mucinex PRN for any chest congestion. Red flags for re- assessment reviewed with patient in detail. - XR CHEST 2V FRONTAL/LAT 3. Hypoxia - ICD9: 799.02, ICD10: R09.02 Resolved. 4. Fall in home, subsequent encounter - ICD9: V58.89, E888.9, ICD10: W19.XXXD, Y92.009 High risk for falls. Skin tears and scalp hematoma improving slowly. Will obtain repeat xray of theright elbow to rule out occult fracture of radial head. Will call with results. 5. Traumatic injury of head, subsequent encounter - ICD9: V58.89, 959.01, ICD10: S09.90XD Apply ice 15-20 minutes 2-3 times per day until healed. May use tylenol PRN for pain. - [facility] 6. Scalp hematoma, subsequent encounter - ICD9: V58.89, 920, ICD10: S00.03XD See above. 7. Elbow pain, right - ICD9: 719.42, ICD10: M25.521 See above. - [facility] - XR ELBOW SPECIAL VIEWS AP/LAT/OTHER RIGHT 8. Multiple skin tears - ICD9: 879.8, ICD10: T14.8XXA Healing slowly. Apply bactroban ointment BID until healed to prevent infections. 9. At high risk for falls - ICD9: V15.88, ICD10: Z91.81 Referral to [facility] for OT, PT, and SN. - [facility] 10. Memory impairment - ICD9: 780.93, ICD10: R41.3 Previous workup without identified cause. AOx3 today. Will have patient follow up with neurology asrecommended. - [facility] - PRIMARY CARE SOCIAL WORK CONSULT - COMPLETE BLOOD COUNT AND DIFFERENTIAL - COMPREHENSIVE METABOLIC PANEL - URINALYSIS (WITH MICROSCOPIC) WITH CULTURE IF INDICATED 11. Age-related physical debility - ICD9: 797, ICD10: R54 Referral to [facility]. - [facility] - PRIMARY CARE SOCIAL WORK CONSULT 12. Vitamin D deficiency - ICD9: 268.9, ICD10: E55.9 Recheck. - VITAMIN D 25 HYDROXY I spent a total of 40 minutes on the date of the service which included preparing to see the patient, cojx-pr-wcln patient care, completing clinical documentation, obtaining and/or reviewing separately obtained history, performing a medically appropriate examination, counseling and educating the pat ient/family/caregiver, and ordering medications, tests, or procedures. Tony Soares MD [facility] Telephone encounter Note * Telephone Encounter - Lynette Aguillon RN - 06/20/2024 3:36 PM EST Pt's son Ike returned call and given message below. [facility] Miscellaneous Notes* Telephone Encounter - Lynette Aguillon RN - 06/20/2024 3:36 PM EST Pt's son Ike returned call and given message below. * Telephone Encounter - Meme Gant LPN - 06/20/2024 8:30 AM EST Left a message for pt to call the office and ask to speak to a nurse. Meme Gant LPN * Telephone Encounter - Lillie Hu LPN - 06/19/2024 12:30 PM EST Telephone call to son to give providers message below. Message left to call office back. Records obtained. Placed on providers desk for review. Lillie Hu LPN * Telephone Encounter - Tony Soares MD - 06/19/2024 10:13 AM EST Agree with OV this week. Please obtain hospital records. I would also have them call neurology for earlier OV. If her symptoms are severe to the point she cannot be alone and no one else can help her at home, there is always the option to have her admitted through the ER for 3 day stay with placement to snf. * Telephone Encounter - Meme Gant LPN - 06/19/2024 9:34 AM EST Son Ike and his Geno called regarding pt. They called in and got a hospital FU/ER FU scheduled for 06-22-24. PT was to [facility] 06-13-24 and admitted. Pt was having back and leg pain and MRI done and pt was also dx with COVID. Pt released from [facility] on 06-18-24 and then had a fall and they had to take her back to [facility] 06-18-24. Pt had a CT done and nothing was broken. Son concerned pt can not be now left alone. PT has gone from being independent to not being able totake care of herself. Son reports started noticing pt having some problems around [place]. Pt was seen by a Neurologist and told could not drive and they would see her back in 6 months. As of last week pt has been falling and not able to take care of herself. Both Ike and his Geno work and they are not sure what to do here. Please review and advise if there is anything they can do until apt on . Pt has been scheduled for a Hospital/ER FU on 06-22-24 with provider/team. Meme Gant LPN documented in this encounterOhio[facility] Telephone encounter Note * Telephone Encounter - Meme Gant LPN - 06/20/2024 8:30 AM EST Left a message for pt to call the office and ask to speak to a nurse. Meme Gant LPN [facility]02-17-[facility] Telephone encounter Note* Telephone Encounter - Lillie Hu LPN - 06/19/2024 12:30 PM EST Telephone call to son to give providers message below. Message left to call office back. Records obtained. Placed on providers desk for review. Lillie Hu LPN [facility]02-17-2025 Telephone encounter Note* Telephone Encounter - Tony Soares MD - 06/19/2024 10:13 AM EST Agree with OV this week. Please obtain hospital records. I would also have them call neurology for earlier OV. If her symptoms are severe to the point she cannot be alone and no one else can help her at home, there is always the option to have her admitted through the ER for 3 day stay with placement to snf. [facility]02-17-2025 NoteHNO ID: [id number] Author: MEME GNAT LPN Service: ? Author Type: LICENSED NURSE Type: Progress Notes Filed: 06/19/2024 09:54 Note Text: TRANSITION CARE MANAGEMENT (TCM) INITIAL CONTACT Picture Enlarger Outreach Provider Action/FYI: Pt scheduled for apt 06-12-24. Need to discuss walker of some kind/bed rails/wheel chair, no sure what all is needed Initial contact with patient post discharge, spoke to son. Patient identified by name and . TRANSITION CARE MANAGEMENT INITIAL OUTREACH DOCUMENTATION: 06/19/2024 Date of Outreach: Outreach Attempt 1: Contact Made Date of Discharge 06/18/2024 SUMMARY: -Pt discharged from [facility] on 06/18/24. -Admitted for: leg and back pain Do you have a hospital follow up appointment with your PCP? Appointment on 06/22/24 with . Yes. Remind patient of appointment date, time, and location. If not within 14 calendar days of discharge - please reschedule accordingly. MEDICATIONS: Many patients have questions or concerns about their medications once they are home. Were you prescribed any new medications? If yes, what are those medications? Amoxicillin, Mucinex and Tramadol Were you told to hold any medications? No Were any of your medications discontinued? No Do you have any questions about getting or taking your medications? No Your discharge instructions/After visit Summary (AVS) are important in guiding you through the recovery process. Is there anything I might help you understand? No Do you have all the necessary equipment and supplies at home? No, follow site specific process to secure durable medical equipment and/or supplies for the patient, handoff to RN/[facility], or LIP See above listed items son/ are not sure what all they are going to need. Will discuss at apt. Medical records from recent hospitalization: [facility]02-17-2025 History of Present illness Narrative* Meme Gant LPN - 06/19/2024 9:49 AM EST TRANSITION CARE MANAGEMENT (TCM) INITIAL CONTACT Picture Enlarger Outreach Provider Action/FYI: Pt scheduled for apt 06-12-24. Need to discuss walker of some kind/bed rails/wheel chair, no sure what all is needed Initial contact with patient post discharge, spoke to son. Patient identified by name and . TRANSITION CARE MANAGEMENT INITIAL OUTREACH DOCUMENTATION: 06/19/2024 Date of Outreach: Outreach Attempt 1: Contact Made Date of Discharge 06/18/2024 SUMMARY: -Pt discharged from [facility] on 06/18/24. -Admitted for: leg and back pain Do you have a hospital follow up appointment with your PCP? Appointment on 06/22/24 with . Yes. Remind patient of appointment date, time, and location. If not within 14 calendar days of discharge - please reschedule accordingly. MEDICATIONS: Many patients have questions or concerns about their medications once they are home. Were you prescribed any new medications? If yes, what are those medications? Amoxicillin, Mucinex and Tramadol Were you told to hold any medications? No Were any of your medications discontinued? No Do you have any questions about getting or taking your medications? No Your discharge instructions/After visit Summary (AVS) are important in guiding you through the recovery process. Is there anything I might help you understand? No Do you have all the necessary equipment and supplies at home? No, follow site specific process to secure durable medical equipment and/or supplies for the patient, handoff to RN/[facility], or LIP See above listed items son/ are not sure what all they are going toneed. Will discuss at apt. Medical records from recent hospitalization: [facility] documented in this encounterOhio[facility] Telephone encounter Note * Telephone Encounter - Meme Gant LPN - 06/19/2024 9:34 AM EST Son Ike and his Geno called regarding pt. They called in and got a hospital FU/ER FU scheduled for 06-22-24. PT was to [facility] 06-13-24 and admitted. Pt was having back and leg pain and MRI done and pt was also dx with COVID. Pt released from [facility] on 06-18-24 and then had a fall and they had to take her back to [facility] 06-18-24. Pt had a CT done and nothing was broken. Son concerned pt can not be now left alone. PT has gone from being independent to not being able totake care of herself. Son reports started noticing pt having some problems around . Pt was seen by a Neurologist and told could not drive and they would see her back in 6 months. As of last week pt has been falling and not able to take care of herself. Both Ike and his Geno work and they are not sure what to do here. Please review and advise if there is anything they can do until apt on . Pt has been scheduled for a Hospital/ER FU on 06-22-24 with provider/team. Meme Gant LPN [facility]02-[facility] NotePatient Outreach (REBEKAH) JIL DÍAZ ([id number]) 1940 F Date Time Provider Department 06/19/24 TONY SOARES During your visit today, we recorded the following information about you: Meme Gant LPN 06/19/2024 9:54 AM Signed TRANSITION CARE MANAGEMENT (TCM) INITIAL CONTACT Picture Enlarger Outreach Provider Action/FYI: Pt scheduled for apt 06-12-24. Need to discuss walker of some kind/bed rails/wheel chair, no sure what all is needed Initial contact with patient post discharge, spoke to son. Patient identified by name and . TRANSITION CARE MANAGEMENT INITIAL OUTREACH DOCUMENTATION: 06/19/2024 Date of Outreach: Outreach Attempt 1: Contact Made Date of Discharge 06/18/2024 SUMMARY: -Pt discharged from [facility] on 06/18/24. -Admitted for: leg and back pain Do you have a hospital follow up appointment with your PCP? Appointment on 06/22/24 with . Yes. Remind patient of appointment date, time, and location. If not within 14 calendar days of discharge - please reschedule accordingly. MEDICATIONS: Many patients have questions or concerns about their medications once they are home. Were you prescribed any new medications? If yes, what are those medications? Amoxicillin, Mucinex and Tramadol Were you told to hold any medications? No Were any of your medications discontinued? No Do you have any questions about getting or taking your medications? No Your discharge instructions/After visit Summary (AVS) are important in guiding you through the recovery process. Is there anything I might help you understand? No Do you have all the necessary equipment and supplies at home? No, follow site specific process to secure durable medical equipment and/or supplies for the patient, handoff to RN/[facility], or LIP See above listed items son/ are not sure what all they are going to need. Will discuss at apt. Medical records from recent hospitalization: [facility] Allergies As of Date: 06/19/2024 Noted Allergy Reaction OXYCODONE 03/11/2017 9 - Itching Date Reviewed: 05/16/2024 Reviewed by: Brielle Carpio MA - Fully Assessed Reason for Visit: Transition Of Care [4074] Prescriptions as of 06/19/2024 - atorvastatin (LIPITOR) 20 mg tablet Take 1 tablet by mouth once daily. - famotidine (PEPCID) 40 mg tablet Take 1 tablet by mouth two times a day. - apixaban (ELIQUIS) 5 mg tab(s) Take 5 mg by mouth two times a day. - potassium chloride 20 mEq TbER Take 20 mEq by mouth once daily. - furosemide (LASIX) 40 mg tablet Take 40 mg by mouth once daily. - dilTIAZem CD (CARDIZEM CD, CARTIA XT) 120 mg 24 hr capsule Take 1 capsule by mouth once daily. - losartan (COZAAR) 50 mg tablet Take 1 tablet by mouth once daily. - dorzolamide-timolol (COSOPT) 22.3-6.8 mg/mL ophthalmic solution Use 1 Drop in both eyes twice daily. - brimonidine (ALPHAGAN) 0.2 % ophthalmic solution - gabapentin (NEURONTIN) 300 mg capsule Take 1 tablet morning and bedtime May take one tablet in afternoon as needed for pain Per Dr. Martinez - lidocaine (LIDODERM) 5 % Apply 1 Patch as directed every 12 hours. - latanoprost (XALATAN) 0.005 % ophthalmic solution Use 1 Drop in both eyes once daily. - vit C,O-Qt-txhxj-lutein-zeaxan (PRESERVISION AREDS-2) 250-90-40-1 mg Take 1 tablet by mouth twice daily at 6AM and 9PM. - BIOTIN ORAL Take 5,000 mg by mouth once daily. - Cholecalciferol, Vitamin D3, 25 mcg (1,000 unit) cap Take 1,000 Units by mouth once daily. - CYANOCOBALAMIN, VITAMIN B-12, (VITAMIN B-12 ORAL) Take 1,000 mg by mouth once daily. Problem List As Of Date 06/19/2024 Noted Resolved Chronic urticaria [L50.8] 05/13/2016 Hypertension [I10] Insomnia [G47.00] Post herpetic neuralgia [B02.29] Heart murmur [R01.1] GERD (gastroesophageal reflux disease) [K21.9] Hyperlipidemia [E78.5] Melanoma (HCC) [C43.9] 09/07/2022 VILLEGAS (dyspnea on exertion) [R06.09] 11/20/2017 Bilateral carotid artery disease (HCC) [I77.9] 11/20/2017 Mitral regurgitation [I34.0] Fall [W19.XXXA] 12/19/2018 Aortic stenosis [I35.0] OAB (overactive bladder) [N32.81] 04/09/2021 Mixed urge and stress incontinence [N39.46] 04/09/2021 Pulmonary arterial hypertension (HCC) [I27.21] 09/07/2022 Chronic kidney disease, stage 3a (HCC) [N18.31] 09/13/2023 Atrial fibrillation (HCC) [I48.91] 04/21/2023 Glaucoma [H40.9] 09/15/2023 Gait disturbance [R26.9] 05/04/2024 Encounter Status:Closed by COSTA MEME STEPHANIE on 06/19/24[facility]25 [facility] Medical Records Department [address] [place] [address] Discharge Summary 06/18/24 1254 MR#: [id number] Acct: [id number] Name: JIL DÍAZ Rep #: [id number] : 1940 84 From: Elmer Serrano DO PCP: Dr. Bjorn Soares MD Status:ADM IN Location: [place] [id number] Providers Date of Admission: 06/15/24 Primary Care Physician: Dr. Bjorn Soares MD Reason For Visit: ACUTE HYPONIC RESPIRATORY FAILURE-MULTIFACTORIAL Diagnosis Discharge Diagnosis (1) Acute hypoxemic respiratory failure: Status: Acute Code(s): J96.01 - Acute respiratory failure with hypoxia Plan: Acute on chronic 2/2 COVID 19 with superimposed bacterial pneumonia Doubt CHF exacerbation. Echocardiogram shows an EF 70% +1 FL, +1 AI DC home with dexamethasone, discharge with Augmentin Plan Chest pain 2/2 costochondritis. Reassurance provided. L4-5 radiculopathy * follow up with spine surgery as outpt persistent afib: anticoagulated with apixaban. diltiazem. VTE prophylaxis: not indicated as already anticoagulated. Medications at Discharge Home Medications famotidine 40 mg tablet 40 mg PO BID 05/28/17 atorvastatin 10 mg tablet 10 mg PO QHS cholesterol 10/05/19 dorzolamide 22.3 mg-timolol 6.8 mg/mL eye drops 1 drp EACH EYE BID eye heal 12/22/21 latanoprost 0.005 % eye drops 1 drp EACH EYE DAILY eye health 12/22/21 brimonidine 0.2 % eye drops 2 drp EACH EYE BID 11/10/22 cholecalciferol (vitamin D3) 25 mcg (1,000 unit) capsule 2,000 unit PO DAILY supplement 11/10/22 cyanocobalamin (vitamin B-12) 1,000 mcg tablet 2,000 mcg PO DAILY supplement 11/10/22 melatonin 5 mg tablet 5 mg PO HS PRN sleep 11/10/22 Handicap placard #1 ea 04/12/23 vitamins A,C,R-xngw-bakcdb 4,296 mcg-226 mg-90 mg capsule 1 cap PO BID eye health 04/12/23 potassium chloride 20 mEq tablet,extended release 20 meq PO BID #90 tabs 06/01/23 diltiazem HCl 120 mg capsule,extended release 24 hr 120 mg PO BID heart #90 caps 06/23/23 losartan 25 mg tablet 25 mg PO DAILY #90 tabs 06/23/23 furosemide 40 mg tablet (Lasix) 40 mg PO DAILY #90 tabs 04/10/24 apixaban 5 mg tablet (Eliquis) 5 mg PO BID #60 tabs 05/05/24 cetirizine 10 mg tablet 10 mg PO Q12H ask pcp 06/15/24 doxepin 25 mg capsule 25 mg PO QHS itch 06/15/24 lidocaine 5 % topical patch 1 patch topical Q24H rt rib pain 06/15/24 acetaminophen 500 mg tablet 1,000 mg (2 x 500 mg) PO Q8 PRN Pain #0 tabs 06/18/24 amoxicillin 875 mg-potassium clavulanate 125 mg tablet 1 tab PO Q12H #6 tabs 06/18/24 dexamethasone 4 mg tablet 6 mg (1.5 x 4 mg) PO DAILY #6 tabs 06/18/24 guaifenesin 1,200 mg tablet, extended release 12 hr (Mucus Relief ER) 1,200 mg PO BID #10 tabs 06/18/24 tramadol 50 mg tablet 50 mg PO Q6H PRN PRN pain #10 tabs 06/18/24 Hospital Course Operations None Procedures None Summary of Care Provided Minutes Spent on Discharge: 32 Hospital Course: Pt presents with SOB. Found to have COVID 19 and possible secondary bacteria pneumomia. She was treated with dexamethasone and antibiotics with ceftriaxone and azithromycin. She did experience chest pain, but that was deemed to be due to costchonditis from coughing. Weight / BMI Weight Weight: 66.9 kg Body Mass Index (BMI) 25.2 ABG / Lab / Microbiology Data 06/17/24 06:40 06/17/24 06:40 Microbiology: Microbiology 06/15/24 12:15 Urine, Random Legionella Antigen - Final 06/15/24 12:15 Urine, Random Streptococcus pneumoniae Antigen (M - Final 06/15/24 09:30 Mucosa - Nose SARS-CoV-2, Influenza RSV (PCR) - Final SARS-CoV-2 (COVID 19 PCR) Radiography Diagnostic Testing: Radiology Impression KUB X-Ray 06/17/24 16:02 IMPRESSION: No acute abnormality. Reading Location: [facility] Instructions Discharge Diet: Low fat / Low cholesterol DC O2, CPAP, BIPAP Needs Home O2 Discharge instructions: No Meaningful Use Info Meaningful Use Meaningful Use Diagnoses (Choose all that apply): None applicable Ischemic Stroke Statin Dosing Therapy Reference: STATIN DOSE THERAPY REFERENCE: * Patients > 75 years receive moderate or high dose statin therapy. * Patients 75 years or YOUNGER should receive HIGH intensity statin dose unless contraindicated. You will be required to document reason for non-treatment if statin daily dose does not meet guidelines. HIGH DOSE STATIN THERAPY DAILY Atorvastatin > than or = to 40 mg Rosuvastatin > than or = to 20 mg Amlodipine + Atorvastatin > than or = to 2.5/40 mg Ezetimibe + Simvastatin 10/80 mg Simvastatin 80mg Discharge Plan Admission Admit Date/Time: 06/15/24 17:43 Primary Reason for Your Visit: Pneumonia Attending Provider: Elmer Serrano Primary Care Provider: Bjorn Soares Consulting [facility] (more content not included)...[facility] 06-15-2024 Evaluation note* Diagnosis Onset Date Resolution Status Admit Date COVID-19 acute June 15, 2024 5:43pm Acute hypoxemic respiratory failure resolved June 15, 025 5:43pm Acute left lumbar radiculopathy inactive June 15 025 5:43pm Aortic stenosis inactive June 15, 2024 5:43pm Atrial fibrillation inactive 2024 5:43pm Hyperlipidemia inactive June 032024 5:43pm Secondary pulmonary arterial hypertension inactive June 15, 025 5:43pm Anemia acute August 10 7:32am Constipation acute August 10, 2024 7:32am Weight loss acute August 10 025 7:32am Atrial fibrillation acute September 042024 8:21am Essential (primary) hypertension chronic September 04, 2024 8: 21am Nonrheumatic aortic (valve) stenosis chronic September 04, 2024 8: 21am Nonrheumatic mitral (valve) insufficiency chronic September 04, 2024 8: 21am Hyperlipidemia inactive September 04 025 8:21am [facility] Work Phone: 1(386) 319-969701-21-2025 NoteHNO ID: [id number] Author: BRIELLE JERRY MA Service: ? Author Type: Picture Enlarger Type: Progress Notes Filed: 05/23/2024 09:38 Note Text: POPULATION HEALTH NAVIGATION OUTREACH Action/FYI LVM MYCHART MESSAGE SENT Topic Due (Y or N) Comments Medicare Wellness Y PCP Follow up Mammogram Colorectal Cancer Screening A1C Dilated Retinal Exam (MELANY) KED (UACR and eGFR) HCC Y Flu Vaccine Care Everywhere Reviewed MyChart Activation Updated Appointment Note Reason for Outreach Care Gap/HCC or Scheduling Wellness Visits Care Gaps due: Medicare Annual Wellness Visit Patient Contacted: Unable or unnecessary to reach patient: Left message MyChart message sent HCC related Navigation Signature: Brielle Jerry MA May 23, 2024 9:33 [facility]01-21-2025 History of Present illness Narrative* Brielle Jerry MA - 05/23/2024 9:33 AM EST POPULATION HEALTH NAVIGATION OUTREACH Action/FYI LVAntwan MYCHART MESSAGE SENT Topic Due (Y or N) Comments Medicare Wellness Y PCP Follow up Mammogram Colorectal Cancer Screening A1C Dilated Retinal Exam (MELANY) KED (UACR and eGFR) HCC Y Flu Vaccine Care Everywhere Reviewed MyChart Activation Updated Appointment Note Reason for Outreach Care Gap/HCC or Scheduling Wellness Visits Care Gaps due: Medicare Annual Wellness Visit Patient Contacted: Unable or unnecessary to reach patient: Left message MyChart message sent HCC related Navigation Signature: Brielle Jerry MA May 23, 2024 9:33 AM documented in this encounterOhio[facility]25 NotePatient Outreach (NETNAV) JIL DÍAZ ([id number]) 1940 F Date Time Provider Department 05/23/24 BRIELLE JERRY During your visit today, we recorded the following information about you: Brielle Jerry MA 05/23/2024 9:38 AM Signed POPULATION HEALTH NAVIGATION OUTREACH Action/FYI LVM IntransaHARGoshi MESSAGE SENT Topic Due (Y or N) Comments Medicare Wellness Y PCP Follow up Mammogram Colorectal Cancer Screening A1C Dilated Retinal Exam (MELANY) KED (UACR and eGFR) HCC Y Flu Vaccine Care Everywhere Reviewed MyChart Activation Updated Appointment Note Reason for Outreach Care Gap/HCC or Scheduling Wellness Visits Care Gaps due: Medicare Annual Wellness Visit Patient Contacted: Unable or unnecessary to reach patient: Left message 2Vancouverhart message sent HCC related Navigation Signature: Brielle Jerry MA May 23, 2024 9:33 AM Allergies As of Date: 05/23/2024 Noted Allergy Reaction OXYCODONE 03/11/2017 9 - Itching Date Reviewed: 05/16/2024 Reviewed by: Brielle Carpio MA - Fully Assessed Reason for Visit: Population Health Navigation Outreach [3910] Cmt: [facility] Prescriptions as of 05/23/2024 - atorvastatin (LIPITOR) 20 mg tablet Take 1 tablet by mouth once daily. - famotidine (PEPCID) 40 mg tablet Take 1 tablet by mouth two times a day. - apixaban (ELIQUIS) 5 mg tab(s) Take 5 mg by mouth two times a day. - potassium chloride 20 mEq TbER Take 20 mEq by mouth once daily. - furosemide (LASIX) 40 mg tablet Take 40 mg by mouth once daily. - dilTIAZem CD (CARDIZEM CD, CARTIA XT) 120 mg 24 hr capsule Take 1 capsule by mouth once daily. - losartan (COZAAR) 50 mg tablet Take 1 tablet by mouth once daily. - dorzolamide-timolol (COSOPT) 22.3-6.8 mg/mL ophthalmic solution Use 1 Drop in both eyes twice daily. - brimonidine (ALPHAGAN) 0.2 % ophthalmic solution - gabapentin (NEURONTIN) 300 mg capsule Take 1 tablet morning and bedtime May take one tablet in afternoon as needed for pain Per Dr. Martinez - lidocaine (LIDODERM) 5 % Apply 1 Patch as directed every 12 hours. - latanoprost (XALATAN) 0.005 % ophthalmic solution Use 1 Drop in both eyes once daily. - vit C,U-Tx-kigeo-lutein-zeaxan (PRESERVISION AREDS-2) 250-90-40-1 mg Take 1 tablet by mouth twice daily at 6AM and 9PM. - BIOTIN ORAL Take 5,000 mg by mouth once daily. - Cholecalciferol, Vitamin D3, 25 mcg (1,000 unit) cap Take 1,000 Units by mouth once daily. - CYANOCOBALAMIN, VITAMIN B-12, (VITAMIN B-12 ORAL) Take 1,000 mg by mouth once daily. Problem List As Of Date 05/23/2024 Noted Resolved Chronic urticaria [L50.8] 05/13/2016 Hypertension [I10] Insomnia [G47.00] Post herpetic neuralgia [B02.29] Heart murmur [R01.1] GERD (gastroesophageal reflux disease) [K21.9] Hyperlipidemia [E78.5] Melanoma (HCC) [C43.9] 09/07/2022 VILLEGAS (dyspnea on exertion) [R06.09] 11/20/2017 Bilateral carotid artery disease (HCC) [I77.9] 11/20/2017 Mitral regurgitation [I34.0] Fall [W19.XXXA] 12/19/2018 Aortic stenosis [I35.0] OAB (overactive bladder) [N32.81] 04/09/2021 Mixed urge and stress incontinence [N39.46] 04/09/2021 Pulmonary arterial hypertension (HCC) [I27.21] 09/07/2022 Chronic kidney disease, stage 3a (HCC) [N18.31] 09/13/2023 Atrial fibrillation (HCC) [I48.91] 04/21/2023 Glaucoma [H40.9] 09/15/2023 Gait disturbance [R26.9] 05/04/2024 Encounter Status:Closed by REYMUNDOBRIELLE FIGUEROA on 05/23/24[facility] History and physical note* Julia Barrow MD - 05/16/2024 8:30 AM EST 08:38 - 09:42 Chart Review Parenthetic [comments] and tinted emphasis mine. Consultation is requested for an opinion regarding the evaluation and treatment of Jil Díaz. My final impression and recommendations will be communicated back to the referring physician by way of the shared medical record or letter via [place] mail. Jil Díaz is referred by COY Colon, 04/12/24, for hallucinations and impaired memory/cognition. On 04/10/24 she documented: Since ER visit hs not had anymore hallucinations. 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 Patient does not deny this but does not elaborate much when asked about it. Son said she drove to [place] the other day and did say she got lost come home. Per son was not gone for an extended amount of time. MMSE completed five days ago with sore of 26/30. Currently lives with son. No recent medication changes or head injury. Son reports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 Notes Filed: 05/08/2024 14:31 Note Text: Episode Visit Count: 1 Therapist That Will Accept/Oversee The Plan Of Care: Odette Harvey Start of Care Date: 05/04/24 Onset Date: 06/30/23 Plan of Care Certification Date: 05/04/24 Next Certification Due Date: 06/15/24 Patient Identified by Name and Date of : Yes REHABILITATION AND SPORTS THERAPY PHYSICAL THERAPY EVALUATION PLAN OF CARE: Assessment: Jil Díaz presents with diagnosis of gait disturbance that interferes with walking in the house, walking in the community . The patient presents with impairments in ADL's, balance, gait, independence in exercise, joint mobility, overall function, patient reported outcome measures, posture, strength, and symptom management. PROMIS? (Patient-Reported Outcomes Measurement Information System) scores were reviewed and identified as a rehabilitation concern. Prognosis for therapy is Good due to: within-session changes, positive past response to therapy, acuteness of condition, good overall health status, current objective clinical presentation . The patient will benefit from skilled therapy services to meet the goals established for this plan of care as noted below. Assessment Fall Risk : Active low risk Goals for Episode of Care: established 05/04/24 Patient will report no falls. Pt. Will complete TUG test in 10 sec or less with SC. Patient Goals: reduce fall risk Time Frame for Goals and Treatment : 06/15/24 Planned Interventions, Frequency, and Duration: Current Frequency: 1x/week Duration: 6 weeks Total Number of Visits Planned: 6 Planned Treatment Interventions: Gait Training (02684), Self-shelter management (96036), Therapeutic activities (63617), Manual therapy (24035), Neuromuscular re-education (63996), Therapeutic exercise (89085) PLAN FOR NEXT VISIT: Pt. to return if she feels that she needs therapy later. Patient demonstrates good understanding of plan of care and treatment. The above goals and plan of care were discussed and agreed upon by patient/family. SUBJECTIVE: for s/p fall on giving. Pt. fell at family member's house. She hurt the knee and the wrist but no fx discovered at the ED. Pt. was not amb with a cane in the house. She admits to PT that she does not use it much -- despite stating that she remembers PT asked her to use it at all times. Pt. reports that she hasn't driven since December due to her family not letting her drive. Denies other falls over the past year. Pt. states that she doesn't feel that she needs PT, but wants provider's advice. Patient Goals: reduce fall risk Functional Limitations: walking in the house, walking in the community Prior Level of Function: Independent without limitations Relevant History Employment: Retired Intake Information: Prescription present Previous Treatment: Physical Therapy Falls Interview: Two or more falls in the last year Falls History # of falls in past year: 1 # of falls resulting in an injury in past year: 1 Pain: Pain Pain Level: 0 Post Treatment Pain Post Treatment Pain Level: 0 PROMIS Scales 05/04/2024 09/21/2023 08/17/2023 Higher is Better Phys Func - Score 40 (mild dysfunction) 30 (moderate dysfunction) 53 (within normal limits) Phys Func - Percentile 16 2 62 Self-Eff Symptom - Score 54 (Average) 55 (Average) Self-Eff Symptom - Percentile 66 69 T-scores: mean of general population = 50. 5 points is clinically meaningfully difference Percentiles provide an indication of how the patient's score ranks in relation to the general population. Higher percentile rankings indicate better function/quality of life. 50th percentile is the average of the general population and indicates half of respondents had a worse score. OBJECTIVE MEASURES WITH LEVEL OF FUNCTION: Posture / Alignment Posture: Forward head, Increased thoracic kyphosis Mobility Sit To Stand: Independent Stand To Sit: Independent Gait Gait: Independent Gait Distance (feet): 50 Gait Device: Cane Gait Deviations: General Deviations Gait Observation: lacks heel strike, clears toes, not LOB with turns Functional Performance Test Results Assistive Device: Cane 30 Second Chair Stand Test: 13 reps Timed Up and Go (sec): 12 sec Timed Up and Go - Condition 2 (sec) : 11 Education: Education Learning Preferences: Demonstration, Explanation, Performance, Printed Materials Barriers: None Learning/educational needs: Plan of Care, Home exercise program, Posture Education Provided: Yes, see treatment interventions for education provided Education Provided To: Patient Education Mode/Type: Demonstration, Literature/Printed Materials, Performance, Explanation/Discussion Response to Education/Teach Back: States/Identifies, Return Demonstration TREATMENT: PT Treatment Interventions: Mirna (more content not included)...[facility]01-02-2025 History of Present illness Narrative* Odette Harvey, PT - 05/04/2024 10:04 AM EST Images from the original note were not included. Episode Visit Count: 1 Therapist That Will Accept/Oversee The Plan Of Care: Odette MatamorosCamiloDarrion Start of Care Date: 05/04/24 Onset Date: 06/30/23 Plan of Care Certification Date: 05/04/24 Next Certification Due Date: 06/15/24 Patient Identified by Name and Date of : Yes REHABILITATION AND SPORTS THERAPY PHYSICAL THERAPY EVALUATION PLAN OF CARE: Assessment: Jil Díaz presents with diagnosis of gait disturbance that interferes with walkingin the house, walking in the community . The patient presents with impairments in ADL's, balance, gait, independence in exercise, joint mobility, overall function, patient reported outcome measures, posture, strength, and symptom management. PROMIS (Patient-Reported Outcomes Measurement InformationSystem) scores were reviewed and identified as a rehabilitation concern. Prognosis for therapy is Good due to: within-session changes, positive past response to therapy, acuteness of condition, good overall health status, current objective clinical presentation . The patient will benefit from skilled therapy services to meet the goals established for this plan of care as noted below. Assessment Fall Risk : Active low risk Goals for Episode of Care: established 05/04/24 Patient will report no falls. Pt. Will complete TUG test in 10 sec or less with SC. Patient Goals: reduce fall risk Time Frame for Goals and Treatment : 06/15/24 Planned Interventions, Frequency, and Duration: Current Frequency: 1x/week Duration: 6 weeks Total Number of Visits Planned: 6 Planned Treatment Interventions: Gait Training (36619), Self-shelter management (75640), Therapeutic activities (24398), Manual therapy (00306), Neuromuscular re-education (70987), Therapeutic exercise (57687) PLAN FOR NEXT VISIT: Pt. to return if she feels that she needs therapy later. Patient demonstrates good understanding of plan of care and treatment. The above goals and plan of care were discussed and agreed upon by patient/family. SUBJECTIVE: for s/p fall on giving. Pt. fell at family member's house. She hurt the knee and the wrist but no fx discovered at the ED. Pt. was not amb with a cane in the house. She admits to PT that she does not use it much -- despite stating that she remembers PT asked her to use it at all times. Pt. reports that she hasn't driven since December due to her family not letting her drive. Denies other falls over the past year. Pt. states that she doesn't feel that she needs PT, but wants provider's advice. Patient Goals: reduce fall risk Functional Limitations: walking in the house, walking in the community Prior Level of Function: Independent without limitations Relevant History Employment: Retired Intake Information: Prescription present Previous Treatment: Physical Therapy Falls Interview: Two or more falls in the last year Falls History # of falls in past year: 1 # of falls resulting in an injury in past year: 1 Pain: Pain Pain Level: 0 Post Treatment Pain Post Treatment Pain Level: 0 PROMIS Scales 05/04/2024 09/21/2023 08/17/2023 Higher is Better Phys Func - Score 40 (mild dysfunction) 30 (moderate dysfunction) 53 (within normal limits) Phys Func - Percentile 16 2 62 Self-Eff Symptom - Score 54 (Average) 55 (Average) Self-Eff Symptom - Percentile 66 69 T-scores: mean of general population = 50. 5 points is clinically meaningfully difference Percentiles provide an indication of how the patient's score ranks in relation to the general population. Higher percentile rankings indicate better function/quality of life. 50th percentile is the average of the general population and indicates half of respondents had a worse score. OBJECTIVE MEASURES WITH LEVEL OF FUNCTION: Posture / Alignment Posture: Forward head, Increased thoracic kyphosis Mobility Sit To Stand: Independent Stand To Sit: Independent Gait Gait: Independent Gait Distance (feet): 50 Gait Device: Cane Gait Deviations: General Deviations Gait Observation: lacks heel strike, clears toes, not LOB with turns Functional Performance Test Results Assistive Device: Cane 30 Second Chair Stand Test: 13 reps Timed Up and Go (sec): 12 sec Timed Up and Go - Condition 2 (sec) : 11 Education: Education Learning Preferences: Demonstration, Explanation, Performance, Printed Materials Barriers: None Learning/educational needs: Plan of Care, Home exercise program, Posture Education Provided: Yes, see treatment interventions for education provided Education Provided To: Patient Education Mode/Type: Demonstration, Literature/Printed Materials, Performance, Explanation/Discussion Response to Education/Teach Back: States/Identifies, Return Demonstration TREATMENT: PT Treatment Interventions: Self-Chcf Management Evaluation Self-Chcf Management: 1: strongly advised pt. to use her cane at all times due to having a fall in March. 2: discussed the result of strength and balance testing - advised that we at least hold chart if pt. should begin to experience declining balance, otherwise, she currently scores WFL 3: answered pt .questions regarding her appointment to see an neurologist - explained that this specialty provider can assess her family's cognitive concerns. 4: discussed at length safety awareness, pt. demonstrates good safety awareness with transfers and gait during PT evaluation Skilled Intervention: Skilled judgment in the selection of proper modification for activity of daily living/home management based on clinical presentation, deficits, and needs. Reviewed patient specific diagnosis in relation to activities of daily living/home management. Activity progression based on professional judgement. Billing * Evaluation Low Complexity: 1 Unit Self-Care/Home Management Treatment Minutes: 14 Skilled Treatment Time Minutes (timed and untimed codes): 44 Total Session Time (minutes): 44 Session Start Time : 1002 Session Stop Time : 1046 Odette Harvey PT documented in this encounterOhio[facility] Evaluation note* Diagnosis Onset Date Resolution Status Admit Date Chronic constipation chronic [facility]ce [facility] 2023 1:34pm COVID-19 acute June 15, 2024 5:43pm Acute hypoxemic respiratory failure resolved June 15, 025 5:43pm Acute left lumbar radiculopathy inactive June 15 025 5:43pm Aortic stenosis inactive June 15, 2024 5:43pm Atrial fibrillation inactive 2024 5:43pm Hyperlipidemia inactive June 032024 5:43pm Secondary pulmonary arterial hypertension inactive June 15 025 5:43pm [facility] Work Phone: [phone]) 971-572312-11-2024 Telephone encounter Note* Telephone Encounter - Sima Jennings LPN - 04/12/2024 11:48 AM EST Patients son notified and voiced his understanding. [facility]12-11-2024 Miscellaneous Notes* Telephone Encounter - Sima Jennings LPN - 04/12/2024 11:48 AM EST Patients son notified and voiced his understanding. * Telephone Encounter - Lillie Hu LPN - 04/12/2024 11:41 AM EST Telephone call placed to patients rafi Ramirez. Message left to call office back for update. Lillie Hu LPN * Telephone Encounter - Drea Colon APRN.CNP - 04/12/2024 11:25 AM EST MRI no showing any acute findings to explain behavior. Discussed with Dr. Soares and he recommend referral to neurology. I have placed order for this, please assist in scheduling. Drea Colon APRN.COY documented in this encounterOhio[facility]12-11-2024 Telephone encounter Note * Telephone Encounter - Lillie Hu LPN - 04/12/2024 11:41 AM EST Telephone call placed to patients rafi Ramirez. Message left to call office back for update. Lillie Hu LPN [facility]12-11-2024 Telephone encounter Note* Telephone Encounter - Drea Colon APRN.CNP - 04/12/2024 11:25 AM EST MRI no showing any acute findings to explain behavior. Discussed with Dr. Soares and he recommend referral to neurology. I have placed order for this, please assist in scheduling. Drea Colon APRN.CNP [facility]12-11-2024 NoteHNO ID: [id number] Author: AIDAN JAVED RT(Darío) Service: ? Author Type: Technologist Type: Progress Notes Filed: 04/12/2024 09:40 Note Text: Radiology Service Progress Note DATE OF SERVICE: April 12, 2024 TIME: 9:40 AM PATIENT IDENTITY VERIFICATION COMPLETED USING TWO (2) STANDARD IDENTIFIERS: Name and Date of confirmed by patient verbally. FALL SCREENING: Has the patient had 2 falls in the last year or 1 fall with injury or currently using an Ambulatory Assistive Device (Walker, Cane, Wheelchair, Crutches, etc.)? No PATIENT GENDER DATA: Female. status: : No status: NO. PATIENT RELEVANT IMPLANT DATA REVIEWED: Yes PATIENT PRESENTS WITH AN IMPLANTABLE OR ATTACHED EMBALMER APPRENTICE: No ALLERGIES: Reviewed and unchanged CONTRAST ALLERGY: NO. EXAM: MRI - CONTRAST TYPE: GROUP II PERIPHERAL IV DATA: Ambulatory: A peripheral IV was started in the Right antecubital site with a Angio cath: 22 gauge. RADIOLOGY DEPARTMENT: MR; Exam(s) Completed: Head: Routine Brain SIGNATURE: RT Natalie(Darío) PATIENT NAME: Jil Díaz DATE: April 12, 2024 TIME: 9:40 [facility]12-09-2024 NoteHNO ID: [id number] Author: DREA COLON APRN.ASSISTED LIVING CARE MANAGER Service: ? Author Type: Nurse Practitioner Type: Progress Notes Filed: 04/10/2024 16:01 Note Text: 04/10/2024 Patient presents with: ER F/U: UTI AND head CT; [facility] SUBJECTIVE: This is a 83 year old, accompanied by son, that is here today for Above Complaints. HOSPITAL/ER FOLLOW UP: Reason for visit: confusion and hallucinations Which facility: [facility] Date of visit: 04/05/2024 Diagnosis: confusion Testing done: CT brain, blood work, urine, XR and EKG Treatment given: potassium supplement for hypokalemia Since ER visit hs not had anymore hallucinations. 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 Patient does not deny this but does not elaborate much when asked about it. Son said she drove to [place] the other day and did say she got lost come home. Per son was not gone for an extended amount of time. MMSE completed five days ago with sore of 26/30. Currently lives with son. No recent medication changes or head injury. Son reports he balance is not good. Had a fall on Thanksgiving without injury. ER records reviewed PAST MEDICAL HISTORY Diagnosis Date Aortic stenosis moderate Atrial fibrillation (HCC) 04/21/2023 Basal cell carcinoma Cataracts, bilateral s/p removal Chronic kidney disease (CKD), stage III (moderate) (HCC) Chronic urticaria seeing Dr. Card Concussion 05/2015 fell off step stool COVID-19 GERD (gastroesophageal reflux disease) with esophagitis on EGD Glaucoma Hamstring strain bilateral legs Heart murmur History of shingles 2015 Hyperlipidemia Hypertension Insomnia Macular degeneration Melanoma (HCC) Mitral regurgitation Dr. Ibarra Post herpetic neuralgia lidocaine patch Premature contractions, atrial PUD (peptic ulcer disease) 01/2023 Renal cysts, acquired, bilateral ALLERGIES Oxycodone MEDICATIONS Current Outpatient Medications Medication Sig nitrofurantoin monohydrate and macrocrystal (MACROBID) 100 mg capsule Take 1 capsule by mouth two times a day with meals for 7 days. atorvastatin (LIPITOR) 20 mg tablet Take 1 tablet by mouth once daily. famotidine (PEPCID) 40 mg tablet Take 1 tablet by mouth two times a day. apixaban (ELIQUIS) 5 mg tab(s) Take 5 mg by mouth two times a day. potassium chloride 20 mEq TbER Take 20 mEq by mouth once daily. furosemide (LASIX) 40 mg tablet Take 40 mg by mouth once daily. dilTIAZem CD (CARDIZEM CD, CARTIA XT) 120 mg 24 hr capsule Take 1 capsule by mouth once daily. losartan (COZAAR) 50 mg tablet Take 1 [...] Drop in both eyes once daily. vit C,Q-Vr-dhyrx-lutein-zeaxan (PRESERVISION AREDS-2) 250-90-40-1 mg Take 1 tablet [...] Social History Tobacco Use Smoking status: Former Current packs/day: 0.00 Average packs/day: 0.5 packs/day for 10.0 years (5.0 ttl pk-yrs) Types: Cigarettes Start date: 05/03/1978 Quit date: 05/03/1988 Years since quittin.9 Smokeless tobacco: Never Substance Use Topics Alcohol use: No Drug use: No REVIEW OF SYSTEMS All other reviewed and negative other than HPI. OBJECTIVE: BP 138/84 Pulse 78 Resp 18 Wt 61.4 kg (135 lb 5.8 oz) SpO2 94% BMI 23.23 kg/m? . Vital signs reviewed by this provider. APPEARANCE Well appearing, alert, in no acute distress, well-hydrated, well nourished. Depression Screening Never done Anxiety Screening Never done Advance Directive Discussion Never done Influenza Vaccine(1) due on 10/30/2024 Covid-19 Vaccine( - 2023- season) due on 04/10/2025 Diabetes Screening due on 11/29/2026 DTaP,Tdap,Td Vaccine(4 - Td or Tdap) due on 11/18/2033 Bone Density Screening Completed RSV Vaccine Completed Shingrix Vaccine Completed Pneumococcal Vaccine: 65+ Completed ASSESSMENT/PLAN: 1. Cognitive impairment, mild, so stated - ICD9: 331.83, ICD10: G31.84 (primary diagnosis) - will obtain MRI for possible Lewy Body Dementia - no red flag symptoms or exam findings - red flag symptoms discussed - would recommend she not (more content not included)...[facility]12-09-2024 History of Present illness Narrative* Drea Colon APRN.COY - 04/10/2024 2:24 PM EST 04/10/2024 Patient presents with: ER F/U: UTI & head CT; [facility] SUBJECTIVE: This is a 83 year old, accompanied by son, that is here today for Above Complaints. HOSPITAL/ER FOLLOW UP: Reason for visit: confusion and hallucinations Which facility: [facility] Date of visit: 04/05/2024 Diagnosis: confusion Testing done: CT brain, blood work, urine, XR and EKG Treatment given: potassium supplement for hypokalemia Since ER visit hs not had anymore hallucinations. 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 Patient does not deny this but does not elaborate much when asked about it. Son said she drove to [place] the other day and did say she got lost come home. Per son wasnot gone for an extended amount of time. MMSE completed five days ago with sore of 26/30. Currentlylives with son. No recent medication changes or head injury. Son reports he balance is not good. Had a fall on Thanksgiving without injury. ER records reviewed PAST MEDICAL HISTORY Diagnosis Date Aortic stenosis moderate Atrial fibrillation (HCC) 04/21/2023 Basal cell carcinoma Cataracts, bilateral s/p removal Chronic kidney disease (CKD), stage III (moderate) (HCC) Chronic urticaria seeing Dr. Card Concussion 05/2015 fell off step stool COVID-19 GERD (gastroesophageal reflux disease) with esophagitis on EGD Glaucoma Hamstring strain bilateral legs Heart murmur History of shingles 2016 Hyperlipidemia Hypertension Insomnia Macular degeneration Melanoma (HCC) Mitral regurgitation Dr. Ibarra Post herpetic neuralgia lidocaine patch Premature contractions, atrial PUD (peptic ulcer disease) 01/2023 Renal cysts, acquired, bilateral ALLERGIES Oxycodone MEDICATIONS Current Outpatient Medications Medication Sig nitrofurantoin monohydrate and macrocrystal (MACROBID) 100 mg capsule Take 1 capsule by mouth two times a day with meals for 7 days. atorvastatin (LIPITOR) 20 mg tablet Take 1 tablet by mouth once daily. famotidine (PEPCID) 40 mg tablet Take 1 tablet by mouth two times a day. apixaban (ELIQUIS) 5 mg tab(s) Take 5 mg by mouth two times a day. potassium chloride 20 mEq TbER Take 20 mEq by mouth once daily. furosemide (LASIX) 40 mg tablet Take 40 mg by mouth once daily. dilTIAZem CD (CARDIZEM CD, CARTIA XT) 120 mg 24 hr capsule Take 1 capsule by mouth once daily. losartan (COZAAR) 50 mg tablet Take 1 [...] Drop in both eyes once daily. vit C,L-Ju-azkso-lutein-zeaxan (PRESERVISION AREDS-2) 250-90-40-1 mg Take 1 tablet [...] Social History Tobacco Use Smoking status: Former Current packs/day: 0.00 Average packs/day: 0.5 packs/day for 10.0 years (5.0 ttl pk-yrs) Types: Cigarettes Start date: 05/03/1978 Quit date: 05/03/1988 Years since quittin.9 Smokeless tobacco: Never Substance Use Topics Alcohol use: No Drug use: No REVIEW OF SYSTEMS All other reviewed and negative other than HPI. OBJECTIVE: BP 138/84 Pulse 78 Resp 18 Wt 61.4 kg (135 lb 5.8 oz) SpO2 94% BMI 23.23 kg/m . Vital signs reviewed by this provider. APPEARANCE Well appearing, alert, in no acute distress, well-hydrated, well nourished. Depression Screening Never done Anxiety Screening Never done Advance Directive Discussion Never done Influenza Vaccine(1) due on 10/30/2024 Covid-19 Vaccine(4 - 2023- season) due on 04/10/2025 Diabetes Screening due on 11/29/2026 DTaP,Tdap,Td Vaccine(4 - Td or Tdap) due on 11/18/2033 Bone Density Screening Completed RSV Vaccine Completed Shingrix Vaccine Completed Pneumococcal Vaccine: 65+ Completed ASSESSMENT/PLAN: 1. Cognitive impairment, mild, so stated - ICD9: 331.83, ICD10: G31.84 (primary diagnosis) - will obtain MRI for possible Lewy Body Dementia - no red flag symptoms or exam findings - red flag symptoms discussed - would recommend she not drive at this time - MRI BRAIN WO/W IVCON - IV CONTRAST (RADIOLOGY PROCEDURE) - NOT ON MAR- - follow-up pending MRI to ER with red flag symptoms 2. Gait disturbance - ICD9: 781.2, ICD10: R26.9 - CONSULT TO PHYSICAL THERAPY Drea Colon APRN.ASSISTED LIVING CARE MANAGER Prescription instructions reviewed with patient as applicable. Patient advised if symptoms do not improve or if symptoms worsen sooner, to contact their primary care physician. Potential red flag symptoms discussed with the patient. Reviewed appropriate action plan to take if red flag symptoms occur. Patient agreeable to treatment plan. Medical Decision Making: Problems: Moderate: New problem with uncertain prognosis Data: Unique test(s) ordered: 1 Risk: Moderate: Moderate risk from testing/treatment Medical Decision Making Level: 4 - Moderate documented [facility] Telephone encounter Note * Telephone Encounter - Meme Gant LPN - 04/06/2024 3:58 PM EST Spoke with pt and she is not sure what date she was to ER only that she thought it was this week. Pt not sure what ER she was to. Pt reports she does know it was for a UTI and CT of head. ER apt booked but do not have any detailed information. Meme Gant LPN [facility]12-05-[facility] Telephone encounter Note* Telephone Encounter - Meme Gant LPN - 04/06/2024 3:58 PM EST ----- Message from Tony Soares MD sent at 04/06/2024 1:59 PM EST ----- Urine culture negative for infection. May stop macrobid at this time. F/u from ER visit early next week. [facility]12-05-[facility] Miscellaneous Notes* Telephone Encounter - Meme Gant LPN - 04/06/2024 3:58 PM EST Spoke with pt and she is not sure what date she was to ER only that she thought it was this week. Pt not sure what ER she was to. Pt reports she does know it was for a UTI and CT of head. ER apt booked but do not have any detailed information. Meme Gant LPN * Telephone Encounter - Meme Gant LPN - 04/06/2024 3:58 PM EST ----- Message from Tony Soares MD sent at 04/06/2024 1:59 PM EST ----- Urine culture negative for infection. May stop macrobid at this time. F/u from ER visit early next week. documented in this encounterOhio[facility]12-04-2024 NoteHNO ID: [id number] Author: TONY SOARES MD Service: ? Author Type: Physician Type: Progress Notes Filed: 04/05/2024 09:49 Note Text: Chief Complaint Patient presents with: memory concerns Hallucinations HPI Jil S Mei is a 83 year old female who presents here today for Above Complaints. Patient accompanied today by son and daughter in law who are helping to provide her history. Family reports that about 2 weeks ago patient had sudden change in memory. They report that she was in the car and thought that there was a child in the car when there was none and this persisted most of the day. There have been other times where she has thought [employer] was out to the home or that family worked for [employer]. Prior to this had some mild confusion and had to think about dates and names a big before she could come up with them. No recent change in medication. Did have a fall on thanksgiving without head injury or LOC, but this was after symptoms started. Denies fever/chills, dysuria, hematuria, frequency, urgency, abdominal pain, nausea, vomiting, diarrhea, wheezing, SOB, slurred speech, vision changes, numbness/tingling/weakness. Past medical history, appointments, medications, allergies reviewed. Previous Medical History PAST MEDICAL HISTORY Diagnosis Date Aortic stenosis moderate Atrial fibrillation (HCC) 04/21/2023 Basal cell carcinoma Cataracts, bilateral s/p removal Chronic kidney disease (CKD), stage III (moderate) (HCC) Chronic urticaria seeing Dr. Card Concussion 05/2015 fell off step stool COVID-19 GERD (gastroesophageal reflux disease) with esophagitis on EGD Glaucoma Hamstring strain bilateral legs Heart murmur History of shingles 2015 Hyperlipidemia Hypertension Insomnia Macular degeneration Melanoma (HCC) Mitral regurgitation Dr. Ibarra Post herpetic neuralgia lidocaine patch Premature contractions, atrial PUD (peptic ulcer disease) 01/2023 Renal cysts, acquired, bilateral Previous Surgical History PAST SURGICAL HISTORY Procedure [...] on File Prior to Visit Medication Sig atorvastatin (LIPITOR) 20 mg tablet Take 1 tablet by mouth once daily. famotidine (PEPCID) 40 mg tablet Take 1 tablet by mouth two times a day. apixaban (ELIQUIS) 5 mg tab(s) Take 5 mg by mouth two times a day. potassium chloride 20 mEq TbER Take 20 mEq by mouth once daily. furosemide (LASIX) 40 mg tablet Take 40 mg by mouth once daily. dilTIAZem CD (CARDIZEM CD, CARTIA XT) 120 mg 24 hr capsule Take 1 capsule by mouth once daily. lidocaine (LIDODERM) 5 % Apply 1 Patch as directed every 12 hours. latanoprost (XALATAN) 0.005 % ophthalmic solution Use 1 Drop in both eyes once daily. vit C,F-Dy-bydcn-lutein-zeaxan (PRESERVISION AREDS-2) 250-90-40-1 mg Take 1 tablet by mouth twice daily at 6AM and 9PM. BIOTIN ORAL Take 5,000 mg by mouth once daily. Cholecalciferol, Vitamin D3, 25 mcg (1,000 unit) cap Take 1,000 Units by mouth once daily. CYANOCOBALAMIN, VITAMIN B-12, (VITAMIN B-12 ORAL) Take 1,000 mg by mouth once daily. losartan (COZAAR) 50 mg tablet Take 1 [...] Social History Tobacco Use Smoking status: Former Current packs/day: 0.00 Average packs/day: 0.5 packs/day for 10.0 years (5.0 ttl pk-yrs) Types: Cigarettes Start date: 05/03/1978 Quit date: 05/03/1988 Years since quittin.9 Smokeless tobacco: Never Substance Use Topics Alcohol use: No D (more content not included)...[facility]12-04-2024 History of Present illness Narrative* Tony Soares MD - 04/05/2024 8:07 AM EST Chief Complaint Patient presents with: memory concerns Hallucinations HPI Jil Díaz is a 83 year old female who presents here today for Above Complaints. Patient accompanied today by son and daughter in law who are helping to provide her history. Family reports that about 2 weeks ago patient had sudden change in memory. They report that she wasin the car and thought that there was a child in the car when there was none and this persisted most of the day. There have been other times where she has thought [employer] was out to the home or that family worked for [employer]. Prior to this had some mild confusion and had to think about dates and names a big before she couldcome up with them. No recent change in medication. Did have a fall on thanksgiving without head injury or LOC, but this was after symptoms started. Denies fever/chills, dysuria, hematuria, frequency, urgency, abdominal pain, nausea, vomiting, diarrhea, wheezing, SOB, slurred speech, vision changes, numbness/tingling/weakness. Past medical history, appointments, medications, allergies reviewed. Previous Medical History PAST MEDICAL HISTORY Diagnosis Date Aortic stenosis moderate Atrial fibrillation (HCC) 04/21/2023 Basal cell carcinoma Cataracts, bilateral s/p removal Chronic kidney disease (CKD), stage III (moderate) (HCC) Chronic urticaria seeing Dr. Card Concussion 05/2015 fell off step stool COVID-19 GERD (gastroesophageal reflux disease) with esophagitis on EGD Glaucoma Hamstring strain bilateral legs Heart murmur History of shingles 2015 Hyperlipidemia Hypertension Insomnia Macular degeneration Melanoma (HCC) Mitral regurgitation Dr. Ibarra Post herpetic neuralgia lidocaine patch Premature contractions, atrial PUD (peptic ulcer disease) 01/2023 Renal cysts, acquired, bilateral Previous Surgical History PAST SURGICAL HISTORY Procedure [...] on File Prior to Visit Medication Sig atorvastatin (LIPITOR) 20 mg tablet Take 1 tablet by mouth once daily. famotidine (PEPCID) 40 mg tablet Take 1 tablet by mouth two times a day. apixaban (ELIQUIS) 5 mg tab(s) Take 5 mg by mouth two times a day. potassium chloride 20 mEq TbER Take 20 mEq by mouth once daily. furosemide (LASIX) 40 mg tablet Take 40 mg by mouth once daily. dilTIAZem CD (CARDIZEM CD, CARTIA XT) 120 mg 24 hr capsule Take 1 capsule by mouth once daily. lidocaine (LIDODERM) 5 % Apply 1 Patch as directed every 12 hours. latanoprost (XALATAN) 0.005 % ophthalmic solution Use 1 Drop in both eyes once daily. vit C,U-Pk-xftwj-lutein-zeaxan (PRESERVISION AREDS-2) 250-90-40-1 mg Take 1 tablet by mouth twice daily at 6AM and 9PM. BIOTIN ORAL Take 5,000 mg by mouth once daily. Cholecalciferol, Vitamin D3, 25 mcg (1,000 unit) cap Take 1,000 Units by mouth once daily. CYANOCOBALAMIN, VITAMIN B-12, (VITAMIN B-12 ORAL) Take 1,000 mg by mouth once daily. losartan (COZAAR) 50 mg tablet Take 1 [...] Social History Tobacco Use Smoking status: Former Current packs/day: 0.00 Average packs/day: 0.5 packs/day for 10.0 years (5.0 ttl pk-yrs) Types: Cigarettes Start date: 05/03/1978 Quit date: 05/03/1988 Years since quittin.9 Smokeless tobacco: Never Substance Use Topics Alcohol use: No Drug use: No Review of Symptoms REVIEW OF SYSTEMS See HPI EXAM: BP 126/64 Pulse 76 Resp 16 Wt 61.1 kg (134 lb 9.6 oz) SpO2 99% BMI 23.10 kg/m General Appearance: Patient appears confused. Seated upright in chair. Not participating in her ownhistory. Skin: Skin color, texture, turgor normal, no suspicious rashes or lesions. Head: Normocephalic, no masses, lesions, tenderness or abnormalities. Eyes: Anicteric sclera. Pupils are equally round and reactive to light. Extraocular movements are intact. . Lungs: Lungs clear to auscultation. No wheezing, rhonchi, rales.. Heart: RRR without murmur, gallop, or rubs. No ectopy. Abdomen: Abdomen soft. Bowel sounds normal. No masses, organomegaly, Positive findings: tenderness moderate suprapubic without guarding or rebound. Extremities: No deformities, edema, skin discoloration, clubbing or cyanosis. Good capillary refill. . Neurologic: Negative findings: speech normal, muscle tone normal, muscle strength normal, sensationto light touch and pinprick normal, reflexes normal and symmetric. Patient unable to follow directions when asked to follow my finger with her eyes. CN II-XII intact otherwise. Health Maintenance List Depression Screening Never done Anxiety Screening Never done Advance Directive Discussion Never done Influenza Vaccine(1) due on 01/02/2024 Covid-19 Vaccine( - 2023- season) due on 01/02/2024 Diabetes Screening due on 11/29/2026 DTaP,Tdap,Td Vaccine(4 - Td or Tdap) due on 11/18/2033 Bone Density Screening Completed RSV Vaccine Completed Shingrix Vaccine Completed Pneumococcal Vaccine: 65+ Completed Data reviewed Latest Ref Rng 04/05/2024 GLUCOSE UA (POCT) Negative mg/dL Negative BILIRUBIN UA (POCT) Negative Negative KETONE UA (POCT) Negative mg/dL Negative SPECIFIC GRAVITY UA (POCT) 1.005 - 1.030 1.020 HEMOGLOBIN/BLOOD UA (POCT) Negative Trace-intact ! PH UA (POCT) 4.5 - 8.0 6.0 PROTEIN UA (POCT) Negative mg/dL Negative UROBILINOGEN UA (POCT) Normal E.U./dL 1.0 NITRITE UA (POCT) Negative Negative LEUKOCYTES UA (POCT) Negative Small ! COLOR UA (POCT) Dark yellow CLARITY UA (POCT) Clear Legend: ! Abnormal MMSE: ASSESSMENT/PLAN: 1. Memory loss - ICD9: 780.93, ICD10: R41.3 (primary diagnosis) Patient with sudden onset of confusion. UA today abnormal and will send for culture. Start MacrobidBID x7 days. Recommending ER evaluation to rule out intracranial hemorrhage, electrolyte abnormality, encephalopathy, infectious process. Attempted to call ER, but got disconnected. Will fax this OV now. If workup negative in the ER and is discharged, home will obtain MRI brain for Lewy Body dementia. - UA DIP, URINE (POC) 2. Hallucinations - ICD9: 780.1, ICD10: R44.3 See above - UA DIP, URINE (POC) 3. Confusion - ICD9: 298.9, ICD10: R41.0 See above. - URINE CULTURE 4. Urinary frequency - ICD9: 788.41, ICD10: R35.0 See above. - NITROFURANTOIN MONOHYDRATE & MACROCRYSTAL 100 MG ORAL CAP I spent a total of 40 minutes on the date of the service which included preparing to see the patient, [id number] patient care, completing clinical documentation, obtaining and/or reviewing separately obtained history, performing a medically appropriate examination, counseling and educating the pat ient/family/caregiver, ordering medications, tests, or procedures, communicating with other HCPs (not separately reported), and independently interpreting results (not separately reported). Tony Soares MD documented [facility] Telephone encounter Note * Telephone Encounter - Meme Gant LPN - 04/04/2024 3:14 PM EST Rafi Ramirez called to get pt an apt. Pt has been having some memory issues and hallucinations. Apt booked with provider/team to evaluate. Meme Gant LPN [facility] Miscellaneous Notes* Telephone Encounter - Meme Gant LPN - 04/04/2024 3:14 PM EST Rafi Ramirez called to get pt an apt. Pt has been having some memory issues and hallucinations. Apt booked with provider/team to evaluate. Meme Gant LPN documented in this encounterOhio[facility]11-[facility] Evaluation note* Diagnosis Stage 3 chronic kidney disease, unspecified whether stage 3a or 3b CKD (HCC)- Primary documented in this encounter [facility]-26[facility] Telephone encounter Note* Telephone Encounter - Beatriz Isaac LPN - 01/27/2024 11:37 AM EDT Phoned patient and reviewed results and recommendations with her. Patient voiced understanding. Beatriz Isaac LPN [facility]-26-[facility] Miscellaneous Notes* Telephone Encounter - Beatriz Isaac LPN - 01/27/2024 11:37 AM EDT Phoned patient and reviewed results and recommendations with her. Patient voiced understanding. Beatriz Isaac LPN * Telephone Encounter - Beatriz Isaac LPN - 01/27/2024 11:36 AM EDT ----- Message from Tony Soares MD sent at 01/27/2024 8:37 AM EDT ----- Xray of the hips shows mild arthritis changes without fractures or dislocation. Lower back xray shows moderate to severe arthritis and degenerative disc disease as well as some scoliosis without fracture. Recommend she continue with treatment as discussed. If symptoms worsening, would obtain MRI ofher lower back for further workup. documented in this encounterOhio[facility]09-26-2024 Telephone encounter Note * Telephone Encounter - Beatriz Isaac LPN - 01/27/2024 11:36 AM EDT ----- Message from Tony Soares MD sent at 01/27/2024 8:37 AM EDT ----- Xray of the hips shows mild arthritis changes without fractures or dislocation. Lower back xray shows moderate to severe arthritis and degenerative disc disease as well as some scoliosis without fracture. Recommend she continue with treatment as discussed. If symptoms worsening, would obtain MRI ofher lower back for further workup. [facility] NoteIMPRESSION: LUMBAR DEGENERATIVE CHANGE AND SCOLIOSIS DESCRIBED. MILD PROGRESSION FROM PREVIOUS. MILD DEGENERATIVE CHANGE INVOLVING THE HIPS BILATERALLY. OSTEOPENIA Motel Maid: MAYITO Transcribe Date/Time: Jan 26 2024 4:12P Dictated by : MELLY HENNESSY MD This examination was interpreted and the report reviewed and electronically signed by: MELLY HENNESSY MD on Jan 26 2024 4:16PM EST DIVISION OF [id number] NoteIMPRESSION: LUMBAR DEGENERATIVE CHANGE AND SCOLIOSIS DESCRIBED. MILD PROGRESSION FROM PREVIOUS. MILD DEGENERATIVE CHANGE INVOLVING THE HIPS BILATERALLY. OSTEOPENIA Motel Maid: MAYITO Transcribe Date/Time: Jan 26 2024 4:12P Dictated by : MELLY HENNESSY MD This examination was interpreted and the report reviewed and electronically signed by: MELLY HENNESSY MD on Jan 26 2024 4:16PM EST DIVISION OF [id number] History of Present illness Narrative* John Ndaiye RT(R) - 01/26/2024 11:50 AM EDT Radiology Service Progress Note PATIENT NAME: Jil Díaz DATE OF SERVICE: January 26, 2024 TIME: 12:01 PM PATIENT IDENTITY VERIFICATION COMPLETED USING TWO (2) IDENTIFIERS: Name and Date of confirmedby patient verbally. FALL SCREENING: Has the patient had 2 falls in the last year or 1 fall with injury or currently using an Ambulatory Assistive Device (Walker, Cane, Wheelchair, Crutches, etc.)? No PATIENT GENDER DATA: Female. status: : No status: NO. PATIENT RELEVANT IMPLANT DATA REVIEWED: Yes PATIENT PRESENTS WITH AN IMPLANTABLE OR ATTACHED EMBALMER APPRENTICE: No RADIOLOGY DEPARTMENT: General X-ray: Exam(s) Completed: Spine X-Ray(s): Lumbar AP / LAT / L5-S1 Pelvis X-Ray: Pelvis with Hip Left PERIPHERAL IV DATA: Not applicable SIGNED BY: RENE Lovett) January 26, 2024 12:01 PM documented in this encounterOhio[facility]09-25-2024 NoteHNO ID: [id number] Author: JOHN NDIAYE RT(R) Service: Radiology Author Type: Technologist Type: Progress Notes Filed: 01/26/2024 12:22 Note Text: Radiology Service Progress Note PATIENT NAME: Jil Díaz DATE OF SERVICE: January 26, 2024 TIME: 12:01 PM PATIENT IDENTITY VERIFICATION COMPLETED USING TWO (2) IDENTIFIERS: Name and Date of confirmed by patient verbally. FALL SCREENING: Has the patient had 2 falls in the last year or 1 fall with injury or currently using an Ambulatory Assistive Device (Walker, Cane, Wheelchair, Crutches, etc.)? No PATIENT GENDER DATA: Female. status: : No status: NO. PATIENT RELEVANT IMPLANT DATA REVIEWED: Yes PATIENT PRESENTS WITH AN IMPLANTABLE OR ATTACHED EMBALMER APPRENTICE: No RADIOLOGY DEPARTMENT: General X-ray: Exam(s) Completed: Spine X-Ray(s): Lumbar AP / LAT / L5-S1 Pelvis X-Ray: Pelvis with Hip Left PERIPHERAL IV DATA: Not applicable SIGNED BY: John Ndiaye RT(R) January 26, 2024 12:01 [facility]09-25-2024 History of Present illness Narrative* Tony Soares MD - 01/26/2024 11:00 AM EDT Chief Complaint Patient presents with: Follow Up: ER follow up -hit head today c/o left hip pain HPI Jil Díaz is a 83 year old female who presents here today for ER Follow Up.. Patient evluated at [facility] ED on 01/01 for complaint of head injury on Eliquis. 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 Denied neck pain. Did have mild headache. Workup in the ER with CT brain was negative for hemorrhage or other acute process. Discharged home and recommended f/u with our office. Since discharge, patient has not had any recurrent falls and her headache has resolved. Denies painin her neck or back from the fall. Using cane for ambulation outside of her home or if unstable inside her home. Patient was referred to PT earlier this year for gait instability which she thinks did help and would be willing to return for more exercises and treatment. Also complaining of left hip pain which started in the last week without new fall or injury. Located over posterior hip and lower back with radiation to her mid thigh. Described intermittent dull pain, currently 6/10. Exacerbated with going from sitting to standing. Treating with heating pad and lidocaine with some improvement in symptoms.Denies fever/chills, bruising, erythema, swelling, new loss of bowel/bladder control, saddle anesthesia, LE weakness. Past medical history, appointments, medications, allergies reviewed. Previous Medical History PAST MEDICAL HISTORY Diagnosis Date Aortic stenosis moderate Atrial fibrillation (HCC) 04/21/2023 Basal cell carcinoma Cataracts, bilateral s/p removal Chronic kidney disease (CKD), stage III (moderate) (HCC) Chronic urticaria seeing Dr. Card Concussion 05/2015 fell off step stool COVID-19 GERD (gastroesophageal reflux disease) with esophagitis on EGD Glaucoma Hamstring strain bilateral legs Heart murmur History of shingles 2015 Hyperlipidemia Hypertension Insomnia Macular degeneration Melanoma (HCC) Mitral regurgitation Dr. Ibarra Post herpetic neuralgia lidocaine patch Premature contractions, atrial PUD (peptic ulcer disease) 01/2023 Renal cysts, acquired, bilateral Previous Surgical History PAST SURGICAL HISTORY Procedure [...] on File Prior to Visit Medication Sig atorvastatin (LIPITOR) 20 mg tablet Take 1 tablet by mouth once daily. famotidine (PEPCID) 40 mg tablet Take 1 tablet by mouth two times a day. apixaban (ELIQUIS) 5 mg tab(s) Take 5 mg by mouth two times a day. potassium chloride 20 mEq TbER Take 20 mEq by mouth once daily. furosemide (LASIX) 40 mg tablet Take 40 mg by mouth once daily. dilTIAZem CD (CARDIZEM CD, CARTIA XT) 120 mg 24 hr capsule Take 1 capsule by mouth once daily. losartan (COZAAR) 50 mg tablet Take 1 [...] Drop in both eyes once daily. vit C,A-Ov-netmc-lutein-zeaxan (PRESERVISION AREDS-2) 250-90-40-1 mg Take 1 tablet [...] Social History Tobacco Use Smoking status: Former Current packs/day: 0.00 Average packs/day: 0.5 packs/day for 10.0 years (5.0 ttl pk-yrs) Types: Cigarettes Start date: 05/03/1978 Quit date: 05/03/1988 Years since quittin.7 Smokeless tobacco: Never Substance Use Topics Alcohol use: No Drug use: No Review of Symptoms REVIEW OF SYSTEMS See HPI EXAM: BP 112/60 (BP Site: Left Arm, BP Position: Sitting, BP Cuff Size: Large Adult) Pulse 77 Resp 12 Ht 162.6 cm (5' 4) Wt 64 kg (141 lb) SpO2 95% BMI 24.20 kg/m General Appearance: Well appearing, alert, in no acute distress, well-hydrated, well nourished.. Skin: Skin color, texture, turgor normal, no suspicious rashes or lesions. Head: Normocephalic, no masses, lesions, tenderness or abnormalities. Back:no pain to palpation of vertebrae, good flexion and extension, good range of motion, reflexes are 2+ and symmetric, motor and sensory appear to be normal, negative SLR test, no evidence of scoliosis. Positive for TTP over left lumbar paraspinal muscles. Lungs: Lungs clear to auscultation. No wheezing, rhonchi, rales.. Heart: RRR without murmur, gallop, or rubs. No ectopy. HIP: Location: Left Redness: No. Warmth: No. Range of motion: WNL Tenderness over trochanteric bursa: NO Pain with movement: No. Health Maintenance List Depression Screening Never done Anxiety Screening Never done Advance Directive Discussion Never done Covid-19 Vaccine(4 - season) due on 01/02/2024 Influenza Vaccine(1) due on 01/02/2024 Diabetes Screening due on 11/29/2026 DTaP,Tdap,Td Vaccine(4 - Td or Tdap) due on 11/18/2033 Bone Density Screening Completed RSV Vaccine Completed Shingrix Vaccine Completed Pneumococcal Vaccine: 65+ Completed ASSESSMENT/PLAN: 1. Fall in home, subsequent encounter - ICD9: V58.89, E888.9, ICD10: W19.XXXD, Y92.009 (primary diagnosis) Patient lost balance and fell hitting her head gently on the wall. No hemorrhage on CT in the ER. Using cane for ambulation. Will refer to PT for gait instability. Red flags for re-assessment reviewed with patient in detail. - CONSULT TO PHYSICAL THERAPY 2. Injury of head, subsequent encounter - ICD9: V58.89, 959.01, ICD10: S09.90XD Normal exam today. 3. Headache, unspecified headache type - ICD9: 784.0, ICD10: R51.9 Resolved. 4. Left hip pain - ICD9: 719.45, ICD10: M25.552 Suspect 2/2 sciatica with possible arthritis component. Obtain imnaging as ordered and will treat with rest, ice/heat, OTC tylenol, lidocaine patches, and home exercises. Refer to PT if pain persistent. Red flags for re-assessment reviewed with patient in detail. - XR HIP GENERAL 3V PELV/AP/LAT LEFT - CONSULT TO PHYSICAL THERAPY 5. Acute left-sided low back pain with left-sided sciatica - ICD9: 724.2, 724.3, ICD10: M54.42 See above. - XR LUMBAR GENERAL 3V AP/LAT/L5-S1 - CONSULT TO PHYSICAL THERAPY Tony Soares MD documented in this encounterOhio[facility]09-25-2024 NoteHNO ID: [id number] Author: TONY SOARES MD Service: ? Author Type: Physician Type: Progress Notes Filed: 01/26/2024 13:23 Note Text: Chief Complaint Patient presents with: Follow Up: ER follow up -hit head today c/o left hip pain HPI Jil Díaz is a 83 year old female who presents here today for ER Follow Up.. Patient evluated at [facility] ED on 01/01 for complaint of head injury on Eliquis. 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 Denied neck pain. Did have mild headache. Workup in the ER with CT brain was negative for hemorrhage or other acute process. Discharged home and recommended f/u with our office. Since discharge, patient has not had any recurrent falls and her headache has resolved. Denies pain in her neck or back from the fall. Using cane for ambulation outside of her home or if unstable inside her home. Patient was referred to PT earlier this year for gait instability which she thinks did help and would be willing to return for more exercises and treatment. Also complaining of left hip pain which started in the last week without new fall or injury. Located over posterior hip and lower back with radiation to her mid thigh. Described intermittent dull pain, currently 6/10. Exacerbated with going from sitting to standing. Treating with heating pad and lidocaine with some improvement in symptoms.Denies fever/chills, bruising, erythema, swelling, new loss of bowel/bladder control, saddle anesthesia, LE weakness. Past medical history, appointments, medications, allergies reviewed. Previous Medical History PAST MEDICAL HISTORY Diagnosis Date Aortic stenosis moderate Atrial fibrillation (HCC) 04/21/2023 Basal cell carcinoma Cataracts, bilateral s/p removal Chronic kidney disease (CKD), stage III (moderate) (HCC) Chronic urticaria seeing Dr. Card Concussion 05/2015 fell off step stool COVID-19 GERD (gastroesophageal reflux disease) with esophagitis on EGD Glaucoma Hamstring strain bilateral legs Heart murmur History of shingles 2016 Hyperlipidemia Hypertension Insomnia Macular degeneration Melanoma (HCC) Mitral regurgitation Dr. Ibarra Post herpetic neuralgia lidocaine patch Premature contractions, atrial PUD (peptic ulcer disease) 01/2023 Renal cysts, acquired, bilateral Previous Surgical History PAST SURGICAL HISTORY Procedure [...] on File Prior to Visit Medication Sig atorvastatin (LIPITOR) 20 mg tablet Take 1 tablet by mouth once daily. famotidine (PEPCID) 40 mg tablet Take 1 tablet by mouth two times a day. apixaban (ELIQUIS) 5 mg tab(s) Take 5 mg by mouth two times a day. potassium chloride 20 mEq TbER Take 20 mEq by mouth once daily. furosemide (LASIX) 40 mg tablet Take 40 mg by mouth once daily. dilTIAZem CD (CARDIZEM CD, CARTIA XT) 120 mg 24 hr capsule Take 1 capsule by mouth once daily. losartan (COZAAR) 50 mg tablet Take 1 [...] Drop in both eyes once daily. vit C,J-Tq-tpnuh-lutein-zeaxan (PRESERVISION AREDS-2) 250-90-40-1 mg Take 1 tablet by mouth twice daily at 6AM and 9PM. BIOTIN ORAL Take 5,000 mg by mouth once daily. Cholecalciferol, Vitamin D3, 25 mcg (1,000 unit) cap Take 1,000 Units by mouth once daily. CYANOCOBALAMIN, VITAMIN B-12, (VITAMIN B-12 ORAL) Take 1,000 mg by mouth once daily. No current facility-administered medica (more content not included)...[facility]09-01-2024 Telephone encounter Note* Telephone Encounter - Noemy Hurtado RN - 01/02/2024 4:09 PM EDT Reason for Call: patient fell and hit her head; patient on Eliquis and was advised to go to ED for evaluation Outcome: Recommendation to follow PCP orders, patient verbalized understanding of recommendation, wanted phone number for estimated wait time [facility]09-01-2024 Miscellaneous Notes* Telephone Encounter - Noemy Hurtado RN - 01/02/2024 4:09 PM EDT Reason for Call: patient fell and hit her head; patient on Eliquis and was advised to go to ED for evaluation Outcome: Recommendation to follow PCP orders, patient verbalized understanding of recommendation, wanted phone number for estimated wait time documented in [facility] encounter[facility] Tele[facility] encounter Note * Telephone Encounter - Charmaine Bourgeois LPN - 12/08/2023 8:40 AM EDT Noted [facility]08-07-2024 Miscellaneous Notes* Telephone Encounter - Charmaine Bourgeois LPN - 12/08/2023 8:40 AM EDT Noted * Telephone Encounter - Tony Soares MD - 12/07/2023 5:15 PM EDT Reviewed. Call with new or worsening symptoms. * Telephone Encounter - Beatriz Isaac LPN - 12/07/2023 4:28 PM EDT Phoned patient and she reports legs are feeling better and doing better. She says they feel much better at night and she is keeping them elevated whenever she is at rest. Denied increased redness andswelling. Beatriz Isaac LPN * Telephone Encounter - Liv Dwyer RN - 12/02/2023 2:41 PM EDT Called and left a voicemail for the Patient to call back and ask for a nurse to receive the providers message. Liv Dwyer RN * Telephone Encounter - Tony Soares MD - 12/02/2023 7:13 AM EDT Are her legs more swollen along with having more pain? Is she taking anything OTC for pain now? Anyredness around her wound or fever? * Telephone Encounter - Antonella Og LPN - 12/01/2023 3:40 PM EDT Patient calling she said her legs are more painful today than when she was in the office yesterday.She does not know what to do to help that? She did have her compression stockings on but removed them to go to the grocery store. She said she tries to elevate her legs. Advised that she needs to keep the compression stockings on, and elevated her legs higher than her heart several times during theday. Please advise documented [facility] Telephone encounter Note * Telephone Encounter - Tony Soares MD - 12/07/2023 5:15 PM EDT Reviewed. Call with new or worsening symptoms. [facility] Telephone encounter Note* Telephone Encounter - Beatriz Isaac LPN - 12/07/2023 4:28 PM EDT Phoned patient and she reports legs are feeling better and doing better. She says they feel much better at night and she is keeping them elevated whenever she is at rest. Denied increased redness andswelling. Beatriz Isaac LPN [facility]08-01-2024 Telephone encounter Note* Telephone Encounter - Liv Dwyer, RN - 12/02/2023 2:41 PM EDT Called and left a voicemail for the Patient to call back and ask for a nurse to receive the providers message. Liv Dwyer, RN [facility]08-01-2024 Telephone encounter Note* Telephone Encounter - Tony Soares MD - 12/02/2023 7:13 AM EDT Are her legs more swollen along with having more pain? Is she taking anything OTC for pain now? Anyredness around her wound or fever? [facility] Telephone encounter Note* Telephone Encounter - Antonella Og LPN - 12/01/2023 3:40 PM EDT Patient calling she said her legs are more painful today than when she was in the office yesterday.She does not know what to do to help that? She did have her compression stockings on but removed them to go to the grocery store. She said she tries to elevate her legs. Advised that she needs to keep the compression stockings on, and elevated her legs higher than her heart several times during theday. Please advise [facility]07-30-2024 Telephone encounter Note* Telephone Encounter - Tony Soares MD - 11/30/2023 3:53 PM EDT Ordered. [facility] Miscellaneous Notes* Telephone Encounter - Tony Soares MD - 11/30/2023 3:53 PM EDT Ordered. * Telephone Encounter - Meme Gnat LPN - 11/30/2023 3:52 PM EDT Spoke with pt and information listed below given. Pt verbalizes understanding. Please put in lab for 1 month. Meme Gant LPN * Telephone Encounter - Tony Soares MD - 11/30/2023 3:37 PM EDT Stat labs negative for signs of infection with leg swelling. I dont see a need to put her on abx atthis time. Continue anticoagulation, leg elevation, and compression stockings as discussed today. CKD remains in stage III, but has worsened compared to last check. Recommend low sodium diet <2,000 mg per day, avoidance of NSAIDs, and increased water intake. Recheck in 1 month. documented in this encounterOhio[facility]07-30-2024 Telephone encounter Note * Telephone Encounter - Meme Gant LPN - 11/30/2023 3:52 PM EDT Spoke with pt and information listed below given. Pt verbalizes understanding. Please put in lab for 1 month. Meme Gant LPN [facility]07-30-2024 Telephone encounter Note* Telephone Encounter - Tony Soares MD - 11/30/2023 3:37 PM EDT Stat labs negative for signs of infection with leg swelling. I dont see a need to put her on abx atthis time. Continue anticoagulation, leg elevation, and compression stockings as discussed today. CKD remains in stage III, but has worsened compared to last check. Recommend low sodium diet <2,000 mg per day, avoidance of NSAIDs, and increased water intake. Recheck in 1 month. 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 CHANDRA Jil Díaz is a 83 year old female who presents here today for Above Complaints.. Patient evaluated in the ER on 11/27 after she leaned forward and bumped hear head on the wall. Asymptomatic initially, but developed dizziness after the injury. Workup in the ER negative with CT brain without signs of acute injury or hemorrhage. Dizziness resolved spontaneously. Discharged home with recommendation to follow up with our office without change to regimen. Patient states that she has not had any new fall or injury since discharge. Denies new fall, head injury, dizziness, headache, vision changes, nausea, vomiting. Patient also notes that she caught her left calhoun on a car door about 10 days ago which caused laceration. Cleaned her wound with soap and water and has been applying OTC abx ointment daily. About 2-3days ago, developed swelling of her left lower leg below the wound with TTP. Admits to warmth to touch yesterday. Denies fever/chills, erythema, bruising, purulent drainage, bleeding, chest pain, SOB, palpitations. Swelling, warmth and pain are better today than yesterday. Has compression stockings, but has not been compliant with use. . Past medical history, appointments, medications, allergies reviewed. Previous Medical History PAST MEDICAL HISTORY Diagnosis Date Aortic stenosis moderate Atrial fibrillation (HCC) 04/21/2023 Basal cell carcinoma Cataracts, bilateral s/p removal Chronic urticaria seeing Dr. Card Concussion 05/2015 fell off step stool COVID-19 GERD (gastroesophageal reflux disease) with esophagitis on EGD Glaucoma Hamstring strain bilateral legs Heart murmur History of shingles 2015 Hyperlipidemia Hypertension Insomnia Macular degeneration Melanoma (HCC) Mitral regurgitation Dr. Ibarra Post herpetic neuralgia lidocaine patch Premature contractions, atrial PUD (peptic ulcer disease) 01/2023 Renal cysts, acquired, bilateral Previous Surgical History PAST SURGICAL HISTORY Procedure [...] on File Prior to Visit Medication Sig atorvastatin (LIPITOR) 20 mg tablet Take 1 tablet by mouth once daily. famotidine (PEPCID) 40 mg tablet Take 1 tablet by mouth two times a day. apixaban (ELIQUIS) 5 mg tab(s) Take 5 mg by mouth two times a day. potassium chloride 20 mEq TbER Take 20 mEq by mouth once daily. furosemide (LASIX) 40 mg tablet Take 40 mg by mouth once daily. dilTIAZem CD (CARDIZEM [...] Drop in both eyes once daily. vit C,K-Lh-meoej-lutein-zeaxan (PRESERVISION AREDS-2) 250-90-40-1 mg Take 1 tablet by mouth twice daily at 6AM and 9PM. BIOTIN ORAL Take 5,000 mg by mouth once daily. Cholecalciferol, Vitamin D3, 25 mcg (1,000 unit) cap Take 1,000 Units by mouth once daily. CYANOCOBALAMIN, VITAMIN B-12, (VITAMIN B-12 ORAL) Take 1,000 mg by mouth once daily. losartan (COZAAR) 50 mg tablet Take 1 tablet by mouth once daily. gabapentin (NEURONTIN) 300 [...] REVIEW OF SYSTEMS See HPI EXAM: BP 130/66 Pulse 65 Temp 36.8 C (98.3 F) Resp 16 Wt 65.4 kg (144 lb 3.2 oz) SpO2 97% BMI24.75 kg/m General Appearance: Well appearing, alert, in no acute distress, well-hydrated, well nourished.. Skin: well healing 2-3 cm laceration of left proximal calhoun without bleeding, bruising, or drainage. Head: Normocephalic, no masses, lesions, tenderness or abnormalities. Lungs: Lungs clear to auscultation. No wheezing, rhonchi, rales.. Heart: RRR with 2/6 YUDELKA. Extremities: Edema: 1+ edema of left lower leg to proximal 1/3 calhoun with TTP without erythema or warmth to touch. . Health Maintenance List Depression Screening Never done Anxiety Screening Never done Advance Directive Discussion Never done Covid-19 Vaccine(4 - season) due on 02/09/2024 Influenza Vaccine(1) due on 01/02/2024 Diabetes Screening due on 09/12/2026 DTaP,Tdap,Td Vaccine(4 - Td or Tdap) due on 11/18/2033 Bone Density Screening Completed RSV Vaccine Completed Shingrix Vaccine Completed Pneumococcal Vaccine: 65+ Completed ASSESSMENT/PLAN: 1. Injury of head, subsequent encounter - ICD9: V58.89, 959.01, ICD10: S09.90XD (primary diagnosis) Low velocity injury with normal CT brain in the ER. Exam today is normal. Discussed ER evaluation in the future with falls. If she is bending over and bumps her head lightly on something, she does not need to go to the ER. Can call our office if she is not sure what to do. Red flags for re-assessment reviewed with patient in detail. 2. Laceration of left lower extremity, initial encounter - ICD9: 894.0, ICD10: S81.812A Healing well without signs of infection. With leg swelling, will obtain labs today to confirm no infection and call with results. 3. Pain and swelling of lower leg, left - ICD9: 729.5, 729.81, ICD10: M79.662, M79.89 Likely 2/2 injury. She has been compliant with anticoagulation, so I doubt DVT. Up to date on Tetanus booster. Will have her keep leg elevated when resting and wear compression stockings daily. I spent a total of 30 minutes on the date of the service which included preparing to see the patient, [id number] patient care, completing clinical documentation, obtaining and/or reviewing separately obtained history, performing a medically appropriate examination, counseling and educating the pat ient/family/caregiver, and ordering medications, tests, or procedures. Tony Soares MD documented in this encounterOhio[facility]07-[facility]-2024 Telephone encounter Note * Telephone Encounter - Liv Dwyer RN - 11/27/2023 8:44 AM EDT Pt called in and reports she had a lump on her head from hitting the wall. Pt states she didn't hitthe wall, but I don't know how she got a lump otherwise and said it was from the non-wood part of the wall. Pt has A-fib and is on Eliquis and wanted to know if she could come in for a CT of her head. I let her know we are not open on the weekend and she needs to have someone drive her to the ER. Pt will be going to [facility] ER. [facility]07-27-[facility]24 Miscellaneous Notes* Telephone Encounter - Liv Dwyer RN - 11/27/2023 8:44 AM EDT Pt called in and reports she had a lump on her head from hitting the wall. Pt states she didn't hitthe wall, but I don't know how she got a lump otherwise and said it was from the non-wood part of the wall. Pt has A-fib and is on Eliquis and wanted to know if she could come in for a CT of her head. I let her know we are not open on the weekend and she needs to have someone drive her to the ER. Pt will be going to [facility] ER. documented in this encounterOhio[facility]06-14-2024 Instructions* Patient Instructions* Kandi Kam APRN.BODY HANGER - 10/15/2023 1:47 PM EDT 1) Keep covered until scab appears 2) Follow up in March with Dr. Soares documented in this encounterOhiohealth [facility]06-14-2024 History of Present illness Narrative* Kandi Kam APRN.CNS - 10/15/2023 1:40 PM EDT This is a 83 year old female who presents today with: Patient presents with: Wound Check: 1 week, left forearm HISTORY OF PRESENT ILLNESS: Jil Díaz is a 83 year old female. Patient presents with: Wound Check: 1 week, left forearm Left forearm with a skin tear. Had a band- aid that she put over a bruise 10 days ago. When she took the band aid off, her skin cam, too. Bandage removed to assess. No pain. No drainage. No fever or chills. Wanted someone to look at it to make sure she doesn't need an antibiotic. PAST MEDICAL HISTORY: PAST MEDICAL HISTORY Diagnosis Date Aortic stenosis moderate Atrial fibrillation (HCC) 04/21/2023 Basal cell carcinoma Cataracts, bilateral s/p removal Chronic urticaria seeing Dr. Card Concussion 05/2015 fell off step stool COVID-19 GERD (gastroesophageal reflux disease) with esophagitis on EGD Glaucoma Hamstring strain bilateral legs Heart murmur History of shingles 2015 Hyperlipidemia Hypertension Insomnia Macular degeneration Melanoma (HCC) Mitral regurgitation Dr. Ibarra Post herpetic neuralgia lidocaine patch Premature contractions, atrial PUD (peptic ulcer disease) 01/2023 Renal cysts, acquired, bilateral PAST SURGICAL HISTORY Procedure Laterality Date APPENDECTOMY [...] RMVL TUBE OVARY 1972 ALLERGIES Oxycodone MEDICATIONS Current Outpatient Medications Medication Sig atorvastatin (LIPITOR) 20 mg tablet Take 1 tablet by mouth once daily. famotidine (PEPCID) 40 mg tablet Take 1 tablet by mouth two times a day. apixaban (ELIQUIS) 5 mg tab(s) Take 5 mg by mouth two times a day. potassium chloride 20 mEq TbER Take 20 mEq by mouth once daily. furosemide (LASIX) 40 mg tablet Take 40 mg by mouth once daily. dilTIAZem CD (CARDIZEM CD, CARTIA XT) 120 mg 24 hr capsule Take 1 capsule by mouth once daily. losartan (COZAAR) 50 mg tablet Take 1 [...] Drop in both eyes once daily. vit C,K-Qv-wvfyi-lutein-zeaxan (PRESERVISION AREDS-2) 250-90-40-1 mg Take 1 tablet by mouth twice daily at 6AM and 9PM. BIOTIN ORAL Take 5,000 mg by mouth once daily. Cholecalciferol, Vitamin D3, 25 mcg (1,000 unit) cap Take 1,000 Units by mouth once daily. CYANOCOBALAMIN, VITAMIN B-12, (VITAMIN B-12 ORAL) Take 1,000 mg by mouth once daily. No current facility-administered medications for this visit. FAMILY HISTORY Problem Relation Age of Onset Hypertension Mother Hypertension Father Cancer Father pancreatic Social History Tobacco Use Smoking status: Former Packs/day: 0.50 Years: 10.00 Additional pack years: 0.00 Total pack years: 5.00 Types: Cigarettes Quit date: 05/03/1988 Years since quittin.4 Smokeless tobacco: Never Substance Use Topics Alcohol use: No Drug use: No EXAM: BP 128/74 Pulse 93 Resp 16 Wt 63.5 kg (140 lb) SpO2 95% BMI 24.03 kg/m PHYSICAL EXAM: Physical Exam Vitals reviewed. Constitutional: Appearance: Normal appearance. Skin: General: Skin is warm and dry. Coloration: Skin is not jaundiced. Findings: Bruising and lesion present. No rash. Comments: Left forearm 2 inches X 3 inches skin tear. Saline used to loosen dressing. Still caused some minimal red bleeding. No drainage. Trying to granulate. Neurological: Mental Status: She is alert. LABS: ASSESSMENT/PLAN: 1. Skin tear of left forearm without complication, initial encounter - ICD9: 881.00, ICD10: S51.812A Clean - Non-stick dressing and devin applied Discussed treatment plan and patient voices understanding. Patient's questions answered appropriately. Medications and potential side effects were discussed and patient voices understanding. Return to the office as scheduled or as needed for worsening/no improvement. Kandi Kam APRN.BODY HANGER documented in this encounterOhiohealth [facility] Hospital06-14-2024 Telephone encounter Note * Telephone Encounter - Giovanna Live RN - 10/15/2023 11:33 AM EDT Pt calling in stating she has an area right above her wrist on her left arm that she wants someone to look at. She had a bandaid on it and when she took it off it sounds like she had a skin tear withit. She states her arms look bad-anything she touches bruises or gets a sore. She says she has beendoctoring the area for several days. She states she will feel better if someone looks at it. She h as it covered with gauze. Offered several appts today but pt states she is at the [facility] and won't get done til after 1 pm. Booked for an appt with Malissa Kam at 2 pm. [facility] Miscellaneous Notes* Telephone Encounter - Giovanna Live RN - 10/15/2023 11:33 AM EDT Pt calling in stating she has an area right above her wrist on her left arm that she wants someone to look at. She had a bandaid on it and when she took it off it sounds like she had a skin tear withit. She states her arms look bad-anything she touches bruises or gets a sore. She says she has beendoctoring the area for several days. She states she will feel better if someone looks at it. She h as it covered with gauze. Offered several appts today but pt states she is at the [facility] par[facility] and won't get done til after 1 pm. Booked for an appt with Malissa Kam at 2 pm. documented in this encounterOhiohealth [facility] Hospital05-21-2024 History of Present illness Narrative* Odette Harvey, PT - 09/21/2023 2:07 PM EDT Episode Visit Count: 6 Therapist That Will Accept/Oversee The Plan Of Care: Odette Harvey Start of Care Date: 08/17/23 Onset Date: 06/30/23 Plan of Care Certification Date: 09/21/23 Next Certification Due Date: 10/26/23 RE[facility]ABILITATION AND SPORTS THERAPY PHYSICAL THERAPY PROGRESS REPORT PLAN OF CARE UPDATE: Assessment: Jil Díaz demonstrates improvements in walking in the community and stair negotiation. She hasprogressed toward goals. Patient continues to present with impairments in ADL's, balance, gait, independence in exercise, joint mobility, overall function, and patient reported outcome measures that interfere with walking . Current prognosis is Good due to: Prognosis may be limited due to, good support system/ coping skills, within-session changes, acuteness of condition, good overall health status, current objective clinical presentation advanced age, chronic nature of impairments . She will benefit from continued skilled therapy services to meet the updated goals for this plan of care as not ed below. Goals for Episode of Care: created on 08/17/23 through 09/28/23 Goals updated on 09/21/2023 through 10/26/23 Patient will report no falls. -- MET Improve score on Timed Up and Go Test to <11 seconds to reflect decreased fall risk. -- MET Improve score on 30 Second Chair Stand to 10 or more repetitions to reflect decreased fall risk. -- PROGRESSING Ascending and descend x 4 6 steps with x1 HR with reciprocal pattern. -- PROGRESSING, successful 2nd trial Patient Goals: reduce difficulty with negociating stairs -- PROGRESSING Patient Goals: reduce difficulty with negociating stairs Planned Interventions, Frequency, and Duration: 2x/week, 5 weeks Total Number of Visits Planned: 10 Patient to be seen for Gait Training (38064), Self-shelter management (81004), Therapeutic activities (59542), Manual therapy (92077), Neuromuscular re- education (60972), Therapeutic exercise (86533) PLAN FOR NEXT VISIT: continue to work on balance SUBJECTIVE: Pt. reports having no dizziness and she doesn't think she needs her SC, but she feels safer using it. 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 Patient Goals: reduce difficulty with negociating stairs Functional Limitations: walking Pain: Pain Pain Level: 0 Post Treatment Pain Post Treatment Pain Level: 0 PROMIS Scales 08/17/2023 Higher is Better Phys Func - Score 53 (within normal limits) Phys Func - Percentile 62 Self-Eff Symptom - Score 55 (Average) Self-Eff Symptom - Percentile 69 T-scores: mean of general population = 50. 5 points is clinically meaningfully difference Percentiles provide an indication of how the patient's score ranks in relation to the general population. Higher percentile rankings indicate better function/quality of life. 50th percentile is the average of the general population and indicates half of respondents had a worse score. OBJECTIVE MEASURES WITH LEVEL OF FUNCTION: Functional Performance Test Results 30 Second Chair Stand Test: 9 reps Timed Up and Go (sec): 12 sec Timed Up and Go - Condition 2 (sec) : 11 (without SC) TREATMENT: Therapeutic Exercise: 1: 30 sec sit <> stand test Skilled Intervention: Patient was educated in proper exercise technique and purpose for exercises. Skilled judgment was used in selection of appropriate interventions. Correct performance of therapeutic exercises was facilitated with verbal, visual, and tactile cuing. Educated patient on rationale for performing exercises in regards to decreasing fatigue , increase ease of ADL, and ROM and function . Patient education as noted. Neuromuscular Re-Education: 1: TUG 2x once with cane and once without 2: side stepping with SC 20' 6x 3: reverse amb x 20' 6x using Sc Skilled Intervention: Skilled judgment used to assess appropriate program for balance and coordination activity. Education in proprioceptive/kinesthetic awareness during standing and dynamic activities. Ensured patient safety with use of SC and gait belt. Reviewed and educated patient on additions/changes for home program as noted above with an (*). Patient education as noted. Gait Training: Distance (feet): 200 with SC and 200 without Assistive Device: SC Assist Level: SBA, verbal cues for heel strike and toe push off Stair Training: ascending and descending x 4 6 steps with x1 HR ascending and descending with reciprocal pattern. LOB with PT assist first trial of descending, successful 2nd trial Skilled Intervention: Patient was provided minimal assistance during pre- gait/gait training to prevent falls and insure safety. Education provided to patient regarding the proper sequence for stair negotiation. Reviewed and educated patient on additions/changes for home program as noted above with an (*). Self-Chcf Management: 1: dsicussed cont use of SC to reduce fall risk Skilled Intervention: Skilled judgment in the selection of proper modification for activity of daily living/home management based on clinical presentation, deficits, and needs. Reviewed patient specific diagnosis in relation to activities of daily living/home management. Activity progression based on professional judgement. Reviewed and educated patient on additions/changes for home program as noted above with an (*). Billing Therapeutic Exercise Treatment Minutes: 1 Neuromuscular Re-Education Treatment Minutes: 25 Self-Care/Home Management Treatment Minutes: 2 Gait Training Treatment Minutes: 12 Skilled Treatment Time Minutes (timed and untimed codes): 40 Total Session Time (minutes): 40 Session Start Time : 1407 Session Stop Time : 1447 Odette Harvey PT documented in this encounter[facility] Miscellaneous Notes* Telephone Encounter - Drea Colon APRN.CNP - 09/15/2023 1:14 PM EDT New prescription sent for Lipitor 20 mg. Drea Colon APRN.CNP * Telephone Encounter - Haley Riojas RN - 09/15/2023 1:05 PM EDT Patient returned call. Given message from provider's office. Patient willing to increase Lipitor dose to 20 mg daily. [facility]. Haley Riojas RN * Telephone Encounter - Elizabeth Alatorre MA - 09/15/2023 12:56 PM EDT Left message for patient to contact office. Elizabeth Alatorre MA * Telephone Encounter - Tony Soares MD - 09/15/2023 11:30 AM EDT Stable CKD in stage III range. Recommend low sodium diet <2,000 mg per day, avoidance of NSAIDs,and increased water intake. Cholesterol level is high compared to last check. Recommend increasing lipitor to 20 mg daily with recheck at future OV. If agreeable, will send rx to requested pharmacy. documented in this encounterOhio[facility]05-15-[facility]24 Telephone encounter Note * Telephone Encounter - Drea Colon APRN.CNP - 09/15/2023 1:14 PM EDT New prescription sent for Lipitor 20 mg. Drea Colon APRN.[facility] Telephone encounter Note* Telephone Encounter - Haley Riojas RN - 09/15/2023 1:05 PM EDT Patient returned call. Given message from provider's office. Patient willing to increase Lipitor dose to 20 mg daily. [facility]. Haley Riojas RN [facility] Telephone encounter Note* Telephone Encounter - Elizabeth Alatorre MA - 09/15/2023 12:56 PM EDT Left message for patient to contact office. Elizabeth Alatorre MA [facility]-15-[facility] Telephone encounter Note* Telephone Encounter - Tony Soares MD - 09/15/2023 11:30 AM EDT Stable CKD in stage III range. Recommend low sodium diet <2,000 mg per day, avoidance of NSAIDs,and increased water intake. Cholesterol level is high compared to last check. Recommend increasing lipitor to 20 mg daily with recheck at future OV. If agreeable, will send rx to requested pharmacy. [facility] History of Present illness Narrative* Tony Soares MD - 09/13/2023 2:21 PM EDT Chief Complaint Patient presents with: Follow Up: 6 months HPI Jil Díaz is a 83 year old female who presents here today for Above Complaints. Patient evaluated on 09/05 for left flank pain which is absent today. US completed today which did not show hydronephrosis or signs of obvious stone. Noted increased echogenicity consistent with kidneydisease. Due for CMP. Denies urinary symptoms. A fib: Managed by [facility] cardiology. Has f/u with their office in 1 week. Compliant with anticoagulation without bleeding symptoms. Does not check HR at home. Denies chest pain, SOB, palpitations, LE edema. BP in good range. At home, typically <130/70 on current regimen without side effects. Gabapentin daily working well for post herpetic neuralgia. Next appointment with Dr. Martinez in about 2 weeks. GERD controlled on famotidine. Reports she continues to have insomnia. Getting about 5-6 hours of sleep at night. Does not nap during the day. States she is not having pain or racing thoughts keeping her up. Has tried melatonin 10mg which helps occasionally. Does not want new rx today. Past medical history, appointments, medications, allergies reviewed. Previous Medical History PAST MEDICAL HISTORY Diagnosis Date Aortic stenosis moderate Atrial fibrillation (HCC) 04/21/2023 Basal cell carcinoma Cataracts, bilateral s/p removal [...] on File Prior to Visit Medication Sig apixaban (ELIQUIS) 5 mg tab(s) Take 5 mg by mouth two times a day. potassium chloride 20 mEq TbER Take 20 mEq by mouth once daily. furosemide (LASIX) 40 mg tablet Take 40 mg by mouth once daily. dilTIAZem CD (CARDIZEM CD, CARTIA XT) 120 mg 24 hr capsule Take 1 capsule by mouth once daily. pantoprazole DR (PROTONIX) 40 mg tablet Take 1 tablet by mouth daily before breakfast. Take on empty stomach, 1/2 hr before meal. atorvastatin (LIPITOR) 10 mg tablet Take 1 [...] Drop in both eyes once daily. vit C,A-Fz-pvume-lutein-zeaxan (PRESERVISION AREDS-2) 250-90-40-1 mg Take 1 tablet by mouth twice daily at 6AM and 9PM. BIOTIN ORAL Take 5,000 mg by mouth once daily. Cholecalciferol, Vitamin D3, 25 mcg (1,000 unit) cap Take 1,000 Units by mouth once daily. CYANOCOBALAMIN, VITAMIN B-12, (VITAMIN B-12 ORAL) Take 1,000 mg by mouth once daily. losartan (COZAAR) 50 mg tablet Take 1 tablet by mouth once daily. gabapentin (NEURONTIN) 300 [...] for lesions, rash, and itching EXAM: BP 122/70 Pulse 90 Resp 16 Wt 64.5 kg (142 lb 3.2 oz) SpO2 96% BMI 24.41 kg/m General Appearance: Well appearing, alert, in no acute distress, well-hydrated, well nourished.. Skin: Skin color, texture, turgor normal, no suspicious rashes or lesions. Lungs: Lungs clear to auscultation. No wheezing, rhonchi, rales.. Heart: RRR without murmur, gallop, or rubs. No ectopy. Abdomen: Normal abdominal exam, Abdomen soft, non-tender. Bowel sounds normal. No masses, organomegaly, Negative CVA tenderness. Extremities: No deformities, edema, skin discoloration, clubbing or cyanosis. Good capillary refill. . Health Maintenance List Advance Directive Discussion Never done Behavioral Health Screening Never done Covid-19 Vaccine( season) due on 02/09/2024 Influenza Vaccine(Season Ended) due on 01/02/2024 Diabetes Screening due on 02/23/2026 DTaP,Tdap,Td Vaccine(3 - Td or Tdap) due on 07/08/2031 Bone Density Screening Completed RSV Vaccine Completed Shingrix Vaccine Completed Pneumococcal Vaccine: 65+ Completed Data reviewed Latest Ref Rng 02/23/2023 09/03/2023 WBC 3.70 - 11.00 k/uL 5.81 RBC [...] Abs Lymph 1.00 - 4.00 k/uL 1.41 [place]% % 10.5 Abs [place] <0.87 k/uL 0.61 Eosin% % 0.9 Abs Eosin <0.46 k/uL 0.05 Baso% % 1.4 Abs Baso <0.11 k/uL 0.08 Immature Gran % % 0.2 IMMATURE GRANS (ABS) <0.10 k/uL <0.03 NRBC /100 WBC 0.0 Absolute nRBC <0.01 k/uL <0.01 DTYPE Auto Color Yellow Yellow Clarity Clear Clear Glucose, Urine Negative Negative Bilirubin, Urine Negative Negative Ketones, Urine Negative Negative Specific [place], Ur 1.005 - 1.030 1.011 Hemoglobin/Blood,Ur Negative Negative pH, Urine <8.5 6.0 Protein, Urine Negative Negative Urobilinogen 0.2-1.0 EU/dL 0.2 EU/dL Nitrites Negative Negative Leukest Negative Negative WBC, Urine 0-5 /HPF 0-5 /HPF RBC, Urine 0-2 /HPF 0-2 /HPF Bacteria Negative /HPF Negative Epithelial Cells /HPF Few Hyaline Cast 0 /LPF 4-10 /LPF ! Protein, Total 6.3 - 8.0 g/dL 6.4 Albumin 3.9 - 4.9 g/dL 4.0 Calcium 8.5 - 10.2 mg/dL 8.7 Bilirubin, Total 0.2 - 1.3 mg/dL 0.4 Alkaline Phosphatase 34 - 123 U/L 79 AST 13 - 35 U/L 16 ALT 7 - 38 U/L 17 Glucose 74 - 99 mg/dL 103 (H) BUN 7 - 21 mg/dL 12 Creatinine 0.58 - 0.96 mg/dL 0.96 Sodium 136 - 144 mmol/L 142 Potassium 3.7 - 5.1 mmol/L 4.0 Chloride 97 - 105 mmol/L 107 (H) CO2 22 - 30 mmol/L 25 Anion Gap 9 - 18 mmol/L 10 eGFR >=60 mL/min/1.73m 59 (L) Iron 41 - 186 ug/dL 52 TIBC 232 - 386 ug/dL 330 Transferrin Saturation 15.0 - 57.0 % 15.8 Ferritin 14.7 - 205.1 ng/mL 49.0 Culture <10,000 CFU/ml Normal urogenital dar Latest Ref Rng 09/01/2021 Total Cholesterol, Nonfasting <200 mg/dL 157 Triglycerides, Nonfasting <150 mg/dL 192 (H) HDL Cholesterol, Nonfasting >39 mg/dL 42 LDL Cholesterol, Nonfasting <100 mg/dL 77 Non HDL Cholesterol, Nonfasting <130 mg/dL 115 VLDL Cholesterol, Nonfasting <30 mg/dL 38 (H) Total Chol/HDL Ratio, Nonfasting <5.10 mg/dL 3.74 LDL/HDL Ratio, Nonfasting <2.54 mg/dL 1.83 Legend: (H) High (L) Low ! Abnormal US KIDNEY/BLADDER: 09/13/2023 IMPRESSION: 1. Mildly increased bilateral renal parenchymal echogenicity, a nonspecific finding which may be seen in setting of medical renal disease. Correlation with urinalysis and creatinine levels is requested. 3. Simple bilateral renal cysts. ASSESSMENT/PLAN: 1. Acute left flank pain - ICD9: 789.09, 338.19, ICD10: R10.9 (primary diagnosis) Resolved. US negative for signs of kidney stone. Suspect musculoskeletal etiology. Call if symptomsreturn. 2. Primary hypertension - ICD9: 401.9, ICD10: I10 - Controlled - Continue current medications - Recommend home blood pressure monitoring, to bring results to next visit - Encouraged sodium restriction, DASH or Mediterranean diet - Recommend regular aerobic exercise - COMPREHENSIVE METABOLIC PANEL 3. Atrial fibrillation, unspecified type (HCC) - ICD9: 427.31, ICD10: I48.91 Rate controlled. Continue current regimen per cardiology. 4. Hyperlipidemia, unspecified hyperlipidemia type - ICD9: 272.4, ICD10: E78.5 - Control undetermined, due for labs - Continue current medications - Counseled on healthy diet and regular exercise - LIPID PANEL, NONFASTING 5. Chronic kidney disease, stage 3a (HCC) - ICD9: 585.3, ICD10: N18.31 Recheck CMP. - Counseled on avoiding NSAIDs, adequate hydration - Counseled on low sodium diet 6. Renal cysts, acquired, bilateral - ICD9: 593.2, ICD10: N28.1 Benign appearing cysts. Will monitor renal function. 7. Pulmonary arterial hypertension (HCC) - ICD9: 416.8, ICD10: I27.21 Recommendations per cardiology. 8. Bilateral carotid artery disease, unspecified type (HCC) - ICD9: 447.9, ICD10: I77.9 Mild stenosis on US in 2020 which was stable compared to 2018. Patient not interested in repeat imaging at this time. 9. Primary insomnia - ICD9: 307.42, ICD10: F51.01 Refusing rx. Discussed sleep hygiene and OTC medication options. 10. Post herpetic neuralgia - ICD9: 053.19, ICD10: B02.29 Improved on gabapentin. Tony Soares MD documented in this encounterOhio[facility]05-13-[facility]24 History of Present illness Narrative* Odette Argueta RDMS - 09/13/2023 1:00 PM EDT Radiology Service Progress Note PATIENT NAME: Jil Díaz DATE OF SERVICE: September 13, 2023 TIME: 2:41 PM PATIENT IDENTITY VERIFICATION COMPLETED USING TWO (2) IDENTIFIERS: Name and Date of confirmedby patient verbally. FALL SCREENING: Has the patient had 2 falls in the last year or 1 fall with injury or currently using an Ambulatory Assistive Device (Walker, Cane, Wheelchair, Crutches, etc.)? No PATIENT GENDER DATA: Female. status: : No status: NO. PATIENT RELEVANT IMPLANT DATA REVIEWED: Not Applicable PATIENT PRESENTS WITH AN IMPLANTABLE OR ATTACHED EMBALMER APPRENTICE: No RADIOLOGY DEPARTMENT: Ultrasound PERIPHERAL IV DATA: Not applicable SIGNED BY: Odette Argueta RDMS RVT September 13, 2023 2:41 PM documented in this encounterOhio[facility]05-10-2024 History of Present illness Narrative* Odette Harvey, PT - 09/10/2023 1:48 PM EDT Episode Visit Count: 5 Therapist That Will Accept/Oversee The Plan Of Care: Odette Harvey Start of Care Date: 08/17/23 Onset Date: 06/30/23 Plan of Care Certification Date: 08/17/23 Next Certification Due Date: 09/21/23 REHABILITATION AND SPORTS THERAPY PHYSICAL THERAPY TREATMENT NOTE ASSESSMENT: Jil Díaz tolerated the session with increased symptoms. She demonstrated difficulty with balance stating that she feels off. Negative testing for BPPV with fixation present. VNG not used due to pt. Getting her hair done today right before visit. Pt. Reports feeling reduced symptoms after vestibular testing despite no CRM performed. Pt. Advised to use SC due to LOB with turning. The patient will continue to benefit from ongoing skilled physical therapy to progress toward set goals. PLAN FOR NEXT VISIT: PN pt. to discuss balance and dizziness concerns with Dr. Huang SUBJECTIVE: Pt. reports that she feels ok, but she doesn't feel right. Gets dizziness with bending over or sitting up quickly. She states that she has not told her Dr. She will see her Dr. on Wednesday. Pain: Pain Pain Level: 0 Post Treatment Pain Post Treatment Pain Level: 0 OBJECTIVE MEASURES WITH LEVEL OF FUNCTION: TREATMENT: Therapeutic Exercise: 1: SciFit seat 10, level 2, 1:1 throughout, subjective collected (pt. felt bet) Skilled Intervention: Patient was educated in proper exercise technique and purpose for exercises. Skilled judgment was used in selection of appropriate interventions. Provided written instruction for home exercise program to facilitate proper performance and compliance. Correct performance of therapeutic exercises was facilitated with verbal, visual, and tactile cuing. Educated patient on rationale for performing exercises in regards to decreasing fatigue , includingbalance, and increase ease of ADL. Patient education as noted. Neuromuscular Re-Education: 1: R and L kiet hallpike test - negative 2: R and L ear down 3: side stepping with SC 40' 6x each direction 4: turning 360 degrees with SC 5x R and 5x L 5: amc 50' and turning alt R and L turns 6x 6: reverse ambulation 50' 4x Skilled Intervention: Skilled judgment used to assess appropriate program for balance and coordination activity. Education in proprioceptive/kinesthetic awareness during dynamic activities. Ensured patient safety with use of gait belt and SC. Patient education as noted. Self-Chcf Management: 1: advised that pt. conitnues to use cane 2: advised pt. to idscuss feeling off and dizzinss concerns with Dr. Cid 3: discussed possible BPPV Skilled Intervention: Skilled judgment in the selection of proper modification for activity of daily living/home management based on clinical presentation, deficits, and needs. Reviewed patient specific diagnosis in relation to activities of daily living/home management. Activity progression based on professional judgement. Correct performance of home program was facilitated with verbal, visual, and tactile cueing. Billing Therapeutic Exercise Treatment Minutes: 5 Neuromuscular Re-Education Treatment Minutes: 32 Self-Care/Home Management Treatment Minutes: 5 Skilled Treatment Time Minutes (timed and untimed codes): 42 Total Session Time (minutes): 42 Session Start Time : 1348 Session Stop Time : 1430 Odette Harvey PT documented in this encounterOhio[facility]05-08-2024 History of Present illness Narrative* Natalia Harveyica, PT - 09/08/2023 1:22 PM EDT Episode Visit Count: 4 Therapist That Will Accept/Oversee The Plan Of Care: Odette Harvey Start of Care Date: 08/17/23 Onset Date: 06/30/23 Plan of Care Certification Date: 08/17/23 Next Certification Due Date: 09/21/23 REHABILITATION AND SPORTS THERAPY PHYSICAL THERAPY TREATMENT NOTE ASSESSMENT: Jil Díaz tolerated the session with being more off balance than usual. She demonstrated difficulty with static standing on foam with the eyes open and normal stance requiring min tomodAx1 assistance to maintain her balance. The patient will continue to benefit from ongoing skilled physical therapy to progress toward set goals. PLAN FOR NEXT VISIT: SUBJECTIVE: Pt. arrives with SC. She feels more off balance than usual. Pain: OBJECTIVE MEASURES WITH LEVEL OF FUNCTION: TREATMENT: Therapeutic Exercise: 1: SciFIt seat 10, level 2, 1:1 throughout, subjective collected (pt. felt bet) Skilled Intervention: Patient was educated in proper exercise technique and purpose for exercises. Skilled judgment was used in selection of appropriate interventions. Correct performance of therapeutic exercises was facilitated with verbal, visual, and tactile cuing. Educated patient on rationale for performing exercises in regards to decreasing fatigue , includingbalance, increase ease of ADL, and ROM and function . Patient education as noted. Neuromuscular Re-Education: 1: stepping fwd over 6x6 hurdles with SC 2: stepping lateral over 6x6 hurdles 3: on foam in // bars froward and back weight shifting 30 sec 5x 4: on foam in // bars side to side weight shifting 30 sec 5x 5: romberg on foam 3x attempts for 30 sec EO 6: romberg on foam 3x attempts for 30 sec EC Skilled Intervention: Skilled judgment used to assess appropriate program for balance and coordination activity. Education in proprioceptive/kinesthetic awareness during standing. Ensured patient safety with use of standing and use of // bars. Self-Chcf Management: 1: advised pt. to use SC all day and in the house today due being more off balance 2: discussed hydration and advised keeping her phone near. Reocmmended considering getting a medical alert 3: discussed that being home sick can cause pt. to have physical symptoms. the mind and emotions can affect physical function 4: encouraged pt. to tell family that she is feeling off balance and to check in with them periodically so they are aware and ready to provide assistance if needed for anything Skilled Intervention: Skilled judgment in the selection of proper modification for activity of daily living/home management based on clinical presentation, deficits, and needs. Reviewed patient specific diagnosis in relation to activities of daily living/home management. Activity progression based on professional judgement. Moderate verbal cues for maintaining neutral spine alignment. Billing Therapeutic Exercise Treatment Minutes: 5 Neuromuscular Re-Education Treatment Minutes: 20 Self-Care/Home Management Treatment Minutes: 15 Skilled Treatment Time Minutes (timed and untimed codes): 40 Total Session Time (minutes): 40 Session Start Time : 1321 Session Stop Time : 1401 Odette Harvey PT documented in this encounterOhio[facility]05-06-[facility]24 History of Present illness Narrative* Tony Soares MD - 09/06/2023 4:02 PM EDT Chief Complaint Patient presents with: left flank pain HPI Jil Díaz is a 83 year old female who presents here today for Above Complaints. Patient states that she developed left flank pain 2 days ago while she was sitting in her car. Paincame on gradually. Described as constant aching/dull pain up to 5/10 without radiation. No exacerbating factors. May have been improved by pressing on the area. Did not take anything OTC for pain. Resolved overnight and has not been back since. Denies fall/injury, urinary symptoms, fever/chills, nausea, vomiting, diarrhea, constipation, abdominal pain. Past medical history, appointments, medications, allergies reviewed. Previous Medical History PAST MEDICAL HISTORY Diagnosis Date Aortic stenosis moderate Atrial fibrillation (HCC) 04/21/2023 Basal cell carcinoma Cataracts, bilateral s/p removal [...] on File Prior to Visit Medication Sig apixaban (ELIQUIS) 5 mg tab(s) Take 5 mg by mouth two times a day. potassium chloride 20 mEq TbER Take 20 mEq by mouth once daily. furosemide (LASIX) 40 mg tablet Take 40 mg by mouth once daily. dilTIAZem CD (CARDIZEM CD, CARTIA XT) 120 mg 24 hr capsule Take 1 capsule by mouth once daily. pantoprazole DR (PROTONIX) 40 mg tablet Take 1 tablet by mouth daily before breakfast. Take on empty stomach, 1/2 hr before meal. atorvastatin (LIPITOR) 10 mg tablet Take 1 [...] Drop in both eyes once daily. vit C,Q-Xt-eknrh-lutein-zeaxan (PRESERVISION AREDS-2) 250-90-40-1 mg Take 1 tablet by mouth twice daily at 6AM and 9PM. BIOTIN ORAL Take 5,000 mg by mouth once daily. Cholecalciferol, Vitamin D3, 25 mcg (1,000 unit) cap Take 1,000 Units by mouth once daily. CYANOCOBALAMIN, VITAMIN B-12, (VITAMIN B-12 ORAL) Take 1,000 mg by mouth once daily. losartan (COZAAR) 50 mg tablet Take 1 tablet by mouth once daily. gabapentin (NEURONTIN) 300 [...] REVIEW OF SYSTEMS See HPI EXAM: BP 136/70 Pulse 88 Temp 36.7 C (98 F) Resp 16 SpO2 96% General Appearance: Well appearing, alert, in no acute distress, well-hydrated, well nourished.. Skin: Skin color, texture, turgor normal, no suspicious rashes or lesions. Back:no pain to palpation of vertebrae, no muscle tenderness Abdomen: Normal abdominal exam, Abdomen soft, non-tender. Bowel sounds normal. No masses, organomegaly, Negative CVA tenderness. Health Maintenance List Advance Directive Discussion Never done Behavioral Health Screening Never done Covid-19 Vaccine( season) due on 02/09/2024 Influenza Vaccine(Season Ended) due on 01/02/2024 Diabetes Screening due on 02/23/2026 DTaP,Tdap,Td Vaccine(3 - Td or Tdap) due on 07/08/2031 Bone Density Screening Completed RSV Vaccine Completed Shingrix Vaccine Completed Pneumococcal Vaccine: 65+ Completed ASSESSMENT/PLAN: 1. Acute left flank pain - ICD9: 789.09, 338.19, ICD10: R10.9 Suspect musculoskeletal etiology which has resolved. Will check US to rule out kidney stone, but suspicion is low. Recommended pushing PO fluids and will have patient call if symptoms return. - US KIDNEY/BLADDER Tony Soares MD documented in this encounterOhio[facility]05-06-[facility]24 Telephone encounter Note * Telephone Encounter - Erica Gonzalez MA - 09/06/2023 10:46 AM EDT Pt notified. Erica Gonzalez MA [facility] Miscellaneous Notes* Telephone Encounter - Erica Gonzalez MA - 09/06/2023 10:46 AM EDT Pt notified. Erica Gonzalez MA * Telephone Encounter - Erica Gonzalez MA - 09/06/2023 10:44 AM EDT ----- Message from Tony Soares MD sent at 09/06/2023 8:07 AM EDT ----- UA and urine culture are negative for infection. documented in this encounterOhio[facility]05-06-2024 Telephone encounter Note * Telephone Encounter - Erica Gonzalez MA - 09/06/2023 10:44 AM EDT ----- Message from Tony Soares MD sent at 09/06/2023 8:07 AM EDT ----- UA and urine culture are negative for infection. [facility] History of Present illness Narrative* Odette Harvey, PT - 09/03/2023 1:39 PM EDT Episode Visit Count: 3 Therapist That Will Accept/Oversee The Plan Of Care: Odette Harvey Start of Care Date: 08/17/23 Onset Date: 06/30/23 Plan of Care Certification Date: 08/17/23 Next Certification Due Date: 09/21/23 REHABILITATION AND SPORTS THERAPY PHYSICAL THERAPY TREATMENT NOTE ASSESSMENT: Jil Díaz tolerated the session with decreased symptoms. She demonstrated difficulty with stepping forward over 6 hurdles requiring x1 UE support. She is able to complete side stepping on level surface without AD but requires cues to avoid looking at her BLE.. The patient will continue to benefit from ongoing skilled physical therapy . PLAN FOR NEXT VISIT: stepping fwd over 6 hurdles with SC or EMBROIDERY MACHINE OPERATOR SUBJECTIVE: Pt. was seen by the yesterday for dizziness. They determined it was sinus. Pain: Pain Pain Level: 0 OBJECTIVE MEASURES WITH LEVEL OF FUNCTION: TREATMENT: Therapeutic Exercise: 1: SciFIt seat 10, level 2, 1:1 throughout, subjective collected Skilled Intervention: Patient was educated in proper exercise technique and purpose for exercises. Skilled judgment was used in selection of appropriate interventions. Educated patient on rationale for performing exercises in regards to decreasing fatigue , includingbalance, increase ease of ADL, and ROM and function . Patient education as noted. Neuromuscular Re-Education: 1: side stepping 20' R and L 6 x each without UE support, cues to avoid looking at her feet 2: stepping over 6x6 hurdles 3x leading R and 3x leading L, LOB 2x requiring x1 UE support to negociate hurdles 3: static standing on foam regular stance x 1 min EC 4: lateral step over single 6 alyssia 2x10, no UE support but requires minAx1 to recover balance 2x, cues to take wide enought steps or adjust feet for placement/clearance. 5: romberg on foam EO x 1 min 6: marching in place on foam with x1 UE support 2x20 7: romberg on foam EC x 1 min, 2x 8: EC fwd and back weight shifting , normal stance on foam 30 sec 9: EC side to side weight shifting , normal stance on foam 30 sec Skilled Intervention: Skilled judgment used to assess appropriate program for balance and coordination activity. Education in proprioceptive/kinesthetic awareness during standing. Ensured patient safety with use of // bars. Reviewed and educated patient on additions/changes for home program as noted above with an (*). Patient education as noted. Billing Therapeutic Exercise Treatment Minutes: 5 Neuromuscular Re-Education Treatment Minutes: 35 Skilled Treatment Time Minutes (timed and untimed codes): 40 Total Session Time (minutes): 40 Session Start Time : 1330 Session Stop Time : 1410 Odette Harvey PT documented [facility] History of Present illness Narrative* Tony Soares MD - 09/02/2023 4:00 PM EDT Chief Complaint Patient presents with: Dizziness: Patient reports when she bends over she experiences dizziness. Started this last weekendand continued through yesterday. Patient reports she checked her BP and that was ok. Reports no dizziness today. Follow Up: Patient wants to check urine to see if UTI cleared up. ATB completed on Wednesday. HPI Jil Díaz is a 83 year old female who presents here today for Above Complaints.. Patient complaining of 4-5 days of intermittent fullness in her forehead when she bends over without vertigo or lightheadedness. Admits to nasal congestion, rhinorrhea with bloody mucous when blowingher nose, dry cough, sneezing. Gets allergy symptoms in the spring. Has taken OTC antihistamines inthe last 2 days which does improve her symptoms. Has not tried nasal steroid, but has flonase at home. Denies headache, fever/chills, sore throat, post nasal drip, SOB, wheezing, itchy/watery eyes. States that the bleeding from her nose is after she blows real hard in the morning and stops quickly with very small amount of blood. States that she had a UTI about 1 week ago which was treated with cipro. Finished the antibiotic onSaturday and her symptoms have resolved aside form occasional burning around her vagina after urinating. Would like UA checked. Admits to urgency. Denies frequency, hematuria, suprapubic pain, flank pain, nausea, vomiting. Past medical history, appointments, medications, allergies reviewed. Previous Medical History PAST MEDICAL HISTORY Diagnosis Date Aortic stenosis moderate Atrial fibrillation (HCC) 04/21/2023 Basal cell carcinoma Cataracts, bilateral s/p removal [...] on File Prior to Visit Medication Sig apixaban (ELIQUIS) 5 mg tab(s) Take 5 mg by mouth two times a day. potassium chloride 20 mEq TbER Take 20 mEq by mouth once daily. furosemide (LASIX) 40 mg tablet Take 40 mg by mouth once daily. dilTIAZem CD (CARDIZEM CD, CARTIA XT) 120 mg 24 hr capsule Take 1 capsule by mouth once daily. pantoprazole DR (PROTONIX) 40 mg tablet Take 1 tablet by mouth daily before breakfast. Take on empty stomach, 1/2 hr before meal. losartan (COZAAR) 50 mg tablet Take 1 tablet by mouth once daily. atorvastatin (LIPITOR) 10 [...] Drop in both eyes once daily. vit C,D-Jx-rzoxz-lutein-zeaxan (PRESERVISION AREDS-2) 250-90-40-1 mg Take 1 tablet [...] REVIEW OF SYSTEMS See HPI EXAM: BP 134/82 Pulse 77 Temp 37.2 C (98.9 F) Resp 16 Wt 62.3 kg (137 lb 6.4 oz) SpO2 95% BMI23.58 kg/m General Appearance: Well appearing, alert, in no acute distress, well-hydrated, well nourished.. Skin: Skin color, texture, turgor normal, no suspicious rashes or lesions. Head: Normocephalic, no masses, lesions, tenderness or abnormalities. Eyes: Anicteric sclera. Pupils are equally round and reactive to light. Extraocular movements are intact. . Ears: External ears normal, canals clear. Nose/Sinuses: Positive findings: Turbinates red and swollen with scabbing on right septum without active bleeding. Oropharynx: Lips, mucosa, and tongue normal, teeth and gums normal, oropharynx normal. Neck: Supple, no adenopathy; thyroid symmetric, normal size, no bruits. Lungs: Lungs clear to auscultation. No wheezing, rhonchi, rales.. Heart: Positive findings: irregularly irregular rhythm with 2/6 YUDELKA. Abdomen: Normal abdominal exam, Abdomen soft, non-tender. Bowel sounds normal. No masses, organomegaly. Health Maintenance List Advance Directive Discussion Never done Behavioral Health Screening Never done Covid-19 Vaccine() due on 02/09/2024 Influenza Vaccine(Season Ended) due on 01/02/2024 Diabetes Screening due on 02/23/2026 DTaP,Tdap,Td Vaccine(3 - Td or Tdap) due on 07/08/2031 Bone Density Screening Completed RSV Vaccine Completed Shingrix Vaccine Completed Pneumococcal Vaccine: 65+ Completed ASSESSMENT/PLAN: 1. Sinus pressure - ICD9: 478.19, ICD10: J34.89 (primary diagnosis) Suspect 2/2 allergies. Will have her treat with OTC antihistamines. Avoid nasal steroid flonase until epistaxis when blowing her nose stops. May use neti pot and nasal saline rinses at that time as well. Call with worsening symptoms or signs of infection. 2. Seasonal allergies - ICD9: 477.9, ICD10: J30.2 See above. 3. Epistaxis - ICD9: 784.7, ICD10: R04.0 Scant amount of bleeding with blowing her nose aggressively. Continue anticoagulation. Discussed avoidance of picking nose or blowing too hard. Red flags for re-assessment reviewed with patient in detail. 4. Dysuria - ICD9: 788.1, ICD10: R30.0 Unable to give urine in office. Will collect at the lab and call with results. Push PO fluids. Red flags for re-assessment reviewed with patient in detail. - UA DIP, URINE (POC) - URINALYSIS, WITH MICROSCOPIC - URINE CULTURE Tony Soares MD documented in this encounterOhio[facility]05-01-[facility]24 Telephone encounter Note * Telephone Encounter - Haley Riojas RN - 09/01/2023 3:32 PM EDT Patient calling for appointment with PCP. She says she has been having intermittent episodes of dizziness, only when she bends over that resolve when she stands up. This started 4 days ago. She says she has been drinking lots of fluid because she had a recent UTI. Denies any other symptoms. Reviewed triage protocol guidelines with patient. Disposition: See PCP within 3 days. Appointment scheduled. Haley Riojas RN Reason for Disposition [1] MILD dizziness (e.g., walking normally) AND [2] has NOT been evaluated by doctor (or MEDICAL AFFAIRS SPECIALIST/PA) forthis (Exception: Dizziness caused by heat exposure, sudden standing, or poor fluid intake.) Answer Assessment - Initial Assessment Questions 1. DESCRIPTION: intermittent dizziness when she bends over 2. LIGHTHEADED: at times when bending over 3. VERTIGO:Denies the room is spinning or tilting 4. SEVERITY: How bad is it? Do you feel like you are going to faint? Can you stand and walk? - MILD: Feels slightly dizzy, but walking normally. Resolves when she stands up 5. ONSET: about 4 days ago 6. AGGRAVATING FACTORS: bending over 7. HEART RATE: 8. CAUSE: Unknown 9. RECURRENT SYMPTOM: Never had in the past 10. OTHER SYMPTOMS: Denies any other symptoms 11. : N/A Protocols used: Dizziness - [id number] [facility] Miscellaneous Notes* Telephone Encounter - Haley Riojas RN - 09/01/2023 3:32 PM EDT Patient calling for appointment with PCP. She says she has been having intermittent episodes of dizziness, only when she bends over that resolve when she stands up. This started 4 days ago. She says she has been drinking lots of fluid because she had a recent UTI. Denies any other symptoms. Reviewed triage protocol guidelines with patient. Disposition: See PCP within 3 days. Appointment scheduled. Haley Riojas RN Reason for Disposition [1] MILD dizziness (e.g., walking normally) AND [2] has NOT been evaluated by doctor (or MEDICAL AFFAIRS SPECIALIST/PA) forthis (Exception: Dizziness caused by heat exposure, sudden standing, or poor fluid intake.) Answer Assessment - Initial Assessment Questions 1. DESCRIPTION: intermittent dizziness when she bends over 2. LIGHTHEADED: at times when bending over 3. VERTIGO:Denies the room is spinning or tilting 4. SEVERITY: How bad is it? Do you feel like you are going to faint? Can you stand and walk? - MILD: Feels slightly dizzy, but walking normally. Resolves when she stands up 5. ONSET: about 4 days ago 6. AGGRAVATING FACTORS: bending over 7. HEART RATE: 8. CAUSE: Unknown 9. RECURRENT SYMPTOM: Never had in the past 10. OTHER SYMPTOMS: Denies any other symptoms 11. : N/A Protocols used: Dizziness - [id number] documented in this encounterOhio[facility]05-01-2024 History of Present illness Narrative* Odette Harvey, PT - 09/01/2023 2:38 PM EDT Episode Visit Count: 2 Therapist That Will Accept/Oversee The Plan Of Care: Odette Harvey Start of Care Date: 08/17/23 Onset Date: 06/30/23 Plan of Care Certification Date: 08/17/23 Next Certification Due Date: 09/21/23 REHABILITATION AND SPORTS THERAPY PHYSICAL THERAPY TREATMENT NOTE ASSESSMENT: Jil Díaz tolerated the session with fatigue. She demonstrated difficulty with balance and step up exercises when instructed to not look at her feet or use less UE assistance. Pt. Demonstrates limited AROM with heel raises, but denies pain throughout visit. The patient will continue to benefit from ongoing skilled physical therapy to progress toward set goals. PLAN FOR NEXT VISIT: SLS balance on firm surface, EC on firm surface, and gait training SUBJECTIVE: Pt.reports that she has had a UTI for the past 10 days. She has intermittent dizziness.She had normal BP This morning when she checked it at home. She is not having as much difficulty with negociating stairs. Pain: OBJECTIVE MEASURES WITH LEVEL OF FUNCTION: TREATMENT: Therapeutic Exercise: 1: SciFIt seat 10, level 2, 1:1 throughout, subjective collected 2: step ups 6 1x12 each LE lead with x1 UE support 3: step ups 6 1x12 each LE lead with x1 UE support lateral 4: B heel raises with x1 UE support 2x10 Skilled Intervention: Patient was educated in proper exercise technique and purpose for exercises. Correct performance of therapeutic exercises was facilitated with verbal, visual, and tactile cuing. Patient education as noted. Neuromuscular Re-Education: 1: standing on foam 30 sec no UE support 2: standing on foam side to side 30 sec 3x 3: standing on foam forward and back 30 sec 3x Skilled Intervention: Skilled judgment used to assess appropriate program for balance and coordination activity. Education in proprioceptive/kinesthetic awareness during standing and dynamic activities. Ensured patient safety with use of // bars and gait belt Reviewed and educated patient on additions/changes for home program as noted above with an (*). Patient education as noted. Self-Chcf Management: 1: advised pt. to see physician regarding dizziness Skilled Intervention: Skilled judgment in the selection of proper modification for activity of daily living/home management based on clinical presentation, deficits, and needs. Reviewed patient specific diagnosis in relation to activities of daily living/home management. Activity progression based on professional judgement. Moderate verbal cues for maintaining neutral spine alignment. Reviewed and educated patient on additions/changes for home program as noted above with an (*). Correct performance of home program was facilitated with verbal, visual, and tactile cueing. Billing Therapeutic Exercise Treatment Minutes: 25 Neuromuscular Re-Education Treatment Minutes: 10 Self-Care/Home Management Treatment Minutes: 5 Skilled Treatment Time Minutes (timed and untimed codes): 40 Total Session Time (minutes): 40 Session Start Time : 1438 Session Stop Time : 1518 Odette Harvey PT documented in this encounterOhio[facility]04-25-2024 Telephone encounter Note * Telephone Encounter - Meme Gant LPN - 08/26/2023 9:16 AM EDT Pt reports she needs to have her recent labs faxed to Dr. Banerjee, Trials Manager. PH: [phone] Pt did not have fax number. Please fax labs to provider above. Meme Gant LPN [facility]04-25-[facility] Miscellaneous Notes* Telephone Encounter - Meme Gant LPN - 08/26/2023 9:16 AM EDT Pt reports she needs to have her recent labs faxed to Dr. Banerjee, Trials Manager. PH: [phone] Pt did not have fax number. Please fax labs to provider above. Meme Gant LPN * Telephone Encounter - Meme Gant LPN - 08/26/2023 8:37 AM EDT Pt called to let you know she went to [facility] and was dx with a UTI and put on Cipro 500 mg taking (1) twice a day. Pt was having back pain on left side and now this is starting to subside. documented in this encounterOhio[facility]04-25-2024 Telephone encounter Note * Telephone Encounter - Meme Gant LPN - 08/26/2023 8:37 AM EDT Pt called to let you know she went to [facility] and was dx with a UTI and put on Cipro 500 mg taking (1) twice a day. Pt was having back pain on left side and now this is starting to subside. [facility] History of Present illness Narrative* Odette Harvey, PT - 08/17/2023 11:45 AM EDT Episode Visit Count: 1 Therapist That Will Accept/Oversee The Plan Of Care: Odette Harvey Start of Care Date: 08/17/23 Onset Date: 06/30/23 Plan of Care Certification Date: 08/17/23 Next Certification Due Date: 09/21/23 Patient Identified by Name and Date of : Yes REHABILITATION AND SPORTS THERAPY PHYSICAL THERAPY EVALUATION PLAN OF CARE: Assessment: Jil Díaz presents with diagnosis of gait instability that interferes with rising from a chair, walking . She presents with impairments in ADL's, balance, gait, independence in exercise, joint mobility, overall function, patient reported outcome measures, posture, and strength. PROMIS (Patient-Reported Outcomes Measurement Information System) scores were reviewed and identified as a rehabilitation concern. Prognosis for therapy is Good due to: Prognosis may be limited due to, good support system/ coping skills, within-session changes, acuteness ofcondition, good overall health status, current objective clinical presentation advanced age, chronic nature of impairments . She will benefit from skilled therapy services to meet the goals established for this plan of care as noted below. Assessment Fall Risk : Active at risk Goals for Episode of Care: created on 08/17/23 through 09/28/23 Patient will report no falls. Improve score on Timed Up and Go Test to <11 seconds to reflect decreased fall risk. Improve score on 30 Second Chair Stand to 10 or more repetitions to reflect decreased fall risk. Ascending and descend x 4 6 steps with x1 HR with reciprocal pattern. Patient Goals: reduce difficulty with negociating stairs Planned Interventions, Frequency, and Duration: Current Frequency: 2x/week Duration: 6 weeks Total Number of Visits Planned: 12 Planned Treatment Interventions: Gait Training (52617), Self-shelter management (24489), Therapeutic activities (81045), Manual therapy (16020), Neuromuscular re-education (60777), Therapeutic exercise (17290) PLAN FOR NEXT VISIT: step ups Patient demonstrates good understanding of plan of care and treatment. The above goals and plan of care were discussed and agreed upon by patient/family. SUBJECTIVE: for s/p fall 06/30/23. Pt. 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 [facility]. Denies head injury or LOC. Pt. landed on the L knee and L hand. Referred to PT to reduce fall risk. Uses a cane for bad weather and on gravel. Pt. chief c/o difficulty with ascending and descending a flight of stairs to her in law suite set up basement. Otherwise indep with ADLs. Amb community distances without AD. Patient Goals: reduce difficulty with negociating stairs Functional Limitations: rising from a chair, walking Prior Level of Function: Independent without limitations Relevant History Employment: Retired Home Environment Patient Lives With: Family (basement) Home Type: (describes 1 flight of steps to inlaw suite in the basement with x 1 rail) Intake Information: Prescription present Previous Treatment: Physical Therapy Falls Interview: Fall with injury in the last year Falls Intervention: More thorough falls assessment to be performed Falls History # of falls in past year: 1 # of falls resulting in an injury in past year: 1 Pain: Pain Pain Level: 0 PROMIS Scales 08/17/2023 Higher is Better Phys Func - Score 53 (within normal limits) Phys Func - Percentile 62 Self-Eff Symptom - Score 55 (Average) Self-Eff Symptom - Percentile 69 T-scores: mean of general population = 50. 5 points is clinically meaningfully difference Percentiles provide an indication of how the patient's score ranks in relation to the general population. Higher percentile rankings indicate better function/quality of life. 50th percentile is the average of the general population and indicates half of respondents had a worse score. OBJECTIVE MEASURES WITH LEVEL OF FUNCTION: Mobility Sit To Stand: Independent Stand To Sit: Independent Mobility Comments: does not require use of BUE to sit <> stand, but reports difficulty Gait Gait: Independent Gait Distance (feet): 100 Gait Device: None Gait Deviations: General Deviations General Deviations/Observations: Step length decreased, Trunk Control Decreased, Wide base of support, Flexed trunk posture, Lateral sway increased Stairs: non reciprocal pattern with x1 UE support ascending and descending Functional Performance Test Results Assistive Device: None 30 Second Chair Stand Test: 9 reps Timed Up and Go (sec): 13 sec (trial 2 13 sec no AD) 4 Stage Balance Test Narrow base of support (sec): 30 sec Semi-tandem base of support (sec): 20 sec Single leg stance - right (sec): 0 sec Single leg stance - left (sec): 0 sec Education: Education Learning Preferences: Explanation, Performance, Printed Materials, Demonstration Barriers: None Learning/educational needs: Gait Training, Plan of Care, Home exercise program Education Provided: Yes, see treatment interventions for education provided Education Provided To: Patient Education Mode/Type: Demonstration, Explanation/Discussion, Literature/Printed Materials, Performance Response to Education/Teach Back: States/Identifies, Return Demonstration TREATMENT: PT Treatment Interventions: Therapeutic Exercise, Self-Chcf Management Evaluation Self-Chcf Management: 1: discussed installing grab bars or BSC over toilet 2: discussed balance test scores and goal to reduce risk for falls 3: discussed pt. continue to use SC on uneven surface, bad weather, or days she feels unstable Skilled Intervention: Skilled judgment in the selection of proper modification for activity of daily living/home management based on clinical presentation, deficits, and needs. Reviewed patient specific diagnosis in relation to activities of daily living/home management. Activity progression based on professional judgement. Moderate verbal cues for maintaining neutral spine alignment. Reviewed and educated patient on additions/changes for home program as noted above with an (*). Billing * Evaluation Moderate Complexity: 1 Unit Self-Care/Home Management Treatment Minutes: 15 Skilled Treatment Time Minutes (timed and untimed codes): 45 Total Session Time (minutes): 45 Session Start Time : 1143 Session Stop Time : 1228 Odette Harvey, PT documented in this encounterOhio[facility]03-20-2024 Miscellaneous Notes* Telephone Encounter - Meme Gant LPN - 07/21/2023 4:29 PM EDT Spoke with pt and information listed below given. Pt verbalizes understanding. Meme Gant LPN * Telephone Encounter - Lillie Hu LPN - 07/21/2023 4:25 PM EDT Message left for patient to call office back for update. Lillie Hu LPN * Telephone Encounter - Drea Colon APRN.CNP - 07/21/2023 4:21 PM EDT No acute findings on CT Drea Colon APRN.COY * Telephone Encounter - Drea Colon APRN.CNP - 07/21/2023 10:24 AM EDT Reviewed. Drea Brenner APRN.CNP * Telephone Encounter - Antwan Wilder RN - 07/21/2023 10:08 AM EDT Patient reports she does not have an open wound on her right foot. She stepped on a stone or something that caused her right heel to be sore, but there is nothing there, it's better than it was. Reports she has an appt with appraisal coordinator next week. Reports she does have a skin tear on her LLL. Reports she tripped over a stool and received a skin tear and would like to have provider look at it today. It's a little bigger than a 50 cent piece. Reports it bled some and she has a dressing on it. * Telephone Encounter - Drea Colon APRN.CNP - 07/21/2023 9:04 AM EDT Does patient have an open wound to her foot? IF so Dr. Soares prefers she has earlier appointment today in case we need to get her in to see podiatry. Drea Colon APRN.CNP documented in this encounterOhio[facility]03-20-2024 History of Present illness Narrative* Drea Colon APRN.CNP - 07/21/2023 12:08 PM EDT 07/21/2023 Patient presents with: Skin tear : LLE; occurred last night Heel Pain: Right heel pain; stepped on something, unsure what. No open area. SUBJECTIVE: This is a 83 year old that is here today for Above Complaints.. Last night sitting on a stool on floor and slid off of it. Hit back of head on carpeted floor. Alsoright foot scraped across left lower leg causing a skin tear. Denies lethargy, confusion, visual changes, dizziness, lightheadedness, headaches, nausea or vomiting A week ago stepped on a small stone in her house. Was barefoot. Has had pain to heel since. Pain isintermittent. Described as just feel it. Only hurts when she steps on it a certain way. Stone didnot break skin. Denies redness to area, swelling or excessive warmth PAST MEDICAL HISTORY Diagnosis Date Aortic stenosis [...] Oxycodone MEDICATIONS Current Outpatient Medications Medication Sig apixaban (ELIQUIS) 5 mg tab(s) Take 5 mg by mouth two times a day. potassium chloride 20 mEq TbER Take 20 mEq by mouth once daily. furosemide (LASIX) 40 mg tablet Take 40 mg by mouth once daily. dilTIAZem CD (CARDIZEM CD, CARTIA XT) 120 mg 24 hr capsule Take 1 capsule by mouth once daily. pantoprazole DR (PROTONIX) 40 mg tablet Take 1 tablet by mouth daily before breakfast. Take on empty stomach, 1/2 hr before meal. losartan (COZAAR) 50 mg tablet Take 1 tablet by mouth once daily. atorvastatin (LIPITOR) 10 [...] Drop in both eyes once daily. vit C,G-Pk-tjakm-lutein-zeaxan (PRESERVISION AREDS-2) 250-90-40-1 mg Take 1 tablet [...] Types: Cigarettes Quit date: 05/03/1988 Years since quittin.2 Smokeless tobacco: Never Substance Use Topics Alcohol use: No Drug use: No REVIEW OF SYSTEMS All other reviewed and negative other than HPI. OBJECTIVE: BP 124/78 Pulse 86 Resp 18 Wt 63 kg (138 lb 12.8 oz) SpO2 97% BMI 23.82 kg/m . Vital signs reviewed by this provider. APPEARANCE Well appearing, alert, in no acute distress, well-hydrated, well nourished. H\EAD: no ecchymosis, swelling or tenderness EYES PERRLA, conjunctiva and sclera normal. EARS External ears normal, canals clear HEART RRR with normal S1 and S2, no murmurs, no gallops, no JVD appreciated LUNG clear to auscultation. No wheezes, rhonchi or rales NEURO Awake, alert and oriented x 3, Cranial nerves II-XII grossly intact, Reflexes symmetrical, Normal gait, No involuntary motions., and negative findings: speech normal, mental status intact, Romberg negative, muscle tone normal, muscle strength normal, rapid alternating movements normal, fingerto nose normal SKIN Left lower anterior leg with large skin tear. Small amount of bleeding and ecchymosis to area.O surrounding erythema, excessive swelling or warmth to area RIGHT HEEL: small faint linear area of bruising to medial outer heel. Mild TTP. No obvious deformity, erythema, swelling or excessive warmth Advance Directive Discussion Never done Depression Assessment due on 05/03/2023 Influenza Vaccine(1) due on 10/31/2023 Covid-19 Vaccine(4 - season) due on 02/09/2024 Diabetes Screening due on 02/23/2026 DTaP,Tdap,Td Vaccine(3 - Td or Tdap) due on 07/08/2031 Bone Density Screening Completed RSV Vaccine Completed Shingrix Vaccine Completed Pneumococcal Vaccine: 65+ Completed ASSESSMENT/PLAN: 1. Fall from stool - ICD9: E884.5, ICD10: W08.XXXA (primary diagnosis) - plan as below 2. Injury of head, initial encounter - ICD9: 959.01, ICD10: S09.90XA - is on chronic anticoagulation will obtain CT to rule out intracranial hemorrhage - no red flag symptoms or exam findings - red flag symptoms discussed, verbalizes understanding - CT BRAIN WO IVCON - to ER with red flag symptoms 3. Pain of right heel - ICD9: 729.5, ICD10: M79.671 - may use OTC tylenol for pain if needed - wear shoes or soled slipper in the house to help cushion area - no red flag symptoms or exam findings - red flag symptoms discussed, verbalizes understanding - follow-up if symptoms persist to ER with red flag symptoms 4. Noninfected skin tear of left lower extremity, initial encounter - ICD9: 891.0, ICD10: S81.812A - no red fla symptoms or exam findings - red flag symptoms discussed, verbalizes understanding - keep area clean and covered with non-stick dressing, once bleeding subsides may keep open to air - antibiotic as below to prevent infection - CEPHALEXIN 500 MG CAPSULE - follow-up in one week for recheck Drea Colon APRN.ASSISTED LIVING CARE MANAGER Prescription instructions reviewed with patient as applicable. Patient advised if symptoms do not improve or if symptoms worsen sooner, to contact their primary care physician. Potential red flag symptoms discussed with the patient. Reviewed appropriate action plan to take if red flag symptoms occur. Patient agreeable to treatment plan. Medical Decision Making: Problems: Moderate: New problem with uncertain prognosis Data: Unique test(s) ordered: 1 Risk: Moderate: Drug management Medical Decision Making Level: 4 - Moderate documented in this encounterOhio[facility]03-08-2024 History of Present illness Narrative* Tony Soares MD - 07/09/2023 8:30 AM EST Chief Complaint Patient presents with: Follow Up: 1 week HPI Jil Díaz is a 83 year old female who presents here today for Above Complaints. Patient here today to follow up on wounds on left hand and left knee. Healing well without erythema, purulent drainage, significant bleeding, warmth to touch. Keeping area clean. Steri strips still in place and has not showered or bathed. Using cane for ambulation and feels steady. Past medical history, appointments, medications, allergies reviewed. [...] on File Prior to Visit Medication Sig apixaban (ELIQUIS) 5 mg tab(s) Take 5 mg by mouth two times a day. potassium chloride 20 mEq TbER Take 20 mEq by mouth once daily. furosemide (LASIX) 40 mg tablet Take 40 mg by mouth once daily. cephALEXin (KEFLEX) 500 mg capsule Take 1 capsule by mouth three times a day for 10 days. dilTIAZem CD (CARDIZEM CD, CARTIA XT) 120 mg 24 hr capsule Take 1 capsule by mouth once daily. pantoprazole DR (PROTONIX) 40 mg tablet Take 1 tablet by mouth daily before breakfast. Take on empty stomach, 1/2 hr before meal. losartan (COZAAR) 50 mg tablet Take 1 tablet by mouth once daily. atorvastatin (LIPITOR) 10 [...] Drop in both eyes once daily. vit C,Q-Tk-tkkuf-lutein-zeaxan (PRESERVISION AREDS-2) 250-90-40-1 mg Take 1 tablet [...] Types: Cigarettes Quit date: 05/03/1988 Years since quittin.2 Smokeless tobacco: Never Substance Use Topics Alcohol use: No Drug use: No Review of Symptoms REVIEW OF SYSTEMS See HPI EXAM: BP 126/68 Pulse 80 Resp 16 Wt 62 kg (136 lb 9.6 oz) SpO2 98% BMI 23.45 kg/m General Appearance: Well appearing, alert, in no acute distress, well-hydrated, well nourished.. Skin: Healing Skin tear on dorsum of left hand over 4th MCP joint and large skin tear on left knee with bruising. No cellulitis. Steri strips in place with crusted scabbing and wounds well approximated. No active bleeding or purulent drainage. Health Maintenance List Advance Directive Discussion Never done Depression Assessment due on 05/03/2023 Influenza Vaccine(1) due on 10/31/2023 Covid-19 Vaccine( - season) due on 02/09/2024 Diabetes Screening due on 02/23/2026 DTaP,Tdap,Td Vaccine(3 - Td or Tdap) due on 07/08/2031 Bone Density Screening Completed RSV Vaccine Completed Shingrix Vaccine Completed Pneumococcal Vaccine: 65+ Completed ASSESSMENT/PLAN: 1. Skin tear of hand without complication, left, initial encounter - ICD9: 882.0, ICD10: S61.412A (primary diagnosis) Healing well. Discussed she may return to showering and leave wounds open to air. Given instructions for wound care for home. Red flags for re-assessment reviewed with patient in detail. 2. Noninfected skin tear of left lower extremity, initial encounter - ICD9: 891.0, ICD10: S81.812A See above 3. Fall in home, subsequent encounter - ICD9: V58.89, E888.9, ICD10: W19.XXXD, Y92.009 No recurrent falls. Continue with cane for ambulation. Keep walking lanes clear. market superintendent loose rugs. Tony Soares MD documented in this encounterOhio[facility]03-01-2024 History of Present illness Narrative* Tuyet Garcia, RT(R) - 07/02/2023 3:40 PM EST Radiology Service Progress Note PATIENT NAME: Jil Díaz DATE OF SERVICE: July 02, 2023 TIME: 4:16 PM PATIENT IDENTITY VERIFICATION COMPLETED USING TWO (2) IDENTIFIERS: Name and Date of confirmedby patient verbally. FALL SCREENING: Has the patient had 2 falls in the last year or 1 fall with injury or currently using an Ambulatory Assistive Device (Walker, Cane, Wheelchair, Crutches, etc.)? No PATIENT GENDER DATA: Female. status: : No status: NO. PATIENT RELEVANT IMPLANT DATA REVIEWED: Not Applicable PATIENT PRESENTS WITH AN IMPLANTABLE OR ATTACHED EMBALMER APPRENTICE: No RADIOLOGY DEPARTMENT: CT; Exam(s) Completed: Brain PERIPHERAL IV DATA: Not applicable SIGNED BY: RT Praveen(R) July 02, 2023 4:16 PM documented in this encounterOhiohealth Shelby Hospital03-01-2024 History of Present illness Narrative* Tony Soares MD - 07/02/2023 8:37 AM EST Chief Complaint Patient presents with: ER F/U HPI Jil Tomasa Díaz is a 83 year old female who presents here today for ER Follow Up.. Patient evaluated at [facility] ED on 06/30 for complaint of fall with injury to left knee and left hand which occurred same day. Denied head injury or LOC. Superficial tears on dorsum of left hand and skin tear to left knee treated with steri strips. It does not appear imaging was done in the ER. Discharged home with wound care instructions and to follow up with our office in 1-2 weeks. Today, states that she has not had any recurrent falls. Has not changed her dressings yet. No bleeding noted from the dressings. States that she did hit her left forehead onto the floor when she fell, but did not have any LOC. No bruising or pain over this area. Denies headache, vision changes, slurred speech, facial droop, numbness, tingling, weakness. Past medical history, appointments, medications, allergies reviewed. [...] on File Prior to Visit Medication Sig dilTIAZem CD (CARDIZEM CD, CARTIA XT) 120 mg 24 hr capsule Take 1 capsule by mouth once daily. pantoprazole DR (PROTONIX) 40 mg tablet Take 1 tablet by mouth daily before breakfast. Take on empty stomach, 1/2 hr before meal. losartan (COZAAR) 50 mg tablet Take 1 tablet by mouth once daily. atorvastatin (LIPITOR) 10 [...] Drop in both eyes once daily. vit C,B-Jt-qxqip-lutein-zeaxan (PRESERVISION AREDS-2) 250-90-40-1 mg Take 1 tablet [...] REVIEW OF SYSTEMS See HPI EXAM: BP 126/70 Pulse 72 Resp 16 Wt 62.6 kg (138 lb) SpO2 98% BMI 23.69 kg/m General Appearance: Well appearing, alert, in no acute distress, well-hydrated, well nourished.. Skin: Skin tear on dorsum of left hand over 4th MCP joint and large skin tear on left knee with bruising. No cellulitis. Steri strips in place and wound well approximated. No active bleeding or purulent drainage. . Head: Normocephalic, no masses, lesions, tenderness or abnormalities. Lungs: Lungs clear to auscultation. No wheezing, rhonchi, rales.. Heart: RRR without murmur, gallop, or rubs. No ectopy. Musculoskeletal: No joint swelling, deformity, or tenderness. Neurologic: Negative findings: speech normal, mental status intact, cranial nerves 2-12 intact, muscle tone normal, muscle strength normal, sensation to light touch and pinprick normal. Health Maintenance List Advance Directive Discussion Never done Depression Assessment due on 05/03/2023 Influenza Vaccine(1) due on 10/31/2023 Covid-19 Vaccine( season) due on 02/09/2024 Diabetes Screening due on 02/23/2026 DTaP,Tdap,Td Vaccine(3 - Td or Tdap) due on 07/08/2031 Bone Density Screening Completed RSV Vaccine Completed Shingrix Vaccine Completed Pneumococcal Vaccine: 65+ Completed ASSESSMENT/PLAN: 1. Skin tear of hand without complication, left, initial encounter - ICD9: 882.0, ICD10: S61.412A (primary diagnosis) Bandage removed to check wound without signs of infection steri strips that came off with bandage were replaced. Start Keflex x 10 days to prevent infection. Wound care at home discussed with patient. Red flags for re-assessment reviewed with patient in detail. 2. Noninfected skin tear of left lower extremity, initial encounter - ICD9: 891.0, ICD10: S81.812A Bandage removed to check wound without signs of infection steri strips that came off with bandage were replaced. Start Keflex x 10 days to prevent infection. Wound care at home discussed with patient. Red flags for re-assessment reviewed with patient in detail. Recheck in 1 week. 3. Injury of head, initial encounter - ICD9: 959.01, ICD10: S09.90XA Patient with mild head injury without signs of trauma on exam. With her being on anticoagulation, will obtain CT to rule out intracranial hemorrhage and call with results. - CT BRAIN WO IVCON 4. Fall in home, subsequent encounter - ICD9: V58.89, E888.9, ICD10: W19.XXXD, Y92.009 Mechanical fall at home. Feels steady on her feet. Discussed order for cane/walker which she does not feel she needs at this time. Refusing PT. F/u in 1 week. Tony Soares MD documented in this encounterOhio[facility] Hospital12-11-2023 Miscellaneous Notes* Telephone Encounter - Lillie Hu LPN - 04/12/2023 3:59 PM EST CHRISTINA 03/31/2023 NOV 04/14/2023 * Telephone Encounter - Lo Canseco - 04/12/2023 9:28 AM EST Pharmacy verified in [facility] Patient has been identified by name [...] 3.2 oz) Not applicable Please advise. Lo Garcia documented in this encounterOhiohealth Shelby Hospital11-29-2023 Instructions* Patient Instructions* Drea Colon APRN.COY - 03/31/2023 10:42 AM EST May take mucinex over the counter as directed on package May use coricidin over the counter as directed on packaging documented in this encounterOhiohealth Shelby Hospital11-29-2023 History of Present illness Narrative* Drea Colon APRN.CNP - 03/31/2023 10:31 AM EST 03/31/2023 Patient presents with: Cough: X3 days [...] Drop in both eyes once daily. vit C,C-Xo-juzap-lutein-zeaxan (PRESERVISION AREDS-2) 250-90-40-1 mg Take 1 tablet [...] kg (148 lb 6.4 oz) SpO2 98% BMI25.47 kg/m . Vital signs reviewed by this [...] to ER with red flag symptoms Drea Podlogar, HYDROCHLORIC ACID OPERATOR.ASSISTED LIVING CARE MANAGER Prescription instructions reviewed with patient as applicable. [...] which included preparing to see the patient, [id number] patient care, completing clinical documentation, obtaining and/or reviewing separately obtained history, performing a medically appropriate examination, and counseling and educating the patient/family/caregiver. documented in this encounterOhiohealth Shelby Hospital11-16-2023 Miscellaneous Notes* Telephone Encounter - Antonella Og LPN - 03/18/2023 10:51 AM EST Patient returned call and went over notes below from Dr Soares with understanding. Patient said her blood pressure today at 10 am was 127/73, she had gotten herself all overly excited yesterday withthe vaccine. * Telephone Encounter - Beatriz Isaac LPN - 03/18/2023 10:33 AM EST Attempted calling patient and phone rang 2 x then call dropped. Attempted call back and line busy. Please attempt call back at later time. * Telephone Encounter - Tony Soares MD - 03/17/2023 5:17 PM EST Possible reaction from her vaccine today. Agree with recommendations. * Telephone Encounter - Antwan Wilder RN - 03/17/2023 4:43 PM EST Patient transferred to this nurse from [facility]. Patient concerned about a recent BP reading of 167/97 (82). Patient very worried it is too high. Reports no symptoms and states I feel fine. Patient denies CP, SOB, dizziness, numbness, no fever. Reports this morning BP was 113/63, yesterday BP 106/61. Reports she received an RSV vaccine today at [facility]. Reports she received a pneumonia vaccine 2days ago in pcp office. Patient declined same [...] dizziness, numbness. Patient agreeable. documented in this encounterOhiohealth Shelby Hospital11-13-2023 Instructions* Patient Instructions* Tony Soares MD - 03/15/2023 2:17 PM EST Please follow up with your pharmacy for your RSV vaccine. documented in this encounterOhiohealth Shelby Hospital11-13-2023 History of Present illness Narrative* Tony Soares MD - 03/15/2023 1:52 PM EST Chief Complaint Patient presents with: Follow Up: 6 month HPI Jil Díaz is a 82 year old female who presents here today for Above Complaints. No falls sincelast OV. BP in good range today on current regimen. Checking BP at home prior to taking her medication in the morning and has been getting readings in the 140- 150's/90's. Discussed checking after taking medications instead. Denies hyper/hypotension symptoms. Glaucoma: compliant with eye drops as ordered. Occasionally gets blurred vision. F/u visit with 's office in 1-2 weeks. PUD: Patient had [...] bilateral s/p removal Chronic urticaria seeing Dr. Sanyurah Concussion 05/2015 fell off step stool COVID-19 [...] Drop in both eyes once daily. vit C,E-Fw-adbku-lutein-zeaxan (PRESERVISION AREDS-2) 250-90-40-1 mg Take 1 tablet [...] Abs Lymph 1.00 - 4.00 k/uL 1.41 [place]% % 10.5 Abs [place] <0.87 k/uL 0.61 [place]% % 0.9 Abs [...] whether hemorrhage - ICD9: 530.11,ICD10: K21.00 - Discussed lifestyle modifications including losing [...] 20) Tony Soares MD documented in this encounterOhiohealth Shelby Hospital11-03-2023 History of Present illness Narrative* Drea Colon APRN.ASSISTED LIVING CARE MANAGER - 03/05/2023 6:35 PM EDT 03/05/2023 Patient presents with: Blood Pressure Check SUBJECTIVE: This is a 82 year old that is here today for Above Complaints. Patient reports she has had elevated BP reading the last three days 177-196/73-99, pulse 63-96. Shereports she has been taking the reduced amount of losartan and taking her diltiazem CD as prescribed. Had headache yesterday. Feeling better today. She reports she has been following Dr. Soares's ins truction regarding her BP readings in the morning. She has brought her BP cuff with her today to validate. She reports BP this AM was 177/73. In office right now she is 140/68 and her home BP cuff is148/72. Denies visual changes, headaches, lightheadedness, dizziness, slurred [...] Drop in both eyes once daily. vit C,X-Pn-tsryf-lutein-zeaxan (PRESERVISION AREDS-2) 250-90-40-1 mg Take 1 tablet [...] which included preparing to see the patient, [id number] patient care, completing clinical documentation, obtaining and/or reviewing separately obtained history, performing a medically appropriate examination, and counseling and educating the patient/family/caregiver. documented in this encounterOhiohealth Shelby Hospital11-03-2023 Miscellaneous Notes* Telephone Encounter - Liv Dwyer RN - 03/05/2023 11:37 AM EDT Pt states she has her BP cuff with her. * Telephone Encounter - Drea Colon APRN.CNP - 03/05/2023 6:19 AM EDT Please have patient bring her home blood pressure cuff to appointment today. Drea Colon APRN.COY documented in this encounterOhiohealth Shelby Hospital10-25-2023 Miscellaneous Notes* Telephone Encounter - Antonella Og LPN - 02/24/2023 9:47 AM EDT Patient returned call and went over results, notes from Dr Soares with understanding. * Telephone Encounter - Lillie Hu LPN - 02/24/2023 9:43 AM EDT Message left for patient to call office back for update. Lillie Hu LPN * Telephone Encounter - Lillie Hu LPN - 02/24/2023 9:42 AM EDT ----- Message from Tony Soares MD sent at 02/24/2023 8:02 AM EDT ----- Labs are stable/unremarkable. Iron levels normal. No anemia. No changes to regimen. documented in this [facility]10-19-2023 Miscellaneous Notes* Telephone Encounter - Giovanna Live RN - 02/18/2023 11:35 AM EDT Pt calling in very upset and concerned over BP readings. Pt took BP when she woke up this morning at 0800 and it was 180/90 so she took both her Losartan and Diltiazem. Repeated BP at 1000 and it ury563/60. Then at 1045 it was 101/30. and [...] her BP higher. Pt was so concerned andupset about her readings that she called and set up an appt with Dr. Soares for tomorrow. Pt's 2 wk f/u is scheduled for next Wednesday the . Reading through the telephone encounters over the lastseveral days, found the following instructions for the [...] down and read them back to the nurse.Instructed pt to only check her BP on waking up and after lunch unless she is symptomatic with headache or visual problems or not feeling well.. Pt states she feels absolutely fine right now and muchcalmer after our discussion. At this time, pt seems to understand when to take her BP and how to take her medications. Appt cancelled for tomorrow and pt to bring her 2 BP readings per day and her BPmonitor to her appt on Wednesday. Pt verbalizes understanding. documented in this encounterOhiohealth Shelby Hospital10-18-2023 Miscellaneous Notes* Telephone Encounter - Anaya Miller RN - 02/17/2023 3:24 PM EDT Call placed to patient and reviewed instructions several times. Patient wrote instructions down andwas able to repeat them back correctly. Anaya Miller RN * Telephone Encounter - Tony Soares MD - 02/17/2023 3:12 PM EDT BP this morning was >100/60, so should have taken her losartan as well. Continue to check at home and call if consistently >140/90. * Telephone Encounter - Beatriz Allison LPN - 02/17/2023 2:31 PM EDT Pt wanted to report blood pressures from today. 5am 162/88 pt took diltiazem, held losartan. 6:16am 133/77. Pt went to [facility] to have endoscopy & BP there was 137/? Pt doesn't remember what the diastolic was. Today after lunch (20 mins before calling) BP was 168/73, pt states she will take losartan. Pt states she feels great! Instructions from pcp from phone note yesterday gone over again with pt. Beatriz Allison LPN documented in this encounterOhiohealth Shelby Hospital10-18-2023 Procedure [facility]10-18-2023 [facility]10-17-2023 Miscellaneous Notes* Telephone Encounter - Antonella Og LPN - 02/16/2023 4:07 PM EDT Phoned patient and went over notes below from Dr Soares several times with patient, had her write it down and repeat to me, she said she understood. Advised to write down bp readings and make sure she brings them to her appt next week also. * Telephone Encounter - Tony Soares MD - 02/16/2023 3:32 PM EDT I would have her start checking BP upon awakening. If BP is <100/60 in the morning, should hold her losartan that day and repeat BP after lunch. If above 100/60, take losartan as directed. Try to drink at least 60 oz of water daily. Call if persistently <100/60 or >150/90. * Telephone Encounter - Antonella Og LPN - 02/16/2023 3:20 PM EDT Patient calling said her blood pressure today [...] 2 week bp check. documented in this encounterOhiohealth Shelby Hospital10-09-2023 Instructions* Patient Instructions* Tony Soares MD - 02/08/2023 8:29 AM EDT Call with high blood pressure readings above 140/90 or low less than 100/60. documented in this encounterOhiohealth Shelby Hospital10-09-2023 History of Present illness Narrative* Tony Soares MD - 02/08/2023 8:15 AM EDT Chief Complaint Patient presents with: Blood Pressure: BP has been elevated HPI Jil Díaz is a 82 year old female who presents here today for Above Complaints. HTN: Ms. Díaz indicates that she is feeling well and denies any symptoms referable to elevated blood pressure. Specifically denies headache, chest pain, palpitations, dyspnea, and peripheral edema.Patient denies any side effects of her medication(s) and is compliant with their regimen. She does check BP's away from this office with BP's in the 87/54-183/77 range. Jil denies regular aerobic exercise. She watches her [...] Drop in both eyes once daily. vit C,O-Xd-pkfsk-lutein-zeaxan (PRESERVISION AREDS-2) 250-90-40-1 mg Take 1 tablet [...] visit Tony Soares MD documented in this encounterOhiohealth Shelby Hospital10-06-2023 Miscellaneous Notes* Telephone Encounter - Beatriz Isaac LPN - 02/05/2023 12:11 PM EDT Phoned patient and advised her of provider's message. She voiced understanding. * Telephone Encounter - Tony Soares MD - 02/05/2023 11:52 AM EDT I would have her take 50 mg of Losartan instead of 75 mg. Will check BP on Wednesday. * Telephone Encounter - Lynette Aguillon RN - 02/05/2023 11:39 AM EDT Patient calling and asking if Dr. Soares can advise her. If not, if rDea Contreraslogkenny can advise, please. Pt reports she has [...] 120 mg once daily Pt last saw Licensing Manager, Dr. Ibarra on 11/10/22. She states at [...] on Wednesday by Dr. Soares? She states sheis afraid to sleep at night if her BP is too low. Please advise patient. Thank you. documented in this encounterOhiohealth Shelby Hospital10-06-2023 Miscellaneous Notes* Telephone Encounter - Lynette Aguillon RN - 02/05/2023 11:49 AM EDT Opened in error. Lynette Aguillon RN documented in this encounterOhiohealth Shelby Hospital08-10-2023 Miscellaneous Notes* Telephone Encounter - Beatriz Isaac LPN - 12/10/2022 3:37 PM EDT Phoned patient and reviewed provider's message with her. Patient voiced understanding and reports that she thinks she has taken this in the past. Advised her if so not to use medication. She voiced understanding. * Telephone Encounter - Tony Soares MD - 12/10/2022 3:23 PM EDT Recommend trial of low dose anti depressant we use for sleep called doxepin. Would start her on 3 mg at bedtime and call if not improving in about 1 week or sooner with side effects. These medications cause drowsiness and can increase risk for falls so should call if tiredness persists during the day. * Telephone Encounter - Liv Dwyer RN - 12/10/2022 12:19 PM EDT Pt called and is notified [...] fall back asleep. Please call and advise. Liv Dwyer RN * Telephone Encounter - Tony Soares MD - 12/10/2022 9:30 AM EDT I would not have her take more than 10 mg of melatonin. * Telephone Encounter - Liv Dwyer RN - 12/10/2022 9:14 AM EDT Pt called in and reports she had been taking another sleep medication but switched over and is now taking Melatonin. She states that she is taking 10 mg and she is waking up at 3 am like she was withthe other medication. She wanted to know if she could take 15 mg. Please call and advise. documented in this encounterOhiohealth Shelby Hospital07-13-2023 Procedure [facility]07-13-2023 Procedure [facility]06-19-2023 Miscellaneous Notes* Telephone Encounter - Drea Colon APRN.CNP - 10/19/2022 8:52 AM EDT Reviewed. Drea Colon APRN.CNP * Telephone Encounter - Lillie Hu LPN - 10/19/2022 8:20 AM EDT Patient notified of message below. States she is much better and not having any further symptoms. Lillie Hu LPN * Telephone Encounter - Lillie Hu LPN - 10/19/2022 8:20 AM EDT ----- Message from Drea Colon APRN.CNP sent at 10/19/2022 7:30 AM EDT ----- Urine culture shows antibiotic she is taking will cover bacteria in urine. Completed entire course and follow-up if not improving. Drea Colon APRN.CNP documented in this encounterOhiohealth Shelby Hospital06-16-2023 Miscellaneous Notes* Telephone Encounter - Beatriz Isaac LPN - 10/16/2022 1:44 PM EDT Phoned patient and reviewed message with her. Patient voiced understanding and stated she has the ATB and will start it today. * Telephone Encounter - Drea Colon APRN.CNP - 10/16/2022 12:34 PM EDT If her flank pain worsens or she develops fevers, chills, nausea, vomiting or blood in urine will need to go to ER. Start antibiotic today. Drea Colon APRN.CNP * Telephone Encounter - Bryant Mccormack LPN - 10/16/2022 9:46 AM EDT See other TE- pt returned call for results/update. Pt notified of results/provider instructions. She verbalized understanding. She states she still has that problem and it stresses me out. She notes L flank pain that just started. Denies blood in urine. Bryant Mccormack LPN * Telephone Encounter - Drea Colon APRN.CNP - 10/16/2022 9:35 AM EDT Urine culture preliminarily looks like she may have bacterial infection. I am going to send in antibiotic for her to take since the full results will not be back until Wednesday. Take one pill twice a day for 5 days. Drea Colon APRN.CNP documented in this encounterOhio[facility]06-16-2023 Miscellaneous Notes* Telephone Encounter - Bryant Mccormack LPN - 10/16/2022 9:45 AM EDT Pt returned call to office. See other TE. Bryant Mccormack LPN * Telephone Encounter - Lillie Hu LPN - 10/16/2022 9:38 AM EDT Patient telephoned, will picker operator and then hangs up. Will try back later. Lillie Hu LPN * Telephone Encounter - Drea Colon APRN.CNP - 10/16/2022 6:59 AM EDT Please call patient and let her know her urine culture is still pending. How is she feeling today? Drea Colon APRN.CNP documented in this encounterOhio[facility] Hospital06-14-2023 Instructions* Patient Instructions* Drea Colon APRN.CNP - 10/14/2022 4:00 PM EDT If you develop persistent pain with urination, increasing urgency/frequency, fever, confusion, abdominal pain, back pain or vomiting notify office documented in this encounterOhiohealth Shelby Hospital06-14-2023 History of Present illness Narrative* Drea Colon APRN.CNP - 10/14/2022 3:46 PM EDT 10/14/2022 Patient presents with: UTI: Burning with [...] Drop in both eyes once daily. vit C,J-Bs-zflrm-lutein-zeaxan (PRESERVISION AREDS-2) 250-90-40-1 mg Take 1 tablet [...] ER if develops red flag symptoms Drea Podlogkenny, HYDROCHLORIC ACID OPERATOR.ASSISTED LIVING CARE MANAGER Prescription instructions reviewed with patient as applicable. [...] which included preparing to see the patient, [id number] patient care, completing clinical documentation, obtaining and/or reviewing separately obtained history, performing a medically appropriate examination, counseling and educating the pat ient/family/caregiver, and ordering medications, tests, or procedures. documented in this encounterOhiohealth Shelby Hospital05-15-2023 Miscellaneous Notes* Telephone Encounter - Marguerite Valdes LPN - 09/14/2022 11:34 AM EDT Pt calls to report that Dr. Ng's office stated they did not receive orders to gastro that were faxed 09/09/22. Orders, OV notes, Results faxed to : [phone]. Marguerite Valdes LPN documented in this encounterOhiohealth Shelby Hospital05-10-2023 Miscellaneous Notes* Telephone Encounter - Meme Gant LPN - 09/09/2022 10:51 AM EDT Pt called and requested referral and supportive information for Gastro referral be faxed to Dr. Ng at [facility]. Fax number [phone]. Done Pt will call to schedule apt. Meme Gant LPN documented in this encounterOhiohealth Shelby Hospital05-08-2023 History of Past illness Narrative* Problem Noted Date Resolved Date Melanoma 09/07/2022 documented as of this encounter (statuses as of 09/08/2022) [facility] of [facility] Narrative* Problem Noted Date Resolved Date Melanoma 09/07/2022 documented as of this encounter (statuses as of 09/09/2022) [facility] of Past illness Narrative* Problem Noted Date Resolved Date Melanoma 09/07/2022 documented as of this encounter (statuses as of 09/14/2022) [address]08-2023 History of Past illness Narrative* Problem Noted Date Resolved Date Melanoma 09/07/2022 documented as of this encounter (statuses as of 10/15/2022) [address]08-2023 History of Past illness Narrative* Problem Noted Date Resolved Date Melanoma 09/07/2022 documented as of this encounter (statuses as of 10/16/2022) [address]08-2023 History of Past illness Narrative* Problem Noted Date Resolved Date Melanoma 09/07/2022 documented as of this encounter (statuses as of 10/23/2022) [address]08-2023 History of Past illness Narrative* Problem Noted Date Diagnosed Date Resolved Date Melanoma 09/07/2022 documented as of this encounter (statuses as of 12/11/2022) [address]08-2023 History of Past illness Narrative* Problem Noted Date Diagnosed Date Resolved Date Melanoma 09/07/2022 documented as of this encounter (statuses as of 02/06/2023) [address]08-2023 History of Past illness Narrative* Problem Noted Date Diagnosed Date Resolved Date Melanoma 09/07/2022 documented as of this encounter (statuses as of 02/09/2023) [address]08-2023 History of Past illness Narrative* Problem Noted Date Diagnosed Date Resolved Date Melanoma 09/07/2022 documented as of this encounter (statuses as of 02/17/2023) [address]08-2023 History of Past illness Narrative* Problem Noted Date Diagnosed Date Resolved Date Melanoma 09/07/2022 documented as of this encounter (statuses as of 02/18/2023) [address]08-2023 History of Past illness Narrative* Problem Noted Date Diagnosed Date Resolved Date Melanoma 09/07/2022 documented as of this encounter (statuses as of 02/24/2023) [address]08-2023 History of Past illness Narrative* Problem Noted Date Diagnosed Date Resolved Date Melanoma 09/07/2022 documented as of this encounter (statuses as of 03/06/2023) [address]08-2023 History of Past illness Narrative* Problem Noted Date Diagnosed Date Resolved Date Melanoma 09/07/2022 documented as of this encounter (statuses as of 03/06/2023) [address]08-2023 History of Past illness Narrative* Problem Noted Date Diagnosed Date Resolved Date Melanoma 09/07/2022 documented as of this encounter (statuses as of 03/18/2023) [address]08-2023 History of Past illness Narrative* Problem Noted Date Diagnosed Date Resolved Date Melanoma 09/07/2022 documented as of this encounter (statuses as of 03/21/2023) [address]08-2023 History of Past illness Narrative* Problem Noted Date Diagnosed Date Resolved Date Melanoma 09/07/2022 documented as of this encounter (statuses as of 03/31/2023) [address]08-2023 History of Past illness Narrative* Problem Noted Date Diagnosed Date Resolved Date Melanoma 09/07/2022 documented as of this encounter (statuses as of 04/13/2023) [address]08-2023 History of Past illness Narrative* Problem Noted Date Diagnosed Date Resolved Date Melanoma 09/07/2022 documented as of this encounter (statuses as of 07/03/2023) [address]08-2023 History of Past illness Narrative* Problem Noted Date Diagnosed Date Resolved Date Melanoma 09/07/2022 documented as of this encounter (statuses as of 07/08/2023) [address]08-2023 History of Past illness Narrative* Problem Noted Date Diagnosed Date Resolved Date Melanoma 09/07/2022 documented as of this encounter (statuses as of 07/08/2023) [address]08-2023 History of Past illness Narrative* Problem Noted Date Diagnosed Date Resolved Date Melanoma 09/07/2022 documented as of this encounter (statuses as of 07/10/2023) [address]08-2023 History of Past illness Narrative* Problem Noted Date Diagnosed Date Resolved Date Melanoma 09/07/2022 documented as of this encounter (statuses as of 07/21/2023) [address]08-2023 History of Past illness Narrative* Problem Noted Date Diagnosed Date Resolved Date Melanoma 09/07/2022 documented as of this encounter (statuses as of 07/22/2023) [address]08-2023 History of Past illness Narrative* Problem Noted Date Diagnosed Date Resolved Date Melanoma 09/07/2022 documented as of this encounter (statuses as of 08/18/2023) [facility] of Present illness Narrative* Tony Soares MD - 09/07/2022 2:00 PM EDT Chief Complaint Patient presents with: F/U 6 months HPI Jil Díaz is a 82 year old female [...] Drop in both eyes once daily. vit C,I-Wm-efgvk-lutein-zeaxan (PRESERVISION AREDS-2) 250-90-40-1 mg Take 1 tablet [...] Abs Lymph 1.00 - 4.00 k/uL 2.43 [place]% % 10.5 Abs [place] <0.87 k/uL 0.95 (H) Eosin% % 4.9 [...] months. Tony Soares MD documented in this encounterOhiohealth Shelby Hospital04-21-2023 Miscellaneous Notes* Telephone Encounter - YOSPEH Lynne - 08/21/2022 11:55 AM EDT TC [...] adhesions or bowel obstruction. documented in this encounterOhiohealth Shelby Hospital04-10-2023 Miscellaneous Notes* Telephone Encounter - Elizabeth Alatorre MA - 08/10/2022 1:17 PM EDT Per Epic; patient has been rescheduled. Elizabeth Alatorre MA * Telephone Encounter - Taisha Sage APRN.CNP - 08/10/2022 1:06 PM EDT Agree with below. Taisha Sage APRN.COY * Telephone Encounter - Elizabeth Alatorre MA - 08/10/2022 12:51 PM EDT Pt added on to see Taisha today (08/10/22) for follow up. Pt is a [facility] patient. Attempted to contact patient to inquire what she is needing to be seen for and if she can come in at 1340 for a 40 min appointment. If pt is unable to come in early, she will need to be rescheduled to either PCP or Drea's schedule. LM for pt to contact office. Elizabeth Alatorre MA documented in this encounterOhiohealth Shelby Hospital03-24-2023 Miscellaneous Notes* Telephone Encounter - Dominguez [...] notify patient. Mary Snow documented in this encounterOhiohealth Shelby Hospital03-07-2023 Miscellaneous Notes* Telephone Encounter - Tania Arreaga Cma - 07/07/2022 9:38 AM EST Patient notified and verbalized understanding Tania Arreaga Cma * Telephone Encounter - Rahul Esposito APRN.CNP - 07/07/2022 9:04 AM EST Please let patient know that her mammogram is normal. Patient should continue with yearly screenings. documented in this encounterOhiohealth Shelby Hospital03-02-2023 Miscellaneous Notes* Telephone Encounter - Tony [...] symptoms since her OV? documented in this encounterOhiohealth Shelby Hospital12-01-2022 Miscellaneous Notes* Telephone Encounter - Aidan Mckeon Ma - 04/02/2022 11:59 AM EST [...] Lo De La Cruz documented in this encounterOhiohealth Shelby Hospital11-02-2022 History of Present illness Narrative* Drea Colon [...] Drop in both eyes once daily. vit C,H-Gb-hiegv-lutein-zeaxan (PRESERVISION AREDS-2) 250-90-40-1 mg Take 1 tablet [...] Abs Lymph 1.00 - 4.00 k/uL 1.83 [place]% % 9.6 Abs [place] <0.87 k/uL 0.65 Eosin% % 5.3 Abs [...] which included preparing to see the patient, [id number] patient care, completing clinical documentation, obtaining and/or reviewing separately obtained history, performing a medically appropriate examination, and counseling and educating the patient/family/caregiver. documented in this encounterOhiohealth Shelby Hospital09-03-2022 History of Present illness Narrative* Celia David APRN.CNP - 01/03/2022 12:52 PM EDT CC: Patient presents with: Urinary Problem: Burning with urination x 1 day HPI Jil Díaz is a 81 year old female [...] Macular degeneration Melanoma (HCC) Mitral regurgitation Dr. Stacey Post herpetic neuralgia lidocaine patch Premature contractions, [...] Drop in both eyes once daily. vit C,S-Zh-plfea-lutein-zeaxan (PRESERVISION AREDS-2) 250-90-40-1 mg Take 1 tablet [...] plan. Celia David APRN.COY documented in this encounterOhiohealth [facility] Hospital08-22-2022 History of Present illness Narrative* Tony [...] Drop in both eyes once daily. vit C,H-Ap-azfii-lutein-zeaxan (PRESERVISION AREDS-2) 250-90-40-1 mg Take 1 tablet [...] above. Tony Soares MD documented in this encounterOhiohealth Shelby Hospital08-22-2022 Miscellaneous Notes* Telephone Encounter - Tony [...] Wednesday night. Protocols used: Abdominal Pain - [id number] * Telephone Encounter - Beatriz Isaac LPN [...] her current abx regimen? documented in this encounterOhiohealth Shelby Hospital08-18-2022 History of Present illness Narrative* Tony Soares MD - 12/18/2021 2:32 PM EDT Chief Complaint Patient presents with: Dysuria HPI Jil Díaz is a 81 year old female [...] Drop in both eyes once daily. vit C,M-Cv-guysn-lutein-zeaxan (PRESERVISION AREDS 2) 406-830-54-1 wt-rfor-sh-mg cap Take 1 tablet by mouth twice [...] CULTURE Tony Soares MD documented in this encounterOhiohealth Shelby Hospital08-08-2022 Miscellaneous Notes* Telephone Encounter - Bridget [...] improved after completing abx. documented in this encounterOhiohealth Shelby Hospital08-05-2022 Miscellaneous Notes* Telephone Encounter - Beatriz Isaac LPN - 12/05/2021 10:21 AM EDT Phoned patient 12/04/21 at [facility] to be sure she understood there were 2 Rx's sent to the pharmacy. Patient voiced understanding. * Telephone Encounter - Liv Dwyer RN - 12/04/2021 4:34 PM EDT Pt called and is notified of providers results and instructions from his office visit, did not see any new orders. Pt voices understanding. She states if PCPs office wants to call her back she will have her phone on her and she won't be leaving for vacation until 1200 tomorrow. Liv Dwyer RN * Telephone Encounter - Beatriz Isaac LPN - 12/04/2021 3:17 PM EDT Phoned patient and VM left regarding result of urine dip and new orders as well as PCP recommendations. Advised patient to call with any questions. documented in this encounterOhiohealth Shelby Hospital08-04-2022 Miscellaneous Notes* Telephone Encounter - Tony [...] in urine 9. :no Protocols used: URINARY [id number], URINATION PAIN - [id number] documented in this encounterOhiohealth Shelby Hospital08-04-2022 Miscellaneous Notes* Telephone Encounter - Lynette [...] 2 weeks. Please advise. documented in this encounterOhiohealth Shelby Hospital06-29-2022 Miscellaneous Notes* Telephone Encounter - Amebr Costa Pss - 10/29/2021 10:33 AM EDT Patient [...] patient. Amber Gant Pss documented in this encounterOhiohealth Shelby Hospital06-16-2022 Miscellaneous Notes* Telephone Encounter - Lo Cardoso Pss - 10/16/2021 8:44 AM EDT Pharmacy verified in [facility] Patient has been identified by name [...] advise. Lo Cardoso Pss documented in this encounterOhiohealth Shelby Hospital05-25-2022 History of Present illness Narrative* Tony Soares MD - 09/24/2021 3:27 PM EDT Chief Complaint Patient presents with: Foot Pain (Midfoot): x 1 week HPI Jil Díaz is a 81 year old female [...] her it was arthritis. Given medrol dose misty which did seem tohelp the pain some. [...] Drop in both eyes once daily. vit C,U-Qr-oqsmw-lutein-zeaxan (PRESERVISION AREDS 2) 422-430-38-1 qg-ummi-cc-mg cap Take 1 tablet by mouth twice [...] weeks. Tony Soares MD documented in this encounterOhiohealth Shelby Hospital05-04-2022 Miscellaneous Notes* Telephone Encounter - Lillie [...] differently. Meme Gant LPN documented in this encounterOhiohealth Shelby Hospital05-03-2022 Miscellaneous Notes* Telephone Encounter - TORRI [...] Thanks, Drea Colon APRN.COY documented in this encounterOhiohealth Shelby Hospital05-02-2022 History of Present illness Narrative* Tony Soares MD - 09/01/2021 11:10 AM EDT Chief Complaint Patient presents with: 6 Month Exam HPI Jil Díaz is a 81 year old female who presents here today for 6 month follow up. Patient has been in good health since last OV without recurrent falls. Lacerations on left foreheadand left knee have healed well. Still has mild bruising/discoloration over left forehead. 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 Has rx, [...] PAST SURGICAL HISTORY Procedure Laterality Date APPENDECTOMY 1969 CATARACT EXTRACTION HX Bilateral 2012 CATARACT SURGERY, [...] Drop in both eyes once daily. vit C,B-Iu-jlxlu-lutein-zeaxan (PRESERVISION AREDS 2) 018-665-78-1 nu-jfld-vm-mg cap Take 1 tablet by mouth twice [...] not taking: Reported on 07/07/2021) EPINEPHrine (EPIPEN 2-MISTY) 0.3 mg/0.3 mL auto-injector INJECT 0.3 ML [...] months. Tony Soares MD documented in this encounterOhiohealth Shelby Hospital04-12-2022 Miscellaneous Notes* Telephone Encounter - Kyra Norris LPN - 08/12/2021 4:35 PM EDT APPROVED until further notice. Briana Norris LPN * Telephone Encounter - Kyra Norris LPN - 08/07/2021 3:15 PM EDT Prior Authorization has been completed online at [employer] for Hydroxyzine, will await response. SWIFT- [id number] Please keep encounter open until final decision has been received and documented from insurance company. Briana Norris LPN documented in this encounterOhiohealth Shelby HospitalEvalumiddletown emergency department note* Diagnosis Thinning hair- Primary Alopecia, unspecified [...] of cerebral infarction documented in this encounter [facility]Evaluation [facility]* Diagnosis Plantar fasciitis- Primary Plantar fascial fibromatosis documented in this encounter [facility]Evaluation [facility]* Diagnosis Recurrent UTI (urinary tract infection)- Primary Urinary tract infection, site not specified Dysuria documented in this encounter [facility]* Diagnosis LLQ pain- Primary Abdominal pain, left lower quadrant Epigastric pain Abdominal pain, epigastric documented in this encounter [facility]* Diagnosis Burning with urination- Primary Dysuria documented in this encounter [facility]* Diagnosis Primary hypertension- Primary Unspecified essential hypertension Post herpetic neuralgia 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 Heart murmur Undiagnosed cardiac murmurs Gastroesophageal reflux disease with esophagitis, unspecified whether hemorrhage Hyperlipidemia, unspecified hyperlipidemia type Nonrheumatic aortic valve stenosis Aortic valve disorders Shoulder blade pain Disorder of bone and cartilage, unspecified documented in this encounter [facility]Eval[facility]* Diagnosis Chronic kidney disease, [...] of cerebral infarction [facility]* Diagnosis Dysuria- Primary documented in this encounter [facility]* Diagnosis Onset Date Resolution Status LLQ abdominal pain chronic [facility] Work Phone: Evaluation note* Diagnosis Onset Date Resolution Status LLQ abdominal pain chronic Essential (primary) hypertension chronic Nonrheumatic aortic (valve) insufficiency chronic [facility] Work Phone: Evaluation note* Diagnosis Primary hypertension- Primary Unspecified essential hypertension documented in this encounter [facility]* Diagnosis Primary hypertension- Primary Unspecified essential hypertension documented in this encounter [facility] note* Diagnosis Onset Date Resolution Status Diarrhea acute Abnormal abdominal CT scan c hronic Chronic constipation chronic [facility] Work Phone: Evaluation note* Diagnosis Primary hypertension- Primary Unspecified essential [...] unspecified type (HCC) documented in this encounter [facility]* Diagnosis Acute cough- Primary documented in this encounter [facility] note* Diagnosis Onset Date Resolution Status Diarrhea acute Abnormal abdominal CT scan c hronic Chronic constipation chronic Acute sinusitis acute Dyspnea on exertion acute Irregular heart rhythm acute Essential (primary) hypertension chronic Hyperlipidemia chronic Nonrheumatic aortic (valve) stenosis chronic Nonrheumatic mitral (valve) insufficiency chronic Urinary tract infection none active [facility] Work Phone: Evaluation note* Diagnosis Onset Date Resolution Status Diarrhea acute Abnormal abdominal CT scan c hronic Chronic constipation chronic Acute sinusitis acute Dyspnea on exertion acute Irregular heart rhythm acute Essential (primary) hypertension chronic Hyperlipidemia chronic Nonrheumatic aortic (valve) stenosis chronic Nonrheumatic mitral (valve) insufficiency chronic Urinary tract infection none active Cystitis acute Dysuria acute [facility] Work Phone: Evaluation note* Diagnosis Onset Date Resolution Status Diarrhea acute Abnormal abdominal CT scan c hronic Chronic constipation chronic Acute sinusitis acute Dyspnea on exertion acute Irregular heart rhythm acute Essential (primary) hypertension chronic Hyperlipidemia chronic Nonrheumatic aortic (valve) stenosis chronic Nonrheumatic mitral (valve) insufficiency chronic Urinary tract infection none active Cystitis acute Dysuria acute Atrial fibrillation acute Dyspnea on exertion acute Essential (primary) hypertension chronic Hyperlipidemia chronic Nonrheumatic aortic (valve) stenosis chronic Nonrheumatic mitral (valve) insufficiency chronic [facility] Work Phone: Evaluation note* Diagnosis Injury of head, initial encounter documented [facility] this encounter [facility]* Diagnosis Skin tear of hand without complication, left, initial encounter- Primary Noninfected skin tear of left lower extremity, initial encounter Injury of head, initial encounter Fall in home, subsequent encounter documented in this encounter [facility]* Diagnosis Visit for screening mammogram- Primary Other screening mammogram [facility] Diagnosis Skin tear of hand without complication, left, initial encounter- Primary Noninfected skin tear of left lower extremity, initial encounter Fall in home, subsequent encounter [facility]* Diagnosis Fall from stool- Primary Injury of head, initial encounter Pain of right heel Pain in limb Noninfected skin tear of left lower extremity, initial encounter [facility]* Diagnosis Onset Date Resolution Status Acute sinusitis acute Dyspnea on exertion acute Irregular heart rhythm acute Essential (primary) hypertension chronic Hyperlipidemia chronic Nonrheumatic aortic (valve) stenosis chronic Nonrheumatic mitral (valve) insufficiency chronic Urinary tract infection none active Cystitis acute Dysuria acute Atrial fibrillation acute Dyspnea on exertion acute Essential (primary) hypertension chronic Hyperlipidemia chronic Nonrheumatic aortic (valve) stenosis chronic Nonrheumatic mitral (valve) insufficiency chronic [facility] Work Phone: Evaluation note* Diagnosis Onset Date Resolution Status Dyspnea on exertion acute Irregular heart rhythm acute Essential (primary) hypertension chronic Hyperlipidemia chronic Nonrheumatic aortic (valve) stenosis chronic Nonrheumatic mitral (valve) insufficiency chronic Urinary tract infection none active Cystitis acute Dysuria acute Atrial fibrillation acute Dyspnea on exertion acute Essential (primary) hypertension chronic Hyperlipidemia chronic Nonrheumatic aortic (valve) stenosis chronic Nonrheumatic mitral (valve) insufficiency chronic [facility] Work Phone: Evaluation note* Diagnosis Onset Date Resolution Status Urinary tract infection none active Cystitis acute Dysuria acute Atrial fibrillation acute Dyspnea on exertion acute Essential (primary) hypertension chronic Hyperlipidemia chronic Nonrheumatic aortic (valve) stenosis chronic Nonrheumatic mitral (valve) insufficiency chronic [facility] Work Phone: Evaluation note* Diagnosis Gait instability- Primary Abnormality of gait documented [facility] this encounter [facility]* Diagnosis Gait instability- Primary Abnormality of gait [facility]* Diagnosis Sinus pressure- Primary Other diseases of nasal cavity and sinuses Seasonal allergies Allergic rhinitis, cause unspecified Epistaxis Dysuria documented [facility] this encounter [facility]* Diagnosis Gait instability- Primary Abnormality of gait documented in this encounter [facility]* Diagnosis Acute left flank pain- Primary Abdominal pain, unspecified site [facility] [place] [facility]* Diagnosis Balance problem- Primary Other symptoms involving nervous and musculoskeletal systems Generalized weakness Other malaise and fatigue [facility] Diagnosis Acute left flank pain Abdominal pain, unspecified site documented in this encounter [facility]* Diagnosis Acute left flank pain- Primary Abdominal pain, unspecified site Primary hypertension Unspecified essential hypertension Atrial fibrillation, unspecified type (HCC) Hyperlipidemia, unspecified hyperlipidemia type Chronic kidney disease, stage 3a (HCC) Renal cysts, acquired, bilateral Acquired cyst of kidney Pulmonary arterial hypertension (HCC) Other chronic pulmonary heart diseases Bilateral carotid artery disease, unspecified type (HCC) Primary insomnia Persistent disorder of initiating or maintaining sleep Post herpetic neuralgia 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 [facility] Diagnosis Balance problem- Primary Other symptoms involving nervous and musculoskeletal systems Gait instability Abnormality of gait Generalized weakness Other malaise and fatigue [facility] Diagnosis Skin tear of left forearm without complication, initial encounter- Primary documented in this encounter [facility]* Diagnosis Injury of head, subsequent encounter- Primary Laceration of left lower extremity, initial encounter Pain and swelling of lower leg, left [facility] Diagnosis Fall in home, subsequent encounter- Primary Injury of head, subsequent encounter Headache, unspecified headache type Left hip pain Pain in joint, pelvic region and thigh Acute left-sided low back pain with left-sided sciatica Left hip pain Pain in joint, pelvic region and thigh Acute left-sided low back pain with left-sided sciatica documented in this encounter [facility]* Diagnosis Left hip pain Pain in joint, pelvic region and thigh Acute left-sided low back pain with left-sided sciatica [facility] Diagnosis Memory loss- Primary Hallucinations Confusion Unspecified psychosis Urinary frequency [facility] Diagnosis Onset Date Resolution Status Diarrhea acute Abnormal abdominal CT scan c hronic Chronic constipation chronic Acute sinusitis acute Dyspnea on exertion acute Irregular heart rhythm acute Essential (primary) hypertension chronic Hyperlipidemia chronic Nonrheumatic aortic (valve) stenosis chronic Nonrheumatic mitral (valve) insufficiency chronic [facility] Work Phone: Evaluation note* Diagnosis Cognitive impairment, mild, so stated- Primary Mild cognitive impairment, so stated Gait disturbance Abnormality of gait documented in this encounter [facility]* Diagnosis Hallucinations- Primary Impaired cognition Unspecified persistent mental disorders due to conditions classified elsewhere documented in this encounter [facility] note* Diagnosis Gait disturbance Abnormality of gait [facility] Diagnosis Visual hallucinations- Primary Psychophysical visual disturbances Hallucinations Impaired cognition Unspecified persistent mental disorders due to conditions classified elsewhere Smooth tongue Atrophy of tongue papillae Visuospatial deficit [R41.842] Visuospatial deficit documented in this encounter [facility]* Diagnosis COVID-19 virus infection Bacterial pneumonia Bacterial pneumonia, unspecified Elbow pain, right Pain in joint, upper arm [facility] Closed nondisplaced fracture of head of right radius, initial encounter- Primary [facility] Diagnosis COVID-19 virus infection- Primary Bacterial pneumonia Bacterial pneumonia, unspecified Hypoxia Hypoxemia Fall in home, subsequent encounter Traumatic injury of head, subsequent encounter Scalp hematoma, subsequent encounter Elbow pain, right Pain in joint, upper arm Multiple skin tears Open wound(s) (multiple) of unspecified site(s), without mention of complication At high risk for falls Personal history of fall Memory impairment Memory loss Age-related physical debility Senility without mention of psychosis Vitamin D deficiency Unspecified vitamin D deficiency COVID-19 virus infection Bacterial pneumonia Bacterial pneumonia, unspecified Elbow pain, right Pain in joint, upper arm documented in this encounter [facility]* Diagnosis Medicare annual wellness visit, subsequent- Primary Routine general medical examination at a health care facility Atrial fibrillation, unspecified type (HCC) Primary hypertension Unspecified essential hypertension Stage 3 chronic kidney disease, unspecified whether stage 3a or 3b CKD (HCC) Cognitive impairment, mild, so stated Mild cognitive impairment, so stated Age-related physical debility Senility without mention of psychosis Vitamin D deficiency Unspecified vitamin D deficiency Gastroesophageal reflux disease with esophagitis, unspecified whether hemorrhage Hyperlipidemia, unspecified hyperlipidemia type Pulmonary arterial hypertension (HCC) Other chronic pulmonary heart diseases Mixed urge and stress incontinence Mixed incontinence urge and stress (male)(female) [facility] Author Stan Ng [facility] November 12, 2022 11:53am Note Date/Time November 12, 2022 11:5 3am [facility] Medical Records Department [address] [place] [id number] History & Physical Exam 11/12/22 1152 MR#: [id number] Acct: [id number] Name: JIL DÍAZ Rep #:[id number] : 1940 82 From: Stan Ng DO PCP: Dr. Bjorn Soares MD [facility] Location: [place] [address] History and Physical Date of Admission: 11/12/22 JIL DÍAZ, is a 82 F who presents to the office today for PCP OV 5.8.23 as 6m f/u with LLQ abdominal pain 2-3 days/week and mildly elevated inflammatory markers; normal CT. GERD well managed with Pepcid. Additional history glaucoma, heart murmur, mitral regurgitation, hyperlipidemia,HTN, insomnia, CKD III. ? Biochemical CBC, CMP, LFT, lipase without pertinent abnormality. ? ESR H26, CRP H1, Triglycerides H192, LDL H38 ? CT abd/pel 08.20.22 s/p cholecystectomy; renal lesions/cysts. *BGI 10.20.22 with LLQ abdominal pain for the last several months presenting intermittently, initially a minor pain and worsened in severity. BM occur each day without difficulty; eat six prunes each morning for many years. ROS Const Constitutional: No other (6 system ROS completed with pertinent findings in the HPI otherwise normal.) Exam Const General: cooperative and comfortable Nutritional Appearance: average body habitus and well nourished HENMT Head: normal to inspection Ears: hearing grossly normal bilaterally Nose: external nose normal Face and sinus: normal facial exam Mouth: oral mucosae normal Throat: posterior oropharynx normal Eyes General: appearance normal, both eyes and all related structures Neck Neck: normal visual inspection Chest Chest palpation & inspection: normal inspection of the chest and normal palpation of entire chest wall Resp Effort & Inspection: normal respiratory effort Auscultation: Bilateral: Clear to Auscultation Cardio Palpation: normal PMI Rate: regular rate Rhythm: regular rhythm GI Inspection: normal to inspection Auscultation: normal bowel sounds Percussion: normal to percussion Palpation: no hepatosplenomegaly Skin General: no rashes or lesions noted Neuro General: patient alert Extrem General: normal to inspection Psych Affect: normal affect Quality Reporting Tobacco Screening ([facility]) Smoking Status: Former smoker Assessment and Plan Assessment and Plan (1) LLQ abdominal pain: Status: Chronic Plan: The differential diagnosis for left lower quadrant pain does include chronic idiopathic constipation. She does eat 6 prunes a day and it does allow her to have a bowel movement. However after reviewing her CAT scan that she had on 12/20/2021 she did this have a lot of stool burden along with some mild diverticular disease even though it was not reported in the CAT scan. Also needs of his diagnosis would be low-grade ischemia due to the calcium burden that was seen on her CT scan on 12/20/2021. 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 Office examination I did not feel like it was coming from her left hip. Also did not appreciate any hernia. There was a little bit of discomfort in the left lower quadrant after palpating her spinous processes. Hopefully will be able to elicit more when we get a CT scan and MRI. For now all I will put her on Fiber Choice 2 tabs at night and she will continue the prunes during the day. I have examined the patient and the H&P has been reviewed. There are no clinicalchanges since date of exam. 11/12/22 1153 <Electronically signed by Stan Ng DO> Cosigner Signature (if applicable): CC: Dr. Bjorn Soares MD; Stan Ng DO~ Signed ADDENDUM by Stan Ng DO on 11/12/22 at 1153 Addendum She had a repeat CT scan abdomen pelvis and it showed some thickening in the transverse colon possibly secondary to underlying malignancy. She will undergo colonoscopy. 11/12/22 115<Electronically signed by Stan Ng DO> Cosigner Signature (if applicable): cc: Dr. Bojrn Soares MD; Stan Ng DO ~* Signed [facility] Work Phone: History and physical note Author Stan Ng [facility] February 17, 2023 7:42am Note Date/Time February 17, 2023 7 :40am [facility] Medical Records Department [address] [place] [address] History & Physical Exam 02/17/23 0739 MR#: [id number] Acct: [id number] Name: JIL DÍAZ Rep #:[id number] : 1940 82 From: Stan Ng DO PCP: Dr. Bjorn Soares MD [facility] Location: [place] [address] History and Physical Date of Admission: 02/17/23 82 F who presents to the office today for PCP OV 5.8.23 as 6m f/u with LLQ abdominal pain 2-3 days/week and mildly elevated inflammatory markers; normal CT. GERD well managed with Pepcid. Additional history glaucoma, heart murmur, mitral regurgitation, hyperlipidemia,HTN, insomnia, CKD III. ? Biochemical CBC, CMP, LFT, lipase without pertinent abnormality. ? ESR H26, CRP H1, Triglycerides H192, LDL H38 ? CT abd/pel 08.20.22 s/p cholecystectomy; renal lesions/cysts. *BGI 10.20.22 with LLQ abdominal pain for the last several months presenting intermittently, initially a minor pain and worsened in severity. BM occur each day without difficulty; eat six prunes each morning for many years. ROS Const Constitutional: No other (6 system ROS completed with pertinent findings in the HPI otherwise normal.) Exam Const General: cooperative and comfortable Nutritional Appearance: average body habitus and well nourished HENMT Head: normal to inspection Ears: hearing grossly normal bilaterally Nose: external nose normal Face and sinus: normal facial exam Mouth: oral mucosae normal Throat: posterior oropharynx normal Eyes General: appearance normal, both eyes and all related structures Neck Neck: normal visual inspection Chest Chest palpation & inspection: normal inspection of the chest and normal palpation of entire chest wall Resp Effort & Inspection: normal respiratory effort Auscultation: Bilateral: Clear to Auscultation Cardio Palpation: normal PMI Rate: regular rate Rhythm: regular rhythm GI Inspection: normal to inspection Auscultation: normal bowel sounds Percussion: normal to percussion Palpation: no hepatosplenomegaly Skin General: no rashes or lesions noted Neuro General: patient alert Extrem General: normal to inspection Psych Affect: normal affect Quality Reporting Tobacco Screening ([facility]) Smoking Status: Former smoker Assessment and Plan Assessment and Plan (1) LLQ abdominal pain: Status: Chronic Plan: The differential diagnosis for left lower quadrant pain does include chronic idiopathic constipation. She does eat 6 prunes a day and it does allow her to have a bowel movement. However after reviewing her CAT scan that she had on 12/20/2021 she did this have a lot of stool burden along with some mild diverticular disease even though it was not reported in the CAT scan. Also needs of his diagnosis would be low-grade ischemia due to the calcium burden that was seen on her CT scan on 12/20/2021. 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 Office examination I did not feel like it was coming from her left hip. Also did not appreciate any hernia. There was a little bit of discomfort in the left lower quadrant after palpating her spinous processes. Hopefully will be able to elicit more when we get a CT scan and MRI. For now all I will put her on Fiber Choice 2 tabs at night and she will continue the prunes during the day. (2) abnormal CT scan: She did have a CT scan abdomen pelvis recently and 12/20/2022 that showed : There is a 1.6 cm rounded filling defect in the inferiorportion of the duodenum. A polyp should be ruled out. We will perform an upper endoscopy to evaluate this abnormality seen on CT scan. I have examined the patient and the H&P has been reviewed. There are no clinicalchanges since date of exam. 02/17/23 0742 <Electronically signed by Stan Ng DO> Cosigner Signature (if applicable): CC: Dr. Bjorn Soares MD; Stan Ng DO~ Signed [facility] Work Phone: Hospital Discharge instructions Additional Instructions Take your normal bedtime medicines. Follow-up with your primary care doctor [facility] Work Phone: Hospital Discharge instructions Additional Instructions Call Dr. Lucas's [facility] Reason for referral (narrative)* Diagnostic Procedure Only (Urgent) - Authorized Specialty Diagnoses / Procedures Referred By Contac t Referred To Contact US IMAGING Diagnoses Acute left flank pain Procedures US KIDNEY/BLADDER US RETROPERITONEAL REAL TIME W/IMAGE COMPLETE Tony Soares MD [address] [place] [address] [place] [address] Referral ID Status Reason Start Date Expiration Date Visits Requested Visits Authorized [id number] Authorized Auto-Generat ed Referral 09/06/2023 10/05/2024 1 1 [facility] for referral (narrative)* Diagnostic Procedure Only (Urgent) - Closed Specialty Diagnoses / Procedures Referred By Contac t Referred To Contact US IMAGING Diagnoses Acute left flank pain Procedures US KIDNEY/BLADDER US RETROPERITONEAL REAL TIME W/IMAGE COMPLETE Tony Soares MD [address] [place] [address] [place] [address] Referral ID Status Reason Start Date Expiration Date V isits Requested Visits Authorized [id number] Closed Auto-Generate d Referral 09/06/2023 10/05/2024 1 1 [facility] for referral (narrative)* Diagnostic Procedure Only (Routine) - Closed Specialty Diagnoses / Procedures Referred By Contac t Referred To Contact XR IMAGING Diagnoses Acute left-sided low back pain with left-sided sciatica Procedures XR LUMBAR GENERAL 3V AP/LAT/L5-S1 RADEX SPINE LUMBOSACRAL 2/[place] [address] [place] [address] [place] [address] Referral ID Status Reason Start Date Expiration Date V isits Requested Visits Authorized [id number] Closed Auto-Generate d Referral 01/26/2024 02/24/2025 1 1 * Diagnostic Procedure Only (Routine) - Closed Specialty Diagnoses / Procedures Referred By Contac t Referred To Contact XR IMAGING Diagnoses Left hip pain Procedures XR HIP GENERAL 3V PELV/AP/LAT LEFT RADEX HIP UNILATERAL WITH PELVIS 2-3 VIEWS Tony Soares MD [address] [place] [address] [place] [address] Referral ID Status Reason Start Date Expiration Date V isits Requested Visits Authorized [id number] Closed Auto-Generate d Referral 01/26/2024 02/24/2025 1 1 [facility] for referral (narrative)No reason for referral information [facility] Work Phone: Reason for visit Narrative* Diagnostic Procedure Only (Routine) - Closed Specialty Diagnoses / Procedures Referred By Contac t Referred To Contact XR IMAGING Diagnoses Acute left-sided low back pain with left-sided sciatica Procedures XR LUMBAR GENERAL 3V AP/LAT/L5-S1 RADEX SPINE LUMBOSACRAL 2/3 VIEWS Tony Soares MD [address] [place] [address] [place] [address] Referral ID Status Reason Start Date Expiration Date V isits Requested Visits Authorized [id number] Closed Auto-Generate d Referral 01/26/2024 02/24/2025 1 1 [facility] for visit Narrative* Diagnostic Procedure Only (Urgent) - Closed Specialty Diagnoses / Procedures Referred By Contac t Referred To Contact XR IMAGING Diagnoses Elbow pain, right Procedures XR ELBOW SPECIAL VIEWS AP/LAT/OTHER RIGHT RADEX ELBOW COMPLETE MINIMUM 3 VIEWS Tony Soares MD [address] [place] [address] Phone: tel: fax: [place] [address] Referral ID Status Reason Start Date Expiration Date V isits Requested Visits Authorized [id number] Closed Auto-Generate d Referral 06/27/2024 07/27/2025 1 1 [facility] Advance Directives No Advanced Directives Records FoundDocuments on File Type Date Recorded 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 Advance Directive(s) 02/15/2019 8:21 AM Advance Directive Response Recorded Date/ Time Living Will Yes October 20, 2022 8:54am Power of Facetor Yes October 20 8:54am Advance Directive Response Recorded Date/ Time Name of Medical Power of Facetor SON November 11, 2022 10:42am Living Will Yes November 11, 2022 10:42am Power of Facetor Yes November 11 10:42am Advance Directive Response Recorded Date/ Time Name of Medical Power of Facetor SON November 11, 2022 10:42am Name of Medical Power of Facetor SON February 11, 2023 9:51am Living Will Yes February 11 9:51am Power of Facetor Yes February 11, 2023 9:51am Advance Directive Response Recorded Date/ Time Name of Medical Power of Facetor SON November 11, 2022 9:42am Name of Medical Power of Facetor SON February 11, 2023 8:51am Living Will Yes February 11 8:51am Power of Facetor Yes February 11, 2023 8:51am Advance Directive Response Recorded Date/ Time Name of Medical Power of Facetor james mckee May 17, 2023 7:37pm Living Will Yes May 17 7:37pm Power of Facetor Yes May 17, 2023 7:37pm Name of Medical Power of Facetor SON February 11, 2023 8:51am Advance Directive Response Recorded Date/ Time Name of Medical Power of Facetor james mckee May 17, 2023 7:37pm Living Will No June 30 9:08am Power of Facetor No June 30, 2023 9:08am Advance Directive Response Recorded Date/ Time Name of Medical Power of Facetor jamse mckee May 17, 2023 8:37pm Living Will No June 30 10:08am Power of Facetor No June 30, 2023 10:08am Advance Directive Response Recorded Date/ Time Name of Medical Power of Facetor SON February 11, 2023 8:51am Living Will Yes February 11 8:51am Power of Facetor Yes February 11, 2023 8:51am Advance Directive Response Recorded Date/ Time Living Will No January 01 5:55pm Do you have a Healthcare Pow er of Facetor? No January 02, 2024 5:55pm Living Will No June 15 7:16pm Do you have a Healthcare Pow er of Facetor? No June 15, 2024 7:16pm Living Will No April 05 11:32am Do you have a Healthcare Pow er of Facetor? No April 05, 2024 11:32am Living Will Yes June 18 10:29pm Do you have a Healthcare Pow er of Facetor? Yes June 18, 2024 10:29pm Name of Medical Power of Facetor kie díaz June 18, 2024 10:29pm Living Will Yes August 01, 2024 12:24pm Do you have a Healthcare Pow er of Facetor? Yes August 01, 2024 12:24pm Name of Medical Power of Facetor James alicea August 01, 2024 12:24pm Advance Directive Response Recorded Date/ Time Living Will No June 15 7:16pm Do you have a Healthcare Pow er of Facetor? No June 15, 2024 7:16pm Do you have a Healthcare Pow er of Facetor? Yes September 09, 2024 6:12pm Living Will Yes June 18 10:29pm Do you have a Healthcare Pow er of Facetor? Yes June 18, 2024 10:29pm Name of Medical Power of Facetor ike díaz June 18, 2024 10:29pm Living Will Yes August 01, 2024 12:24pm Do you have a Healthcare Pow er of Facetor? Yes August 01, 2024 12:24pm Name of Medical Power of Facetor James alicea August 01, 2024 12:24pm Reason for Referral Specialty Diagnoses / Procedures Referred By Contac t Referred To Contact Gastroenterology Diagnoses LLQ abdominal pain Procedures CONSULT TO GASTROENTEROLOGY OFFICE[facility] 60-74 MINUTES Tony Soares MD [facility] [place] [address] Referral ID Status Reason Start Date Expiration Date Visits Requested Visits Authorized [id number] Authorized PCP Requested Referral 09/07/2022 09/07/2023 1 1 Specialty Diagnoses / Procedures Referred By Contac t Referred To Contact CT IMAGING Diagnoses Injury of head, initial encounter Procedures CT BRAIN WO IVCON CT HEAD/BRAIN W/O CONTRAST MATERIAL Tony Soares MD [address] [place] [address] [place] [address] Referral ID Status Reason Start Date Expiration Date V isits Requested Visits Authorized [id number] Closed Auto-Generate d Referral 07/02/2023 07/31/2024 1 1 Specialty Diagnoses / Procedures Referred By Contac t Referred To Contact CT IMAGING Diagnoses Injury of head, initial encounter Procedures CT BRAIN WO IVCON CT HEAD/BRAIN W/O CONTRAST MATERIAL Drea Colon APRN.CNP [address] [place] [address] [place] [address] Referral ID Status Reason Start Date Expiration Date Visits Requested Visits Authorized [id number] Pending Review Auto-Generat ed Referral 07/21/2023 08/19/2024 1 1 Specialty Diagnoses / Procedures Referred By Contac t Referred To Contact [facility] Diagnoses Fall in home, subsequent encounter Procedures CONSULT TO PHYSICAL THERAPY PHYSICAL THERAPY EVALUATION HIGH COMPLEX 45 MINS Tony Soares MD [address] [place] [id number] [facility] [place] [phone] Referral ID Status Reason Start Date Expiration Date Visits Requested Visits Authorized [id number] Authorized PCP Requested Referral Auto-Generate d Referral 01/26/2024 01/25/2025 99 99 Specialty Diagnoses / Procedures Referred By Contac t Referred To Contact [facility] Diagnoses Left hip pain Acute left-sided low back pain with left-sided sciatica Procedures CONSULT TO PHYSICAL THERAPY PHYSICAL THERAPY EVALUATION HIGH COMPLEX 45 MINS Tony Soares MD [address] [place] [address] [place] [phone] Referral ID Status Reason Start Date Expiration Date Visits Requested Visits Authorized [id number] Authorized PCP Requested Referral Auto-Generate d Referral 01/26/2024 01/25/2025 99 99 Specialty Diagnoses / Procedures Referred By Contac t Referred To Contact XR IMAGING Diagnoses Acute left-sided low back pain with left-sided sciatica Procedures XR LUMBAR GENERAL 3V AP/LAT/L5-S1 RADEX SPINE LUMBOSACRAL 2/3 VIEWS Tony Soares MD [address] [place] [address] [place] [address] Referral ID Status Reason Start Date Expiration Date V isits Requested Visits Authorized [id number] Closed Auto-Generate d Referral 01/26/2024 02/24/2025 1 1 Specialty Diagnoses / Procedures Referred By Contac t Referred To Contact XR IMAGING Diagnoses Left hip pain Procedures XR HIP GENERAL 3V PELV/AP/LAT LEFT RADEX HIP UNILATERAL WITH PELVIS 2-3 VIEWS Tony Soares MD [address] [place] [address] [place] [address] Referral ID Status Reason Start Date Expiration Date V isits Requested Visits Authorized [id number] Closed Auto-Generate d Referral 01/26/2024 02/24/2025 1 1 Specialty Diagnoses / Procedures Referred By Contac t Referred To Contact [facility] Diagnoses Gait disturbance Procedures CONSULT TO PHYSICAL THERAPY PHYSICAL THERAPY EVALUATION HIGH COMPLEX 45 MINS Podlogar, Drea, HYDROCHLORIC ACID OPERATOR.ASSISTED LIVING CARE MANAGER [address] [place] [address] [facility] [place] [address] [place] [address] Referral ID Status Reason Start Date Expiration Date Visits Requested Visits Authorized [id number] Authorized PCP Requested Referral Auto-Generate d Referral 04/10/2024 04/10/2025 99 99 Specialty Diagnoses / Procedures Referred By Contac t Referred To Contact MR IMAGING Diagnoses Cognitive impairment, mild, so stated Procedures MRI BRAIN WO/W IVCON MRI BRAIN BRAIN STEM W/O W/CONTRAST MATERIAL Podlogar, Drea, HYDROCHLORIC ACID OPERATOR.ASSISTED LIVING CARE MANAGER [address] [place] [address] [place] [address] Referral ID Status Reason Start Date Expiration Date Visits Requested Visits Authorized [id number] Authorized Auto-Generat ed Referral 04/10/2024 05/10/2025 1 1 Specialty Diagnoses / Procedures Referred By Contac t Referred To Contact Neurology Diagnoses Hallucinations Impaired cognition Procedures CONSULT TO NEUROLOGY OFFICE/OUTPATIENT [facility] MDM 60 MINUTES Podlogar, EDUARDO ShepardN.ASSISTED LIVING CARE MANAGER [address] [place] [address] Referral ID Status Reason Start Date Expiration Date Visits Requested Visits Authorized [id number] Authorized PCP Requested Referral 04/12/2025 1 1 Chief Complaint and Reason for Visit Chief Complaint Consult Intervertebral disc disorders with radiculopathy, Left lower quadrant pain Reason for Visit LLQ abdominal pain Chief Complaint Consult Intervertebral disc disorders with radiculopathy, Left lower quadrant pain 1 Y FU Reason for Visit LLQ abdominal pain Essential (primary) hypertension Nonrheumatic aortic (valve) insufficiency Chief Complaint Consult Intervertebral disc disorders with radiculopathy, Left lower quadrant pain 1 Y FU E ORDERS MURMUR Reason for Visit LLQ abdominal pain Essential (primary) hypertension Nonrheumatic aortic (valve) insufficiency Chief Complaint Consult Intervertebral disc disorders with radiculopathy, Left lower quadrant pain 1 Y FU E ORDERS MURMUR Left lower quadrant pain Reason for Visit LLQ abdominal pain Essential (primary) hypertension Nonrheumatic aortic (valve) insufficiency Chief Complaint E ORDERS MURMUR Left lower quadrant pain 4 MO FU INT LABSPEC Reason for Visit Diarrhea Abnormal abdominal CT scan Chronic constipation Chief Complaint 4 MO FU INT LABSPEC SINUS PRESSURE 5 m fu EORDER DYSPNEA Urinary tract infection diarrhea Reason for Visit Diarrhea Abnormal abdominal CT scan Chronic constipation Acute sinusitis Dyspnea on exertion Irregular heart rhythm Essential (primary) hypertension Hyperlipidemia Nonrheumatic aortic (valve) stenosis Nonrheumatic mitral (valve) insufficiency Urinary tract infection Chief Complaint 4 MO FU INT LABSPEC SINUS PRESSURE 5 m fu EORDER DYSPNEA Urinary tract infection diarrhea CONCERN FOR UTI Reason for Visit Diarrhea Abnormal abdominal CT scan Chronic constipation Acute sinusitis Dyspnea on exertion Irregular heart rhythm Essential (primary) hypertension Hyperlipidemia Nonrheumatic aortic (valve) stenosis Nonrheumatic mitral (valve) insufficiency Urinary tract infection Cystitis Dysuria Chief Complaint 4 MO FU INT LABSPEC SINUS PRESSURE 5 m fu EORDER DYSPNEA Urinary tract infection diarrhea CONCERN FOR UTI 4-6 W FU laceration Reason for Visit Diarrhea Abnormal abdominal CT scan Chronic constipation Acute sinusitis Dyspnea on exertion Irregular heart rhythm Essential (primary) hypertension Hyperlipidemia Nonrheumatic aortic (valve) stenosis Nonrheumatic mitral (valve) insufficiency Urinary tract infection Cystitis Dysuria Atrial fibrillation Dyspnea on exertion Essential (primary) hypertension Hyperlipidemia Nonrheumatic aortic (valve) stenosis Nonrheumatic mitral (valve) insufficiency Chief Complaint SINUS PRESSURE 5 m fu EORDER DYSPNEA Urinary tract infection diarrhea CONCERN FOR UTI 4-6 W FU laceration HEAD INJURY Reason for Visit Acute sinusitis Dyspnea on exertion Irregular heart rhythm Essential (primary) hypertension Hyperlipidemia Nonrheumatic aortic (valve) stenosis Nonrheumatic mitral (valve) insufficiency Urinary tract infection Cystitis Dysuria Atrial fibrillation Dyspnea on exertion Essential (primary) hypertension Hyperlipidemia Nonrheumatic aortic (valve) stenosis Nonrheumatic mitral (valve) insufficiency Chief Complaint 5 m fu EORDER DYSPNEA Urinary tract infection diarrhea CONCERN FOR UTI 4-6 W FU laceration HEAD INJURY Reason for Visit Dyspnea on exertion Irregular heart rhythm Essential (primary) hypertension Hyperlipidemia Nonrheumatic aortic (valve) stenosis Nonrheumatic mitral (valve) insufficiency Urinary tract infection Cystitis Dysuria Atrial fibrillation Dyspnea on exertion Essential (primary) hypertension Hyperlipidemia Nonrheumatic aortic (valve) stenosis Nonrheumatic mitral (valve) insufficiency Chief Complaint DYSPNEA Urinary tract infection diarrhea CONCERN FOR UTI 4-6 W FU laceration HEAD INJURY Reason for Visit Urinary tract infect ion Cystitis Dysuria Atrial fibrillation Dyspnea on exertion Essential (primary) hypertension Hyperlipidemia Nonrheumatic aortic (valve) stenosis Nonrheumatic mitral (valve) insufficiency Chief Complaint DYSPNEA Urinary tract infection diarrhea CONCERN FOR UTI 4-6 W FU laceration HEAD INJURY URINARY COMPLAINTS Reason for Visit Urinary tract infect ion Cystitis Dysuria Atrial fibrillation Dyspnea on exertion Essential (primary) hypertension Hyperlipidemia Nonrheumatic aortic (valve) stenosis Nonrheumatic mitral (valve) insufficiency Chief Complaint 4 MO FU INT LABSPEC SINUS PRESSURE 5 m fu EORDER Reason for Visit Diarrhea Abnormal abdominal CT scan Chronic constipation Acute sinusitis Dyspnea on exertion Irregular heart rhythm Essential (primary) hypertension Hyperlipidemia Nonrheumatic aortic (valve) stenosis Nonrheumatic mitral (valve) insufficiency Chief Complaint Admit Date CONFUSION April 05, 2024 1 0:04am bowel changes April 17, 2024 1:34pm ACUTE HYPONIC RESPIRATORY FAILURE-MULTIF ACTORIAL June 15, 2024 5:43pm ACUTE HYPONIC RESPIRATORY FAILURE-MULTIF ACTORIAL June 16, 2024 8:44am ACUTE HYPONIC RESPIRATORY FAILURE-MULTIF ACTORIAL June 17, 2024 8:50am ACUTE HYPONIC RESPIRATORY FAILURE-MULTIF ACTORIAL June 18, 2024 9:13am FALL June 18, 2024 9:19pm fall August 01, 2024 12:0 8pm Reason for Visit Admit Date Chronic constipation April 17, 2024 1:34pm COVID-19 June 15, 2024 5:43pm Acute hypoxemic respiratory failure Febr uary 2024 5:43pm Acute left lumbar radiculopathy June 15, 2024 5:43pm Aortic stenosis June 15, 2024 5:43pm Atrial fibrillation June 15, 2024 5:43pm Hyperlipidemia June 15, 2024 5:43pm 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, 2024 5:43pm Chief Complaint Admit Date ACUTE HYPONIC RESPIRATORY FAILURE-MULTIF ACTORIAL June 15, 2024 5:43pm ACUTE HYPONIC RESPIRATORY FAILURE-MULTIF ACTORIAL June 16, 2024 8:44am ACUTE HYPONIC RESPIRATORY FAILURE-MULTIF ACTORIAL June 17, 2024 8:50am ACUTE HYPONIC RESPIRATORY FAILURE-MULTIF ACTORIAL June 18, 2024 9:13am FALL June 18, 2024 9:19pm fall August 01, 2024 12:0 8pm fu August 10, 2024 7:3 2am 1 Y FU September 04, 2024 8:21am CONFUSION September 09, 2024 5:48p m Reason for Visit Admit Date COVID-19 June 15, 2024 5:43pm Acute hypoxemic respiratory failure Febr uary 2024 5:43pm Acute left lumbar radiculopathy June 15, 2024 5:43pm Aortic stenosis June 15, 2024 5:43pm Atrial fibrillation June 15, 2024 5:43pm Hyperlipidemia June 15, 2024 5:43pm 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, 2024 5:43pm Anemia August 10, 2024 7:3 2am Constipation August 10, 2024 7:3 2am Weight loss August 10, 2024 7:3 2am Atrial fibrillation September 04, 2024 8:21am Essential (primary) hypertension August 8:21am Nonrheumatic aortic (valve) stenosis September 04, 2024 8:21am Nonrheumatic mitral (valve) insufficienc y September 04, 2024 8:21am Hyperlipidemia September 04, 2024 8:21am Family History No Family History Records Found Relationship Condition Age at Onset Recorded Date/T saraih mother Anemia Unknown Hypertension Unknown brother Hypertension Unknown grandfather Malignant neoplasm Unknown Summary Purpose Additional Source Comments Source Comments (unrecognize d section and content) In the event this informatio n is protected by the Federal Confidentiality of Alcohol and Drug Abuse Patient Records regulations: The Federal rules restrict any use of the information to criminally investigate or prosecute any alcohol or drug abuse patient.[facility] the event this information is protected by the Federal Confidentiality of Alcohol and Drug Abuse Patient Records regulations: The Federal rules restrict any use of the information to criminally investigate or prosecute any alcohol or drug abuse patient.[facility] HospitalIn the event this information is protected by the Federal Confidentiality of Alcohol and Drug Abuse Patient Records regulations: The Federal rules restrict any use of the information to criminally investigate or prosecute any alcohol or drug abuse patient.[facility] HospitalIn the event this information is protected by the Federal Confidentiality of Alcohol and Drug Abuse Patient Records regulations: The Federal rules restrict any use of the information to criminally investigate or prosecute any alcohol or drug abuse patient.[facility] HospitalIn the event this information is protected by the Federal Confidentiality of Alcohol and Drug Abuse Patient Records regulations: The Federal rules restrict any use of the information to criminally investigate or prosecute any alcohol or drug abuse patient.[facility] the event this information is protected by the Federal Confidentiality of Alcohol and Drug Abuse Patient Records regulations: The Federal rules restrict any use of the information to criminally investigate or prosecute any alcohol or drug abuse patient.[facility] HospitalIn the event this information is protected by the Federal Confidentiality of Alcohol and Drug Abuse Patient Records regulations: The Federal rules restrict any use of the information to criminally investigate or prosecute any alcohol or drug abuse patient.[facility] HospitalIn the event this information is protected by the Federal Confidentiality of Alcohol and Drug Abuse Patient Records regulations: The Federal rules restrict any use of the information to criminally investigate or prosecute any alcohol or drug abuse patient.[facility] the event this information is protected by the Federal Confidentiality of Alcohol and Drug Abuse Patient Records regulations: The Federal rules restrict any use of the information to criminally investigate or prosecute any alcohol or drug abuse patient.[facility] HospitalIn the event this information is protected by the Federal Confidentiality of Alcohol and Drug Abuse Patient Records regulations: The Federal rules restrict any use of the information to criminally investigate or prosecute any alcohol or drug abuse patient.[facility] HospitalIn the event this information is protected by the Federal Confidentiality of Alcohol and Drug Abuse Patient Records regulations: The Federal rules restrict any use of the information to criminally investigate or prosecute any alcohol or drug abuse patient.[facility] HospitalIn the event this information is protected by the Federal Confidentiality of Alcohol and Drug Abuse Patient Records regulations: The Federal rules restrict any use of the information to criminally investigate or prosecute any alcohol or drug abuse patient.[facility] HospitalIn the event this information is protected by the Federal Confidentiality of Alcohol and Drug Abuse Patient Records regulations: The Federal rules restrict any use of the information to criminally investigate or prosecute any alcohol or drug abuse patient.[facility] HospitalIn the event this information is protected by the Federal Confidentiality of Alcohol and Drug Abuse Patient Records regulations: The Federal rules restrict any use of the information to criminally investigate or prosecute any alcohol or drug abuse patient.[facility] HospitalIn the event this information is protected by the Federal Confidentiality of Alcohol and Drug Abuse Patient Records regulations: The Federal rules restrict any use of the information to criminally investigate or prosecute any alcohol or drug abuse patient.[facility] HospitalIn the event this information is protected by the Federal Confidentiality of Alcohol and Drug Abuse Patient Records regulations: The Federal rules restrict any use of the information to criminally investigate or prosecute any alcohol or drug abuse patient.[facility] HospitalIn the event this information is protected by the Federal Confidentiality of Alcohol and Drug Abuse Patient Records regulations: The Federal rules restrict any use of the information to criminally investigate or prosecute any alcohol or drug abuse patient.[facility] HospitalIn the event this information is protected by the Federal Confidentiality of Alcohol and Drug Abuse Patient Records regulations: The Federal rules restrict any use of the information to criminally investigate or prosecute any alcohol or drug abuse patient.[facility] HospitalIn the event this information is protected by the Federal Confidentiality of Alcohol and Drug Abuse Patient Records regulations: The Federal rules restrict any use of the information to criminally investigate or prosecute any alcohol or drug abuse patient.[facility] HospitalIn the event this information is protected by the Federal Confidentiality of Alcohol and Drug Abuse Patient Records regulations: The Federal rules restrict any use of the information to criminally investigate or prosecute any alcohol or drug abuse patient.[facility] HospitalIn the event this information is protected by the Federal Confidentiality of Alcohol and Drug Abuse Patient Records regulations: The Federal rules restrict any use of the information to criminally investigate or prosecute any alcohol or drug abuse patient.[facility] HospitalIn the event this information is protected by the Federal Confidentiality of Alcohol and Drug Abuse Patient Records regulations: The Federal rules restrict any use of the information to criminally investigate or prosecute any alcohol or drug abuse patient.[facility] HospitalIn the event this information is protected by the Federal Confidentiality of Alcohol and Drug Abuse Patient Records regulations: The Federal rules restrict any use of the information to criminally investigate or prosecute any alcohol or drug abuse patient.[facility] HospitalIn the event this information is protected by the Federal Confidentiality of Alcohol and Drug Abuse Patient Records regulations: The Federal rules restrict any use of the information to criminally investigate or prosecute any alcohol or drug abuse patient.[facility] HospitalIn the event this information is protected by the Federal Confidentiality of Alcohol and Drug Abuse Patient Records regulations: The Federal rules restrict any use of the information to criminally investigate or prosecute any alcohol or drug abuse patient.[facility] HospitalIn the event this information is protected by the Federal Confidentiality of Alcohol and Drug Abuse Patient Records regulations: The Federal rules restrict any use of the information to criminally investigate or prosecute any alcohol or drug abuse patient.[facility] HospitalIn the event this information is protected by the Federal Confidentiality of Alcohol and Drug Abuse Patient Records regulations: The Federal rules restrict any use of the information to criminally investigate or prosecute any alcohol or drug abuse patient.[facility] HospitalIn the event this information is protected by the Federal Confidentiality of Alcohol and Drug Abuse Patient Records regulations: The Federal rules restrict any use of the information to criminally investigate or prosecute any alcohol or drug abuse patient.[facility] HospitalIn the event this information is protected by the Federal Confidentiality of Alcohol and Drug Abuse Patient Records regulations: The Federal rules restrict any use of the information to criminally investigate or prosecute any alcohol or drug abuse patient.[facility] HospitalIn the event this information is protected by the Federal Confidentiality of Alcohol and Drug Abuse Patient Records regulations: The Federal rules restrict any use of the information to criminally investigate or prosecute any alcohol or drug abuse patient.[facility] HospitalIn the event this information is protected by the Federal Confidentiality of Alcohol and Drug Abuse Patient Records regulations: The Federal rules restrict any use of the information to criminally investigate or prosecute any alcohol or drug abuse patient.[facility] HospitalIn the event this information is protected by the Federal Confidentiality of Alcohol and Drug Abuse Patient Records regulations: The Federal rules restrict any use of the information to criminally investigate or prosecute any alcohol or drug abuse patient.[facility] HospitalIn the event this information is protected by the Federal Confidentiality of Alcohol and Drug Abuse Patient Records regulations: The Federal rules restrict any use of the information to criminally investigate or prosecute any alcohol or drug abuse patient.[facility] HospitalIn the event this information is protected by the Federal Confidentiality of Alcohol and Drug Abuse Patient Records regulations: The Federal rules restrict any use of the information to criminally investigate or prosecute any alcohol or drug abuse patient.[facility] HospitalIn the event this information is protected by the Federal Confidentiality of Alcohol and Drug Abuse Patient Records regulations: The Federal rules restrict any use of the information to criminally investigate or prosecute any alcohol or drug abuse patient.[facility] HospitalIn the event this information is protected by the Federal Confidentiality of Alcohol and Drug Abuse Patient Records regulations: The Federal rules restrict any use of the information to criminally investigate or prosecute any alcohol or drug abuse patient.[facility] HospitalIn the event this information is protected by the Federal Confidentiality of Alcohol and Drug Abuse Patient Records regulations: The Federal rules restrict any use of the information to criminally investigate or prosecute any alcohol or drug abuse patient.[facility] HospitalIn the event this information is protected by the Federal Confidentiality of Alcohol and Drug Abuse Patient Records regulations: The Federal rules restrict any use of the information to criminally investigate or prosecute any alcohol or drug abuse patient.[facility] HospitalIn the event this information is protected by the Federal Confidentiality of Alcohol and Drug Abuse Patient Records regulations: The Federal rules restrict any use of the information to criminally investigate or prosecute any alcohol or drug abuse patient.[facility] HospitalIn the event this information is protected by the Federal Confidentiality of Alcohol and Drug Abuse Patient Records regulations: The Federal rules restrict any use of the information to criminally investigate or prosecute any alcohol or drug abuse patient.[facility] HospitalIn the event this information is protected by the Federal Confidentiality of Alcohol and Drug Abuse Patient Records regulations: The Federal rules restrict any use of the information to criminally investigate or prosecute any alcohol or drug abuse patient.[facility] HospitalIn the event this information is protected by the Federal Confidentiality of Alcohol and Drug Abuse Patient Records regulations: The Federal rules restrict any use of the information to criminally investigate or prosecute any alcohol or drug abuse patient.[facility] HospitalIn the event this information is protected by the Federal Confidentiality of Alcohol and Drug Abuse Patient Records regulations: The Federal rules restrict any use of the information to criminally investigate or prosecute any alcohol or drug abuse patient.[facility] HospitalIn the event this information is protected by the Federal Confidentiality of Alcohol and Drug Abuse Patient Records regulations: The Federal rules restrict any use of the information to criminally investigate or prosecute any alcohol or drug abuse patient.[facility] HospitalIn the event this information is protected by the Federal Confidentiality of Alcohol and Drug Abuse Patient Records regulations: The Federal rules restrict any use of the information to criminally investigate or prosecute any alcohol or drug abuse patient.[facility] HospitalIn the event this information is protected by the Federal Confidentiality of Alcohol and Drug Abuse Patient Records regulations: The Federal rules restrict any use of the information to criminally investigate or prosecute any alcohol or drug abuse patient.[facility] HospitalIn the event this information is protected by the Federal Confidentiality of Alcohol and Drug Abuse Patient Records regulations: The Federal rules restrict any use of the information to criminally investigate or prosecute any alcohol or drug abuse patient.[facility] HospitalIn the event this information is protected by the Federal Confidentiality of Alcohol and Drug Abuse Patient Records regulations: The Federal rules restrict any use of the information to criminally investigate or prosecute any alcohol or drug abuse patient.[facility] HospitalIn the event this information is protected by the Federal Confidentiality of Alcohol and Drug Abuse Patient Records regulations: The Federal rules restrict any use of the information to criminally investigate or prosecute any alcohol or drug abuse patient.[facility] HospitalIn the event this information is protected by the Federal Confidentiality of Alcohol and Drug Abuse Patient Records regulations: The Federal rules restrict any use of the information to criminally investigate or prosecute any alcohol or drug abuse patient.[facility] HospitalIn the event this information is protected by the Federal Confidentiality of Alcohol and Drug Abuse Patient Records regulations: The Federal rules restrict any use of the information to criminally investigate or prosecute any alcohol or drug abuse patient.[facility] HospitalIn the event this information is protected by the Federal Confidentiality of Alcohol and Drug Abuse Patient Records regulations: The Federal rules restrict any use of the information to criminally investigate or prosecute any alcohol or drug abuse patient.[facility] HospitalIn the event this information is protected by the Federal Confidentiality of Alcohol and Drug Abuse Patient Records regulations: The Federal rules restrict any use of the information to criminally investigate or prosecute any alcohol or drug abuse patient.[facility] HospitalIn the event this information is protected by the Federal Confidentiality of Alcohol and Drug Abuse Patient Records regulations: The Federal rules restrict any use of the information to criminally investigate or prosecute any alcohol or drug abuse patient.[facility] HospitalIn the event this information is protected by the Federal Confidentiality of Alcohol and Drug Abuse Patient Records regulations: The Federal rules restrict any use of the information to criminally investigate or prosecute any alcohol or drug abuse patient.[facility] the event this information is protected by the Federal Confidentiality of Alcohol and Drug Abuse Patient Records regulations: The Federal rules restrict any use of the information to criminally investigate or prosecute any alcohol or drug abuse patient.[facility] HospitalIn the event this information is protected by the Federal Confidentiality of Alcohol and Drug Abuse Patient Records regulations: The Federal rules restrict any use of the information to criminally investigate or prosecute any alcohol or drug abuse patient.[facility] HospitalIn the event this information is protected by the Federal Confidentiality of Alcohol and Drug Abuse Patient Records regulations: The Federal rules restrict any use of the information to criminally investigate or prosecute any alcohol or drug abuse patient.[facility] ClinicIn the event this information is protected by the Federal Confidentiality of Alcohol and Drug Abuse Patient Records regulations: The Federal rules restrict any use of the information to criminally investigate or prosecute any alcohol or drug abuse patient.[facility] HospitalIn the event this information is protected by the Federal Confidentiality of Alcohol and Drug Abuse Patient Records regulations: The Federal rules restrict any use of the information to criminally investigate or prosecute any alcohol or drug abuse patient.[facility] HospitalIn the event this information is protected by the Federal Confidentiality of Alcohol and Drug Abuse Patient Records regulations: The Federal rules restrict any use of the information to criminally investigate or prosecute any alcohol or drug abuse patient.[facility] HospitalIn the event this information is protected by the Federal Confidentiality of Alcohol and Drug Abuse Patient Records regulations: The Federal rules restrict any use of the information to criminally investigate or prosecute any alcohol or drug abuse patient.[facility] HospitalIn the event this information is protected by the Federal Confidentiality of Alcohol and Drug Abuse Patient Records regulations: The Federal rules restrict any use of the information to criminally investigate or prosecute any alcohol or drug abuse patient.[facility] HospitalIn the event this information is protected by the Federal Confidentiality of Alcohol and Drug Abuse Patient Records regulations: The Federal rules restrict any use of the information to criminally investigate or prosecute any alcohol or drug abuse patient.[facility] HospitalIn the event this information is protected by the Federal Confidentiality of Alcohol and Drug Abuse Patient Records regulations: The Federal rules restrict any use of the information to criminally investigate or prosecute any alcohol or drug abuse patient.[facility] HospitalIn the event this information is protected by the Federal Confidentiality of Alcohol and Drug Abuse Patient Records regulations: The Federal rules restrict any use of the information to criminally investigate or prosecute any alcohol or drug abuse patient.[facility] HospitalIn the event this information is protected by the Federal Confidentiality of Alcohol and Drug Abuse Patient Records regulations: The Federal rules restrict any use of the information to criminally investigate or prosecute any alcohol or drug abuse patient.[facility] HospitalIn the event this information is protected by the Federal Confidentiality of Alcohol and Drug Abuse Patient Records regulations: The Federal rules restrict any use of the information to criminally investigate or prosecute any alcohol or drug abuse patient.[facility] HospitalIn the event this information is protected by the Federal Confidentiality of Alcohol and Drug Abuse Patient Records regulations: The Federal rules restrict any use of the information to criminally investigate or prosecute any alcohol or drug abuse patient.[facility] HospitalIn the event this information is protected by the Federal Confidentiality of Alcohol and Drug Abuse Patient Records regulations: The Federal rules restrict any use of the information to criminally investigate or prosecute any alcohol or drug abuse patient.[facility] HospitalIn the event this information is protected by the Federal Confidentiality of Alcohol and Drug Abuse Patient Records regulations: The Federal rules restrict any use of the information to criminally investigate or prosecute any alcohol or drug abuse patient.[facility] HospitalIn the event this information is protected by the Federal Confidentiality of Alcohol and Drug Abuse Patient Records regulations: The Federal rules restrict any use of the information to criminally investigate or prosecute any alcohol or drug abuse patient.[facility] HospitalIn the event this information is protected by the Federal Confidentiality of Alcohol and Drug Abuse Patient Records regulations: The Federal rules restrict any use of the information to criminally investigate or prosecute any alcohol or drug abuse patient.[facility] HospitalIn the event this information is protected by the Federal Confidentiality of Alcohol and Drug Abuse Patient Records regulations: The Federal rules restrict any use of the information to criminally investigate or prosecute any alcohol or drug abuse patient.[facility] HospitalIn the event this information is protected by the Federal Confidentiality of Alcohol and Drug Abuse Patient Records regulations: The Federal rules restrict any use of the information to criminally investigate or prosecute any alcohol or drug abuse patient.[facility] HospitalIn the event this information is protected by the Federal Confidentiality of Alcohol and Drug Abuse Patient Records regulations: The Federal rules restrict any use of the information to criminally investigate or prosecute any alcohol or drug abuse patient.[facility] HospitalIn the event this information is protected by the Federal Confidentiality of Alcohol and Drug Abuse Patient Records regulations: The Federal rules restrict any use of the information to criminally investigate or prosecute any alcohol or drug abuse patient.[facility] HospitalIn the event this information is protected by the Federal Confidentiality of Alcohol and Drug Abuse Patient Records regulations: The Federal rules restrict any use of the information to criminally investigate or prosecute any alcohol or drug abuse patient.[facility] HospitalIn the event this information is protected by the Federal Confidentiality of Alcohol and Drug Abuse Patient Records regulations: The Federal rules restrict any use of the information to criminally investigate or prosecute any alcohol or drug abuse patient.[facility] HospitalIn the event this information is protected by the Federal Confidentiality of Alcohol and Drug Abuse Patient Records regulations: The Federal rules restrict any use of the information to criminally investigate or prosecute any alcohol or drug abuse patient.[facility] HospitalIn the event this information is protected by the Federal Confidentiality of Alcohol and Drug Abuse Patient Records regulations: The Federal rules restrict any use of the information to criminally investigate or prosecute any alcohol or drug abuse patient.[facility] HospitalIn the event this information is protected by the Federal Confidentiality of Alcohol and Drug Abuse Patient Records regulations: The Federal rules restrict any use of the information to criminally investigate or prosecute any alcohol or drug abuse patient.[facility] HospitalIn the event this information is protected by the Federal Confidentiality of Alcohol and Drug Abuse Patient Records regulations: The Federal rules restrict any use of the information to criminally investigate or prosecute any alcohol or drug abuse patient.[facility] HospitalIn the event this information is protected by the Federal Confidentiality of Alcohol and Drug Abuse Patient Records regulations: The Federal rules restrict any use of the information to criminally investigate or prosecute any alcohol or drug abuse patient.[facility] HospitalIn the event this information is protected by the Federal Confidentiality of Alcohol and Drug Abuse Patient Records regulations: The Federal rules restrict any use of the information to criminally investigate or prosecute any alcohol or drug abuse patient.[facility] HospitalIn the event this information is protected by the Federal Confidentiality of Alcohol and Drug Abuse Patient Records regulations: The Federal rules restrict any use of the information to criminally investigate or prosecute any alcohol or drug abuse patient.[facility] HospitalIn the event this information is protected by the Federal Confidentiality of Alcohol and Drug Abuse Patient Records regulations: The Federal rules restrict any use of the information to criminally investigate or prosecute any alcohol or drug abuse patient.[facility] HospitalIn the event this information is protected by the Federal Confidentiality of Alcohol and Drug Abuse Patient Records regulations: The Federal rules restrict any use of the information to criminally investigate or prosecute any alcohol or drug abuse patient.[facility] HospitalIn the event this information is protected by the Federal Confidentiality of Alcohol and Drug Abuse Patient Records regulations: The Federal rules restrict any use of the information to criminally investigate or prosecute any alcohol or drug abuse patient.[facility] HospitalIn the event this information is protected by the Federal Confidentiality of Alcohol and Drug Abuse Patient Records regulations: The Federal rules restrict any use of the information to criminally investigate or prosecute any alcohol or drug abuse patient.[facility] HospitalIn the event this information is protected by the Federal Confidentiality of Alcohol and Drug Abuse Patient Records regulations: The Federal rules restrict any use of the information to criminally investigate or prosecute any alcohol or drug abuse patient.[facility] HospitalIn the event this information is protected by the Federal Confidentiality of Alcohol and Drug Abuse Patient Records regulations: The Federal rules restrict any use of the information to criminally investigate or prosecute any alcohol or drug abuse patient.[facility] HospitalIn the event this information is protected by the Federal Confidentiality of Alcohol and Drug Abuse Patient Records regulations: The Federal rules restrict any use of the information to criminally investigate or prosecute any alcohol or drug abuse patient.[facility] HospitalIn the event this information is protected by the Federal Confidentiality of Alcohol and Drug Abuse Patient Records regulations: The Federal rules restrict any use of the information to criminally investigate or prosecute any alcohol or drug abuse patient.[facility] HospitalIn the event this information is protected by the Federal Confidentiality of Alcohol and Drug Abuse Patient Records regulations: The Federal rules restrict any use of the information to criminally investigate or prosecute any alcohol or drug abuse patient.[facility] HospitalIn the event this information is protected by the Federal Confidentiality of Alcohol and Drug Abuse Patient Records regulations: The Federal rules restrict any use of the information to criminally investigate or prosecute any alcohol or drug abuse patient.[facility] HospitalIn the event this information is protected by the Federal Confidentiality of Alcohol and Drug Abuse Patient Records regulations: The Federal rules restrict any use of the information to criminally investigate or prosecute any alcohol or drug abuse patient.[facility] HospitalIn the event this information is protected by the Federal Confidentiality of Alcohol and Drug Abuse Patient Records regulations: The Federal rules restrict any use of the information to criminally investigate or prosecute any alcohol or drug abuse patient.[facility] Reason for Visit (unrecogniz ed section and content) Reason Comments PT Eval Specialty Diagnoses / Procedures Referred By Contac t Referred To Contact [facility] Diagnoses Gait disturbance Procedures CONSULT TO PHYSICAL THERAPY PHYSICAL THERAPY EVALUATION HIGH COMPLEX 45 MINS Podlogar, Drea, HYDROCHLORIC ACID OPERATOR.ASSISTED LIVING CARE MANAGER [address] [place] [address] [facility] [place] [address] [place] [address] Referral ID Status Reason Start Date Expiration Date Visits Requested Visits Authorized [id number] Authorized PCP Requested Referral Auto-Generate d Referral 04/10/2024 04/10/2025 99 99 Reason Comments PT Progress Note Specialty Diagnoses / Procedures Referred By Contac t Referred To Contact PHYSICAL THERAPY Diagnoses Gait instability Procedures CONSULT TO PHYSICAL THERAPY PHYSICAL THERAPY EVALUATION HIGH COMPLEX 45 MINS Podlogar, Drea, HYDROCHLORIC ACID OPERATOR.ASSISTED LIVING CARE MANAGER [address] [place] [address] Pt [facility] [address] [place] [address] Referral ID Status Reason Start Date Expiration Date Visits Requested Visits Authorized [id number] Authorized PCP Requested Referral Auto-Generate d Referral 07/28/2023 07/27/2024 99 99 Reason Comments Physical Therapy Reason Comments Insurance Authorization Hydroxyzine Reason Comments 6 Month Exam Reason Comments [...] Reason Onset Date Comments Refill Request 04/12/[address] Specialty Diagnoses / Procedures Referred By Kira t Referred To Contact CT IMAGING Diagnoses Injury of head, initial encounter Procedures CT BRAIN WO IVCON CT HEAD/BRAIN W/O CONTRAST MATERIAL Tony Soares MD [address] [place] [address] [place] [address] Referral ID Status Reason Start Date Expiration Date V isits Requested Visits Authorized [id number] Closed Auto-Generate d Referral 07/02/2023 07/31/2024 1 1 Reason Comments ER F/U Reason Comments Follow Up 1 week Reason Comments Skin tear LLE; occurred last n ight Heel Pain Right heel pain; tavo pped on something, unsure what. No open area. Reason Comments Dizziness Reason Comments Dizziness Patient reports when she bends over she experiences dizziness. Started this last weekend and continued through yesterday. Patient reports she checked her BP and that was ok. Reports no dizziness today. Follow Up Patient wants to vidhya ck urine to see if UTI cleared up. ATB completed on Wednesday. Reason Comments left flank pain Reason Comments Radiology US Specialty Diagnoses / Procedures Referred By Kira t Referred To Contact US IMAGING Diagnoses Acute left flank pain Procedures US KIDNEY/BLADDER US RETROPERITONEAL REAL TIME W/IMAGE COMPLETE Tony Soares MD [address] [place] [address] [place] [address] Referral ID Status Reason Start Date Expiration Date V isits Requested Visits Authorized [id number] Closed Auto-Generate d Referral 09/06/2023 10/05/2024 1 1 Reason Comments Follow Up 6 months Reason Comments open area on left lower arm Reason Comments Wound Check 1 week, left forearm Reason Comments Derm Problem Left leg since middl e of last week ER F/U Patient reported she really didn't fall but 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 Reason Comments legs are more painful today Patient Question Reason Comments Clinical Update Reason Comments Follow Up ER follow up -hit he adtoday c/o left hip pain Reason Comments Future Appointment Reason Comments memory concerns Hallucinations Reason Comments ER F/U UTI & head CT; [facility] Reason Comments New Patient Impaired cognition, Hallucinations, gets lost coming home from stores. Specialty Diagnoses / Procedures Referred By Kira wiley Referred To Contact Neurology Diagnoses Hallucinations Impaired cognition Procedures CONSULT TO NEUROLOGY OFFICE/OUTPATIENT NEW HIGH MDM 60 MINUTES Podlogar, MONSTER Shepard [address] [place] [address] Referral ID Status Reason Start Date Expiration Date V isits Requested Visits Authorized [id number] Closed PCP Requested Referral 04/12/2024 04/12/2025 1 1 Reason Onset Date Comments Population Health Navigation Outreach 05/23/2024 [facility] Reason Onset Date Comments Transition Of Care 06/19/2024 Reason Onset Date Comments Results 06/27/2024 Reason Comments Hospital F/U 06/18/24 discharge a nd then ER visit same day Reason Onset Date Comments Population Health Navigation Outreach 07/18/2024 Aco high risk attempt # 1 Reason Onset Date Comments Population Health Navigation Outreach 07/21/2024 Aco high risk attempt # 2 Reason Onset Date Comments Refill Request 07/31/2024 Reason Comments Fall Reason Onset Date Comments Population Health Navigation Outreach 09/26/2024 [facility] Reason Onset Date Comments Population Health Navigation Outreach 10/17/2024 [facility] Reason Onset Date Comments Population Health Navigation Outreach 11/16/2024 [facility] Reason Comments Physical Reason Comments Passport Waiver Care Teams (unrecognized sec tion and content) Ground School Instructor Relationship Specialty Start Date End Date Tony Soares MD [address] [place] [address] PCP - General Family Practice 08/14/16 Felton Yancey [address] [place] [address] Pain Management 05/13/18 Ender Lucio [address] [place] [address] Dermatology 05/13/18 Romie Cueto (Hist) [address] [place] [address] Cardiology 05/13/18 Levy Ibarra [address] [place] [address] Physician Cardiology 07/11/18 Ground School Instructor Relationship Specialty Start Date End Date Tony Soares MD [address] [place] [address] PCP - General Family Practice 08/14/16 Felton Yancey [address] [place] [address] Pain Management 05/13/18 Ender Lucio [address] [facility] [place] [place] [address] Dermatology 05/13/18 Romie Cueto (Hist) [address] [facility] [place] [address] Cardiology 05/13/18 Stacey, Levy S [address] [place] [address] Physician Cardiology 07/11/18 Ground School Instructor Relationship Specialty Start Date End Date Tony Soares MD [address] [facility] [place] [address] PCP - General Family Practice 08/14/16 Felton Yancey [address] [place] [address] Pain Management 05/13/18 Ender Lucio [address] [place] [address] Dermatology 05/13/18 Romie Cueto (Hist) [address] [place] [address] Cardiology 05/13/18 Stacey, Levy S [address] [place] [address] Physician Cardiology 07/11/18 Ground School Instructor Relationship Specialty Start Date End Date Tony Soares MD [address] [facility] [place] [address] PCP - General Family Practice 08/14/16 Felton Yancey [address] [place] [address] Pain Management 05/13/18 Ender Lucio [address] [place] [address] Dermatology 05/13/18 Romie Cueto (Hist) [address] [place] [address] Cardiology 05/13/18 Stacey, Levy S [address] [place] [address] Physician Cardiology 07/11/18 Ground School Instructor Relationship Specialty Start Date End Date Tony Soares MD [address] [facility] [place] [address] PCP - General Family Practice 08/14/16 Felton Yancey [address] [place] [address] Pain Management 05/13/18 Ender Lucio [address] [place] [address] Dermatology 05/13/18 Romie Cueto (Hist) [address] [place] [address] Cardiology 05/13/18 Stacey, [place] S [address] [place] [address] Physician Cardiology 07/11/18 Ground School Instructor Relationship Specialty Start Date End Date Tony Soares MD [address] [facility] [place] [address] PCP - General Family Practice 08/14/16 Felton Yancey [address] [place] [address] Pain Management 05/13/18 Ender Lucio [address] [place] [address] Dermatology 05/13/18 Romie Cueto (Hist) [address] [place] [address] Cardiology 05/13/18 Stacey, Levy S [address] [place] [address] Physician Cardiology 07/11/18 Ground School Instructor Relationship Specialty Start Date End Date Tony Soares MD [address] [facility] [place] [address] PCP - General Family Practice 08/14/16 Felton Yancey [address] [place] [address] Pain Management 05/13/18 Ender Lucio [address] [place] [address] Dermatology 05/13/18 Romie Cueto (Hist) [address] [place] [address] Cardiology 05/13/18 Stacey, [place] S [address] [place] [address] Physician Cardiology 07/11/18 Ground School Instructor Relationship Specialty Start Date End Date Tnoy Soares MD [address] [facility] [place] [address] PCP - General Family Practice 08/14/16 Felton Yancey [address] [place] [address] Pain Management 05/13/18 Ender Lucio [address] [place] [address] Dermatology 05/13/18 Romie Cueto (Hist) [address] [place] [address] Cardiology 05/13/18 Stacey, [place] S [address] [place] [address] Physician Cardiology 07/11/18 Ground School Instructor Relationship Specialty Start Date End Date Tony Soares MD [address] [facility] [place] [address] PCP - General Family Medicine 08/14/16 Felton Yancey [address] [place] [address] Pain Management 05/13/18 Ender Lucio [address] [place] [place] [address] Dermatology 05/13/18 Romie Cueto (Hist) [address] [facility] [place] [address] Cardiology 05/13/18 Stacey, [place] S [address] [place] [address] Physician Cardiology 07/11/18 Ground School Instructor Relationship Specialty Start Date End Date Tony Soares MD [address] [facility] [place] [address] PCP - General Family Medicine 08/14/16 Felton Yancey [address] [place] [address] Pain Management 05/13/18 Ender Lucio [address] [place] [address] Dermatology 05/13/18 Romie Cueto (Hist) [address] [place] [address] Cardiology 05/13/18 StaceyTeo bernardril S [address] [place] [address] Physician Cardiology 07/11/18 Ground School Instructor Relationship Specialty Start Date End Date Tony Soares MD [address] [facility] [place] [address] PCP - General Family Medicine 08/14/16 Felton Yancey [address] [place] [address] Pain Management 05/13/18 Ender Lucio [address] [place] [address] Dermatology 05/13/18 Romie Cueto [address] [place] [address] Cardiology 05/13/18 Stacey, Levy S [address] [place] [address] Physician Cardiology 07/11/18 Ground School Instructor Relationship Specialty Start Date End Date Tony Soares MD [address] [facility] [place] [address] PCP - General Family Medicine 08/14/16 Felton Yancey [address] [place] [address] Pain Management 05/13/18 Ender Lucio [address] [place] [address] Dermatology 05/13/18 Romie Cueto [address] [place] [address] Cardiology 05/13/18 StaceyTeoFair [place] S [address] [place] [address] Physician Cardiology 07/11/18 Ground School Instructor Relationship Specialty Start Date End Date Tony Soares MD [address] [facility] [place] [address] PCP - General Family Medicine 08/14/16 Felton Yancey [address] [place] [address] Pain Management 05/13/18 Ender Lucio [address] [place] [address] Dermatology 05/13/18 Romie Cueto [address] [place] [address] Cardiology 05/13/18 Stacey, Levy S [address] [place] [address] Physician Cardiology 07/11/18 Ground School Instructor Relationship Specialty Start Date End Date Tony Soares MD [address] [facility] [place] [address] PCP - General Family Medicine 08/14/16 Felton Yancey [address] [place] [address] Pain Management 05/13/18 Ender Lucio [address] [place] [address] Dermatology 05/13/18 Romie Cueto [address] [place] [address] Cardiology 05/13/18 Stacey Levy S [address] [place] [address] Physician Cardiology 07/11/18 [employer] Instructor Relationship Specialty Start Date End Date Tony Soares MD [address] [facility] [place] [place] [address] PCP - General Family Medicine 08/14/16 Felton Yancey [address] [facility] 3 [place] [address] Pain Management 05/13/18 Ender Lucio [address] [place] [address] Dermatology 05/13/18 Romie Cueto [address] [place] [address] Cardiology 05/13/18 Stacey, [place] S [address] [place] [address] Physician Cardiology 07/11/18 Ground School Instructor Relationship Specialty Start Date End Date Tony Soares MD [address] [facility] [place] [address] PCP - General Family Medicine 08/14/16 Felton Yancey [address] [employer] [address] [place] [address] Pain Management 05/13/18 Ender Lucio [address] [place] [address] Dermatology 05/13/18 Romie Cueto [address] [place] [address] Cardiology 05/13/18 StaceyTeo bernardril S [address] [place] [address] Physician Cardiology 07/11/18 Ground School Instructor Relationship Specialty Start Date End Date Tony Soares MD [address] [facility] [place] [address] PCP - General Family Medicine 08/14/16 Felton Yancey [address] [facility] 3 [place] [address] Pain Management 05/13/18 Ender Lucio [address] [place] [address] Dermatology 05/13/18 Romie Cueto [address] [place] [address] Cardiology 05/13/18 Stacey, Levy S [address] [place] [address] Physician Cardiology 07/11/18 Ground School Instructor Relationship Specialty Start Date End Date Tony Soares MD [address] [facility] [place] [place] [address] PCP - General Family Medicine 08/14/16 Felton Yancey [address] [facility] 3 [place] [address] Pain Management 05/13/18 Ender Lucio [address] [place] [address] Dermatology 05/13/18 Romie Cueto [address] [place] [address] Cardiology 05/13/18 Levy Ibarra [address] [facility]A [place] [address] Physician Cardiology 07/11/18 Team Status: Active Member Role Status Dates Dr. Morro Aguilera MD Family Provider Active Dr. Bjorn Soares MD Primary Care Provider Acti ve Team Status: Inactive Member Role Status Dates Dr. Bjorn Soares MD Primary Care Provider, Ref erring Provider Active Dr. Stan Ng , Attending Provider Active Team Status: Inactive Member Role Status Dates Dr. Bjorn Soares MD Primary Care Provider Acti ve Dr. Stna Ng , Attending Provider, Referring Provider Active Team Status: Active Member Role Status Dates Dr. Bjorn Soares MD Primary Care Provider Acti ve Dr. Stan Ng , Attending Provider, Referring Provider Active Team Status: Inactive Member Role Status Dates Dr. Bjorn Soares MD Primary Care Provider, Ref erring Provider Active Dr. Levy Ibarra MD Attending Provider Active Team Status: Active Member Role Status Dates Dr. Bjorn Soares MD Primary Care Provider, Ref erring Provider Active Dr. Stan Ng , Attending Provider, Other Prov ider Active Team Status: Active Member Role Status Dates Dr. Bjorn Soares MD Primary Care Provider Acti ve Dr. Levy Ibarra MD Attending Provider Active Team Status: Inactive Member Role Status Dates Dr. Bjorn Soares MD Primary Care Provider Acti ve Dr. Levy Ibarra MD Attending Provider, Referring Pro vider Active Ground [employer] Instructor Relationship Specialty Start Date End Date Tony Soares MD [address] [place] [address] PCP - General Family Medicine 08/14/16 Felton Yancey [address] [facility] 3 [place] [address] Pain Management 05/13/18 Ender Lucio [address] [place] [address] Dermatology 05/13/18 Romie Cueto [address] [place] [address] Cardiology 05/13/18 Levy Ibarra [address] [place] [address] Physician Cardiology 07/11/18 Ground School Instructor Relationship Specialty Start Date End Date Tony Soares MD [address] [place] [address] PCP - General Family Medicine 08/14/16 Felton Yancey MD [address] [place] [address] Pain Management 05/13/18 Ender Lucio MD [address] [place] [address] Dermatology 05/13/18 Rmoie Cueto [address] [place] [address] Cardiology 05/13/18 Levy Ibarra MD [address] [place] [address] Physician Cardiology 07/11/18 Ground School Instructor Relationship Specialty Start Date End Date Tony Soares MD [address] [facility] [place] [address] PCP - General Family Medicine 08/14/16 Felton Yancey MD [address] [place] [address] Pain Management 05/13/18 Ender Lucio MD [address] [place] [address] Dermatology 05/13/18 Romie Cueto [address] [place] [address] Cardiology 05/13/18 Levy Ibarra MD [address] [facility] 3A [place] [address] Physician Cardiology 07/11/18 Ground School Instructor Relationship Specialty Start Date End Date Tony Soares MD [address] [place] [address] PCP - General Family Medicine 08/14/16 Felton Yancey MD [address] [facility] 3 [place] [address] Pain Management 05/13/18 Ender Lucio MD [address] [place] [address] Dermatology 05/13/18 Romie Cueto [address] [place], [place] [address] Cardiology 05/13/18 Levy Ibarra MD [address] [address] Physician Cardiology 07/11/18 Ground School Instructor Relationship Specialty Start Date End Date Tony Soares MD [address] [place] [address] PCP - General Family Medicine 08/14/16 Felton Yancey MD [address] [place] [address] Pain Management 05/13/18 Ender Lucio MD [address] [place] [address] Dermatology 05/13/18 Romie Cueto [address] [place] [address] Cardiology 05/13/18 Levy Ibarra MD [address] [address] Physician Cardiology 07/11/18 Ground School Instructor Relationship Specialty Start Date End Date Tony Soares MD [address] [place] [address] PCP - General Family Medicine 08/14/16 Felton Yancey MD [address] [place] [address] Pain Management 05/13/18 Ender Lucio MD [address] [place] [address] Dermatology 05/13/18 Romie Cueto [address] [place] [address] Cardiology 05/13/18 Levy Ibarra MD [address] [place] [address] Physician Cardiology 07/11/18 Ground School Instructor Relationship Specialty Start Date End Date Tony Soares MD [address] [place] [address] PCP - General Family Medicine 08/14/16 Felton Yancey MD [address] [place] [address] Pain Management 05/13/18 Ender Lucio MD [address] [place] [address] Dermatology 05/13/18 Romie Cueto [address] [place] [address] Cardiology 05/13/18 Levy Ibarra MD [address] [place] [address] Physician Cardiology 07/11/18 Ground School Instructor Relationship Specialty Start Date End Date Tony Soares MD [address] [place] [address] PCP - General Family Medicine 08/14/16 Felton Yancey MD [address] [facility] 3 [place] [address] Pain Management 05/13/18 Ender Lucio MD [address] [place] [address] Dermatology 05/13/18 Romie Cueto [address] [place] [address] Cardiology 05/13/18 Levy Ibarra MD [address] [facility] 3[place] [address] Physician Cardiology 07/11/18 Ground School Instructor Relationship Specialty Start Date End Date Tony Soares MD [address] [facility] [place] [address] PCP - General Family Medicine 08/14/16 Felton Yancey MD [address] [facility] 3 [place] [address] Pain Management 05/13/18 Ender Lucio MD [address] [place] [address] Dermatology 05/13/18 Romie Cueto [address] [place] [address] Cardiology 05/13/18 Levy Ibarra MD [address] [facility] [place], [place] [address] Physician Cardiology 07/11/18 Team Status: Inactive Member Role Status Dates Dr. Bjorn Soares MD Primary Care Provider, Ref erring Provider Active Nilton Rosa MEDICAL AFFAIRS SPECIALIST, MEDICAL AFFAIRS SPECIALIST-C Attending Provider Active Team Status: Inactive Member Role Status Dates Dr. Bjorn Soares MD Primary Care Provider, Ref erring Provider Active Brodie PAULINO PA Attending Provider Active Team Status: Inactive Member Role Status Dates Dr. Bjorn Soares MD Primary Care Provider Acti ve Brodie PAULINO, PA Attending Provider, Referring Provi juan Active Team Status: Inactive Member Role Status Dates Dr. Bjorn Soares MD Primary Care Provider Acti ve Dr. Harsh Castaneda , Emergency Provider Active Team Status: Inactive Member Role Status Dates Dr. Bjorn Soares MD Primary Care Provider Acti ve Nilton Rosa MEDICAL AFFAIRS SPECIALIST, MEDICAL AFFAIRS SPECIALIST-C Attending Provider, Referring Pro vider Active Team Status: Inactive Member Role Status Dates Dr. Bjorn Soares MD Primary Care Provider Acti ve Dr. Harsh Castaneda DO Attending Provider, Emergency P rovider Active Team Status: Inactive Member Role Status Dates Dr. Bjorn Soares MD Primary Care Provider Acti ve Dr. Elmer Suresh DO Emergency Provider Active [employer] Instructor Relationship Specialty Start Date End Date Tony Soares MD [address] [place] [address] PCP - General Family Medicine 08/14/16 Felton Yancey MD [address] [facility] 3 [place], [place] [address] Pain Management 05/13/18 Ender Lucio MD [address] [place] [place], [place] [id number] Dermatology 05/13/18 Romie Cueto [address] [place] [address] (Fax) Cardiology 05/13/18 Levy Ibarra MD [address] [place] [address] Physician Cardiology 07/11/18 Ground School Instructor Relationship Specialty Start Date End Date Tony Soares MD [address] [facility] [place] [address] PCP - General Family Medicine 08/14/16 Felton Yancey MD [address] [place] [address] Pain Management 05/13/18 Ender Lucio MD [address] [place] [address] Dermatology 05/13/18 Romie Cueto [address] [place] [address] Cardiology 05/13/18 Levy Ibarra MD [address] [place] [address] Physician Cardiology 07/11/18 Ground School Instructor Relationship Specialty Start Date End Date Tony Soares MD [address] [facility] [place] [address] PCP - General Family Medicine 08/14/16 Felton Yancey MD [address] [place] [address] Pain Management 05/13/18 Ender Lucio MD [address] [place] [address] Dermatology 05/13/18 Romie Cueto [address] [place] [address] Cardiology 05/13/18 Levy Ibarra MD [address] [facility] [place] [address] Physician Cardiology 07/11/18 Ground School Instructor Relationship Specialty Start Date End Date Tony Soares MD [address] [place] [address] PCP - General Family Medicine 08/14/16 Felton Yancey MD [address] [facility] 3 [place] [address] Pain Management 05/13/18 Ender Lucio MD [address] [place] [address] Dermatology 05/13/18 Romie Cueto [address] [place] [address] Cardiology 05/13/18 Levy Ibarra MD [address] [facility] [address] Physician Cardiology 07/11/18 Ground School Instructor Relationship Specialty Start Date End Date Tony Soares MD [address] [place] [address] PCP - General Family Medicine 08/14/16 Felton Yancey MD [address] [facility] 3 [place] [address] Pain Management 05/13/18 Ender Lucio MD [address] [place] [address] Dermatology 05/13/18 Romie Cueto [address] [place] [address] Cardiology 05/13/18 Levy Ibarra MD [address] [facility] 3A [place] [address] Physician Cardiology 07/11/18 Team Status: Inactive Member Role Status Dates Dr. Bjorn Soares MD Primary Care Provider Acti ve Dr. Elmer Suresh DO Attending Provider, Emergency P sheela Active Team Status: Inactive Member Role Status Dates Dr. Bjorn Soares MD Primary Care Provider Acti ve Drea Contreraslogkenny MEDICAL AFFAIRS SPECIALIST, MEDICAL AFFAIRS SPECIALIST-C Attending Provider, Referring Provider Active Team Status: Active Member Role Status Dates Dr. Bjorn Soares MD Primary Care Provider Acti ve Dr. Stan Ng DO Attending Provider Active Team Status: Inactive Member Role Status Dates Dr. Bjorn Soares MD Primary Care Provider Acti ve Dr. Stan Ng DO Attending Provider Active [employer] Instructor Relationship Specialty Start Date End Date Tony Soares MD [address] [place] [address] PCP - General Family Medicine 08/14/16 Felton Yancey MD [address] [facility] 3 [place] [address] Pain Management 05/13/18 Ender Lucio MD [address] [place] [address] Dermatology 05/13/18 Romie Cueto [address] [place] [address] Cardiology 05/13/18 Levy Ibarra MD [address] [facility] 3A [place] [address] Physician Cardiology 07/11/18 Team Status: Inactive Member Role Status Dates Dr. Bjorn Soares MD Primary Care Provider, Ref erring Provider Active Ry PAULINO PA Attending Provider Active Team Status: Inactive Member Role Status Dates Dr. Bjorn Soares MD Primary Care Provider Acti ve Ry PAULINO PA Attending Provider Active [employer] Instructor Relationship Specialty Start Date End Date Tony Soares MD [address] [place] [address] PCP - General Family Medicine 08/14/16 Felton Yancey MD [address] [facility] 3 [place] [address] Pain Management 05/13/18 Ender Lucio MD [address] [place] [address] Dermatology 05/13/18 Romie Cueto [address] [place] [address] (Fax) Cardiology 05/13/18 Levy Ibarra MD [address] [place] [address] Physician Cardiology 07/11/18 Ground School Instructor Relationship Specialty Start Date End Date Tony Soares MD [address] [place] [address] PCP - General Family Medicine 08/14/16 Felton Yancey MD [address] [place] [address] Pain Management 05/13/18 Ender Lucio MD [address] [place] [address] Dermatology 05/13/18 Romie Cueto [address] [place] [address] Cardiology 05/13/18 Levy Ibarra MD [address] [place] [address] Physician Cardiology 07/11/18 Ground School Instructor Relationship Specialty Start Date End Date Tony Soares MD [address] [place] [address] PCP - General Family Medicine 08/14/16 Felton Yancey MD [address] [place] [address] Pain Management 05/13/18 Ender Lucio MD [address] [place] [address] Dermatology 05/13/18 Romie Cueto [address] [place] [address] Cardiology 05/13/18 Levy Ibarra MD [address]61 [facility] 3A [place] [address] Physician Cardiology 07/11/18 Ground School Instructor Relationship Specialty Start Date End Date Tony Soares MD [address] [place] [address] PCP - General Family Medicine 08/14/16 Felton Yancey MD [facility] 3 [place] [address] Pain Management 05/13/18 Ender Lucio MD [address] [place] [address] Dermatology 05/13/18 Romie Cueto [address] [place] [address] Cardiology 05/13/18 Levy Ibarra MD 1761 [facility] 3A [place] [address] Physician Cardiology 07/11/18 Ground School Instructor Relationship Specialty Start Date End Date Tony Soares MD [address] [place] [address] PCP - General Family Medicine 08/14/16 Felton Yancey MD [address] [place] [address] Pain Management 05/13/18 Ender Lucio MD [address] [place] [address] Dermatology 05/13/18 Romie Cueto [address] [place] [address] Cardiology 05/13/18 Levy Ibarra MD [address] [place] [address] Physician Cardiology 07/11/18 Ground School Instructor Relationship Specialty Start Date End Date Tony Soares MD [address] [place] [address] PCP - General Family Medicine 08/14/16 Felton Yancey MD [address] [place] [address] Pain Management 05/13/18 Ender Lucio MD [address] [place] [address] Dermatology 05/13/18 Romie Cueto [address] [place] [address] Cardiology 05/13/18 Levy Ibarra MD [address] [address] Physician Cardiology 07/11/18 Team Status: Active Member Role Status Dates Dr. Bjorn Soares MD Primary Care Provider Acti ve Brodie Balbuena PA, PA Attending Provider, Referring Provi juan Active Team Status: Active Member Role Status Dates Dr. Bjorn Soares MD Primary Care Provider Acti ve Nilton Rosa MEDICAL AFFAIRS SPECIALIST, MEDICAL AFFAIRS SPECIALIST-C Attending Provider, Referring Pro vider Active [employer] Instructor Relationship Specialty Start Date End Date Tony Soares MD [address] [place] [address] PCP - General Family Medicine 08/14/16 Felton Yancey MD [address] [address] Pain Management 05/13/18 Ender Lucio MD [address] [place] [address] Dermatology 05/13/18 Romie Cueto [address] [place] [address] Cardiology 05/13/18 Levy Ibarra MD [address] [address] Physician Cardiology 07/11/18 Ground School Instructor Relationship Specialty Start Date End Date Tony Soares MD [address] [place], [place] [address] PCP - General Family Medicine 08/14/16 Felotn Yancey MD [address] [place] [address] Pain Management 05/13/18 Ender Lucio MD [address] [place] [address] Dermatology 05/13/18 Romie Cueto [address] [place] [address] Cardiology 05/13/18 Levy Ibarra MD [address] [facility] 3[address] [place] [address] Physician Cardiology 07/11/18 Ground School Instructor Relationship Specialty Start Date End Date Tony Soares MD [address] [place] [address] PCP - General Family Medicine 08/14/16 Felton Yancey MD [address] [facility] 3 [place] [address] Pain Management 05/13/18 Ender Lucio MD [address] [address] Dermatology 05/13/18 Romie Cueto [address] [place] [address] Cardiology 05/13/18 Levy Ibarra MD [address] [place] [address] Physician Cardiology 07/11/18 Ground School Instructor Relationship Specialty Start Date End Date Tony Soares MD [address] [facility] [place] [address] PCP - General Family Medicine 08/14/16 Felton Yancey MD [address] [place] [address] Pain Management 05/13/18 Ender Lucio MD [address] [place] [address] Dermatology 05/13/18 Romie Cueto [address] [place] [address] Cardiology 05/13/18 Levy Ibarra MD [address] [place] [address] Physician Cardiology 07/11/18 Ground School Instructor Relationship Specialty Start Date End Date Tony Soares MD [address] [place] [address] PCP - General Family Medicine 08/14/16 Felton Yancey MD [address] [place] [address] Pain Management 05/13/18 Ender Lucio MD [address] [place] [address] Dermatology 05/13/18 Romie Cueto [address] [place] [address] Cardiology 05/13/18 Levy Ibarra MD [address] [facility] [address]A [place] [address] Physician Cardiology 07/11/18 Podlogar, APRN. DreaASSISTED LIVING CARE MANAGER [address] [place] [address] Photovoltaic Fabrication Technician Family Medicine 04/08/24 Ground School Instructor Relationship Specialty Start Date End Date Tony Soares MD [address] [place] [address] PCP - General Family Medicine 08/14/16 Felton Yancey MD 3[address] [facility] 3 [place] [address] Pain Management 05/13/18 Ender Lucio MD [address] [place] [address] Dermatology 05/13/18 Romie Cueto [address] [place] [address] Cardiology 05/13/18 Levy Ibarra MD [address] [facility] [address] [place] [address] Physician Cardiology 07/11/18 PodlogarDrea APRN.ASSISTED LIVING CARE MANAGER [address] [facility] [place] [address] Photovoltaic Fabrication Technician Family [facility] 04/08/24 Ground School Instructor Relationship Specialty Start Date End Date Tony Soares MD [address] [facility] [place] [address] PCP - General Family Medicine 08/14/16 Felton Yancey MD [address] [place] [address] Pain Management 05/13/18 Ender Lucio MD [address] [place] [address] Dermatology 05/13/18 Romie Cueto [address] [place] [address] Cardiology 05/13/18 Levy Ibarra MD [address] [place] [address] Physician Cardiology 07/11/18 PodlogarDrea APRN.ASSISTED LIVING CARE MANAGER [address] [facility] [place] [address] Photovoltaic Fabrication Technician Family Medicine 04/08/24 Ground School Instructor Relationship Specialty Start Date End Date Tony Soares MD [address] [facility] [place] [address] PCP - General Family Medicine 08/14/16 Felton Yancey MD [address] [place] [address] Pain Management 05/13/18 Ender Lucio MD [address] [place] [address] Dermatology 05/13/18 Romie Cueto [address] [place] [address] Cardiology 05/13/18 Levy Ibarra MD [address] [facility] [address] [place] [address] Physician Cardiology 07/11/18 Podlogar, APRN. DreaASSISTED LIVING CARE MANAGER [address] [place] [address] Photovoltaic Fabrication Technician Family Medicine 04/08/24 Ground School Instructor Relationship Specialty Start Date End Date Tony Soares MD [address] [place] [address] PCP - General Family Medicine 08/14/16 Felton Yancey MD [address] [facility] 3 [place] [address] Pain Management 05/13/18 Ender Lucio MD [address] [place] [address] Dermatology 05/13/18 Romie Cueto [address] [place] [address] Cardiology 05/13/18 Levy Ibarra MD [address] [facility] [address] [place] [address] Physician Cardiology 07/11/18 Podlogar, ALVIN Shepard.ASSISTED LIVING CARE MANAGER [address] [place] [address] Photovoltaic Fabrication Technician [facility] 04/08/24 Ground School Instructor Relationship Specialty Start Date End Date Tony Soares MD [address] [facility] [place] [address] PCP - General Family Medicine 08/14/16 Felton Yancey MD [address] [facility] 3 [place] [address] Pain Management 05/13/18 Endre Lucio MD [address] [place] [address] Dermatology 05/13/18 Romie Cueto MD [address] [place] [address] Cardiology 05/13/18 Levy Ibarra MD [address] [address] Physician Cardiology 07/11/18 Podlogar, ALVIN Shepard.ASSISTED LIVING CARE MANAGER [address] [place] [address] Photovoltaic Fabrication [facility]ician[facility] 04/08/24 Ground School Instructor Relationship Specialty Start Date End Date Tony Soares MD [address] [place] [address] PCP - General Family Medicine 08/14/16 Felton Yancey MD [address] [facility] 3 [place] [address] Pain Management 05/13/18 Ender Lucio MD [address] [place] [address] Dermatology 05/13/18 Romie Cueto MD [address] [place] [address] Cardiology 05/13/18 Levy Ibarra MD [address] [facility] 3[address] [place] [address] Physician Cardiology 07/11/18 PodlogarDrea APRN.ASSISTED LIVING CARE MANAGER [address] [place] [address] Photovoltaic Fabrication Technician Family Medicine 04/08/24 Ground School Instructor Relationship Specialty Start Date End Date Tony Soares MD [address] [place] [address] PCP - General Family Medicine 08/14/16 Felton Yancey MD [address] [address] Pain Management 05/13/18 Ender Lucio MD [address] [place] [address] Dermatology 05/13/18 Romie Cueto MD [address] [place] [address] Cardiology 05/13/18 Levy Ibarra MD [address] [place] [address] Physician Cardiology 07/11/18 Podlogar, ALVIN Shepard.ASSISTED LIVING CARE MANAGER [address] [facility] [place] [address] Photovoltaic Fabrication Technician Family Medicine 04/08/24 Ground School Instructor Relationship Specialty Start Date End Date Tony Soares MD [address] [facility] [address] PCP - General Family Medicine 08/14/16 Felton Yancey MD [address] [place] [address] Pain Management 05/13/18 Ender Lucio MD [address] [place] [address] Dermatology 05/13/18 Romie Cueto MD [address] [place] [address] Cardiology 05/13/18 Levy Ibarra MD [address] [facility] [address] [place] [address] Physician Cardiology 07/11/18 Podlogar, ALVIN Shepard.ASSISTED LIVING CARE MANAGER [address] [facility] [place] [place] [address] Photovoltaic Fabrication Technician Family [facility] 04/08/24 Ground School Instructor Relationship Specialty Start Date End Date Tony Soares MD [address] [facility] [address] PCP - General Family Medicine 08/14/16 Felton Yancey MD [address] [place] [address] Pain Management 05/13/18 Ender Lucio MD [address] [place] [address] Dermatology 05/13/18 Romie Cueto MD [address] [place] [address] Cardiology 05/13/18 Levy Ibarra MD [address] [facility] [address] [place] [address] Physician Cardiology 07/11/18 PodlogDrea cox APRN.ASSISTED LIVING CARE MANAGER [address] [place] [address] Photovoltaic Fabrication Technician [facility] 04/08/24 Ground School Instructor Relationship Specialty Start Date End Date Tony Soares MD [address] [facility] [address] PCP - General Family Medicine 08/14/16 Felton Yancey MD [address] [place] [address] Pain Management 05/13/18 Ender Lucio MD [address] [place] [address] Dermatology 05/13/18 Romie Cueto MD [address] [place] [address] Cardiology 05/13/18 Levy Ibarra MD [address] [address] Physician Cardiology 07/11/18 PodlogarDrea APRN.ASSISTED LIVING CARE MANAGER [address] [place] [address] Photovoltaic Fabrication Technician Family Medicine 04/08/24 Ground School Instructor Relationship Specialty Start Date End Date Tony Soares MD [address] [place] [address] PCP - General Family Medicine 08/14/16 Felton Yancey MD [address] [address] Pain Management 05/13/18 Ender Lucio MD [address] [place] [address] Dermatology 05/13/18 Romie Cueto MD [address] [place] [address] Cardiology 05/13/18 Levy Ibarra MD [address] [facility] [address] [place] [address] Physician Cardiology 07/11/18 Podlogar, ALVIN Shepard.ASSISTED LIVING CARE MANAGER [address] [facility] [address] [facility]ovoltaic [facility]rication [facility] 04/08/24 Ground School Instructor Relationship Specialty Start Date End Date Tony Soares MD [address] [facility] [place] [address] PCP - General Family Medicine 08/14/16 Felton Yancey MD [address] [address] Pain Management 05/13/18 Ender Lucio MD [address] [place] [address] Dermatology 05/13/18 Romie Cueto MD [address] [place] [address] Cardiology 05/13/18 Levy Ibarra MD [address] [facility] [address] [address] Physician Cardiology 07/11/18 Podlogar, ALVIN Shepard.ASSISTED LIVING CARE MANAGER [address] [facility] [place] [address] [facility] 04/08/24 Rahul Esposito APRN.ASSISTED LIVING CARE MANAGER [address] [place], [place] [id number] [facility] 07/14/24 Ground School Instructor Relationship Specialty Start Date End Date Tony Soares MD [address] [place], [place] [address] PCP - General Family Medicine 08/14/16 Felton Yancey MD [address] [place] [address] Pain Management 05/13/18 Ender Lucio MD [address] [place] [address] Dermatology 05/13/18 Romie Cueto MD [address] [place] [address] Cardiology 05/13/18 Levy Ibarra MD [address] [address] Physician Cardiology 07/11/18 PodlogDrea cox APRN.ASSISTED LIVING CARE MANAGER [address] [place] [address] [facility] 04/08/24 Rahul Esposito APRN.ASSISTED LIVING CARE MANAGER [address] [place], [place] [id number] [facility] 07/24/24 Team Status: Active Member Role Status Dates Dr. Bjorn Soares MD Primary Care Provider Acti ve Team Status: Inactive Member Role Status Dates Dr. Bjorn Soares MD Primary Care Provider Acti ve Start: April 05, 2024 End: April 05, 2024 Dr. Steve Interiano DO Attending Provider Active Start : April 05, 2024 End: April 05, 2024 Dr. Steve Interiano DO Emergency Provider Active Start : April 05, 2024 End: April 05, 2024 Team Status: Inactive Member Role Status Dates Dr. Bjorn Soares MD Primary Care Provider Acti ve Start: April 17, 2024 End: April 17, 2024 Dr. Bjorn Soares MD Referring Provider Active Start: April 17, 2024 End: April 17, 2024 JAGJIT Alanis Attending Provider Active Start: April 17, 2024 End: April 17, 2024 Team Status: Inactive Member Role Status Dates Dr. Bjorn Soares MD Primary Care Provider Acti ve Start: June 15, 2024 End: June 18, 2024 Dr. Jake Montanez DO Emergency Provider Active S tart: June 15, 2024 End: June 18, 2024 Dr. Erica Anand DO Admit Provider Active Start : June 15, 2024 End: June 18, 2024 Dr. Erica Anand DO Other Provider Active Start : June 15, 2024 End: June 18, 2024 Dr. Elmer Serrano DO Attending Provider Active Start: June 15, 2024 End: June 18, 2024 Team Status: Active Member Role Status Dates Dr. Bjorn Soares MD Primary Care Provider Acti ve Start: June 16, 2024 Dr. Jake Montanez DO Emergency Provider Active S tart: June 16, 2024 Dr. Erica Anand DO Admit Provider Active Start : June 16, 2024 Dr. Erica Anand DO Other Provider Active Start : June 16, 2024 Dr. Elmer Serrano DO Attending Provider Active Start: June 16, 2024 Dr. Elmer Serrano DO Other Provider Active Star t: June 16, 2024 Team Status: Active Member Role Status Dates Dr. Bjorn Soares MD Primary Care Provider Acti ve Start: June 16, 2024 Dr. Sarah Suggs MD Attending Provider Activ e Start: June 16, 2024 Team Status: Active Member Role Status Dates Dr. Bjorn Soares MD Primary Care Provider Acti ve Start: June 17, 2024 Dr. Jake Montanez DO Emergency Provider Active S tart: June 17, 2024 Dr. Erica Anand , Admit Provider Active Start : June 17, 2024 Dr. Erica Anand , Other Provider Active Start : June 17, 2024 Dr. Elmer Serrano DO Attending Provider Active Start: June 17, 2024 Dr. Elmer Serrano DO Other Provider Active Star t: June 17, 2024 Team Status: Active Member Role Status Dates Dr. Bjorn Soares MD Primary Care Provider Acti ve Start: June 18, 2024 Dr. Jake Montanez DO Emergency Provider Active S tart: June 18, 2024 Dr. Ercia Anand , Admit Provider Active Start : June 18, 2024 Dr. Erica Anand DO Other Provider Active Start : June 18, 2024 Dr. Elmer Serrano DO Attending Provider Active Start: June 18, 2024 Dr. Elmer Serrano DO Other Provider Active Star t: June 18, 2024 Team Status: Inactive Member Role Status Dates Dr. Bjorn Soares MD Primary Care Provider Acti ve Start: June 18, 2024 End: June 18, 2024 Dr. Elmer Suresh DO Attending Provider Active Start: June 18, 2024 End: June 18, 2024 Dr. Elmer Suresh DO Emergency Provider Active Start: June 18, 2024 End: June 18, 2024 Team Status: Inactive Member Role Status Dates Dr. Bjorn Soares MD Primary Care Provider Acti ve Start: August 01, 2024 End: August 01, 2024 Dr. Daniel Dodge MD Emergency Provider Active Start: August 01, 2024 End: August 01, 2024 Ground School Instructor Relationship Specialty Start Date End Date Tony Soares MD [address] [place] [address] PCP - General Family Medicine 08/14/16 Felton Yancey MD [address] [address] Pain Management 05/13/18 Ender Lucio MD [address] [place] [address] Dermatology 05/13/18 Romie Cueto MD [address] [place] [address] Cardiology 05/13/18 Levy Ibarra MD [address] [address] Physician Cardiology 07/11/18 PodlogDrea cox APRN.ASSISTED LIVING CARE MANAGER [address] [place] [address] Photovoltaic Fabrication [facility] 04/08/24 Rahul Esposito APRN.ASSISTED LIVING CARE MANAGER [address] [place] [address] [facility] 07/24/24 Team Status: Inactive Member Role Status Dates Dr. Bjorn Soares MD Primary Care Provider Acti ve Start: August 01, 2024 End: August 01, 2024 Dr. Daniel Dodge MD Attending Provider Active Start: August 01, 2024 End: August 01, 2024 Dr. Daniel Dodge MD Emergency Provider Active Start: August 01, 2024 End: August 01, 2024 Team Status: Inactive Member Role Status Dates Dr. Bjorn Soares MD Primary Care Provider Acti ve Start: August 10, 2024 End: August 10, 2024 Dr. Bjorn Soares MD Referring Provider Active Start: August 10, 2024 End: August 10, 2024 Lo Bradford NP-C Attending Provider Active Start: August 10, 2024 End: August 10, 2024 Team Status: Inactive Member Role Status Dates Dr. Bjorn Soares MD Primary Care Provider Acti ve Start: September 04, 2024 End: September 04, 2024 Dr. Bjorn Soares MD Referring Provider Active Start: September 04, 2024 End: September 04, 2024 Ashtyn Rodriguez MEDICAL AFFAIRS SPECIALIST, MEDICAL AFFAIRS SPECIALIST-C Attending Provider Active Start: September 04, 2024 End: September 04, 2024 Team Status: Inactive Member Role Status Dates Dr. Bjorn Soares MD Primary Care Provider Acti ve Start: September 09, 2024 End: September 09, 2024 Dr. Romaine Rivero MD Emergency Provider Active Sta rt: September 09, 2024 End: September 09, 2024 Ground School Instructor Relationship Specialty Start Date End Date Tony Soares MD [address] [place] [address] PCP - General Family Medicine 08/14/16 Felton Yancey MD [address] [facility] [address] [place] [address] Pain Management 05/13/18 Ender Lucio MD [address] [place] [address] Dermatology 05/13/18 Romie Cueto MD [address] [place] [address] Cardiology 05/13/18 Levy Ibarra MD [address] [facility] [address] [place] [address] Physician Cardiology 07/11/18 PodlogDrea cox APRN.ASSISTED LIVING CARE MANAGER [address] [place] [address] Photovoltaic Fabrication Technician Family Medicine 04/08/24 Rahul Esposito APRN.ASSISTED LIVING CARE MANAGER [address] [place] [address] Photovoltaic Fabrication Technician Family Medicine 10/12/24 Ground School Instructor Relationship Specialty Start Date End Date Tony Soares MD [address] [place] [address] PCP - General Family Medicine 08/14/16 Felton Yancey MD [address] [facility] [address] [place] [address] Pain Management 05/13/18 Ender Lucio MD [address] [place] [address] Dermatology 05/13/18 Romie Cueto MD [address] [place] [address] Cardiology 05/13/18 Levy Ibarra MD [address] [address] Physician Cardiology 07/11/18 PodlogarDrea APRN.ASSISTED LIVING CARE MANAGER [address] [place] [address] Photovoltaic Fabrication Technician Family Medicine 04/08/24 Rahul Esposito APRN.ASSISTED LIVING CARE MANAGER [address] [place] [address] Photovoltaic Fabrication Technician [facility] 10/12/24 Ground School Instructor Relationship Specialty Start Date End Date Tony Soares MD [address] [place] [address] PCP - General Family Medicine 08/14/16 Felton Yanecy MD [address] [facility] [address] [place] [address] Pain Management 05/13/18 Ender Lucio MD [address] [place] [address] Dermatology 05/13/18 Romie Cueto MD [address] [place] [address] Cardiology 05/13/18 Levy Ibarra MD [address] [facility] [address] [place] [id number] Physician Cardiology 07/11/18 PodlogarDrea APRN.ASSISTED LIVING CARE MANAGER [address] [place] [address] [facility] 04/08/24 Rahul Esposito APRN.ASSISTED LIVING CARE MANAGER [address] [place] [address] [facility] 10/12/24 Goals (unrecognized section and content) Goals may be documented in a n alternate sectionGoals may be documented in an alternate sectionGoals may be documented in an alternate sectionGoals may be documented in an alternate sectionGoals may be documented in an alternate sectionGoals may be documented in an alternate sectionGoals may be documented in an alternate section INFORMATION SOURCE (unrecogn ized section and content) DATE CREATED AUTHOR 09/15/2024 [facility] DATE CREATED AUTHOR AUTHOR'S HUSEYIN ATION 12/27/2024 [facility] FOR RECORDS PERTAINING TO PATIENTS WHO ARE [...] BE BASED ON THE PRIMARY CLINICAL RECORDS. [facility] [employer] [facility]. provides no warranty or guarantee of the accuracy or completeness of information in this document.
[2025-01-26 17:25] LABS: Color, Urine Straw (Yellow); Glucose, Dipstick Normal (Normal); Ketone-Dipstick 5 mg/dl (Negative); Leukocyte Esterase-Dipstick 25 /ul (Negative); Nitrite-Dipstick Negative (Negative); Occult Blood-Urine 25 /ul (Negative); Protein-Dipstick 15 mg/dl (Negative); Specific Gravity, Urine 1.010 (1.002-1.030); Urine Bilirubin Dipstick Negative (Negative)
[2025-01-26] MEDS: Vancomycin HCl 1,000 MG in 0.9% Normal Saline (250mL Bag) 250 ML 167 MG IV (17:37)
--- NOTE | 2025-01-26 17:55 | RAD_ITS ---
PROCEDURE: RIGHT SHOULDER MIN 2 VIEWS 01/26/2025 REASON FOR EXAM: RIGHT SHOULDER PAIN TECHNIQUE: Procedure Code: RADSH Modality: DX Procedure: SHOULDER MIN 2 VIEWS Laterality: Right COMPARISON: None. FINDINGS: No acute fracture or dislocation. Alignment is anatomic. Preserved joint spaces. No aggressive osseous lesion. No marked soft tissue swelling or radiopaque foreign body. RAD/Shoulder min 2 Views IMPRESSION: No acute fracture or dislocation. Reading Location: [id number]
[2025-01-26 18:59] LABS: Red Blood Cells-Urine 0-5 SEEN /hpf (0-5); Squamous Epithelial Cells - UA 0-5 SEEN /hpf (5-10)
[2025-01-26] MEDS: 0.9% Normal Saline (1000mL) 1,000 ML 50 ML IV (19:23)
[2025-01-26] MEDS: Potassium Chloride Oral Tablet 20 MEQ 40 MEQ PO (20:00)
--- NOTE | 2025-01-26 20:03 | PCM.RX.CS ---
Consult Antibiotic Management Pharmacy has been consulted to manage selected antibiotic: Vancomycin Type of Intervention Type of Consult: New start Suspected Infection Suspected Infection: Skin/Soft tissue Labs Labs: Sodium 135 mmol/L (133-145) 01/26/25 13:50 Potassium 3.2 mmol/L (3.3-5.1) L 01/26/25 13:50 Chloride 101 mmol/L (98-108) 01/26/25 13:50 Carbon Dioxide 21.5 mmol/L (21.0-32.0) 01/26/25 13:50 Anion Gap 13 (5-15) 01/26/25 13:50 BUN 13 mg/dL (4-19) 01/26/25 13:50 Creatinine 0.81 mg/dL (0.70-1.20) 01/26/25 13:50 Est GFR (MDRD) Non-Af 71 (>60) 01/26/25 13:50 BUN/Creatinine Ratio 15.5 RATIO (10-20) 01/26/25 13:50 Glucose 69 mg/dL (70-99) L 01/26/25 13:50 Dosing Weight Weight used for dosin.5 kg Estimated Creatinine Clearance Estimated Creatinine Clearance: 43.85 Goal Trough Goal Trough: 15-20 mcg/mL Pharmacy Plan for Drug Dosing Pharmacy Plan for Drug Dosing: Pharmacy Service will continue to monitor and adjust dosing as required. NEW START IV VANCOMYCIN Consulting Physician: Dr. Palma Indication: Cellulitis Goal Trough: 15-20 SrCr: 0.81 CrCl: 43.85 Comments: Vancomycin Dose: 1000 mg Q24H Pending Level: 01/28/25 @ 1630 Date/Time Labs Ordered Labs to be done on [date and time ordered]: 01/28/25 @ 1634
[2025-01-26] MEDS: BRIMONIDINE 0.2% 5ML BOTTLE 2 DRP EACH EYE (22:15)
[2025-01-26] MEDS: Senna/Docusate Sodium 1 Tablet 2 TABLET PO (22:16)
[2025-01-26] MEDS: Dorzolamide HCL/Timolol 10 ml Bottle 1 DRP EACH EYE (22:24)
[2025-01-26] MEDS: APIXABAN 2.5 MG TABLET (WCH) PO (22:35)
[2025-01-26] MEDS: Potassium Chloride Oral Tablet 20 MEQ PO (22:36)
[2025-01-27] MEDS: Piperacil/Tazobactam 3.375 GM in 0.9% Normal Saline (50mL MB+) 50 ML IV ×3 (05:02→22:42)
[2025-01-27 05:07] VITALS: BP 104/67; PULSE 63; RESP 16; TEMP 35.9; O2SAT 94
[2025-01-27 05:46] LABS: Hematocrit 38.8 % (37-47); Hemoglobin 12.7 g/dL (12.0-15.0); Immature Granulocytes Count 0.010 X10^3/uL (0.0-0.0); Mean Corp Hgb Conc 32.7 g/dL (32-36); Mean Corpuscular Volume 93.9 fL (81-99); Mean Platelet Vol. 9.5 fl (6.2-12.0); NRBC Flagged by Analyzer 0 % (0-5); Platelet Count 148 K/mm3 (150-450); RBC Distribution Width CV 15.4 % (11.6-14.6); RBC Distribution Width SD 53.1 fl (35.1-43.9); Red Blood Count 4.13 M/mm3 (4.2-5.4); White Blood Count 5.1 K/mm3 (4.4-11.0)
[2025-01-27 06:40] LABS: Anion Gap 9 (5-15); BUN 10 mg/dL (4-19); BUN/Creat Ratio 15.1 RATIO (10-20); Calcium,Total 8.1 mg/dL (7.6-11.0); Carbon Dioxide 19.4 mmol/L (21.0-32.0); Chloride 110 mmol/L (98-108); Estimated Creatinine Clearance 44.40 ml/min (50-250); Glucose 87 mg/dL (70-99); Potassium 3.9 mmol/L (3.3-5.1)
--- NOTE | 2025-01-27 07:40 | PN.HOSP_ITS ---
Reason for Visit Chief Complaint: Buttock pain Objective Data Objective Data Vital Signs: Vital Signs Temp Pulse Resp BP Pulse Ox O2 Del Method 96.7 F L 63 16 104/67 94 Room Air 01/27/25 05:07 01/27/25 05:07 01/27/25 05:07 01/27/25 05:07 01/27/25 05:07 01/27/25 05:07 Oxygen Delivery Method Room Air Weight: 131 lb 2.801 oz Body Mass Index (BMI) 22.5 Intake & Output: Intake and Output for Last 24 Hours 01/25/25 01/26/25 01/27/25 23:59 23:59 23:59 Intake Total 820 / 1120 1039.17 / 1039.17 Output Total 235 / 235 Balance 585 / 885 1039.17 / 1039.17 Lab / Micro Data 01/27/25 05:18 01/27/25 05:18 Labs: Laboratory Results - last 24 hr 01/26/25 13:50: WBC 7.8, RBC 4.51, Hgb 14.3, Hct 41.9, MCV 92.9, MCH 31.7, MCHC 34.1, RDW Std Deviation 52.3 H, RDW Coeff of Arben 15.3 H, Plt Count 165, MPV 9.4, Immature Gran % (Auto) 0.300, Neut % (Auto) 77.9 H, Lymph % (Auto) 13.1 L, [place] % (Auto) 8.2, Eos % (Auto) 0.1, Baso % (Auto) 0.4, Absolute Neuts (auto) 6.1, Absolute Lymphs (auto) 1.02, Nucleated RBC % 0, Sodium 135, Potassium 3.2 L, Chloride 101, Carbon Dioxide 21.5, Anion Gap 13, BUN 13, Creatinine 0.81, Estim Creat Clear Calc 43.85 L, Est GFR (MDRD) Non-Af 71, BUN/Creatinine Ratio 15.5, G lucose 69 L, Calcium 7.7, Total Bilirubin 0.48, AST 21, ALT 15, Alkaline Phosphatase 77, Total Protein 6.3, Albumin 3.2 L, Globulin 3.0, Albumin/Globulin Ratio 1.1 01/26/25 16:25: Urine Color Straw, Urine Clarity Cloudy, Urine pH 6.5, Ur Specific [place] 1.010, Urine Protein 15 H, Urine Glucose (UA) Normal, Urine Ketones 5 H, Urine Occult Blood 25 H, Urine Nitrite Negative, Urine Bilirubin Negative, Urine Urobilinogen Normal, Ur Leukocyte Esterase 25 H, Urine RBC 0-5 SEEN, Urine WBC 0-5 SEEN, Ur Squamous Epith Cells 0-5 SEEN, Urine Bacteria 0 SEEN, Urine Mucus 0 SEEN 01/27/25 05:18: WBC 5.1, RBC 4.13 L, Hgb 12.7, Hct 38.8, MCV 93.9, MCH 30.8, MCHC 32.7, RDW Std Deviation 53.1 H, RDW Coeff of Arben 15.4 H, Plt Count 148 L, MPV 9.5, Immature Gran % (Auto) 0.200, Neut % (Auto) 59.9, Lymph % (Auto) 26.4, [place] % (Auto) 9.8, Eos % (Auto) 2.7, Baso % (Auto) 1.0, Absolute Neuts (auto) 3.1, Absolute Lymphs (auto) 1.35, Nucleated RBC % 0, Sodium 138, Potassium 3.9, Chloride 110 H, Carbon Dioxide 19.4 L, Anion Gap 9, BUN 10, Creatinine 0.68 L, E stim Creat Clear Calc 44.40 L, Est GFR (MDRD) Non-Af 85, BUN/Creatinine Ratio 15.1, Glucose 87, Calcium 8.1 Radiography Diagnostic Testing: Radiology Impression Abdomen/Pelvis CT 01/26/25 12:49 IMPRESSION: No acute abdominopelvic abnormalities. Reading Location: [facility] Shoulder X-Ray 01/26/25 17:55 IMPRESSION: No acute fracture or dislocation. Reading Location: [facility] Physical Exam Narrative Seen and examined Patient has mild dementia and does not remember well. Does not remember chronological order of the events. Physical exam General: Alert, Oriented x3, Cooperative. BMI 22.5 kg/m? HEENT: Atraumatic, PERRLA, EOMI, Normocephalic. Oral: Oral mucosa moist. No Gingival or Mucosal Lesions/ Ulcerations Neck: Supple, No JVD, Negative Carotid Bruits Chest wall/Lungs: Air entry equal in bilateral lung bases. No crepitation/rhonchi Cardiovascular: Regular rate and rhythm, Normal S1,S2, No M/G/R Abdomen: Bowel Sounds Present, Soft, Non Tender, Non-Distended : No dysuria. No renal angle tenderness. No suprapubic tenderness. Extremities: No edema, Capillary Refill Less than 3 Seconds Skin: Dry, tender erythematous slightly yellowish skin over coccyx at cleft. Tiny dry ulcer with no open drainage. No obvious gangrenous skin. Musculoskeletal: No Tenderness to Palpation of Joints or Extremities Neurological: Cranial nerves II-XII grossly intact, DTR 2+/4. No acute focal neurological deficit. Psych/Mental Status: Memory loss/early dementia Assessment & Plan Assessment/Plan (1) Cellulitis of buttock, left: PLAN: Plan 84-year-old female came to ED with increased pain weakness on the left side. Episode of dizziness 2 days ago. Over the past few days increased pain in the left buttock and has been in the week with her legs as per daughter. No acute change in urinary symptoms but chronic increased frequency. No dysuria. No fever or chills # Left buttock cellulitis - Patient with cellulitis on the left buttock which is very small with no clinical features of abscess or drainage. - CT of the abdomen pelvis did not note any abscess or acute abnormalities I requested Dr. Boudreaux and she examined. It is local cellulitis area does not think any surgical intervention needed regarding drainage and it might make the condition worse. Continue IV antibiotic. Local wound culture shows 4+ GPC, 1+ epithelial cell, 1+ GPR. Therefore continue broad-spectrum IV antibiotics until MRSA is ruled out #Hypokalemia: Replaced. Repeat labs shows potassium 3.9 normal #Paroxysmal Atrial Fibrillation -Rate control: Continue diltiazem -Anticoagulation: Continue Eliquis #Hypertension - Continue diltiazem, hold losartan as blood pressure is 119/106 to allow for possible need for pain control #GERD -Continue famotidine #DVT ppx: Patient already on full dose anticoagulation Microbiology Past 72 Hours 01/27/25 11:05 Wound - Buttock Gram Stain - Final Laboratory Results 01/26/25 13:50: Sodium 135, Potassium 3.2 L, Chloride 101, Carbon Dioxide 21.5, Anion Gap 13, BUN 13, Creatinine 0.81, Estim Creat Clear Calc 43.85 L, Est GFR (MDRD) Non-Af 71, BUN/Creatinine Ratio 15.5, Glucose 69 L, Calcium 7.7, Total Bilirubin 0.48, AST 21, ALT 15, Alkaline Phosphatase 77, Total Protein 6.3, A lbumin 3.2 L, Globulin 3.0, Albumin/Globulin Ratio 1.1 01/26/25 16:25: Urine Color Straw, Urine Clarity Cloudy, Urine pH 6.5, Ur Specific [place] 1.010, Urine Protein 15 H, Urine Glucose (UA) Normal, Urine Ketones 5 H, Urine Occult Blood 25 H, Urine Nitrite Negative, Urine Bilirubin Negative, Urine Urobilinogen Normal, Ur Leukocyte Esterase 25 H, Urine RBC 0-5 SEEN, Urine WBC 0-5 SEEN, Ur Squamous Epith Cells 0-5 SEEN, Urine Bacteria 0 SEEN, Urine Mucus 0 SEEN 01/27/25 05:18: WBC 5.1, RBC 4.13 L, Hgb 12.7, Hct 38.8, MCV 93.9, MCH 30.8, MCHC 32.7, RDW Std Deviation 53.1 H, RDW Coeff of Arben 15.4 H, Plt Count 148 L, MPV 9.5, Immature Gran % (Auto) 0.200, Neut % (Auto) 59.9, Lymph % (Auto) 26.4, [place] % (Auto) 9.8, Eos % (Auto) 2.7, Baso % (Auto) 1.0, Absolute Neuts (auto) 3.1, Absolute Lymphs (auto) 1.35, Nucleated RBC % 0, Sodium 138, Potassium 3.9, Chloride 110 H, Carbon Dioxide 19.4 L, Anion Gap 9, BUN 10, Creatinine 0.68 L, E stim Creat Clear Calc 44.40 L, Est GFR (MDRD) Non-Af 85, BUN/Creatinine Ratio 15.1, Glucose 87, Calcium 8.1 Charges/Coding Visit Charges Inpatient E&M: 63972 Subs Hosp L2
[2025-01-27 09:19] VITALS: BP 127/59; PULSE 82; RESP 16; TEMP 36.6; O2SAT 100
[2025-01-27] MEDS: Dorzolamide HCL/Timolol 10 ml Bottle 1 DRP EACH EYE ×2 (09:48→22:34)
[2025-01-27] MEDS: BRIMONIDINE 0.2% 5ML BOTTLE 2 DRP EACH EYE ×2 (09:48→22:34)
[2025-01-27] MEDS: Latanoprost 0.005% 1 Bottle 1 DRP EACH EYE (09:48)
[2025-01-27] MEDS: Potassium Chloride Oral Tablet 20 MEQ PO ×2 (09:51→22:35)
[2025-01-27] MEDS: APIXABAN 2.5 MG TABLET (WCH) PO ×2 (09:54→22:35)
--- NOTE | 2025-01-27 11:57 | CASEMGMT ---
Addendum entered by Cheri Lopez 01/27/25 13:57: Social Work- SW called pt son and left a voicemail to collaborate on discharge planning. DIPAK Jarvis Original Note: SW Assessment: Face to Face with pt for initial transition planning/care coordination assessment. SW introduced self and role at [facility], pt voices understanding and consents to assessment. Care providers, pharmacy, and demographics verified/updated. PCP: Rodger Specialists: Luc Gastro & [facility] Cardiology Preferred Pharmacy: [facility] Insurance: [facility] A & B; [employer] supplemental Prescription Benefit: yes LNOK: James mckee Living Arrangements: Pt lives with son and [id number] in a single story home. Pt reports she bathes and dresses self. Pt reports dtr-in-law cooks or she eats pre-made meals. Pt reports that son sets up med box and pt takes independently; reporting this week that she took two days of med on the same day last week and ended up very ill. Transportation: Pt son and [id number] drive pt DME:Giovanni VAL[employer] HHC/SNF: Reports has had OP therapy prior. Pt states no concerns with going home at time of dc. Pt states no further concerns/needs. Pt family has applied for [facility] (pt has a significant spend down) and was seeking [place] placement before deciding that due to safety/cognitive issues, that SNF may be a more appropriate placement. SW will follow up with family following therapy assessment. DIPAK Jarvis
--- NOTE | 2025-01-27 14:30 | CASEMGMT ---
Social Work- SW received a call back from James, pt son and AMARJIT. James reports that they have worked for months on AL waiver. James reports that they have last six months of pt bank statements to show account is under $2k to submit Wednesday. Pt son reports that pt has well under $2k in accounts. James agreeable to having [facility] assist and signing form for auth rep if there are additional needs after Wednesday. James has been working on placement at [facility]. James would like SNF referral to [facility] for transition to [place] following MCR stay. Pt son reports that starting Wednesday, there will be no one home with pt for 12 hrs/day due to work schedule changes. Pt son reports that pt sits for 10+ hrs a day in recliner which he feels is why pt has wounds. Pt son shared stories of pt asking to go home and reporting that she is at the neighbors when she is actually at home, as well as pt found wandering in the road. PACO completed referral to [facility]. PACO remains available to follow. DIPAK Jarvis
[2025-01-27 14:57] VITALS: BP 147/77; PULSE 68; RESP 16; TEMP 36.8; O2SAT 97
[2025-01-27] MEDS: Vancomycin HCl 1,000 MG in 0.9% Normal Saline (250mL Bag) 250 ML 250 MG IV (17:33)
[2025-01-27 19:54] VITALS: BP 139/64; PULSE 94; RESP 15; TEMP 37.5; O2SAT 98
[2025-01-28] VITALS: RESP 15
[2025-01-28] MEDS: MELATONIN 10 MG TABLET PO (01:15)
[2025-01-28 05:00] VITALS: BP 109/60; PULSE 63; RESP 15; TEMP 36.7; O2SAT 95
[2025-01-28] MEDS: Piperacil/Tazobactam 3.375 GM in 0.9% Normal Saline (50mL MB+) 50 ML IV ×3 (06:17→21:34)
[2025-01-28] MEDS: Latanoprost 0.005% 1 Bottle 1 DRP EACH EYE (09:00)
[2025-01-28] MEDS: BRIMONIDINE 0.2% 5ML BOTTLE 2 DRP EACH EYE ×2 (09:00→21:51)
[2025-01-28] MEDS: Dorzolamide HCL/Timolol 10 ml Bottle 1 DRP EACH EYE ×2 (09:00→21:50)
[2025-01-28] MEDS: Potassium Chloride Oral Tablet 20 MEQ PO ×2 (09:01→21:47)
[2025-01-28] MEDS: APIXABAN 2.5 MG TABLET (WCH) PO ×2 (09:05→21:45)
[2025-01-28 09:09] VITALS: BP 136/90; PULSE 65; RESP 16; TEMP 36.6; O2SAT 96
--- NOTE | 2025-01-28 10:56 | PCM.PN.HOSP ---
Reason for Visit Chief Complaint: Buttock pain Objective Data Objective Data Vital Signs: Vital Signs Temp Pulse Resp BP Pulse Ox O2 Del Method 98 F 65 16 136/90 H 96 Room Air 01/28/25 09:09 01/28/25 09:09 01/28/25 09:09 01/28/25 09:09 01/28/25 09:09 01/28/25 09:10 Oxygen Delivery Method Room Air Weight: 131 lb 2.801 oz Body Mass Index (BMI) 22.5 Intake & Output: Intake and Output for Last 24 Hours 01/26/25 01/27/25 01/28/25 23:59 23:59 23:59 Intake Total 820 / 1120 1409.17 / 1809.17 450 / 450 Output Total 235 / 235 600 / 1100 500 / 500 Balance 585 / 885 809.17 / 709.17 -50 / -50 Lab / Micro Data 01/27/25 05:18 01/27/25 05:18 Micro: Microbiology 01/27/25 11:05 Wound - Buttock Gram Stain - Final 01/27/25 11:05 Wound - Buttock Wound Culture - Preliminary Mixed Gram Positive Organisms Physical Exam Narrative Seen and examined Patient has mild dementia and does not remember well. Does not remember chronological order of the events. Mild distention on the coccygeal dressing as per the nurse Physical exam General: Alert, Oriented x3, Cooperative. BMI 22.5 kg/m? HEENT: Atraumatic, PERRLA, EOMI, Normocephalic. Oral: Oral mucosa moist. No Gingival or Mucosal Lesions/ Ulcerations Neck: Supple, No JVD, Negative Carotid Bruits Chest wall/Lungs: Air entry equal in bilateral lung bases. No crepitation/rhonchi Cardiovascular: Regular rate and rhythm, Normal S1,S2, No M/G/R Abdomen: Bowel Sounds Present, Soft, Non Tender, Non-Distended : No dysuria. No renal angle tenderness. No suprapubic tenderness. Extremities: No edema, Capillary Refill Less than 3 Seconds Skin: Mildly stained yellowish/dried blood: Dry, nontender, erythematous slightly yellowish skin over coccyx at cleft. Tiny dry ulcer with no open drainage. No obvious gangrenous skin. Musculoskeletal: No Tenderness to Palpation of Joints or Extremities Neurological: Cranial nerves II-XII grossly intact, DTR 2+/4. No acute focal neurological deficit. Psych/Mental Status: Memory loss/early dementia Assessment & Plan Assessment/Plan (1) Cellulitis of buttock, left: PLAN: Plan 84-year-old female came to ED with increased pain weakness on the left side. Episode of dizziness 2 days ago. Over the past few days increased pain in the left buttock and has been in the week with her legs as per daughter. No acute change in urinary symptoms but chronic increased frequency. No dysuria. No fever or chills # Left buttock cellulitis - Patient with cellulitis on the left buttock which is very small with no clinical features of abscess or drainage. - CT of the abdomen pelvis did not note any abscess or acute abnormalities I requested Dr. Boudreaux and she examined. It is local cellulitis area does not think any surgical intervention needed regarding drainage and it might make the condition worse. Continue IV antibiotic. Local wound culture shows 4+ GPC, 1+ epithelial cell, 1+ GPR. Therefore continue broad-spectrum IV antibiotics until MRSA is ruled out 01/28: Discussed with Dr. Boudreaux. Consult placed for plastic surgeon Dr. Polk to see tomorrow. Continue antibiotics. No role for surgical drainage. Anal hemorrhoids external: Nontender nonthrombosed. Hemorrhoidal suppository, stool softener ordered. #Hypokalemia: Replaced. Repeat labs shows potassium 3.9 normal #Paroxysmal Atrial Fibrillation -Rate control: Continue diltiazem -Anticoagulation: Continue Eliquis #Hypertension - Continue diltiazem, hold losartan as blood pressure is 119/106 to allow for possible need for pain control #GERD -Continue famotidine #DVT ppx: Patient already on full dose anticoagulation Microbiology Past 72 Hours 01/27/25 11:05 Wound - Buttock Gram Stain - Final Laboratory Results 01/26/25 13:50: Sodium 135, Potassium 3.2 L, Chloride 101, Carbon Dioxide 21.5, Anion Gap 13, BUN 13, Creatinine 0.81, Estim Creat Clear Calc 43.85 L, Est GFR (MDRD) Non-Af 71, BUN/Creatinine Ratio 15.5, Glucose 69 L, Calcium 7.7, Total Bilirubin 0.48, AST 21, ALT 15, Alkaline Phosphatase 77, Total Protein 6.3, Albumin 3.2 L, Globulin 3.0, Albumin/Globulin Ratio 1.1 01/26/25 16:25: Urine Color Straw, Urine Clarity Cloudy, Urine pH 6.5, Ur Specific [place] 1.010, Urine Protein 15 H, Urine Glucose (UA) Normal, Urine Ketones 5 H, Urine Occult Blood 25 H, Urine Nitrite Negative, Urine Bilirubin Negative, Urine Urobilinogen Normal, Ur Leukocyte Esterase 25 H, Urine RBC 0-5 SEEN, Urine WBC 0-5 SEEN, Ur Squamous Epith Cells 0-5 SEEN, Urine Bacteria 0 SEEN, Urine Mucus 0 SEEN 01/27/25 05:18: WBC 5.1, RBC 4.13 L, Hgb 12.7, Hct 38.8, MCV 93.9, MCH 30.8, MCHC 32.7, RDW Std Deviation 53.1 H, RDW Coeff of Arben 15.4 H, Plt Count 148 L, MPV 9.5, Immature Gran % (Auto) 0.200, Neut % (Auto) 59.9, Lymph % (Auto) 26.4, [place] % (Auto) 9.8, Eos % (Auto) 2.7, Baso % (Auto) 1.0, Absolute Neuts (auto) 3.1, Absolute Lymphs (auto) 1.35, Nucleated RBC % 0, Sodium 138, Potassium 3.9, Chloride 110 H, Carbon Dioxide 19.4 L, Anion Gap 9, BUN 10, Creatinine 0.68 L, Estim Creat Clear Calc 44.40 L, Est GFR (MDRD) Non-Af 85, BUN/Creatinine Ratio 15.1, Glucose 87, Calcium 8.1 Charges/Coding Visit Charges Inpatient E&M: 99842 Subs Hosp L2
[2025-01-28] MEDS: Polyethylene Glycol 3350 17 GM PACKET PO (13:09)
[2025-01-28 15:00] VITALS: BP 116/69; PULSE 74; RESP 16; TEMP 36.4; O2SAT 98
[2025-01-28 17:04] LABS: Vancomycin, Trough Level 8.9 ug/mL (5.0-15.0)
--- NOTE | 2025-01-28 17:26 | PCM.RX.CS ---
Consult Antibiotic Management Pharmacy has been consulted to manage selected antibiotic: Vancomycin Type of Intervention Type of Consult: Follow-up Suspected Infection Suspected Infection: Skin/Soft tissue Prior Doses of Antibiotics Prior Doses of Antibiotics Received/Current Regimen: Vancomycin 1000 mg Q24H last dose given 01/27 @ 1733 Labs Labs: Sodium 138 mmol/L (133-145) 01/27/25 05:18 Potassium 3.9 mmol/L (3.3-5.1) 01/27/25 05:18 Chloride 110 mmol/L (98-108) H 01/27/25 05:18 Carbon Dioxide 19.4 mmol/L (21.0-32.0) L 01/27/25 05:18 Anion Gap 9 (5-15) 01/27/25 05:18 BUN 10 mg/dL (4-19) 01/27/25 05:18 Creatinine 0.68 mg/dL (0.70-1.20) L 01/27/25 05:18 Est GFR (MDRD) Non-Af 85 (>60) 01/27/25 05:18 BUN/Creatinine Ratio 15.1 RATIO (10-20) 01/27/25 05:18 Glucose 87 mg/dL (70-99) 01/27/25 05:18 Vancomycin Trough 8.9 ug/mL (5.0-15.0) 01/28/25 16:30 Microbiology Microbiology: Microbiology 01/27/25 11:05 Wound - Buttock Gram Stain - Final 01/27/25 11:05 Wound - Buttock Wound Culture - Preliminary Mixed Gram Positive Organisms Dosing Weight Weight used for dosin lb 2.801 oz Estimated Creatinine Clearance Estimated Creatinine Clearance: ~ 44 Goal Trough Goal Trough: 15-20 mcg/mL Pharmacy Plan for Drug Dosing Pharmacy Plan for Drug Dosing: Vancomycin trough = 8.9, increase to 750 mg Q12H Pharmacy Service will continue to monitor and adjust dosing as required. Follow-Up Labs Follow-Up Labs: Trough: Vancomycin Date/Time Labs Ordered Labs to be done on [date and time ordered]: 01/30/25 @ 0500
[2025-01-28] MEDS: Vancomycin HCl 750 MG in 0.9% Normal Saline (250mL Bag) 250 ML 250 MG IV (17:42)
[2025-01-28 21:00] VITALS: BP 138/72; PULSE 64; RESP 15; TEMP 37.2; O2SAT 96
[2025-01-28] MEDS: Senna/Docusate Sodium 1 Tablet 2 TABLET PO (21:53)
[2025-01-28 23:00] VITALS: RESP 15
[2025-01-29 04:00] VITALS: BP 146/76; PULSE 83; RESP 15; TEMP 37.2; O2SAT 98
[2025-01-29] MEDS: Vancomycin HCl 750 MG in 0.9% Normal Saline (250mL Bag) 250 ML 250 MG IV (05:02)
[2025-01-29] MEDS: Piperacil/Tazobactam 3.375 GM in 0.9% Normal Saline (50mL MB+) 50 ML IV (07:04)
[2025-01-29 07:56] LABS: Hematocrit 35.2 % (37-47); Hemoglobin 11.9 g/dL (12.0-15.0); Immature Granulocytes Count 0.030 X10^3/uL (0.0-0.0); Mean Corp Hgb Conc 33.8 g/dL (32-36); Mean Corpuscular Volume 93.1 fL (81-99); Mean Platelet Vol. 9.5 fl (6.2-12.0); NRBC Flagged by Analyzer 0 % (0-5); Platelet Count 177 K/mm3 (150-450); RBC Distribution Width CV 15.7 % (11.6-14.6); RBC Distribution Width SD 53.7 fl (35.1-43.9); Red Blood Count 3.78 M/mm3 (4.2-5.4); White Blood Count 7.7 K/mm3 (4.4-11.0)
[2025-01-29 08:16] VITALS: BP 124/67; PULSE 68; RESP 16; TEMP 36.6; O2SAT 99
--- NOTE | 2025-01-29 08:27 | CASEMGMT ---
Discharge Planning Updates sent to [facility]. Acceptance pending. Beatriz Chatman DC Planning Asst.
[2025-01-29 09:03] LABS: Anion Gap 11 (5-15); BUN 8 mg/dL (4-19); BUN/Creat Ratio 8.9 RATIO (10-20); Calcium,Total 8.2 mg/dL (7.6-11.0); Carbon Dioxide 18.9 mmol/L (21.0-32.0); Chloride 110 mmol/L (98-108); Estimated Creatinine Clearance 38.61 ml/min (50-250); Glucose 100 mg/dL (70-99); Potassium 3.8 mmol/L (3.3-5.1)
[2025-01-29] MEDS: Dorzolamide HCL/Timolol 10 ml Bottle 1 DRP EACH EYE (09:09)
[2025-01-29] MEDS: BRIMONIDINE 0.2% 5ML BOTTLE 2 DRP EACH EYE (09:10)
[2025-01-29] MEDS: Latanoprost 0.005% 1 Bottle 1 DRP EACH EYE (09:10)
[2025-01-29] MEDS: Polyethylene Glycol 3350 17 GM PACKET PO (09:11)
[2025-01-29] MEDS: Senna/Docusate Sodium 1 Tablet 2 TABLET PO (09:12)
[2025-01-29] MEDS: APIXABAN 2.5 MG TABLET (WCH) PO (09:14)
[2025-01-29] MEDS: Potassium Chloride Oral Tablet 20 MEQ PO (09:14)
--- NOTE | 2025-01-29 09:39 | CASEMGMT ---
Discharge Planning [facility] has accepted. Beatriz Chatman DC Planning Asst.
--- NOTE | 2025-01-29 10:34 | EX.PCM.CON.S ---
Assessment & Plan Assessment/Plan (1) Stage 2 skin ulcer of sacral region: PLAN: Q2 hour turns/position changes Pressure offloading air mattress (should get one at home as well) Discuss/determine underlying issues leading to chronic pressure on the sacral region, especially in the setting of ambulatory patient (depression leading to prolonged immobility?) Nutrition labs (A1c, albumin, and prealbumin) should be ordered as part of the workup. For now, continue mepilex dressing with bacitracin daily. Plan for follow up in the wound care center upon discharge. HPI Consult Data Date of Consult: 01/29/25 HPI Narrative HPI Narrative: JIL DÍAZ, is a 84 F who presents with a stage 2 sacral wound 2/2 pressure on the sacrum. She was admitted from the ED 2 days ago for pain over the sacrum and presumed cellulitis. CT scan negative for fluid collections or bony abnormalities. Today on the floor she has stable VS, is afebrile, and has a WBC of 7. [facility] Medical History Atrial fibrillation Acute left lumbar radiculopathy Atrial fibrillation Dyspnea on exertion Wears glasses Cancer Ambulates with cane Bladder disease History of renal disease High cholesterol Easy bruising Migraine headache Injury of head and neck Former smoker Leg cramps History of edema History of stress test History of echocardiogram Cardiology follow-up encounter Shortness of breath on exertion LLQ abdominal pain CKD (chronic kidney disease) stage 3, GFR 30-59 ml/min Heart murmur Concussion Chronic urticaria Basal cell carcinoma Aortic stenosis Nonrheumatic mitral (valve) insufficiency Nonrheumatic aortic (valve) insufficiency Secondary pulmonary arterial hypertension Hyperlipidemia Seasonal allergies Anemia Glaucoma GERD (gastroesophageal reflux disease) Essential (primary) hypertension Premature atrial contractions History of shingles History of basal cell cancer History of rectocele History of melanoma Home Medications ?Medication ?Instructions ?Recorded ?Last Taken ?Type famotidine 40 mg tablet 40 mg PO BID GERD 05/28/17 01/24/25 History dorzolamide 22.3 mg-timolol 6.8 1 drp EACH EYE BID eye heal 12/22/21 01/25/25 History mg/mL eye drops latanoprost 0.005 % eye drops 1 drp EACH EYE DAILY eye health 12/22/21 Unknown History brimonidine 0.2 % eye drops 1 drp EACH EYE BID glaucoma 11/10/22 06/14/24 History cholecalciferol (vitamin D3) 25 2,000 unit PO DAILY supplement 11/10/22 01/24/25 History mcg (1,000 unit) capsule cyanocobalamin (vitamin B-12) 2,000 mcg PO DAILY supplement 11/10/22 01/24/25 History 1,000 mcg tablet melatonin 5 mg tablet 5 mg PO HS PRN sleep 11/10/22 Unknown History Handicap placard #1 ea 04/12/23 Unknown Rx cetirizine 10 mg tablet 10 mg PO Q12H ask pcp 06/15/24 01/24/25 History doxepin 25 mg capsule 25 mg PO QHS PRN anxiety 06/15/24 Unknown History tramadol 50 mg tablet 50 mg PO Q6H PRN PRN pain #10 tabs 06/18/24 Unknown Rx apixaban 5 mg tablet (Eliquis) 5 mg PO BID #180 tabs 09/04/24 01/24/25 Rx atorvastatin 10 mg tablet 10 mg PO QHS cholesterol #90 tabs 09/04/24 01/24/25 Rx diltiazem HCl 120 mg 120 mg PO BID heart #180 caps 09/04/24 Unknown Rx capsule,extended release 24 hr furosemide 40 mg tablet (Lasix) 40 mg PO DAILY #90 tabs 09/04/24 01/25/25 Rx losartan 25 mg tablet 25 mg PO DAILY blood pressure #90 09/04/24 Unknown Rx tabs potassium chloride 20 mEq 20 meq PO BID #180 tabs 09/04/24 01/24/25 Rx tablet,extended release gabapentin 300 mg capsule 300 mg PO QHS pain 09/09/24 01/26/25 History Allergy/AdvReac Type Severity Reaction Status Date / Time oxycodone (From Percocet) AdvReac Upset Verified 01/26/25 19:33 Stomach Family History Mother Anemia Hypertension Brother Hypertension Grandfather Cancer Surgical History Hx of colonoscopy History of bilateral cataract extraction History of hemorrhoidectomy History of repair of right rotator cuff History of laparoscopy History of appendectomy History of hysterectomy Social History household members: family housing: house Smoking Status: Former smoker Tobacco: How many years used: 25 how long ago did patient quit smokin alcohol intake: never substance use type: does not use what type of physical activity do you participate in: none Physical Exam Narrative Sacral wound Female monotype caster present and helped turn. Stage 2 pressure ulcer over sacrum/coccyx, epidermal slough. No fluid collections. No induration. Lab / Micro Data 01/29/25 07:22 01/29/25 07:22 Labs: Laboratory Results - last 24 hr 01/28/25 16:30: Vancomycin Trough 8.9 01/29/25 07:22: WBC 7.7, RBC 3.78 L, Hgb 11.9 L, Hct 35.2 L, MCV 93.1, MCH 31.5, MCHC 33.8, RDW Std Deviation 53.7 H, RDW Coeff of Arben 15.7 H, Plt Count 177, MPV 9.5, Immature Gran % (Auto) 0.400, Neut % (Auto) 75.1 H, Lymph % (Auto) 13.6 L, [place] % (Auto) 9.3, Eos % (Auto) 0.9, Baso % (Auto) 0.7, Absolute Neuts (auto) 5.8, Absolute Lymphs (auto) 1.04, Nucleated RBC % 0, Sodium 140, Potassium 3.8, Chloride 110 H, Carbon Dioxide 18.9 L, Anion Gap 11, BUN 8, Creatinine 0.92, Estim Creat Clear Calc 38.61 L, Est GFR (MDRD) Non-Af 61, BUN/Creatinine Ratio 8.9 L, Glucose 100 H, Calcium 8.2 Micro: Microbiology 01/27/25 11:05 Wound - Buttock Gram Stain - Final 01/27/25 11:05 Wound - Buttock Wound Culture - Preliminary Gram Positive Cocci Gram Positive Cocci#2 Charges/Coding Multi Select Codes Visit Charges Office Visit/Consults: 36371 IP Consult L2
--- NOTE | 2025-01-29 11:34 | TREXTCAR_ITS ---
Diet Diet Order/Speech Therapy: INPATIENT Hospital Diet / Speech Therapy Order(s) 01/26/25 18:54 Diet: Regular - General Food consistency:: Regular Liquid Consistency:: Regular/Thin Routine Orders/Code Status Suppository Type: Dulcolax 10mg Suppository Frequency: Daily PRN Routine Lab Work: BMP (In 1 week) DC O2, CPAP, BIPAP needs Home O2 Discharge instructions: No Wound(s) Coccyx: Wound Type: Pressure Injury Dressing Change: Continue Mepilex dressing with bacitracin daily Suggestions for Active Care Change Position every (hours): 2 Therapies Extremity Affected:: Bilateral Lower Physical Therapy: Eval and Treat Occupational Therapy: Eval and Treat Speech Therapy: Eval and Treat Problem/Diagnosis (1) Stage 2 skin ulcer of sacral region: Status: Acute Code(s): L98.429 - Non-pressure chronic ulcer of back with unspecified severity Plan: Continue Mepilex dressing with bacitracin daily Plan 84-year-old female came to ED with increased pain weakness on the left side. Episode of dizziness 2 days ago. Over the past few days increased pain in the left buttock and has been in the week with her legs as per daughter. No acute change in urinary symptoms but chronic increased frequency. No dysuria. No fever or chills # Left buttock cellulitis - Patient with cellulitis on the left buttock which is very small with no clinical features of abscess or drainage. - CT of the abdomen pelvis did not note any abscess or acute abnormalities I requested Dr. Boudreaux and she examined. It is local cellulitis area does not think any surgical intervention needed regarding drainage and it might make the condition worse. Continue IV antibiotic. Local wound culture shows 4+ GPC, 1+ epithelial cell, 1+ GPR. Therefore continue broad-spectrum IV antibiotics until MRSA is ruled out 01/28: Discussed with Dr. Boudreaux. Consult placed for plastic surgeon Dr. Torres to see tomorrow. Continue antibiotics. No role for surgical drainage. 01/29: Patient was evaluated by plastic surgeon Dr. Torres. Pressure offloading pad sacral region with foam overlay mattress. Patient has mild dementia. Continue Mepilex dressing with bacitracin daily. Nutritional labs ordered. Patient will be discharged to TCU. Follow-up in wound center. Discharged on antibiotic Anal hemorrhoids external: Nontender nonthrombosed. Hemorrhoidal suppository, stool softener ordered. #Hypokalemia: Replaced. Repeat labs shows potassium 3.9 normal #Paroxysmal Atrial Fibrillation -Rate control: Continue diltiazem -Anticoagulation: Continue Eliquis #Hypertension - Continue diltiazem, hold losartan as blood pressure is 119/106 to allow for possible need for pain control #GERD -Continue famotidine #DVT ppx: Patient already on full dose anticoagulation Discharge medication reconciliation done. Discharge follow-up instructions completed. Discharge process discussed with the patient and all questions were answered to patient's satisfaction. Follow with PCP in 1 to 2 weeks Total time spent, exact 35 minutes on discharge meds reconciliation, examination, coordination of care with nurses and ancillary staff, review of imaging and blood test and discussion with the patient on follow-up instructions. Microbiology Past 72 Hours 01/27/25 11:05 Wound - Buttock Gram Stain - Final Laboratory Results 01/26/25 13:50: Sodium 135, Potassium 3.2 L, Chloride 101, Carbon Dioxide 21.5, Anion Gap 13, BUN 13, Creatinine 0.81, Estim Creat Clear Calc 43.85 L, Est GFR (MDRD) Non-Af 71, BUN/Creatinine Ratio 15.5, Glucose 69 L, Calcium 7.7, Total Bilirubin 0.48, AST 21, ALT 15, Alkaline Phosphatase 77, Total Protein 6.3, Albumin 3.2 L, Globulin 3.0, Albumin/Globulin Ratio 1.1 01/26/25 16:25: Urine Color Straw, Urine Clarity Cloudy, Urine pH 6.5, Ur Specific [place] 1.010, Urine Protein 15 H, Urine Glucose (UA) Normal, Urine Ketones 5 H, Urine Occult Blood 25 H, Urine Nitrite Negative, Urine Bilirubin Negative, Urine Urobilinogen Normal, Ur Leukocyte Esterase 25 H, Urine RBC 0-5 SEEN, Urine WBC 0-5 SEEN, Ur Squamous Epith Cells 0-5 SEEN, Urine Bacteria 0 SEEN, Urine Mucus 0 SEEN 01/27/25 05:18: WBC 5.1, RBC 4.13 L, Hgb 12.7, Hct 38.8, MCV 93.9, MCH 30.8, MCHC 32.7, RDW Std Deviation 53.1 H, RDW Coeff of Arben 15.4 H, Plt Count 148 L, MPV 9.5, Immature Gran % (Auto) 0.200, Neut % (Auto) 59.9, Lymph % (Auto) 26.4, [place] % (Auto) 9.8, Eos % (Auto) 2.7, Baso % (Auto) 1.0, Absolute Neuts (auto) 3.1, Absolute Lymphs (auto) 1.35, Nucleated RBC % 0, Sodium 138, Potassium 3.9, Chloride 110 H, Carbon Dioxide 19.4 L, Anion Gap 9, BUN 10, Creatinine 0.68 L, Estim Creat Clear Calc 44.40 L, Est GFR (MDRD) Non-Af 85, BUN/Creatinine Ratio 15.1, Glucose 87, Calcium 8.1 Allergies/Procedures Done in Hospital Allergies oxycodone (From Percocet) Adverse Reaction (Verified 01/26/25 19:33) Upset Stomach Type of Care/Length of Stay Estimated LOS: Convalescent Care Less Than 30 days Type of Care Needed: Skilled Rehab Potential: Good Prognosis: Good Additional Orders/Day of Discharge Day of Discharge: 01/29/25 Dietary and Speech Recommendations Dietitian Recommendations/Changes: Will continue liberalized regular diet with consistency/texture as per OCCUPATIONAL HEALTH PROFESSIONAL. Will continue 120mL ensure plus HP 4 times per day w/ medpass. Monitor blood glucose level and restrict dietary carbohydrate as needed. Trend weights closely and adjust ONS as needed to optimize nutrition and prevent energy/pro depletion. Discharge Plan Admission Admit Date/Time: 01/26/25 17:05 Attending Provider: Carmelo Buckley Primary Care Provider: Bjorn Soares Consulting Providers: Sugar Palma; Gurmeet Torres Instructions Additional Instructions / Restrictions: Continue Mepilex dressing with bacitracin daily Discharge Orders/Prescriptions Prescriptions: New bacitracin zinc 500 unit/gram Ointment 1 applic topical DAILY PRN (Reason: DRESSING CHANGE) Qty: 0 0RF Protocol: *Topical Application Instructions APPLICATION INSTRUCTIONS: Apply as needed to coccyx ulcer with foam dressing Rx Instructions: On sacrococcygeal region, on coccygeal pressure ulcer acetaminophen 500 mg Tablet 1,000 mg PO Q8 Qty: 0 0RF Rx Instructions: For 1 week and then every 8 hourly as needed moderate to severe Eliquis 5 mg Tablet 2.5 mg PO BID Qty: 0 0RF sennosides-docusate sodium [Stimulant Laxative Plus] 8.6-50 mg Tablet 2 tab PO BID Qty: 0 0RF cephalexin 500 mg capsule 500 mg PO TID Qty: 15 0RF doxycycline hyclate 100 mg tablet 100 mg PO BID 7 Days Qty: 14 0RF Continued melatonin 5 mg tablet 5 mg PO HS PRN (Reason: sleep) (DME) Handicap placard See Rx Instructions .Route .MEDSUPPLY Qty: 1 0RF Rx Instructions: Lifetime atorvastatin 10 mg tablet 10 mg PO QHS Qty: 90 3RF diltiazem HCl 120 mg capsule,extended release 24hr 120 mg PO BID Qty: 180 3RF losartan 25 mg tablet 25 mg PO DAILY Qty: 90 3RF potassium chloride 20 mEq tablet extended release 20 meq PO BID Qty: 180 3RF famotidine 40 MG tablet 40 mg PO BID cholecalciferol (vitamin D3) 25 mcg (1,000 unit) capsule 2,000 unit PO DAILY cyanocobalamin (vitamin B-12) 1,000 mcg tablet 2,000 mcg PO DAILY latanoprost 0.005 % Drops 1 drp EACH EYE DAILY dorzolamide-timolol 22.3-6.8 mg/mL Drops 1 drp EACH EYE BID brimonidine 0.2 % drops 1 drp EACH EYE BID Patient Comments: INSTILL 1 DROP INTO BOTH EYES TWICE A DAY doxepin 25 mg capsule 25 mg PO QHS PRN (Reason: anxiety) tramadol 50 mg Tablet 50 mg PO Q6H PRN PRN (Reason: pain) Qty: 10 0RF gabapentin 300 mg capsule 300 mg PO QHS Changed furosemide [Lasix] 40 mg tablet 20 mg PO DAILY Qty: 90 3RF Discontinued Eliquis 5 mg tablet 5 mg PO BID Qty: 180 3RF cetirizine 10 mg tablet 10 mg PO Q12H Patient Comments: PLEASE SEE ATTACHED FOR DETAILED DIRECTIONS Referrals / Follow Up: Bjorn Soares MD [Primary Care Provider, Family Practice] Gurmeet Torres MD [Med Staff - Active Staff, Plastic Surgery] - Within 2 Weeks Referral Note: For stage II coccygeal ulcer Disposition Disposition (needs filled in before D/C Order can be placed): [facility] Facility
[2025-01-29] MEDS: BACITRACIN 15 GM Tube 1 APPLIC TOPICAL (11:44)
--- NOTE | 2025-01-29 11:54 | PCM.DC.SUM ---
Providers Date of Admission: 01/26/25 Date of Discharge: 01/29/25 Primary Care Physician: Dr. Bjorn Soares MD Consultations 01/26/25 18:54 Consult: Onc/Wound/director hr communications Routine Comment: Reason for Consult:: pilonidal area with drainage 01/28/25 10:57 Consult: Plastic Surgery Routine Consulting Provider: Gurmeet Torres Reason for Consult: coccygeal superfiical ulcer EMERGENT Consult: No MD Notified: Yes Date Notified: 01/28/25 Time Notified: 10:58 Method of Notification: Verbal Reason For Visit: BUTTOCK CELLULITIS Diagnosis Discharge Diagnosis (1) Stage 2 skin ulcer of sacral region: Status: Acute Code(s): L98.429 - Non-pressure chronic ulcer of back with unspecified severity Plan: Continue Mepilex dressing with bacitracin daily Plan 84-year-old female came to ED with increased pain weakness on the left side. Episode of dizziness 2 days ago. Over the past few days increased pain in the left buttock and has been in the week with her legs as per daughter. No acute change in urinary symptoms but chronic increased frequency. No dysuria. No fever or chills # Left buttock cellulitis - Patient with cellulitis on the left buttock which is very small with no clinical features of abscess or drainage. - CT of the abdomen pelvis did not note any abscess or acute abnormalities I requested Dr. Boudreaux and she examined. It is local cellulitis area does not think any surgical intervention needed regarding drainage and it might make the condition worse. Continue IV antibiotic. Local wound culture shows 4+ GPC, 1+ epithelial cell, 1+ GPR. Therefore continue broad-spectrum IV antibiotics until MRSA is ruled out 01/28: Discussed with Dr. Boudreaux. Consult placed for plastic surgeon Dr. Torres to see tomorrow. Continue antibiotics. No role for surgical drainage. 01/29: Patient was evaluated by plastic surgeon Dr. Torres. Pressure offloading pad sacral region with foam overlay mattress. Patient has mild dementia. Continue Mepilex dressing with bacitracin daily. Serum albumin low 3.2 suggestive of chronic moderate malnutrition. Prealbumin and A1c ordered Patient will be discharged to TCU. Follow-up in wound center in 2 weeks. Discharged on antibiotic Keflex and doxycycline. Anal hemorrhoids external: Nontender nonthrombosed. Hemorrhoidal suppository, stool softener ordered. #Hypokalemia: Replaced. Repeat labs shows potassium 3.9 normal #Paroxysmal Atrial Fibrillation -Rate control: Continue diltiazem -Anticoagulation: Continue Eliquis #Hypertension - Continue diltiazem, hold losartan as blood pressure is 119/106 to allow for possible need for pain control #GERD -Continue famotidine #DVT ppx: Patient already on full dose anticoagulation Chronic moderate malnutrition: Financial Risk Manager consult Discharge medication reconciliation done. Discharge follow-up instructions completed. Discharge process discussed with the patient and all questions were answered to patient's satisfaction. Follow with PCP in 1 to 2 weeks Total time spent, exact 35 minutes on discharge meds reconciliation, examination, coordination of care with nurses and ancillary staff, review of imaging and blood test and discussion with the patient on follow-up instructions. Microbiology Past 72 Hours 01/27/25 11:05 Wound - Buttock Gram Stain - Final Laboratory Results 01/26/25 13:50: Sodium 135, Potassium 3.2 L, Chloride 101, Carbon Dioxide 21.5, Anion Gap 13, BUN 13, Creatinine 0.81, Estim Creat Clear Calc 43.85 L, Est GFR (MDRD) Non-Af 71, BUN/Creatinine Ratio 15.5, Glucose 69 L, Calcium 7.7, Total Bilirubin 0.48, AST 21, ALT 15, Alkaline Phosphatase 77, Total Protein 6.3, Albumin 3.2 L, Globulin 3.0, Albumin/Globulin Ratio 1.1 01/26/25 16:25: Urine Color Straw, Urine Clarity Cloudy, Urine pH 6.5, Ur Specific [place] 1.010, Urine Protein 15 H, Urine Glucose (UA) Normal, Urine Ketones 5 H, Urine Occult Blood 25 H, Urine Nitrite Negative, Urine Bilirubin Negative, Urine Urobilinogen Normal, Ur Leukocyte Esterase 25 H, Urine RBC 0-5 SEEN, Urine WBC 0-5 SEEN, Ur Squamous Epith Cells 0-5 SEEN, Urine Bacteria 0 SEEN, Urine Mucus 0 SEEN 01/27/25 05:18: WBC 5.1, RBC 4.13 L, Hgb 12.7, Hct 38.8, MCV 93.9, MCH 30.8, MCHC 32.7, RDW Std Deviation 53.1 H, RDW Coeff of Arben 15.4 H, Plt Count 148 L, MPV 9.5, Immature Gran % (Auto) 0.200, Neut % (Auto) 59.9, Lymph % (Auto) 26.4, [place] % (Auto) 9.8, Eos % (Auto) 2.7, Baso % (Auto) 1.0, Absolute Neuts (auto) 3.1, Absolute Lymphs (auto) 1.35, Nucleated RBC % 0, Sodium 138, Potassium 3.9, Chloride 110 H, Carbon Dioxide 19.4 L, Anion Gap 9, BUN 10, Creatinine 0.68 L, Estim Creat Clear Calc 44.40 L, Est GFR (MDRD) Non-Af 85, BUN/Creatinine Ratio 15.1, Glucose 87, Calcium 8.1 Medications at Discharge Home Medications famotidine 40 mg tablet 40 mg PO BID GERD 05/28/17 dorzolamide 22.3 mg-timolol 6.8 mg/mL eye drops 1 drp EACH EYE BID eye heal 12/22/21 latanoprost 0.005 % eye drops 1 drp EACH EYE DAILY eye health 12/22/21 brimonidine 0.2 % eye drops 1 drp EACH EYE BID glaucoma 11/10/22 cholecalciferol (vitamin D3) 25 mcg (1,000 unit) capsule 2,000 unit PO DAILY supplement 11/10/22 cyanocobalamin (vitamin B-12) 1,000 mcg tablet 2,000 mcg PO DAILY supplement 11/10/22 melatonin 5 mg tablet 5 mg PO HS PRN sleep 11/10/22 Handicap placard #1 ea 04/12/23 doxepin 25 mg capsule 25 mg PO QHS PRN anxiety 06/15/24 tramadol 50 mg tablet 50 mg PO Q6H PRN PRN pain #10 tabs 06/18/24 atorvastatin 10 mg tablet 10 mg PO QHS cholesterol #90 tabs 09/04/24 diltiazem HCl 120 mg capsule,extended release 24 hr 120 mg PO BID heart #180 caps 09/04/24 losartan 25 mg tablet 25 mg PO DAILY blood pressure #90 tabs 09/04/24 potassium chloride 20 mEq tablet,extended release 20 meq PO BID #180 tabs 09/04/24 gabapentin 300 mg capsule 300 mg PO QHS pain 09/09/24 acetaminophen 500 mg tablet 1,000 mg (2 x 500 mg) PO Q8 #0 tabs 01/29/25 apixaban 5 mg tablet (Eliquis) 2.5 mg (1/2 x 5 mg) PO BID #0 tabs 01/29/25 bacitracin zinc 500 unit/gram topical ointment 1 applic topical DAILY PRN DRESSING CHANGE #0 grams 01/29/25 cephalexin 500 mg capsule 500 mg PO TID #15 caps 01/29/25 doxycycline hyclate 100 mg tablet 100 mg PO BID 7 days #14 tabs 01/29/25 furosemide 40 mg tablet (Lasix) 20 mg (1/2 x 40 mg) PO DAILY #90 tabs 01/29/25 sennosides 8.6 mg-docusate sodium 50 mg tablet (Stimulant Laxative Plus) 2 tab PO BID #0 tabs 01/29/25 Physical Exam Narrative Seen and examined Patient has mild dementia and does not remember well. Does not remember chronological order of the events. Complain of pain over the sacral area. Physical exam General: Alert, Oriented x3, Cooperative. BMI 22.5 kg/m? HEENT: Atraumatic, PERRLA, EOMI, Normocephalic. Oral: Oral mucosa moist. No Gingival or Mucosal Lesions/ Ulcerations Neck: Supple, No JVD, Negative Carotid Bruits Chest wall/Lungs: Air entry equal in bilateral lung bases. No crepitation/rhonchi Cardiovascular: Regular rate and rhythm, Normal S1,S2, No M/G/R Abdomen: Bowel Sounds Present, Soft, Non Tender, Non-Distended : No dysuria. No renal angle tenderness. No suprapubic tenderness. Extremities: No edema, Capillary Refill Less than 3 Seconds Skin: Dry, nontender, tiny ulcer over coccyx at cleft. no open drainage. No obvious gangrenous skin. Musculoskeletal: No Tenderness to Palpation of Joints or Extremities Neurological: Cranial nerves II-XII grossly intact, DTR 2+/4. No acute focal neurological deficit. Psych/Mental Status: Memory loss/early dementia Weight / BMI Weight Weight: 131 lb 2.801 oz Body Mass Index (BMI) 22.5 ABG / Lab / Microbiology Data 01/29/25 07:22 01/29/25 07:22 Laboratory: Laboratory Results - last 24 hr 01/28/25 16:30: Vancomycin Trough 8.9 01/29/25 07:22: WBC 7.7, RBC 3.78 L, Hgb 11.9 L, Hct 35.2 L, MCV 93.1, MCH 31.5, MCHC 33.8, RDW Std Deviation 53.7 H, RDW Coeff of Arben 15.7 H, Plt Count 177, MPV 9.5, Immature Gran % (Auto) 0.400, Neut % (Auto) 75.1 H, Lymph % (Auto) 13.6 L, [place] % (Auto) 9.3, Eos % (Auto) 0.9, Baso % (Auto) 0.7, Absolute Neuts (auto) 5.8, Absolute Lymphs (auto) 1.04, Nucleated RBC % 0, Sodium 140, Potassium 3.8, Chloride 110 H, Carbon Dioxide 18.9 L, Anion Gap 11, BUN 8, Creatinine 0.92, Estim Creat Clear Calc 38.61 L, Est GFR (MDRD) Non-Af 61, BUN/Creatinine Ratio 8.9 L, Glucose 100 H, Calcium 8.2 Microbiology: Microbiology 01/27/25 11:05 Wound - Buttock Gram Stain - Final 01/27/25 11:05 Wound - Buttock Wound Culture - Preliminary Gram Positive Cocci Gram Positive Cocci#2 D/C Instructions DC O2, CPAP, BIPAP Needs Home O2 Discharge instructions: No Meaningful Use Info Meaningful Use Meaningful Use Diagnoses (Choose all that apply): None applicable Discharge Plan Admission Admit Date/Time: 01/26/25 17:05 Attending Provider: Carmelo Buckley Primary Care Provider: Bjorn Soares Consulting Providers: Sugar Palma; Gurmeet Torres Instructions Additional Instructions / Restrictions: Continue Mepilex dressing with bacitracin daily Discharge Orders/Prescriptions Prescriptions: New bacitracin zinc 500 unit/gram Ointment 1 applic topical DAILY PRN (Reason: DRESSING CHANGE) Qty: 0 0RF Protocol: *Topical Application Instructions APPLICATION INSTRUCTIONS: Apply as needed to coccyx ulcer with foam dressing Rx Instructions: On sacrococcygeal region, on coccygeal pressure ulcer acetaminophen 500 mg Tablet 1,000 mg PO Q8 Qty: 0 0RF Rx Instructions: For 1 week and then every 8 hourly as needed moderate to severe Eliquis 5 mg Tablet 2.5 mg PO BID Qty: 0 0RF sennosides-docusate sodium [Stimulant Laxative Plus] 8.6-50 mg Tablet 2 tab PO BID Qty: 0 0RF cephalexin 500 mg capsule 500 mg PO TID Qty: 15 0RF doxycycline hyclate 100 mg tablet 100 mg PO BID 7 Days Qty: 14 0RF Continued melatonin 5 mg tablet 5 mg PO HS PRN (Reason: sleep) (DME) Handicap placard See Rx Instructions .Route .MEDSUPPLY Qty: 1 0RF Rx Instructions: Lifetime atorvastatin 10 mg tablet 10 mg PO QHS Qty: 90 3RF diltiazem HCl 120 mg capsule,extended release 24hr 120 mg PO BID Qty: 180 3RF losartan 25 mg tablet 25 mg PO DAILY Qty: 90 3RF potassium chloride 20 mEq tablet extended release 20 meq PO BID Qty: 180 3RF famotidine 40 MG tablet 40 mg PO BID cholecalciferol (vitamin D3) 25 mcg (1,000 unit) capsule 2,000 unit PO DAILY cyanocobalamin (vitamin B-12) 1,000 mcg tablet 2,000 mcg PO DAILY latanoprost 0.005 % Drops 1 drp EACH EYE DAILY dorzolamide-timolol 22.3-6.8 mg/mL Drops 1 drp EACH EYE BID brimonidine 0.2 % drops 1 drp EACH EYE BID Patient Comments: INSTILL 1 DROP INTO BOTH EYES TWICE A DAY doxepin 25 mg capsule 25 mg PO QHS PRN (Reason: anxiety) tramadol 50 mg Tablet 50 mg PO Q6H PRN PRN (Reason: pain) Qty: 10 0RF gabapentin 300 mg capsule 300 mg PO QHS Changed furosemide [Lasix] 40 mg tablet 20 mg PO DAILY Qty: 90 3RF Discontinued Eliquis 5 mg tablet 5 mg PO BID Qty: 180 3RF cetirizine 10 mg tablet 10 mg PO Q12H Patient Comments: PLEASE SEE ATTACHED FOR DETAILED DIRECTIONS Referrals / Follow Up: Bjorn Soares MD [Primary Care Provider, Family Practice] Gurmeet Torres MD [Med Staff - Active Staff, Plastic Surgery] - Within 2 Weeks Referral Note: For stage II coccygeal ulcer Disposition Disposition (needs filled in before D/C Order can be placed): Intermediate Facility Charges/Coding Visit Charges Inpatient E&M: 52904 Disch Hosp >30min
--- NOTE | 2025-01-29 12:08 | CASEMGMT ---
Social Work Pt is discharged to [facility] today. SW completed the hospital exemption in the [facility] system. D/C manager planning Beatriz completing the discharge to [facility], sarah. COURTNEY Navarro
--- NOTE | 2025-01-29 12:28 | CASEMGMT ---
Discharge Planning Discharge orders, signed med list, and transport time sent to [facility]. Physicians will transport pt by cot at 2p. Nursing, SW, pt, and her DIL (Geno) updated. VM left for pts son (James). Beatriz Chatman DC Planning Asst.
--- NOTE | 2025-01-29 13:17 | PHA.DC.MR.R ---
Pharmacy [place] Med Reconciliation Pharmacy Service has performed discharge medication reconciliation for this patient. The patient's discharge medication list was reviewed for discrepancies and discrepancies were resolved. Medications at Discharge Home Medications famotidine 40 mg tablet 40 mg PO BID GERD 05/28/17 dorzolamide 22.3 mg-timolol 6.8 mg/mL eye drops 1 drp EACH EYE BID eye heal 12/22/21 latanoprost 0.005 % eye drops 1 drp EACH EYE DAILY eye health 12/22/21 brimonidine 0.2 % eye drops 1 drp EACH EYE BID glaucoma 11/10/22 cholecalciferol (vitamin D3) 25 mcg (1,000 unit) capsule 2,000 unit PO DAILY supplement 11/10/22 cyanocobalamin (vitamin B-12) 1,000 mcg tablet 2,000 mcg PO DAILY supplement 11/10/22 melatonin 5 mg tablet 5 mg PO HS PRN sleep 11/10/22 Handicap placard #1 ea 04/12/23 doxepin 25 mg capsule 25 mg PO QHS PRN anxiety 06/15/24 tramadol 50 mg tablet 50 mg PO Q6H PRN PRN pain #10 tabs 06/18/24 atorvastatin 10 mg tablet 10 mg PO QHS cholesterol #90 tabs 09/04/24 diltiazem HCl 120 mg capsule,extended release 24 hr 120 mg PO BID heart #180 caps 09/04/24 losartan 25 mg tablet 25 mg PO DAILY blood pressure #90 tabs 09/04/24 potassium chloride 20 mEq tablet,extended release 20 meq PO BID #180 tabs 09/04/24 gabapentin 300 mg capsule 300 mg PO QHS pain 09/09/24 acetaminophen 500 mg tablet 1,000 mg (2 x 500 mg) PO Q8 #0 tabs 01/29/25 apixaban 5 mg tablet (Eliquis) 2.5 mg (1/2 x 5 mg) PO BID #0 tabs 01/29/25 bacitracin zinc 500 unit/gram topical ointment 1 applic topical DAILY PRN DRESSING CHANGE #0 grams 01/29/25 cephalexin 500 mg capsule 500 mg PO TID #15 caps 01/29/25 doxycycline hyclate 100 mg tablet 100 mg PO BID 7 days #14 tabs 01/29/25 furosemide 40 mg tablet (Lasix) 20 mg (1/2 x 40 mg) PO DAILY #90 tabs 01/29/25 sennosides 8.6 mg-docusate sodium 50 mg tablet (Stimulant Laxative Plus) 2 tab PO BID #0 tabs 01/29/25
[2025-01-29 13:37] VITALS: BP 125/72; PULSE 64; RESP 16; TEMP 37.1; O2SAT 98
[2025-01-30 08:09] LABS: Prealbumin 8 mg/dL (9-32)
== END 2025-01-29 15:12 | disposition skilled nursing facility (03) | DRG 603 ==
LOC: ED 16:29 → MS3 17:10
PROVIDERS: Admitting Provider Internal Medicine; Emergency Provider Emergency Medicine; PCP Family Medicine; Visit Provider Internal Medicine
DX: L03.317 Cellulitis of buttock (principal); E44.0 Moderate protein-calorie malnutrition; L89.152 Pressure ulcer of sacral region, stage 2; N18.30 Chronic kidney disease, stage 3 unspecified; F03.A0 Unspecified dementia, mild, without behavioral disturbance, psychotic disturbance, mood disturbance, and anxiety; I12.9 Hypertensive chronic kidney disease with stage 1 through stage 4 chronic kidney disease, or unspecified chronic kidney disease; I48.0 Paroxysmal atrial fibrillation; E78.00 Pure hypercholesterolemia, unspecified; K21.9 Gastro-esophageal reflux disease without esophagitis; K64.4 Residual hemorrhoidal skin tags; E87.6 Hypokalemia; Z87.891 Personal history of nicotine dependence; Z79.01 Long term (current) use of anticoagulants; Z79.899 Other long term (current) drug therapy; Z90.710 Acquired absence of both cervix and uterus; Z85.828 Personal history of other malignant neoplasm of skin; Z90.49 Acquired absence of other specified parts of digestive tract; Z98.41 Cataract extraction status, right eye; Z98.42 Cataract extraction status, left eye; Z68.22 Body mass index [BMI] 22.0-22.9, adult
CPT/HCPCS: 36415; 73030; 74177; 80048; 80053; 80202; 81001; 83036; 84134; 85025; 87070; 87077; 87186; 87205; 97162; 97165; 99284; Q9967